=== PATIENT | female | born 1955 | race Caucasian/White ===

== ENCOUNTER 2022-03-31 14:38 | Outpatient (CLI) | payer MEDICARE, BC, SELFPAY ==
--- OUTSIDE RECORDS SUMMARY | 2022-03-31 14:44 | XMS_ITS | Encounter Summary ---
:1955 Author Organization [facility] Address [address] [place] [address] Care Team Providers Name Role Phone Unavailable Primary Care Provider Unavailable Reason for Visit Reason Comments Med Refill Encounter Details Date Type Department Care Team Description 03/18/2022 Refill Department of Radiation Summer Pérez P.A .-C., Med Refill Oncology in [facility] [address] [facility] [address] [place] [address] [place] [address] [phone] Social History Tobacco Use Types Packs/Day Years Used Date Smoking Tobacco: Every Day Cigarettes 0.8 43 S tarted: 08/15/1974; Last attempted to qu it: 03/13/2019 Smokeless Tobacco: Never Alcohol Use Standard Drinks/Week Comments Not Currently 0 (1 standard drink = 0.6 oz pure alcoho l) Alcohol Habits Answer Date Recorded How often do you have a drink containing alcohol? Never 02/21/2019 How many drinks containing alcohol do you have on a typical Not asked day when you are drinking? How often do you have six or more drinks on one occasion? No t asked Comment: Not asked Social Isolation Answer Date Recorded In a typical week, how many times do you More than three josé miguel es a week 02/21/2019 talk on the phone with family, friends, or neighbors? How often do you get together with friends Once a week 02/21/2019 or relatives? How often do you attend orthodoxy or Never 2018 jew services? Do you belong to any clubs or No 02/21/2019 organizations such as orthodoxy groups, unions, fraternal or athletic groups, or school groups? How often do you attend meetings of the Never 02/21/2019 clubs or organizations you belong to? Are you now , , , 02/21/2019 , never or living with a partner? Physical Activity Answer Date Recorded On average, how many days per week do you engage in moderate to 0 days 02/21/2019 strenuous exercise (like walking fast, running, jogging, dancing, swimming, biking, or other activities that cause a light or heavy sweat)? On average, how many minutes do you engage in exercise at th is 0 min 02/21/2019 level? Stress Answer Date Recorded Do you feel stress - tense, restless, nervous, or To some ex tent 02/21/2019 anxious, or unable to sleep at night because your mind is troubled all the time - these days? Financial Resource Strain Answer Date Recorded How hard is it for you to pay for the very basics like Somew hat hard 02/21/2019 food, housing, medical care, and heating? Food Insecurity Answer Date Recorded Within the past 12 months, you worried that your food would Never true 02/21/2019 run out before you got money to buy more. Within the past 12 months, the food you bought just didn't N ever true 02/21/2019 last and you didn't have money to get more. Transportation Needs Answer Date Recorded In the past 12 months, has lack of transportation kept you f rom No 02/21/2019 medical appointments or from getting medications? In the past 12 months, has lack of transportation kept you f rom No 02/21/2019 meetings, work, or getting things needed for daily living? Sex Assigned at Date Recorded Not on file documented as of this encounter Plan of Treatment Upcoming Encounters Date Type Specialty Care Team Description 04/22/2022 Clinical Admitting/Central Communication Scheduling 04/26/2022 Appointment Radiology Mark Eastman M.D., M.S. [address] [place] [phone] 04/26/2022 Office Visit Otorhinolaryngology Roxanne Lanza APRN, C.N.P. [address] [place] [phone] 04/28/2022 Appointment Radiation Oncology Ursula Aguirre M.D. [address] [place] [phone] documented as of this encounter Visit Diagnoses Not on filedocumented in this encounter
--- OUTSIDE RECORDS SUMMARY | 2022-03-31 14:44 | XMS_ITS | Encounter Summary ---
:1955 Author Organization [facility] Address [address] [place] [address] Care Team Providers Name Role Phone Unavailable Primary Care Provider Unavailable Reason for Visit Reason Comments Post-op Outpatient (Routine) - Closed Specialty Diagnoses / Procedures Referred By Contact Refer red To Contact Vascular Surgery Carlotta Beth APRN, [facility] C.N.P., M.S.N. [address] [place] [phone] Referral ID Status Reason Start Date Expiration Date Visits Requ ested Visits Authorized [id number] Closed 11/05/2021 11/05/2022 1 1 Encounter Details Date Type Department Care Team Description 11/13/2021 Office Visit Division of Vascular Remington Beth i, APRN, C.N.P., M.S.N. [address] [place] [phone] Wound Postoperative and Endovascular Ema Lobato APRN, C.N.P., M.S.N. [address] [place] [phone] Exam (Primary Dx) Surgery in [place], [place] [address] [place] [phone] Social History Tobacco Use Types Packs/Day Years [...] or relatives? How often do you attend hinduism or Never 2018 mormonism services? Do you belong to any clubs or No 02/21/2019 organizations such as hinduism groups, unions, fraternal or athletic groups, or [...] on file documented as of this encounter Patient Instructions Patient InstructionsEma Lobato APRN, C.N.P., M.S.N. - 11/13/2021 10:20 AM CDT HYDROFERA DRESSING Remove Hydrofera Blue dressing from the package and apply the dry dressing to the wound. If the wound presents with surrounding erythema (redness) or rolled wound edges, the dressing should be larger than the wound to cover the periwound area. In other wounds, the dressing may be cut to fit the wound bed. Cover with a secondary dressing to prevent displacement and to maintain moisture content. - The first dressing change should occur at 24 hours. Examine the area of the dressing in contact with the wound bed. - If the dressing has retained its blue color where it is in contact with the wound, apply a new dressing and leave in place for up to 72 hours. - If the dressing has turned from blue to white or lightened in color, the dressing should be changed every 24 hours until it retains its blue color. The dressing should be changed if it turns white orupon strikethrough of drainage. - Do not allow the dressing to completely dry out. The dressing should be rehydrated as needed. If the Hydrofera Blue dressing dries out, rehydration with sterile saline or sterile water is recommendedprior to removal. Please send an image of the groin site for our review in approximately 1 week. At that time a memberof the team will reach out to you to discuss further follow-up. Reach out sooner with questions or concerns. A follow-up appointment with your primary care provider (PCP) should be arranged immediately when you return home. This will give you the opportunity to discuss your hospital course and share any important current care needs with your PCP. A copy of the discharge summary has been faxed for their review. Your primary care provider is your long-term healthcare provider, please follow-up with them for any medication refills, home care assistance, or any ongoing chronic medical conditions as needed. At the time of dismissal, pain medication (examples: oxycodone, Dilaudid, Tramadol, [place], etc.) will be prescribed to you if needed. Duration will be determined on a izvr-dj-ypsh basis and will notexceed 2 weeks. Thereafter, you will need to be evaluated by your primary care provider or your surgical team if operative pain persists. Should you need to contact Dr. Eastman or his service in the interim, you may do so through his medical staff services coordinator at during normal business hours of 8 to 5 Tuesday through Tuesday (excluding holidays) or, in an emergency situation, through the [facility] light rail train operator at (Service pager: [phone]). documented in this encounter Progress Notes Ema Lobato APRN, C.Boyd, M.S.N. - 11/13/2021 10:20 AM CDT Obdulia Narayan : 1955 Visit Date: 12/11/21 SUBJECTIVE Obdulia Narayan is a 66 [address] of Dr. Eastman who underwent endovascular abdominal aortic aneurysm repair and left common femoral endarterectomy with bovine pericardial patch angioplasty on 10/22/2021. She was dismissed to home postoperatively. Ms. Narayan returns to the [facility] today for wound assessment. Ms. Narayan has been doing well since her dismissal from the hospital. Left groin incision continuesto be treated with Hydrofera Blue. This has been working well. She denies fever, chills or night sweats. OBJECTIVE VITAL SIGNS There were no vitals filed for this visit. PHYSICAL EXAM Physical Exam Incision: Opening at left groin incision measures 1 cm L x 1 cm W x 0.5 cm D. Wound bed is 100% healthy pink granulation tissue. No tunneling or undermining noted. Small fragment stitch material visible at the 6 o'clock position, not amendable to removal at this time. Nga-wound skin is clean dry and intact. No signs or symptoms concerning for infection. Alert and oriented x3, nontoxic in appearance, resting comfortably. VASCULAR EXAM: Left lower extremity warm and well perfused. Brisk capillary refill. Pulses Exam IMAGING/Diagnostic Studies Pertinent recent imaging and laboratory studies have been reviewed and discussed with the patient. ASSESSMENT / PLAN Ms. Narayan is recovering well postoperatively. Postoperative instructions reviewed. Patient instructed to follow-up with PCP for ongoing medical care and medication adjustments and refills. I have asked her to continue with Hydrofera. She should send us updated images of the groin site in approximately one weeks time. Contact her with ongoing recommendations. Provided with our contact information and she should reach out to us any time with questions or concerns. Ms. Narayan rest understanding, wasin agreement with the plan, and had no further needs at this time. DIAGNOSIS: #1 Wound Postoperative Exam documented in this encounter Plan of Treatment Upcoming Encounters Date Type Specialty Care Team Description 04/22/2022 Clinical Admitting/Central Communication Scheduling 04/26/2022 Appointment Radiology Mark Eastman M.D., M.S. [address] [place] [phone] 04/26/2022 Office Visit Otorhinolaryngology Roxanne Lanza APRN, C.N.P. [address] [place] [phone] 04/28/2022 Appointment Radiation Oncology Ursula Aguirre M.D. [address] [place] [phone] documented as of this encounter Visit Diagnoses Diagnosis Wound Postoperative Exam - Primary documented in this encounter
--- OUTSIDE RECORDS SUMMARY | 2022-03-31 14:44 | XMS_ITS | Encounter Summary ---
:1955 Author Organization [facility] Address [address] [place] [address] Care Team Providers Name Role Phone Unavailable Primary Care Provider Unavailable Encounter Details Date Type Department Care Team Description 11/03/2021 Clinical Communication Division of Vascular and Sanna Newman, Endovascular Surgery in [place], [place] [address] [facility] [address] [place] [phone] Social History Tobacco Use Types Packs/Day Years [...] or relatives? How often do you attend moravian or Never 2018 mormon services? Do you belong to any clubs or No 02/21/2019 organizations such as moravian groups, unions, fraternal or athletic groups, or [...] on file documented as of this encounter Miscellaneous Notes Telephone Encounter - Sanna Newman P.A.-C. - 11/03/2021 1:06 PM CDT Images from the original note were not included. Chief Complaint Telephone call. Patient not seen. History of Present Illness Ms. Narayan is a [address] Eastman who underwent endovascular abdominal aortic aneurysm repair and left common femoral endarterectomy with bovine pericardial patch angioplasty on 10/22/2021. She tolerated the procedure well and was dismissed from the hospital home on 10/24/2021. Ms. Narayan was contacted today in post-hospital follow-up. I spoke with her oqrgaqdn-mc-ycc Darlin over the phone. Ms. Narayan has overall been doing well. She is tolerating a regular diet without nausea or vomiting. She is ambulating without lightheadedness or dizziness. Ms. Narayan forgot to take off the Mepilex border on 10/30/2021. She saw her primary care provider yesterday 11/02/2021, who removed the Mepilex b order. Darlin endorsed that her left incision ???looked gross and wet.?? Her primary care provider did not believe the incision looked infected, however, prescribed antibiotics just in case. Darlin was unable to recall what antibiotic was prescribed. I asked Darlin to send a photo of her left groin incision for review. Ms. Narayan did shower on Tuesday, so it is possible that the Mepilex border got wet on Tuesday causing the dressing and subsequent groin to be very moist/wet. Assessment/Plan Ms. Narayan is doing well postoperatively, however, her left groin incision is not healing well and has opened up in several areas. Recommendations were made to present to the outpatient clinic for further evaluation. Darlin is able to bring her in tomorrow 11/04/2021 for evaluation. Darlin was instructed to place a dry gauze over the incision and change daily or as needed. Darlin expressed understandingand was in agreement with the plan. Sanna Newman PA-C [facility] Department of Vascular and Endovascular Surgery Telephone Encounter - Sanna Newman P.A.-C. - 11/03/2021 1:06 PM CDT ----- Message from Rachel Harper APRN, C.N.P., M.S.N. sent at 10/23/2021 11:57 AM CAREER AND GUIDANCE COUNSELOR ----- Regarding: FU CALL documented in this encounter Plan of Treatment Upcoming Encounters Date Type Specialty Care Team Description 04/22/2022 Clinical Admitting/Central Communication Scheduling 04/26/2022 Appointment Radiology Mark Eastman M.D., M.S. [address] [place] [phone] 04/26/2022 Office Visit Otorhinolaryngology Roxanne Lanza, SHELLFISH MANAGER, C.N.P. [address] [place] [phone] 04/28/2022 Appointment Radiation Oncology Ursula Aguirre M.D. [address] [place] [phone] documented as of this encounter Visit Diagnoses Not on filedocumented in this encounter
--- OUTSIDE RECORDS SUMMARY | 2022-03-31 14:44 | XMS_ITS | Encounter Summary ---
:1955 Author Organization [facility] Address [address] [place] [address] Care Team Providers Name Role Phone Unavailable Primary Care Provider Unavailable Encounter Details Date Type Department Care Team Description 10/29/2021 Hospital Encounter Department of Summer Pérez Hypothy roidism Laboratory Medicine P.Marilou., M.S . Secondary in [place], [address] [place] [address] [facility] [address] [place], [place] [phone] (Work) [phone] Social History Tobacco Use Types Packs/Day Years [...] or relatives? How often do you attend scientology or Never 2018 latter-day services? Do you belong to any clubs or No 02/21/2019 organizations such as scientology groups, unions, fraternal or athletic groups, or [...] on file documented as of this encounter Medications at Time of Discharge Medication Sig Dispensed Refills Start Date End Date acetaminophen (TYLENOL) 500 Take 2 tablets 0 10/13 mg tablet (1,000 mg total) by mouth every 6 (six) hours as needed for pain. albuterol 90 mcg/actuation Inhale 2 puffs 2 0 inhaler (two) times a day. aspirin 81 mg chewable Chew 81 mg every 0 tablet evening. Clare Aspirin atorvastatin (LIPITOR) 20 Take 1 tablet (20 90 tablet 3 11/202110/16/2022 mg tablet mg total) by mouth daily. budesonide-formoteroL Inhale 2 puffs 2 0 (SYMBICORT) 80-4.5 (two) times a day. mcg/actuation inhaler Rinse mouth with water after use to reduce aftertaste and incidence of candidiasis. Do not swallow. cetirizine (ZyrTEC) 10 mg Take 10 mg by 0 tablet mouth every evening. diaper,brief,adult,disposab Bag: (36 each) 36 each 03/16 le (DEPEND UNDERWEAR FOR WOMEN XL) misc famotidine (PEPCID) 20 mg Take 20 mg by 0 tablet mouth at bedtime. fluticasone propionate Administer 1 spray 0 01/13 (FLONASE) 50 mcg/actuation into each nostril nasal spray daily as needed for allergies. hydroCHLOROthiazide Take 25 mg by 11 02/18/2019 (HYDRODIURIL) 25 mg tablet mouth every evening. losartan (COZAAR) 100 mg Take 100 mg by 0 020 tablet mouth every evening. oxyCODONE (ROXICODONE) 5 mg Take 1 tablet (5 8 tablet 0 immediate release mg total) by mouth tabletIndications: Acute every 4 (four) Pain hours as needed for moderate pain or score 4-6 of 10 Indication: Acute Pain. polyethylene glycol Take 1 packet by 0 10/23/2021 (MIRALAX) 17 gram powder mouth daily as packet needed for constipation. Dissolve each 17 g dose in 240 mLs (8 ounces) of beverage. POTASSIUM ORAL Take 99 mg by 0 mouth every evening. sennosides-docusate sodium Take 1 tablet by 0 06/2022 (SENOKOT-S) 8.6-50 mg per mouth at bedtime tablet as needed for constipation. simvastatin (ZOCOR) 20 mg Take 20 mg by 0 tablet mouth at bedtime. levothyroxine (SYNTHROID, Take 1 tablet (50 30 tablet 1 10/202101/14/2022 LEVOTHROID) 50 mcg tablet mcg total) by mouth every morning before breakfast. documented as of this encounter Plan of Treatment Upcoming Encounters Date Type Specialty Care Team Description 04/22/2022 Clinical Admitting/Central Communication Scheduling 04/26/2022 Appointment Radiology Mark Eastman M.D., M.S. [address] [place] [phone] 04/26/2022 Office Visit Otorhinolaryngology Roxanne Lanza APRN, C.NDori [address] [place] [phone] 04/28/2022 Appointment Radiation Oncology Ursula Aguirre M.D. [address] [place] [phone] documented as of this encounter Procedures Procedure Name Priority Date/Time Associated Diagnosis Comme nts ME MICROSOMAL AB Routine 10/30/2021 7:09 PM Resul ts for this EA/TPO CDT procedure are i n the results section. ME T4 FREE Routine 10/29/2021 12:47 Results for this PM CDT procedure are i n the results section. THYROID FUNCTION Routine 10/29/2021 12:47 Hypothyroidism Resul ts for this CASCADE, S PM CDT Secondary procedure are i n the results section. documented in this encounter Results Thyroperoxidase (TPO) Antibodies, Serum (10/30/2021 7:09 PM CDT) Patholo gist Method Time Signature Thyroperoxidase Ab, 1.1 <9.0 11/02/2021 DTL S IU/mL 8:15 AM CDT Specimen Anatomical Collection Method Collection Time Receive d Time (Source) Location / / Volume Laterality Blood 10/30/2021 7:09 PM 2 1:57 CDT PM CDT Summer Pérez P.A.-C., M.S. LAB BLOOD NON ADD-ON Performing Organization Address City/State/ZIP Code Phon e Number [facility] - [address] [place] [address] [phone] [facility] [place] [address] Laboratories-[employer] [facility] 200 [facility] T4 (Thyroxine), Free, Serum (10/29/2021 12:47 PM CDT) P athologist Signature T4 (Thyroxine), 1.1 0.9 - 1.7 10/29/2021 OWAT Free, S ng/dL 5:36 PM CDT Comment: Biotin has been identified by the tanesha laureano as a potential interfering substance. ??Higher concentr ations of biotin may be found in multivitamins, hair/nail supple ments, and workout supplements. ??If the result does not ma tch clinical observations, repeat testing after patient refrains fr om the use of supplements for at least 12 hours. Specimen Anatomical Collection Method Collection Time Receive d Time (Source) Location / / Volume Laterality Blood 10/29/2021 12:47 10/29/2021 3:29 PM CDT PM CDT Summer Pérez P.A.-C., M.S. LAB BLOOD ADD-ON Performing Organization Address City/[facility]/ZIP Code Phon e Number [facility] [address] [place] [address] [place] [address] System in [place] [address] [place] [address] (ABNORMAL) Thyroid Function [place] (10/29/2021 12:47 PM CDT) P athologist Signature TSH, Sensitive 7.0 (H) 0.3 - 4.2 10/29/2021 OW[place] mIU/L 5:10 PM CDT Specimen Anatomical Collection Method Collection Time Receive d Time (Source) Location / / Volume Laterality Blood (Blood, 10/29/2021 12:47 10/29/2021 3:29 Venous) PM CDT PM CDT Summer Pérez P.A.-C., M.S. LAB BLOOD ADD-ON Performing Organization Address City/[facility]/ZIP Code Phon e Number [facility]- [address] [place] [phone] [place] [address] System in [address] documented in this encounter Visit Diagnoses Diagnosis Hypothyroidism Secondary documented in this encounter
--- OUTSIDE RECORDS SUMMARY | 2022-03-31 14:44 | XMS_ITS | Clinical Summary ---
:1955 Author Organization [facility] Address [address] [place] [address] Care Team Providers Name Role Phone Unavailable Primary Care Provider Unavailable Source Comments Patient records contain information from all sites at [facility]. For routine questions regarding patient records, call [phone] during business hours, M-F 8:00 AM - 5:00 PM Central Time. Record requests for emergency care only can be directed to [phone] at any time.[facility] Allergies Active Allergy Reactions Severity Noted Date Comments Penicillins Rash High 02/21/2019 Medications Medication Sig Dispensed Refills Start Date End Date Status hydroCHLOROthiazide Take 25 mg by 11 02/18/2019 Active (HYDRODIURIL) 25 mg mouth every tablet evening. aspirin 81 mg chewable Chew 81 mg every 0 Active tablet evening. Clare Aspirin diaper,brief,adult,dispos Bag: (36 each) 36 each 1 9 Active able (DEPEND UNDERWEAR FOR WOMEN XL) misc losartan (COZAAR) 100 mg Take 100 mg by 0 01/08/2020 Active tablet mouth every evening. cetirizine (ZyrTEC) 10 mg Take 10 mg by 0 Active tablet mouth every evening. POTASSIUM ORAL Take 99 mg by 0 A ctive mouth every evening. albuterol 90 Inhale 2 puffs 2 0 Active mcg/actuation inhaler (two) times a day. budesonide-formoteroL Inhale 2 puffs 2 0 Active (SYMBICORT) 80-4.5 (two) times a mcg/actuation inhaler day. Rinse mouth with water after use to reduce aftertaste and incidence of candidiasis. Do not swallow. famotidine (PEPCID) 20 mg Take 20 mg by 0 Active tablet mouth at bedtime. fluticasone propionate Administer 1 0 01/13/2019 Active (FLONASE) 50 spray into each mcg/actuation nasal spray nostril daily as needed for allergies. atorvastatin (LIPITOR) 20 Take 1 tablet 90 tablet 3 10/16/2021 Active mg tablet (20 mg total) by 3 mouth daily. simvastatin (ZOCOR) 20 mg Take 20 mg by 0 Active tablet mouth at bedtime. oxyCODONE (ROXICODONE) 5 Take 1 tablet (5 8 tablet 0 10/24/19 22 Active mg immediate release mg total) by tabletIndications: Acute mouth every 4 Pain (four) hours as needed for moderate pain or score 4-6 of 10 Indication: Acute Pain. Additional Information Patient not taking. Reported on 11/05/2021 polyethylene glycol (MIRALAX) Take 1 packet by mouth daily as 0 10/23/2021 Active 17 gram powder packet needed for constipation. Dissolve each 17 g dose in 240 mLs (8 ounces) of beverage. Additional Information Patient not taking. Reported on 11/05/2021 sennosides-docusate sodium Take 1 tablet by mouth at 0 10/23/2021 Active (SENOKOT-S) 8.6-50 mg per tablet bedtime as needed for constipation. Additional Information Patient not taking. Reported on 11/05/2021 acetaminophen Take 2 tablets 0 10/23/2021 Active (TYLENOL) 500 mg (1,000 mg total) tablet by mouth every 6 (six) hours as needed for pain. sulfamethoxazole-trime Take 1 tablet by 0 11/02/2021 Active thoprim (BACTRIM DS) mouth 2 (two) 800-160 mg per tablet times a day. 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 10/22 Aneurysm Abdominal Aortic Without Rupture 09/15/2021 Overview: Added automatically from request for sultana low [id number] Dysphonia 06/12/2020 Dysphagia 08/02/2019 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 03/04/2022 Clinical Radiation Oncology Summer Pérez, Communication P.A.-C., M.S. 02/26/2022 Hospital Encounter Laboratory Summer Pérez, Malignan t Neoplasm Of Supraglottic (HCC); Medicine P.A.PatsyC., M.S. 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 01/27/2022 Hospital Encounter Radiation Oncology Timothy, Mal ignant Neoplasm Of Supraglottic (HCC) (Primary Dx); Ursula Bacon, Hypothyroidism Secondary M.D. 01/21/2022 Clinical Radiation Oncology Summer Pérez, Communication P.A.-C., M.S. 01/19/2022 Hospital Encounter Laboratory Summer Pérez, Hypothyr oidism Medicine P.A.-C., M.S. Secondary 01/14/2022 Refill Radiation Oncology Summer Pérez, Med Refi ll P.A.-C., M.S. from Last 3 Months Social History Tobacco Use Types Packs/Day Years [...] or relatives? How often do you attend hoahaoism or Never 2018 lutheran services? Do you belong to any clubs or No 02/21/2019 organizations such as hoahaoism groups, unions, fraternal or athletic groups, or [...] Assigned at Date Recorded Not on file Last Filed Vital Signs Vital Sign Reading Time Taken Comments Blood Pressure 160/71 01/27/2022 10:22 AM CDT Pulse 85 01/27/2022 10:22 AM CDT Temperature 36.4 ??C (97.5 ??F) 01/27/2022 10:22 AM CDT Respiratory Rate 17 10/24/2021 12:05 PM SONAR TECHNICIAN Oxygen Saturation 96% 10/24/2021 12:04 PM SONAR TECHNICIAN Inhaled Oxygen Concentration - - Weight 83.1 kg (183 lb 3.2 oz) 01/27/2022 10:22 AM CDT Height 164 cm (5' 4.57) 10/22/2021 9:46 AM SONAR TECHNICIAN Body Mass Index 30.9 10/22/2021 9:46 AM SONAR TECHNICIAN Plan of Treatment Upcoming Encounters Date Type Specialty Care Team Description 04/22/2022 Clinical Admitting/Central Communication Scheduling 04/26/2022 Appointment Radiology Mark Eastman M.D., M.S. [address] [place] [address] [phone] 04/26/2022 Office Visit Otorhinolaryngology Roxanne Lanza, EXECUTIVE VICE PRESIDENT, C.N.P. [address] [place] [address] [phone] 04/28/2022 Appointment Radiation Oncology Ursula Aguirre M.D. [address] [place] [address] [phone] Health Maintenance Due Date Last Done Comments Bone Density Scan (Osteoporosis 1955 Screen) CT Colonography 1955 Cervical Cancer Screening 1955 Cologuard 1955 Colonoscopy 1955 Colorectal Cancer Screening 1955 Diabetic Office Visit with Foot 1955 Exam Dilated Eye Exam 1955 FIT 1955 Hemoglobin A1C 1955 Hepatitis C Screening 1955 Tobacco Cessation counseling 1955 Urine Microalbumin 1955 Pneumococcal vaccine (65+ years) 1962 (1 - PCV) DTaP,Tdap,and Td Vaccines (1 - 1975 Tdap) Zoster Vaccines (1 of 2) 1975 Mammogram 04/24/2015 04/24/2014, 04/17/2013 Lung Cancer Screening 02/22/2020 02/21/2019 COVID-19 Vaccine (3 - Pfizer risk 02/17/2021 01/20/2021, series) Depression Screening (Annual 08/15/2021 PHQ-2) Office Visit for Blood Pressure 01/16/2022 10/16/2021 Check / Re-check Influenza Vaccine (#1) 2022 06/20/2018, 06/24/2011 Creatinine Level 10/23/2022 10/23/2021, 09/22/2021, 09/15/2021, Additional history exists Potassium Level 10/23/2022 10/23/2021, 09/22/2021, 04/23/2019, Additional history exists Sodium Level 10/23/2022 10/23/2021, 10/22/2021, 09/22/2021, Additional history exists Thyroid Stimulating Hormone (TSH) 02/26/2023 02/26/2022, , test for thyroid function 10/29/2021, Additional history exists Fasting Lipid Panel 09/22/2026 09/22/2021 Fall Risk Screen (Annual) Completed 10/22/2021 Medical Devices Implanted Type Area Computing Consultant Device Identifier Shelf Model / Expiration Serial / Date Lot Breast Other Breast Right: Other Breast Clp Hrzn Ti 6 Clp David - [id number] Hardware ASCENDANT [id number] [id number] 06/21/2026 [id number] / Implanted: Qty: 2 on 10/22/2021 by Mark Bartlett M.D., M.S. at [facility] e.g. / pins/screws [id number] /rods Grft Vsc Bov 0.8x8 - [id number] Mesh or Synovis 04/29/2026 [id number] / Implanted: Qty: 1 on 10/22/2021 by Mark Bartlett M.D., M.S. at [facility] Patch / [id number] Grft Exc Aaa Ext 12x12 - [id number] - [id number] Vascular [place] 01/03/2023 [id number] / Implanted: Qty: 1 on 10/22/2021 by Mark Bartlett M.D., M.S. at [facility] Graft [id number] / Explanted Type Area Computing Consultant Device Shelf Model / Identifier Expiration Date Ser ial / Lot Mesh Or Patch Mesh or Abdomen Patch Procedures Procedure Name Priority Date/Time Associated Diagnosis Comme nts THYROID-STIMULATING Routine 02/26/2022 9:43 AM Malignant Neopl asm Of Results for this HORMONE-SENSITIVE CDT Supraglottic ( HCC) procedure are in (S-TSH) Hypothyroidism the results Secondary section. AL T4 FREE Routine 01/19/2022 9:42 AM Results f or this CDT procedure are i n the results section. AL MICROSOMAL AB Routine 01/19/2022 9:42 AM Resul ts for this EA/TPO CDT procedure are i n the results section. THYROID FUNCTION Routine 01/19/2022 9:42 AM Hypothyroidism Res ults for this CASCADE, S CDT Secondary procedure are i n the results section. from Last 3 Months Results (ABNORMAL) S-TSH (Thyroid-Stimulating Hormone - Sensitive) (02/26/2022 9:43 AM CDT) P athologist Signature TSH, Sensitive 5.7 (H) 0.3 - 4.2 02/26/2022 OWAT mIU/L 11:40 AM CDT Specimen Anatomical Collection Method Collection Time Receive d Time (Source) Location / / Volume Laterality Blood (Blood, 02/26/2022 9:43 AM 02/27/20 Venous) CDT 11:03 AM CDT Summer Pérez P.A.-C., M.S. LAB BLOOD ADD-ON Performing Organization Address City/State/ZIP Code Phon e Number [facility]- [address] [place] [address] [place] [address] System in [place] [address] Thyroperoxidase (TPO) Antibodies, Serum (01/19/2022 9:42 AM CDT) Patholo gist Method Time Signature Thyroperoxidase Ab, 1.3 <9.0 01/20/2022 DTL S IU/mL 9:05 AM CDT Specimen Anatomical Collection Method Collection Time Receive d Time (Source) Location / / Volume Laterality Blood 01/19/2022 9:42 AM 2 6:49 CDT AM CDT Summer Pérez P.A.-C., M.S. LAB BLOOD NON ADD-ON Performing Organization Address City/State/ZIP Code Phon e Number [facility] - [address] [place], [place] [address] [facility] [place] [address] [facility] 200 [facility] T4 (Thyroxine), Free, Serum (01/19/2022 9:42 AM CDT) P athologist Signature T4 (Thyroxine), 1.1 0.9 - 1.7 01/19/2022 OWAT Free, S ng/dL 1:41 PM CDT Comment: Biotin has been identified by the tanesha laureano as a potential interfering substance. Higher concentrations of biotin may be found in multivitamins, carmona ir/nail supplements, and workout supplements. If the result d oes not match clinical observations, repeat testing af ter patient refrains from the use of supplements for at least 12 hours. Specimen Anatomical Collection Method Collection Time Receive d Time (Source) Location / / Volume Laterality Blood 01/19/2022 9:42 AM 2 CDT 11:06 AM CDT Summer Pérez P.A.-C., M.S. LAB BLOOD ADD-ON Performing Organization Address City/State/ZIP Code Phon e Number [facility]- [address] [place] [address] [place] [address] System in [place] [address] (ABNORMAL) Thyroid Function [place] (01/19/2022 9:42 AM CDT) P athologist Signature TSH, Sensitive 19.6 (H) 0.3 - 4.2 01/19/2022 OW[place] mIU/L 12:52 PM CDT Specimen Anatomical Collection Method Collection Time Receive d Time (Source) Location / / Volume Laterality Blood (Blood, 01/19/2022 9:42 AM 01/20/20 22 Venous) CDT 11:06 AM CDT Summer Pérez P.A.-C., M.S. LAB BLOOD ADD-ON Performing Organization Address City/State/ZIP Code Phon e Number [facility]- [address] [place] [address] [place] [address] System in [place] [address] from Last 3 Months Insurance Payer Benefit Plan Subscriber ID Effective Phone Address Typ e / Group Dates MEDICARE MEDICARE A [id number] 2021-Pres [address] [place] [address] BLUE CROSS BCBS BLUE [id number] 2021-Prese ATTN: Andrea molina HMO BLUE SHIELD PLUS HMO nt CONSUMER [facility] [address] [address] [place] [address] Advance Directives For more information, please contact: [phone] Latest Code Status on File Code Status Date Activated Date Inactivated Comments Full Code 10/22/2021 8:25 PM 10/24/2021 3:37 PM Full Code: Discussed Full Code 10/22/2021 10:56 AM 10/22/2021 8:25 PM Full Code: Discussed
--- OUTSIDE RECORDS SUMMARY | 2022-03-31 14:44 | XMS_ITS | Encounter Summary ---
:1955 Author Organization [facility] Address [address] [place] [address] Care Team Providers Name Role Phone Unavailable Primary Care Provider Unavailable Encounter Details Date Type Department Care Team Description 11/05/2021 Ancillary Procedure Department of Vascular Surgery Social History Tobacco Use Types Packs/Day Years [...] or relatives? How often do you attend latter day or Never 2018 amish services? Do you belong to any clubs or No 02/21/2019 organizations such as latter day groups, unions, fraternal or athletic groups, or [...] Appointment Radiology Mark Eastman M.D., M.S. 200 [place] [phone] 04/26/2022 Office Visit Otorhinolaryngology Roxanne Lanza APRN, C.N.P. [address] [place] [address] [phone] 04/28/2022 Appointment Radiation Oncology Ursula Aguirre M.D. 200 [place] [phone] documented as of this encounter Procedures Procedure Name Priority Date/Time Associated Diagnosis Comme nts VASCULAR SURGERY Routine 11/05/2021 3:10 PM Resul ts for this IMAGE EXAM CDT procedure are i n the results section. documented in this encounter Results Groin-Vascular Surgery Image Exam (11/05/2021 3:10 PM CDT) Specimen (Source) Anatomical Collection Method Collection Time Re ceived Time Location / / Volume Laterality 11/05/2021 3:08 PM CDT Narrative [facility] - 11/05/2021 3:10 PM CDT This order has been created and auto-finalized to support the import of images acquired without order. The clini maureen documentation to support these images can be found on the encounter kosta t produced images. Provider Not In System IMG NON RAD IMAGING PROCEDUR ES Performing Organization Address City/State/ZIP Code Phon e Number [facility] NA documented in this encounter Visit Diagnoses Not on filedocumented in this encounter
--- OUTSIDE RECORDS SUMMARY | 2022-03-31 14:44 | XMS_ITS | Encounter Summary ---
:1955 Author Organization [facility] Address [address] [place] [address] Care Team Providers Name Role Phone Unavailable Primary Care Provider Unavailable Reason for Referral Outpatient (Routine) - Closed Specialty Diagnoses / Procedures Referred By Contact Refer red To Contact Vascular Surgery Sanna Newman P.A. -C. [facility] [address] [place] [address] [phone] Referral ID Status Reason Start Date Expiration Date Visits Requ ested Visits Authorized [id number] Closed 11/03/2021 11/03/2022 1 1 Scheduling Instructions 2pm ideally Encounter Details Date Type Department Care Team Description 11/03/2021 Orders Only Division of Vascular and Sanna Newman, Endovascular Surgery in P.Libby-Teresa [place], [place] [address] [place] [address] [address] [place] [phone] (Wo rk) Social History Tobacco Use Types Packs/Day Years [...] or relatives? How often do you attend hindu or Never 2018 orthodox services? Do you belong to any clubs or No 02/21/2019 organizations such as hindu groups, unions, fraVator.TV or athletic groups, or school groups? How [...] Appointment Radiology Mark Eastman M.D., M.S. [address] [place] [phone] 04/26/2022 Office Visit Otorhinolaryngology Roxanne Lanza APRN, C.N.P. [address] [place] [phone] 04/28/2022 Appointment Radiation Oncology Ursula Aguirre M.D. [address] [place] [phone] Scheduled Referrals Name Type Priority Associated Diagnoses Order S chedule Vascular Surgery Outpatient Referral Routine Expe cted: Post Op (clinic) 11/04/2021 (Approximate), Expires: 02/03/2023 documented as of this encounter Visit Diagnoses Not on filedocumented in this encounter
--- OUTSIDE RECORDS SUMMARY | 2022-03-31 14:44 | XMS_ITS | Encounter Summary ---
:1955 Author Organization [facility] Address [address] [place] [address] Care Team Providers Name Role Phone Unavailable Primary Care Provider Unavailable Encounter Details Date Type Department Care Team Description 03/04/2022 Clinical Communication Department of Radiation Kareem Pérez, Oncology in [place], P.A.-Estefanía., .S. [place] [address] [place] [address] [address] [place] [address] [phone] Social History Tobacco Use Types Packs/Day Years [...] or relatives? How often do you attend muslim or Never 2018 sabianism services? Do you belong to any clubs or No 02/21/2019 organizations such as muslim groups, unions, fraternal or athletic groups, or [...] Appointment Radiology Mark Eastman M.D., M.S. [address] [place] [phone] 04/26/2022 Office Visit Otorhinolaryngology Roxanne Lanza, FORKLIFT MATERIAL HANDLER, C.N.P. [address] [place] [address] [phone] 04/28/2022 Appointment Radiation Oncology Ursula Aguirre M.D. 200 [place] [phone] documented as of this encounter Visit Diagnoses Not on filedocumented in this encounter
--- OUTSIDE RECORDS SUMMARY | 2022-03-31 14:44 | XMS_ITS | Encounter Summary ---
:1955 Author Organization [facility] Address [address] [place] [address] Care Team Providers Name Role Phone Unavailable Primary Care Provider Unavailable Encounter Details Date Type Department Care Team Description 01/19/2022 Hospital Encounter Department of Summer Pérez Hypothy roidism Laboratory Medicine P.Marilou., M.S . Secondary in [place], [address] [place] [address] [address] [facility] [phone] [place], [place] [phone] (Work) [phone] Social History Tobacco Use Types Packs/Day Years [...] or relatives? How often do you attend baptist or Never 2018 roman catholic services? Do you belong to any clubs or No 02/21/2019 organizations such as baptist groups, unions, fraternal or athletic groups, or [...] mg by 0 tablet mouth at bedtime. sulfamethoxazole-trimethopr Take 1 tablet by 0 im (BACTRIM DS) 800-160 mg mouth 2 (two) per tablet times a day. Euthyrox 50 mcg tablet TAKE 1 TABLET BY 30 tablet 0 022 02/12/2022 MOUTH ONCE DAILY IN THE MORNING BEFORE BREAKFAST documented as of this encounter Plan of Treatment Upcoming Encounters Date Type Specialty Care Team Description 04/22/2022 Clinical Admitting/Central Communication Scheduling 04/26/2022 Appointment Radiology Mark Eastman M.D., M.S. [address] [place] [phone] 04/26/2022 Office Visit Otorhinolaryngology Roxanne Lanza APRN, C.N.P. [address] [place] [phone] 04/28/2022 Appointment Radiation Oncology Ursula Aguirre M.D. [address] [place] [address] [phone] documented as of this encounter Procedures Procedure Name Priority Date/Time Associated Diagnosis Comme nts [place] MICROSOMAL AB Routine 01/19/2022 9:42 AM Resul ts for this EA/TPO CDT procedure are i n the results section. [place] T4 FREE Routine 01/19/2022 9:42 AM Results f or this CDT procedure are i n the results section. THYROID FUNCTION Routine 01/19/2022 9:42 AM Hypothyroidism Res ults for this CASCADE, S CDT Secondary procedure are i n the results section. documented in this encounter Results T4 (Thyroxine), Free, Serum (01/19/2022 9:42 AM CDT) P athologist Signature T4 (Thyroxine), 1.1 0.9 - 1.7 01/19/2022 OWAT Free, S ng/dL 1:41 PM CDT Comment: Biotin has been identified [facility] as a potential interfering substance. Higher concentrations [...] Organization Address City/State/ZIP Code Phon e Number [facility]- [address] [place] [address] [place] [address] System in [place] [address] Thyroperoxidase (TPO) Antibodies, Serum (01/19/2022 9:42 AM CDT) Patholo gist Method Time Signature Thyroperoxidase Ab, 1.3 <9.0 01/20/2022 DTL S IU/mL 9:05 AM CDT Specimen Anatomical Collection Method Collection Time Receive d Time (Source) Location / / Volume Laterality Blood 01/19/2022 9:42 AM 6:49 CDT AM CDT Summer Pérez P.A.-C., M.S. LAB BLOOD NON ADD-ON Performing Organization Address City/[facility]/ZIP Code Phon e Number [facility] - 200 [place], [place] [address] [facility] [place] [address] Laboratories-[facility] 200 [facility] (ABNORMAL) Thyroid Function [place] (01/19/2022 9:42 AM CDT) P athologist Signature TSH, Sensitive 19.6 (H) 0.3 - 4.2 01/19/2022 OW[place] mIU/L 12:52 PM CDT Specimen Anatomical Collection Method Collection Time Receive d Time (Source) Location / / Volume Laterality Blood (Blood, 01/19/2022 9:42 AM 01/20/20 22 Venous) CDT 11:06 AM CDT Summer Pérez P.A.-C., M.S. LAB BLOOD ADD-ON Performing Organization Address City/State/ZIP Code Phon e Number [facility]- [address] [place] [address] [place] [address] System in [place] [address] documented in this encounter Visit Diagnoses Diagnosis Hypothyroidism Secondary documented in this encounter
--- OUTSIDE RECORDS SUMMARY | 2022-03-31 14:44 | XMS_ITS | Encounter Summary ---
:1955 Author Organization [facility] Address [address] [place] [id number] Care Team Providers Name Role Phone Unavailable Primary Care Provider Unavailable Reason for Referral Outpatient (Routine) - Closed Specialty Diagnoses / Procedures Referred By Contact Refer red To Contact Vascular Surgery Carlotta Beth APRN, [facility], M.S.N. [address] [place] [phone] Referral ID Status Reason Start Date Expiration Date Visits Requ ested Visits Authorized [id number] Closed 11/05/2021 11/05/2022 1 1 Reason for Visit Reason Comments Post-op Outpatient (Routine) - Closed Specialty Diagnoses / Procedures Referred By Contact Tyler agarwal To Contact Vascular Surgery Sanna Newman P.A. -C. [address] [phone] Referral ID Status Reason Start Date Expiration Date Visits Requ ested Visits Authorized [id number] Closed 11/03/2021 11/03/2022 1 1 Encounter Details Date Type Department Care Team Description 11/05/2021 Office Visit Division of Vascular Mary Newman P.A.-C. [address] [place] [phone] Wound Postoperative and Endovascular Carlotta Beth APRN, C.N.P., M.S.N. [address] [place] [phone] Exam (Primary Dx) Surgery in [place], [place] [address] [place] [phone] Social History Tobacco Use Types Packs/Day Years [...] do you attend orthodoxy or Never 2018 catholic services? Do you belong to any [...] as of this encounter Patient Instructions Patient InstructionsCarlotta Beth APRN, C.N.P., M.S.N. - 11/05/2021 2:30 PM CDT HYDROFERA DRESSING Remove Hydrofera Blue dressing from the package and thoroughly moisten it with sterile saline or sterile water. Once thoroughly moistened, squeeze out the excess liquid and apply the dressing to the wound. If the wound presents with surrounding erythema (redness) or rolled wound edges, the dressing should be larger than the wound to cover the periwound area. In other wounds, the dressing may be cut to fit the wound bed. Cover with a secondary dressing to prevent displacement and to maintain moisturecontent. - The first dressing change should occur at 24 hours. Examine the area of the dressing in contact with the wound bed. - If the dressing has retained its blue color where it is in contact with the wound, apply a new dressing and leave in place for up to 48 hours. - If the dressing has turned [...] or sterile water is recommendedprior to removal. Should you need to contact Dr. Eastman or his service, you may do so through his medical secretaryat during normal business hours of 8 to 5 Tuesday through Tuesday (excluding holidays) or, in an emergency situation, through the [facility] laundry operator wash room at (Service pager: [phone]). Watch left groin closely for any signs or symptoms of infection such as increased redness, drainage,or fevers. Complete previous antibiotic course of Bactrim. Return on TuesdayNovember 13 for wound evaluation. documented in this encounter Progress Notes Carlotta Beth APRN, C.N.P., M.S.N. - 11/05/2021 2:30 PM CDT Obdulia Narayan : 1955 Visit Date: 11/05/21 SUBJECTIVE Obdulia Narayan is a 66 y[address] of [address]. Eastman who underwent endovascular abdominal aortic aneurysm repair and left common femoral endarterectomy with bovine pericardial patch angioplasty on 10/22/2021. She was dismissed to home postoperatively. Ms. Narayan returns to the [facility] today for wound assessment. Ms. Parisi's daughter in-law, Darlin contacted our team with concerns of Mr. 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 Left groin was noted to have some drainage and her local provider started her on Bactrim which she started yesterday. Ms. Narayan denies any fevers or chills. She has been keeping the wound dry with a t shiirt tucked in groin. OBJECTIVE VITAL SIGNS There were no vitals filed for this visit. PHYSICAL EXAM Pulmonary Effort: Pulmonary effort is normal. Abdominal Palpations: Abdomen is soft. Skin General: Skin is warm and dry. Capillary Refill: Capillary refill takes less than 2 seconds. Neurological Mental Status: She is alert. Mental status is at baseline. Psychiatric Mood and Affect: Mood normal. Pictures obtained with Ms. Sofia consent. Extremities: No edema to bilateral lower extremities. Incision: Left groin with yellow fibrin to middle of groin. Small erythema surrounding left groin wound which appears to be superficially irritated due to adhesive. No odor or drainage noted. Open areameasures approximately 1 cm D x 1 cm W x .75 Deep. VASCULAR EXAM: Pulses Exam Left DP with signal IMAGING/Diagnostic Studies Pertinent recent imaging and laboratory studies have been reviewed and discussed with the patient. ASSESSMENT / PLAN Ms. Narayan is recovering well postoperatively. Left groin was gently debrided. Fibrin was easily removed. Ms. Narayan and her daughter in law were instructed to apply hydrophera blue. They are to change in 24 hours and then again in 48 if it remains blue. Further instructions were provided on after visit summary. They were advised to monitor the wound closely for any increased signs or symptoms of infection. I advised her to complete the oral antibiotic does her local provider gave her. I reiterated for them tocontact Dr. Eastman's team hould any further questions or concerns arise. She does use the portal and is able to send us pictures if needed. Otherwise she will follow-up with us for re evaluation on 11/13/2021. DIAGNOSIS: documented in this encounter Plan of Treatment Upcoming Encounters Date Type Specialty Care Team Description 04/22/2022 Clinical Admitting/Central Communication Scheduling 04/26/2022 Appointment Radiology Mark Eastman M.D., M.S. [address] [place] [phone] 04/26/2022 Office Visit Otorhinolaryngology Roxanne Lanza APRN, C.N.P. [address] [place] [phone] 04/28/2022 Appointment Radiation Oncology Ursula Aguirre M.D. [address] [place] [phone] Scheduled Referrals Name Type Priority Associated Diagnoses Order S chedule Vascular Surgery Outpatient Referral Routine Expe cted: Post Op (clinic) 11/13/2021, Expires: 02/05/2023 documented as of this encounter Visit Diagnoses Diagnosis Wound Postoperative Exam - Primary documented in this encounter
--- OUTSIDE RECORDS SUMMARY | 2022-03-31 14:44 | XMS_ITS | Encounter Summary ---
:1955 Author Organization [facility] Address [address] [place] [address] Care Team Providers Name Role Phone Unavailable Primary Care Provider Unavailable Reason for Visit Auth/Cert Specialty Diagnoses / Procedures Referred By Contact Refer red To Contact Diagnoses Aneurysm Abdominal Aortic Without Rupture (HCC) Aneurysm Abdominal Aortic Without Rupture (HCC) [I71.4]. Procedures IR ABDOMEN AORTA STENT GRAFT, Proceed as indicated. IR IMAGING. Referral ID Status Reason Start Date Expiration Date Visits Requ ested Visits Authorized [id number] 1 1 Encounter Details Date Type Department Care Team Description 10/22/2021 - Hospital [facility] Tarun, Aneurysm Thorac oabdominal Aortic Without Rupture (HCC) (Primary Dx); 10/24/2021 Encounter Hospital, [facility], Aneurysm Abd ominal Aortic Without Rupture (HCC); [facility], Blossom Chu MShitalS. Aneurysm Abdominal Aortic Without Ruptur e (HCC) [facility], [address] [facility] Eighth [place], [place] [address] [place] [id number] [place], [place] [phone] (Work) [phone] Social History Tobacco Use Types Packs/Day Years [...] or relatives? How often do you attend mosque or Never 2018 jew services? Do you belong to any clubs or No 02/21/2019 organizations such as mosque groups, unions, fraDormir or athletic groups, or school groups? How [...] on file documented as of this encounter Last Filed Vital Signs Vital Sign Reading Time Taken Comments Blood Pressure 144/67 10/24/2021 12:05 PM MONEY MARKET CLERK Pulse 97 10/24/2021 12:04 PM MONEY MARKET CLERK Temperature 37.1 ??C (98.8 ??F) 10/24/2021 12:04 PM MONEY MARKET CLERK Respiratory Rate 17 10/24/2021 12:05 PM MONEY MARKET CLERK Oxygen Saturation 96% 10/24/2021 12:04 PM MONEY MARKET CLERK Inhaled Oxygen Concentration - - Weight 83.6 kg (184 lb 4.9 oz) 10/24/2021 3:30 AM MONEY MARKET CLERK Height 164 cm (5' 4.57) 10/22/2021 9:46 AM MONEY MARKET CLERK Body Mass Index 31.08 10/22/2021 9:46 AM MONEY MARKET CLERK documented in this encounter Discharge Summaries Sanna Newman P.A.-C. - 10/24/2021 11:59 AM CST DISCHARGE SUMMARY BRIEF OVERVIEW Hospital: [facility] Discharge Provider: Mark Mcneil M.D. Primary Team: [facility] Vascular Surgery - [facility] No primary care provider on file. Primary Care Provider Phone Number: None Primary Care Provider Fax Number: None Other Providers: None Admission Date: 10/22/2021 Discharge Date: 10/24/2021 PRINCIPAL DIAGNOSIS Aneurysm Abdominal Aortic Without Rupture (HCC) SECONDARY DIAGNOSES Principal Problem: Aneurysm Abdominal Aortic Without Rupture (HCC) Active Problems: Malignant Neoplasm Of Supraglottic (HCC) Dysphagia Dysphonia Stenosis Carotid Artery Left Nicotine Dependence Cigarettes In Remission Hyperlipidemia Hypertension Essential Primary Anxiety Chronic Obstructive Pulmonary Disease (HCC) Diabetes Mellitus Type 2 (HCC) Obesity Body Mass Index 30-39.9 Adult Gastroesophageal Reflux Disease 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 * Surgery Information This Encounter Past Procedures (10/24/2020 to Today) Date Procedures Providers Location 10/22/2021 Endovascular abdominal aortic aneurysm repair with [place] endoprosthesis. Ultrasound-guided bilateral common femoral artery access., IR IMAGING., Left common femoral endarterectomy with bovine pericardial patch angioplasty Mark Mcneil M.D., M.S.Tai Colunga, M.B.B.S. [facility] ROMB OR DISCHARGE DISPOSITION Home or Self Care [1] ACTIVE ISSUES REQUIRING FOLLOW-UP A follow-up appointment with your primary care [...] dismissal, pain medication (examples: oxycodone, Dilaudid, Tramadol, [place], etc.) will be prescribed to you if needed. Duration will be determined on a zklc-ot-ceth basis and will notexceed 2 weeks. Thereafter, you will need to be evaluated by your primary care provider or your surgical team if operative pain persists. You will return in 3-4 months at which time you will have a CT angiogram per EVAR protocol prior to your appointment with Dr. Mcneil. These appointments will be mailed to your home. Should you not receive them or if you need to reschedule your appointment, please contact the vascular scheduling office by calling [phone]. Should you need to contact Dr. Mcneil or his service in the interim, you may do so through his biomedical analytical scientist at during normal business hours of 8 to 5 Tuesday through Tuesday (excluding holidays) or, in an emergency situation, through the [place] warping mill operator at (Service pager: [phone]). Mepilex Border Post-Op Ag 1. You had a special dressing placed over your left groin incision on 10/23/2021. This is to aid in wound healing and prevent wound breakdown where the skin surface causes friction. 2. You may shower with this dressing in place. 3. The dressing is saturated when the drainage has reached three of the edges. Once the dressing is saturated, it should be removed. If only a small amount of drainage is showing, the dressing can remain in place. 4. This dressing will stay in place for seven days. Remove your dressing on 10/30/2021. 5. Remove the dressing by gently lifting a corner and peeling away from your wound. 6. If you note that there is redness or drainage around the incision, please call Dr. Mcneil's nurse practitioner through the [facility] warping mill operator [phone]. 7. After removing the dressing, keep the groin area clean and dry. None OUTPATIENT FOLLOW UP Scheduled Appointments 10/29/2021 8:30 AM LAB [facility] Laboratory Medicine For appointment details refer to your Patient Appointment Guide. 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 Narayan was admitted to Dr. Mcneil's surgical service following endovascular abdominal aorticaneurysm repair and left common femoral endarterectomy with bovine pericardial patch angioplasty on 10/22/2021. She tolerated the procedure well and was transferred to the vascular progressive care unitpostoperatively. ECG and troponins were negative for myocardial ischemia. Pain was managed with intravenous pain medications, which was later transitioned to oral pain medications with adequate control. Right groin puncture intact without hematoma or drainage. Left groin incision intact without erythema or drainage. Mepilex was placed over left groin incision on 10/23/2021, see Post Discharge section. Bilateral lower extremity distal peripheral vessels with doppler signal present at dorsalis pedis and posterior tibial locations. Neurological exam was intact. At the time of dismissal, she was tolerating a general diet, ambulating independently and urinating without difficulty. Aspirin was continued throughout the perioperative course and should be continued lifelong. # Hyperlipidemia # Hypertension Essential Primary Ms. Narayan was continued on previous statin therapy. Continue to follow-up with primary care for ongoing monitoring. # Chronic Obstructive Pulmonary Disease # Nicotine Dependence Cigarettes In Remission Nicotine cessation highly encouraged for vascular and overall health benefits. Saturating well on room air prior to discharge. Encouraged pulmonary hygiene. # Diabetes Mellitus Type 2 # Obesity Body Mass Index 30-39.9 Adult Carbohydrate restricted diet was observed during hospitalization. Encouraged good blood glucose control at home for vascular health. Can resume home routine at dismissal. # Gastroesophageal Reflux Disease # Dysphagia # Dysphonia # Malignant Neoplasm Of Supraglottic # Anxiety Chronic conditions were monitored while hospitalized and should continue to be monitored primary care provider for ongoing management. CONSULTS ORDERED DURING THIS ADMISSION IP CONSULT TO CARE MANAGEMENT Pertinent Diagnostic Results: No results found. BUN (Blood Urea Nitrogen), S Date Value Ref Range Status 10/23/2021 15 6 - 21 mg/dL Final Creatinine, S Date Value Ref Range Status 10/23/2021 1.08 (H) 0.59 - 1.04 mg/dL Final No results found for this or any previous visit (from the past 24 hour(s)). CONDITION AT DISCHARGE stable Code Status at Discharge: Full Discharge instructions were provided to the patient and caregiver(s). Y MARKET CLERK documented in this encounter Discharge Instructions AttachmentsThe following attachments cannot be sent through Care Everywhere. Acetaminophen (By mouth) (Guinean)Oxycodone, Rapid Release (By mouth) (Guinean) Polyethylene Glycol 3350 (By mouth) (Guinean)Laxative, Stool Softeners (By mouth) (Guinean)documented in this encounter Medications at Time of Discharge [...] mg every 0 tablet evening. Clare Aspirin budesonide-formoteroL Inhale 2 puffs 2 0 (SYMBICORT) 80-4.5 (two) times a day. mcg/actuation inhaler Rinse mouth with water after use to reduce aftertaste and incidence of candidiasis. Do not swallow. cetirizine (ZyrTEC) 10 mg Take 10 mg by 0 tablet mouth every evening. famotidine (PEPCID) 20 mg Take 20 mg by 0 tablet mouth at bedtime. fluticasone propionate Administer 1 spray 0 01/13 (FLONASE) 50 mcg/actuation into each nostril nasal spray daily as needed for allergies. hydroCHLOROthiazide Take 25 mg by 11 02/18/2019 (HYDRODIURIL) 25 mg tablet mouth every evening. losartan (COZAAR) 100 mg Take 100 mg by 0 05/26/2 020 tablet mouth every evening. oxyCODONE (ROXICODONE) [...] mg by 0 tablet mouth at bedtime. atorvastatin (LIPITOR) 20 Take 1 tablet (20 90 tablet 3 11/202110/16/2022 mg tablet mg total) by mouth daily. diaper,brief,adult,disposab Bag: (36 each) 36 each 1 03/16 le (DEPEND UNDERWEAR FOR WOMEN XL) misc levothyroxine (SYNTHROID, Take 1 tablet (50 30 tablet 1 10/202101/14/2022 LEVOTHROID) 50 mcg tablet mcg total) by mouth every morning before breakfast. documented as of this encounter Progress Notes Lotus Simmons Pharm.D., R.Ph. - 10/22/2021 9:55 AM CST Images from the original note were not included. Admission Medication History Note Medication list source: Patient Medication related information: She takes her medications in the evenings. She is taking her albuterol twice daily. Prior to Admission Medications Med List Status: Pharmacy Complete Set By: Lotus Simmons, PharmShitalD., R.Ph. at 10/22/2021 9:55 AM Taking? Last Dose Informant Start Date End Date LT acetaminophen (TYLENOL) 500 mg capsule -- -- Take 500 mg by mouth every 6 (six) hours as needed for pain. albuterol 90 mcg/actuation inhaler -- -- Inhale 2 puffs 2 (two) times a day. aspirin 81 mg chewable tablet 10/21/2021 -- -- Chew 81 mg every evening. Clare Aspirin atorvastatin (LIPITOR) 20 mg tablet 10/16/21 10/16/22 Take 1 tablet (20 mg total) by mouth daily. Notes: Hasn't started yet. She is finishing her prescription for simvastatin 20mg daily and then will switch to atorvastatin. budesonide-formoteroL (SYMBICORT) 80-4.5 mcg/actuation inhaler -- -- Inhale 2 puffs 2 (two) times a day. Rinse mouth with water after use to reduce aftertaste and incidence of candidiasis. Do not swallow. cetirizine (ZyrTEC) 10 mg tablet -- -- Take 10 mg by mouth every evening. diaper,brief,adult,disposable (DEPEND UNDERWEAR FOR WOMEN XL) [facility] 04/09/19 -- Bag: (36 each) famotidine (PEPCID) 20 mg tablet -- -- Take 20 mg by mouth at bedtime. fluticasone propionate (FLONASE) 50 mcg/actuation nasal spray 01/13/19 -- Administer 1 spray into each nostril daily as needed for allergies. hydroCHLOROthiazide (HYDRODIURIL) 25 mg tablet 10/21/2021 Self 02/18/19 -- Take 25 mg by mouth every evening. ibuprofen (ADVIL,MOTRIN) 200 mg tablet Past Month -- -- Take 200 mg by mouth every 6 (six) hours as needed for pain. levothyroxine (SYNTHROID, LEVOTHROID) 50 mcg tablet 10/21/2021 09/17/21 -- Take 1 tablet (50 mcg total) by mouth every morning before breakfast. Patient taking differently: Take 50 mcg by mouth every evening. losartan (COZAAR) 100 mg tablet 10/21/2021 01/08/20 -- Take 100 mg by mouth every evening. POTASSIUM ORAL -- -- Take 99 mg by mouth every evening. simvastatin (ZOCOR) 20 mg tablet -- -- Take 20 mg by mouth at bedtime. Notes: After she runs out of simvastatin, she will switch to atorvastatin. Y MARKET CLERK documented in this encounter Nursing Notes Terrie Wilson R.N. - 10/24/2021 12:40 PM CST Shift Goals: Discharge to home with son and [id number] Identify possible barriers to meeting goals/advancing plan of care: None End of Shift Summary: Vital signs stable. PIVs removed. Pain tolerable. After visit summary gone over with patient and [id number]. All questions answered. Scripts sent to home pharmacy for picker/puller. Patient escorted out by wheelchair and discharged home. documented in this encounter OR Notes Op Note - Mark Mcneil M.D., M.S. - 10/22/2021 1:59 PM CST Date of Surgery: 10/22/2021 Procedure(s): Endovascular abdominal aortic aneurysm repair with [place] endoprosthesis. Ultrasound-guided bilateral common femoral artery access. IR IMAGING. Left common femoral endarterectomy with bovine pericardial patch angioplasty Surgeon(s) and Role: * Mark Mcneil M.D., M.S. - Primary * Tai Colunga M.B.B.S. - Supervisor Insecticide Software Trainer(s): Anesthesia Type: General Pre-Operative Diagnosis: Aneurysm Abdominal Aortic Without Rupture (HCC) [I71.4]. Endovascular AAA Repair Operative Report: V ENDOVASCULAR AAA REPAIR: Post-Op: Post-op diagnosis: Same as pre-op Endovascular AAA Repair Operative Report: Procedure urgency: Elective Patient history: Ms. Narayan is a 66 y.o. female with an known AAA. Given its size she was counseled regarding repair. Anatomy was suitable for an endovascular approach. Risk, benefits, and alternatives were reviewed with the patient who elected to proceed. [place] Aneurysm Data: AAA diameter (mm): 57 Aortic neck length (mm): 20 Aortic neck diameter (mm): 23 Aortic-neck angle: <45?? Neck-AAA angle: <45?? Iliac aneurysm: No [place] Procedural Details: Skin prep: Chlorhexidine + alcohol (chlorprep) [place] Access and Adjunct Details: US guidance: Yes US findings of femoral artery patency: Right and left patent Puncture site pre-closed with Perclose devices: Both Access: Bilateral Right access: Percutaneous femoral Left access: Open femoral, failed percutaneous [place] Device Details: Main device: Bifurcated infra-renal Main device side: Left Proximal aortic extensions: None Endoanchors used: No Most distal endpoint: Common Right iliac device endpoint: Common Number of iliac devices: 1 Planned right iliac devices: Yes Most distal endpoint: Common Number of left iliac devices: 0 Concomitant embolization: None Device comments: Main body [id number] Right limb [id number] Complications: Any complications/Endoleak: Non-endoleak complication and endoleak Endoleak at completion: II - lumbar Iliac/femoral thrombectomy: Left Conversion to open repair: No Comments: 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 Type 1A endoleak treated with additional balloon molding with resolution of the endoleak. Narrative: The patient was properly identified and brought to the operating room and placed supine on the operating table. Both groins were prepped and draped in the usual sterile fashion. Prior to the start of the procedure, the entire operative team took place in a standard time-out which included the patient's name, the procedure, the site, side, and all necessary equipment. After access was established, we upsized to a 5- [place] sheath using a Seldinger technique. Two Perclose devices were then deployed in a preclose technique for later arterial closure. We then upsized to 8-[place] sheaths. A Lunderquist wire was advanced into the thoracic aorta, and a Flush catheter was inserted into the perirenal aorta. The main device was brought up onto the field and was oriented extracorporeally and then advanced without much difficulty into the perirenal aorta. A limited aortogram was performed delineating the renals, and the graft was deployed proximally. The contralateral gate was opened, and the remainder of the graft was deployed. The contralateral gate was then cannulated without difficulty, and a contralateral iliac limb was placed. All the overlap zones were then molded with a Coda balloon. Completion arteriogram was performed. There was a type 1A endoleak which was treated with additional balloon molding. Following this there was no type 1A endoleak upon completion. There was a type 2 endoleak from ilial lumbar vessels. Perclose devices were tightened with good hemostasis. The patient had good right-sided pedal signals but no left-sided pedal signals. Angiography showed flow limiting dissection of the left common femoral artery. Therefore a longitudinal arteriotomy was performed and control the vessel was obtained just under the inguinal ligament. Control was obtained of the distal common femoral artery as well. The vessel was clampedand the wire and sheath removed. The artery was opened and focal plaque was endarterectomized with good endpoints. The distal endpoint was tacked with 5-0 Prolene suture. The bovine pericardial patch was then used for closure with running five 0 Prolene suture. Was appropriately flushed before completion and flow was restored with church of Doppler signal in the foot. Protamine was given. Hemostasis was achieved. The left groin was closed with 3-0 Vicryl suture and a 4-0 Monocryl in a running serrano bcuticular fashion. Dressings were placed. The patient was then taken to the recovery room in stablecondition. At the end of the procedure, all instruments, sponges, and needles were accounted for. Specimens: None Drains: Indwelling Urinary Catheter Non-latex 16 Fr. (Active) 10/22/21 1308 Placed by: Emiliana JO Placed by External Staff?: Hand Hygiene Performed Prior to Insertion: Yes Sterile technique followed?: Yes Catheter Type: Non-latex Tube Size (Fr.): 16 Fr. Catheter Balloon Size: 10 mL Urine Returned: Yes Removal Reason: Collection Container Standard drainage bag 10/22/211924 Securement Method Securing device 10/22/211924 Daily Assessment of Need Perioperative management (<48 hr post-op) 10/22/211924 Output (mL)- Urine 125 mL 10/22/211924 Estimated Blood Loss: 200 mL Implants: Implant Name LRB Site No. Used Senior Technical Analyst Mfr No. Serial No. Status Type GRFT EXC AAA MN BDY [id number] - [id number] - [id number] N/A 1 [place] [id number] Implanted Vascular Graft GRFT EXC AAA EXT 12X12 - [id number] - [id number] N/A 1 [place] [id number] Implanted Vascular Graft CLP HRZN TI 6 CLP MD MADDISON - [id number] N/A 1 [employer] [id number] Implanted Hardware e.g. pins/screws/rods CLP LGC LGT TI SM - [id number] N/A 1 [employer] [id number] Implanted Hardware e.g. pins/screws/rods CLP HRZN TI 6 CLP MD MADDISON - [id number] N/A 2 [employer] [id number] Implanted Hardware e.g. pins/screws/rods GRFT VSC BOV 0.8X8 - [id number] N/A 1 [employer] [id number] Implanted Mesh or Patch Intra-op Medications: Intra-op Medications Date/Time Order Dose Route Action Action by 10/22/2021 1700 heparin 10 Units/mL in NaCl 0.9% 500 mL flush solution 400 mL miscellaneous Given Tarun, R 10/22/2021 1703 iodixanol (VISIPAQUE) 160 mg/mL in NaCl 0.9% injection 133 mL injection Given Dm Colunga 10/22/2021 1711 phenylephrine 80 mcg/mL in NaCl 0.9% 250 mL infusion 0 mcg/kg/min intravenous [facility]pped [facility] 10/22/2021 1625 phenylephrine 80 mcg/mL in NaCl 0.9% 250 mL infusion 0.3 mcg/kg/min intravenous [facility] 10/22/2021 1609 phenylephrine 80 mcg/mL in NaCl 0.9% 250 mL infusion 0 mcg/kg/min intravenous Stopped [facility] 10/22/2021 1530 phenylephrine 80 mcg/mL in NaCl 0.9% 250 mL infusion 0.3 mcg/kg/min intravenous Rate/Dose Change [facility] 10/22/2021 1511 phenylephrine 80 mcg/mL in NaCl 0.9% 250 mL infusion 0.2 mcg/kg/min intravenous Rate/Dose Change [place], S 10/22/2021 1440 phenylephrine 80 mcg/mL in NaCl 0.9% 250 mL infusion 0.4 mcg/kg/min intravenous Rate/Dose Change [place], S 10/22/2021 1432 phenylephrine 80 mcg/mL in NaCl 0.9% 250 mL infusion 0.2 mcg/kg/min intravenous Rate/Dose Change [place], S 10/22/2021 1348 phenylephrine 80 mcg/mL in NaCl 0.9% 250 mL infusion 0.5 mcg/kg/min intravenous Rate/Dose Change [facility] 10/22/2021 1334 phenylephrine 80 mcg/mL in NaCl 0.9% 250 mL infusion 0.3 mcg/kg/min intravenous Rate/Dose Change [place] S 10/22/2021 1326 phenylephrine 80 mcg/mL in NaCl 0.9% 250 mL infusion 0.1 mcg/kg/min intravenous [employer] [place], S 10/22/2021 1654 cellulose, oxidized 1 X 2 pad (SURGICEL) 1 each topical Given Dm Colunga 10/22/2021 1654 thrombin (recombinant) topical solution (RECOTHROM) 5,000 Units topical Given Dm Colunga M.D., M.S. Y MARKET CLERK Brief Op Note - Tai Colunga M.B.B.S. - 10/22/2021 1:59 PM CST Pre-op Diagnosis Aneurysm Abdominal Aortic Without Rupture (HCC) Post-op Diagnosis Aneurysm Abdominal Aortic Without Rupture (HCC) Procedure EVAR for infrarenal AAA Left femoral endarterectomy with patch angioplasty Valdez BlairSShital Y MARKET CLERK documented in this encounter Miscellaneous Notes Hospital Course - Sanna Newman P.A.-C. - 10/22/2021 8:06 AM CST #4 Aneurysm Abdominal Aortic Without Rupture # Stenosis Carotid Artery Left # S/P Endovascular abdominal aortic aneurysm repair, Left common femoral endarterectomy with bovine pericardial patch angioplasty, 10/22/2021 Ms. Narayan was admitted to Dr. Mcneil's surgical service following endovascular abdominal aorticaneurysm repair and left common femoral endarterectomy with bovine pericardial patch angioplasty on 10/22/2021. She tolerated the procedure well and was transferred to the vascular progressive care unitpostoperatively. ECG and troponins were negative for myocardial ischemia. Pain was managed with intravenous pain medications, which was later transitioned to oral pain medications with adequate control. Right groin puncture intact without hematoma or drainage. Left groin incision intact without erythema or drainage. Mepilex was placed over left groin incision on 10/23/2021, see Post Discharge section. Bilateral lower extremity distal peripheral vessels with doppler signal present at dorsalis pedis and posterior tibial locations. Neurological exam was intact. At the time of dismissal, she was tolerating a general diet, ambulating independently and urinating without difficulty. Aspirin was continued throughout the perioperative course and should be continued lifelong. # Hyperlipidemia # Hypertension Essential Primary Ms. Narayan was continued on previous statin therapy. Continue to follow-up with primary care for ongoing monitoring. # Chronic Obstructive Pulmonary Disease # Nicotine Dependence Cigarettes In Remission Nicotine cessation highly encouraged for vascular and overall health benefits. Saturating well on room air prior to discharge. Encouraged pulmonary hygiene. # Diabetes Mellitus Type 2 # Obesity Body Mass Index 30-39.9 Adult Carbohydrate restricted diet was observed during hospitalization. Encouraged good blood glucose control at home for vascular health. Can resume home routine at dismissal. # Gastroesophageal Reflux Disease # Dysphagia # Dysphonia # Malignant Neoplasm Of Supraglottic # Anxiety Chronic conditions were monitored while hospitalized and should continue to be monitored primary care provider for ongoing management. Y MARKET CLERK documented in this encounter Plan of Treatment Upcoming Encounters Date Type Specialty Care Team Description 04/22/2022 Clinical Admitting/Central Communication Scheduling 04/26/2022 Appointment Radiology Mark Mcneil M.D., M.S. [address] [place] [phone] 04/26/2022 Office Visit Otorhinolaryngology Roxanne Lanza APRN, C.N.P. [address] [place] [address] [phone] 04/28/2022 Appointment Radiation Oncology Ursula Aguirre M.D. [address] [place] [phone] documented as of this encounter Procedures Procedure Name Priority Date/Time Associated Comments Diagnosis ECG Routine 10/24/2021 11:08 Results for AM MONEY MARKET CLERK this procedure are in the results section. ADULT OXYGEN THERAPY Routine 10/23/2021 8:01 AM MONEY MARKET CLERK CBC WITHOUT Routine 10/23/2021 4:53 Results for DIFFERENTIAL, B AM MONEY MARKET CLERK this procedu re are in the results section. BASIC METABOLIC Routine 10/23/2021 4:53 Results f or PANEL, S/P AM MONEY MARKET CLERK this procedure are in the results section. TROPONIN T, 2H/6H, Timed 10/22/2021 10:58 Resul ts for 5TH GEN, P PM MONEY MARKET CLERK this procedure are in the results section. TROPONIN T, BASELINE, STAT 10/22/2021 8:51 Res ults for 5TH GEN, P PM MONEY MARKET CLERK this procedure are in the results section. ECG STAT 10/22/2021 8:43 Results for PM MONEY MARKET CLERK this procedure are in the results section. ADULT OXYGEN THERAPY Routine 10/22/2021 8:25 PM MONEY MARKET CLERK ADULT OXYGEN THERAPY Routine 10/22/2021 8:25 PM MONEY MARKET CLERK ADULT OXYGEN THERAPY Routine 10/22/2021 8:25 PM MONEY MARKET CLERK GLUCOSE POCT, B Routine 10/22/2021 6:16 Results f or PM MONEY MARKET CLERK this procedure are in the results section. IR IMAGING RAD - Routine 10/22/2021 5:49 Aneurysm Results for (most inpatients PM MONEY MARKET CLERK Abdominal Aortic this pr ocedure and all Without Rupture are in the outpatients) ([facility]) results section. IR ABDOMEN AORTA RAD - Routine 10/22/2021 5:49 Aneurysm Results for STENT GRAFT (most inpatients PM MONEY MARKET CLERK Abdominal Aortic this pr ocedure and all Without Rupture are in the outpatients) ([facility]) results section. IR FEMORAL ARTERY RAD - Routine 10/22/2021 5:49 Aneurysm Result s for ENDARTERECTOMY (most inpatients PM MONEY MARKET CLERK Abdominal Aortic this procedure and all Without Rupture are in the outpatients) ([facility]) results section. ACT, POCT, B Routine 10/22/2021 3:40 Results for PM MONEY MARKET CLERK this procedure are in the results section. GLUCOSE POCT, B Routine 10/22/2021 3:39 Results f or PM MONEY MARKET CLERK this procedure are in the results section. ACT, POCT, B Routine 10/22/2021 3:13 Results for PM MONEY MARKET CLERK this procedure are in the results section. ACT, POCT, B Routine 10/22/2021 2:47 Results for PM MONEY MARKET CLERK this procedure are in the results section. SODIUM, B STAT 10/22/2021 1:43 Results for PM MONEY MARKET CLERK this procedure are in the results section. ABG W/COOX STAT 10/22/2021 1:43 Results for PM MONEY MARKET CLERK this procedure are in the results section. POTASSIUM, B STAT 10/22/2021 1:43 Results for PM MONEY MARKET CLERK this procedure are in the results section. GLUCOSE, WHOLE BLOOD STAT 10/22/2021 1:43 Resu lts for PM MONEY MARKET CLERK this procedure are in the results section. CALCIUM, IONIZED, S/B STAT 10/22/2021 1:43 Res ults for PM MONEY MARKET CLERK this procedure are in the results section. ACT, POCT, B Routine 10/22/2021 1:41 Results for PM MONEY MARKET CLERK this procedure are in the results section. ADULT OXYGEN THERAPY Routine 10/22/2021 12:12 PM MONEY MARKET CLERK GLUCOSE POCT, B Routine 10/22/2021 11:10 Results for AM MONEY MARKET CLERK this procedure are in the results section. documented in this encounter Results ECG 12 Lead (10/24/2021 11:08 AM MONEY MARKET CLERK) P athologist Signature Ventricular Rate 94 BPM MUSE ECG/Min KS Interval 162 ms MUSE QRSD Interval 78 ms MUSE QT Interval 360 ms MUSE QTC Interval 450 ms MUSE P [place] 15 degrees MUSE R [place] -1 degrees MUSE T Wave [place] 46 degrees MUSE Specimen Anatomical Collection Method Collection Time Receive d Time (Source) Location / / Volume Laterality 10/24/2021 11:08 10/24/2021 AM MONEY MARKET CLERK 11:27 AM MONEY MARKET CLERK Impressions MUSE - 10/24/2021 11:27 AM MONEY MARKET CLERK Normal sinus rhythm Nonspecific ST abnormality When compared with ECG of 22-OCT-2021 20 :43, No significant change was found Reviewed by LEILANI Israel Narrative This result has an attachment that is no t available. Procedure Note Edgar Galeano M.D. - 10/24/2021 IMPRESSION: Normal sinus rhythm Nonspecific ST abnormality When compared with ECG of 22-OCT-2021 20 :43, No significant change was found Reviewed by LEILANI Israel Sanna Newman P.A.-C. ECG ORDERABLES Performing Organization Address City/State/ZIP Code Phon e Number MUSE MUSE NA (ABNORMAL) Basic Metabolic Panel (10/23/2021 4:53 AM MONEY MARKET CLERK) P athologist Signature Potassium, S 4.1 3.6 - 5.2 10/23/2021 DTL mmol/L 6:08 AM MONEY MARKET CLERK Sodium, S 137 135 - 145 10/23/2021 DTL mmol/L 6:08 AM MONEY MARKET CLERK Chloride, S 102 98 - 107 10/23/2021 DTL mmol/L 6:08 AM MONEY MARKET CLERK Bicarbonate, S 24 22 - 29 10/23/2021 DTL mmol/L 6:08 AM MONEY MARKET CLERK Anion Gap 11 7 - 15 10/23/2021 DTL 6:08 AM MONEY MARKET CLERK BUN (Blood 15 6 - 21 10/23/2021 DTL Urea mg/dL 6:08 AM MONEY MARKET CLERK Nitrogen), S Creatinine, S 1.08 (H) 0.59 - 10/23/2021 DTL 1.04 mg/dL 6:08 AM MONEY MARKET CLERK eGFR-Non 54 (L) >=60 10/23/2021 DTL Black/ mL/min/BSA 6:08 AM MONEY MARKET CLERK [place] Comment: ----ADDITIONAL INFORMATION---- Estimated GFR calculated using the 2009 CKD_EPI creatinine equation. eGFR-Black/ 62 >=60 mL/min/BSA 2021 6:08 AM MONEY MARKET CLERK DTL Comment: ----ADDITIONAL INFORMATION---- Estimated GFR calculated using the 2009 CKD_EPI creatinine equation. Calcium, Total, S 8.1 (L) 8.8 - 10.2 mg/dL 10/23/2021 6:08 AM MONEY MARKET CLERK DTL Glucose, S 143 (H) 70 - 140 mg/dL 10/23/2021 6:08 AM MONEY MARKET CLERK D TL Specimen Anatomical Collection Method Collection Time Receive d Time (Source) Location / / Volume Laterality Blood (Blood, 10/23/2021 4:53 AM 10/24/19 5:50 Venous) MONEY MARKET CLERK AM MONEY MARKET CLERK Tai Chiu LAB BLOOD ADD-ON Performing Organization Address City/State/ZIP Code Phon e Number [facility] - [address] [place], [place] [address] [facility] [place] [address] [facility] [facility] [place] [address] (ABNORMAL) CBC without Differential (10/23/2021 4:53 AM MONEY MARKET CLERK) [facility] Method Time Signature Hemoglobin 9.3 (L) 11.6 - 10/23/2021 DTL 15.0 g/dL 5:40 AM MONEY MARKET CLERK Hematocrit 28.5 (L) 35.5 - 10/23/2021 DTL 44.9 % 5:40 AM MONEY MARKET CLERK Erythrocytes 3.26 (L) 3.92 - 10/23/2021 DTL 5.13 5:40 AM MONEY MARKET CLERK x10(12)/L MCV 87.4 78.2 - 10/23/2021 DTL 97.9 fL 5:40 AM MONEY MARKET CLERK RBC Distrib Width 15.0 12.2 - 10/23/2021 DTL 16.1 % 5:40 AM MONEY MARKET CLERK Platelet Count 202 157 - 371 10/23/2021 DTL x10(9)/L 5:40 AM MONEY MARKET CLERK Leukocytes 7.3 3.4 - 9.6 10/23/2021 DTL x10(9)/L 5:40 AM MONEY MARKET CLERK Specimen Anatomical Collection Method Collection Time Receive d Time (Source) Location / / Volume Laterality Blood (Blood, 10/23/2021 4:53 AM 10/24/19 5:33 Venous) MONEY MARKET CLERK AM MONEY MARKET CLERK Tai Chiu LAB BLOOD ADD-ON Performing Organization Address City/State/ZIP Code Phon e Number [facility] - [address] [place] [address] [facility] [place] [address] [address] Troponin T, 2H/6H, 5th Gen (10/22/2021 10:58 PM MONEY MARKET CLERK) [facility] Method Time Signature Troponin T, 2 7 <=10 ng/L 10/22/2021 STMA hr, 5th gen 11:42 PM MONEY MARKET CLERK 2H Delta 0 ng/L 10/22/2021 STMA 11:42 PM MONEY MARKET CLERK 2H Delta Not Changing 10/22/2021 STMA Interp 11:42 PM MONEY MARKET CLERK Troponin T, 6 CANCELED ng/L 10/22/2021 [facility] hr, 5th gen 11:42 PM MONEY MARKET CLERK Comment: Result canceled by the ancnatalia y. Specimen Anatomical Collection Method Collection Time Receive d Time (Source) Location / / Volume Laterality Blood (Blood, 10/22/2021 10:58 10/22/2021 Venous) PM MONEY MARKET CLERK 11:12 PM MONEY MARKET CLERK Narrative [facility] - 10/22/2021 11:42 PM MONEY MARKET CLERK Specimen Information: Specimen ID: [id number] Specimen Type: Blood Specimen Collection Start Date: 10/23/19 10:58 PM Specimen Received Date: 10/22/2021 11:12 PM Specimen ID: [id number] Specimen Type: Blood Specimen Collection Start Date: 10/23/19 11:42 PM Specimen Received Date: 10/22/2021 11:42 PM Tai KelloggSShital LAB BLOOD TROPONIN Performing Organization Address City/[facility] Phon e Number [address] Troponin T, Baseline, 5th gen (10/22/2021 8:51 PM MONEY MARKET CLERK) P athologist Signature Troponin T, 7 <=10 ng/L 10/22/2021 [facility] Baseline, 5th 9:26 PM MONEY MARKET CLERK gen Specimen Anatomical Collection Method Collection Time Receive d Time (Source) Location / / Volume Laterality Blood (Blood, 10/22/2021 8:51 PM 10/23/19 9:05 Venous) MONEY MARKET CLERK PM MONEY MARKET CLERK Tai KelloggS. LAB BLOOD TROPONIN Performing Organization Address City/[facility] Phon e Number [facility] - [address] ECG 12 Lead (10/22/2021 8:43 PM MONEY MARKET CLERK) P athologist Signature Ventricular Rate 66 BPM MUSE ECG/Min KS Interval 186 ms MUSE QRSD Interval 82 ms MUSE QT Interval 452 ms MUSE QTC Interval 473 ms MUSE P [place] 41 degrees MUSE R [place] 8 degrees MUSE T Wave [place] 45 degrees MUSE Specimen Anatomical Collection Method Collection Time Receive d Time (Source) Location / / Volume Laterality 10/22/2021 8:43 PM 03/10/202 2 8:51 MONEY MARKET CLERK PM MONEY MARKET CLERK Impressions MUSE - 10/22/2021 8:51 PM MONEY MARKET CLERK Normal sinus rhythm Normal ECG When compared with ECG of 22-SEP-2021 10 :50, No significant change was found Reviewed by LEILANI Fraga Narrative This result has an attachment that is no t available. Procedure Note Victor Manuel Cummings M.D. - 10/22/2021Forma tting of this note might be different from the original. IMPRESSION: Normal sinus rhythm Normal ECG When compared with ECG of 22-SEP-2021 10 :50, No significant change was found Reviewed by LEILANI Fraga Tai Chiu ECG ORDERABLES Performing Organization Address City/State/ZIP Code Phon e Number MUSE MUSE NA (ABNORMAL) Glucose, POCT (10/22/2021 6:16 PM MONEY MARKET CLERK) Analysis Performed At Patho logist Time Signature Glucose, POCT, 197 (H) 70 - 140 10/22/2021 PCLX B mg/dL 6:23 PM MONEY MARKET CLERK Site Capillary 10/22/2021 PCLX 6:23 PM MONEY MARKET CLERK Specimen Anatomical Collection Method Collection Time Receive d Time (Source) Location / / Volume Laterality Blood 10/22/2021 6:16 PM 6:23 MONEY MARKET CLERK PM MONEY MARKET CLERK Unknown Provider LAB POCT ORDERABLES-MANUAL Performing Organization Address City/State/ZIP Code Phon e Number POC [facility] [address] [place] [address] PCLX [facility] [place] [address] [place] POC 200 [facility] IR FEMORAL ARTERY ENDARTERECTOMY (10/22/2021 5:49 PM MONEY MARKET CLERK) Anatomical Region Laterality Modality Lower Extremity, Vascular Interventional RST LOS N/A Other Specimen (Source) Anatomical Location Collection Method / Collectio n Time Received Time / Laterality Volume Narrative 10/26/2021 11:34 AM CDT Performed by surgeon - see Op Note for leslie marrero. Mark Mcneil M.D., M.S. IMG IR PROCEDURES IR IMAGING (10/22/2021 5:49 PM MONEY MARKET CLERK) Anatomical Region Laterality Modality N/A Other Specimen (Source) Anatomical Location Collection Method / Collectio n Time Received Time / Laterality Volume Narrative 10/26/2021 11:34 AM CDT Performed by surgeon - see Op Note for leslie marrero. Mark Mcneil M.D., M.S. IMG IR PROCEDURES IR ABDOMEN AORTA STENT GRAFT (10/22/2021 5:49 PM MONEY MARKET CLERK) Anatomical Region Laterality Modality Abdomen, Vascular Interventional RST LOS N/A Other Specimen (Source) Anatomical Location Collection Method / Collectio n Time Received Time / Laterality Volume Narrative 10/26/2021 11:34 AM CDT Performed by surgeon - see Op Note for lelsie marrero. Mark Mcneil M.D., M.S. IMG IR PROCEDURES (ABNORMAL) ACT (Activated Clotting Time), POCT (10/22/2021 3:40 PM MONEY MARKET CLERK) athologist Signature Activated 227 (H) 84 - 139 10/22/2021 PCSM Clotting Time, sec 3:45 PM MONEY MARKET CLERK POCT Specimen Anatomical Collection Method Collection Time Receive d Time (Source) Location / / Volume Laterality Blood 10/22/2021 3:40 PM 2 3:45 MONEY MARKET CLERK PM MONEY MARKET CLERK Unknown Provider LAB POCT ORDERABLES - DEVICE Performing Organization Address City/[facility] Phon e Number POC RST [facility] [address] [place], [place] [address] LABS [place] [place], [place] [id number] [place] [address] (ABNORMAL) Glucose, POCT (10/22/2021 3:39 PM MONEY MARKET CLERK) athologist Signature Glucose, POCT, 153 (H) 70 - 140 10/22/2021 PCSM B mg/dL 3:41 PM MONEY MARKET CLERK Site ARTLINE 10/22/2021 PCSM 3:41 PM MONEY MARKET CLERK Specimen Anatomical Collection Method Collection Time Receive d Time (Source) Location / / Volume Laterality Blood 10/22/2021 3:39 PM 2 3:41 MONEY MARKET CLERK PM MONEY MARKET CLERK Unknown Provider LAB POCT ORDERABLES-MANUAL Performing Organization Address City/[facility]/ZIP [facility] Phon e Number POC [facility]ST [facility] [address] [place], [place] [address] [place] [address] [place] POC [address] (ABNORMAL) ACT (Activated Clotting Time), POCT (10/22/2021 3:13 PM MONEY MARKET CLERK) athologist Signature Activated 211 (H) 84 - 139 10/22/2021 PCSM Clotting Time, sec 3:17 PM MONEY MARKET CLERK POCT Specimen Anatomical Collection Method Collection Time Receive d Time (Source) Location / / Volume Laterality Blood 10/22/2021 3:13 PM 2 3:17 MONEY MARKET CLERK PM MONEY MARKET CLERK Unknown Provider LAB POCT ORDERABLES - DEVICE Performing Organization Address City/State/ZIP [facility] Phon e Number POC [facility] [address] [place], [place] [address] [place] [address] [place] POC [address] (ABNORMAL) ACT (Activated Clotting Time), POCT (10/22/2021 2:47 PM MONEY MARKET CLERK) athologist Signature Activated 239 (H) 84 - 139 10/22/2021 PCSM Clotting Time, sec 2:54 PM MONEY MARKET CLERK POCT Specimen Anatomical Collection Method Collection Time Receive d Time (Source) Location / / Volume Laterality Blood 10/22/2021 2:47 PM 2 2:54 MONEY MARKET CLERK PM MONEY MARKET CLERK Unknown Provider LAB POCT ORDERABLES - DEVICE Performing Organization Address City/[facility] Phon e Number POC [facility] [address] [place], [place] [address] [place] [address] [place] POC [address] Glucose, Whole Blood (10/22/2021 1:43 PM MONEY MARKET CLERK) athologist Signature Glucose 125 70 - 140 10/22/2021 1:45 STMA mg/dL PM MONEY MARKET CLERK Specimen Anatomical Collection Method Collection Time Receive d Time (Source) Location / / Volume Laterality Blood (Blood, 10/22/2021 1:43 PM 10/23/19 1:43 Arterial Line) MONEY MARKET CLERK PM MONEY MARKET CLERK Asaf Juarez M.D. LAB BLOOD TROPONIN Performing Organization Address City/[facility]/ZIP [facility] Phon e Number [facility] - [address] [place], [place] [address] [facility] [place] [address] [facility] [place] [address] (ABNORMAL) Potassium, Blood (10/22/2021 1:43 PM MONEY MARKET CLERK) athologist Signature Potassium, B 3.5 (L) 3.6 - 5.2 10/22/2021 STMA mmol/L 1:45 PM MONEY MARKET CLERK Specimen Anatomical Collection Method Collection Time Receive d Time (Source) Location / / Volume Laterality Blood (Blood, 10/22/2021 1:43 PM 10/23/19 1:43 Arterial Line) MONEY MARKET CLERK PM MONEY MARKET CLERK Asaf Juarez M.D. LAB BLOOD NON ADD-ON Performing Organization Address City/State/ZIP Code Phon e Number [facility] - [address] [place] [address] [facility] Sodium, B (10/22/2021 1:43 PM MONEY MARKET CLERK) athologist Signature Sodium, B 139 135 - 145 10/22/2021 1:45 STMA mmol/L PM MONEY MARKET CLERK Specimen Anatomical Collection Method Collection Time Receive d Time (Source) Location / / Volume Laterality Blood (Blood, 10/22/2021 1:43 PM 10/23/19 1:43 Arterial Line) MONEY MARKET CLERK PM MONEY MARKET CLERK Asaf Juarez M.D. LAB BLOOD NON ADD-ON Performing Organization Address City/State/ZIP Code Phon e Number [facility] - [address] [place], [place] [address] [place] [id number] [place] [address] (ABNORMAL) Calcium, Ionized (10/22/2021 1:43 PM MONEY MARKET CLERK) athologist Signature Calcium, 4.52 (L) 4.65 - 10/22/2021 STMA Ionized, B 5.30 mg/dL 1:45 PM MONEY MARKET CLERK Specimen Anatomical Collection Method Collection Time Receive d Time (Source) Location / / Volume Laterality Blood (Blood, 10/22/2021 1:43 PM 10/23/19 1:43 Arterial Line) MONEY MARKET CLERK PM MONEY MARKET CLERK Asaf Juarez M.D. LAB BLOOD NON ADD-ON Performing Organization Address City/State/ZIP Code Phon e Number [facility] - [address] [place], [place] [address] [place] [address] [facility] [address] (ABNORMAL) Blood Gas with Coox, Arterial (10/22/2021 1:43 PM MONEY MARKET CLERK) athologist Signature pO2 227 (H) 83 - 108 10/22/2021 STMA mm Hg 1:45 PM MONEY MARKET CLERK pCO2 43 32 - 45 mm 10/22/2021 STMA Hg 1:45 PM MONEY MARKET CLERK pH 7.38 7.35 - 10/22/2021 STMA 7.45 pH 1:45 PM MONEY MARKET CLERK Base Excess 0 -2 - 3 10/22/2021 STMA mmol/L 1:45 PM MONEY MARKET CLERK HCO3 25 22 - 26 10/22/2021 STMA mmol/L 1:45 PM MONEY MARKET CLERK Hemoglobin, B 10.0 (L) 11.6 - 10/22/2021 STMA 15.0 g/dL 1:45 PM MONEY MARKET CLERK O2Hb 98.4 (H) 94.0 - 10/22/2021 STMA 98.0 % 1:45 PM MONEY MARKET CLERK COHb 1.1 <3.0 % 10/22/2021 STMA 1:45 PM MONEY MARKET CLERK MetHb <1.0 <1.5 % 10/22/2021 STMA 1:45 PM MONEY MARKET CLERK CtO2 14.4 (L) 18.0 - 10/22/2021 STMA 21.0 vol % 1:45 PM MONEY MARKET CLERK Specimen Anatomical Collection Method Collection Time Receive d Time (Source) Location / / Volume Laterality Blood (Blood, 10/22/2021 1:43 PM 10/23/19 22 1:43 Arterial Line) MONEY MARKET CLERK PM MONEY MARKET CLERK Asaf Juarez M.D. LAB BLOOD NON ADD-ON Performing Organization Address City/State/ZIP Code Phon e Number [facility] - [address] [place], [place] [address] [place] [address] [facility] [address] ACT (Activated Clotting Time), POCT (10/22/2021 1:41 PM MONEY MARKET CLERK) athologist Signature Activated 131 84 - 139 10/22/2021 PCSM Clotting Time, sec 1:45 PM MONEY MARKET CLERK POCT Specimen Anatomical Collection Method Collection Time Receive d Time (Source) Location / / Volume Laterality Blood 10/22/2021 1:41 PM 2 1:45 MONEY MARKET CLERK PM MONEY MARKET CLERK Unknown Provider LAB POCT ORDERABLES - DEVICE Performing Organization Address City/State/ZIP Code Phon e Number POC RST [facility] [address] [place], [place] [address] [place] [address] [place] POC [address] [place] [address] Glucose, POCT (10/22/2021 11:10 AM MONEY MARKET CLERK) Analysis Performed At Patho logist Time Signature Glucose, POCT, 131 70 - 140 10/22/2021 PCLX B mg/dL 11:21 AM MONEY MARKET CLERK Site Capillary 10/22/2021 PCLX 11:21 AM MONEY MARKET CLERK Specimen Anatomical Collection Method Collection Time Receive d Time (Source) Location / / Volume Laterality Blood 10/22/2021 11:10 10/22/2021 AM MONEY MARKET CLERK 11:21 AM MONEY MARKET CLERK Unknown Provider LAB POCT ORDERABLES-MANUAL Performing Organization Address City/[facility]/ZIP [facility] Phon e Number POC [facility] [address] [place] [address] [place] [address] [place] POC [address] [facility] documented in this encounter Visit Diagnoses Diagnosis Aneurysm Abdominal Aortic Without Ruptur e (HCC) - Primary Aneurysm 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) Dysphagia Dysphonia Stenosis Carotid Artery Left Hyperlipidemia Hypertension Essential Primary Anxiety Chronic Obstructive Pulmonary Disease (H CC) Diabetes Mellitus Type 2 (HCC) Obesity Body Mass Index 30-39.9 Adult Gastroesophageal Reflux Disease Nicotine Dependence Cigarettes In Remiss ion Aneurysm Abdominal Aortic Without Ruptur e (HCC) documented in this encounter Admitting Diagnoses Diagnosis Aneurysm Abdominal Aortic Without Ruptur e (HCC) Aneurysm 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) documented in this encounter Administered Medications Inactive Administered Medications - up to 3 most recent administrations Medication Order MAR Action Action Date Dose Rate Site acetaminophen tablet 1,000 mg Given 10/24/2021 9:03 AM MONEY MARKET CLERK 1,000 mg (TYLENOL) 1,000 mg, oral, 4 times daily, First dose on Meredith 10/22/21 at 2145 Given 10/23/2021 8:50 PM MONEY MARKET CLERK 1,000 mg Given 10/23/2021 5:27 PM MONEY MARKET CLERK 1,000 mg albuterol nebulizer solution 2.5 mg 2.5 mg, nebulization, Every 6 hours PRN, wheezing, shortness of breath, Starting on Meredith 10/22/21 at 2138 albuterol nebulizer solution 2.5 mg Given 10/24/2021 9:05 AM MONEY MARKET CLERK 2.5 mg 2.5 mg, nebulization, 2 times daily, First dose on Tue10/23/21 at 0900 Given 10/23/2021 9:06 PM MONEY MARKET CLERK 2.5 mg Given 10/23/2021 9:34 AM MONEY MARKET CLERK 2.5 mg aspirin chewable tablet 81 mg Given 10/23/2021 5:28 PM MONEY MARKET CLERK 81 mg 81 mg, oral, Every evening, First dose on Tue10/22/21 at 2130 Given 10/22/2021 10:06 PM MONEY MARKET CLERK 81 mg atorvastatin tablet 20 mg (LIPITOR) Given 10/23/2021 8:51 PM MONEY MARKET CLERK 20 mg 20 mg, oral, Daily at bedtime, First dose on Tue10/22/21 at 2145 Given 10/22/2021 10:06 PM MONEY MARKET CLERK 20 mg bisacodyL suppository 10 mg (DULCOLAX) 10 mg, rectal, Daily PRN, constipation, Starting on Tue10/22/21 at 202, Ordered sequence of administration: polyethylene glycol, then bisacodyl until BM achieved. electrolyte-A solution Continued from OR 10/22/2021 5:55 PM MONEY MARKET CLERK 20 mL/hr 20 mL/hr (PLASMA-LYTE A) 20 mL/hr, intravenous, Continuous, Starting on Meredith 10/22/21 at 1715, PACU & Post-Op electrolyte-A solution Continued from OR 10/22/2021 5:55 PM MONEY MARKET CLERK 20 mL/hr 20 mL/hr (PLASMA-LYTE A) 20 mL/hr, intravenous, Continuous, Starting on Meredith 10/22/21 at 1715, PACU & Post-Op famotidine tablet 20 mg (PEPCID) Given 10/23/2021 8:50 PM MONEY MARKET CLERK 20 mg 20 mg, oral, Daily at bedtime, First dose on Tue10/22/21 at 2145, Drug Monitoring Program: Pharmacist to adjust medication dosing based on indication and drug clearance factors. Given 10/22/2021 10:06 PM MONEY MARKET CLERK 20 mg fentaNYL injection 25 mcg (SUBLIMAZE) Given 10/22/2021 7:18 PM MONEY MARKET CLERK 25 mcg 25 mcg, intravenous, Every 2 min PRN, moderate pain or score 4-6 of 10, severe pain or score 7-10 of 10, Starting on Meredith 10/22/21 at 1210, PACU (only), Up to maximum total dose of 200 mcg Given 10/22/2021 6:14 PM MONEY MARKET CLERK 25 mcg fentaNYL injection 25 mcg (SUBLIMAZE) Given 10/22/2021 9:01 PM MONEY MARKET CLERK 25 mcg 25 mcg, intravenous, Every 1 hour PRN, moderate pain or score 4-6 of 10, severe pain or score 7-10 of 10, if patient is unable to take oral analgesics, Starting on Meredith 10/22/21 at 2024, For 2 doses fluticasone furoate-vilanteroL 100-25 Given 10/24/2021 9:[address] 1 puff mcg/actuation inhaler 1 puff (BREO ELLIPTA DISKUS) 1 puff, inhalation, Daily (RT), First dose on Tue10/23/21 at 0800, fluticasone/vilanterol diskus 100/25 mcg was interchanged for Budesonide/Formoterol Given 10/23/2021 9:48 AM [employer] 1 puff haloperidol lactate injection 1 mg (HALD OL) 1 mg, intravenous, Every 6 hours PRN, na usea, vomiting, Starting on Meredith 10/22/21 at 2024, For 48 hours, Total of 3 doses in 24 hour period. RASS must be -2 or higher to administer. Reassess for nausea or vo miting after at least 10 minutes. If nausea or vomiting persists administer next ordered antiemeti c medications (order for antiemetic medication administration ondansetron then haloperidol then promethazine) heparin (porcine) Given 10/24/2021 5:27 AM [employer] 5,000 Units Left Lower Abdomen injection 5,000 Units 5,000 Units, subcutaneous, Every 8 hours scheduled, First dose on Tue10/23/21 at 0600 Given 10/23/2021 9:20 PM [employer] 5,000 Units Left Lower Abdomen Given 10/23/2021 2:43 PM [employer] 5,000 Units Left Upper Arm hydroCHLOROthiazide tablet 25 mg (HYDROD IURIL) Given 10/23/2021 5:28 PM [employer] 25 mg 25 mg, oral, Every evening, First dose on Tue10/22/21 at 2145 Given 10/22/2021 10:06 PM [employer] 25 mg HYDROmorphone (PF) injection 0.4 mg (DIL AUDID) 0.4 mg, intravenous, Every 1 hour PRN, moderate pain o r score 4-6 of 10, severe pain or score 7-10 of 10, if patient is unable to take oral analgesics, Starting on Tue10/22/21 at 2024, For 1 dose, If pain score remains 4 or greater 1 hour after the second fentaNYL dose then administer HYDROmorphone . If pain remains 4 or greater after HYDROmorphone administration, call provi oriana. insulin aspart U-100 Given 10/22/2021 6:57 PM [employer] 4 Units Left Lower Abdomen injection 0-8 Units (NovoLOG FlexPen) 0-8 Units, subcutaneous, Every 2 hour PRN, high blood sugar, Nurse to determine and administer dose, Starting on Tue10/22/21 at 1210, For 2 doses, PACU (only), First dose at least 2 hours after any previous subcutaneous insulin. For glucose less than or equal to 70 mg/dL - initiate treatment of hypoglycemia. , Insulin Aspart: Correction Scale Insulin (For Diabetes Mellitus diagnosis), 71 - 139: 0 units, 140 - 179: 2 units, 180 - 219: 4 units, 220 - 259: 6 units, 260 - 299: 8 units, Greater than or equal to 300: Call anesthesia ipratropium-albuteroL 0.5-2.5 mg/3 mL Given 10/22/2021 11:04 AM [employer] 3 mL nebulizer solution 3 mL (DUONEB) 3 mL, nebulization, 4 times daily (RT), First dose on Tue10/22/21 at 1500, Pre-Op lactated Ringer's bolus 500 mL New Bag 10/23/2021 5:12 AM [employer] 500 mL 500 mL/hr 500 mL, intravenous, at 500 mL/hr, Administer over 1 Hours, Once, On Tue10/23/21 at 0515, For 1 dose levothyroxine tablet 50 mcg (SYNTHROID, Given 10/23/2021 8:50 PM [employer] 50 mcg LEVOTHROID) 50 mcg, oral, Daily at bedtime, First dose on Tue10/22/21 at 2145 Given 10/22/2021 10:06 PM [employer] 50 mcg losartan tablet 100 mg (COZAAR) Given 10/23/2021 5:28 PM [employer] 100 mg 100 mg, oral, Every evening, First dose on Meredith 10/22/21 at 2145 Given 10/22/2021 10:06 PM [employer] 100 mg naloxone injection 0.2 mg (NARCAN) 0.2 mg, intravenous, As needed, respirat ory depression, Starting on Meredith 10/22/21 at 2024, For respiratory rate less than 8 b reaths per minute or RASS score of -3, -4, -5. Apply oxygen to keep oxygen saturati ons greater than 90% and notify service. ondansetron (PF) injection 4 mg (ZOFRAN) Given 10/22/2021 6:27 PM [employer] 4 mg 4 mg, intravenous, Every 6 hours PRN, nausea, vomiting, (If patient has not received in the previous 6 hours), Starting on Meredith 10/22/21 at 1211, For 48 hours, PACU (only), Administer first. If nausea and vomiting persists, proceed with haloperidol. (order of antiemetic administration - ondansetron then haloperidol then granisetron) ondansetron (PF) injection 4 mg (ZOFRAN) Given 10/23/2021 9:11 AM [employer] 4 mg 4 mg, intravenous, Every 6 hours PRN, nausea, vomiting, Starting on Meredith 10/22/21 at 2024, For 48 hours, Reassess for nausea or vomiting after at least 10 minutes. If nausea or vomiting persists administer next ordered antiemetic medications (order for antiemetic medication administration ondansetron then droperidol then promethazine). Given 10/22/2021 10:27 PM [employer] 4 mg oxyCODONE IR tablet 10 mg (ROXICODONE) 10 mg, oral, Every 4 hours PRN, severe p ain or score 7-10 of 10, Starting on Meredith 10/22/21 at 2024, Administer if pain is unrelieved by a cetaminophen. Do not give more than 10 mg of oxycodone in 4 hours. Begin oral narcotics ONLY when tolerating oral diet. oxyCODONE IR tablet 5 mg (ROXICODONE) Given 10/23/2021 10:40 PM [employer] 5 mg 5 mg, oral, Every 4 hours PRN, moderate pain or score 4-6 of 10, Starting on Meredith 10/22/21 at 2024, Administer if pain is unrelieved by acetaminophen. May repeat dose once after 1 hour for persistent pain not to exceed 10 mg in 4 hours. Begin oral narcotics ONLY when tolerating oral diet. Given 10/23/2021 10:00 AM [employer] 5 mg polyethylene glycol powder packet 1 pack et (MIRALAX) 1 packet, oral, Daily PRN, constipation, Starting on Meredith 10/22/21 at 2024, Ordered sequence of administration: polyethylene glycol, then bisacodyl until BM achieved. Avoid mixing with starch-based thickened liquids. promethazine injection 6.25 mg (PHENERGA N) Given 10/23/2021 9:44 PM [employer] 6.25 mg 6.25 mg, intravenous, Every 6 hours PRN, nausea, vomiting, Starting on Meredith 10/22/21 at 2024, For 48 hours, RASS must be -2 or higher to administer. Reassess for nausea/vomiting after at least 10 minutes. If nausea or vomiting persists administer next ordered antiemetic medications (order for antiemetic medication administration ondansetron then droperidol then promethazine). sennosides-docusate sodium 8.6-50 mg per Given 10/24/2021 9:03 A M [employer] 1 tablet tablet 1 tablet (SENOKOT-S) 1 tablet, oral, 2 times daily, First dose on Tue10/23/21 at 0900, Initiate ONLY when taking oral food and fluids. Do not give if patient has diarrhea or ostomy. Given 10/23/2021 8:50 PM [employer] 1 tablet vancomycin in NaCl 0.9% IVPB New Bag 10/22/2021 11:13 AM [employer] 1,250 mg 167 mL/hr 1,250 mg 1,250 mg (rounded from 1,302 mg = 15 mg/kg ? 86.8 kg), intravenous, at 167 mL/hr, Administer over 90 Minutes, Once, On Meredith 10/22/21 at 1100, For 1 dose, Pre-Op, Administer within 2 hours prior to surgical incision, Drug Monitoring Program: Pharmacist to adjust medication dosing based on indication and drug clearance factors., Indications: Prophylaxis, surgical documented in this encounter Active and Recently Administered Medications Times are shown in [employer]. Scheduled Medication Order 10/22/2021 10/23/2021 10/24/2021 acetaminophen tablet 1,000 mg (TYLENOL) 2206 (Given - Provider: Angie Finley R.N.) 0949 (Given - Provider: Lester Hernandez R.N. - Comment: Per pt request)1218 (Given - Provider: Lester Hernandez R.N.)1727 (Given - Provider: Lester Hernandez R.N.)2049 (Given - Provider: Augustine Corcoran R.N., CCRN) 0903 (Given - Provider: Terrie Wilson R.N.)1244 (Not Given - Provider: Terrie Wilson R.N. - Reason: Other - Comment: Patient discharged) 1,000 mg, oral, 4 times daily, First dose on Meredith 10/22/21 at 2145 albuterol nebulizer solution 2.5 mg(Linked Group 1) 0934 (Given - Provider: Lester Hernandez R.N.)2106 (Given - Provider: Augustine Corcoran R.N., CCRN) 0905 (Given - Provider: Terrie Wilson R.N.) 2.5 mg, nebulization, 2 times daily, First dose on Tue10/23/21 a t 0900 aspirin chewable tablet 81 mg 2206 (Given - Provider: Angie Finley R.N.) 1728 (Given - Provider: Lester Hernandez R.N.) 81 mg, oral, Every evening, First dose on Meredith 10/22/21 at 2130 atorvastatin tablet 20 mg (LIPITOR) 2206 (Given - Prov ider: Angie Finley R.N.) 2050 (Given - Provider: Augustine Corcoran R.N., CCRN) 20 mg, oral, Daily at bedtime, First dose on Meredith 10/22/21 at 2145 famotidine tablet 20 mg (PEPCID) 2206 (Given - Provide r: Angie Finley R.N.) 2049 (Given - Provider: Augustine Corcoran R.N., CCRN) 20 mg, oral, Daily at bedtime, First dos e on Tue10/22/21 at 2145, Drug Monitoring Program: Pharmacist to adjust medication dosing based on indication and drug clearance factors. fluticasone furoate-vilanteroL 100-25 mc g/actuation inhaler 1 puff (BREO ELLIPTA DISKUS) 0948 (Given - Provider: Kristian Hernandez R.N. - Comment: Per pt request) 0904 (Given - Provider: Terrie Wilson RLanny) 1 puff, inhalation, Daily (RT), First do se on Tue10/23/21 at 0800, fluticasone/vilanterol diskus 100/25 mcg was interchanged for Budesonide/Formoterol heparin (porcine) injection 5,000 Units 0502 (Given - Provider: Angie Finley R.N.)1443 (Given - Provider: Lester Hernandez R.N.)2120 (Given - Provider: Augustine Corcoran R.N., CCRN) 0527 (Given - Provider: Anisa Marie R.N.) 5,000 Units, subcutaneous, Every 8 hours scheduled, First dose on Tue10/23/21 at 0600 hydroCHLOROthiazide tablet 25 mg (HYDRODIURIL) 2206 (G iven - Provider: Angie Finley RLanny) 1728 (Given - Provider: Lester Hernandez R.N.) 25 mg, oral, Every evening, First dose on Tue10/22/21 at 2145 ipratropium-albuteroL 0.5-2.5 mg/3 mL ne bulizer solution 3 mL (DUONEB) (CANCELED) 1104 (Given - Provider: Kathie Orellana RShitalNShital) 3 mL, nebulization, 4 times daily (RT), First dose on Tue10/22/21 at 1500, Pre-Op lactated Ringer's bolus 500 mL (COMPLETED) 0512 (New Bag - Provider: Angie Finley R.N.) 500 mL, intravenous, at 500 mL/hr, Admin ister over 1 Hours, Once, On 3/11/22 at 0515, For 1 dose levothyroxine tablet 50 mcg (SYNTHROID, LEVOTHROID) 03 02 (Given - Provider: Angie Finley R.N.) 2049 (Given - Provider: Augustine Corcoran R.N., CCRN) 50 mcg, oral, Daily at bedtime, First dose on Meredith 10/22/21 at 214 5 losartan tablet 100 mg (COZAAR) 2206 (Given - Provider : Angie Finley R.N.) 1728 (Given - Provider: Lester Hernandez R.N.) 100 mg, oral, Every evening, First dose on Meredith 10/22/21 at 2145 sennosides-docusate sodium 8.6-50 mg per tablet 1 tablet (SE NOKOT-S) 0950 (Not Given - Provider: Lester Hernandez R.N. - Reason: Patient/family refused)2049 (Given - Provider: Augustine Corcoran R.N., CCRN) 0903 (Given - Provider: Terrie Wilson R.N.) 1 tablet, oral, 2 times daily, First dos e on Tue10/23/21 at 0900, Initiate ONLY when taking oral food and fluids. Do not give if patient has diarrhea or ostomy. vancomycin in NaCl 0.9% IVPB 1,250 mg (COMPLETED) 1113 (New Bag - Provider: Kathie Orellana R.N.) 1,250 mg (rounded from 1,302 mg = 15 mg/ kg ? 86.8 kg), intravenous, at 167 mL/hr, Administer over 90 Minutes, Once, On Meredith 10/22/21 at 1100, For 1 dose, Pre-Op, Administer within 2 hours prior to surgic al incision, Drug Monitoring Program: [facility] to adjust medication dosing based on indication and drug clearance factors., Indications: Prophylaxis, surgical Continuous Medication Order 10/22/2021 10/23/2021 10/24/2021 electrolyte-A solution (PLASMA-LYTE A) (CANCELED) 1755 (Continued from OR - Provider: Alicia Bland R.N.)1900 (Stopped - Provider: Alicia Bland R.N.) 20 mL/hr, intravenous, Continuous, Start ing on Meredith 10/22/21 at 1715, PACU & Post-Op electrolyte-A solution (PLASMA-LYTE A) (CANCELED) 1755 (Continued from OR - Provider: Alicia Bland RShitalNShital)2024 (Stopped - Provider: Angie Finley R.N.) 20 mL/hr, intravenous, Continuous, Start ing on Meredith 10/22/21 at 1715, PACU & Post-Op phenylephrine 80 mcg/mL in NaCl 0.9% 250 mL infusion ( CANCELED) 1326 (New Bag - Provider: Khurram Brink APRN, MARILU)1334 (Rate/Dose Change - Provider: Khurram Brink APRN, CRNA)1348 (Rate/Dose Change - Provider: Khurram Brink APRN, CRNA) 0-1 mcg/kg/min ? 86.3 kg Dosing weight (0-64.725 mL/hr, rounded to 0-64.73 mL/hr), intravenous, Continuous, Starting on Meredith 10/22/21 at 1315, Intra-Op, 20 mg in 250 mL, Patient Type: Standard, initiate 1432 (Rate/Dose Change - Provider: Sera Brink APRN, CRNA)1440 (Rate/Dose Change - Provider: Khurram Brink APRN, CRNA)1511 (Rate/Dose Change - Provider: Khurram Brink APRN, CRNA) at: Other, Rate: Per Provider, Titrate a t: Other, Titrate: Per Provider, Goal: Other, Goal: Per Provider 1530 (Rate/Dose Change - Provider: Sera Brink APRN, CRNA)1609 (Stopped - Provider: Khurram Brink APRN, CRNA)1625 (Restarted - Provider: Khurram Brink APRN, CRNA)1711 (Stopped - Provider: Khurram Brink APRN, CRNA) PRN Medication Order 10/22/2021 10/23/2021 10/24/2021 albuterol nebulizer solution 2.5 mg(Linked Group 1) 2.5 mg, nebulization, Every 6 hours PRN, wheezing, shortness of breath, Starting on Meredith 3/10/22 at 2137 bisacodyL suppository 10 mg (DULCOLAX) 10 mg, rectal, Daily PRN, constipation, Starting on Meredith 10/22/21 at 2024, Ordered sequence of administration: polyethylene glycol, then bisacodyl until BM achieved. cellulose, oxidized 1 X 2 pad (SURGICEL) (CANCELED) 1653 (Given - Provider: Apple Blair) As needed, Starting on Meredith 10/22/21 at 1653, Intra-Op fentaNYL injection 25 mcg (SUBLIMAZE) (CANCELED) 1813 (Given - Provider: Linda Randhawa RShitalN.)1917 (Given - Provider: Alicia Bland RShitalNShital) 25 mcg, intravenous, Every 2 min PRN, mo derate pain or score 4-6 of 10, severe pain or score 7-10 of 10, Starting on Meredith 10/22/21 at 1210, PACU (only), Up to maximum total dose of 200 mcg fentaNYL injection 25 mcg (SUBLIMAZE) 2100 (Given - Pr ovider: Angie Finley R.NShital) 25 mcg, intravenous, Every 1 hour PRN, m oderate pain or score 4-6 of 10, severe pain or score 7-10 of 10, if patient is unable to take oral analgesics, Starting on Meredith 10/22/21 at 2024, For 2 doses fluticasone propionate 50 mcg/actuation nasal spray 1 spray (GASPER NASE) 1 spray, each nostril, Daily PRN, allergies, Starting on Meredith 10/13 at 1300 haloperidol lactate injection 1 mg (HALDOL) 1 mg, intravenous, Every 6 hours PRN, na usea, vomiting, Starting on Meredith 10/22/21 at 2024, For 48 hours, Total of 3 doses in 24 hour period. RASS must be -2 or higher to administer. Reassess for nausea or vomiting after at least 10 minutes. If nausea or vomiting persists administer next ordered antiemetic medications (order for antiemetic medication administration ondansetron then haloperidol then promethazine) heparin 10 Units/mL in NaCl 0.9% 500 mL flush solution (COMPLETED) 1700 (Given - Provider: Mark Mcneil M.D., M.S.) miscellaneous, Once in surgery, OR use o nly, Starting on Meredith 10/22/21 at 1223, For 1 dose, Intra-Op, *Flush/Irrigation use only* HYDROmorphone (PF) injection 0.4 mg (DILAUDID) 0.4 mg, intravenous, Every 1 hour PRN, m oderate pain or score 4-6 of 10, severe pain or score 7-10 of 10, if patient is unable to take oral analgesics, Starting on Meredith 10/22/21 at 2024, For 1 dose, If pa in score remains 4 or greater 1 hour aft er the second fentaNYL dose then administer HYDROmorphone. If pain remains 4 or greater after HYDROmorphone administration, call provider. insulin aspart U-100 injection 0-8 Units (NovoLOG Flex Pen) (CANCELED) 1856 (Given - Provider: Alicia Bland R.N.) 0-8 Units, subcutaneous, Every 2 hour KS N, high blood sugar, Nurse to determine and administer dose, Starting on Meredith 10/22/21 at 1210, For 2 doses, PACU (only), First dose at least 2 hours after any prev ious subcutaneous insulin. For glucose l ess than or equal to 70 mg/dL - initiate treatment of hypoglycemia. , Insulin Aspart: Correction Scale Insulin (For Diabetes Mellitus diagnosis), 71 - 139: 0 unit s, 140 - 179: 2 units, 180 - 219: 4 unit s, 220 - 259: 6 units, 260 - 299: 8 units, Greater than or equal to 300: Call anesthesia iodixanol (VISIPAQUE) 160 mg/mL in NaCl 0.9% injection (COMPLETED) 1703 (Given - Provider: Zoila BlairB.S.) 300 mL, injection, Once in surgery, OR u se only, Starting on Meredith 10/22/21 at 1223, For 1 dose, Intra-Op naloxone injection 0.2 mg (NARCAN) 0.2 mg, intravenous, As needed, respirat ory depression, Starting on Meredith 10/22/21 at 2024, For respiratory rate less than 8 breaths per minute or RASS score of - 3, -4, -5. Apply oxygen to keep oxygen saturations greater than 90% and notify service. ondansetron (PF) injection 4 mg (ZOFRAN) (CANCELED) 18 27 (Given - Provider: Linda Randhawa R.N.) 4 mg, intravenous, Every 6 hours PRN, na usea, vomiting, (If patient has not received in the previous 6 hours), Starting on Meredith 10/22/21 at 1211, For 48 hours, PACU (only), Administer first. If nausea and vomiting persists, proceed with haloper idol. (order of antiemetic administration - ondansetron then haloperidol then granisetron) ondansetron (PF) injection 4 mg (ZOFRAN) 2227 (Given - Provider: Angie Finley R.N.) 0911 (Given - Provider: Lester Hernandez R.N.) 4 mg, intravenous, Every 6 hours PRN, na usea, vomiting, Starting on Meredith 10/22/21 at 2024, For 48 hours, Reassess for nausea or vomiting after at least 10 minutes. If nausea or vomiting persists administe r next ordered antiemetic medications (o rder for antiemetic medication administration ondansetron then droperidol then promethazine). oxyCODONE IR tablet 10 mg (ROXICODONE)(Linked Group 2) 1000 (See Alternative - Provider: Lester Hernandez R.N.)1746 (See Alternative - Provider: Lester Hernandez R.N.)2240 (See Alternative - Provider: Augustine Corcoran R.N., CCRN) 10 mg, oral, Every 4 hours PRN, severe p ain or score 7-10 of 10, Starting on Meredith 10/22/21 at 2024, Administer if pain is unrelieved by acetaminophen. Do not give more than 10 mg of oxycodone in 4 hours. Begin oral narcotics ONLY when tolerating oral diet. oxyCODONE IR tablet 5 mg (ROXICODONE)(Linked Group 2) 1000 (Given - Provider: Lester Hernandez R.N. - Comment: Pre-med for Pre[employer] application)1746 (Not Given - Provider: Lester Hernandez R.N. - Reason: Patient/family refused)2239 (Given - Provider: Augustine Corcoran R.N., CCRN) 5 mg, oral, Every 4 hours PRN, moderate pain or score 4-6 of 10, Starting on Tue10/22/21 at 2024, Administer if pain is unrelieved by acetaminophen. May repeat dose once after 1 hour for persistent pain not to exceed 10 mg in 4 hours. Begin o ral narcotics ONLY when tolerating oral diet. polyethylene glycol powder packet 1 packet (MIRALAX) 1 packet, oral, Daily PRN, constipation, Starting on Tue10/22/21 at 2024, Ordered sequence of administration: polyethylene glycol, then bisacodyl until BM achieved. Avoid mixing with starch-based thickened liquids. promethazine injection 6.25 mg (PHENERGAN) 2143 (Given - Provider: Augustine Corcoran R.N., CCRN) 6.25 mg, intravenous, Every 6 hours PRN, nausea, vomiting, Starting on Tue10/22/21 at 2024, For 48 hours, RASS must be -2 or higher to administer. Reassess for nausea/vomiting after at least 10 minutes. If nausea or vomiting persists administ er next ordered antiemetic medications (order for antiemetic medication administration ondansetron then droperidol then promethazine). thrombin (recombinant) topical solution (RECOTHROM) (C ANCELED) 1653 (Given - Provider: Apple Blair) As needed, Starting on Tue10/22/21 at 1654, Intra-Op Linked Groups Order Group 1: albuterol nebulizer solution 2.5 mgJump to med 2.5 mg, nebulization, Every 6 hours PRN, wheezing, shortness of breath, Starting on Tue10/22/21 at 2138 And albuterol nebulizer solution 2.5 mgJump to med 2.5 mg, nebulization, 2 times daily, Fir st dose on Tue10/23/21 at 0900 Group 2: oxyCODONE IR tablet 5 mg (ROXICODONE)Jump to med 5 mg, oral, Every 4 hours PRN, moderate pain or score 4-6 of 10, Starting on Tue10/22/21 at 2024
Administer if pain is unrelieved by acetaminophen. May repeat dose once after 1 hour for persist ent pain not to exceed 10 mg in 4 hours. Begin oral narcotics ONLY when tolerating oral diet.
Or oxyCODONE IR tablet 10 mg (ROXICODONE)Jump to med 10 mg, oral, Every 4 hours PRN, severe p ain or score 7-10 of 10, Starting on Meredith 10/22/21 at 2024
Administer if pain is unrelieved by acetaminophen. Do not give more than 10 mg of oxycodone in 4 hours. Begin oral narcotics ONLY when t olerating oral diet.
documented in this encounter
--- OUTSIDE RECORDS SUMMARY | 2022-03-31 14:44 | XMS_ITS | Encounter Summary ---
:1955 Author Organization [facility] Address [address] [place] [id number] Care Team Providers Name Role Phone Unavailable Primary Care Provider Unavailable Encounter Details Date Type Department Care Team Description 11/02/2021 Clinical Communication Department of Radiation Kareem Pérez, Oncology in [place], P.A.-Estefanía., .S. [place] [address] [place] [address] [address] [place] [phone] Social History Tobacco Use Types Packs/Day Years [...] or relatives? How often do you attend u[employer]din or Never 2018 [employer] services? Do you belong to any clubs or No 02/21/2019 organizations such as uatsdin groups, unions, fraternal or athletic groups, or [...] this encounter Miscellaneous Notes Telephone Encounter - Summer Pérez P.A.-C., M.S. - 11/02/2021 4:07 PM CDT We received the patient's recent thyroid lab work. Her TSH has decreased from 17.4 to 7.0 with initiation of levothyroxine 50 mcg daily. I reviewed the result with Dr. Aguirre and if the patient is taking the medication properly, then we will plan to increase levothyroxine to 75 mcg daily. I called the patient's [id number], Darlin, to discuss the result. Darlin's phone number is the only one we have on file and we have authorization to talk to her. I will await a return phone call or try again later. Summer Pérez P.A.-C. documented in this encounter Plan of Treatment Upcoming Encounters Date Type Specialty Care Team Description 04/22/2022 Clinical Admitting/Central Communication Scheduling 04/26/2022 Appointment Radiology Mark Eastman M.D., M.S. [address] [place] [phone] 04/26/2022 Office Visit Otorhinolaryngology Roxanne Lanza, [employer], C.N.P. [address] [place] [phone] 04/28/2022 Appointment Radiation Oncology Ursula Aguirre M.D. [address] [place] [phone] documented as of this encounter Visit Diagnoses Not on filedocumented in this encounter
--- OUTSIDE RECORDS SUMMARY | 2022-03-31 14:44 | XMS_ITS | Encounter Summary ---
:1955 Author Organization [facility] Address [address] [place] [address] Care Team Providers Name Role Phone Unavailable Primary Care Provider Unavailable Reason for Visit Reason Comments Med Refill Encounter Details Date Type Department Care Team Description 01/14/2022 Refill Department of Radiation Summer Pérez P.A .-C., Med Refill Oncology in [facility] [address] [facility] [address] [place] [address] [place] [address] [phone] Social History Tobacco Use Types Packs/Day Years [...] or relatives? How often do you attend zoroastrianism or Never 2018 presybeterian services? Do you belong to any clubs or No 02/21/2019 organizations such as zoroastrianism groups, unions, fraternal or athletic groups, or [...] Appointment Radiology Mark Eastman M.D., M.S. [address] [place] [phone] 04/26/2022 Office Visit Otorhinolaryngology Roxanne Lanza APRN, C.N.P. [address] [place] [phone] 04/28/2022 Appointment Radiation Oncology Ursula Aguirre M.D. [address] [place] [phone] documented as of this encounter Results (ABNORMAL) Thyroid Function [place] (01/19/2022 9:42 AM CDT) athologist Signature TSH, Sensitive 19.6 (H) 0.3 - 4.2 01/19/2022 [place] mIU/L 12:52 PM CDT Specimen Anatomical Collection Method Collection Time Receive d Time (Source) Location / / Volume Laterality Blood (Blood, 01/19/2022 9:42 AM 01/20/20 22 Venous) CDT 11:06 AM CDT Summer Pérez P.A.-C., M.S. LAB BLOOD ADD-ON Performing Organization Address City/State/ZIP Code Phon e Number [facility]- [address] [place] [address] [place] [place] [address] System in [place] [address] [facility] documented in this encounter Visit Diagnoses Diagnosis Hypothyroidism Secondary - Primary documented in this encounter
--- OUTSIDE RECORDS SUMMARY | 2022-03-31 14:44 | XMS_ITS | Encounter Summary ---
:1955 Author Organization [facility] Address [address] [place] [address] Care Team Providers Name Role Phone Unavailable Primary Care Provider Unavailable Encounter Details Date Type Department Care Team Description 11/05/2021 Orders Only Division of Vascular and Carlotta Beth APRN, Endovascular Surgery in C.N.P., M.S.N. [place], [place] [address] [facility] [address] [place] [phone] (Wo rk) Social History Tobacco Use Types [...] or relatives? How often do you attend latter-day or Never 2018 yarsani services? Do you belong to any clubs or No 02/21/2019 organizations such as latter-day groups, unions, fraternal or athletic groups, or [...] Appointment Radiology Mark Eastman M.D., M.S. [address] [place] [phone] 04/26/2022 Office Visit Otorhinolaryngology Roxanne Lanza, RECORD CHANGER, C.N.P. [address] [place] [phone] 04/28/2022 Appointment Radiation Oncology Ursula Aguirre M.D. [address] [place] [address] documented as of this encounter Visit Diagnoses Not on filedocumented in this encounter
--- OUTSIDE RECORDS SUMMARY | 2022-03-31 14:44 | XMS_ITS | Encounter Summary ---
:1955 Author Organization [facility] Address [address] [place] [address] Care Team Providers Name Role Phone Unavailable Primary Care Provider Unavailable Reason for Referral Outpatient (Routine) - Closed Specialty Diagnoses / Procedures Referred By Contact Refer red To Contact Radiation Oncology Summer Pérez P.A.-C., [facility] [address] [place] [phone] Referral ID Status Reason Start Date Expiration Date Visits Requ ested Visits Authorized [id number] Closed 01/21/2022 01/21/2023 1 1 Scheduling Instructions Please schedule visit with Dr. Aguirre in January. Patient is moving in February. Encounter Details Date Type Department Care Team Description 01/21/2022 Clinical Communication Department of Radiation Kareem Pérez, Oncology in [place], Melissa, M.S. [address] [place] [phone] Social History Tobacco Use Types Packs/Day Years [...] or relatives? How often do you attend anabaptism or Never 2018 shinto services? Do you belong to any clubs or No 02/21/2019 organizations such as anabaptism groups, unions, fraternal or athletic groups, or [...] Encounter - Summer Pérez P.A.-C., M.S. - 01/21/2022 11:59 AM CDT Ms. Narayan called the clinic today in response to my portal message to her and I spoke to her directly. We reviewed her TSH result. She reports that she stopped taking levothyroxine for a few months and just re-started it again within the past week. She is now taking the medication as prescribed. Since she just re-started the medication, I explained that I would like her to continue taking levothyroxine 50 mcg daily on an empty stomach at this time. I would then recommend a TSH re-check in 4-6 weeks to see if a dosage adjustment is needed. I explained that the levothyroxine is a medication that she will need to take every day for the rest of her life. She verbally expressed her understanding. The patient also commented that she is moving to [place] next month. Her fdfyelqw-rj-dxe is going to help her set up new medical care in [place]. I offered her a visit here before she moves and she would like to come and see Dr. Aguirre still in January. I will place an order for this and our DOS staff will contact the patient for scheduling. She will contact us back sooner with questions or concerns. She verbally expressed her understanding of the plan. Summer Pérez P.A.-C. documented in this encounter Plan of Treatment Upcoming Encounters Date Type Specialty Care Team Description 04/22/2022 Clinical Admitting/Central Communication Scheduling 04/26/2022 Appointment Radiology Mark Eastman M.D., M.S. [address] [place] [phone] 04/26/2022 Office Visit Otorhinolaryngology Roxanne Lanza, ASSISTANT PROFESSOR OF HISTORY, C.N.P. [address] [place] [phone] 04/28/2022 Appointment Radiation Oncology Ursula Aguirre M.D. [address] [place] [phone] Scheduled Referrals Name Type Priority Associated Diagnoses Order [facility] Radiation Oncology Outpatient Referral Routine Ex pected: office visit 02/01/2022 (clinic) (Approximate), Expires: 01/21/2023 documented as of this encounter Visit Diagnoses Not on filedocumented in this encounter
--- OUTSIDE RECORDS SUMMARY | 2022-03-31 14:44 | XMS_ITS | Encounter Summary ---
:1955 Author Organization [facility] Address [address] [place] [address] Care Team Providers Name Role Phone Unavailable Primary Care Provider Unavailable Encounter Details Date Type Department Care Team Description 02/26/2022 Hospital Encounter Department of Summer Pérez Maligna nt Neoplasm Of Supraglottic (HCC); Laboratory Medicine P.Hortencia, M.S . Hypothyroidism Secondary in [place], [address] [place], [place] [address] [facility] [address] [place], [place] [phone] (Work) [phone] Social History Tobacco Use Types Packs/Day Years [...] or relatives? How often do you attend mormonism or Never 2018 mandaen services? Do you belong to any clubs or No 02/21/2019 organizations such as mormonism groups, unions, fraternal or athletic groups, or [...] to pay for the very basics like [employer] hat hard 02/21/2019 food, housing, medical care, [...] evening. diaper,brief,adult,disposab Bag: (36 each) 36 each 1 [...] 1 TABLET BY 30 tablet 0 022 03/22/2022 MOUTH ONCE DAILY IN THE MORNING BEFORE BREAKFAST documented as of this encounter Plan of Treatment Upcoming Encounters Date Type Specialty Care Team Description 04/22/2022 Clinical Admitting/Central Communication Scheduling 04/26/2022 Appointment Radiology Mark Eastman M.D., M.S. [address] [place] [phone] 04/26/2022 Office Visit Otorhinolaryngology Roxanne Lanza, SPECIAL INVESTIGATION UNIT INVESTIGATOR, C.N.P. [address] [place] [phone] 04/28/2022 Appointment Radiation Oncology Ursula Aguirre M.D. [address] [place] [phone] documented as of this encounter Procedures Procedure Name Priority Date/Time Associated Diagnosis Comme nts THYROID-STIMULATING Routine 02/26/2022 9:43 AM Malignant Neopl asm Of Results for this HORMONE-SENSITIVE CDT Supraglottic ( HCC) procedure are in (S-TSH) Hypothyroidism the results Secondary section. documented in this encounter Results (ABNORMAL) S-TSH (Thyroid-Stimulating Hormone - Sensitive) (02/26/2022 9:43 AM CDT) P athologist Signature TSH, Sensitive 5.7 (H) 0.3 - 4.2 02/26/2022 [place] mIU/L 11:40 AM CDT Specimen Anatomical Collection Method Collection Time Receive d Time (Source) Location / / Volume Laterality Blood (Blood, 02/26/2022 9:43 AM 02/27/20 22 Venous) CDT 11:03 AM CDT Summer Pérez P.A.-C., M.S. LAB BLOOD ADD-ON Performing Organization Address City/State/ZIP Code Phon e Number [facility]- [address] [place] [address] [place] [address] System in [place] [address] documented in this encounter Visit Diagnoses Diagnosis Malignant Neoplasm Of Supraglottic (HCC) Hypothyroidism Secondary documented in this encounter
--- OUTSIDE RECORDS SUMMARY | 2022-03-31 14:44 | XMS_ITS | Encounter Summary ---
:1955 Author Organization [facility] Address [address] [place] [address] Care Team Providers Name Role Phone Unavailable Primary Care Provider Unavailable Reason for Visit Reason Comments Med Refill Encounter Details Date Type Department Care Team Description 02/12/2022 Refill Department of Radiation Summer Pérez P.A .-C., Med Refill Oncology in [facility] [address] [facility] [address] [place] [address] [place] [address] [phone] Social History Tobacco Use Types Packs/Day Years [...] or relatives? How often do you attend taoism or Never 2018 mormonism services? Do you belong to any clubs or No 02/21/2019 organizations such as taoism groups, unions, fraternal or athletic groups, or [...] Appointment Radiology Mark Eastman M.D., M.S. [address] [place] [phone] 04/26/2022 Office Visit Otorhinolaryngology Roxanne Lanza APRN, C.N.P. [address] [place] [phone] 04/28/2022 Appointment Radiation Oncology Ursula Aguirre M.D. [address] [place] [phone] documented as of this encounter Visit Diagnoses Not on filedocumented in this encounter
--- OUTSIDE RECORDS SUMMARY | 2022-03-31 14:44 | XMS_ITS ---
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 Past Plans Flushes/Hydration Plan Name Start Date Discontinue Date Treatment Discontinue Plan Medications Reason Provider VASCULAR ACCESS 04/17/2019 04/19/2019 No medications Therapy - PATENCY - scheduled. Complete PERIPHERAL INTRAVENOUS CATHETER AND RAPID INFUSION CATHETER Infusion Therapy 1 Plan Name Start Date Discontinue Date Treatment Discontinue Plan Medications Reason Provider MEDICATION AT 04/13/2019 04/19/2019 No medications Therapy Complete [facility] [place] scheduled. TRACY Bardales BIBLICAL STUDIES PROFESSOR, C.N.P. Radiation Treatments Plan Last Treated On Days Fractions Prescribed Prescri bed Total Treated Fraction Dose Dose F1 H&N 05/04/2019 39 35 of 35 200 cGy 7,000 cGy Reference Point Last Treated On Elapsed Days Session Dose Total Dos e [id number] 05/04/2019 39 200 cGy 7,000 cGy Lifetime Dose Tracking Chemical Lifetime Dose Automatic Entry Manual Entry Radiation 801.56 mGy 40.56 mGy 761 mGy Fluoro Time 31.3 minutes 5.2 minutes 26.1 minutes DAP (Gy-cm2) 221.25 Gy-cm2 0 Gy-cm2 221.25 Gy-cm2 Resolved Problems Problem Noted Date Resolved Date Tobacco Use 04/22/2011 10/22/2021
--- OUTSIDE RECORDS SUMMARY | 2022-03-31 14:44 | XMS_ITS | Encounter Summary ---
:1955 Author Organization [facility] Address [address] [place] [address] Care Team Providers Name Role Phone Unavailable Primary Care Provider Unavailable Encounter Details Date Type Department Care Team Description 11/13/2021 Ancillary Procedure Department of Vascular Surgery Social [...] or relatives? How often do you attend episcopal or Never 2018 buddhism services? Do you belong to any clubs or No 02/21/2019 organizations such as episcopal groups, unions, fraternal or athletic groups, or [...] Appointment Radiology Mark Eastman M.D., M.S. [address] [place] [phone] 04/26/2022 Office Visit Otorhinolaryngology Roxanne Lanza APRN, C.N.P. [address] [place] [phone] 04/28/2022 Appointment Radiation Oncology Ursula Aguirre M.D. 200 [place] [phone] documented as of this encounter Procedures Procedure Name Priority Date/Time Associated Diagnosis Comme nts VASCULAR SURGERY Routine 11/13/2021 10:30 AM Resu lts for this IMAGE EXAM CDT procedure are i n the results section. documented in this encounter Results Groin-Vascular Surgery Image Exam (11/13/2021 10:30 AM CDT) Specimen (Source) Anatomical Collection Method Collection Time Re ceived Time Location / / Volume Laterality 11/13/2021 10:27 AM CDT Narrative [facility] - 11/13/2021 10:31 AM CDT This order has been created and [...]
--- OUTSIDE RECORDS SUMMARY | 2022-03-31 14:45 | XMS_ITS | Encounter Summary ---
:1955 Author Organization [facility] Address [address] [place] [address] Care Team Providers Name Role Phone Unavailable Primary Care Provider Unavailable Reason for Referral Outpatient (Routine) - Closed Specialty Diagnoses / Procedures Referred By Contact Refer red To Contact Diagnoses Aneurysm Abdominal Aortic Without Rupture (HCC) Mark Eastman [place] Procedures DX Chest AP or PA and Lateral 2 Views M.Chrissy., M.S. 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 [address] [place] [phone] Referral ID Status Reason Start Date Expiration Date Visits Requ ested Visits Authorized [id number] Closed 09/15/2021 09/15/2022 1 1 Encounter Details Date Type Department Care Team Description 09/22/2021 Hospital Encounter Department of J[place], Aneurysm Abdominal Radiology, [place] Mark Frederick M.D., Aortic [facility] in M.S. Rupture (HCC) [place], [address] [place] [address] [facility] [address] [place], [place] [phone] (Work) [phone] Social History Tobacco Use Types Packs/Day Years [...] or relatives? How often do you attend buddhism or Never 2018 gnosticist services? Do you belong to any clubs or No 02/21/2019 organizations such as buddhism groups, unions, fraternal or athletic groups, or [...] mg by 0 tablet mouth at bedtime. acetaminophen (TYLENOL) 500 Take 500 mg by 0 10/23/2021 mg capsule mouth every 6 (six) hours as needed for pain. ibuprofen (ADVIL,MOTRIN) Take 200 mg by 0 10/23/2021 200 mg tablet mouth every 6 (six) hours as needed for pain. ibuprofen (ADVIL,MOTRIN) Three Times A Day 0 06/1510/22/2021 600 mg tablet as needed levoFLOXacin (LEVAQUIN) 500 Take 500 mg by 0 07/1710/16/2021 mg tablet mouth daily. levothyroxine (SYNTHROID, Take 1 tablet (50 30 tablet 1 10/202101/14/2022 LEVOTHROID) 50 mcg tablet mcg total) by mouth every morning before breakfast. metFORMIN (GLUCOPHAGE) 500 Daily 0 8 10/16/2021 mg tablet potassium chloride Daily 0 04/21/20182021 (KLOR-CON M/KDUR) 20 mEq ER tablet simvastatin (ZOCOR) 20 mg Take 20 mg by 0 10/16/2021 tablet mouth at bedtime. documented as of this encounter Plan of Treatment Upcoming Encounters Date Type Specialty Care Team Description 04/22/2022 Clinical Admitting/Central Communication Scheduling 04/26/2022 Appointment Radiology Mark Eastman M.D., M.S. [address] [place] [address] 04/26/2022 Office Visit Otorhinolaryngology Roxanne Lanza APRN, C.N.P. [address] [place] [phone] 04/28/2022 Appointment Radiation Oncology Ursula Aguirre M.D. [address] [place] [phone] documented as of this encounter Procedures Procedure Name Priority Date/Time Associated Comments Diagnosis DX CHEST AP OR PA RAD - Routine 09/22/2021 11:05 Aneurysm Resul ts for this AND LATERAL 2 (most inpatients AM UNDERCUTTER OPERATOR Abdominal Aortic proced ure are in VIEWS and all Without Rupture the results outpatients) (HCC) section. documented in this encounter Results DX Chest AP or PA and Lateral 2 Views (09/22/2021 11:05 AM UNDERCUTTER OPERATOR) Anatomical Region Laterality Modality Chest, Thoracic RST LOS, Thoracic ARZ LOS, Thoracic N/A Digital Radiography FLA LOS Specimen (Source) Anatomical Collection Method Collection Time Re ceived Time Location / / Volume Laterality 09/22/2021 11:14 AM UNDERCUTTER OPERATOR Impressions 09/22/2021 11:36 AM UNDERCUTTER OPERATOR Comparison PET/CT 06/12/2020. Prominent ascending aorta. Calcified tortuous aorta. Coronary calcification. Chest otherwise negative. Narrative 09/22/2021 11:36 AM UNDERCUTTER OPERATOR EXAM: ??DX CHEST AP OR PA AND LATERAL 2 VIEWS Procedure Note Chong Celaya M.D. - 09/22/2021Format ting of this note might be different from the original. EXAM: DX CHEST AP OR PA AND LATERAL 2 EWS IMPRESSION: Comparison PET/CT 06/12/2020. Prominent ascending aorta. Calcified tortuous aorta. Coronary calcification. Chest otherwise negative. Mark Eastman M.D., M.S. IMG DIAGNOSTIC IMAGING PROCEDURES documented in this encounter Visit Diagnoses Diagnosis Aneurysm Abdominal Aortic Without Ruptur e (HCC) documented in this encounter
--- OUTSIDE RECORDS SUMMARY | 2022-03-31 14:45 | XMS_ITS | Encounter Summary ---
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 [address] [place] [address] [phone] Referral ID Status Reason Start Date Expiration Date Visits Requ ested Visits Authorized [id number] Closed 09/15/2021 09/15/2022 1 1 Encounter Details Date Type Department Care Team Description 09/22/2021 Hospital Encounter Department of Ronit Eastman Abdominal Cardiovascular [facility] [place], Kimberley, M.S . Rupture (HCC) [address] [place] [address] [phone] Social History Tobacco Use Types Packs/Day Years [...] do you attend taoism or Never 2018 scientologist services? Do you belong to any clubs [...] Radiology Mark Eastman M.D., M.S. [address] [place] [address] 04/26/2022 Office Visit Otorhinolaryngology Roxanne Lanza, AMAYA, C.N.P. [address] [place] [phone] 04/28/2022 Appointment Radiation Oncology Ursula Aguirre M.D. [address] [place] [phone] documented as of this encounter Procedures Procedure Name Priority Date/Time Associated Diagnosis Comme nts ECHO STRESS 2D WITH Routine 09/22/2021 1:40 PM Aneurysm Abdomi nal Results for this COLOR, LIMITED ANALYTICAL CHEMIST Aortic Without procedure a re in DOPPLER AND Rupture (HCC) the results CONTRAST section. documented in this encounter Results ECHO STRESS 2D WITH COLOR, LIMITED DOPPLER AND CONTRAST (09/22/2021 1:40 PM ANALYTICAL CHEMIST) [facility] Method Time Signature Ejection Fraction 60 MC CV EIMS Mid-Ascending Aorta 32 MC CV EIMS Wall Motion Score 1 MC CV EIMS Index LV Mass Index 89 MC CV EIMS LV End-Diastolic 47 MC CV EIMS Diameter LV End-Systolic 32 MC CV EIMS Diameter MV E Velocity 0.90 MC CV EIMS MV A Velocity 1 MC CV EIMS MV E/A 0.90 MC CV EIMS MV e' Velocity 0.09 MC CV EIMS Medial MV e' Velocity 0.11 MC CV EIMS Lateral MV E/e' Medial 10 MC CV EIMS MV E/e' Lateral 8.20 MC CV EIMS LV Interventricular 12 MC CV EIMS Septal Wall Thickness LV Posterior Wall 9 MC CV EIMS Thickness LV Relative Wall 38 MC CV EIMS Thickness AV mean gradient 4 MC CV EIMS LA Volume Index 21 MC CV EIMS WMSI At Rest 1 MC CV EIMS WMSI At Peak Stress 1 MC CV EIMS Anatomical Region Laterality Modality Echocardiography Specimen (Source) Anatomical Collection Method Collection Time Re ceived Time Location / / Volume Laterality 09/22/2021 12:25 PM ANALYTICAL CHEMIST Impressions 09/22/2021 8:44 PM ANALYTICAL CHEMIST STRESS TEST:Dobutamine was infused from 5 mcg/kg/min to 40 mcg/kg/min. A dose of 0.25 mg of atropine was administered. A peak heart rate of 144 BPM was achieved (93% age-predicted maximal HR). The test was terminated due to target heart rate achievement. The patient developed chest pain. The seline ECG demonstrated sinus rhythm. The baseline ECG demonstrated APC's and VPC's. With stress, there were no S-T changes. VPC's ??present at stress. The stress ECG was negative for ischemia. Please s Nursing Notes for additional information. REST IMAGES: LEFT VENTRICLE:Normal left ventricular c hamber size. Normal left ventricular geometry. Calculated 2-D linear left ventricular ejection fraction 58%. Normal left ventricular diastolic function. RIGHT VENTRICLE:Normal right ventricular chamber size. Normal right ventricular systolic function. Unable to detect peak tricuspid regurgitation velocity for pulmonary artery systolic pressure calculation. ATRIA:Normal left atrial size. Left atri al volume index 21 ml/m2. Strain imaging examination performed to assess left atrial function. Global averaged left atrial longitudinal peak systolic strain is ab normal at 11.5% (normal is greater than 35%). Normal right atrial size. CARDIAC VALVES:Indeterminate number of c usps of the aortic valve. Mildly thickened aortic valve. Aortic valve systolic mean Doppler gradient 4 mmHg. No aortic valve regurgitation. Calcified mitral annul us. Mildly thickened mitral valve. Trivi al mitral valve regurgitation. Pulmonary valve not well visualized. Trivial pulmonary valve regurgitation. Normal tricuspid valve. Trivial tricuspid valve regurgitation. OTHER ECHO FINDINGS:Normal inferior vena cava size with normal inspiratory collapse (>50%). Normal mid ascending aorta diameter (diameter 32 mm at mid level). No intracardiac mass or thrombus identified. No ??pericardial effusion. For the complete report, see the Order[employer] Documents. Narrative 09/22/2021 8:44 PM ANALYTICAL CHEMIST For the complete report, see the Order[employer]Level Documents. Final Impressions 1. Dobutamine stress echocardiogram nega tive for myocardial ischemia. 2. A peak heart rate of 144 BPM was achi eved (93% age-predicted maximal HR). 3. Ejection fraction response from 60% a t rest to 75% at peak stress. 4. Left ventricular end-systolic volume decreased with stress. 5. No regional wall motion abnormalities with stress. 6. The stress ECG was negative for ische irene. Procedure Note Cem Sherwood M.D. - 09/22/2021Form atting of this note might be different from the original. For the complete report, see the [employer] Documents. Final Impressions 1. Dobutamine stress echocardiogram nega tive for myocardial ischemia. 2. A peak heart rate of 144 BPM was achi eved (93% age-predicted maximal HR). 3. Ejection fraction response from 60% a t rest to 75% at peak stress. 4. Left ventricular end-systolic volume decreased with stress. 5. No regional wall motion abnormalities with stress. 6. The stress ECG was negative for ische irene. Findings STRESS TEST:Dobutamine was infused from 5 mcg/kg/min to 40 mcg/kg/min. A dose of 0.25 mg of atropine was administered. A peak heart rate of 144 BPM was achieved (93% age-predicted maximal HR). The test was terminated due to target heart rate achievement. The pa alysha developed chest pain. The baseline ECG demonstrated sinus rhythm. The baseline ECG demonstrated APC's and VPC's. With stress, there were no S-T changes. VPC's present at stress. The stress ECG was negative for ischemia. Please see Nursing Notes for additional information. REST IMAGES: LEFT VENTRICLE:Normal left ventricular c hamber size. Normal left ventricular geometry. Calculated 2-D linear left ventricular ejection fraction 58%. Normal left ventricular diastolic function. RIGHT VENTRICLE:Normal right ventricular chamber size. Normal right ventricular systolic function. Unable to detect peak tricuspid regurgitation velocity for pulmonary artery systolic pressure calculation. ATRIA:Normal left atrial size. Left atri al volume index 21 ml/m2. Strain imaging examination performed to assess left atrial function. Global averaged left atrial longitudinal peak systolic strain is abnormal at 11.5% (normal is greater than 35%). Norm al right atrial size. CARDIAC VALVES:Indeterminate number of c usps of the aortic valve. Mildly thickened aortic valve. Aortic valve systolic mean Doppler gradient 4 mmHg. No aortic valve regurgitation. Calcified mitral annulus. Mildly thickened mitral valve. Trivial mitral v alve regurgitation. Pulmonary valve not well visualized. Trivial pulmonary valve regurgitation. Normal tricuspid valve. Trivial tricuspid valve regurgitation. OTHER ECHO FINDINGS:Normal inferior vena cava size with normal inspiratory collapse (>50%). Normal mid ascending aorta diameter (diameter 32 mm at mid level). No intracardiac mass or thrombus identified. No pericardial effusion. For the complete report, see the Order[employer] Documents. Mark aEstman M.D., M.S. CV ECHO PROCEDURES documented in this encounter Visit Diagnoses Diagnosis Aneurysm Abdominal Aortic Without Ruptur e (HCC) documented in this encounter Administered Medications Inactive Administered Medications - up to 3 most recent administrations Medication Order MAR Action Action Date Dose Rate Site atropine injection 0.25 mg Given 09/22/2021 1:10 PM ANALYTICAL CHEMIST 0.25 mg 0.25 mg, intravenous, Once, On 09/22/21 at 1345, For 1 dose DOBUTamine 1,000 mcg/mL in D5W 250 mL New Bag 09/22/2021 1:[address] 25 mg infusion 25 mg (DOBUTREX) 25 mg, intravenous, Once, On 09/22/21 at 1345, For 1 dose, Infusion rate: 5-40 mcg/kg/min - see protocol. 250 mg in 250 mL perflutren lipid microspheres injection Given 09/22/2021 1:10 PM ANALYTICAL CHEMIST 5 mL (DEFINITY) intravenous, Once in imaging, contrast, Starting on 09/22/21 at 1342, For 1 dose, Standard concentration - perflutren lipid microsphere (DEFINITY) injection: To be administered for inclusion criteria that does not include an indication of myocardial perfusion. 1. Activate perflutren lipid microsphere by shaking the vial for 45 seconds using a Vialmix. 2. Draw up contents of vial into 10 mL syringe with 8.5 mL of 0.9% sodium chloride for a total of 10 mL. 3. Administer 0.5 mL IV push of the diluted solution. 4. Immediately flush with 0.9% sodium chloride over 10 seconds. 5. May repeat steps 3 and 4 until images are optimal or for a total of 10 mL of diluted solution being administered. See protocol. sodium chloride 0.9 % injection 10 mL Given 09/22/2021 12:40 PM ANALYTICAL CHEMIST 10 mL 10 mL, intravenous, Once, On 09/22/21 at 1345, For 1 dose, Prior to and following infusion and between multiple consecutive infusions: sodium chloride 0.9 % injection documented in this encounter
--- OUTSIDE RECORDS SUMMARY | 2022-03-31 14:45 | XMS_ITS | Encounter Summary ---
:[address] [facility] Address [address] [place] [phone] Care Team Providers Name Role Phone Unavailable Primary Care Provider Unavailable Encounter Details Date Type Department Care Team Description 09/17/2021 Clinical Communication Department of Radiation Kareem Pérez, Oncology in [place], P.A.-Estefanía., .S. [place] [address] [place] [address] [address] [place] [phone] Social History Tobacco Use Types Packs/Day Years [...] or relatives? How often do you attend orthodox or Never 2018 amish services? Do you belong to any clubs or No 02/21/2019 organizations such as orthodox groups, unions, fraternal or athletic groups, or [...] Encounter - Summer Pérez P.A.-C., M.S. - 09/17/2021 3:00 PM RESOURCE CONSERVATION SPECIALIST TSH: 17.4 mIU/L I called and spoke to the patient's [id number], Darlin, today as this is the only contact phone number we have for the patient (authorization is on file). I explained the patient's TSH result and what this means. I had previously discussed the result with Dr. Aguirre who agreed with starting the patient on levothyroxine 50 mcg daily. I shared this information with Darlin who will discuss it with the patient. We discussed the dosage and timing of taking the medication. She would like the prescription sent to [facility] in [place]. We also discussed re-checking thyroid lab work in 6 weeks, which I will order to be done again at [facility]. Darlin was in agreement with the plan and her questions were answered. I asked for her or the patient to call us back with any further questions or concerns. She verbally expressed her understanding of the plan. Summer Pérez P.A.-C. URCE CONSERVATION SPECIALIST documented in this encounter Plan of Treatment Upcoming Encounters Date Type Specialty Care Team Description 04/22/2022 Clinical Admitting/Central Communication Scheduling 04/26/2022 Appointment Radiology Mark Eastman M.D., M.S. [address] [place] [phone] 04/26/2022 Office Visit Otorhinolaryngology Roxanne Lanza, OEM SALES MANAGER, C.N.P. [address] [place] [phone] 04/28/2022 Appointment Radiation Oncology Ursula Aguirre M.D. [address] [place] [phone] documented as of this encounter Results (ABNORMAL) Thyroid Function [place] (10/29/2021 12:47 PM CDT) athologist Signature TSH, Sensitive 7.0 (H) 0.3 - 4.2 10/29/2021 [place] mIU/L 5:10 PM CDT Specimen Anatomical Collection Method Collection Time Receive d Time (Source) Location / / Volume Laterality Blood (Blood, 10/29/2021 12:47 10/29/2021 3:29 Venous) PM CDT PM CDT Summer Pérez P.A.-C., M.S. LAB BLOOD ADD-ON Performing Organization Address City/State/ZIP Code Phon e Number [facility] [address] [place] [address] [facility] [address] System in [place] [address] documented in this encounter Visit Diagnoses Diagnosis Hypothyroidism Secondary - Primary documented in this encounter
--- OUTSIDE RECORDS SUMMARY | 2022-03-31 14:45 | XMS_ITS | Encounter Summary ---
:1955 Author Organization [facility] Address [address] [place] [address] Care Team Providers Name Role Phone Unavailable [...] Expiration Date Visits Requ ested Visits Authorized [id number] 1 1 Encounter Details Date Type Department Care Team Description 10/22/2021 Anesthesia Event RST ROMB MAIN OR Aman Rasmussen M.D. [address] [place] [phone] [address] [facility] Khurram Brink, CERTIFIED ATHLETIC TRAINER, [place] [employer] [address] [place] [phone] [place] [phone] Anesthesia Record Procedure Summary Procedure Name Responsible Anesthesia Start Anesthesia Stop Anesthesiologist Time Time Endovascular abdominal Aman Rasmussen M.D. 10/22/21 1246 0 10/22/21 1803 aortic aneurysm repair with [place] endoprosthesis. Ultrasound-guided bilateral common femoral artery access. (Abdomen) Events Date Time Event Comment 10/22/2021 1246 An Start Machine/Equipmen t Checked Infection Precautions Foll owed Procedure/Site Verified NPO Sta tus Verified Supine Standard ASA Mon itors Applied 1254 An Induction 1301 An Intubation 1308 Turnover to Proceduralist 1359 Proc Start 1735 Proc Fin 1746 Turnover to ANE Staff 1746 Airway Removal Criteria Met 1746 Extubation/Airway Removed 1746 an stop data 1803 An End I completed my h andoff to the receiving staff during [facility] we 1. Identified the patient 2. Ident ified the responsible provider 3. Revi ewed the pertinent medical history 4. Discussed the surgical course 5. Review ed intra-op anesthesia management and i ssues during anesthesia 6. Set expectati ons for post-procedure period 7. Allowe d opportunity for questions and ac knowledgement of understanding. Name Total fentanyl injection 50 mcg/mL 150 mcg lidocaine 2% (mg) injection 80 mg propofol 10 mg/mL 150 mg rocuronium 10 mg/mL injection 60 mg phenylephrine 100 mcg/mL injection 500 mcg ondansetron 4 mg/2 mL injection 4 mg dexamethasone 10 mg/mL injection 4 mg phenylephrine 80 mcg/mL in NaCl 0.9% 250 mL infusion 6 .07 mg heparin 1,000 units/mL injection 10,000 Units protamine 10 mg/mL injection 30 mg acetaminophen 1,000 mg/100 mL injection 1,000 mg plasmalyte-A free drip 1,100 mL plasmalyte-A free drip 800 mL Agents No agents on file. Blood No blood administrations on file. Lines, Drains, and Airways Type Details Placement Removal Wound 10/22/21; 1658; N; 10/22/21 1658 by Incision; Groin; Left; damir Beach M.SLanny, R.N. Wound 10/22/21; 1659; N; 10/22/21 1659 by Incision; Groin; Right; damir Beach M.SLanny, R.N. Peripheral IV Placement Date: 10/22/21; 10/22/21 1112 by 10/24 1213 by Placement Time: 1112; Roxanne Irving Katelyn E, Catheter Size: 20 G; R.N. Orientation: Right; Location: Antecubital; Site Prep: Chlorhexidine (Preferred); Technique: Anatomical landmarks (vcb); Inserted by: mmb; Insertion Attempts: 1; Removal Date: 10/24/21; Removal Time: 1213; Removal Reason: Patient discharged ETT Placement Date: 10/22/21; 10/22/21 1301 by 10/22 1746 by Placement Time: 1301 Stephie Ramirez Ringhofer, Stephen (created via procedure CERTIFIED ATHLETIC TRAINER, [place], DNAP N, CERTIFIED ATHLETIC TRAINER, [employer] documentation); Mask Ventilation: Oral/Nasal airway needed (edentulous); Type: Standard ETT; Single Lumen Tube Size: 5.5 mm; Cuffed: Yes; Location: Oral; Grade View: Grade 2B; Insertion Attempts: 1; Placement Verification: Bilateral breath sounds, Fiberoptic visualization, Positive ETCO2, Symmetrical chest wall movement; Airway Comment: Glidescope size 3 blade used with 5.5 ETT loaded on slim fiberoptic scope. Mask induction with sevoflurane. Fiberoptic intubation with Glidescope visualization. Edematous supraglottic airway anatomy similar topre-operative examination by ENT. Easy tracheal intubation with fiberoptic scope, 5.5 ETT advanced easily without resistance. Patient tolerated procedure well with no immediate complications. [facility]. ; Removal Date: 10/22/21; Removal Time: 1746 Arterial Line Placement Date: 10/22/21; 10/22/21 1307 by 10/23 0900 by Placemnt Time: 1307 Stephie Ramirez Domingo, And rea K, (created via procedure CERTIFIED ATHLETIC TRAINER, [place], DNAP R.N. documentation); Size: 20 G; Orientation: Left; Location: Radial; Site Prep: Chlorhexidine (Preferred); Technique: Anatomical landmarks; Insertion Attempts: 1; Securement: Securement dressing, Securement device; Removal Date: 10/23/21; Removal Time: 0900; Removal Reason: Per order Peripheral IV Placement Date: 10/22/21; 10/22/21 1308 by 10/24 1212 by Placement Time: 1308; Stephie Ramirez Reicks, Ka telyn E, Catheter Size: 16 G; CERTIFIED ATHLETIC TRAINER, [place], DNAP R.N. Orientation: Right; Location: Forearm; Removal Date: 10/24/21; Removal Time: 1212; Removal Reason: Patient discharged Indwelling Urinary Placement Date: 10/22/21; 10/22/21 1308 by 1000 by Catheter Placement Time: 1308; Rohan Pickard Domingo, Andrea K, Inserted by: Emiliana JO; MarthaN. R.NShital Type: Non-latex; Size: 16 Fr.; Balloon Size: 10 mL; Urine Returned: Yes; Removal Date: 10/23/21; Removal Time: 1000; Removal Reason: Per order documented in this encounter Social History Tobacco Use Types Packs/Day Years [...] or relatives? How often do you attend quaker or Never 2018 muslim services? Do you belong to any clubs or No 02/21/2019 organizations such as quaker groups, unions, fraternal or athletic groups, or [...] on file documented as of this encounter OR Notes Anesthesia Postprocedure Evaluation - Khurram Brink APRN, CRNA - 10/22/2021 6:03 PM CST Patient: Obdulia Narayan Procedure Summary Date: 10/22/21 Room / Location: [address] 01 [facility] in [place], [place] Anesthesia Start: 1246 Anesthesia Stop: 1803 Procedures: IR ABDOMEN AORTA STENT GRAFT, Proceed as indicated. (N/A Abdomen) IR IMAGING. (N/A Abdomen) Diagnosis: Aneurysm Abdominal Aortic Without Rupture (HCC) (Aneurysm Abdominal Aortic Without Rupture (HCC) [I71.4].) Providers: Mark Eastman M.D., M.S. Responsible Provider: Aman Rasmussen M.D. Anesthesia Type: general ASA Status: 3 Anesthesia Type: general Last vitals Vitals Value Taken Time BP 129/70 10/22/21 1800 Temp Pulse 90 10/22/21 1803 Resp 19 10/22/21 1803 SpO2 92 % 10/22/21 180 Vitals shown include unvalidated device data. Please reference Vitals flowsheet for most recent vital signs. Anesthesia Post Evaluation Patient Disposition: monitored unit, expectation for recovery time deferred to receiving unit Cardiovascular status: hemodynamics (HR & BP) acceptable Respiratory status: patent airway with spontaneous effort Temperature: normothermic Oxygen requirements: nasal cannula Level of consciousness: sedated but awakens easily Pain score: pain adequately controlled and/or at baseline Post Op nausea/vomiting: none Hydration status: euvolemic EACH WORKER Anesthesia Procedure Notes - Stephie Ramirez APRN, CRNA, DNAP - 10/22/2021 1:07 PM CSTAssociated Order(s): Invasive Catheter Invasive Catheter Date/Time: 10/22/2021 1:07 PM Performed by: Stephie Ramirez APRN, CRNA, DNAP Authorized by: Asaf Juarez M.D. Location: OR PROCEDURE DETAILS: Line type: arterial Laterality: left Location: radial Location details: new site Age group: adult Catheter diameter: 20 Ga Technique: palpation Monitored: yes Number of attempts: 1 UNIVERSAL PROTOCOL All relevant documentation and testing were reviewed and available. All required blood products, implants, devices and or special equipment were made available as applicable. Pre-procedure verificationwas conducted and the correct site was marked if required. A fire risk assessment was done as applicable. The procedural time-out was conducted prior to performing the procedure and confirmed in a procedural pause. PRE-PROCEDURE DETAILS: Appropriate hand hygiene, gown, cap, mask, protective eyewear, sterile gloves, skin preparation, sterile drape, and strict aseptic technique were utilized as applicable for the procedure.: yes Skin preparation: chlorhexidine SEDATION / ANESTHESIA Anesthesia method: anesthesia POST-PROCEDURE DETAILS: Procedure completed successfully: yes Line secured: secured with sutureless device Chlorhexidine disc around insertion site and under catheter with slight turn: yes Complications - arterial: none ATTESTATION STATEMENT EACH WORKER Anesthesia Procedure Notes - Asaf Juarez M.D. - 10/22/2021 1:03 PM OUTREACH WORKER Associated Order(s): Airway Airway Date/Time: 10/22/2021 1:01 PM Performed by: Stephie Ramirez APRN, CRNA, DNAP Authorized by: Asaf Juarez M.D. Patient location during procedure: OR / Procedure Area PROCEDURE DETAILS: Mask difficulty assessment: oral/nasal airway needed (edentulous) Final airway type: disposable fiber optic bronchoscope Laryngeal Manipulation: no Final airway difficulty of direct laryngoscopy (DL): 1-some difficulty Final best view of glottic structures - Cormack/Lehane Score: grade 2B ETT location: oral Adult tube size: 5.5 Adult ETT distance at teeth/gum: 19 Oral tube type: standard ETT Cuffed: yes Leak test performed: yes (Documented in Comment) Number of attempt to successful placement: 1 Airway confirmation: bilateral breath sounds, positive ETCO2, bilateral chest rise and fiber optic confirmation of tube placement/position Other previous techniques attempted: none Additional Comments Glidescope size 3 blade used with 5.5 ETT loaded on slim fiberoptic scope. Mask induction with sevoflurane. Fiberoptic intubation with Glidescope visualization. Edematous supraglottic airway anatomy similar topre-operative examination by ENT. Easy tracheal intubation with fiberoptic scope, 5.5 ETT advanced easily without resistance. Patient tolerated procedure well with no immediate complications. [facility]. PRE PROCEDURE DETAILS: Pre evaluation for airway management: procedure Urgency: elective Preop assessment of probable difficulty: anticipated / known difficult airway Preoxygenation: bag valve mask SEDATION / ANESTHESIA Anesthesia method: anesthesia POST PROCEDURE DETAILS: Procedure outcome: successful Airway event: no complications ATTESTATION STATEMENT EACH WORKER Anesthesia Preprocedure Evaluation - Asaf Juarez M.D. - 10/22/2021 12:06 PM CST Preprocedure Anesthesia & H&P Assessment Procedure Summary Date/Time: 10/22/21 1207 Procedures: IR ABDOMEN AORTA STENT GRAFT, Proceed as indicated. (N/A ) IR IMAGING. (N/A ) Diagnosis: Aneurysm Abdominal Aortic Without Rupture (HCC) [I71.4] Pre-op diagnosis: Aneurysm Abdominal Aortic Without Rupture (HCC) [I71.4]. Location: [place] [address] [address] / [facility] in [place], [place] Providers: Mark Eastman M.D., M.S. Pertinent components of the patient's history including current problem list, medical history, surgical history, family history, social history, medications and allergies were reviewed. Present illnessand pre-op diagnosis were confirmed. The planned surgery / procedure was verified with the patient /legal guardian. The patient's general health condition remains unchanged RELEVANT COMORBID CONDITIONS CV (+) Hypertension Essential Primary RESP (+) Chronic Obstructive Pulmonary Disease (HCC) ENDO (+) Diabetes Mellitus Type 2 (HCC) NEURO (+) Stenosis Carotid Artery Left GENETICS (+) Diabetes Mellitus Type 2 (HCC) (+) Hyperlipidemia GI (+) Gastroesophageal Reflux Disease ONC (+) Malignant Neoplasm Of Supraglottic (HCC) Circulatory (+) Aneurysm Abdominal Aortic Without Rupture (HCC) Digestive (+) Dysphagia Other (+) Anxiety (+) Dysphonia (+) Nicotine Dependence Cigarettes In Remission (+) Obesity Body Mass Index 30-39.9 Adult OBJECTIVE PHYSICAL EXAMINATION Airway (HEENT) Mallampati: II TM Distance: >3 FB Neck ROM: Full Mouth Opening: >3 cm Upper Lip Bite Test Class: I Cardiovascular Rhythm: Regular Rate: Normal Cardiovascular Assessment: cardiovascular normal Functional Capacity: >4 METS Pulmonary Pulmonary Assessment: Clear General / Constitutional Constitutional Assessment: Overweight General State of Health:: calm Neurological Neurologic Assessment:??alert and alert and oriented x 3 Dental Dental Assessment: upper dentures and lower dentures ASSESSMENT / PLAN ANESTHESIA PLAN ASA: 3 Anesthesia Plan: general Hx of laryngeal cancer s/p radiation. Recent fiberoptic exam by ENT revealed intact vocal cords, edematous supraglotic anatomy. Discussed GETA vs MAC with surgeon, surgeon request general anesthetic. Plan for 5.5 ETT with fiberoptic placement. Patient seen and allergies reviewed, anesthesia plan and risks discussed directly with patient /legal guardian or through an metal reed tuner. Risks/Benefits/Alternatives of Blood transfusion discussed with patient / legal guardian, including an opportunity to ask questions and/or decline some or all transfusion therapies. The patient / legalguardian consented to the use of all blood products, as deemed medically necessary Approval to Proceed: approved for anesthesia EACH WORKER documented in this encounter Plan of Treatment Upcoming Encounters Date Type Specialty Care Team Description 04/22/2022 Clinical Admitting/Central Communication Scheduling 04/26/2022 Appointment Radiology Mark Eastman M.D., M.S. [address] [place] [phone] 04/26/2022 Office Visit Otorhinolaryngology Roxanne Lanza APRN, C.N.P. [address] [place] [phone] 04/28/2022 Appointment Radiation Oncology Ursula Aguirre M.D. [address] [place] [phone] documented as of this encounter Procedures Procedure Name Priority Date/Time Associated Comments Diagnosis LDA ANE ARTERIAL LINE Routine 10/22/2021 1:07 PM Results for this INSERTION OUTREACH WORKER procedure are i n the results section. HI ARTL CATH/CNULA Routine 10/22/2021 1:07 PM Res ults for this MONITOR PERC OUTREACH WORKER procedure are i n the results section. LDA ANE ENDOTRACHEAL Routine 10/22/2021 1:01 PM R esults for this AIRWAY OUTREACH WORKER procedure are i n the results section. documented in this encounter Results HI ARTL CATH/CNULA MONITOR PERC, LDA ANE ARTERIAL LINE INSERTION (10/22/2021 1:07 PM OUTREACH WORKER) Narrative Stephie Ramirez APRN, CRNA, DNAP - 10/22 1:07 PM OUTREACH WORKER Stephie Ramirez APRN, CRNA, DNAP ? 10/22/2021 ??1:08 PM Invasive Catheter Date/Time: 10/22/2021 1:07 PM Performed by: Stephie Ramirez APRN, CRNA, DNAP Authorized by: Asaf Juarez M.D. Location: OR PROCEDURE DETAILS: Line type: arterial ?? Laterality: left Location: radial Location details: new site ? Age group: adult Catheter diameter: 20 Ga Technique: palpation ?? Monitored: yes ?? Number of attempts: 1 UNIVERSAL PROTOCOL All relevant documentation and testing w ere reviewed and available. All required blood products, implants, devic es and or special equipment were made available as applicable. Pre-proced ure verification was conducted and the correct site was marked if required. A fire risk assessment was done as applicable. The procedural time-out w as conducted prior to performing the procedure and confirmed in a procedu ral pause. PRE-PROCEDURE DETAILS: Appropriate hand hygiene, gown, cap, mas k, protective eyewear, sterile gloves, skin preparation, sterile drape, and strict aseptic technique were utilized as applicable for the procedure .: yes ?? Skin preparation: chlorhexidine ?? SEDATION / ANESTHESIA Anesthesia method: anesthesia POST-PROCEDURE DETAILS: Procedure completed successfully: yes ?? Line secured: secured with sutureless de vice Chlorhexidine disc around insertion site and under catheter with slight turn: yes ?? Complications - arterial: none ATTESTATION STATEMENT Asaf Juarez M.D. PROCEDURE/MINOR SURGICAL ORD ERABLES LDA ANE ENDOTRACHEAL AIRWAY (10/22/2021 1:01 PM OUTREACH WORKER) Narrative Asaf Juarez M.D. - 10/22/2021 1: 01 PM OUTREACH WORKER Asaf Juarez M.D. ? 10/22/2021 ??1:28 PM Airway Date/Time: 10/22/2021 1:01 PM Performed by: Stephie Ramirez APRN, [place] , DNAP Authorized by: Asaf Juarez M.D. Patient location during procedure: OR / Procedure Area PROCEDURE DETAILS: Mask difficulty assessment: oral/nasal a irway needed (edentulous) Final airway type: disposable fiber opti c bronchoscope Laryngeal Manipulation: no ?? Final airway difficulty of direct laryng oscopy (DL): 1-some difficulty Final best view of glottic structures - Cormack/Lehane Score: grade 2B ETT location: oral Adult tube size: 5.5 Adult ETT distance at teeth/gum: 19 Oral tube type: standard ETT Cuffed: yes Leak test performed: yes (Documented in Comment) ?? Number of attempt to successful placemen t: 1 Airway confirmation: bilateral breath so unds, positive ETCO2, bilateral chest rise and fiber optic confirmation of tube placement/position Other previous techniques attempted: non e Additional Comments Glidescope size 3 blade used with 5.5 ET T loaded on slim fiberoptic scope. Mask induction with sevoflurane. Fibero ptic intubation with Glidescope visualization. Edematous supraglottic ai rway anatomy similar topre-operative examination by ENT. Easy tracheal intubation with fiberoptic scope, 5.5 ETT advanced easil y without resistance. Patient tolerated procedure well with no immedia te complications. [facility]. ?? PRE PROCEDURE DETAILS: Pre evaluation for airway management: pr ocedure Urgency: elective Preop assessment of probable difficulty: anticipated / known difficult airway Preoxygenation: bag valve mask SEDATION / ANESTHESIA Anesthesia method: anesthesia POST PROCEDURE DETAILS: ? Procedure outcome: successful ?? Airway event: no complications ATTESTATION STATEMENT Asaf Juarez M.D. ANESTHESIA ORDERABLES documented in this encounter Visit Diagnoses Not on filedocumented in this encounter Administered Medications Inactive Administered Medications - up to 3 most recent administrations Medication Order MAR Action Action Date Dose Rate Site acetaminophen injection Given 10/22/2021 4:59 PM OUTREACH WORKER 1,000 mg intravenous, Administer over 15 Minutes, As needed, Starting on Meredith 10/22/21 at 1659, Anesthesia Intra-op dexAMETHasone injection (DECADRON) Given 10/22/2021 1:19 PM OUTREACH WORKER 4 mg intravenous, As needed, Starting on Meredith 10/22/21 at 1319, Anesthesia Intra-op electrolyte-A solution (PLASMA-LYTE A) New Bag 10/22/2021 4:20 PM OUTREACH WORKER intravenous, Continuous Infusion: Per Instructions PRN, Starting on Meredith 10/22/21 at 1255, Anesthesia Intra-op New Bag 10/22/2021 12:55 PM OUTREACH WORKER electrolyte-A solution (PLASMA-LYTE A) New Bag 10/22/2021 1:08 PM OUTREACH WORKER intravenous, Continuous Infusion: Per Instructions PRN, Starting on Meredith 10/22/21 at 1308, Anesthesia Intra-op fentaNYL injection (SUBLIMAZE) Given 10/22/2021 4:08 PM OUTREACH WORKER 50 mcg intravenous, As needed, Starting on Meredith 10/22/21 at 1255, Anesthesia Intra-op Given 10/22/2021 1:02 PM OUTREACH WORKER 50 mcg Given 10/22/2021 12:55 PM OUTREACH WORKER 50 mcg heparin (porcine) 1,000 unit/mL Given 10/22/2021 3:17 PM OUTREACH WORKER 2,0 00 Units injection intravenous, As needed, Starting on Meredith 10/22/21 at 1437, Anesthesia Intra-op Given 10/22/2021 2:37 PM OUTREACH WORKER 8,000 Units lidocaine (PF) (cardiac) injection Given 10/22/2021 12:56 PM OUTREACH WORKER 80 mg intravenous, As needed, Starting on Meredith 10/22/21 at 1256, Anesthesia Intra-op ondansetron (PF) injection (ZOFRAN) Given 10/22/2021 4:58 PM OUTREACH WORKER 4 mg intravenous, As needed, Starting on Meredith 10/22/21 at 1658, Anesthesia Intra-op phenylephrine 80 mcg/mL Restarted 10/22/2021 4:25 PM 0.3 mcg/kg/ min 19.418 mL/hr in NaCl 0.9% 250 mL OUTREACH WORKER infusion 0-1 mcg/kg/min ? 86.3 kg Dosing weight (0-64.725 mL/hr, rounded to 0-64.73 mL/hr), intravenous, Continuous, Starting on Meredith 10/22/21 at 1315, Intra-Op, 20 mg in 250 mL, Patient Type: Standard, initiate at: Other, Rate: Per Provider, Titrate at: Other, Titrate: Per Provider, Goal: Other, Goal: Per Provider Rate/Dose Change 10/22/2021 3:30 PM OUTREACH WORKER 0.3 mcg/kg/min 19.418 mL/hr Rate/Dose Change 10/22/2021 3:11 PM OUTREACH WORKER 0.2 mcg/kg/min 12.945 mL/hr phenylephrine injection Given 10/22/2021 4:26 PM OUTREACH WORKER 200 mcg intravenous, As needed, Starting on Meredith 10/22/21 at 1310, Anesthesia Intra-op Given 10/22/2021 1:21 PM OUTREACH WORKER 100 mcg Given 10/22/2021 1:17 PM OUTREACH WORKER 100 mcg propofoL injection (DIPRIVAN) Given 10/22/2021 1:02 PM OUTREACH WORKER 70 mg intravenous, As needed, Starting on Meredith 10/22/21 at 1256, Anesthesia Intra-op Given 10/22/2021 12:59 PM OUTREACH WORKER 40 mg Given 10/22/2021 12:56 PM OUTREACH WORKER 40 mg protamine injection Given 10/22/2021 4:46 PM OUTREACH WORKER 30 mg intravenous, As needed, Starting on Meredith 10/22/21 at 1646, Anesthesia Intra-op rocuronium injection (ZEMURON) Given 10/22/2021 3:52 PM OUTREACH WORKER 10 mg intravenous, As needed, Starting on Meredith 10/22/21 at 1259, Anesthesia Intra-op Given 10/22/2021 12:59 PM OUTREACH WORKER 50 mg documented in this encounter
--- OUTSIDE RECORDS SUMMARY | 2022-03-31 14:45 | XMS_ITS | Encounter Summary ---
:1955 Author Organization [facility] Address [address] [place] [address] Care Team Providers Name Role Phone Unavailable Primary Care Provider Unavailable Reason for Referral MRI/CAT/PET Scan (Routine) - Authorized Specialty Diagnoses / Procedures Referred By Contact Refer red To Contact Radiology Diagnoses Malignant Neoplasm Of Supraglottic (HCC) Roxanne Lanza, [facility] Procedures CT Neck Soft Tissue with IV Contrast AUTO ADJUDICATION SPECIALIST, C.N.P. [address] [place] [phone] Referral ID Status Reason Start Date Expiration Date Visits V isits Requested Authorized [id number] Authorized 10/16/2021 10/16/2022 1 1 utpatient (Routine) - Authorized Specialty Diagnoses / Procedures Referred By Contact Refer red To Contact Otorhinolaryngology Roxanne Lanza [place] [facility] Toño CONDE, C.N.P. [address] [place] [phone] Referral ID Status Reason Start Date Expiration Date Visits V isits Requested Authorized [id number] Authorized 10/16/2021 10/16/2022 1 1 EYOR'S ASSISTANT Reason for Visit Outpatient (Routine) - Closed Specialty Diagnoses / Procedures Referred By Contact Refer red To Contact Otorhinolaryngology Roxanne Lanza [place] [facility] [place] AUTO ADJUDICATION SPECIALIST, C.N.P. [address] [place] [phone] Referral ID Status Reason Start Date Expiration Date Visits Requ ested Visits Authorized [id number] Closed 09/16/2021 09/16/2022 1 1 Encounter Details Date Type Department Care Team Description 10/16/2021 Office Visit Department of [place], Malignant Neop lasm Otorhinolaryngology in [facility] [place], [place] AUTO ADJUDICATION SPECIALIST, C.N.P. ([facility]) (Primary Dx) [address] [facility] [address] [place] [phone] [place], [place] [phone] Social History Tobacco Use Types Packs/Day Years [...] on file documented as of this encounter Progress Notes Roxanne Lanza, AMAYA, C.N.P. - 10/16/2021 11:30 AM CST CHIEF COMPLAINT/PURPOSE OF VISIT: 1. 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 Primary radiation to 7000 cGy in 35fractions completed May 04, 2019 2. Surveillance visit, no imaging HISTORY OF PRESENT ILLNESS: Oncology History Malignant Neoplasm Of Supraglottic (HCC) 03/13/2019 Initial Diagnosis Malignant Neoplasm Of Supraglottic (HCC) 03/26/2019 - 05/04/2019 Radiation Therapy Definitive??radiation therapy to the supraglottic tumor??to a dose of 7000??cGy in 35??fractions (once a week she received twice a day treatment) INTERVAL HISTORY: Ms. Narayan is a 66-year-old female who presents to the clinic for follow-up. She was last seen in the ENT department for surveillance May of 2020. She was treated with primary radiation to a supraglottic tumor in 2019. She had a PET scan May, which was 1 year after treatment. She presents today reporting a sore throat after vomiting last night, but prior to that she denies any head and neck symptoms. She tells me she breathes without difficulty, and typically does not have a sore throat, dysphagia, odynophagia, otalgia, palpable neck masses, hemoptysis or hematemesis. She denies otalgia. She is not smoking, or using alcohol. She was recently started on 50 mcg of levothyroxine for an elevated TSH above 17. She presents for routine surveillance CURRENT MEDICATIONS: Reviewed and updated in the EMR. ALLERGIES: Allergies Allergen Reactions ??? Penicillins Rash . PAST MEDICAL HISTORY: Past Medical History: Diagnosis Date ??? Anxiety Generalized Disorder ??? Arthritis ??? Asthma NOS ??? Chronic Obstructive Pulmonary Disease (HCC) ??? Diabetes Mellitus NOS ??? Dysphagia ??? Gastroesophageal Reflux Disease NOS ??? Hyperlipidemia ??? Hypertension NOS ??? Malignant Neoplasm Of Supraglottic (HCC) ??? Malignant Neoplasm Of Supraglottic (HCC) ??? Pneumonia SURGICAL HISTORY: Past Surgical History: Procedure Laterality Date ??? TUBAL LIGATION ??? UMBILICAL HERNIA REPAIR with mesh SOCIAL HISTORY: Social History Socioeconomic History ??? Marital status: Spouse name: Not on file ??? Number of children: Not on file ??? Years of education: Not on file ??? Highest education level: Not on file Occupational History ??? Not on file Tobacco Use ??? Smoking status: Current Every Day Smoker Packs/day: 0.75 Years: 43.00 Pack years: 32.25 Types: Cigarettes Start date: 08/15/1974 Last attempt to quit: 03/13/2019 Years since quittin.5 ??? Smokeless tobacco: Never Used Substance and Sexual Activity ??? Alcohol use: Not Currently Alcohol/week: 0.0 standard drinks ??? Drug use: Not Currently ??? Sexual activity: Not Currently Partners: Male Other Topics Concern ??? Not on file Social History Narrative ??? Not on file Social Determinants of Health Financial Resource Strain: Not on file Food Insecurity: Not on file Transportation Needs: Not on file Physical Activity: Not on file Stress: Not on file Social Connections: Not on file Intimate Partner Violence: Not on file Housing Stability: Not on file PHYSICAL EXAM: General: 66 y.o. year old female, in no acute distress. Skin: No rashes or lesions. Ears: Bilateral canals and TM's normal, scant cerumen bilaterally Nose: [place] and moist Oral Cavity: [place] and moist. Mucous membranes intact. Edentulous. Upper denture removed for exam. Floor of mouth, oral tongue, base of tongue soft to palpation. Neck: No palpable lymphadenopathy. Moderate lymphedema appreciated in the anterior/submental neck. PROCEDURE NOTE Procedure: Flexible laryngoscopy, fiberoptic, diagnostic Details: After topical anesthesia with lidocaine and phenylephrine, the flexible laryngoscope was inserted onthe right side. The nasal cavity, nasopharynx and oropharynx were normal. At the level of the larynx, the epiglottis, false vocal folds, true vocal folds, arytenoids, and pyriform sinuses are without masses or lesions. The true vocal folds move freely bilaterally. There is generalized edema of the larynx related to treatment with radiation. There is no focal lesion/ulcer/concerning finding. The patient tolerated the procedure well. DIAGNOSIS/PLAN: #1 History T2 N0 supraglottic cancer treated with primary radiation to 7000 cGy completed #2 Hypothyroidism, currently on levothyroxine 50 mcg Plan: Ms. Narayan thought any obvious evidence of disease on today's exam. I recommend reassessment in [address] neck imaging. She agrees with this plan. She should return sooner with new symptoms, questions, or concerns. PATIENT EDUCATION Ready to learn, no apparent learning barriers were identified; learning preferences include listening. Explained diagnosis and treatment plan; patient expressed understanding of the content. EYOR'S ASSISTANT documented in this encounter Plan of Treatment Upcoming Encounters Date Type Specialty Care Team Description 04/22/2022 Clinical Admitting/Central Communication Scheduling 04/26/2022 Appointment Radiology Mark Eastman M.D., M.S. [address] [place] [phone] 04/26/2022 Office Visit Otorhinolaryngology Roxanne Lanza APRN, C.N.P. [address] [place] [phone] 04/28/2022 Appointment Radiation Oncology Ursula Aguirre M.D. [address] [place] [phone] Scheduled Orders Name Type Priority Associated Diagnoses Order S chedule CT Neck Soft Imaging RAD - Routine (most Malignant Neoplasm Of Expected: Tissue with IV inpatients and all Supraglottic (HCC) 0 04/18/2022 Contrast outpatients) (Approximate), Expires: 10/16/2022 Scheduled Referrals Name Type Priority Associated Order Schedule Diagnoses Otorhinolaryngology office Outpatient Routine E xpected: visit (clinic) Referral 04/18/2022 (Approximate), Expires: 01/16/2023 documented as of this encounter Visit Diagnoses Diagnosis Malignant Neoplasm Of Supraglottic (HCC) - Primary documented in this encounter
--- OUTSIDE RECORDS SUMMARY | 2022-03-31 14:45 | XMS_ITS | Encounter Summary ---
:1955 Author Organization [facility] Address [address] [place] [address] Care Team Providers Name Role Phone Unavailable Primary Care Provider Unavailable Encounter Details Date Type Department Care Team Description 10/19/2021 Admin Visit Department of Family Medicine, [address] [phone] [facility] [phone] Social History Tobacco Use Types Packs/Day Years [...] or relatives? How often do you attend pentecostalism or Never 2018 zoroastrian services? Do you belong to any clubs or No 02/21/2019 organizations such as pentecostalism groups, unions, fraternal or athletic groups, or [...] Appointment Radiology Mark Eastman M.D., M.S. [address] [place] [phone] 04/26/2022 Office Visit Otorhinolaryngology Roxanne Lanza APRN, C.N.P. [address] [place] [phone] 04/28/2022 Appointment Radiation Oncology Ursula Aguirre M.D. 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
--- OUTSIDE RECORDS SUMMARY | 2022-03-31 14:45 | XMS_ITS | Encounter Summary ---
:1955 Author Organization [facility] Address [address] [place] [address] Care Team Providers Name Role Phone Unavailable Primary Care Provider Unavailable Encounter Details Date Type Department Care Team Description 10/16/2021 Ancillary Procedure Department of Otorhinolaryngology Social History Tobacco Use Types Packs/Day Years [...] or relatives? How often do you attend jainism or Never 2018 methodist services? Do you belong to any clubs or No 02/21/2019 organizations such as jainism groups, unions, fraternal or athletic groups, or [...] Appointment Radiology Mark Eastman M.D., M.S. [address] [place] [phone] 04/26/2022 Office Visit Otorhinolaryngology Roxanne Lanza APRN, C.N.P. [address] [place] [phone] 04/28/2022 Appointment Radiation Oncology Ursula Aguirre M.D. [address] [place] [phone] documented as of this encounter Procedures Procedure Name Priority Date/Time Associated Comments Diagnosis OTORHINOLARYNGOLOGY IMAGE Routine 10/16/2021 11:54 Results for this EXAM AM FLUMER procedure are i n the results section. documented in this encounter Results Direct Laryngoscopy-Otorhinolaryngology Image Exam (10/16/2021 11:54 AM FLUMER) Specimen (Source) Anatomical Collection Method Collection Time Re ceived Time Location / / Volume Laterality 10/16/2021 12:19 PM FLUMER Narrative [facility] - 10/16/2021 11:54 AM FLUMER This order has been created and auto-finalized [...]
--- OUTSIDE RECORDS SUMMARY | 2022-03-31 14:45 | XMS_ITS | Encounter Summary ---
:1955 Author Organization [facility] Address [address] [place] [address] Care Team Providers Name Role Phone Unavailable [...] Expiration Date Visits Requ ested Visits Authorized [id number] 1 1 Encounter Details Date Type Department Care Team Description 10/22/2021 Surgery RST ROMB MAIN OR Mark Mcneil Endovascular abdominal [address] [facility] Kimberley Frederick, M.S. aortic aneurysm repair [place], [place] 200 [facility] with [place] [id number] [place], [place] endoprosthesis. [phone] Ultrasound-guided [phone] (Wo rk) bilateral common femoral artery ac cess. Social History Tobacco Use Types Packs/Day Years [...] or relatives? How often do you attend confucianist or Never 2018 methodist services? Do you belong to any clubs or No 02/21/2019 organizations such as confucianist groups, unions, fraternal or athletic groups, or [...] Sign Reading Time Taken Comments Blood Pressure 163/81 10/22/2021 9:46 AM POWERHOUSE OPERATOR Pulse 89 10/22/2021 9:46 AM POWERHOUSE OPERATOR Temperature 36.8 ??C (98.2 ??F) 10/22/2021 9:46 AM POWERHOUSE OPERATOR Respiratory Rate 24 10/22/2021 9:46 AM POWERHOUSE OPERATOR Oxygen Saturation 100% 10/22/2021 9:46 AM POWERHOUSE OPERATOR Inhaled Oxygen Concentration - - Weight 86.3 kg (190 lb 4.1 oz) 10/22/2021 9:46 AM POWERHOUSE OPERATOR Height 164 cm (5' 4.57) 10/22/2021 9:46 AM POWERHOUSE OPERATOR Body Mass Index 31.08 10/22/2021 9:46 AM POWERHOUSE OPERATOR documented in this encounter Discharge Summaries Sanna Newman P.A.-C. - 10/24/2021 11:59 AM CST DISCHARGE SUMMARY BRIEF OVERVIEW Hospital: [facility] Discharge Provider: Mark Mcneil M.D. Primary Team: [facility] Vascular Surgery - [facility] No primary care provider on file. Primary [...] 10/22/2021 Endovascular abdominal aortic aneurysm repair with [place] endoprosthesis. Ultrasound-guided bilateral common femoral artery access., IR IMAGING., Left common femoral endarterectomy with bovine pericardial patch angioplasty Mark Mcneil M.D., M.S.Tai Colunga M.B.B.S. [facility] ROMB OR DISCHARGE DISPOSITION Home or Self [...] dismissal, pain medication (examples: oxycodone, Dilaudid, Tramadol, [place], etc.) will be prescribed to you if needed. Duration will be determined on a [id number] basis and will notexceed 2 weeks. Thereafter, [...] contact the vascular scheduling office by calling [phone]. Should you need to contact Dr. Mcneil or his service in the interim, you may do so through his medical chemist at during normal business hours of 8 to 5 Tuesday through Tuesday (excluding holidays) or, in an emergency situation, through the [facility] malt house kiln operator at (Service pager: [phone]). Mepilex Border Post-Op Ag 1. You had [...] call Dr. Mcneil's nurse practitioner through the [facility] malt house kiln operator [phone]. 7. After removing the dressing, keep the groin area clean and dry. None OUTPATIENT FOLLOW UP Scheduled Appointments 10/29/2021 8:30 AM LAB 01 [facility] Laboratory Medicine For appointment details refer to [...] were provided to the patient and caregiver(s). RHOUSE OPERATOR documented in this encounter Discharge Instructions AttachmentsThe following attachments cannot be sent through Care Everywhere. Acetaminophen (By mouth) (Solomon Islander)Oxycodone, Rapid Release (By mouth) (Sol[place] Islander) Polyethylene Glycol 3350 (By mouth) (Sol[place] Islander)Laxative, Stool Softeners (By mouth) (Sol[place] Islander)documented in this encounter Medications at Time of [...] daily. diaper,brief,adult,disposab Bag: (36 each) 36 each 03/16 [...] List Status: Pharmacy Complete Set By: Lotus Simmons Pharm.D., R.Ph. at 10/22/2021 9:55 AM Taking? Last [...] evening. diaper,brief,adult,disposable (DEPEND UNDERWEAR FOR WOMEN XL) [facility] [place], [place] 04/09/19 -- Bag: (36 each) famotidine (PEPCID) [...] of simvastatin, she will switch to atorvastatin. RHOUSE OPERATOR documented in this encounter Nursing Notes Terrie Wilson R.N. - 10/24/2021 12:40 PM CST Shift Goals: Discharge to home with son and [id number] Identify possible barriers to meeting goals/advancing plan of care: None End of Shift Summary: Vital signs stable. PIVs removed. Pain tolerable. After visit summary gone over with patient and [id number]. All questions answered. Scripts sent to home pharmacy for picker tender helper. Patient escorted out by wheelchair and discharged home. documented in this encounter OR Notes Op Note - Mark Mcneil M.D., M.S. - 10/22/2021 1:59 PM CST Date of Surgery: 10/22/2021 Procedure(s): Endovascular abdominal aortic aneurysm repair with [place] endoprosthesis. Ultrasound-guided bilateral common femoral artery access. IR IMAGING. Left common femoral endarterectomy with bovine pericardial patch angioplasty Surgeon(s) and Role: * Mark Mcneil M.D., M.S. - Primary * Tai Colunga M.B.B.S. - Back Shoe Worker Green Marketer(s): Anesthesia Type: General Pre-Operative Diagnosis: Aneurysm Abdominal Aortic Without Rupture (HCC) [I71.4]. Endovascular AAA Repair Operative Report: [facility] ENDOVASCULAR AAA REPAIR: Post-Op: Post-op diagnosis: Same [...] Concomitant embolization: None Device comments: Main body [id number] Right limb [id number] Complications: Any complications/Endoleak: Non-endoleak complication and endoleak [...] was established, we upsized to a 5- Kazakh sheath using a Seldinger technique. Two Perclose devices were then deployed in a preclose technique for later arterial closure. We then upsized to 8-Kazakh sheaths. A Lunderquist wire was advanced into [...] before completion and flow was restored with zoroastrianism of Doppler signal in the foot. Protamine [...] Implants: Implant Name LRB Site No. Used Rehab Liaison Mfr No. Serial No. Status Type GRFT EXC AAA [place] BDY [id number] - [id number] - [id number] N/A 1 [place] [id number] Implanted Vascular Graft GRFT EXC AAA EXT 12X12 - [id number] - [id number] N/A 1 [place] [id number] Implanted Vascular Graft CLP HRZN TI 6 CLP MD MADDISON - [id number] N/A 1 [employer] [id number] Implanted Hardware e.g. pins/screws/rods CLP LGC LGT TI SM - [id number] N/A 1 [employer] [id number] Implanted Hardware e.g. pins/screws/rods CLP HRZN TI 6 CLP [place] - [id number] N/A 2 [employer] [id number] Implanted Hardware e.g. pins/screws/rods GRFT VSC BOV 0.8X8 - [id number] N/A 1 [employer] [id number] Implanted Mesh or Patch Intra-op Medications: Intra-op Medications Date/Time Order Dose Route Action Action by 10/22/2021 1700 heparin 10 Units/mL in NaCl 0.9% 500 mL flush solution 400 mL miscellaneous Given Tarun, R 10/22/2021 1703 iodixanol (VISIPAQUE) 160 mg/mL in NaCl 0.9% injection 133 mL injection Given Keanu, A 10/22/2021 1711 phenylephrine 80 mcg/mL in NaCl 0.9% 250 mL infusion 0 mcg/kg/min intravenous [facility]pped [facility] 10/22/2021 1625 phenylephrine 80 mcg/mL in NaCl 0.9% 250 mL infusion 0.3 mcg/kg/min intravenous Restarted [facility] 10/22/2021 1609 phenylephrine 80 mcg/mL in NaCl 0.9% 250 mL infusion 0 mcg/kg/min intravenous Stopped [facility], [facility] 10/22/2021 1530 phenylephrine 80 mcg/mL in NaCl 0.9% 250 mL infusion 0.3 mcg/kg/min intravenous Rate/Dose Change [facility] 10/22/2021 1511 phenylephrine 80 mcg/mL in NaCl 0.9% 250 mL infusion 0.2 mcg/kg/min intravenous Rate[facility]ose [facility] 10/22/2021 1440 phenylephrine 80 mcg/mL in NaCl 0.9% 250 mL infusion 0.4 mcg/kg/min intravenous Rate/Dose Change [facility], [facility] 10/22/2021 1432 phenylephrine 80 mcg/mL in NaCl 0.9% 250 mL infusion 0.2 mcg/kg/min intravenous Rate/Dose Change [facility], [facility] 10/22/2021 1348 phenylephrine 80 mcg/mL in NaCl 0.9% 250 mL infusion 0.5 mcg/kg/min intravenous Rate/Dose Change [facility], [facility] 10/22/2021 1334 phenylephrine 80 mcg/mL in NaCl 0.9% 250 mL infusion 0.3 mcg/kg/min intravenous Rate/Dose Change Amelia Brink 10/22/2021 1326 phenylephrine 80 mcg/mL in NaCl 0.9% 250 mL infusion 0.1 mcg/kg/min intravenous NewBag Amelia Brink 10/22/2021 1654 cellulose, oxidized 1 X 2 pad (SURGICEL) 1 each topical Given Dm Colunga 10/22/2021 1654 thrombin (recombinant) topical solution (RECOTHROM) 5,000 Units topical Given Dm Colunga M.D., M.S. RHOUSE OPERATOR Brief Op Note - Tai Colunga M.B.B.S. - 10/22/2021 1:59 PM CST Pre-op Diagnosis Aneurysm Abdominal Aortic Without Rupture (HCC) Post-op Diagnosis Aneurysm Abdominal Aortic Without Rupture (HCC) Procedure EVAR for infrarenal AAA Left femoral endarterectomy with patch angioplasty Valdez BlairSShital RHOUSE OPERATOR documented in this encounter Miscellaneous Notes Hospital [...] monitored primary care provider for ongoing management. RHOUSE OPERATOR documented in this encounter Plan of Treatment Upcoming Encounters Date Type Specialty Care Team Description 04/22/2022 Clinical Admitting/Central Communication Scheduling 04/26/2022 Appointment Radiology Mark Mcneil M.D., M.S. [address] [place] [phone] 04/26/2022 Office Visit Otorhinolaryngology Roxanne Lanza APRN, C.N.P. [address] [place] [phone] 04/28/2022 Appointment Radiation Oncology Ursula Aguirre M.D. [address] [place] [phone] documented as of this encounter Procedures Procedure Name Priority Date/Time Associated Comments Diagnosis ECG Routine 10/24/2021 11:08 Results for AM POWERHOUSE OPERATOR this procedure are in the results section. ADULT OXYGEN THERAPY Routine 10/23/2021 8:01 AM POWERHOUSE OPERATOR CBC WITHOUT Routine 10/23/2021 4:53 Results for DIFFERENTIAL, B AM POWERHOUSE OPERATOR this procedu re are in the results section. BASIC METABOLIC Routine 10/23/2021 4:53 Results f or PANEL, S/P AM POWERHOUSE OPERATOR this procedure are in the results section. TROPONIN T, 2H/6H, Timed 10/22/2021 10:58 Resul ts for 5TH GEN, P PM POWERHOUSE OPERATOR this procedure are in the results section. TROPONIN T, BASELINE, STAT 10/22/2021 8:51 Res ults for 5TH GEN, P PM POWERHOUSE OPERATOR this procedure are in the results section. ECG STAT 10/22/2021 8:43 Results for PM POWERHOUSE OPERATOR this procedure are in the results section. ADULT OXYGEN THERAPY Routine 10/22/2021 8:25 PM POWERHOUSE OPERATOR ADULT OXYGEN THERAPY Routine 10/22/2021 8:25 PM POWERHOUSE OPERATOR ADULT OXYGEN THERAPY Routine 10/22/2021 8:25 PM POWERHOUSE OPERATOR GLUCOSE POCT, B Routine 10/22/2021 6:16 Results f or PM POWERHOUSE OPERATOR this procedure are in the results section. IR IMAGING RAD - Routine 10/22/2021 5:49 Aneurysm Results for (most inpatients PM POWERHOUSE OPERATOR Abdominal Aortic this pr ocedure and all Without Rupture are in the outpatients) ([facility]) results section. IR ABDOMEN AORTA RAD - Routine 10/22/2021 5:49 Aneurysm Results for STENT GRAFT (most inpatients PM POWERHOUSE OPERATOR Abdominal Aortic this pr ocedure and all Without Rupture are in the outpatients) ([facility]) results section. IR FEMORAL ARTERY RAD - Routine 10/22/2021 5:49 Aneurysm Result s for ENDARTERECTOMY (most inpatients PM POWERHOUSE OPERATOR Abdominal Aortic this procedure and all Without Rupture are in the outpatients) ([facility]) results section. ACT, POCT, B Routine 10/22/2021 3:40 Results for PM POWERHOUSE OPERATOR this procedure are in the results section. GLUCOSE POCT, B Routine 10/22/2021 3:39 Results f or PM POWERHOUSE OPERATOR this procedure are in the results section. ACT, POCT, B Routine 10/22/2021 3:13 Results for PM POWERHOUSE OPERATOR this procedure are in the results section. ACT, POCT, B Routine 10/22/2021 2:47 Results for PM POWERHOUSE OPERATOR this procedure are in the results section. SODIUM, B STAT 10/22/2021 1:43 Results for PM POWERHOUSE OPERATOR this procedure are in the results section. ABG W/COOX STAT 10/22/2021 1:43 Results for PM POWERHOUSE OPERATOR this procedure are in the results section. POTASSIUM, B STAT 10/22/2021 1:43 Results for PM POWERHOUSE OPERATOR this procedure are in the results section. GLUCOSE, WHOLE BLOOD STAT 10/22/2021 1:43 Resu lts for PM POWERHOUSE OPERATOR this procedure are in the results section. CALCIUM, IONIZED, S/B STAT 10/22/2021 1:43 Res ults for PM POWERHOUSE OPERATOR this procedure are in the results section. ACT, POCT, B Routine 10/22/2021 1:41 Results for PM POWERHOUSE OPERATOR this procedure are in the results section. ADULT OXYGEN THERAPY Routine 10/22/2021 12:12 PM POWERHOUSE OPERATOR GLUCOSE POCT, B Routine 10/22/2021 11:10 Results for AM POWERHOUSE OPERATOR this procedure are in the results section. documented in this encounter Results ECG 12 Lead (10/24/2021 11:08 AM POWERHOUSE OPERATOR) P athologist Signature Ventricular Rate 94 BPM MUSE ECG/Min NC Interval 162 ms MUSE QRSD Interval 78 ms MUSE QT Interval 360 ms MUSE QTC Interval 450 ms MUSE P [place] 15 degrees MUSE R [place] -1 degrees MUSE T Wave [place] 46 degrees MUSE Specimen Anatomical Collection Method Collection Time Receive d Time (Source) Location / / Volume Laterality 10/24/2021 11:08 10/24/2021 AM POWERHOUSE OPERATOR 11:27 AM POWERHOUSE OPERATOR Impressions MUSE - 10/24/2021 11:27 AM POWERHOUSE OPERATOR Normal sinus rhythm Nonspecific ST abnormality When [...] (ABNORMAL) Basic Metabolic Panel (10/23/2021 4:53 AM POWERHOUSE OPERATOR) P athologist Signature Potassium, S 4.1 3.6 - 5.2 10/23/2021 DTL mmol/L 6:08 AM POWERHOUSE OPERATOR Sodium, S 137 135 - 145 10/23/2021 DTL mmol/L 6:08 AM POWERHOUSE OPERATOR Chloride, S 102 98 - 107 10/23/2021 DTL mmol/L 6:08 AM POWERHOUSE OPERATOR Bicarbonate, S 24 22 - 29 10/23/2021 DTL mmol/L 6:08 AM POWERHOUSE OPERATOR Anion Gap 11 7 - 15 10/23/2021 DTL 6:08 AM POWERHOUSE OPERATOR BUN (Blood 15 6 - 21 10/23/2021 DTL Urea mg/dL 6:08 AM POWERHOUSE OPERATOR Nitrogen), S Creatinine, S 1.08 (H) 0.59 - 10/23/2021 DTL 1.04 mg/dL 6:08 AM POWERHOUSE OPERATOR eGFR-Non 54 (L) >=60 10/23/2021 DTL Black/ mL/min/BSA 6:08 AM POWERHOUSE OPERATOR Panamanian Comment: ----ADDITIONAL INFORMATION---- Estimated GFR calculated using the 2009 CKD_EPI creatinine equation. eGFR-Black/ 62 >=60 mL/min/BSA 2021 6:08 AM POWERHOUSE OPERATOR DTL Comment: ----ADDITIONAL INFORMATION---- Estimated GFR calculated using the 2009 CKD_EPI creatinine equation. Calcium, Total, S 8.1 (L) 8.8 - 10.2 mg/dL 10/23/2021 6:08 AM POWERHOUSE OPERATOR DTL Glucose, S 143 (H) 70 - 140 mg/dL 10/23/2021 6:08 AM POWERHOUSE OPERATOR D TL Specimen Anatomical Collection Method Collection Time Receive d Time (Source) Location / / Volume Laterality Blood (Blood, 10/23/2021 4:53 AM 10/24/19 5:50 Venous) POWERHOUSE OPERATOR AM POWERHOUSE OPERATOR Tai Chiu LAB BLOOD ADD-ON Performing Organization Address City/State/ZIP Code Phon e Number [facility] ER LABORATORIES - [address] [place], [place] [address] [facility] [address] [facility] [address] (ABNORMAL) CBC without Differential (10/23/2021 4:53 AM POWERHOUSE OPERATOR) Patholo gist Method Time Signature Hemoglobin 9.3 (L) 11.6 - 10/23/2021 DTL 15.0 g/dL 5:40 AM POWERHOUSE OPERATOR Hematocrit 28.5 (L) 35.5 - 10/23/2021 DTL 44.9 % 5:40 AM POWERHOUSE OPERATOR Erythrocytes 3.26 (L) 3.92 - 10/23/2021 DTL 5.13 5:40 AM POWERHOUSE OPERATOR x10(12)/L MCV 87.4 78.2 - 10/23/2021 DTL 97.9 fL 5:40 AM POWERHOUSE OPERATOR RBC Distrib Width 15.0 12.2 - 10/23/2021 DTL 16.1 % 5:40 AM POWERHOUSE OPERATOR Platelet Count 202 157 - 371 10/23/2021 DTL x10(9)/L 5:40 AM POWERHOUSE OPERATOR Leukocytes 7.3 3.4 - 9.6 10/23/2021 DTL x10(9)/L 5:40 AM POWERHOUSE OPERATOR Specimen Anatomical Collection Method Collection Time Receive d Time (Source) Location / / Volume Laterality Blood (Blood, 10/23/2021 4:53 AM 10/24/19 22 5:33 Venous) POWERHOUSE OPERATOR AM POWERHOUSE OPERATOR Tai Chiu LAB BLOOD ADD-ON Performing Organization Address City/State/ZIP Code Phon e Number [facility] ER LAB[facility]ATORIES - [address] [place], [place] [address] [facility] [place] [address] [facility] [address] [facility] Troponin T, 2H/6H, 5th Gen (10/22/2021 10:58 PM POWERHOUSE OPERATOR) [facility] Method Time Signature Troponin T, 2 7 <=10 ng/L 10/22/2021 STMA hr, 5th gen 11:42 PM POWERHOUSE OPERATOR 2H Delta 0 ng/L 10/22/2021 STMA 11:42 PM POWERHOUSE OPERATOR 2H Delta Not Changing 10/22/2021 STMA Interp 11:42 PM POWERHOUSE OPERATOR Troponin T, 6 CANCELED ng/L 10/22/2021 STMA hr, 5th gen 11:42 PM POWERHOUSE OPERATOR Comment: Result canceled by the ancnatalia y. Specimen Anatomical Collection Method Collection Time Receive d Time (Source) Location / / Volume Laterality Blood (Blood, 10/22/2021 10:58 10/22/2021 Venous) PM POWERHOUSE OPERATOR 11:12 PM POWERHOUSE OPERATOR Narrative [facility] - [facility] - 10/22/2021 11:42 PM POWERHOUSE OPERATOR Specimen Information: Specimen ID: [id number] Specimen Type: Blood Specimen Collection Start Date: 10/23/19 10:58 PM Specimen Received Date: 10/22/2021 11:12 PM Specimen ID: [id number] Specimen Type: Blood Specimen Collection Start Date: 10/23/19 11:42 PM Specimen Received Date: 10/22/2021 11:42 PM Tai CummingsB.S. LAB BLOOD TROPONIN Performing Organization Address City/[facility]/ZIP [facility] Phon e Number [facility] - [address] [place] [address] Troponin T, Baseline, 5th gen (10/22/2021 8:51 PM POWERHOUSE OPERATOR) athologist Signature Troponin T, 7 <=10 ng/L 10/22/[address] [facility] [facility] Baseline, 5th 9:26 PM POWERHOUSE OPERATOR gen Specimen Anatomical Collection Method Collection Time Receive d Time (Source) Location / / Volume Laterality Blood (Blood, 10/22/2021 8:51 PM 10/23/19 9:05 Venous) POWERHOUSE OPERATOR PM POWERHOUSE OPERATOR Tia CummingsB.S. LAB BLOOD TROPONIN Performing Organization Address City/[facility]/ZIP [facility] Phon e Number [facility] - [address] ECG 12 Lead (10/22/2021 8:43 PM POWERHOUSE OPERATOR) athologist Signature Ventricular Rate 66 BPM MUSE ECG/Min NC Interval 186 ms MUSE QRSD Interval 82 ms MUSE QT Interval 452 ms MUSE QTC Interval 473 ms MUSE P [place] 41 degrees MUSE R [place] 8 degrees MUSE T Wave [place] 45 degrees MUSE Specimen Anatomical Collection Method Collection Time Receive d Time (Source) Location / / Volume Laterality 10/22/2021 8:43 PM 8:51 POWERHOUSE OPERATOR PM POWERHOUSE OPERATOR Impressions MUSE - 10/22/2021 8:51 PM POWERHOUSE OPERATOR Normal sinus rhythm Normal ECG When compared [...] was found Reviewed by LEILANI Fraga Tai CummingsBShitalSShital ECG ORDERABLES Performing Organization Address City/State/ZIP Code Phon e Number MUSE MUSE NA (ABNORMAL) Glucose, POCT (10/22/2021 6:16 PM POWERHOUSE OPERATOR) [facility] Time Signature Glucose, POCT, 197 (H) 70 - 140 10/22/2021 PCLX B mg/dL 6:23 PM POWERHOUSE OPERATOR Site Capillary 10/22/2021 PCLX 6:23 PM POWERHOUSE OPERATOR Specimen Anatomical Collection Method Collection Time Receive d Time (Source) Location / / Volume Laterality Blood 10/22/2021 6:16 PM 6:23 POWERHOUSE OPERATOR PM POWERHOUSE OPERATOR Unknown Provider LAB POCT ORDERABLES-MANUAL Performing Organization Address City/State/ZIP Code Phon e Number POC [facility] [address] [place] [address] PCLX [facility] [place] [address] Caret POC [address] IR FEMORAL ARTERY ENDARTERECTOMY (10/22/2021 5:49 PM POWERHOUSE OPERATOR) Anatomical Region Laterality Modality Lower Extremity, Vascular Interventional RST LOS N/A Other Specimen (Source) Anatomical Location Collection Method / Collectio n Time Received Time / Laterality Volume Narrative 10/26/2021 11:34 AM CDT Performed by surgeon - see Op Note for r esult. Mark Mcneil M.D., M.S. IMG IR PROCEDURES IR IMAGING (10/22/2021 5:49 PM POWERHOUSE OPERATOR) Anatomical Region Laterality Modality N/A Other Specimen (Source) Anatomical Location Collection Method / Collectio n Time Received Time / Laterality Volume Narrative 10/26/2021 11:34 AM CDT Performed by surgeon - see Op Note for r esult. Mark Mcneil M.D., M.S. IMG IR PROCEDURES IR ABDOMEN AORTA STENT GRAFT (10/22/2021 5:49 PM POWERHOUSE OPERATOR) Anatomical Region Laterality Modality Abdomen, Vascular Interventional RST LOS N/A Other Specimen (Source) Anatomical Location Collection Method / Collectio n Time Received Time / Laterality Volume Narrative 10/26/2021 11:34 AM CDT Performed by surgeon - see Op Note for r esult. Mark Mcneil M.D., M.S. IMG IR PROCEDURES (ABNORMAL) ACT (Activated Clotting Time), POCT (10/22/2021 3:40 PM POWERHOUSE OPERATOR) athologist Signature Activated 227 (H) 84 - 139 10/22/2021 PCSM Clotting Time, sec 3:45 PM POWERHOUSE OPERATOR POCT Specimen Anatomical Collection Method Collection Time Receive d Time (Source) Location / / Volume Laterality Blood 10/22/2021 3:40 PM 2 3:45 POWERHOUSE OPERATOR PM POWERHOUSE OPERATOR Unknown Provider LAB POCT ORDERABLES - DEVICE Performing Organization Address City/State/ZIP [facility] Phon e Number POC RST [facility] INPATIENT [address] [place], [place] [address] LABS [place] [place], [place] [id number] [place] [address] (ABNORMAL) Glucose, POCT (10/22/2021 3:39 PM POWERHOUSE OPERATOR) athologist Signature Glucose, POCT, 153 (H) 70 - 140 10/22/2021 PCSM B mg/dL 3:41 PM POWERHOUSE OPERATOR Site ARTLINE 10/22/2021 PCSM 3:41 PM POWERHOUSE OPERATOR Specimen Anatomical Collection Method Collection Time Receive d Time (Source) Location / / Volume Laterality Blood 10/22/2021 3:39 PM 2 3:41 POWERHOUSE OPERATOR PM POWERHOUSE OPERATOR Unknown Provider LAB POCT ORDERABLES-MANUAL Performing Organization Address City/State/ZIP [facility] Phon e Number POC RST [facility] INPATIENT [address] [place], [place] [address] [place] [address] Caret POC [address] (ABNORMAL) ACT (Activated Clotting Time), POCT (10/22/2021 3:13 PM POWERHOUSE OPERATOR) athologist Signature Activated 211 (H) 84 - 139 10/22/2021 PCSM Clotting Time, sec 3:17 PM POWERHOUSE OPERATOR POCT Specimen Anatomical Collection Method Collection Time Receive d Time (Source) Location / / Volume Laterality Blood 10/22/2021 3:13 PM 2 3:17 POWERHOUSE OPERATOR PM POWERHOUSE OPERATOR Unknown Provider LAB POCT ORDERABLES - DEVICE Performing Organization Address [facility]/ZIP [facility] Phon e Number POC RST [facility] INPATIENT [address] [place], [place] [address] [place] [address] Caret POC [address] (ABNORMAL) ACT (Activated Clotting Time), POCT (10/22/2021 2:47 PM POWERHOUSE OPERATOR) athologist Signature Activated 239 (H) 84 - 139 10/22/2021 PCSM Clotting Time, sec 2:54 PM POWERHOUSE OPERATOR POCT Specimen Anatomical Collection Method Collection Time Receive d Time (Source) Location / / Volume Laterality Blood 10/22/2021 2:47 PM 2 2:54 POWERHOUSE OPERATOR PM POWERHOUSE OPERATOR Unknown Provider LAB POCT ORDERABLES - DEVICE Performing Organization Address [facility] Phon e Number POC RST [facility] INPATIENT [address] [place], [place] [address] [place] [address] Caret POC [address] Glucose, Whole Blood (10/22/2021 1:43 PM POWERHOUSE OPERATOR) athologist Signature Glucose 125 70 - 140 10/22/2021 1:45 STMA mg/dL PM POWERHOUSE OPERATOR Specimen Anatomical Collection Method Collection Time Receive d Time (Source) Location / / Volume Laterality Blood (Blood, 10/22/2021 1:43 PM 10/23/19 22 1:43 Arterial Line) POWERHOUSE OPERATOR PM POWERHOUSE OPERATOR Asaf Juarez M.D. LAB BLOOD TROPONIN Performing Organization Address City/[facility] Phon e Number [facility] - [address] [place], [place] [address] [facility] [place] [address] [facility] Main [place] [address] (ABNORMAL) Potassium, Blood (10/22/2021 1:43 PM POWERHOUSE OPERATOR) athologist Signature Potassium, B 3.5 (L) 3.6 - 5.2 10/22/2021 [facility] mmol/L 1:45 PM POWERHOUSE OPERATOR Specimen Anatomical Collection Method Collection Time Receive d Time (Source) Location / / Volume Laterality Blood (Blood, 10/22/2021 1:43 PM 10/23/19 1:43 Arterial Line) POWERHOUSE OPERATOR PM POWERHOUSE OPERATOR Asaf Juarez M.D. LAB BLOOD NON ADD-ON Performing Organization Address City/State/ZIP Code Phon e Number [facility] - [address] [place], [place] [address] [place] [address] [facility] [address] [facility] Sodium, B (10/22/2021 1:43 PM POWERHOUSE OPERATOR) P athologist Signature Sodium, B 139 135 - 145 10/22/2021 1:45 [facility] mmol/L PM POWERHOUSE OPERATOR Specimen Anatomical Collection Method Collection Time Receive d Time (Source) Location / / Volume Laterality Blood (Blood, 10/22/2021 1:43 PM 10/23/19 1:43 Arterial Line) POWERHOUSE OPERATOR PM POWERHOUSE OPERATOR Asaf Juarez M.D. LAB BLOOD NON ADD-ON Performing Organization Address City/State/ZIP Code Phon e Number [facility] - [address] [place], [place] [address] [place] [address] [facility] [address] (ABNORMAL) Calcium, Ionized (10/22/2021 1:43 PM POWERHOUSE OPERATOR) P athologist Signature Calcium, 4.52 (L) 4.65 - 10/22/2021 [facility] Ionized, B 5.30 mg/dL 1:45 PM POWERHOUSE OPERATOR Specimen Anatomical Collection Method Collection Time Receive d Time (Source) Location / / Volume Laterality Blood (Blood, 10/22/2021 1:43 PM 10/23/19 1:43 Arterial Line) POWERHOUSE OPERATOR PM POWERHOUSE OPERATOR Asaf Juarez M.D. LAB BLOOD NON ADD-ON Performing Organization Address City/State/ZIP Code Phon e Number [facility] - [address] [place], [place] [address] [facility] [place] [address] [facility] [address] (ABNORMAL) Blood Gas with Coox, Arterial (10/22/2021 1:43 PM POWERHOUSE OPERATOR) athologist Signature pO2 227 (H) 83 - 108 10/22/2021 [facility] mm Hg 1:45 PM POWERHOUSE OPERATOR pCO2 43 32 - 45 mm 10/22/2021 [facility] Hg 1:45 PM POWERHOUSE OPERATOR pH 7.38 7.35 - 10/22/2021 [facility] 7.45 pH 1:45 PM POWERHOUSE OPERATOR Base Excess 0 -2 - 3 10/22/2021 [facility] mmol/L 1:45 PM POWERHOUSE OPERATOR HCO3 25 22 - 26 10/22/2021 [facility] mmol/L 1:45 PM POWERHOUSE OPERATOR Hemoglobin, B 10.0 (L) 11.6 - 10/22/2021 [facility] 15.0 g/dL 1:45 PM POWERHOUSE OPERATOR O2Hb 98.4 (H) 94.0 - 10/22/2021 [facility] 98.0 % 1:45 PM POWERHOUSE OPERATOR COHb 1.1 <3.0 % 10/22/2021 [facility] 1:45 PM POWERHOUSE OPERATOR MetHb <1.0 <1.5 % 10/22/2021 [facility] 1:45 PM POWERHOUSE OPERATOR CtO2 14.4 (L) 18.0 - 10/22/2021 [facility] 21.0 vol % 1:45 PM POWERHOUSE OPERATOR Specimen Anatomical Collection Method Collection Time Receive d Time (Source) Location / / Volume Laterality Blood (Blood, 10/22/2021 1:43 PM 10/23/19 1:43 Arterial Line) POWERHOUSE OPERATOR PM POWERHOUSE OPERATOR Asaf Juarez M.D. LAB BLOOD NON ADD-ON Performing Organization Address City/State/ZIP Code Phon e Number [facility] - [address] [place], [place] [address] [facility] [place] [address] [facility] [address] ACT (Activated Clotting Time), POCT (10/22/2021 1:41 PM POWERHOUSE OPERATOR) athologist Signature Activated 131 84 - 139 10/22/2021 [facility] Clotting Time, sec 1:45 PM POWERHOUSE OPERATOR POCT Specimen Anatomical Collection Method Collection Time Receive d Time (Source) Location / / Volume Laterality Blood 10/22/2021 1:41 PM 2 1:45 POWERHOUSE OPERATOR PM POWERHOUSE OPERATOR Unknown Provider LAB POCT ORDERABLES - DEVICE Performing Organization Address City/State/ZIP Code Phon e Number [facility] [address] [place], [place] [address] [place] [address] [facility] [address] [place] [address] Glucose, POCT (10/22/2021 11:10 AM POWERHOUSE OPERATOR) Analysis Performed At Patho logist Time Signature Glucose, POCT, 131 70 - 140 10/22/2021 [facility] B mg/dL 11:21 AM POWERHOUSE OPERATOR Site Capillary 10/22/2021 [facility] 11:21 AM POWERHOUSE OPERATOR Specimen Anatomical Collection Method Collection Time Receive d Time (Source) Location / / Volume Laterality Blood 10/22/2021 11:10 10/22/2021 AM POWERHOUSE OPERATOR 11:21 AM POWERHOUSE OPERATOR Unknown Provider LAB POCT ORDERABLES-MANUAL Performing Organization Address [facility] Phon e Number [facility] [address] [place] [address] [place] [address] [facility] 200 [facility] documented in this encounter Visit Diagnoses Diagnosis [...] tablet 1,000 mg Given 10/24/2021 9:03 AM POWERHOUSE OPERATOR 1,000 mg (TYLENOL) 1,000 mg, oral, 4 times daily, First dose on Meredith 10/22/21 at 2145 Given 10/23/2021 8:50 PM POWERHOUSE OPERATOR 1,000 mg Given 10/23/2021 5:27 PM POWERHOUSE OPERATOR 1,000 mg albuterol nebulizer solution 2.5 mg 2.5 mg, nebulization, Every 6 hours PRN, wheezing, shortness of breath, Starting on Meredith 10/22/21 at 2138 albuterol nebulizer solution 2.5 mg Given 10/24/2021 9:05 AM POWERHOUSE OPERATOR 2.5 mg 2.5 mg, nebulization, 2 times daily, First dose on Tue10/23/21 at 0900 Given 10/23/2021 9:06 PM POWERHOUSE OPERATOR 2.5 mg Given 10/23/2021 9:34 AM POWERHOUSE OPERATOR 2.5 mg aspirin chewable tablet 81 mg Given 10/23/2021 5:28 PM POWERHOUSE OPERATOR 81 mg 81 mg, oral, Every evening, First dose on Tue10/22/21 at 2130 Given 10/22/2021 10:06 PM POWERHOUSE OPERATOR 81 mg atorvastatin tablet 20 mg (LIPITOR) Given 10/23/2021 8:51 PM POWERHOUSE OPERATOR 20 mg 20 mg, oral, Daily at bedtime, First dose on Tue10/22/21 at 2145 Given 10/22/2021 10:06 PM POWERHOUSE OPERATOR 20 mg bisacodyL suppository 10 mg (DULCOLAX) 10 mg, rectal, Daily PRN, constipation, Starting on Tue10/22/21 at 2024, Ordered sequence of administration: polyethylene glycol, then bisacodyl until BM achieved. cellulose, oxidized 1 X 2 pad (SURGICE L) Given 10/22/2021 4:54 PM POWERHOUSE OPERATOR 1 each As needed, Starting on Tue10/22/21 at 1654, Intra-Op famotidine tablet 20 mg (PEPCID) Given 10/23/2021 8:50 PM POWERHOUSE OPERATOR 20 mg 20 mg, oral, Daily at bedtime, First dose on Tue10/22/21 at 2145, Drug Monitoring Program: Pharmacist to adjust medication dosing based on indication and drug clearance factors. Given 10/22/2021 10:06 PM POWERHOUSE OPERATOR 20 mg fentaNYL injection 25 mcg (SUBLIMAZE) Given 10/22/2021 9:01 PM POWERHOUSE OPERATOR 25 mcg 25 mcg, intravenous, Every 1 hour PRN, moderate pain or score 4-6 of 10, severe pain or score 7-10 of 10, if patient is unable to take oral analgesics, Starting on Tue10/22/21 at 2024, For 2 doses fluticasone furoate-vilanteroL 100-25 Given 10/24/2021 9:[address] 1 puff mcg/actuation inhaler 1 puff (BREO ELLIPTA DISKUS) 1 puff, inhalation, Daily (RT), First dose on Tue10/23/21 at 0800, fluticasone/vilanterol diskus 100/25 mcg was interchanged for Budesonide/Formoterol Given 10/23/2021 9:48 AM POWERHOUSE OPERATOR 1 puff haloperidol lactate injection 1 mg (HALD OL) 1 mg, intravenous, Every 6 hours PRN, na usea, vomiting, Starting on Tue10/22/21 at 2024, For 48 hours, Total of 3 doses in 24 hour period. RASS must be -2 or higher to administer. Reassess for nausea or vo miting after at least 10 minutes. If nausea or vomiting persists administer next ordered antiemeti c medications (order for antiemetic medication administration ondansetron then haloperidol then promethazine) heparin (porcine) Given 10/24/2021 5:27 AM POWERHOUSE OPERATOR 5,000 Units Left Lower Abdomen injection 5,000 Units 5,000 Units, subcutaneous, Every 8 hours scheduled, First dose on Tue10/23/21 at 0600 Given 10/23/2021 9:20 PM POWERHOUSE OPERATOR 5,000 Units Left Lower Abdomen Given 10/23/2021 2:43 PM POWERHOUSE OPERATOR 5,000 Units Left Upper Arm heparin 10 Units/mL in NaCl 0.9% 500 mL flush Given 5:00 PM POWERHOUSE OPERATOR 400 mL solution miscellaneous, Once in surgery, OR use only, Starting on Tue10/22/21 at 1223, For 1 dose, Intra-Op, *Flush/Irrigation use only* hydroCHLOROthiazide tablet 25 mg (HYDROD IURIL) Given 10/23/2021 5:28 PM POWERHOUSE OPERATOR 25 mg 25 mg, oral, Every evening, First dose on Tue10/22/21 at 2145 Given 10/22/2021 10:06 PM POWERHOUSE OPERATOR 25 mg HYDROmorphone (PF) injection 0.4 mg [...] greater after HYDROmorphone administration, call provi oriana. iodixanol (VISIPAQUE) 160 mg/mL in NaCl 0.9% Given 05/2022 5:03 PM POWERHOUSE OPERATOR 133 mL injection 300 mL, injection, Once in surgery, OR use only, Starting on Meredith 10/22/21 at 1223, For 1 dose, Intra-Op levothyroxine tablet 50 mcg (SYNTHROID, Given 10/23/2021 8:50 PM POWERHOUSE OPERATOR 50 mcg LEVOTHROID) 50 mcg, oral, Daily at bedtime, First dose on Meredith 10/22/21 at 2145 Given 10/22/2021 10:06 PM POWERHOUSE OPERATOR 50 mcg losartan tablet 100 mg (COZAAR) Given 10/23/2021 5:28 PM POWERHOUSE OPERATOR 100 mg 100 mg, oral, Every evening, First dose on Meredith 10/22/21 at 2145 Given 10/22/2021 10:06 PM POWERHOUSE OPERATOR 100 mg naloxone injection 0.2 mg (NARCAN) 0.2 mg, intravenous, As needed, respirat ory depression, Starting on Meredith 10/22/21 at 2024, For respiratory rate less than 8 b reaths per minute or RASS score of -3, -4, -5. Apply oxygen to keep oxygen saturati ons greater than 90% and notify service. ondansetron (PF) injection 4 mg (ZOFRAN) Given 10/23/2021 9:11 AM POWERHOUSE OPERATOR 4 mg 4 mg, intravenous, Every 6 hours PRN, nausea, vomiting, Starting on Meredith 10/22/21 at 2024, For 48 hours, Reassess for nausea or vomiting after at least 10 minutes. If nausea or vomiting persists administer next ordered antiemetic medications (order for antiemetic medication administration ondansetron then droperidol then promethazine). Given 10/22/2021 10:27 PM POWERHOUSE OPERATOR 4 mg oxyCODONE IR tablet 10 mg [...] 5 mg (ROXICODONE) Given 10/23/2021 10:40 PM POWERHOUSE OPERATOR 5 mg 5 mg, oral, Every 4 hours PRN, moderate pain or score 4-6 of 10, Starting on Meredith 10/22/21 at 2024, Administer if pain is unrelieved by acetaminophen. May repeat dose once after 1 hour for persistent pain not to exceed 10 mg in 4 hours. Begin oral narcotics ONLY when tolerating oral diet. Given 10/23/2021 10:00 AM POWERHOUSE OPERATOR 5 mg polyethylene glycol powder packet 1 pack et (MIRALAX) 1 packet, oral, Daily PRN, constipation, Starting on Meredith 10/22/21 at 2024, Ordered sequence of administration: polyethylene glycol, then bisacodyl until BM achieved. Avoid mixing with starch-based thickened liquids. promethazine injection 6.25 mg (PHENERGA N) Given 10/23/2021 9:44 PM POWERHOUSE OPERATOR 6.25 mg 6.25 mg, intravenous, Every 6 [...] mg per Given 10/24/2021 9:03 A M POWERHOUSE OPERATOR 1 tablet tablet 1 tablet (SENOKOT-S) 1 tablet, oral, 2 times daily, First dose on Tue10/23/21 at 0900, Initiate ONLY when taking oral food and fluids. Do not give if patient has diarrhea or ostomy. Given 10/23/2021 8:50 PM POWERHOUSE OPERATOR 1 tablet thrombin (recombinant) topical solution Given 10/23/19 4:54 PM POWERHOUSE OPERATOR 5,000 Units (RECOTHROM) As needed, Starting on Tue10/22/21 at 1654, Intra-Op documented in this encounter Active and Recently Administered Medications Times are shown in POWERHOUSE OPERATOR. Scheduled Medication Order 10/22/2021 10/23/2021 10/24/2021 acetaminophen tablet 1,000 mg (TYLENOL) 2205 (Given - Provider: Angie Finley R.N.) 0949 [...] 2206 (Given - Provider: Angie Finley R.N.) 172 (Given - Provider: Lester Hernandez R.N.) 81 mg, oral, Every evening, First dose on Meredith 10/22/21 at 2130 atorvastatin tablet 20 mg (LIPITOR) 2206 (Given - Prov ider: Angie Finley R.N.) 2050 (Given - Provider: Augustine Corcoran R.N., CCRN) 20 mg, oral, Daily at bedtime, First dose on Meredith 10/22/21 at 2145 famotidine tablet 20 mg (PEPCID) 2205 (Given - Provide r: Angie Finley R.N.) 2049 (Given - Provider: Augustine Corcoran R.N., CCRN) 20 mg, oral, Daily at bedtime, First dos e on Meredith 10/22/21 at 2145, Drug Monitoring Program: Pharmacist to adjust medication dosing based on indication and drug clearance factors. fluticasone furoate-vilanteroL 100-25 mc g/actuation inhaler 1 puff (BREO ELLIPTA DISKUS) 0948 (Given - Provider: Kristian Hernandez R.N. - Comment: Per pt request) 0904 (Given - Provider: Terrie Wilson R.N.) 1 puff, inhalation, Daily (RT), First do [...] 2206 (G iven - Provider: Angie Finley R.N.) 1728 (Given - Provider: Lester Hernandez R.N.) 25 mg, oral, Every evening, First dose on Tue10/22/21 at 2145 ipratropium-albuteroL 0.5-2.5 mg/3 mL ne bulizer solution 3 mL (DUONEB) (CANCELED) 1104 (Given - Provider: Kathie Orellana R.N.) 3 mL, nebulization, 4 times daily (RT), First dose on Tue10/22/21 at 1500, Pre-Op lactated Ringer's bolus 500 mL (COMPLETED) 0512 (New Bag - Provider: Angie Finley R.N.) 500 mL, intravenous, at 500 mL/hr, Admin ister over 1 Hours, Once, On Tue10/23/21 at 0515, For 1 dose levothyroxine tablet 50 mcg (SYNTHROID, LEVOTHROID) 22 (Given - Provider: Angie Finley R.N.) 2049 (Given - Provider: Augustine Corcoran R.N., CCRN) 50 mcg, oral, Daily at bedtime, First dose on Meredith 10/22/21 at 214 5 losartan tablet 100 mg (COZAAR) 2206 (Given - Provider : Angie Finley RShitalN.) 1728 (Given - Provider: Lester Hernandez R.N.) [...] to surgic al incision, Drug Monitoring Program: armacist to adjust medication dosing based on indication [...] (CANCELED) 1755 (Continued from OR - Provider: Otoniel StarkeyShitalNShital)2024 (Stopped - Provider: Angie Finley R.N.) 20 mL/hr, intravenous, Continuous, Start ing on Meredith 10/22/21 at 1715, PACU & Post-Op phenylephrine 80 mcg/mL in NaCl 0.9% 250 mL infusion ( CANCELED) 1326 (New Bag - Provider: Khurram Brink APRN, MARILU)1334 (Rate/Dose Change - Provider: Khurram Brink APRN, MARILU)1348 (Rate/Dose Change - Provider: Khurram Brink APRN, MARILU) 0-1 mcg/kg/min ? 86.3 kg Dosing weight (0-64.725 mL/hr, rounded to 0-64.73 mL/hr), intravenous, Continuous, Starting on Meredith 10/22/21 at 1315, Intra-Op, 20 mg in 250 mL, Patient Type: Standard, initiate 1432 (Rate/Dose Change - Provider: Sera Brink APRN, CRNA)1440 (Rate/Dose Change - Provider: Khurram Brink APRN, MARILU)1511 (Rate/Dose Change - Provider: Khurram Brink APRN, MARILU) at: Other, Rate: Per Provider, Titrate a t: Other, Titrate: Per Provider, Goal: Other, Goal: Per Provider 1530 (Rate/Dose Change - Provider: Sera Brink APRN, MARILU)1609 (Stopped - Provider: Khruram Brink APRN, CRNA)1625 (Restarted - Provider: Khurram Brink APRN, MARILU)1711 (Stopped - Provider: Khurram Brink APRN, MARILU) PRN Medication Order 10/22/2021 10/23/2021 10/24/2021 albuterol nebulizer solution 2.5 mg(Linked Group 1) 2.5 mg, nebulization, Every 6 hours PRN, wheezing, shortness of breath, Starting on Meredith 10/22/21 at 2138 bisacodyL suppository 10 mg (DULCOLAX) 10 mg, rectal, Daily PRN, constipation, Starting on Tue10/22/21 at 2025, Ordered sequence of administration: polyethylene glycol, then bisacodyl until BM achieved. cellulose, oxidized 1 X 2 pad (SURGICEL) (CANCELED) 1653 (Given - Provider: Zoila BlairB.S.) As needed, Starting on Meredith 10/22/21 at 1654, Intra-Op fentaNYL injection 25 mcg (SUBLIMAZE) (CANCELED) 1813 (Given - Provider: Linda Randhawa R.NShital)1917 (Given - Provider: Alicia Bland RShitalNShital) 25 [...] R.N.) 0-8 Units, subcutaneous, Every 2 hour NC N, high blood sugar, Nurse to determine [...] injection (COMPLETED) 1703 (Given - Provider: Zoila BlairB.SShital) 300 mL, injection, Once in surgery, OR [...] (PF) injection 4 mg (ZOFRAN) (CANCELED) 18 (Given - Provider: Linda Randhawa R.N.) 4 [...] Provider: Lester Hernandez R.N. - Reason: Patient/family refused)2240 (Given - Provider: Augustine Corcoran R.N., CCRN) [...] Blair) As needed, Starting on Tue10/22/21 at 1653, Intra-Op Linked Groups Order Group 1: albuterol [...]
--- OUTSIDE RECORDS SUMMARY | 2022-03-31 14:45 | XMS_ITS | Encounter Summary ---
:1955 Author Organization [facility] Address [address] [place] [address] Care Team Providers Name Role Phone Unavailable Primary Care Provider Unavailable Encounter Details Date Type Department Care Team Description 10/22/2021 Ancillary Procedure Department of Vascular Surgery Social [...] or relatives? How often do you attend jain or Never 2018 adventism services? Do you belong to any clubs or No 02/21/2019 organizations such as jain groups, unions, fraternal or athletic groups, or [...] Appointment Radiology Mark Eastman M.D., M.S. [address] [place] [phone] 04/26/2022 Office Visit Otorhinolaryngology Roxanne Lanza APRN, C.N.P. [address] [place] [address] [phone] 04/28/2022 Appointment Radiation Oncology Ursula Aguirer M.D. [address] [place] [phone] documented as of this encounter Procedures Procedure Name Priority Date/Time Associated Diagnosis Comme nts VASCULAR SURGERY Routine 10/22/2021 1:40 PM Resul ts for this IMAGE EXAM ASTRONOMY TEACHER procedure are i n the results section. documented in this encounter Results VascUltrasound-Vascular Surgery Image Exam (10/22/2021 1:40 PM ASTRONOMY TEACHER) Specimen (Source) Anatomical Location Collection Method / Collectio n Time Received Time / Laterality Volume Narrative IIMS - 10/23/2021 7:21 AM ASTRONOMY TEACHER This order has been created and auto-finalized [...]
--- OUTSIDE RECORDS SUMMARY | 2022-03-31 14:45 | XMS_ITS | Encounter Summary ---
:1955 Author Organization [facility] Address [address] [place] [address] Care Team Providers Name Role Phone Unavailable Primary Care Provider Unavailable Reason for Referral MRI/CAT/PET Scan (Routine) - Authorized Specialty Diagnoses / Procedures Referred By Contact Refer red To Contact Radiology Diagnoses Aneurysm Abdominal Aortic Without Rupture (HCC) Mark Eastman [facility] Procedures CT Abdomen Pelvis Angiogram with IV Contrast Kimberley, M.S. [address] [place] [phone] Referral ID Status Reason Start Date Expiration Date Visits V isits Requested Authorized [id number] Authorized 10/23/2021 10/23/2022 1 1 utpatient (Routine) - Authorized Specialty Diagnoses / Procedures Referred By Contact Refer red To Contact Vascular Surgery Mark Eastman [facility] Allyson., M.S. [address] [place] [phone] Referral ID Status Reason Start Date Expiration Date Visits V isits Requested Authorized [id number] Authorized 10/23/2021 10/23/2022 1 1 FITTINGS MOLDER Encounter Details Date Type Department Care Team Description 10/23/2021 Clinical Communication Division of Vascular Carlin Harper and Endovascular AMAYA Mendez, C.N.P., Surgery in [facility] [address] [facility] [address] [place] [phone] Social History Tobacco Use Types Packs/Day Years [...] or relatives? How often do you attend temple or Never 2018 congregational services? Do you belong to any clubs or No 02/21/2019 organizations such as temple groups, unions, fraternal or athletic groups, or [...] documented as of this encounter Miscellaneous Notes Addendum Note - Shell Page R.N., C.Lashonda.O.C.N. - 10/23/2021 5:08 PM PIPE FITTINGS MOLDER Addended by: SHELL PAGE on: 10/23/2021 05:08 PM Modules accepted: Orders FITTINGS MOLDER documented in this encounter Plan of Treatment Upcoming Encounters Date Type Specialty Care Team Description 04/22/2022 Clinical Admitting/Central Communication Scheduling 04/26/2022 Appointment Radiology Mark Eastman M.D., M.S. [address] [place] [phone] 04/26/2022 Office Visit Otorhinolaryngology Roxanne Lanza APRN, C.N.P. [address] [place] [phone] 04/28/2022 Appointment Radiation Oncology Ursula Aguirre M.D. [address] [place] [address] [phone] Scheduled Orders Name Type Priority Associated Diagnoses Order S chedule CT Abdomen Pelvis Imaging RAD - Routine (most Aneurysm Abdomin al Expected: Angiogram with IV inpatients and all Aortic Without Contrast outpatients) Rupture (HCC) (Approximate), Expires: 10/23/2022 Scheduled Referrals Name Type Priority Associated Diagnoses Order S [facility] Vascular Surgery Outpatient Referral Routine Expe cted: office visit 01/23/2022 (clinic) (Approximate), Expires: 01/23/2023 documented as of this encounter Visit Diagnoses Diagnosis Aneurysm Abdominal Aortic Without Ruptur e (HCC) - Primary documented in this encounter
--- OUTSIDE RECORDS SUMMARY | 2022-03-31 14:45 | XMS_ITS | Encounter Summary ---
:1955 Author Organization [facility] Address [address] [place] [phone] Care Team Providers Name Role Phone Unavailable Primary Care Provider Unavailable Reason for Referral Outpatient (Routine) - Closed Specialty Diagnoses / Procedures Referred By Contact Refer red To Contact Diagnoses Preoperative Examination Cardiovascular Reynaldo Alfaro [place] Maude on Procedures US Carotid Bilateral M.D. [address] [place] [phone] Referral ID Status Reason Start Date Expiration Date Visits Requ ested Visits Authorized [id number] Closed 09/22/2021 09/22/2022 1 1 HBORHOOD PLANNER Reason for Visit Outpatient (Routine) - Closed Specialty Diagnoses / Procedures Referred By Contact Refer red To Contact Diagnoses Preoperative Examination Cardiovascular Reynaldo Alfaro [place] Maude on Procedures US Carotid Bilateral M.D. [address] [place] [phone] Referral ID Status Reason Start Date Expiration Date Visits Requ ested Visits Authorized [id number] Closed 09/22/2021 09/22/2022 1 1 Encounter Details Date Type Department Care Team Description 10/16/2021 Hospital Encounter Department of Magdalena Alfaro Radiology, Brenda Trevizo M.D. Examination Building, in [address] [place] [phone] [place] [address] [place], [place] (Work) [phone] Social History Tobacco Use Types Packs/Day Years [...] or relatives? How often do you attend anabaptist or Never 2018 confucianism services? Do you belong to any clubs or No 02/21/2019 organizations such as anabaptist groups, unions, fraternal or athletic groups, or [...] 0 06/1510/22/2021 600 mg tablet as needed levothyroxine (SYNTHROID, Take 1 tablet (50 30 tablet 1 10/202101/14/2022 LEVOTHROID) 50 mcg tablet mcg total) by mouth every morning before breakfast. documented as of this encounter Plan of Treatment Upcoming Encounters Date Type Specialty Care Team Description 04/22/2022 Clinical Admitting/Central Communication Scheduling 04/26/2022 Appointment Radiology Mark Eastman M.D., M.S. [address] [place] [phone] 04/26/2022 Office Visit Otorhinolaryngology Roxanne Lanza APRN, C.N.P. [address] [place] [phone] 04/28/2022 Appointment Radiation Oncology Ursula Aguirre M.D. [address] [place] [phone] documented as of this encounter Procedures Procedure Name Priority Date/Time Associated Diagnosis Comme nts US CAROTID RAD - Routine 10/16/2021 10:17 Preoperative Results fo r BILATERAL (most inpatients AM NEIGHBORHOOD PLANNER Examination this proced ure and all Cardiovascular are in the outpatients) results section. documented in this encounter Results US Carotid Bilateral (10/16/2021 10:17 AM NEIGHBORHOOD PLANNER) Anatomical Region Laterality Modality Head and Neck, Ultrasound RST LOS, Ultrasound ARZ LOS, Bilat eral Ultrasound Neuroradiology FLA LOS Specimen (Source) Anatomical Collection Method Collection Time Re ceived Time Location / / Volume Laterality 10/16/2021 10:45 AM NEIGHBORHOOD PLANNER Impressions 10/16/2021 10:49 AM NEIGHBORHOOD PLANNER 1. 50-69% diameter stenosis in the proximal left internal carotid artery. 2. No evidence for significant right-daly ed carotid artery stenosis. Narrative 10/16/2021 10:49 AM NEIGHBORHOOD PLANNER EXAM: US CAROTID BILATERAL Exam performed with color and spectral D oppler analysis. COMPARISON: None FINDINGS: RIGHT: Mild calcified atheromatous plaqu e in the carotid bifurcation. Doppler evaluation shows no evidence of significant ICA, ECA, or CCA stenosis. Normal flow direction in the vertebral artery. LEFT: Mild to moderate atheromatous plaq ue in the carotid bifurcation. Doppler evaluation is consistent with stenosis in the 50-69% d iameter range in the proximal ICA. No evidence of significant ECA or CCA stenosis. Normal flow direction in the vertebral artery. VELOCITIES (cm/sec) Right CCA *psv: ??55 cm/s Right ICA psv: 95 cm/s Right ICA edv: 25 cm/s Right ECA psv: 124 cm/s Right ICA/CCA: 1.7 Left CCA *psv: 58 cm/s Left ICA psv: 151 cm/s Left ICA edv: ??30 cm/s Left ECA psv: ??157 cm/s Left ICA/CCA: 2.6 *mid/distal (non-diseased) Measurement of a carotid stenosis, if pr esent, is based on velocity parameters that compare the residual internal carotid luminal diamet er with that of the normal distal ICA in accordance with [place] Symptomatic Carotid Endar terectomy Trial (NASCET). Procedure Note Trevon Christine M.D. - 10/16/2021Format ting of this note might be different from the original. EXAM: US CAROTID BILATERAL Exam performed with color and spectral D oppler analysis. COMPARISON: None FINDINGS: RIGHT: Mild calcified atheromatous plaqu e in the carotid bifurcation. Doppler evaluation shows no evidence of significant ICA, ECA, or CCA stenosis. Normal flow direction in the vertebral artery. LEFT: Mild to moderate atheromatous plaq ue in the carotid bifurcation. Doppler evaluation is consistent with stenosis in the 50-69% d iameter range in the proximal ICA. No evidence of significant ECA or CCA stenosis. Normal flow direction in the vertebral artery. VELOCITIES (cm/sec) Right CCA *psv: 55 cm/s Right ICA psv: 95 cm/s Right ICA edv: 25 cm/s Right ECA psv: 124 cm/s Right ICA/CCA: 1.7 Left CCA *psv: 58 cm/s Left ICA psv: 151 cm/s Left ICA edv: 30 cm/s Left ECA psv: 157 cm/s Left ICA/CCA: 2.6 *mid/distal (non-diseased) Measurement of a carotid stenosis, if pr esent, is based on velocity parameters that compare the residual internal carotid luminal diamet er with that of the normal distal ICA in accordance with [place] Symptomatic Carotid Endar terectomy Trial (NASCET). IMPRESSION: 1. 50-69% diameter stenosis in the proxi mal left internal carotid artery. 2. No evidence for significant right-daly ed carotid artery stenosis. Reynaldo OCAMPO US PROCEDURES documented in this encounter Visit Diagnoses Diagnosis Preoperative Examination Cardiovascular documented in this encounter
--- OUTSIDE RECORDS SUMMARY | 2022-03-31 14:45 | XMS_ITS | Encounter Summary ---
:1955 Author Organization [facility] Address [address] [place] [address] Care Team Providers Name Role Phone Unavailable Primary Care Provider Unavailable Reason for Referral Outpatient (Routine) - Authorized Specialty Diagnoses / Procedures Referred By Contact Refer red To Contact Vascular Medicine [facility] C.N.PShital, M.S. [address] [place] [phone] Referral ID Status Reason Start Date Expiration Date Visits V isits Requested Authorized [id number] Authorized 10/16/2021 10/16/2022 1 1 utpatient (Routine) - Authorized Specialty Diagnoses / Procedures Referred By Contact Refer red To Contact Diagnoses Aneurysm Abdominal Aortic Without Rupture (HCC) Stenosis Carotid Artery Left Radha Lizarraga [facility]NG[facility] Procedures US Carotid Bilateral C.N.P., M.S. 200 [place], [place] [phone] Referral ID Status Reason Start Date Expiration Date Visits V isits Requested Authorized [id number] Authorized 10/16/2021 10/16/2022 1 1 L HANGING SUPERVISOR Reason for Visit Outpatient (Routine) - Closed Specialty Diagnoses / Procedures Referred By Contact Refer red To Contact Vascular Medicine Diagnoses Aneurysm Abdominal Aortic Without Rupture (HCC) Preoperative Examination Cardiovascular Reynaldo Alfaro, [place] Maude on M.D. 200 [place] [phone] Referral ID Status Reason Start Date Expiration Date Visits Requ ested Visits Authorized [id number] Closed 09/22/2021 09/22/2022 1 1 Encounter Details Date Type Department Care Team Description 10/16/2021 Office Visit Department of Vascular Hirao-Try, Aneur ysm Abdominal Aortic Without Rupture (HCC) (Primary Dx); Medicine in [place], Radha, SCRAP CRANE OPERATOR, Preo perative Examination Cardiovascular; [place] C.N.P., M.S. Stenosis Carotid Artery Left; [address] [facility] 200 [facility] [place] [phone] Social History Tobacco Use Types Packs/Day Years [...] do you attend taoism or Never 2018 yazidism services? Do you belong to any clubs [...] Sign Reading Time Taken Comments Blood Pressure 147/77 10/16/2021 1:19 PM METAL HANGING SUPERVISOR Pulse - - Temperature - - Respiratory Rate - - Oxygen Saturation - - Inhaled Oxygen Concentration - - Weight 86.8 kg (191 lb 5.8 oz) 10/16/2021 1:19 PM METAL HANGING SUPERVISOR Height 166.3 cm (5' 5.47) 10/16/2021 1:19 PM METAL HANGING SUPERVISOR Body Mass Index 31.39 10/16/2021 1:19 PM METAL HANGING SUPERVISOR documented in this encounter Progress Notes Radha Lizarraga APRN, C.N.P., M.S. - 10/16/2021 2:00 PM CST REFERRAL SOURCE Reynaldo Alfaro M.D. 200 [place] [phone] SUBJECTIVE CHIEF COMPLAINT / REASON FOR VISIT Review test results HISTORY OF PRESENT ILLNESS Ms. Steiner is a 66 y.o. female from [facility] that I am seeing today to review test results. She is accompanied by her daughter. 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 He completed cancer treatment in 2019 with no evidence of recurrence. CT abdomen pelvis on 09/15/2021 revealed enlarging infrarenal abdominal aortic aneurysm measuring 56 x57 mm (previously 49 x [address] also noted diffuse atherosclerotic disease. She is currently scheduled for abdominal aorta stent graft on 10/22/2021 to be performed by Dr. Eastman. She underwent preoperative evaluation under Dr. Alfaro including DSE, 12 EKG, chest x-ray, and laboratory studies. It was recommended to obtain ultrasound of carotid prior to surgery. DSE was negative stress-induced ischemia. Baseline 12 lead EKG was unremarkable. Lipid panel was abnormal. She has been on simvastatin for many years. She has history of diabetes but is no longer on metformin due to weight loss since cancer treatment. She has COPD on inhalers with history of smoking. She denies prior history of CVA/TIA, history of atrial fibrillation, or history of VTE. The following portions of the patient's history were reviewed and updated as appropriate: allergies,current medications, family history, medical history, social history, surgical history, problem list, labs, diagnostics tests. I reviewed the pertinent clinical notes in the electronic health record. REVIEW OF SYSTEMS 10 systems reviewed. Pertinent positives and pertinent negatives are documented in the history of present illness. OBJECTIVE VITALS Blood Pressure 147/77 (BP Location: Right arm) Height 166.3 cm Weight 86.8 kg Body Mass Index 31.39 kg/m?? Body mass index is 31.39 kg/m??. PHYSICAL EXAMINATION Vitals reviewed. Constitutional Appearance: Normal appearance. HENT Head: Normocephalic. Eyes Conjunctiva/sclera: Conjunctivae normal. Neck Vascular: No carotid bruit. Cardiovascular Rate and Rhythm: Normal rate. Pulses: Normal pulses. Pulmonary Effort: Pulmonary effort is normal. Skin General: Skin is warm. Neurological General: No focal deficit present. Mental Status: She is alert and oriented to person, place, and time. Psychiatric Mood and Affect: Mood normal. DIAGNOSTIC REVIEW Lab Results Component Value Date CHOL 265 (H) 09/22/2021 Lab Results Component Value Date HDL 37 (L) 09/22/2021 Lab Results Component Value Date LDLCALC 150 (H) 09/22/2021 Lab Results Component Value Date TRIG 390 (H) 09/22/2021 Lab Results Component Value Date WBC 5.3 09/22/2021 HGB 11.2 (L) 09/22/2021 HCT 35.2 (L) 09/22/2021 MCV 91.0 09/22/2021 PLT 271 09/22/2021 Lab Results Component Value Date NA 135 09/22/2021 CL 98 09/22/2021 CREATININE 1.11 (H) 09/22/2021 BUN 24 (H) 09/22/2021 ANIONGAP 10 09/22/2021 GLUCOSE 107 09/22/2021 CALCIUM 9.7 09/22/2021 Lab Results Component Value Date INR 1.2 04/17/2019 PT 12.8 (H) 04/17/2019 10/16/2021 EXAM: US CAROTID BILATERAL Exam performed with color and spectral Doppler analysis. ?? COMPARISON: None ?? FINDINGS: RIGHT: Mild calcified atheromatous plaque in the carotid bifurcation. Doppler evaluation shows no evidence of significant ICA, ECA, or CCA stenosis. Normal flow direction in the vertebral artery. ?? LEFT: Mild to moderate atheromatous plaque in the carotid bifurcation. Doppler evaluation is consistent with stenosis in the 50-69% diameter range in the proximal ICA. No evidence of significant ECA orCCA stenosis. Normal flow direction in the vertebral artery. ?? VELOCITIES (cm/sec) Right CCA *psv: 55 cm/s Right ICA psv: 95 cm/s Right ICA edv: 25 cm/s Right ECA psv: 124 cm/s Right ICA/CCA: 1.7 ?? Left CCA *psv: 58 cm/s Left ICA psv: 151 cm/s Left ICA edv: 30 cm/s Left ECA psv: 157 cm/s Left ICA/CCA: 2.6 *mid/distal (non-diseased) ?? Measurement of a carotid stenosis, if present, is based on velocity parameters that compare the residual internal carotid luminal diameter with that of the normal distal ICA in accordance with [place] Symptomatic Carotid Endarterectomy Trial (NASCET). ?? IMPRESSION: 1. 50-69% diameter stenosis in the proximal left internal carotid artery. 2. No evidence for significant right-sided carotid artery stenosis. All pertinent labs and diagnostic studies were reviewed. ASSESSMENT / PLAN #1 Aneurysm Abdominal Aortic Without Rupture (HCC) #2 Preoperative Examination Cardiovascular #3 Stenosis Carotid Artery Left Ms. Steiner is a 66 y.o. female with history of enlarging infrarenal abdominal aneurysm. She is scheduled for abdominal aortic stent graft by Dr. Eastman on 10/22/2021. She recently completed preoperative evaluation as guided by Dr. Alfaro. Please refer to his note on 09/22/2021. She returns to the vascular surveillance clinic today to review pending ultrasound of carotid arteries. The results were consistent with mild to moderate left internal carotid arteries disease with ICAvelocity at 151 cm/s. She has no prior history of CVA/TIA. No further evaluation prior to upcoming serrano rgery is indicated at this time. Recommend to continue aspirin and statin (simvastatin changed to atorvastatin), and to repeat ultrasound of carotid artery in 1 year. I reviewed signs/symptoms of CVA/TIA or amaurosis fugax, importance of blood pressure control and cholesterol management. I met with in the Vascular Surveillance Clinic today, reviewed pertinent outside medical records, and discussed pertinent medical history, ROS, and symptoms as outline above. It was pleasure to meet in the Vascular clinic today. All questions were answered to the best of my knowledge. Radha Lizarraga APRN, C.N.P., M.S. L HANGING SUPERVISOR documented in this encounter Plan of Treatment Upcoming Encounters Date Type Specialty Care Team Description 04/22/2022 Clinical Admitting/Central Communication Scheduling 04/26/2022 Appointment Radiology Mark Eastman M.D., M.S. [address] [place] [phone] 04/26/2022 Office Visit Otorhinolaryngology Roxanne Lanza APRN, C.N.P. [address] [place] [phone] 04/28/2022 Appointment Radiation Oncology Ursula Aguirre M.D. [address] [place] [phone] Scheduled Orders Name Type Priority Associated Diagnoses Order [facility] Lipid Panel Lab Routine Aneurysm Abdominal Expected: Aortic Without 10/16/2022 Rupture (HCC) (Approximate), Stenosis Carotid Expires: Artery Left 10/16/2022 US Carotid Imaging RAD - Routine (most Aneurysm Abdominal Ex pected: Bilateral inpatients and all Aortic Without 023 outpatients) Rupture (HCC) (Approximate), Stenosis Carotid Expires: Artery Left 01/16/2023 Scheduled Referrals Name Type Priority Associated Diagnoses Order [facility] Vascular Medicine Outpatient Referral Routine Exp ected: office visit 10/16/2022 (clinic) Vascular (Approxima te), Surgery Referral Expires: 01/16/2023 documented as of this encounter Visit Diagnoses Diagnosis Aneurysm Abdominal Aortic Without Ruptur e (HCC) - Primary Preoperative Examination Cardiovascular Stenosis Carotid Artery Left Dyslipidemia documented in this encounter
--- OUTSIDE RECORDS SUMMARY | 2022-03-31 14:45 | XMS_ITS | Encounter Summary ---
:1955 Author Organization [facility] Address [address] [place] [address] Care Team Providers Name Role Phone Unavailable Primary Care Provider Unavailable Encounter Details Date Type Department Care Team Description 10/19/2021 Hospital Encounter Department of Jaren, Aneurysm Abdominal Laboratory Medicine Mark Frederick M.D., Aort ic Without in Kenneth Larkni Rupture (HCC) [place] [address] [facility] [address] [place] [phone] Social History Tobacco Use Types Packs/Day Years [...] or relatives? How often do you attend christianity or Never 2018 amish services? Do you belong to any clubs or No 02/21/2019 organizations such as christianity groups, unions, fraternal or athletic groups, or [...] Appointment Radiology Mark Eastman M.D., M.S. [address] [place] [phone] 04/26/2022 Office Visit Otorhinolaryngology Roxanne Lanza, METAL ROOFING MECHANIC, C.N.P. [address] [place] [phone] 04/28/2022 Appointment Radiation Oncology Ursula Aguirre M.D. [address] [place] [phone] documented as of this encounter Procedures Procedure Name Priority Date/Time Associated Diagnosis Comme nts SARS CORONAVIRUS-2 Routine 10/19/2021 12:57 PM Aneurysm Abdomi nal Results for this RNA, V GRAIN ELEVATOR MAN Aortic Without procedure are in Rupture (HCC) the results section. documented in this encounter Results SARS Coronavirus-2 RNA, V Asymptomatic (10/19/2021 12:57 PM GRAIN ELEVATOR MAN) [facility] Method Time Signature SARS-CoV-2 Swab, 10/20/2021 MKTO Specimen Nasopharynx 1:47 AM GRAIN ELEVATOR MAN Source SARS CoV-2 Undetected Undetected 10/20/2021 MKTO RNA, TMA 1:47 AM GRAIN ELEVATOR MAN Comment: SARS-CoV-2 RNA absent. This result does not rule out COVID-19 in the patient, as the sensitivity of the test depends o n the timing of the specimen collection and the quality of the specim en. Result should be correlated with patient's history and clinical presentat ion. ----ADDITIONAL INFORMATION---- This molecular amplification test was pe rformed using the Aptima SARS-CoV-2 assay ([employer] on the [employer] Sys tem under emergency use authorization (EUA) by the U.S. Food and Drug Administ cristian. Fact sheets for this EUA assay can be fo und at the following links: For Healthcare Providers: https://www.fd a.gov/media/274545/download For Patients: https://www.fda.gov/media/ 914548/download Specimen Anatomical Collection Method Collection Time Receive d Time (Source) Location / / Volume Laterality Varies 10/19/2021 12:57 10/19/2021 7:37 (Nasopharynx) PM GRAIN ELEVATOR MAN PM GRAIN ELEVATOR MAN Mark Eastman M.D., M.S. LAB MICROBIOLOGY - [facility] ORDERABLES Performing Organization Address City/State/[facility] Code Phon e Number [facility]- [address] [place] [address] [place] [address] System in [address] documented in this encounter Visit Diagnoses Diagnosis Aneurysm Abdominal Aortic Without Ruptur e (HCC) documented in this encounter Additional Health Concerns Infection Onset Date Last Indicated Resolved Time COVID19 Pending 10/19/2021 10/19/2021 10/20/2021 1:47 AM GRAIN ELEVATOR MAN documented as of this encounter
--- OUTSIDE RECORDS SUMMARY | 2022-03-31 14:45 | XMS_ITS | Encounter Summary ---
:1955 Author Organization [facility] Address [address] [place] [address] Care Team Providers Name Role Phone Unavailable Primary Care Provider Unavailable Reason for Referral Outpatient (Routine) - Closed Specialty Diagnoses / Procedures Referred By Contact Refer red To Contact Vascular Medicine Diagnoses Aneurysm Abdominal Aortic Without Rupture (HCC) Preoperative Examination Cardiovascular Reynaldo Alfaro [place] Regi on M.DShital [address] [place] [phone] Referral ID Status Reason Start Date Expiration Date Visits Requ ested Visits Authorized [id number] Closed 09/22/2021 09/22/2022 1 1 Scheduling Instructions Please schedule for October 16, 2021 after carotid ultrasound. RETE ANALYST Outpatient (Routine) - Closed Specialty Diagnoses / Procedures Referred By Contact Refer red To Contact Diagnoses Preoperative Examination Reynaldo Patel [place] Regi on Procedures US Carotid Bilateral M.D. [address] [place] [phone] Referral ID Status Reason Start Date Expiration Date Visits Requ ested Visits Authorized [id number] Closed 09/22/2021 09/22/2022 1 1 RETE ANALYST Reason for Visit Outpatient (Routine) - Closed Specialty Diagnoses / Procedures Referred By Contact Refer red To Contact Vascular Medicine Diagnoses Aneurysm Abdominal Aortic Without Rupture (HCC) Mark Eastman [facility] [facility] M.D., M.S. [address] [place] [phone] Referral ID Status Reason Start Date Expiration Date Visits Requ ested Visits Authorized [id number] Closed 09/15/2021 09/15/2022 1 1 Encounter Details Date Type Department Care Team Description 09/22/2021 Office Visit Department of Costopoulos, Aneurysm Abdom inal Aortic Without Rupture (HCC) (Primary Dx); Vascular Medicine in [place] Hypertension Essential Primary; [place], [place] 200 [facility] Hyperlipidemia; 200 [place], [place] Smoking Tobacco Use Personal History; [place] [phone] Preoperative Examination Cardiovascular [id number] Social History Tobacco Use Types Packs/Day Years [...] or relatives? How often do you attend jewish or Never 2018 roman catholic services? Do you belong to any clubs or No 02/21/2019 organizations such as jewish groups, unions, fraternal or athletic groups, or [...] Sign Reading Time Taken Comments Blood Pressure 147/83 09/22/2021 3:25 PM CONCRETE ANALYST Pulse 86 09/22/2021 3:25 PM CONCRETE ANALYST Temperature - - Respiratory Rate - - Oxygen Saturation - - Inhaled Oxygen Concentration - - Weight 87.2 kg (192 lb 3.9 oz) 09/22/2021 3:21 PM CONCRETE ANALYST Height 166.3 cm (5' 5.47) 09/22/2021 3:21 PM CONCRETE ANALYST Body Mass Index 31.53 09/22/2021 3:21 PM CONCRETE ANALYST documented in this encounter Consult Notes Reynaldo Alfaro M.D. - 09/22/2021 3:15 PM CST REFERRAL SOURCE Mark Eastman M.D., M.S. [address] [place] [phone] SUBJECTIVE CHIEF COMPLAINT / REASON FOR VISIT HISTORY OF PRESENT ILLNESS Ms. Narayan is a 66 y.o. female that I am seeing today for an opinion and recommendations on an abdominal aortic aneurysm. The patient has been referred by Mark Eastman M.D., M.S. Mrs. Narayanis and is accompanied today by a [id number]. Mrs. Narayan is currently seeing Dr. Eastman in Vascular Surgical consultation for a known abdominal aortic aneurysm. She is now a candidate for repair which she tells me is scheduled for October 22 and she now needs an okay for anesthesia. She is asymptomatic with her abdominal aortic aneurysm. I reviewed Dr. Eastman's note from September 15 of this year and he noted that the patient's abdominal aortic aneurysm has grown in size and now exceeds 5.5 centimeters. The patient is a candidate for a stent graft repair. In my conversation with her, she does not have a history of symptomatic coronary artery disease. Shecannot recall ever having had a carotid ultrasound previously or any screening done of her carotid arteries for stenosis. Past Medical History: Her past medical history includes hypertension, hyperlipidemia, diabetes, and COPD. She notes that she was recently given thyroid hormone replacement therapy, but has not started it yet. 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 Social History: She quit smoking in 2019. She does not currently drink alcohol. Family History: Not obtained. The following portions of the patient's history were reviewed and updated as appropriate: allergies,current medications, family history, medical history, social history, surgical history, psychiatric history, substance abuse history, problem list, labs, diagnostics tests. I reviewed the pertinent clinical notes in the electronic health record. REVIEW OF SYSTEMS A complete review of systems was performed with pertinent information listed in the HPI, all others negative. OBJECTIVE VITALS BP 147/83 (BP Location: Right arm, Patient Position: Sitting) Pulse 86 Ht 166.3 cm Wt 87.2 kg BMI 31.53 kg/m?? PHYSICAL EXAMINATION Body mass index is 31.53 kg/m??. Physical Exam Neurological: Awake, alert, and appropriately conversant. Psychiatry: In no distress and she did not appear to be depressed. Vessels: Radial pulses were 4+ bilaterally, ulnars 0 bilaterally, and carotids 4+ bilaterally. Respiratory: Lungs were clear to auscultation. Cardiovascular: Cardiac exam revealed a regular rate with a normal S1 and S2. Abdomen: Active bowel sounds. No bruits. Obese. : Not obtained. Musculoskeletal: No spinous process tenderness on back examination. DIAGNOSTIC REVIEW All relevant labs and diagnostic studies below were reviewed. Laboratory studies from earlier today included a CBC showing a white blood cell count of 5300 with ahemoglobin of 11.2 and a platelet count of 651336. Her sodium was 135 with a potassium of 4.7, creatinine 1.11, glucose 107, total bilirubin 0.3, ALT 13, AST 15, and alkaline phosphatase 69. An ECG from earlier today showed a normal sinus rhythm, ventricular rate 94, with a nonspecific ST abnormality. A chest x-ray from earlier today showed a prominent ascending aorta, a calcified tortuous aorta, coronary calcification, and the chest was otherwise negative. A dobutamine stress echocardiogram from earlier today was negative for inducible myocardial ischemia. A peak heart rate of 144 beats per minute was achieved. The resting left ventricular ejection fraction was 60 percent and went to 75 percent at peak stress. There were no regional wall motion abnormalities with stress. ASSESSMENT / PLAN ASSESSMENT #1 Aneurysm Abdominal Aortic Without Rupture (HCC) Mrs. Narayan has an abdominal aortic aneurysm and is currently a candidate for repair. Her laboratory studies above are acceptable, but I would want to obtain a screening preoperative carotid arterial ultrasound examination to exclude a significant carotid arterial stenosis on either side before releasing her for general anesthetic Vascular Surgical procedures. This was discussed. She has risk factors for her abdominal aortic aneurysm which include hypertension, hyperlipidemia, diabetes, and her tobacco use history. #2 Hypertension Essential Primary The discussion is as above. #3 Hyperlipidemia The discussion is as above. #4 Smoking Tobacco Use Personal History The discussion is as above. PLAN 1. The patient would like to come back on October 16 for a screening carotid arterial ultrasound exam, but I will not be here on that day, and therefore I will make arrangements to have one of the otherproviders see the patient after the carotid artery ultrasound exam. Pending an acceptable result, the patient would then be okay for anesthesia. Total time spent with patient: 45 minutes. Time spent in counseling and coordination of care: 30 minutes. Reynaldo Alfaro M.D. RETE ANALYST documented in this encounter Plan of Treatment Upcoming Encounters Date Type Specialty Care Team Description 04/22/2022 Clinical Admitting/Central Communication Scheduling 04/26/2022 Appointment Radiology Mark Eastman M.D., M.S. [address] [place] [phone] 04/26/2022 Office Visit Otorhinolaryngology Roxanne Lanza, DRYWALL TAPER HELPER, C.N.P. [address] [place] [phone] 04/28/2022 Appointment Radiation Oncology Ursula Aguirre M.D. [address] [place] [phone] Scheduled Referrals Name Type Priority Associated Diagnoses Order S chedule Vascular Medicine Outpatient Referral Routine Aneurysm Abdomin al Expected: office visit Aortic Without Rupture 09/22 (clinic) General (HCC) (Approximate), Preoperative Expires: Examination 12/20/2022 Cardiovascular documented as of this encounter Results US Carotid Bilateral (10/16/2021 10:17 AM CONCRETE ANALYST) Anatomical Region Laterality Modality Head and Neck, Ultrasound RST LOS, Ultrasound ARZ LOS, Bilat eral Ultrasound Neuroradiology [facility] Specimen (Source) Anatomical Collection Method Collection Time Re ceived Time Location / / Volume Laterality 10/16/2021 10:45 AM CONCRETE ANALYST Impressions 10/16/2021 10:49 AM CONCRETE ANALYST 1. 50-69% diameter stenosis in the proximal left internal carotid artery. 2. No evidence for significant right-daly ed carotid artery stenosis. Narrative 10/16/2021 10:49 AM CONCRETE ANALYST EXAM: US CAROTID BILATERAL Exam performed with [...] normal distal ICA in accordance with [place] Symptomatic Carotid Endar terectomy Trial (NASCET). Procedure [...] normal distal ICA in accordance with [place] Symptomatic Carotid Endar terectomy Trial (NASCET). IMPRESSION: 1. 50-69% diameter stenosis in the proxi mal left internal carotid artery. 2. No evidence for significant right-daly ed carotid artery stenosis. Reynaldo Alfaro M.D. IMJoseline US PROCEDURES documented in this encounter Visit Diagnoses Diagnosis Aneurysm Abdominal Aortic Without Ruptur e (HCC) - Primary Hypertension Essential Primary Hyperlipidemia Smoking Tobacco Use Personal History Preoperative Examination Cardiovascular Preoperative Examination Cardiovascular documented in this encounter
--- OUTSIDE RECORDS SUMMARY | 2022-03-31 14:45 | XMS_ITS | Encounter Summary ---
:1955 Author Organization [facility] Address [address] [place] [address] Care Team Providers Name Role Phone Unavailable Primary Care Provider Unavailable Encounter Details Date Type Department Care Team Description 09/22/2021 Hospital Encounter Department of Jaren, Aneurysm Abdominal Laboratory Medicine Mark Frederick M.D., Aort ic Without and Pathology, M.S. Rupture ([facility]) [place] [address] [place] [phone] [place] [address] [place], [place] (Work) [phone] Social History Tobacco Use Types Packs/Day Years [...] or relatives? How often do you attend jehovah's witness or Never 2018 pentecostal services? Do you belong to any clubs or No 02/21/2019 organizations such as jehovah's witness groups, unions, fraternal or athletic groups, or [...] to pay for the very basics like Cum[employer] hat hard 02/21/2019 food, housing, medical care, [...] Appointment Radiology Mark Eastman M.D., M.S. [address] [place] [phone] 04/26/2022 Office Visit Otorhinolaryngology Roxanne Lanza, HORSE FARM MANAGER, C.N.P. [address] [place] [phone] 04/28/2022 Appointment Radiation Oncology Ursula Aguirre M.D. [address] [place] [phone] documented as of this encounter Procedures Procedure Name Priority Date/Time Associated Diagnosis Comme nts LIPID PANEL, S Routine 09/22/2021 10:21 AM Aneurysm Abdominal Results for this LUMBER ESTIMATOR Aortic Without procedure are in Rupture (HCC) the results section. HEPATIC FUNCTION Routine 09/22/2021 10:21 AM Aneurysm Abdomina l Results for this PANEL, S LUMBER ESTIMATOR Aortic Without procedure are in Rupture (HCC) the results section. CBC WITH Routine 09/22/2021 10:21 AM Aneurysm Abdominal Re sults for this DIFFERENTIAL, B LUMBER ESTIMATOR Aortic Without procedure are in Rupture (HCC) the results section. TYPE AND SCREEN Routine 09/22/2021 10:21 AM Aneurysm Abdominal Results for this LUMBER ESTIMATOR Aortic Without procedure are in Rupture (HCC) the results section. BASIC METABOLIC Routine 09/22/2021 10:21 AM Aneurysm Abdominal Results for this PANEL, S/P LUMBER ESTIMATOR Aortic Without procedure are in Rupture (HCC) the results section. documented in this encounter Results Type and Screen (with reflex Antibody ID) (09/22/2021 10:21 AM LUMBER ESTIMATOR) Patholo gist Method Time Signature ABORh A Pos Not 09/22/2021 ETRM applicable 4:15 PM LUMBER ESTIMATOR Antibody Negative Negative 09/22/2021 ETRM Screen 4:26 PM LUMBER ESTIMATOR Type & Screen 11/20/2021 09/22/2021 ETRM Expiration 23:59 4:15 PM LUMBER ESTIMATOR Testing Elizabeth DEFAULT 09/22/2021 ETRM Location 10:52 AM LUMBER ESTIMATOR Specimen Anatomical Collection Method Collection Time Receive d Time (Source) Location / / Volume Laterality Blood (Blood, 09/22/2021 10:21 09/22/2021 Venous) AM LUMBER ESTIMATOR 10:52 AM LUMBER ESTIMATOR Mark Eastman M.D., M.S. LAB BLOOD BANK TEST ORD ERABLES Performing Organization Address City/State/ZIP Code Phon e Number [facility] - [address] [place], [place] [address] [facility] [place] [place] [address] Laboratories-[facility] [address] (ABNORMAL) Lipid Panel (09/22/2021 10:21 AM LUMBER ESTIMATOR) P athologist Signature Cholesterol, 265 (H) mg/dL 09/22/2021 DTL Total 11:30 AM LUMBER ESTIMATOR Comment: ----REFERENCE VALUE---- Desirable: < 200 Borderline high: 200 - 239 High: > or = 240 Triglycerides 390 (H) mg/dL 09/22/2021 11:30 AM LUMBER ESTIMATOR DT L Comment: ----REFERENCE VALUE---- Normal: <150 Borderline high: 150-199 High: 200-499 Very high: > or =500 Cholesterol, HDL, S 37 (L) >=50 mg/dL 09/22/2021 11:30 AM LUMBER ESTIMATOR DTL Calculated LDL 150 (H) mg/dL 09/22/2021 11:30 AM LUMBER ESTIMATOR D TL Comment: ----REFERENCE VALUE---- Desirable: <100 mg/dL Above Desirable: 100-129 mg/dL Borderline High: 130-159 mg/dL High: 160-189 mg/dL Very High: >=190 mg/dL Cholesterol, Non-HDL, Calculated 228 (H) mg/dL 022 11:30 AM LUMBER ESTIMATOR DTL Comment: ----REFERENCE VALUE---- Desirable: <130 Above Desirable: 130-159 Borderline high: 160-189 High: 190-219 Very high: > or =220 Specimen Anatomical Collection Method Collection Time Receive d Time (Source) Location / / Volume Laterality Blood (Blood, 09/22/2021 10:21 09/22/2021 Venous) AM LUMBER ESTIMATOR 11:11 AM LUMBER ESTIMATOR Mark Eastman M.D., M.S. LAB BLOOD ADD-ON Performing Organization Address City/State/ZIP Code Phon e Number [facility] - [address] [place] [address] [facility] [place] [address] Laboratories-[address] Hepatic Function Panel (09/22/2021 10:21 AM LUMBER ESTIMATOR) [facility] gist Method Time Signature Bilirubin, Total, S 0.3 <=1.2 09/22/2021 DTL mg/dL 11:29 AM LUMBER ESTIMATOR Bilirubin, Direct, S <0.2 0.0 - 0.3 09/22/2021 DTL mg/dL 11:29 AM LUMBER ESTIMATOR Aspartate 15 8 - 43 09/22/2021 DTL Aminotransferase U/L 11:29 AM LUMBER ESTIMATOR (AST), S Alanine 13 7 - 45 09/22/2021 DTL Aminotransferase U/L 11:29 AM LUMBER ESTIMATOR (ALT), S Alkaline 69 35 - 104 09/22/2021 DTL Phosphatase, S U/L 11:29 AM LUMBER ESTIMATOR Albumin, S 4.3 3.5 - 5.0 09/22/2021 DTL g/dL 11:29 AM LUMBER ESTIMATOR Protein, Total, S 7.1 6.3 - 7.9 09/22/2021 DTL g/dL 11:29 AM LUMBER ESTIMATOR Specimen Anatomical Collection Method Collection Time Receive d Time (Source) Location / / Volume Laterality Blood (Blood, 09/22/2021 10:21 09/22/2021 Venous) AM LUMBER ESTIMATOR 11:11 AM LUMBER ESTIMATOR Mark Eastman M.D., M.S. LAB BLOOD ADD-ON Performing Organization Address City/State/ZIP Code Phon e Number [facility] - 200 [place], [place] [address] [facility] [place] [address] Laboratories-[facility] [address] [facility] (ABNORMAL) CBC with Differential, Blood (09/22/2021 10:21 AM LUMBER ESTIMATOR) [facility] Method Time Signature Hemoglobin 11.2 (L) 11.6 - 09/22/2021 DTL 15.0 g/dL 10:59 AM LUMBER ESTIMATOR Hematocrit 35.2 (L) 35.5 - 09/22/2021 DTL 44.9 % 10:59 AM LUMBER ESTIMATOR Erythrocytes 3.87 (L) 3.92 - 09/22/2021 DTL 5.13 10:59 AM LUMBER ESTIMATOR x10(12)/L MCV 91.0 78.2 - 09/22/2021 DTL 97.9 fL 10:59 AM LUMBER ESTIMATOR RBC Distrib Width 15.4 12.2 - 09/22/2021 DTL 16.1 % 10:59 AM LUMBER ESTIMATOR Platelet Count 271 157 - 371 09/22/2021 DTL x10(9)/L 10:59 AM LUMBER ESTIMATOR Leukocytes 5.3 3.4 - 9.6 09/22/2021 DTL x10(9)/L 10:59 AM LUMBER ESTIMATOR Neutrophils 3.56 1.56 - 09/22/2021 DTL 6.45 10:59 AM LUMBER ESTIMATOR x10(9)/L Lymphocytes 0.82 (L) 0.95 - 09/22/2021 DTL 3.07 10:59 AM LUMBER ESTIMATOR x10(9)/L Monocytes 0.48 0.26 - 09/22/2021 DTL 0.81 10:59 AM LUMBER ESTIMATOR x10(9)/L Eosinophils 0.35 0.03 - 09/22/2021 DTL 0.48 10:59 AM LUMBER ESTIMATOR x10(9)/L Basophils 0.04 0.01 - 09/22/2021 DTL 0.08 10:59 AM LUMBER ESTIMATOR x10(9)/L Specimen Anatomical Collection Method Collection Time Receive d Time (Source) Location / / Volume Laterality Blood (Blood, 09/22/2021 10:21 09/22/2021 Venous) AM LUMBER ESTIMATOR 10:49 AM LUMBER ESTIMATOR Mark Eastman M.D., M.S. LAB BLOOD ADD-ON Performing Organization Address City/State/ZIP Code Phon e Number [facility] - 200 [place], [place] [address] [facility] [place] [address] Laboratories-[facility] 200 [facility] (ABNORMAL) Basic Metabolic Panel (09/22/2021 10:21 AM LUMBER ESTIMATOR) P athologist Signature Potassium, S 4.7 3.6 - 5.2 09/22/2021 DTL mmol/L 11:29 AM LUMBER ESTIMATOR Sodium, S 135 135 - 145 09/22/2021 DTL mmol/L 11:29 AM LUMBER ESTIMATOR Chloride, S 98 98 - 107 09/22/2021 DTL mmol/L 11:29 AM LUMBER ESTIMATOR Bicarbonate, S 27 22 - 29 09/22/2021 DTL mmol/L 11:29 AM LUMBER ESTIMATOR Anion Gap 10 7 - 15 09/22/2021 DTL 11:29 AM LUMBER ESTIMATOR BUN (Blood 24 (H) 6 - 21 09/22/2021 DTL Urea mg/dL 11:29 AM LUMBER ESTIMATOR Nitrogen), S Creatinine, S 1.11 (H) 0.59 - 09/22/2021 DTL 1.04 mg/dL 11:29 AM LUMBER ESTIMATOR eGFR-Non 52 (L) >=60 09/22/2021 DTL Black/ mL/min/BSA 11:29 AM LUMBER ESTIMATOR [place] Comment: ----ADDITIONAL INFORMATION---- Estimated GFR calculated using the 2009 CKD_EPI creatinine equation. eGFR-Black/ 60 >=60 mL/min/BSA 2021 11:29 AM LUMBER ESTIMATOR DTL Comment: ----ADDITIONAL INFORMATION---- Estimated GFR calculated using the 2009 CKD_EPI creatinine equation. Calcium, Total, S 9.7 8.8 - 10.2 mg/dL 09/22/2021 11:2 9 AM LUMBER ESTIMATOR DTL Glucose, S 107 70 - 140 mg/dL 09/22/2021 11:29 AM LUMBER ESTIMATOR DTL Specimen Anatomical Collection Method Collection Time Receive d Time (Source) Location / / Volume Laterality Blood (Blood, 09/22/2021 10:21 09/22/2021 Venous) AM LUMBER ESTIMATOR 11:11 AM LUMBER ESTIMATOR Mark Eastman M.D., M.S. LAB BLOOD ADD-ON Performing Organization Address City/State/ZIP Code Phon e Number [facility] - [address] [place], [place] [address] [facility] [place] [address] Laboratories-[facility] [address] documented in this encounter Visit Diagnoses Diagnosis Aneurysm Abdominal Aortic Without Ruptur e (HCC) documented in this encounter
--- OUTSIDE RECORDS SUMMARY | 2022-03-31 14:46 | XMS_ITS | Encounter Summary ---
:1955 Author Organization [facility] Address [address] [place] [address] Care Team Providers Name Role Phone Unavailable Primary Care Provider Unavailable Encounter Details Date Type Department Care Team Description 12/09/2020 Orders Only [facility] PCP [facility] Sa kate Fountain M.D. [address] [place], [place] [phone] (Wo rk) Social History Tobacco Use Types [...] or relatives? How often do you attend restorationism or Never 2018 catholic services? Do you belong to any clubs or No 02/21/2019 organizations such as restorationism groups, unions, fraternal or athletic groups, or [...] Appointment Radiology Mark Eastman M.D., M.S. [address] [place] [phone] 04/26/2022 Office Visit Otorhinolaryngology Roxanne Lanza APRN, C.N.P. [address] [place] [phone] 04/28/2022 Appointment Radiation Oncology Ursula Aguirre M.D. 200 [place] [phone] documented as of this encounter Visit Diagnoses Not on filedocumented in this encounter
--- OUTSIDE RECORDS SUMMARY | 2022-03-31 14:46 | XMS_ITS | Encounter Summary ---
:1955 Author Organization [facility] Address [address] [place] [address] Care Team Providers Name Role Phone Unavailable Primary Care Provider Unavailable Encounter Details Date Type Department Care Team Description 06/10/2020 Hospital Encounter Department of Summer Pérez [place] For Laboratory Medicine PMassiel, M.S . Screening For Other in [address] Viral Diseases [place], [place] (COVID-19) [address] [address] [place], [place] [phone] (Work) [phone] Social History Tobacco Use Types Packs/Day Years [...] do you attend latter-day or Never 2018 adventist services? Do you belong to any clubs [...] to pay for the very basics like Trunk[employer] hat hard 02/21/2019 food, housing, medical care, [...] Sig Dispensed Refills Start Date End Date aspirin 81 mg chewable Chew 81 mg every 0 tablet evening. Clare Aspirin diaper,brief,adult,disposab Bag: (36 each) 36 each 1 2 01/2019 le (DEPEND UNDERWEAR FOR WOMEN XL) misc fluticasone propionate Administer 1 spray 0 01/13 (FLONASE) 50 mcg/actuation into each nostril nasal spray daily as needed for allergies. hydroCHLOROthiazide Take 25 mg by 11 02/18/2019 (HYDRODIURIL) 25 mg tablet mouth every evening. losartan (COZAAR) 100 mg Take 100 mg by 0 020 tablet mouth every evening. acetaminophen (TYLENOL) 500 Take 500 mg by 0 10/23/2021 mg capsule mouth every 6 (six) hours as needed for pain. ibuprofen (ADVIL,MOTRIN) Three Times A Day 0 06/1510/22/2021 600 mg tablet as needed metFORMIN (GLUCOPHAGE) 500 Daily 0 8 10/16/2021 mg tablet potassium chloride Daily 0 04/21/20182021 (KLOR-CON M/KDUR) 20 mEq ER tablet documented as of this encounter Plan of Treatment Upcoming Encounters Date Type Specialty Care Team Description 04/22/2022 Clinical Admitting/Central Communication Scheduling 04/26/2022 Appointment Radiology Mark Eastman M.D., M.S. [address] [place] [address] 04/26/2022 Office Visit Otorhinolaryngology Roxanne Lanza, DESK SERGEANT, C.N.P. [address] [place] [phone] 04/28/2022 Appointment Radiation Oncology Ursula Aguirre M.D. [address] [place] [phone] documented as of this encounter Procedures Procedure Name Priority Date/Time Associated Diagnosis Comme nts SARS CORONAVIRUS-2 Routine 06/10/2020 11:50 AM Encounter For R esults for this RNA, V CDT Screening For Other procedur e are in Viral Diseases the results (COVID-19) section. documented in this encounter Results SARS Coronavirus-2 RNA, V Asymptomatic (06/10/2020 11:50 AM CDT) [place] [facility] Method Time Signature SARS-CoV-2 Swab, 06/10/2020 MKTO Specimen Nasopharynx 8:14 PM CDT Source SARS CoV-2 Undetected Undetected 06/10/2020 MKTO RNA, TMA 8:14 PM CDT Comment: SARS-CoV-2 RNA absent. This result does not rule out COVID-19 in the patient, as the sensitivity of the test depends o n the timing of the specimen collection and the quality of the specim en. Result should be correlated with patient's history and clinical presentat ion. ----ADDITIONAL INFORMATION---- This test is performed using the Aptima SARS-CoV-2 assay ([employer] which has received Emergency Use Authori zation (EUA) by the U.S. Food and Drug Administration. Fact sheets for this Emergency Use Autho rization (EUA) assay can be found at the following links: For Healthcare Providers: https://www.FedCyber a.gov/media/109337/download For Patients: https://www.fda.gov/media/ 667477/download Specimen Anatomical Collection Method Collection Time Receive d Time (Source) Location / / Volume Laterality Varies 06/10/2020 11:50 06/10/2020 2:54 (Nasopharynx) AM CDT PM CDT Summer Pérez P.A.-C., M.S. LAB MICROBIOLOGY - GENERAL O RDERABLES Performing Organization Address City/State/ZIP Code Phon e Number [facility]- [address] [place] [address] [place] [address] System [address] documented in this encounter Visit Diagnoses Diagnosis Encounter For Screening For Other Viral Diseases (COVID-19) documented in this encounter Additional Health Concerns Infection Onset Date Last Indicated Resolved Time COVID19 Pending 06/10/2020 06/10/2020 06/10/2020 8:15 PM CDT documented as of this encounter
--- OUTSIDE RECORDS SUMMARY | 2022-03-31 14:46 | XMS_ITS | Encounter Summary ---
:1955 Author Organization [facility] Address [address] [place] [address] Care Team Providers Name Role Phone Unavailable Primary Care Provider Unavailable Reason for Referral Outpatient (Routine) - Closed Specialty Diagnoses / Procedures Referred By Contact Refer red To Contact Radiation Oncology Ursula Aguirre [facility] M.D. [address] [place] [phone] Referral ID Status Reason Start Date Expiration Date Visits Requ ested Visits Authorized [id number] Closed 09/10/2021 09/10/2022 1 1 ING INSPECTOR Reason for Visit Outpatient (Routine) - Closed Specialty Diagnoses / Procedures Referred By Contact Refer red To Contact Radiation Oncology Ursula Aguirre [facility] M.D. [address] [place] [phone] Referral ID Status Reason Start Date Expiration Date Visits Requ ested Visits Authorized [id number] Closed 09/10/2021 09/10/2022 1 1 Encounter Details Date Type Department Care Team Description 09/17/2021 Hospital Encounter Department of Ursula Aguirre Neoplasm Of Radiation Oncology [facility] Supraglottic (HCC) in [place], [address] [place] [address] (Primary Dx) [place], [place] [address] [facility] [address] [place], [place] [phone] (Work) [phone] Social History Tobacco Use Types Packs/Day Years [...] do you attend jainism or Never 2018 mormonism services? Do you [...] Sign Reading Time Taken Comments Blood Pressure 142/74 09/17/2021 8:57 AM PARKING INSPECTOR Pulse 92 09/17/2021 8:57 AM PARKING INSPECTOR Temperature 36.4 ??C (97.6 ??F) 09/17/2021 8:57 AM PARKING INSPECTOR Respiratory Rate - - Oxygen Saturation - - Inhaled Oxygen Concentration - - Weight 88.3 kg (194 lb 10.7 oz) 09/17/2021 8:57 AM PARKING INSPECTOR Height - - Body Mass Index 32.24 02/26/2020 10:04 AM CDT documented in this encounter Medications at Time of Discharge Medication Sig Dispensed Refills Start Date End Date albuterol 90 mcg/actuation Inhale 2 puffs 2 [...] mouth every evening. acetaminophen (TYLENOL) 500 Take 2 tablets 0 10/13 mg tablet (1,000 mg total) by mouth every 6 (six) hours as needed for pain. diaper,brief,adult,disposab Bag: (36 each) 36 each 1 03/16 le (DEPEND UNDERWEAR FOR WOMEN XL) misc oxyCODONE (ROXICODONE) 5 mg Take 1 tablet [...] by 0 07/1710/16/2021 mg tablet mouth daily. metFORMIN (GLUCOPHAGE) 500 Daily 0 8 10/16/2021 mg tablet potassium chloride Daily 0 04/21/20182021 (KLOR-CON M/KDUR) 20 mEq ER tablet simvastatin (ZOCOR) 20 mg Take 20 mg by 0 10/16/2021 tablet mouth at bedtime. ibuprofen (ADVIL,MOTRIN) Take 200 mg by 0 10/23/2021 200 mg tablet mouth every 6 (six) hours as needed for pain. documented as of this encounter Progress Notes Summer Pérez P.A.-C., M.S. - 09/17/2021 9:00 AM CST SUBJECTIVE DIAGNOSIS 1. Malignant Neoplasm Of Supraglottic (HCC) SUPERVISED BY: Ursula Aguirre M.D. HISTORY OF PRESENT ILLNESS Ms. 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 Her oncologic history is as follows: 1. November 2018: ??The patient noted throat pain with swallowing along with intermittent ear pain,??managed with Tylenol. 2. February 2019: ??The patient experienced progressively worsening throat pain,??odynophagia, 10 pound??unintentional weight loss, hoarseness over the past few weeks,??and difficulty sleeping due to increased secretion. 3. February 08, 2019: ??Appointment with Dr. Darryl Grayson???[facility] at [facility]. ??Physical examination with flexible laryngoscopy revealed a large fungating mass overlying the posterior left arytenoid that appeared fairly extensive, extending over to the right arytenoid into the piriform sinus. ?? Vocal cords move normally. ??Patient did have some shotty adenopathy on the left side. ??Ordered CT scan and then arrange referral to [facility]. 4. February 12, 2019: ??CT scan of the neck with contrast demonstrated at the level of the epiglottis, there was asymmetric soft tissue prominence within the left posterior lateral aspect of the hypopharynxwith effacement of the left piriform sinus. ??The soft tissue prominence extended inferiorly to justabove the arytenoid cartilage. ??There was no evidence of cartilaginous erosive or destructive changes. ??Overall, there was focal narrowing of the airway immediately superior to the level of the cords, measuring approximately 5 mm. ??The vocal cords were otherwise symmetric. ??No adenopathy. ??No prevertebral soft tissue swelling. ?? 5. February 21, 2019: ??ENT consultation with Dr. Hung Mabry and Dr. Frank Arrieta??at [facility]. ??Physical examination revealed an exophytic mass of the left arytenoid which slightly crossed midline. ??It involved the medial aspect of the piriform sinus. ??The vocal cords move symmetrically bilaterally. ??Biopsy of laryngeal mass was performed. ??Pathology demonstrated invasive squamous cell carcinoma, moderately differentiated. 6. February 21, 2019:?CT scan of the chest demonstrated multiple bilateral solid and ground-glass sub6 mm pulmonary nodules. ??This included a 3 mm solid left upper lobe, 4 mm solid nodule in the left lower lobe, 5 mm solid nodule in the right lower lobe superior segment, a 5 mm solid nodule in the lateral right lower lobe, a ground-glass 4 mm nodule in the left lower lobe posterior segment, and an ill-defined ground-glass 5 mm nodule in the right upper lobe apical/posterior segment. ??Penetrating atherosclerotic ulcer along the left lateral wall of the aortic arch measuring 5 mm. ??No mediastinal,hilar, or axial enlarged lymph nodes. ??Multiple bilateral hypoattenuating nodules in the adrenal glands, indeterminate but likely represent adenomas. ??More prominent, slightly nodular parenchyma in the right breast relative to the left. 7. March 13, 2019: ??Radiation oncology consultation with Dr. Francisca Tapia and Dr. Domingo Love. ??Nasopharyngoscopy demonstrated an exophytic lesion along the left posterior aryepiglottic fold with extension to the right posterior area epiglottic fold,??consistent with the biopsy positive squamous cell carcinoma. ??They discussed the clinical staging of cT2 N0 and treatment options of surgical resection versus definitive radiation treatment. ??If the patient decides to have definitive radiation treatment, she will be referred to Radiation Oncology in [place]. 8. March 13, 2019: ??Follow-up appointment with Dr. Arrieta and Dr. Mabry who discussed treatment options including total laryngectomy versus radiation therapy. ??They were not able to offer partial laryngectomy given her lung disease and possible aspiration. ?? 9. March 15, 2019: ??Phone call with Dr. Tapia with the patient's [id number] reported that the patient had decided to undergo radiation treatment in [place]. ??She will have a follow-up abdominal MRI at [facility]. ??The patient will follow-up with her primary care provider regarding the asymmetry in the right breast.? 10. March 26, 2019 through May 04, 2019: ??Definitive radiotherapy to the supraglottic tumor to a dose of 7000 cGy in 35 fractions. 11. August 02, 2019: ??PEG tube exchange. 12. ??August 24, 2019: PET/CT showed no evidence for recurrent or metastatic supraglottic squamous cell Carcinoma. 13. ??September 28, 2019: ??Swallow study performed. ??Continue to use PEG. ??Swallow exercises. ??Suggest repeat VFSS in 4-6 weeks. ?? 14. ??November 02, 2019: ??PEG tube was dislodged, removed and replaced. ??It will be due again in 3 months. 15. ??January 31, 2020: ??Swallow study demonstrated moderate oropharyngeal dysphagia characterized by minimal aspiration. ??The patient was safe to consume soft/moist foods and thin liquids. 16. ??February 26, 2020: ??PEG tube was removed. 17. ??March 03, 2020: ??TSH 7.5 mIU/L 18. June 12, 2020: PET/CT showed no FDG avid head and neck lymphadenopathy. Scattered physiologicmuscular uptake in the neck. No distant metastatic disease. She has a stable 5.3 cm infrarenal aortic aneurysm. Her scope with Ms. Lanza went well. INTERVAL HISTORY The patient was seen and examined today with Dr. Aguirre. The patient reports doing well overall. She did not go to doctor visits last year due to concerns with COVID-19 and she is now re-establishing care. She reports doing well overall. She is planning to proceed with abdominal aortic aneurysm repair in the near future. She reports having increased shortness of breath and cough a couple weeks ago. She tested negative for COVID. She was prescribed antibiotics, but took 1 pill and developed a rash and then discontinued the medication. Her symptoms improved. She now has stable shortness of breath and cough, same as she has had chronically. She denies vision or hearing changes. She reports some pressure of the left ear helix that is stable over the past couple of weeks. She denies range of motion limitations of her jaw or neck. She has some swelling of the left lower neck that she reports has been there for a while and is stable. She denies any pain. Shereports eating regular foods and is taking everything by mouth. She denies pain or difficulty with sw allowing. She does report increased mucus in the morning and the need to clear her throat. She drinks extra water with benefit. She denies smoking. REVIEW OF SYSTEMS Review of systems was negative except as documented above. PATIENT REPORTED SYMPTOM SCREEN FATIGUE (Scale: 0 = no fatigue; 10 = worst fatigue you can imagine): 0 PAIN (Scale: 0 = no pain; 10 = worst pain you can imagine): 0 OVERALL QUALITY OF LIFE (Scale: 0 = as bad as can be; 10 = as good as can be): 8 OBJECTIVE BP 142/74 (BP Location: Left arm, Patient Position: Sitting, Cuff Size: Large) Pulse 92 Temp 36.4 ??C (Temporal) Wt 88.3 kg BMI 32.24 kg/m?? PHYSICAL EXAM General: Patient is alert and oriented in no apparent distress. Heart: Regular rate and rhythm. Lungs: Clear to auscultation bilaterally. ENT: Visible swelling of the left lower neck. Non-tender. No palpable masses. 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 #2?Definitive radiotherapy to the supraglottic tumor initiated on March 26, 2019; completed on??May 04, 2019 The patient returns today to re-establish care. She is doing well overall following definitive radiotherapy completed in April 2019. She has stable chronic respiratory symptoms. She is taking all of her nutrition orally without difficulty. Her weight has increased since we last saw her in 2019. Her last TSH on March 03, 2020 was 7.5 mIU/L. We discussed repeating thyroid lab work at this time, which has been ordered to be completed at [facility]. We will contact her with the result. She is planning to proceed with abdominal aortic aneurysm repair in the near future and has pre-op appointments in [place] on September 22, 2021. She is also scheduled for an ENT appointment in [place] on October 02, 2021 for evaluation prior to intubation. We discussed that she will likely be scoped at that visit. We will schedule a return visit here in 6 months. The patient was asked to contact us soonerwith questions or concerns. She verbally expressed her understanding of the plan. EDUCATION Ready to learn, no apparent learning barriers were identified; learning preferences include listening. Explained diagnosis and treatment plan; patient expressed understanding of the content. I personally spent 25 minutes in care of the patient today. Time includes both non face to face and face to face patient care. Signed by: Summer Pérez P.A.-C., M.S. 09/17/2021 10:49 AM [facility] [address] [place] [address] ING INSPECTOR Associated attestation - Ursula Aguirre M.D. - 09/17/2021 2:51 PM PARKING INSPECTOR I saw and evaluated the patient and participated in the rao portions of the service. I reviewed the documentation of Ms. Summer Pérez PA-C, MS and agree with the findings and plan. On exam she appears well. She has gained weight. Ears-TMs appear normal bilaterally. Oral cavity/oropharynx is normal to inspection. She is edentulous. Neck- she has mild to moderate submental lymphedema, but no masses or adenopathy in either neck. She will be scoped by ENT in the near future. I noted Dr. Eastman's consultation for her aneurysm. [facility] if needed. We will see her back in 6 months. Their questions were answered, and they were comfortable with this plan. Ursula Aguirre M.D., 09/17/2021 documented in this encounter Plan of Treatment Upcoming Encounters Date Type Specialty Care Team Description 04/22/2022 Clinical Admitting/Central Communication Scheduling 04/26/2022 Appointment Radiology Mark Eastman M.D., M.S. [address] [place] [phone] 04/26/2022 Office Visit Otorhinolaryngology Roxanne Lanza APRN, C.N.P. [address] [place] [phone] 04/28/2022 Appointment Radiation Oncology Ursula Aguirre M.D. [address] [place] [phone] Scheduled Referrals Name Type Priority Associated Order Schedule Diagnoses Radiation Oncology Outpatient Referral Routine On ce for 1 office visit Occurrences sta rting (clinic) 09/17/2021 unti l 09/17/2021 documented as of this encounter Results (ABNORMAL) Thyroid Function [place] (09/17/2021 10:38 AM PARKING INSPECTOR) P athologist Signature TSH, Sensitive 17.4 (H) 0.3 - 4.2 09/17/2021 [place] mIU/L 1:30 PM PARKING INSPECTOR Specimen Anatomical Collection Method Collection Time Receive d Time (Source) Location / / Volume Laterality Blood (Blood, 09/17/2021 10:38 09/17/2021 Venous) AM PARKING INSPECTOR 12:44 PM PARKING INSPECTOR Summer Pérez P.A.-C., M.S. LAB BLOOD ADD-ON Performing Organization Address City/State/ZIP Code Phon e Number [facility]- [address] [place] [address] [place] [address] System in [place] [address] documented in this encounter Visit Diagnoses Diagnosis Malignant Neoplasm Of Supraglottic (HCC) - Primary documented in this encounter
--- OUTSIDE RECORDS SUMMARY | 2022-03-31 14:46 | XMS_ITS | Encounter Summary ---
:1955 Author Organization [facility] Address [address] [place] [address] Care Team Providers Name Role Phone Unavailable Primary Care Provider Unavailable Encounter Details Date Type Department Care Team Description 09/17/2021 Hospital Encounter Department of Summer Pérez Maligna nt Neoplasm Of Laboratory Medicine P.Marilou., M.S . Supraglottic (HCC) in [place], [address] [place] [address] [address] [facility] [address] [place], [place] [phone] (Work) [phone] Social History Tobacco Use Types Packs/Day Years [...] or relatives? How often do you attend holiness or Never 2018 nondenominational services? Do you belong to any clubs or No 02/21/2019 organizations such as holiness groups, unions, fraternal or athletic groups, or [...] Appointment Radiology Mark Eastman M.D., M.S. [address] [place] [phone] 04/26/2022 Office Visit Otorhinolaryngology Roxanne Lanza, COPYMAN, C.N.P. [address] [place] [phone] 04/28/2022 Appointment Radiation Oncology Ursula Aguirre M.D. [address] [place] [phone] documented as of this encounter Procedures Procedure Name Priority Date/Time Associated Diagnosis Comme nts IL MICROSOMAL AB Routine 09/17/2021 10:38 Results for this EA/TPO AM DISABILITY INSURANCE CLAIM EXAMINER procedure are i n the results section. IL T4 FREE Routine 09/17/2021 10:38 Results for this AM DISABILITY INSURANCE CLAIM EXAMINER procedure are i n the results section. THYROID FUNCTION Routine 09/17/2021 10:38 Malignant Neoplasm O f Results for this CASCADE, S AM DISABILITY INSURANCE CLAIM EXAMINER Supraglottic (HCC) procedure are in the results section. documented in this encounter Results T4 (Thyroxine), Free, Serum (09/17/2021 10:38 AM DISABILITY INSURANCE CLAIM EXAMINER) P athologist Signature T4 (Thyroxine), 1.0 0.9 - 1.7 09/17/2021 [place] Free, S ng/dL 2:06 PM DISABILITY INSURANCE CLAIM EXAMINER Comment: Biotin has been identified by the [...] (Source) Location / / Volume Laterality Blood 09/17/2021 10:38 09/17/2021 AM DISABILITY INSURANCE CLAIM EXAMINER 12:44 PM DISABILITY INSURANCE CLAIM EXAMINER Summer Pérez P.A.-C., M.S. LAB BLOOD ADD-ON Performing Organization Address City/State/ZIP Code Phon e Number [facility]- [address] [place] [address] [place] [address] System in [place] [address] [place] [address] Thyroperoxidase (TPO) Antibodies, Serum (09/17/2021 10:38 AM DISABILITY INSURANCE CLAIM EXAMINER) Patholo gist Method Time Signature Thyroperoxidase Ab, 1.4 <9.0 09/18/2021 DTL S IU/mL 8:57 AM DISABILITY INSURANCE CLAIM EXAMINER Specimen Anatomical Collection Method Collection Time Receive d Time (Source) Location / / Volume Laterality Blood 09/17/2021 10:38 09/18/2021 8:15 AM DISABILITY INSURANCE CLAIM EXAMINER AM DISABILITY INSURANCE CLAIM EXAMINER Summer Pérez P.A.-C., M.S. LAB BLOOD NON ADD-ON Performing Organization Address City/State/ZIP Code Phon e Number [facility] - [address] [place], [place] [address] [facility] [place] [place] [address] [facility] [address] (ABNORMAL) Thyroid Function [place] (09/17/2021 10:38 AM DISABILITY INSURANCE CLAIM EXAMINER) P athologist Signature TSH, Sensitive 17.4 (H) 0.3 - 4.2 09/17/2021 [place] mIU/L 1:30 PM DISABILITY INSURANCE CLAIM EXAMINER Specimen Anatomical Collection Method Collection Time Receive d Time (Source) Location / / Volume Laterality Blood (Blood, 09/17/2021 10:38 09/17/2021 Venous) AM DISABILITY INSURANCE CLAIM EXAMINER 12:44 PM DISABILITY INSURANCE CLAIM EXAMINER Summer Pérez P.A.-C., M.S. LAB BLOOD ADD-ON Performing Organization Address City/State/ZIP Code Phon e Number [facility]- [address] [place] [address] [place] [address] System in [place] [address] documented in this encounter Visit Diagnoses Diagnosis Malignant Neoplasm Of Supraglottic (HCC) documented in this encounter
--- OUTSIDE RECORDS SUMMARY | 2022-03-31 14:46 | XMS_ITS | Encounter Summary ---
:1955 Author Organization [facility] Address [address] [place] [address] Care Team Providers Name Role Phone Unavailable Primary Care Provider Unavailable Reason for Visit Reason Comments Feeding Tube Encounter Details Date Type Department Care Team Description 02/26/2020 Clinical Support Division of Summer Pérez P .A.-C., M.S. [address] [place] [phone] Gastrostomy Status (HCC) (Primary Dx); Endocrinology in Chio Whitaker, R.N. [address] [place] [address] [phone] Malignant Neoplasm Of Supraglottic (HCC) [place], [place] [address] [place] [phone] Social History Tobacco Use Types Packs/Day Years [...] or relatives? How often do you attend caodaism or Never 2018 adventist services? Do you belong to any clubs or No 02/21/2019 organizations such as caodaism groups, unions, fraternal or athletic groups, or [...] documented as of this encounter Progress Notes Chio Whitaker, RShitalN. - 02/26/2020 11:00 AM CDT SUBJECTIVE REASON FOR VISIT Ms. Narayan was seen in the [facility] clinic today for a tube removal evaluation. OBJECTIVE The indication for tube placement: Cancer: Head and neck: history of supraglottic laryngeal cancer. ASSESSMENT Feeding tube removal requirements are: Tube site is at least 6 weeks old Patient is able to take all food, fluid and medications by mouth Patient has only used the tube for minimal water flushes to keep the tube from clogging for at least 4 weeks. Patient has maintained their weight since stopping the tube feeding. Patient does not have any upcoming procedure, surgeries or treatments in the next six months that may prevent them from getting enough nutrition and fluid by mouth. If patient has a previous swallow evaluation that showed they should not take anything by mouth, a repeat swallow evaluation would need to be done that shows it is now safe. Have the feeding tube requirements been meet? Yes Enter brand of tube: [employer] Enter size of tube: 20 Enter number of mls removed: 3.5 Was there difficulty in deflating the balloon: No Was there difficulty removing the tube: No Site assessment: scant dried mucous drainage, circumferential granulation tissue measuring approximately 6 mm, mild erythema around granulation tissue, treated with two silver nitrate sticks per protocol PLAN Return appointment with [facility] Nurse: As needed *[id number] reviewed and given to patient. *Gauze and tape provided for patient documented in this encounter Plan of Treatment Upcoming Encounters Date Type Specialty Care Team Description 04/22/2022 Clinical Admitting/Central Communication Scheduling 04/26/2022 Appointment Radiology Mark Eastman M.D., M.S. [address] [place] [phone] 04/26/2022 Office Visit Otorhinolaryngology Roxanne Lanza APRN, C.N.P. [address] [place] [phone] 04/28/2022 Appointment Radiation Oncology Ursula Aguirre M.D. [address] [place] [phone] documented as of this encounter Visit Diagnoses Diagnosis Gastrostomy Status (HCC) - Primary Malignant Neoplasm Of Supraglottic (HCC) documented in this encounter Administered Medications Inactive Administered Medications - up to 3 most recent administrations Medication Order MAR Action Action Date Dose Rate Site silver nitrate 75-25 % Given 02/26/2020 10:57 1 application Abdominal Tissue topical stick 1 AM CDT application (ARZOL) 1 application, topical, Once, On Tue02/26/20 at 1100, For 1 dose, PEG/PEJ: Applicators used on moist surface only. Touch and roll applicator over lesion site for 5 seconds, may repeat once immediately if needed to touch all affected areas. Continue treatment twice a week until lesion has resolved. If patient has significant pain during the application, stop the procedure, notify provider. documented in this encounter
--- OUTSIDE RECORDS SUMMARY | 2022-03-31 14:46 | XMS_ITS | Encounter Summary ---
:1955 Author Organization [facility] Address [address] [place] [address] Care Team Providers Name Role Phone Unavailable Primary Care Provider Unavailable Encounter Details Date Type Department Care Team Description 06/12/2020 Ancillary Procedure Department of Otorhinolaryngology Social History [...] or relatives? How often do you attend rastafarian or Never 2018 hoahaoism services? Do you belong to any clubs or No 02/21/2019 organizations such as rastafarian groups, unions, fraternal or athletic groups, or [...] Appointment Radiology Mark Eastman M.D., M.S. 200 [place] [phone] 04/26/2022 Office Visit Otorhinolaryngology Roxanne Lanza APRN, C.N.P. 200 [place] [phone] 04/28/2022 Appointment Radiation Oncology Ursula Aguirre M.D. 200 [place] [phone] documented as of this encounter Procedures Procedure Name Priority Date/Time Associated Comments Diagnosis OTORHINOLARYNGOLOGY IMAGE Routine 06/12/2020 12:16 Results for this EXAM PM CDT procedure are i n the results section. documented in this encounter Results Direct Laryngoscopy-Otorhinolaryngology Image Exam (06/12/2020 12:16 PM CDT) Specimen (Source) Anatomical Collection Method Collection Time Re ceived Time Location / / Volume Laterality 06/12/2020 12:18 PM CDT Narrative [facility]IMS - 06/12/2020 12:16 PM CDT This order has been created [...]
--- OUTSIDE RECORDS SUMMARY | 2022-03-31 14:46 | XMS_ITS | Encounter Summary ---
:1955 Author Organization [facility] Address [address] [place] [address] Care Team Providers Name Role Phone Unavailable Primary Care Provider Unavailable Encounter Details Date Type Department Care Team Description 03/12/2020 Hospital Encounter Department of Summer Pérez [facility] Laboratory Medicine PMassiel, M.S . Screening For Other in [address] Viral Diseases [place], [place] (COVID-19) [address] [phone] [place], [place] [phone] (Work) [phone] Social History Tobacco Use Types Packs/Day Years [...] or relatives? How often do you attend catholic or Never 2018 yarsanism services? Do you belong to any clubs or No 02/21/2019 organizations such as catholic groups, unions, fraternal or athletic groups, or [...] to pay for the very basics like [employer] [facility] hat hard 02/21/2019 food, housing, medical care, [...] Radiology Mark Eastman M.D., M.S. [address] [place] [address] 04/26/2022 Office Visit Otorhinolaryngology Roxanne Lanza, MICROBIOLOGICAL ANALYST, C.N.P. [address] [place] [phone] 04/28/2022 Appointment Radiation Oncology Ursula Aguirre M.D. [address] [place] [phone] documented as of this encounter Procedures Procedure Name Priority Date/Time Associated Diagnosis Comme nts SARS CORONAVIRUS-2 Routine 03/12/2020 12:21 PM Encounter For R esults for this RNA, V CDT Screening For Other procedur e are in Viral Diseases the results (COVID-19) section. SARS-COV-2 TOTAL Routine 03/12/2020 11:40 AM Encounter For Res ults for this ANTIBODY, SERUM CDT Screening For Other proce dure are in Viral Diseases the results (COVID-19) section. documented in this encounter Results SARS Coronavirus-2 RNA, V Asymptomatic (03/12/2020 12:21 PM CDT) [facility] Method Time Signature SARS-CoV-2 Swab, 03/12/2020 MKTO Specimen Nasopharynx 9:30 PM CDT Source SARS CoV-2 Undetected Undetected 03/12/2020 MKTO RNA, TMA 9:30 PM CDT Comment: SARS-CoV-2 RNA absent. This result does not rule out COVID-19 in the patient, as the sensitivity of the test depends o n the timing of the specimen collection and the quality of the specim en. Result should be correlated with patient's history and clinical presentat ion. ----ADDITIONAL INFORMATION---- This test is performed using the Aptima SARS-CoV-2 assay ([employer] which has received Emergency Use Authori zation (EUA) by the U.S. Food and Drug Administration. Fact sheets for this Emergency Use Autho rization (EUA) assay can be found at the following links: For Healthcare Providers: https://www.[employer] a.gov/media/916706/download For Patients: https://www.fda.gov/media/ 219908/download Specimen Anatomical Collection Method Collection Time Receive d Time (Source) Location / / Volume Laterality Varies 03/12/2020 12:21 03/12/2020 3:40 (Nasopharynx) PM CDT PM CDT Summer Pérez P.A.-C., M.S. LAB MICROBIOLOGY - GENERAL O RDERABLES Performing Organization Address City/State/ZIP Code Phon e Number [facility]- [address] [place] [address] [place] [address] SARS-CoV-2 Total Antibody, Serum (03/12/2020 11:40 AM CDT) [facility] Method Time Signature SARS-CoV-2 Negative Negative 03/12/2020 MKTO Nucleocapsid 7:45 PM CDT Total Ab, S Comment: No antibodies to SARS-CoV-2 detected. Ne gative results may occur in serum collected too soon fo llowing infection or in immunosuppressed patients. Follow- up testing with a molecular test is recommended in symptom atic patients. This test should not be used to exclude activ e/recent COVID-19. ----ADDITIONAL INFORMATION---- Testing was performed using the [employer] El [employer]csys Ubza-[id number] Reagent assay from [employer], which has received Emergency Use Authori zation(EUA) by the U.S. Food and Drug Administration . Fact sheets for this Emergency Use Autho rization (EUA) assay can be found at the following link s: For Healthcare Providers: https://www.fda.gov/media/758975/downloa d For Patients: https://www.fda.gov/media/540699/downloa d Specimen Anatomical Collection Method Collection Time Receive d Time (Source) Location / / Volume Laterality Blood (Blood, 03/12/2020 11:40 03/12/2020 7:12 Venous) AM CDT PM CDT Summer Pérez P.A.-C., M.S. LAB MICROBIOLOGY - BLOOD ORD [facility] Organization Address City/State/ZIP Code Phon e Number [facility]- [address] [place] [address] [place] [address] [address] documented in this encounter Visit Diagnoses Diagnosis Encounter For Screening For Other Viral Diseases (COVID-19) documented in this encounter Additional Health Concerns Infection Onset Date Last Indicated Resolved Time COVID19 Pending 03/12/2020 03/12/2020 03/12/2020 9:30 PM CDT documented as of this encounter
--- OUTSIDE RECORDS SUMMARY | 2022-03-31 14:46 | XMS_ITS | Encounter Summary ---
:1955 Author Organization [facility] Address [address] [place] [address] Care Team Providers Name Role Phone Unavailable Primary Care Provider Unavailable Reason for Referral Specialty Diagnoses / Procedures Referred By Contact Refer red To Contact Patience Adame M.D. [facility] [address] [place] [phone] Referral ID Status Reason Start Date Expiration Date Visits Requ ested Visits Authorized Encounter Details Date Type Department Care Team Description 04/24/2021 [facility] Sa kate Adame M.[facility]. [address] [place] [phone] (Wo rk) Social History Tobacco [...] or relatives? How often do you attend yazidi or Never 2018 mandaen services? Do you belong to any clubs or No 02/21/2019 organizations such as yazidi groups, unions, fraternal or athletic groups, or [...] Appointment Radiology Mark Eastman M.D., M.S. [address] [place] [phone] 04/26/2022 Office Visit Otorhinolaryngology Roxanne Lanza APRN, C.N.P. [address] [place] [phone] 04/28/2022 Appointment Radiation Oncology Ursula Aguirre M.D. [address] [place] [phone] Scheduled Referrals Name Type Priority Associated Order Schedule Diagnoses Covid immunization Outpatient Referral Routine Ex pected: office visit Booster 021 (Approximate), Expires: 04/24/2022 documented as of this encounter Visit Diagnoses Not on filedocumented in this encounter
--- OUTSIDE RECORDS SUMMARY | 2022-03-31 14:46 | XMS_ITS | Encounter Summary ---
:[address] [facility] Address [address] [place] [address] Care Team Providers Name Role Phone Unavailable Primary Care Provider Unavailable Reason for Visit Outpatient (Routine) - Closed Specialty Diagnoses / Procedures Referred By Contact Refer red To Contact Otorhinolaryngology Summer Pérez Kasperbauer, Jan L, P.A.-C., M.S. M.DShital [address] [place] [address] 200 [place] [phone] Referral ID Status Reason Start Date Expiration Date Visits Requ ested Visits Authorized [id number] Closed 03/14/2020 03/14/2021 1 1 Encounter Details Date Type Department Care Team Description 06/12/2020 Office Visit Department of Raghavendra, Bettie Neop lasm Of Supraglottic (HCC) (Primary Dx); Otorhinolaryngology in Hung Serna M.D. [address] [phone] Social History Tobacco Use Types Packs/Day Years [...] do you attend anabaptist or Never 2018 temple services? Do you belong to any clubs [...] Progress Notes Roxanne Lanza, AMAYA, C.N.P. - 06/12/2020 4:00 PM CDT Images from the original note were not included. CHIEF COMPLAINT/PURPOSE OF VISIT: 1. 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 ?? 2. Post treatment surveillance visit with PET imaging HISTORY OF PRESENT ILLNESS: Oncology History Malignant Neoplasm Of Supraglottic (HCC) 03/13/2019 Initial Diagnosis Malignant Neoplasm Of Supraglottic (HCC) 03/26/2019 - 05/04/2019 Radiation Therapy Definitive??radiation therapy to the supraglottic tumor??to a dose of 7000??cGy in 35??fractions (once a week she received twice a day treatment) INTERVAL HISTORY: Ms. Narayan is a 65-year-old female who presents to clinic with her jtcbqkis-si-smh for follow-up on the above-stated oncologic history of a supraglottic squamous cell carcinoma treated with definitive radiation. Today, she reports occasional sore throat with talking but otherwise throat pain is significantly improved. She denies otalgia, dysphagia, odynophagia. Her G- tube was removed in February. She does endorse a cough and that she has thick phlegm. She quit smoking when she started radiation. Overall, she reports she is doing well but notes up or voice that seems to come and go. She had PET imaging today CURRENT MEDICATIONS: Reviewed and updated in the EMR. ALLERGIES: Allergies Allergen Reactions ??? Penicillins Rash . PAST MEDICAL HISTORY: Past Medical History: Diagnosis Date ??? Anxiety Generalized Disorder ??? Arthritis ??? Asthma NOS (HCC) ??? Chronic Obstructive Pulmonary Disease (HCC) ??? Diabetes Mellitus NOS (HCC) ??? Dysphagia ??? Gastroesophageal Reflux Disease NOS [...] file Occupational History ??? Not on file Social Needs ??? Financial resource strain: Somewhat hard ??? Food insecurity Worry: Never true Inability: Never true ??? Transportation needs Medical: No Non-medical: No Tobacco Use ??? Smoking status: Current Every Day Smoker Packs/day: 0.75 Years: 43.00 Pack years: 32.25 Types: Cigarettes Start date: 08/15/1974 Last attempt to quit: 03/13/2019 Years since quittin.2 ??? Smokeless tobacco: Never Used Substance and Sexual Activity ??? Alcohol use: Not Currently Alcohol/week: 0.0 standard drinks Frequency: Never ??? Drug use: Not Currently ??? Sexual activity: Not Currently Partners: Male Lifestyle ??? Physical activity Days per week: 0 days Minutes per session: 0 min ??? Stress: To some extent Relationships ??? Social connections Talks on phone: More than three times a week Gets together: Once a week Attends temple service: Never Active member of club or organization: No Attends meetings of clubs or organizations: Never Relationship status: ??? Intimate partner violence Fear of current or ex partner: Not on file Emotionally abused: Not on file Physically abused: Not on file Forced sexual activity: Not on file Other Topics Concern ??? Not on file Social History Narrative ??? Not on file PHYSICAL EXAM: General: 65 y.o. year old female, in no acute distress. Skin: No rashes or lesions. Ears: Bilateral canals and TM's normal, no cerumen or middle ear effusion Nose: [place] and moist Oral Cavity: [place] and dry. Mucous membranes intact. Edentulous. Floor of mouth, oral tongue, base oftongue soft Neck: No palpable lymphadenopathy. Moderate lymphedema in the submental and anterior neck PROCEDURE NOTE Procedure: Flexible laryngoscopy, fiberoptic, diagnostic Details: After topical anesthesia with lidocaine and phenylephrine, the flexible laryngoscope was inserted onthe right side. The nasal cavity, nasopharynx and oropharynx were normal. At the level of the larynx, the epiglottis, false vocal folds, true vocal folds, arytenoids, and pyriform sinuses are without masses or lesions. There is moderate radiation edema noted. The true vocal folds appear to move bilaterally. There is significant dryness around the larynx which I suspect is contributing to her dysphonia. The patient tolerated the procedure well. DIAGNOSTICS: I reviewed the imaging studies and the interpretation as recorded. I reviewed the pertinent laboratory and diagnostic data. I reviewed her PET imaging. 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 ?? #2 Post treatment surveillance visit with PET imaging #3 Dysphonia #4 Intermittent sore throat with talking Plan: Ms. Narayan doing well from a head and neck cancer standpoint. Her pharynx and larynx are significantly dry along with dry mouth. We discussed the importance of adequate water intake, humidification, and consideration of nebulizing saline on a routine basis. I will call the patient and her jzfgdrsp-kx-dhi with results of the PET scan when they are available. They verbalized understanding. They should be seen again in 3-4 months for continued surveillance related to the history of a T2 supraglottic laryngeal squamous cell carcinoma. Addendum: I called the patient's tlmrremc-hw-fcj and explained that the radiologist thought the PET scan was reassuring and there was no obvious evidence of disease. There was physiologic uptake in thelarynx which fits with her physical exam. There is also an infrarenal aortic aneurysm. The daughter is aware of this and states they were waiting to complete her cancer treatment before addressing that. She will contact the provider who has been watching the aneurysm. PATIENT EDUCATION Ready to learn, no apparent learning barriers were identified; learning preferences include listening. Explained diagnosis and treatment plan; patient expressed understanding of the content. documented in this encounter Plan of Treatment Upcoming Encounters Date Type Specialty Care Team Description 04/22/2022 Clinical Admitting/Central Communication Scheduling 04/26/2022 Appointment Radiology Mark Eastman M.D., M.S. [address] [place] [phone] 04/26/2022 Office Visit Otorhinolaryngology Roxanne Lanza APRN, C.N.P. [address] [place] [phone] 04/28/2022 Appointment Radiation Oncology Ursula Aguirre M.D. 200 [place] [phone] documented as of this encounter Visit Diagnoses Diagnosis Malignant Neoplasm Of Supraglottic (HCC) - Primary Dysphonia documented in this encounter
--- OUTSIDE RECORDS SUMMARY | 2022-03-31 14:46 | XMS_ITS | Encounter Summary ---
:1955 Author Organization [facility] Address [address] [place] [address] Care Team Providers Name Role Phone Unavailable Primary Care Provider Unavailable Reason for Referral Outpatient (Routine) - Closed Specialty Diagnoses / Procedures Referred By Contact Refer red To Contact Otorhinolaryngology Roxanne Lanza [facility] AMAYA, C.N.P. 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 [place], [place] [address] [place] [address] 200 [place] [phone] (Wo rk) Social History Tobacco Use Types [...] or relatives? How often do you attend christian or Never 2018 nondenominational services? Do you belong to any clubs or No 02/21/2019 organizations such as christian groups, unions, fraternal or athletic groups, or [...] Radiology Mark Eastman M.D., M.S. [address] [place] [phone] 04/26/2022 Office Visit Otorhinolaryngology Roxanne Lanza, DROP WORKER, C.N.P. [address] [place] [phone] 04/28/2022 Appointment Radiation Oncology Ursula Aguirre M.D. [address] [place] [phone] Scheduled Referrals Name Type Priority Associated Order Schedule Diagnoses Otorhinolaryngology office Outpatient Routine E xpected: visit (clinic) Referral 09/23/2021 (Approximate), Expires: 12/14/2022 documented as of this encounter Visit Diagnoses Not on filedocumented in this encounter
--- OUTSIDE RECORDS SUMMARY | 2022-03-31 14:46 | XMS_ITS | Encounter Summary ---
:1955 Author Organization [facility] Address [address] [place] [address] Care Team Providers Name Role Phone Unavailable Primary Care Provider Unavailable Encounter Details Date Type Department Care Team Description 09/15/2021 Hospital Encounter Department of Ursula Aguirre [facility] Thoracic Laboratory Medicine Kimberley Bacon Aortic Without and Pathology, [address] [place] [address] Rupture (HCC) [facility] in [place] [phone] [place] [phone] [facility] (Work) [place], [place] [phone] (Fax) [phone] Social History Tobacco Use Types Packs/Day Years [...] or relatives? How often do you attend druze or Never 2018 faith services? Do you belong to any clubs or No 02/21/2019 organizations such as druze groups, unions, fraternal or athletic groups, or [...] 6 (six) hours as needed for pain. aspirin 81 mg chewable Chew 81 mg [...] in 240 mLs (8 ounces) of beverage. sennosides-docusate sodium Take 1 tablet by 0 [...] Appointment Radiology Mark Eastman M.D., M.S. [address] [place] [phone] 04/26/2022 Office Visit Otorhinolaryngology Roxanne Lanza APRN, C.N.P. [address] [place] [phone] 04/28/2022 Appointment Radiation Oncology Ursula Aguirre M.D. [address] [place] [phone] documented as of this encounter Procedures Procedure Name Priority Date/Time Associated Comments Diagnosis CREATININE WITH Routine 09/15/2021 9:46 AM Aneurysm Thoracic R esults for this EGFR, S/P CLIENT MANAGER Aortic Without procedure are in Rupture (HCC) the results section. documented in this encounter Results (ABNORMAL) Creatinine with Estimated GFR (09/15/2021 9:46 AM CLIENT MANAGER) P athologist Signature Creatinine, S 1.20 (H) 0.59 - 09/15/2021 DTL 1.04 mg/dL 10:48 AM CLIENT MANAGER eGFR-Non 48 (L) >=60 09/15/2021 DTL Black/ mL/min/BSA 10:48 AM CLIENT MANAGER [place] Comment: ----ADDITIONAL INFORMATION---- Estimated GFR calculated using the 2009 CKD_EPI creatinine equation. eGFR-Black/ 55 (L) >=60 mL/min/BSA 2021 10:48 AM CLIENT MANAGER DTL Comment: ----ADDITIONAL INFORMATION---- Estimated GFR calculated using the 2009 CKD_EPI creatinine equation. Specimen Anatomical Collection Method Collection Time Receive d Time (Source) Location / / Volume Laterality Blood (Blood, 09/15/2021 9:46 AM 09/15/19 22 Venous) CLIENT MANAGER 10:30 AM CLIENT MANAGER Ursula Aguirre M.D. LAB BLOOD ADD-ON Performing Organization Address City/State/ZIP Code Phon e Number [facility] - [address] [place], [place] [address] [facility] [place] [address] [facility] 200 [facility] documented in this encounter Visit Diagnoses Diagnosis Aneurysm Thoracic Aortic Without Rupture (HCC) documented in this encounter
--- OUTSIDE RECORDS SUMMARY | 2022-03-31 14:46 | XMS_ITS | Encounter Summary ---
:1955 Author Organization [facility] Address [address] [place] [address] Care Team Providers Name Role Phone Unavailable Primary Care Provider Unavailable Encounter Details Date Type Department Care Team Description 03/03/2020 Hospital Encounter Department of Summer Pérez Maligna nt Neoplasm Of Laboratory Medicine P.Marilou., M.S . Supraglottic (HCC) in [place], [address] [place] [address] 300 [facility] [address] [place], [place] [phone] (Work) [phone] Social History Tobacco Use Types Packs/Day Years [...] or relatives? How often do you attend faith or Never 2018 anglican services? Do you belong to any clubs or No 02/21/2019 organizations such as faith groups, unions, fraternal or athletic groups, or [...] Appointment Radiology Mark Eastman M.D., M.S. [address] [place] [phone] 04/26/2022 Office Visit Otorhinolaryngology Roxanne Lanza APRN, C.N.P. [address] [place] [phone] 04/28/2022 Appointment Radiation Oncology Ursula Aguirre M.D. [address] [place] [phone] documented as of this encounter Procedures Procedure Name Priority Date/Time Associated Diagnosis Comme nts THYROID-STIMULATING Routine 03/03/2020 10:37 Malignant Neoplas m Of Results for this HORMONE-SENSITIVE AM CDT Supraglottic (HCC) proc edure are in (S-TSH) the results section. documented in this encounter Results (ABNORMAL) S-TSH (Thyroid-Stimulating Hormone - Sensitive) (03/03/2020 10:37 AM CDT) P athologist Signature TSH, Sensitive 7.5 (H) 0.3 - 4.2 03/03/2020 [place] mIU/L 3:09 PM CDT Comment: Biotin has been identified by the tanesha laureano as a potential interfering substance. ??Higher concentr ations of biotin may be found in multivitamins, hair/nail supple ments, and workout supplements. ??If the result does not [facility] clinical observations, repeat testing after patient refrains fr om the use of supplements for at least 12 hours. Specimen Anatomical Collection Method Collection Time Receive d Time (Source) Location / / Volume Laterality Blood (Blood, 03/03/2020 10:37 03/03/2020 1:16 Venous) AM CDT PM CDT Summer Pérez P.A.-C., M.S. LAB BLOOD ADD-ON Performing Organization Address City/State/ZIP Code Phon e Number [facility] [address] [place] [address] [place] [address] System in [place] [address] documented in this encounter Visit Diagnoses Diagnosis Malignant Neoplasm Of Supraglottic (HCC) documented in this encounter
--- OUTSIDE RECORDS SUMMARY | 2022-03-31 14:46 | XMS_ITS | Encounter Summary ---
:1955 Author Organization [facility] Address [address] [place] [address] Care Team Providers Name Role Phone Unavailable Primary Care Provider Unavailable Encounter Details Date Type Department Care Team Description 09/04/2021 Clinical Communication Department of Ursula Aguirre Radiation Oncology Kimberley Kaur [place] [address] [facility] [address] [place] [phone] Social History Tobacco Use Types Packs/Day Years [...] do you attend taoism or Never 2018 mandaeism services? Do you belong to any clubs [...] this encounter Miscellaneous Notes Telephone Encounter - Ayla Orellana - 09/10/2021 9:54 AM CST Vania Craft, So are you checking into Dr. Aguirre' question about who the patient is following with for her head and neck cancer, or do I not need to worry about that and just get these other appointments scheduled? Ayla [facility] Telephone Encounter - Ayla Orellana - 09/04/2021 12:41 PM CST Caller: Darlin Is there a valid authorization to speak with caller? Yes Primary Radiation Oncologist: Dr. Aguirre Reason for call: Darlin calls today regarding her mom's appointments orders (over a year ago) and would like to get them scheduled. There are orders for Vascular Medicine as well as a CT. I told her that I would let the team know of her request, that I would see what you wanted to do, and that we wouldreach out to them with a plan. Phone number: [phone] Is it okay to leave a voicemail on answering machine with test results? No Pharmacy (if medication related): N/A Ayla Orellana [facility] documented in this encounter Plan of Treatment Upcoming Encounters Date Type Specialty Care Team Description 04/22/2022 Clinical Admitting/Central Communication Scheduling 04/26/2022 Appointment Radiology Mark Eastman M.D., M.S. [address] [place] [phone] 04/26/2022 Office Visit Otorhinolaryngology Roxanne Lanza, [employer], C.N.P. [address] [place] [phone] 04/28/2022 Appointment Radiation Oncology Ursula Aguirre M.D. [address] [place] [phone] documented as of this encounter Visit Diagnoses Not on filedocumented in this encounter
--- OUTSIDE RECORDS SUMMARY | 2022-03-31 14:46 | XMS_ITS | Encounter Summary ---
:1955 Author Organization [facility] Address [address] [place] [address] Care Team Providers Name Role Phone Unavailable Primary Care Provider Unavailable Reason for Referral Outpatient (Routine) - Closed Specialty Diagnoses / Procedures Referred By Contact Refer red To Contact Radiation Oncology Ursula Aguirre [facility] M.D. 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 How often do you attend confucianism or Never 2018 episcopalian services? Do you belong to any clubs or No 02/21/2019 organizations such as confucianism groups, unions, [employer] or athletic groups, or school groups? How [...] Appointment Radiology Mark Eastman M.D., M.S. [address] [place] [phone] 04/26/2022 Office Visit Otorhinolaryngology Roxanne Lanza APRN, C.N.P. [address] [place] [phone] 04/28/2022 Appointment Radiation Oncology Ursula Aguirre M.D. [address] [place] [phone] Scheduled Referrals Name Type Priority Associated Diagnoses Order S chedule Radiation Oncology Outpatient Referral Routine Ex pected: office visit 09/10/2021 (clinic) (Approximate), Expires: 12/09/2022 documented as of this encounter Visit Diagnoses Not on filedocumented in this encounter
--- OUTSIDE RECORDS SUMMARY | 2022-03-31 14:46 | XMS_ITS | Encounter Summary ---
:1955 Author Organization [facility] Address [address] [place] [id number] Care Team Providers Name Role Phone Unavailable Primary Care Provider Unavailable Reason for Referral Outpatient (Routine) - Closed Specialty Diagnoses / Procedures Referred By Contact Refer red To Contact Vascular Medicine Diagnoses Aneurysm Abdominal Aortic Without Rupture (HCC) Mark Eastman [place] M.D., M.S. [address] [place] [phone] Referral ID Status Reason Start Date Expiration Date Visits Requ ested Visits Authorized [id number] Closed 09/15/2021 09/15/2022 1 1 utpatient (Routine) - Closed Specialty Diagnoses / Procedures Referred By Contact Refer red To Contact Diagnoses Aneurysm Abdominal Aortic Without Rupture (HCC) Mark Eastman [place] [facility] [place] Procedures Echo Stress MTreasure., M.S. [address] [place] [phone] Referral ID Status Reason Start Date Expiration Date Visits Requ ested Visits Authorized [id number] Closed 09/15/2021 09/15/2022 1 1 utpatient (Routine) - Closed Specialty Diagnoses / Procedures Referred By Contact Refer red To Contact Diagnoses Aneurysm Abdominal Aortic Without Rupture (HCC) Mark Eastman [place] [facility] [place] Procedures ECG 12 Lead M.D., M.S. [place], [place] [phone] Referral ID Status Reason Start Date Expiration Date Visits Requ ested Visits Authorized [id number] Closed 09/15/2021 09/15/2022 1 1 utpatient (Routine) - Closed Specialty Diagnoses / Procedures Referred By Contact Refer red To Contact Diagnoses Aneurysm Abdominal Aortic Without Rupture (HCC) Mark Eastman [facility] To[place] Procedures DX Chest AP or PA and Lateral 2 Views Kimberley, M.S. [place], [place] [phone] Referral ID Status Reason Start Date Expiration Date Visits Requ ested Visits Authorized [id number] Closed 09/15/2021 09/15/2022 1 1 MAKER Reason for Visit Outpatient (Routine) - Closed Specialty Diagnoses / Procedures Referred By Contact Refer red To Contact Vascular Medicine Diagnoses Aneurysm Thoracic Aortic Without Rupture (HCC) Ursula Aguirre [facility] [place] [address] Referral ID Status Reason Start Date Expiration Date Visits Requ ested Visits Authorized [id number] Closed 06/26/2020 06/26/2021 1 1 Encounter Details Date Type Department Care Team Description 09/15/2021 Office Visit Division of Vascular Dina Eastman Abdominal Aortic Without Rupture (HCC) (Primary Dx); and Endovascular Mark Frederick M.D., Dina ham Thoracic Aortic Without Rupture (HCC); Surgery in [facility]. Malignant Neoplasm Of Supraglottic (HCC) [facility] [phone] Social History Tobacco Use Types Packs/Day Years [...] you attend latter day or Never 2018 bahai services? Do you belong to any clubs [...] documented as of this encounter Progress Notes Mark Eastman M.D., M.S. - 09/15/2021 3:00 PM CST Obdulia Narayan : 1955 Visit Date: 09/16/21 SUBJECTIVE CHIEF COMPLAINT/ REASON FOR VISIT: Follow Up known aaa HISTORY OF PRESENT ILLNESS: Obdulia Narayan is a 66 y.o. female who returns for evaluation of known AAA. She was seen in 2019 and presents for follow up. The current medications, allergies, medical, surgical, history sections of the chart have been reviewed and updated as pertinent. Past Medical History: Diagnosis Date ??? Anxiety Generalized Disorder ??? Arthritis ??? Asthma NOS (HCC) ??? Chronic Obstructive Pulmonary Disease (HCC) ??? Diabetes Mellitus NOS (HCC) ??? Dysphagia ??? Gastroesophageal Reflux Disease NOS ??? Hyperlipidemia ??? Hypertension NOS ??? Malignant Neoplasm Of Supraglottic (HCC) ??? Malignant Neoplasm Of Supraglottic (HCC) ??? Pneumonia Past Surgical History: Procedure Laterality Date ??? TUBAL LIGATION ??? UMBILICAL HERNIA REPAIR with mesh OBJECTIVE VITAL SIGNS There were no vitals filed for this visit. PHYSICAL EXAM: General: Alert and oriented, No acute distress. CV: Normal rate and regular rhythm Resp: Respirations are nonlabored Abdomen: Soft, no pulsatile mass appreciated VASCULAR EXAM:: Peripheral Vascular Pulse Exam Left Femoral: 2+ Right Femoral: 2+ DIAGNOSTIC FINDINGS: I have reviewed the patient's current laboratory, imaging, and other diagnosticstudies as pertinent. US: CTA: 5.6 cm infrarenal abdominal aortic aneurysm. Adequate anatomy in access for infrarenal repair. ASSESSMENT / PLAN Ms. Narayan presents for follow-up evaluation of her abdominal aortic aneurysm which has grown in size and exceeds 5.5 cm. We discussed the etiology natural history and treatment options for abdominal aortic aneurysm repair. I do not think that she has a good open surgical candidate but is for endovascular repair. I therefore discussed with her about proceeding with pre anesthesia medical evaluation for planned repair given its current size and rupture risk. I would like her to see ENT to evaluate her larynx to ensure there would not be any issues with intubation. Will also ensure she gets a cardiopulmonary evaluation and plan for surgical date. I discussed the procedure with her including perioperative recovery, complications, and need for long-term surveillance and Re interventions. She was understanding wished to proceed. DIAGNOSIS #1 Aneurysm Thoracic Aortic Without Rupture (HCC) #2 Aneurysm Abdominal Aortic Without Rupture (HCC) #3 Malignant Neoplasm Of Supraglottic (HCC) Mark Eastman M.D., M.S. MAKER documented in this encounter Plan of Treatment Upcoming Encounters Date Type Specialty Care Team Description 04/22/2022 Clinical Admitting/Central Communication Scheduling 04/26/2022 Appointment Radiology Mark Eastman M.D., M.S. [address] [place] [phone] 04/26/2022 Office Visit Otorhinolaryngology Roxanne Lanza, SENIOR TABLEAU DEVELOPER, C.N.P. [address] [place] [phone] 04/28/2022 Appointment Radiation Oncology Ursula Aguirre M.D. [address] [place] [phone] Scheduled Referrals Name Type Priority Associated Order Schedule Diagnoses Vascular Medicine Outpatient Referral Routine Aneurysm Abdomin al 1 Occurrences - KAROL consult Aortic Without starting 08/2021 (clinic) Rupture (HCC) until 12/14/19 23 documented as of this encounter Results SARS Coronavirus-2 RNA, V Asymptomatic (10/19/2021 12:57 PM BELT MAKER) [facility] Method Time Signature SARS-CoV-2 Swab, 10/20/2021 MKTO Specimen Nasopharynx 1:47 AM BELT MAKER Source SARS CoV-2 Undetected Undetected 10/20/2021 MKTO RNA, TMA 1:47 AM BELT MAKER Comment: SARS-CoV-2 RNA absent. This result does not rule out COVID-19 in the patient, as the sensitivity of the test depends o n the timing of the specimen collection and the quality of the specim en. Result should be correlated with patient's history and clinical presentat ion. ----ADDITIONAL INFORMATION---- This molecular amplification test was pe rformed using the Aptima SARS-CoV-2 assay ([employer] on the [employer] tem under emergency use authorization (EUA) by the U.S. Food and Drug Administ ration. Fact sheets for this EUA assay can be fo und at the following links: For Healthcare Providers: https://www.[employer] a.gov/media/455915/download For Patients: https://www.fda.gov/media/ 921998/download Specimen Anatomical Collection Method Collection Time Receive d Time (Source) Location / / Volume Laterality Varies 10/19/2021 12:57 10/19/2021 7:37 (Nasopharynx) PM BELT MAKER PM BELT MAKER Mark Eastman M.D., M.S. LAB MICROBIOLOGY - [facility] ORDERABLES Performing Organization Address City/State/ZIP Code Phon e Number [facility]- [address] [place] [id number] [place] [address] [address] ECHO STRESS 2D WITH COLOR, LIMITED DOPPLER AND CONTRAST (09/22/2021 1:40 PM BELT MAKER) [facility] Method Time Signature Ejection Fraction 60 [...] / / Volume Laterality 09/22/2021 12:25 PM BELT MAKER Impressions 09/22/2021 8:44 PM BELT MAKER STRESS TEST:Dobutamine was infused from 5 mcg/kg/min to 40 mcg/kg/min. A dose of 0.25 mg of atropine was administered. A peak heart rate of 144 BPM was achieved (93% age-predicted maximal HR). The test was terminated due to target heart rate achievement. The patient developed chest pain. The [facility] [place] ECG demonstrated sinus rhythm. The baseline ECG [...] complete report, see the Order-L evel Documents. Narrative 09/22/2021 8:44 PM BELT MAKER For the complete report, see the Order-Level [...] due to target heart rate achievement. The [facility] developed chest pain. The baseline ECG demonstrated [...] report, see the Order-L evel Documents. Mark Eastman M.D., M.S. CV ECHO PROCEDURES DX Chest AP or PA and Lateral 2 Views (09/22/2021 11:05 AM BELT MAKER) Anatomical Region Laterality Modality Chest, Thoracic RST LOS, Thoracic ARZ LOS, Thoracic N/A Digital Radiography FLA LOS Specimen (Source) Anatomical Collection Method Collection Time Re ceived Time Location / / Volume Laterality 09/22/2021 11:14 AM BELT MAKER Impressions 09/22/2021 11:36 AM BELT MAKER Comparison PET/CT 06/12/2020. Prominent ascending aorta. Calcified tortuous aorta. Coronary calcification. Chest otherwise negative. Narrative 09/22/2021 11:36 AM BELT MAKER EXAM: ??DX CHEST AP OR PA AND LATERAL 2 VIEWS Procedure Note Chong Celaya M.D. - 09/22/2021Format ting of this note might be different from the original. EXAM: DX CHEST AP OR PA AND LATERAL 2 EWS IMPRESSION: Comparison PET/CT 06/12/2020. Prominent ascending aorta. Calcified tortuous aorta. Coronary calcification. Chest otherwise negative. Mark Eastman M.D., M.S. IMG DIAGNOSTIC IMAGING PROCEDURES ECG 12 Lead (09/22/2021 10:50 AM BELT MAKER) P athologist Signature Ventricular Rate 94 BPM MUSE ECG/Min ND Interval 188 ms MUSE QRSD Interval 76 ms MUSE QT Interval 360 ms MUSE QTC Interval 450 ms MUSE P [place] 42 degrees MUSE R [place] 43 degrees MUSE T Wave [place] 67 degrees MUSE Specimen Anatomical Collection Method Collection Time Receive d Time (Source) Location / / Volume Laterality 09/22/2021 10:50 09/22/2021 AM BELT MAKER 10:53 AM BELT MAKER Impressions MUSE - 09/22/2021 10:53 AM BELT MAKER Normal sinus rhythm Nonspecific ST abnormality No previous ECGs available Reviewed by LEILANI Israel Narrative This result has an attachment that is no t available. Procedure Note Victor Manuel Cummings M.D. - 09/22/2021Forma tting of this note might be different from the original. IMPRESSION: Normal sinus rhythm Nonspecific ST abnormality No previous ECGs available Reviewed by LEILANI Israel Mark Eastman M.D., M.S. ECG ORDERABLES Performing Organization Address City/State/ZIP Code Phon e Number MUSE MUSE NA Type and Screen (with reflex Antibody ID) (09/22/2021 10:21 AM BELT MAKER) Patholo gist Method Time Signature ABORh A Pos Not 09/22/2021 ETRM applicable 4:15 PM BELT MAKER Antibody Negative Negative 09/22/2021 ETRM Screen 4:26 PM BELT MAKER Type & Screen 11/20/2021 09/22/2021 ETRM Expiration 23:59 4:15 PM BELT MAKER Testing [facility] 09/22/2021 ETRM Location 10:52 AM BELT MAKER Specimen Anatomical Collection Method Collection Time Receive d Time (Source) Location / / Volume Laterality Blood (Blood, 09/22/2021 10:21 09/22/2021 Venous) AM BELT MAKER 10:52 AM BELT MAKER Mark Eastman M.D., M.S. LAB BLOOD BANK TEST ORD ERABLES Performing Organization Address City/State/ZIP Code Phon e Number [facility] - [address] [place], [place] [address] [facility] [place] [address] Laboratories-[facility] [address] (ABNORMAL) Lipid Panel (09/22/2021 10:21 AM BELT MAKER) P athologist Signature Cholesterol, 265 (H) mg/dL 09/22/2021 DTL Total 11:30 AM BELT MAKER Comment: ----REFERENCE VALUE---- Desirable: < 200 Borderline high: 200 - 239 High: > or = 240 Triglycerides 390 (H) mg/dL 09/22/2021 11:30 AM BELT MAKER DT L Comment: ----REFERENCE VALUE---- Normal: <150 Borderline high: 150-199 High: 200-499 Very high: > or =500 Cholesterol, HDL, S 37 (L) >=50 mg/dL 09/22/2021 11:30 AM BELT MAKER DTL Calculated LDL 150 (H) mg/dL 09/22/2021 11:30 AM BELT MAKER D TL Comment: ----REFERENCE VALUE---- Desirable: <100 mg/dL Above Desirable: 100-129 mg/dL Borderline High: 130-159 mg/dL High: 160-189 mg/dL Very High: >=190 mg/dL Cholesterol, Non-HDL, Calculated 228 (H) mg/dL 022 11:30 AM BELT MAKER DTL Comment: ----REFERENCE VALUE---- Desirable: <130 Above Desirable: 130-159 Borderline high: 160-189 High: 190-219 Very high: > or =220 Specimen Anatomical Collection Method Collection Time Receive d Time (Source) Location / / Volume Laterality Blood (Blood, 09/22/2021 10:21 09/22/2021 Venous) AM BELT MAKER 11:11 AM BELT MAKER Mark Eastman M.D., M.S. LAB BLOOD ADD-ON Performing Organization Address City/State/ZIP Code Phon e Number [facility] - [address] [place] [phone] [facility] [place] [address] [facility] 200 [facility] Hepatic Function Panel (09/22/2021 10:21 AM BELT MAKER) Patholo gist Method Time Signature Bilirubin, Total, S 0.3 <=1.2 09/22/2021 DTL mg/dL 11:29 AM BELT MAKER Bilirubin, Direct, S <0.2 0.0 - 0.3 09/22/2021 DTL mg/dL 11:29 AM BELT MAKER Aspartate 15 8 - 43 09/22/2021 DTL Aminotransferase U/L 11:29 AM BELT MAKER (AST), S Alanine 13 7 - 45 09/22/2021 DTL Aminotransferase U/L 11:29 AM BELT MAKER (ALT), S Alkaline 69 35 - 104 09/22/2021 DTL Phosphatase, S U/L 11:29 AM BELT MAKER Albumin, S 4.3 3.5 - 5.0 09/22/2021 DTL g/dL 11:29 AM BELT MAKER Protein, Total, S 7.1 6.3 - 7.9 09/22/2021 DTL g/dL 11:29 AM BELT MAKER Specimen Anatomical Collection Method Collection Time Receive d Time (Source) Location / / Volume Laterality Blood (Blood, 09/22/2021 10:21 09/22/2021 Venous) AM BELT MAKER 11:11 AM BELT MAKER Mark Eastman M.D., M.S. LAB BLOOD ADD-ON Performing Organization Address City/State/ZIP Code Phon e Number [facility] - [address] [place], [place] [address] [facility] [place] [address] [facility] 200 [facility] (ABNORMAL) CBC with Differential, Blood (09/22/2021 10:21 AM BELT MAKER) [facility] Method Time Signature Hemoglobin 11.2 (L) 11.6 - 09/22/2021 DTL 15.0 g/dL 10:59 AM BELT MAKER Hematocrit 35.2 (L) 35.5 - 09/22/2021 DTL 44.9 % 10:59 AM BELT MAKER Erythrocytes 3.87 (L) 3.92 - 09/22/2021 DTL 5.13 10:59 AM BELT MAKER x10(12)/L MCV 91.0 78.2 - 09/22/2021 DTL 97.9 fL 10:59 AM BELT MAKER RBC Distrib Width 15.4 12.2 - 09/22/2021 DTL 16.1 % 10:59 AM BELT MAKER Platelet Count 271 157 - 371 09/22/2021 DTL x10(9)/L 10:59 AM BELT MAKER Leukocytes 5.3 3.4 - 9.6 09/22/2021 DTL x10(9)/L 10:59 AM BELT MAKER Neutrophils 3.56 1.56 - 09/22/2021 DTL 6.45 10:59 AM BELT MAKER x10(9)/L Lymphocytes 0.82 (L) 0.95 - 09/22/2021 DTL 3.07 10:59 AM BELT MAKER x10(9)/L Monocytes 0.48 0.26 - 09/22/2021 DTL 0.81 10:59 AM BELT MAKER x10(9)/L Eosinophils 0.35 0.03 - 09/22/2021 DTL 0.48 10:59 AM BELT MAKER x10(9)/L Basophils 0.04 0.01 - 09/22/2021 DTL 0.08 10:59 AM BELT MAKER x10(9)/L Specimen Anatomical Collection Method Collection Time Receive d Time (Source) Location / / Volume Laterality Blood (Blood, 09/22/2021 10:21 09/22/2021 Venous) AM BELT MAKER 10:49 AM BELT MAKER Mark Eastman M.D., M.S. LAB BLOOD ADD-ON Performing Organization Address City/State/[facility] Code Phon e Number [facility] - [address] [place], [place] [address] [facility] [place] [address] [facility] 200 [facility] (ABNORMAL) Basic Metabolic Panel (09/22/2021 10:21 AM BELT MAKER) P athologist Signature Potassium, S 4.7 3.6 - 5.2 09/22/2021 DTL mmol/L 11:29 AM BELT MAKER Sodium, S 135 135 - 145 09/22/2021 DTL mmol/L 11:29 AM BELT MAKER Chloride, S 98 98 - 107 09/22/2021 DTL mmol/L 11:29 AM BELT MAKER Bicarbonate, S 27 22 - 29 09/22/2021 DTL mmol/L 11:29 AM BELT MAKER Anion Gap 10 7 - 15 09/22/2021 DTL 11:29 AM BELT MAKER BUN (Blood 24 (H) 6 - 21 09/22/2021 DTL Urea mg/dL 11:29 AM BELT MAKER Nitrogen), S Creatinine, S 1.11 (H) 0.59 - 09/22/2021 DTL 1.04 mg/dL 11:29 AM BELT MAKER eGFR-Non 52 (L) >=60 09/22/2021 DTL Black/ mL/min/BSA 11:29 AM BELT MAKER Czech Comment: ----ADDITIONAL INFORMATION---- Estimated GFR calculated using the 2009 CKD_EPI creatinine equation. eGFR-Black/ 60 >=60 mL/min/BSA 2021 11:29 AM BELT MAKER DTL Comment: ----ADDITIONAL INFORMATION---- Estimated GFR calculated using the 2009 CKD_EPI creatinine equation. Calcium, Total, S 9.7 8.8 - 10.2 mg/dL 09/22/2021 11:2 9 AM BELT MAKER DTL Glucose, S 107 70 - 140 mg/dL 09/22/2021 11:29 AM BELT MAKER DTL Specimen Anatomical Collection Method Collection Time Receive d Time (Source) Location / / Volume Laterality Blood (Blood, 09/22/2021 10:21 09/22/2021 Venous) AM BELT MAKER 11:11 AM BELT MAKER Mark Eastman M.D., M.S. LAB BLOOD ADD-ON Performing Organization Address City/State/ZIP Code Phon e Number [facility] - [address] [place], [place] [address] [facility] [place] [address] [facility] [address] documented in this encounter Visit Diagnoses Diagnosis Aneurysm Abdominal Aortic Without Ruptur e (HCC) - Primary Aneurysm Thoracic Aortic Without Rupture (HCC) Malignant Neoplasm Of Supraglottic (HCC) Aneurysm Abdominal Aortic Without Ruptur e (HCC) Aneurysm Abdominal Aortic Without Ruptur e (HCC) documented in this encounter
--- OUTSIDE RECORDS SUMMARY | 2022-03-31 14:46 | XMS_ITS | Encounter Summary ---
:1955 Author Organization [facility] Address [address] [place] [address] Care Team Providers Name Role Phone Unavailable Primary Care Provider Unavailable Reason for Referral Outpatient (Routine) - Closed Specialty Diagnoses / Procedures Referred By Contact Refer red To Contact Radiation Oncology [facility]., [facility] [address] [place] [phone] Referral ID Status Reason Start Date Expiration Date Visits Requ ested Visits Authorized [id number] Closed 03/14/2020 03/14/2021 1 1 Scheduling Instructions PET/CT and appointment with Dr. Aimee gonzalez in [place] Outpatient (Routine) - Closed Specialty Diagnoses / Procedures Referred By Contact Refer red To Contact Otorhinolaryngology Summer Pérez Kasperbauer, Jan L, P.A.-C., M.S. M[facility]DShital [address] [facility] 200 [place] [phone] Referral ID Status Reason Start Date Expiration Date Visits Requ ested Visits Authorized [id number] Closed 03/14/2020 03/14/2021 1 1 Scheduling Instructions Schedule after PET/CT scan. COVID testin g needed if scope exam will be performed. Outpatient (Routine) - Closed Specialty Diagnoses / Procedures Referred By Contact Refer red To Contact Diagnoses Malignant Neoplasm Of Supraglottic (HCC) Summer Pérez P.A.-C., [place] Reg ion Procedures PET CT Skull to Thigh FDG LA PET/CT TRUNK M.S. [address] [place] [phone] Referral ID Status Reason Start Date Expiration Date Visits Requ ested Visits Authorized [id number] Closed 03/14/2020 03/14/2021 1 1 Outpatient (Routine) - Closed Specialty Diagnoses / Procedures Referred By Contact Refer red To Contact Radiation Oncology Ursula Aguirre [facility] Milo Lundberg M.D. [address] [place] [phone] Referral ID Status Reason Start Date Expiration Date Visits Requ ested Visits Authorized [id number] Closed 11/29/2019 11/28/2020 1 1 Reason for Visit Outpatient (Routine) - Closed Specialty Diagnoses / Procedures Referred By Contact Refer red To Contact Radiation Oncology Ursula Aguirre [facility] Milo Lundberg M.D. [address] [place] [phone] Referral ID Status Reason Start Date Expiration Date Visits Requ ested Visits Authorized [id number] Closed 11/29/2019 11/28/2020 1 1 Encounter Details Date Type Department Care Team Description 03/14/2020 Hospital Encounter Department of Ursula Aguirre Neoplasm Of Radiation Oncology Kimberley Bacon Supraglottic (HCC) in [place], [address] [place] [address] (Primary Dx) [place], [place] [address] [facility] [address] [place], [place] [phone] (Work) [phone] Social History Tobacco Use Types Packs/Day Years [...] or relatives? How often do you attend sabianist or Never 2018 hindu services? Do you belong to any clubs or No 02/21/2019 organizations such as sabianist groups, unions, fraternal or athletic groups, or [...] Sign Reading Time Taken Comments Blood Pressure 150/79 03/14/2020 10:38 AM CDT Pulse 86 03/14/2020 10:38 AM CDT Temperature 35.9 ??C (96.7 ??F) 03/14/2020 10:38 AM CDT Respiratory Rate - - Oxygen Saturation - - Inhaled Oxygen Concentration - - Weight 74.8 kg (164 lb 14.5 oz) 03/14/2020 10:38 AM CDT Height - - Body Mass Index 27.31 02/26/2020 10:04 AM CDT documented in this encounter Medications at Time of Discharge Medication Sig Dispensed Refills Start Date End Date aspirin 81 mg chewable Chew 81 mg every 0 tablet evening. [email or web address] Aspirin diaper,brief,adult,disposab Bag: (36 each) 36 each 1 03/16 le (DEPEND UNDERWEAR FOR WOMEN XL) misc hydroCHLOROthiazide Take 25 mg by 11 02/18/2019 (HYDRODIURIL) 25 mg tablet mouth every evening. losartan (COZAAR) 100 mg Take 100 mg by 0 020 tablet mouth every evening. fluticasone propionate Administer 1 spray 0 01/13 (FLONASE) 50 mcg/actuation into each nostril nasal spray daily as needed for allergies. acetaminophen (TYLENOL) 500 Take 500 mg by 0 10/23/2021 mg capsule mouth every 6 (six) hours as needed for pain. ibuprofen (ADVIL,MOTRIN) Three Times A Day 0 06/1510/22/2021 600 mg tablet as needed metFORMIN (GLUCOPHAGE) 500 Daily 0 8 10/16/2021 mg tablet potassium chloride Daily 0 04/21/20182021 (KLOR-CON M/KDUR) 20 mEq ER tablet documented as of this encounter Progress Notes Summer Pérez P.A.-C., M.S. - 03/14/2020 10:30 AM CDT SUBJECTIVE DIAGNOSIS 1. Malignant Neoplasm Of Supraglottic (HCC) SUPERVISED BY: Ursula Aguirre M.D. HISTORY OF PRESENT ILLNESS Ms. 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 Her oncologic history is as follows: 1. November 2018: ??The patient noted throat pain with swallowing along with intermittent ear pain,??managed with Tylenol. 2. February 2019: ??The patient experienced progressively worsening throat pain,??odynophagia, 10 pound??unintentional weight loss, hoarseness over the past few weeks,??and difficulty sleeping due to increased secretion. 3. February 08, 2019: ??Appointment with Dr. Darryl Grayson???[facility] at [facility]. ??Physical examination with flexible laryngoscopy revealed a large fungating mass overlying the posterior left arytenoid that appeared fairly extensive, extending over to the right arytenoid into the piriform sinus. ?? Vocal cords move normally. ??Patient did have some shotty adenopathy on the left side. ??Ordered CT scan and then arrange referral to [facility]. 4. February 12, 2019: ??CT scan of [...] Dr. Hung Mabry and Dr. Frank Arrieta??at [facility]. ??Physical examination revealed an exophytic mass of [...] will be referred to Radiation Oncology in [place]. 8. March 13, 2019: ??Follow-up appointment with Dr. Arrieta and Dr. Mabry who discussed treatment options including total laryngectomy versus radiation therapy. ??They were not able to offer partial laryngectomy given her lung disease and possible aspiration. ?? 9. March 15, 2019: ??Phone call with Dr. Tapia with the patient's [id number] reported that the patient had decided to undergo radiation treatment in [place]. ??She will have a follow-up abdominal MRI at [place]. ??The patient will follow-up with her primary care provider regarding the asymmetry in the right breast.? 10. March 26, 2019 through May 04, 2019: ??Definitive radiotherapy to the supraglottic tumor to a dose of 7000 cGy in 35 fractions. 11. August 02, 2019: ??PEG tube exchange. 12. August 24, 2019: PET/CT showed no evidence for recurrent or metastatic supraglottic squamous cell Carcinoma. 13. September 28, 2019: Swallow study performed. Continue to use PEG. Swallow exercises. Suggest repeat VFSS in 4-6 weeks. 14. November 02, 2019: PEG tube was dislodged, removed and replaced. It will be due again in 3 months. 15. January 31, 2020: Swallow study demonstrated moderate oropharyngeal dysphagia characterized by minimal aspiration. The patient was safe to consume soft/moist foods and thin liquids. 16. February 26, 2020: PEG tube was removed. 17. March 03, 2020: TSH 7.5 mIU/L INTERVAL HISTORY The patient was seen and examined today with Dr. Aguirre. The patient reports doing well overall. She denies fatigue. She reports eating regular foods. She continues to gain weight. She does avoid foods such as crackers and chips due to dryness. She reports that her taste is approximately 75% of baseline. She denies any pain. She denies nausea or vomiting. She denies shortness of breath or cough. She feels that her voice is continuing to get stronger. She denies any new sores, lumps, or lesions. She reports that she is performing her swallow and range of motion exercises. She denies any neck or jaw range of motion limitations. She denies lymphedema. She reports that she needs to get new dentures due to fit. She reports that the previous PEG site is healin g well. She denies dry eyes, dry skin, or constipation. REVIEW OF SYSTEMS Review of systems was negative except as documented above. PATIENT REPORTED SYMPTOM SCREEN FATIGUE (Scale: 0 = no fatigue; 10 = worst fatigue you can imagine): 0 PAIN (Scale: 0 = no pain; 10 = worst pain you can imagine): 0 OVERALL QUALITY OF LIFE (Scale: 0 = as bad as can be; 10 = as good as can be): 10 OBJECTIVE BP 150/79 (BP Location: Right arm, Patient Position: Sitting, Cuff Size: Regular) Pulse 86 Temp (!) 35.9 ??C (Temporal) Wt 74.8 kg BMI 27.31 kg/m?? PHYSICAL EXAM General: Patient is alert and oriented in no apparent distress. 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 #2?Definitive radiotherapy to the supraglottic tumor initiated on March 26, 2019; completed on??May 04, 2019 #3 ??Left facial boil, s/p incision and drainage on March 28, 2019; Bactrim initiated for 5 days onMarch 28, 2019 #4 ??PEG tube placement on April 17, 2019; replacement on August 02, 2019, replacement on 2019; removed on February 26, 2020 The patient is doing well overall following treatment. She has had her PEG tube removed and is eating a regular diet. She has been able to maintain and gain weight. Her voice is getting stronger. She is not having pain or any other new symptoms or concerns. She was encouraged to continue performing her neck and jaw range of motion exercises as well as her swallowing exercises. We reviewed her TSH result of 7.5 mIU/L. She is currently asymptomatic with regards to her thyroid. We will continue to monitor this with the next planned thyroid lab work completed in 6 months. We will order for the patient to have a PET/CT scan, follow-up with ENT, and follow-up with Dr. Aguirre in 3 months. The patient was told to contact us sooner with questions or concerns. She verbally expressed her understanding of the plan. EDUCATION Ready to learn, no apparent learning barriers were identified; learning preferences include listening. Explained diagnosis and treatment plan; patient expressed understanding of the content. I have spent 15 minutes with this patient today, greater than 50% was spent in counseling and coordination of care. Signed by: Summer Pérez P.A.-C., M.S. 03/14/2020 1:49 PM CDT [facility] [address] [place] [address] Associated attestation - Ursula Aguirre M.D. - 03/14/2020 2:28 PM CDT I saw and evaluated the patient and participated in the rao portions of the service. I reviewed the documentation of Ms. Summer Pérez PA-C, MS and agree with the findings and plan. I donned appropriate PPE. Her COVID tests were negative. After topical decongestion and anesthesia with lidocaine and afrin, the flexible laryngoscope was inserted on the right nare. The nasal cavity, nasopharynx, oropharynx, hypopharynx and larynx were normal. However, she did have some mild swelling about the larynx. No obvious mass was present. No neck adenopathy. She does have submental lymphedema. She is doing very well. We will check her sTSH in 6 months. She will due for a PET/CT at the next visit in 3 months. She will do this in [place] and see ENT. I will see her here in [place]. Her questions were answered; she was comfortable with this plan. I have spent 25 minutes with this patient today in which >50% was spent counseling and coordination of care. Ursula Aguirre M.D., 03/14/2020 documented in this encounter Plan of Treatment Upcoming Encounters Date Type Specialty Care Team Description 04/22/2022 Clinical Admitting/Central Communication Scheduling 04/26/2022 Appointment Radiology Mark Eastman M.D., M.S. [address] [place] [phone] 04/26/2022 Office Visit Otorhinolaryngology Roxanne Lanza, PIE FILLER, C.N.P. [address] [place] [phone] 04/28/2022 Appointment Radiation Oncology Ursula Aguirre M.D. [address] [place] [phone] Scheduled Referrals Name Type Priority Associated Order Schedule Diagnoses Radiation Oncology Outpatient Referral Routine On ce for 1 office visit Occurrences sta rting (clinic) 03/14/2020 unti l 03/14/2020 Return to provider Outpatient Referral Routine Ex pected: 06/12/2020 in another (Approximate), specialty Expires: 2022 Radiation Oncology Outpatient Referral Routine Ex pected: 06/16/2020 office visit (Approximate), (clinic) Expires: 2020 documented as of this encounter Results PET CT Skull to Thigh FDG (06/12/2020 11:21 AM CDT) Anatomical Region Laterality Modality Body, Nuclear Medicine PET RST LOS, N/A Posi nasreen Emission Tomography (PET), PET ARZ LOS, Nuclear Medicine PET FLA Po sitron Emission Tomography (PET) LOS, Nuclear Medicine Specimen (Source) Anatomical Collection Method Collection Time Re ceived Time Location / / Volume Laterality 06/12/2020 1:58 PM CDT Impressions 06/12/2020 2:09 PM CDT No definite evidence for recurrent or metastatic supraglottic squamous cell carcinoma. Infrarenal abdo alka aortic aneurysm at 5.3 cm. Narrative 06/12/2020 2:09 PM CDT EXAM: ??PET CT SKULL TO THIGH FDG Serum glucose at time of F-18 FDG inject ion was 110 mg/dL. Patient followed standard dietary/fasting requirements fo r this exam. RADIOPHARMACEUTICAL/MEDS: Route: intravenous fludeoxyglucose F 18 injection CARE HOME (FDG F-18),9.21 millicurie TECHNIQUE: ??F-18 FDG PET/CT scan was pe rformed from the orbits to the proximal thighs including dedicated head and neck views with CT fusion imaging for attenuation correction and anatomic core gistration only, with imaging beginning at approximately 60 minutes after radiot racer injection. ?? COMPARISON: ??Prior PET/CT dated 020. 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 Assess for metastatic di sease. Subsequent treatment strategy. FINDINGS: ??Again there is physiologic l aryngeal uptake. No FDG avid head and neck lymphadenopathy. Scattered physiolo gic muscular uptake in the neck. No distant metastatic disease. Stable small 3-5 mm pulmonary nodules wi thout FDG activity. Reactive uptake about the hips and shoulders. No focal F DG avid bone lesions. No abnormal uptake in the liver. Stable minimally FDG avid bilateral adrenal adenomas. Incidental CT findings: Interval removal of the G-tube. Emphysematous changes in the lungs. Vascular and coronary artery calcifications. Stable 5.3 cm infrarenal abdominal aortic aneurysm. Colonic diver ticula. Right renal cyst. Procedure Note Alan Champagne M.D. - 06/12/2020Format ting of this note might be different from the original. EXAM: PET CT SKULL TO THIGH FDG Serum glucose at time of F-18 FDG inject ion was 110 mg/dL. Patient followed standard dietary/fasting requirements fo r this exam. RADIOPHARMACEUTICAL/MEDS: Route: intravenous fludeoxyglucose F 18 injection CARE HOME (FDG F-18),9.21 millicurie TECHNIQUE: F-18 FDG PET/CT scan was perf ormed from the orbits to the proximal thighs including dedicated head and neck views with CT fusion imaging for attenuation correction and anatomic core gistration only, with imaging beginning at approximately 60 minutes after radiot racer injection. COMPARISON: Prior PET/CT dated 0. INDICATION: Left supraglottic squamous c ell carcinoma of the larynx treated with radiation. Assess for metastatic di sease. Subsequent treatment strategy. FINDINGS: Again there is physiologic lar yngeal uptake. No FDG avid head and neck lymphadenopathy. Scattered physiolo gic muscular uptake in the neck. No distant metastatic disease. Stable small 3-5 mm pulmonary nodules wi thout FDG activity. Reactive uptake about the hips and shoulders. No focal F DG avid bone lesions. No abnormal uptake in the liver. Stable minimally FDG avid bilateral adrenal adenomas. Incidental CT findings: Interval removal of the G-tube. Emphysematous changes in the lungs. Vascular and coronary artery calcifications. Stable 5.3 cm infrarenal abdominal aortic aneurysm. Colonic diver ticula. Right renal cyst. IMPRESSION: No definite evidence for recurrent or me tastatic supraglottic squamous cell carcinoma. Infrarenal abdo alka aortic aneurysm at 5.3 cm. Summer Pérez P.A.-C., M.S. IMG NM PROCEDURES documented in this encounter Visit Diagnoses Diagnosis Malignant Neoplasm Of Supraglottic (HCC) - Primary Malignant Neoplasm Of Supraglottic (HCC) documented in this encounter
--- OUTSIDE RECORDS SUMMARY | 2022-03-31 14:46 | XMS_ITS | Encounter Summary ---
:1955 Author Organization [facility] Address [address] [place] [address] Care Team Providers Name Role Phone Unavailable Primary Care Provider Unavailable Encounter Details Date Type Department Care Team Description 03/14/2020 Ancillary Procedure Department of Oncology Social History Tobacco Use Types Packs/Day Years [...] do you attend christianity or Never 2018 hoahaoism services? Do you [...] minutes do you engage in exercise at is 0 min 02/21/2019 level? Stress Answer [...] Appointment Radiology Mark Eastman M.D., M.S. 200 [place] [phone] 04/26/2022 Office Visit Otorhinolaryngology Roxanne Lanza APRN, C.N.P. [address] [place] [phone] 04/28/2022 Appointment Radiation Oncology Ursula Aguirre M.D. [address] [place] [phone] documented as of this encounter Procedures Procedure Name Priority Date/Time Associated Diagnosis Comme nts ONCOLOGY IMAGE EXAM Routine 03/14/2020 11:30 AM R esults for this CDT procedure are i n the results section. documented in this encounter Results Video-Oral Cavity-Oncology Image Exam (03/14/2020 11:30 AM CDT) Specimen (Source) Anatomical Collection Method Collection Time Re ceived Time Location / / Volume Laterality 03/14/2020 11:30 AM CDT Narrative [facility] - 03/14/2020 12:56 PM CDT This order has been created [...]
--- OUTSIDE RECORDS SUMMARY | 2022-03-31 14:46 | XMS_ITS | Encounter Summary ---
:1955 Author Organization [facility] Address [address] [place] [address] Care Team Providers Name Role Phone Unavailable Primary Care Provider Unavailable Reason for Referral Outpatient (Routine) - Closed Specialty Diagnoses / Procedures Referred By Contact Refer red To Contact Diagnoses Malignant Neoplasm Of Supraglottic (HCC) Summer Pérez P.A.-C.[facility] Reg ion Procedures PET CT Skull to Thigh FDG NV PET/CT TRUNK M.S. 200 [place] [phone] Referral ID Status Reason Start Date Expiration Date Visits Requ ested Visits Authorized [id number] Closed 03/14/2020 03/14/2021 1 1 Reason for Visit Outpatient (Routine) - Closed Specialty Diagnoses / Procedures Referred By Contact Refer red To Contact Diagnoses Malignant Neoplasm Of Supraglottic (HCC) Summer Pérez P.A.-C.[facility] Reg ion Procedures PET CT Skull to Thigh FDG NV PET/CT TRUNK M.S. 200 [place] [phone] Referral ID Status Reason Start Date Expiration Date Visits Requ ested Visits Authorized [id number] Closed 03/14/2020 03/14/2021 1 1 Encounter Details Date Type Department Care Team Description 06/12/2020 Hospital Encounter Department of Summer Pérez Maligna nt Neoplasm Of Radiology, Malcom Torres M.S . Supraglottic (HCC) Building, in [address] [place] [address] [place] [phone] [place], [place] [phone] (Work) [phone] Social History Tobacco Use Types Packs/Day Years [...] do you attend anabaptism or Never 2018 episcopal services? Do you belong to any clubs [...] Aspirin diaper,brief,adult,disposab Bag: (36 each) 36 each 03/16 [...] Radiology Mark Eastman M.D., M.S. [address] [place] [phone] 04/26/2022 Office Visit Otorhinolaryngology Roxanne Lanza APRN, C.N.P. [address] [place] [phone] 04/28/2022 Appointment Radiation Oncology Ursula Aguirre M.D. [address] [place] [phone] documented as of this encounter Procedures Procedure Name Priority Date/Time Associated Comments Diagnosis PET CT SKULL TO RAD - Routine 06/12/2020 11:21 Malignant Neoplasm R esults for this THIGH (most inpatients AM CDT Of Supraglottic procedur e are in and all (HCC) the results outpatients) section. documented in this encounter Results PET CT Skull to [...] RADIOPHARMACEUTICAL/MEDS: Route: intravenous fludeoxyglucose F 18 injection DETENTION (FDG F-18),9.21 millicurie TECHNIQUE: ??F-18 FDG PET/CT [...] RADIOPHARMACEUTICAL/MEDS: Route: intravenous fludeoxyglucose F 18 injection DETENTION (FDG F-18),9.21 millicurie TECHNIQUE: F-18 FDG PET/CT [...] aortic aneurysm at 5.3 cm. Summer Pérez P.A.-C. M.S. IMG NM PROCEDURES documented in this encounter Visit Diagnoses Diagnosis Malignant Neoplasm Of Supraglottic (HCC) documented in this encounter Administered Medications Inactive Administered Medications - up to 3 most recent administrations Medication Order MAR Action Action Date Dose Rate Site fludeoxyglucose F 18 Given 06/12/2020 9:44 AM 9.21 millicuries injection DETENTION (FDG F-18) CDT 9.21 millicurie, intravenous, Once, On Meredith 06/12/20 at 1000, For 1 dose documented in this encounter
--- OUTSIDE RECORDS SUMMARY | 2022-03-31 14:46 | XMS_ITS | Encounter Summary ---
:1955 Author Organization [facility] Address [address] [place] [address] Care Team Providers Name Role Phone Unavailable Primary Care Provider Unavailable Reason for Referral MRI/CAT/PET Scan (Routine) - Closed Specialty Diagnoses / Procedures Referred By Contact Refer red To Contact Radiology Diagnoses Aneurysm Thoracic Aortic Without Rupture (HCC) Ursula Aguirre M.D. [facility] Procedures CT Abdomen Pelvis Angiogram with IV Contrast [address] [place] [address] Referral ID Status Reason Start Date Expiration Date Visits Requ ested Visits Authorized [id number] Closed 06/26/2020 09/15/2021 1 1 PROPELLED HOT MIX ROLLER OPERATOR Outpatient (Routine) - Closed Specialty Diagnoses / Procedures Referred By Contact Refer red To Contact Vascular Medicine Diagnoses Aneurysm Thoracic Aortic Without Rupture (HCC) Ursula Aguirre [facility] [address] [place] [address] Referral ID Status Reason Start Date Expiration Date Visits Requ ested Visits Authorized [id number] Closed 06/26/2020 06/26/2021 1 1 Scheduling Instructions patient previously seen by Kristi 2019 PROPELLED HOT MIX ROLLER OPERATOR Outpatient (Routine) - Closed Specialty Diagnoses / Procedures Referred By Contact Refer red To Contact Radiation Oncology Summer Pérez P.A.-C., [facility] M[facility] [address] [place] [phone] Referral ID Status Reason Start Date Expiration Date Visits Requ ested Visits Authorized [id number] Closed 03/14/2020 03/14/2021 1 1 Scheduling Instructions PET/CT and appointment with Dr. Aimee gonzalez in [place] PROPELLED HOT MIX ROLLER OPERATOR Reason for Visit Outpatient (Routine) - Closed Specialty Diagnoses / Procedures Referred By Contact Refer red To Contact Radiation Oncology Summer Pérez P.A.-C., [facility] M.S. [address] [place] [address] Referral ID Status Reason Start Date Expiration Date Visits Requ ested Visits Authorized [id number] Closed 03/14/2020 03/14/2021 1 1 Encounter Details Date Type Department Care Team Description 06/26/2020 Hospital Encounter Department of Ursula Aguirre [facility] Thoracic Radiation Oncology Kimberley Bacon Aortic Without in [place], [facility] 1st [facility] Rupture (HCC) [place], [place] (Primary Dx) [address] [facility] [address] [place], [place] [phone] [address] (Work) [phone] Social History Tobacco Use Types Packs/Day Years [...] do you attend anabaptism or Never 2018 congregation services? Do you belong to any clubs [...] documented as of this encounter Progress Notes Ursula Aguirre M.D. - 06/26/2020 3:00 PM CST RADIATION ONCOLOGY PHONE FOLLOW-UP NOTE REQUESTING PROVIDER Established patient DIAGNOSIS 1. 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 2.?Definitive radiotherapy to the supraglottic tumor initiated on March 26, 2019; completed on??May 04, 2019 CHIEF COMPLAINT/REASON FOR VISIT Obdulia Narayan??is a??65-year-old??female??with supraglottic squamous cell carcinoma who receiveddefinitive radiation and chemotherapy. She is having a phone follow-up for her 1 year focused follow-up. She was seen and examined in [place] in late May. ?? Her??oncologic history is as follows: 1. November 2018: ??The patient noted throat pain with swallowing along with intermittent ear pain,??managed with Tylenol. 2. February 2019: ??The patient experienced progressively worsening throat pain,??odynophagia, 10 pound??unintentional weight loss, hoarseness over the past few weeks,??and difficulty sleeping due to increased secretion. 3. February 08, 2019: ??Appointment with Dr. Darryl Grayson???[facility]. ??Physical examination with flexible laryngoscopy revealed a large fungating mass overlying the posterior left arytenoid that appeared fairly extensive, extending over to the right arytenoid into the piriform sinus. ?? Vocal cords move normally. ??Patient did have some shotty adenopathy on the left side. ??Ordered CT scan and then arrange referral to [facility]. 4. February 12, 2019: ??CT scan of [...] Dr. Hung Mabry and Dr. Frank Arrieta??at [facility]. ??Physical examination revealed an exophytic mass of [...] will be referred to Radiation Oncology in [place]. 8. March 13, 2019: ??Follow-up appointment with Dr. Arrieta and Dr. Mabry who discussed treatment options including total laryngectomy versus radiation therapy. ??They were not able to offer partial laryngectomy given her lung disease and possible aspiration. ?? 9. March 15, 2019: ??Phone call with Dr. Tapia with the patient's [id number] reported that the patient had decided to undergo radiation treatment in [place]. ??She will have a follow-up abdominal MRI at [place]. ??The patient will follow-up with her primary [...] 17. March 03, 2020: TSH 7.5 mIU/L 18. June 12, 2020: PET/CT showed no FDG avid head and neck lymphadenopathy. Scattered physiologicmuscular uptake in the neck. No distant metastatic disease. She has a stable 5.3cm infrarenal aorticaneurysm. Her scope with Ms. Lanza went well. INTERVAL HISTORY: Since I last saw Obdulia Narayan she reports that she is doing fairly well. She states that she does develop a sore throat if she coughs a lot. She does continue to have a dry mouththat she manages with lots of water and a bed side humidifier. She has notice no new lumps or masses. She has no abdominal pain. The allergies, medications, PMH/PSH, oncologic history, family history, social history, review of systems and vital signs were reviewed and updated as appropriate. OBJECTIVE There were no vitals taken for this visit. General: Obdulia Narayan sounded well on the phone. DIAGNOSTICS: I have reviewed the available imaging, operative and pathology reports as described above and reviewed in the EMR. 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 #2?Definitive radiotherapy to the supraglottic tumor initiated on March 26, 2019; completed on??May 04, 2019 Obdulia Narayan and I visited on the phone. She is doing fairly well with no new complaints or concerns. She had a PET/CT and was examined at the end of the month in May. We will see Obdulia Narayan infollow-up visit in 3 months. Obdulia Narayan knows to contact us at any point should any questions or concerns arise. They asked about getting a follow-up with Dr. Berry to address the infra-renal aneurysm. I will help facilitate a return visit for further evaluation. She is not having symptoms. EDUCATION Ready to learn, no apparent learning barriers were identified; learning preferences include listening. Explained diagnosis and treatment plan; patient expressed understanding of the content. 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 #2?Definitive radiotherapy to the supraglottic tumor initiated on March 26, 2019; completed on??May 04, 2019 I have spent 10 minutes with this patient today in which greater than 50% was spent counseling and coordination of care. Signed by: Ursula Aguirre M.D. 06/26/2020 4:39 PM SELF PROPELLED HOT MIX ROLLER OPERATOR Radiation Oncology [facility] [address] [place] [address] PROPELLED HOT MIX ROLLER OPERATOR documented in this encounter Plan of Treatment Upcoming Encounters Date Type Specialty Care Team Description 04/22/2022 Clinical Admitting/Central Communication Scheduling 04/26/2022 Appointment Radiology Mark Eastman M.D., M.S. [address] [place] [phone] 04/26/2022 Office Visit Otorhinolaryngology Roxanne Lanza APRN, C.N.P. [address] [place] [phone] 04/28/2022 Appointment Radiation Oncology Ursula Aguirre M.D. [address] [place] [phone] Scheduled Referrals Name Type Priority Associated Order Schedule Diagnoses Radiation Oncology Outpatient Referral Routine On ce for 1 office visit Occurrences sta rting (clinic) 06/26/2020 unti l 06/26/2020 Vascular Medicine Outpatient Referral Routine Aneurysm Thoraci c Expected: 06/26/2020 - Aneurysm consult Aortic Without (Approx imate), (clinic) Rupture (HCC) Expires: 06/26 documented as of this encounter Results CT Abdomen Pelvis Angiogram with IV Contrast (09/15/2021 11:44 AM SELF PROPELLED HOT MIX ROLLER OPERATOR) Anatomical Region Laterality Modality Abdomen, Pelvis, Cardiovascular RST N/A Comp uted Tomography, Computed LOS, Abdominal ARZ LOS, Vascular Tomogra phy Interventional ARZ LOS, Abdominal FLA LOS, Vascular Interventional FLA LOS Specimen (Source) Anatomical Collection Method Collection Time Re ceived Time Location / / Volume Laterality 09/15/2021 11:25 AM SELF PROPELLED HOT MIX ROLLER OPERATOR Impressions 09/15/2021 1:06 PM SELF PROPELLED HOT MIX ROLLER OPERATOR Enlarging infrarenal abdominal aortic aneurysm measuring 56 x 57 mm in maximum orthogonal dimension (previou sly 49 x 51 mm in 03/20/2019). Narrative 09/15/2021 1:06 PM SELF PROPELLED HOT MIX ROLLER OPERATOR EXAM: ??CT ABDOMEN PELVIS ANGIOGRAM WITH IV CONTRAST Including 3D image post-processing. COMPARISON: CTA abdomen pelvis dated 01/2019. FINDINGS: VASCULAR FINDINGS: Severe aortobiiliac c alcified and non-calcified atherosclerotic changes. AORTA: Diffuse atherosclerotic disease w ith multifocal ulcerated plaques. Infrarenal abdominal aorta aneurysm parag uring 56 x 57 mm in maximum orthogonal dimension (previously 49 x 51 mm). Incre ased mural thrombus within the aneurysmal segment. VISCERAL ARTERIES: Celiac: Widely patent. SMA: Widely patent. CORBY: Patent with least moderate ostium s tenosis. RENAL ARTERIES: Single bilateral renal a rteries are widely patent. ILIAC ARTERIES: Severe atherosclerotic c hanges. Widely patent right and left common and external iliac arteries. Mode rate stenosis at the origin of the right internal iliac artery. The left internal iliac artery is widely patent. Common femoral artery, proximal superfic ial and profunda femoral artery: Mild stenosis in the right common femoral art mayela and minimal stenosis in the left common femoral artery. ADDITIONAL FINDINGS: Lower chest: Emphysema. Paraseptal bulla in the left lower lobe. Very small hiatal hernia. Abdomen and pelvis: Liver, gallbladder, pancreas and spleen are unremarkable. Stable 3 cm right adrenal gland nodule. 2.8 cm left adrenal nodule, previously 3.4 cm. Exophytic posteroinferior right renal cyst, unchanged (series 5, image 113). Urinary bladder is mildly distende d and normal in appearance. Scattered colonic diverticuli. Normal appendix. No rmal caliber of the small bowel and colon. No abdominopelvic lymphadenopathy or free fluid. ?? Multilevel disc degenerative disease, se atilio at L3-L4. Procedure Note Sky Ahumada M.D. - 09/15/2021 EXAM: CT ABDOMEN PELVIS ANGIOGRAM WITH I V CONTRAST Including 3D image post-processing. COMPARISON: CTA abdomen pelvis dated 01/2019. FINDINGS: VASCULAR FINDINGS: Severe aortobiiliac c alcified and non-calcified atherosclerotic changes. AORTA: Diffuse atherosclerotic disease w ith multifocal ulcerated plaques. Infrarenal abdominal aorta aneurysm parag uring 56 x 57 mm in maximum orthogonal dimension (previously 49 x 51 mm). Incre ased mural thrombus within the aneurysmal segment. VISCERAL ARTERIES: Celiac: Widely patent. SMA: Widely patent. CORBY: Patent with least moderate ostium s tenosis. RENAL ARTERIES: Single bilateral renal a rteries are widely patent. ILIAC ARTERIES: Severe atherosclerotic c hanges. Widely patent right and left common and external iliac arteries. Mode rate stenosis at the origin of the right internal iliac artery. The left internal iliac artery is widely patent. Common femoral artery, proximal superfic ial and profunda femoral artery: Mild stenosis in the right common femoral art mayela and minimal stenosis in the left common femoral artery. ADDITIONAL FINDINGS: Lower chest: Emphysema. Paraseptal bulla in the left lower lobe. Very small hiatal hernia. Abdomen and pelvis: Liver, gallbladder, pancreas and spleen are unremarkable. Stable 3 cm right adrenal gland nodule. 2.8 cm left adrenal nodule, previously 3.4 cm. Exophytic posteroinferior right renal cyst, unchanged (series 5, image 113). Urinary bladder is mildly distende d and normal in appearance. Scattered colonic diverticuli. Normal appendix. No rmal caliber of the small bowel and colon. No abdominopelvic lymphadenopathy or free fluid. Multilevel disc degenerative disease, se atilio at L3-L4. IMPRESSION: Enlarging infrarenal abdominal aortic an eurysm measuring 56 x 57 mm in maximum orthogonal dimension (previou sly 49 x 51 mm in 03/20/2019). Ursula OCAMPO CT PROCEDURES (ABNORMAL) Creatinine with Estimated GFR (09/15/2021 9:46 AM SELF PROPELLED HOT MIX ROLLER OPERATOR) P athologist Signature Creatinine, S 1.20 (H) 0.59 - 09/15/2021 DTL 1.04 mg/dL 10:48 AM SELF PROPELLED HOT MIX ROLLER OPERATOR eGFR-Non 48 (L) >=60 09/15/2021 DTL Black/ mL/min/BSA 10:48 AM SELF PROPELLED HOT MIX ROLLER OPERATOR Z[place]ian Comment: ----ADDITIONAL INFORMATION---- Estimated GFR calculated using the 2009 CKD_EPI creatinine equation. eGFR-Black/ 55 (L) >=60 mL/min/BSA 2021 10:48 AM SELF PROPELLED HOT MIX ROLLER OPERATOR DTL Comment: ----ADDITIONAL INFORMATION---- Estimated GFR calculated using the 2009 CKD_EPI creatinine equation. Specimen Anatomical Collection Method Collection Time Receive d Time (Source) Location / / Volume Laterality Blood (Blood, 09/15/2021 9:46 AM 09/15/19 22 Venous) SELF PROPELLED HOT MIX ROLLER OPERATOR 10:30 AM SELF PROPELLED HOT MIX ROLLER OPERATOR Ursula Aguirre M.D. LAB BLOOD ADD-ON Performing Organization Address City/State/ZIP Code Phon e Number [facility] - [address] [place], [place] [address] [facility] [place] [address] Laboratories-[facility] [address] documented in this encounter Visit Diagnoses Diagnosis Aneurysm Thoracic Aortic Without Rupture (HCC) - Primary Aneurysm Thoracic Aortic Without Rupture (HCC) documented in this encounter
--- OUTSIDE RECORDS SUMMARY | 2022-03-31 14:46 | XMS_ITS | Encounter Summary ---
:1955 Author Organization [facility] Address [address] [place] [address] Care Team Providers Name Role Phone Unavailable Primary Care Provider Unavailable Reason for Referral MRI/CAT/PET Scan (Routine) - Closed Specialty Diagnoses / Procedures Referred By Contact Refer red To Contact Radiology Diagnoses Aneurysm Thoracic Aortic Without Rupture (HCC) Ursula Aguirre M.D. [facility] Procedures CT Abdomen Pelvis Angiogram with IV Contrast [address] [place] [address] Referral ID Status Reason Start Date Expiration Date Visits Requ ested Visits Authorized [id number] Closed 06/26/2020 09/15/2021 1 1 SCIENTIST Reason for Visit MRI/CAT/PET Scan (Routine) - Closed Specialty Diagnoses / Procedures Referred By Contact Refer red To Contact Radiology Diagnoses Aneurysm Thoracic Aortic Without Rupture (HCC) Ursula Aguirre M.D. [facility] Procedures CT Abdomen Pelvis Angiogram with IV Contrast [address] [place], [place] [phone] Referral ID Status Reason Start Date Expiration Date Visits Requ ested Visits Authorized [id number] Closed 06/26/2020 09/15/2021 1 1 Encounter Details Date Type Department Care Team Description 09/15/2021 Hospital Encounter Department of Ursula Aguirre [facility] Thoracic Radiology, Brenda Bacon M.D. Aortic Without Building, in [address] [facility] Rupture (HCC) [facility] [address] [place], [place] (Work) [address] [phone] Social History Tobacco Use Types Packs/Day Years [...] do you attend christianity or Never 2018 oriental orthodox services? Do you belong to any [...] evening. diaper,brief,adult,disposab Bag: (36 each) 36 each 2 01/2019 le ([employer] [...] Radiology Mark Eastman M.D., M.S. [address] [place] [phone] 04/26/2022 Office Visit Otorhinolaryngology Roxanne Lanza, LABOR RELATIONS MANAGER, C.N.P. [address] [place] [phone] 04/28/2022 Appointment Radiation Oncology Ursula Aguirre M.D. [address] [place] [phone] Scheduled Orders Name Type Priority Associated Diagnoses Order S chedule Creatinine, POCT Point of Care Routine Routine la b collection Testing-Docked (next collect ion) for Device 1 Occurrences s tarting 09/15/2021 unti l 09/15/2021 documented as of this encounter Procedures Procedure Name Priority Date/Time Associated Comments Diagnosis CT ABDOMEN PELVIS RAD - Routine 09/15/2021 11:44 Aneurysm Thoracic Results for this ANGIOGRAM WITH IV (most inpatients AM QC SCIENTIST Aortic Without proc edure are in CONTRAST and all Rupture (HCC) the results outpatients) section. CREATININE, POCT, Routine 09/15/2021 10:52 Result s for this B AM QC SCIENTIST procedure are i n the results section. CREATININE, POCT, Routine 09/15/2021 10:52 Result s for this B AM QC SCIENTIST procedure are i n the results section. documented in this encounter Results CT Abdomen Pelvis Angiogram with IV Contrast (09/15/2021 11:44 AM QC SCIENTIST) Anatomical Region Laterality Modality Abdomen, Pelvis, Cardiovascular RST N/A Comp uted Tomography, Computed LOS, Abdominal ARZ LOS, Vascular Tomogra phy Interventional ARZ LOS, Abdominal FLA LOS, Vascular Interventional FLA LOS Specimen (Source) Anatomical Collection Method Collection Time Re ceived Time Location / / Volume Laterality 09/15/2021 11:25 AM QC SCIENTIST Impressions 09/15/2021 1:06 PM QC SCIENTIST Enlarging infrarenal abdominal aortic aneurysm measuring 56 x 57 mm in maximum orthogonal dimension (previou sly 49 x 51 mm in 03/20/2019). Narrative 09/15/2021 1:06 PM QC SCIENTIST EXAM: ??CT ABDOMEN PELVIS ANGIOGRAM WITH IV [...] 49 x 51 mm in 03/20/2019). Ursula Aguirre M.D. IMG CT PROCEDURES (ABNORMAL) Creatinine, POCT (09/15/2021 10:52 AM QC SCIENTIST) athologist Signature Creatinine, 1.1 (H) 0.6 - 1.0 09/15/2021 [facility] PO[facility], B mg/dL 10:56 AM QC SCIENTIST Comment: ----ADDITIONAL INFORMATION---- Performed at the Point of Care Specimen Anatomical Collection Method Collection Time Receive d Time (Source) Location / / Volume Laterality Blood 09/15/2021 10:52 09/15/2021 AM QC SCIENTIST 10:56 AM QC SCIENTIST Unknown Provider LAB POCT ORDERABLES - DEVICE Performing Organization Address City/State/ZIP Code Phon e Number POC RST RESTORATIONIST [address] [place] [address] [facility]PATIENT [facility]S [facility] [place] [address] [facility] [address] (ABNORMAL) Creatinine, POCT (09/15/2021 10:52 AM QC SCIENTIST) athologist Signature eGFR-Black/Afri 61 >=60 09/15/2021 [facility] can Hungarian, mL/min/BSA 10:56 AM QC SCIENTIST POCT Comment: ----ADDITIONAL INFORMATION---- Estimated GFR calculated using the 2009 CKD_EPI creatinine equation. eGFR Non-Black/ 53 (L) >=60 mL/min/BSA 09/15/2021 10:56 AM QC SCIENTIST PCMO Hungarian, POCT Comment: ----ADDITIONAL INFORMATION---- Estimated GFR calculated using the 2009 CKD_EPI creatinine equation. Specimen Anatomical Collection Method Collection Time Receive d Time (Source) Location / / Volume Laterality Blood 09/15/2021 10:52 09/15/2021 AM QC SCIENTIST 10:56 AM QC SCIENTIST Unknown Provider LAB POCT ORDERABLES - DEVICE Performing Organization Address City/State/ZIP Code Phon e Number POC RST RESTORATIONIST [address] [place] [address] OUTPATIENT LABS PC[facility] [place] [id number] [place] [address] documented in this encounter Visit Diagnoses Diagnosis Aneurysm Thoracic Aortic Without Rupture (HCC) documented in this encounter Administered Medications Inactive Administered Medications - up to 3 most recent administrations Medication Order MAR Action Action Date Dose Rate Site iohexoL 350 mg iodine/mL solution Given 09/15/2021 11:14 AM QC SCIENTIST 100 mL 1-200 mL (OMNIPAQUE) 1-200 mL, intravenous, Once in imaging, contrast, Starting on Tue09/15/21 at 1049, For 1 dose, Imaging Protocol Orders, Dose per Radiant Medication Guidelines sodium chloride (PF) 0.9 % injection 1-1 00 mL Given 09/15/2021 11:14 AM QC SCIENTIST 30 mL 1-100 mL, intravenous, Once, On Tue09/15/21 at 1100, For 1 dose, Imaging Protocol Orders documented in this encounter
--- OUTSIDE RECORDS SUMMARY | 2022-03-31 14:47 | XMS_ITS | Encounter Summary ---
:1955 Author Organization [facility] Address [address] [place] [phone] Care Team Providers Name Role Phone Unavailable Primary Care Provider Unavailable Reason for Referral Outpatient (Routine) - Canceled Specialty Diagnoses / Procedures Referred By Contact Refer red To Contact Nutrition Diagnoses Malignant Neoplasm Of Supraglottic (HCC) Ursula Aguirre M.D. [address] [phone] Referral ID Status Reason Start Date Expiration Date Visits V isits Requested Authorized [id number] Canceled 08/30/2019 08/29/2020 1 1 Reason for Visit Outpatient (Routine) - Canceled Specialty Diagnoses / Procedures Referred By Contact Refer red To Contact Nutrition Diagnoses Malignant Neoplasm Of Supraglottic (HCC) Ursula Aguirre M.D. [facility] Region [address] [place] [phone] Referral ID Status Reason Start Date Expiration Date Visits V isits Requested Authorized [id number] Canceled 08/30/2019 08/29/2020 1 1 Encounter Details Date Type Department Care Team Description 10/18/2019 Hospital Encounter Department of Mary Aguirre M.D. [address] [place] [phone] Dysphagia (Primary Dx); Radiation Oncology Natasha Brandon, RDN [address] [place] [phone] Malignant Neoplasm Of Supraglottic (HCC) in [place], [place] [address] [place] [address] Social History Tobacco Use Types Packs/Day Years [...] do you attend episcopal or Never 2018 mormon services? Do you [...] (HYDRODIURIL) 25 mg tablet mouth every evening. acetaminophen (TYLENOL) 500 Take 500 mg by 0 10/23/2021 mg capsule mouth every 6 (six) hours as needed for pain. ibuprofen (ADVIL,MOTRIN) Three Times A Day 0 06/1510/22/2021 600 mg tablet as needed metFORMIN (GLUCOPHAGE) 500 2 (two) times a 11 11/1311/02/2019 mg tablet day. metFORMIN (GLUCOPHAGE) 500 Daily 0 8 10/16/2021 mg tablet potassium chloride Daily 0 04/21/20182021 (KLOR-CON M/KDUR) 20 mEq ER tablet documented as of this encounter Progress Notes Natasha Brandon RDN - 10/18/2019 3:30 PM CST CHIEF COMPLAINT/REASON FOR VISIT Malignant Neoplasm Of Supraglottic (HCC) (C32.1) HISTORY OF PRESENT ILLNESS Mrs. 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 Radiotherapy to the supraglottic tumor initiated on March 26, 2019; completed April,. Met with patient and her [id number]. Patient is hard of hearing and reads lips. For phone contact Merlin (son) states, his Darlin is the one to call, . ASSESSMENT Relevant Social and Family History She lives in [place], [place] with her son Merlin and his Darlin. During the week while undergoing treatment lives in [place] with a different son. She is . She has 4 sons, 10 grand children and 2 great grandchildren. 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 She has a 40 year history of smoking 2.5 to 0.75 packs per day. She has been working to quit smoking. She does not drink alcohol. Medical Tests and Procedures/Biochemical Data Swallow evaluation on 09/28/19 Recommendations 1.??Continue using your PEG tube for your primary source of nutrition, hydration, and medications 2. Continue small amounts of soft solids (chew thoroughly before swallowing) and thin liquids as tolerated. Liquids that are slightly thick (e.g., Ensure, tomato juice, etc.) or commercially thickened may be easier to swallow. If you decide to continue drinking thin liquids, plain water is recommendedover other beverages. 3. Turn your head to the right when swallowing liquids. After swallowing, clear your throat on purpose and immediately re-swallow your saliva. 7. Repeat VFSS approximately 4-6 weeks from 09/28, or sooner should dysphagia symptoms worsen. Nutrition Focused Physical Findings Mouth/throat/esophagus: some throat soreness Nausea/vomiting: denies nausea or vomiting Bowels: Reports one episode of constipation resolved with miralax Tube Information Gastrostomy tube placed by GI 04/17/19 LEONARDO 20 Wallisian balloon gastrostomy, ENFit connector Food/Nutrient Related History She reports that she is eating some solid food such as jello, sandwiches, ramen noodles. She reportseating these foods about every 2-3 days. She is not eating by mouth consistently at this point. Reports taking in all 5 cartons of nutren 1.5 each day. She has been doing this for the last month. She reports that she has one case of formula left. She attempted to order more formula, however, Gary discontinued her current order because she had not placed an order in 3 months. She is drinking water bymouth and doing tube feeding flushes. She is unsure of the amount. She is thickening her liquids to consume by mouth. Weight History Current weight 67 kg - 3.8 kg increase since 09/20/19 Height: 167 cm BMI: 24.0 kg/m2 Usual body weight: 230# (104.5 kg) last year, per patient 03/16/19: 88.5 kg 03/28/19: 87.7 kg 04/04/19: 86.3 kg 04/11/19: 83.5 kg 04/12/19: 82.5 kg--5.8% loss from treatment start weight 04/18/19: 83.6 kg 04/26/19: 82.4 kg 05/03/19: 81.3 kg 05/24/19: 75.0 kg 06/14/19: 73.7 kg 08/03/19: 68.6 kg 08/30/19: 66.8 kg 09/20/19: 63.2 kg Estimation of Nutritional Needs using 82.5 kg (04/12/19) and 167 cm 1800 calories/day (HB basal + 20%) 85 grams protein/day (1 gram/kg) 2100 to 2500 mL fluid/day (25 to 30 mL/kg) Assessment Summary Obdulia Narayan is not able to meet her nutrition or hydration needs orally due to dysphagia/side-effects of treatment. She needs tube feedings to meet her needs for several months until able to gradually resume oral intake. A feeding gastrostomy was placed 04/17/19. Patient had her tube replaced 08/02/19. NUTRITION DIAGNOSIS Inadequate oral intake (NI-2.1) related to side-effects of treatment as evidenced by weight loss anddiet history. Unintentional weight loss related to cancer as evidenced by approximate 16.8 kg weight loss in the last year prior to treatment per patient report and 5.8% weight loss prior to tube feeding placement. Food- and nutrition-related knowledge deficit related to Cancer with radiation therapy as evidenced by need for nutrition education to maintain weight and nutrition status during treatment Nutrition Diagnosis Reassessment: Ongoing Nutrition Prescription/Recommendation Formula Type: Nutren 1.5, 5 containers/day Administration Method: Intermittent gravity/syringe Infusion Schedule: - Water Flushes: 60 mL before and after each feeding, increase if not able to take about 3 cups water orally Additional Multivitamin: not needed, formula provides 100% At goal, this will provide a total of: 1875 calories/day, 85 g protein/day and 1250 mL of fluid/day Water flushes of 60 mL before and after each feeding will provide 360 mL with infusion as above. Goal of at least 1250 mL by flushes or mouth to meet estimated fluid needs. Oral Program: as tolerated INTERVENTION Discussed her current weight gain. Recommend continuing with the 5 cartons of nutren 1.5 each day atthis time. Reviewed guidelines for discontinuing her tube feeding including weight stabilization. She will be seeing her primary doctor next week to address her depression. She has an appointment scheduled for 11/08/19 for another swallow evaluation. Plan to re-order her tube feeding formula through [employer]. Care Coordination Authorization on file to speak with DME/Infusion Company: yes DME/Infusion Company that will provide needed supplies for home: [employer] . They delivered supplies 04/18/19. Indication for Ongoing Enteral Nutrition Home Enteral Nutrition, dysphagia, suqpaglottic squamous cell carcinoma. Anticipated duration of tube feedings is 12 months. This is the sole source of nutrition. MONITORING AND EVALUATION Nutrition parameter to monitor: Weight Desired Outcome: Prevent further weight loss Patient Goal(s): 1. Nutren 1.5, 5 containers a day, schedule of - or as tolerated with 60 ml flush before andafter each feeding. 2. 9 cups total fluid by flush or mouth to meet estimated fluid needs. Follow-up Plan Follow up in 2 weeks. Time spent with patient (minutes):15 documented in this encounter Plan of Treatment Upcoming Encounters Date Type Specialty Care Team Description 04/22/2022 Clinical Admitting/Central Communication Scheduling 04/26/2022 Appointment Radiology Mark Eastman M.D., M.S. [address] [place] [phone] 04/26/2022 Office Visit Otorhinolaryngology Roxanne Lanza APRN, C.N.P. [address] [place] [phone] 04/28/2022 Appointment Radiation Oncology Ursula Aguirre M.D. [address] [place] [phone] Scheduled Referrals Name Type Priority Associated Diagnoses Order S chedule Nutrition - Outpatient Referral Routine Malignant Neoplasm On ce for 1 Medical nutrition Of Supraglottic Occurre nces therapy consult (HCC) starting 12/2019 (clinic) until 0 documented as of this encounter Visit Diagnoses Diagnosis Dysphagia - Primary Malignant Neoplasm Of Supraglottic (HCC) documented in this encounter
--- OUTSIDE RECORDS SUMMARY | 2022-03-31 14:47 | XMS_ITS | Encounter Summary ---
:1955 Author Organization [facility] Address [address] [place] [id number] Care Team Providers Name Role Phone Unavailable Primary Care Provider Unavailable Reason for Visit Speech Pathology (Routine) - Closed Specialty Diagnoses / Procedures Referred By Contact Refer red To Contact Diagnoses Malignant Neoplasm Of Supraglottic (HCC) Summer Pérez P.A.-C., [facility] FASTENER TECHNOLOGIST Dysphagia evaluate and treat M.S. [address] [place] [phone] Referral ID Status Reason Start Date Expiration Date Visits Requ ested Visits Authorized [id number] Closed 10/15/2019 10/14/2020 1 1 Encounter Details Date Type Department Care Team Description 01/31/2020 Comprehensive Visit Department of Summer Pérez P.A.-C., M.S. [address] [place] [phone] Dysphagia Oropharyngeal Phase (Primary D x); Neurology in Parvin Mijares M.S., [facility]-FASTENER TECHNOLOGIST [address] [place] [phone] Malignant Neoplasm Of Supraglottic (HCC) [place], [place] [address] [place] [phone] Social History Tobacco Use Types Packs/Day Years [...] or relatives? How often do you attend yazidism or Never 2018 pentecostalism services? Do you belong to any clubs or No 02/21/2019 organizations such as yazidism groups, unions, fraternal or athletic groups, or [...] on file documented as of this encounter Consult Notes Parvin Mijares M.S., CCC-FASTENER TECHNOLOGIST - 01/31/2020 2:45 PM CDT Speech Pathology Dysphagia Videofluoroscopic Swallow Study (VFSS) Outpatient Session Type: Evaluation Length of session: 90 minutes SUBJECTIVE Referred By: Summer Pérez P.A.-C., M.S. Reason for Consult: Dysphagia History: Ms. Narayan is a 64-year-old female referred by Radiation Oncology for a videofluoroscopic evaluation. She has history significant for, but not limited to, supraglottic laryngeal squamous cell carcinoma status post definitive radiation 03/26/2019 through 05/04/2019. A PEG tube was placed 04/17/2019. Mu ltiple videofluoroscopic evaluations have been completed, most recent 09/28/2019. That evaluation revealed moderate to severe oropharyngeal dysphagia with recommendation to continue utilizing PEG tube for primary nutrition, hydration, and medication but taking consistent oral intake with soft foods and thin liquids. Please see clinical notes for complete history and details. Ms. Narayan attends today's evaluation session with her [id number]. She is very pleased to report that swallowing has been going very well. She has not utilized her PEG tube since January 11. She iseating soft foods, consuming thin liquids, and taking her pills whole with liquid. She reports that her weight is slowly increasing. She does not comment on overt coughing or choking with any food or liquid textures. She continues to complete swallowing exercises daily. She denies any concern of pneumonia or respiratory infection. OBJECTIVE Most Recent Value Description of Procedure Previous MBS/VFSS Yes Planes Tested Lateral, AP Type Assessment MBS IMP Statement of Consent Yes, Discussed goals, risks, alternatives, and the necessity of other members of the procedureal team participating in the procedure with the patient. Thin Lip Closure 0: No labial escape Tongue Control 0: Cohesive bolus between tongue to palatal seal Bolus Transport/Lingual Motion 0: Brisk tongue motion Oral Residue 0: Complete oral clearance Onset of Pharyngeal Swallow 1: Bolus head in valleculae Soft Palate Elevation 0: No bolus between soft palate (SP)/pharyngeal wall (PW) Laryngeal Elevation 1: Partial superior movement of thyroid cartilage/partial approximation of arytenoids to epiglottic petiole Anterior Hyoid Excursion 0: Complete anterior movement Epiglottic Movement 2: No inversion Laryngeal Vestibular Closure 1: Incomplete, narrow column air/contrast in laryngeal vestibule Pharyngeal Stripping Wave 1: Present - diminished Pharyngoesophageal Segment Opening 0: Complete distension and complete duration, no obstruction of flow Tongue Base Retraction 1: Trace column of contrast or air between TB and PW Pharyngeal Residue 1: Trace residue within or on pharyngeal structures Pharyngeal Residue Location Diffuse (>3 areas) Esophageal Clearance 0: Complete clearance, esophageal coating Penetration/Aspiration Scale 6: Material enters the airway, passes below the vocal folds, and is ejected into the larynx or out of the airway. Penetration Yes, during the swallow Aspiration No, Yes, after the swallow Snook Lip Closure 0: No labial escape Tongue Control 0: Cohesive bolus between tongue to palatal seal Bolus Transport/Lingual Motion 0: Brisk tongue motion Oral Residue 0: Complete oral clearance Onset of Pharyngeal Swallow 1: Bolus head in valleculae Soft Palate Elevation 0: No bolus between soft palate (SP)/pharyngeal wall (PW) Laryngeal Elevation 1: Partial superior movement of thyroid cartilage/partial approximation of arytenoids to epiglottic petiole Anterior Hyoid Excursion 0: Complete anterior movement Epiglottic Movement 2: No inversion Laryngeal Vestibular Closure 1: Incomplete, narrow column air/contrast in laryngeal vestibule Pharyngeal Stripping Wave 1: Present - diminished Pharyngoesophageal Segment Opening 0: Complete distension and complete duration, no obstruction of flow Tongue Base Retraction 1: Trace column of contrast or air between TB and PW Pharyngeal Residue 1: Trace residue within or on pharyngeal structures Pharyngeal Residue Location Diffuse (>3 areas) Penetration/Aspiration Scale 3: Material enters the airway, remains above the vocal folds, and is not ejected from the airway. Penetration Yes, during the swallow Aspiration No Puree Tongue Control 0: Cohesive bolus between tongue to palatal seal Bolus Transport/Lingual Motion 0: Brisk tongue motion Oral Residue 0: Complete oral clearance Onset of Pharyngeal Swallow 0: Bolus head at posterior angle of ramus (first hyoid excursion) Soft Palate Elevation 0: No bolus between soft palate (SP)/pharyngeal wall (PW) Laryngeal Elevation 1: Partial superior movement of thyroid cartilage/partial approximation of arytenoids to epiglottic petiole Anterior Hyoid Excursion 0: Complete anterior movement Epiglottic Movement 2: No inversion Laryngeal Vestibular Closure 0: Complete, no air/contrast in laryngeal vestibule Pharyngeal Stripping Wave 1: Present - diminished Pharyngoesophageal Segment Opening 0: Complete distension and complete duration, no obstruction of flow Tongue Base Retraction 1: Trace column of contrast or air between TB and PW Pharyngeal Residue 1: Trace residue within or on pharyngeal structures Pharyngeal Residue Location Diffuse (>3 areas) Esophageal Clearance 0: Complete clearance, esophageal coating Penetration/Aspiration Scale 1: Material does not enter airway Penetration No Aspiration No MBSImP Scores Oral Impairment Score 1 Pharyngeal Impairment Score 5 Esophageal Impairment Score 0 Assessment During the videofluoroscopic swallow study, lateral and AP views were recorded as the patient swallowed thin barium, nectar-thick barium, and applesauce. Solid consistency was deferred due to dry texture. Oral control of all consistencies was good. The pharyngeal swallow response was delayed to the vallecula. Range of tongue base retraction and hyolaryngeal excursion were reduced. There was no epiglottic inversion. There was penetration of thin liquids during the swallow with small amount the contrast dipping below the vocal fold after the swallow. A cued cough was effective in expelling material from the airway, but liquid remained in the laryngeal vestibule. There was penetration above the levelof the vocal folds with nectar thickened. Each bolus resulted in trace pharyngeal retention throughout the pharynx. AP view revealed symmetrical flow through the pharynx. Relaxation through the cricopharyngeal segment was good. Overall, the patient demonstrates moderate oropharyngeal dysphagia characterized by minimal aspiration after the swallow. A cued throat clear is effective in reducing penetrated material. The images oftoday's swallow study were reviewed in detail with the patient and her [id number]. With swallowprecautions, it is anticipated she will resume safe and adequate oral intake at this time. She is recommended to utilize a throat clear and reswallow throughout the meal. Soft/moist foods will be easiest for her to consume. Patient was encouraged to continue swallowing exercises daily as she has been.She is advised to contact primary physician should symptoms of dysphagia worsen. Contact Monitoring: Clinician was wearing the following PPE for the duration of today's session(s): surgical mask and eye protection Functional Oral Intake Scale: Level 5 - Total oral diet with multiple consistencies, but requiring special preparation of consistencies Diagnosis: Moderate oropharyngeal dysphagia following treatment for laryngeal carcinoma Plan Recommendations: 1. Patient is safe to consume soft/moist foods and thin liquids. 2. Patient is recommended to take small sips, small bites, and clear her throat throughout the meal. 3. It is recommended she continue swallowing exercises daily. 4. Follow-up with speech pathology should symptoms of dysphagia change or worsen. documented in this encounter Plan of Treatment Upcoming Encounters Date Type Specialty Care Team Description 04/22/2022 Clinical Admitting/Central Communication Scheduling 04/26/2022 Appointment Radiology Mark Eastman M.D., M.S. [address] [place] [phone] 04/26/2022 Office Visit Otorhinolaryngology Roxanne Lanza APRN, C.N.P. [address] [place] [phone] 04/28/2022 Appointment Radiation Oncology Ursula Aguirre M.D. [address] [place] [phone] documented as of this encounter Visit Diagnoses Diagnosis Dysphagia Oropharyngeal Phase - Primary Malignant Neoplasm Of Supraglottic (HCC) documented in this encounter
--- OUTSIDE RECORDS SUMMARY | 2022-03-31 14:47 | XMS_ITS | Encounter Summary ---
:1955 Author Organization [facility] Address [address] [place] [address] Care Team Providers Name Role Phone Unavailable Primary Care Provider Unavailable Reason for Visit Auth/Cert Specialty Diagnoses / Procedures Referred By Contact Refer red To Contact Diagnoses Home Enteral Nutrition Procedures EGD ? PERCUTANEOUS ENDOSCOPIC GASTROSTOMY/JEJUNOSTOMY Referral ID Status Reason Start Date Expiration Date Visits Requ ested Visits Authorized [id number] 1 1 Encounter Details Date Type Department Care Team Description 11/02/2019 Hospital Encounter Department of Rajiv Adler, Radiology, Ramakrishna Chu [facility], in [address] [place] [phone] [place], [place] [phone] (Wo rk) [phone] Social History Tobacco Use Types Packs/Day Years [...] do you attend hindu or Never 2018 adventist services? Do you belong to any clubs or No 02/21/2019 organizations such as hindu groups, unions, fraternal or athletic groups, or [...] Appointment Radiology Mark Eastman M.D., M.S. [address] [place] [phone] 04/26/2022 Office Visit Otorhinolaryngology Roxanne Lanza, RICE FARMWORKER, C.N.P. [address] [place] [phone] 04/28/2022 Appointment Radiation Oncology Ursula Aguirre M.D. [address] [place] [phone] documented as of this encounter Procedures Procedure Name Priority Date/Time Associated Diagnosis Comme nts FL FLUORO LESS THAN Routine 11/02/2019 1:58 PM Home Enteral Re sults for this 1 HOUR CDT Nutrition procedure are i n the results section. documented in this encounter Results FL Fluoro Less Than 1 Hour (11/02/2019 1:58 PM CDT) Specimen (Source) Anatomical Location Collection Method / Collectio n Time Received Time / Laterality Volume Narrative ERCP LOS RST - 11/02/2019 2:00 PM CDT This exam does not require a radiologist review or interpretation. Please refer to the patient's medical record on this date for clinical details. Rajiv OCAMPO FLUOROSCOPY PROCEDURES Performing Organization Address City/State/ZIP Code Phon e Number ERCP LOS RST documented in this encounter Visit Diagnoses Not on filedocumented in this encounter
--- OUTSIDE RECORDS SUMMARY | 2022-03-31 14:47 | XMS_ITS | Encounter Summary ---
:1955 Author Organization [facility] Address [address] [place] [address] Care Team Providers Name Role Phone Unavailable Primary Care Provider Unavailable Reason for Referral Outpatient (Routine) - Canceled Specialty Diagnoses / Procedures Referred By Contact Refer red To Contact Nutrition Diagnoses Malignant Neoplasm Of Supraglottic (HCC) Ursula Aguirre M.D. [address] [phone] Referral ID Status Reason Start Date Expiration Date Visits V isits Requested Authorized [id number] Canceled 08/30/2019 08/29/2020 1 1 Reason for Visit Outpatient (Routine) - Canceled Specialty Diagnoses / Procedures Referred By Contact Refer red To Contact Nutrition Diagnoses Malignant Neoplasm Of Supraglottic (HCC) Ursula Aguirre M.D. [facility] [address] [place] [phone] Referral ID Status Reason Start Date Expiration Date Visits V isits Requested Authorized [id number] Canceled 08/30/2019 08/29/2020 1 1 Encounter Details Date Type Department Care Team Description 11/29/2019 Hospital Encounter Department of Mary Aguirre M.D. [address] [place] [phone] Malignant Neoplasm Radiation Oncology Natasha Brandon, RDN [address] [place] [phone] Of Supraglottic in [place], ([facility]) [place] [address] [facility] [place] [phone] Social History Tobacco Use Types Packs/Day Years [...] or relatives? How often do you attend lutheran or Never 2018 samaritan services? Do you belong to any clubs or No 02/21/2019 organizations such as lutheran groups, unions, fraternal or athletic groups, or [...] Sign Reading Time Taken Comments Blood Pressure - - Pulse - - Temperature - - Respiratory Rate - - Oxygen Saturation - - Inhaled Oxygen Concentration - - Weight - - Height 167 cm (5' 5.75) 11/29/2019 2:39 PM CDT Body Mass Index - - documented in this encounter Medications at Time [...] as of this encounter Progress Notes Natasha Brandon, RDN - 11/29/2019 1:30 PM CDT CHIEF COMPLAINT/REASON FOR VISIT Malignant Neoplasm Of Supraglottic (HCC) (C32.1) ?? HISTORY OF PRESENT ILLNESS Mrs. 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 Radiotherapy to the supraglottic tumor initiated on March 26, 2019; completed April,. ?? Met with patient and her [id number] via telephone. Patient is hard of hearing and reads lips. For phone contact Merlin (son) states, his Darlin is the one to call, . ?? ASSESSMENT Relevant Social and Family History She lives in [place], [place] with her son Merlin and his Darlin. During the week while undergoing treatment lives in [place] with a different son. She is . She has 4 sons, 10 grand children and 2 great grandchildren. 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 She has a 40 year history of smoking 2.5 to 0.75 packs per day. She has been working to quit smoking. She does not drink alcohol. ?? Medical Tests and Procedures/Biochemical Data PEG replacement on 11/02/19 Swallow evaluation on 09/28/19 Recommendations 1.??Continue??using your PEG tube for your primary source [...] 09/28, or sooner should dysphagia symptoms worsen. ?? Nutrition Focused Physical Findings Mouth/throat/esophagus: no throat pain. Denies difficulty swallowing. Reports she is doing her swallowing exercises. Swallow evaluation in October was cancelled due to covid-19. She reports this may be rescheduled for December. Nausea/vomiting: denies nausea or vomiting Bowels: normal ?? Tube Information Gastrostomy tube initially placed by GI 04/17/19 and replaced 11/02/19 LEONARDO 20 Azeri balloon gastrostomy, ENFit connector ?? Food/Nutrient Related History She reports that she is eating solid food such as jello, sandwiches, ramen noodles, fried chicken, potatoes and gravy, potato salad. She reports eating 2-3 meals per day. She is eating by mouth more consistently now. Reports taking in 2-3 cartons of nutren 1.5 each day. She is drinking 3-4 bottles of water water by mouth and doing tube feeding flushes before and after each feeding. She is also drinking milk by mouth. ?? Weight History Current weight 68.3 kg - 1.3 kg increase since 10/18/19 Height: 167 cm BMI: 24.5 kg/m2 Usual body weight: 230# (104.5 kg) last year, per patient 03/16/19: 88.5 kg 03/28/19: 87.7 kg 04/04/19: 86.3 kg 04/11/19: 83.5 kg 04/12/19: 82.5 kg--5.8% loss from treatment start weight 04/18/19: 83.6 kg 04/26/19: 82.4 kg 05/03/19: 81.3 kg 05/24/19: 75.0 kg 06/14/19: 73.7 kg 08/03/19: 68.6 kg 08/30/19: 66.8 kg 09/20/19: 63.2 kg 10/18/19: 67.0 kg ?? Estimation of Nutritional Needs using 68.3 kg (11/29/19) and 167 cm 1600 calories/day (HB basal + 20%) 70 grams protein/day (1 gram/kg) 1700 to 2050 mL fluid/day (25 to 30 mL/kg) ?? Assessment Summary Obdulia Narayan is not able to meet her nutrition or hydration needs orally due to dysphagia/side-effects of treatment. She needs tube feedings to meet her needs for several months until able to gradually resume oral intake. A feeding gastrostomy was placed 04/17/19. Tube replaced 11/02/19. ? NUTRITION DIAGNOSIS Inadequate oral intake (NI-2.1) related to side-effects of treatment as evidenced by weight loss anddiet history. ?? Unintentional weight loss related to cancer as evidenced by approximate 16.8 kg weight loss in the last year prior to treatment per patient report and 5.8% weight loss prior to tube feeding placement. ?? Food- and nutrition-related knowledge deficit related to Cancer with radiation therapy as evidenced by need for nutrition education to maintain weight and nutrition status post treatment Nutrition Diagnosis Reassessment: Ongoing ?? Nutrition Prescription/Recommendation Formula Type: Nutren 1.5, 2-3 containers/day Administration Method: Intermittent gravity/syringe Infusion Schedule: Water Flushes: 60 mL before and after each feeding, increase if not able to take about 4-5 cups water orally Additional Multivitamin: not needed, formula provides 50-75% in addition to oral intake ?? At goal, this will provide a total of: 750-1125 calories/day, 34-51 g protein/day and 620-930 mL of fluid/day Water flushes of 60 mL before and after each feeding will provide 240-360 mL with infusion as above.Goal of at least 1000 mL by flushes or mouth to meet estimated fluid needs. Oral Program: 2-3 meals per day as tolerated ?? INTERVENTION Discussed her current progress and weight. Recommend continuing with 2-3 cartons of nutren 1.5 each day at this time in addition to oral intake. She will keep track of her weight at home to ensure she isn't losing weight. Discussed continuing to aim for 2-3 meals per day with a protein source. Reviewed guidelines for discontinuing her tube feeding including weight maintenance. ?? Care Coordination Authorization on file to speak with DME/Infusion Company: yes DME/Infusion Company that will provide needed supplies for home: [employer] . They delivered supplies 04/18/19. ?? Indication for Ongoing Enteral Nutrition Home Enteral Nutrition, dysphagia, suqpaglottic squamous cell carcinoma. Anticipated duration of tube feedings is 12 months. This is the sole source of nutrition. ?? MONITORING AND EVALUATION Nutrition parameter to monitor: Weight Desired Outcome: Prevent further weight loss Patient Goal(s): 1. Nutren 1.5, 2-3 containers a day, schedule of or as tolerated with 60 ml flush before and after each feeding. 2. 7-8 cups total fluid by flush or mouth to meet estimated fluid needs. 3. 2-3 meals per day ?? Follow-up Plan Follow up to be determined after her next swallow evaluation. ?? Time spent with patient (minutes):15 ?? documented in this encounter Plan of Treatment Upcoming Encounters Date Type Specialty Care Team Description 04/22/2022 Clinical Admitting/Central Communication Scheduling 04/26/2022 Appointment Radiology Mark Eastman M.D., M.S. [address] [place] [phone] 04/26/2022 Office Visit Otorhinolaryngology Roxanne Lanza, CLASSIFIED ADVERTISING SUPERVISOR, C.N.P. [address] [place] [phone] 04/28/2022 Appointment Radiation Oncology Ursula Aguirre M.D. [address] [place] [phone] Scheduled Referrals Name Type Priority Associated Diagnoses Order S chedule Nutrition - Outpatient Referral Routine Malignant Neoplasm On ce for 1 Medical nutrition Of Supraglottic Occurre nces therapy consult (HCC) starting (clinic) until 0 documented as of this encounter Visit Diagnoses Diagnosis Malignant Neoplasm Of Supraglottic (HCC) documented in this encounter
--- OUTSIDE RECORDS SUMMARY | 2022-03-31 14:47 | XMS_ITS | Encounter Summary ---
:1955 Author Organization [facility] Address [address] [place] [address] Care Team Providers Name Role Phone Unavailable Primary Care Provider Unavailable Reason for Referral Outpatient (Routine) - Closed Specialty Diagnoses / Procedures Referred By Contact Refer red To Contact Diagnoses Home Enteral Nutrition Rajiv Adler M.D. [facility] Procedures GI Check/Exchange/Adjust Percutaneous Endoscopic Gastrostomy (PEG) [address] [place] [phone] Referral ID Status Reason Start Date Expiration Date Visits Requ ested Visits Authorized [id number] Closed 10/31/2019 10/30/2020 1 1 Reason for Visit Auth/Cert Specialty Diagnoses / Procedures Referred By Contact Refer red To Contact Diagnoses Home Enteral Nutrition Procedures EGD ? PERCUTANEOUS ENDOSCOPIC GASTROSTOMY/JEJUNOSTOMY Referral ID Status Reason Start Date Expiration Date Visits Requ ested Visits Authorized [id number] 1 1 Encounter Details Date Type Department Care Team Description 11/02/2019 Hospital Division of Rajiv Adler Home Enteral Encounter Gastroenterology guanakito Cisneros M.D. Nutrition [place], [place] [address] [facility] [address] [place] [phone] Social History Tobacco Use Types Packs/Day Years [...] or relatives? How often do you attend methodist or Never 2018 taoism services? Do you belong to any clubs or No 02/21/2019 organizations such as methodist groups, unions, fraternal or athletic groups, or [...] Sign Reading Time Taken Comments Blood Pressure 152/84 11/02/2019 1:16 PM CDT Pulse 86 11/02/2019 1:17 PM CDT Temperature 36.9 ??C (98.4 ??F) 11/02/2019 1:11 PM CDT Respiratory Rate 15 11/02/2019 1:18 PM CDT Oxygen Saturation 98% 11/02/2019 1:17 PM CDT Inhaled Oxygen Concentration - - Weight - - Height - - Body Mass Index - - documented in [...] ER tablet documented as of this encounter Nursing Notes Chucho Tse, RShitalN. - 11/02/2019 2:04 PM CDT PEG/PEJ Nursing Procedure Note ASSESSMENT / PLAN Patient Name: Obdulia Narayan Tube Replacement Procedure Department : DIVISION OF GASTROENTEROLOGY IN [place], [place] SUBJECTIVE Past Medical History: Diagnosis Date ??? Anxiety [...] LIGATION ??? UMBILICAL HERNIA REPAIR with mesh Social History Socioeconomic History ??? Marital status: Spouse name: None ??? Number of children: None ??? Years of education: None ??? Highest education level: None Occupational History ??? None Social Needs ??? Financial resource strain: Somewhat hard ??? Food insecurity Worry: Never true Inability: Never true ??? Transportation needs Medical: No Non-medical: No Tobacco Use ??? Smoking status: Current Every Day Smoker Packs/day: 0.75 Years: 43.00 Pack years: 32.25 Types: Cigarettes Start date: 08/15/1974 Last attempt to quit: 03/13/2019 Years since quittin.6 ??? Smokeless tobacco: Never Used Substance and [...] week Gets together: Once a week Attends taoism service: Never Active member of club or organization: No Attends meetings of clubs or organizations: Never Relationship status: ??? Intimate partner violence Fear of current or ex partner: None Emotionally abused: None Physically abused: None Forced sexual activity: None Other Topics Concern ??? None Social History Narrative ??? None OBJECTIVE Procedure Patient presents to [facility] Ramakrishna 6 Patient being seen for: PEG Type of procedure: Replacement Location of tube: Stomach Brand of tube: Other (Avanos LEONARDO, Small bore) Reference number: [id number] Size of Tube: 20 Top of skin disc level: 5.5 Internal Retention Device: Balloon Balloon volume in mL: 10 T Fasteners: Not Present Skin integrity of site: Granulation Granulation at site: Yes Granulation treated with: Silver Nitrate (Circumferential, used three sticks for treatment) Dressing: Se pro net Complications: Other (unable to reinsert tube after old tube was removed. See comment below. ) Did tube need to be re-labeled: No Verification of tube done by: Fluoroscopy After Visit Information Recommendations for after procedure: Follow nursing guideline PEG/PEJ Tube Site Care and Tube Replacement, Home Enteral Nutrition Clinic, Follow instructions page 6-12 in PEG/PEJ booklet for post tube placement activity, pain control, site care, Contact number is in wallet card and PEG/PEJ booklet forany questions or concers related to tube and Once dressing is removed secure tube to abdomen with sepro net for Flexi-Trak Return appointment timeframe: 3-5 months Tube is used for: Feeding When may you use tube: May use tube immediately Tube placed to gravity: No Patient Education Learning needs assessment. Who is being assessed: Patient and Family Any barriers to learning: None Learning preference: Doing, Listening, Reading and Seeing Education: PEG/PEJ Wallet Card ([id number]) Supplies sent with patient: None Unable to reinsert tube after old tube was removed in the pre/ post room. The Pt was fully checked in, a wire was passed through the stoma and Flouro x-ray was used to confirm that the wire was in the gastric mucosa. A 20fr PEG tube was passed over the wire and was successfully passed through the stoma and confirmed in correct position with contrast and fluoro x-ray. Per Dr. Gao. documented in this encounter Plan of Treatment Upcoming Encounters Date Type Specialty Care Team Description 04/22/2022 Clinical Admitting/Central Communication Scheduling 04/26/2022 Appointment Radiology Mark Eastman M.D., M.S. [address] [place] [phone] 04/26/2022 Office Visit Otorhinolaryngology Roxanne Lanza, CORPORATE GIVING MANAGER, C.N.P. [address] [place] [phone] 04/28/2022 Appointment Radiation Oncology Ursula Aguirre M.D. [address] [place] [phone] documented as of this encounter Procedures Procedure Name Priority Date/Time Associated Comments Diagnosis FL FLUORO LESS THAN 1 Routine 11/02/2019 1:58 PM Home Enteral Results for this HOUR CDT Nutrition procedure are i n the results section. NON-ENDOSCOPIC TUBE Routine 11/02/2019 12:30 Home Enteral Resu lts for this PROCEDURE PM CDT Nutrition procedure are i n the results section. EGD ? Routine 11/02/2019 12:30 Home Enteral PERCUTANEOUS PM CDT Nutrition ENDOSCOPIC GASTROSTOMY/JEJUNOSTO MY documented in this encounter Results FL Fluoro [...] Code Phon e Number ERCP LOS RST Non-Endoscopic Tube Procedure (11/02/2019 12:30 PM CDT) Specimen (Source) Anatomical Collection Method Collection Time Re ceived Time Location / / Volume Laterality 11/02/2019 12:30 PM CDT Impressions [facility] - 11/07/2019 7:19 AM CDT Post-op Diagnoses: ? - The gastrostomy tube was dislod ged and was removed and replaced with a ? 20 Fr LEONARDO gastrostomy tube. ? - No specimens collected. Narrative [facility] - 11/07/2019 7:19 AM CDT Ramakrishna 6 GI GI Patient Name: Obdulia Narayan Date of : 1955 Age: 64 Gender: Female Procedure Date: 11/02/2019 Procedure: ? Non-endo scopic Tube Procedure Providers: ? Trevon Gao MD, Tono Matute MD ? (Fe llow) Referring Provider: ?Rajiv Adler Pre-op Diagnoses: ?Routine exc hange PEG tube Recommendation: ? - Return to referring physician. Findings: ? The gastrostomy tube was dislodge d and required removal. The existing ? PEG site was cleaned. A guidewire was advanced through the existing ? tube. The existing PEG balloon wa s deflated and by using traction, ? removal was easily accomplished. A 20 Fr LEONARDO gastrostomy tube was ? lubricated and placed into the ex isting gastrostomy port over the ? guidewire. A total of 10 mL salin e was used to distend the balloon that ? was previously tested and the evangelina dewire was removed. When positioned, ? the skin marking was noted to be 5.5 cm at the external bumper. The ? final tension and compression of the abdominal wall by the gastrostomy ? tube and external bumper were aly cked and revealed that the bumper was ? loose and lightly touching the sk in. Placement into the stomach was ? confirmed using fluoroscopy with contrast. The tube was capped, and the ? tube site was cleaned and dressed . Procedural Details: ? The patient was seen, evaluated, history reviewed, airway and heart-lung ? exams were performed by licensed provider and were satisfactory for ? planned level of sedation care. ? The risks, benefits and alternati ves for the procedure and sedation were ? discussed and informed consent wa s obtained. A procedural pause was ? conducted in the presence of assi sting personnel to verify the correct ? patient identity and procedure to be performed. Throughout the ? procedure, the patient's blood pr essure, pulse, and oxygen saturations ? were monitored continuously. The procedure was accomplished without ? difficulty. The patient tolerated the procedure well. Complications: ? No immedia te complications. Sedation: ? No sedation administered. Attending Participation: I was present a nd participated during the entire ? pro cedure, including non-rao portions. Trevon Gao MD 11/02/2019 2:14:06 PM This report has been signed electronical ly. Number of Addenda: 0 Rajiv Adler M.D. GI PROCEDURE ORDERABLES Performing Organization Address City/State/ZIP Code Phon e Number [employer] NA documented in this encounter Visit Diagnoses Diagnosis Home Enteral Nutrition documented in this encounter Administered Medications Inactive Administered Medications - up to 3 most recent administrations Medication Order MAR Action Action Date Dose Rate Site silver nitrate 75-25 Given 11/02/2019 1:48 1 application Abdominal Tissue % topical stick PM CDT (ARZOL) Code/trauma/sedation medication, Starting on Tue11/02/19 at 1348 documented in this encounter Active and Recently Administered Medications Times are shown in CDT. PRN Medication Order 10/31/2019 11/01/2019 11/02/2019 silver nitrate 75-25 % topical stick (ARZOL) (COMPLETED) 1348 (Given - Provider: Trevon Gao M.D. - Comment: granulation tissue around PEG site) Code/trauma/sedation medication, Starting on Tue11/02/19 at 1348 documented in this encounter
--- OUTSIDE RECORDS SUMMARY | 2022-03-31 14:47 | XMS_ITS | Encounter Summary ---
:1955 Author Organization [facility] Address [address] [place] [address] Care Team Providers Name Role Phone Unavailable Primary Care Provider Unavailable Reason for Referral Outpatient (Routine) - Closed Specialty Diagnoses / Procedures Referred By Contact Refer red To Contact Endocrinology Diagnoses Malignant Neoplasm Of Supraglottic (HCC) Summer Pérez P.A.-C.[facility] [address] [place] [phone] Referral ID Status Reason Start Date Expiration Date Visits Requ ested Visits Authorized [id number] Closed 02/11/2020 02/10/2021 1 1 Specialty Diagnoses / Procedures Referred By Contact Refer red To Contact Summer Péerz P.A.-C ., M.S. [facility] [address] [place] [phone] Referral ID Status Reason Start Date Expiration Date Visits Requ ested Visits Authorized Encounter Details Date Type Department Care Team Description 02/11/2020 Orders Only Department of Summer Pérez, Malignant Joao plasm Of Radiation Oncology in [place], M .S. Supraglottic (HCC) [facility] [address] [place] [address] (Primary Dx) [address] [place] [phone] Social History Tobacco Use Types Packs/Day Years [...] do you attend catholic or Never 2018 evangelical services? Do you belong to any clubs [...] Appointment Radiology Mark Eastman M.D., M.S. [address] [place] [phone] 04/26/2022 Office Visit Otorhinolaryngology Roxanne Lanza APRN, C.N.P. [address] [place] [phone] 04/28/2022 Appointment Radiation Oncology Ursula Aguirre M.D. [address] [place] [phone] Scheduled Referrals Name Type Priority Associated Diagnoses Order S chedule Nutrition - Outpatient Routine Malignant Neoplasm Expected: Post-feeding tube Referral Of Supraglottic 020 education visit (HCC) (Approximate ), (clinic) - Nurse Expires: 02/10/2023 Endocrinology - Home Outpatient Routine Malignant Neoplasm E xpected: enteral medical Referral Of Supraglottic 0 nutrition therapy (HCC) (Approxima te), consult (clinic) Expires: 02/10/2023 documented as of this encounter Visit Diagnoses Diagnosis Malignant Neoplasm Of Supraglottic (HCC) - Primary documented in this encounter
--- OUTSIDE RECORDS SUMMARY | 2022-03-31 14:47 | XMS_ITS | Encounter Summary ---
:1955 Author Organization [facility] Address [address] [place] [address] Care Team Providers Name Role Phone Unavailable Primary Care Provider Unavailable Encounter Details Date Type Department Care Team Description 01/30/2020 Clinical Communication Department of Parvin Mijares Neurology guanakito Crabtree M.S., CCC-MEAT SALES AND STORAGE MANAGER [place], [place] [address] [facility] [address] [place] [phone] Social History Tobacco Use Types Packs/Day Years [...] or relatives? How often do you attend mormon or Never 2018 sabianist services? Do you belong to any clubs or No 02/21/2019 organizations such as mormon groups, unions, fraternal or athletic groups, or [...] Appointment Radiology Mark Eastman M.D., M.S. [address] [place] [phone] 04/26/2022 Office Visit Otorhinolaryngology Roxanne Lanza, RADIO REPORTER, C.N.P. [address] [place] [phone] 04/28/2022 Appointment Radiation Oncology Ursula Aguirre M.D. [address] [place] [phone] documented as of this encounter Visit Diagnoses Not on filedocumented in this encounter
--- OUTSIDE RECORDS SUMMARY | 2022-03-31 14:47 | XMS_ITS | Encounter Summary ---
:1955 Author Organization [facility] Address [address] [place] [address] Care Team Providers Name Role Phone Unavailable Primary Care Provider Unavailable Reason for Referral Outpatient (Routine) - Closed Specialty Diagnoses / Procedures Referred By Contact Refer red To Contact Diagnoses Home Enteral Nutrition Rajiv Adler M.D. [facility] Procedures GI Check/Exchange/Adjust Percutaneous Endoscopic Gastrostomy (PEG) [address] [place] [phone] Referral ID Status Reason Start Date Expiration Date Visits Requ ested Visits Authorized [id number] Closed 10/31/2019 10/30/2020 1 1 Encounter Details Date Type Department Care Team Description 10/31/2019 Orders Only Division of Elder, Chio S, Home Enter al Endocrinology in R.N. Nutrition (Primary [place], [place] [address] [facility] D[facility]) [address] [place] [phone] Social History Tobacco Use Types Packs/Day Years [...] do you attend yazidi or Never 2018 amish services? Do you belong to any clubs or No 02/21/2019 organizations such as yazidi groups, unions, fraPeach or athletic groups, or school groups? How [...] Appointment Radiology Mark Eastman M.D., M.S. [address] [place] [phone] 04/26/2022 Office Visit Otorhinolaryngology Roxanne Lanza, AIRWAY TRAFFIC CONTROLLER, C.N.P. [address] [place] [phone] 04/28/2022 Appointment Radiation Oncology Ursula Aguirre M.D. [address] [place] [phone] documented as of this encounter Visit Diagnoses Diagnosis Home Enteral Nutrition - Primary documented in this encounter
--- OUTSIDE RECORDS SUMMARY | 2022-03-31 14:47 | XMS_ITS | Encounter Summary ---
:1955 Author Organization [facility] Address [address] [place] [address] Care Team Providers Name Role Phone Unavailable Primary Care Provider Unavailable Reason for Referral Outpatient (Routine) - Closed Specialty Diagnoses / Procedures Referred By Contact Refer red To Contact Radiation Oncology Ursula Aguirre [facility] [address] [place] [phone] Referral ID Status Reason Start Date Expiration Date Visits Requ ested Visits Authorized [id number] Closed 11/29/2019 11/28/2020 1 1 Outpatient (Routine) - Closed Specialty Diagnoses / Procedures Referred By Contact Refer red To Contact Radiation Oncology Summer Pérez P.A.-C., [facility].S 200 [place] [address] Referral ID Status Reason Start Date Expiration Date Visits Requ ested Visits Authorized [id number] Closed 08/30/2019 08/29/2020 1 1 Scheduling Instructions TSH a few days prior Reason for Visit Outpatient (Routine) - Closed Specialty Diagnoses / Procedures Referred By Contact Refer red To Contact Radiation Oncology Summer Pérez P.A.-C., [facility].S [address] [place] [phone] Referral ID Status Reason Start Date Expiration Date Visits Requ ested Visits Authorized [id number] Closed 08/30/2019 08/29/2020 1 1 Encounter Details Date Type Department Care Team Description 11/29/2019 Hospital Encounter Department Ursula Molina Neoplasm Of Radiation Oncology Kimberley Bacon Supraglottic (HCC) in [address] [place] [phone] [place], [place] [phone] (Work) [phone] Social History Tobacco Use Types Packs/Day Years [...] do you attend rastafarian or Never 2018 voodoo services? Do you belong to any clubs [...] Sign Reading Time Taken Comments Blood Pressure 147/67 11/29/2019 1:00 PM CDT Pulse 84 11/29/2019 1:00 PM CDT Temperature 37.3 ??C (99.1 ??F) 11/29/2019 1:00 PM CDT Respiratory Rate - - Oxygen Saturation - - Inhaled Oxygen Concentration - - Weight 68.3 kg (150 lb 9.2 oz) 11/29/2019 1:00 PM CDT Height - - Body Mass Index 24.55 04/18/2019 8:26 AM CDT documented in this encounter Medications at Time of Discharge Medication Sig Dispensed Refills Start Date End Date aspirin 81 mg chewable Chew 81 mg every 0 tablet evening. Clare Aspirin diaper,brief,adult,disposab Bag: (36 each) 36 each 1 03/16 le (DEPEND UNDERWEAR FOR WOMEN XL) misc hydroCHLOROthiazide Take 25 mg by 11 02/18/2019 (HYDRODIURIL) 25 mg tablet mouth every evening. fluticasone propionate Administer [...] encounter Progress Notes Ursula Aguirre M.D. - 11/29/2019 1:00 PM CDT RADIATION ONCOLOGY FOLLOW-UP NOTE REQUESTING PROVIDER Established patient DIAGNOSIS 1. 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 2.?Definitive radiotherapy to the supraglottic tumor initiated on March 26, 2019; completed on??May 04, 2019 CHIEF COMPLAINT/REASON FOR VISIT Obdulia Narayan is a 64-year-old female with supraglottic squamous cell carcinoma who received definitive radiation and chemotherapy. She returns for her 6 month focused follow-up. ?? Her oncologic history is as follows: 1. November 2018: ??The patient noted throat pain with swallowing along with intermittent ear pain,??managed with Tylenol. 2. February 2019: ??The patient experienced progressively worsening throat pain,??odynophagia, 10 pound??unintentional weight loss, hoarseness over the past few weeks,??and difficulty sleeping due to increased secretion. 3. February 08, 2019: ??Appointment with Dr. Darryl Grayson???[facility]. ??Physical examination with flexible laryngoscopy revealed a large fungating mass overlying the posterior left arytenoid that appeared fairly extensive, extending over to the right arytenoid into the piriform sinus. ?? Vocal cords move normally. ??Patient did have some shotty adenopathy on the left side. ??Ordered CT scan and then arrange referral to [facility]. 4. February 12, 2019: ??CT scan of [...] Hung Mabry and Dr. Frank Arrieta??at [facility]. ??Physical examination revealed an exophytic mass of [...] will be referred to Radiation Oncology in [place]. 8. March 13, 2019: ??Follow-up appointment with Dr. Arrieta and Dr. Mabry who discussed treatment options including total laryngectomy versus radiation therapy. ??They were not able to offer partial laryngectomy given her lung disease and possible aspiration. ?? 9. March 15, 2019: ??Phone call with Dr. Tapia with the patient's [id number] reported that the patient had decided to undergo radiation treatment in [place]. ??She will have a follow-up abdominal MRI at [place]. ??The patient will follow-up with her primary care provider regarding the asymmetry in the right breast.? 10. March 26, 2019 through May 04, 2019: ??Definitive radiotherapy to the supraglottic tumor to a dose of 7000 cGy in 35 fractions. 11. August 02, 2019: PEG tube exchange. 12. August 24, 2019: PET/CT showed no evidence for recurrent or metastatic supraglottic squamous cell Carcinoma. 13. September 28, 2019: Swallow study performed. Continue to use PEG. Swallow exercises. Suggest repeat VFSS in 4-6 weeks. 14. November 02, 2019: PEG tube was dislodged, removed and replaced. It will be due again in 3 months. INTERVAL HISTORY: Since I last saw Obdulia Narayan she reports that she is doing well. Her tube was exchanged. She is eating by mouth now. She mostly eats softer food like ramen noodles, potates and gravy, mac n cheese, rice, and even fried chicken. She is using 2-3 cans per day depending on what she eats. She has some pain on the right neck and both ear occasionaly when she eats. She is gaining weight and very happy. Her voice is improved, but still hoarse. No regular pain. No other lumps or masses. No fevers, chills or new cough. She does cough at night or morning and is still using Mucinex. The allergies, medications, and vital signs were reviewed and updated as appropriate. OBJECTIVE BP 147/67 (BP Location: Right arm, Patient Position: Sitting, Cuff Size: Small) Pulse 84 Temp 37.3 ??C (Temporal) Wt 68.3 kg BMI 24.55 kg/m?? General: Obdulia Narayan is a well-developed, well-nourished woman. she is seated in the examination room in no acute distress. ECO - symptomatic but completely ambulatory. HEENT: Mucous membranes are pink and intact. No oral lesions. Her dentures were removed for exam. Nopalpable masses. Good opening of mouth. Good movement of tongue. After topical decongestion and anesthesia??with lidocaine and afrin, the??flexible??laryngoscope wasinserted??on the right nare. ??The nasal cavity, nasopharynx, oropharynx, hypopharynx and larynx were normal. However, she did have some thick secretions and mild swelling about the larynx. No obvious mass was present. No neck adenopathy. Lymph: There is no cervical or supraclavicular lymphadenopathy. DIAGNOSTICS: I have reviewed the available imaging, [...] replacement on August 02, 2019, replacement on 2019. Obdulia Narayan was seen with alone as I had to scope her with appropriate PPE (N95 mask) and then wait the appropriate time before we could leave the room. I see no clinical evidence of disease. She is doing well recovering. She will transition off the PEG tube as tolerated. She will talk with pierce and shave press operator after our visit. She signed our consent form for video I will put her videoscope exam in [facility]. We will see Obdulia Narayan in follow-up visit in 3-4 months with out imaging. I would suggest another PET/CT at 1 year samuel and will have her see ENT in [place] at that time. Obdulia Narayan knows to contact us at any point should any questions or concerns arise. EDUCATION Ready to learn, no apparent learning [...] replacement on August 02, 2019, replacement on 2019. I have spent 40 minutes with this patient today in which greater than 50% was spent counseling and coordination of care. Signed by: Ursula Aguirre M.D. 11/29/2019 1:40 PM CDT Radiation Oncology [facility] [address] [place] [address] documented in this encounter Miscellaneous Notes Addendum Note - Mehreen Trujillo - 11/29/2019 12:41 PM CDT Encounter addended by: Meheren Trujillo on: 11/29/2019 3:03 PM Actions taken: Letter saved documented in this encounter Plan of Treatment Upcoming Encounters Date Type Specialty Care Team Description 04/22/2022 Clinical Admitting/Central Communication Scheduling 04/26/2022 Appointment Radiology Mark Eastman M.D., M.S. [address] [place] [phone] 04/26/2022 Office Visit Otorhinolaryngology Roxanne Lanza APRN, C.N.P. [address] [place] [phone] 04/28/2022 Appointment Radiation Oncology Ursula Aguirre M.D. [address] [place] [phone] Scheduled Referrals Name Type Priority Associated Order Schedule Diagnoses Radiation Oncology Outpatient Referral Routine On ce for 1 office visit Occurrences sta rting (clinic) 11/29/2019 unti l 11/29/2019 Radiation Oncology Outpatient Referral Routine Ex pected: 02/28/2020 office visit (Approximate), (clinic) Expires: 2020 documented as of this encounter Visit Diagnoses Diagnosis Malignant Neoplasm Of Supraglottic (HCC) documented in this encounter
--- OUTSIDE RECORDS SUMMARY | 2022-03-31 14:47 | XMS_ITS | Encounter Summary ---
:1955 Author Organization [facility] Address [address] [place] [address] Care Team Providers Name Role Phone Unavailable Primary Care Provider Unavailable Reason for Visit Reason Comments Scheduling Encounter Details Date Type Department Care Team Description 10/31/2019 Documentation Division of General Ashley Dc, Scheduling Internal Medicine in [place], [place] [address] [facility] [address] [place] [phone] Social History Tobacco Use Types Packs/Day Years [...] or relatives? How often do you attend mandaeism or Never 2018 restorationism services? Do you belong to any clubs or No 02/21/2019 organizations such as mandaeism groups, unions, fraternal or athletic groups, or [...] documented as of this encounter Progress Notes Ashley Dc, R.N. - 10/31/2019 4:10 PM CDT Orders in for PEG tube replacement in GI. Patient has a history of supraglottic laryngeal cancer. She currently has a 8100-20, last replaced in GI on 08/02/2019. She will need a 30 minute slot, no anesthesia and a complex doctor. No HEN clinic appointments needed at this time. Last saw HEN April 2019. Requesting appointment on Tuesday11/02/2019. documented in this encounter Plan of Treatment Upcoming Encounters Date Type Specialty Care Team Description 04/22/2022 Clinical Admitting/Central Communication Scheduling 04/26/2022 Appointment Radiology Mark Eastman M.D., M.S. [address] [place] [phone] 04/26/2022 Office Visit Otorhinolaryngology Roxanne Lanza, RESTAURANT ASSISTANT MANAGER, C.N.P. [address] [place] [phone] 04/28/2022 Appointment Radiation Oncology Ursula Aguirre M.D. [address] [place] [phone] documented as of this encounter Visit Diagnoses Not on filedocumented in this encounter
--- OUTSIDE RECORDS SUMMARY | 2022-03-31 14:47 | XMS_ITS | Encounter Summary ---
:1955 Author Organization [facility] Address [address] [place] [address] Care Team Providers Name Role Phone Unavailable Primary Care Provider Unavailable Reason for Visit Outpatient (Routine) - Closed Specialty Diagnoses / Procedures Referred By Contact Refer red To Contact Endocrinology Diagnoses Malignant Neoplasm Of Supraglottic (HCC) Summer Pérez P.A.-C., [facility] M.S. [address] [place] [phone] Referral ID Status Reason Start Date Expiration Date Visits Requ ested Visits Authorized [id number] Closed 02/11/2020 02/10/2021 1 1 Encounter Details Date Type Department Care Team Description 02/26/2020 Comprehensive Visit Division of Summer Pérez P.A.-C., M.S. [address] [place] [phone] Gastrostomy Status (HCC) (Primary Dx); Endocrinology in Padma Vieira APRN, C.N.P., M.S. [address] [place] [phone] Malignant Neoplasm Of Supraglottic (HCC) ; [place], [place] Home Enteral Nutrition [address] [place] [phone] Social History Tobacco Use Types Packs/Day Years [...] or relatives? How often do you attend adventist or Never 2018 restoration services? Do you belong to any clubs or No 02/21/2019 organizations such as adventist groups, unions, fraternal or athletic groups, or [...] - Inhaled Oxygen Concentration - - Weight 76.6 kg (168 lb 14 oz) 02/26/2020 10:04 AM CDT Height 165.5 cm (5' 5.16) 02/26/2020 10:04 AM CDT Body Mass Index 27.97 02/26/2020 10:04 AM CDT documented in this encounter Progress Notes Padma Vieira APRN, C.N.P., M.S. - 02/26/2020 10:00 AM CDT SUBJECTIVE REASON FOR VISIT/CHIEF COMPLAINT Evaluation for g-tube removal HISTORY OF PRESENT ILLNESS Ms. Obdulia Narayan is a 64 y.o. female whose medical history is nutritionally significant for supraglottic squamous cell carcinoma, status post radiation therapy with date of completion 05/04/2019, dysphagia, poor oral intake, and weight loss, tobacco smoking history of 2.5 ppd since age 18 (quit end of February 2019), hypertension, COPD, psoriatic arthritis, DM II, 5 cm infrarenal abdominal aortic aneurysm, GERD. Her medical history also includes deafness since age 8, due to rubella. Her surgical history is significant for umbilical hernia repair, with mesh, in 2010, and a tubal ligation. Ms. Obdulia Narayan presents for evaluation for G-tube removal. Ms. Narayan reports no difficulty with oral intake. She is tolerating a variety of foods and textures. She denies any problems with dehydration. She last used her G-tube on 01/12/20. Since then she has flushed it daily with 1 syringe of water for patency. Denies constipation or diarrhea. Is slowing getting back into her usual routine but notes some fatigue still. She is minimally active at home but does live with her 4 grandchildren which keep her busy. Refer to documentation by dietitian and HEN nurse for further detail and specifics regarding currenthydration, nutritional intake, weight trends, and feeding tube. The pertinent tests and imaging were reviewed. OBJECTIVE PHYSICAL EXAM General: In no acute distress. Accompanied by daughter in law. Skin: Warm and dry. ENT: Moist mucous membranes. Mask. Abdomen: Soft, non-distended, and non-tender. Gastrostomy tube site with moderate amount of granulation tissue, moderate amount of mucoid drainage, no infection concern. Central adiposity noted. Extremities: Bilateral lower extremities without edema. Musculoskeletal: Strength 5/5 bilateral upper and lower extremities. No temporal, clavicular, and scapular muscle wasting appreciated. Mental: Alert and oriented. Asks appropriate questions and able to verbalize medical plan. ASSESSMENT / PLAN #1 Malignant Neoplasm Of Supraglottic (HCC) #2 Gastrostomy Status (HCC) #3 Home Enteral Nutrition Nutritionally, Ms. Narayan is doing excellent on oral intake alone. She has stopped using the G-tubefor nutrition 5 weeks ago. Her weight today is 76.6 kg with BMI of 28 which is a 4 kg weight gain since stopping the tube feeds. She is currently meeting tube removal guidelines and we recommend G-tuberemoval. We discussed healthy weight goals given her rapid weight gain over the past several months with BMI now being above normal. We also discussed incorporation of physical activity to promote lean body mass gains. The patient is currently meeting feeding tube removal guidelines including: has not used the tube over the past 4 weeks for nutrition, hydration, or medication administration; feeding tube has been in place for greater than 6 weeks; there are no future planned surgeries or treatments that would interfere with the patient's ability to continue oral means for nutrition; and is currently meeting currentweight goals. Feeding tube removal education was provided by myself and the HEN nurse. Education included cares for feeding tube site after removal, monitoring for signs or symptoms of infection, avoiding carbonatedbeverages during the healing process, and contacting the HEN team if the feeding tube site does not c ompletely heal after 6 to 8 weeks. Patient verbalized understanding and is in agreement with feedingtube removal. RECOMMENDATIONS: 1. Agree with G-tube removal 2. Healthy food choices and weight goals discussed documented in this encounter Plan of Treatment Upcoming Encounters Date Type Specialty Care Team Description 04/22/2022 Clinical Admitting/Central Communication Scheduling 04/26/2022 Appointment Radiology Mark Eastman M.D., M.S. [address] [place] [phone] 04/26/2022 Office Visit Otorhinolaryngology Roxanne Lanza, SHUTTLE REPAIRER, C.N.P. [address] [place] [phone] 04/28/2022 Appointment Radiation Oncology Ursula Aguirre M.D. [address] [place] [phone] documented as of this encounter Visit Diagnoses Diagnosis Gastrostomy Status (HCC) - Primary Malignant Neoplasm Of Supraglottic (HCC) Home Enteral Nutrition documented in this encounter
--- OUTSIDE RECORDS SUMMARY | 2022-03-31 14:47 | XMS_ITS | Encounter Summary ---
:1955 Author Organization [facility] Address [address] [place] [address] Care Team Providers Name Role Phone Unavailable Primary Care Provider Unavailable Reason for Visit Reason Onset Date Comments COVID Inquiry 02/25/2020 Encounter Details Date Type Department Care Team Description 02/25/2020 Clinical Communication Division of Tramaine Deras COVID Inquiry Internal Medicine in A, AMAYA, C.N.P., [facility].S. [address] [place] [address] [address] [place] [phone] Social History Tobacco Use Types Packs/Day Years [...] or relatives? How often do you attend sabianism or Never 2018 mandaeism services? Do you belong to any clubs or No 02/21/2019 organizations such as sabianism groups, unions, fraternal or athletic groups, or [...] to pay for the very basics like [employer] hat hard 02/21/2019 food, housing, medical care, [...] this encounter Miscellaneous Notes Telephone Encounter - Anthony Obdulia Chaidez - 02/25/2020 11:18 AM CDT ([facility] and [facility] locations only: If the patient is not having symptoms and is requesting COVID-19 Nasal Swab testing only, use the process listed in the COVID-19 Patient Requesting COVID PCR Test OTG COVID-19 [place] Patient Requesting COVID PCR Test). 1. Do you have a pending COVID test because you had symptoms or exposure to someone with COVID or you have tested positive for COVID in the last 30 days? no 2. In the past 14 days, do you, anyone in the household, or anyone you have had prolonged exposure have any of the following? a. Fever greater than or equal to 37.8 C (100.0 F)? no b. New symptoms (Specifically: headache, cough, shortness of breath, respiratory distress, sore throat, diarrhea, nausea, vomiting, chills and repeated shaking with chills, myalgia's (muscle aches), loss of smell, or change or loss of taste sensation)? no c. Had close contact with a patient with known or possible COVID-19 in the last 14 days? no documented in this encounter Plan of Treatment Upcoming Encounters Date Type Specialty Care Team Description 04/22/2022 Clinical Admitting/Central Communication Scheduling 04/26/2022 Appointment Radiology Mark Eastman M.D., M.S. [address] [place] [phone] 04/26/2022 Office Visit Otorhinolaryngology Roxanne Lanza, HAND SPRAY OPERATOR, C.N.P. [address] [place] [phone] 04/28/2022 Appointment Radiation Oncology Ursula Aguirre M.D. [address] [place] [phone] documented as of this encounter Visit Diagnoses Not on filedocumented in this encounter
--- OUTSIDE RECORDS SUMMARY | 2022-03-31 14:47 | XMS_ITS | Encounter Summary ---
:1955 Author Organization [facility] Address [address] [place] [address] Care Team Providers Name Role Phone Unavailable Primary Care Provider Unavailable Reason for Visit Reason Comments Feeding Tube Outpatient (Routine) - Closed Specialty Diagnoses / Procedures Referred By Contact Refer red To Contact Endocrinology Padma Vieira APRN, [place] C.N.P., M.S. [address] [place] [address] [phone] Referral ID Status Reason Start Date Expiration Date Visits Requ ested Visits Authorized [id number] Closed 01/30/2020 01/29/2021 1 1 Encounter Details Date Type Department Care Team Description 01/31/2020 Nurse Only Division of Endocrinology in Padma Pinedo APRN, C.N.P., M.S. [address] [place] [address] [phone] Feeding Tube [place], [place] Chio Whitaker S, R.N. [address] [place] [address] [phone] [address] [place] [phone] Social History Tobacco Use Types Packs/Day [...] or relatives? How often do you attend synagogue or Never 2018 episcopal services? Do you belong to any clubs or No 02/21/2019 organizations such as synagogue groups, unions, fraternal or athletic groups, or [...] - Inhaled Oxygen Concentration - - Weight 72.3 kg (159 lb 6.3 oz) 01/31/2020 10:55 AM CDT Height 165.8 cm (5' 5.28) 01/31/2020 10:55 AM CDT Body Mass Index 26.3 01/31/2020 10:55 AM CDT documented in this encounter Progress Notes Chio Whitaker R.N. - 01/31/2020 10:30 AM CDT SUBJECTIVE REASON FOR VISIT Ms. Narayan was seen in the Home Enteral Nutrition clinic today for a HEN RN visit. OBJECTIVE The indication for tube placement was: Cancer: Head and neck: history of supraglottic laryngeal cancer. Tube was placed using: No sedation. Were there complications at time of placement? No. ASSESSMENT Tube type: PEG tube Tube size: 20 Tube brand: MeMeMe Tube reference number: [id number] Connector type: Small Bore (Enfit) Date last replaced: 11/02/19 Skin disk level: 6 moved to 5.5 Internal anchor device: Balloon, removed 3 ml replaced with 8 ml of normal saline Site condition: small amount of mucous drainage mixed with scant blood, circumferential granulation tissue measuring 7-8 mm, very mild erythema around granulation tissue. Granulation tissue treated with 3 silver nitrate sticks per protocol. Patient tolerated well. Dressing status: None Is an infection assessment needed? No Condition of tube: Stained Securement device used: Se pro net Movement of tube: Moves freely T-fasteners present: No The patient's tube preference is: NA Does the patient have a second enteral tube? No Considerations for future visits: Low profile tube: NA Self replacement: NA Special order tube: GI/IR supply chain generalist notified? NA PLAN Were procedural instructions given? No Is there a procedure scheduled? None Is a return visit needed? As needed *Obdulia Narayan reports feeling like her tube is coming out whenever she coughs or sneezes. Shetells me that she holds a pillow over it whenever she coughs as she is afraid it'll come out. After re-inflating the balloon today, she reports that it feels much more secure. *Obdulia Narayan reports that she is no longer using her tube and would like it removed. I reviewed our removal criteria with her today. She tells me that she last used the tube late December, but is unsure of the exact date. She does continue minimal (30 mL) water flushes twice daily to maintain patency. As she sees a dietitian locally, I will first discuss with her local dietitian and provider to review their recommendations. She also has a swallow study scheduled for today. I discussed with her thatthe results of the swallow evaluation will be an important factor in the decisions made regarding the tube. documented in this encounter Plan of Treatment Upcoming Encounters Date Type Specialty Care Team Description 04/22/2022 Clinical Admitting/Central Communication Scheduling 04/26/2022 Appointment Radiology Mark Eastman M.D., M.S. [address] [place] [phone] 04/26/2022 Office Visit Otorhinolaryngology Roxanne Lanza, MINCEMEAT MAKER, C.N.P. [address] [place] [phone] 04/28/2022 Appointment Radiation Oncology Ursula Aguirre M.D. [address] [place] [phone] documented as of this encounter Visit Diagnoses Diagnosis Home Enteral Nutrition - Primary documented in this encounter Administered Medications Inactive Administered Medications - up to 3 most recent administrations Medication Order MAR Action Action Date Dose Rate Site silver nitrate 75-25 % Given 01/31/2020 12:52 1 application Abdominal Tissue topical stick 1 PM CDT application (ARZOL) 1 application, topical, Once, On Meredith 01/31/20 at 1300, For 1 dose, PEG/PEJ: Applicators used on [...]
--- OUTSIDE RECORDS SUMMARY | 2022-03-31 14:47 | XMS_ITS | Encounter Summary ---
:1955 Author Organization [facility] Address [address] [place] [address] Care Team Providers Name Role Phone Unavailable Primary Care Provider Unavailable Reason for Referral Outpatient (Routine) - Closed Specialty Diagnoses / Procedures Referred By Contact Refer red To Contact Diagnoses Malignant Neoplasm Of Supraglottic (HCC) Summer Pérez P.A.-C., [place] Reg ion Procedures FL Swallow Function with Video and Speech or OT M.S. [address] [place] [address] [phone] Referral ID Status Reason Start Date Expiration Date Visits Requ ested Visits Authorized [id number] Closed 10/15/2019 10/14/2020 1 1 Reason for Visit Outpatient (Routine) - Closed Specialty Diagnoses / Procedures Referred By Contact Refer red To Contact Diagnoses Malignant Neoplasm Of Supraglottic (HCC) Summer Pérez P.A.-C. [place] Reg ion Procedures FL Swallow Function with Video and Speech or OT M.S. [address] [place] [address] [phone] Referral ID Status Reason Start Date Expiration Date Visits Requ ested Visits Authorized [id number] Closed 10/15/2019 10/14/2020 1 1 Encounter Details Date Type Department Care Team Description 01/31/2020 Hospital Encounter Department of Summer Pérez P.A.-C., M.S. [address] [place] [phone] Malignant Neoplasm Of Radiology, [place] Parvin Mijares M.S., CCC-SOUBRETTE [address] [place] [phone] Supraglottic (HCC) Building, in [place], [place] [address] [place] [phone] Social History Tobacco Use Types Packs/Day Years [...] or relatives? How often do you attend amish or Never 2018 jainism services? Do you belong to any clubs or No 02/21/2019 organizations such as amish groups, unions, fraternal or athletic groups, or [...] Radiology Mark Eastman M.D., M.S. [address] [place] [phone] 04/26/2022 Office Visit Otorhinolaryngology Roxanne Lanza APRN, C.N.P. [address] [place] [address] [phone] 04/28/2022 Appointment Radiation Oncology Ursula Aguirre M.D. [address] [place] [phone] documented as of this encounter Procedures Procedure Name Priority Date/Time Associated Comments Diagnosis FL SWALLOW RAD - Routine 01/31/2020 2:27 Malignant Neoplasm Resul ts for this FUNCTION WITH (most inpatients PM CDT Of Supraglottic procedu re are in VIDEO AND SPEECH and all (HCC) the results OR OT FOR RST outpatients) section. documented in this encounter Results FL Swallow Function with Video and Speech or OT (01/31/2020 2:27 PM CDT) Anatomical Region Laterality Modality Gastro Intestinal, Abdominal RST LOS, Abdominal ARZ N/A Digital Radiography LOS, Abdominal FLA LOS Specimen (Source) Anatomical Collection Method Collection Time Re ceived Time Location / / Volume Laterality 01/31/2020 2:46 PM CDT Impressions 01/31/2020 2:49 PM CDT A video swallow study was performed in conjunction with speech pathology using thin liquid barium, nect ar-thickened barium, and applesauce consistency. Deep penetration occurred w ith thin liquid barium, with delayed aspiration. Deep penetration was seen wi th nectar-thickened barium. Please see speech pathology report for additional d etails and recommendations. Narrative 01/31/2020 2:49 PM CDT EXAM: ??FL SWALLOW FUNCTION WITH VIDEO AND SPEECH OR OT FOR RST COMPARISON: ??Video swallow study 2019 Procedure Note Chucho Martínez M.D. - 01/31/2020Forma tting of this note might be different from the original. EXAM: FL SWALLOW FUNCTION WITH VIDEO AND SPEECH OR OT FOR RST COMPARISON: Video swallow study 09/28/19 20 IMPRESSION: A video swallow study was performed in c onjunction with speech pathology using thin liquid barium, nect ar-thickened barium, and applesauce consistency. Deep penetration occurred w ith thin liquid barium, with delayed aspiration. Deep penetration was seen wi th nectar-thickened barium. Please see speech pathology report for additional d etails and recommendations. Summer Pérez P.A.-C. M.S. IMG FLUOROSCOPY PROCEDURES documented in this encounter Visit Diagnoses Diagnosis Malignant Neoplasm Of Supraglottic (HCC) documented in this encounter Administered Medications Inactive Administered Medications - up to 3 most recent administrations Medication Order MAR Action Action Date Dose Rate Site barium 40 % (w/v) oral powder for Given 01/31/2020 2:24 PM CDT 5 0 mL suspension (VARIBAR THIN LIQUID) oral, Code/trauma/sedation medication, Starting on Meredith 01/31/20 at 1424 barium 40 % (w/v) suspension Given 01/31/2020 2:24 PM CDT 20 mL Code/trauma/sedation medication, Starting on Meredith 01/31/20 at 1424 documented in this encounter
--- OUTSIDE RECORDS SUMMARY | 2022-03-31 14:47 | XMS_ITS | Encounter Summary ---
:1955 Author Organization [facility] Address [address] [place] [address] Care Team Providers Name Role Phone Unavailable Primary Care Provider Unavailable Encounter Details Date Type Department Care Team Description 11/29/2019 Ancillary Procedure Department of Oncology Social History [...] do you attend anabaptism or Never 2018 pentecostalism services? Do you [...] Appointment Radiology Mark Eastman M.D., M.S. 200 [place] [phone] 04/26/2022 Office Visit Otorhinolaryngology Roxanne Lanza APRN, C.N.P. [address] [place] [address] [phone] 04/28/2022 Appointment Radiation Oncology Ursula Aguirre M.D. [address] [place] [phone] documented as of this encounter Procedures Procedure Name Priority Date/Time Associated Diagnosis Comme nts ONCOLOGY IMAGE EXAM Routine 11/29/2019 1:30 PM Re sults for this CDT procedure are i n the results section. documented in this encounter Results Oral Cavity-Oncology Image Exam (11/29/2019 1:30 PM CDT) Specimen (Source) Anatomical Collection Method Collection Time Re ceived Time Location / / Volume Laterality 11/29/2019 1:30 PM CDT Narrative [facility] - 11/29/2019 2:21 PM CDT This order has been created [...]
--- OUTSIDE RECORDS SUMMARY | 2022-03-31 14:47 | XMS_ITS | Encounter Summary ---
:1955 Author Organization [facility] Address [address] [place] [address] Care Team Providers Name Role Phone Unavailable Primary Care Provider Unavailable Reason for Visit Reason Onset Date Comments formula 10/16/2019 Encounter Details Date Type Department Care Team Description 10/16/2019 Clinical Communication Division of General Elder, Shahid Cisneros, formula Internal Medicine in [place], [place] [address] [facility] [address] [place] [phone] Social History Tobacco Use Types Packs/Day Years [...] or relatives? How often do you attend spiritism or Never 2018 roman catholic services? Do you belong to any clubs or No 02/21/2019 organizations such as spiritism groups, unions, fraternal or athletic groups, or [...] this encounter Miscellaneous Notes Telephone Encounter - Marie Green, AYLEEN, LD - 10/16/2019 4:16 PM REALTY SPECIALIST Reviewed Authorization to Release Information in medical record. Authorization is on file. Problem: Darlin called back (daughter of patient) Advice given: Darlin noted that Obdulia hasn't ordered tube feeding supplies in 3 months so her orderswere discontinued by Gary which is the usual protocol. For us to re-order them we need to see her in our enteral clinic to be sure the same program is appropriate. From reviewing the medical record she has seen Natasha Brandon RDN in [place] and she suggested the enteral feedings be restarted. Sincenilsa was seen in [place] about a month ago Natasha can prepare the orders for a [place] MD to review and sign to renew them for Ira. For us to do that in [place] we need to see Obdulia. Follow-up plan: Darlin verbalized understanding and she will follow up with the [place] team. TY SPECIALIST Telephone Encounter - Marie Green RDN, JUANITO - 10/16/2019 2:44 PM REALTY SPECIALIST Reviewed Authorization to Release Information in medical record. Authorization is on file. Problem: Received a call to change her enteral formula with Gary. Advice given: Left a message for her that per her medical record on 08/02/19 that her nutrition program is follow locally by her primary MD and Natasha Brandon RDN and [facility]. [facility] his not writing her enteral orders. Follow-up plan: If she would like to return to [place] we would be glad to see her and assess a change in enteral formula as needed. TY SPECIALIST Telephone Encounter - Lucila Briceño Oli - 10/16/2019 1:52 PM CST Patient called Reason for Calling:Formula Detailed Message:The patient requests to have a new formula order send to [facility] Best time to be reached:any time Contact patient by Phone number: Thank you, PLEASE REPLY TO THE SECRETARIAL POOL WHEN REPLYING TO THIS MESSAGE--p RST END VIVIANE NICKERSON. Thank you! TY SPECIALIST documented in this encounter Plan of Treatment Upcoming Encounters Date Type Specialty Care Team Description 04/22/2022 Clinical Admitting/Central Communication Scheduling 04/26/2022 Appointment Radiology Mark Eastman M.D., M.S. [address] [place] [phone] 04/26/2022 Office Visit Otorhinolaryngology Roxanne Lanza APRN, C.N.P. [address] [place] [phone] 04/28/2022 Appointment Radiation Oncology Ursula Aguirre M.D. [address] [place] [phone] documented as of this encounter Visit Diagnoses Not on filedocumented in this encounter
--- OUTSIDE RECORDS SUMMARY | 2022-03-31 14:47 | XMS_ITS | Encounter Summary ---
:1955 Author Organization [facility] Address [address] [place] [address] Care Team Providers Name Role Phone Unavailable Primary Care Provider Unavailable Encounter Details Date Type Department Care Team Description 10/17/2019 Clinical Communication Department of Ursula Aguirre Radiation Oncology in [place] Bacon [place], [place] [address] [facility] [address] [place] [phone] Social History Tobacco Use Types Packs/Day Years [...] or relatives? How often do you attend jew or Never 2018 zoroastrianism services? Do you belong to any clubs or No 02/21/2019 organizations such as jew groups, unions, fraternal or athletic groups, or [...] this encounter Miscellaneous Notes Telephone Encounter - Kaitlynn Kamara Jovanna - 10/17/2019 9:30 AM CST Caller: Darlin - Daughter Is there a valid authorization to speak with caller? Yes Primary Radiation Oncologist: Dr. Aguirre Reason for call: Needs a refill for her feeding tube formula. Darlin called [facility] to get refilled, but they said they would have to see Obdulia prior to refilling...They told her since she is being seen here by carter and followed by LILLIE that we could take care of it??? Phone number: mobile Is it okay to leave a voicemail on answering machine with test results? Yes Pharmacy (if medication related): [facility] [address] [place] [address] - [address] [place] [address] [address] [facility] [address] Kaitlynn Kamara UNLOADER documented in this encounter Plan of Treatment Upcoming Encounters Date Type Specialty Care Team Description 04/22/2022 Clinical Admitting/Central Communication Scheduling 04/26/2022 Appointment Radiology Mark Eastman M.D., M.S. [address] [place] [phone] 04/26/2022 Office Visit Otorhinolaryngology Roxanne Lanza, BULK CLERK, C.N.P. [address] [place] [phone] 04/28/2022 Appointment Radiation Oncology Ursula Aguirre M.D. [address] [place] [phone] documented as of this encounter Visit Diagnoses Not on filedocumented in this encounter
--- OUTSIDE RECORDS SUMMARY | 2022-03-31 14:47 | XMS_ITS | Encounter Summary ---
:1955 Author Organization [facility] Address [address] [place] [address] Care Team Providers Name Role Phone Unavailable Primary Care Provider Unavailable Reason for Referral Speech Pathology (Routine) - Closed Specialty Diagnoses / Procedures Referred By Contact Refer red To Contact Diagnoses Malignant Neoplasm Of Supraglottic (HCC) Summer Pérez P.A.-C., [place] Reg ion Procedures DATA PROCESSING SPECIALIST - Ongoing treatment M.S. 200 [place] [phone] Referral ID Status Reason Start Date Expiration Date Visits Requ ested Visits Authorized [id number] Closed 10/15/2019 10/14/2020 1 1 [place] Outpatient (Routine) - Closed Specialty Diagnoses / Procedures Referred By Contact Refer red To Contact Diagnoses Malignant Neoplasm Of Supraglottic (HCC) Summer Pérez P.A.-C. [place] Reg ion Procedures FL Swallow Function with Video and Speech or OT M.S. 200 [place] [phone] Referral ID Status Reason Start Date Expiration Date Visits Requ ested Visits Authorized [id number] Closed 10/15/2019 10/14/2020 1 1 [place] Speech Pathology (Routine) - Closed Specialty Diagnoses / Procedures Referred By Contact Refer red To Contact Diagnoses Malignant Neoplasm Of Supraglottic (HCC) Summer Pérez P.A.-C., [place] Reg ion Procedures DATA PROCESSING SPECIALIST Dysphagia evaluate and treat M.S. [address] [place] [phone] Referral ID Status Reason Start Date Expiration Date Visits Requ ested Visits Authorized [id number] Closed 10/15/2019 10/14/2020 1 1 [place] Encounter Details Date Type Department Care Team Description 10/15/2019 Orders Only Department of Summer Pérez, Malignant Joao plasm Of Radiation Oncology in [place] Torres Supraglottic [facility]HCC) [facility] [address] [facility] (Primary Dx) [address] [place] [phone] Social History Tobacco Use Types Packs/Day Years [...] do you attend anabaptism or Never 2018 jain services? Do you belong to any clubs [...] Appointment Radiology Mark Eastman M.D., M.S. [address] [place] [phone] 04/26/2022 Office Visit Otorhinolaryngology Roxanne Lanza APRN, C.N.P. [address] [place] [phone] 04/28/2022 Appointment Radiation Oncology Ursula Aguirre M.D. [address] [place] [phone] documented as of this encounter Results FL Swallow Function with [...] additional d etails and recommendations. Summer Pérez P.A.-C., M.S. IMG FLUOROSCOPY PROCEDURES documented in this encounter Visit Diagnoses Diagnosis Malignant Neoplasm Of Supraglottic (HCC) - Primary Malignant Neoplasm Of Supraglottic (HCC) documented in this encounter
--- OUTSIDE RECORDS SUMMARY | 2022-03-31 14:47 | XMS_ITS | Encounter Summary ---
:1955 Author Organization [facility] Address [address] [place] [address] Care Team Providers Name Role Phone Unavailable Primary Care Provider Unavailable Encounter Details Date Type Department Care Team Description 11/26/2019 Clinical Communication Department of Ursula Aguirre Radiation Oncology [place] [address] [facility] [address] [place] [address] [phone] Social History Tobacco Use Types Packs/Day Years [...] or relatives? How often do you attend samaritan or Never 2018 rastafari services? Do you belong to any clubs or No 02/21/2019 organizations such as samaritan groups, unions, fraternal or athletic groups, or [...] Appointment Radiology Mark Eastman M.D., M.S. [address] [place] [phone] 04/26/2022 Office Visit Otorhinolaryngology Roxanne Lanza APRN, C.N.P. [address] [place] [address] [phone] 04/28/2022 Appointment Radiation Oncology Ursula Aguirre M.D. [address] [place] [address] [phone] documented as of this encounter Visit Diagnoses Not on filedocumented in this encounter
--- OUTSIDE RECORDS SUMMARY | 2022-03-31 14:47 | XMS_ITS | Encounter Summary ---
:1955 Author Organization [facility] Address [address] [place] [address] Care Team Providers Name Role Phone Unavailable Primary Care Provider Unavailable Encounter Details Date Type Department Care Team Description 01/30/2020 Clinical Communication Department of Ursula Aguirre Radiation Oncology [place] [address] [facility] [address] [place] [address] [phone] Social History Tobacco Use Types Packs/Day Years [...] or relatives? How often do you attend taoist or Never 2018 rastafari services? Do you belong to any clubs or No 02/21/2019 organizations such as taoist groups, unions, fraternal or athletic groups, or [...] this encounter Miscellaneous Notes Telephone Encounter - Jannet Cross R.NShital - 01/30/2020 4:13 PM CDT Information Discussed I attempted to call Darlin back and left voicemail stating my name and that this was in regards to follow up appointment schedule for tomorrow. PLAN Please refer to Ashley Dc RN documentation for further details. Disposition/Recommendation: Voicemail left Information/Education: not applicable Caller agreeable to plan of care: no not applicable The following references were used: nursing clinical judgement Telephone Encounter - Terri Orellanascarlet Chaidez - 01/30/2020 2:50 PM CDT Caller: Darlin Is there a valid authorization to speak with caller? Yes Primary Radiation Oncologist: Dr. Aguirre Reason for call: Ms. Narayan's daughter, Darlin, called regarding Obdulia's feeding tube. She said it keeps falling out. She called GI in [place], and they told her to go to the ED. Darlin really doesn't want to have to take her to the ED and finds that unnecessary. The patient has appointments in [place] tomorrow so she would like help getting the patient set up to see someone in [place] tomorrow. However, Darlin also states that Obdulia wants the feeding tube removed permanently. She would appreciate a call back to discuss all of this. Phone number: [phone] Is it okay to leave a voicemail on answering machine with test results? No Pharmacy (if medication related): N/A Ayla Orellana documented in this encounter Plan of Treatment Upcoming Encounters Date Type Specialty Care Team Description 04/22/2022 Clinical Admitting/Central Communication Scheduling 04/26/2022 Appointment Radiology Mark Eastman M.D., M.S. [address] [place] [phone] 04/26/2022 Office Visit Otorhinolaryngology Roxanne Lanza APRN, C.N.P. [address] [place] [address] [phone] 04/28/2022 Appointment Radiation Oncology Ursula Aguirre M.D. [address] [place] [phone] documented as of this encounter Visit Diagnoses Not on filedocumented in this encounter
--- OUTSIDE RECORDS SUMMARY | 2022-03-31 14:47 | XMS_ITS | Encounter Summary ---
:1955 Author Organization [facility] Address [address] [place] [address] Care Team Providers Name Role Phone Unavailable Primary Care Provider Unavailable Reason for Visit Reason Comments Tube Problem Encounter Details Date Type Department Care Team Description 10/31/2019 Clinical Communication Division of Padma Vieira Problem Endocrinology in A, HUMAN SERVICES SUPERVISOR, C.N.P., [facility].S. [address] [facility] [address] [place] [phone] Social History Tobacco Use Types Packs/Day Years [...] do you attend anabaptism or Never 2018 jainism services? Do you [...] this encounter Miscellaneous Notes Telephone Encounter - Chio Whitaker, RShitalN. - 10/31/2019 1:20 PM CDT SUBJECTIVE CHIEF COMPLAINT / REASON FOR CALL Tube Problem ASSESSMENT I returned Darlin's call regarding Ms. Narayan's tube. She tells me that when they flush water in thetube too fast the tubes pops out. I asked her to describe this and she tells me that it's not secure in the stomach anymore, that bubble isn't there anymore. She also reports increasing leaking. She reports the skin disk is at about 3. At the time of her last appointment at [facility] the skin disk was at a 4. PLAN I discussed with Darlin that the tube is due for replacement and I worry that the balloon is now low and the tube may fall out. I will arrange for a tube replacement this week. Disposition/Recommendation: self-care is appropriate at this time, patient encouraged to call back with questions. Information/Education: patient/caller able to teach back. Caller agreeable to plan of care: yes. The following references were used: nursing clinical judgment. Telephone Encounter - Alethea Fox - 10/31/2019 12:54 PM CDT Name of caller: Darlin Relationship to patient: Daughter in law Authorization on file to talk to caller: yes Reason for Calling: Flushing pushes tube out Detailed Message: Darlin states whenever Obdulia tries to flush her feeding tube, it pushes it out andit appears its about to fall out. Best time to be reached: Any Phone number for caller: [phone] Thank you, Miguel PLEASE REPLY TO THE SECRETARIAL POOL WHEN REPLYING TO THIS MESSAGE--p RST END VIVIANE NICKERSON. Thank you! documented in this encounter Plan of Treatment Upcoming Encounters Date Type Specialty Care Team Description 04/22/2022 Clinical Admitting/Central Communication Scheduling 04/26/2022 Appointment Radiology Mark Eastman M.D., M.S. [address] [place] [phone] 04/26/2022 Office Visit Otorhinolaryngology Roxanne Lanza APRN, C.N.P. [address] [place] [phone] 04/28/2022 Appointment Radiation Oncology Ursula Aguirre M.D. 200 [place] [phone] documented as of this encounter Visit Diagnoses Not on filedocumented in this encounter
--- OUTSIDE RECORDS SUMMARY | 2022-03-31 14:47 | XMS_ITS | Encounter Summary ---
:1955 Author Organization [facility] Address [address] [place] [address] Care Team Providers Name Role Phone Unavailable Primary Care Provider Unavailable Reason for Referral Outpatient (Routine) - Closed Specialty Diagnoses / Procedures Referred By Contact Refer red To Contact Endocrinology Padma Vieira APRN, [facility] C.N.PShital, M.S. [address] [place] [phone] Referral ID Status Reason Start Date Expiration Date Visits Requ ested Visits Authorized [id number] Closed 01/30/2020 01/29/2021 1 1 Encounter Details Date Type Department Care Team Description 01/30/2020 Orders Only Division of Endocrinology in [place], [place] R.N. [address] [place] [address] [place] [phone] [place], [place] [phone] Social History Tobacco Use Types Packs/Day Years [...] or relatives? How often do you attend adventism or Never 2018 alevism services? Do you belong to any clubs or No 02/21/2019 organizations such as adventism groups, unions, fraLOOKSIMA or athletic groups, or school groups? How [...] Appointment Radiology Mark Eastman M.D., M.S. [address] [place] [phone] 04/26/2022 Office Visit Otorhinolaryngology Roxanne Lnaza, NITROGLYCERIN NEUTRALIZER, C.N.P. [address] [place] [phone] 04/28/2022 Appointment Radiation Oncology Ursula Aguirre M.D. [address] [place] [phone] Scheduled Referrals Name Type Priority Associated Order Schedule Diagnoses Endocrinology nurse Outpatient Referral Routine E xpected: visit (clinic) 01/31/2020, Expires: 01/29/2023 documented as of this encounter Visit Diagnoses Not on filedocumented in this encounter
--- OUTSIDE RECORDS SUMMARY | 2022-03-31 14:47 | XMS_ITS | Encounter Summary ---
:1955 Author Organization [facility] Address [address] [place] [address] Care Team Providers Name Role Phone Unavailable Primary Care Provider Unavailable Reason for Visit Reason Comments Appointment Encounter Details Date Type Department Care Team Description 02/12/2020 Documentation [facility] Appointment [place], [place] M.A.N., R.N. [address] [facility] [address] [place] [phone] [place], [place] [phone] Social History Tobacco Use Types Packs/Day Years [...] or relatives? How often do you attend yarsani or Never 2018 hoahaoism services? Do you belong to any clubs or No 02/21/2019 organizations such as yarsani groups, unions, fraternal or athletic groups, or [...] documented as of this encounter Progress Notes Dolores Lucio RShitalN. - 02/12/2020 2:43 PM CDT Orders in for PEG tube removal. Patient currently has a 8100-20, last replaced in GI on 11/02/2019. 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 She is not currently on any anticoagulants. She had a swallow study on 01/30 that stated moderate oropharyngeal dysphagia. She will need to be seen in HEN clinic by RN and provider. No RDN needed, per Marie Green RDN, as she stated patient seen by local RDN and meets criteria for removal. Tube will be removed in HEN clinic, if she meets criteria. Request is for next available. documented in this encounter Plan of Treatment Upcoming Encounters Date Type Specialty Care Team Description 04/22/2022 Clinical Admitting/Central Communication Scheduling 04/26/2022 Appointment Radiology Mark Eastman M.D., M.S. [address] [place] [phone] 04/26/2022 Office Visit Otorhinolaryngology Roxanne Lanza APRN, C.N.P. [address] [place] [phone] 04/28/2022 Appointment Radiation Oncology Ursula Aguirre M.D. [address] [place] [phone] documented as of this encounter Visit Diagnoses Not on filedocumented in this encounter
--- OUTSIDE RECORDS SUMMARY | 2022-03-31 14:47 | XMS_ITS | Encounter Summary ---
:1955 Author Organization [facility] Address [address] [place] [address] Care Team Providers Name Role Phone Unavailable [...] or relatives? How often do you attend sikh or Never 2018 adventism services? Do you belong to any clubs or No 02/21/2019 organizations such as sikh groups, unions, fraternal or athletic groups, or [...] Appointment Radiology Mark Eastman M.D., M.S. 200 [place] [phone] 04/26/2022 Office Visit Otorhinolaryngology Roxanne Lanza APRN, C.N.P. [address] [place] [phone] 04/28/2022 Appointment Radiation Oncology Ursula Aguirre M.D. [address] [place] [phone] documented as of this encounter Procedures Procedure Name Priority Date/Time Associated Diagnosis Comme nts ONCOLOGY IMAGE EXAM Routine 11/29/2019 1:35 PM Re sults for this CDT procedure are i n the results section. documented in this encounter Results Video-Oral Cavity-Oncology Image Exam (11/29/2019 1:35 PM CDT) Specimen (Source) Anatomical Collection Method Collection Time Re ceived Time Location / / Volume Laterality 11/29/2019 1:30 PM CDT Narrative [facility] - 11/29/2019 2:22 PM CDT This order has been created [...]
--- OUTSIDE RECORDS SUMMARY | 2022-03-31 14:47 | XMS_ITS | Encounter Summary ---
:1955 Author Organization [facility] Address [address] [place] [address] Care Team Providers Name Role Phone Unavailable Primary Care Provider Unavailable Reason for Referral Outpatient (Routine) - Canceled Specialty Diagnoses / Procedures Referred By Contact Refer red To Contact Nutrition Diagnoses Malignant Neoplasm Of Supraglottic (HCC) Ursula Aguirre M.D. [address] [phone] Referral ID Status Reason Start Date Expiration Date Visits V isits Requested Authorized [id number] Canceled 08/30/2019 08/29/2020 1 1 Reason for Visit Outpatient (Routine) - Canceled Specialty Diagnoses / Procedures Referred By Contact Refer red To Contact Nutrition Diagnoses Malignant Neoplasm Of Supraglottic (HCC) Ursula Aguirre M.D. [facility] Region [address] [place] [phone] Referral ID Status Reason Start Date Expiration Date Visits V isits Requested Authorized [id number] Canceled 08/30/2019 08/29/2020 1 1 Encounter Details Date Type Department Care Team Description 02/07/2020 Hospital Encounter Department of Mary Aguirre M.D. [address] [place] [phone] Malignant Neoplasm Radiation Oncology Natasha [place], RDN [address] [place] [phone] Of Supraglottic in [place], ([facility]) [place] [address] [facility] [place] [phone] Social History Tobacco Use Types Packs/Day Years [...] or relatives? How often do you attend shinto or Never 2018 amish services? Do you belong to any clubs or No 02/21/2019 organizations such as shinto groups, unions, fraternal or athletic groups, or [...] Pressure - - Pulse - - Temperature 37 ??C (98.6 ??F) 02/07/2020 2:19 PM CDT Respiratory Rate - - Oxygen [...] mg tablet potassium chloride Daily 0 04/21/20182021 (ANISH Mendez/KEMAL) 20 mEq ER tablet documented as of this encounter Progress Notes Natasha [place], AYLEEN - 02/07/2020 2:00 PM CDT CHIEF COMPLAINT/REASON FOR VISIT Malignant Neoplasm Of Supraglottic (HCC) (C32.1) ?? HISTORY OF PRESENT ILLNESS Mrs. 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 Radiotherapy to the supraglottic tumor initiated on March 26, 2019; completed April,. ?? Met with patient. Patient is hard of hearing and reads lips. For phone contact Merlin (son) states, his Darlin is the one to call, . ?? ASSESSMENT Relevant Social and Family History?? She lives in [place], [place] with her son Merlin and his Darlin. During the week while undergoing treatment lives in [place] with a different son. She is . She has 4 sons, 10 grand children and 2 great grandchildren. 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 She has a 40 year history of smoking 2.5 to 0.75 packs per day. She has been working to quit smoking. She does not drink alcohol. ?? Medical Tests and Procedures/Biochemical Data PEG replacement on 11/02/19 ?? Swallow evaluation on??01/31/20 Recommendations: 1. Patient is safe to consume soft/moist foods and thin liquids. 2. Patient is recommended to take small sips, small bites, and clear her throat throughout the meal. 3. It is recommended she continue swallowing exercises daily. 4. Follow-up with speech pathology should symptoms of dysphagia change or worsen. ?? Nutrition Focused Physical Findings Mouth/throat/esophagus: no throat pain. Denies difficulty swallowing. She continues to do her swallowing exercises. Nausea/vomiting: denies nausea or vomiting Bowels:??normal ?? Tube Information Gastrostomy tube initially placed by GI 04/17/19 and replaced 11/02/19 LEONARDO 20 Beninese balloon gastrostomy, ENFit connector ?? Food/Nutrient Related History She reports that she stopped using her feeding tube on January 11 and is taking all food and fluids orally. She continues to do minimal water flushes through her tube (1-2 syringes, 3 times per day). Breakfast is 2 or 3 eggs, 2 or 3 slices of toast, grits, water and coffee, Lunch is a sandwich or soup with chips or Beninese fries and water or tea. Supper is chicken fried steak, fried chicken or pork chops with potatoes, gravy, vegetable and water, tea or chocolate milk. She likes to have cottage cheese and peaches for a snack. ?? Weight History Current weight 74.4??kg - 6.1??kg increase??since 11/29/19 ??Height: 167 cm BMI: 26.7??kg/m2 Usual body weight: 230# (104.5 kg) last year, per patient 03/16/19: 88.5 kg 03/28/19: 87.7 kg 04/04/19: 86.3 kg 04/11/19: 83.5 kg 04/12/19: 82.5 kg--5.8% loss from treatment start weight 04/18/19: 83.6 kg 04/26/19: 82.4 kg 05/03/19: 81.3 kg 05/24/19: 75.0 kg 06/14/19: 73.7 kg 08/03/19: 68.6 kg 08/30/19: 66.8 kg?? 09/20/19: 63.2 kg 10/18/19: 67.0 kg 11/29/19: 68.3 kg ?? Estimation of Nutritional Needs using 74.4 kg (02/07/20) and 167 cm 1650 calories/day (HB basal + 20%) 75 grams protein/day (1 gram/kg) 1860 to 2230 mL fluid/day (25 to 30 mL/kg) ?? Assessment Summary Obdulia Narayan is tolerating oral intake and has been consuming all foods and fluids orally for the last 4 weeks. She is meeting estimated nutrition needs and has been gradually gaining weight since 09/20/19. BMI is slightly above normal at 26.7 kg/m2. She reports feeling good at this weight and would like to maintain her current weight. Recommend feeding tube removal. Discussed with Summer Pérez PA-C, MS. NUTRITION DIAGNOSIS Inadequate oral intake (NI-2.1) related to side-effects of treatment as evidenced by weight loss anddiet history. Resolved. ?? Unintentional weight loss related to cancer as evidenced by approximate 16.8 kg weight loss in the last year prior to treatment per patient report and 5.8% weight loss prior to tube feeding placement. Resolved. ?? Food- and nutrition-related knowledge deficit related to Cancer with radiation therapy as evidenced by need for nutrition education to maintain weight and nutrition status post treatment. Resolved. ?? INTERVENTION Discussed balancing meals using the [employer] My Plate. Also discussed listening to hunger and fullnesscues. Reviewed nutrition needs and fluid goals. ?? Care Coordination Authorization on file to speak with DME/Infusion Company: yes DME/Infusion Company that will provide needed supplies for home: [employer]. Steiner reports she notified Gary to stopping sending tube feeding formula. ? MONITORING AND EVALUATION Nutrition parameter to monitor: Weight Desired Outcome: maintain weight Patient Goal(s): 1. Soft/moist diet with 3 meals per day and snacks as needed. 2. 8-9 cups total fluid by mouth to meet estimated fluid needs. 3. Continue with minimal water flushes through tube until feeding tube is removed. Follow-up Plan Follow up further as needed. ?? Time spent with patient (minutes):15 ? documented in this encounter Plan of Treatment Upcoming Encounters Date Type Specialty Care Team Description 04/22/2022 Clinical Admitting/Central Communication Scheduling 04/26/2022 Appointment Radiology Mark Eastman M.D., M.S. [address] [place] [address] [phone] 04/26/2022 Office Visit Otorhinolaryngology Roxanne Lanza APRN, C.N.P. [address] [place] [address] [phone] 04/28/2022 Appointment Radiation Oncology Ursula Aguirre M.D. [address] [place] [address] [phone] Scheduled Referrals Name Type Priority Associated Diagnoses Order S chedule Nutrition - Outpatient Referral Routine Malignant Neoplasm On ce for 1 Medical nutrition Of Supraglottic Occurre nces therapy consult (HCC) starting (clinic) until 0 documented as of this encounter Visit Diagnoses Diagnosis Malignant Neoplasm Of Supraglottic (HCC) documented in this encounter
--- OUTSIDE RECORDS SUMMARY | 2022-03-31 14:48 | XMS_ITS | Encounter Summary ---
:1955 Author Organization [facility] Address [address] [place] [id number] Care Team Providers Name Role Phone Unavailable Primary Care Provider Unavailable Reason for Visit Speech Pathology (Routine) - Closed Specialty Diagnoses / Procedures Referred By Contact Refer red To Contact Diagnoses Malignant Neoplasm Of Supraglottic (HCC) Summer Pérez P.A.-C., [facility] NUTRITION SPECIALIST Dysphagia evaluate and treat M.S. [address] [place] [phone] Referral ID Status Reason Start Date Expiration Date Visits Requ ested Visits Authorized [id number] Closed 09/11/2019 09/10/2020 1 1 Encounter Details Date Type Department Care Team Description 09/28/2019 Comprehensive Visit Department of Summer Pérez P.A.-C., M.S. [address] [place] [phone] Dysphagia Oropharyngeal Phase (Primary D x); Neurology in Bia Linton M.S., [facility]-NUTRITION SPECIALIST [address] [place] [phone] Malignant Neoplasm Of Supraglottic (HCC) [place], [place] [address] [place] [phone] Social History Tobacco Use Types Packs/Day Years [...] or relatives? How often do you attend zoroastrian or Never 2018 presybeterian services? Do you belong to any clubs or No 02/21/2019 organizations such as zoroastrian groups, unions, fraternal or athletic groups, or [...] documented as of this encounter Consult Notes Bia Linton M.S., CCC-NUTRITION SPECIALIST - 09/28/2019 1:00 PM CST Speech Pathology Dysphagia Videofluoroscopic Swallow Study (VFSS) Outpatient Session Type: Evaluation Length of session: 90 minutes SUBJECTIVE Referred By: Summer Pérez P.A.-C. MShitalSShital Reason for Consult: Dysphagia History: Mrs. Narayan is a very pleasant 64-year-old female who was referred by radiation oncology for a swallowing evaluation following completion of radiation treatment. Her past medical history significant for cT2 N0 M0 supraglottic laryngeal SCC status post definitive radiation treatment from 03/26/2019-. A PEG tube was placed on 04/17/2019. She was originally scheduled for a post-radiation swallow study in July 2019 and then again in August 2019, but is unfortunately unable to keep both of those appointments due to various medical issues. Her initial video fluoroscopic swallow study was completed on 03/28/2019, and was notable for mild pharyngeal dysphagia characterized primarily by mild pharyngeal weakness. There was 1 episode of laryngeal penetration of thin liquids, but no aspiration was observed. Please refer to the EMR for complete medical history and details of prior evaluations. Mrs. Narayan was accompanied by her [id number] to today's appointment. She reports that, in general, swallowing is going quite well. She is able to consume soft solid textures (potatoes, macaroni and cheese, cream of wheat) and thin liquids without significant difficulty. She avoids foods that are more difficult to chew, but this is more so related to dentition rather than dysphagia. She wears upper and lower dentures for eating but notes that is in need of new dentures. She does not feel as though solids or liquids stick in her throat or go down the wrong pipe on a regular basis. She takes her pills with water without difficulty. She continues to use her PEG tube for supplemental nutrition, due to ongoing weight loss. She frequently sips on water throughout the day due to dry mouth. She endorses odynophagia that can reach 4/10 severity, but is improved to 0/10 with ibuprofen. She has not had any recent pneumonias. She has not noticed any symptoms of reflux. She has experienced voice changes since finishing radiation and notes that her voice is more weak and breathy than usual. She vaguely recalls being instructed in swallowing exercises during her initial Speech Pathology visit, but hasnot been completing exercises at home. Referral to Speech Pathology included orders for a clinical swallowing evaluation and videofluoroscopic swallow study, allowing for comprehensive assessment of the oral and pharyngeal stages of the swallow. OBJECTIVE Oral Motor: Dentition: Edentulous Labial ROM: (0) Within Normal Limits (WNL) Labial Retraction Left: (0) Within Normal Limits (WNL) Labial Retraction Right: (0) Within Normal Limits (WNL) Labial Symmetry: (0) Within Normal Limits (WNL) Labial Strength Left: (0) Within Normal Limits (WNL) Labial Strength Right: (0) Within Normal Limits (WNL) Facial Symmetry: (0) Within Normal Limits Lingual ROM: (0) Within Normal Limits (WNL) Lingual Lateralization Left: (0) Within Normal Limits (WNL) Lingual Lateralization Right: (0) Within Normal Limits (WNL) Lateral Lingual Strength Left: (0) Within Normal Limits (WNL) Lateral Lingual Strength Right: (0) Within Normal Limits (WNL) Palatal Symmetry at Rest: Within Normal Limits (WNL) Palatal Symmetry with Phonation: Within Normal Limits (WNL) Mandible Strength: (0) Within Normal Limts Laryngeal Cough: (0) Within Normal Limts Motor Speech: Voice: Impaired Breathiness: (-4) Profound Harsh: (1) Mild Resonance (GRINDER OPERATOR SURFACE TOOL Function)): Within Normal Limits (WNL) Articulation: Impaired Imprecise/Disorted Consonants: (1) Mild(consistent with edentulous state) Rate and Prosody: Within Normal Limits (WNL) Speech AMRs: Within Normal Limits Speech SMRs: Within Normal Limits Intelligibility: Intelligibility reduced Intelligibility Sentence: Mild Intelligibility Connected Speech/Conversation: Mild Vocal Intensity: Mildly decreased Most Recent Value Description of Procedure Previous MBS/VFSS Yes Results and Recommendations Mar 2019 Planes Tested Lateral, AP Radiologist [place] Type Assessment MBS IMP Statement of Consent Yes, Discussed goals, risks, alternatives, and the necessity of other members of the procedureal team participating in the procedure with the patient., The patient understands and wishes to proceed Thin Lip Closure 0: No labial escape [...] Residue Location Diffuse (>3 areas) Penetration/Aspiration Scale 8: Material enters the airway, passes below the vocal folds, and no effort is made to eject Penetration Yes, during the swallow Aspiration Yes, after the swallow Sterrett Presentation Cup, Self Fed Patient Positioning Upright in chair Lip Closure 0: No labial escape Tongue [...] Residue Location Diffuse (>3 areas) Penetration/Aspiration Scale 8: Material enters the airway, passes below the vocal folds, and no effort is made to eject Penetration Yes, during the swallow Aspiration Yes, after the swallow Puree Presentation Self Fed, Spoon Patient Positioning Upright in chair Lip Closure 0: No labial escape Tongue [...] Residue Location Diffuse (>3 areas) Penetration/Aspiration Scale 5: Material enters the airway, contacts the vocal folds, and is not ejected from the airway. Penetration Cough/throat clear ineffective Aspiration No MBSImP Scores Oral Impairment Score 1 Pharyngeal Impairment Score 5 Performance Status Scale for Head and Neck Cancer Patients (PSS-HN): Yes Eating in Public: 25: Eats only at home in presence of selected persons Understandability of Speech: 50: Usually understandable, [id number] contact necessary Normalcy of Diet: 50: Soft, chewable foods, (e.g. macaroni, canned/soft fruits, cooked vegetables, fish, hamburger, small pieces of meat) Assessment Clinical swallowing evaluation and videofluoroscopic swallow study (VFSS) were completed during today's visit. Please refer to Objective section for details of the CSE which was notable for severely breathy vocal quality. During the videofluoroscopic swallow study images were recorded as the patient swallowed thin barium, nectar-thick barium (A-P view only), and applesauce mixed with barium paste. The cookie was deferred as the patient did not have her dentures with her today. Epiglottis and arytenoids appeared somewhat thick/blunted during today's evaluation. Oral stage was unremarkable for the consistencies administered. Occasional trace lingual residue with applesauce and nectar-thick liquid was effectively cleared with a spontaneous second swallow. Pharyngeal stage was characterized by mildly delayed pharyngeal trigger (to the valleculae with liquids), mildly reduced tongue base retraction and pharyngeal stripping wave, incomplete and ineffective epiglottic inversion, reduced laryngeal elevation, and incomplete laryngeal vestibular closure. There was laryngeal penetration during and after the swallow with thin and nectar-thick liquids today. Contrastreached the vocal folds after the swallow and was not expelled despite several cued throat clears and coughs. Eventually, trace contrast did pass below the vocal folds and slowly progressed down the anterior tracheal wall; patient was not sensate to this. There was laryngeal penetration but no observed aspiration with applesauce. Supraglottic swallow maneuver was trialed (Series 2) but was ineffective for improving supraglottic closure during the swallow. Head turn to the R very slightly reduced theamount of laryngeal penetration during the swallow with thin liquid, but did not significantly impact laryngeal penetration after the swallow. Head turn L did not improve airway protection. After each swallow there was diffuse trace residue of all consistencies in the pharynx, that gradually progressed into the laryngeal vestibule. Cued dry swallows were helpful for slightly reducing, but not completely clearing, pharyngeal residue. Summary: Mrs. Narayan presents with moderate-severe pharyngeal dysphagia following radiation treatment for laryngeal carcinoma. Deficits are primarily characterized by mild diffuse pharyngeal weakness, reduced supraglottic closure, and ineffective cough. There was laryngeal penetration with thin liquids, nectar -thick liquids, and applesauce on today's study. There was also trace silent aspiration of thin and nectar-thick liquid residue which was not expelled despite several cued coughs/throat clears. A head turn to the right slightly reduced the amount of penetration with nectar-thick liquids, but did not co mpletely eliminate it. The images of today's swallow study were reviewed in detail with the patient and her [id number], who asked several thoughtful questions which were answered to their satisfaction within the NUTRITION SPECIALIST scope of practice. We discussed that the results of today's evaluation suggest that she will likely be at risk for aspiration with oral intake. However, the fact that she has been eating by mouth since finishing radiation in April and has not had a pneumonia is is encouraging. I recommended that she continue to use her PEG tube for her primary source of nutrition and hydration, while also continuing to have small amounts of food/liquid by mouth with adherence to swallowing strategies. We discussed that these strategies do not completely eliminate her risk for aspiration, but they may reduce that risk. I recommended that she closely monitor for s/s respiratory infections and to notify her doctors if she experiences any of these symptoms, at which time we would likely re-evaluate the below diet recommendations. I provided also education regarding the role of swallowing exercises during and after radiation, andwe discussed the goal of maintaining swallow function for as long as possible with adherence to a consistent exercise program. I provided review and demonstration in exercises today (Olga, effortful swallow, CTAR) and she easily and correctly returned demonstration for each. Exercise instructions and recommended frequency/duration were printed and given to Mrs. Narayan. I also provided her with information and a printed handout regarding the potential benefits of EMST. Finally, we discussed the importance of regular, thorough oral cares. I provided her with my card and encouraged her to contact me with any questions or concerns that may arise after today's visit. Recommendations: 1. Continue using your PEG tube for your primary [...] on purpose and immediately re-swallow your saliva. 4. Frequent oral care to reduce oral bacteria as able 5. Closely monitor for s/s aspiration and s/s of a respiratory infection, and notify your doctor if symptoms are observed 6. Swallow strengthening exercise program - Olga, effortful swallow, CTAR (x15/ea, 3x/day, x4wks).Patient to request follow up therapy appt if she is able to obtain EMST device 7. Repeat VFSS approximately 4-6 weeks from 09/28, or sooner should dysphagia symptoms worsen. VFSS can be scheduled in conjunction with other Rad Onc or ENT appts if this is more convenient. Select images from today's evaluation are available for review on [employer] Diagnosis: Moderate-severe pharyngeal dysphagia following radiation treatment for laryngeal carcinoma Functional Oral Intake Scale: Level 3 - Tube dependent with consistent oral intake of food or liquid Plan Follow-up with Speech Pathology as an outpatient should dysphagia symptoms worsen or as deemed appropriate by the referring physician. 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 [address] [place] [phone] 04/26/2022 Office Visit Otorhinolaryngology Roxanne Lanza APRN, C.N.P. [address] [place] [phone] 04/28/2022 Appointment Radiation Oncology Ursula Aguirre M.D. [address] [place] [address] [phone] documented as of this encounter Visit Diagnoses Diagnosis Dysphagia Oropharyngeal Phase - Primary Malignant Neoplasm Of Supraglottic (HCC) documented in this encounter
--- OUTSIDE RECORDS SUMMARY | 2022-03-31 14:48 | XMS_ITS | Encounter Summary ---
:1955 Author Organization [facility] Address [address] [place] [address] Care Team Providers Name Role Phone Unavailable Primary Care Provider Unavailable Encounter Details Date Type Department Care Team Description 08/02/2019 Ancillary Procedure Department of Otorhinolaryngology Social History Tobacco Use Types Packs/Day Years Used Date Smoking Tobacco: Former Cigarettes Quit : 03/13/2019 Smokeless Tobacco: Never Alcohol Habits Answer Date Recorded How often [...] you attend jehovah's witness or Never 2018 faith services? Do you [...] Radiology Mark Eastman M.D., M.S. [address] [place] [phone] 04/26/2022 Office Visit Otorhinolaryngology Roxanne Lanza APRN, C.N.P. [address] [place] [phone] 04/28/2022 Appointment Radiation Oncology Ursula Aguirre M.D. [address] [place] [address] [phone] documented as of this encounter Procedures Procedure Name Priority Date/Time Associated Comments Diagnosis OTORHINOLARYNGOLOGY IMAGE Routine 08/02/2019 11:30 Results for this EXAM AM [facility] procedure are i n the results section. documented in this encounter Results Direct Laryngoscopy-Otorhinolaryngology Image Exam (08/02/2019 11:30 AM [facility]) Specimen (Source) Anatomical Collection Method Collection Time Re ceived Time Location / / Volume Laterality 08/02/2019 11:30 AM [facility] Narrative IIMS - 08/02/2019 11:38 AM [facility] This order has been created and auto-finalized [...]
--- OUTSIDE RECORDS SUMMARY | 2022-03-31 14:48 | XMS_ITS | Encounter Summary ---
:1955 Author Organization [facility] Address [address] [place] [phone] Care Team Providers Name Role Phone Unavailable Primary Care Provider Unavailable Reason for Visit Outpatient (Routine) - Closed Specialty Diagnoses / Procedures Referred By Contact Refer red To Contact Diagnoses Malignant Neoplasm Of Supraglottic (HCC) Summer Pérez P.A.-C., [place] Reg ion Procedures PET CT Skull to Thigh FDG AK PET/CT TRUNK M.S. [address] [place] [phone] Referral ID Status Reason Start Date Expiration Date Visits Requ ested Visits Authorized [id number] Closed 06/14/2019 06/13/2020 1 1 Encounter Details Date Type Department Care Team Description 07/27/2019 Hospital Encounter Department of Summer Pérez Cancele d (Patient: Radiology, Malcom Torres, M.S . Request) [facility], in [address] [place] [phone] [place], [place] [phone] (Work) [phone] Social History Tobacco Use Types Packs/Day Years [...] do you attend mormonism or Never 2018 hoahaoism services? Do you [...] 6 (six) hours as needed for pain. acetaminophen-codeine Take 1 tablet by 10 tablet 0 04/06/20 19 08/02/2019 (TYLENOL #2) 300-15 mg per mouth every 6 tabletIndications: (six) hours as Prolonged Acute needed for pain Pain/Traumatic Injury Indication: Prolonged Acute Pain/Traumatic Injury. budesonide-formoterol Inhale 2 puffs 2 0 08/02/2019 (SYMBICORT) 160-4.5 (two) times a day. mcg/actuation inhaler Rinse mouth with water after use to reduce aftertaste and incidence of candidiasis. Do not swallow. cetirizine (ZyrTEC) 10 mg Take 10 mg by 3 019 08/02/2019 tablet mouth daily. fluticasone propionate daily. 0 01/13/2019 (FLONASE) 50 mcg/actuation nasal spray guaiFENesin (MUCINEX) 600 Take 1 tablet (600 60 tablet 0 08/02/2019 mg 12 hr tablet mg total) by mouth 2 (two) times a day. guaiFENesin (ROBITUSSIN) Take 10 mL (200 mg 236 mL 1 08/02/2019 100 mg/5 mL liquid total) by mouth every 4 (four) hours. HYDROcodone-acetaminophen Take 5 mL by mouth 240 mL 0 08/02/2019 (HYCET) 7.5-325 mg/15 mL as directed solutionIndications: Indication: Prolonged Acute Prolonged Acute Pain/Traumatic Injury Pain/Traumatic Injury. Every 4-6 hours for pain ibuprofen (ADVIL,MOTRIN) Take 600 mg by 0 08/02/2019 200 mg capsule mouth every 6 (six) hours as needed for pain. ibuprofen (ADVIL,MOTRIN) Three Times A Day 0 06/1510/22/2021 600 mg tablet as needed metFORMIN (GLUCOPHAGE) 500 2 (two) times a 11 11/1311/02/2019 mg tablet day. metFORMIN (GLUCOPHAGE) 500 Daily 0 8 10/16/2021 mg tablet nicotine (NICODERM CQ) 14 Place 1 patch on 1 03/1508/02/2019 mg/24 hr patch the skin. nicotine polacrilex 2 mg. 0 03/27/201908/02 (NICORETTE) 2 mg gum potassium chloride Daily 0 04/21/20182021 (KLOR-CON M/KDUR) 20 mEq ER tablet raNITIdine (ZANTAC) 150 mg Take 150 mg by 11 02/1808/02/2019 tablet mouth 2 (two) times a day. sulfamethoxazole-trimethopr Take 1 tablet by 10 tablet 0 08/02/2019 im (BACTRIM DS) 800-160 mg mouth every 12 per tablet (twelve) hours. documented as of this encounter Plan of Treatment Upcoming Encounters Date Type Specialty Care Team Description 04/22/2022 Clinical Admitting/Central Communication Scheduling 04/26/2022 Appointment Radiology Mark Eastman M.D., M.S. [address] [place] [phone] 04/26/2022 Office Visit Otorhinolaryngology Roxanne Lanza, SUB PLANT MANAGER, C.N.P. [address] [place] [phone] 04/28/2022 Appointment Radiation Oncology Ursula Aguirre M.D. [address] [place] [phone] documented as of this encounter Procedures Procedure Name Priority Date/Time Associated Comments Diagnosis PET CT SKULL TO RAD - Routine 08/24/2019 10:53 Malignant Neoplasm R esults for this THIGH (most inpatients AM POULTRY HUSBANDMAN Of Supraglottic procedur e are in and all (HCC) the results outpatients) section. documented in this encounter Results PET CT Skull to Thigh FDG (08/24/2019 10:53 AM POULTRY HUSBANDMAN) Anatomical Region Laterality Modality Body, Nuclear Medicine PET RST LOS, N/A Posi nasreen Emission Tomography (PET), PET ARZ LOS, Nuclear Medicine PET FLA Po sitron Emission Tomography (PET) LOS, Nuclear Medicine Specimen (Source) Anatomical Collection Method Collection Time Re ceived Time Location / / Volume Laterality 08/24/2019 12:36 PM POULTRY HUSBANDMAN Impressions 08/24/2019 12:59 PM POULTRY HUSBANDMAN No evidence for recurrent or metastatic supraglottic squamous cell carcinoma. Narrative 08/24/2019 12:59 PM POULTRY HUSBANDMAN EXAM: ??PET CT SKULL TO THIGH FDG Finger stick glucose level at the time o f the PET scan injection was 92 mg/dL. Patient followed standard dietary/fastin g requirements for this exam. RADIOPHARMACEUTICAL/MEDS: Route: intravenous fludeoxyglucose F 18 injection CUSTODIAL (FDG F-18),15.01 millicurie TECHNIQUE: ??F-18 FDG PET/CT scan was pe rformed from the orbits to the proximal thighs including dedicated head and neck views with CT fusion imaging for attenuation correction and anatomic core gistration only, with imaging beginning at approximately 60 minutes after radiot racer injection. ?? COMPARISON: ??CT abdomen and pelvis 01/[address] chest 2018. 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 Initial treatment strate gy. FINDINGS: ??Physiologic laryngeal and mu scular uptake in the neck. There are a few small scattered minimally FDG avid l ymph nodes in the neck, best appreciated on the high-resolution head and neck benoit ges which are likely reactive. No locally recurrent or distant metastatic disease. None of the 3-5 mm bilateral pulmonary n odules show any obvious FDG activity, however these are likely too small to ac curately characterize with PET CT. The approximately 3 cm bilateral adrenal nod ules show no significant uptake on the right and minimal activity on the left. These likely represent adenomas. No abnormal uptake in the liver. Low level activity in the bilateral pulmonary hilar areas which are likely reactive. M ild reactive uptake about the hips and shoulders. No focal FDG avid skeletal le sions. Urinary contamination the perineum and undergarments. Incidental CT findings: Prominent emphys ematous changes in the lungs. G-tube. Vascular and coronary artery calcificati ons. 5.3 cm infrarenal abdominal aortic aneurysm. Colonic diverticula. Right yoselin al cyst. Procedure Note Alan Champagne M.D. - 08/24/2019Format ting of this note might be different from the original. EXAM: PET CT SKULL TO THIGH FDG Finger stick glucose level at the time o f the PET scan injection was 92 mg/dL. Patient followed standard dietary/fastin g requirements for this exam. RADIOPHARMACEUTICAL/MEDS: Route: intravenous fludeoxyglucose F 18 injection CUSTODIAL (FDG F-18),15.01 millicurie TECHNIQUE: F-18 FDG PET/CT scan was perf ormed from the orbits to the proximal thighs including dedicated head and neck views with CT fusion imaging for attenuation correction and anatomic core gistration only, with imaging beginning at approximately 60 minutes after radiot racer injection. COMPARISON: CT abdomen and pelvis [address] chest 2018. INDICATION: Left supraglottic squamous c ell carcinoma of the larynx treated with radiation. Initial treatment strate gy. FINDINGS: Physiologic laryngeal and musc ular uptake in the neck. There are a few small scattered minimally FDG avid l ymph nodes in the neck, best appreciated on the high-resolution head and neck benoit ges which are likely reactive. No locally recurrent or distant metastatic disease. None of the 3-5 mm bilateral pulmonary n odules show any obvious FDG activity, however these are likely too small to ac curately characterize with PET CT. The approximately 3 cm bilateral adrenal nod ules show no significant uptake on the right and minimal activity on the left. These likely represent adenomas. No abnormal uptake in the liver. Low level activity in the bilateral pulmonary hilar areas which are likely reactive. M ild reactive uptake about the hips and shoulders. No focal FDG avid skeletal le sions. Urinary contamination the perineum and undergarments. Incidental CT findings: Prominent emphys ematous changes in the lungs. G-tube. Vascular and coronary artery calcificati ons. 5.3 cm infrarenal abdominal aortic aneurysm. Colonic diverticula. Right yoselin al cyst. IMPRESSION: No evidence for recurrent or metastatic supraglottic squamous cell carcinoma. Summer Pérez P.A.-C., M.S. IMG NM PROCEDURES documented in this encounter Visit Diagnoses Not on filedocumented in this encounter
--- OUTSIDE RECORDS SUMMARY | 2022-03-31 14:48 | XMS_ITS | Encounter Summary ---
:1955 Author Organization [facility] Address [address] [place] [address] Care Team Providers Name Role Phone Unavailable Primary Care Provider Unavailable Reason for Referral Outpatient (Routine) - Closed Specialty Diagnoses / Procedures Referred By Contact Refer red To Contact Diagnoses Malignant Neoplasm Of Supraglottic (HCC) Summer Pérez P.A.-C., [place] Reg ion Procedures FL Swallow Function with Video and Speech or OT M.S. [address] [place] [address] [phone] Referral ID Status Reason Start Date Expiration Date Visits Requ ested Visits Authorized [id number] Closed 09/11/2019 09/10/2020 1 1 T SINKER Reason for Visit Outpatient (Routine) - Closed Specialty Diagnoses / Procedures Referred By Contact Refer red To Contact Diagnoses Malignant Neoplasm Of Supraglottic (HCC) Summer Pérez P.A.-C.[facility] Reg ion Procedures FL Swallow Function with Video and Speech or OT M.S. [address] [place] [phone] Referral ID Status Reason Start Date Expiration Date Visits Requ ested Visits Authorized [id number] Closed 09/11/2019 09/10/2020 1 1 Encounter Details Date Type Department Care Team Description 09/28/2019 Hospital Encounter Department of Summer Pérez P.A.-C., M.S. [address] [place] [phone] Malignant Neoplasm Of Radiology, [place] Bia Linton M.S., CCC-HEMATOLOGY NURSE EDUCATOR [address] [place] [phone] Supraglottic (HCC) Building, in [place], [place] [address] [place] [phone] Social History Tobacco Use Types Packs/Day Years [...] do you attend taoism or Never 2018 episcopal services? Do you [...] Radiology Mark Eastman M.D., M.S. [address] [place] [phone] 04/26/2022 Office Visit Otorhinolaryngology Roxanne Lanza APRN, C.N.P. [address] [place] [phone] 04/28/2022 Appointment Radiation Oncology Ursula Aguirre M.D. [address] [place] [phone] documented as of this encounter Procedures Procedure Name Priority Date/Time Associated Comments Diagnosis FL SWALLOW RAD - Routine 09/28/2019 2:15 Malignant Neoplasm Resul ts for this FUNCTION WITH (most inpatients PM SHAFT SINKER Of Supraglottic procedu re are in VIDEO AND SPEECH and all (HCC) the results OR OT FOR RST outpatients) section. documented in this encounter Results FL Swallow Function with Video and Speech or OT (09/28/2019 2:15 PM SHAFT SINKER) Anatomical Region Laterality Modality Gastro Intestinal, Abdominal RST LOS, Abdominal ARZ N/A Digital Radiography LOS, Abdominal FLA LOS Specimen (Source) Anatomical Collection Method Collection Time Re ceived Time Location / / Volume Laterality 09/28/2019 2:31 PM SHAFT SINKER Impressions 09/28/2019 2:33 PM SHAFT SINKER Aspiration of liquid consistencies and deep penetration of applesauce. See speech pathology note fo r details. Narrative 09/28/2019 2:33 PM SHAFT SINKER EXAM: ??FL SWALLOW FUNCTION WITH VIDEO AND SPEECH OR OT FOR RST COMPARISON: ??03/28/2019 FINDINGS: ??Video fluoroscopic swallow s tudy done with speech pathology. Patient was given thin, nectar thick, and apples auce consistency barium. Deep penetration to the cords with swallowing thin and nectar thick consistency, with delayed aspiration of both consistencies . Deep penetration with applesauce as well. Patient's cough was weak and ineff ective in clearing. Procedure Note Brice Choudhury M.D. - 09/28/2019Form atting of this note might be different from the original. EXAM: FL SWALLOW FUNCTION WITH VIDEO AND SPEECH OR OT FOR RST COMPARISON: 03/28/2019 FINDINGS: Video fluoroscopic swallow fareed dy done with speech pathology. Patient was given thin, nectar thick, and apples auce consistency barium. Deep penetration to the cords with swallowing thin and nectar thick consistency, with delayed aspiration of both consistencies . Deep penetration with applesauce as well. Patient's cough was weak and ineff ective in clearing. IMPRESSION: Aspiration of liquid consistencies and d eep penetration of applesauce. See speech pathology note fo r details. Summer Pérez P.A.-C., M.S. IMG FLUOROSCOPY PROCEDURES documented in this encounter Visit Diagnoses Diagnosis Malignant Neoplasm Of Supraglottic (HCC) documented in this encounter Administered Medications Inactive Administered Medications - up to 3 most recent administrations Medication Order MAR Action Action Date Dose Rate Site barium 40 % (w/v) oral powder for Given 09/28/2019 2:15 PM SHAFT SINKER 5 0 mL suspension (VARIBAR THIN LIQUID) oral, Code/trauma/sedation medication, Starting on Tue09/28/19 at 1415 barium 40 % (w/v) suspension Given 09/28/2019 2:15 PM SHAFT SINKER 20 mL Code/trauma/sedation medication, Starting on Tue09/28/19 at 1415 documented in this encounter
--- OUTSIDE RECORDS SUMMARY | 2022-03-31 14:48 | XMS_ITS | Encounter Summary ---
:1955 Author Organization [facility] Address [address] [place] [address] Care Team Providers Name Role Phone Unavailable Primary Care Provider Unavailable Encounter Details Date Type Department Care Team Description 08/02/2019 Documentation Division of Gastroenterology Jordon Tse, in [facility] guillaume Duff [address] [place] [address] [place] [phone] Social History Tobacco Use Types Packs/Day Years [...] or relatives? How often do you attend congregational or Never 2018 hinduism services? Do you belong to any clubs or No 02/21/2019 organizations such as congregational groups, unions, fraternal or athletic groups, or [...] documented as of this encounter Progress Notes Chucho Tse, R.N. - 08/02/2019 2:40 PM CST Note created ER HELPER VINYL COATING documented in this encounter Nursing Notes Chucho Tse, R.N. - 08/02/2019 2:40 PM CST PEG/PEJ Nursing Procedure Note ASSESSMENT / PLAN Patient Name: Obdulia Narayan Department : DIVISION OF GASTROENTEROLOGY IN [place], [place] SUBJECTIVE Past Medical History: Diagnosis Date ??? Arthritis ??? Chronic Obstructive Pulmonary Disease (HCC) ??? Diabetes Mellitus NOS ??? Dysphagia ??? Gastroesophageal Reflux Disease NOS ??? Hyperlipidemia ??? Hypertension NOS ??? Malignant Neoplasm Of Supraglottic (HCC) ??? Malignant Neoplasm Of Supraglottic (HCC) Past Surgical History: Procedure Laterality Date ??? [...] Non-medical: No Tobacco Use ??? Smoking status: Former Smoker Last attempt to quit: 03/13/2019 Years since quittin.3 ??? Smokeless tobacco: Never Used Substance and Sexual Activity ??? Alcohol use: Not on file ??? Drug use: Never ??? Sexual activity: Defer Lifestyle ??? Physical activity Days per week: 0 days Minutes per session: 0 min ??? Stress: To some extent Relationships ??? Social connections Talks on phone: More than three times a week Gets together: Once a week Attends hinduism service: Never Active member of club or organization: No Attends meetings of clubs or organizations: Never Relationship status: ??? Intimate partner violence Fear of current or ex partner: Not on file Emotionally abused: Not on file Physically abused: Not on file Forced sexual activity: Not on file Other Topics Concern ??? Not on file Social History Narrative ??? Not on file OBJECTIVE Procedure Patient [facility] to [facility] Raamkrishna 6 Patient being seen for: PEG Type of procedure: Replacement Location of tube: Stomach : Avanos JORDON small bore. Reference number: [id number] Size of Tube: 20 Top of skin disc level: 4.5 Internal Retention Device: Balloon Balloon volume in mL: 10 T Fasteners: Not Present Skin integrity of site: Granulation and Tender Granulation at site: Yes Granulation treated with: Silver Nitrate (3-9 o'clock) Dressing: Se pro net Complications: None Did tube need to be re-labeled: No Verification of tube done by: Gastic Content Aspiration After Visit Information Recommendations for after procedure: Follow nursing guideline PEG/PEJ Tube Site Care and Tube Replacement Return appointment timeframe: 3-5 months Tube is used for: Venting When may you use tube: May use tube immediately Tube placed to gravity: Yes Patient Education Learning needs assessment. Who is being assessed: Patient Any barriers to learning: None Learning preference: Doing, Listening, Reading and Seeing Education: PEG/PEJ Wallet Card ([id number]) Supplies sent with patient: None Encouraged Pt to applied barrier spray on areas of erythema under skin disk. ER HELPER VINYL COATING documented in this encounter Plan of Treatment Upcoming Encounters Date Type Specialty Care Team Description 04/22/2022 Clinical Admitting/Central Communication Scheduling 04/26/2022 Appointment Radiology Mark Eastman M.D., M.S. [address] [place] [phone] 04/26/2022 Office Visit Otorhinolaryngology Roxanne Lanza, HOT HEAD MACHINE OPERATOR, C.N.P. [address] [place] [phone] 04/28/2022 Appointment Radiation Oncology Ursula Aguirre M.D. [address] [place] [phone] documented as of this encounter Visit Diagnoses Not on filedocumented in this encounter
--- OUTSIDE RECORDS SUMMARY | 2022-03-31 14:48 | XMS_ITS | Encounter Summary ---
:1955 Author Organization [facility] Address [address] [place] [address] Care Team Providers Name Role Phone Unavailable Primary Care Provider Unavailable Reason for Referral Outpatient (Routine) - Canceled Specialty Diagnoses / Procedures Referred By Contact Refer red To Contact Nutrition Diagnoses Malignant Neoplasm Of Supraglottic (HCC) Ursula Aguirre M.D. [address] [phone] Referral ID Status Reason Start Date Expiration Date Visits V isits Requested Authorized [id number] Canceled 08/30/2019 08/29/2020 1 1 HEAD DISTRIBUTION ENGINEER Reason for Visit Outpatient (Routine) - Canceled Specialty Diagnoses / Procedures Referred By Contact Refer red To Contact Nutrition Diagnoses Malignant Neoplasm Of Supraglottic (HCC) Ursula Aguirre M.D. [facility] Region [address] [place] [phone] Referral ID Status Reason Start Date Expiration Date Visits V isits Requested Authorized [id number] Canceled 08/30/2019 08/29/2020 1 1 Encounter Details Date Type Department Care Team Description 09/20/2019 Hospital Encounter Department of Mary Aguirre M.D. [address] [place] [phone] Malignant Neoplasm Radiation Oncology Natasha Brandon, RDN [address] [place] [phone] Of Supraglottic in [place], ([facility]) [place] [address] [facility] [place] [place] [phone] Social History Tobacco Use Types Packs/Day Years [...] do you attend jew or Never 2018 episcopalian services? Do you [...] encounter Progress Notes Natasha Brandon, AYLEEN - 09/20/2019 2:30 PM CST CHIEF COMPLAINT/REASON FOR VISIT ??Malignant Neoplasm Of Supraglottic (HCC) (C32.1)? HISTORY OF PRESENT ILLNESS Mrs. 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 Radiotherapy to the supraglottic tumor initiated on March 26, 2019;??completed April,. ?? Met with patient??and??her [id number]-qdj.?Patient??is hard of hearing and reads lips. For phonecontact Merlin (son)??states, his Darlin is the one to call, . ?? 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 ??She does not drink alcohol. ?? Medical Tests and Procedures/Biochemical Data Swallow evaluation on 03/28/19 showed mild dysphagia.??With side-effects of treatment??increased??difficulty swallowing due to pain and gagging. ?? Swallow evaluation rescheduled for 09/28/19 ?? Nutrition Focused Physical Findings Mouth/throat/esophagus:??some throat soreness Nausea/vomiting:??denies nausea or vomiting Bowels:??no diarrhea or constipation ?? Tube Information Gastrostomy tube??placed by GI 04/17/19 LEONARDO 20 [place]er balloon gastrostomy, ENFit connector ?? Food/Nutrient Related History She??reports that she is eating some solid food such as jello, cookies, pop tarts, chicken, potatoes, however, currently she is not eating anything due to a sore throat. She reports taking in only 2-3 cartons of nutren 1.5 each day. She is drinking water by mouth and doing tube feeding flushes. She isunsure of the amount. ?? Weight History ?Current weight 63.2??kg -??10.5 kg??(14.2%) loss since??06/14/19 Height: 167 cm BMI: 22.6 kg/m2 Usual body weight: 230# (104.5??kg) last year, per patient 03/16/19: 88.5 kg 03/28/19: 87.7 kg 04/04/19: 86.3 kg 04/11/19: 83.5 kg 04/12/19: 82.5 kg--5.8% loss from treatment start weight 04/18/19: 83.6 kg 04/26/19:??82.4 kg 05/03/19:??81.3 kg 05/24/19: 75.0 kg 06/14/19: 73.7 kg 08/03/19: 68.6 kg 08/30/19: 66.8 kg ?Estimation of Nutritional Needs using 82.5 kg (04/12/19) and 167 cm 1800 calories/day (HB basal + 20%) 85 grams protein/day (1 gram/kg) 2100 to??2500 mL fluid/day (25 to??30 mL/kg) ?? Assessment Summary Obdulia Narayan is not able to meet her nutrition or hydration needs orally due to dysphagia/side-effects of treatment. She needs tube feedings to meet her needs for several months until able to gradually resume oral intake. A feeding gastrostomy was placed??04/17/19. ?? Weight is decreased 20.4??kg (44.9??lbs) since tube feeding initiated.?Patient had her tube replaced 08/02/19. ??She missed her Fluoroscopic exam appointment on 08/24/19. Next appointment scheduled for 09/28/19. ?? NUTRITION DIAGNOSIS Inadequate oral intake (NI-2.1)??related to side-effects of treatment??as evidenced by weight loss and diet history. ?? Unintentional weight loss related to cancer as evidenced by??approximate 16.8??kg weight loss in thelast??year??prior to treatment??per patient report??and 5.8% weight loss prior to tube feeding placement. ? Food- and nutrition-related knowledge deficit??related to Cancer with??radiation??therapy??as evidenced by need for nutrition education to maintain weight and nutrition status during treatment Nutrition Diagnosis Reassessment: Ongoing ?? Nutrition Prescription/Recommendation Formula Type: Nutren 1.5, 5 containers/day Administration Method: Intermittent gravity/syringe Infusion Schedule: ??08-15--- Water Flushes: ??60 mL before and after each feeding, increase if not able to take about 3 cups water orally Additional Multivitamin: ??not needed, formula provides 100% ?? At goal, this will provide a total of: 1875??calories/day, 85??g protein/day and 1250??mL of fluid/day Water flushes??of 60 mL before and after each feeding??will provide??360 mL with infusion as above.??Goal of at least 1250 mL by flushes or mouth to meet estimated fluid needs. ?? Oral Program: as tolerated ?? INTERVENTION Discussed her continued weight loss and importance of nutrition for healing and weight maintenance. Reviewed guidelines for discontinuing her tube feeding including weight stabilization. We reviewed her calorie, protein and fluid needs. We discussed how she can be successful in getting all 5 cartons of feeding in each day. Obdulia reports that she worries a lot. Sucltlbn-mr-qnt reports that she thinkSonia is depressed. They are visiting with the social secretary today. Discussed setting a timer for her feedings. Obdulia plans to set a timer on her phone. She will give herself one carton of feeding every 2.5 hours. She was in agreement with this plan. She will also record her feedings in a notebook and bring this with her to our next appointment.?Discussed her hydration. Obdulia reports that she is drinking water by mouth and giving herself flushes. She reports urinating 5-6 times per day. Reviewed her fluid goal. ?? Care Coordination Authorization on file to speak with DME/Infusion Company: yes DME/Infusion Company that will provide needed supplies for home: ??[facility]??. They delivered supplies??04/18/19. ?? Indication for Ongoing Enteral Nutrition ??Home Enteral Nutrition, dysphagia, suqpaglottic squamous cell carcinoma. Anticipated duration of tube feedings is 12 months. This is??the sole source of nutrition. ?? MONITORING AND EVALUATION Nutrition parameter to monitor: ??Weight Desired Outcome: ??Prevent further weight loss Patient Goal(s): 1. ??Nutren 1.5, 5 containers a day, schedule of??1-1-1-1-1??or as tolerated with 60 ml flush beforeand after each feeding. 2. ??9 cups total fluid by flush or mouth to meet estimated fluid needs. ? Follow-up Plan Follow up??in 2 weeks. ?? Time spent with patient (minutes):15 HEAD DISTRIBUTION ENGINEER documented in this encounter Plan of Treatment Upcoming Encounters Date Type Specialty Care Team Description 04/22/2022 Clinical Admitting/Central Communication Scheduling 04/26/2022 Appointment Radiology Mark Eastman M.D., M.S. [address] [place] [phone] 04/26/2022 Office Visit Otorhinolaryngology Roxanne Lanza APRN, C.N.P. [address] [place] [phone] 04/28/2022 Appointment Radiation Oncology Ursula Aguirre M.D. [address] [place] [phone] Scheduled Referrals Name Type Priority Associated Diagnoses Order S chedule Nutrition - Outpatient Referral Routine Malignant Neoplasm On ce for 1 Medical nutrition Of Supraglottic Occurre nces therapy consult (HCC) starting 01/2020 (clinic) until 0 documented as of this encounter Visit Diagnoses Diagnosis Malignant Neoplasm Of Supraglottic (HCC) documented in this encounter
--- OUTSIDE RECORDS SUMMARY | 2022-03-31 14:48 | XMS_ITS | Encounter Summary ---
:1955 Author Organization [facility] Address [address] [place] [address] Care Team Providers Name Role Phone Unavailable Primary Care Provider Unavailable Reason for Referral Outpatient (Routine) - Closed Specialty Diagnoses / Procedures Referred By Contact Refer red To Contact Radiation Oncology Summer Pérez P.A.-C., INDR[facility] [address] [place] [phone] Referral ID Status Reason Start Date Expiration Date Visits Requ ested Visits Authorized [id number] Closed 08/30/2019 08/29/2020 1 1 Scheduling Instructions TSH a few days prior ECTIONAL SUBSTANCE ABUSE COUNSELOR Outpatient (Routine) - Closed Specialty Diagnoses / Procedures Referred By Contact Refer red To Contact Radiation Oncology Summer Pérez P.A.-C., INDRA [facility] [address] [place] [phone] Referral ID Status Reason Start Date Expiration Date Visits Requ ested Visits Authorized [id number] Closed 06/14/2019 06/13/2020 1 1 Scheduling Instructions Schedule after PET, swallow study, and Chrissy Mabry appointment in [place]; coordinate with diet if possible ECTIONAL SUBSTANCE ABUSE COUNSELOR Reason for Visit Outpatient (Routine) - Closed Specialty Diagnoses / Procedures Referred By Contact Refer red To Contact Radiation Oncology Summer Pérez P.A.-C., [facility] [address] [place] [phone] Referral ID Status Reason Start Date Expiration Date Visits Requ ested Visits Authorized [id number] Closed 06/14/2019 06/13/2020 1 1 Encounter Details Date Type Department Care Team Description 08/30/2019 Hospital Encounter Department of Ursula Aguirre Neoplasm Of Radiation Oncology Kimberley Bacon Supraglottic (HCC) in [place], [facility] [address] [facility] (Primary Dx) [place], [place] [address] [facility] [address] [place], [place] [phone] (Work) [phone] Social History Tobacco Use Types Packs/Day Years [...] do you attend hinduism or Never 2018 religion services? Do you belong to any clubs [...] Sign Reading Time Taken Comments Blood Pressure 181/92 08/30/2019 1:26 PM CORRECTIONAL SUBSTANCE ABUSE COUNSELOR Pulse 85 08/30/2019 1:26 PM CORRECTIONAL SUBSTANCE ABUSE COUNSELOR Temperature 36.5 ??C (97.7 ??F) 08/30/2019 1:26 PM CORRECTIONAL SUBSTANCE ABUSE COUNSELOR Respiratory Rate - - Oxygen Saturation - - Inhaled Oxygen Concentration - - Weight 66.8 kg (147 lb 4.3 oz) 08/30/2019 1:26 PM CORRECTIONAL SUBSTANCE ABUSE COUNSELOR Height - - Body Mass Index 24.01 04/18/2019 8:26 AM CDT documented in this [...] 6 (six) hours as needed for pain. metFORMIN (GLUCOPHAGE) 500 2 (two) times a 11 11/1311/02/2019 mg tablet day. ibuprofen (ADVIL,MOTRIN) Three Times A Day 0 06/1510/22/2021 600 mg tablet as needed metFORMIN (GLUCOPHAGE) 500 Daily 0 8 10/16/2021 mg tablet potassium chloride Daily 0 04/21/20182021 (KLOR-CON M/KDUR) 20 mEq ER tablet documented as of this encounter Progress Notes Summer Pérez P.A.-C., M.S. - 08/30/2019 1:30 PM CST SUBJECTIVE DIAGNOSIS 1. Malignant Neoplasm Of Supraglottic (HCC) SUPERVISED BY: Ursula Aguirre M.D. HISTORY OF PRESENT ILLNESS Obdulia Narayan is a 64-year-old female with supraglottic squamous cell carcinoma. Her oncologic history is as follows: 1. November 2018: ??The patient noted throat pain with swallowing along with intermittent ear pain,??managed with Tylenol. 2. February 2019: ??The patient experienced progressively worsening throat pain,??odynophagia, 10 pound??unintentional weight loss, hoarseness over the past few weeks,??and difficulty sleeping due to increased secretion. 3. February 08, 2019: ??Appointment with Dr. Darryl Grayson???[facility] at [facility]. ??Physical examination with flexible laryngoscopy revealed a large fungating mass overlying the posterior left arytenoid that appeared fairly extensive, extending over to the right arytenoid into the piriform sinus. ?? Vocal cords move normally. ??Patient did have some shotty adenopathy on the left side. ??Ordered CT scan and then arrange referral to [facility]. 4. February 12, 2019: ??CT scan of [...] Mabry and Dr. Frank Arrieta??at [facility]. ??Physical examination revealed an exophytic mass of [...] will be referred to Radiation Oncology in [place]. 8. March 13, 2019: ??Follow-up appointment with Dr. Arrieta and Dr. Mabry who discussed treatment options including total laryngectomy versus radiation therapy. ??They were not able to offer partial laryngectomy given her lung disease and possible aspiration. ?? 9. March 15, 2019: ??Phone call with Dr. Tapia with the patient's ypnfqgle-xk-itz reported that the patient had decided to undergo radiation treatment in [place]. ??She will have a follow-up abdominal MRI at [place]. ??The patient will follow-up with her primary care provider regarding the asymmetry in the right breast.? 10. March 26, 2019 through May 04, 2019: ??Definitive radiotherapy to the supraglottic tumor to a dose of 7000 cGy in 35 fractions. 11. August 02, 2019: PEG tube exchange. INTERVAL HISTORY The patient was seen and examined today with Dr. Aguirre. The patient reports doing well overall. She denies fatigue. She reports persistent mouth dryness that is stable. She is eating regular foods and reports that food is not getting stuck and she is experiencing none to minimal pain with swallowing. She states that she is eating two plates of food per day. She also says that she is taking in 4 boxes of formula via the feeding tube per day. She is, however, continuing to lose weight. She reports taking ibuprofen two to four tablets per day which helps with the minimal throat pain. She has a cough productive of clear phlegm. She denies hemoptysis. She takes Mucinex with benefit. She reports shortness of breath only with coughing. She has been experiencing high blood pressure readings recently. She reports having headaches when her blood pressure is high. She also reports feeling dizzy and unstable on her feet. She denies falls. She denies any feeding tube concerns. She denies any other questions or concerns today. She did not have a swallow study performed due to having high blood pressure that day after the PET/CT scan. REVIEW OF SYSTEMS Review of systems was negative except as documented above. PATIENT REPORTED SYMPTOM SCREEN FATIGUE (Scale: 0 = no fatigue; 10 = worst fatigue you can imagine): 0 ?? PAIN (Scale: 0 = no pain; 10 = worst pain you can imagine): 5 ?? OVERALL QUALITY OF LIFE (Scale: 0 = as bad as can be; 10 = as good as can be): N/A OBJECTIVE BP (!) 181/92 (BP Location: Right arm, Patient Position: Sitting, Cuff Size: Small) Pulse 85 Temp 36.5 ??C (Temporal) Wt 66.8 kg BMI 24.01 kg/m? PHYSICAL EXAM General: Patient is alert and oriented in no apparent distress. 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 2.?Definitive radiotherapy to the supraglottic tumor initiated on March 26, 2019; completed on??May 04, 2019 3. ??Left facial boil, s/p incision and drainage on March 28, 2019; Bactrim initiated for 5 days onMarch 28, 2019 4. ??PEG tube placement on April 17, 2019; replacement on August 02, 2019 The patient is recovering well overall following radiation treatment. She reports no to minimal painwith swallowing. She is eating regular foods and continuing with tube feedings. We discussed her nutrition in detail today as she is continuing to lose weight. The importance of increasing her nutritional intake was emphasized today. She also met with our dietitian today who reviewed her recommendations in detail again. She was recommended to re-schedule the swallowing study that she missed. She has had recent high blood pressure readings. She was recommended to schedule an appointment with her primary provider, Dr. De La Fuente, for further evaluation and management of her other medical conditions including elevated blood pressure. We will see Ms. Obdulia Narayan in a follow-up visit in 3 months witha TSH drawn a few days prior. Our dietitian has requested a follow-up visit with the patient in 2 weeks. The patient was told to contact us sooner with questions or concerns. She verbally expressed her understanding of the plan. ?? EDUCATION Ready to learn, no apparent learning barriers were identified; learning preferences include listening. Explained diagnosis and treatment plan; patient expressed understanding of the content. ?? Signed by: Summer Pérez P.A.-C., M.SShital 08/30/2019 2:17 PM CORRECTIONAL SUBSTANCE ABUSE COUNSELOR [facility] [address] [place] [address] ECTIONAL SUBSTANCE ABUSE COUNSELOR Associated attestation - Ursula Aguirre M.D. - 08/30/2019 5:40 PM CORRECTIONAL SUBSTANCE ABUSE COUNSELOR I saw and evaluated the patient and participated in the rao portions of the service. I reviewed the documentation of Ms. Summer Pérez PA-C, MS and agree with the findings and plan. After topical decongestion and anesthesia with lidocaine and afrin, the flexible laryngoscope was inserted on the right nare. The nasal cavity, nasopharynx, oropharynx, hypopharynx and larynx were normal. However, she did have some thick secretions and mild swelling about the larynx. No obvious mass was present. No neck adenopathy. She does have submental lymphedema. We discussed her PET/CT findings which show no FDG avidity. We discussed her nutrition. She will see our mottler operator today. I have spent 25 minutes with this patient today in which >50% was spent counseling and coordination of care. Ursula Aguirre M.D., 08/30/2019 documented in this encounter Plan of Treatment Upcoming Encounters Date Type Specialty Care Team Description 04/22/2022 Clinical Admitting/Central Communication Scheduling 04/26/2022 Appointment Radiology Mark Eastman M.D., M.S. [address] [place] [phone] 04/26/2022 Office Visit Otorhinolaryngology Roxanne Lanza, PRODUCTION LINE SOLDERER, C.N.P. [address] [place] [phone] 04/28/2022 Appointment Radiation Oncology Ursula Aguirre M.D. [address] [place] [phone] Scheduled Referrals Name Type Priority Associated Order Schedule Diagnoses Radiation Oncology Outpatient Referral Routine On ce for 1 office visit Occurrences sta rting (clinic) 08/30/2019 unti l 08/30/2019 Radiation Oncology Outpatient Referral Routine Ex pected: 11/29/2019 office visit (Approximate), (clinic) Expires: 01/16/ 2021 documented as of this encounter Visit Diagnoses Diagnosis Malignant Neoplasm Of Supraglottic (HCC) - Primary documented in this encounter
--- OUTSIDE RECORDS SUMMARY | 2022-03-31 14:48 | XMS_ITS | Encounter Summary ---
:1955 Author Organization [facility] Address [address] [place] [address] Care Team Providers Name Role Phone Unavailable Primary Care Provider Unavailable Reason for Referral Speech Pathology (Routine) - Closed Specialty Diagnoses / Procedures Referred By Contact Refer red To Contact Diagnoses Malignant Neoplasm Of Supraglottic (HCC) Summer Pérez P.A.-C., [place] [facility] Procedures NETTING WEAVER - Ongoing treatment M.S. 200 [place], [place] [phone] Referral ID Status Reason Start Date Expiration Date Visits Requ ested Visits Authorized [id number] Closed 09/11/2019 09/10/2020 1 1 ER CHAIN OFFBEARER Outpatient (Routine) - Closed Specialty Diagnoses / Procedures Referred By Contact Refer red To Contact Diagnoses Malignant Neoplasm Of Supraglottic (HCC) Summer Pérez P.A.-C., [place] [facility] Procedures FL Swallow Function with Video and Speech or OT M.S. 200 [place] [phone] Referral ID Status Reason Start Date Expiration Date Visits Requ ested Visits Authorized [id number] Closed 09/11/2019 09/10/2020 1 1 ER CHAIN OFFBEARER Speech Pathology (Routine) - Closed Specialty Diagnoses / Procedures Referred By Contact Refer red To Contact Diagnoses Malignant Neoplasm Of Supraglottic (HCC) Summer Pérez P.A.-C., [place] [facility] Procedures NETTING WEAVER Dysphagia evaluate and treat M.S. [address] [place] [phone] Referral ID Status Reason Start Date Expiration Date Visits Requ ested Visits Authorized [id number] Closed 09/11/2019 09/10/2020 1 1 ER CHAIN OFFBEARER Encounter Details Date Type Department Care Team Description 09/11/2019 Orders Only Department of Summer Pérez, Malignant Joao plasm Of Radiation Oncology in [place] Supraglottic (HCC) Bronson Huerta a [address] [facility] (Primary Dx) [address] [place] [phone] Social History Tobacco Use Types Packs/Day Years [...] or relatives? How often do you attend bahai or Never 2018 yazdanism services? Do you belong to any clubs or No 02/21/2019 organizations such as bahai groups, unions, fraternal or athletic groups, or [...] Appointment Radiology Mark Eastman M.D., M.S. [address] [place] [phone] 04/26/2022 Office Visit Otorhinolaryngology Roxanne Lanza, TIN FLOPPER, C.N.P. [address] [place] [phone] 04/28/2022 Appointment Radiation Oncology Ursula Aguirre M.D. [address] [place] [phone] documented as of this encounter Results FL Swallow Function with Video and Speech or OT (09/28/2019 2:15 PM LUMBER CHAIN OFFBEARER) Anatomical Region Laterality Modality Gastro Intestinal, Abdominal RST LOS, Abdominal ARZ N/A Digital Radiography LOS, Abdominal FLA LOS Specimen (Source) Anatomical Collection Method Collection Time Re ceived Time Location / / Volume Laterality 09/28/2019 2:31 PM LUMBER CHAIN OFFBEARER Impressions 09/28/2019 2:33 PM LUMBER CHAIN OFFBEARER Aspiration of liquid consistencies and deep penetration of applesauce. See speech pathology note fo r details. Narrative 09/28/2019 2:33 PM LUMBER CHAIN OFFBEARER EXAM: ??FL SWALLOW FUNCTION WITH VIDEO AND [...]
--- OUTSIDE RECORDS SUMMARY | 2022-03-31 14:48 | XMS_ITS | Encounter Summary ---
:1955 Author Organization [facility] Address [address] [place] [address] Care Team Providers Name Role Phone Unavailable Primary Care Provider Unavailable Encounter Details Date Type Department Care Team Description 10/04/2019 Documentation Department of Radiation Chinyere Brandon RDN Oncology in [place], [address] [place], [place] 18[address] [facility] [phone] [place] [address] [phone] Social History Tobacco Use Types Packs/Day Years [...] or relatives? How often do you attend advent or Never 2018 moravian services? Do you belong to any clubs or No 02/21/2019 organizations such as advent groups, unions, fraternal or athletic groups, or [...] Radiology Mark Eastman M.D., M.S. [address] [place] [phone] 04/26/2022 Office Visit Otorhinolaryngology Roxanne Lanza APRN, C.N.P. [address] [place] [phone] 04/28/2022 Appointment Radiation Oncology Ursula Aguirre M.D. [address] [place] [phone] documented as of this encounter Visit Diagnoses Not on filedocumented in this encounter Additional Health Concerns Infection Onset Date Last Indicated Resolved Time COVID19 Pending 03/12/2020 03/12/2020 03/12/2020 9:30 PM CDT COVID19 Pending 06/10/2020 06/10/2020 06/10/2020 8:15 PM CDT COVID19 Pending 10/19/2021 10/19/2021 10/20/2021 1:47 AM COIL WINDER REPAIR documented as of this encounter
--- OUTSIDE RECORDS SUMMARY | 2022-03-31 14:48 | XMS_ITS | Encounter Summary ---
:1955 Author Organization [facility] Address [address] [place] [address] Care Team Providers Name Role Phone Unavailable Primary Care Provider Unavailable Reason for Visit Reason Comments Feeding Tube Outpatient (Routine) - Closed Specialty Diagnoses / Procedures Referred By Contact Refer red To Contact Endocrinology Diagnoses Malignant Neoplasm Of Supraglottic (HCC) Lara Castellanos [facility] AMAYA, C.N.P. [address] [place] [phone] Referral ID Status Reason Start Date Expiration Date Visits Requ ested Visits Authorized [id number] Closed 06/18/2019 06/17/2020 1 1 Encounter Details Date Type Department Care Team Description 08/02/2019 Nurse Only Division of Endocrinology in Lara Grijalva APRN, C.N.P. [address] [place] [phone] Feeding Tube [place], [place] Chio Whitaker, RShitalN. [address] [place] [phone] [address] [place] [phone] Social History Tobacco Use Types Packs/Day [...] do you attend christianity or Never 2018 mandaeism services? Do you [...] - Inhaled Oxygen Concentration - - Weight 70.1 kg (154 lb 8.7 oz) 08/02/2019 9:57 AM DIRECTOR OF VITAL STATISTICS Height - - Body Mass Index 25.2 04/18/2019 8:26 AM CDT documented in this encounter Progress Notes Chio Whitaker R.N. - 08/02/2019 10:00 AM CST SUBJECTIVE REASON FOR VISIT Ms. Narayan was seen in the [facility] clinic today for a tube replacement visit. 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 Tube was placed using: General anesthesia. Were there complications at time of placement? No. ASSESSMENT Tube type: PEG tube Tube size: 20 Tube brand: [employer] Tube reference number: [id number] Connector type: Small Bore (Enfit) Date placed: 04/17/19 Skin disk level: 4 Internal anchor device: Balloon, not checked Site condition: mucous drainage present, granulation tissue about 1-2 mm present from 6-8 o'clock. Erythema under skin disk. Discussed that this can be treated at the time of her PEG replacement procedure today. Dressing status: None under skin disk. Had folded paper towel over top of tube Is an infection assessment needed? No Condition of tube: Stained Securement device used: Se pro net Movement of tube: Moves freely T-fasteners present: No The patient's tube preference is: Balloon tube. Balloon to balloon replacement procedure discussed. The final decision of tube type and anesthesia will be made by the proceduralist and/or anesthesia provider Does the patient have a second enteral tube? No Considerations for future visits: Low profile tube: NA Self replacement: NA Special order tube: GI/IR global supply chain director notified? NA PLAN Were procedural instructions given? Yes. Eating and drinking instructions: Starting 8 hours before your scheduled procedure: Stop eating solid food. Continue drinking liquids. Starting 6 hours before your scheduled procedure: Stop drinking any non-clear liquids (milk, orange juice and tomato juice). You may continue to drink clear liquids such as water, clear fruit juice (apple or white grape), carbonated beverages, clear broth, gelatin, ice pops (no pulp), clear tea or black coffee (no milk or creamer). If you have a feeding tube, stop putting feedings through the tube. You may continue putting water or other clear liquids through the tube. Starting 2 hours before your scheduled procedure: Stop drinking anything. If you have a feeding tube, stop putting water or other clear liquids through the tube. At the end of the discussion the patient verbalized understanding and agreement with the procedural instructions. Is there a procedure scheduled? Date: 08/02/19, Time: 1400 and Location: [facility] GI Is a return visit needed? As needed *Ms. Narayan reports a PEG site infection that her radiation oncology provider in [place] prescribed antibiotics for she believes in May. At this time she reports no problems with the tube. *Ms. Narayan tells me that she hasn't used her PEG tube since 07/11/19. It is unclear whether she isstill occasionally using it for medications. I reviewed that per her records, she has lost weight, about 5 kg, over the last few months. Recommended she contact her local dietitian to discuss her nutrition requirements. She will also discuss with her providers as to how long they anticipate she will need the PEG tube. *Discussed that Ms. Narayan may need to perform site care twice daily (or as needed) as long as she continues to have excess mucous drainage from the granulation tissue. Also discussed that if she notices increasing drainage or granulation tissue growing she can contact our office to schedule an appointment to treat it. CTOR OF VITAL STATISTICS documented in this encounter Plan of Treatment Upcoming Encounters Date Type Specialty Care Team Description 04/22/2022 Clinical Admitting/Central Communication Scheduling 04/26/2022 Appointment Radiology Mark Eastman M.D., M.S. [address] [place] [phone] 04/26/2022 Office Visit Otorhinolaryngology Roxanne Lanza APRN, C.N.P. [address] [place] [phone] 04/28/2022 Appointment Radiation Oncology Ursula Aguirre M.D. [address] [place] [phone] documented as of this encounter Visit Diagnoses Diagnosis Malignant Neoplasm Of Supraglottic (HCC) documented in this encounter
--- OUTSIDE RECORDS SUMMARY | 2022-03-31 14:48 | XMS_ITS | Encounter Summary ---
:1955 Author Organization [facility] Address [address] [place] [address] Care Team Providers Name Role Phone Unavailable Primary Care Provider Unavailable Reason for Referral Outpatient (Routine) - Closed Specialty Diagnoses / Procedures Referred By Contact Refer red To Contact Social Work Summer Pérez P.A.-C ., M.S. [facility] [address] [place] [phone] Referral ID Status Reason Start Date Expiration Date Visits Requ ested Visits Authorized [id number] Closed 09/17/2019 09/16/2020 1 1 CTION MOLDER Encounter Details Date Type Department Care Team Description 09/17/2019 Orders Only Department of Radiation Jannet Cross R.N. Oncology in [place], [address] [place] [address] 1821 [facility] [phone] [place] [address] [phone] Social History Tobacco Use Types Packs/Day Years [...] or relatives? How often do you attend islam or Never 2018 zoroastrianism services? Do you belong to any clubs or No 02/21/2019 organizations such as islam groups, unions, fraternal or athletic groups, or [...] Appointment Radiology Mark Eastman M.D., M.S. [address] [place] [phone] 04/26/2022 Office Visit Otorhinolaryngology Roxanne Lanza APRN, C.N.P. [address] [place] [phone] 04/28/2022 Appointment Radiation Oncology Ursula Aguirre M.D. [address] [place] [phone] Scheduled Referrals Name Type Priority Associated Diagnoses Order [facility] Social Work Outpatient Referral Routine Expected : office visit 09/17/2019 (clinic) (Approximate), Expires: 09/17/2020 documented as of this encounter Visit Diagnoses Not on filedocumented in this encounter
--- OUTSIDE RECORDS SUMMARY | 2022-03-31 14:48 | XMS_ITS | Encounter Summary ---
:1955 Author Organization [facility] Address [address] [place] [address] Care Team Providers Name Role Phone Unavailable Primary Care Provider Unavailable Reason for Referral Outpatient (Routine) - Closed Specialty Diagnoses / Procedures Referred By Contact Refer red To Contact Diagnoses Malignant Neoplasm Of Supraglottic (HCC) Summer Pérez P.A.-C.[facility] Reg ion Procedures PET CT Skull to Thigh FDG [place] PET/CT TRUNK M.S. [address] [place] [address] [phone] Referral ID Status Reason Start Date Expiration Date Visits Requ ested Visits Authorized [id number] Closed 06/14/2019 06/13/2020 1 1 SOMNOGRAPHY TECHNICIAN Reason for Visit Outpatient (Routine) - Closed Specialty Diagnoses / Procedures Referred By Contact Refer red To Contact Diagnoses Malignant Neoplasm Of Supraglottic (HCC) Summer Pérez P.A.-C.[facility] Reg ion Procedures PET CT Skull to Thigh FDG [place] PET/CT TRUNK M.S. [address] [place] [phone] Referral ID Status Reason Start Date Expiration Date Visits Requ ested Visits Authorized [id number] Closed 06/14/2019 06/13/2020 1 1 Encounter Details Date Type Department Care Team Description 08/24/2019 Hospital Encounter Department of Summer Pérez Maligna nt Neoplasm Of Radiology, Malcom Torres MStacy Isaacs Supraglottic (HCC) Building, in [address] [place] [address] [place] [phone] [place], [place] [phone] (Work) [phone] Social History Tobacco Use Types Packs/Day Years [...] or relatives? How often do you attend pentecostal or Never 2018 mu-ism services? Do you belong to any clubs or No 02/21/2019 organizations such as pentecostal groups, unions, fraternal or athletic groups, or [...] Radiology Mark Eastman M.D., M.S. [address] [place] [address] 04/26/2022 Office Visit Otorhinolaryngology ZiebRoxanne muñiz APRN, C.N.PShital [address] [place] [phone] 04/28/2022 Appointment Radiation Oncology Ursula Aguirre M.D. [address] [place] [phone] documented as of this encounter Procedures Procedure Name Priority Date/Time Associated Comments Diagnosis PET CT SKULL TO RAD - Routine 08/24/2019 10:53 Malignant Neoplasm R esults for this THIGH (most inpatients AM POLYSOMNOGRAPHY TECHNICIAN Of Supraglottic procedur e are in and all (HCC) the results outpatients) section. documented in this encounter Results PET CT Skull to Thigh FDG (08/24/2019 10:53 AM POLYSOMNOGRAPHY TECHNICIAN) Anatomical Region Laterality Modality Body, Nuclear Medicine PET RST LOS, N/A Posi nasreen Emission Tomography (PET), PET ARZ LOS, Nuclear Medicine PET FLA Po sitron Emission Tomography (PET) LOS, Nuclear Medicine Specimen (Source) Anatomical Collection Method Collection Time Re ceived Time Location / / Volume Laterality 08/24/2019 12:36 PM POLYSOMNOGRAPHY TECHNICIAN Impressions 08/24/2019 12:59 PM POLYSOMNOGRAPHY TECHNICIAN No evidence for recurrent or metastatic supraglottic squamous cell carcinoma. Narrative 08/24/2019 12:59 PM POLYSOMNOGRAPHY TECHNICIAN EXAM: ??PET CT SKULL TO THIGH FDG [...] or metastatic supraglottic squamous cell carcinoma. Summer Pérze P.A.-C., M.S. [facility] [place] PROCEDURES documented in this encounter Visit Diagnoses Diagnosis Malignant Neoplasm Of Supraglottic (HCC) documented in this encounter Administered Medications Inactive Administered Medications - up to 3 most recent administrations Medication Order MAR Action Action Date Dose Rate Site fludeoxyglucose F 18 Given 08/24/2019 8:58 AM 15.01 millicuries injection CUSTODIAL (FDG F-18) POLYSOMNOGRAPHY TECHNICIAN 15.01 millicurie, intravenous, Once, On Tue08/24/19 at 0915, For 1 dose documented in this encounter
--- OUTSIDE RECORDS SUMMARY | 2022-03-31 14:48 | XMS_ITS | Encounter Summary ---
:1955 Author Organization [facility] Address [address] [place] [address] Care Team Providers Name Role Phone Unavailable Primary Care Provider Unavailable Encounter Details Date Type Department Care Team Description 09/20/2019 Clinical Communication Department of Ursula Aguirre Radiation Oncology in [place], [place] [address] [facility] [address] [place] [phone] Social History Tobacco Use Types Packs/Day Years [...] Appointment Radiology Mark Eastman M.D., M.S. [address] [place] [phone] 04/26/2022 Office Visit Otorhinolaryngology Roxanne Lanza APRN, C.N.P. [address] [place] [phone] 04/28/2022 Appointment Radiation Oncology Ursula Aguirre M.D. [address] [place] [address] [phone] documented as of this encounter Visit Diagnoses Not on filedocumented in this encounter
--- OUTSIDE RECORDS SUMMARY | 2022-03-31 14:48 | XMS_ITS | Encounter Summary ---
:1955 Author Organization [facility] Address [address] [place] [address] Care Team Providers Name Role Phone Unavailable Primary Care Provider Unavailable Reason for Referral Outpatient (Routine) - Closed Specialty Diagnoses / Procedures Referred By Contact Refer red To Contact Diagnoses Malignant Neoplasm Of Supraglottic (HCC) Lara Castellanos, [place] [facility] Procedures Percutaneous Endoscopic Gastrostomy REELING AND TUBING MACHINE OPERATOR, C.N.P. 200 [place] [phone] Referral ID Status Reason Start Date Expiration Date Visits Requ ested Visits Authorized [id number] Closed 06/18/2019 06/17/2020 1 1 RICT RANGER Reason for Visit Auth/Cert Specialty Diagnoses / Procedures Referred By Contact Refer red To Contact Diagnoses Malignant Neoplasm Of Supraglottic (HCC) Procedures EGD ? PERCUTANEOUS ENDOSCOPIC GASTROSTOMY/JEJUNOSTOMY Referral ID Status Reason Start Date Expiration Date Visits Requ ested Visits Authorized [id number] 1 1 Encounter Details Date Type Department Care Team Description 08/02/2019 Hospital Division of Jasmin Malignant Neopl asm Encounter Gastroenterology in [place] José Of Supra glottic [place], [place] AMAYA, C.N.P. (HCC) [address] [facility] [address] [place] [address] [place], [place] [phone] Social History Tobacco Use Types Packs/Day Years [...] do you attend muslim or Never 2018 shinto services? Do you [...] Appointment Radiology Mark Eastman M.D., M.S. [address] [place] [address] [phone] 04/26/2022 Office Visit Otorhinolaryngology Roxanne Lanza APRN, C.N.P. [address] [place] [address] [phone] 04/28/2022 Appointment Radiation Oncology Ursula Aguirre M.D. [address] [place] [phone] documented as of this encounter Procedures Procedure Name Priority Date/Time Associated Diagnosis Comme nts NON-ENDOSCOPIC TUBE Routine 08/02/2019 2:04 PM Malignant Neopl asm Results for this PROCEDURE DISTRICT RANGER Of Supraglottic procedure ar e in (HCC) the results section. EGD ? Routine 08/02/2019 2:04 PM Malignant Neoplasm PERCUTANEOUS DISTRICT RANGER Of Supraglottic ENDOSCOPIC (HCC) GASTROSTOMY/JEJUNOSTO MY documented in this encounter Results Non-Endoscopic Tube Procedure (08/02/2019 2:04 PM DISTRICT RANGER) Specimen (Source) Anatomical Collection Method Collection Time Re ceived Time Location / / Volume Laterality 08/02/2019 2:04 PM DISTRICT RANGER Impressions [facility] - 08/20/2019 2:46 PM DISTRICT RANGER Post-op Diagnoses: ? - The previously removed gastrost poonam tube was replaced with a 20 Fr LEONARDO ? gastrostomy tube. ? - No specimens collected. Narrative [facility] - 08/20/2019 2:46 PM DISTRICT RANGER Ramakrishna 6 GI GI Patient Name: Obdulia Narayan Date of : 1955 Age: 64 Gender: Female Procedure Date: 08/02/2019 Procedure: ? Non-endo scopic Tube Procedure Providers: ? Frankie Pereira MD, EJ Swanson (Fellow) Referring Provider: ?Lara Castellanos Pre-op Diagnoses: ?Routine exc hange PEG tube Recommendation: ? - Please follow the post-PEG alie mmendations including: may use PEG ? today for meds and water. ? - Repeat the tube procedure in 3 months to exchange the enteral tube. Findings: ? Upon external examination, normal -appearing skin was found surrounding ? the stomal opening. The gastrosto my tube was patent. The existing ? gastrostomy site was examined and cleaned. A 20 Fr LEONARDO gastrostomy tube ? was lubricated and placed into th e existing gastrostomy port. A total of ? 10 mL saline was used to distend the balloon that was previously tested. ? When positioned, the skin marking was noted to be 4 cm at the external ? bumper. The final tension and com pression of the abdominal wall by the ? gastrostomy tube and external bum per were checked and revealed that the ? bumper was loose and lightly touc damian the skin. Placement into the ? stomach was confirmed with flushi ng, aspiration and auscultation. The ? tube was capped, and the tube sit e was cleaned and dressed. Procedural Details: ? The patient was seen, [...] pulse, and oxygen saturations ? were monitored continuously.The p rocedure was accomplished without ? difficulty. The patient tolerated the procedure well. Complications: ? No immedia te complications. Sedation: ? No sedation administered. Attending Participation: I was present a nd participated during the entire ? pro cedure, including non-rao portions. Frankie Pereira MD 08/20/2019 2:46:20 PM Number of Addenda: 0 Lara Castellanos APRN, C.N.P. GI PROCEDURE ORDERABL ES Performing Organization Address City/State/ZIP Code Phon e Number [employer] NA documented in this encounter Visit Diagnoses Diagnosis Malignant Neoplasm Of Supraglottic (HCC) documented in this encounter
--- OUTSIDE RECORDS SUMMARY | 2022-03-31 14:48 | XMS_ITS | Encounter Summary ---
:1955 Author Organization [facility] Address [address] [place] [address] Care Team Providers Name Role Phone Unavailable Primary Care Provider Unavailable Reason for Visit Outpatient (Routine) - Canceled Specialty Diagnoses / Procedures Referred By Contact Refer red To Contact Diagnoses Malignant Neoplasm Of Supraglottic (HCC) Summer Pérez P.A.-C., [place] Reg ion Procedures [place] Swallow Function with Video and Speech or OT M.S. [address] [place] [address] [phone] Referral ID Status Reason Start Date Expiration Date Visits V isits Requested Authorized [id number] Canceled 06/14/2019 06/13/2020 1 1 Encounter Details Date Type Department Care Team Description 08/24/2019 Hospital Encounter Department of Radiology, Summer Pérez P.A.-C., M.S. [address] [place] [address] [phone] No Show [place], in Linda Nash M.S., CCC-LAUNDRY PRESS OPERATOR [address] [place] [phone] [place], [place] [address] [place] [address] [phone] Social History Tobacco Use Types Packs/Day [...] or relatives? How often do you attend anglican or Never 2018 pentecostal services? Do you belong to any clubs or No 02/21/2019 organizations such as anglican groups, unions, [employer] or athletic groups, or school groups? How [...] Sign Reading Time Taken Comments Blood Pressure 192/101 08/24/2019 12:51 PM PECAN PICKER Pulse - - Temperature - - Respiratory [...] Radiology Mark Eastman M.D., M.S. [address] [place] [address] [phone] 04/26/2022 Office Visit Otorhinolaryngology Roxanne Lanza APRN, C.N.P. [address] [place] [phone] 04/28/2022 Appointment Radiation Oncology Ursula Aguirre M.D. [address] [place] [phone] documented as of this encounter Visit Diagnoses Not on filedocumented in this encounter
--- OUTSIDE RECORDS SUMMARY | 2022-03-31 14:48 | XMS_ITS | Encounter Summary ---
:1955 Author Organization [facility] Address [address] [place] [address] Care Team Providers Name Role Phone Unavailable Primary Care Provider Unavailable Reason for Visit Outpatient (Routine) - Closed Specialty Diagnoses / Procedures Referred By Contact Refer red To Contact Otorhinolaryngology Diagnoses Malignant Neoplasm Of Supraglottic (HCC) Summer Pérez, Hung Mabry P.A.-C., M.S. M.DShital [address] [place] [address] 200 [place] [phone] Referral ID Status Reason Start Date Expiration Date Visits Requ ested Visits Authorized [id number] Closed 06/14/2019 06/13/2020 1 1 Encounter Details Date Type Department Care Team Description 08/02/2019 Office Visit Department of Bettie Mabryp jun Otorhinolaryngology in Hung Serna M.D. [place], [place] ([facility]) [address] [place] [phone] Social History Tobacco Use Types Packs/Day [...] do you attend confucianist or Never 2018 confucianism services? Do you [...] Progress Notes Roxanne Lanza, AMAYA, C.N.P. - 08/02/2019 11:00 AM CST CHIEF COMPLAINT/PURPOSE OF VISIT: 1. 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 2. Post treatment surveillance visit HISTORY OF PRESENT ILLNESS: Malignant Neoplasm Of Supraglottic (HCC) 03/13/2019 Initial Diagnosis Malignant Neoplasm Of Supraglottic (HCC) 03/26/2019 - 05/04/2019 Radiation Therapy Definitive??radiation therapy to the supraglottic tumor??to a dose of 7000??cGy in 35??fractions (once a week she received twice a day treatment) INTERVAL HISTORY: Ms. Narayan is a pleasant 64-year-old female who presents to clinic with her nrldhlbm-xj-mfo and 2 grandchildren. 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 Once a week she received twicea day treatment. She presents today overall reporting she is doing well. She continues to experience some mild sore throat and left otalgia that she feels has improved since treatment. She is eating and drinking by mouth primarily soups and liquids. She does endorse significant coughing with eating and her family tells me she will not eat in their presence due to the coughing. She and her family deny any pneumonias or lung infections. She denies odynophagia, hemoptysis and hematemesis. Her voice is hoarse but stable. She is scheduled to undergo a PEG tube change later today and visit with the animal rehabilitator an customs entry clerk regarding appropriate formulas to assisting gaining weight. She is scheduled August 09 for PET imaging video swallow CURRENT MEDICATIONS: Reviewed and updated in the EMR. ALLERGIES: Allergies Allergen Reactions ??? Penicillins Rash . PAST MEDICAL HISTORY: Past Medical History: Diagnosis Date ??? Arthritis ??? Chronic Obstructive Pulmonary Disease (HCC) ??? Diabetes Mellitus NOS ??? Dysphagia ??? Gastroesophageal Reflux Disease NOS ??? Hyperlipidemia ??? Hypertension NOS ??? Malignant Neoplasm Of Supraglottic (HCC) ??? Malignant Neoplasm Of Supraglottic (HCC) SURGICAL HISTORY: Past Surgical History: Procedure Laterality [...] week Gets together: Once a week Attends confucianism service: Never Active member of club or [...] ??? Not on file PHYSICAL EXAM: General: 64 y.o. year old female, in no acute distress. Skin: No rashes or lesions. Ears: Bilateral canals and TM's normal Nose: [place] and moist Oral Cavity: [place] and dry. Mucous membranes intact. Full dentures removed for exam. Floor of mouth, oral tongue, base of tongue all soft to palpation. Neck: No palpable lymphadenopathy. Anterior neck/submental lymphedema. PROCEDURE NOTE Procedure: Flexible laryngoscopy, fiberoptic, diagnostic Details: After topical anesthesia with lidocaine and phenylephrine, the flexible laryngoscope was inserted onthe right side. The nasal cavity, nasopharynx and oropharynx were normal. At the level of the larynxthere is post treatment edema and dry mucosa. The epiglottis appears thickened, there is yellow mucus at the left false cord/ventricle. The arytenoids, and pyriform sinuses are without obvious masses or lesions. The true vocal folds move freely bilaterally. The patient tolerated the procedure well. 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 Plan: Ms. Narayan is doing fairly well following treatment for her supraglottic tumor. She was set to have a video swallow and a PET scan August 09. This timing does not work for her family. We arrangedfor these to be moved to August 24, 2019. I will call her with the results when they're available. In the meantime, she will undergo an exchange of her PEG tube today. She will also see endocrinologyand nutrition provider. I am hopeful that these people can help her maintain or increase her weight as she reports she continues to lose weight since completion of radiation. She will require speech pathology following her video swallow to help with exercises and to rehabilitate her swallowing. Both the patient and her daughter in law verbalized understanding. PATIENT EDUCATION Ready to learn, no apparent learning barriers were identified; learning preferences include listening. Explained diagnosis and treatment plan; patient expressed understanding of the content. STRAP CUTTER documented in this encounter Plan of Treatment Upcoming Encounters Date Type Specialty Care Team Description 04/22/2022 Clinical Admitting/Central Communication Scheduling 04/26/2022 Appointment Radiology Mark Eastman M.D., M.S. [address] [place] [phone] 04/26/2022 Office Visit Otorhinolaryngology Roxanne Lanza APRN, C.N.P. [address] [place] [phone] 04/28/2022 Appointment Radiation Oncology Ursula Aguirre M.D. [address] [place] [phone] documented as of this encounter Visit Diagnoses Diagnosis Malignant Neoplasm Of Supraglottic (HCC) documented in this encounter
--- OUTSIDE RECORDS SUMMARY | 2022-03-31 14:48 | XMS_ITS | Encounter Summary ---
:1955 Author Organization [facility] Address [address] [place] [address] Care Team Providers Name Role Phone Unavailable Primary Care Provider Unavailable Encounter Details Date Type Department Care Team Description 07/16/2019 Orders Only Department of Summer Pérez, Malignant Joao plasm Of Radiation Oncology in P.A.-C., M .S. Supraglottic (HCC) [facility] a [address] [facility] (Primary Dx) [address] [place] [phone] Social History Tobacco Use Types Packs/Day Years [...] do you attend orthodox or Never 2018 faith services? Do you [...] Radiology Mark Eastman M.D., M.S. [address] [place] [phone] 04/26/2022 Office Visit Otorhinolaryngology Roxanne Lanza APRN, C.N.P. [address] [place] [phone] 04/28/2022 Appointment Radiation Oncology Ursula Aguirre M.D. 200 [place] [phone] documented as of this encounter Visit Diagnoses Diagnosis Malignant Neoplasm Of Supraglottic (HCC) - Primary documented in this encounter
--- OUTSIDE RECORDS SUMMARY | 2022-03-31 14:48 | XMS_ITS | Encounter Summary ---
:1955 Author Organization [facility] Address [address] [place] [address] Care Team Providers Name Role Phone Unavailable Primary Care Provider Unavailable Encounter Details Date Type Department Care Team Description 08/02/2019 Clinical Communication Department of Nutrition Charlene Jasso sa, in [facility] guillaume RDN, LD [address] [facility] [address] [place] [phone] Social History Tobacco Use Types Packs/Day Years [...] do you attend hinduism or Never 2018 evangelical services? Do you [...] this encounter Miscellaneous Notes Telephone Encounter - Carli Jasso RDN, JUANITO - 08/02/2019 8:26 AM CST Noted patient is scheduled for tube replacement here today but continues to be followed by dietitianlocally and patient states she prefers to continue this. I have let Natasha Brandon RDN and Gary know this plan. We would be happy to see her in the future asneeded but for now her nutrition is followed locally and they will update home tube feeding orders as needed. TH INFORMATION ASSISTANT documented in this encounter Plan of Treatment Upcoming Encounters Date Type Specialty Care Team Description 04/22/2022 Clinical Admitting/Central Communication Scheduling 04/26/2022 Appointment Radiology Mark Eastman M.D., M.S. [address] [place] [phone] 04/26/2022 Office Visit Otorhinolaryngology Roxanne Lanza APRN, C.N.P. [address] [place] [phone] 04/28/2022 Appointment Radiation Oncology Ursula Aguirre M.D. [address] [place] [phone] documented as of this encounter Visit Diagnoses Not on filedocumented in this encounter
--- OUTSIDE RECORDS SUMMARY | 2022-03-31 14:48 | XMS_ITS | Encounter Summary ---
:1955 Author Organization [facility] Address [address] [place] [address] Care Team Providers Name Role Phone Unavailable Primary Care Provider Unavailable Reason for Referral Outpatient (Routine) - Closed Specialty Diagnoses / Procedures Referred By Contact Refer red To Contact Radiation Oncology Summer Pérez P.A.-C., INDRA [facility] [address] [place] [phone] Referral ID Status Reason Start Date Expiration Date Visits Requ ested Visits Authorized [id number] Closed 08/03/2019 08/02/2020 1 1 GER PACKAGING Reason for Visit Outpatient (Routine) - Closed Specialty Diagnoses / Procedures Referred By Contact Refer red To Contact Radiation Oncology Summer Pérez P.A.-C., INDRA [facility] [address] [place] [phone] Referral ID Status Reason Start Date Expiration Date Visits Requ ested Visits Authorized [id number] Closed 08/03/2019 08/02/2020 1 1 Encounter Details Date Type Department Care Team Description 08/03/2019 - Hospital Encounter Department of Summer Pérez P.A.-C., M.S. [address] [place] [phone] Malignant Neoplasm Of 08/06/2019 Radiation Oncology Jannet Cross R.N. [address] [place] [phone] Supraglottic (HCC) in [place], (Primary Dx) [place] [address] [facility] [place] [place] [phone] Social History Tobacco Use Types Packs/Day Years [...] do you attend adventism or Never 2018 cheondoism services? Do you belong to any clubs or No 02/21/2019 organizations such as adventism groups, unions, fraternal or athletic groups, or [...] documented as of this encounter Progress Notes Jannet Cross, MarthaN. - 08/03/2019 3:30 PM CST SUBJECTIVE REASON FOR VISIT Nurse visit to follow up on sore throat SUPERVISED BY: Summer Pérez PA-C HISTORY OF PRESENT ILLNESS Obdulia Narayan is a 64 y.o. female with supraglottic squamous cell carcinoma. She completed radiation therapy on May 04, 2019. She returns to clinic today for schedule Highway Patrol Officer follow up visit. Treatment Course: 1x H&N Plan ID Fractions Dose / Fraction (cGy) Dose Treated (cGy) Dose Planned (cGy) First Treatment Last Treatment Elapsed Days F1 H&N 35 / 35 200 7000 7000 03/26/2019 05/04/2019 39 Course Summary 03/26/2019 05/04/2019 39 Patient requested nurse only visit due to concerns over billing charge as she is past treatment by 90 days. The patient reports that she developed a sore throat 4 days ago. She also noticed a cough developing2.5 weeks ago. She has also been experiencing headaches. She denies fevers but has felt chilled on occasion. She has no other new concerns or symptoms at this time. She reports that she otherwise is doing quite well. PHYSICAL EXAM General: Alert and oriented in no apparent distress and is here today with her son. ASSESSMENT / PLAN I have reviewed patient's symptoms with Summer Pérez PA-C today. Patient can trial Tylenol as needed every 6 hours for sore throat pain. She is not to exceed 4000 mg of Tylenol a day. If symptoms do not improve or if she develops a fever she is to contact her primary care provider for further evaluation. Patient stated a full understanding to plan of care going forward. She will contact us with any questions or concerns. Signed by: Jannet Cross R.N. 08/06/2019 12:32 PM MANAGER PACKAGING GER PACKAGING documented in this encounter Plan of Treatment Upcoming Encounters Date Type Specialty Care Team Description 04/22/2022 Clinical Admitting/Central Communication Scheduling 04/26/2022 Appointment Radiology Mark Eastman M.D., M.S. [address] [place] [phone] 04/26/2022 Office Visit Otorhinolaryngology Roxanne Lanza APRN, C.N.P. [address] [place] [phone] 04/28/2022 Appointment Radiation Oncology Ursula Aguirre M.D. [address] [place] [phone] Scheduled Referrals Name Type Priority Associated Order Schedule Diagnoses Radiation Oncology Outpatient Referral Routine On ce for 1 nurse visit Occurrences sta rting (clinic) 08/03/2019 unti l 08/03/2019 documented as of this encounter Visit Diagnoses Diagnosis Malignant Neoplasm Of Supraglottic (HCC) - Primary documented in this encounter
--- OUTSIDE RECORDS SUMMARY | 2022-03-31 14:48 | XMS_ITS | Encounter Summary ---
:1955 Author Organization [facility] Address [address] [place] [address] Care Team Providers Name Role Phone Unavailable Primary Care Provider Unavailable Reason for Referral Outpatient (Routine) - Closed Specialty Diagnoses / Procedures Referred By Contact Refer red To Contact Social Summer Dickens P.A.-C ., M.S. [address] [phone] Referral ID Status Reason Start Date Expiration Date Visits Requ ested Visits Authorized [id number] Closed 09/17/2019 09/16/2020 1 1 LE HAND Reason for Visit Outpatient (Routine) - Closed Specialty Diagnoses / Procedures Referred By Contact Refer red To Contact Summer Cota P.A.-C ., M.S. [facility] Region [address] [place] [phone] Referral ID Status Reason Start Date Expiration Date Visits Requ ested Visits Authorized [id number] Closed 09/17/2019 09/16/2020 1 1 Encounter Details Date Type Department Care Team Description 09/20/2019 Hospital Encounter Department of Summer Pérez P.A.-C., M.S. [address] [place] [phone] Malignant Neoplasm Of Radiation Oncology Ibeth Vanessa Supraglottic (HCC) in [place], [place] [address] [place] [phone] Social History Tobacco Use Types Packs/Day Years [...] do you attend scientology or Never 2018 rastafarian services? Do you belong to any clubs [...] ER tablet documented as of this encounter H&P Notes Ibeth Vanessa - 09/20/2019 3:00 PM CST SUBJECTIVE CHIEF COMPLAINT / REASON FOR VISIT Ms. Narayan, and her woszvalu-fu-wra Darlin Narayan, met with this social service coordinator to discuss ideas forresources to meet specific needs. HISTORY OF PRESENT ILLNESS For further information on psycho/social issues, please see the consult completed by this social service coordinator on 04/12/19. The patient is a 64 y.o. female from [place], [place] who is being seen in follow-up to radiation therapy for treatment of Patient Active Problem List Diagnosis ??? Malignant Neoplasm Of Supraglottic (HCC) ??? Dysphagia . Social Work is providing ongoing care related to coping, financial concerns, mood, and resources. OBJECTIVE Ms. Obdulia Narayan lives in [place], [place] with her son Merlin and ywapmpyx-ju-glv Darlin, as well as another of her sons, and Merlin and Darlin's 4 children. Today she and her sqrkrxio-yi-uxp were looking for ideas to better support her, as she is not eating well, is losing weight, and does not come out of her room much. She is also looking for transportation resources, not for medical appointments, but toget to various locations in her home town on occasion. ASSESSMENT Ms. Narayan's ability to speak today was reduced to a faint whisper, so it was somewhat challenging to communicate; however, the presence of her tpvwacuy-xt-cdj Darlin helped greatly. Darlin shared that Ms. Narayan has been fairly anxious lately and has stayed in her room more that she used to. We discussed the idea of Ms. Narayan seeing her primary care physician, Dr. De La Fuente, to share her concerns about mood and isolation. This social service coordinator also provided information about [facility], which might be a good way to make sure Ms. Narayan is receiving the care she needs in her home; this could also be explored at an appointment with Dr. De La Fuente. Information about assisted living options in [place] was provided, as that had been requested prior to today's consult. Finally, Ms. Narayan expressed interest in transportation options within [place], which could make it possible for her to get out independently if she feels up to it. INTERVENTIONS PLAN 1. workers compensation claims supervisor provided information on [facility] services, and how to contact. 2. workers compensation claims supervisor provided information on assisted living facilities in [place], [place]. 3. workers compensation claims supervisor explored local transportation options in [place], [place], and mailed information on [facility] to Ms. Narayan's zkhioxhn-cf-tlb. Face to face time (for billing purposes): 20 minutes documented in this encounter Plan of Treatment Upcoming Encounters Date Type Specialty Care Team Description 04/22/2022 Clinical Admitting/Central Communication Scheduling 04/26/2022 Appointment Radiology Mark Eastman M.D., M.S. [address] [place] [phone] 04/26/2022 Office Visit Otorhinolaryngology Roxanne Lanza APRN, C.N.P. [address] [place] [phone] 04/28/2022 Appointment Radiation Oncology Ursula Aguirre M.D. [address] [place] [phone] Scheduled Referrals Name Type Priority Associated Diagnoses Order S [facility] Social Work Outpatient Referral Routine Once for 1 office visit Occurrences sta rting (clinic) 09/20/2019 unti l 09/20/2019 documented as of this encounter Visit Diagnoses Diagnosis Malignant Neoplasm Of Supraglottic (HCC) documented in this encounter
--- OUTSIDE RECORDS SUMMARY | 2022-03-31 14:48 | XMS_ITS | Encounter Summary ---
:1955 Author Organization [facility] Address [address] [place] [address] Care Team Providers Name Role Phone Unavailable Primary Care Provider Unavailable Reason for Referral Outpatient (Routine) - Closed Specialty Diagnoses / Procedures Referred By Contact Refer red To Contact Nutrition Diagnoses Malignant Neoplasm Of Supraglottic (HCC) Summer Pérez P.A.-C., [facility] [address] [place] [address] [phone] Referral ID Status Reason Start Date Expiration Date Visits Requ ested Visits Authorized [id number] Closed 06/14/2019 06/13/2020 1 1 TRAUMA Reason for Visit Outpatient (Routine) - Closed Specialty Diagnoses / Procedures Referred By Contact Refer red To Contact Nutrition Diagnoses Malignant Neoplasm Of Supraglottic (HCC) Summer Pérez P.A.-C., [facility] [address] [place] [phone] Referral ID Status Reason Start Date Expiration Date Visits Requ ested Visits Authorized [id number] Closed 06/14/2019 06/13/2020 1 1 Encounter Details Date Type Department Care Team Description 08/03/2019 Hospital Encounter Department of Summer Pérez P.A.-C., M.S. [address] [place] [phone] Malignant Neoplasm Radiation Oncology Natasha Brandon C, RDN [address] [place] [phone] Of Supraglottic in [place], (HCC) [place] [address] [place] [phone] Social History Tobacco Use Types Packs/Day Years [...] do you attend mandaeism or Never 2018 judaism services? Do you belong to any clubs [...] encounter Progress Notes Natasha Brandon, AYLEEN - 08/03/2019 3:00 PM CST CHIEF COMPLAINT/REASON FOR VISIT ??Malignant Neoplasm Of Supraglottic (HCC) (C32.1)? HISTORY OF PRESENT ILLNESS Mrs. 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 Radiotherapy to the supraglottic tumor initiated on March 26, 2019; completed April,. ?? Met with patient??and??her son.?Patient??is hard of hearing and reads lips. For phone contact Merlin (son)??states, his Darlin is the one to call, . ?? 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 ??She does not drink alcohol. ?? Medical Tests and Procedures/Biochemical Data Swallow evaluation on 03/28/19 showed mild dysphagia.??With side-effects of treatment??increased??difficulty swallowing due to pain and gagging. ?? Nutrition Focused Physical Findings Mouth/throat/esophagus:??some throat soreness and coughing particularly at night Nausea/vomiting:??denies nausea or vomiting Bowels:??no diarrhea or constipation ?? Tube Information Gastrostomy tube??placed by GI 04/17/19 LEONARDO 20 Belgian balloon gastrostomy, ENFit [facility] ?? Food/Nutrient Related History She reports that she started eating solid foods and stopped her tube feeding. She reports that she hasn't used her PEG tube since 07/11. She reports her throat has become more sore since she has started eating. She reports not having anything to eat yesterday evening or this morning. She reports that she plans to start using her tube feeding formula again today when she gets home. ?? Weight History ?Current weight 68.6 kg - 5.1 kg (6.9%) loss since 06/14/19 Usual body weight: 230# (104.5??kg) last year, per patient 03/16/19: 88.5 kg 03/28/19: 87.7 kg 04/04/19: 86.3 kg 04/11/19: 83.5 kg 04/12/19: 82.5 kg--5.8% loss from treatment start weight 04/18/19: 83.6 kg 04/26/19:??82.4 kg 05/03/19:??81.3 kg 05/24/19: 75.0 kg 06/14/19: 73.7 kg ?? Height: 167 cm ?? Estimation of Nutritional Needs using 82.5 kg [...] gastrostomy was placed??04/17/19. ?? Weight is decreased 15??kg (33??lbs) since tube feeding initiated.?Patient had her tube replaced yesterday. She has an appointment for a swallow evaluation in August. ?? NUTRITION DIAGNOSIS Inadequate oral intake (NI-2.1)??related [...] containers/day Administration Method: Intermittent gravity/syringe Infusion Schedule: ??1-1-1-1-1 Water Flushes: ??60 mL before and after [...] ?? Oral Program: as tolerated ?? INTERVENTION Encouraged patient to refrain from eating by mouth until after her swallow evaluation is complete. Discussed her continued weight loss and importance of nutrition for healing and weight maintenance. Discussed continuing with her tube feeding with goal of??5 cartons Nutren 1.5 a day??to meet estimated needs. ??Reviewed taking only one carton at a time. She will take one carton every 2.5 hours. She reports improved tolerance with waiting 2.5 hours between feedings. ??She was agreeable to continuing with her tube feeding. She will aim for 2-3 cups water flushes via feeding tube spread out throughout the day in addition to the 60 ml flushes before and after feedings. ?? Care Coordination Authorization on file to speak with DME/Infusion Company: yes DME/Infusion Company that will provide needed supplies for home: ??[employer]??. They delivered supplies??04/18/19. ?? Indication for Ongoing [...] ml flush beforeand after each feeding. 2. ??Fluid by flush or mouth to meet estimated fluid needs. ??She will provide an additional 240 ml fluid flush 2-3 times throughout the day via tube feeding. ?? Follow-up Plan Follow up??on 08/30/19. ?? Time spent with patient (minutes):15 ?? TRAUMA documented in this encounter Plan of Treatment Upcoming Encounters Date Type Specialty Care Team Description 04/22/2022 Clinical Admitting/Central Communication Scheduling 04/26/2022 Appointment Radiology Mark Eastman M.D., M.S. [address] [place] [phone] 04/26/2022 Office Visit Otorhinolaryngology Roxanne Lanza APRN, C.N.P. [address] [place] [phone] 04/28/2022 Appointment Radiation Oncology Ursula Aguirre M.D. [address] [place] [phone] Scheduled Referrals Name Type Priority Associated Diagnoses Order S chedule Nutrition - Outpatient Referral Routine Malignant Neoplasm On ce for 1 Medical nutrition Of Supraglottic Occurre nces therapy consult (HCC) starting (clinic) until 9 documented as of this encounter Visit Diagnoses Diagnosis Malignant Neoplasm Of Supraglottic (HCC) documented in this encounter
--- OUTSIDE RECORDS SUMMARY | 2022-03-31 14:48 | XMS_ITS | Encounter Summary ---
:1955 Author Organization [facility] Address [address] [place] [address] Care Team Providers Name Role Phone Unavailable Primary Care Provider Unavailable Reason for Referral Outpatient (Routine) - Closed Specialty Diagnoses / Procedures Referred By Contact Refer red To Contact Nutrition Diagnoses Malignant Neoplasm Of Supraglottic (HCC) Summer Pérez P.A.-C., [facility].S. [address] [place] [address] [phone] Referral ID Status Reason Start Date Expiration Date Visits Requ ested Visits Authorized [id number] Closed 08/03/2019 08/02/2020 1 1 CTOR OF FIRST IMPRESSIONS Encounter Details Date Type Department Care Team Description 08/03/2019 Orders Only Department of Summer Pérez Malignant Joao plasm Of Radiation Oncology in [place], M .S. Supraglottic (HCC) [facility] [address] [place] [address] (Primary Dx) [address] [place] [phone] Social History Tobacco Use Types Packs/Day Years [...] or relatives? How often do you attend denominational or Never 2018 episcopalian services? Do you belong to any clubs or No 02/21/2019 organizations such as denominational groups, unions, Michael Bieker or athletic groups, or school groups? How [...] Radiology Mark Eastman M.D., M.S. [address] [place] [phone] 04/26/2022 Office Visit Otorhinolaryngology Roxanne Lanza, AD OPERATIONS COORDINATOR, C.N.P. [address] [place] [phone] 04/28/2022 Appointment Radiation Oncology Ursula Aguirre M.D. [address] [place] [phone] Scheduled Referrals Name Type Priority Associated Diagnoses Order S chedule Nutrition - Medical Outpatient Referral Routine Malignant Neop lasm Of Expected: nutrition therapy Supraglottic (HCC) 08/15 consult (clinic) (Approximat e), Expires: 08/03/2022 documented as of this encounter Visit Diagnoses Diagnosis Malignant Neoplasm Of Supraglottic (HCC) - Primary documented in this encounter
--- OUTSIDE RECORDS SUMMARY | 2022-03-31 14:48 | XMS_ITS | Encounter Summary ---
:1955 Author Organization [facility] Address [address] [place] [address] Care Team Providers Name Role Phone Unavailable Primary Care Provider Unavailable Encounter Details Date Type Department Care Team Description 09/21/2019 Orders Only Department of Summer Pérez, Malignant Joao plasm Of Radiation Oncology in P.A.-C., M .S. Supraglottic (HCC) [facility] a [address] [facility] (Primary Dx) [address] [place] [phone] Social History Tobacco Use Types Packs/Day Years [...] do you attend adventism or Never 2018 tenriism services? Do you belong to any clubs [...] Radiology Mark Eastman M.D., M.S. [address] [place] [phone] 04/26/2022 Office Visit Otorhinolaryngology Roxanne Lanza APRN, C.N.P. [address] [place] [phone] 04/28/2022 Appointment Radiation Oncology Ursula Aguirre M.D. [address] [place] [phone] documented as of this encounter Results (ABNORMAL) S-TSH (Thyroid-Stimulating Hormone - Sensitive) (03/03/2020 10:37 AM CDT) P athologist Signature TSH, Sensitive 7.5 (H) 0.3 - 4.2 03/03/2020 OWAT mIU/L 3:09 PM CDT Comment: Biotin has been identified by the tanesha cturer as a potential interfering substance. ??Higher concentr [...] Organization Address City/State/ZIP Code Phon e Number [facility]- [address] [place] [address] [place] [address] System in [place] 2199 documented in this encounter Visit Diagnoses Diagnosis Malignant Neoplasm Of Supraglottic (HCC) - Primary documented in this encounter
--- OUTSIDE RECORDS SUMMARY | 2022-03-31 14:48 | XMS_ITS | Encounter Summary ---
:1955 Author Organization [facility] Address [address] [place] [address] Care Team Providers Name Role Phone Unavailable Primary Care Provider Unavailable Encounter Details Date Type Department Care Team Description 08/30/2019 Orders Only Department of Summer Pérez, Malignant Joao plasm Of Radiation Oncology in P.A.-C., M .S. Supraglottic (HCC) [facility] a [address] [facility] (Primary Dx) [address] [place] [phone] Social History Tobacco Use Types Packs/Day Years [...] do you attend yazidi or Never 2018 restoration services? Do you [...] Radiology Mark Eastman M.D., M.S. [address] [place] [phone] 04/26/2022 Office Visit Otorhinolaryngology Roxanne Lanza APRN, C.N.P. [address] [place] [phone] 04/28/2022 Appointment Radiation Oncology Ursula Aguirre M.D. [address] [place] [phone] documented as of this encounter Visit Diagnoses Diagnosis Malignant Neoplasm Of Supraglottic (HCC) - Primary documented in this encounter
--- OUTSIDE RECORDS SUMMARY | 2022-03-31 14:48 | XMS_ITS | Encounter Summary ---
:1955 Author Organization [facility] Address [address] [place] [address] Care Team Providers Name Role Phone Unavailable Primary Care Provider Unavailable Reason for Referral Outpatient (Routine) - Closed Specialty Diagnoses / Procedures Referred By Contact Refer red To Contact Radiation Oncology Summer Pérez P.A.-C., [facility] [address] [place] [phone] Referral ID Status Reason Start Date Expiration Date Visits Requ ested Visits Authorized [id number] Closed 08/03/2019 08/02/2020 1 1 ITY ASSURANCE SPECIALIST Encounter Details Date Type Department Care Team Description 08/03/2019 Orders Only Department of Radiation Summer Pérez P.A .-C., Oncology in [place] [address] [place] [phone] (Wo rk) Social History Tobacco Use Types [...] or relatives? How often do you attend episcopalian or Never 2018 denominational services? Do you belong to any clubs or No 02/21/2019 organizations such as episcopalian groups, unions, fraternal or athletic groups, or [...] Radiology Mark Eastman M.D., M.S. [address] [place] [phone] 04/26/2022 Office Visit Otorhinolaryngology Roxanne Lanza APRN, C.N.P. [address] [place] [phone] 04/28/2022 Appointment Radiation Oncology Ursula Aguirre M.D. [address] [place] [phone] Scheduled Referrals Name Type Priority Associated Order Schedule Diagnoses Radiation Oncology Outpatient Referral Routine 1 Occurrences nurse visit starting 2018 (clinic) until 0 documented as of this encounter Visit Diagnoses Not on filedocumented in this encounter
--- OUTSIDE RECORDS SUMMARY | 2022-03-31 14:48 | XMS_ITS | Encounter Summary ---
:1955 Author Organization [facility] Address [address] [place] [address] Care Team Providers Name Role Phone Unavailable Primary Care Provider Unavailable Reason for Referral Outpatient (Routine) - Closed Specialty Diagnoses / Procedures Referred By Contact Refer red To Contact Nutrition Diagnoses Malignant Neoplasm Of Supraglottic (HCC) Summer Pérez P.A.-C., [facility] [address] [place] [address] [phone] Referral ID Status Reason Start Date Expiration Date Visits Requ ested Visits Authorized [id number] Closed 08/03/2019 08/02/2020 1 1 MBLY AND PACKING SUPERVISOR Reason for Visit Outpatient (Routine) - Closed Specialty Diagnoses / Procedures Referred By Contact Refer red To Contact Nutrition Diagnoses Malignant Neoplasm Of Supraglottic (HCC) Summer Pérez P.A.-C., [facility].S [address] [place] [phone] Referral ID Status Reason Start Date Expiration Date Visits Requ ested Visits Authorized [id number] Closed 08/03/2019 08/02/2020 1 1 Encounter Details Date Type Department Care Team Description 08/30/2019 Hospital Encounter Department of Summer Pérez P.A.-C., M.S. [address] [place] [phone] Malignant Neoplasm Radiation Oncology Natasha Brandon C, RDN [address] [place] [phone] Of Supraglottic in [place], (HCC) [place] [address] [place] [phone] Social History Tobacco Use Types Packs/Day Years [...] do you attend holiness or Never 2018 jewish services? Do you belong to any clubs [...] encounter Progress Notes Natasha Brandon, AYLEEN - 08/30/2019 2:00 PM CST CHIEF COMPLAINT/REASON FOR VISIT ??Malignant Neoplasm Of Supraglottic (HCC) (C32.1)? HISTORY OF PRESENT ILLNESS Mrs. 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 Radiotherapy to the supraglottic tumor initiated on March 26, 2019; completed April,. ?? Met with patient??and??her [id number].?Patient??is hard of hearing and reads lips. For phonecontact Merlin (son)??states, his Darlin is the one to call, . ?? 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 ??She does not drink alcohol. ?? Medical Tests and Procedures/Biochemical Data Swallow evaluation on 03/28/19 showed mild dysphagia.??With side-effects of treatment??increased??difficulty swallowing due to pain and gagging. Swallow evaluation scheduled on 08/24/19: No show ?? Nutrition Focused Physical Findings Mouth/throat/esophagus:??some throat soreness - improved Nausea/vomiting:??denies nausea or vomiting Bowels:??no diarrhea or constipation ?? Tube Information Gastrostomy tube??placed by GI 04/17/19 LEONARDO 20 Zimbabwean balloon gastrostomy, ENFit connector ?? Food/Nutrient Related History She reports that she is eating solid food such as fried chicken, bread, pudding, mashed potatoes andgravy, cookies, pasta salad, soup, spaghetti. She is drinking water, coffee and tea. She reports sheavoids juice because this finley her throat. It is unclear how much of the tube feeding formula she is actually taking in. ?? Weight History ?Current weight 66.8??kg - 6.9 kg (9.4%) loss since??06/14/19 Height: 167 cm BMI: 23.9 kg/m2 Usual body weight: 230# (104.5??kg) last year, per patient 03/16/19: 88.5 kg 03/28/19: 87.7 kg 04/04/19: 86.3 kg 04/11/19: 83.5 kg 04/12/19: 82.5 kg--5.8% loss from treatment start weight 04/18/19: 83.6 kg 04/26/19:??82.4 kg 05/03/19:??81.3 kg 05/24/19: 75.0 kg 06/14/19: 73.7 kg 08/03/19: 68.6 kg ?? Estimation of Nutritional Needs using 82.5 [...] feeding gastrostomy was placed??04/17/19. ?? Weight is decreased??16.8??kg (37??lbs) since tube feeding initiated.?Patient had her tube replaced 08/02/19. She missed her Fluoroscopic exam appointment on 08/24/19. ?? NUTRITION DIAGNOSIS Inadequate oral intake (NI-2.1)??related [...] of nutrition for healing and weight maintenance. Also discussed guidelines for discontinuing her tube feeding including weight stabilization. We reviewed her calorie, protein and fluid needs. She was encouraged to continue with her tube feeding and record everything she is taking in through her tube and by mouth. Reviewed taking only one carton of nutren 1.5 at a time. She will take one carton every 2.5 hours. She reports improved tolerance with waiting 2.5 hours between feedings. ??She was agreeable to continuing with her tube feeding. She will aim for 7 cups fluid per day by mouth and tube in addition to the 60 ml flushes before and after feedings.? Care Coordination Authorization on file to speak with DME/Infusion Company: yes DME/Infusion Company that will provide needed supplies for home: ??[employer]??. They delivered supplies??04/18/19. ?? Indication for Ongoing Enteral Nutrition ??Home Enteral Nutrition, dysphagia, suqpaglottic squamous cell carcinoma. Anticipated duration of tube feedings is 12 months. This is??the sole source of nutrition. ?? MONITORING AND EVALUATION Nutrition parameter to monitor: ??Weight Desired Outcome: ??Prevent further weight loss Patient Goal(s): 1. ??Nutren 1.5, 5 containers a day, schedule of?or as tolerated with 60 ml flush beforeand after each feeding. 2. ??9 cups total fluid by flush or mouth to meet estimated fluid needs. ? Follow-up Plan Follow up??in 2 weeks. ?? Time spent with patient (minutes):15 MBLY AND PACKING SUPERVISOR documented in this encounter Plan of Treatment Upcoming Encounters Date Type Specialty Care Team Description 04/22/2022 Clinical Admitting/Central Communication Scheduling 04/26/2022 Appointment Radiology Mark Eastman M.D., M.S. [address] [place] [phone] 04/26/2022 Office Visit Otorhinolaryngology Roxanne Lanza APRN, C.N.P. [address] [place] [phone] 04/28/2022 Appointment Radiation Oncology Ursula Aguirre M.D. [address] [place] [phone] Scheduled Referrals Name Type Priority Associated Diagnoses Order S chedule Nutrition - Outpatient Referral Routine Malignant Neoplasm On ce for 1 Medical nutrition Of Supraglottic Occurre nces therapy consult (HCC) starting (clinic) until 0 documented as of this encounter Visit Diagnoses Diagnosis Malignant Neoplasm Of Supraglottic (HCC) documented in this encounter
--- OUTSIDE RECORDS SUMMARY | 2022-03-31 14:49 | XMS_ITS | Encounter Summary ---
:1955 Author Organization [facility] Address [address] [place] [address] Care Team Providers Name Role Phone Unavailable Primary Care Provider Unavailable Reason for Visit Radiation Therapy (Routine) - Closed Specialty Diagnoses / Procedures Referred By Contact Refer red To Contact Diagnoses Malignant Neoplasm Of Supraglottic (HCC) Ursula Aguirre M.D. [facility] Procedures Prior Auth Rad Tx OR IMRT COMPLEX [address] [place] [phone] Referral ID Status Reason Start Date Expiration Date Visits Requ ested Visits Authorized [id number] Closed 03/15/2019 03/14/2020 35 35 Encounter Details Date Type Department Care Team Description 05/02/2019 Hospital Encounter Department of Radiation Bud Aguirre I., [place] [address] [facility] [address] [place] [phone] Social History Tobacco Use Types Packs/Day Years [...] or relatives? How often do you attend restoration or Never 2018 alevism services? Do you belong to any clubs or No 02/21/2019 organizations such as restoration groups, unions, fraternal or athletic groups, or [...] mouth every 4 (four) hours. HYDROcodone-acetaminophen Take 10 mL by 240 mL 0 019 05/07/2019 (HYCET) 7.5-325 mg/15 mL mouth as directed solutionIndications: Indication: Prolonged Acute Prolonged Acute Pain/Traumatic Injury Pain/Traumatic Injury. Every 4-6 hours for pain ibuprofen (ADVIL,MOTRIN) Take 600 mg by 0 08/02/2019 200 mg capsule mouth every 6 (six) hours as needed for pain. ibuprofen (ADVIL,MOTRIN) Three Times A Day 0 06/1510/22/2021 600 mg tablet as needed losartan (COZAAR) 100 mg Take 100 mg by 0 05/03/2019 tablet mouth daily. Restarted 04/01 after completion of antibiotic therapy. metFORMIN (GLUCOPHAGE) 500 2 (two) times a 11 11/1311/02/2019 mg tablet day. metFORMIN (GLUCOPHAGE) 500 Daily 0 8 10/16/2021 mg tablet nicotine (NICODERM CQ) 14 Place 1 patch on 03/1508/02/2019 mg/24 hr patch the skin. nicotine [...] Appointment Radiology Mark Eastman M.D., M.S. [address] [place] [phone] 04/26/2022 Office Visit Otorhinolaryngology Roxanne Lanza APRN, C.N.P. [address] [place] [address] [phone] 04/28/2022 Appointment Radiation Oncology Ursula Aguirre M.D. [address] [place] [address] [phone] documented as of this encounter Visit Diagnoses Not on filedocumented in this encounter
--- OUTSIDE RECORDS SUMMARY | 2022-03-31 14:49 | XMS_ITS | Encounter Summary ---
:1955 Author Organization [facility] Address [address] [place] [address] Care Team Providers Name Role Phone Unavailable Primary Care Provider Unavailable Reason for Referral Outpatient (Routine) - Closed Specialty Diagnoses / Procedures Referred By Contact Refer red To Contact Radiation Oncology Summer Pérez P.A.-C., INDRA [facility] M.S. [address] [place] [address] Referral ID Status Reason Start Date Expiration Date Visits Requ ested Visits Authorized [id number] Closed 05/03/2019 05/02/2020 1 1 Scheduling Instructions Coordinate with diet appt. Radiation Therapy (Routine) - Canceled Specialty Diagnoses / Procedures Referred By Contact Refer red To Contact Diagnoses Malignant Neoplasm Of Supraglottic (HCC) Ursula Aguirre M.D. [facility] Procedures Management Visit [address] [place] [phone] Referral ID Status Reason Start Date Expiration Date Visits V isits Requested Authorized [id number] Canceled 03/15/2019 03/14/2020 1 1 Reason for Visit Radiation Therapy (Routine) - Canceled Specialty Diagnoses / Procedures Referred By Contact Refer red To Contact Diagnoses Malignant Neoplasm Of Supraglottic (HCC) Ursula Aguirre M.D. [facility] Region Procedures Management Visit [address] [place] [address] Referral ID Status Reason Start Date Expiration Date Visits Rico iqbal Requested Authorized [id number] Canceled 03/15/2019 03/14/2020 1 1 Encounter Details Date Type Department Care Team Description 05/03/2019 Hospital Encounter Department of Ursula Aguirre Neoplasm Of Radiation Oncology Kimberley Bacon Supraglottic (HCC) in [place], [address] [place], [place] [address] [facility] [address] [place], [place] [phone] (Work) [phone] Social History Tobacco Use Types Packs/Day Years [...] or relatives? How often do you attend rastafari or Never 2018 nondenominational services? Do you belong to any clubs or No 02/21/2019 organizations such as rastafari groups, unions, fraternal or athletic groups, or [...] Sign Reading Time Taken Comments Blood Pressure 145/68 05/03/2019 10:17 AM CDT Pulse 85 05/03/2019 10:17 AM CDT Temperature 36 ??C (96.8 ??F) 05/03/2019 10:17 AM CDT Respiratory Rate - - Oxygen Saturation - - Inhaled Oxygen Concentration - - Weight 81.3 kg (179 lb 3.7 oz) 05/03/2019 10:17 AM CDT Height - - Body Mass Index 29.22 04/18/2019 8:26 AM CDT documented in this [...] (HYDRODIURIL) 25 mg tablet mouth every evening. sulfamethoxazole-trimethopr Take 1 tablet by 10 tablet 0 05/08/2019 im (BACTRIM DS) 800-160 mg mouth every 12 per tablet (twelve) hours for 5 days. acetaminophen (TYLENOL) 500 Take 500 mg by [...] (twelve) hours. documented as of this encounter Progress Notes Ursula Aguirre M.D. 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 reports that she feels fair today. She is with her son who is talking for her as that increases her pain. She states that her pain today is a 4 on a 0-10 pain scale. It is worse with speaking or eating. She is taking all of her nutrition by tube. She is taking about 4 cansper day with a goal of 5. She states that 2 cans at a time can make her nauseous. She has been able to do 1 1/2 cans at a time. Yesterday she had 4. She is doing the water flushes. She has had redness and tenderness around the site for the last two days. She has had no fevers or chills. She is allergic to penicillin. OBJECTIVE BP 145/68 (BP Location: Right arm, Patient Position: Sitting, Cuff Size: Regular) Pulse 85 Temp 36 ??C (Temporal) Wt 81.3 kg BMI 29.22 kg/m?? PHYSICAL EXAM General appearance: alert, appears stated age, cooperative and no distress Throat: no mucositis in the posterior oropharynx is noted. No thrush Neck: She has moderate erythema and tanning, but no dry or moist desquamation of the skin Abdomen: She has erythema and tenderness around her PEG tube site. 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 I congratulated her on finishing her treatments tomorrow. She has done very well. We discussed her skin care. She might still develop desquamation. I provided her with a brochure on a moist skin reaction. She will return to see us again for a nurse visit onTuesday and we can reassess and teach her then with Jannet Cross. She has a cellulitis around her PEGtube site. I have provided them with a prescription for Bactrim DS for 5 days as she is allergic to Penicillin. We will continue as planned and she will complete her treatments tomorrow. We will see her back in 4-6 weeks for a follow-up. We will have her see our chemistry technician at the same time. Signed by: Ursula Aguirre M.D. 05/03/2019 1:58 PM documented in this encounter Miscellaneous Notes Addendum Note - Ursula Aguirre M.D. - 05/03/2019 11:30 AM CDT Encounter addended by: Ursula Aguirre M.D. on: 05/03/2019 2:06 PM Actions taken: LOS modified documented in this encounter Plan of Treatment Upcoming Encounters Date Type Specialty Care Team Description 04/22/2022 Clinical Admitting/Central Communication Scheduling 04/26/2022 Appointment Radiology Mark Eastman M.D., M.S. [address] [place] [phone] 04/26/2022 Office Visit Otorhinolaryngology Roxanne Lanza APRN, C.N.P. [address] [place] [phone] 04/28/2022 Appointment Radiation Oncology Ursula Aguirre M.D. [address] [place] [phone] Scheduled Orders Name Type Priority Associated Diagnoses Order S chedule Management Visit Radiation Oncology Routine Malignant Neoplasm Of Once for 1 Supraglottic (HCC) Occurrenc es starting 05/03/2019 unti l 05/03/2019 Scheduled Referrals Name Type Priority Associated Diagnoses Order S chedule Radiation Oncology Outpatient Referral Routine Ex pected: office visit 06/07/2019 (clinic) (Approximate), Expires: 05/03/2020 documented as of this encounter Visit Diagnoses Diagnosis Malignant Neoplasm Of Supraglottic (HCC) documented in this encounter
--- OUTSIDE RECORDS SUMMARY | 2022-03-31 14:49 | XMS_ITS | Encounter Summary ---
:1955 Author Organization [facility] Address [address] [place] [address] Care Team Providers Name Role Phone Unavailable Primary Care Provider Unavailable Encounter Details Date Type Department Care Team Description 06/14/2019 Ancillary Procedure Department of Oncology Social History [...] or relatives? How often do you attend religious or Never 2018 confucianism services? Do you belong to any clubs or No 02/21/2019 organizations such as religious groups, unions, fraternal or athletic groups, or [...] Radiology Mark Eastman M.D., M.S. [address] [place] [phone] 04/26/2022 Office Visit Otorhinolaryngology Roxanne Lanza, FABRIC AND TEXTILE FACTORY WORKER, C.N.P. [address] [place] [phone] 04/28/2022 Appointment Radiation Oncology Ursula Aguirre M.D. [address] [place] [phone] documented as of this encounter Procedures Procedure Name Priority Date/Time Associated Diagnosis Comme nts ONCOLOGY IMAGE EXAM Routine 06/14/2019 3:35 PM Re sults for this CDT procedure are i n the results section. documented in this encounter Results Video-Oral Cavity-Oncology Image Exam (06/14/2019 3:35 PM CDT) Specimen (Source) Anatomical Location Collection Method / Collectio n Time Received Time / Laterality Volume Narrative IIMS - 06/15/2019 10:13 AM CDT This order has been created [...]
--- OUTSIDE RECORDS SUMMARY | 2022-03-31 14:49 | XMS_ITS | Encounter Summary ---
:1955 Author Organization [facility] Address [address] [place] [address] Care Team Providers Name Role Phone Unavailable Primary Care Provider Unavailable Reason for Referral Outpatient (Routine) - Canceled Specialty Diagnoses / Procedures Referred By Contact Refer red To Contact Nutrition Diagnoses Malignant Neoplasm Of Supraglottic (HCC) Summer Pérez P.A.-C., INDRA [facility] [address] [place] [phone] Referral ID Status Reason Start Date Expiration Date Visits V isits Requested Authorized [id number] Canceled 05/03/2019 05/02/2020 1 1 Reason for Visit Outpatient (Routine) - Canceled Specialty Diagnoses / Procedures Referred By Contact Refer red To Contact Nutrition Diagnoses Malignant Neoplasm Of Supraglottic (HCC) Summer Pérez P.A.-C., INDRA [facility] [address] [place] [phone] Referral ID Status Reason Start Date Expiration Date Visits V isits Requested Authorized [id number] Canceled 05/03/2019 05/02/2020 1 1 Encounter Details Date Type Department Care Team Description 06/14/2019 Hospital Encounter Department of Summer Pérez P.A.-C., M.S. [address] [place] [phone] Malignant Neoplasm Radiation Oncology RomaNatasha villarreal, RDN [address] [place] [phone] Of Supraglottic in [place], (HCC) [place] [address] [place] [phone] Social History Tobacco Use Types Packs/Day Years [...] do you attend spiritism or Never 2018 worship services? Do you belong to any clubs [...] Chew 81 mg every 0 tablet evening. CaterCow Aspirin diaper,brief,adult,disposab Bag: (36 each) 36 each 1 2 01/2019 le (DEPEND UNDERWEAR FOR WOMEN XL) misc fluticasone propionate Administer 1 spray 0 01/13 (FLONASE) 50 mcg/actuation into each nostril nasal spray daily as needed for allergies. hydroCHLOROthiazide Take 25 mg by 11 02/18/2019 (HYDRODIURIL) 25 mg tablet mouth every evening. fluconazole (DIFLUCAN) 40 2.5 mL (100 mg 35 mL 0 201806/28/2019 mg/mL suspension total) by gastric tube route daily for 14 days. acetaminophen (TYLENOL) 500 Take 500 mg [...] encounter Progress Notes Natasha Brandon RDN - 06/14/2019 3:30 PM CDT CHIEF COMPLAINT/REASON FOR VISIT ??Malignant Neoplasm Of Supraglottic (HCC) (C32.1)? HISTORY OF PRESENT ILLNESS Mrs. 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 Radiotherapy to the supraglottic tumor initiated on March 26, 2019; anticipated date of completion is May 04, 2019.? Met with patient??and??her son.?Patient??is hard of hearing and reads lips. For phone contact Merlin (son)??states, his Darlin is the one to call, . ?? 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 ??She does not drink alcohol. ?? Medical Tests and Procedures/Biochemical Data Swallow evaluation on 03/28/19 showed mild dysphagia.??With side-effects of treatment??increased??difficulty swallowing due to pain and gagging. ?? Nutrition Focused Physical Findings Mouth/throat/esophagus:??dry??mouth, dry, sore throat, reports some coughing Nausea/vomiting: denies nausea or vomiting Bowels:??no diarrhea or constipation ?? Tube Information Gastrostomy tube??placed by GI 04/17/19 LEONARDO 20 [place] balloon gastrostomy, ENFit connector ?? Food/Nutrient Related History She is not able to take anything by mouth currently related to pain from an infection. ?? Weight History Current weight 73.7 kg - 1.3 kg (1.7%) loss since 05/24/19 Usual body weight: 230# (104.5??kg) last year, per patient 8/02/19: 88.5 kg 03/28/19: 87.7 kg 04/04/19: 86.3 kg 04/11/19: 83.5 kg 04/12/19: 82.5 kg--5.8% loss from treatment start weight 04/18/19: 83.6 kg 04/26/19:??82.4 kg 05/03/19:??81.3 kg 05/24/19: 75.0 kg ?? Height: 167 cm ?? Estimation [...] feeding gastrostomy was placed??04/17/19. ?? Weight is down 1.3??kg (2.9??lbs) from 05/24/19 and down 9.9 kg (21.8 lbs) since tube feeding initiated.?Patient reports taking in 4-5 cartons of feeding per day. She reports that she is not able totake in 2 cartons at one time. ?? She denies nausea and vomiting.?She reports her urine is light in color. ?? NUTRITION DIAGNOSIS Inadequate oral intake (NI-2.1)??related [...] containers/day Administration Method: Intermittent gravity/syringe Infusion Schedule: ?? Water Flushes: ??60 mL before and after [...] Oral Program: as tolerated ?? INTERVENTION Encouraged goal of??5 cartons Nutren 1.5 a day??to meet estimated needs. ??Reviewed taking only one carton at a time. Discussed taking one carton every 2 hours. She plans to write down the time she takes each carton to ensure she is getting in 5 each day. ??Discussed increasing fluid flushes now that she is unable to take anything by mouth. She will aim for 3 cups water flushes via feeding tube spread out throughout the day in addition to the 60 ml flushes before and after feedings. Care Coordination Authorization on file to speak with DME/Infusion Company: yes DME/Infusion Company that will provide needed supplies for home: ??[place]??. They delivered supplies??04/18/19. ?? Indication for Ongoing [...] or mouth to meet estimated fluid needs. She will provide an additional 240 ml fluid flush 3 times throughout the day via tube feeding. ?? Follow-up Plan Follow up??to coincide with MD follow up post-treatment. Follow up in 6 weeks. ?? Time spent with patient (minutes):15 documented in this encounter Plan of Treatment Upcoming Encounters Date Type Specialty Care Team Description 04/22/2022 Clinical Admitting/Central Communication Scheduling 04/26/2022 Appointment Radiology Mark Eastman M.D., M.S. [address] [place] [phone] 04/26/2022 Office Visit Otorhinolaryngology Roxanne Lanza APRN, C.N.P. [address] [place] [phone] 04/28/2022 Appointment Radiation Oncology Ursula Aguirre M.D. [address] [place] [phone] Scheduled Referrals Name Type Priority Associated Diagnoses Order S chedule Nutrition - Outpatient Referral Routine Malignant Neoplasm On ce for 1 Medical nutrition Of Supraglottic Occurre nces therapy consult (HCC) starting (clinic) until 9 documented as of this encounter Visit Diagnoses Diagnosis Malignant Neoplasm Of Supraglottic (HCC) documented in this encounter
--- OUTSIDE RECORDS SUMMARY | 2022-03-31 14:49 | XMS_ITS | Encounter Summary ---
:1955 Author Organization [facility] Address [address] [place] [address] Care Team Providers Name Role Phone Unavailable Primary Care Provider Unavailable Reason for Referral Outpatient (Routine) - Closed Specialty Diagnoses / Procedures Referred By Contact Refer red To Contact Diagnoses Malignant Neoplasm Of Supraglottic (HCC) Lara Castellanos [place] [facility] Procedures Percutaneous Endoscopic Gastrostomy REFRIGERATION TECHNICIAN, C.N.P. [address] [place] [phone] Referral ID Status Reason Start Date Expiration Date Visits Requ ested Visits Authorized [id number] Closed 06/18/2019 06/17/2020 1 1 utpatient (Routine) - Closed Specialty Diagnoses / Procedures Referred By Contact Refer red To Contact Endocrinology Diagnoses Malignant Neoplasm Of Supraglottic (HCC) [facility] REFRIGERATION TECHNICIAN, C.N.P. [address] [place] [phone] Referral ID Status Reason Start Date Expiration Date Visits Requ ested Visits Authorized [id number] Closed 06/18/2019 06/17/2020 1 1 Scheduling Instructions RN30 BAKER Encounter Details Date Type Department Care Team Description 06/18/2019 Orders Only Division of [place], Malignant Neopl asm Of Endocrinology in [place], Supraglo ttic (HCC) [place], [place] Omega (Primary Dx) [address] [place] [address] [place], [place] [phone] Social History Tobacco Use Types Packs/Day Years [...] many times do you More than three josém iguel es a week 02/21/2019 talk on the phone with family, friends, or neighbors? How often do you get together with friends Once a week 02/21/2019 or relatives? How often do you attend mosque or Never 2018 church services? Do you belong to any clubs or No 02/21/2019 organizations such as mosque groups, unions, fraternal or athletic groups, or [...] Appointment Radiology Mark Eastman M.D., M.S. [address] [place] [phone] 04/26/2022 Office Visit Otorhinolaryngology Roxanne Lanza, REFRIGERATION TECHNICIAN, C.N.P. [address] [place] [phone] 04/28/2022 Appointment Radiation Oncology Ursula Aguirre M.D. [address] [place] [phone] Scheduled Referrals Name Type Priority Associated Diagnoses Order [facility] Endocrinology nurse Outpatient Routine Malignant Neoplasm Ex pected: visit (clinic) Referral Of Supraglottic 08/02/2019 (HCC) (Approximate), Expires: 06/18/2022 documented as of this encounter Visit Diagnoses Diagnosis Malignant Neoplasm Of Supraglottic (HCC) - Primary documented in this encounter
--- OUTSIDE RECORDS SUMMARY | 2022-03-31 14:49 | XMS_ITS | Encounter Summary ---
:1955 Author Organization [facility] Address [address] [place] [address] Care Team Providers Name Role Phone Unavailable Primary Care Provider Unavailable Encounter Details Date Type Department Care Team Description 05/02/2019 Clinical Communication Department of Radiation Kareem Pérez, Oncology in [place], PMassiel, M.S. [address] [place] [phone] Social History Tobacco Use Types Packs/Day Years [...] or relatives? How often do you attend protestant or Never 2018 faith services? Do you belong to any clubs or No 02/21/2019 organizations such as protestant groups, unions, fraternal or athletic groups, or [...] Encounter - Summer Pérez P.A.-C., M.S. - 05/02/2019 10:22 AM CDT The patient was here for treatment today and her son reported that she is almost out of hydrocodone-acetaminophen and asked for a refill. The patient has been taking the medication for pain relief as well as for help as a cough suppressant at night. She has had good benefit with taking the medication.She is taking the medication appropriately. She was provided with a printed prescription refill today. She is scheduled for her last management visit tomorrow with Dr. Aguirre and her pain and medications will be reviewed in further detail at that time. Summer Pérez P.A.-C. documented in this encounter Plan of Treatment Upcoming Encounters Date Type Specialty Care Team Description 04/22/2022 Clinical Admitting/Central Communication Scheduling 04/26/2022 Appointment Radiology Mark Eastman M.D., M.S. [address] [place] [phone] 04/26/2022 Office Visit Otorhinolaryngology Roxanne Lanza, HAND ICER, C.N.P. [address] [place] [phone] 04/28/2022 Appointment Radiation Oncology Ursula Aguirre M.D. [address] [place] [phone] documented as of this encounter Visit Diagnoses Not on filedocumented in this encounter
--- OUTSIDE RECORDS SUMMARY | 2022-03-31 14:49 | XMS_ITS | Encounter Summary ---
:1955 Author Organization [facility] Address [address] [place] [address] Care Team Providers Name Role Phone Unavailable Primary Care Provider Unavailable Reason for Referral Outpatient (Routine) - Closed Specialty Diagnoses / Procedures Referred By Contact Refer red To Contact Nutrition Diagnoses Malignant Neoplasm Of Supraglottic (HCC) Summer Pérez P.A.-C., IN[facility].S [address] [place] [address] Referral ID Status Reason Start Date Expiration Date Visits Requ ested Visits Authorized [id number] Closed 05/07/2019 05/06/2020 1 1 Scheduling Instructions LILLIE pt, please schedule for this week an d please call daughter in [place] at [phone] to help schedule as she sunny l be providing transportation to this appt, thanks Reason for Visit Outpatient (Routine) - Closed Specialty Diagnoses / Procedures Referred By Contact Refer red To Contact Nutrition Diagnoses Malignant Neoplasm Of Supraglottic (HCC) Summer Pérez P.A.-C., [facility] [address] [place] [address] Referral ID Status Reason Start Date Expiration Date Visits Requ ested Visits Authorized [id number] Closed 05/07/2019 05/06/2020 1 1 Encounter Details Date Type Department Care Team Description 05/24/2019 Hospital Encounter Department of Summer Pérez P.A.-C., M.S. [address] [place] [address] Malignant Neoplasm Radiation Oncology Natasha Brandon, RDN [address] [place] [address] Of Supraglottic in [place], (HCC) [place] [address] [place] [address] Social History Tobacco Use Types [...] do you attend sabianism or Never 2018 restoration services? Do you [...] total) by mouth every 4 (four) hours. ibuprofen (ADVIL,MOTRIN) Take 600 mg by 0 [...] encounter Progress Notes Natasha Brandon, AYLEEN - 05/24/2019 3:00 PM CDT CHIEF COMPLAINT/REASON FOR VISIT ??Malignant Neoplasm Of Supraglottic (HCC) (C32.1)? HISTORY OF PRESENT ILLNESS Mrs. 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 Radiotherapy to the supraglottic tumor initiated on March 26, 2019; anticipated date of completion is May 04, 2019.? Met with patient??and??her son. ??Patient??is hard of hearing and reads lips. For phone contact Merlin(son)??states, his Darlin is the one to call, . ?? 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 Food/Nutrient Related History Water only by mouth at this time. ??Drinking 1-2, 20 ounce bottles/glasses ?? Weight History Current weight 75.0 kg - 6.3 kg (7.7%) loss since 05/03 Usual body weight: 230# (104.5??kg) last year, per patient 03/16/19: 88.5 kg 03/28/19: 87.7 kg 04/04/19: 86.3 kg 04/11/19: 83.5 kg 04/12/19: 82.5 kg--5.8% loss from treatment start weight 04/18/19: 83.6 kg 04/26/19:??82.4 kg 05/03/19: 81.3 kg ?? Height: 167 cm ?? Estimation [...] gastrostomy was placed??04/17/19. ?? Weight is down 6.3 kg (13.9 lbs) from 05/03 and down 8.6 kg (18.9 lbs) since tube feeding initiated. Patient and son report 3-4 cartons of feeding tolerated most days. She reports that she is not able to take in 2 cartons at one time. She reports taking 5 cartons yesterday. She denies nausea and vomiting. She reports dark colored urine. ?? NUTRITION DIAGNOSIS Inadequate oral intake (NI-2.1)??related [...] containers/day Administration Method: Intermittent gravity/syringe Infusion Schedule: ??---- Water Flushes: ??60 mL before and after [...] in 5 each day. ??Discussed increasing fluid related to decreased po fluid intake and dark color of urine. She will provide herself with an additional 240 ml fluidflushes throughout the day via feeding tube. Also discussed that consistently taking in 5 feedings per day will also increase her fluid intake. ? Care Coordination Authorization on file to speak with DME/Infusion Company: yes DME/Infusion Company that will provide needed supplies for home: ??[place]??. They delivered supplies??04/18/19. ?? Indication for Ongoing Enteral Nutrition ??Home Enteral Nutrition, dysphagia, suqpaglottic squamous cell carcinoma. Anticipated duration of tube feedings is 12 months. This is??the sole source of nutrition. ?? MONITORING AND EVALUATION Nutrition parameter to monitor: ??Weight Desired Outcome: ??Prevent further weight loss Patient Goal(s): 1. ??Nutren 1.5, 5 containers a day, schedule of 1-1-1-1-1 or as tolerated with 60 ml flush before and after each feeding. 2. ??Fluid by flush or mouth to meet estimated fluid needs. She will provide an additional 240 ml fluid through flushes each day. ?? Follow-up Plan Follow up to coincide with MD follow up post-treatment. Follow up in 3 weeks. ?? Time spent with patient (minutes):15 documented in this encounter Plan of Treatment Upcoming Encounters Date Type Specialty Care Team Description 04/22/2022 Clinical Admitting/Central Communication Scheduling 04/26/2022 Appointment Radiology Mark Eastman M.D., M.S. [address] [place] [phone] 04/26/2022 Office Visit Otorhinolaryngology Roxanne Lanza APRN, C.N.P. [address] [place] [address] 04/28/2022 Appointment Radiation Oncology Ursula Aguirre M.D. [address] [place] [address] Scheduled Referrals Name Type Priority Associated Diagnoses Order S chedule Nutrition - Outpatient Referral Routine Malignant Neoplasm On ce for 1 Medical nutrition Of Supraglottic Occurre nces therapy consult (HCC) starting 05/2019 (clinic) until 9 documented as of this encounter Visit Diagnoses Diagnosis Malignant Neoplasm Of Supraglottic (HCC) documented in this encounter
--- OUTSIDE RECORDS SUMMARY | 2022-03-31 14:49 | XMS_ITS | Encounter Summary ---
:1955 Author Organization [facility] Address [address] [place] [id number] Care Team Providers Name Role Phone Unavailable Primary Care Provider Unavailable Reason for Referral Outpatient (Routine) - Closed Specialty Diagnoses / Procedures Referred By Contact Refer red To Contact Nutrition Diagnoses Malignant Neoplasm Of Supraglottic (HCC) Summer Pérez P.A.-C., INDR[facility] [address] [place] [phone] Referral ID Status Reason Start Date Expiration Date Visits Requ ested Visits Authorized [id number] Closed 03/29/2019 03/28/2020 1 1 Reason for Visit Outpatient (Routine) - Closed Specialty Diagnoses / Procedures Referred By Contact Refer red To Contact Nutrition Diagnoses Malignant Neoplasm Of Supraglottic (HCC) Summer Pérez P.A.-C., [facility] [address] [place] [phone] Referral ID Status Reason Start Date Expiration Date Visits Requ ested Visits Authorized [id number] Closed 03/29/2019 03/28/2020 1 1 Encounter Details Date Type Department Care Team Description 05/03/2019 Hospital Encounter Department of Summer Pérez P.A.-C., M.S. [address] [place] [phone] Malignant Neoplasm Of Radiation Oncology Ryanne Mcbride, JUANITO [address] [place] [address] Supraglottic (HCC) in [place], [place] [address] [place] [address] Social History Tobacco Use Types [...] Chew 81 mg every 0 tablet evening. [employer] Aspirin diaper,brief,adult,disposab Bag: (36 each) 36 each [...] documented as of this encounter Progress Notes Ryanne Mcbride LD - 05/03/2019 10:45 AM CDT CHIEF COMPLAINT/REASON FOR VISIT ??Malignant Neoplasm Of Supraglottic (HCC) (C32.1)? HISTORY OF PRESENT ILLNESS Mrs. 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 Radiotherapy to the supraglottic tumor initiated on March 26, 2019; anticipated date of completion is May 04, 2019.? Met with patient and her son. ??Patient??is hard of hearing and reads lips. For phone contact Merlin (son)??states, his Darlin is the one to call, . ?? 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 ??She does not drink alcohol. ?? Medical Tests and Procedures/Biochemical Data Swallow evaluation on 03/28/19 showed mild dysphagia.??With side-effects of treatment??increased??difficulty swallowing due to pain and gagging. ?? Nutrition Focused Physical Findings Mouth/throat/esophagus:??dry mouth, dry, sore throat, coughing improved over past couple of days Nausea/vomiting: no nausea, vomiting the past 2 days Bowels: no diarrhea or constipation ?? Tube Information Gastrostomy tube??placed by GI 04/17/19 LEONARDO 20 [place] balloon gastrostomy, ENFit connector ?? Food/Nutrient Related History Water only by mouth at this time. ??Drinking 2 to 3-24 ounce glasses with ice.? Weight History Usual body weight: 230# (104.5??kg) last year, per patient 03/16/19: 88.5 kg 03/28/19: 87.7 kg 04/04/19: 86.3 kg 04/11/19: 83.5 kg 04/12/19: 82.5 kg--5.8% loss from treatment start weight 04/18/19: 83.6 kg 04/26/19: 82.4 kg 05/03/19: 81.3 kg ?? Height: 167 [...] gastrostomy was placed??04/17/19. ?? Weight is down 1.1 kg (2.4 lbs) from last week and down 2.3 kg (5.1 lbs) since tube feeding initiated. Patient and son report 4 cartons of feeding tolerated most days this week without vomiting. No vomiting the past 2 days. Patient consistently drinking 2 to 3-24 ounce mugs of water with ice a day. Patient reports feeling better overall. More prone to coughing episodes with more than 1 carton of feeding at a time. ?? NUTRITION DIAGNOSIS Inadequate oral intake (NI-2.1)??related [...] containers/day Administration Method: Intermittent gravity/syringe Infusion Schedule: ??2-2-1 Water Flushes: ??60 mL before and after [...] Program: as tolerated ?? INTERVENTION Encouraged goal of 5 cartons Nutren 1.5 a day to meet estimated needs. ??Currently doing 2-1-1. ??Discussed reducing feedings to 1 at a time and slowing the rate related to tolerance with meeting goal of 5 cartons a day. Both patient and son in agreement 1 carton a day 5 times a day is a good option and are optimistic of tolerance with that schedule. ? Care Coordination Authorization on file to speak with DME/Infusion Company: yes DME/Infusion Company that will provide needed supplies for home: ??[place]??. They delivered supplies??04/18/19. ?? Indication for Ongoing Enteral Nutrition ??Home Enteral Nutrition, dysphagia, suqpaglottic squamous cell carcinoma. Anticipated duration of tube feedings is 12 months. This is??the sole source of nutrition. ?? MONITORING AND EVALUATION Nutrition parameter to monitor: ??Weight Desired Outcome: ??Prevent further weight loss Patient Goal(s): 1. Nutren 1.5, 5 containers a day, schedule of 1-1-1-1-1 or as tolerated with 60 ml flush before andafter each feeding. 2. Fluid by flush or mouth to meet estimated fluid needs. ?? Follow-up Plan Follow up to coincide with MD follow up post-treatment. ?? Time spent with patient (minutes):15 documented in this encounter Plan of Treatment Upcoming Encounters Date Type Specialty Care Team Description 04/22/2022 Clinical Admitting/Central Communication Scheduling 04/26/2022 Appointment Radiology Mark Eastman M.D., M.S. [address] [place] [phone] 04/26/2022 Office Visit Otorhinolaryngology Roxanne Lanza APRN, C.N.P. [address] [place] [address] 04/28/2022 Appointment Radiation Oncology Ursula Aguirre M.D. [address] [place] [phone] Scheduled Referrals Name Type Priority Associated Diagnoses Order S chedule Nutrition - Outpatient Referral Routine Malignant Neoplasm On ce for 1 Medical nutrition Of Supraglottic Occurre nces therapy consult (HCC) starting (clinic) until 9 documented as of this encounter Visit Diagnoses Diagnosis Malignant Neoplasm Of Supraglottic (HCC) documented in this encounter
--- OUTSIDE RECORDS SUMMARY | 2022-03-31 14:49 | XMS_ITS | Encounter Summary ---
:1955 Author Organization [facility] Address [address] [place] [address] Care Team Providers Name Role Phone Unavailable Primary Care Provider Unavailable Reason for Visit Radiation Therapy (Routine) - Closed Specialty Diagnoses / Procedures Referred By Contact Refer red To Contact Diagnoses Malignant Neoplasm Of Supraglottic (HCC) Ursula Aguirre M.D. [facility] Procedures Prior Auth Rad Tx [place] IMRT COMPLEX [address] [place] [phone] Referral ID Status Reason Start Date Expiration Date Visits Requ ested Visits Authorized [id number] Closed 03/15/2019 03/14/2020 35 35 Encounter Details Date Type Department Care Team Description 05/04/2019 Hospital Encounter Department of Ursula Aguirre Neoplasm Of Radiation Oncology Kimberley Bacon Supraglottic (HCC) in [address] (Primary Dx) [place], [place] [address] [facility] [address] [place], [place] [phone] (Work) [phone] Social History Tobacco Use Types Packs/Day Years [...] do you attend druze or Never 2018 alevism services? Do you [...] diaper,brief,adult,disposab Bag: (36 each) 36 each 1 08/2 01/2019 le (DEPEND UNDERWEAR FOR WOMEN XL) [...] Progress Notes Summer Pérez P.A.-C., M.S. - 05/04/2019 11:15 AM CDT DIAGNOSIS: 1. Malignant Neoplasm Of Supraglottic (HCC) Attending Physician: Ursula Aguirre M.D. Treatment Intent: Curative Concomitant Therapy: None Treatment Dates: March 26, 2019 - May 04, 2019 Single Plan Course Summary 05/04/2019 Plan ID [id number] H&N First treatment 03/26/2019 11:48 CDT Last treatment 05/04/2019 11:27 CDT Fractions treated to date 35 Planned total fractions 35 Dosage given to date cGy 7000 Planned dose in cGy 7000 CLINICAL SUMMARY Ms. Obdulia Narayan completed radiation treatment as planned with interruptions of one day due to the treatment machine being down. The course of treatment was tolerated well and with anticipated side effects. The patient experienced toxicities of grade 2 radiation dermatitis and grade 1 pain, nausea, cough, and weight loss during radiation treatment. TREATMENT RESPONSE: Response to treatment will be determined by post-treatment imaging and/or physical examination. RECOMMENDED FOLLOW UP: Radiation Oncologist. She is scheduled for a follow-up appointment with Dr. Aguirre on June 14, 2019. Signed by: Summer Pérez P.A.-C., M.S., 05/07/2019 10:51 AM [facility] [address] [place] [address] documented in this encounter Miscellaneous Notes Addendum Note - Laine Gee, RTT - 05/04/2019 11:15 AM CDT Encounter addended by: Laine Gee, RTT on: 11/21/2019 12:35 PM Actions taken: Episode un-resolved, Episode resolved documented in this encounter Plan of Treatment Upcoming Encounters Date Type Specialty Care Team Description 04/22/2022 Clinical Admitting/Central Communication Scheduling 04/26/2022 Appointment Radiology Mark Eastman M.D., M.S. [address] [place] [phone] 04/26/2022 Office Visit Otorhinolaryngology Roxanne Lanza, FIELD SALES ENGINEER, C.N.P. [address] [place] [phone] 04/28/2022 Appointment Radiation Oncology Ursula Aguirre M.D. [address] [place] [phone] documented as of this encounter Visit Diagnoses Diagnosis Malignant Neoplasm Of Supraglottic (HCC) - Primary documented in this encounter
--- OUTSIDE RECORDS SUMMARY | 2022-03-31 14:49 | XMS_ITS | Encounter Summary ---
:1955 Author Organization [facility] Address [address] [place] [address] Care Team Providers Name Role Phone Unavailable Primary Care Provider Unavailable Reason for Visit Radiation Therapy (Routine) - Closed Specialty Diagnoses / Procedures Referred By Contact Refer red To Contact Diagnoses Malignant Neoplasm Of Supraglottic (HCC) Ursula Aguirre M.D. [facility] Procedures Prior Auth Rad Tx [place] IMRT COMPLEX [address] [place] [phone] Referral ID Status Reason Start Date Expiration Date Visits Requ ested Visits Authorized [id number] Closed 03/15/2019 03/14/2020 35 35 Encounter Details Date Type Department Care Team Description 05/03/2019 Hospital Encounter Department of Radiation Bud Aguirre I., [place] [address] [facility] [address] [place] [address] [phone] Social History Tobacco Use Types Packs/Day Years [...] you attend latter day or Never 2018 congregation services? Do you [...] Radiology Mark Eastman M.D., M.S. [address] [place] [phone] 04/26/2022 Office Visit Otorhinolaryngology Roxanne Lanza APRN, C.N.P. [address] [place] [phone] 04/28/2022 Appointment Radiation Oncology Ursula Aguirre M.D. [address] [place] [phone] documented as of this encounter Visit Diagnoses Not on filedocumented in this encounter
--- OUTSIDE RECORDS SUMMARY | 2022-03-31 14:49 | XMS_ITS | Encounter Summary ---
:1955 Author Organization [facility] Address [address] [place] [address] Care Team Providers Name Role Phone Unavailable Primary Care Provider Unavailable Reason for Visit Radiation Therapy (Routine) - Closed Specialty Diagnoses / Procedures Referred By Contact Refer red To Contact Diagnoses Malignant Neoplasm Of Supraglottic (HCC) Ursula Aguirre M.D. [facility] Procedures Prior Auth Rad Tx [place] IMRT COMPLEX [address] [place] [phone] Referral ID Status Reason Start Date Expiration Date Visits Requ ested Visits Authorized [id number] Closed 03/15/2019 03/14/2020 35 35 Encounter Details Date Type Department Care Team Description 05/02/2019 Hospital Encounter Department of Radiation Bud Aguirre I., [place]cology [place] [address] [facility] [address] [place] [address] [phone] Social History Tobacco Use Types Packs/Day Years [...] or relatives? How often do you attend religion or Never 2018 jehovah's witness services? Do you belong to any clubs or No 02/21/2019 organizations such as religion groups, unions, fraternal or athletic groups, or [...] Appointment Radiology Mark Eastman M.D., M.S. [address] [place] [phone] 04/26/2022 Office Visit Otorhinolaryngology Roxanne Lanza APRN, C.N.P. [address] [place] [phone] 04/28/2022 Appointment Radiation Oncology Ursula Aguirre M.D. [address] [place] [phone] documented as of this encounter Visit Diagnoses Not on filedocumented in this encounter
--- OUTSIDE RECORDS SUMMARY | 2022-03-31 14:49 | XMS_ITS | Encounter Summary ---
:1955 Author Organization [facility] Address [address] [place] [id number] Care Team Providers Name Role Phone Unavailable Primary Care Provider Unavailable Reason for Referral Outpatient (Routine) - Closed Specialty Diagnoses / Procedures Referred By Contact Refer red To Contact Radiation Oncology Summer Pérez P.A.-C., INDRA [facility] [address] [place] [phone] Referral ID Status Reason Start Date Expiration Date Visits Requ ested Visits Authorized [id number] Closed 05/22/2019 05/21/2020 1 1 Scheduling Instructions Schedule diet also. Reason for Visit Outpatient (Routine) - Closed Specialty Diagnoses / Procedures Referred By Contact Refer red To Contact Radiation Oncology Summer Pérez P.A.-C., INDRA [facility] [address] [place] [phone] Referral ID Status Reason Start Date Expiration Date Visits Requ ested Visits Authorized [id number] Closed 05/22/2019 05/21/2020 1 1 Encounter Details Date Type Department Care Team Description 05/24/2019 Hospital Encounter Department of Ursula Aguirre Neoplasm Of Radiation Oncology Kimberley Bacon Supraglottic (HCC) in [address] (Primary Dx) [place], [place] [address] [facility] [address] [place], [place] [phone] (Work) [phone] Social History Tobacco Use Types Packs/Day Years [...] do you attend anglican or Never 2018 orthodoxy services? Do you belong to any clubs or No 02/21/2019 organizations such as anglican groups, unions, fraternal or athletic groups, or [...] Pressure - - Pulse - - Temperature 35 ??C (95 ??F) 05/24/2019 3:33 PM CDT Respiratory Rate - - Oxygen Saturation - - Inhaled Oxygen Concentration - - Weight 75 kg (165 lb 5.5 oz) 05/24/2019 3:33 PM CDT Height - - Body Mass Index 26.96 04/18/2019 8:26 AM CDT documented in this [...] hours. HYDROcodone-acetaminophen Take 5 mL by mouth 480 mL 0 06/14/2019 (HYCET) 7.5-325 mg/15 mL as directed solutionIndications: Indication: Prolonged Acute Prolonged Acute Pain/Traumatic Injury Pain/Traumatic Injury. Every 4-6 hours for pain ibuprofen (ADVIL,MOTRIN) Take 600 mg by 0 08/02/2019 200 mg capsule mouth every 6 (six) hours as needed for pain. metFORMIN (GLUCOPHAGE) 500 2 (two) times a 11 11/1311/02/2019 mg tablet day. nicotine (NICODERM CQ) 14 Place 1 patch on 1 03/1508/02/2019 mg/24 hr patch the skin. nicotine polacrilex 2 mg. 0 03/27/201908/02 (NICORETTE) 2 mg gum raNITIdine (ZANTAC) 150 mg Take 150 mg by 11 02/1808/02/2019 tablet mouth 2 (two) times a day. sulfamethoxazole-trimethopr Take 1 tablet by 10 tablet 0 08/02/2019 im (BACTRIM DS) 800-160 mg mouth every 12 per tablet (twelve) hours. ibuprofen (ADVIL,MOTRIN) Three Times A Day 0 06/1510/22/2021 600 mg tablet as needed metFORMIN (GLUCOPHAGE) 500 Daily 0 8 10/16/2021 mg tablet potassium chloride Daily 0 04/21/20182021 (KLOR-CON M/KDUR) 20 mEq ER tablet documented as of this encounter Progress Notes Summer Pérez P.A.-C., M.S. - 05/24/2019 4:00 PM CDT SUBJECTIVE DIAGNOSIS 1. Malignant Neoplasm Of Supraglottic (HCC) SUPERVISED BY: Ursula Aguirre M.D. HISTORY OF PRESENT ILLNESS Mrs. 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 Her oncologic history is as follows: 1. November 2018: ??The patient noted throat pain with swallowing along with intermittent ear pain,??managed with Tylenol. 2. February 2019: ??The patient experienced progressively worsening throat pain,??odynophagia, 10 pound??unintentional weight loss, hoarseness over the past few weeks,??and difficulty sleeping due to increased secretion. 3. February 08, 2019: Appointment with Dr. Darryl Grayson???[facility] at [facility]. Physical examination with flexible laryngoscopy revealed a large fungating mass overlying the posterior left arytenoidthat appeared fairly extensive, extending over to the right arytenoid into the piriform sinus. Vocal cords move normally. Patient did have some shotty adenopathy on the left side. Ordered CT scan and then arrange referral to [facility]. 4. February 12, 2019: ??CT scan of the neck with contrast demonstrated at the level of the epiglottis, there was asymmetric soft tissue prominence within the left posterior lateral aspect of the hypopharynxwith effacement of the left piriform sinus. The soft tissue prominence extended inferiorly to just above the arytenoid cartilage. There was no evidence of cartilaginous erosive or destructive changes. Overall, there was focal narrowing of the airway immediately superior to the level of the cords, measuring approximately 5 mm. The vocal cords were otherwise symmetric. No adenopathy. No prevertebral soft tissue swelling. 5. February 21, 2019: ??ENT consultation with Dr. Hung Mabry and Dr. Frank Arrieta??at [facility]. Physical examination revealed an exophytic mass of the left arytenoid which slightly crossed midline.It involved the medial aspect of the piriform sinus. The vocal cords move symmetrically bilaterally.Biopsy of laryngeal mass was performed. Pathology demonstrated invasive squamous cell carcinoma, moderately differentiated. 6. February 21, 2019:?CT scan of the chest demonstrated multiple bilateral solid and ground-glass sub6 mm pulmonary nodules. This included a 3 mm solid left upper [...] in the right upper lobe apical/posterior segment. Penetrating atherosclerotic ulcer along the left lateral wall of the aortic arch measuring 5 mm. No mediastinal, hilar, or axial enlarged lymph nodes. Multiple bilateral hypoattenuating nodules in the adrenal glands, indeterminate but likely represent adenomas. More prominent, slightly nodular parenchyma in the right breast relative to the left. 7. March 13, 2019: Radiation oncology consultation with Dr. Francisca Tapia and Dr. Domingo Love. Nasopharyngoscopy demonstrated an exophytic lesion along the left posterior aryepiglottic fold with extension to the right posterior area epiglottic fold,??consistent with the biopsy positive squamous cell carcinoma. They discussed the clinical staging of cT2 N0 and treatment options of surgical resection versus definitive radiation treatment. If the patient decides to have definitive radiation treatment, she willbe referred to Radiation Oncology in [place]. 8. March 13, 2019: Follow-up appointment with Dr. Arrieta and Dr. Mabry who discussed treatment options including total laryngectomy versus radiation therapy. They were not able to offer partial laryngectomy given her lung disease and possible aspiration. 9. March 15, 2019: Phone call with Dr. Tapia with the patient's [id number]-eeo reported that the patient had decided to undergo radiation treatment in [place]. She will have a follow-up abdominal MRI at [place]. The patient will follow-up with her primary care provider regarding the asymmetry in the right breast. 10. March 26, 2019 through May 04, 2019: Definitive radiotherapy to the supraglottic tumor toa dose of 7000 cGy in 35 fractions. INTERVAL HISTORY The patient was seen and examined today with Dr. Aguirre. The patient reports doing well overall. She rates her fatigue as 3/10 in severity. She reports persistent pain in her throat, rated 9/10 in severity. She points to a specific spot in her throat that hurts the most. She reports that her throat finley with drinking water. She also reports that her throatburns at night. She does feel that her throat pain is starting to improve overall. She reports that she has been taking hydrocodone-acetaminophen 10 mL 1-2 times per day. She has not been keeping exacttrack of when she takes the pain medication and it sounds like she has taken small amounts throughout the day when she experiences pain. She reports that with taking hydrocodone, her pain is a 0/10. She tried taking Tylenol liquid, but reports that it burned also. She has noticed increased dry mouth and throat. She tried using Biotene, but reports that it burned, so discontinued use. She reports having a cough at night. She tried Robitussin, but it made her mouth more dry. She is not using a humidifier in [place] like she used previously in [place]. She denies fever or chills. She met with ourdietitian today and reports getting in 3-4 cartons of feeding per day. She has continued to lose weight. REVIEW OF SYSTEMS Review of systems was negative except as documented above. PATIENT REPORTED SYMPTOM SCREEN FATIGUE (Scale: 0 = no fatigue; 10 = worst fatigue you can imagine): 3 ?? PAIN (Scale: 0 = no pain; 10 = worst pain you can imagine): 9 ?? OVERALL QUALITY OF LIFE (Scale: 0 = as bad as can be; 10 = as good as can be): 10 OBJECTIVE Temp (!) 35 ??C (Temporal) Wt 75 kg BMI 26.96 kg/m? PHYSICAL EXAM General: Patient is alert and oriented in no apparent distress. 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 2.?Definitive radiotherapy to the supraglottic tumor initiated on March 26, 2019; completed on May 04, 2019 3. ??Left facial boil, s/p incision and drainage on March 28, 2019; Bactrim initiated for 5 days onMarch 28, 2019 4. PEG tube placement on April 17, 2019 The patient is continuing to recover overall following radiation treatment. She has persistent pain and burning of her throat that is starting to improve. Dr. Aguirre refilled the hydrocodone-acetaminophen prescription for her today. The patient was provided with printed pain diary sheets and asked to complete them with her pain level, dosages of pain medication, and tube feedings. She was asked to bring the sheets to her next appointment for our review. The patient was recommended by our dietitian to increase her tube feedings to five cartons per day and we discussed the importance of this as well.She was recommended to use a humidifier to help with the dry mouth and throat, especially at night. The patient is scheduled for a follow-up appointment with Dr. Aguirre and with our dietitian, Natasha, on June 14, 2019. The patient was told to contact us sooner with questions or concerns. She verbally expressed her understanding of the plan. ?? EDUCATION Ready to learn, no apparent learning barriers were identified; learning preferences include listening. Explained diagnosis and treatment plan; patient expressed understanding of the content. ?? Signed by: Summer Pérez P.A.-C., M.S. 05/24/2019 4:35 PM [facility] [address] [place] [address] Associated attestation - Ursula Aguirre M.D. - 05/24/2019 10:14 PM CDT I saw and evaluated the patient and participated in the rao portions of the service. I reviewed the documentation of Ms. Summer Pérez PA-C, and agree with the findings and plan. Her skin has healed nicely, but she still has a hoarse voice. She states that it hurts her quite a bit to swallow, but she can use her PEG tube. She met with our pricing specialist today. She also is complaining of the dry mouth. We discussed moving the humidifier from her son's house to her daughter's home where she is now. She states that no one else is using her hydrocodone. We discussed that she needs to keep track of how many times a day she is taking her pain medications so that we can refill her prescriptions properly. We will see them back again at the end of the month. Their questions were answered, and they were comfortable with this plan. I have spent 15 minutes with this patient today in which >50% was spent counseling and coordination of care. Ursula Aguirre M.D., 05/24/19 documented in this encounter Plan of Treatment Upcoming Encounters Date Type Specialty Care Team Description 04/22/2022 Clinical Admitting/Central Communication Scheduling 04/26/2022 Appointment Radiology Mark Eastman M.D., M.S. [address] [place] [phone] 04/26/2022 Office Visit Otorhinolaryngology Roxanne Lanza, DAIR[employer]ACHINE [employer]PER[employer], C.N.P. [address] [place] [phone] 04/28/2022 Appointment Radiation Oncology Ursula Aguirre M.D. [address] [place] [phone] Scheduled Referrals Name Type Priority Associated Order Schedule Diagnoses Radiation Oncology Outpatient Referral Routine On ce for 1 office visit Occurrences sta rting (clinic) 05/24/2019 unti l 05/24/2019 documented as of this encounter Visit Diagnoses Diagnosis Malignant Neoplasm Of Supraglottic (HCC) - Primary documented in this encounter
--- OUTSIDE RECORDS SUMMARY | 2022-03-31 14:49 | XMS_ITS | Encounter Summary ---
:1955 Author Organization [facility] Address [address] [place] [address] Care Team Providers Name Role Phone Unavailable Primary Care Provider Unavailable Encounter Details Date Type Department Care Team Description 05/15/2019 Clinical Communication Department of Ursula Aguirre Radiation Oncology Kimberley Kaur [place] [address] [facility] [address] [place] [phone] Social History Tobacco Use Types Packs/Day Years [...] do you attend episcopalian or Never 2018 baptism services? Do you belong to any clubs [...] Encounter - Summer Pérez P.A.-C., M.S. - 05/15/2019 1:53 PM CDT DIAGNOSIS 1. Malignant Neoplasm Of Supraglottic (HCC) REASON FOR ENCOUNTER Telephone call. SUPERVISED BY: Ursula Aguirre M.D. INTERVAL HISTORY Obdulia Narayan is a 63-year-old female with supraglottic cancer. The patient's daughter, Darlin, called the clinic and I was able to talk to her directly. She was asking for a refill of liquid hydrocodone for the patient. She reports that the patient is completely out of the medication. The patient is not able to communicate on the telephone, so we communicated through Darlin. The patient rates her pain as 7/10 in severity. She does report that the pain is improving overall. She has been able to decrease her use of pain medication and is now taking hydrocodone 5 mL twice daily. She is not able to say exactly how many days she has been taking this current dose. She feels that her pain is managed overall with this current pain medication regimen. The medication also helps with her cough. ASSESSMENT / PLAN Obdulia Narayan is continuing to recover overall following radiation treatment. She is now 11 daysout from treatment. She was educated that her pain should continue to improve as she gets further out from radiation treatment. A printed prescription refill of hydrocodone was left at our vest front presser today for them to warehouse picker. We discussed for the patient to take 5 mL twice daily at this time. As the patient's pain improves, they were recommended to continue decreasing her use of the pain medication.She is scheduled for a follow-up appointment with Dr. Aguirre on June 14, 2019. The patient's casewas reviewed with both Dr. Schultz and Dr. Aguirre who were in agreement with continuing to refill her pain medication at this time as she is still within the time frame for anticipated side effects following radiation treatment. I also called the patient's son, Rolando, and provided him with an update as he had called in earlier today as well. They were told to contact us again with questions or concerns. Darlin and Rolando verbally expressed their understanding of the plan. EDUCATION Ready to learn, no apparent learning barriers were identified; learning preferences include listening. Explained diagnosis and treatment plan; patient expressed understanding of the content. Signed by: Summer Pérez P.A.-C., M.S. 05/15/2019 1:53 PM ADDENDUM: We received a fax from the pharmacy today saying that they were only able to fill 120 mL of the prescription, out of the 240 mL that was prescribed due to quantity on hand. The remainder of the prescription was voided by the pharmacy. Telephone Encounter - Ayla Orellana C.Ph.T. - 05/15/2019 9:38 AM CDT Caller: Rolando (son) Is there a valid authorization to speak with caller? Yes Primary Radiation Oncologist: Dr. Aguirre Reason for call: Rolando is calling to get more cough syrup for his mom. Please give him a call to let him know if the prescription gets sent to the pharmacy or if he needs to stop in to pick it up. Phone number: [phone] [place] [phone] Is it okay to leave a voicemail on answering machine with test results? Yes Pharmacy (if medication related): [facility] [address] [place] [id number] Ayla Orellana C.Ph.T. documented in this encounter Plan of Treatment Upcoming Encounters Date Type Specialty Care Team Description 04/22/2022 Clinical Admitting/Central Communication Scheduling 04/26/2022 Appointment Radiology Mark Eastman M.D., M.S. [address] [place] [phone] 04/26/2022 Office Visit Otorhinolaryngology Roxanne Lanza, [employer], C.N.P. [address] [place] [phone] 04/28/2022 Appointment Radiation Oncology Ursula Aguirre M.D. [address] [place] [phone] documented as of this encounter Visit Diagnoses Diagnosis Malignant Neoplasm Of Supraglottic (HCC) - Primary documented in this encounter
--- OUTSIDE RECORDS SUMMARY | 2022-03-31 14:49 | XMS_ITS | Encounter Summary ---
:[address] [facility] Address [address] [place] [address] Care Team Providers Name Role Phone Unavailable Primary Care Provider Unavailable Reason for Referral Outpatient (Routine) - Closed Specialty Diagnoses / Procedures Referred By Contact Refer red To Contact Nutrition Diagnoses Malignant Neoplasm Of Supraglottic (HCC) Sumemr Pérez P.A.-C., INDRA [facility] 200 [place] [address] Referral ID Status Reason Start Date Expiration Date Visits Requ ested Visits Authorized [id number] Closed 06/14/2019 06/13/2020 1 1 Outpatient (Routine) - Closed Specialty Diagnoses / Procedures Referred By Contact Refer red To Contact Radiation Oncology Summer Pérez P.A.-C., INDRA [facility] [address] [place] [address] Referral ID Status Reason Start Date Expiration Date Visits Requ ested Visits Authorized [id number] Closed 06/14/2019 06/13/2020 1 1 Scheduling Instructions Schedule after PET, swallow study, and Chrissy Mabry appointment in [place]; coordinate with diet if possible Outpatient (Routine) - Closed Specialty Diagnoses / Procedures Referred By Contact Refer red To Contact Otorhinolaryngology Diagnoses Malignant Neoplasm Of Supraglottic (HCC) Summer Pérez Kasperbauer, Jan L, P.A.-C., MShitalS. MShitalDShital [address] [place] [address] 200 [place] [phone] Referral ID Status Reason Start Date Expiration Date Visits Requ ested Visits Authorized [id number] Closed 06/14/2019 06/13/2020 1 1 Scheduling Instructions Coordinate same day as PET and swallow s zuleyka, patient prefers Tuesday Speech Pathology (Routine) - Closed Specialty Diagnoses / Procedures Referred By Contact Refer red To Contact Diagnoses Malignant Neoplasm Of Supraglottic (HCC) Summer Pérez P.A.-C. [place] [facility] Procedures NEWS PRODUCTION ASSISTANT Dysphagia evaluate and treat M.S. [address] [place] [address] Referral ID Status Reason Start Date Expiration Date Visits Requ ested Visits Authorized [id number] Closed 06/14/2019 06/13/2020 1 1 Outpatient (Routine) - Closed Specialty Diagnoses / Procedures Referred By Contact Refer red To Contact Diagnoses Malignant Neoplasm Of Supraglottic (HCC) Summer Pérez P.A.-C. [place] [facility] Procedures PET CT Skull to Thigh FDG [place] PET/CT TRUNK M.S. [address] [place] [phone] Referral ID Status Reason Start Date Expiration Date Visits Requ ested Visits Authorized [id number] Closed 06/14/2019 06/13/2020 1 1 Outpatient (Routine) - Closed Specialty Diagnoses / Procedures Referred By Contact Refer red To Contact Radiation Oncology Summer Pérez P.A.-C., INDRA [facility] [address] [place] [phone] Referral ID Status Reason Start Date Expiration Date Visits Requ ested Visits Authorized [id number] Closed 05/03/2019 05/02/2020 1 1 Scheduling Instructions Coordinate with diet appt. Reason for Visit Outpatient (Routine) - Closed Specialty Diagnoses / Procedures Referred By Contact Refer red To Contact Radiation Oncology Summer Pérez P.A.-C., INDRA [facility] [address] [place] [phone] Referral ID Status Reason Start Date Expiration Date Visits Requ ested Visits Authorized [id number] Closed 05/03/2019 05/02/2020 1 1 Encounter Details Date Type Department Care Team Description 06/14/2019 Hospital Encounter Department of Ursula Aguirre Neoplasm Of Radiation Oncology Kimberley Bacon Supraglottic (HCC) in [place], [address] [place] [address] (Primary Dx) [place] [address] [place] [phone] [place], [place] [phone] (Work) [phone] Social History Tobacco Use Types Packs/Day Years [...] do you attend taoism or Never 2018 jainism services? Do you [...] to pay for the very basics like [employer] hat hard 02/21/2019 food, housing, medical care, [...] Sign Reading Time Taken Comments Blood Pressure 146/72 06/14/2019 3:13 PM CDT Pulse 82 06/14/2019 3:13 PM CDT Temperature 36.1 ??C (97 ??F) 06/14/2019 3:13 PM CDT Respiratory Rate - - Oxygen Saturation - - Inhaled Oxygen Concentration - - Weight 73.7 kg (162 lb 7.7 oz) 06/14/2019 3:13 PM CDT Height - - Body Mass Index 26.49 04/18/2019 8:26 AM CDT documented in this [...] Progress Notes Summer Pérez P.A.-C., M.S. - 06/14/2019 3:00 PM CDT SUBJECTIVE DIAGNOSIS 1. Malignant Neoplasm Of Supraglottic (HCC) SUPERVISED BY: Ursula Aguirre M.D. HISTORY OF PRESENT ILLNESS Ms. 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 ?? Her oncologic history is as follows: 1. November 2018: ??The patient noted throat pain with swallowing along with intermittent ear pain,??managed with Tylenol. 2. February 2019: ??The patient experienced progressively worsening throat pain,??odynophagia, 10 pound??unintentional weight loss, hoarseness over the past few weeks,??and difficulty sleeping due to increased secretion. 3. February 08, 2019: ??Appointment with Dr. Darryl Grayson???[facility]. ??Physical examination with flexible laryngoscopy revealed a large fungating mass overlying the posterior left arytenoid that appeared fairly extensive, extending over to the right arytenoid into the piriform sinus. ?? Vocal cords move normally. ??Patient did have some shotty adenopathy on the left side. ??Ordered CT scan and then arrange referral to [facility]. 4. February 12, 2019: ??CT scan of [...] Dr. Hung Mabry and Dr. Frank Arrieta??at [facility]. ??Physical examination revealed an exophytic mass of [...] will be referred to Radiation Oncology in [place]. 8. March 13, 2019: ??Follow-up appointment with Dr. Arrieta and Dr. Mabry who discussed treatment options including total laryngectomy versus radiation therapy. ??They were not able to offer partial laryngectomy given her lung disease and possible aspiration. ?? 9. March 15, 2019: ??Phone call with Dr. Tapia with the patient's [id number] reported that the patient had decided to undergo radiation treatment in [place]. ??She will have a follow-up abdominal MRI at [facility]. ??The patient will follow-up with her primary care provider regarding the asymmetry in the right breast. ?? 10. March 26, 2019 through May 04, 2019: Definitive radiotherapy to the supraglottic tumor toa dose of 7000 cGy in 35 fractions. INTERVAL HISTORY The patient was seen and examined today with Dr. Aguirre. The patient reports doing well overall. She denies fatigue. She reports that she has been walking. She reports that she is feeling better overall. She does still have throat pain only when she swallows. She rates her pain as 3/10 overall in severity. She is taking hydrocodone up to 5 mL one to two times daily. She reports that she has had difficulty swallowing, stating that when she tried to drink water it wouldn't go down her throat and instead came out her nose. She has mouth dryness that is improved with swishing and spitting water and using a humidifier. She reports 4-5 boxes of feedings per day plus water via the tube. Her weight is relatively stable. She denies shortness of breath. She reports improvement in her cough, but it does still get worse at night sometimes. She denies fever. She denies any other new symptoms or concerns. REVIEW OF SYSTEMS Review of systems was negative except as documented above. PATIENT REPORTED SYMPTOM SCREEN FATIGUE (Scale: 0 = no fatigue; 10 = worst fatigue you can imagine): 0 ?? PAIN (Scale: 0 = no pain; 10 = worst pain you can imagine): 3 ?? OVERALL QUALITY OF LIFE (Scale: 0 = as bad as can be; 10 = as good as can be): 10 OBJECTIVE BP 146/72 (BP Location: Right arm, Patient Position: Sitting, Cuff Size: Regular) Pulse 82 Temp 36.1 ??C (Temporal) Wt 73.7 kg BMI 26.49 kg/m? PHYSICAL EXAM General: Patient is alert [...] 4. ??PEG tube placement on April 17, 2019 The patient is doing well overall, now 6 weeks out from treatment completion. She has had improvement in her pain and is managing well overall with taking hydrocodone up to 5 mL once or twice daily. Her cough is also improved. She will meet with our dietitian, Natasha, today to further discuss her nutritional intake. Dr. Aguirre performed the physical examination today, please see her attestation fordetails. We will order for the patient to have a PET/CT scan, swallow study, and follow-up appointment with Dr. Mabry in [place] in 6 weeks. We will see the patient in follow-up after these appointments as well. The patient was told to contact us sooner with questions or concerns. She verballyexpressed her understanding of the plan. ?? EDUCATION Ready to learn, no apparent learning barriers were identified; learning preferences include listening. Explained diagnosis and treatment plan; patient expressed understanding of the content. ?? Signed by: Summer Pérez P.A.-C., M.S. 06/14/2019 3:[address] [facility] [address] [place] [address] Associated attestation - Ursula Aguirre M.D. - 06/14/2019 4:36 PM CDT I saw and evaluated the patient and participated in the rao portions of the service. I reviewed the documentation of Ms. Summer Pérez PA-C, MS and agree with the findings and plan. The patient appears well on exam. Her voice quality if much better. Her skin has healed. Her TMs look normal. Oral cavity/oropharynx is normal to inspection. She has no neck adenopathy. After topical decongestion and anesthesia with lidocaine and afrin, the flexible laryngoscope was inserted on the right side. The nasal cavity, nasopharynx, oropharynx, hypopharynx and larynx were normal. The tumor is no longer visible. Shedoes have ridge of white material posteriorly that could be resolving tumor vs marina. She still has mucositis along the larynx (epiglottis/AE folds). She has some foamy secretions as well. The vocal cords looked mobile to me. She signed a consent form for me to video and load this into [employer]. I think she is doing well. She is recovering appropriately. She may have marina, so I have written for Diflucan (14 days). I instructed her on holding the hydrocodone and using tylenol if she gets excessively tired on the Diflucan. I did give her a refill for 240ml on the hydrocodone as her pain is improving and should continue to improve. We discussed re-introducing food when her pain improves. If she is choking or can't swallow her foodshe should wait. She will see our client account representative after our appointment. We will see her back in 6 weeks for return visits with PET/CT, swallow study, ENT follow-up and follow-up with me. They would like to do these on Fridays, if possible. 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 Ursula Aguirre M.D., 06/14/19 documented in this encounter Plan of Treatment Upcoming Encounters Date Type Specialty Care Team Description 04/22/2022 Clinical Admitting/Central Communication Scheduling 04/26/2022 Appointment Radiology Mark Eastman M.D., M.S. [address] [place] [phone] 04/26/2022 Office Visit Otorhinolaryngology Roxanne Lanza APRN, C.N.P. [address] [place] [phone] 04/28/2022 Appointment Radiation Oncology Ursula Aguirre M.D. [address] [place] [address] Scheduled Referrals Name Type Priority Associated Diagnoses Order S chedule Radiation Oncology Outpatient Referral Routine On ce for 1 office visit Occurrences (clinic) starting 2018 until 9 Return to provider Outpatient Referral Routine Malignant Neopl asm Expected: in another Of Supraglottic 06/14/2019 specialty ([facility]) (Approximate), Expires: 2021 Radiation Oncology Outpatient Referral Routine Ex pected: office visit 08/02/2019 (clinic) (Approximate), Expires: 2019 Nutrition - Outpatient Referral Routine Malignant Neoplasm Ex pected: Medical nutrition Of Supraglottic 019 therapy consult ([facility]) (Approximate ), (clinic) Expires: 2021 documented as of this encounter Results PET CT Skull to Thigh FDG (08/24/2019 10:53 AM BACK TUFTER) Anatomical Region Laterality Modality Body, Nuclear Medicine PET RST LOS, N/A Posi nasreen Emission Tomography (PET), PET ARZ LOS, Nuclear Medicine PET FLA Po sitron Emission Tomography (PET) LOS, Nuclear Medicine Specimen (Source) Anatomical Collection Method Collection Time Re ceived Time Location / / Volume Laterality 08/24/2019 12:36 PM BACK TUFTER Impressions 08/24/2019 12:59 PM BACK TUFTER No evidence for recurrent or metastatic supraglottic squamous cell carcinoma. Narrative 08/24/2019 12:59 PM BACK TUFTER EXAM: ??PET CT SKULL TO THIGH FDG Finger stick glucose level at the time o f the PET scan injection was 92 mg/dL. Patient followed standard dietary/fastin g requirements for this exam. RADIOPHARMACEUTICAL/MEDS: Route: intravenous fludeoxyglucose F 18 injection FCI (FDG F-18),15.01 millicurie TECHNIQUE: ??F-18 FDG PET/CT [...] RADIOPHARMACEUTICAL/MEDS: Route: intravenous fludeoxyglucose F 18 injection FCI (FDG F-18),15.01 millicurie TECHNIQUE: F-18 FDG PET/CT [...]
--- OUTSIDE RECORDS SUMMARY | 2022-03-31 14:49 | XMS_ITS | Encounter Summary ---
:1955 Author Organization [facility] Address [address] [place] [address] Care Team Providers Name Role Phone Unavailable Primary Care Provider Unavailable Reason for Referral Outpatient (Routine) - Closed Specialty Diagnoses / Procedures Referred By Contact Refer red To Contact Radiation Oncology Summer Pérez P.A.-C., [facility] [address] [place] [phone] Referral ID Status Reason Start Date Expiration Date Visits Requ ested Visits Authorized [id number] Closed 05/22/2019 05/21/2020 1 1 Scheduling Instructions Schedule diet also. Encounter Details Date Type Department Care Team Description 05/22/2019 Orders Only Department of Radiation Summer Pérez P.A .-C., Oncology in [place] [address] [place] [phone] (Wo rk) Social History Tobacco Use Types [...] do you attend mosque or Never 2018 christianity services? Do you belong to any clubs [...] Radiology Mark Eastman M.D., M.S. [address] [place] [phone] 04/26/2022 Office Visit Otorhinolaryngology Roxanne Lanza APRN, C.N.P. [address] [place] [phone] 04/28/2022 Appointment Radiation Oncology Ursula Aguirre M.D. [address] [place] [phone] Scheduled Referrals Name Type Priority Associated Diagnoses Order S chedule Radiation Oncology Outpatient Referral Routine Ex pected: office visit 05/24/2019 (clinic) (Approximate), Expires: 05/22/2020 documented as of this encounter Visit Diagnoses Not on filedocumented in this encounter
--- OUTSIDE RECORDS SUMMARY | 2022-03-31 14:49 | XMS_ITS | Encounter Summary ---
:1955 Author Organization [facility] Address [address] [place] [address] Care Team Providers Name Role Phone Unavailable [...] do you attend faith or Never 2018 judaism services? Do you [...] Appointment Radiology Mark Eastman M.D., M.S. [address] [place] [phone] 04/26/2022 Office Visit Otorhinolaryngology Roxanne Lanza, CARDIOVASCULAR SPECIALIST, C.N.P. [address] [place] [phone] 04/28/2022 Appointment Radiation Oncology Ursula Aguirre M.D. [address] [place] [phone] documented as of this encounter Procedures Procedure Name Priority Date/Time Associated Diagnosis Comme nts ONCOLOGY IMAGE EXAM Routine 06/14/2019 3:30 PM Re sults for this CDT procedure are i n the results section. documented in this encounter Results Video-Oral Cavity-Oncology Image Exam (06/14/2019 3:30 PM CDT) Specimen (Source) Anatomical Location Collection Method / Collectio n Time Received Time / Laterality Volume Narrative IIMS - 06/15/2019 9:08 AM CDT This order has been created [...]
--- OUTSIDE RECORDS SUMMARY | 2022-03-31 14:49 | XMS_ITS | Encounter Summary ---
:1955 Author Organization [facility] Address [address] [place] [address] Care Team Providers Name Role Phone Unavailable Primary Care Provider Unavailable Encounter Details Date Type Department Care Team Description 05/22/2019 Clinical Communication Department of Radiation Kareem Pérez, Oncology in [place], PMassiel, M.S. [address] [place] [phone] Social History Tobacco Use Types Packs/Day Years [...] do you attend anglican or Never 2018 tenriism services? Do you [...] Encounter - Summer Pérez P.A.-C., M.S. - 05/22/2019 10:29 AM CDT The patient's son, Rolando, came to the clinic today to pickling solution maker a prescription refill of hydrocodone for his mom. He was told that a refill would be ready for her, but we have not had any communication with the patient or other family members recently regarding this request. I talked to Rolando today and explained that we need to see the patient in the clinic before we can provide any further prescription refills. This was written down for him to give to his mom. Appointments were scheduled with our dietitian, Natasha, and with Dr. Aguirre on May. They will contact us sooner with questions or concerns. Rolando verbally expressed his understanding of the plan. Summer Pérez P.A.-C. documented in this encounter Plan of Treatment Upcoming Encounters Date Type Specialty Care Team Description 04/22/2022 Clinical Admitting/Central Communication Scheduling 04/26/2022 Appointment Radiology Mark Eastman M.D., M.S. [address] [place] [phone] 04/26/2022 Office Visit Otorhinolaryngology Roxanne Lanza, SPRAY MAKER, C.N.P. [address] [place] [phone] 04/28/2022 Appointment Radiation Oncology Ursula Aguirre M.D. [address] [place] [phone] documented as of this encounter Visit Diagnoses Not on filedocumented in this encounter
--- OUTSIDE RECORDS SUMMARY | 2022-03-31 14:49 | XMS_ITS | Encounter Summary ---
:1955 Author Organization [facility] Address [address] [place] [address] Care Team Providers Name Role Phone Unavailable Primary Care Provider Unavailable Encounter Details Date Type Department Care Team Description 05/11/2019 Abstract Department of Radiation Jannet Cross R.N. Oncology in [place], [address] [place] [address] [facility] [phone] [place] [address] [phone] Social History Tobacco Use Types Packs/Day Years [...] do you attend yarsani or Never 2018 yazdanism services? Do you [...] Appointment Radiology Mark Eastman M.D., M.S. [address] [place] [phone] 04/26/2022 Office Visit Otorhinolaryngology Roxanne Lanza APRN, C.N.P. [address] [place] [phone] 04/28/2022 Appointment Radiation Oncology Ursula Aguirre M.D. [address] [place] [phone] documented as of this encounter Visit Diagnoses Not on filedocumented in this encounter
--- OUTSIDE RECORDS SUMMARY | 2022-03-31 14:49 | XMS_ITS | Encounter Summary ---
:1955 Author Organization [facility] Address [address] [place] [address] Care Team Providers Name Role Phone Unavailable Primary Care Provider Unavailable Reason for Visit Reason Comments Appointment Encounter Details Date Type Department Care Team Description 06/18/2019 Documentation Division of General Dolores Lucio, Appointment Internal Medicine in M.A.N., R.N . [place], [place] [address] [facility] [address] [place] [phone] Social History Tobacco Use Types Packs/Day Years [...] or relatives? How often do you attend buddhist or Never 2018 yazidi services? Do you belong to any clubs or No 02/21/2019 organizations such as buddhist groups, unions, fraternal or athletic groups, or [...] of this encounter Progress Notes Dolores Lucio R.N. - 06/18/2019 4:20 PM CST Orders in for PEG tube replacement. Patient currently has a 8100-20, placed in GI on 04/17 due to supraglottic laryngeal cancer. She will need a 30 minute slot, no anesthesia and a complex doctor. She will need to be seen in [facility] clinic by HEN RN, for 1st tube replacement. Request to be added with her 08/02 appointment. RVISOR LIQUEFACTION documented in this encounter Plan of Treatment Upcoming Encounters Date Type Specialty Care Team Description 04/22/2022 Clinical Admitting/Central Communication Scheduling 04/26/2022 Appointment Radiology Mark Eastman M.D., M.S. [address] [place] [phone] 04/26/2022 Office Visit Otorhinolaryngology Roxanne Lanza APRN, C.N.P. [address] [place] [phone] 04/28/2022 Appointment Radiation Oncology Ursula Aguirre M.D. [address] [place] [phone] documented as of this encounter Visit Diagnoses Not on filedocumented in this encounter
--- OUTSIDE RECORDS SUMMARY | 2022-03-31 14:49 | XMS_ITS | Encounter Summary ---
:1955 Author Organization [facility] Address [address] [place] [address] Care Team Providers Name Role Phone Unavailable Primary Care Provider Unavailable Encounter Details Date Type Department Care Team Description 06/18/2019 Orders Only Department of Emy Kuhn Malignan t Neoplasm Of Supraglottic (HCC) (Primary Dx); Nutrition in RDN, LD Home Enteral Nutrition; [place], [place] [address] [facility] Gastrostomy Status (HCC) [address] [place] [phone] Social History Tobacco Use Types Packs/Day Years [...] do you attend advent or Never 2018 mosque services? Do you belong to any clubs [...] documented as of this encounter Progress Notes Emy Kuhn RDN, JUANITO - 06/18/2019 2:08 PM CST Home Enteral Nutrition Follow-up per protocol Reviewed EMR. Obdulia Narayan is being followed by dietitians with the team in [place]. I appreciate their recent assessment on 06/14/19. Ms. Narayan's tube will be due for replacement from 07/17/19 to 09/17/2019. I've asked our HEN providerto order HEN replacement appointments noting patient has some appointments in [place] in mid July and follow-up with Dr. Aguirre and AYLEEN in [place] on 08/02/19. FLATBED DRIVER documented in this encounter Plan of Treatment Upcoming Encounters Date Type Specialty Care Team Description 04/22/2022 Clinical Admitting/Central Communication Scheduling 04/26/2022 Appointment Radiology Mark Eastman M.D., M.S. [address] [place] [phone] 04/26/2022 Office Visit Otorhinolaryngology Roxanne Lanza, LABEL PASTER, C.N.P. [address] [place] [phone] 04/28/2022 Appointment Radiation Oncology Ursula Aguirre M.D. [address] [place] [phone] documented as of this encounter Visit Diagnoses Diagnosis Malignant Neoplasm Of Supraglottic (HCC) - Primary Home Enteral Nutrition Gastrostomy Status (HCC) documented in this encounter
--- OUTSIDE RECORDS SUMMARY | 2022-03-31 14:49 | XMS_ITS | Encounter Summary ---
:1955 Author Organization [facility] Address [address] [place] [address] Care Team Providers Name Role Phone Unavailable Primary Care Provider Unavailable Reason for Referral Outpatient (Routine) - Closed Specialty Diagnoses / Procedures Referred By Contact Refer red To Contact Nutrition Diagnoses Malignant Neoplasm Of Supraglottic (HCC) Summer Pérez P.A.-C., [facility] [place] [facility] M.[facility] [address] [place] [address] Referral ID Status Reason Start Date Expiration Date Visits Requ ested Visits Authorized [id number] Closed 05/07/2019 05/06/2020 1 1 Scheduling Instructions LILLIE pt, please schedule for this week an d please call daughter in [place] at [phone] to help schedule as she sunny l be providing transportation to this appt, thanks Outpatient (Routine) - Canceled Specialty Diagnoses / Procedures Referred By Contact Refer red To Contact Radiation Oncology Diagnoses Malignant Neoplasm Of Supraglottic (HCC) Ursula Aguirre [facility] [place] [facility] M.D. [address] [place] [address] Referral ID Status Reason Start Date Expiration Date Visits V isits Requested Authorized [id number] Canceled 03/15/2019 03/14/2020 1 1 Reason for Visit Outpatient (Routine) - Canceled Specialty Diagnoses / Procedures Referred By Contact Refer red To Contact Radiation Oncology Diagnoses Malignant Neoplasm Of Supraglottic (HCC) Ursula Aguirre [facility] [place] [facility] M.D. [address] [place] [phone] Referral ID Status Reason Start Date Expiration Date Visits V isits Requested Authorized [id number] Canceled 03/15/2019 03/14/2020 1 1 Encounter Details Date Type Department Care Team Description 05/07/2019 Hospital Encounter Department of Mary Aguirre M.D. [address] [place] [phone] Malignant Neoplasm Of Radiation Oncology Jannet Cross R.N. [address] [place] [address] [phone] Supraglottic (HCC) in [place], [place] [address] [place] [address] Social History Tobacco Use Types [...] do you attend hoahaoism or Never 2018 religion services? Do you [...] Sign Reading Time Taken Comments Blood Pressure 138/55 05/07/2019 9:30 AM CDT Pulse 84 05/07/2019 9:30 AM CDT Temperature 36.4 ??C (97.5 ??F) 05/07/2019 9:30 AM CDT Respiratory Rate - - Oxygen Saturation - - Inhaled Oxygen Concentration - - Weight 80 kg (176 lb 5.9 oz) 05/07/2019 9:30 AM CDT Height - - Body Mass Index 28.75 04/18/2019 8:26 AM CDT documented in this [...] nasal spray daily as needed for allergies. sulfamethoxazole-trimethopr Take 1 tablet by 10 tablet [...] (four) hours. HYDROcodone-acetaminophen Take 10 mL by 480 mL 0 019 05/15/2019 (HYCET) 7.5-325 mg/15 mL mouth as directed [...] as of this encounter Progress Notes Jannet Cross RNhung. - 05/07/2019 9:30 AM CDT Nurse follow up visit Current Radiotherapy Treatment 05/04/2019 Plan ID [id number] H&N Prescription dose in cGy 7000 Prescribed total fractions for plan 35 Fractions treated to date 35 Dosage given to date 7000 SUBJECTIVE Obdulia Narayan a 63 y.o. reports that she feels well today and that the weekend went well. She did not find benefit with 12 mcg Fentanyl patches therefore she is not using them. She finds sufficient benefit with taking 5-10 ml of liquid Hydrocodone-Tylenol as needed every 4-6 hours in managing hersore throat pain. She rates her pain at a 5 out of 10 today and does not feel the need to make pain medication adjustment at this time. Liquid Ibuprofen has caused stomach upset so she has held off on taking this. She denies fevers, chills, nausea or vomiting. She has been taking in 3 cans of Nutren 1.5 a day. If she tries to take 2 cans at a time she reports that she then vomits. She is taking her prescribed Bactrim DS and her and her family report decreased erythema around PEG site since initiating Bactrim DS. She denies any new concerns or questions today. Patient is requesting refill on her liquid Hydrocodone-Tylenol. OBJECTIVE BP 138/55 (BP Location: Right arm, Patient Position: Sitting, Cuff Size: Small) Pulse 84 Temp 36.4 ??C (Temporal) Wt 80 kg BMI 28.75 kg/m?? PHYSICAL EXAM General appearance: alert, appears stated age, cooperative and no distress Throat: no mucositis in the posterior oropharynx is noted. No signs of thrush noted Neck: She has moderate erythema and tanning of the skin to bilateral neck region down. Small area ofdry desquamation to the mid neck posterior and superior. Abdomen: She has erythema specifically to the left side of the PEG tube site. Small amount of serousdrainage from the posterior aspect of PEG insertion site. Area of erythema marked today. ASSESSMENT / PLAN I am encouraged to hear that patient is doing well overall. Patient's weight continues to decrease and she is not meeting her target goal of 5 cans of Nutren 1.5 a day. I recommended that patient trialtaking 1 can at a time, 5 times a day so that we can reassess how this is tolerated. Patient is willing to meet with our [employer] team this coming and this order has been placed. I have marked area of erythema near PEG site. Patient and family will continue to monitor this daily and notify care team if erythema does not continue to improve. Summer Pérez PA-C was able to refill liquid Hydrocodone-Tylenol prescription today. Pain will start to improve in 2-4 weeks. When pain starts to improve,patient can slowly decrease use of liquid Hydrocodone-Tylenol. I recommended that patient apply Aquaphor to treatment field area 4 times a day. I have reviewed Moist Skin Reaction [id number] with pamphlet today. I have provided patient samples of Pro Net, Xeroform and Telfa. Patient is to start white vi kaelyn soaks if skin starts to blister and open. Plan of care was reviewed with Summer Pérze PA-C today. Dr. Aguirre will see patient in follow up on June 14, 2019 and we will have her see our dieticianapurva at the same time. Radiation Oncology [facility] can be contacted at anytime for any questions,concerns or assistance with symptom management. Signed by: Jannet Cross R.N. 05/07/2019 1:58 PM documented in this encounter Miscellaneous Notes Addendum Note - Jannet Cross R.N. - 05/07/2019 9:30 AM CDT Encounter addended by: Jannet Cross R.N. on: 05/07/2019 11:33 AM Actions taken: Diagnosis association updated, Order list changed, Clinical Note Signed, LOS modified, Medication List reviewed, Problem List reviewed, Allergies reviewed documented in this encounter Plan of Treatment Upcoming Encounters Date Type Specialty Care Team Description 04/22/2022 Clinical Admitting/Central Communication Scheduling 04/26/2022 Appointment Radiology Mark Eastman M.D., M.S. [address] [place] [address] [phone] 04/26/2022 Office Visit Otorhinolaryngology Roxanne Lanza, WEEKEND RECEPTIONIST, C.N.P. [address] [place] [phone] 04/28/2022 Appointment Radiation Oncology Ursula Aguirre M.D. [address] [place] [phone] Scheduled Referrals Name Type Priority Associated Diagnoses Order S chedule Radiation Oncology Outpatient Referral Routine Malignant Neopl asm Once for 1 nurse visit Of Supraglottic Occurrences (clinic) (HCC) starting 2018 until 9 Nutrition - Outpatient Referral Routine Malignant Neoplasm Ex pected: Medical nutrition Of Supraglottic 019 therapy consult (HCC) (Approximate ), (clinic) Expires: 2019 documented as of this encounter Visit Diagnoses Diagnosis Malignant Neoplasm Of Supraglottic (HCC) documented in this encounter
--- OUTSIDE RECORDS SUMMARY | 2022-03-31 14:50 | XMS_ITS | Encounter Summary ---
:1955 Author Organization [facility] Address [address] [place] [address] Care Team Providers Name Role Phone Unavailable Primary Care Provider Unavailable Reason for Visit Radiation Therapy (Routine) - Closed Specialty Diagnoses / Procedures Referred By Contact Refer red To Contact Diagnoses Malignant Neoplasm Of Supraglottic (HCC) Ursula Aguirre M.D. [facility] Procedures Prior Auth Rad Tx [place] IMRT COMPLEX [address] [place] [phone] Referral ID Status Reason Start Date Expiration Date Visits Requ ested Visits Authorized [id number] Closed 03/15/2019 03/14/2020 35 35 Encounter Details Date Type Department Care Team Description 04/25/2019 Hospital Encounter Department of Radiation Bud Aguirre I., [place]cology [place] [address] [facility] [address] [place] [phone] Social History Tobacco Use Types Packs/Day Years [...] do you attend jew or Never 2018 nondenominational services? Do you [...] (HYDRODIURIL) 25 mg tablet mouth every evening. fentaNYL (DURAGESIC) 12 Place 1 patch on 5 patch 0 201804/26/2019 mcg/hr patchIndications: the skin every Prolonged Acute third day for 15 Pain/Traumatic Injury days Indication: Prolonged Acute Pain/Traumatic Injury. acetaminophen (TYLENOL) 500 Take 500 mg by [...] mouth every 4 (four) hours. HYDROcodone-acetaminophen Take 10-15 mL by 240 mL 0 03/1604/26/2019 (HYCET) 7.5-325 mg/15 mL mouth as directed [...] Radiology Mark Eastman M.D., M.S. [address] [place] [phone] 04/26/2022 Office Visit Otorhinolaryngology Roxanne Lanza APRN, C.N.P. [address] [place] [phone] 04/28/2022 Appointment Radiation Oncology Ursula Aguirre M.D. [address] [place] [phone] documented as of this encounter Visit Diagnoses Not on filedocumented in this encounter
--- OUTSIDE RECORDS SUMMARY | 2022-03-31 14:50 | XMS_ITS | Encounter Summary ---
:1955 Author Organization [facility] Address [address] [place] [address] Care Team Providers Name Role Phone Unavailable Primary Care Provider Unavailable Encounter Details Date Type Department Care Team Description 04/26/2019 Orders Only Department of Radiation Summer Pérez P.A .-C., Oncology in [facility] [address] [facility] [address] [place] [phone] (Wo rk) Social History Tobacco Use Types [...] do you attend scientology or Never 2018 lutheran services? Do you [...] Appointment Radiology Mark Eastman M.D., M.S. [address] [place] [phone] 04/26/2022 Office Visit Otorhinolaryngology Roxanne Lanza APRN, C.N.P. [address] [place] [phone] 04/28/2022 Appointment Radiation Oncology Ursula Aguirre M.D. [address] [place] [phone] documented as of this encounter Visit Diagnoses Not on filedocumented in this encounter
--- OUTSIDE RECORDS SUMMARY | 2022-03-31 14:50 | XMS_ITS | Encounter Summary ---
:1955 Author Organization [facility] Address [address] [place] [address] Care Team Providers Name Role Phone Unavailable Primary Care Provider Unavailable Reason for Visit Radiation Therapy (Routine) - Closed Specialty Diagnoses / Procedures Referred By Contact Refer red To Contact Diagnoses Malignant Neoplasm Of Supraglottic (HCC) Ursula Aguirre M.D. [facility] Procedures Prior Auth Rad Tx [place] IMRT COMPLEX [address] [place] [phone] Referral ID Status Reason Start Date Expiration Date Visits Requ ested Visits Authorized [id number] Closed 03/15/2019 03/14/2020 35 35 Encounter Details Date Type Department Care Team Description 04/24/2019 Hospital Encounter Department of Radiation Bud Aguirre I., [place] [address] [facility] [address] [place] [phone] Social History Tobacco Use Types Packs/Day Years [...] do you attend anabaptist or Never 2018 bahai services? Do you [...] Radiology Mark Eastman M.D., M.S. [address] [place] [phone] 04/26/2022 Office Visit Otorhinolaryngology Roxanne Lanza APRN, C.N.P. [address] [place] [phone] 04/28/2022 Appointment Radiation Oncology Ursula Aguirre M.D. [address] [place] [phone] documented as of this encounter Visit Diagnoses Not on filedocumented in this encounter
--- OUTSIDE RECORDS SUMMARY | 2022-03-31 14:50 | XMS_ITS | Encounter Summary ---
:1955 Author Organization [facility] Address [address] [place] [address] Care Team Providers Name Role Phone Unavailable Primary Care Provider Unavailable Reason for Visit Radiation Therapy (Routine) - Closed Specialty Diagnoses / Procedures Referred By Contact Refer red To Contact Diagnoses Malignant Neoplasm Of Supraglottic (HCC) Ursula Aguirre M.D. [facility] Procedures Prior Auth Rad Tx [place] IMRT COMPLEX [address] [place] [phone] Referral ID Status Reason Start Date Expiration Date Visits Requ ested Visits Authorized [id number] Closed 03/15/2019 03/14/2020 35 35 Encounter Details Date Type Department Care Team Description 04/27/2019 Hospital Encounter Department of Radiation Bud Aguirre I., [place]cology [place] [address] [facility] [address] [place] [phone] Social History Tobacco Use Types Packs/Day Years [...] do you attend religion or Never 2018 denominational services? Do you [...] Take 10-15 mL by 240 mL 0 04/1505/02/2019 (HYCET) 7.5-325 mg/15 mL mouth as directed [...] Appointment Radiology Mark Eastman M.D., M.S. [address] [place] [phone] 04/26/2022 Office Visit Otorhinolaryngology Roxanne Lanza APRN, C.N.P. [address] [place] [address] [phone] 04/28/2022 Appointment Radiation Oncology Ursula Aguirre M.D. [address] [place] [address] [phone] documented as of this encounter Visit Diagnoses Not on filedocumented in this encounter
--- OUTSIDE RECORDS SUMMARY | 2022-03-31 14:50 | XMS_ITS | Encounter Summary ---
:1955 Author Organization [facility] Address [address] [place] [address] Care Team Providers Name Role Phone Unavailable Primary Care Provider Unavailable Reason for Referral Outpatient (Routine) - Closed Specialty Diagnoses / Procedures Referred By Contact Refer red To Contact Nutrition Diagnoses Malignant Neoplasm Of Supraglottic (HCC) Summer Pérez P.A.-C., [facility] [address] [place] [phone] Referral ID Status Reason Start Date Expiration Date Visits Requ ested Visits Authorized [id number] Closed 03/29/2019 03/28/2020 1 1 Reason for Visit Outpatient (Routine) - Closed Specialty Diagnoses / Procedures Referred By Contact Refer red To Contact Nutrition Diagnoses Malignant Neoplasm Of Supraglottic (HCC) Summer Pérez P.A.-C., [facility] [address] [place] [phone] Referral ID Status Reason Start Date Expiration Date Visits Requ ested Visits Authorized [id number] Closed 03/29/2019 03/28/2020 1 1 Encounter Details Date Type Department Care Team Description 04/26/2019 Hospital Encounter Department of Summer Pérez P.A.-C., M.S. [address] [place] [phone] Malignant Neoplasm Of Radiation Oncology Ryanne Mcbride, JUANITO [address] [place] [address] Supraglottic (HCC) in [place], [place] [address] [place] [address] Social History Tobacco Use Types [...] or relatives? How often do you attend yazdanism or Never 2018 tenriism services? Do you belong to any clubs or No 02/21/2019 organizations such as yazdanism groups, unions, fraternal or athletic groups, or [...] encounter Progress Notes Ryanne Mcbride LD - 04/26/2019 9:13 AM CDT CHIEF COMPLAINT/REASON FOR VISIT ??Malignant Neoplasm Of Supraglottic (HCC) (C32.1)? HISTORY OF PRESENT ILLNESS Mrs. 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 Radiotherapy to the supraglottic tumor initiated on March 26, 2019; anticipated date of completion is May 04, 2019.? Met with patient and her son Patient??is hard of hearing and reads lips. For phone contact Merlin (son)??states, his Darlin is the one to call, . ?? 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 ??She does not drink alcohol. ?? Medical Tests and Procedures/Biochemical Data Swallow evaluation on 03/28/19 showed mild dysphagia. With side-effects of treatment increased difficulty swallowing due to pain and gagging. ?? Nutrition Focused Physical Findings Mouth/throat/esophagus: dry mouth, dry, sore throat, coughing past couple of days Nausea/vomiting: no nausea, vomiting last night related to excessive coughing Bowels: loose ?? Tube Information Gastrostomy tube??placed by GI 04/17/19 LEONARDO 20 [place] balloon gastrostomy, ENFit connector ?? Food/Nutrient Related History Water only by mouth at this time. Drinking 3-20 ounce glasses with ice.? Weight History Usual body weight: 230# (104.5??kg) last year, per patient 03/16/19: 88.5 kg 03/28/19: 87.7 kg 04/04/19: 86.3 kg 04/11/19: 83.5 kg 04/12/19: 82.5 kg--5.8% loss from treatment start weight 04/18/19: 83.6 kg 04/26/19: 82.4 kg ?? Height: 167 cm ?? Estimation of Nutritional Needs using 82.5 kg (04/12/19) and 167 cm 1800 calories/day (HB basal + 20%) 85 grams protein/day (1 gram/kg) 2100 to 2500 mL fluid/day (25 to 30 mL/kg) ?? Assessment Summary Obdulia Narayan is not able to meet her nutrition or hydration needs orally due to dysphagia/side-effects of treatment. She needs tube feedings to meet her needs for several months until able to gradually resume oral intake. A feeding gastrostomy was placed 04/17/19. ?? Weight is down 1.2 kg (2.6 lbs) from last week. Patient and son report 4 cartons of feeding tolerated yesterday and 5 the previous day. Patient consistently drinking 3 24 ounce mugs of water with ice aday. They also report last night a coughing episode during the night resulted in vomiting. Coughing episodes also result in soreness in her abdomen. Son reports being out of the prescription cough medicine for the past 3 days. PA notified and addressed with patient and son. ?? NUTRITION DIAGNOSIS Inadequate oral intake (NI-2.1)??related to side-effects of treatment??as evidenced by weight loss and diet history. ?? Unintentional weight loss related to cancer as evidenced by??approximate 16.8??kg weight loss in thelast??year??prior to treatment??per patient report and 5.8% weight loss prior [...] 85??g protein/day and 1250??mL of fluid/day Water flushes of 60 mL before and after each feeding will provide 360 mL with infusion as above. Goal of at least 1250 mL by flushes or mouth to meet estimated fluid needs. ?? Oral Program: as tolerated ?? INTERVENTION Encouraged goal of 5 cartons Nutren 1.5 a day to meet estimated needs. Current plan is 2-2-1. Patient and family aware the infusion schedule can be adjusted based on tolerance/preference and have been doing so. Reviewed benefit of fluids by mouth as able and tolerated. ?? Care Coordination Authorization on file to speak with DME/Infusion Company: yes DME/Infusion Company that will provide needed supplies for home: ??[employer]??. They delivered supplies 04/18/19. ?? Indication for Ongoing Enteral Nutrition ??Home Enteral Nutrition, dysphagia, suqpaglottic squamous cell carcinoma. Anticipated duration of tube feedings is 12 months. This is??the sole source of nutrition. ?? MONITORING AND EVALUATION Nutrition parameter to monitor: ??Weight Desired Outcome: ??Prevent further weight loss Patient Goal(s): 1. Nutren 1.5, 5 containers a day, schedule of 2-2-1 or as tolerated with 60 ml flush before and after each feeding. 2. Fluid by flush or mouth to meet estimated fluid needs. ?? Follow-up Plan Follow up visit 1 week. ?? Time spent with patient (minutes):??15 documented in this encounter Plan of Treatment Upcoming Encounters Date Type Specialty Care Team Description 04/22/2022 Clinical Admitting/Central Communication Scheduling 04/26/2022 Appointment Radiology Mark Eastman M.D., M.S. [address] [place] [phone] 04/26/2022 Office Visit Otorhinolaryngology Roxanne Lanza APRN, C.N.P. [address] [place] [phone] 04/28/2022 Appointment Radiation Oncology Ursula Aguirre M.D. [address] [place] [phone] Scheduled Referrals Name Type Priority Associated Diagnoses Order S chedule Nutrition - Outpatient Referral Routine Malignant Neoplasm On ce for 1 Medical nutrition Of Supraglottic Occurre nces therapy consult (HCC) starting 07/2019 (clinic) until 9 documented as of this encounter Visit Diagnoses Diagnosis Malignant Neoplasm Of Supraglottic (HCC) documented in this encounter
--- OUTSIDE RECORDS SUMMARY | 2022-03-31 14:50 | XMS_ITS | Encounter Summary ---
:1955 Author Organization [facility] Address [address] [place] [address] Care Team Providers Name Role Phone Unavailable Primary Care Provider Unavailable Reason for Referral Radiation Therapy (Routine) - Canceled Specialty Diagnoses / Procedures Referred By Contact Refer red To Contact Diagnoses Malignant Neoplasm Of Supraglottic (HCC) Ursula Aguirre M.D. [facility] Procedures Management Visit [address] [place] [phone] Referral ID Status Reason Start Date Expiration Date Visits V isits Requested Authorized [id number] Canceled 03/15/2019 03/14/2020 1 1 Reason for Visit Radiation Therapy (Routine) - Canceled Specialty Diagnoses / Procedures Referred By Contact Refer red To Contact Diagnoses Malignant Neoplasm Of Supraglottic (HCC) Ursula Aguirre M.D. [facility] Procedures Management Visit [address] [place] [phone] Referral ID Status Reason Start Date Expiration Date Visits V isits Requested Authorized [id number] Canceled 03/15/2019 03/14/2020 1 1 Encounter Details Date Type Department Care Team Description 04/24/2019 Hospital Encounter Department of Peter Schultz Neoplasm Of Radiation Oncology Jose Serna M.D. Supraglottic (HCC) in [place], [address] [place], [place] [address] [facility] [address] [place], [place] [phone] (Work) [phone] Social History Tobacco Use Types Packs/Day Years [...] do you attend catholic or Never 2018 mu-ism services? Do you [...] Sign Reading Time Taken Comments Blood Pressure 140/71 04/24/2019 11:42 AM CDT Pulse 101 04/24/2019 11:42 AM CDT Temperature 36.5 ??C (97.7 ??F) 04/24/2019 11:42 AM CDT Respiratory Rate - - Oxygen Saturation - - Inhaled Oxygen Concentration - - Weight 82.6 kg (182 lb 1.6 oz) 04/24/2019 11:42 AM CDT Height - - Body Mass Index 29.69 04/18/2019 8:26 AM CDT documented in this encounter Medications at Time of Discharge Medication Sig Dispensed Refills Start Date End Date aspirin 81 mg chewable Chew 81 mg every 0 tablet evening. [employer]na Aspirin diaper,brief,adult,disposab Bag: (36 each) 36 each 1 03/16 le (DEPEND UNDERWEAR FOR WOMEN XL) misc hydroCHLOROthiazide Take 25 mg by 11 02/18/2019 (HYDRODIURIL) 25 mg tablet mouth every evening. fluticasone propionate Administer 1 spray 0 01/13 (FLONASE) 50 mcg/actuation into each nostril nasal spray daily as needed for allergies. fentaNYL (DURAGESIC) 12 Place 1 patch on [...] 6 (six) hours as needed for pain. losartan (COZAAR) 100 mg Take 100 mg by 0 05/03/2019 tablet mouth daily. Restarted 04/01 after completion of antibiotic therapy. metFORMIN (GLUCOPHAGE) 500 2 (two) times a 11/1311/02/2019 mg tablet day. nicotine (NICODERM CQ) [...] documented as of this encounter Progress Notes Jose Schultz M.D. - 04/24/2019 1:13 PM CDT SUBJECTIVE REASON FOR VISIT Evaluation for side effects while receiving radiation treatment for 1. Malignant Neoplasm Of Supraglottic (HCC) SUPERVISED BY: Dr. 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 ??She??has received 25??of 35??fractions for a dose of??5000??cGy out of a planned total dose of 7000??cGy. ??Her??anticipated date of completion is May 04, 2019. She is receiving altered fractionation treatment with twice a day treatment once weekly. ??She will not be receiving concurrent chemotherapy.?? She had PEG tube placement on April 17, 2019 due to acute weight loss. The patient was seen and examined today with Dr. Schultz. The patient reports doing well overall. Patient denies fevers, chills, shortness of breath or chest pain. Cough is mild in nature related to sore throat. She rates her sore throat pain at a 3 out of 10. She notices mild left ear pain that had improved but now has returned again. Pain is being well managed with liquid Ibuprofen. She did not have 12 mcg Fentanyl patch on yesterday and plans on re applying later today. She is not needing to take liquid Hydrocodone-Tylenol. Secretions have improved overall. She did have 1 episode of diarrhea earlier today that she feels may have been related to upset stomach. She has taken in 2 cans of Nutren 1.5 so far today and plans to take in 3 additional cans yettoday. She is drinking 64-100 oz of water on her own. She denies tightening of the jaw area. [place] butter is being applied to the treatment field area. She denies nausea or vomiting. She reports good energy levels. She denies any other questions or concerns today. PATIENT REPORTED SYMPTOM SCREEN FATIGUE (Scale: 0 = no fatigue; 10 = worst fatigue you can imagine): 5 ?? PAIN (Scale: 0 = no pain; 10 = worst pain you can imagine): 3 ?? OVERALL QUALITY OF LIFE (Scale: 0 = as bad as can be; 10 = as good as can be): OBJECTIVE BP 140/71 (BP Location: Right arm, Patient Position: Sitting, Cuff Size: Small) Pulse 101 Temp 36.5 ??C (Temporal) Wt 82.6 kg BMI 29.69 kg/m? PHYSICAL EXAM General: Alert and oriented in no apparent distress. Skin: Mild erythema to the bilateral neck down. Abdomen: no signs of infection noted around PEG tube insertion site. 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 2.?Definitive radiotherapy to the supraglottic tumor initiated on March 26, 2019; anticipated date of completion is May 04, 2019 3. ??Left facial boil, s/p incision and drainage on March 28, 2019; Bactrim initiated for 5 days onMarch 28, 2019 4. PEG tube placement on April 17, 2019 The patient is tolerating radiation treatment well overall. Weight has decreased overall since starting treatment but she does have PEG tube now in placed and is working towards goal rate of 5 cans a day. Patient is completing site care appropriately to PEG insertion site daily. She will meet with ourdietitian . She will apply fentanyl 12 mcg patch this afternoon and change out every 72 hours. She has hydrocodone-acetaminophen solution available if needed for breakthrough pain. She is to continue with frequent lotion application. She will contact us with any questions or concerns. We will continue with radiation treatment as planned. Signed by: Jannet Cross R.N. 04/24/2019 I saw and evaluated the patient and participated in the rao portions of the service. I reviewed the documentation of Jannet Cross R.N. and agree with the findings and plan. The patient appears well onexam. She is here today with her son, Rolando. She has no signs of mucositis. She does have very mild erythema of her neck with no desquamation. She will continue with treatment as planned. Signed by: Jose Schultz M.D. 04/24/2019 4:46 PM [facility] [address] [place] [address] documented in this encounter Plan of Treatment Upcoming Encounters Date Type Specialty Care Team Description 04/22/2022 Clinical Admitting/Central Communication Scheduling 04/26/2022 Appointment Radiology Mark Eastman M.D., M.S. [address] [place] [phone] 04/26/2022 Office Visit Otorhinolaryngology Roxanne Lanza APRN, C.N.P. [address] [place] [phone] 04/28/2022 Appointment Radiation Oncology Ursula Aguirre M.D. [address] [place] [phone] Scheduled Orders Name Type Priority Associated Diagnoses Order S chedule Management Visit Radiation Oncology Routine Malignant Neoplasm Of Once for 1 Supraglottic (HCC) Occurrenc es starting 04/24/2019 unti l 04/24/2019 documented as of this encounter Visit Diagnoses Diagnosis Malignant Neoplasm Of Supraglottic (HCC) documented in this encounter
--- OUTSIDE RECORDS SUMMARY | 2022-03-31 14:50 | XMS_ITS | Encounter Summary ---
:1955 Author Organization [facility] Address [address] [place] [address] Care Team Providers Name Role Phone Unavailable Primary Care Provider Unavailable Reason for Referral Radiation Therapy (Routine) - Canceled Specialty Diagnoses / Procedures Referred By Contact Refer red To Contact Diagnoses Malignant Neoplasm Of Supraglottic (HCC) Ursula Aguirre M.D. [facility] Procedures Management Visit [address] [place] [address] [phone] Referral ID Status Reason Start Date Expiration Date Visits V isits Requested Authorized [id number] Canceled 04/09/2019 04/08/2020 10 10 Reason for Visit Radiation Therapy (Routine) - Canceled Specialty Diagnoses / Procedures Referred By Contact Refer red To Contact Diagnoses Malignant Neoplasm Of Supraglottic (HCC) Ursula [facility]ir[facility].D. [facility] Procedures Management Visit [address] [place] [address] [phone] Referral ID Status Reason Start Date Expiration Date Visits V isits Requested Authorized [id number] Canceled 04/09/2019 04/08/2020 10 10 Encounter Details Date Type Department Care Team Description 04/23/2019 Hospital Encounter Department of Ursula Aguirre Neoplasm Of Radiation Oncology Kimberley Bacon Supraglottic (HCC) in [place], [address] [place], [place] [address] [facility] [address] [place], [place] [phone] (Work) [phone] Social History Tobacco Use Types Packs/Day Years [...] do you attend spiritism or Never 2018 anabaptist services? Do you belong to any clubs [...] Sign Reading Time Taken Comments Blood Pressure 134/67 04/23/2019 12:07 PM CDT Pulse 78 04/23/2019 12:07 PM CDT Temperature 36.1 ??C (97 ??F) 04/23/2019 12:07 PM CDT Respiratory Rate - - Oxygen Saturation - - Inhaled Oxygen Concentration - - Weight 83.8 kg (184 lb 11.9 oz) 04/23/2019 12:07 PM CDT Height - - Body Mass Index 30.12 04/18/2019 8:26 AM CDT documented in this encounter Medications at Time of Discharge Medication Sig Dispensed Refills Start Date End Date aspirin 81 mg chewable Chew 81 mg every 0 tablet evening. [employer] Aspirin diaper,brief,adult,disposab Bag: (36 each) 36 each [...] Pain/Traumatic Injury Indication: Prolonged Acute Pain/Traumatic Injury. donavononide-formoterol Inhale 2 puffs 2 0 08/02/2019 (SYMBICORT) [...] Radiology Mark Eastman M.D., M.S. [address] [place] [phone] 04/26/2022 Office Visit Otorhinolaryngology Roxanne Lanza, SUPERVISOR SANDBLASTER, C.N.P. [address] [place] [phone] 04/28/2022 Appointment Radiation Oncology Ursula Aguirre M.D. [address] [place] [phone] Scheduled Orders Name Type Priority Associated Diagnoses Order S chedule Management Visit Radiation Oncology Routine Malignant Neoplasm Of Once for 1 Supraglottic (HCC) Occurrenc es starting 04/23/2019 unti l 04/23/2019 documented as of this encounter Visit Diagnoses Diagnosis Malignant Neoplasm Of Supraglottic (HCC) documented in this encounter
--- OUTSIDE RECORDS SUMMARY | 2022-03-31 14:50 | XMS_ITS | Encounter Summary ---
:1955 Author Organization [facility] Address [address] [place] [address] Care Team Providers Name Role Phone Unavailable Primary Care Provider Unavailable Reason for Referral Outpatient (Routine) - Canceled Specialty Diagnoses / Procedures Referred By Contact Refer red To Contact Radiation Oncology Diagnoses Malignant Neoplasm Of Supraglottic (HCC) Ursula Aguirre [facility] [place] [facility] M.D. 200 [place] [address] Referral ID Status Reason Start Date Expiration Date Visits V isits Requested Authorized [id number] Canceled 03/15/2019 03/14/2020 1 1 Reason for Visit Outpatient (Routine) - Canceled Specialty Diagnoses / Procedures Referred By Contact Refer red To Contact Radiation Oncology Diagnoses Malignant Neoplasm Of Supraglottic (HCC) Ursula Aguirre [facility] [place] [facility] M.D. [address] [place] [address] Referral ID Status Reason Start Date Expiration Date Visits V isits Requested Authorized [id number] Canceled 03/15/2019 03/14/2020 1 1 Encounter Details Date Type Department Care Team Description 04/23/2019 Hospital Encounter Department of Mary Aguirre M.D. [address] [place] [phone] Malignant Neoplasm Of Radiation Oncology Jannet Cross R.N. 200 [place] [address] Supraglottic (HCC) in [place], [place] [address] [place] [address] Social History Tobacco Use Types Packs/Day Years [...] do you attend sikh or Never 2018 caodaism services? Do you belong to any clubs [...] of this encounter Progress Notes Jannet Cross R.N. - 04/23/2019 3:49 PM CDT SUBJECTIVE REASON FOR VISIT Evaluation for side effects while receiving radiation treatment for 1. 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 ??She??has received 24??of 35??fractions for a dose of??4800??cGy out of a planned total dose of 7000??cGy. ??Her??anticipated date of completion is May 04, 2019. She is receiving altered fractionation treatment with twice a day treatment once weekly. ??She will not be receiving concurrent chemotherapy.?? Patient reports that she had a good weekend. She has been able to take in 3 cans of Nutren 1.5 dailythrough her PEG tube. She plans to slowly increase to goal of 5 cans per day. She is drinking 64-100oz of water a day. She feels her pain is being well managed with 12 mcg Fentanyl patch and Ibuprofenas needed. Lotion is being applied to the treatment field area. She denies fevers or chills. She pref ers to not be scooped today. PATIENT REPORTED SYMPTOM SCREEN FATIGUE (Scale: 0 = no fatigue; 10 = worst fatigue you can imagine): 2-3 ?? PAIN (Scale: 0 = no pain; 10 = worst pain you can imagine): 4 ?? OVERALL QUALITY OF LIFE (Scale: 0 = as bad as can be; 10 = as good as can be): 10 OBJECTIVE There were no vitals taken for this visit. ?? PHYSICAL EXAM General: Alert and oriented in no apparent distress. ENT: no signs of infection or mucositis with in the oral cavity. Skin: mild erythema to the mid neck region. Abdomen: small amount of faint yellow secretion and slight blood tinged secretion from PEG insertionsite. No warmth, foul odor or other signs of infection noted. ASSESSMENT / PLAN The patient is tolerating radiation treatment well overall. The patient reports being confident in tube feedings. I could not see 12 mcg Fentanyl patch on her today therefore patient will apply a new patch today and change out every 3 days starting with today's application. I recommended that she continue to increase her feeding intake to goal of 5 cans per day. She has hydrocodone-acetaminophen solution available if needed for breakthrough pain. The patient would like to re-schedule having a scope performed. She will contact us with any questions or concerns. We will continue with radiation treatment as planned. Signed by: Jannet Cross R.N. 04/23/2019 2:19 PM documented in this encounter Plan of Treatment Upcoming Encounters Date Type Specialty Care Team Description 04/22/2022 Clinical Admitting/Central Communication Scheduling 04/26/2022 Appointment Radiology Mark Eastman M.D., M.S. [address] [place] [phone] 04/26/2022 Office Visit Otorhinolaryngology Roxanne Lanza, BUSINESS TRANSFORMATION CONSULTANT, C.N.P. [address] [place] [phone] 04/28/2022 Appointment Radiation Oncology Ursula Aguirre M.D. [address] [place] [phone] Scheduled Referrals Name Type Priority Associated Diagnoses Order S chedule Radiation Oncology Outpatient Referral Routine Malignant Neopl asm Once for 1 nurse visit Of Supraglottic Occurrences (clinic) (HCC) starting 2018 until 9 documented as of this encounter Visit Diagnoses Diagnosis Malignant Neoplasm Of Supraglottic (HCC) documented in this encounter
--- OUTSIDE RECORDS SUMMARY | 2022-03-31 14:50 | XMS_ITS | Encounter Summary ---
:1955 Author Organization [facility] Address [address] [place] [address] Care Team Providers Name Role Phone Unavailable Primary Care Provider Unavailable Reason for Referral Radiation Therapy (Routine) - Canceled Specialty Diagnoses / Procedures Referred By Contact Refer red To Contact Diagnoses Malignant Neoplasm Of Supraglottic (HCC) Ursula Aguirre M.D. [facility] Procedures Management Visit [address] [place], [place] [phone] Referral ID Status Reason Start Date Expiration Date Visits V isits Requested Authorized [id number] Canceled 04/09/2019 04/08/2020 10 10 Reason for Visit Radiation Therapy (Routine) - Canceled Specialty Diagnoses / Procedures Referred By Contact Refer red To Contact Diagnoses Malignant Neoplasm Of Supraglottic (HCC) Ursula Aguirre M.D. [facility] Region Procedures Management Visit [address] [place] [phone] Referral ID Status Reason Start Date Expiration Date Visits V isits Requested Authorized [id number] Canceled 04/09/2019 04/08/2020 10 10 Encounter Details Date Type Department Care Team Description 04/27/2019 Hospital Encounter Department of Chucky Menchaca Neoplasm Of Radiation Oncology Kimberley Crabtree Supraglottic (HCC) in [place] [address] [address] [place], [place] [address] [facility] [address] [place], [place] [phone] (Work) [phone] Social History Tobacco Use Types Packs/Day Years [...] do you attend moravian or Never 2018 rastafari services? Do you [...] Sign Reading Time Taken Comments Blood Pressure 126/69 04/27/2019 11:57 AM CDT Pulse 81 04/27/2019 11:57 AM CDT Temperature 35.8 ??C (96.4 ??F) 04/27/2019 11:57 AM CDT Respiratory Rate - - Oxygen Saturation - - Inhaled Oxygen Concentration - - Weight 82.4 kg (181 lb 10.5 oz) 04/27/2019 11:57 AM CDT Height - - Body Mass Index 29.62 04/18/2019 8:26 AM CDT documented in this encounter Medications at Time of Discharge Medication Sig Dispensed Refills Start Date End Date aspirin 81 mg chewable Chew 81 mg every 0 tablet evening. [employer] Aspirin diaper,brief,adult,disposab Bag: (36 each) 36 each [...] documented as of this encounter Progress Notes Chucky Menchaca M.D. - 04/27/2019 1:35 PM CDT SUBJECTIVE REASON FOR VISIT Evaluation for side effects while receiving radiation treatment for 1. Malignant Neoplasm Of Supraglottic (HCC) SUPERVISED BY: Dr. 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 ??She??has received 29??of 35??fractions for a dose of??5800??cGy out of a planned total dose of 7000??cGy. ??Her??anticipated date of completion is May 04, 2019. She is receiving altered fractionation treatment with twice a day treatment once weekly. ??She will not be receiving concurrent chemotherapy.?? She had PEG tube placement on April 17, 2019 due to acute weight loss. The patient was seen and examined today with Dr. Menchaca. The patient reports doing well overall. She rates her sore throat pain at a 3 out of 10. She does not have Fentanyl patch on as she feels her pain is well controlled with minimal use of Hydrocodone-Tylenol as needed. She stopped taking liquid Ibuprofen as she vomited once this week soon after taking this on an empty stomach. She is taking anywhere from 1-5 cans of Nutren 1.5 a day through her PEG tube. She is drinking water by mouth. She denies fevers or chills. [place] butter is being applied to the treatment field area. She denies any other questions or concerns today. PATIENT REPORTED SYMPTOM SCREEN FATIGUE (Scale: 0 = no fatigue; 10 = worst fatigue you can imagine): 7 ?? PAIN (Scale: 0 = no pain; 10 = worst pain you can imagine): 3 ?? OVERALL QUALITY OF LIFE (Scale: 0 = as bad as can be; 10 = as good as can be): OBJECTIVE BP 126/69 (BP Location: Left arm, Patient Position: Sitting, Cuff Size: Regular) Pulse 81 Temp (!) 35.8 ??C (Temporal) Wt 82.4 kg BMI 29.62 kg/m? PHYSICAL EXAM General: Alert and oriented in no apparent distress. Skin: Moderate erythema and dryness to the superior neck down. Abdomen: small area of pink toned skin to the right side of PEG tube insertion site. No warmth, odoror foul discharge noted to this area. ENT: no signs of infection or mucositis noted with in the oral cavity. ASSESSMENT / PLAN 1.?Stage II cT2 N0 [...] goal rate of 5 cans a day. I discussed with patient of working to get in a total of 5 cans of Nutren 1.5 a day to prevent further weight loss. I confirmed with patient that she is completing site care appropriately to PEG insertion site daily. She will meet with our dietitian again next . She has hydrocodone-acetaminophen solution available if needed for breakthrough pain. She is to switch to using Aquaphor 3-4 times a day to the treatment field area due to increase erythema and dryness. She will contact us with any questions or concerns. We will continue with radiation treatment as planned. Signed by: Jannet Cross R.N. 04/27/2019 I personally met with the patient and agree with the evaluation documented by Jannet Cross RN. On examination, the patient appears in no distress. The gastrostomy tube site has mild erythema. No definite cellulitis. Chucky Menchaca MD [facility]iation Therapy [place], [place] documented in this encounter Plan of Treatment Upcoming Encounters Date Type Specialty Care Team Description 04/22/2022 Clinical Admitting/Central Communication Scheduling 04/26/2022 Appointment Radiology Mark Eastman M.D., M.S. [address] [place] [phone] 04/26/2022 Office Visit Otorhinolaryngology Roxanne Lanza APRN, C.N.P. [address] [place] [phone] 04/28/2022 Appointment Radiation Oncology Ursula Aguirre M.D. [address] [place] [phone] Scheduled Orders Name Type Priority Associated Diagnoses Order S chedule Management Visit Radiation Oncology Routine Malignant Neoplasm Of Once for 1 Supraglottic (HCC) Occurrenc es starting 04/27/2019 unti l 04/27/2019 documented as of this encounter Visit Diagnoses Diagnosis Malignant Neoplasm Of Supraglottic (HCC) documented in this encounter
--- OUTSIDE RECORDS SUMMARY | 2022-03-31 14:50 | XMS_ITS | Encounter Summary ---
:1955 Author Organization [facility] Address [address] [place] [address] Care Team Providers Name Role Phone Unavailable Primary Care Provider Unavailable Reason for Visit Radiation Therapy (Routine) - Closed Specialty Diagnoses / Procedures Referred By Contact Refer red To Contact Diagnoses Malignant Neoplasm Of Supraglottic (HCC) Ursula Aguirre M.D. [facility] Procedures Prior Auth Rad Tx [place] [facility] [address] [place] [phone] Referral ID Status Reason Start Date Expiration Date Visits Requ ested Visits Authorized [id number] Closed 03/15/2019 03/14/2020 35 35 Encounter Details Date Type Department Care Team Description 04/25/2019 Hospital Encounter Department of Radiation Bud Aguirre I., [place] [address] [facility] [address] [place] [phone] Social History Tobacco Use Types Packs/Day Years [...] do you attend religion or Never 2018 adventism services? Do you [...] Appointment Radiology Mark Eastman M.D., M.S. [address] [place] [phone] 04/26/2022 Office Visit Otorhinolaryngology Roxanne Lanza APRN, C.N.P. [address] [place] [phone] 04/28/2022 Appointment Radiation Oncology Ursula Aguirre M.D. [address] [place] [phone] documented as of this encounter Visit Diagnoses Not on filedocumented in this encounter
--- OUTSIDE RECORDS SUMMARY | 2022-03-31 14:50 | XMS_ITS | Encounter Summary ---
:1955 Author Organization [facility] Address [address] [place] [address] Care Team Providers Name Role Phone Unavailable Primary Care Provider Unavailable Encounter Details Date Type Department Care Team Description 04/23/2019 Hospital Encounter Department of [facility] Laboratory Medicine Lara José APRN, Nutri tion in [facility] [address] [facility] [address] [place] [address] [phone] Social History Tobacco Use Types Packs/Day Years [...] or relatives? How often do you attend restorationist or Never 2018 hoahaoism services? Do you belong to any clubs or No 02/21/2019 organizations such as restorationist groups, unions, fraternal or athletic groups, or [...] (twelve) hours. documented as of this encounter Miscellaneous Notes Result Encounter Note - Lara Castellanos APRN, C.N.P. - 04/23/2019 10:59 AM CDT Electrolytes stable. We do not need to continue monitoring labs for refeeding. Spoke with Darlin, Mrs. Narayan's daughter in law. Mrs. Narayan has been taking 2 to 3 cans of formula daily. She is tolerating the formula well, but per Darlin, appears to lack motivation to take the time needed for increasing formula (goal is 5 cans daily). We discussed ways to encourage her on the benefits of increased calories. Her weight remains stable. She continues to eat small amounts. I advised Darlin to continue monitoring weights and contact our HEN team for any weight loss, or if any help needed from us. documented in this encounter Plan of Treatment Upcoming Encounters Date Type Specialty Care Team Description 04/22/2022 Clinical Admitting/Central Communication Scheduling 04/26/2022 Appointment Radiology Mark Eastman M.D., M.S. [address] [place] [phone] 04/26/2022 Office Visit Otorhinolaryngology Roxanne Lanza APRN, C.N.P. [address] [place] [phone] 04/28/2022 Appointment Radiation Oncology Ursula Aguirre M.D. [address] [place] [phone] documented as of this encounter Procedures Procedure Name Priority Date/Time Associated Comments Diagnosis POTASSIUM, S/P Routine 04/23/2019 9:42 AM Home Enteral Results for this CDT Nutrition procedure are i n the results section. PHOSPHORUS Routine 04/23/2019 9:42 AM Home Enteral Results f or this (INORGANIC), S CDT Nutrition procedure are in the results section. MAGNESIUM, S Routine 04/23/2019 9:42 AM Home Enteral Results f or this CDT Nutrition procedure are i n the results section. documented in this encounter Results Potassium (04/23/2019 9:42 AM CDT) athologist Signature Potassium, S 4.9 3.6 - 5.2 04/23/2019 mmol/L 1:58 PM CDT Specimen Anatomical Collection Method Collection Time Receive d Time (Source) Location / / Volume Laterality Blood (Blood, 04/23/2019 9:42 AM 04/23/20 19 1:12 Venous) CDT PM CDT Lara Castellanos APRN, C.N.P. LAB BLOOD ADD-ON Performing Organization Address City/State/ZIP Code Phon e Number [facility] [address] [place] [address] LAB Phosphorus Inorganic (04/23/2019 9:42 AM CDT) athologist Signature Phosphorus 3.2 2.5 - 4.5 04/23/2019 (Inorganic), S mg/dL 4:17 PM CDT Specimen Anatomical Collection Method Collection Time Receive d Time (Source) Location / / Volume Laterality Blood (Blood, 04/23/2019 9:42 AM 04/23/20 19 4:04 Venous) CDT PM CDT Lara Castellanos APRN, Estefanía.N.P. LAB BLOOD ADD-ON Performing Organization Address City/State/ZIP Code Phon e Number [facility] [address] [place] [address] [place] [facility] Magnesium (04/23/2019 9:42 AM CDT) athologist Signature Magnesium, S 2.0 1.7 - 2.3 04/23/2019 mg/dL 1:58 PM CDT Specimen Anatomical Collection Method Collection Time Receive d Time (Source) Location / / Volume Laterality Blood (Blood, 04/23/2019 9:42 AM 04/23/20 19 1:12 Venous) CDT PM CDT Estefanía Patel APRN.N.P. LAB BLOOD ADD-ON Performing Organization Address City/State/ZIP Code Phon e Number [facility] [address] [place] [address] LAB documented in this encounter Visit Diagnoses Diagnosis Home Enteral Nutrition documented in this encounter
--- OUTSIDE RECORDS SUMMARY | 2022-03-31 14:50 | XMS_ITS | Encounter Summary ---
:1955 Author Organization [facility] Address [address] [place] [address] Care Team Providers Name Role Phone Unavailable Primary Care Provider Unavailable Reason for Visit Radiation Therapy (Routine) - Closed Specialty Diagnoses / Procedures Referred By Contact Refer red To Contact Diagnoses Malignant Neoplasm Of Supraglottic (HCC) Ursula Aguirre M.D. [facility] Procedures Prior Auth Rad Tx [place] IMRT COMPLEX [address] [place] [phone] Referral ID Status Reason Start Date Expiration Date Visits Requ ested Visits Authorized [id number] Closed 03/15/2019 03/14/2020 35 35 Encounter Details Date Type Department Care Team Description 05/01/2019 Hospital Encounter Department of Radiation Bud Aguirre I., [place]cology [place] [address] [facility] [address] [place] [phone] [phone] Social History Tobacco Use Types Packs/Day Years [...] or relatives? How often do you attend judaism or Never 2018 congregational services? Do you belong to any clubs or No 02/21/2019 organizations such as judaism groups, unions, fraternal or athletic groups, or [...] Radiology Mark Eastman M.D., M.S. [address] [place] [phone] 04/26/2022 Office Visit Otorhinolaryngology Roxanne Lanza APRN, C.N.P. [address] [place] [phone] 04/28/2022 Appointment Radiation Oncology Ursula Aguirre M.D. [address] [place] [phone] documented as of this encounter Visit Diagnoses Not on filedocumented in this encounter
--- OUTSIDE RECORDS SUMMARY | 2022-03-31 14:50 | XMS_ITS | Encounter Summary ---
:1955 Author Organization [facility] Address [address] [place] [address] Care Team Providers Name Role Phone Unavailable Primary Care Provider Unavailable Reason for Visit Radiation Therapy (Routine) - Closed Specialty Diagnoses / Procedures Referred By Contact Refer red To Contact Diagnoses Malignant Neoplasm Of Supraglottic (HCC) Ursula Aguirre M.D. [facility] Procedures Prior Auth Rad Tx [place] IMRT COMPLEX [address] [place] [phone] Referral ID Status Reason Start Date Expiration Date Visits Requ ested Visits Authorized [id number] Closed 03/15/2019 03/14/2020 35 35 Encounter Details Date Type Department Care Team Description 04/26/2019 Hospital Encounter Department of Radiation Bud Aguirre I., Oncology in [place] [address] [facility] [address] [place] [phone] Social History Tobacco Use Types Packs/Day Years [...] do you attend islam or Never 2018 congregation services? Do you [...] Radiology Mark Eastman M.D., M.S. [address] [place] [phone] 04/26/2022 Office Visit Otorhinolaryngology Roxanne Lanza APRN, C.N.P. [address] [place] [phone] 04/28/2022 Appointment Radiation Oncology Ursula Aguirre M.D. [address] [place] [phone] documented as of this encounter Visit Diagnoses Not on filedocumented in this encounter
--- OUTSIDE RECORDS SUMMARY | 2022-03-31 14:50 | XMS_ITS | Encounter Summary ---
:1955 Author Organization [facility] Address [address] [place] [address] Care Team Providers Name Role Phone Unavailable Primary Care Provider Unavailable Reason for Visit Radiation Therapy (Routine) - Closed Specialty Diagnoses / Procedures Referred By Contact Refer red To Contact Diagnoses Malignant Neoplasm Of Supraglottic (HCC) Ursula Aguirre M.D. [facility] Procedures Prior Auth Rad Tx [place] IMRT COMPLEX [address] [place] [phone] Referral ID Status Reason Start Date Expiration Date Visits Requ ested Visits Authorized [id number] Closed 03/15/2019 03/14/2020 35 35 Encounter Details Date Type Department Care Team Description 04/30/2019 Hospital Encounter Department of Radiation Bud Aguirre I., [place]cology in [place] [address] [facility] [address] [place] [phone] Social History Tobacco Use Types Packs/Day Years [...] do you attend spiritism or Never 2018 rastafari services? Do you [...] Radiology Mark Eastman M.D., M.S. [address] [place] [phone] 04/26/2022 Office Visit Otorhinolaryngology Roxanne Lanza APRN, C.N.P. [address] [place] [phone] 04/28/2022 Appointment Radiation Oncology Ursula Aguirre M.D. [address] [place] [phone] documented as of this encounter Visit Diagnoses Not on filedocumented in this encounter
--- OUTSIDE RECORDS SUMMARY | 2022-03-31 14:50 | XMS_ITS | Encounter Summary ---
:1955 Author Organization [facility] Address [address] [place] [address] Care Team Providers Name Role Phone Unavailable Primary Care Provider Unavailable Reason for Referral Outpatient (Routine) - Canceled Specialty Diagnoses / Procedures Referred By Contact Refer red To Contact Radiation Oncology Diagnoses Malignant Neoplasm Of Supraglottic (HCC) Ursula Aguirre [facility] [place] [facility] M.[facility]. 200 [place] [address] Referral ID Status Reason Start Date Expiration Date Visits V isits Requested Authorized [id number] Canceled 03/15/2019 03/14/2020 1 1 Reason for Visit Outpatient (Routine) - Canceled Specialty Diagnoses / Procedures Referred By Contact Refer red To Contact Radiation Oncology Diagnoses Malignant Neoplasm Of Supraglottic (HCC) Ursula Aguirre [facility] [place] [facility] M.D. 200 [place] [address] Referral ID Status Reason Start Date Expiration Date Visits V isits Requested Authorized [id number] Canceled 03/15/2019 03/14/2020 1 1 Encounter Details Date Type Department Care Team Description 04/30/2019 Hospital Encounter Department of Mary Aguirre M.D. [address] [place] [phone] Malignant Neoplasm Of Radiation Oncology Jannet Cross R.N. 200 [place] [phone] Supraglottic (HCC) in [place], [place] [address] [place] [address] Social History Tobacco Use Types Packs/Day Years [...] or relatives? How often do you attend gnosticist or Never 2018 hinduism services? Do you belong to any clubs or No 02/21/2019 organizations such as gnosticist groups, unions, fraternal or athletic groups, or [...] - Inhaled Oxygen Concentration - - Weight 82.5 kg (181 lb 14.1 oz) 04/30/2019 3:25 PM CDT Height - - Body Mass Index 29.65 04/18/2019 8:26 AM CDT documented in this encounter Medications at Time of Discharge Medication Sig Dispensed Refills Start Date End Date aspirin 81 mg chewable Chew 81 mg every 0 tablet evening. NanoPack Aspirin diaper,brief,adult,disposab Bag: (36 each) 36 each [...] encounter Progress Notes Jannet Cross R.N. - 04/30/2019 11:30 AM CDT SUBJECTIVE REASON FOR VISIT Evaluation for side effects while receiving radiation treatment for 1. 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 ??She??has received 30??of 35??fractions for a dose of??6000??cGy out of a planned total dose of 7000??cGy. ??Her??anticipated date of completion is May 04, 2019. She is receiving altered fractionation treatment with twice a day treatment once weekly. ??She will not be receiving concurrent chemotherapy.?? She had PEG tube placement on April 17, 2019 due to acute weight loss. Patient requested nurse visit to reassess PEG tube site for infection. Patient denies fevers or chills or other new concerns. OBJECTIVE There were no vitals taken for this visit. ?? PHYSICAL EXAM General: Alert and oriented in no apparent distress. Abdomen: small area of red toned skin to the right side of PEG tube insertion site. No warmth, odor or foul discharge noted to this area. Small amount of serous drainage noted from tube site. ASSESSMENT / PLAN The patient is tolerating radiation treatment well overall. I reviewed with patient and her son thatthey are to monitor for fevers, chills, foul odor, warmth and or increase in redness as these are all signs of potential infection. I reviewed PEG site cares with patient and son today including washing with mild soap and water daily and pat drying. Patient is to notify me if erythema increases or anyother changes to the PEG site. We will continue to closely monitor. She will contact us with any questions or concerns. We will continue with radiation treatment as planned. Signed by: Jannet Cross R.N. 04/30/2019 documented in this encounter Miscellaneous Notes Addendum Note - Jannet Cross R.N. - 04/30/2019 11:30 AM CDT Encounter addended by: Jannet Cross R.N. on: 04/30/2019 3:25 PM Actions taken: Vitals modified documented in this encounter Plan of Treatment Upcoming Encounters Date Type Specialty Care Team Description 04/22/2022 Clinical Admitting/Central Communication Scheduling 04/26/2022 Appointment Radiology Mark Eastman M.D., M.S. [address] [place] [phone] 04/26/2022 Office Visit Otorhinolaryngology Roxanne Lanza APRN, C.N.P. [address] [place] [phone] 04/28/2022 Appointment Radiation Oncology Ursula Aguirre M.D. [address] [place] [phone] Scheduled Referrals Name Type Priority Associated Diagnoses Order S chedule Radiation Oncology Outpatient Referral Routine Malignant Neopl asm Once for 1 nurse visit Of Supraglottic Occurrences (clinic) (HCC) starting 2018 until 9 documented as of this encounter Visit Diagnoses Diagnosis Malignant Neoplasm Of Supraglottic (HCC) documented in this encounter
--- OUTSIDE RECORDS SUMMARY | 2022-03-31 14:50 | XMS_ITS | Encounter Summary ---
:1955 Author Organization [facility] Address [address] [place] [address] Care Team Providers Name Role Phone Unavailable Primary Care Provider Unavailable Encounter Details Date Type Department Care Team Description 04/26/2019 Clinical Communication Department of Radiation Kareem Pérez, Oncology in [place], PMassiel, M.S. [address] [place] [phone] Social History Tobacco Use Types Packs/Day Years [...] or relatives? How often do you attend roman catholic or Never 2018 restorationist services? Do you belong to any clubs or No 02/21/2019 organizations such as roman catholic groups, unions, fraternal or athletic groups, [...] Encounter - Summer Pérez P.A.-C., M.S. - 04/26/2019 11:03 AM CDT The patient was seen today in the clinic after her nutrition visit. She had increased coughing last night and was not able to get much sleep. The coughing also causes increased irritation in her throat. She is using a fentanyl 12 mcg patch and taking liquid ibuprofen only once per day as it upsets herstomach. She had previously had benefit from taking liquid hydrocodone-acetaminophen for the throat discomfort as well as the cough. She did not have benefit with taking Mucinex. I provided her with a printed prescription refill today to take hydrocodone-acetaminophen 10-15 mL in the evening to help with her cough. Side effects of the medication were discussed. Maximum dosages of ibuprofen and acetaminophen per day were reviewed. This information was all discussed in detail today. Summer Pérez P.A.-C. documented in this encounter Plan of Treatment Upcoming Encounters Date Type Specialty Care Team Description 04/22/2022 Clinical Admitting/Central Communication Scheduling 04/26/2022 Appointment Radiology Mark Eastman M.D., M.S. [address] [place] [phone] 04/26/2022 Office Visit Otorhinolaryngology Roxanne Lanza, RV SERVICER, C.N.P. [address] [place] [phone] 04/28/2022 Appointment Radiation Oncology Ursula Aguirre M.D. [address] [place] [phone] documented as of this encounter Visit Diagnoses Not on filedocumented in this encounter
--- OUTSIDE RECORDS SUMMARY | 2022-03-31 14:51 | XMS_ITS | Encounter Summary ---
:1955 Author Organization [facility] Address [address] [place] [address] Care Team Providers Name Role Phone Unavailable Primary Care Provider Unavailable Reason for Visit Reason Onset Date Comments Feeding Tube 04/20/2019 Encounter Details Date Type Department Care Team Description 04/20/2019 Clinical Communication Division of Padma Vieira Feeding Tube Endocrinology in [place], AMAYA, C.N.P.[facility] [address] [place] [address] [place] [phone] Social History Tobacco Use Types Packs/Day Years [...] do you attend temple or Never 2018 jew services? Do you [...] this encounter Miscellaneous Notes Telephone Encounter - Dolores Lucio R.N. - 04/20/2019 2:32 PM CDT SUBJECTIVE CHIEF COMPLAINT / REASON FOR CALL Feeding Tube Patient is requesting the following information: Darlin called to let me know that the t-fastener at 0900 had fallen off. This is the one that was snug on the abdominal wall. The other two are still in place. Now that t-fastener is gone, she states Obdulia's pain is much better. PLAN The following information was provided: Thanked her for letting us know. As long as the other two are in place, patient is good. Nothing further needed at this time. Education: patient/caller able to teach back The following references were used: nursing clinical judgement Telephone Encounter - Jose L Garg - 04/20/2019 1:13 PM CDT Good afternoon Mrs. Narayan called to let you know that her tube has had one of the fasteners break.She said it was the one that Dolores said looked a little tight. Please let us at the desk know or callthe patent with how you would like to proceeded or If anything needs to be done additionally. Thank you and have a nice afternoon. documented in this encounter Plan of Treatment Upcoming Encounters Date Type Specialty Care Team Description 04/22/2022 Clinical Admitting/Central Communication Scheduling 04/26/2022 Appointment Radiology Mark Eastman M.D., M.S. [address] [place] [phone] 04/26/2022 Office Visit Otorhinolaryngology Roxanne Lanza, MILL WORKER, C.N.P. [address] [place] [phone] 04/28/2022 Appointment Radiation Oncology Ursula Aguirre M.D. [address] [place] [phone] documented as of this encounter Visit Diagnoses Not on filedocumented in this encounter
--- OUTSIDE RECORDS SUMMARY | 2022-03-31 14:51 | XMS_ITS | Encounter Summary ---
:1955 Author Organization [facility] Address [address] [place] [address] Care Team Providers Name Role Phone Unavailable Primary Care Provider Unavailable Reason for Visit Radiation Therapy (Routine) - Closed Specialty Diagnoses / Procedures Referred By Contact Refer red To Contact Diagnoses Malignant Neoplasm Of Supraglottic (HCC) Ursula Aguirre M.D. [facility] Procedures Prior Auth Rad Tx [place] IMRT COMPLEX [address] [place] [phone] Referral ID Status Reason Start Date Expiration Date Visits Requ ested Visits Authorized [id number] Closed 03/15/2019 03/14/2020 35 35 Encounter Details Date Type Department Care Team Description 04/19/2019 Hospital Encounter Department of Radiation Bud Aguirre I., [place]cology in [place] [address] [facility] [address] [place] [phone] Social History Tobacco Use Types Packs/Day Years [...] or relatives? How often do you attend tenriism or Never 2018 yazdanism services? Do you belong to any clubs or No 02/21/2019 organizations such as tenriism groups, unions, fraternal or athletic groups, or [...] Appointment Radiology Mark Eastman M.D., M.S. [address] [place] [phone] 04/26/2022 Office Visit Otorhinolaryngology Roxanne Lanza APRN, C.N.P. [address] [place] [phone] 04/28/2022 Appointment Radiation Oncology Ursula Aguirre M.D. [address] [place] [phone] documented as of this encounter Visit Diagnoses Not on filedocumented in this encounter
--- OUTSIDE RECORDS SUMMARY | 2022-03-31 14:51 | XMS_ITS | Encounter Summary ---
:1955 Author Organization [facility] Address [address] [place] [address] Care Team Providers Name Role Phone Unavailable Primary Care Provider Unavailable Reason for Visit Radiation Therapy (Routine) - Closed Specialty Diagnoses / Procedures Referred By Contact Refer red To Contact Diagnoses Malignant Neoplasm Of Supraglottic (HCC) Ursula Aguirre M.D. [facility] Procedures Prior Auth Rad Tx [place] IMRT COMPLEX [address] [place] [phone] Referral ID Status Reason Start Date Expiration Date Visits Requ ested Visits Authorized [id number] Closed 03/15/2019 03/14/2020 35 35 Encounter Details Date Type Department Care Team Description 04/19/2019 Hospital Encounter Department of Radiation Bud Aguirre I., [place] [address] [facility] [address] [place] [phone] Social History Tobacco Use Types Packs/Day Years [...] do you attend yarsani or Never 2018 methodist services? Do you [...] Appointment Radiology Mark Eastman M.D., M.S. [address] [place] [phone] 04/26/2022 Office Visit Otorhinolaryngology Roxanne Lanza APRN, C.N.P. [address] [place] [phone] 04/28/2022 Appointment Radiation Oncology Ursula Aguirre M.D. [address] [place] [phone] documented as of this encounter Visit Diagnoses Not on filedocumented in this encounter
--- OUTSIDE RECORDS SUMMARY | 2022-03-31 14:51 | XMS_ITS | Encounter Summary ---
:1955 Author Organization [facility] Address [address] [place] [address] Care Team Providers Name Role Phone Unavailable Primary Care Provider Unavailable Encounter Details Date Type Department Care Team Description 04/17/2019 Ancillary Procedure Department of Gastroenterology Social History Tobacco Use Types Packs/Day Years [...] do you attend spiritism or Never 2018 anglican services? Do you [...] minutes do you engage in exercise at [facility] 0 min 02/21/2019 level? Stress Answer Date [...] Appointment Radiology Mark Eastman M.D., M.S. [address] [place] [phone] 04/26/2022 Office Visit Otorhinolaryngology Roxanne Lanza APRN, C.N.P. [address] [place] [phone] 04/28/2022 Appointment Radiation Oncology Ursula Aguirre M.D. [address] [place] [phone] documented as of this encounter Procedures Procedure Name Priority Date/Time Associated Comments Diagnosis GASTROENTEROLOGY IMAGE Routine 04/17/2019 3:35 Re sults for this EXAM PM CDT procedure are i n the results section. documented in this encounter Results Upper GI endoscopy-Gastroenterology Image Exam (04/17/2019 3:35 PM CDT) Specimen (Source) Anatomical Collection Method Collection Time Re ceived Time Location / / Volume Laterality 04/17/2019 3:32 PM CDT Narrative [facility] - 04/17/2019 5:06 PM CDT This order has been created [...]
--- OUTSIDE RECORDS SUMMARY | 2022-03-31 14:51 | XMS_ITS | Encounter Summary ---
:1955 Author Organization [facility] Address [address] [place] [phone] Care Team Providers Name Role Phone Unavailable Primary Care Provider Unavailable Reason for Referral Outpatient (Routine) - Closed Specialty Diagnoses / Procedures Referred By Contact Refer red To Contact Nutrition Diagnoses Malignant Neoplasm Of Supraglottic (HCC) Summer Pérez P.A.-C., [facility] [address] [place] [phone] Referral ID Status Reason Start Date Expiration Date Visits Requ ested Visits Authorized [id number] Closed 03/29/2019 03/28/2020 1 1 Reason for Visit Outpatient (Routine) - Closed Specialty Diagnoses / Procedures Referred By Contact Refer red To Contact Nutrition Diagnoses Malignant Neoplasm Of Supraglottic (HCC) [facility]., [facility] [address] [place] [phone] Referral ID Status Reason Start Date Expiration Date Visits Requ ested Visits Authorized [id number] Closed 03/29/2019 03/28/2020 1 1 Encounter Details Date Type Department Care Team Description 04/19/2019 Hospital Encounter Department of Summer Pérez P.A.-C., M.S. [address] [place] [phone] Malignant Neoplasm Of Radiation Oncology Ryanne Mcbride, JUANITO [address] [place] [address] Supraglottic (HCC) in [place], [place] [address] [place] [address] Social History Tobacco Use Types [...] do you attend druze or Never 2018 [employer] services? Do you [...] as of this encounter Progress Notes Ryanne Mcbride, JUANITO - 04/19/2019 8:39 AM CDT CHIEF COMPLAINT/REASON FOR VISIT Malignant Neoplasm Of Supraglottic (HCC) (C32.1)? HISTORY OF PRESENT ILLNESS Mrs. 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 Radiotherapy to the supraglottic tumor initiated on March 26, 2019; anticipated date of completion is May 04, 2019.? Met with patient, her son and 2 [id number]. Patient is hard of hearing and reads lips. For phone contact Merlin (son) states, his Darlin is the one to call, . ?? 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 ??She does not drink alcohol. ?? Medical Tests and Procedures/Biochemical Data Swallow evaluation on 03/28/19 showed mild dysphagia. With side-effects of treatment increased difficulty swallowing due to pain and gagging. ?? Nutrition Focused Physical Findings Mouth/throat/esophagus: dry Nausea/vomiting: none Bowels: constipated, using miralax ?? Tube Information Gastrostomy tube placed by GI 04/17/19 LEONARDO 20 [place] balloon gastrostomy, ENFit connector ?? Food/Nutrient Related History Water only by mouth at this time. Drinking 3-20 ounce glasses with ice.?? Weight History Usual body weight: 230# (104.5??kg) last year, per patient 03/16/19: 88.5 kg 03/28/19: 87.7 kg 04/04/19: 86.3 kg 04/11/19: 83.5 kg 04/12/19: 82.5 kg--5.8% loss from treatment start weight 04/18/19: 83.6 kg ?? Height: 167 cm ?? Estimation [...] intake. A feeding gastrostomy was placed 04/17/19. She reports having soreness from the procedure and is tired. She Tolerated 125 mL of Nutren 1.5 given over 10 minutes in [place] before discharge, and another 1/2 carton at home. Patient denies nausea or fullness. ?? NUTRITION DIAGNOSIS Inadequate oral intake (NI-2.1) related to side-effects of treatment as evidenced by weight loss anddiet history. Unintentional weight loss related to cancer as evidenced by??approximate 16.8??kg weight loss in thelast??year??prior to treatment??per patient report and 5.8% weight loss prior to tube feeding placement. Food- and nutrition-related knowledge deficit??related to Cancer with??radiation??therapy??as evidenced by need for nutrition education to maintain weight and nutrition status during treatment Nutrition Diagnosis Reassessment: Ongoing ?? Nutrition Prescription/Recommendation Formula Type: Nutren 1.5, 5 containers/day Administration Method: Intermittent gravity/syringe Infusion Schedule: 2-2-1 Water Flushes: 60 mL before and after each feeding, increase if not able to take about 3 cups water orally Additional Multivitamin: not needed, formula provides 100% ?? At goal, this will provide a total of: 1875 calories/day, 85 g protein/day and 1250 mL of fluid/day Water flushes of 60 mL before and after each feeding will provide 360 mL with infusion as above. Goal of at least 1250 mL by flushes or mouth to meet estimated fluid needs. ?? Oral Program: as tolerated ?? INTERVENTION Reviewed progression to 5 cartons Nutren 1.5 a day. Current plan is 2-2-1. Patient and family aware the infusion schedule can be adjusted based on tolerance/preference. Reviewed benefit of fluids by mouth as able and tolerated. ?? Care Coordination Authorization on file to speak with DME/Infusion Company: yes DME/Infusion Company that will provide needed supplies for home: [employer] . They delivered supplies 04/18/19. ?? Indication for Ongoing Enteral Nutrition Home Enteral Nutrition, dysphagia, suqpaglottic squamous cell carcinoma. Anticipated duration of tube feedings is 12 months. This is the sole source of nutrition. ?? MONITORING AND EVALUATION Nutrition parameter to monitor: Weight Desired Outcome: Prevent further weight loss Patient Goal(s): 1. Begin tube feeds at 1/2 carton a feeding advancing with tolerance with goal of 5 containers of Nutren 1.5 a day, continue oral intake as tolerated ?? Follow-up Plan Follow up visit 1 week. ?? Time spent with patient (minutes): 15 documented in this encounter Plan of Treatment Upcoming Encounters Date Type Specialty Care Team Description 04/22/2022 Clinical Admitting/Central Communication Scheduling 04/26/2022 Appointment Radiology Mark Eastman M.D., M.S. [address] [place] [address] 04/26/2022 Office Visit Otorhinolaryngology Roxanne Lanza, TRAVEL OCCUPATIONAL THERAPIST, C.N.P. [address] [place] [phone] 04/28/2022 Appointment Radiation Oncology Ursula Aguirre M.D. [address] [place] [address] Scheduled Referrals Name Type Priority Associated Diagnoses Order S chedule Nutrition - Outpatient Referral Routine Malignant Neoplasm On ce for 1 Medical nutrition Of Supraglottic Occurre nces therapy consult (HCC) starting 12/2018 (clinic) until 9 documented as of this encounter Visit Diagnoses Diagnosis Malignant Neoplasm Of Supraglottic (HCC) documented in this encounter
--- OUTSIDE RECORDS SUMMARY | 2022-03-31 14:51 | XMS_ITS | Encounter Summary ---
:1955 Author Organization [facility] Address [address] [place] [address] Care Team Providers Name Role Phone Unavailable Primary Care Provider Unavailable Encounter Details Date Type Department Care Team Description 04/17/2019 Documentation Division of Gastroenterology Lorenza Henderson, in [facility] guillaume Duff [address] [facility] [phone] [place] [address] (Work) [phone] Social History Tobacco Use Types Packs/Day Years [...] or relatives? How often do you attend voodoo or Never 2018 hindu services? Do you belong to any clubs or No 02/21/2019 organizations such as voodoo groups, unions, fraternal or athletic groups, or [...] documented as of this encounter Progress Notes Nasima Henderson RNhung. - 04/17/2019 5:31 PM CDT Procedure note charted. documented in this encounter Nursing Notes Nasima Henderson R.N. - 04/17/2019 5:31 PM CDT PEG/PEJ Nursing Procedure Note ASSESSMENT / PLAN Patient Name: Obdulia Narayan Department : DIVISION OF GASTROENTEROLOGY IN [place], [place] SUBJECTIVE Past Medical History: Diagnosis Date ??? Arthritis ??? Chronic Obstructive Pulmonary Disease (HCC) ??? Diabetes Mellitus NOS ??? Dysphagia ??? Gastroesophageal Reflux Disease NOS ??? Hyperlipidemia ??? Hypertension NOS ??? Malignant Neoplasm Of Supraglottic (HCC) Past [...] Financial resource strain: Somewhat hard ??? Food insecurity: Worry: Never true Inability: Never true ??? Transportation needs: Medical: No Non-medical: No Tobacco Use ??? Smoking status: Former Smoker Last attempt to quit: 03/13/2019 Years since quittin.0 ??? Smokeless tobacco: Never Used Substance and Sexual Activity ??? Alcohol use: Not on file ??? Drug use: Never ??? Sexual activity: Defer Lifestyle ??? Physical activity: Days per week: 0 days Minutes per session: 0 min ??? Stress: To some extent Relationships ??? Social connections: Talks on phone: More than three times a week Gets together: Once a week Attends hindu service: Never Active member of club or organization: No Attends meetings of clubs or organizations: Never Relationship status: ??? Intimate partner violence: Fear of current or ex partner: Not on file Emotionally abused: Not on file Physically abused: Not on file Forced sexual activity: Not on file Other Topics Concern ??? Not on file Social History Narrative ??? Not on file OBJECTIVE Procedure Patient [facility] to [facility] 6 Patient being seen for: PEG ([employer]ique) Type of procedure: Initial Location of tube: Stomach Brand of tube: Other (Avanos) Reference number: [id number] Size of Tube: 20 Top of skin disc level: 3.5 Internal Retention Device: Balloon Balloon volume in mL: 10 T Fasteners: Present How many T Fasteners: 3 Skin integrity of site: Normal/intact Dressing: Split Gauze 4x4 and Foam tape Complications: None Did tube need to be re-labeled: No Verification of tube done by: Direct Visualization After Visit Information Recommendations for after procedure: Follow nursing guideline PEG/PEJ Tube Site Care and Tube Replacement, Home Enteral Nutrition Clinic, Follow instructions page 6-12 in PEG/PEJ booklet for post tube placement activity, pain control, site care, Contact number is in wallet card and PEG/PEJ booklet forany questions or concers related to tube, Once dressing is removed secure tube to abdomen with se pro net for Flexi-Trak and Check skin disc in first 24 hours after placement Return appointment timeframe: 3-5 months Tube is used for: Feeding When may you use tube: May use tube after [facility] Appt Tube placed to gravity: No Patient Education Learning needs assessment. Who is being assessed: Family Any barriers to learning: None Learning preference: Doing, Listening, Reading and Seeing Education: PEG/PEJ Wallet Card ([id number]) Supplies sent with patient: None T Fasteners located at 0900, 1000, and 1600. Skin disc kept slightly tighter than normal per Dr. Dodd. documented in this encounter Plan of Treatment Upcoming Encounters Date Type Specialty Care Team Description 04/22/2022 Clinical Admitting/Central Communication Scheduling 04/26/2022 Appointment Radiology Mark Eastman M.D., M.S. [address] [place] [phone] 04/26/2022 Office Visit Otorhinolaryngology Roxanne Lanza, REFINERY OPERATOR [employer], C.N.P. [address] [place] [phone] 04/28/2022 Appointment Radiation Oncology Ursula Aguirre M.D. [address] [place] [phone] documented as of this encounter Visit Diagnoses Not on filedocumented in this encounter
--- OUTSIDE RECORDS SUMMARY | 2022-03-31 14:51 | XMS_ITS | Encounter Summary ---
:1955 Author Organization [facility] Address [address] [place] [address] Care Team Providers Name Role Phone Unavailable Primary Care Provider Unavailable Reason for Visit Auth/Cert Specialty Diagnoses / Procedures Referred By Contact Refer red To Contact Diagnoses Malignant Neoplasm Of Supraglottic (HCC) Procedures EGD ? PERCUTANEOUS ENDOSCOPIC GASTROSTOMY/JEJUNOSTOMY Referral ID Status Reason Start Date Expiration Date Visits Requ ested Visits Authorized [id number] 1 1 Encounter Details Date Type Department Care Team Description 04/17/2019 Anesthesia Event Division of Gastroenterology Anisa Woods in [facility] guillaume Serna, ELECTRICAL WORKER, WEB PRESSMAN, [address] [place], [place] [address] [address] [facility] [phone] [place] [phone] Anesthesia Record Procedure Summary Procedure Name Responsible Anesthesia Start Anesthesia Stop Anesthesiologist Time Time EGD ? Anisa Woods APRN, 04/17/19 1558 04/17/19 1742 PERCUTANEOUS WEB PRESSMAN, [facility] ENDOSCOPIC GASTROSTOMY/JEJUNOSTOM Y Events Date Time Event Comment 04/17/2019 1558 In Room 1558 An Start Machine/Equipmen t Checked Infection Precautions Foll owed Procedure/Site Verified NPO Sta tus Verified Supine Standard ASA Mon itors Applied 1607 An Induction 1618 An Intubation 1618 an samuel now 1620 Turnover to Proceduralist 1626 Proc Start 1654 Proc Fin 1655 Turnover to ANE Staff 1716 Airway Removal Criteria Met 1716 Extubation/Airway Removed 1725 an stop data 1725 Out of Room 1742 An End I completed my h andoff to the receiving staff during [employer] we 1. Identified the patient 2. Ident ified the responsible provider 3. Revi ewed the pertinent medical history 4. Discussed the surgical course 5. Review ed intra-op anesthesia management and i ssues during anesthesia 6. Set expectati ons for post-procedure period 7. Allowe d opportunity for questions and ac knowledgement of understanding. Name Total propofol 10 mg/mL 130 mg propofol 10 mg/mL infusion 463.43 mg phenylephrine 100 mcg/mL injection 200 mcg ondansetron 4 mg/2 mL injection 4 mg glycopyrrolate 0.2 mg/mL injection 0.4 mg remifentanil 20 mcg/mL in NaCl 0.9% 100 mL infusion (U LTIVA) 0.45 mg remifentanil 1 mg injection 50 mcg esmolol 10 mg/mL injection 10 mg lidocaine PF 2% injection 17 mL vancomycin 1000 mg in NaCl 0.9% 250 mL (VANCOCIN) IVPB 1,000 mg droperidol 2.5 mg/mL injection 0.625 mg Lactated Ringers Free Drip 700 mL Agents No agents on file. Blood No blood administrations on file. Lines, Drains, and Airways Type Details Placement Removal NG/OG Tube 04/17/19; Gastrostomy 04/17/19 0000 by 08/02/19 1429 by (balloon PEG); 20 Fr; 4 Alisson Abraham I., ToddNChucho Musa, cm; Quadrant (abdomen), R.N. Center, Upper; Small bore (ENFit??); 08/02/19; 1429 Peripheral IV Placement Date: 04/17/19; 04/17/19 1514 by 04/17 182 by Placement Time: 1513; Jaden Kelley, R.N. W Summer valdez, R.N. Catheter Size: 20 G; Orientation: Right; Location: Hand; Site Prep: Alcohol; Technique: Anatomical landmarks; Inserted by: RN; Insertion Attempts: 1; Removal Date: 04/17/19; Removal Time: 1819 ETT Placement Date: 04/17/19; 04/17/19 161 by Ruby nelson 04/17/19 1716 by Placement Time: 8 Kimberley Bruce, Dm Serna, (created via procedure ELECTRICAL WORKERLEON A, MNA documentation); Mask Ventilation: Not attempted; Type: Standard ETT; Cuffed: Yes; Location: Oral; Removal Date: 04/17/19; Removal Time: 1716 documented in this encounter Social History Tobacco [...] or relatives? How often do you attend presybeterian or Never 2018 presybeterian services? 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 Please reference Vitals flowsheet for most recent vital signs. Anesthesia Post Evaluation Patient Disposition: dismissal Cardiovascular status: hemodynamics (HR & BP) acceptable Respiratory status: patent airway with spontaneous effort Temperature: normothermic Oxygen requirements: nasal cannula Level of consciousness: awake Pain score: pain adequately controlled and/or at baseline Post Op nausea/vomiting: none Hydration status: euvolemic Anesthesia Procedure Notes - Anisa Woods APRN, CRNA - 04/17/2019 4:25 PM CDTAssociated Order(s): Airway Airway Date/Time: 04/17/2019 4:18 PM Performed by: Shaila Chen M.D. 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 Worsening dysphonia over past 2 weeks during ongoing radiation treatment. AFOI with 2% lido, angelica. Airway tissue edematous, intermittent obstruction of view of cords, but ultimately able to pass slimfiberoptic and 5.5 ett with single attempt. PROCEDURE DETAILS: Mask difficulty assessment: not attempted Final airway type: disposable fiber optic bronchoscope Laryngeal Manipulation: no Final airway difficulty of direct laryngoscopy (DL): 1-some difficulty Final best view of glottic structures - Cormack/Lehane Score: grade 2A ETT location: oral Adult ETT distance at teeth/gum: 22 Oral tube type: standard ETT Cuffed: yes Leak test performed: yes (Documented in Comment) Number of attempt to successful placement: 1 Airway confirmation: positive ETCO2, bilateral chest rise and fiber optic confirmation of tube placement/position Other previous techniques attempted: none PRE PROCEDURE DETAILS: Pre evaluation for airway management: procedure Urgency: elective Preop assessment of probable difficulty: questionable / suspicious difficult airway Preoxygenation: bag valve mask SEDATION / ANESTHESIA Anesthesia method: topical application Topical application type: lidocaine POST PROCEDURE DETAILS: Procedure outcome: successful Airway event: no complications Anesthesia Preprocedure Evaluation - Anisa Woods APRN, CRNA - 04/17/2019 3:50 PM CDT Preprocedure Anesthesia & H&P Assessment Procedure Summary Anesthesia Start Date/Time: 04/17/19 1558 Scheduled providers: Rachel Rocha APRN, CRNA, ALEXIA Procedure: EGD - PERCUTANEOUS ENDOSCOPIC GASTROSTOMY/JEJUNOSTOMY Diagnosis: Malignant Neoplasm Of Supraglottic (HCC) [C32.1] Malignant Neoplasm Of Supraglottic (HCC) [C32.1] Location: Division of Gastroenterology in [place], [place] Pertinent components of the patient's history including current problem list, medical history, surgical history, family history, social history, medications and allergies were reviewed. Present illnessand pre-op diagnosis were confirmed. The planned surgery / procedure was verified with the patient /legal guardian. The patient's general health condition remains unchanged PROBLEM LIST Relevant Problems ONC (+) Malignant Neoplasm Of Supraglottic (HCC) OBJECTIVE PHYSICAL EXAMINATION Airway (HEENT) Mallampati: III TM Distance: >3 FB Neck ROM: Full Mouth Opening: <3 cm Cardiovascular Rhythm: Regular Rate: Abnormal Cardiovascular Assessment: cardiovascular normal Pulmonary Pulmonary Assessment: Wheezing General / Constitutional General State of Health:: ill appearing Neurological Neurologic Assessment:??alert and alert and oriented x 3 Dental Dental Assessment: lower dentures and upper dentures ASSESSMENT / PLAN ANESTHESIA PLAN ASA: 3 Anesthesia Plan: general Patient seen and allergies reviewed, anesthesia plan and risks discussed directly with patient /legal guardian or through an privacy specialist.. Risks/Benefits/Alternatives of Blood transfusion discussed with patient / legal guardian, including an opportunity to ask questions and/or decline some or all transfusion therapies. The patient / legalguardian consented to the use of all blood products, as deemed medically necessary Approval to Proceed: approved for anesthesia documented in this encounter Plan of Treatment Upcoming Encounters Date Type Specialty Care Team Description 04/22/2022 Clinical Admitting/Central Communication Scheduling 04/26/2022 Appointment Radiology Mark Eastman M.D., M.S. [address] [place] [phone] 04/26/2022 Office Visit Otorhinolaryngology Roxanne Lanza APRN, C.N.P. [address] [place] [phone] 04/28/2022 Appointment Radiation Oncology Ursula Aguirre M.D. [address] [place] [phone] documented as of this encounter Procedures Procedure Name Priority Date/Time Associated Comments Diagnosis LDA ANE ENDOTRACHEAL Routine 04/17/2019 4:25 PM R esults for this AIRWAY CDT procedure are i n the results section. documented in this encounter Results LDA ANE ENDOTRACHEAL AIRWAY (04/17/2019 4:25 PM CDT) Narrative Anisa Woods APRN, CRNA - 019 4:25 PM CDT Anisa Woods APRN, CRNA ? 04/17/2019 ??4:30 PM Airway Date/Time: 04/17/2019 4:18 PM Performed by: Shaila Chen M.D. Authorized by: Anisa Woods APRN, CRNA Patient location during procedure: OR / Procedure Area Additional Comments Known tumor invading L aretynoid and crown buffer ssing midline. Worsening dysphonia over past 2 weeks du ring ongoing radiation treatment. AFOI with 2% lido, angelica. Airway tissue edematous, intermittent ob struction of view of cords, but ultimately able to pass slim fiberoptic and 5.5 ett with single attempt. ?? PROCEDURE DETAILS: Mask difficulty assessment: not attempte d Final airway type: disposable fiber opti c bronchoscope Laryngeal Manipulation: no ?? Final airway difficulty of direct laryng oscopy (DL): 1-some difficulty Final best view of glottic structures - Cormack/Lehane Score: grade 2A ETT location: oral Adult ETT distance at teeth/gum: 22 Oral tube type: standard ETT Cuffed: yes Leak test performed: yes (Documented in Comment) ?? Number of attempt to successful placemen t: 1 Airway confirmation: positive ETCO2, ligia ateral chest rise and fiber optic confirmation of tube placement/position Other previous techniques attempted: non e PRE PROCEDURE DETAILS: Pre evaluation for airway management: pr ocedure Urgency: elective Preop assessment of probable difficulty: questionable / suspicious difficult airway Preoxygenation: bag valve mask SEDATION / ANESTHESIA Anesthesia method: topical application Topical application type: lidocaine POST PROCEDURE DETAILS: ? Procedure outcome: successful ?? Airway event: no complications Anisa Woods APRN, CRNA, WEI ANESTHESIA ORDERABLE S documented in this encounter Visit Diagnoses Not on filedocumented in this encounter Administered Medications Inactive Administered Medications - up to 3 most recent administrations Medication Order MAR Action Action Date Dose Rate Site droperidol injection (INAPSINE) Given 04/17/2019 5:25 PM CDT 0.625 mg intravenous, As needed, Starting on Tue04/17/19 at 1725, Anesthesia Intra-op esmolol injection (BREVIBLOC) Given 04/17/2019 4:08 PM CDT 10 mg As needed, Starting on Tue04/17/19 at 1608, Anesthesia Intra-op glycopyrrolate injection (ROBINUL) Given 04/17/2019 3:27 PM CDT 0.4 mg intravenous, As needed, Starting on Tue04/17/19 at 1527, Anesthesia Intra-op lactated ringers New Bag 04/17/2019 4:24 PM CDT intravenous, Continuous Infusion: Per Instructions PRN, Starting on Tue04/17/19 at 1558, Anesthesia Intra-op New Bag 04/17/2019 3:58 PM CDT lidocaine (PF) 20 mg/mL (2 %) injection Given 04/17/2019 4:12 PM CDT 17 mL (XYLOCAINE) As needed, Starting on Tue04/17/19 at 1612, Anesthesia Intra-op ondansetron (PF) injection (ZOFRAN) Given 04/17/2019 4:25 PM CDT 4 mg intravenous, As needed, Starting on Tue04/17/19 at 1625, Anesthesia Intra-op phenylephrine injection Given 04/17/2019 4:52 PM CDT 100 mcg intravenous, As needed, Starting on Tue04/17/19 at 1641, Anesthesia Intra-op Given 04/17/2019 4:41 PM CDT 100 mcg propofol 10 mg/mL infusion Rate/Dose 04/17/2019 4:41 100 mcg/kg/min 50.1 mL/hr (DIPRIVAN) Change PM CDT intravenous, Continuous Infusion: Per Instructions PRN, Starting on Tue04/17/19 at 1619, Anesthesia Intra-op Rate/Dose Change 04/17/2019 4:38 PM CDT 125 mcg/kg/min 62.6 mL/hr Rate/Dose Change 04/17/2019 4:34 PM CDT 150 mcg/kg/min 75.2 mL/hr propofol injection (DIPRIVAN) Given 04/17/2019 4:29 PM CDT 30 mg intravenous, As needed, Starting on Tue04/17/19 at 1627, Anesthesia Intra-op Given 04/17/2019 4:27 PM CDT 50 mg Given 04/17/2019 4:18 PM CDT 50 mg remifentanil 20 mcg/mL in Rate/Dose 04/17/2019 4:41 0.1 mcg/kg/min 2 5.1 mL/hr NaCl 0.9% 100 mL infusion Change PM CDT (ULTIVA) Continuous Infusion: Per Instructions PRN, Starting on Tue04/17/19 at 1604, Anesthesia Intra-op Rate/Dose Change 04/17/2019 4:34 PM CDT 0.15 mcg/kg/min 37.6 mL/hr Rate/Dose Change 04/17/2019 4:31 PM CDT 0.1 mcg/kg/min 25.1 mL/hr remifentanil injection (ULTIVA) Given 04/17/2019 4:27 PM CDT 10 mcg As needed, Starting on Tue04/17/19 at 1604, Anesthesia Intra-op Given 04/17/2019 4:16 PM CDT 10 mcg Given 04/17/2019 4:14 PM CDT 10 mcg vancomycin 1000 mg in NaCl 0.9% 250 mL Given 04/17/2019 3:10 PM CDT 1,000 mg (VANCOCIN) IVPB 1,000 mg (rounded from 1,029 mg = 15 mg/kg ? 68.6 kg Adjusted weight), intravenous, at 260 mL/hr, Administer over 60 Minutes, Once, On Tue04/17/19 at 1445, For 1 dose, Pre-Op, Administered in the procedural room within 60-120 minutes prior to puncture/incision. Recommended infusion should be at least half infused prior to start of incision. premix bag, Drug Monitoring Program: Pharmacist to adjust medication dosing based on indication and drug clearance factors., Indications: Prophylaxis, surgical documented in this encounter
--- OUTSIDE RECORDS SUMMARY | 2022-03-31 14:51 | XMS_ITS | Encounter Summary ---
:1955 Author Organization [facility] Address [address] [place] [address] Care Team Providers Name Role Phone Unavailable Primary Care Provider Unavailable Encounter Details Date Type Department Care Team Description 04/17/2019 Documentation Division of Sue Jackson, Internal Medicine in Pharm.D., R .Ph. [place], [place] [address] [place] [phone] Social History Tobacco Use Types Packs/Day [...] or relatives? How often do you attend cheondoism or Never 2018 hinduism services? Do you belong to any clubs or No 02/21/2019 organizations such as cheondoism groups, unions, fraternal or athletic groups, or [...] documented as of this encounter Progress Notes Sue Schaefer, Pharm.D., R.Ph. - 04/17/2019 2:16 PM CDT At the request of [facility], I reviewed Ms. Narayan's outpatient medication list for interactions and issues related to administration via PEG. Current Outpatient Medications Medication Sig Recommendation ??? acetaminophen (TYLENOL) 500 mg capsule Take by mouth every 6 (six) hours as needed for pain. Ok to crush. ??? acetaminophen-codeine (TYLENOL #2) 300-15 mg per tablet Take 1 tablet by mouth every 6 (six) hours as needed for pain Indication: Prolonged Acute Pain/Traumatic Injury. Ok to crush. ??? aspirin 81 mg chewable tablet Chew 81 mg daily. Clare Aspirin Ok to crush. ??? budesonide-formoterol (SYMBICORT) 160-4.5 mcg/actuation inhaler Inhale 2 puffs 2 (two) times a day. Rinse mouth with water after use to reduce aftertaste and incidence of candidiasis. Do not swallow. Not applicable. ??? cetirizine (ZyrTEC) 10 mg tablet Take 10 mg by mouth daily. Ok to crush. ??? diaper,brief,adult,disposable (DEPEND UNDERWEAR FOR WOMEN XL) misc Bag: (36 each) Not applicable. ??? fentaNYL (DURAGESIC) 12 mcg/hr patch Place 1 patch on the skin every third day for 15 days Indication: Prolonged Acute Pain/Traumatic Injury. Not applicable. ??? fluticasone propionate (FLONASE) 50 mcg/actuation nasal spray Daily. No applicable. ??? guaiFENesin (MUCINEX) 600 mg 12 hr tablet Take 1 tablet (600 mg total) by mouth 2 (two) times a day. Do not crush due to sustained-release formulation; Consider liquid or immediate release tablet at dose of 200-400 mg every 4 hours. Max dose = 2400 mg/day. ??? guaiFENesin (ROBITUSSIN) 100 mg/5 mL liquid Take 10 mL (200 mg total) by mouth every 4 (four) hours. Liquid formulation ok for tube administration. ??? hydroCHLOROthiazide (HYDRODIURIL) 25 mg tablet Take 25 mg by mouth daily. Ok to crush. ??? HYDROcodone-acetaminophen (HYCET) 7.5-325 mg/15 mL solution Take 10-15 mL by mouth as directed Indication: Prolonged Acute Pain/Traumatic Injury. Every 4-6 hours for pain Ok for tube administration, but may contain sorbitol that may contribute to osmotic diarrhea. Dilute well or give tablet and crush for tube administration. ??? ibuprofen (ADVIL,MOTRIN) 200 mg capsule Take 600 mg by mouth every 6 (six) hours as needed for pain. Ok to crush. ??? metFORMIN (GLUCOPHAGE) 500 mg tablet 2 (two) times a day. Ok to crush. ??? nicotine (NICODERM CQ) 14 mg/[address] 1 patch on the skin. Not applicable. ??? nicotine polacrilex (NICORETTE) 2 mg gum 2 mg. No applicable. ??? raNITIdine (ZANTAC) 150 mg tablet Take 150 mg by mouth 2 (two) times a day. Ok to crush ??? sulfamethoxazole-trimethoprim (BACTRIM DS) 800-160 mg per tablet Take 1 tablet by mouth every 12(twelve) hours. Ok to crush, but may clog tube. Liquid formulation is an option, but it does containsorbitol which can contribute to osmotic diarrhea. In most cases, direct data on medication administration via feeding tubes is not available. Therefore recommendations in many cases, for example ok to crush are provided based on general principles of administering medications via feeding tube. Because bioavailability may vary with oral and feeding tube administration, close monitoring of drug effects and/or levels is necessary with a change in route of administration such as this. documented in this encounter Plan of Treatment Upcoming Encounters Date Type Specialty Care Team Description 04/22/2022 Clinical Admitting/Central Communication Scheduling 04/26/2022 Appointment Radiology Mark Eastman M.D., M.S. [address] [place] [phone] 04/26/2022 Office Visit Otorhinolaryngology Roxanne Lanza, LEHR ATTENDANT, C.N.P. [address] [place] [phone] 04/28/2022 Appointment Radiation Oncology Ursula Aguirre M.D. [address] [place] [phone] documented as of this encounter Visit Diagnoses Not on filedocumented in this encounter
--- OUTSIDE RECORDS SUMMARY | 2022-03-31 14:51 | XMS_ITS | Encounter Summary ---
:1955 Author Organization [facility] Address [address] [place] [address] Care Team Providers Name Role Phone Unavailable Primary Care Provider Unavailable Reason for Visit Reason Comments Outpatient Infusion thiamine Encounter Details Date Type Department Care Team Description 04/18/2019 Infusion Department of Infusion Lara Castellanos Malignant Neoplasm Of Therapy in [facility], CLASSIFICATION OFFICER, C .N.P. Supraglottic (HCC) [address] (Primary Dx) [address] [place] [phone] Social History Tobacco Use Types Packs/Day Years [...] you attend roman catholic or Never 2018 mormonism services? Do you [...] Sign Reading Time Taken Comments Blood Pressure 102/81 04/18/2019 9:46 AM CDT Pulse 93 04/18/2019 9:46 AM CDT Temperature 36.9 ??C (98.4 ??F) 04/18/2019 9:46 AM CDT Respiratory Rate 20 04/18/2019 9:46 AM CDT Oxygen Saturation - - Inhaled Oxygen Concentration - - Weight - - Height - - Body Mass Index - - documented in this encounter Plan of Treatment Upcoming Encounters Date Type Specialty Care Team Description 04/22/2022 Clinical Admitting/Central Communication Scheduling 04/26/2022 Appointment Radiology Mark Eastman M.D., M.S. [address] [place] [address] [place] [phone] 04/26/2022 Office Visit Otorhinolaryngology Roxanne Lanza APRN, C.N.P. [address] [place] [phone] 04/28/2022 Appointment Radiation Oncology Ursula Aguirre M.D. [address] [place] [phone] documented as of this encounter Visit Diagnoses Diagnosis Malignant Neoplasm Of Supraglottic (HCC) - Primary documented in this encounter Administered Medications Inactive Administered Medications - up to 3 most recent administrations Medication Order MAR Action Action Date Dose Rate Site sodium chloride 0.9 % injection 3 Given 04/18/2019 10:14 AM CDT 3 mL mL 3 mL, intra-catheter, As needed, line care, Starting on Tue04/18/19 at 0941, Prior to and following infusion and between multiple consecutive infusions. Given 04/18/2019 9:51 AM CDT 3 mL thiamine injection 100 mg (VITAMIN B1) Given 04/18/2019 10:03 AM CDT 100 mg 100 mg, intravenous, Once, On Tue04/18/19 at 0945, For 1 dose, Thiamine 100 mg IV daily x 3 days, 04/17-04/19. 04/17-04/18 in [facility], 04/19 in [facility]. documented in this encounter
--- OUTSIDE RECORDS SUMMARY | 2022-03-31 14:51 | XMS_ITS | Encounter Summary ---
:1955 Author Organization [facility] Address [address] [place] [address] Care Team Providers Name Role Phone Unavailable Primary Care Provider Unavailable Encounter Details Date Type Department Care Team Description 04/18/2019 Orders Only Department of Emy Kuhn Malignan t Neoplasm Of Supraglottic (HCC) (Primary Dx); Nutrition in RDN, LD Gastrostomy Status (HCC); [place], [place] [address] Dysphagia Oropharyngeal Phase 200 [place] [phone] Social History Tobacco Use Types Packs/Day Years [...] or relatives? How often do you attend baptism or Never 2018 rastafarian services? Do you belong to any clubs or No 02/21/2019 organizations such as baptism groups, unions, fraternal or athletic groups, or [...] Radiology Mark Eastman M.D., M.S. [address] [place] [phone] 04/26/2022 Office Visit Otorhinolaryngology Roxanne Lanza APRN, C.N.P. [address] [place] [phone] 04/28/2022 Appointment Radiation Oncology Ursula Aguirre M.D. [address] [place] [phone] documented as of this encounter Visit Diagnoses Diagnosis Malignant Neoplasm Of Supraglottic (HCC) - Primary Gastrostomy Status (HCC) Dysphagia Oropharyngeal Phase documented in this encounter
--- OUTSIDE RECORDS SUMMARY | 2022-03-31 14:51 | XMS_ITS | Encounter Summary ---
:1955 Author Organization [facility] Address [address] [place] [address] Care Team Providers Name Role Phone Unavailable Primary Care Provider Unavailable Reason for Visit Outpatient (Routine) - Closed Specialty Diagnoses / Procedures Referred By Contact Refer red To Contact Endocrinology Diagnoses Malignant Neoplasm Of Supraglottic (HCC) Lara Castellanos, [facility] AMAYA, C.N.P. [address] [place] [phone] Referral ID Status Reason Start Date Expiration Date Visits Requ ested Visits Authorized [id number] Closed 04/13/2019 04/12/2020 1 1 Encounter Details Date Type Department Care Team Description 04/18/2019 Comprehensive Visit Division of Lara Castellanos APRN, C.N.P. [address] [place] [phone] Dysphagia (Primary Dx); Endocrinology in Padma Vieira APRN, C.N.P., M.S. [address] [place] [phone] Malignant Neoplasm Of Supraglottic (HCC) ; [place], [place] Home Enteral Nutrition [address] [place] [phone] Social History Tobacco Use Types Packs/Day Years [...] do you attend adventism or Never 2018 bahai services? Do you [...] documented as of this encounter Progress Notes Padma Vieira APRN, C.N.P., M.S. - 04/18/2019 10:00 AM CDT ASSESSMENT: Ms. Obdulia Narayan is a 63 y.o. female whose medical history is nutritionally significant for supraglottic squamous cell carcinoma, currently undergoing radiation therapy with anticipated date of completion 05/04/2019, dysphagia, poor oral intake, and weight loss, tobacco smoking history of 2.5 ppdsince age 18 (quit end of February 2019), hypertension, COPD, psoriatic arthritis, DM II, 5 cm infrarenal abdominal aortic aneurysm, GERD. Her medical history also includes deafness since age 8, due to rubella. Her surgical history is significant for umbilical hernia repair, with mesh, in 2010, and a tubal ligation. She is status post PEG tube placement on 04/17/19. I saw Ms. Narayan and her family today to review lab results. All electrolytes are within normal range. No recommendations for electrolyte replacement at this time. She verbalized understanding of enteral feedings. Will initiate tube feeds in slow and methodical manner. Labs to be rechecked 04/19 and 04/20 and my colleague Lara Castellanos CNP will review and provide recommendations. Patient and family verbalized understanding. documented in this encounter Plan of Treatment Upcoming Encounters Date Type Specialty Care Team Description 04/22/2022 Clinical Admitting/Central Communication Scheduling 04/26/2022 Appointment Radiology Mark Eastman M.D., M.S. [address] [place] [phone] 04/26/2022 Office Visit Otorhinolaryngology Roxanne Lanza APRN, C.NShitalPShital [address] [place] [phone] 04/28/2022 Appointment Radiation Oncology Ursula Aguirre M.D. [address] [place] [address] documented as of this encounter Visit Diagnoses Diagnosis Dysphagia - Primary Malignant Neoplasm Of Supraglottic (HCC) Home Enteral Nutrition documented in this encounter
--- OUTSIDE RECORDS SUMMARY | 2022-03-31 14:51 | XMS_ITS | Encounter Summary ---
:1955 Author Organization [facility] Address [address] [place] [address] Care Team Providers Name Role Phone Unavailable Primary Care Provider Unavailable Reason for Referral Radiation Therapy (Routine) - Canceled Specialty Diagnoses / Procedures Referred By Contact Refer red To Contact Diagnoses Malignant Neoplasm Of Supraglottic (HCC) Ursula Aguirre M.D. [facility] Procedures Management Visit [address] [place] [address] [phone] Referral ID Status Reason Start Date Expiration Date Visits V isits Requested Authorized [id number] Canceled 04/09/2019 04/08/2020 10 10 Reason for Visit Radiation Therapy (Routine) - Canceled Specialty Diagnoses / Procedures Referred By Contact Refer red To Contact Diagnoses Malignant Neoplasm Of Supraglottic (HCC) Ursula Aguirre M.D. [facility] Region Procedures Management Visit [address] [place] [address] [phone] Referral ID Status Reason Start Date Expiration Date Visits V isits Requested Authorized [id number] Canceled 04/09/2019 04/08/2020 10 10 Encounter Details Date Type Department Care Team Description 04/18/2019 Hospital Encounter Department of Ursula Aguirre Neoplasm Of Radiation Oncology Kimberley Bacon Supraglottic (HCC) in [place], [address] [place], [place] 1821 [facility] [address] [place], [place] [phone] (Work) [phone] Social History Tobacco Use Types Packs/Day Years [...] do you attend presybeterian or Never 2018 taoism services? Do you [...] Sign Reading Time Taken Comments Blood Pressure 141/68 04/18/2019 2:06 PM CDT Pulse 88 04/18/2019 2:06 PM CDT Temperature 36.7 ??C (98.1 ??F) 04/18/2019 2:06 PM CDT Respiratory Rate - - Oxygen Saturation - - Inhaled Oxygen Concentration - - Weight 84.4 kg (186 lb 1.1 oz) 04/18/2019 2:06 PM CDT Height - - Body Mass Index 30.34 04/18/2019 8:26 AM CDT documented in this [...] Progress Notes Summer Pérez P.A.-C., M.S. - 04/18/2019 2:19 PM CDT SUBJECTIVE REASON FOR VISIT Evaluation for side effects while receiving radiation treatment for 1. Malignant Neoplasm Of Supraglottic (HCC) SUPERVISED BY: Ursula Aguirre M.D. HISTORY OF PRESENT ILLNESS Obdulia Narayan is a 63-year-old??female??with??supraglottic squamous cell carcinoma.?She??is currently receiving definitive??radiation therapy to the supraglottic tumor??to a dose of 7000??cGy in35??fractions. ??She??has received 19??of 35??fractions for a dose of??3800??cGy out of a planned total dose of 7000??cGy. ??Her??anticipated date of completion is May 04, 2019. She is receiving altered fractionation treatment with twice a day treatment once weekly. ??She will not be receiving concurrent chemotherapy.?? The patient was seen and examined today with Dr. Aguirre. The patient reports doing well overall. She had PEG tube placement on April 17, 2019. She reportshaving her first tube feeding this morning and it went well. She was told to have one carton three times daily. She was sent home with two cases of supplements. She is drinking water by mouth. She reports pain at the tube site, rated 6/10 in severity. She placed a fentanyl 12 mcg patch last night. Sheonly took Tylenol for breakthrough pain this morning. She does have hydrocodone-acetaminophen solution available as well. She denies nausea or vomiting. She reports good energy levels. She denies any other questions or concerns today. PATIENT REPORTED SYMPTOM SCREEN FATIGUE (Scale: 0 = no fatigue; 10 = worst fatigue you can imagine): 0 ?? PAIN (Scale: 0 = no pain; 10 = worst pain you can imagine): 6 ?? OVERALL QUALITY OF LIFE (Scale: 0 = as bad as can be; 10 = as good as can be): 10 OBJECTIVE BP 141/68 (BP Location: Left arm, Patient Position: Sitting, Cuff Size: Small) Pulse 88 Temp 36.7 ??C (Temporal) Wt 84.4 kg BMI 30.34 kg/m? PHYSICAL EXAM General: Alert and oriented in no apparent distress. ASSESSMENT [...] patient is tolerating radiation treatment well overall. She had a PEG tube placed yesterday. Thepatient reports being confident in tube feedings. She reports having two cases of supplements. She will meet with our dietitian tomorrow. She applied a fentanyl 12 mcg patch last night. She has hydrocodone- acetaminophen solution available if needed for breakthrough pain. The patient would like to re-schedule having a scope performed until next week. She will contact us with any questions or concerns.We will continue with radiation treatment as planned. Signed by: Summer Pérez P.A.-C., MShitalSShital 04/18/2019 2:19 PM Associated attestation - Ursula Aguirre M.D. - 04/18/2019 3:19 PM CDT I saw and evaluated the patient and participated in the rao portions of the service. I reviewed the documentation of Ms. Summer Pérez PA-C, and agree with the findings and plan. The patient appears well on exam. She has lost her voice and has mild erythema in the treatment field. The PEG tube site looks good, no infection. We will continue with radiation as planned and monitor weekly. Ursula Aguirre M.D., 04/18/19 documented in this encounter Plan of Treatment Upcoming Encounters Date Type Specialty Care Team Description 04/22/2022 Clinical Admitting/Central Communication Scheduling 04/26/2022 Appointment Radiology Mark Eastman M.D., M.S. [address] [place] [phone] 04/26/2022 Office Visit Otorhinolaryngology Roxanne Lanza APRN, C.N.P. [address] [place] [phone] 04/28/2022 Appointment Radiation Oncology Ursula Aguirre M.D. [address] [place] [phone] Scheduled Orders Name Type Priority Associated Diagnoses Order S chedule Management Visit Radiation Oncology Routine Malignant Neoplasm Of Once for 1 Supraglottic (HCC) Occurrenc es starting 04/18/2019 unti l 04/18/2019 documented as of this encounter Visit Diagnoses Diagnosis Malignant Neoplasm Of Supraglottic (HCC) documented in this encounter
--- OUTSIDE RECORDS SUMMARY | 2022-03-31 14:51 | XMS_ITS | Encounter Summary ---
:1955 Author Organization [facility] Address [address] [place] [address] Care Team Providers Name Role Phone Unavailable Primary Care Provider Unavailable Reason for Visit Radiation Therapy (Routine) - Closed Specialty Diagnoses / Procedures Referred By Contact Refer red To Contact Diagnoses Malignant Neoplasm Of Supraglottic (HCC) Ursula Aguirre M.D. [facility] Procedures Prior Auth Rad Tx DC IMRT COMPLEX [address] [place] [phone] Referral ID Status Reason Start Date Expiration Date Visits Requ ested Visits Authorized [id number] Closed 03/15/2019 03/14/2020 35 35 Encounter Details Date Type Department Care Team Description 04/23/2019 Hospital Encounter Department of Radiation Bud Aguirre I., [place] [address] [facility] [address] [place] [phone] Social History Tobacco Use Types Packs/Day Years [...] do you attend islam or Never 2018 moravian services? Do you [...] Appointment Radiology Mark Eastman M.D., M.S. [address] [place] [phone] 04/26/2022 Office Visit Otorhinolaryngology Roxanne Lanza APRN, C.N.P. [address] [place] [phone] 04/28/2022 Appointment Radiation Oncology Ursula Aguirre M.D. [address] [place] [phone] documented as of this encounter Visit Diagnoses Not on filedocumented in this encounter
--- OUTSIDE RECORDS SUMMARY | 2022-03-31 14:51 | XMS_ITS | Encounter Summary ---
:[address] [facility] Address [address] [place] [address] Care Team Providers Name Role Phone Unavailable Primary Care Provider Unavailable Reason for Visit Radiation Therapy (Routine) - Closed Specialty Diagnoses / Procedures Referred By Contact Refer red To Contact Diagnoses Malignant Neoplasm Of Supraglottic (HCC) Ursula Aguirre M.D. [facility] Procedures Prior Auth Rad Tx [place] IMRT COMPLEX [address] [place] [phone] Referral ID Status Reason Start Date Expiration Date Visits Requ ested Visits Authorized [id number] Closed 03/15/2019 03/14/2020 35 35 Encounter Details Date Type Department Care Team Description 04/20/2019 Hospital Encounter Department of Radiation uBd Aguirre I., [place]cology [place] [address] [facility] [address] [place] [phone] Social History Tobacco Use Types Packs/Day Years [...] do you attend buddhism or Never 2018 mandaeism services? Do you [...] Radiology Mark Eastman M.D., M.S. [address] [place] [phone] 04/26/2022 Office Visit Otorhinolaryngology Roxanne Lanza APRN, C.N.P. [address] [place] [phone] 04/28/2022 Appointment Radiation Oncology Ursula Aguirre M.D. [address] [place] [phone] documented as of this encounter Visit Diagnoses Not on filedocumented in this encounter
--- OUTSIDE RECORDS SUMMARY | 2022-03-31 14:51 | XMS_ITS | Encounter Summary ---
:1955 Author Organization [facility] Address [address] [place] [address] Care Team Providers Name Role Phone Unavailable Primary Care Provider Unavailable Reason for Visit Reason Comments Outpatient Infusion Thiamine Encounter Details Date Type Department Care Team Description 04/17/2019 Infusion Department of Infusion Lara Castellanos Malignant Neoplasm Of Therapy in [facility], SENIOR APPLICATIONS ENGINEER, C .N.P. Supraglottic (HCC) [address] (Primary Dx) [address] [place] [phone] Social History Tobacco Use Types Packs/Day Years [...] do you attend mandaeism or Never 2018 religion services? Do you [...] Sign Reading Time Taken Comments Blood Pressure 153/72 04/17/2019 7:10 PM CDT Pulse 101 04/17/2019 7:10 PM CDT Temperature 37.3 ??C (99.1 ??F) 04/17/2019 7:10 PM CDT Respiratory Rate 16 04/17/2019 7:10 PM CDT Oxygen Saturation - - Inhaled Oxygen Concentration - - Weight - - Height - - Body Mass Index - - documented in this encounter Plan of Treatment Upcoming Encounters Date Type Specialty Care Team Description 04/22/2022 Clinical Admitting/Central Communication Scheduling 04/26/2022 Appointment Radiology Mark Eastman M.D., M.S. [address] [place] [address] [place] [phone] 04/26/2022 Office Visit Otorhinolaryngology Roxanne Lanza APRN, C.N.P. [address] [place] [phone] 04/28/2022 Appointment Radiation Oncology Ursula Aguirre M.D. [address] [place] [phone] documented as of this encounter Visit Diagnoses Diagnosis Malignant Neoplasm Of Supraglottic (HCC) - Primary documented in this encounter Administered Medications Inactive Administered Medications - up to 3 most recent administrations Medication Order MAR Action Action Date Dose Rate Site sodium chloride 0.9 % injection 3 mL Given 04/17/2019 7:30 PM CDT 3 mL 3 mL, intra-catheter, As needed, line care, Starting on Tue04/17/19 at 1922, Prior to and following infusion and between multiple consecutive infusions. thiamine injection 100 mg (VITAMIN B1) Given 04/17/2019 7:29 PM CDT 100 mg 100 mg, intravenous, Once, On Tue04/17/19 at 1915, For 1 dose, Thiamine 100 mg IV daily x 3 days, 04/17-04/19. 04/17-04/18 in [facility], 04/19 in [facility]. documented in this encounter
--- OUTSIDE RECORDS SUMMARY | 2022-03-31 14:51 | XMS_ITS | Encounter Summary ---
:1955 Author Organization [facility] Address [address] [place] [address] Care Team Providers Name Role Phone Unavailable Primary Care Provider Unavailable Encounter Details Date Type Department Care Team Description 04/20/2019 Orders Only Division of Estrada Castellanos [facility] Endocrinology in Lara José APRN, Nutritio n (Primary [place], [place] C.N.P. Dx) [address] [facility] [address] [place] [address] [place], [place] [phone] Social History Tobacco Use Types Packs/Day Years [...] do you attend sabianist or Never 2018 hoahaoism services? Do you [...] Appointment Radiology Mark Eastman M.D., M.S. [address] [place] [phone] 04/26/2022 Office Visit Otorhinolaryngology Roxanne Lanza, MASTER TAX ADVISOR, C.N.P. [address] [place] [phone] 04/28/2022 Appointment Radiation Oncology Ursula Aguirre M.D. [address] [place] [address], [place] [phone] documented as of this encounter Results Potassium (04/23/2019 9:42 AM CDT) athologist Signature Potassium, S 4.9 3.6 - 5.2 04/23/2019 mmol/L 1:58 PM CDT Specimen Anatomical Collection Method Collection Time Receive d Time (Source) Location / / Volume Laterality Blood (Blood, 04/23/2019 9:42 AM 04/23/20 19 1:12 Venous) CDT PM CDT Lara Castellanos APRN, Estefanía.N.P. LAB BLOOD ADD-ON Performing Organization Address City/State/ZIP Code Phon e Number [facility] [address] [place] [address] LAB Phosphorus Inorganic (04/23/2019 9:42 AM CDT) athologist Signature Phosphorus 3.2 2.5 - 4.5 04/23/2019 (Inorganic), S mg/dL 4:17 PM CDT Specimen Anatomical Collection Method Collection Time Receive d Time (Source) Location / / Volume Laterality Blood (Blood, 04/23/2019 9:42 AM 04/23/20 19 4:04 Venous) CDT PM CDT Lara Castellanos APRN, C.N.P. LAB BLOOD ADD-ON Performing Organization Address City/State/ZIP Code Phon e Number [facility] [address] [place] [address] [place] LAB Magnesium (04/23/2019 9:42 AM CDT) athologist Signature Magnesium, S 2.0 1.7 - 2.3 04/23/2019 mg/dL 1:58 PM CDT Specimen Anatomical Collection Method Collection Time Receive d Time (Source) Location / / Volume Laterality Blood (Blood, 04/23/2019 9:42 AM 04/23/20 19 1:12 Venous) CDT PM CDT Lara Castellanos APRN, C.N.P. LAB BLOOD ADD-ON Performing Organization Address City/State/ZIP Code Phon e Number [facility] [address] [place] [address] LAB documented in this encounter Visit Diagnoses Diagnosis Home Enteral Nutrition - Primary documented in this encounter
--- OUTSIDE RECORDS SUMMARY | 2022-03-31 14:51 | XMS_ITS | Encounter Summary ---
:1955 Author Organization [facility] Address [address] [place] [address] Care Team Providers Name Role Phone Unavailable Primary Care Provider Unavailable Reason for Visit Auth/Cert Specialty Diagnoses / Procedures Referred By Contact Refer red To Contact Diagnoses Malignant Neoplasm Of Supraglottic (HCC) Procedures EGD ? PERCUTANEOUS ENDOSCOPIC GASTROSTOMY/JEJUNOSTOMY Referral ID Status Reason Start Date Expiration Date Visits Requ ested Visits Authorized [id number] 1 1 Encounter Details Date Type Department Care Team Description 04/17/2019 Hospital Encounter Department of Padma Vieira Enteral Radiology, Brenda Chaidez APRN C.NShitalPShital, Nutriti on [facility] in [facility], [address] [place], [place] [address] [place] [phone] [place], [place] [phone] (Work) [phone] Social History Tobacco Use Types Packs/Day Years [...] do you attend uatsdin or Never 2018 oriental orthodox services? Do [...] to pay for the very basics like [employer] hat hard 02/21/2019 food, housing, medical care, [...] Appointment Radiology Mark Eastman M.D., M.S. [address] [place] [phone] 04/26/2022 Office Visit Otorhinolaryngology Roxanne Lanza, PAYROLL PROFESSIONAL, C.N.P. [address] [place] [phone] 04/28/2022 Appointment Radiation Oncology Ursula Aguirre M.D. [address] [place] [phone] documented as of this encounter Procedures Procedure Name Priority Date/Time Associated Comments Diagnosis US ABDOMEN RAD - Routine 04/17/2019 1:48 Home Enteral Results for this LIMITED (most inpatients PM CDT Nutrition procedure a re in and all the results outpatients) section. documented in this encounter Results US Abdomen Limited (04/17/2019 1:48 PM CDT) Anatomical Region Laterality Modality Abdomen, Ultrasound RST LOS, Ultrasound ARZ LOS, Ultrasound FLA N/A Ultrasound LOS Specimen (Source) Anatomical Collection Method Collection Time Re ceived Time Location / / Volume Laterality 04/17/2019 1:51 PM CDT Impressions 04/17/2019 1:55 PM CDT 1. The margins of the surgical mesh in the anterior abdominal wall in the umbilical region were marked. 2 very small herniation of fat along the superior margin of the mesh Narrative 04/17/2019 1:55 PM CDT EXAMS: US ABDOMEN LIMITED CT COMPARISON: 03/20/2019 Procedure Note Zach William M.D. - 04/17/2019Formatti ng of this note might be different from the original. EXAMS: US ABDOMEN LIMITED CT COMPARISON: 03/20/2019 IMPRESSION: 1. The margins of the surgical mesh in t he anterior abdominal wall in the umbilical region were marked. 2 very small herniation of fat along the superior margin of the mesh Padma Vieira APRN C.N.P., M.S. IMG US PROCEDURE S documented in this encounter Visit Diagnoses Diagnosis Home Enteral Nutrition documented in this encounter
--- OUTSIDE RECORDS SUMMARY | 2022-03-31 14:51 | XMS_ITS | Encounter Summary ---
:1955 Author Organization [facility] Address [address] [place] [address] Care Team Providers Name Role Phone Unavailable Primary Care Provider Unavailable Encounter Details Date Type Department Care Team Description 04/20/2019 Hospital Encounter Department of Peter Castellanos Neoplasm Of Laboratory Medicine Lara José APRN, Supra glottic (HCC) in [facility] [address] [facility] [address] [place] [phone] Social History Tobacco Use Types Packs/Day Years [...] do you attend yazidism or Never 2018 mosque services? Do you [...] 10 mg Take 10 mg by 3 02/18/ 019 08/02/2019 tablet mouth daily. fluticasone propionate [...] Radiology Mark Eastman M.D., M.S. [address] [place] [address] 04/26/2022 Office Visit Otorhinolaryngology Roxanne Lanza, LANDSCAPE HORTICULTURE INSTRUCTOR, C.N.P. [address] [place] [phone] 04/28/2022 Appointment Radiation Oncology Ursula Aguirre M.D. [address] [place] [phone] documented as of this encounter Procedures Procedure Name Priority Date/Time Associated Diagnosis Comme nts POTASSIUM, S/P Routine 04/20/2019 9:03 AM Malignant Neoplasm O f Results for this CDT Supraglottic (HCC) procedure are in the results section. PHOSPHORUS Routine 04/20/2019 9:03 AM Malignant Neoplasm Of Results for this (INORGANIC), S CDT Supraglottic (HCC) procedu re are in the results section. MAGNESIUM, S Routine 04/20/2019 9:03 AM Malignant Neoplasm Of Results for this CDT Supraglottic (HCC) procedure are in the results section. documented in this encounter Results Magnesium (04/20/2019 9:03 AM CDT) athologist Signature Magnesium, S 1.8 1.7 - 2.3 04/20/2019 mg/dL 10:19 AM CDT Specimen Anatomical Collection Method Collection Time Receive d Time (Source) Location / / Volume Laterality Blood (Blood, 04/20/2019 9:03 AM 04/20/20 19 9:11 Venous) CDT AM CDT Lara Castellanos APRN, C.N.P. LAB BLOOD ADD-ON Performing Organization Address City/State/ZIP Code Phon e Number [facility] [address] [place] [address] LAB Phosphorus Inorganic (04/20/2019 9:03 AM CDT) athologist Signature Phosphorus 3.3 2.5 - 4.5 04/20/2019 (Inorganic), S mg/dL 10:12 PM CDT Specimen Anatomical Collection Method Collection Time Receive d Time (Source) Location / / Volume Laterality Blood (Blood, 04/20/2019 9:03 AM 04/20/20 19 9:37 Venous) CDT PM CDT Lara Castellanos APRN, C.N.P. LAB BLOOD ADD-ON Performing Organization Address City/State/ZIP Code Phon e Number [facility] [address] [place] [address] [place] LAB Potassium (04/20/2019 9:03 AM CDT) athologist Signature Potassium, S 4.2 3.6 - 5.2 04/20/2019 mmol/L 10:19 AM CDT Specimen Anatomical Collection Method Collection Time Receive d Time (Source) Location / / Volume Laterality Blood (Blood, 04/20/2019 9:03 AM 04/20/20 19 9:11 Venous) CDT AM CDT Lara Castellanos APRN, C.N.P. LAB BLOOD ADD-ON Performing Organization Address City/State/ZIP Code Phon e Number [facility] [address] [place] [address] LAB documented in this encounter Visit Diagnoses Diagnosis Malignant Neoplasm Of Supraglottic (HCC) documented in this encounter
--- OUTSIDE RECORDS SUMMARY | 2022-03-31 14:51 | XMS_ITS | Encounter Summary ---
:1955 Author Organization [facility] Address [address] [place] [address] Care Team Providers Name Role Phone Unavailable Primary Care Provider Unavailable Reason for Visit Reason Comments Feeding Tube Encounter Details Date Type Department Care Team Description 04/18/2019 Clinical Support Division of Chapin Vieira APRN, C.N.P., M.S. [address] [place] [phone] [facility]. [address] [place] [phone] Nutrition [place], [place] [address] [place] [phone] Social History Tobacco Use Types Packs/Day Years [...] do you attend moravian or Never 2018 jewish services? Do you [...] encounter Progress Notes Dolores Lucio R.N. - 04/18/2019 10:00 AM CDT SUBJECTIVE REASON FOR VISIT Ms. Narayan was seen in the Home Enteral Nutrition clinic today for a post tube placement visit. OBJECTIVE The indication for tube placement was: Cancer: Head and neck: supraglottic laryngeal. Tube was placed using: General anesthesia. Were there complications at time of placement? No. ASSESSMENT Tube type: PEG tube Tube size: 20 Tube brand: [employer] Tube reference number: [id number] Connector type: Small Bore (Enfit) Date placed: 04/17/19 Skin disk level: 3.5 Internal anchor device: balloon Site condition: Normal/Intact and tender; small slit at 0600 Dressing status: Removed Is an infection assessment needed? No Condition of tube: Tube clear/Normal appearance Securement device used: Se pro net Movement of tube: Moves freely T-fasteners present: Yes. Number of T-fasteners present: 3. Describe T-fastener site: 0100 and 0400 resting comfortably on abdominal wall; 0900 slightly snug- patient and daughter in law will keep an eye on it The patient's tube preference is: NA Does the patient have a second enteral tube? No Considerations for future visits: Low profile tube: NA Self replacement: NA Special order tube: GI/IR plant utility person notified? NA PLAN Were procedural instructions given? No Is there a procedure scheduled? None Is a return visit needed? As needed *Patient able to do site care and [id number] Darlin assisted with rotation, as patient had trouble with that part. documented in this encounter Plan of Treatment Upcoming Encounters Date Type Specialty Care Team Description 04/22/2022 Clinical Admitting/Central Communication Scheduling 04/26/2022 Appointment Radiology Mark Eastman M.D., M.S. [address] [place] [phone] 04/26/2022 Office Visit Otorhinolaryngology Roxanne Lanza APRN, C.N.P. [address] [place] [phone] 04/28/2022 Appointment Radiation Oncology Ursula Aguirre M.D. [address] [place] [phone] documented as of this encounter Visit Diagnoses Diagnosis Home Enteral Nutrition documented in this encounter
--- OUTSIDE RECORDS SUMMARY | 2022-03-31 14:51 | XMS_ITS | Encounter Summary ---
:1955 Author Organization [facility] Address [address] [place] [address] Care Team Providers Name Role Phone Unavailable Primary Care Provider Unavailable Reason for Visit Reason Comments Outpatient Infusion Encounter Details Date Type Department Care Team Description 04/19/2019 Infusion Department of Infusion Lara Castellanos Malignant Neoplasm Of Therapy in [place], , BOILER SHOP SUPERVISOR, C .N.P. Supraglottic (HCC) [address] (Primary Dx) [address] [place] [phone] Social History Tobacco Use Types Packs/Day Years [...] do you attend sikh or Never 2018 sabianist services? Do you [...] Radiology Mark Eastman M.D., M.S. [address] [place] [phone] 04/26/2022 Office Visit Otorhinolaryngology Roxanne Lanza APRN, C.N.P. [address] [place] [phone] 04/28/2022 Appointment Radiation Oncology Ursula Aguirre M.D. [address] [place] [phone] documented as of this encounter Procedures Procedure Name Priority Date/Time Associated Diagnosis Comme nts POTASSIUM, S/P Routine 04/19/2019 7:02 PM Malignant Neoplasm O f Results for this CDT Supraglottic (HCC) procedure are in the results section. PHOSPHORUS Routine 04/19/2019 7:02 PM Malignant Neoplasm Of Results for this (INORGANIC), S CDT Supraglottic (HCC) procedu re are in the results section. MAGNESIUM, S Routine 04/19/2019 7:02 PM Malignant Neoplasm Of Results for this CDT Supraglottic (HCC) procedure are in the results section. documented in this encounter Results Magnesium (04/19/2019 7:02 PM CDT) athologist Signature Magnesium, S 1.9 1.7 - 2.3 04/19/2019 mg/dL 8:18 PM CDT Specimen Anatomical Collection Method Collection Time Receive d Time (Source) Location / / Volume Laterality Blood (Blood, 04/19/2019 7:02 PM 04/19/20 19 7:09 Venous) CDT PM CDT Lara Castellanos APRN, C.N.P. LAB BLOOD ADD-ON Performing Organization Address City/[facility] Code Phon e Number [facility] - 200 [place] [phone] [facility] Phosphorus Inorganic (04/19/2019 7:02 PM CDT) athologist Signature Phosphorus 3.5 2.5 - 4.5 04/19/2019 (Inorganic), S mg/dL 8:18 PM CDT Specimen Anatomical Collection Method Collection Time Receive d Time (Source) Location / / Volume Laterality Blood (Blood, 04/19/2019 7:02 PM 04/19/20 19 7:09 Venous) CDT PM CDT Lara Castellanos APRN, C.N.P. LAB BLOOD ADD-ON Performing Organization Address City/[facility] Code Phon e Number [facility] - 200 [place] [phone] [facility] Potassium (04/19/2019 7:02 PM CDT) P athologist Signature Potassium, S 4.8 3.6 - 5.2 04/19/2019 mmol/L 8:18 PM CDT Specimen Anatomical Collection Method Collection Time Receive d Time (Source) Location / / Volume Laterality Blood (Blood, 04/19/2019 7:02 PM 04/19/20 7:09 Venous) CDT PM CDT Teresa Patel APRNNShitalPShital LAB BLOOD ADD-ON Performing Organization Address City/State/ZIP Code Phon e Number [facility] - [address] [place], [place] [address] [facility] documented in this encounter Visit Diagnoses Diagnosis 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 Given 04/19/2019 6:49 PM CDT 3 mL thiamine injection 100 mg (VITAMIN B1) Given 04/19/2019 6:58 PM CDT 100 mg 100 mg, intravenous, Once, On Meredith 04/19/19 at 1830, For 1 dose, Thiamine 100 mg IV daily x 3 days, 04/17-04/19. 04/17-04/18 in [facility], 04/19 in [facility]. documented in this encounter
--- OUTSIDE RECORDS SUMMARY | 2022-03-31 14:51 | XMS_ITS | Encounter Summary ---
:1955 Author Organization [facility] Address [address] [place] [address] Care Team Providers Name Role Phone Unavailable Primary Care Provider Unavailable Reason for Visit Radiation Therapy (Routine) - Closed Specialty Diagnoses / Procedures Referred By Contact Refer red To Contact Diagnoses Malignant Neoplasm Of Supraglottic (HCC) Ursula Aguirre M.D. [facility] Procedures Prior Auth Rad Tx [place] IMRT COMPLEX [address] [place] [phone] Referral ID Status Reason Start Date Expiration Date Visits Requ ested Visits Authorized [id number] Closed 03/15/2019 03/14/2020 35 35 Encounter Details Date Type Department Care Team Description 04/18/2019 Hospital Encounter Department of Radiation Bud Aguirre I., [place] [address] [facility] [address] [place] [phone] Social History Tobacco Use Types Packs/Day Years [...] do you attend denominational or Never 2018 moravian services? Do you belong to any clubs or No 02/21/2019 organizations such as denominational groups, unions, fraternal or athletic groups, or [...] Appointment Radiology Mark Eastman M.D., M.S. [address] [place] [phone] 04/26/2022 Office Visit Otorhinolaryngology Roxanne Lanza APRN, C.N.P. [address] [place] [phone] 04/28/2022 Appointment Radiation Oncology Ursula Aguirre M.D. [address] [place] [phone] documented as of this encounter Visit Diagnoses Not on filedocumented in this encounter
--- OUTSIDE RECORDS SUMMARY | 2022-03-31 14:51 | XMS_ITS | Encounter Summary ---
:1955 Author Organization [facility] Address [address] [place] [address] Care Team Providers Name Role Phone Unavailable Primary Care Provider Unavailable Reason for Visit Outpatient (Routine) - Closed Specialty Diagnoses / Procedures Referred By Contact Refer red To Contact Nutrition Diagnoses Home Enteral Nutrition Padma Vieira APRN, [facility] C.N.P., M.S. [address] [place] [phone] Referral ID Status Reason Start Date Expiration Date Visits Requ ested Visits Authorized [id number] Closed 04/11/2019 04/10/2020 1 1 Encounter Details Date Type Department Care Team Description 04/18/2019 Clinical Support Department of Chapin Vieira APRN, C.N.P., M.S. [address] [place] [phone] Home Enteral Nutrition in Emy Kuhn RDN, LD [address] [place] [phone] Nutrition [place], [place] [address] [place] [phone] Social History Tobacco Use Types Packs/Day Years [...] do you attend confucianist or Never 2018 christian services? Do you belong to any clubs [...] - Inhaled Oxygen Concentration - - Weight 83.6 kg (184 lb 4.9 04/18/2019 8:26 AM with shoe s on oz) CDT Height 166.8 cm (5' 5.67) 04/18/2019 8:26 AM with shoe s on CDT Body Mass Index 30.05 04/18/2019 8:26 AM CDT documented in this encounter Progress Notes Emy Kuhn, AYLEEN, LD - 04/18/2019 8:00 AM CDT CHIEF COMPLAINT/REASON FOR VISIT Home Enteral Nutrition Post-feeding Tube HISTORY OF PRESENT ILLNESS Mrs. 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 Radiotherapy to the supraglottic tumor initiated on March 26, 2019; anticipated date of completion is May 04, 2019.?? Recent hospitalization or ED visit: no The following portions of the patient's history were reviewed and updated as appropriate: allergies,current medications, family history, medical history, social history, surgical history and problem list. Met with patient and her daughter in law Darlin. Patient is hard of hearing and reads lips. For phonecontact Merlin (son) states, his Darlin is the one to call, . 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 ??She does not drink alcohol. Medical Tests and Procedures/Biochemical Data Swallow evaluation on 03/28/19 showed mild dysphagia. Now with side-effects of treatment she is having significant difficulty swallowing due to pain and gagging. Pertinent Labs Reviewed Nutrition Focused Physical Findings Mouth/throat/esophagus: phlegm, coughing, gagging Nausea/vomiting: none Bowels: constipated Hydration: urinating regularly, has been getting IVFs Tube Information Gastrostomy tube placed by GI 04/17/19 LEONARDO 20 Martiniquais balloon gastrostomy, ENFit connector Food/Nutrient Related History Mainly water. Continues to attempt cottage cheese, scrambled eggs, and pudding, but not able to takemuch due to gagging. Weight History Usual body weight: 230# (104.5??kg) last year, per patient 03/16/19: 88.5 kg 03/28/19: 87.7 kg 04/04/19: 86.3 kg 04/11/19: 83.5 kg 04/12/19: 82.5 kg--5.8% loss from treatment start weight ??04/18/19: 83.6 kg Height: 167 cm Estimation of Nutritional Needs using 82.5 kg (04/12/19) and 167 cm 1800 calories/day (HB basal + 20%) 85 grams protein/day (1 gram/kg) 2500 mL fluid/day (30 mL/kg) Assessment Summary Obdulia Narayan is not able to meet her nutrition or hydration needs orally due to dysphagia/side-effects of treatment. She needs tube feedings to meet her needs for several months until able to gradually resume oral intake. A feeding gastrostomy was placed yesterday. She is indicating some soreness from the procedure. She did well with handling her tube, opening it, giving a water flush and connecting the gravity feeding bag and adjusting flow. She Tolerated 125 mL of Nutren 1.5 given over 10 minutes. She denied nausea or fullness. NUTRITION DIAGNOSIS Inadequate oral intake (NI-2.1) related to side-effects of treatment as evidenced by weight loss anddiet history. Nutrition Prescription/Recommendation Formula Type: Nutren 1.5, 5 containers/day Administration Method: Intermittent gravity/syringe Infusion Schedule: 2-2-1 Water Flushes: 60 mL before and after each feeding, increase if not able to take about 3 cups water orally Additional Multivitamin: not needed, formula provides 100% At goal, this will provide a total of: 1875 calories/day, 85 g protein/day and 1250 mL of fluid/day Water flushes will provide extra fluid. Oral Program: as tolerated INTERVENTION Education Post feeding tube education with verbal and demonstration of use of syringe, water flushes, gravity feeding bag. Reviewed plan in Tube Feeding At Home book for gradually increasing to goal of 5 containers Nutren 1.5/day. Reviewed medication administration via feeding tube. Gave her a copy of the pharmacist review of her medications. Care Coordination Authorization on file to speak with DME/Infusion Company: yes DME/Infusion Company that will provide needed supplies for home: [employer] . They delivered supplies today. Indication for Ongoing Enteral Nutrition Home Enteral Nutrition, dysphagia, suqpaglottic squamous cell carcinoma. Anticipated duration of tube feedings is 12 months. This is the sole source of nutrition. MONITORING AND EVALUATION Nutrition parameter to monitor: Weight Desired Outcome: Prevent further weight loss Patient Goal(s): 1. Proceed with tube placement, begin tube feeds, continue oral intake as tolerated Follow-up Plan Patient is followed in [facility]: follow-up plan is contact per protocol. Time spent with patient (minutes): 60 documented in this encounter Plan of Treatment Upcoming Encounters Date Type Specialty Care Team Description 04/22/2022 Clinical Admitting/Central Communication Scheduling 04/26/2022 Appointment Radiology Mark Eastman M.D., M.S. [address] [place] [phone] 04/26/2022 Office Visit Otorhinolaryngology Roxanne Lanza, GENERAL SERVICE TECHNICIAN, C.N.P. [address] [place] [phone] 04/28/2022 Appointment Radiation Oncology Ursula Aguirre M.D. [address] [place] [phone] documented as of this encounter Visit Diagnoses Diagnosis Home Enteral Nutrition documented in this encounter
--- OUTSIDE RECORDS SUMMARY | 2022-03-31 14:52 | XMS_ITS | Encounter Summary ---
:1955 Author Organization [facility] Address [address] [place] [address] Care Team Providers Name Role Phone Unavailable Primary Care Provider Unavailable Reason for Referral Outpatient (Routine) - Closed Specialty Diagnoses / Procedures Referred By Contact Refer red To Contact Nutrition Diagnoses Home Enteral Nutrition Padma Vieira APRN, [facility] C.N.P., M.S. [address] [place] [phone] Referral ID Status Reason Start Date Expiration Date Visits Requ ested Visits Authorized [id number] Closed 04/11/2019 04/10/2020 [address] Pre utpatient (Routine) - Closed Specialty Diagnoses / Procedures Referred By Contact Refer red To Contact Nutrition Diagnoses Home Enteral Nutrition [facility] [address] [place] [phone] Referral ID Status Reason Start Date Expiration Date Visits Requ ested Visits Authorized [id number] Closed 04/11/2019 04/10/2020 [address] Post Specialty Diagnoses / Procedures Referred By Contact Refer red To Contact [facility] [address] [place] [phone] Referral ID Status Reason Start Date Expiration Date Visits Requ ested Visits Authorized Scheduling Instructions SUSIE COBOS Post--30 min Specialty Diagnoses / Procedures Referred By Contact Refer red To Contact [facility] [address] [place] [phone] Referral ID Status Reason Start Date Expiration Date Visits Requ ested Visits Authorized Scheduling Instructions SUSIE COBOS Pre--60 min Encounter Details Date Type Department Care Team Description 04/11/2019 Orders Only Division of Endocrinology Chad Dc Enteral Nutrition in [facility] Ashley Mendez R.N. (Primary Dx) [address] [place] [address] [place] [phone] [place], [place] [phone] Social History Tobacco Use Types Packs/Day Years Used Date Smoking Tobacco: Never Assessed Alcohol Habits Answer Date Recorded How often [...] do you attend scientology or Never 2018 gnosticist services? Do you [...] Appointment Radiology Mark Eastman M.D., M.S. [address] [place] [phone] 04/26/2022 Office Visit Otorhinolaryngology Roxanne Lanza, SUBSTANCE ABUSE PREVENTION COORDINATOR, C.N.P. [address] [place] [phone] 04/28/2022 Appointment Radiation Oncology Ursula Aguirre M.D. [address] [place] [phone] Scheduled Referrals Name Type Priority Associated Diagnoses Order S chedule Nutrition - Outpatient Referral Routine Home Enteral Expected : Pre-feeding tube Nutrition 04/11/2019 education visit (Approximate ), (clinic) Expires: 04/11/2022 Nutrition - Outpatient Referral Routine Home Enteral Expected : Post-feeding tube Nutrition 04/11/2019 education visit (Approximate ), (clinic) Expires: 04/11/2022 Nutrition - Home Outpatient Referral Routine Home Enteral Expe cted: nutrition medical Nutrition 04/11/2019 nutrition therapy (Approxima te), consult (clinic) Expires: 04/11/2022 Nutrition - Home Outpatient Referral Routine Home Enteral Expe cted: nutrition medical Nutrition 04/11/2019 nutrition therapy (Approxima te), consult (clinic) Expires: 04/11/2022 documented as of this encounter Results US Abdomen Limited (04/17/2019 [...] superior margin of the mesh Padma Vieira APRN, C.N.P., M.S. IMG US PROCEDURE S (ABNORMAL) Prothrombin Time (PT/INR) (04/17/2019 12:53 PM CDT) [facility] Method Time Signature Prothrombin 12.8 (H) 9.4 - 12.5 04/17/2019 Time, P sec 1:38 PM CDT INR 1.2 0.9 - 1.1 04/17/2019 1:38 PM CDT Comment: ----ADDITIONAL INFORMATION---- Standard intensity warfarin therapeutic range: 2.0 to 3.0 ?? High intensity warfarin therapeutic rang e: 2.5 to 3.5 Specimen Anatomical Collection Method Collection Time Receive d Time (Source) Location / / Volume Laterality Blood (Blood, 04/17/2019 12:53 04/17/2019 1:07 Venous) PM CDT PM CDT Padma Vieira APRN, C.N.P., M.S. LAB BLOOD ADD-ON Performing Organization Address City/State/ZIP Code Phon e Number [facility] - [address] [place] [phone] [facility] documented in this encounter Visit Diagnoses Diagnosis Home Enteral Nutrition - Primary Home Enteral Nutrition documented in this encounter
--- OUTSIDE RECORDS SUMMARY | 2022-03-31 14:52 | XMS_ITS | Encounter Summary ---
:1955 Author Organization [facility] Address [address] [place] [address] Care Team Providers Name Role Phone Unavailable Primary Care Provider Unavailable Encounter Details Date Type Department Care Team Description 04/13/2019 Orders Only Department of Emy Kuhn Malignan t Neoplasm Of Supraglottic (HCC) (Primary Dx); Nutrition in RDN, LD Gastrostomy Percutaneous Endoscopic Stat us Post (HCC); [place], [place] 200 [facility] Dysphagia Oropharyngeal Phase 200 [place] [phone] Social History Tobacco Use Types Packs/Day Years [...] do you attend confucianism or Never 2018 samaritan services? Do you belong to any clubs or No 02/21/2019 organizations such as confucianism groups, unions, fraternal or athletic groups, or [...] Radiology Mark Eastman M.D., M.S. [address] [place] [phone] 04/26/2022 Office Visit Otorhinolaryngology Roxanne Lanza APRN, C.N.P. [address] [place] [phone] 04/28/2022 Appointment Radiation Oncology Ursula Aguirre M.D. 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
--- OUTSIDE RECORDS SUMMARY | 2022-03-31 14:52 | XMS_ITS | Encounter Summary ---
:1955 Author Organization [facility] Address [address] [place] [address] Care Team Providers Name Role Phone Unavailable Primary Care Provider Unavailable Reason for Visit Reason Comments Scheduling Encounter Details Date Type Department Care Team Description 04/11/2019 Documentation Division of Endocrinology in Ashley Dc [place], [place] M, R.N. [address] [facility] [facility] [address] [place] [phone] [place], [place] [phone] Social History Tobacco Use Types Packs/Day Years [...] do you attend jew or Never 2018 episcopal services? Do you [...] encounter Progress Notes Ashley Dc, R.N. - 04/11/2019 2:22 PM CDT SUBJECTIVE Summer Pérez PA-C consulted the [facility] clinic about the plan of care for Ms. Narayan. The plan of care developed includes the need for a new PEG tube. Are there any comments needed for this appointment? No OBJECTIVE The indication for tube placement is: Cancer: Head and neck: Supraglottic laryngeal squamous cell carcinoma. Has the patient had a previous swallow study? Yes; on 03/28/2019. Findings: Mild oropharyngeal dysphagia. Is the patient currently receiving radiation treatments? Yes ASSESSMENT Is there any cardiovascular history? Hyperlipidemia and Hypertension Is there any GI medical history? GERD Is there any GI surgical history? Umbilical hernia repair 2010--unsure of mesh was used, US abdomen to map and samuel mesh order prior to tube placement Is there any history of abdominal hernia repair with mesh? Yes Is there any mental health history? Anxiety Is there any neuro/musculoskeletal history? Psoriatic arthritis Is there any pulmonary history? COPD Is there any history of head and neck surgery? 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 No Is the patient currently taking pain medication? Yes PLAN This procedure should be scheduled for: GI--[facility] 2 or GI--[facility] Scheduling needs include: Procedure time: Per GI Proceduralist needed: Complex Is fluoroscopy needed? No Is anesthesia needed? Yes Has the HEN Provider pre appointment been scheduled? Not yet scheduled Has the HEN Dietitan pre appointment been scheduled? Not yet scheduled Has the HEN Nurse pre appointment been scheduled? Not yet scheduled Has the HEN Dietitian post appointment been scheduled? Not yet scheduled Has the HEN Nurse post appointment been scheduled? Not yet scheduled Any additional scheduling comments? Abdominal ultrasound to be scheduled just prior to PEG tube placement to map and samuel mesh on abdomen. The patient's requested appointment dates are: First available documented in this encounter Plan of Treatment Upcoming Encounters Date Type Specialty Care Team Description 04/22/2022 Clinical Admitting/Central Communication Scheduling 04/26/2022 Appointment Radiology Mark Eastman M.D., M.S. [address] [place] [address] [phone] 04/26/2022 Office Visit Otorhinolaryngology Roxanne Lanza APRN, C.N.P. [address] [place] [phone] 04/28/2022 Appointment Radiation Oncology Ursula Aguirre M.D. [address] [place] [phone] documented as of this encounter Visit Diagnoses Not on filedocumented in this encounter
--- OUTSIDE RECORDS SUMMARY | 2022-03-31 14:52 | XMS_ITS | Encounter Summary ---
:1955 Author Organization [facility] Address [address] [place] [address] Care Team Providers Name Role Phone Unavailable Primary Care Provider Unavailable Reason for Visit Radiation Therapy (Routine) - Closed Specialty Diagnoses / Procedures Referred By Contact Refer red To Contact Diagnoses Malignant Neoplasm Of Supraglottic (HCC) Ursula Aguirre M.D. [facility] Procedures Prior Auth Rad Tx RI IMRT COMPLEX [address] [place] [address] [phone] Referral ID Status Reason Start Date Expiration Date Visits Requ ested Visits Authorized [id number] Closed 03/15/2019 03/14/2020 35 35 Encounter Details Date Type Department Care Team Description 04/10/2019 Hospital Encounter Department of Radiation Bud Aguirre I., [place] [address] [facility] [address] [place] [phone] Social History Tobacco Use Types Packs/Day Years [...] do you attend tenriism or Never 2018 zoroastrian services? Do you [...] Radiology Mark Eastman M.D., M.S. [address] [place] [phone] 04/26/2022 Office Visit Otorhinolaryngology Roxanne Lanza APRN, C.N.P. [address] [place] [phone] 04/28/2022 Appointment Radiation Oncology Ursula Aguirre M.D. [address] [place] [phone] documented as of this encounter Visit Diagnoses Not on filedocumented in this encounter
--- OUTSIDE RECORDS SUMMARY | 2022-03-31 14:52 | XMS_ITS | Encounter Summary ---
:1955 Author Organization [facility] Address [address] [place] [address] Care Team Providers Name Role Phone Unavailable Primary Care Provider Unavailable Reason for Referral Outpatient (Routine) - Closed Specialty Diagnoses / Procedures Referred By Contact Refer red To Contact Ursula Fletcher M.D. [facility] [address] [place] [phone] Referral ID Status Reason Start Date Expiration Date Visits Requ ested Visits Authorized [id number] Closed 03/15/2019 03/14/2020 1 1 Reason for Visit Outpatient (Routine) - Closed Specialty Diagnoses / Procedures Referred By Contact Refer red To Contact Ursula Fletcher M.D. [address] [phone] Referral ID Status Reason Start Date Expiration Date Visits Requ ested Visits Authorized [id number] Closed 03/15/2019 03/14/2020 1 1 Encounter Details Date Type Department Care Team Description 04/12/2019 Hospital Encounter Department of Mary Aguirre M.D. [address] [place] [phone] Malignant Neoplasm Of Radiation Oncology Ibeth Vanessa Supraglottic (HCC) in [place], [place] [address] [place] [phone] Social History Tobacco Use Types [...] do you attend jain or Never 2018 amish services? Do you [...] (twelve) hours. documented as of this encounter Consult Notes Ibeth Vanessa - 04/12/2019 11:09 AM CDT Psychosocial Assessment SUBJECTIVE DEMOGRAPHIC INFORMATION Referral by: Ursula Aguirre MD Person(s) present during interview: Patient Obdulia Narayan, and her son Rolando Narayan. Primary care clinic and provider: No primary care provider on file. 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 Radiation therapy was initiated on 03/26/19, with an anticipated completion on 04/24/19. No past medical history on file. No past surgical history on file. SOCIAL HISTORY Early growth and development: The patient met social and developmental milestones as expected. Family of Origin: Mrs. Narayan grew [place] and lived there until 1 year ago. Marital Status / Family / Household Status: Household information: Number of persons in household: 3 Relationships of persons in household: Patient, her son and his . Type of housing: Private residence, belonging to her son and [id number]. Support Systems: Family Primary caregiver: Sage Narayan, her son, and Darlin Narayan, her [id number]. We have received permission to contact them. Spirituality / Scientologist / Culture: No anglican on file Employment: Not working - disabled. 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 Abuse, Neglect, Maltreatment, Trauma: Current: None reported. Past: None reported. ENVIRONMENTAL SUPPORTS Current Living Situation: Mrs. Narayan lives with her son and ejzapsel-zj-sgm in their home in [place], [place]. However, during her radiation therapy she is staying in [place] with her son Rolando and his children, ages 9-15. Patient's Home Environment: No safety concerns. Anticipated modifications to the patient's home environment: None FUNCTIONAL STATUS (ADL's and IADL's) Patient is independent in many activities, but depends on her family for transportation, meal preparation, and general assistance. She will have a feeding tube inserted tomorrow, and will have family help in managing it. FINANCES/INSURANCE Primary insurance: [facility] PLUS HMO Secondary insurance: N/A ADVANCE DIRECTIVES Mrs. Narayan does not have a completed health care directive on file with [facility]. This was not discussed today. OBJECTIVE MENTAL HEALTH Mental Health History: Patient reports no mental health history and no current concerns Mental Status Exam: Appearance: Dressed appropriately in street clothing. Well groomed. Good eye contact. Appears statedage. Behavior: Calm and interactive. Cooperation: Cooperative and forthcoming. Appears reliable. Consciousness/Orientation: Alert and oriented to person, place and time. Memory/Attention: Conversationally intact. Fund of knowledge: Consistent with education and experiences as evidenced by vocabulary. Insight: Good. Judgment: Good. Safety: Denies current suicidal or homicidal ideation. No safety concerns. Motivation to pursue treatment: Good. SUBSTANCE USE Tobacco: yes - Patient has a 40-year history of smoking, but has cut back from 2-1/2 packs at the peak of her history to 5 cigarettes a day currently. Current Stressors: Normal stressors associated with cancer diagnosis and treatment, augmented by hearing difficulties. Coping skills/strengths: Family support Discussion: Mrs. Obdulia Narayan, along with her son Sage, met with this social work coordinator today for an initial social work consult and psychosocial assessment. She was generous in sharing her overall life context and current experience with radiation therapy. She lived in [place] until 1 year ago, when she moved to [place] to be closer to her sons. She lives with one son in [place], but during the weeks that she is undergoing radiation therapy, she stays with her son in [place]. She has significant hearing impairment from a childhood illness of Rubella, but is adept at reading lips. Her son helps make sure good communication is happening. Because she has available and attentive family assistance andsupport, she states she is not currently in need of any additional resources or information. She wasreceptive to the packet of information offered and she and her family intend to review the materials. IMPRESSION Mrs. Narayan, with assistance from her attentive family members, understands her diagnosis, prognosis and recommended treatment, and demonstrates motivation to comply with her treatment plan. She has significant hearing impairment, and while she is able to read lips, does depend partically on her family to communicate her wishes, questions, and concerns. Her family members are careful to make sure she understands questions and options, and choose for herself. INTERVENTIONS Introduction to medical social work services, assessment of coping, support, and resources, reflective listening, and supportive counseling were provided. Patient is coping as well as possible with treatment, although with complications, and is very well-supported by family and community resources. At present, she identifies no gaps in resources or need for added services, assistance, or information.She and her family are aware of the availability of social work assistance throughout radiation treatment, and how to request this assistance if any needs or concerns arise. PLAN Written materials regarding medical social work services, online information and support resources, adjustment/coping with treatment, and caregiving were provided. Anticipated barriers: Communication barriers; however, with family support this is minimized. Face to face time (for billing purposes) 20 minutes total time Ibeth Vanessa 04/12/2019 documented in this encounter Plan of Treatment Upcoming Encounters Date Type Specialty Care Team Description 04/22/2022 Clinical Admitting/Central Communication Scheduling 04/26/2022 Appointment Radiology Mark Eastman M.D., M.S. [address] [place] [phone] 04/26/2022 Office Visit Otorhinolaryngology Roxanne Lanza APRN, C.N.P. [address] [place] [address] [phone] 04/28/2022 Appointment Radiation Oncology Ursula Aguirre M.D. [address] [place] [address] [phone] Scheduled Referrals Name Type Priority Associated Diagnoses Order S [facility] Social Work Outpatient Referral Routine Once for 1 office visit Occurrences sta rting (clinic) 04/12/2019 unti l 04/12/2019 documented as of this encounter Visit Diagnoses Diagnosis Malignant Neoplasm Of Supraglottic (HCC) documented in this encounter
--- OUTSIDE RECORDS SUMMARY | 2022-03-31 14:52 | XMS_ITS | Encounter Summary ---
:1955 Author Organization [facility] Address [address] [place] [address] Care Team Providers Name Role Phone Unavailable Primary Care Provider Unavailable Reason for Visit Reason Comments Appointment Encounter Details Date Type Department Care Team Description 04/13/2019 Clinical Support Division of Chapin Vieira APRN, C.N.P., M.S. [address] [place] [address] [phone] [facility]. [address] [place] [address] [phone] Nutrition [place], [place] [address] [place] [address] [phone] Social History Tobacco Use Types Packs/Day Years [...] or relatives? How often do you attend worship or Never 2018 scientology services? Do you belong to any clubs or No 02/21/2019 organizations such as worship groups, unions, fraternal or athletic groups, or [...] encounter Progress Notes Dolores Lucio R.N. - 04/13/2019 1:30 PM CDT SUBJECTIVE REASON FOR VISIT Ms. Narayan was seen in the Home Enteral Nutrition clinic today for a new PEG tube. OBJECTIVE The indication for tube placement is Cancer: Head and neck: supraglottic laryngeal. Has the patient had a previous swallow study? Yes; on 03/28. Findings: mild oropharyngeal dysphagia. ASSESSMENT Select last menstrual cycle: Menopausal Is the patient currently ? No Is the patient currently ? No What is the status of patient's lips? Smooth, pink, moist, intact What is the status of patient's tongue? Smooth, pink, moist, intact What is the status of patient's gingiva/oral mucosa? Smooth, pink, moist, intact What is the status of patient's mouth? Clean, no debris What is the status of patient's teeth? Dentures (upper and lower) What is the status of patient's saliva? Thick and ropy, viscid or mucoid Does the patient have any current GI issues? No current issues Does the patient have any skin issues? scab on right knee Does the patient use an assistive device such as a cane, walker, wheelchair, crutches or braces? Yes Is the patient currently receiving radiation treatments? Is there any history of abdominal surgery? Yes-abdominal hernia Is there any history of abdominal hernia repair with mesh? Yes-2010 Is there any history of head and neck surgery? No What is the patient's relationship status? Who does the patient live with? Family What is the patient's current work status? Retired Does the patient use tobacco? Past-quit 1 month ago Does the patient use alcohol? None Does the patient use recreational substances? No What is the patient's activity level? Wheelchair Is there suspected abuse/neglect? No PLAN Were pre procedural instructions given? Yes. Eating and drinking [...] understanding and agreement with the procedural instructions. Were post procedural instructions given? Yes. Post-procedural instructions including reporting of increased pain, temperature greater than or equal to 100.4 or excessive drainage at site. Patient is not to bathe or shower, change the dressing or begin the tube feedings until instructed by the providerat the post procedure visit. Patient may resume oral intake following the procedure per provider recommendations. Anesthesia considerations are: COPD, Head of neck cancer associated with radiation, Narcotics and Tobacco use (past) Does the patient have positioning consideration? None Is the patient currently taking any anticoagulation medication? No Is the patient currently taking any neoplastic medication? No Is the patient currently taking pain medication? Yes Is the patient diabetic? No Is the patient receiving dialysis? No Select where the procedure is scheduled? Date: 04/17, Time: 1400 and Location: [place] [address]. Tube education provided: GI: Both tube types, bumper and balloon, along with both placement/procedure types, Pull through and Solitario, were demonstrated and discussed with patient. The final decision on tube type and anesthesia will be made by the endoscopist and/or anesthesia provider. Patient is aware of the possibility that placement may be unsuccessful if it cannot be done safely Has INR testing been performed? Scheduled: Date 04/17 at 1240 Has the [facility] Nurse post procedure appointment been scheduled? Yes; Date 04/18 at 0800 Has the [facility] Dietitian post procedure appointment been scheduled? Yes; Date 04/18 at 1000 *Patient has an US ordered for 04/17 at 1300 to map and samuel mesh from her umbilical hernia surgery. *Her son commented on her having an abdominal aneurysm and a ulcer by her heart, I have not seen anydocumentation on either of these. *I discussed both ways a tube can be placed in GI and showed them what both tubes look like. Patientis hard of hearing and so I did not go into all details for both tubes. When I see her for her post on 04/18, I will go into more detail based on what tube she has. documented in this encounter Plan of Treatment Upcoming Encounters Date Type Specialty Care Team Description 04/22/2022 Clinical Admitting/Central Communication Scheduling 04/26/2022 Appointment Radiology Mark Eastman M.D., M.S. [address] [place] [phone] 04/26/2022 Office Visit Otorhinolaryngology Roxanne Lanza APRN, C.N.P. [address] [place] [phone] 04/28/2022 Appointment Radiation Oncology Ursula Aguirre M.D. [address] [place] [phone] documented as of this encounter Visit Diagnoses Diagnosis Home Enteral Nutrition documented in this encounter
--- OUTSIDE RECORDS SUMMARY | 2022-03-31 14:52 | XMS_ITS | Encounter Summary ---
:1955 Author Organization [facility] Address [address] [place] [address] Care Team Providers Name Role Phone Unavailable Primary Care Provider Unavailable Reason for Visit Outpatient (Routine) - Closed Specialty Diagnoses / Procedures Referred By Contact Refer red To Contact Nutrition Diagnoses Home Enteral Nutrition Padma Vieira APRN, [facility] C.N.P., M.S. [address] [place] [address] [phone] Referral ID Status Reason Start Date Expiration Date Visits Requ ested Visits Authorized [id number] Closed 04/11/2019 04/10/2020 1 1 Encounter Details Date Type Department Care Team Description 04/13/2019 Clinical Support Department of Chapin Vieira APRN, C.N.P., M.S. [address] [place] [phone] Home Enteral Nutrition in Emy Kuhn RDN, LD [address] [place] [phone] Nutrition [place], [place] [address] [place] [address] [phone] Social History Tobacco Use Types Packs/Day Years [...] do you attend taoist or Never 2018 restoration services? Do you [...] as of this encounter Progress Notes Emy Kuhn, AYLEEN, LD - 04/13/2019 9:00 AM CDT CHIEF COMPLAINT/REASON FOR VISIT Home Enteral Nutrition Pre-feeding Tube HISTORY OF PRESENT ILLNESS Mrs. Obdulia [...] problem list. Met with patient and her son Merlin. She is hard of hearing and reads lips. For phone contact Merlin states, his Darlin is the one to call, . 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 Continues to attempt cottage cheese, scrambled eggs, and pudding, but not able to takemuch due to gagging. Weight History Usual body weight: 230# (104.5??kg) last year, per patient 03/16/19: 88.5 kg 03/28/19: 87.7 kg 04/04/19: 86.3 kg 04/11/19: 83.5 kg 04/12/19: 82.5 kg--5.8% loss from treatment start weight ?? Height: 167 cm Estimation of Nutritional Needs [...] months until able to gradually resume oral intake NUTRITION DIAGNOSIS Inadequate oral intake (NI-2.1) related [...] fluid. Oral Program: as tolerated INTERVENTION Education Pre-feeding tube education: estimate of coverage for supplies, DME supply company options, overview of tube, syringe flushes, gravity feeding method, calorie and protein needs, fluid needs Care Coordination Authorization on file to speak with DME/Infusion Company: yes DME/Infusion Company that will provide needed supplies for home: [facility] - will send referral today. Indication for Ongoing Enteral Nutrition Home [...] Patient is followed in H[facility] Clinic at [facility]: follow-up plan is to see for post feeding tube placement appointments and monitor and evaluate as needed. Time spent with patient (minutes): 45 documented in this encounter Plan of Treatment Upcoming Encounters Date Type Specialty Care Team Description 04/22/2022 Clinical Admitting/Central Communication Scheduling 04/26/2022 Appointment Radiology Mark Eastman M.D., M.S. [address] [place] [phone] 04/26/2022 Office Visit Otorhinolaryngology Roxanne Lanza APRN, C.N.P. [address] [place] [address] [phone] 04/28/2022 Appointment Radiation Oncology Ursula Aguirre M.D. [address] [place] [address] [phone] documented as of this encounter Visit Diagnoses Diagnosis Home Enteral Nutrition documented in this encounter
--- OUTSIDE RECORDS SUMMARY | 2022-03-31 14:52 | XMS_ITS | Encounter Summary ---
:1955 Author Organization [facility] Address [address] [place] [address] Care Team Providers Name Role Phone Unavailable Primary Care Provider Unavailable Reason for Referral Outpatient (Routine) - Closed Specialty Diagnoses / Procedures Referred By Contact Refer red To Contact Diagnoses Malignant Neoplasm Of Supraglottic (HCC) Summer Pérez P.A.-C., [facility] Procedures Percutaneous Endoscopic Gastrostomy M.S. [address] [place] [address] Referral ID Status Reason Start Date Expiration Date Visits Requ ested Visits Authorized [id number] Closed 04/11/2019 04/10/2020 1 1 Reason for Visit Auth/Cert Specialty Diagnoses / Procedures Referred By Contact Refer red To Contact Diagnoses Malignant Neoplasm Of Supraglottic (HCC) Procedures EGD ? PERCUTANEOUS ENDOSCOPIC GASTROSTOMY/JEJUNOSTOMY Referral ID Status Reason Start Date Expiration Date Visits Requ ested Visits Authorized [id number] 1 1 Encounter Details Date Type Department Care Team Description 04/17/2019 Hospital Encounter Division of Summer Pérez Malignant Neoplasm Gastroenterology in [place], Of Supra glottic [place], [place] M.S. (HCC) [address] [facility] [address] [place] [address] [place] [phone] Social History Tobacco Use Types Packs/Day Years [...] do you attend baptist or Never 2018 rastafarian services? Do you belong to any clubs or No 02/21/2019 organizations such as baptist groups, unions, [id number] or athletic groups, or school groups? How [...] Sign Reading Time Taken Comments Blood Pressure 139/88 04/17/2019 6:30 PM CDT Pulse 108 04/17/2019 6:30 PM CDT Temperature 37 ??C (98.6 ??F) 04/17/2019 6:30 PM CDT Respiratory Rate 14 04/17/2019 6:30 PM CDT Oxygen Saturation 95% 04/17/2019 6:30 PM CDT Inhaled Oxygen Concentration - - Weight 83.5 kg (184 lb 1.4 oz) 04/17/2019 7:16 AM CDT Height - - Body Mass Index 29.94 03/29/2019 3:17 PM CDT documented in this encounter Medications at [...] Radiology Mark Eastman M.D., M.S. [address] [place] [phone] 04/26/2022 Office Visit Otorhinolaryngology Roxanne Lanza, IRONER MACHINE, C.N.P. [address] [place] [phone] 04/28/2022 Appointment Radiation Oncology Ursula Aguirre M.D. [address] [place] [address] documented as of this encounter Procedures Procedure Name Priority Date/Time Associated Diagnosis Comme nts GLUCOSE POCT, B Routine 04/17/2019 5:40 PM Result s for this CDT procedure are i n the results section. ADULT OXYGEN THERAPY Routine 04/17/2019 5:38 PM CDT UPPER GI ENDOSCOPY Routine 04/17/2019 3:32 PM Malignant Neopla sm Results for this CDT Of Supraglottic procedure ar e in (HCC) the results section. EGD ? Routine 04/17/2019 3:32 PM Malignant Neoplasm PERCUTANEOUS CDT Of Supraglottic ENDOSCOPIC (HCC) GASTROSTOMY/JEJUNOSTO MY documented in this encounter Results Glucose, POCT (04/17/2019 5:40 PM CDT) P athologist Signature Glucose, POCT, 85 70 - 140 04/17/2019 B mg/dL 5:59 PM CDT Specimen Anatomical Collection Method Collection Time Receive d Time (Source) Location / / Volume Laterality Blood 04/17/2019 5:40 PM 9 5:59 CDT PM CDT Unknown Provider LAB POCT ORDERABLES-MANUAL Performing Organization Address City/State/ZIP Code Phon e Number POC [facility] [address] [place] [address] Upper GI Endoscopy (04/17/2019 3:32 PM CDT) Specimen (Source) Anatomical Collection Method Collection Time Re ceived Time Location / / Volume Laterality 04/17/2019 3:32 PM CDT Impressions [facility] - 04/17/2019 4:58 PM CDT Post-op Diagnoses: ? - Normal stomach. ? - Normal examined duodenum. ? - No specimens collected. Narrative [facility] - 04/17/2019 4:58 PM CDT [facility] 6 GI GI Patient Name: Obdulia Narayan Date of : 1955 Age: 63 Gender: Female Procedure Date: 04/17/2019 Procedure: ? Upper GI endoscopy Providers: ? Carmen Long MD, EJ Swanson ? (Fe llow) Referring Provider: ?Summer salinas Pre-op Diagnoses: ?Dysphagia, Malnutrition, Weight loss Recommendation: ? - T-fastner and G tube instructio ns ? T-fasteners are used to keep abdominal wall and stomach wall together ? while PEG site heals ? If fasteners are causing discomfort may be removed at 2 weeks. ? T-fasteners are designed to fall off by 6 weeks, if this does not ? happen can be removed at that josé miguel e ? If there is one T-fasteners causing discomfort prior to the 2 week ? please call [phone] for inst ructions ? T-fasteners are removed by cutting suture under the button. ? Inner part of T-fastener should eventually pass in stool ? May use tube in 4 hours ? Tube will need to be replaced in 3 months (sooner if needed) ? If at anytime questions or concer ns related to PEG site, tube or ? T-fasteners or T ? ??fastener site call [phone] Tuesday ? ??Tuesday ? am-4:30 pm or after hours, weeken ds, holidays call [facility] finish rolls operator ? [phone] ask them to page [phone] and wait for MD to answer. May ? need to repeat call if they don? ??t answer they could be busy doing ? procedure ? - T-fastner and G tube instructio ns ? T-fasteners are used to keep abdominal wall and stomach wall together ? while PEG site heals ? If fasteners are causing discomfort may be removed at 2 weeks. ? T-fasteners are designed to fall off by 6 weeks, if this does not ? happen can be removed at that josé miguel e ? If there is one T-fasteners causing discomfort prior to the 2 week ? please call [phone] for inst ructions ? T-fasteners are removed by cutting suture under the button. ? Inner part of T-fastener should eventually pass in stool ? May use tube in 4 hours ? Tube will need to be replaced in 3 months (sooner if needed) ? If at anytime questions or concer ns related to PEG site, tube or ? T-fasteners or T ? ??fastener site call [phone] Tuesday-Tuesday; ? am-4:30 pm or after hours, weeken ds, holidays call [facility] finish rolls operator ? [phone] ask them to page [phone] and wait for MD to answer. May ? need to repeat call if they don't answer they could be busy Findings: ? The entire examined stomach was n ormal. The patient was placed in the ? supine position for PEG placement . The stomach was insufflated to appose ? gastric and abdominal ganies. A si te was located in the body of the ? stomach with excellent transillum ination and manual external pressure ? for placement. The abdominal wall was marked and prepped in a sterile ? manner. Three T-fastners were carmen zaida to keep gastric and abdominal gaines ? apposed. The area was anesthetize d with 1 mL of 1% lidocaine. A skin ? incision was made at the site of needle insertion. The trocar needle was ? introduced through the abdominal wall and into the stomach under direct ? endoscopic view. A snare was intr oduced through the endoscope and opened ? in the gastric lumen. The guide w janey was passed through the trocar and ? into the open snare. The snare wa s closed around the guide wire. Gradual ? dilation of the tract was achieve d using AMT IP kit. The externally ? removable 18 Fr AMT gastrostomy t ube was lubricated. The G-tube was ? passed over the guide wire throug h the sheath, and into the stomach and ? the balloon was instilled with 8c c of normal saline. The wire and the ? peel away sheath were removed. Th e final position of the gastrostomy ? tube was confirmed by relook endo scopy, and skin marking noted to be 3.5 ? cm at the external bumper. The fi nal tension and compression of the ? abdominal wall by the PEG tube an d external bumper were checked and ? revealed that the bumper was loos e and lightly touching the skin. The ? feeding tube was capped, and the tube site was cleaned and dressed. ? The examined duodenum was normal. Procedural Details: ? The patient was seen, [...] oxygen saturations ? were monitored continuously. The Gastroscope was introduced under direct ? vision through the mouth, and adv anced to the second part of duodenum. ? The upper GI endoscopy was accomp lished without difficulty. The patient ? tolerated the procedure well. Complications: ? No immedia te complications. Sedation: ? Anesthesia was administered by an anesthesia professional. The following ? parameters were monitored: oxygen saturation, heart rate, blood ? pressure, respiratory rate, EKG, adequacy of pulmonary ventilation, and ? response to care. Attending Participation: I personally pe rformed the entire procedure. Isauro Long MD 04/17/2019 4:57:56 PM This report has been signed electronical ly. Number of Addenda: 0 Summer Pérez P.A.-C., M.S. GI PROCEDURE ORDERABLES Performing Organization Address City/State/ZIP Code Phon e Number [facility] documented in this encounter Visit Diagnoses Diagnosis Malignant Neoplasm Of Supraglottic (HCC) documented in this encounter Administered Medications Inactive Administered Medications - up to 3 most recent administrations Medication Order MAR Action Action Date Dose Rate Site fentaNYL injection 25 mcg Given 04/17/2019 6:05 PM CDT 25 mcg (SUBLIMAZE) 25 mcg, intravenous, Every 2 min PRN, moderate pain or score 4-6 of 10, severe pain or score 7-10 of 10, Starting on Tue04/17/19 at 1738, PACU (only), Up to maximum total dose of 200 mcg Given 04/17/2019 5:48 PM CDT 25 mcg lactated ringers Continued from OR 04/17/2019 5:50 PM CDT 50 mL/hr 50 mL/hr 50 mL/hr, intravenous, Continuous, Starting on Tue04/17/19 at 1730, PACU & Post-Op documented in this encounter Active and Recently Administered Medications Times are shown in CDT. Scheduled Medication Order 04/15/2019 04/16/2019 04/17/2019 vancomycin 1000 mg in NaCl 0.9% 250 mL (VANCOCIN) IVPB (COMPLETE D) 1510 (Given - Provider: Anisa Woods, IRONER MACHINE, SUPERVISOR [employer]URNITURE ASSEMBLY) 1,000 mg (rounded from 1,029 mg = 15 mg/ kg ? 68.6 kg Adjusted weight), intravenous, at 260 mL/hr, Administer over 60 Minutes, Once, On Tue04/17/19 at 1445, For 1 dose, Pre-Op, Administered in the proced ural room within 60-120 minutes prior to puncture/incision. Recommended infusion should be at least half infused prior to start of incision. premix bag, Drug Monitoring Program: Pharmacist to adjust med ication dosing based on indication and d rug clearance factors., Indications: Prophylaxis, surgical Continuous Medication Order 04/15/2019 04/16/2019 04/17/2019 lactated ringers 1750 (Continued from OR - Provider: Summer Conner RLanny) 50 mL/hr, intravenous, Continuous, Start ing on Tue04/17/19 at 1730, PACU & Post-Op PRN Medication Order 04/15/2019 04/16/2019 04/17/2019 fentaNYL injection 25 mcg (SUBLIMAZE) 1748 (Given - Provider: Summer Conner RLanny)1805 (Given - Provider: Summer Conner R.N.) 25 mcg, intravenous, Every 2 min PRN, mo derate pain or score 4-6 of 10, severe pain or score 7-10 of 10, Starting on Tue04/17/19 at 1738, PACU (only), Up to maximum total dose of 200 mcg granisetron (PF) injection 1 mg (KYTRIL) 1 mg, intravenous, Once as needed, nause a, vomiting, Starting Tue04/17/19 at 1738, For 1 dose, PACU (only), If patient does not respond to ondansetron or droperidol. (order of antiemetic administration - ondansetron then droperidol then granisetron) ondansetron (PF) injection 4 mg (ZOFRAN) 4 mg, intravenous, Every 6 hours PRN, na usea, vomiting, (check to see if given intra-op), Starting Tue04/17/19 at 1738, For 48 hours, PACU (only), Administer first. If nausea and vomiting persists, move to droperidol. (order of antiemetic admi nistration - ondansetron then droperidol then granisetron) documented in this encounter
--- OUTSIDE RECORDS SUMMARY | 2022-03-31 14:52 | XMS_ITS | Encounter Summary ---
:1955 Author Organization [facility] Address [address] [place] [address] Care Team Providers Name Role Phone Unavailable Primary Care Provider Unavailable Reason for Referral Outpatient (Routine) - Closed Specialty Diagnoses / Procedures Referred By Contact Refer red To Contact Diagnoses Malignant Neoplasm Of Supraglottic (HCC) Dehydration Jose Schultz M.D. [facility] [address] [place] [address] [phone] Referral ID Status Reason Start Date Expiration Visits Visits Date Requested Authorized [id number] Closed Patient 04/11/2019 04/10/2020 1 1 Preference Medication Prior Authorization (Routine) - Authorized Specialty Diagnoses / Procedures Referred By Contact Refer red To Contact Jose Schultz M .D. [address] [place] [phone] Referral ID Status Reason Start Date Expiration Date Visits V isits Requested Authorized [id number] Authorized 01/10/2019 04/12/2020 Outpatient (Routine) - Closed Specialty Diagnoses / Procedures Referred By Contact Tyler agarwal To Contact Endocrinology Diagnoses Malignant Neoplasm Of Supraglottic (HCC) Summer Pérez P.A.-C., [facility] [address] [place] [phone] Referral ID Status Reason Start Date Expiration Date Visits Requ ested Visits Authorized [id number] Closed 04/11/2019 04/10/2020 1 1 Outpatient (Routine) - Closed Specialty Diagnoses / Procedures Referred By Contact Refer red To Contact Diagnoses Malignant Neoplasm Of Supraglottic (HCC) Summer Pérez P.A.-C., [facility] ion Procedures Percutaneous Endoscopic Gastrostomy M.S. [address] [place] [address] Referral ID Status Reason Start Date Expiration Date Visits Requ ested Visits Authorized [id number] Closed 04/11/2019 04/10/2020 1 1 Radiation Therapy (Routine) - Canceled Specialty Diagnoses / Procedures Referred By Contact Refer red To Contact Diagnoses Malignant Neoplasm Of Supraglottic (HCC) Ursula Aguirre M.D. [facility] Procedures Management Visit [address] [place] [address] Referral ID Status Reason Start Date Expiration Date Visits V isits Requested Authorized [id number] Canceled 03/15/2019 03/14/2020 1 1 Reason for Visit Radiation Therapy (Routine) - Canceled Specialty Diagnoses / Procedures Referred By Contact Refer red To Contact Diagnoses Malignant Neoplasm Of Supraglottic (HCC) Ursula Aguirre M.D. [facility] Region Procedures Management Visit [address] [place] [address] Referral ID Status Reason Start Date Expiration Date Visits V isits Requested Authorized [id number] Canceled 03/15/2019 03/14/2020 1 1 Encounter Details Date Type Department Care Team Description 04/11/2019 Hospital Encounter Department of Mary Aguirre M.D. [address] [place] [phone] Dehydration (Primary Dx); Radiation Oncology Jose Schultz M.D. [address] [place] [phone] Malignant Neoplasm Of Supraglottic (HCC) in [place], [place] [address] [place] [address] Social History Tobacco Use Types [...] or relatives? How often do you attend gnosticism or Never 2018 latter day services? Do you belong to any clubs or No 02/21/2019 organizations such as gnosticism groups, unions, fraternal or athletic groups, or [...] to pay for the very basics like Leviw hat hard 02/21/2019 food, housing, medical care, [...] Sign Reading Time Taken Comments Blood Pressure 124/64 04/11/2019 10:19 AM CDT Pulse 100 04/11/2019 10:19 AM CDT Temperature 36.1 ??C (97 ??F) 04/11/2019 10:15 AM CDT Respiratory Rate - - Oxygen Saturation - - Inhaled Oxygen Concentration - - Weight 83.5 kg (184 lb 1.4 oz) 04/11/2019 10:15 AM CDT Height - - Body Mass [...] mouth every 12 per tablet (twelve) hours. fentaNYL (DURAGESIC) 12 Place 1 patch on 5 patch 0 201804/26/2019 mcg/hr patchIndications: the skin every Prolonged Acute third day for 15 Pain/Traumatic Injury days Indication: Prolonged Acute Pain/Traumatic Injury. HYDROcodone-acetaminophen Take 10-15 mL by 240 mL 0 03/1604/26/2019 (HYCET) 7.5-325 mg/15 mL mouth as directed solutionIndications: Indication: Prolonged Acute Prolonged Acute Pain/Traumatic Injury Pain/Traumatic Injury. Every 4-6 hours for pain ibuprofen (ADVIL,MOTRIN) Three Times A Day 0 06/1510/22/2021 600 mg tablet as needed metFORMIN (GLUCOPHAGE) 500 Daily 0 8 10/16/2021 mg tablet potassium chloride Daily 0 04/21/20182021 (KLOR-CON M/KDUR) 20 mEq ER tablet documented as of this encounter Progress Notes Jose Schultz M.D. - 04/11/2019 11:01 AM CDT SUBJECTIVE REASON FOR VISIT Evaluation for side effects while receiving radiation treatment for 1. Dehydration 2. Malignant Neoplasm Of Supraglottic (HCC) SUPERVISED BY: Dr. 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 ??She??has received 15??of 35??fractions for a dose of 3000??cGy out of a planned totaldose of 7000??cGy. ??Her??anticipated date of completion is May 04, 2019.?? She is receiving altered fractionation treatment with twice a day treatment once weekly. She is not receiving concurrent chemotherapy.?? The patient was seen and examined today with Dr. Schultz. Patient has not been able to drink anything but water or take in any dietary intake besides jello and banana due to dysphagia. When she attempts to eat she starts to gag. She is rating her sore throat pain at a 3 out of 10. She is unable to swallow Tylenol #2 due to the dysphagia. She is taking liquidIbuprofen and liquid Tylenol. She denies fevers, chills, shortness of breath or chest pain. She doeshave a cough related to thickened secretions. She is taking liquid Mucinex. She reports regular bowel movements. She has not started lotion application to treatment area. Weight History Usual body weight: 230# (104.5??kg) last year, per patient 03/16/19: 88.5 kg 03/28/19: 87.7 kg 04/04/19: 86.3 kg 04/11/19: 83.5 kg (-5 kg, -6%) PATIENT REPORTED SYMPTOM SCREEN FATIGUE (Scale: 0 = no fatigue; 10 = worst fatigue you can imagine): 4 ?? PAIN (Scale: 0 = no pain; 10 = worst pain you can imagine): 3 ?? OVERALL QUALITY OF LIFE (Scale: 0 = as bad as can be; 10 = as good as can be): N/A OBJECTIVE BP 124/64 (BP Location: Right arm, Patient Position: Standing, Cuff Size: Small) Pulse 100 Temp 36.1 ??C (Temporal) Wt 83.5 kg BMI 29.94 kg/m? PHYSICAL EXAM General: Alert and oriented in no apparent distress. ENT: no signs of infection or mucositis with in the oral cavity. Skin: mild erythema to the mid neck area down. 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 2.?Definitive radiotherapy to the supraglottic tumor initiated on March 26, 2019; anticipated date of completion is May 04, 2019 3. ??Left facial boil, s/p incision and drainage on March 28, 2019; Bactrim initiated for 5 days onMarch 28, [address] Dr[address] Aguirre recommended that patient have feeding tube placement in [place] as soon as possible and this has been ordered. Patient is orthostatic and 1 L of 0.9 NS has been ordered byron administered at [facility] today and after 1 L if patient is still orthostatic thenshe will receive a 2nd liter. Our care team has also placed an as needed daily IV fluid order starting tomorrow and going through this coming Tuesday. Over the weekend patient can receive IV fluids as needed at the [facility] and this has been noted in today's order. Dr. Schultz has provided patient with hard copy prescription for 12 mcg Fentanyl patch and discussed with patient and family that this can cause drowsiness and constipation. He has also provided her with a hard copy prescription for liquid Hydrocodone-Tylenol as needed every 4-6 hours for breakthrough pain. Patient is not to drive while taking narcotics. Patient is to wait 30 minutes after taking liquid Hydrocodone-Tylenol before attempting to eat and drink. She has been provided multiple samples of nutritional drinks earlier this week. She is to increase her fluid and dietary intake by taking in a liquid only diet of Boosts, Scandishakes and Ensures. I will schedule management visit for this Tuesday to reassess. Dr. Aguirre will scope patient next week. Patient and her family stated a full understanding to t he plan of care going forward. She will contact us with any questions or concerns. We will continue with radiation treatment as planned. Signed by: Jannet Cross R.N. 04/11/2019 I saw and evaluated the patient and participated in the rao portions of the service. I reviewed the documentation of Jannet Cross R.N. and agree with the findings and plan. The patient appears fatigued. She has mild erythema in her neck at the midline. Oral cavity exam reveals no mucositis. She is here today with her son, Rolando. Unfortunately, the patient is having difficulty with alimentation due toodynophagia. We will start her on a fentanyl patch as well as liquid hydrocodone. She is down approximately 6% from baseline. I discussed her care with Dr. Aguirre. We both agreed that she needs a feeding tube. I discussed this with the patient and her son. They agreed. We will also set her up for daily IV fluids through the holiday weekend. She will continue with treatment as planned. Signed by: Jose Schultz M.D. 04/11/2019 5:13 PM [facility] [address] [place] [address] documented in this encounter Plan of Treatment Upcoming Encounters Date Type Specialty Care Team Description 04/22/2022 Clinical Admitting/Central Communication Scheduling 04/26/2022 Appointment Radiology Mark Eastman M.D., M.S. [address] [place] [address] 04/26/2022 Office Visit Otorhinolaryngology Roxanne Lanza APRN, C.N.P. [address] [place] [phone] 04/28/2022 Appointment Radiation Oncology Ursula Aguirre M.D. [address] [place] [address] Scheduled Orders Name Type Priority Associated Diagnoses Order S chedule Management Visit Radiation Oncology Routine Malignant Neoplasm Of Once for 1 Supraglottic (HCC) Occurrenc es starting 04/11/2019 unti l 04/11/2019 Scheduled Referrals Name Type Priority Associated Diagnoses Order S chedule Endocrinology - Home Outpatient Routine Malignant Neoplasm E xpected: enteral nutrition Referral Of Supraglottic 019 consult (clinic) ([facility]) (Approximat e), Expires: 04/11/2022 External referral Outpatient Routine Malignant Neoplasm Orde red: ancillary (non-[place]) Referral Of Supraglottic 03/16 ([facility]) Dehydration documented as of this encounter Visit Diagnoses Diagnosis Dehydration - Primary Malignant Neoplasm Of Supraglottic (HCC) documented in this encounter
--- OUTSIDE RECORDS SUMMARY | 2022-03-31 14:52 | XMS_ITS | Encounter Summary ---
:1955 Author Organization [facility] Address [address] [place] [address] Care Team Providers Name Role Phone Unavailable Primary Care Provider Unavailable Encounter Details Date Type Department Care Team Description 04/11/2019 Clinical Communication Department of Camille Orellana Radiation Oncology in [address] [place] [address] [place] [phone] Social History Tobacco Use Types Packs/Day [...] do you attend adventism or Never 2018 pentecostal services? Do you [...] Encounter - Summer Pérez P.A.-C., M.S. - 04/11/2019 1:10 PM CDT I talked to the pharmacy. They will be sending a prior authorization to the clinic through Cover My Meds. I asked them to make it an urgent request. I notified our nurse, Jannet, to be expecting this request. Summer Pérez P.A.-C. Telephone Encounter - Ayla Orellana C.Ph.T. - 04/11/2019 1:02 PM CDT Caller: Karmen Is there a valid authorization to speak with caller? No Primary Radiation Oncologist: Dr. Aguirre Reason for call: Fentanyl is not covered by the patient's insurance Phone number: [phone] Is it okay to leave a voicemail on answering machine with test results? No Pharmacy (if medication related): [facility] [id number] 150 [facility] [id number] Ayla Orellana C.Ph.T. documented in this encounter Plan of Treatment Upcoming Encounters Date Type Specialty Care Team Description 04/22/2022 Clinical Admitting/Central Communication Scheduling 04/26/2022 Appointment Radiology Mark Eastman M.D., M.S. [address] [place] [phone] 04/26/2022 Office Visit Otorhinolaryngology Roxanne Lanza, FAMILY SERVICE CASEWORKER, C.N.P. [address] [place] [phone] 04/28/2022 Appointment Radiation Oncology Ursula Aguirre M.D. [address] [place] [phone] documented as of this encounter Visit Diagnoses Not on filedocumented in this encounter
--- OUTSIDE RECORDS SUMMARY | 2022-03-31 14:52 | XMS_ITS | Encounter Summary ---
:1955 Author Organization [facility] Address [address] [place] [address] Care Team Providers Name Role Phone Unavailable Primary Care Provider Unavailable Reason for Visit Radiation Therapy (Routine) - Closed Specialty Diagnoses / Procedures Referred By Contact Refer red To Contact Diagnoses Malignant Neoplasm Of Supraglottic (HCC) Ursula Aguirre M.D. [facility] Procedures Prior Auth Rad Tx [place] IMRT COMPLEX [address] [place] [address] [phone] Referral ID Status Reason Start Date Expiration Date Visits Requ ested Visits Authorized [id number] Closed 03/15/2019 03/14/2020 35 35 Encounter Details Date Type Department Care Team Description 04/11/2019 Hospital Encounter Department of Radiation Bud Aguirre I., [place] [address] [facility] [address] [place] [phone] Social History Tobacco Use Types Packs/Day Years [...] do you attend jain or Never 2018 mosque services? Do you [...] Radiology Mark Eastman M.D., M.S. [address] [place] [address] 04/26/2022 Office Visit Otorhinolaryngology Roxanne Lanza APRN, C.N.P. [address] [place] [phone] 04/28/2022 Appointment Radiation Oncology Ursula Aguirre M.D. [address] [place] [phone] documented as of this encounter Visit Diagnoses Not on filedocumented in this encounter
--- OUTSIDE RECORDS SUMMARY | 2022-03-31 14:52 | XMS_ITS | Encounter Summary ---
:1955 Author Organization [facility] Address [address] [place] [address] Care Team Providers Name Role Phone Unavailable Primary Care Provider Unavailable Reason for Visit Radiation Therapy (Routine) - Closed Specialty Diagnoses / Procedures Referred By Contact Refer red To Contact Diagnoses Malignant Neoplasm Of Supraglottic (HCC) Ursula Aguirre M.D. [facility] Procedures Prior Auth Rad Tx [place] IMRT COMPLEX [address] [place] [phone] Referral ID Status Reason Start Date Expiration Date Visits Requ ested Visits Authorized [id number] Closed 03/15/2019 03/14/2020 35 35 Encounter Details Date Type Department Care Team Description 04/12/2019 Hospital Encounter Department of Radiation Bud Aguirre I., [place]cology [place] [address] [facility] [address] [place] [phone] Social History Tobacco Use Types Packs/Day Years [...] do you attend yazidism or Never 2018 advent services? Do you belong to any clubs [...] Appointment Radiology Mark Eastman M.D., M.S. [address] [place] [phone] 04/26/2022 Office Visit Otorhinolaryngology Roxanne Lanza APRN, C.N.P. [address] [place] [phone] 04/28/2022 Appointment Radiation Oncology Ursula Aguirre M.D. [address] [place] [phone] documented as of this encounter Visit Diagnoses Not on filedocumented in this encounter
--- OUTSIDE RECORDS SUMMARY | 2022-03-31 14:52 | XMS_ITS | Encounter Summary ---
:1955 Author Organization [facility] Address [address] [place] [address] Care Team Providers Name Role Phone Unavailable Primary Care Provider Unavailable Encounter Details Date Type Department Care Team Description 04/13/2019 Orders Only [facility] - Lin Benitez, [address] [facility] 1 A.P.N.P., R.N. [place] [phone] [place] [address] [place] [address] (Wo rk) Social History Tobacco Use Types [...] do you attend presybeterian or Never 2018 hinduism services? Do you [...] Radiology Mark Eastman M.D., M.S. [address] [place] [phone] 04/26/2022 Office Visit Otorhinolaryngology Roxanne Lanza APRN, C.N.P. [address] [place] [phone] 04/28/2022 Appointment Radiation Oncology Ursula Aguirre M.D. [address] [place] [phone] documented as of this encounter Visit Diagnoses Not on filedocumented in this encounter
--- OUTSIDE RECORDS SUMMARY | 2022-03-31 14:52 | XMS_ITS | Encounter Summary ---
:1955 Author Organization [facility] Address [address] [place] [address] Care Team Providers Name Role Phone Unavailable Primary Care Provider Unavailable Reason for Visit Radiation Therapy (Routine) - Closed Specialty Diagnoses / Procedures Referred By Contact Refer red To Contact Diagnoses Malignant Neoplasm Of Supraglottic (HCC) Ursula Aguirre M.D. [facility] Procedures Prior Auth Rad Tx [place] IMRT COMPLEX [address] [place] [phone] Referral ID Status Reason Start Date Expiration Date Visits Requ ested Visits Authorized [id number] Closed 03/15/2019 03/14/2020 35 35 Encounter Details Date Type Department Care Team Description 04/17/2019 Hospital Encounter Department of Radiation Bud Aguirre I., [place] [address] [facility] [address] [place] [phone] Social History Tobacco Use Types Packs/Day Years [...] do you attend pentecostal or Never 2018 yazdanism services? Do you [...] Radiology Mark Eastman M.D., M.S. [address] [place] [phone] 04/26/2022 Office Visit Otorhinolaryngology Roxanne Lanza APRN, C.N.P. [address] [place] [phone] 04/28/2022 Appointment Radiation Oncology Ursula Aguirre M.D. [address] [place] [phone] documented as of this encounter Visit Diagnoses Not on filedocumented in this encounter
--- OUTSIDE RECORDS SUMMARY | 2022-03-31 14:52 | XMS_ITS | Encounter Summary ---
:1955 Author Organization [facility] Address [address] [place] [address] Care Team Providers Name Role Phone Unavailable Primary Care Provider Unavailable Reason for Referral Outpatient (Routine) - Closed Specialty Diagnoses / Procedures Referred By Contact Refer red To Contact Nutrition Diagnoses Malignant Neoplasm Of Supraglottic (HCC) Summer Pérez P.A.-C., [facility] [address] [place] [phone] Referral ID Status Reason Start Date Expiration Date Visits Requ ested Visits Authorized [id number] Closed 03/29/2019 03/28/2020 1 1 Reason for Visit Outpatient (Routine) - Closed Specialty Diagnoses / Procedures Referred By Contact Refer red To Contact Nutrition Diagnoses Malignant Neoplasm Of Supraglottic (HCC) Summer [facility]érez P.A.-C., [facility] [address] [place] [phone] Referral ID Status Reason Start Date Expiration Date Visits Requ ested Visits Authorized [id number] Closed 03/29/2019 03/28/2020 1 1 Encounter Details Date Type Department Care Team Description 04/12/2019 Hospital Encounter Department of Summer Pérez P.A.-C., M.S. [address] [place] [phone] Malignant Neoplasm Of Radiation Oncology Ryanne Mcbride, JUANITO [address] [place] [address] Supraglottic (HCC) in [place], [place] [address] [place] [address] Social History Tobacco Use Types [...] do you attend mormonism or Never 2018 druze services? Do you belong to any clubs [...] (two) times a 11/1311/02/2019 mg tablet day. metFORMIN (GLUCOPHAGE) 500 [...] encounter Progress Notes Ryanne Mcbride LD - 04/12/2019 8:47 AM CDT CHIEF COMPLAINT/REASON FOR VISIT Malignant Neoplasm Of Supraglottic (HCC) (C32.1)? HISTORY OF PRESENT ILLNESS Mrs. 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 ASSESSMENT ?? 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 ??She does not drink alcohol. ? Nutrition Focused Physical Findings Mouth/esophagus/Throat: ??No mouth sores, much phlegm. Taste crappy. Bowels:??Managed with immodium use 2 times over the past week. Nausea/vomiting:??gagging with food and supplement intake attempts ?? Procedures/Labs: Swallow Evaluation 03/28/19: Diagnosis:??Mild oropharyngeal dysphagia ??Recommendations: ??1. Patient is safe to continue a general diet with thin liquids as tolerated. 2. Take small bites/sips one at a time and eat slowly. 3. Alternate solids and liquids frequently during mealtimes. 4. Perform swallow exercises as instructed. 5. Follow-up with Speech Pathology 6-weeks following completion of radiation treatment or sooner as needed. ?? Food/Nutrition Related History?? Water only by mouth at this time. Currently intake attempts of foods she enjoys like cottage cheese,pudding, scrambled eggs result in gagging reflex. The same result with attempt at nutrition supplement intake (ensure enlive, boost, scandi shake, etc). ?? Weight History Date:??03/29/19?Weight:??87.6??kg?Height 167 cm?? Body mass index is??31.4??kg/m??.?? Usual body weight: 230# (104.5??kg) last year, per patient 03/16/19: 88.5 kg 03/28/19: 87.7 kg 04/04/19: 86.3 kg 04/11/19: 83.5 kg 04/12/19: 82.5 kg--5.8% loss from treatment start weight ?? Estimation of Nutritional Needs Weight Used for Equation Calculations:??87.6??kg?Date:??03/29/19 Total Calorie Needs: 5821-4853??(HB basal 1500 basal+ 20% is 1800; adjusted body weight HB basal 1300 +20% is 1560) Estimated Protein Needs:??88??to??105??grams per day (1-1.2 g/kg) Estimated Fluid Needs: 2200??ml per day (25??ml/kg) ?? NUTRITION DIAGNOSIS Unintentional weight loss related to cancer as evidenced by??approximate 16.8??kg weight loss in thelast??year prior to treatment per patient report. ?? Food- and nutrition-related knowledge deficit??related to Cancer with??radiation??therapy??as evidenced by need for nutrition education to maintain weight and nutrition status during treatment Nutrition Diagnosis Reassessment: Ongoing ?? Nutrition Prescription/Recommendation 5633-0494??kcals, 88-105??grams protein, 9+??cups fluid ?? INTERVENTION Patient not tolerating intake besides water. Weight loss of 5.8% since start of treatment. All solids and nutrition supplements result in gagging as well as increasing phlegm. She has not attempted juices due to history of diarrhea with intake. However, she is more prone to constipation at this time. Provided samples of Ensure Clear, benecalorie and beneprotein. Discussed mixing any or all of these items with juice or water. Patient and son have patient's calorie, protein and fluid needs. Patient agreeable to try supplement samples. She will receive IV fluids again today. She has appointments scheduled in [place] tomorrow for tube feeding placement and initiation. ?? Patient's son attended appointment with patient today. ?? MONITORING AND EVALUATION: Nutrition parameter to monitor: ??Weight Desired Outcome: ??Maintain weight??start weight of 87.6 kg within 5 to 10% loss (83.2 kg/183 lbs to78.8 kg/173.4 lbs). Patient Goal(s): 1. Ensure Clear, benecalorie, beneprotein with water or juice to provide calories, protein and fluidas tolerated. 2. IV fluids as ordered 4. Tube feeding initiation in [place]. FOLLOW UP PLAN: She??will follow up next week. RDN's contact information provided and??she??was encouraged to call with questions. ?? Time spent with patient (minutes):15 documented in this encounter Plan of Treatment Upcoming Encounters Date Type Specialty Care Team Description 04/22/2022 Clinical Admitting/Central Communication Scheduling 04/26/2022 Appointment Radiology Mark Eastman M.D., M.S. [address] [place] [phone] 04/26/2022 Office Visit Otorhinolaryngology Roxanne Lazna, B2B ACCOUNT EXECUTIVE, C.N.P. [address] [place] [phone] 04/28/2022 Appointment Radiation Oncology Ursula Aguirre M.D. [address] [place] [phone] Scheduled Referrals Name Type Priority Associated Diagnoses Order S chedule Nutrition - Outpatient Referral Routine Malignant Neoplasm On ce for 1 Medical nutrition Of Supraglottic Occurre nces therapy consult (HCC) starting (clinic) until 9 documented as of this encounter Visit Diagnoses Diagnosis Malignant Neoplasm Of Supraglottic (HCC) documented in this encounter
--- OUTSIDE RECORDS SUMMARY | 2022-03-31 14:52 | XMS_ITS | Encounter Summary ---
:1955 Author Organization [facility] Address [address] [place] [address] Care Team Providers Name Role Phone Unavailable Primary Care Provider Unavailable Reason for Referral Outpatient (Routine) - Closed Specialty Diagnoses / Procedures Referred By Contact Refer red To Contact Endocrinology Diagnoses Malignant Neoplasm Of Supraglottic (HCC) Lara Castellanos [facility] AMAYA, C.N.P. [address] [place] [phone] Referral ID Status Reason Start Date Expiration Date Visits Requ ested Visits Authorized [id number] Closed 04/13/2019 04/12/2020 1 1 Scheduling Instructions With LOADING MACHINE TOOL SETTER on Tuesday Reason for Visit Outpatient (Routine) - Closed Specialty Diagnoses / Procedures Referred By Contact Refer red To Contact Endocrinology Diagnoses Malignant Neoplasm Of Supraglottic (HCC) Summer Pérez P.A.-C., [facility] M.S. 200 [place] [address] Referral ID Status Reason Start Date Expiration Date Visits Requ ested Visits Authorized [id number] Closed 04/11/2019 04/10/2020 1 1 Encounter Details Date Type Department Care Team Description 04/13/2019 Comprehensive Visit Division of Summer Pérez P.A.-C., M.S. [address] [place] [phone] Loss Weight (Primary Dx); Endocrinology in Lara CastellanosSEMAJN, C.N.P. [address] [place] [phone] Malignant Neoplasm Of Supraglottic (HCC) ; [place], [place] Odynophagia [address] [place] [phone] Social History Tobacco Use Types Packs/Day Years [...] do you attend episcopalian or Never 2018 jew services? Do you [...] documented as of this encounter Consult Notes Lara Castellanos APRN, C.N.P. - 04/13/2019 10:00 AM CDT SUBJECTIVE REASON FOR VISIT/CHIEF COMPLAINT Evaluation for new PEG tube HISTORY OF PRESENT ILLNESS Ms. Obdulia Narayan is a 63 y.o. [...] in 2010, and a tubal ligation. Ms. Narayan [facility], accompanied by her son, Merlin. She reads lips. Mrs. Narayan has been having throat pain and painful swallowing. She is also having some trouble swallowing, hard to pass down her throat. She has tried supplements such as Ensure, and even this has been difficult to swallow. She has lost about 10 pounds over the past month. Yesterday, she ate about athick 5 inch piece of watermelon and about half a cup of spaghetti with meat, grape tomatoes, onions, peppers, and tomato sauce. She drank a pack of whey protein with 8 ounces of water, a 6-oz can of V* juice. She drank 3 to 4 16-ounce bottles of water. She also had a Liter of IV fluids yesterday, andalso a Liter this morning. When she coughs, she throws up mucous sometimes. She denies reflux. She does not have nausea after eating, though. She has had some constipation, with a BM every 2 to 3 days.Her son has some Miralax, which he will give her tonight. She is and worked a variety of jobs previously. She has four sons. 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 Refer to documentation by HEN dietitian, Emy Kuhn, for further detail and specifics regarding current hydration, nutritional intake, and weight trends. The following was reviewed: Video Swallow Study 03/28/19 FINDINGS: Video swallow study performed using thin liquid barium, applesauce, and cookie consistencies. No aspiration with any consistency. Laryngeal penetration with thin liquid when clearing cookie consistency. Mild vallecular residue with cookie. Hypopharyngeal mass results in mild anterior compression of the hypopharynx. Mild cricopharyngeus muscle impression which is of doubtful clinical significance. ?? IMPRESSION: 1. No aspiration. 2. Laryngeal penetration with thin liquid when clearing cookie consistency. Speech Pathology Diagnosis: Mild oropharyngeal dysphagia ?? Recommendations: ?? 1. Patient is safe to continue a general diet with thin liquids as tolerated. 2. Take small bites/sips one at a time and eat slowly. 3. Alternate solids and liquids frequently during mealtimes. OBJECTIVE PHYSICAL EXAM General: Alert, soft voice, reads lips, responds appropriately to questions, NAD Mouth: moist mucous membranes Cardiac: S1S2 regular rhythm, no extra sounds Respiratory: Lungs CTA bilaterally Abdomen: soft, NT, significant adiposity, normoactive bowel sounds in 4 quadrants Lower extremities: no edema Musculoskeletal: Well nourished. Strength decreased at 4/5 to bilateral upper and lower extremity gross muscle groups and hand white washer strength ASSESSMENT / PLAN #1 Malignant Neoplasm Of Supraglottic (HCC) #2 Loss Weight #3 Odynophagia Mrs. Narayan is undergoing radiation therapy for a supraglottic carcinoma. Because of radiation sideeffects, she has had difficulty swallowing, with resultant low oral intake and weight loss. She would benefit from nutritional support with a gastrostomy tube, to provide nutrition, hydration, and a means for medication administration if needed. Her radiation oncologist has set up orders that she may receive IV fluids daily, if needed, until Tuesday, when she is scheduled for tube placement. We reviewed potential risks with feeding tube placement, including bleeding, damage to internal organs, infection, and pain. She will have an abdominal ultrasound prior to placement, to evaluate location of mesh used for ventral hernia repair. I anticipate that she will need the feeding tube for at least three months. She wishes to proceed with placement. Because of her cancer diagnosis, weight loss and low oral intake, she is at moderate risk for electrolyte abnormalities, once enteral feeds start. Labs will be obtained next week, prior to tube placement, and on 04/19/ and 04/20. Electrolyte repletion will be arranged accordingly. Will also provide 100 mgIV thiamine daily, for 3 doses prior to tube feed initiation. Pending electrolytes tube feeds, will be initiated slowly and advanced pending lab results and patient tolerance. Patient to monitor for lower extremity and presacral edema, shortness of breath, heart palpitations, chest pain, changes in mental status. RECOMMENDATIONS: 1. Proceed with gastrostomy tube placement Tuesday 04/17. 2. Labs to monitor for refeeding syndrome 04/17, 04/19, and 04/20. Deficiences will be repleted. 3. Thiamine 100 mg IV for 3 days, 04/17-04/19. 4. Plan for Nutren 1.5, 5 containers daily. 5. Return visit with LOADING MACHINE TOOL SETTER 04/18. Total time spent 40 minutes with greater than 50% of that time spend in counseling and care coordination This note was constructed using [employer] Direct speech recognition medical dictation system. All attempts have been made to review for accuracy however, some typographical errors may be present. documented in this encounter Plan of Treatment Upcoming Encounters Date Type Specialty Care Team Description 04/22/2022 Clinical Admitting/Central Communication Scheduling 04/26/2022 Appointment Radiology Mark Eastman M.D., M.S. [address] [place] [phone] 04/26/2022 Office Visit Otorhinolaryngology Roxanne Lanza APRN, C.N.P. [address] [place] [phone] 04/28/2022 Appointment Radiation Oncology Ursula Aguirre M.D. [address] [place] [phone] Scheduled Referrals Name Type Priority Associated Diagnoses Order S chedule Endocrinology - Home Outpatient Routine Malignant Neoplasm E xpected: enteral nutrition Referral Of Supraglottic 019 consult (clinic) ([facility]) (Approximat e), Expires: 04/13/2022 documented as of this encounter Results Magnesium (04/20/2019 9:03 AM [...] Address City/State/ZIP Code Phon e Number [facility] [address] [place] [address] LAB Phosphorus Inorganic (04/20/2019 9:03 AM CDT) athologist Signature Phosphorus 3.3 2.5 - 4.5 04/20/2019 (Inorganic), S mg/dL 10:12 PM CDT Specimen Anatomical Collection Method Collection Time Receive d Time (Source) Location / / Volume Laterality Blood (Blood, 04/20/2019 9:03 AM 04/20/20 19 9:37 Venous) CDT PM CDT Lara Castellanos APRN, C.N.PShital LAB BLOOD ADD-ON Performing Organization Address City/State/ZIP Code Phon e Number [facility] [address] [place] [address] [place] LAB Potassium (04/20/2019 9:03 AM CDT) athologist Signature Potassium, S 4.2 3.6 - 5.2 04/20/2019 mmol/L 10:19 AM CDT Specimen Anatomical Collection Method Collection Time Receive d Time (Source) Location / / Volume Laterality Blood (Blood, 04/20/2019 9:03 AM 04/20/20 19 9:11 Venous) CDT AM CDT Teresa Patel APRNNDori LAB BLOOD ADD-ON Performing Organization Address City/State/ZIP Code Phon e Number [facility] [address] [place] [address] LAB Potassium (04/19/2019 7:02 PM CDT) athologist Signature Potassium, S 4.8 3.6 - 5.2 04/19/2019 mmol/L 8:18 PM CDT Specimen Anatomical Collection Method Collection Time Receive d Time (Source) Location / / Volume Laterality Blood (Blood, 04/19/2019 7:02 PM 04/19/20 19 7:09 Venous) CDT PM CDT Teresa Patel APRNN.P. LAB BLOOD ADD-ON Performing Organization Address City/State/ZIP Code Phon e Number [facility] - [address] [place], [place] [address] [place] Phosphorus Inorganic (04/19/2019 7:02 PM CDT) athologist Signature Phosphorus 3.5 2.5 - 4.5 04/19/2019 (Inorganic), S mg/dL 8:18 PM CDT Specimen Anatomical Collection Method Collection Time Receive d Time (Source) Location / / Volume Laterality Blood (Blood, 04/19/2019 7:02 PM 04/19/20 19 7:09 Venous) CDT PM CDT Teresa Patel APRNN.PShital LAB BLOOD ADD-ON Performing Organization Address City/State/ZIP Code Phon e Number [facility] - [address] [place] [address] [place] Magnesium (04/19/2019 7:02 PM CDT) P athologist Signature Magnesium, S 1.9 1.7 - 2.3 04/19/2019 mg/dL 8:18 PM CDT Specimen Anatomical Collection Method Collection Time Receive d Time (Source) Location / / Volume Laterality Blood (Blood, 04/19/2019 7:02 PM 04/19/20 7:09 Venous) CDT PM CDT Lara Castellanos APRN, C.N.P. LAB BLOOD ADD-ON Performing Organization Address City/[facility]/ZIP Code Phon e Number [facility] - [address] [place] [phone] [place] Phosphorus Inorganic (04/17/2019 12:53 PM CDT) athologist Signature Phosphorus 3.4 2.5 - 4.5 04/17/2019 (Inorganic), S mg/dL 2:55 PM CDT Specimen Anatomical Collection Method Collection Time Receive d Time (Source) Location / / Volume Laterality Blood (Blood, 04/17/2019 12:53 04/17/2019 1:07 Venous) PM CDT PM CDT Lara Castellanos APRN, C.N.P. LAB BLOOD ADD-ON Performing Organization Address City/State/ZIP Code Phon e Number [facility] - [address] [place] [address] [place] Magnesium (04/17/2019 12:53 PM CDT) athologist Signature Magnesium, S 1.9 1.7 - 2.3 04/17/2019 mg/dL 2:55 PM CDT Specimen Anatomical Collection Method Collection Time Receive d Time (Source) Location / / Volume Laterality Blood (Blood, 04/17/2019 12:53 04/17/2019 1:07 Venous) PM CDT PM CDT Lara Castellanos APRN, C.N.P. LAB BLOOD ADD-ON Performing Organization Address City/[facility]/ZIP Code Phon e Number [facility] - [address] [place] [phone] [place] (ABNORMAL) Basic Metabolic Panel (04/17/2019 12:53 PM CDT) P athologist Signature Potassium, S 4.2 3.6 - 5.2 04/17/2019 mmol/L 2:55 PM CDT Sodium, S 135 135 - 145 04/17/2019 mmol/L 2:55 PM CDT Chloride, S 93 (L) 98 - 107 04/17/2019 mmol/L 2:55 PM CDT Bicarbonate, S 24 22 - 29 04/17/2019 mmol/L 2:55 PM CDT Anion Gap 18 (H) 7 - 15 04/17/2019 2:55 PM CDT BUN (Blood Urea 11 6 - 21 04/17/2019 Nitrogen), S mg/dL 2:55 PM CDT Creatinine, S 0.61 0.59 - 04/17/2019 1.04 mg/dL 2:55 PM CDT eGFR-Non >90 >=60 04/17/2019 Black/ mL/min/BSA 2:55 PM CDT [place] Comment: ----ADDITIONAL INFORMATION---- Estimated GFR calculated using the 2009 CKD_EPI creatinine equation. eGFR-Black/ >90 >=60 mL/min/BSA 2018 2:55 PM CDT Comment: ----ADDITIONAL INFORMATION---- Estimated GFR calculated using the 2009 CKD_EPI creatinine equation. Calcium, Total, S 9.6 8.8 - 10.2 mg/dL 04/17/2019 2:55 PM CDT Glucose, S 96 70 - 140 mg/dL 04/17/2019 2:55 PM CDT Specimen Anatomical Collection Method Collection Time Receive d Time (Source) Location / / Volume Laterality Blood (Blood, 04/17/2019 12:53 04/17/2019 1:07 Venous) PM CDT PM CDT Lara Castellanos APRN, C.N.P. LAB BLOOD ADD-ON Performing Organization Address City/State/ZIP Code Phon e Number [facility] - [address] [place], [place] [address] [place] documented in this encounter Visit Diagnoses Diagnosis Loss Weight - Primary Malignant Neoplasm Of Supraglottic (HCC) Odynophagia documented in this encounter
--- OUTSIDE RECORDS SUMMARY | 2022-03-31 14:52 | XMS_ITS | Encounter Summary ---
:1955 Author Organization [facility] Address [address] [place] [address] Care Team Providers Name Role Phone Unavailable Primary Care Provider Unavailable Reason for Referral Radiation Therapy (Routine) - Canceled Specialty Diagnoses / Procedures Referred By Contact Refer red To Contact Diagnoses Malignant Neoplasm Of Supraglottic (HCC) rUsula Aguirre M.D. [facility] Procedures Management Visit [address] [place] [phone] Referral ID Status Reason Start Date Expiration Date Visits V isits Requested Authorized [id number] Canceled 04/09/2019 04/08/2020 10 10 Reason for Visit Radiation Therapy (Routine) - Canceled Specialty Diagnoses / Procedures Referred By Contact Refer red To Contact Diagnoses Malignant Neoplasm Of Supraglottic (HCC) Ursula Aguirre M.D. [facility] Region Procedures Management Visit [address] [place] [phone] Referral ID Status Reason Start Date Expiration Date Visits V isits Requested Authorized [id number] Canceled 04/09/2019 04/08/2020 10 10 Encounter Details Date Type Department Care Team Description 04/09/2019 Hospital Encounter Department of Ursula Aguirre Neoplasm Of Radiation Oncology Kimberley Bacon Supraglottic (HCC) in [place], [address] [place], [place] [address] [facility] [phone] [place], [place] [phone] (Work) [phone] Social History Tobacco Use Types Packs/Day Years [...] do you attend scientology or Never 2018 confucianism services? Do you [...] Sign Reading Time Taken Comments Blood Pressure 126/74 04/09/2019 12:11 PM CDT Pulse 88 04/09/2019 12:11 PM CDT Temperature 36 ??C (96.8 ??F) 04/09/2019 12:11 PM CDT Respiratory Rate - - Oxygen Saturation - - Inhaled Oxygen Concentration - - Weight 84.4 kg (186 lb 1.1 oz) 04/09/2019 12:11 PM CDT Height - - Body Mass Index 30.26 03/29/2019 3:17 PM CDT documented in this encounter Medications at Time of Discharge Medication Sig Dispensed Refills Start Date End Date aspirin 81 mg chewable Chew 81 mg every 0 tablet evening. Clare Aspirin hydroCHLOROthiazide Take 25 mg by 11 02/18/2019 [...] by mouth 2 (two) times a day. ibuprofen (ADVIL,MOTRIN) Take 600 mg by 0 [...] Radiology Mark Eastman M.D., M.S. [address] [place] [phone] 04/26/2022 Office Visit Otorhinolaryngology Roxanne Lanza, BRAIN SURGEON, C.N.P. [address] [place] [phone] 04/28/2022 Appointment Radiation Oncology Ursula Aguirre M.D. [address] [place] [address] Scheduled Orders Name Type Priority Associated Diagnoses Order S chedule Management Visit Radiation Oncology Routine Malignant Neoplasm Of Once for 1 Supraglottic (HCC) Occurrenc es starting 04/09/2019 unti l 04/09/2019 documented as of this encounter Visit Diagnoses Diagnosis Malignant Neoplasm Of Supraglottic (HCC) documented in this encounter
--- OUTSIDE RECORDS SUMMARY | 2022-03-31 14:52 | XMS_ITS | Encounter Summary ---
:1955 Author Organization [facility] Address [address] [place] [address] Care Team Providers Name Role Phone Unavailable Primary Care Provider Unavailable Reason for Referral Outpatient (Routine) - Canceled Specialty Diagnoses / Procedures Referred By Contact Refer red To Contact Radiation Oncology Diagnoses Malignant Neoplasm Of Supraglottic (HCC) Ursula Aguirre [facility] [place] [facility] M.D. 200 [place] [address] Referral ID Status Reason Start Date Expiration Date Visits V isits Requested Authorized [id number] Canceled 03/15/2019 03/14/2020 1 1 Reason for Visit Outpatient (Routine) - Canceled Specialty Diagnoses / Procedures Referred By Contact Refer red To Contact Radiation Oncology Diagnoses Malignant Neoplasm Of Supraglottic (HCC) Ursula Aguirre [facility] [place] [facility] M.D. 200 [place] [address] Referral ID Status Reason Start Date Expiration Date Visits V isits Requested Authorized [id number] Canceled 03/15/2019 03/14/2020 1 1 Encounter Details Date Type Department Care Team Description 04/09/2019 Hospital Encounter Department of Mary Aguirre M.D. [address] [place] [phone] Malignant Neoplasm Of Radiation Oncology Jannet Cross R.N. 200 [place] [address] Supraglottic (HCC) in [place], [place] [address] [place] [phone] Social History Tobacco Use Types Packs/Day Years [...] do you attend taoism or Never 2018 islam services? Do you belong to any clubs [...] Time Taken Comments Blood Pressure 126/74 04/09/2019 12:00 PM CDT Pulse 88 04/09/2019 12:00 PM CDT Temperature 36 ??C (96.8 ??F) 04/09/2019 12:00 PM CDT Respiratory Rate - - Oxygen Saturation - - Inhaled Oxygen Concentration - - Weight 84.4 kg (186 lb 1.1 oz) 04/09/2019 12:00 PM CDT Height - - Body Mass [...] encounter Progress Notes Jannet Cross R.N. - 04/09/2019 3:36 PM CDT SUBJECTIVE REASON FOR VISIT Evaluation for side effects while receiving radiation treatment for 1. 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 ??She??has received 13??of 35??fractions for a dose of 2600??cGy out of a planned totaldose of 7000??cGy. ??Her??anticipated date of completion is May 04, 2019.??She is receiving altered fractionation treatment with twice a day treatment once weekly. She will not be receiving concurrent chemotherapy.?? Patient reports that she had episodes of vomiting this weekend related to her thickened phlegm and frequent coughing. She did not start liquid Mucinex. Therefore she had a poor intake of dietary intakeover the weekend. She is rating her sore throat pain at a 7 out of 10. She has been managing her pain with Tylenol and Ibuprofen and did not start her Tylenol #2 prescription yet. She lost her voice over the weekend. She has had small to larger amounts of hemoptysis. She fell a week ago but did not hit her head or sustain any type of injury. She continues to experience left ear pain. She has not started using a humidifier. Her daughter in law is requesting prescriptions for both adult depends and liquid Mucinex. Patient denies fevers, chills or shortness of breath. OBJECTIVE BP 126/74 Pulse 88 Temp 36 ??C Wt 84.4 kg BMI 30.26 kg/m? PHYSICAL EXAM General: Alert and oriented in no apparent distress. ASSESSMENT / PLAN I reviewed patient's concerns and symptoms with Dr. Aguirre today. Patient is to start Tylenol #2 immediately and then can be alternate with 600 mg of Ibuprofen every 3 hours. Patient is not to exceed 4000 mg of Tylenol a day. She is to wait 30 minutes after taking pain medications prior to eating and drinking. Liquid guaifenesin is to be taken up to every 4 hours as needed for the management of thickened secretions. Humidifier is to be used at her bedside table. I have provided her hard copy prescriptions for both adult depends for chronic urinary stress incontinence and liquid Mucinex today. If patient's symptoms are not improving she is to contact our care team. Additional samples of nutritional drinks were provided to patient today. Patient and her family stated a full understanding to the plan of care going forward. We will reassess this Tuesday in management visit. She will contact us with any questions or concerns. We will continue with radiation treatment as planned. Signed by: Jannet Cross R.N. 04/09/2019 9:57 AM documented in this encounter Plan of Treatment Upcoming Encounters Date Type Specialty Care Team Description 04/22/2022 Clinical Admitting/Central Communication Scheduling 04/26/2022 Appointment Radiology Mark Eastman M.D., M.S. [address] [place] [phone] 04/26/2022 Office Visit Otorhinolaryngology Roxanne Lanza, [employer] SALES BEAUTY ADVISOR, C.N.P. [address] [place] [phone] 04/28/2022 Appointment Radiation Oncology Ursula Aguirre M.D. [address] [place] [phone] Scheduled Referrals Name Type Priority Associated Diagnoses Order S chedule Radiation Oncology Outpatient Referral Routine Malignant Neopl asm Once for 1 nurse visit Of Supraglottic Occurrences (clinic) (HCC) starting 2018 until 9 documented as of this encounter Visit Diagnoses Diagnosis Malignant Neoplasm Of Supraglottic (HCC) documented in this encounter
--- OUTSIDE RECORDS SUMMARY | 2022-03-31 14:52 | XMS_ITS | Encounter Summary ---
:1955 Author Organization [facility] Address [address] [place] [address] Care Team Providers Name Role Phone Unavailable Primary Care Provider Unavailable Reason for Visit Radiation Therapy (Routine) - Closed Specialty Diagnoses / Procedures Referred By Contact Refer red To Contact Diagnoses Malignant Neoplasm Of Supraglottic (HCC) Ursula Aguirre M.D. [facility] Procedures Prior Auth Rad Tx HI IMRT COMPLEX [address] [place] [phone] Referral ID Status Reason Start Date Expiration Date Visits Requ ested Visits Authorized [id number] Closed 03/15/2019 03/14/2020 35 35 Encounter Details Date Type Department Care Team Description 04/13/2019 Hospital Encounter Department of Radiation Bud Aguirre I., [place]cology [place] [address] [facility] [address] [place] [phone] Social History Tobacco Use Types Packs/Day Years [...] do you attend baptist or Never 2018 holiness services? Do you belong to any clubs [...] Radiology Mark Eastman M.D., M.S. [address] [place] [phone] 04/26/2022 Office Visit Otorhinolaryngology Roxanne Lanza APRN, C.N.P. [address] [place] [phone] 04/28/2022 Appointment Radiation Oncology Ursula Aguirre M.D. [address] [place] [phone] documented as of this encounter Visit Diagnoses Not on filedocumented in this encounter
--- OUTSIDE RECORDS SUMMARY | 2022-03-31 14:52 | XMS_ITS | Encounter Summary ---
:1955 Author Organization [facility] Address [address] [place] [address] Care Team Providers Name Role Phone Unavailable Primary Care Provider Unavailable Reason for Visit Radiation Therapy (Routine) - Closed Specialty Diagnoses / Procedures Referred By Contact Refer red To Contact Diagnoses Malignant Neoplasm Of Supraglottic (HCC) Ursula Aguirre M.D. [facility] Procedures Prior Auth Rad Tx [place] IMRT COMPLEX [address] [place] [address] [phone] Referral ID Status Reason Start Date Expiration Date Visits Requ ested Visits Authorized [id number] Closed 03/15/2019 03/14/2020 35 35 Encounter Details Date Type Department Care Team Description 04/11/2019 Hospital Encounter Department of Radiation Bud Aguirre I., Oncology in [place] [place] [address] [facility] [address] [place] [phone] Social History Tobacco Use Types Packs/Day Years [...] do you attend episcopalian or Never 2018 faith services? Do you [...] Radiology Mark Eastman M.D., M.S. [address] [place] [address] [phone] 04/26/2022 Office Visit Otorhinolaryngology Roxanne Lanza APRN, C.N.P. [address] [place] [address] [phone] 04/28/2022 Appointment Radiation Oncology Ursula Aguirre M.D. [address] [place] [address] [phone] documented as of this encounter Visit Diagnoses Not on filedocumented in this encounter
--- OUTSIDE RECORDS SUMMARY | 2022-03-31 14:53 | XMS_ITS | Encounter Summary ---
:1955 Author Organization [facility] Address [address] [place] [address] Care Team Providers Name Role Phone Unavailable Primary Care Provider Unavailable Reason for Referral Radiation Therapy (Routine) - Canceled Specialty Diagnoses / Procedures Referred By Contact Refer red To Contact Diagnoses Malignant Neoplasm Of Supraglottic (HCC) Ursula Aguirre M.D. [facility] Procedures Management Visit [address] [place] [phone] Referral ID Status Reason Start Date Expiration Date Visits V isits Requested Authorized [id number] Canceled 03/15/2019 03/14/2020 1 1 Reason for Visit Radiation Therapy (Routine) - Canceled Specialty Diagnoses / Procedures Referred By Contact Refer red To Contact Diagnoses Malignant Neoplasm Of Supraglottic (HCC) Ursula Aguirre M.D. [facility] Procedures Management Visit [address] [place] [address] [phone] Referral ID Status Reason Start Date Expiration Date Visits V isits Requested Authorized [id number] Canceled 03/15/2019 03/14/2020 1 1 Encounter Details Date Type Department Care Team Description 04/04/2019 Hospital Encounter Department of Ursula Aguirre Neoplasm Of Radiation Oncology [facility] Supraglottic (HCC) in [place], [address] [place], [place] [address] [facility] [address] [place], [place] [phone] (Work) [phone] Social History Tobacco Use Types Packs/Day Years [...] do you attend hoahaoism or Never 2018 methodist services? Do you [...] Sign Reading Time Taken Comments Blood Pressure 130/81 04/04/2019 9:28 AM CDT Pulse 87 04/04/2019 9:22 AM CDT Temperature 36 ??C (96.8 ??F) 04/04/2019 9:22 AM CDT Respiratory Rate - - Oxygen Saturation - - Inhaled Oxygen Concentration - - Weight 86.3 kg (190 lb 4.1 oz) 04/04/2019 9:22 AM CDT Height - - Body Mass Index 30.94 03/29/2019 3:17 PM CDT documented in this [...] 6 (six) hours as needed for pain. budesonide-formoterol Inhale 2 puffs 2 0 08/02/2019 [...] Progress Notes Summer Pérez P.A.-C., M.S. - 04/04/2019 9:57 AM CDT SUBJECTIVE REASON FOR VISIT Evaluation for side effects while receiving radiation treatment for 1. Malignant Neoplasm Of Supraglottic (HCC) SUPERVISED BY: Ursula Aguirre M.D. 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 ??She??has received 8??of 35??fractions for a dose of 1600??cGy out of a planned total dose of 7000??cGy. ??Her??anticipated date of completion is May 04, 2019.??She is receiving altered fractionation treatment with twice a day treatment once weekly. She will not be receiving concurrent chemotherapy.?? The patient was seen and examined today with Dr. Aguirre. The patient reports doing about the same overall. She rates her fatigue as 5/10 in severity. She denies dizziness or lightheadedness, but does feel weak. She is using a cane for ambulation. She reportshemoptysis this morning of a few drops. She is not smoking. She is using Mucinex and guaifenesin with benefit. She does report developing pain of the left throat only with swallowing. This started approximately two days ago. She rates the pain as 5/10 in severity. She has been taking Tylenol three tablets daily with benefit. She is eating and drinking well overall. She has switched to softer foods. She has had good healing of the left cheek boil. She completed the course of Bactrim. She has not yet restarted Cozaar. She denies a history of any heart problems. PATIENT REPORTED SYMPTOM SCREEN FATIGUE (Scale: 0 = no fatigue; 10 = worst fatigue you can imagine): 5 ?? PAIN (Scale: 0 = no pain; 10 = worst pain you can imagine): 5-6 ?? OVERALL QUALITY OF LIFE (Scale: 0 = as bad as can be; 10 = as good as can be): N/A OBJECTIVE BP 130/81 (BP Location: Left arm, Patient Position: Standing, Cuff Size: Small) Pulse 87 Temp 36??C (Temporal) Wt 86.3 kg BMI 30.94 kg/m? PHYSICAL EXAM General: Alert and oriented in no apparent distress. 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 2.?Definitive radiotherapy to the supraglottic tumor initiated on March 26, 2019; anticipated date of completion is May 04, 2019 3. ??Left facial boil, s/p incision and drainage on March 28, 2019; Bactrim initiated for 5 days onMarch 28, 2019 The patient is tolerating radiation treatment well overall. She has completed her course of Bactrim and will re-start Cozaar tomorrow morning. She was congratulated on not smoking. She has developed mild pain with swallowing. She was educated on taking Tylenol two tablets 30 minutes prior to meals. She was educated on the maximum dosage of 4,000 mg per day. She does not have any other pain medicationat home. We will schedule a nurse visit on Tuesday to re-evaluate her side effects before the weekend. She was reminded of the importance of good nutritional and fluid intake. She was provided with supplement samples today. She will meet with our dietitian tomorrow. She will contact us with any question s or concerns. We will continue with radiation treatment as planned. Signed by: Summer Pérez P.A.-C., M.SShital 04/04/2019 9:57 AM Associated attestation - Ursula Aguirre M.D. - 04/04/2019 2:22 PM CDT I saw and evaluated the patient and participated in the rao portions of the service. I reviewed the documentation of Ms. Summer Pérez PA-C, and agree with the findings and plan. The patient appears well on exam. We will continue with radiation as planned and monitor weekly. Ursula Aguirre M.D., 04/04/19 documented in this encounter Plan of Treatment Upcoming Encounters Date Type Specialty Care Team Description 04/22/2022 Clinical Admitting/Central Communication Scheduling 04/26/2022 Appointment Radiology Mark Eastman M.D., M.S. [address] [place] [phone] 04/26/2022 Office Visit Otorhinolaryngology Roxanne Lanza APRN, C.N.P. [address] [place] [phone] 04/28/2022 Appointment Radiation Oncology Ursula Aguirre M.D. [address] [place] [address] [phone] Scheduled Orders Name Type Priority Associated Diagnoses Order S chedule Management Visit Radiation Oncology Routine Malignant Neoplasm Of Once for 1 Supraglottic (HCC) Occurrenc es starting 04/04/2019 unti l 04/04/2019 documented as of this encounter Visit Diagnoses Diagnosis Malignant Neoplasm Of Supraglottic (HCC) documented in this encounter
--- OUTSIDE RECORDS SUMMARY | 2022-03-31 14:53 | XMS_ITS | Encounter Summary ---
:1955 Author Organization [facility] Address [address] [place] [address] Care Team Providers Name Role Phone Unavailable Primary Care Provider Unavailable Reason for Referral Outpatient (Routine) - Canceled Specialty Diagnoses / Procedures Referred By Contact Refer red To Contact Radiation Oncology Diagnoses Malignant Neoplasm Of Supraglottic (HCC) Ursula Aguirre [facility] [place] [facility] M.[facility]. 200 [place] [address] Referral ID Status Reason Start Date Expiration Date Visits V isits Requested Authorized [id number] Canceled 03/15/2019 03/14/2020 1 1 Reason for Visit Outpatient (Routine) - Canceled Specialty Diagnoses / Procedures Referred By Contact Refer red To Contact Radiation Oncology Diagnoses Malignant Neoplasm Of Supraglottic (HCC) Ursula Aguirre [facility] [place] [facility] M.D. 200 [place] [phone] Referral ID Status Reason Start Date Expiration Date Visits V isits Requested Authorized [id number] Canceled 03/15/2019 03/14/2020 1 1 Encounter Details Date Type Department Care Team Description 04/06/2019 Hospital Encounter Department of Mary Aguirre M.D. [address] [place] [phone] Malignant Neoplasm Of Radiation Oncology Jannet Cross R.N. 200 [place] [address] Supraglottic (HCC) in [place], [place] [address] [place] [phone] Social History Tobacco Use Types Packs/Day Years [...] do you attend worship or Never 2018 worship services? Do you [...] Sign Reading Time Taken Comments Blood Pressure 127/63 04/06/2019 3:23 PM CDT Pulse 80 04/06/2019 3:23 PM CDT Temperature 36.4 ??C (97.5 ??F) 04/06/2019 3:23 PM CDT Respiratory Rate - - Oxygen Saturation - - Inhaled Oxygen Concentration - - Weight 87.5 kg (192 lb 14.4 oz) 04/06/2019 3:23 PM CDT Height - - Body Mass Index 31.37 03/29/2019 3:17 PM CDT documented in this encounter Medications at Time of Discharge Medication Sig Dispensed Refills Start Date End Date aspirin 81 mg chewable Chew 81 mg every 0 tablet evening. Clare Aspirin fluticasone propionate Administer 1 spray 0 01/13 [...] encounter Progress Notes Jannet Cross R.N. - 04/06/2019 3:19 PM CDT SUBJECTIVE REASON FOR VISIT Evaluation for side effects while receiving radiation treatment for 1. 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 ??She??has received 11??of 35??fractions for a dose of 2200??cGy out of a planned totaldose of 7000??cGy. ??Her??anticipated date of completion is May 04, 2019.??She is receiving altered fractionation treatment with twice a day treatment once weekly. She will not be receiving concurrent chemotherapy.?? Patient reports that her mild sore throat pain is at a 6 out of 10. She is taking 1-2 Tylenol every 6 hours as needed and feels that this is managing her pain quite well. She does not feel the need to take any more pain medications at this time. Her son, Rolando is concerned if pain worsens over the weekend to have a back up plan. Patient denies fevers, chills, shortness of breath, nausea or vomiting. She does still experience thickened phlegm but has not started Mucinex yet. She was able to re-start her Cozaar yesterday. She has not started to supplement her dietary intake yet with nutritional drinks. OBJECTIVE BP 127/63 Pulse 80 Temp 36.4 ??C Wt 87.5 kg BMI 31.37 kg/m? PHYSICAL EXAM General: Alert and oriented in no apparent distress. Face: left cheek drainage site healing well with no signs of infection or concern noted. ASSESSMENT / PLAN The patient is tolerating radiation treatment well overall. Summer Pérez PA-C signed off on hard copy prescription for Tylenol #2 today. Patient can start this prescription for pain not being well controlled with Tylenol alone. She is not to exceed 4000 mg of Tylenol a day. I reviewed with her that Tylenol #2 may cause drowsiness, fatigue and constipation. She is to start Senna-S if constipation develops. She is to avoid driving while on Tylenol #2. Her weight remains stable since starting treatment. Her blood pressure check today was with in normal limits. She can trial liquid Mucinex to help think out thick secretions. Left cheek lesion has resolved well post drainage. Plan of care reviewed with Summer Pérez PA-C today. Patient and her son stated a full understanding to the plan of care going forward. She will contact us with any questions or concerns. We will continue with radiation treatment as planned. Signed by: Jannet Cross R.N. 04/06/2019 9:57 AM documented in this encounter Plan of Treatment Upcoming Encounters Date Type Specialty Care Team Description 04/22/2022 Clinical Admitting/Central Communication Scheduling 04/26/2022 Appointment Radiology Mark Eastman M.D., M.S. [address] [place] [phone] 04/26/2022 Office Visit Otorhinolaryngology Roxanne Lanza APRN, C.N.P. [address] [place] [phone] 04/28/2022 Appointment Radiation Oncology Ursula Aguirre M.D. [address] [place] [phone] Scheduled Referrals Name Type Priority Associated Diagnoses Order S chedule Radiation Oncology Outpatient Referral Routine Malignant Neopl asm Once for 1 nurse visit Of Supraglottic Occurrences (clinic) (HCC) starting 2018 until 9 documented as of this encounter Visit Diagnoses Diagnosis Malignant Neoplasm Of Supraglottic (HCC) documented in this encounter
--- OUTSIDE RECORDS SUMMARY | 2022-03-31 14:53 | XMS_ITS | Encounter Summary ---
:1955 Author Organization [facility] Address [address] [place] [address] Care Team Providers Name Role Phone Unavailable Primary Care Provider Unavailable Reason for Visit Radiation Therapy (Routine) - Closed Specialty Diagnoses / Procedures Referred By Contact Refer red To Contact Diagnoses Malignant Neoplasm Of Supraglottic (HCC) Ursula Aguirre M.D. [facility] Procedures Prior Auth Rad Tx [place] IMRT COMPLEX [address] [place] [address] [phone] Referral ID Status Reason Start Date Expiration Date Visits Requ ested Visits Authorized [id number] Closed 03/15/2019 03/14/2020 35 35 Encounter Details Date Type Department Care Team Description 04/04/2019 Hospital Encounter Department of Radiation Bud Aguirre I., Oncology in [place] [address] [facility] [address] [place] [phone] Social History Tobacco Use Types Packs/Day Years [...] 02/21/2019 organizations such as episcopal groups, unions, fra5minutes or athletic groups, or school groups? How [...] Radiology Mark Eastman M.D., M.S. [address] [place] [phone] 04/26/2022 Office Visit Otorhinolaryngology Roxanne Lanza APRN, C.N.P. [address] [place] [phone] 04/28/2022 Appointment Radiation Oncology Ursula Aguirre M.D. [address] [place] [phone] documented as of this encounter Visit Diagnoses Not on filedocumented in this encounter
--- OUTSIDE RECORDS SUMMARY | 2022-03-31 14:53 | XMS_ITS | Encounter Summary ---
:1955 Author Organization [facility] Address [address] [place] [address] Care Team Providers Name Role Phone Unavailable Primary Care Provider Unavailable Reason for Visit Radiation Therapy (Routine) - Closed Specialty Diagnoses / Procedures Referred By Contact Refer red To Contact Diagnoses Malignant Neoplasm Of Supraglottic (HCC) Ursula Aguirre M.D. [facility] Procedures Prior Auth Rad Tx [place] IMRT COMPLEX [address] [place] [address] [phone] Referral ID Status Reason Start Date Expiration Date Visits Requ ested Visits Authorized [id number] Closed 03/15/2019 03/14/2020 35 35 Encounter Details Date Type Department Care Team Description 04/05/2019 Hospital Encounter Department of Radiation Bud Aguirre I., Oncology in [place] [address] [facility] [address] [place] [phone] Social History Tobacco Use Types Packs/Day Years [...] 02/21/2019 organizations such as taoism groups, unions, [employer] or athletic groups, or school groups? How [...] Appointment Radiology Mark Eastman M.D., M.S. [address] [place] [phone] 04/26/2022 Office Visit Otorhinolaryngology Roxanne Lanza APRN, C.N.P. [address] [place] [phone] 04/28/2022 Appointment Radiation Oncology Ursula Aguirre M.D. [address] [place] [phone] documented as of this encounter Visit Diagnoses Not on filedocumented in this encounter
--- OUTSIDE RECORDS SUMMARY | 2022-03-31 14:53 | XMS_ITS | Encounter Summary ---
:1955 Author Organization [facility] Address [address] [place] [address] Care Team Providers Name Role Phone Unavailable Primary Care Provider Unavailable Reason for Visit Radiation Therapy (Routine) - Closed Specialty Diagnoses / Procedures Referred By Contact Refer red To Contact Diagnoses Malignant Neoplasm Of Supraglottic (HCC) Ursula Aguirre M.D. [facility] Procedures Prior Auth Rad Tx [place] IMRT COMPLEX [address] [place] [address] [phone] Referral ID Status Reason Start Date Expiration Date Visits Requ ested Visits Authorized [id number] Closed 03/15/2019 03/14/2020 35 35 Encounter Details Date Type Department Care Team Description 03/29/2019 Hospital Encounter Department of Radiation Bud Aguirre I., [place]cology [place] [address] [facility] [address] [place] [phone] Social History Tobacco Use Types Packs/Day Years [...] do you attend mormon or Never 2018 hindu services? Do you belong to any clubs or No 02/21/2019 organizations such as mormon groups, unions, [employer]th[employer] or athletic groups, or school groups? How [...] 0 01/13/2019 (FLONASE) 50 mcg/actuation nasal spray ibuprofen (ADVIL,MOTRIN) Take 600 mg by 0 [...] Appointment Radiology Mark Eastman M.D., M.S. [address] [place] [phone] 04/26/2022 Office Visit Otorhinolaryngology Roxanne Lanza APRN, C.N.P. [address] [place] [phone] 04/28/2022 Appointment Radiation Oncology Ursula Aguirre M.D. [address] [place] [phone] documented as of this encounter Visit Diagnoses Not on filedocumented in this encounter
--- OUTSIDE RECORDS SUMMARY | 2022-03-31 14:53 | XMS_ITS | Encounter Summary ---
:1955 Author Organization [facility] Address [address] [place] [address] Care Team Providers Name Role Phone Unavailable Primary Care Provider Unavailable Reason for Referral Specialty Diagnoses / Procedures Referred By Contact Refer red To Contact Ursula Aguirre M.D. [facility] [address] [place] [phone] Referral ID Status Reason Start Date Expiration Date Visits Requ ested Visits Authorized Encounter Details Date Type Department Care Team Description 03/30/2019 Hospital Encounter Department of Mary Aguirre M.D. [address] [place] [phone] Malignant Neoplasm Of Radiation Oncology Jannet Cross R.N. [address] [place] [phone] Supraglottic (HCC) in [place], [place] [address] [place] [phone] Social History Tobacco Use Types Packs/Day Years [...] do you attend hoahaoism or Never 2018 orthodoxy services? Do you [...] Sign Reading Time Taken Comments Blood Pressure 151/78 03/30/2019 11:00 AM CDT Pulse 89 03/30/2019 11:00 AM CDT Temperature - - Respiratory Rate - - Oxygen Saturation - - Inhaled Oxygen Concentration - - Weight 87 kg (191 lb 12.8 oz) 03/30/2019 11:00 AM CDT Height - - Body Mass Index 31.2 03/29/2019 3:17 PM CDT documented in this [...] (two) times a 11/1311/02/2019 mg tablet day. raNITIdine (ZANTAC) 150 mg Take 150 mg [...] encounter Progress Notes Jannet Cross R.N. - 03/30/2019 12:59 PM CDT SUBJECTIVE REASON FOR VISIT Evaluation for side effects while receiving radiation treatment for 1. Malignant Neoplasm Of Supraglottic (HCC) Nurse follow up visit HISTORY OF PRESENT ILLNESS Ms. 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 She is currently receiving definitive radiation therapy to the supraglottic tumor to a dose of 7000 cGy in 35 fractions. She has received 5 of 35 fractions for a dose of 1000 cGy out of a planned total dose of 7000 cGy. Her anticipated date of completion is May 04, 2019. She is receiving altered fractionation treatment with twice a day treatment once weekly. She will not be receiving concurrent chemotherapy. Patient continues to apply warm compresses to the left cheek. She also continues to take her prescribed Bactrim and hold Cozaar while on Bactrim. She denies any signs of infection and feels that swelling and discomfort in area of left cheek have both decreased. OBJECTIVE BP 151/78 Pulse 89 Wt 87 kg BMI 31.20 kg/m? PHYSICAL EXAM General: Alert and oriented in no apparent distress. Face: Erythematous and edematous lesion on the lateral left cheek improved significantly since Tuesday's examination. No signs of infection or draining fluid noted. ASSESSMENT / PLAN The patient is tolerating radiation treatment well overall. The left cheek lesion looks good today with no signs of infection. They will continue with care of the area as directed by Dr. Leenstra. She will also continue to take Bactrim for the complete five days. They will monitor her blood pressure at home during this time as she was recommended to hold Cozaar. Nurse education visit was also completed today. She will contact us with any questions or concerns. We will continue with radiation treatment as planned. Signed by: Jannet Cross R.N. 03/30/2019 4:33 PM documented in this encounter Plan of Treatment Upcoming Encounters Date Type Specialty Care Team Description 04/22/2022 Clinical Admitting/Central Communication Scheduling 04/26/2022 Appointment Radiology Mark Eastman M.D., M.S. [address] [place] [phone] 04/26/2022 Office Visit Otorhinolaryngology Roxanne Lanza, MANAGER SWITCH, C.N.P. [address] [place] [phone] 04/28/2022 Appointment Radiation Oncology Ursula Agiurre M.D. [address] [place] [phone] Scheduled Referrals Name Type Priority Associated Diagnoses Order S chedule Radiation Oncology Outpatient Referral Routine Malignant Neopl asm Once for 1 - Nurse education Of Supraglottic Occurre nces visit (clinic) (HCC) starting 03/15 until 9 documented as of this encounter Visit Diagnoses Diagnosis Malignant Neoplasm Of Supraglottic (HCC) documented in this encounter
--- OUTSIDE RECORDS SUMMARY | 2022-03-31 14:53 | XMS_ITS | Encounter Summary ---
:[address] [facility] Address [address] [place] [address] [id number] Care Team Providers Name Role Phone Unavailable Primary Care Provider Unavailable Reason for Referral Specialty Diagnoses / Procedures Referred By Contact Refer red To Contact Ursula Aguirre M.D. [facility] [address] [place] [address] [phone] Referral ID Status Reason Start Date Expiration Date Visits Requ ested Visits Authorized Encounter Details Date Type Department Care Team Description 03/30/2019 Hospital Encounter Department of Mary Aguirre M.D. [address] [place] [address] [phone] Malignant Neoplasm Of Radiation Oncology Silke Garcia C.C.RShitalCShital Supraglottic (HCC) in [place], [place] [address] [place] [phone] Social History Tobacco Use Types Packs/Day Years [...] do you attend anabaptist or Never 2018 hindu services? Do you [...] Chew 81 mg every 0 tablet evening. [facility] [employer] Aspirin fluticasone propionate Administer 1 spray 0 [...] Radiology Mark Eastman M.D., M.S. [address] [place] [phone] 04/26/2022 Office Visit Otorhinolaryngology Roxanne Lanza APRN, C.N.P. [address] [place] [phone] 04/28/2022 Appointment Radiation Oncology Ursula Aguirre M.D. [address] [place] [address] [phone] Scheduled Referrals Name Type Priority Associated Diagnoses Order S chedule Radiation Oncology Outpatient Referral Routine Malignant Neopl asm Once for 1 - PRO education Of Supraglottic Occurrenc es visit (HCC) starting 2018 until 9 documented as of this encounter Visit Diagnoses Diagnosis Malignant Neoplasm Of Supraglottic (HCC) documented in this encounter
--- OUTSIDE RECORDS SUMMARY | 2022-03-31 14:53 | XMS_ITS | Encounter Summary ---
:1955 Author Organization [facility] Address [address] [place] [address] Care Team Providers Name Role Phone Unavailable Primary Care Provider Unavailable Reason for Visit Radiation Therapy (Routine) - Closed Specialty Diagnoses / Procedures Referred By Contact Refer red To Contact Diagnoses Malignant Neoplasm Of Supraglottic (HCC) Ursula Aguirre M.D. [facility] Procedures Prior Auth Rad Tx [place] IMRT COMPLEX [address] [place] [address] [phone] Referral ID Status Reason Start Date Expiration Date Visits Requ ested Visits Authorized [id number] Closed 03/15/2019 03/14/2020 35 35 Encounter Details Date Type Department Care Team Description 04/06/2019 Hospital Encounter Department of Radiation Bud Aguirre I., [place]cology [place] [address] [facility] [address] [place] [address] [phone] Social History Tobacco Use Types Packs/Day Years [...] do you attend worship or Never 2018 nondenominational services? Do you belong to any clubs or No 02/21/2019 organizations such as worship groups, unions, fra8hands or athletic groups, or school groups? How [...] Radiology Mark Eastman M.D., M.S. [address] [place] [phone] 04/26/2022 Office Visit Otorhinolaryngology Roxanne Lanza APRN, C.N.P. [address] [place] [phone] 04/28/2022 Appointment Radiation Oncology Ursula Aguirre M.D. [address] [place] [phone] documented as of this encounter Visit Diagnoses Not on filedocumented in this encounter
--- OUTSIDE RECORDS SUMMARY | 2022-03-31 14:53 | XMS_ITS | Encounter Summary ---
:1955 Author Organization [facility] Address [address] [place] [address]030 Care Team Providers Name Role Phone Unavailable Primary Care Provider Unavailable Reason for Referral Outpatient (Routine) - Closed Specialty Diagnoses / Procedures Referred By Contact Refer red To Contact Nutrition Diagnoses Malignant Neoplasm Of Supraglottic (HCC) Summer Pérez P.A.-C., [facility] [address] [place] [phone] Referral ID Status Reason Start Date Expiration Date Visits Requ ested Visits Authorized [id number] Closed 03/29/2019 03/28/2020 1 1 Reason for Visit Outpatient (Routine) - Closed Specialty Diagnoses / Procedures Referred By Contact Refer red To Contact Nutrition Diagnoses Malignant Neoplasm Of Supraglottic (HCC) Summer Pérez P.A.-C., [facility] [address] [place] [phone] Referral ID Status Reason Start Date Expiration Date Visits Requ ested Visits Authorized [id number] Closed 03/29/2019 03/28/2020 1 1 Encounter Details Date Type Department Care Team Description 04/05/2019 Hospital Encounter Department of Summer Pérez P.A.-C., M.S. [address] [place] [phone] Malignant Neoplasm Of Radiation Oncology Ryanne Mcbride, JUANITO [address] [place] [address] Supraglottic (HCC) in [place], [place] [address] [place] [address] Social History Tobacco Use Types [...] do you attend synagogue or Never 2018 muslim services? Do you [...] encounter Progress Notes Ryanne Mcbride LD - 04/05/2019 7:51 AM CDT CHIEF COMPLAINT/REASON FOR VISIT Malignant Neoplasm Of Supraglottic (HCC) (C32.1) ?? HISTORY OF PRESENT ILLNESS Mrs. 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 Definitive radiotherapy to the supraglottic tumor initiated on March 26, 2019; anticipated date of completion is May 04, 2019. ? ASSESSMENT ?? 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 ??She does not drink alcohol. ? Nutrition Focused Physical Findings Mouth/esophagus/Throat: Pain managed with tylenol for swallowing per patient. Edentulous. Is able toeat most foods. No mouth sores or dry mouth. Bowels: Managed with immodium use 2 times over the past week. Nausea/vomiting: none ?? Procedures/Labs: Swallow Evaluation 03/28/19: Diagnosis: Mild oropharyngeal dysphagia ??Recommendations: ??1. Patient is safe to continue a general diet with thin liquids as tolerated. 2. Take small bites/sips one at a time and eat slowly. 3. Alternate solids and liquids frequently during mealtimes. 4. Perform swallow exercises as instructed. 5. Follow-up with Speech Pathology 6-weeks following completion of radiation treatment or sooner as needed. ?? Food/Nutrition Related History Yesterday she had a waffle with butter and syrup for breakfast. Cream of wheat with 1% milk and peaches for lunch. About 3 ounces of pork steak and a small amount of jumbalaya. She also had several oreo cookies and a bowl of honey nut cheerios. She drinks coffee and 7-8 (16 ounce) bottles of water each day. Her sons do the grocery shopping and cooking. ?? Weight History Date: 03/29/19?Weight: 87.6 kg?Height 167 cm Body mass index is 31.4 kg/m??.?? Usual body weight: 230# (104.5 kg) last year, per patient 03/16/19: 88.5 kg 03/28/19: 87.7 kg 04/04/19: 86.3 kg ?? Estimation of Nutritional Needs Weight Used for Equation Calculations: 87.6 kg?Date: 03/29/19 Total Calorie Needs: [id number] (HB basal to HB basal+ 20%) Estimated Protein Needs: 88??to 105 grams per day (1-1.2 g/kg) Estimated Fluid Needs: 2200 ml per day (25 ml/kg) ?? NUTRITION DIAGNOSIS Unintentional weight loss related to cancer as evidenced by approximate 16.8 kg weight loss in the last year prior to treatment per patient report. ?? Food- and nutrition-related knowledge deficit??related to Cancer with radiation??therapy as evidenced by need for nutrition education to maintain weight and nutrition status during treatment Nutrition Diagnosis Reassessment: Ongoing ?? Nutrition Prescription/Recommendation [id number] kcals, 88-105 grams protein, 9+ cups fluid ?? INTERVENTION Reviewed the importance of adequate nutrition and weight maintenance during treatment. Reviewed calorie, protein and fluid needs and provided in writing as son reports having given those to his brotherthat patient stays with on the weekends. Emphasized the importance of protein intake as patient's report of usual intake is limited in this area. Patient encouraged to include some with each intake. She is agreeable and reports liking (peanut butter, cottage cheese, eggs, cheese). Also, discussed the benefit of supplements when appetite decreased. Samples provided. Patient's son and his and daughter attended appointment with patient today. MONITORING AND EVALUATION: Nutrition parameter to monitor: ??Weight Desired Outcome: ??Maintain weight start weight of 87.6 kg within 5 to 10% loss (83.2 kg/183 lbs to 78.8 kg/173.4 lbs). Patient Goal(s): 1. Soft diet with addition of nutrition supplements to meet estimated nutrition needs. 2. Aim for 9+ cups of fluid per day. 3. Include a protein source each time eating. ?? FOLLOW UP PLAN: She will follow up next week. RDN's contact information provided and she was encouraged to call withquestions. ?? Time spent with patient (minutes): 15 documented in this encounter Plan of Treatment Upcoming Encounters Date Type Specialty Care Team Description 04/22/2022 Clinical Admitting/Central Communication Scheduling 04/26/2022 Appointment Radiology Mark Eastman M.D., M.S. [address] [place] [phone] 04/26/2022 Office Visit Otorhinolaryngology Roxanne Lanza APRN, C.N.P. [address] [place] [phone] 04/28/2022 Appointment Radiation Oncology Ursula Aguirre M.D. [address] [place] [phone] Scheduled Referrals Name Type Priority Associated Diagnoses Order S chedule Nutrition - Outpatient Referral Routine Malignant Neoplasm On ce for 1 Medical nutrition Of Supraglottic Occurre nces therapy consult (HCC) starting (clinic) until 9 documented as of this encounter Visit Diagnoses Diagnosis Malignant Neoplasm Of Supraglottic (HCC) documented in this encounter
--- OUTSIDE RECORDS SUMMARY | 2022-03-31 14:53 | XMS_ITS | Encounter Summary ---
:1955 Author Organization [facility] Address [address] [place] [address] 85285 Care Team Providers Name Role Phone Unavailable Primary Care Provider Unavailable Reason for Visit Radiation Therapy (Routine) - Closed Specialty Diagnoses / Procedures Referred By Contact Refer red To Contact Diagnoses Malignant Neoplasm Of Supraglottic (HCC) Ursula Aguirre M.D. [facility] Procedures Prior Auth Rad Tx [place] IMRT COMPLEX [address] [place] [address] [phone] Referral ID Status Reason Start Date Expiration Date Visits Requ ested Visits Authorized [id number] Closed 03/15/2019 03/14/2020 35 35 Encounter Details Date Type Department Care Team Description 04/04/2019 Hospital Encounter Department of Radiation Bud Aguirre I., [place]cology [place] [address] [facility] [address] [place] [address] [phone] Social History Tobacco Use Types Packs/Day Years [...] do you attend anglican or Never 2018 christian services? Do you belong to any clubs or No 02/21/2019 organizations such as anglican groups, unions, fraobiwon or athletic groups, or school groups? How [...] Radiology Mark Eastman M.D., M.S. [address] [place] [phone] 04/26/2022 Office Visit Otorhinolaryngology Roxanne Lanza APRN, C.N.P. [address] [place] [phone] 04/28/2022 Appointment Radiation Oncology Ursula Aguirre M.D. [address] [place] [phone] documented as of this encounter Visit Diagnoses Not on filedocumented in this encounter
--- OUTSIDE RECORDS SUMMARY | 2022-03-31 14:53 | XMS_ITS | Encounter Summary ---
:1955 Author Organization [facility] Address [address] [place] [address] Care Team Providers Name Role Phone Unavailable Primary Care Provider Unavailable Reason for Visit Radiation Therapy (Routine) - Closed Specialty Diagnoses / Procedures Referred By Contact Refer red To Contact Diagnoses Malignant Neoplasm Of Supraglottic (HCC) Ursula Aguirre M.D. [facility] Procedures Prior Auth Rad Tx [place] IMRT COMPLEX [address] [place] [address] [phone] Referral ID Status Reason Start Date Expiration Date Visits Requ ested Visits Authorized [id number] Closed 03/15/2019 03/14/2020 35 35 Encounter Details Date Type Department Care Team Description 04/09/2019 Hospital Encounter Department of Radiation Bud Aguirre I., [place]cology [place] [address] [facility] [address] [place] [address] [phone] Social History Tobacco Use Types Packs/Day Years [...] do you attend christian or Never 2018 protestant services? Do you belong to any clubs or No 02/21/2019 organizations such as christian groups, unions, fraCasey's General Stores or athletic groups, or school groups? How [...] Radiology Mark Eastman M.D., M.S. [address] [place] [phone] 04/26/2022 Office Visit Otorhinolaryngology Roxanne Lanza APRN, C.N.P. [address] [place] [phone] 04/28/2022 Appointment Radiation Oncology Ursula Aguirre M.D. [address] [place] [phone] documented as of this encounter Visit Diagnoses Not on filedocumented in this encounter
--- OUTSIDE RECORDS SUMMARY | 2022-03-31 14:53 | XMS_ITS | Encounter Summary ---
:1955 Author Organization [facility] Address [address] [place] [address] 09456 Care Team Providers Name Role Phone Unavailable Primary Care Provider Unavailable Reason for Visit Radiation Therapy (Routine) - Closed Specialty Diagnoses / Procedures Referred By Contact Refer red To Contact Diagnoses Malignant Neoplasm Of Supraglottic (HCC) Ursula Aguirre M.D. [facility] Procedures Prior Auth Rad Tx [place] IMRT COMPLEX [address] [place] [address] [phone] Referral ID Status Reason Start Date Expiration Date Visits Requ ested Visits Authorized [id number] Closed 03/15/2019 03/14/2020 35 35 Encounter Details Date Type Department Care Team Description 04/02/2019 Hospital Encounter Department of Radiation Bud Aguirre I., Oncology in [place] [address] [facility] [address] [place] [address] [phone] Social History Tobacco Use Types Packs/Day Years [...] do you attend zoroastrianism or Never 2018 mandaen services? Do you belong to any clubs or No 02/21/2019 organizations such as zoroastrianism groups, unions, fraPersonera or athletic groups, or school groups? How [...] Radiology Mark Eastman M.D., M.S. [address] [place] [phone] 04/26/2022 Office Visit Otorhinolaryngology Roxanne Lanza APRN, C.N.P. [address] [place] [phone] 04/28/2022 Appointment Radiation Oncology Ursula Aguirre M.D. [address] [place] [phone] documented as of this encounter Visit Diagnoses Not on filedocumented in this encounter
--- OUTSIDE RECORDS SUMMARY | 2022-03-31 14:53 | XMS_ITS | Encounter Summary ---
:1955 Author Organization [facility] Address [address] [place] [address] Care Team Providers Name Role Phone Unavailable Primary Care Provider Unavailable Reason for Visit Radiation Therapy (Routine) - Closed Specialty Diagnoses / Procedures Referred By Contact Refer red To Contact Diagnoses Malignant Neoplasm Of Supraglottic (HCC) Ursula Aguirre M.D. [facility] Procedures Prior Auth Rad Tx [place] IMRT COMPLEX [address] [place] [address] [phone] Referral ID Status Reason Start Date Expiration Date Visits Requ ested Visits Authorized [id number] Closed 03/15/2019 03/14/2020 35 35 Encounter Details Date Type Department Care Team Description 04/06/2019 Hospital Encounter Department of Radiation Bud Aguirre I., Oncology in [place] [address] [facility] [address] [place] [address] [phone] Social History Tobacco Use Types Packs/Day Years [...] 02/21/2019 organizations such as synagogue groups, unions, fraWealshire of [place] or athletic groups, or school groups? How [...] Radiology Mark Eastman M.D., M.S. [address] [place] [phone] 04/26/2022 Office Visit Otorhinolaryngology Roxanne Lanza APRN, C.N.P. [address] [place] [phone] 04/28/2022 Appointment Radiation Oncology Ursula Aguirre M.D. [address] [place] [phone] documented as of this encounter Visit Diagnoses Not on filedocumented in this encounter
--- OUTSIDE RECORDS SUMMARY | 2022-03-31 14:53 | XMS_ITS | Encounter Summary ---
:1955 Author Organization [facility] Address [address] [place] [address] Care Team Providers Name Role Phone Unavailable Primary Care Provider Unavailable Reason for Visit Radiation Therapy (Routine) - Closed Specialty Diagnoses / Procedures Referred By Contact Refer red To Contact Diagnoses Malignant Neoplasm Of Supraglottic (HCC) Ursula Aguirre M.D. [facility] Procedures Prior Auth Rad Tx [place] IMRT COMPLEX [address] [place] [address] [phone] Referral ID Status Reason Start Date Expiration Date Visits Requ ested Visits Authorized [id number] Closed 03/15/2019 03/14/2020 35 35 Encounter Details Date Type Department Care Team Description 03/29/2019 Hospital Encounter Department of Radiation Bud Aguirre I., [place]cology [place] [address] [facility] [address] [place] [address] [phone] Social History Tobacco Use Types Packs/Day Years [...] or relatives? How often do you attend mandaen or Never 2018 christian services? Do you belong to any clubs or No 02/21/2019 organizations such as mandaen groups, unions, fraRebiotix or athletic groups, or school groups? How [...] Radiology Mark Eastman M.D., M.S. [address] [place] [phone] 04/26/2022 Office Visit Otorhinolaryngology Roxanne Lanza APRN, C.N.P. [address] [place] [phone] 04/28/2022 Appointment Radiation Oncology Ursula Aguirre M.D. [address] [place] [phone] documented as of this encounter Visit Diagnoses Not on filedocumented in this encounter
--- OUTSIDE RECORDS SUMMARY | 2022-03-31 14:53 | XMS_ITS | Encounter Summary ---
:1955 Author Organization [facility] Address [address] [place] [address] Care Team Providers Name Role Phone Unavailable Primary Care Provider Unavailable Reason for Referral Radiation Therapy (Routine) - Canceled Specialty Diagnoses / Procedures Referred By Contact Refer red To Contact Diagnoses Malignant Neoplasm Of Supraglottic (HCC) Ursula Aguirre M.D. [facility] Procedures Management Visit [address] [place] [address] [phone] Referral ID Status Reason Start Date Expiration Date Visits V isits Requested Authorized [id number] Canceled 03/15/2019 03/14/2020 1 1 Reason for Visit Radiation Therapy (Routine) - Canceled Specialty Diagnoses / Procedures Referred By Contact Refer red To Contact Diagnoses Malignant Neoplasm Of Supraglottic (HCC) Ursula Aguirre M.D. [facility] Procedures Management Visit [address] [place] [address] [phone] Referral ID Status Reason Start Date Expiration Date Visits V isits Requested Authorized [id number] Canceled 03/15/2019 03/14/2020 1 1 Encounter Details Date Type Department Care Team Description 03/29/2019 Hospital Encounter Department of Peter Schultz Neoplasm Of Radiation Oncology Jose Serna M.D. Supraglottic (HCC) in [place], [address] [place], [place] [address] [facility] [address] [place], [place] [phone] (Work) [phone] Social History Tobacco Use Types Packs/Day Years [...] do you attend adventism or Never 2018 yarsani services? Do you [...] Sign Reading Time Taken Comments Blood Pressure 156/80 03/29/2019 4:16 PM CDT Pulse 91 03/29/2019 4:16 PM CDT Temperature 35.9 ??C (96.6 ??F) 03/29/2019 4:16 PM CDT Respiratory Rate - - Oxygen Saturation - - Inhaled Oxygen Concentration - - Weight 87.6 kg (193 lb 2 oz) 03/29/2019 4:16 PM CDT Height - - Body Mass Index 31.41 03/29/2019 3:17 PM CDT documented in this [...] Progress Notes Summer Pérez P.A.-C., M.S. - 03/29/2019 4:33 PM CDT SUBJECTIVE REASON FOR VISIT Evaluation for side effects while receiving radiation treatment for 1. Malignant Neoplasm Of Supraglottic (HCC) SUPERVISED BY: Jose Schultz M.D. ([id number]) HISTORY OF PRESENT ILLNESS Ms. 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 She is currently receiving definitive radiation therapy to the supraglottic tumor to a dose of 7000 cGy in 35 fractions. She has received 4 of 35 fractions for a dose of 800 cGy out of a planned total dose of 7000cGy. Her anticipated date of completion is May 04, 2019. She is receiving altered fractionation treatment with twice a day treatment once weekly. She will not be receiving concurrent chemotherapy. The patient's case was discussed today with Dr. Schultz. The patient reports doing well overall. The patient and her son report that the left cheek boil is significantly improved compared to yesterday. Her son has been carefully cleansing the area, applying triple antibiotic ointment, and covering the area with a bandage. She denies fever. She started taking Bactrim today. She did not take Cozaar today due to the interaction with Bactrim. They are able to monitor her blood pressure at home. The patient had been experiencing diarrhea. She took one Imodium today with good benefit. They asked if a prescription for guaifenesin 600 mg could be sent to her pharmacy today as it is expensive. PATIENT REPORTED SYMPTOM SCREEN FATIGUE (Scale: 0 = no fatigue; 10 = worst fatigue you can imagine): 4 ?? PAIN (Scale: 0 = no pain; 10 = worst pain you can imagine): 3 ?? OVERALL QUALITY OF LIFE (Scale: 0 = as bad as can be; 10 = as good as can be): 9 OBJECTIVE BP 156/80 (BP Location: Right arm, Patient Position: Sitting, Cuff Size: Regular) Pulse 91 Temp (!) 35.9 ??C (Temporal) Wt 87.6 kg BMI 31.41 kg/m? PHYSICAL EXAM General: Alert and oriented in no apparent distress. Face: Erythematous lesion on the lateral left cheek. Small amount of clear fluid was on the bandage upon removal. No signs of infection. ASSESSMENT / PLAN 1. 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 2. Definitive radiotherapy to the supraglottic tumor initiated on March 26, 2019; anticipated date of completion is May 04, 2019 3. Left facial boil, s/p incision and drainage on March 28, 2019; Bactrim initiated for 5 days on March 28, 2019 The patient is tolerating radiation treatment well overall. The left cheek lesion looks good today with no signs of infection. They will continue with care of the area as directed by Dr. Schultz. She will also continue to take Bactrim for the complete five days. They will monitor her blood pressure at home during this time as she was recommended to hold Cozaar. They will contact us if they have concerns regarding her blood pressure levels. A prescription for guaifenesin was sent to her preferred pharmacy. We will schedule a nurse visit tomorrow to check on the patient before the weekend, includingchecking her blood pressure again. The plan of care was discussed with Dr. Schultz today who was inagreement. She will contact us with any questions or concerns. We will continue with radiation treatment as planned. Signed by: Summer Pérez P.A.-C., M.S. 03/29/2019 4:33 PM documented in this encounter Plan of Treatment Upcoming Encounters Date Type Specialty Care Team Description 04/22/2022 Clinical Admitting/Central Communication Scheduling 04/26/2022 Appointment Radiology Mark Eastman M.D., M.S. [address] [place] [phone] 04/26/2022 Office Visit Otorhinolaryngology Roxanne Lanza APRN, C.N.P. [address] [place] [phone] 04/28/2022 Appointment Radiation Oncology Ursula Aguirre M.D. [address] [place] [phone] Scheduled Orders Name Type Priority Associated Diagnoses Order S chedule Management Visit Radiation Oncology Routine Malignant Neoplasm Of Once for 1 Supraglottic (HCC) Occurrenc es starting 03/29/2019 unti l 03/29/2019 documented as of this encounter Visit Diagnoses Diagnosis Malignant Neoplasm Of Supraglottic (HCC) documented in this encounter
--- OUTSIDE RECORDS SUMMARY | 2022-03-31 14:53 | XMS_ITS | Encounter Summary ---
:1955 Author Organization [facility] Address [address] [place] [address] Care Team Providers Name Role Phone Unavailable Primary Care Provider Unavailable Reason for Visit Radiation Therapy (Routine) - Closed Specialty Diagnoses / Procedures Referred By Contact Refer red To Contact Diagnoses Malignant Neoplasm Of Supraglottic (HCC) Ursula Aguirre M.D. [facility] Procedures Prior Auth Rad Tx [place] IMRT COMPLEX [address] [place] [address] [phone] Referral ID Status Reason Start Date Expiration Date Visits Requ ested Visits Authorized [id number] Closed 03/15/2019 03/14/2020 35 35 Encounter Details Date Type Department Care Team Description 03/30/2019 Hospital Encounter Department of Radiation Bud Aguirre I., Oncology [place] [address] [facility] [address] [place] [phone] Social History Tobacco Use Types Packs/Day Years [...] do you attend baptist or Never 2018 evangelical services? Do you belong to any clubs or No 02/21/2019 organizations such as baptist groups, unions, fraBlue Egg or athletic groups, or school groups? How [...] Radiology Mark Eastman M.D., M.S. [address] [place] [phone] 04/26/2022 Office Visit Otorhinolaryngology Roxanne Lanza APRN, C.N.P. [address] [place] [phone] 04/28/2022 Appointment Radiation Oncology Ursula Aguirre M.D. [address] [place] [phone] documented as of this encounter Visit Diagnoses Not on filedocumented in this encounter
--- OUTSIDE RECORDS SUMMARY | 2022-03-31 14:53 | XMS_ITS | Encounter Summary ---
:1955 Author Organization [facility] Address [address] [place] [address] Care Team Providers Name Role Phone Unavailable Primary Care Provider Unavailable Encounter Details Date Type Department Care Team Description 04/09/2019 Orders Only Department of Jannet Cross, Malignant Neoplasm Of Radiation Oncology in [place]. Supraglottic (HCC) [facility] [address] [facility] (Primary Dx) [address] [place] [phone] [phone] Social History Tobacco Use Types Packs/Day Years [...] do you attend tenriism or Never 2018 jainism services? Do you [...] Radiology Mark Eastman M.D., M.S. [address] [place] [phone] 04/26/2022 Office Visit Otorhinolaryngology Roxanne Lanza APRN, C.N.P. [address] [place] [phone] 04/28/2022 Appointment Radiation Oncology Ursula Aguirre M.D. [address] [place] [phone] documented as of this encounter Visit Diagnoses Diagnosis Malignant Neoplasm Of Supraglottic (HCC) - Primary documented in this encounter
--- OUTSIDE RECORDS SUMMARY | 2022-03-31 14:53 | XMS_ITS | Encounter Summary ---
:1955 Author Organization [facility] Address [address] [place] [address] Care Team Providers Name Role Phone Unavailable Primary Care Provider Unavailable Reason for Visit Radiation Therapy (Routine) - Closed Specialty Diagnoses / Procedures Referred By Contact Refer red To Contact Diagnoses Malignant Neoplasm Of Supraglottic (HCC) Ursula Aguirre M.D. [facility] Procedures Prior Auth Rad Tx [place] IMRT COMPLEX [address] [place] [address] [phone] Referral ID Status Reason Start Date Expiration Date Visits Requ ested Visits Authorized [id number] Closed 03/15/2019 03/14/2020 35 35 Encounter Details Date Type Department Care Team Description 04/03/2019 Hospital Encounter Department of Radiation Bud Aguirre I., [place]cology [place] [address] [facility] [address] [place] [phone] Social History Tobacco Use Types Packs/Day Years [...] or relatives? How often do you attend sikhism or Never 2018 restorationist services? Do you belong to any clubs or No 02/21/2019 organizations such as sikhism groups, unions, fraChef Dovunque or athletic groups, or school groups? How [...] Eastman M.D., M.S. [address] [place] [phone] 04/26/2022 Office Visit Otorhinolaryngology Roxanne Lanza APRN, C.N.P. [address] [place] [phone] 04/28/2022 Appointment Radiation Oncology Ursula Aguirre M.D. [address] [place] [phone] documented as of this encounter Visit Diagnoses Not on filedocumented in this encounter
--- OUTSIDE RECORDS SUMMARY | 2022-03-31 14:53 | XMS_ITS | Encounter Summary ---
:1955 Author Organization [facility] Address [address] [place] [address] Care Team Providers Name Role Phone Unavailable Primary Care Provider Unavailable Reason for Referral Outpatient (Routine) - Closed Specialty Diagnoses / Procedures Referred By Contact Refer red To Contact Nutrition Diagnoses Malignant Neoplasm Of Supraglottic (HCC) Ursula Aguirre M.D. [address] [phone] Referral ID Status Reason Start Date Expiration Date Visits Requ ested Visits Authorized [id number] Closed 03/15/2019 03/14/2020 1 1 Reason for Visit Outpatient (Routine) - Closed Specialty Diagnoses / Procedures Referred By Contact Refer red To Contact Nutrition Diagnoses Malignant Neoplasm Of Supraglottic (HCC) Ursula Aguirre M.D. [facility] [address] [place] [address] [phone] Referral ID Status Reason Start Date Expiration Date Visits Requ ested Visits Authorized [id number] Closed 03/15/2019 03/14/2020 1 1 Encounter Details Date Type Department Care Team Description 03/29/2019 Hospital Encounter Department of Mary Aguirre M.D. [address] [place] [phone] Malignant Neoplasm Radiation Oncology Natasha Brandon, ALINEN [address] [place] [phone] Of Supraglottic in [place], ([facility] [place] [address] [place] [phone] Social History Tobacco Use Types Packs/Day Years [...] do you attend lutheran or Never 2018 yarsani services? Do you [...] - - Height 167 cm (5' 5.75) 03/29/2019 3:17 PM CDT Body Mass Index - - [...] encounter Progress Notes Natasha Brandon RDN - 03/29/2019 3:43 PM CDT CHIEF COMPLAINT/REASON FOR VISIT Malignant Neoplasm Of Supraglottic (HCC) (C32.1) HISTORY OF PRESENT ILLNESS Mrs. 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 Definitive radiotherapy to the supraglottic tumor initiated on March 26, 2019; anticipated date of completion is May 04, 2019. PAST MEDICAL HISTORY 1. COPD 2. Psoriatic arthritis 3. Diabetes mellitus type 2 4. Hypertension 5. Anxiety 6. 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 Hyperlipidemia 8. Obesity 9. Gastroesophageal reflux disease 10. Rotator cuff syndrome, bilateral 11. Supraglottic squamous cell carcinoma, as per HPI ?? PAST SURGICAL HISTORY 1. Umbilical hernia repair, 2010 2. Right breast biopsy, benign (X2, 2010 and 2018) 3. Tubal ligation, 1984 Met with patient and her son. ASSESSMENT Relevant Social and Family History She lives in [place], [place] with one of her sons and [id number]. She will live in [place] with a different son during the week (Tuesday thru Tuesday). She is . She has 4 sons, 10 grand children and 2 great grandchildren. 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 She is a current every day smoker with a 40 year history of 2.5 to 0.75 packs per day. She is currently down to 5 cigarettes per day. She does not drinkalcohol. ?? Nutrition Focused Physical Findings Mouth/esophagus/Throat: No trouble with pain or swallowing per patient. Edentulous. Is able to eat most foods. Bowels: Was experiencing diarrhea. Relieved with imodium. Nausea/vomiting: none Procedures/Labs: Swallow Evaluation 03/28/19: Diagnosis: Mild oropharyngeal dysphagia ??Recommendations: ??1. Patient is safe to continue a general diet with thin liquids as tolerated. 2. Take small bites/sips one at a time and eat slowly. 3. Alternate solids and liquids frequently during mealtimes. 4. Perform swallow exercises as instructed. 5. Follow-up with Speech Pathology 6-weeks following completion of radiation treatment or sooner as needed. Food/Nutrition Related History Today was 2 BLT sandwiches. She plans to have [employer] for supper. She drinks coffee and 7-8 (16 ounce) bottles of water each day. Her sons do the grocery shopping and cooking. Weight History Date: 03/29/19 Weight: 87.6 kg Height 167 cm Body mass index is 31.4 kg/m??. Usual body weight: 230# (104.5 kg) last year, per patient 03/16/19: 88.5 kg 03/28/19: 87.7 kg Estimation of Nutritional Needs Weight Used for Equation Calculations: 87.6 kg Date: 03/29/19 Total Calorie Needs: 7196-3042 (HB basal + 20%) Estimated Protein Needs: 88 to 105 grams per day (1-1.2 g/kg) Estimated Fluid Needs: 2200 ml per day (25 ml/kg) NUTRITION DIAGNOSIS Unintentional weight loss related to cancer as evidenced by approximate 16.8 kg weight loss in the last year per patient report. Food- and nutrition-related knowledge deficit related to Cancer with radiation therapy as evidenced by need for nutrition education to maintain weight and nutrition status during treatment Nutrition Diagnosis Reassessment: Ongoing Nutrition Prescription/Recommendation 1340-5095 kcals, 88-105 grams protein, 9+ cups fluid INTERVENTION Education: discussed principles of weight maintenance and oral intake recommendations for patients undergoing cancer treatment. Provided patient with calorie, protein and fluid goals. Discussed different options for nutrition supplements and samples were provided. Encouraged patient to keep track of her food and fluid intake. Provided Eating Hints for Cancer booklet and Calorie and Protein Content ofCommon Foods. MONITORING AND EVALUATION: Nutrition parameter to monitor: Weight Desired Outcome: Maintain weight within 5-10% (starting weight 87.6 kg) Patient Goal(s): 1. Soft diet with addition of nutrition supplements to meet estimated nutrition needs. 2. Aim for 9+ cups of fluid per day. 3. Keep track of food and fluid intake. FOLLOW UP PLAN: She will follow up next week. RDN's contact information provided and she was encouraged to call withquestions. Time spent with patient (minutes): 30 documented in this encounter Plan of Treatment Upcoming Encounters Date Type Specialty Care Team Description 04/22/2022 Clinical Admitting/Central Communication Scheduling 04/26/2022 Appointment Radiology Mark Eastman M.D., M.S. [address] [place] [phone] 04/26/2022 Office Visit Otorhinolaryngology Roxanne Lanza, CRM MARKETING EXECUTIVE, C.N.P. [address] [place] [phone] 04/28/2022 Appointment Radiation Oncology Ursula Aguirre M.D. [address] [place] [phone] Scheduled Referrals Name Type Priority Associated Diagnoses Order S chedule Nutrition - Outpatient Referral Routine Malignant Neoplasm On ce for 1 Medical nutrition Of Supraglottic Occurre nces therapy consult (HCC) starting (clinic) until 9 documented as of this encounter Visit Diagnoses Diagnosis Malignant Neoplasm Of Supraglottic (HCC) documented in this encounter
--- OUTSIDE RECORDS SUMMARY | 2022-03-31 14:53 | XMS_ITS | Encounter Summary ---
:1955 Author Organization [facility] Address [address] [place] [address] Care Team Providers Name Role Phone Unavailable Primary Care Provider Unavailable Reason for Referral Outpatient (Routine) - Closed Specialty Diagnoses / Procedures Referred By Contact Refer red To Contact Nutrition Diagnoses Malignant Neoplasm Of Supraglottic (HCC) Summer [facility].A.-C., [facility] [address] [place] [address] [phone] Referral ID Status Reason Start Date Expiration Date Visits Requ ested Visits Authorized [id number] Closed 03/29/2019 03/28/2020 1 1 Encounter Details Date Type Department Care Team Description 03/29/2019 Orders Only Department of Summer Pérez Malignant Joao plasm Of Radiation Oncology in [place], M .S. Supraglottic (HCC) [facility] [address] [place] [address] (Primary Dx) [address] [place] [phone] Social History Tobacco Use Types Packs/Day Years [...] do you attend restorationism or Never 2018 nondenominational services? Do you [...] Radiology Mark Eastman M.D., M.S. [address] [place] [phone] 04/26/2022 Office Visit Otorhinolaryngology Roxanne Lanza APRN, C.N.P. [address] [place] [phone] 04/28/2022 Appointment Radiation Oncology Ursula Aguirre M.D. [address] [place] [address] [phone] Scheduled Referrals Name Type Priority Associated Diagnoses Order S chedule Nutrition - Outpatient Referral Routine Malignant Neoplasm 5 Occurrences Medical nutrition Of Supraglottic startin g 03/29/2019 therapy consult (HCC) until 2019 (clinic) documented as of this encounter Visit Diagnoses Diagnosis Malignant Neoplasm Of Supraglottic (HCC) - Primary documented in this encounter
--- OUTSIDE RECORDS SUMMARY | 2022-03-31 14:54 | XMS_ITS | Encounter Summary ---
:1955 Author Organization [facility] Address [address] [place] [address] Care Team Providers Name Role Phone Unavailable Primary Care Provider Unavailable Reason for Referral Outpatient (Routine) - Closed Specialty Diagnoses / Procedures Referred By Contact Refer any To Contact Otorhinolaryngology Frank Arrieta M.D . 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 [address] [phone] Referral ID Status Reason Start Date Expiration Date Visits Requ ested Visits Authorized [id number] Closed 02/22/2019 02/22/2020 1 1 Encounter Details Date Type Department Care Team Description 02/22/2019 Orders Only Department of Frank Arrieta Malignant Joao plasm Otorhinolaryngology guanakito Shoemaker M.D. Of ad Face And [place], [place] Neck (HCC) (Primary [address] [place] [address]) [place] [phone] Social History Tobacco Use Types Packs/Day [...] do you attend anabaptist or Never 2018 baptism services? Do you belong to any clubs or No 02/21/2019 organizations such as anabaptist groups, unions, fraPruffi or athletic groups, or school groups? How [...] Appointment Radiology Mark Eastman M.D., M.S. [address] [place] [phone] 04/26/2022 Office Visit Otorhinolaryngology Roxanne Lanza APRN, C.N.P. [address] [place] [phone] 04/28/2022 Appointment Radiation Oncology Ursula Aguirre M.D. 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
--- OUTSIDE RECORDS SUMMARY | 2022-03-31 14:54 | XMS_ITS | Encounter Summary ---
:1955 Author Organization [facility] Address [address] [place] [address] Care Team Providers Name Role Phone Unavailable Primary Care Provider Unavailable Encounter Details Date Type Department Care Team Description 03/15/2019 Clinical Communication Department of Radiation Francisca Tapia, Oncology in [place], [place], Ph. D. [place] [address], [address] [facility] [address] [place], [place] [id number] [phone] Social History Tobacco Use Types Packs/Day Years [...] this encounter Miscellaneous Notes Telephone Encounter - Francisca Tapia M.D., Ph.D. - 03/15/2019 1:49 PM CDT I called patient and her [id number] Darlin answered the phone, she is authorized to discuss patient's care. I explained that I am calling to check on patient's decision about treatment. She said she had called our clinic yesterday afternoon to let us know patient has decided to undergo radiation treatment [facility]. I apologized to her that I hadn't been noticed about her phone call. I discussed with her that I will place the referral for patient to be seen in our [place] [facility]. I also discussed with her about the February 21 CT report of suspected bilateral adrenal adenoma with MRI recommended due to the large size, and also there is asymmetry in the right breast with recommendation of mammography. Darlin said that patient did have breast biopsy last year, unaware of whether follow up mammography is recommended this year. I recommended patient see her primary care provider to follow up on these findings, and help coordinate her care for these. Darlin voiced understanding, and will take patient to local provide to sign release of information for them to obtain patient's records from [place] to follow up on these. I told her that our [place] clinic will contact them with appointment schedules. She has no otherquestions. Addendum: Dr. Aguirre will see patient in [place], and recommended MRI and mammography be done in [place] with potential faster turn around of result. I talked with Darlin, she said patient's breastbiopsy was done earlier this year, [facility] from [facility] of [facility]. We will obtain patient's prior mammography for review. We will order the MRI to evaluate the adrenal masses to be done in [place]. Darlin agrees with the plan and expressed appreciation of the coordination of care. documented in this encounter Plan of Treatment Upcoming Encounters Date Type Specialty Care Team Description 04/22/2022 Clinical Admitting/Central Communication Scheduling 04/26/2022 Appointment Radiology Mark Eastman M.D., M.S. [address] [place] [phone] 04/26/2022 Office Visit Otorhinolaryngology Roxanne Lanza APRN, C.N.P. [address] [place] [phone] 04/28/2022 Appointment Radiation Oncology Ursula Aguirre M.D. [address] [place] [phone] documented as of this encounter Visit Diagnoses Not on filedocumented in this encounter
--- OUTSIDE RECORDS SUMMARY | 2022-03-31 14:54 | XMS_ITS | Encounter Summary ---
:1955 Author Organization [facility] Address [address] [place] [address] Care Team Providers Name Role Phone Unavailable Primary Care Provider Unavailable Encounter Details Date Type Department Care Team Description 02/21/2019 Ancillary Procedure Department of Otorhinolaryngology Social History [...] do you attend restoration or Never 2018 church services? Do you [...] Radiology Mark Eastman M.D., M.S. [address] [place] [phone] 04/26/2022 Office Visit Otorhinolaryngology Roxanne Lanza, [employer], C.N.P. [address] [place] [phone] 04/28/2022 Appointment Radiation Oncology Ursula Aguirre M.D. [address] [place] [phone] documented as of this encounter Procedures Procedure Name Priority Date/Time Associated Comments Diagnosis OTORHINOLARYNGOLOGY IMAGE Routine 02/21/2019 10:06 Results for this EXAM AM CDT procedure are i n the results section. documented in this encounter Results Direct Laryngoscopy-Otorhinolaryngology Image Exam (02/21/2019 10:06 AM CDT) Specimen (Source) Anatomical Collection Method Collection Time Re ceived Time Location / / Volume Laterality 02/21/2019 10:10 AM CDT Narrative [facility] - 02/21/2019 10:06 AM CDT This order has been created [...]
--- OUTSIDE RECORDS SUMMARY | 2022-03-31 14:54 | XMS_ITS | Encounter Summary ---
:1955 Author Organization [facility] Address [address] [place] [id number] Care Team Providers Name Role Phone Unavailable Primary Care Provider Unavailable Reason for Visit Speech Pathology (Routine) - Closed Specialty Diagnoses / Procedures Referred By Contact Refer red To Contact Diagnoses Malignant Neoplasm Of Supraglottic (HCC) Ursula Aguirre M.D. [facility] Procedures STEERER Dysphagia evaluate and treat [address] [place] [phone] Referral ID Status Reason Start Date Expiration Date Visits Requ ested Visits Authorized [id number] Closed 03/16/2019 03/15/2020 1 1 Encounter Details Date Type Department Care Team Description 03/28/2019 Comprehensive Visit Department of Ayesha Aguirre M.D. [address] [place] [phone] Dysphagia Oropharyngeal Phase (Primary D x); [facility] CCC-[facility]ERER [address] [place] [phone] Malignant Neoplasm Of Supraglottic (HCC) [place], [place] [address] [place] [phone] Social History Tobacco Use Types Packs/Day Years [...] do you attend tenriism or Never 2018 moravian services? Do you [...] documented as of this encounter Consult Notes Fani Montalvo M.S., [facility] - 03/28/2019 7:45 AM CDT Speech Pathology Dysphagia Videofluoroscopic Swallow Study (VFSS) Outpatient Session Type: Evaluation Length of session: 90 minutes SUBJECTIVE Referred By: Ursula Aguirre M.D. Reason for Consult: Dysphagia History: Ms. Narayan is a 63 year old female referred to speech pathology for dysphagia consultation. 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 She has elected to undergoradiation treatment rather than surgery which would have included a laryngectomy. Radiation treatment was initiated on Tuesday. The patient has undergone 1 treatment. Please see clinical notes for complete history and details. The patient attended today's evaluation session with her daughter. The patient did not wear her hearing aids to today's evaluation so she had a difficult time answering questions. Her daughter answer the majority of the case history. She reportedly coughs on knots in particulate foods. Her daughter questions whether this is secondary to her dentures being ill fitting and old. The patient denies any coughing with thin liquids and does endorse some weight loss but was unable to quantify how much. She denies any pain with swallowing. Referral for speech pathology included a video fluoroscopic swallow evaluation allowing for formal assessment of the oral and pharyngeal stages of the swallowing mechanism. Overall safety and efficiency will be assessed. OBJECTIVE Oral Motor: Dentition: Edentulous Labial ROM: Within Normal Limits (WNL) Labial Symmetry: Within Normal Limits (WNL) Labial Strength: Within Normal Limits (WNL) Lingual ROM: Within Normal Limits (WNL) Velum: (0) Within Normal Limits (WNL) Mandible Strength: (0) Within Normal Limts Cough: (0) Within Normal Limts Motor Speech: Intelligibility: Intelligibility reduced Intelligibility Word: 1%-50% Intelligibility Phrase: 1%-50% Intelligibility Sentence: 1%-50% Intelligibility Connected Speech/Conversation: 1%-50% Breath Support: Adequate for speech Dysarthria: Unable to assess Most Recent Value Description of Procedure Previous MBS/VFSS No Planes Tested Lateral, AP Type Assessment MBS IMP Statement of Consent Yes, Discussed goals, risks, alternatives, and the necessity of other members of the procedureal team participating in the procedure with the patient., The patient understands and wishes to proceed Consistencies Assessed (MBS) Consistencies Assessed Yes Thin Lip Closure 0: No labial escape Tongue Control 0: Cohesive bolus between tongue to palatal seal Bolus Transport/Lingual Motion 0: Brisk tongue motion Oral Residue 0: Complete oral clearance Onset of Pharyngeal Swallow 0: Bolus head at posterior angle of ramus (first hyoid excursion) Soft Palate Elevation 0: No bolus between soft palate (SP)/pharyngeal wall (PW) Laryngeal Elevation 0: Complete superior movement of thyroid cartilage with complete approximation of arytenoids to epiglottic petiole Anterior Hyoid Excursion 0: Complete anterior movement Epiglottic Movement 1: Partial inversion Laryngeal Vestibular Closure 1: Incomplete, narrow column air/contrast in laryngeal vestibule Pharyngeal Stripping Wave 0: Present - complete Pharyngoesophageal Segment Opening 0: Complete distension and complete duration, no obstruction of flow Tongue Base Retraction 1: Trace column of contrast or air between TB and PW Pharyngeal Residue 0: Complete pharyngeal clearance Esophageal Clearance 0: Complete clearance, esophageal coating Penetration/Aspiration Scale 2: Material enters the airway, remains above the vocal folds, and is ejected from the airway. Penetration Yes, during the swallow Aspiration No Puree Lip Closure 0: No labial escape Tongue Control 0: Cohesive bolus between tongue to palatal seal Bolus Transport/Lingual Motion 0: Brisk tongue motion Oral Residue 0: Complete oral clearance Onset of Pharyngeal Swallow 1: Bolus head in valleculae Soft Palate Elevation 0: No bolus between soft palate (SP)/pharyngeal wall (PW) Laryngeal Elevation 0: Complete superior movement of thyroid cartilage with complete approximation of arytenoids to epiglottic petiole Anterior Hyoid Excursion 0: Complete anterior movement Epiglottic Movement 1: Partial inversion Laryngeal Vestibular Closure 0: Complete, no air/contrast in laryngeal vestibule Pharyngeal Stripping Wave 0: Present - complete Pharyngoesophageal Segment Opening 0: Complete distension and complete duration, no obstruction of flow Tongue Base Retraction 1: Trace column of contrast or air between TB and PW Pharyngeal Residue 0: Complete pharyngeal clearance Esophageal Clearance 0: Complete clearance, esophageal coating Penetration/Aspiration Scale 1: Material does not enter airway Penetration No Aspiration No Solid Lip Closure 0: No labial escape Tongue Control 0: Cohesive bolus between tongue to palatal seal Bolus Prep/Mastication 0: Timely and efficient chewing and mashing Bolus Transport/Lingual Motion 0: Brisk tongue motion Oral Residue 0: Complete oral clearance Onset of Pharyngeal Swallow 0: Bolus head at posterior angle of ramus (first hyoid excursion) Soft Palate Elevation 0: No bolus between soft palate (SP)/pharyngeal wall (PW) Laryngeal Elevation 0: Complete superior movement of thyroid cartilage with complete approximation of arytenoids to epiglottic petiole Anterior Hyoid Excursion 0: Complete anterior movement Epiglottic Movement 1: Partial inversion Laryngeal Vestibular Closure 0: Complete, no air/contrast in laryngeal vestibule Pharyngeal Stripping Wave 0: Present - complete Pharyngoesophageal Segment Opening 0: Complete distension and complete duration, no obstruction of flow Tongue Base Retraction 1: Trace column of contrast or air between TB and PW Pharyngeal Residue 2: Collection of residue within or on pharyngeal structures Pharyngeal Residue Location Valleculae Esophageal Clearance 0: Complete clearance, esophageal coating Penetration/Aspiration Scale 1: Material does not enter airway Penetration No Aspiration No MBSImP Scores Oral Impairment Score 1 Pharyngeal Impairment Score 4 Esophageal Impairment Score 0 Assessment During the videofluoroscopic swallow study, lateral and AP views were recorded as the patient swallowed thin barium, nectar-thick barium (AP view only), applesauce, and a cookie. Oral control of all consistencies was good. The pharyngeal swallow response was delayed to the level of the vallecula with a pplesauce. Range of tongue base retraction was mildly reduced but hyolaryngeal excursion was adequate. The epiglottis partially inverted across consistencies resulting in one episode of transient laryngeal penetration of thin liquid when used to clear the cookie consistency. There was no evidence of aspiration with any test consistencies during today's evaluation. The cookie bolus was moderately retained in the vallecula but was cleared with a liquid wash. AP view revealed symmetrical flow through the pharynx. Relaxation through the cricopharyngeal segment was good. Images from today's study are available for review on [employer]. In summary, Ms. Narayan is demonstrating mild oropharyngeal dysphagia characterized by mild pharyngeal weakness resulting in retention of the cookie and one episode of laryngeal penetration of thin liquid when used as a liquid wash. It is recommended the patient continue to consume a general diet withthin liquids as tolerated. Education was provided regarding possible swallow function changes associated with radiation treatment. Pharyngeal swallow exercises (Effortful swallow, pitch exercise, tongue base exercise, Olga Exercise, Mendolsohn Maneuver) were provided and taught. Questions were answered to the best of my ability. Re-evaluation of swallow is recommended 6-weeks following completion of radiation treatment or sooner should dysphagia symptoms worsen. Functional Oral Intake Scale: Level 6 - Total oral diet with multiple consistencies without special preparation, but with specific food limitations Functional Oral Intake Scale: Level 6 - Total oral diet with multiple consistencies without special preparation, but with specific food limitationsImpressions Dysphagia impairment characterized by: Mild pharyngeal stage dysphagia Diagnosis: Mild oropharyngeal dysphagia Plan Recommendations: 1. Patient is safe to continue a general diet with thin liquids as tolerated. 2. Take small bites/sips one at a time and eat slowly. 3. Alternate solids and liquids frequently during mealtimes. 4. Perform swallow exercises as instructed. 5. Follow-up with Speech Pathology 6-weeks following completion of radiation treatment or sooner as needed. documented in this encounter Plan of Treatment Upcoming Encounters Date Type Specialty Care Team Description 04/22/2022 Clinical Admitting/Central Communication Scheduling 04/26/2022 Appointment Radiology Mark Eastman M.D., M.S. [address] [place] [phone] 04/26/2022 Office Visit Otorhinolaryngology Roxanne Lanza APRN, C.N.P. [address] [place] [phone] 04/28/2022 Appointment Radiation Oncology Ursula Aguirre M.D. [address] [place] [phone] documented as of this encounter Visit Diagnoses Diagnosis Dysphagia Oropharyngeal Phase - Primary Malignant Neoplasm Of Supraglottic (HCC) documented in this encounter
--- OUTSIDE RECORDS SUMMARY | 2022-03-31 14:54 | XMS_ITS | Encounter Summary ---
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 How often do you attend yarsanism or Never 2018 uatsdin services? Do you belong to any clubs or No 02/21/2019 organizations such as yarsanism groups, unions, fraternal or athletic groups, or [...] (COZAAR) 100 mg Take 100 mg by 11 019 03/28/2019 tablet mouth daily. metFORMIN (GLUCOPHAGE) 500 2 (two) times a 11/1311/02/2019 mg tablet day. metFORMIN (GLUCOPHAGE) 500 Daily 0 8 10/16/2021 mg tablet potassium chloride Daily 0 04/21/20182021 (KLOR-CON M/KDUR) 20 mEq ER tablet raNITIdine (ZANTAC) 150 mg Take 150 mg by 11 02/1808/02/2019 tablet mouth 2 (two) times a day. documented as of this encounter Consult Notes Francisca Tapia M.D., Ph.D. - 03/13/2019 1:30 PM CDT RADIATION ONCOLOGY CONSULTATION REQUESTING PROVIDER Frank Arrieta M.D. REASON FOR CONSULT The primary encounter diagnosis was Malignant Neoplasm Of Supraglottic (HCC). 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 /No chief complaint on file. Supervised by Dr. Domingo Love. SUBJECTIVE HISTORY OF PRESENT ILLNESS Obdulia Narayan is a 63 y.o. lifelong smoker female with cT2N0 supraglottic squamous cell carcinoma who presents to the Department of Radiation Oncology for discussion of radiotherapy. Oncology history: 1. November 2018: Noted throat pain with swallowing along with intermittent ear pain, managed with Tylenol. 2. February 2019: Throat pain progressively worsened, odynophagia, had 10 lb unintention weight loss, noted hoarseness over the past few weeks, difficulty sleeping due to increased secretion 3. 02/08/2019 Seen by local ENT, exam noted a large fungating mass overlying the posterior left arytenoid, extending over to the right arytenoid and into the piriform sinus, vocal cord move normally, shotty adenopathy on the left side neck. 4. 02/12/2019: Local CT neck with contrast reported asymmetric soft tissue prominence at the level of the epiglottis, within left posterior lateral aspect of the hypopharynx with effacement of the leftpiriform sinus. No evidence of destructive or erosive changes of the surrounding cartilage. Associated narrowing of the airway immediately superior to the level of the cords. No adenopathy. 5. 02/21/2019: Seen by Dr. Mabry and Dr. Arrieta of ENT and [facility], exam reported an exophytic supraglottic lesion involving left aryepiglottic fold that extends down towards the apex of the arytenoid. Vocal cord mobility appears normal. Punch biopsy of the laryngeal mass was positive for invasive squamous cell carcinoma moderately differentiated. The patient was set up to see nicotine dependence clinic for smoking cessation. 6. 02/21/2019: CT chest reported multiple indeterminate bilateral sub 6 mm pulmonary nodules a, someof which appear ground-glass in appearance. Suspected bilateral adrenal adenomas, given size MRI characterization are recommended. Slightly asymmetric nodular parenchyma of right breast compared to left, mammography recommended if not recently performed. Penetrating atherosclerotic ulcer in the aorticarch. Advanced emphysema. Ms. Narayan presented with her son and [id number] to discuss radiotherapy options for the newlydiagnosed supraglottic laryngeal squamous cell carcinoma. She acknowledge of poor lung function and episodes of aspiration when swallowing. She had teeth extraction and wears dentures. She wears hearing aids. REVIEW OF SYSTEMS Review of systems as per HPI. Medications, Allergies, Pertinent Past Medical History, and Past Surgical History were reviewed. OBJECTIVE There were no vitals taken for this visit. PHYSICAL EXAM General: alert and oriented in no acute distress, ECOG 1 Nose: External appearance within normal distribution. Oral Cavity: No trismus, dentures in place. Tongue midline and mobile. Oral and buccal mucosa pink and moist. Examination of the oral cavity shows no gross masses or lesions. Neck: Supple, normal range of motion. Trachea midline. No palpable cervical lymphadenopathy or masses bilaterally. Thyroid and parotid glands without palpable masses. Lungs: no apparent difficulty breathing on room air Nasopharyngoscopy: Nasal cavity was prepared with NeoSynephrine and lidocaine spray. A flexible fiberoptic scope was passed into the right nare. There were no masses, polyps, or lesions in the nasal cavity or nasopharynx. Examination of the vallecula, epiglottis, true vocal cords, false vocal cords, and piriform sinuses does not reveal any masses or lesions. Exophytic lesion along the left posterior aryepiglottic fold with extension to the right posterior area epiglottic fold, consistent with the biopsy positive squamous cell carcinoma. Vocal cord motility was normal. The base of tongue was examined as the scope was withdrawn and did not reveal any lesions. Patient tolerated the procedure well. ASSESSMENT / PLAN 1. Malignant Neoplasm Of Supraglottic (HCC) Obdulia Narayan presented with her son and the [id number] for radiotherapy consultation for the newly diagnosed supraglottic squamous cell carcinoma involving the aryepiglottic folds. He was seen today with Dr. Love, please see his note for further information. We discussed the clinical staging of cT2N0, treatment options of surgical resection versus definitive radiation treatment. Given her performance status and pulmonary emphysema, surgery may be a difficult course for her. We discussed the radiation options of daily radiation treatment versus hyper fractionation of twice daily radiation gertrudis atment, we discussed the simulation process with mask, and potential side effects radiation, including but not limited to, fatigue, radiation dermatitis, mucositis, dysgeusia, odynophagia, lymphedema, soft tissue fibrosis, osteonecrosis, and hearing deterioration. Patient and her family expressed an un derstanding, patient is leaning towards radiation. We also discussed the option of treatment in [place] closer to home and one of her son lives. She is scheduled to see Dr. Mabry of ENT surgical option. Patient was given Dr. Love's card and was encouraged to to let us know her decision about treatment modality. If she decides to have definitive radiation treatment, we will refer her to our colleagues in [facility]. Associated attestation - Domingo Love M.D. - 03/15/2019 8:55 AM CDT We discussed with the patient her treatment options including surgery versus definitive radiation therapy. Given her pulmonary status, she may require a total laryngectomy for airway protection. Given the bulk of the tumor, I believe she would require altered fractionation, either with bid treatment or 6 days / week treatment to adequately control the tumor with definitive radiation. Acute and late effects of RT were outlined at length including logistics of care. She will see ENT later today for further discussion. We offered her the possibility of treatment in [place] if she wishes definitve care and I will get in touch with our colleagues there. Finally, we encouraged her to expeditiously make a decision as her tumor may grow with further delay. All questions were answered. Total time: 60 minutes with >50% in discussion. documented in this encounter Plan of Treatment Upcoming Encounters Date Type Specialty Care Team Description 04/22/2022 Clinical Admitting/Central Communication Scheduling 04/26/2022 Appointment Radiology Mark Eastman M.D., M.S. [address] [place] [phone] 04/26/2022 Office Visit Otorhinolaryngology Roxanne Lanza, ASSISTANT DIRECTOR, C.N.P. [address] [place] [phone] 04/28/2022 Appointment Radiation Oncology Ursula Aguirre M.D. 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
--- OUTSIDE RECORDS SUMMARY | 2022-03-31 14:54 | XMS_ITS | Encounter Summary ---
:1955 Author Organization [facility] Address [address] [place] [id number] Care Team Providers Name Role Phone Unavailable Primary Care Provider Unavailable Reason for Visit Radiation Therapy (Routine) - Closed Specialty Diagnoses / Procedures Referred By Contact Refer red To Contact Diagnoses Malignant Neoplasm Of Supraglottic (HCC) Ursula Aguirre M.D. [facility] Procedures Prior Auth Rad Tx [place] IMRT COMPLEX [address] [place] [phone] Referral ID Status Reason Start Date Expiration Date Visits Requ ested Visits Authorized [id number] Closed 03/15/2019 03/14/2020 35 35 Encounter Details Date Type Department Care Team Description 03/28/2019 Hospital Encounter Department of Radiation Bud Aguirre I., [place]cology [place] [address] [facility] [address] [place] [phone] Social History Tobacco Use Types Packs/Day Years [...] do you attend bahai or Never 2018 spiritism services? Do you belong to any clubs or No 02/21/2019 organizations such as bahai groups, unions, fraAgentPiggy or athletic groups, or school groups? How [...] Radiology Mark Eastman M.D., M.S. [address] [place] [phone] 04/26/2022 Office Visit Otorhinolaryngology Roxanne Lanza APRN, C.N.P. [address] [place] [phone] 04/28/2022 Appointment Radiation Oncology Ursula Aguirre M.D. [address] [place] [phone] documented as of this encounter Visit Diagnoses Not on filedocumented in this encounter
--- OUTSIDE RECORDS SUMMARY | 2022-03-31 14:54 | XMS_ITS | Encounter Summary ---
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 [address] [place] [address], [place] [address] Referral ID Status Reason Start Date Expiration Date Visits Requ ested Visits Authorized [id number] Closed 03/19/2019 03/18/2020 1 1 Encounter Details Date Type Department Care Team Description 03/19/2019 Orders Only Department of Radiation Francisca Tapia, [facility] Abdominal Oncology in [place], Ph. D. Aortic Without Rupture [place] [address] [place] [address], (HCC) (Primary Dx) [address] [place] [phone] Social History Tobacco Use Types Packs/Day Years [...] do you attend druze or Never 2018 mosque services? Do you [...] Radiology Mark Eastman M.D., M.S. [address] [place] [phone] 04/26/2022 Office Visit Otorhinolaryngology Roxanne Lanza APRN, C.N.P. [address] [place] [phone] 04/28/2022 Appointment Radiation Oncology Ursula Aguirre M.D. [address] [place] [phone] Scheduled Referrals Name Type Priority Associated Diagnoses Order S chedule Vascular Surgery - Outpatient Referral Routine Aneurysm Abdomi nal Expected: Aneurysm consult Aortic Without 9 (clinic) Rupture (HCC) (Approximate), Expires: 03/19/2022 documented as of this encounter Visit Diagnoses Diagnosis Aneurysm Abdominal Aortic Without Ruptur e (HCC) - Primary documented in this encounter
--- OUTSIDE RECORDS SUMMARY | 2022-03-31 14:54 | XMS_ITS | Encounter Summary ---
:1955 Author Organization [facility] Address [address] [place] [address] Care Team Providers Name Role Phone Unavailable Primary Care Provider Unavailable Encounter Details Date Type Department Care Team Description 03/13/2019 Ancillary Procedure Department of Otorhinolaryngology Social History [...] do you attend sabianism or Never 2018 rastafarian services? Do you [...] Radiology Mark Eastman M.D., M.S. [address] [place] [phone] 04/26/2022 Office Visit Otorhinolaryngology Roxanne Lanza, CHIEF RADIATION THERAPIST, C.N.P. [address] [place] [phone] 04/28/2022 Appointment Radiation Oncology Ursula Aguirre M.D. [address] [place] [phone] documented as of this encounter Procedures Procedure Name Priority Date/Time Associated Comments Diagnosis OTORHINOLARYNGOLOGY IMAGE Routine 03/13/2019 3:42 Results for this EXAM PM CDT procedure are i n the results section. documented in this encounter Results Direct Laryngoscopy-Otorhinolaryngology Image Exam (03/13/2019 3:42 PM CDT) Specimen (Source) Anatomical Collection Method Collection Time Re ceived Time Location / / Volume Laterality 03/13/2019 3:47 PM CDT Narrative [facility] - 03/13/2019 3:42 PM CDT This order has been created [...]
--- OUTSIDE RECORDS SUMMARY | 2022-03-31 14:54 | XMS_ITS | Encounter Summary ---
:1955 Author Organization [facility] Address [address] [place] [address] Care Team Providers Name Role Phone Unavailable Primary Care Provider Unavailable Reason for Referral Outpatient (Routine) - Closed Specialty Diagnoses / Procedures Referred By Contact Refer red To Contact Radiation Oncology Diagnoses Malignant Neoplasm Of Supraglottic (HCC) Francisca Tapia M.D., INDRA mas Ph.D. [address] [place] [address], [address], [place] [address] Referral ID Status Reason Start Date Expiration Date Visits Requ ested Visits Authorized [id number] Closed 03/15/2019 03/14/2020 1 1 Scheduling Instructions Please schedule with Dr. Aguirre. Reason for Visit Outpatient (Routine) - Closed Specialty Diagnoses / Procedures Referred By Contact Refer red To Contact Radiation Oncology Diagnoses Malignant Neoplasm Of Supraglottic (HCC) Francisca Tapia M.D., INDRA mas Ph.D. [address] , [address] [place], [place] [address] Referral ID Status Reason Start Date Expiration Date Visits Requ ested Visits Authorized [id number] Closed 03/15/2019 03/14/2020 1 1 Encounter Details Date Type Department Care Team Description 03/16/2019 Hospital Encounter Department of Ursula Aguirre Neoplasm Of Radiation Oncology [facility] Supraglottic (HCC) in [place] [address] [place], [place] [address] [facility] [address] [place], [place] [phone] (Work) [phone] Social History Tobacco Use Types Packs/Day Years [...] do you attend cheondoism or Never 2018 baptism services? Do you [...] Sign Reading Time Taken Comments Blood Pressure 141/82 03/16/2019 10:01 AM CDT Pulse 89 03/16/2019 10:01 AM CDT Temperature 36.4 ??C (97.5 ??F) 03/16/2019 10:01 AM CDT Respiratory Rate - - Oxygen Saturation - - Inhaled Oxygen Concentration - - Weight 88.5 kg (195 lb 1.7 oz) 03/16/2019 10:01 AM CDT Height 167 cm (5' 5.75) 03/16/2019 10:01 AM CDT Body Mass Index 31.73 03/16/2019 10:01 AM CDT documented in this encounter Medications [...] (COZAAR) 100 mg Take 100 mg by 019 03/28/2019 tablet mouth daily. metFORMIN (GLUCOPHAGE) 500 2 (two) times a 11 11/1311/02/2019 mg tablet day. raNITIdine (ZANTAC) 150 mg Take 150 mg by 02/1808/02/2019 tablet mouth 2 (two) times a day. ibuprofen (ADVIL,MOTRIN) Three Times A Day 0 06/1510/22/2021 600 mg tablet as needed metFORMIN (GLUCOPHAGE) 500 Daily 0 8 10/16/2021 mg tablet potassium chloride Daily 0 04/21/20182021 (KLOR-CON M/KDUR) 20 mEq ER tablet documented as of this encounter Consult Notes Ursula Aguirre M.D. - 03/16/2019 11:50 AM CDT SUBJECTIVE REQUESTING PROVIDER Francisca Tapia M.D., Ph.D. and Dr. Cecilio Love, Radiation Oncology, [place], [place] PRIMARY PROVIDER Dr. Swapna De La Fuente REASON FOR CONSULT 1. Malignant Neoplasm Of Supraglottic HISTORY OF PRESENT ILLNESS #1 Malignant Neoplasm Of Supraglottic Mrs. 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 Her oncologic history was reviewed with the patient and her family (3 sons, 1 daughter in law and 1 grand daughter) and is as follows: 1. November 2018: The patient noted throat pain with swallowing along with intermittent ear pain, managed with Tylenol. 2. February 2019: The patient experienced progressively worsening throat pain, odynophagia, 10 pound unintentional weight loss, hoarseness over the past few weeks, and difficulty sleeping due to increased secretion. 3. February 08, 2019: Appointment with Dr. Darryl Grayson???Rasta at [facility]. Physical examination with flexible laryngoscopy revealed a large fungating mass overlying the posterior left arytenoidthat appeared fairly extensive, extending over to the right arytenoid into the piriform sinus. Vocal cords move normally. Patient did have some shotty adenopathy on the left side. Ordered CT scan and then arrange referral to [facility]. 4. February 12, 2019: CT scan of the neck with contrast demonstrated at the level of the epiglottis, there was asymmetric soft tissue prominence within the left posterior lateral aspect of the hypopharynx with effacement of the left piriform sinus. The [...] soft tissue swelling. 5. February 21, 2019: ENT consultation with Dr. Hung Mabry and Dr. Frank Arrieta at [facility]. Physical examination revealed an exophytic mass of the left arytenoid which slightly crossed midline. Itinvolved the medial aspect of the piriform sinus. The vocal cords move symmetrically bilaterally. Biopsy of laryngeal mass was performed. Pathology demonstrated invasive squamous cell carcinoma, moderately differentiated. 6. February 21, 2019: CT scan of the chest demonstrated multiple bilateral solid and ground-glass sub 6 mm pulmonary nodules. This included a 3 mm solid left upper lobe, 4 mm solid nodule in the left lowerlobe, 5 mm solid nodule in the right lower lobe superior segment, a 5 mm solid nodule in the lateralright lower lobe, a ground-glass 4 mm nodule in the left lower lobe posterior segment, and an ill-defined ground-glass 5 mm nodule in the right upper lobe apical/posterior segment. Penetrating atherosclerotic ulcer along the left lateral wall of the aortic arch measuring 5 mm. No mediastinal, hilar, or axial enlarged lymph nodes. Multiple bilateral hypoattenuating nodules in the adrenal glands, indete rminate but likely represent adenomas. More prominent, slightly nodular parenchyma in the right breast relative to the left. 7. March 13, 2019: Radiation oncology consultation with Dr. Francisca Tapai and Dr. Domingo Love. Nasopharyngoscopy demonstrated an [...] will be referred to Radiation Oncology in [place]. 8. March 13, 2019: Follow-up appointment with Dr. Arrieta and Dr. Mabry who discussed treatment options including total laryngectomy versus radiation therapy. They were not able to offer partial laryngectomy given her lung disease and possible aspiration. 9. March 15, 2019: Phone call with Dr. Tapia with the patient's [id number] reported that the patient had decided to undergo radiation treatment in [place]. She will have a follow-up abdominal MRI at [facility]. The patient will follow-up with her primary care provider regarding the asymmetry in the right breast. INTERVAL HISTORY The patient reports that she is doing fairly well. She states that she has greatly cut back on her smoking from 2 1/2 packs per day (at her peak) to 5 cigarettes per day now. She is still coughing and states that it is difficult for her to sleep if she is not in a recliner. She still has a sore throatand left sided ear pain. She thinks she is now maintaining her weight, but did lose about 10 lbs. She notes no other lumps or masses. She is edentulous. She is not wearing he hearing aids today, but isdoing okay with me talking loudly. She is accompanied by her very supportive family today. She denies a history of prior radiation therapy. Her ECOG performance status is 1. REVIEW OF SYSTEMS Review of systems was negative except as documented above. PATIENT REPORTED SYMPTOM SCREEN FATIGUE (Scale: 0 = no fatigue; 10 = worst fatigue you can imagine): 2 PAIN (Scale: 0 = no pain; 10 = worst pain you can imagine): 2 OVERALL QUALITY OF LIFE (Scale: 0 = as bad as can be; 10 = as good as can be): 7 PAST MEDICAL HISTORY 1. COPD 2. Psoriatic arthritis 3. Diabetes mellitus type 2 4. Hypertension 5. Anxiety 6. 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 Hyperlipidemia 8. Obesity 9. Gastroesophageal reflux disease 10. Rotator cuff syndrome, bilateral 11. Supraglottic squamous cell carcinoma, as per HPI PAST SURGICAL HISTORY 1. Umbilical hernia repair, 2010 2. Right breast biopsy, benign (X2, 2010 and 2018) 3. Tubal ligation, 1984 SOCIAL HISTORY She lives in [place], [place] with one of her sons and [id number]. She will live in [place] with a different son during the week (Tuesday thru Tuesday). She is . She has 4 sons, 10 grand children and 2 great grandchildren. 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 She is a current every day smoker with a 40 year history of 2.5 to 0.75 packs per day. She is currently down to 5 cigarettes per day. She does not drinkalcohol. FAMILY HISTORY Sister from an unknown type of cancer. Her father had prostate cancer in his 60s. The following portions of the patient's history were reviewed with the patient and/or family and updated as appropriate: allergies, current medications, oncologic history, family history, medical history, social history, surgical history and problem list. OBJECTIVE BP 141/82 (BP Location: Right arm, Patient Position: Sitting, Cuff Size: Small) Pulse 89 Temp 36.4 ??C (Temporal) Ht 167 cm Wt 88.5 kg BMI 31.73 kg/m?? PHYSICAL EXAM General: Well-developed, well-nourished and in no apparent distress. ENT: Ears- TMs appear normal. Oral cavity inspection reveals moist mucous membranes and no visible lesions. She is edentulous. No masses on palpation. She has a strong gag reflex. Neck: Supple. Her daughter had made a video of the scope procedure in Dr. Mabry's office. I reviewed this with the patient and family. There was an obvious exophytic mass on the left arytenoid with mobile vocal cords. Lymph: No palpable cervical, supraclavicular,or infraclavicular adenopathy. DIAGNOSTICS I have reviewed the available imaging, operative and pathology reports as described above. 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 We discussed her treatment alternatives. She already decided that she does not want a total laryngectomy. She had met with Drs. Tapia and Kate who discussed radiation options with them. We discussed both twice daily radiation as well as once daily radiation (with one twice a day treatment per week) as options. We agreed to pursue the latter. We discussed the rationale, risks, side effects and goals of radiation therapy. We discussed the acute as well as shelter risks, including, but not limited to fatigue, skin erythema, skin desquamation, temporary loss of voice, thick saliva, swallowing difficulties and pain as well as the exterminator helper risks for xerostomia, hypothyroidism, osteoradionecrosis or cartilage necrosis. We discussed the small risks for damage to thebrachial plexus. We discussed the possibility of surgical salvage if she isn't controlled with radiation therapy and this would likely entail a total laryngectomy. They understood and their questions were answered. She wished to proceed with treatment. We tentatively plan on delivering 7000 cGy in 35 fractions starting March 26, 2019. We discussed one BID treatment per week,so that this is an accelerated course given that she will not be receiving concurrent chemotherapy. We discussed the challenges if she would be hospitalized during the course of radiation. We discussed watching the lung nodules for now. She had a recent breast biopsy, so I think we can continue to watch the right breast for now. She will be having an MRI in [place] to evaluate the bilateral adrenal enlargement. We discussed obtaining a swallowing study in [place]. We will have her see our asphalt screed operator and social services analyst here in [place]. She is edentulous, so I will not send her to adentist. My thanks to Trina and Kate for the opportunity to participate in this patient's care. EDUCATION Ready to learn, no apparent learning barriers were identified; learning preferences include listening. Explained diagnosis and treatment plan; patient expressed understanding of the content. CONSENT Discussed the risks, benefits, alternatives, and the necessity of other members of the healthcare team participating in the procedure. All questions answered and consent given. I have spent 60 minutes with this patient today with greater than 50% spent in counseling the patient. Signed by: Ursula Aguirre M.D. 03/16/2019 11:50 AM Radiation Oncology [facility] [address] [place], [place] [phone] documented in this encounter Plan of Treatment Upcoming Encounters Date Type Specialty Care Team Description 04/22/2022 Clinical Admitting/Central Communication Scheduling 04/26/2022 Appointment Radiology Mark Eastman M.D., M.S. [address] [place] [phone] 04/26/2022 Office Visit Otorhinolaryngology Roxanne Lanza, CLEANING SPECIALIST, C.N.P. [address] [place] [phone] 04/28/2022 Appointment Radiation Oncology Ursula Aguirre M.D. [address] [place] [phone] Scheduled Referrals Name Type Priority Associated Diagnoses Order S chedule Radiation Oncology Outpatient Referral Routine Malignant Neopl asm Once for 1 - Head / neck Of Supraglottic Occurrences consult (clinic) (HCC) starting until 9 documented as of this encounter Visit Diagnoses Diagnosis Malignant Neoplasm Of Supraglottic (HCC) documented in this encounter
--- OUTSIDE RECORDS SUMMARY | 2022-03-31 14:54 | XMS_ITS | Encounter Summary ---
:1955 Author Organization [facility] Address [address] [place] [address] Care Team Providers Name Role Phone Unavailable Primary Care Provider Unavailable Reason for Referral Speech Pathology (Routine) - Closed Specialty Diagnoses / Procedures Referred By Contact Refer red To Contact Diagnoses Malignant Neoplasm Of Supraglottic (HCC) Ursula Aguirre M.D. [facility] Procedures SADDLE MECHANIC - Ongoing treatment [address] [place] [phone] Referral ID Status Reason Start Date Expiration Date Visits Requ ested Visits Authorized [id number] Closed 03/16/2019 03/15/2020 1 1 Outpatient (Routine) - Closed Specialty Diagnoses / Procedures Referred By Contact Refer red To Contact Diagnoses Malignant Neoplasm Of Supraglottic (HCC) Ursula Aguirre M.D. [facility] Procedures FL Swallow Function with Video and Speech or OT [place] SWALLOWING STUDY W VIDEO [place] SWALLOWING STUDY W VIDEO [place] SWALLOWING STUDY W VIDEO [address] [place] [address] [phone] Referral ID Status Reason Start Date Expiration Date Visits Requ ested Visits Authorized [id number] Closed 03/16/2019 03/15/2020 1 1 peech Pathology (Routine) - Closed Specialty Diagnoses / Procedures Referred By Contact Refer red To Contact Diagnoses Malignant Neoplasm Of Supraglottic (HCC) Ursula Aguirre M.D. [facility] Procedures SADDLE MECHANIC Dysphagia evaluate and treat [address] [place] [phone] Referral ID Status Reason Start Date Expiration Date Visits Requ ested Visits Authorized [id number] Closed 03/16/2019 03/15/2020 1 1 Encounter Details Date Type Department Care Team Description 03/16/2019 Orders Only Department of Ursula Aguirre Malignant N eoplasm Of Radiation Oncology in [facility] Suprag[facility]ottic (HCC) [facility] [address] [facility] (Primary Dx) [address] [place] [phone] Social History Tobacco Use Types Packs/Day Years [...] do you attend islam or Never 2018 sikh services? Do you belong to any clubs [...] Radiology Mark Eastman M.D., M.S. [address] [place] [phone] 04/26/2022 Office Visit Otorhinolaryngology Roxanne Lanza, RAIL PROJECT ENGINEER, C.N.P. [address] [place] [phone] 04/28/2022 Appointment Radiation Oncology Ursula Aguirre M.D. [address] [place] [phone] documented as of this encounter Results FL Swallow Function with Video and Speech or OT (03/28/2019 8:54 AM CDT) Anatomical Region Laterality Modality Gastro Intestinal, Abdominal RST LOS, Abdominal ARZ N/A Digital Radiography LOS, Abdominal FLA LOS Specimen (Source) Anatomical Collection Method Collection Time Re ceived Time Location / / Volume Laterality 03/28/2019 8:56 AM CDT Impressions 03/28/2019 9:26 AM CDT 1. No aspiration. 2. Laryngeal penetration with thin liqui d when clearing cookie consistency. Please see speech pathology report for f urther details. Narrative 03/28/2019 9:26 AM CDT EXAM: ??FL SWALLOW FUNCTION WITH VIDEO AND SPEECH OR OT FOR RST COMPARISON: ??No relevant comparison lotus ilable. FINDINGS: ??Video swallow study performe d using thin liquid barium, applesauce, and cookie consistencies. No aspiration with any consistency. Laryngeal penetration with thin liquid when cleari ng cookie consistency. Mild vallecular residue with cookie. Hypopharyngeal mass results in mild anterior compression of the hypopharynx. Mild cricopharyngeus mu scle impression which is of doubtful clinical significance. Procedure Note Jose Juan Vidal M.D. - 03/28/2019Formatti ng of this note might be different from the original. EXAM: FL SWALLOW FUNCTION WITH VIDEO AND SPEECH OR OT FOR RST COMPARISON: No relevant comparison avail able. FINDINGS: Video swallow study performed using thin liquid barium, applesauce, and cookie consistencies. No aspiration with any consistency. Laryngeal penetration with thin liquid when cleari ng cookie consistency. Mild vallecular residue with cookie. Hypopharyngeal mass results in mild anterior compression of the hypopharynx. Mild cricopharyngeus mu scle impression which is of doubtful clinical significance. IMPRESSION: 1. No aspiration. 2. Laryngeal penetration with thin liqui d when clearing cookie consistency. Please see speech pathology report for f urther details. Ursula OCAMPO FLUOROSCOPY PROCEDURES documented in this encounter Visit Diagnoses Diagnosis Malignant Neoplasm Of Supraglottic (HCC) - Primary Malignant Neoplasm Of Supraglottic (HCC) documented in this encounter
--- OUTSIDE RECORDS SUMMARY | 2022-03-31 14:54 | XMS_ITS | Encounter Summary ---
:1955 Author Organization [facility] Address [address] [place] [address] Care Team Providers Name Role Phone Unavailable Primary Care Provider Unavailable Reason for Referral MRI/CAT/PET Scan (Routine) - Closed Specialty Diagnoses / Procedures Referred By Contact Refer red To Contact Radiology Diagnoses Laryngeal Disorder Hung Mabry M.D. [facility] Procedures CT Chest with IV Contrast NJ CT THORAX W CNTRST HC CT THORAX W CNTRST NJ CT THORAX W CNTRST 200 [place] [address] Referral ID Status Reason Start Date Expiration Date Visits Requ ested Visits Authorized [id number] Closed 02/21/2019 02/21/2020 1 1 Reason for Visit Outpatient (Routine) - Closed Specialty Diagnoses / Procedures Referred By Contact Refer red To Contact Otorhinolaryngology Diagnoses Laryngeal Disorder Darryl Marcos [place] [address] [place] [phone] Referral ID Status Reason Start Date Expiration Date Visits Requ ested Visits Authorized [id number] Closed 02/09/2019 02/09/2020 1 1 Encounter Details Date Type Department Care Team Description 02/21/2019 Comprehensive Visit Department of Raghavendra Dhillon al Otorhinolaryngology in , [place]ablo Pulido [place], [place] Kimberley [address] [place] [phone] Social History Tobacco Use Types Packs/Day [...] do you attend yarsanism or Never 2018 oriental orthodox services? Do [...] on file documented as of this encounter Procedure Notes Frank Arrieta M.D. - 02/21/2019 8:00 AM CDTAssociated Order(s): Lesion Biopsy Post-Procedure Diagnose(s): Laryngeal Disorder Lesion Biopsy Date/Time: 02/21/2019 9:44 AM Performed by: Frank Arrieta M.D. Authorized by: Frank Arrieta M.D. Care team members present 1. Hung Mabry M.D. 2. Frank Arrieta M.D. PROCEDURE DETAILS Number of lesions: 1 Lesion Number 1: punch biopsy Size of lesion - Lesion 1: 1-2cm. Size of punch: 1 mm Number of punches taken from lesion: 3 Specimen sent for pathology: yes CONSENT Consent obtained: written PRE-PROCEDURE DETAILS Procedure purpose: diagnostic SEDATION / ANESTHESIA Anesthesia method: topical application Topical application type: lidocaine POST-PROCEDURE DETAILS Estimated blood loss: minimal Procedure completed successfully: Yes Complications: No apparent complications Tolerance: well tolerated COMMENTS Using flexible scope with working channel, the area of the lesion was locally anesthetized. 4 biopsies were taken using the grasping forceps. The patient did become anxious but O2 sats remained appropriate, BP was in the 160s systolic and she felt better after a few minutes. documented in this encounter Consult Notes Hung Mabry M.D. - 02/21/2019 8:00 AM CDT SUBJECTIVE This is a supervisory note for Frank Arrieta. This is a new case. REFERRAL SOURCE Dr. Darryl Marcos [address] [place] [phone] REASON FOR CONSULT Probable squamous cell carcinoma of the larynx. HISTORY OF PRESENT ILLNESS Mrs. Narayan is a 63-year-old female with some blood in her secretions with odynophagia at least intermittently, which has prompted evaluation with Dr. Marcos's recognition of a supraglottic lesion. A CT scan has been performed, and she presents for further evaluation and is seen with her daughter. Mrs. Narayan has significant hearing loss, possibly sensorineural, and significant tobacco use history and is currently smoking. I have interviewed and examined the patient. I reviewed Dr. Arrieta' evaluation and find it accurate. OBJECTIVE PHYSICAL EXAMINATION General: Mrs. Narayan is alert, in no acute distress. ENT: Inspection of the oral cavity and oropharynx on visual exam did not reveal a mucosal abnormality. She is edentulous. Palpation of the neck did not reveal a palpable mass that I could appreciate, and no thyroid lesions or cervical adenopathy was apparent. Fiberoptic examination completed after thetopical application of lidocaine and Joao-Synephrine was performed by Dr. Arrieta. I reviewed those images which revealed intact nasopharyngeal and oropharyngeal mucosa. In the supraglottic area there isan exophytic lesion involving the left aryepiglottic fold that extends down towards the apex of the arytenoid. Vocal cord mobility appears normal. There is dried thick mucus and some yellowish character to the mucus on the inferior medial portion of the exophytic lesion. DIAGNOSTICS I reviewed the CT scan which would suggest a fairly limited left aryepiglottic fold lesion without obvious abnormality. Lymph nodes visualized on the CT scan. 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 CT scan of the chest. Pending the path report, we will anticipate return discussion of the diagnosis and treatment planning. We will also plan for a consultation at [facility]. Discussed with the patient and daughter likely diagnosis, the need for discontinuation of smoking, and need for further evaluation and treatment planning. CT CT Job ID: [id number]/alice TUNDET Frank Arrieta M.D. - 02/21/2019 8:00 AM CDT REF PROVIDER: Darryl Marcos M.D. [facility] [address] [place] [address] [place] [address] CHIEF COMPLAINT/PUPROSE OF VISIT: Laryngeal Mass HISTORY OF PRESENT ILLNESS: Ms. Narayan is a 63 y.o. year old female who presents for evaluation of a newly diagnosed laryngeal mass. The history is as follows: About three months ago she began to notice some throat pain with swallowing. It has progressively worsened and she has, therefore, been eating a bit less. During this time, she has also started to experience intermittent ear pain that she treats with tylenol. She has had 10 pounds of unintentional weight loss. She has also noticed some hoarseness over the past few weeks which she has not had before. She has had difficulty sleeping due to increased secretions as well. She denies worsening dyspnea. She was seen by a local ENT who identified a mass on nasopharyngoscopy. She subsequently underwent CT scan which identified a laryngeal mass but no adenopathy. She is a 41 yr .75 ppd smoker. She continues to smoke. She does not drink. She has a history of COPD, psoriatic arthritis, DM II, HTN and possible asthma. Family history is vague though she has a sister who from an unknown type of cancer. She has not had surgery to the head/neck. ROS: Constitutional: Positive for fatigue and loss of appetite. Skin: Positive for skin rash. ENT: Positive for persistent hoarse voice and sinus congestion. Respiratory: Positive for coughing up mucus (phlegm), dry cough, dyspnea and sleep disturbances due to breathing. Genitourinary: Positive for incontinence. Hematologic: Positive for bruises or bleeds easily. Musculoskeletal: Positive for arthralgias, back pain, pain or stiffness in the joints and muscle pain/stiffness. Neurological: Positive for light-headedness, excessive daytime sleepiness, loss of balance or tendency to fall easily and weakness in arms or legs. Psychiatric/Behavioral: Positive for excessive daytime sleepiness/tiredness, stop breathing, choking, or gasping while asleep, little interest or pleasure in doing things over past two weeks, not beingable to stop or control worrying over past two weeks and feeling nervous, anxious, or on edge in past two weeks. The following systems were negative: Eyes, CV, GI DIAGNOSTICS REVIEW: CT scan- Laryngeal mass involving the left arytenoid and medial aspect of the pyriform sinus. CURRENT MEDICATIONS: Reviewed and updated in the EMR. ALLERGIES: Allergies Allergen Reactions ??? Penicillins Rash . PAST MEDICAL HISTORY: No past medical history on file. SURGICAL HISTORY: No past surgical history on file. SOCIAL HISTORY: Social History Socioeconomic History ??? [...] Non-medical: No Tobacco Use ??? Smoking status: Not on file Substance and Sexual Activity ??? Alcohol use: Not on file ??? Drug use: Not on file ??? Sexual activity: Not on file Lifestyle ??? Physical activity: Days per week: 0 days Minutes per session: 0 min ??? Stress: To some extent Relationships ??? Social connections: Talks on phone: More than three times a week Gets together: Once a week Attends oriental orthodox service: Never Active member of club or organization: No Attends meetings of clubs or organizations: Never Relationship status: ??? Intimate partner violence: Fear of current or ex partner: Not on file Emotionally abused: Not on file Physically abused: Not on file Forced sexual activity: Not on file Other Topics Concern ??? Not on file Social History Narrative ??? Not on file FAMILY HISTORY: No family history on file. PHYSICAL EXAM: General: 63 y.o. year old female, in no acute distress. Difficulty ambulating due to arthritis Eyes: EOMI. Ears: Pinna normal, canal patent, TM intact and middle ear space well aerated. Neuro: I/ bilaterally, sensation intact to light touch on the bilaterally. Oral Cavity: no masses or ulcers. Dentition is not intact. Tongue protrusion is normal. OP: No masses or ulcers. [place] tonsilsare present and are 1+. Parotid/Neck: No masses appreciated. No palpable lymphadenopathy. Skin: No rashes or lesions. Nose: Patent, mucosa is moist. Severe left sided septal deviation CITRIX LEAD: No masses. Torus tubaris normal. Symmetric fossa of Rosenmuller. PROCEDURE NOTE Procedure: Flexible laryngoscopy, fiberoptic, diagnostic Details: After topical decongestion and anesthesia with lidocaine and afrin, the flexible laryngoscope was inserted on the right side. The nasal cavity, nasopharynx, oropharynx, and hypopharynx were evaluated. She has an exophytic mass of the left arytenoid which slightly crosses midline. It involves the medial aspect of the pyriform sinus. The vocal cords move symmetrically bilaterally.The patient tolerated the procedure well. DIAGNOSIS/PLAN: #1 Laryngeal Disorder #2 Nicotine/smoking dependence Mrs. Narayan is a 63 yo F with an exophytic mass of the left arytenoid. This is concerning for a SCCa, stage T2N0M0. We obtained a biopsy in clinic to confirm the diagnosis. We discussed that she will require a chest CT for staging purposes. We will contact her with the results of the biopsy. If surgery is considered, we would like to further understand her health, particularly COPD and lung function. She is agreeable to the plan and we will reach out to her with results and to discuss further workup. PATIENT EDUCATION Ready to learn, no apparent learning barriers were identified; learning preferences include listening. Explained diagnosis and treatment plan; patient expressed understanding of the content. documented in this encounter Plan of Treatment Upcoming Encounters Date Type Specialty Care Team Description 04/22/2022 Clinical Admitting/Central Communication Scheduling 04/26/2022 Appointment Radiology Mark Eastman M.D., M.S. [address] [place] [phone] 04/26/2022 Office Visit Otorhinolaryngology Roxanne Lanza, BOBBIN FIXER, C.N.P. [address] [place] [phone] 04/28/2022 Appointment Radiation Oncology Ursula Aguirre M.D. [address] [place] [phone] documented as of this encounter Procedures Procedure Name Priority Date/Time Associated Diagnosis Comme nts SURGICAL PATHOLOGY, Routine 02/21/2019 9:19 AM Laryngeal Disor oriana Results for this [facility] CDT procedure are i n the results section. NJ PUNCH BX SKIN Routine 02/21/2019 8:00 AM Laryngeal Disorder Results for this SINGLE LESION CDT procedure are in the results section. documented in this encounter Results CT Chest with IV Contrast (02/21/2019 1:11 PM CDT) Anatomical Region Laterality Modality Chest, Thoracic RST LOS, Thoracic ARZ LOS, Thoracic N/A Computed Tomography ARZ LOS, Thoracic FLA LOS Specimen (Source) Anatomical Collection Method Collection Time Re ceived Time Location / / Volume Laterality 02/21/2019 2:25 PM CDT Impressions 02/21/2019 3:55 PM CDT 1. Multiple indeterminate bilateral sub-6 mm pulmonary nodules, some of which appear groundglass in appearance. Compar deandra with prior outside imaging would be helpful, if available. 2. Suspected bilateral adrenal adenomas, though given the size, further characterization with MRI would be helpf ul. 3. Slightly asymmetric nodular parenchym a of the right breast compared to the left. Recommend mammography if not recen tly performed elsewhere. 4. ??Penetrating atherosclerotic ulcer i n the aortic arch. 5. Advanced emphysema. Narrative 02/21/2019 3:55 PM CDT EXAM: CT CHEST WITH IV CONTRAST No 3D post-processing performed. COMPARISON: None available. FINDINGS: Multiple bilateral solid and groundglass sub-6 mm pulmonary nodules. This includes a 3 mm solid left upper lobe (s eries 3 image 91), a 4 mm solid nodule in the left lower lobe (series 3 image 2 12), a 5 mm solid nodule in the right lower lobe superior segment (series 3 im age 128), a 5 mm solid nodule in the lateral right lower lobe (series 3 image 171), a groundglass 4 mm nodule in the left lower lobe posterior segment (serie s 3 image 171), and an ill-defined groundglass 5 mm nodule in the right upp er lobe apical/posterior segment (series 3 image 95). Extensive centrilobular emp hysema. Mild bronchial wall thickening bilaterally. The airway is patent. No pl eural effusion or pneumothorax. Penetrating atherosclerotic ulcer along the left lateral wall of the aortic arch measuring 5 mm. Calcified and noncalcifi ed atherosclerotic plaque involving the aorta, great vessels and coronary arteri es. No mediastinal, hilar, or axial enlarged lymph nodes by size criteria. Diffuse hepatic steatosis. Multiple bila teral hypoattenuating nodules in the adrenal glands, the largest of which krysta sures 3.2 cm x 2.3 cm on the right and 3.4 cm x 2.4 cm left. These are indeterm inate but likely represent adenomas. Punctate calcification within the right adrenal gland (series 3 image 264). More prominent, slightly nodular parenchyma i n the right breast relative to the left. Mild multilevel degenerative changes of the spine. No suspicious osseous lesion. Procedure Note Jose Gann M.D. - 02/21/2019Formatt ing of this note might be different from the original. EXAM: CT CHEST WITH IV CONTRAST No 3D post-processing performed. COMPARISON: None available. FINDINGS: Multiple bilateral solid and groundglass sub-6 mm pulmonary nodules. This includes a 3 mm solid left upper lobe (s eries 3 image 91), a 4 mm solid nodule in the left lower lobe (series 3 image 2 12), a 5 mm solid nodule in the right lower lobe superior segment (series 3 im age 128), a 5 mm solid nodule in the lateral right lower lobe (series 3 image 171), a groundglass 4 mm nodule in the left lower lobe posterior segment (serie s 3 image 171), and an ill-defined groundglass 5 mm nodule in the right upp er lobe apical/posterior segment (series 3 image 95). Extensive centrilobular emp hysema. Mild bronchial wall thickening bilaterally. The airway is patent. No pl eural effusion or pneumothorax. Penetrating atherosclerotic ulcer along the left lateral wall of the aortic arch measuring 5 mm. Calcified and noncalcifi ed atherosclerotic plaque involving the aorta, great vessels and coronary arteri es. No mediastinal, hilar, or axial enlarged lymph nodes by size criteria. Diffuse hepatic steatosis. Multiple bila teral hypoattenuating nodules in the adrenal glands, the largest of which krysta sures 3.2 cm x 2.3 cm on the right and 3.4 cm x 2.4 cm left. These are indeterm inate but likely represent adenomas. Punctate calcification within the right adrenal gland (series 3 image 264). More prominent, slightly nodular parenchyma i n the right breast relative to the left. Mild multilevel degenerative changes of the spine. No suspicious osseous lesion. IMPRESSION: 1. Multiple indeterminate bilateral sub- 6 mm pulmonary nodules, some of which appear groundglass in appearance. Compar deandra with prior outside imaging would be helpful, if available. 2. Suspected bilateral adrenal adenomas, though given the size, further characterization with MRI would be helpf ul. 3. Slightly asymmetric nodular parenchym a of the right breast compared to the left. Recommend mammography if not recen tly performed elsewhere. 4. Penetrating atherosclerotic ulcer in the aortic arch. 5. Advanced emphysema. Hung Mabry M.D. IMG CT PROCEDURES Surgical Pathology, Frozen (02/21/2019 9:19 AM CDT) Component Value Ref Test Analysis Performed Pathologis t Range Method Time At Signature Gross Description A. ??Received fresh labeled larynx biopsy is a 0.4 x 0.3 x 02/22/2019 0.2 cm aggregate of white-pink unoriented soft tissue. ??All 10:50 AM submitted for frozen and permanent sections. ??Grossed by CDT KMW. Report Nacho Pozo M.D. [phone] electronically I verify that I have examined all relevant slides/ma terials 10:50 AM signed by for the specimen(s) and rendered or confirmed the diagnosis. 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 ??Holdover to evaluate pe rmanent 10:50 AM Report sections. CDT Frozen section histologic interpretation performed by: Nacho Pozo M.D. [id number] Block Summary A Larynx biopsy 02/22/2019 A1 Larynx biopsy 10:50 AM CDT Interpretation FINAL DIAGNOSIS 02/22/2019 A. ??Larynx, biopsy: ??Invasive squamous cell carcinoma, 10:50 AM moderately-differentiated. CDT Specimen Anatomical Collection Method Collection Time Receive d Time (Source) Location / / Volume Laterality Varies 02/21/2019 9:19 AM 9 CDT 10:24 AM CDT Narrative This result has an attachment that is no t available. Hung Mabry M.D. LAB SURG PATH ORDERABLES Performing Organization Address City/State/ZIP Code Phon e Number [facility] - [address] [place], [place] [address] [facility] [place] PUNCH BX SKIN SINGLE LESION (02/21/2019 8:00 AM CDT) Narrative Hung Mabry M.D. - 02/21/2019 8: 00 AM CDT Frank Arrieta M.D. ? 02/21/2019 ??9:48 AM Lesion Biopsy Date/Time: 02/21/2019 9:44 AM Performed by: Frank Arrieta M.D. Authorized by: Frank Arrieta M.D. Care team members present 1. Hung Mabry M.D. 2. Frank Arrieta M.D. PROCEDURE DETAILS ?? Number of lesions: 1 Lesion Number 1: punch biopsy Size of lesion - Lesion 1: 1-2cm. Size of punch: 1 mm Number of punches taken from lesion: 3 Specimen sent for pathology: yes CONSENT Consent obtained: written PRE-PROCEDURE DETAILS ?? Procedure purpose: diagnostic SEDATION / ANESTHESIA Anesthesia method: topical application Topical application type: lidocaine POST-PROCEDURE DETAILS ?? Estimated blood loss: minimal Procedure completed successfully: Yes ?? Complications: No apparent complications ?? Tolerance: well tolerated COMMENTS ?? Using flexible scope with working channe l, the area of the lesion was locally anesthetized. 4 biopsies were ta contreras using the grasping forceps. The patient did become anxious but O2 sa ts remained appropriate, BP was in the 160s systolic and she felt better af ter a few minutes. Frank Arrieta M.D. PROCEDURE/MINOR SURGICAL ORD ERABLES documented in this encounter Visit Diagnoses Diagnosis Laryngeal Disorder Laryngeal Disorder documented in this encounter
--- OUTSIDE RECORDS SUMMARY | 2022-03-31 14:54 | XMS_ITS | Encounter Summary ---
:1955 Author Organization [facility] Address [address] [place] [phone] Care Team Providers Name Role Phone Unavailable Primary Care Provider Unavailable Reason for Referral MRI/CAT/PET Scan (Routine) - Closed Specialty Diagnoses / Procedures Referred By Contact Refer red To Contact Radiology Diagnoses Laryngeal Disorder Hung Mabry M.D. [facility] Procedures CT Chest with IV Contrast DC CT THORAX W CNTRST HC CT THORAX W CNTRST DC CT THORAX W CNTRST 200 [place] [address] Referral ID Status Reason Start Date Expiration Date Visits Requ ested Visits Authorized [id number] Closed 02/21/2019 02/21/2020 1 1 Reason for Visit MRI/CAT/PET Scan (Routine) - Closed Specialty Diagnoses / Procedures Referred By Contact Refer red To Contact Radiology Diagnoses Laryngeal Disorder Hung Mabry M.D. [facility] Procedures CT Chest with IV Contrast DC CT THORAX W CNTRST HC CT THORAX W CNTRST DC CT THORAX W CNTRST 200 [place] [address] Referral ID Status Reason Start Date Expiration Date Visits Requ ested Visits Authorized [id number] Closed 02/21/2019 02/21/2020 1 1 Encounter Details Date Type Department Care Team Description 02/21/2019 Hospital Encounter Department of Miguel A Mabry l Aiden RadiologyMalcom M.D. [facility], in [place], [place] [address] [place] [address] Social History Tobacco Use Types Packs/Day Years [...] do you attend quaker or Never 2018 restorationism services? Do you [...] a day. documented as of this encounter Plan of Treatment Upcoming Encounters Date Type Specialty Care Team Description 04/22/2022 Clinical Admitting/Central Communication Scheduling 04/26/2022 Appointment Radiology Mark Eastman M.D., M.S. [address] [place] [address] 04/26/2022 Office Visit Otorhinolaryngology Roxanne Lanza APRN, C.N.P. [address] [place] [phone] 04/28/2022 Appointment Radiation Oncology Ursula Aguirre M.D. [address] [place] [phone] documented as of this encounter Procedures Procedure Name Priority Date/Time Associated Comments Diagnosis CT CHEST WITH IV RAD - Routine 02/21/2019 1:11 Laryngeal Results for this CONTRAST (most inpatients PM CDT Disorder procedure a re in and all the results outpatients) section. documented in this encounter Results CT [...] emphysema. Hung Mabry M.D. IMG CT PROCEDURES documented in this encounter Visit Diagnoses Diagnosis Laryngeal Disorder documented in this encounter Administered Medications Inactive Administered Medications - up to 3 most recent administrations Medication Order MAR Action Action Date Dose Rate Site iohexol 300 mg iodine/mL solution Given 02/21/2019 1:05 PM CDT 8 0 mL 1-200 mL (OMNIPAQUE) 1-200 mL, intravenous, Once in imaging, contrast, Starting on Tue02/21/19 at 1239, For 1 dose, Imaging Protocol Orders, Dose per Radiant Medication Guidelines documented in this encounter
--- OUTSIDE RECORDS SUMMARY | 2022-03-31 14:54 | XMS_ITS | Encounter Summary ---
:1955 Author Organization [facility] Address [address] [place] [address] Care Team Providers Name Role Phone Unavailable Primary Care Provider Unavailable Reason for Visit Outpatient (Routine) - Closed Specialty Diagnoses / Procedures Referred By Contact Refer red To Contact Otorhinolaryngology Frank Arrieta M.D . [facility] 200 [place] [phone] Referral ID Status Reason Start Date Expiration Date Visits Requ ested Visits Authorized [id number] Closed 02/22/2019 02/22/2020 1 1 Encounter Details Date Type Department Care Team Description 03/13/2019 Office Visit Department of [place], Malignant Neop lasm Otorhinolaryngology in Hung Serna M.D. Of [place], [place] [facility] (Primary Dx) [address] [place] [phone] Social History Tobacco Use Types Packs/Day [...] documented as of this encounter Progress Notes Hung Mabry M.D. - 03/13/2019 2:45 PM CDT SUBJECTIVE This is a supervisory note for Dr. Arrieta. CHIEF COMPLAINT/REASON FOR VISIT Laryngeal carcinoma. HISTORY OF PRESENT ILLNESS Mrs. 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 She has involvement that would suggest extension across to the right apex of the arytenoid, at least the mucosa in that area. I reviewed the images. I reviewed Dr. Arrieta evaluation as well and find it accurate. 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 Alternatively, radiation therapy could be considered. We discussed the concept of a laryngectomy, convalescence, voice rehabilitation, etc. She will try to make a decision this week in order to facilitate treatment. It is my impression she was favoring considering radiation therapy at the end of our discussion. She will need to let us know her final decision. CT CT Job ID: [id number] Frank Arrieta M.D. - 03/13/2019 2:45 PM CDT CHIEF COMPLAINT/PUPROSE OF VISIT: Ms. Narayan is a 63 y.o. year old female who returns for oncologic follow-up. HISTORY OF PRESENT ILLNESS: Ms. Narayan presents again for follow up regarding her recently diagnosed laryngeal SCCa. Recall that it was a newly identified lesion in our clinic on 02/21 and we biopsied it. Since it was positive, she has been seen by our radiation oncology colleagues. She was seen by Dr. Love who offered him radiation therapy as primary therapy. Since we last saw her, her hoarseness has worsened a bit. She has noticed more coughing fits. She continues to struggle with breathing which is primarily result of her pulmonary pathology. PHYSICAL EXAM: General: 63 y.o. year old female, in no acute distress. Ambulates on and off the exam table without mild difficulty. Nose: Patent, mucosa is moist, no masses, lesions or mucopurulence noted. 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 Torus tubaris normal. Symmetric fossa of Rosenmuller. Oral Cavity: no masses or ulcers. OP: No masses or ulcers. Neck: I did not appreciate any cervical lymphadenopathy Neuro: I/ bilaterally, sensation intact to light touch bilaterally. PROCEDURE NOTE Procedure: Flexible laryngoscopy, fiberoptic, diagnostic Details: After topical decongestion and anesthesia with lidocaine and afrin, the flexible laryngoscope was inserted on the right side. The nasal cavity, nasopharynx, oropharynx, and hypopharynx were normal. At the level of the larynx, the previously identified mass remains. It covers the left arytenoid and begins to extend over midline. The vocal cords move freely bilaterally. The patient tolerated the procedure well. DIAGNOSTICS REVIEW: No new imaging to review DIAGNOSIS/PLAN: #1 Laryngeal SCCa It was a pleasure seeing Mrs. Narayan today. Recall she is a 63-year-old female with a recently diagnosed laryngeal squamous cell carcinoma. We discussed options moving forward. Her options include total laryngectomy versus radiation therapy. We cannot offer partial laryngectomy given her lung diseaseand possible aspiration. After discussing these possibilities, she would like to go home and think about it. We encouraged her to make her the decision by the end of the week. We discussed, in brief, the details of total laryngectomy. We talked about the possibility for TEP placement and ongoing cares. She will contact our office with her decision. documented in this encounter Plan of Treatment Upcoming Encounters Date Type Specialty Care Team Description 04/22/2022 Clinical Admitting/Central Communication Scheduling 04/26/2022 Appointment Radiology Mark Eastman M.D., M.S. [address] [place] [phone] 04/26/2022 Office Visit Otorhinolaryngology Roxanne Lanza APRN, C.N.P. [address] [place] [address] [phone] 04/28/2022 Appointment Radiation Oncology Ursula Aguirre M.D. 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
--- OUTSIDE RECORDS SUMMARY | 2022-03-31 14:54 | XMS_ITS | Encounter Summary ---
:1955 Author Organization [facility] Address [address] [place] [address] Care Team Providers Name Role Phone Unavailable Primary Care Provider Unavailable Reason for Referral Radiation Therapy (Routine) - Closed Specialty Diagnoses / Procedures Referred By Contact Refer red To Contact Diagnoses Malignant Neoplasm Of Supraglottic (HCC) Ursula Aguirre M.D. [facility] Region Procedures Initial Rad Onc Treatment Planning CT Simulation [address] [place] [phone] Referral ID Status Reason Start Date Expiration Date Visits Requ ested Visits Authorized [id number] Closed 03/15/2019 03/14/2020 1 1 Specialty Diagnoses / Procedures Referred By Contact Refer red To Contact Ursula Aguirre M.D. [facility] [address] [place] [address] [phone] Referral ID Status Reason Start Date Expiration Date Visits Requ ested Visits Authorized Outpatient (Routine) - Closed Specialty Diagnoses / Procedures Referred By Contact Refer red To Contact Social Work Ursula Aguirre M.D. [facility] Region [address] [place] [address] [phone] Referral ID Status Reason Start Date Expiration Date Visits Requ ested Visits Authorized [id number] Closed 03/15/2019 03/14/2020 1 1 Outpatient (Routine) - Closed Specialty Diagnoses / Procedures Referred By Contact Refer red To Contact Nutrition Diagnoses Malignant Neoplasm Of Supraglottic (HCC) Ursula Aguirre M.D. [facility] Region [address] [place], [place] [phone] Referral ID Status Reason Start Date Expiration Date Visits Requ ested Visits Authorized [id number] Closed 03/15/2019 03/14/2020 1 1 Specialty Diagnoses / Procedures Referred By Contact Refer red To Contact Ursula Aguirre M.D. [facility] [address] [place] [phone] Referral ID Status Reason Start Date Expiration Date Visits Requ ested Visits Authorized Radiation Therapy (Routine) - Closed Specialty Diagnoses / Procedures Referred By Contact Refer red To Contact Diagnoses Malignant Neoplasm Of Supraglottic (HCC) Ursula Aguirre M.D. [facility] Procedures Prior Auth Rad Tx [place] IMRT COMPLEX [address] [place], [place] [phone] Referral ID Status Reason Start Date Expiration Date Visits Requ ested Visits Authorized [id number] Closed 03/15/2019 03/14/2020 35 35 Encounter Details Date Type Department Care Team Description 03/15/2019 Orders Only Department of Ursula Aguirre N eoplasm Of Radiation Oncology in Kimberley Bacon Supraglottic (HCC) [facility] [address] [facility] (Primary Dx) [address] [place] [phone] Social History Tobacco Use Types Packs/Day Years [...] do you attend holiness or Never 2018 catholic services? Do you [...] Appointment Radiology Mark Eastman M.D., M.S. [address] [place] [phone] 04/26/2022 Office Visit Otorhinolaryngology Roxanne Lanza, NETWORK PROGRAMMER, C.N.P. [address] [place] [phone] 04/28/2022 Appointment Radiation Oncology Ursula Aguirre M.D. [address] [place] [phone] Scheduled Orders Name Type Priority Associated Diagnoses Order S chedule Prior Auth Rad Radiation Oncology Routine Malignant Neoplasm O f Ordered: Tx Supraglottic (HCC) 9 Scheduled Referrals Name Type Priority Associated Diagnoses Order S chedule Radiation Oncology Outpatient Referral Routine Malignant Neopl asm Of Expected: - PRO education Supraglottic ([facility]) 2018 visit (Approximate), Expires: 03/15/2022 Nutrition - Medical Outpatient Referral Routine Malignant Neop lasm Of Expected: nutrition therapy Supraglottic ([facility]) 08/2018 consult (clinic) (Approximat e), Expires: 03/15/2020 Social Work office Outpatient Referral Routine Ex pected: visit (clinic) 03/15/2019 (Approximate), Expires: 03/15/2020 Radiation Oncology Outpatient Referral Routine Malignant Neopl asm Of Expected: - Nurse education Supraglottic ([facility]) 08/2018 visit (clinic) (Approximate) , Expires: 03/15/2020 documented as of this encounter Results Initial Rad Onc Treatment Planning CT Simulation (03/16/2019 12:48 PM CDT) Specimen (Source) Anatomical Location Collection Method / Collectio n Time Received Time / Laterality Volume Narrative MAAME MACHADO - 03/16/2019 12:48 PM CDT Ursula Aguirre M.D. ? 03/16/2019 12:49 PM Initial Rad Onc Treatment Planning CT Si mulation Date/Time: 03/16/2019 12:48 PM Performed by: Ursula Aguirre M.D. Authorized by: Ursula Aguirre M.D. PROCEDURE DETAILS ?? Patient position: supine Arm/Hand position: holding Neighborhood Aide Ring ?? Custom immobilization device: 5 point th ermoplastic mesh mask and Klarity mold ?? Legs/Feet position: straight ?? Motion management: none ?? Bolus: ??None Contrast: ??None CONSENT Consent obtained: written PRE-PROCEDURE DETAILS ?? Procedure purpose: ??Therapeutic SEDATION / ANESTHESIA Anesthesia method: none POST-PROCEDURE DETAILS Procedure completed successfully: yes Ursula Aguirre M.D. 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
--- OUTSIDE RECORDS SUMMARY | 2022-03-31 14:54 | XMS_ITS | Encounter Summary ---
:1955 Author Organization [facility] Address [address] [place] [address] Care Team Providers Name Role Phone Unavailable Primary Care Provider Unavailable Reason for Visit MRI/CAT/PET Scan (Routine) - Closed Specialty Diagnoses / Procedures Referred By Contact Refer red To Contact Radiology Diagnoses Aneurysm Abdominal Aortic Without Rupture (HCC) Francisca Tapia M.D., Ph.D. [facility] Procedures CT Abdomen Pelvis Angiogram with IV Contrast CT Abdomen Angiogram with IV Contrast AK CTA ABDOMEN WO/W CNTRST HC CTA ABDOMEN WO/W CNTRST AK CTA ABDOMEN WO/W CNTRST [address], [place] [address] Referral ID Status Reason Start Date Expiration Date Visits Requ ested Visits Authorized [id number] Closed 03/19/2019 03/18/2020 1 1 Encounter Details Date Type Department Care Team Description 03/20/2019 Hospital Encounter Department of Francisca Tapia, Aneurysm Abdominal Radiology, Brenda Chu, Ph.D. Aortic Without Building, in [address] Rupture (HCC) [facility] [address] [place] [phone] Social History Tobacco Use Types Packs/Day Years [...] do you attend scientology or Never 2018 sabianist services? Do you belong to any clubs or No 02/21/2019 organizations such as scientology groups, unions, fraTransferWise or athletic groups, or school groups? How [...] Concentration - - Weight - - Height 167.6 cm (5' 6) 03/20/2019 8:10 AM CDT Body Mass Index - - documented [...] Radiology Mark Eastman M.D., M.S. [address] [place] [phone] 04/26/2022 Office Visit Otorhinolaryngology Roxanne Lanza APRN, C.N.P. [address] [place] [phone] 04/28/2022 Appointment Radiation Oncology Ursula Aguirre M.D. [address] [place] [phone] documented as of this encounter Procedures Procedure Name Priority Date/Time Associated Comments Diagnosis CT ABDOMEN PELVIS RAD - Routine 03/20/2019 8:38 Aneurysm Result s for this ANGIOGRAM WITH IV (most inpatients AM CDT Abdominal Aortic pr ocedure are in CONTRAST and all Without Rupture the results outpatients) (HCC) section. documented in this encounter Results CT Abdomen Pelvis Angiogram with IV Contrast (03/20/2019 8:38 AM CDT) Anatomical Region Laterality Modality Abdomen, Pelvis, Cardiovascular RST LOS, Abdominal ARZ N/A Computed Tomography LOS, Vascular Interventional ARZ LOS, Vascular Interventional FLA LOS, Abdominal FLA LOS Specimen (Source) Anatomical Collection Method Collection Time Re ceived Time Location / / Volume Laterality 03/21/2019 11:35 AM CDT Impressions 03/20/2019 11:10 AM CDT 1. Diffuse aortoiliac atherosclerotic disease with fusiform infrarenal abdominal aortic aneurysm measuring up to 5.0 cm i n diameter. 2. Partially visualized coronary artery calcifications. 3. Bilateral 3.0 cm adrenal nodules with areas of both mild enhancement and low attenuation, likely fat-containing. Thes e are indeterminate but likely represent benign adrenal adenomas or myelolipomas. Multiphase adrenal CT or MRI could be obtained for further characterization. Narrative 03/20/2019 11:10 AM CDT REVISED REPORT: (REVISED REPORT TO CHANGE EXAM DESCRIPTO R) EXAM: ??CT ABDOMEN PELVIS ANGIOGRAM WITH IV CONTRAST COMPARISON: ??MRI abdomen 03/16/2019 ? FINDINGS: ? VASCULAR FINDINGS: Diffuse aortoiliac atherosclerotic disea se including calcified and noncalcified atheromatous plaque with multifocal ulce ration. Fusiform infrarenal abdominal aortic aneurysm measuring 5.0 x 5.0 cm ( double oblique, see screenshot series 1000) extends from the level of the CORBY to the iliac bifurcation. No contour flattening or adjacent fat stranding to suggest impending rupture. The common iliac arteries are normal in caliber. Mo derate partially calcified atheromatous plaque in the bilateral common femoral a rteries with at most mild luminal narrowing. The mesenteric arteries are widely paten t at their origins. Partially calcified atheromatous plaque throughout the mid S MA resulting in at most mild luminal narrowing. Single renal arteries bilater ally, widely patent at their origins, with scattered partially calcified ather omatous plaque. Aortic annular calcification. Calcificat ions of the right coronary artery and left circumflex coronary artery, incompl etely evaluated. ADDITIONAL FINDINGS: Liver, gallbladder and pancreas are unre markable. The spleen measures at the upper limits of normal in size measuring 12.3 cm in craniocaudal dimension. Bilateral adrenal nodules measuring up t o 3.0 cm with scattered low-attenuation and faintly enhancing region. The right adrenal nodule has some associated calcification. Exophytic posteroinferior right renal cyst (series 8, image 304). Urinary bladder is moderately distended and normal in appearance. Scattered colonic diverticuli. Normal appendix. No rmal caliber of the small bowel and colon. No abdominopelvic lymphadenopathy or free fluid. Degenerative changes thoracolumbar spine. Mosaic attenuation of the lower lung parenchyma which is nonspecific but could reflect small airw ays disease. Bibasilar scarring with left basilar subpleural bulla measuring 4.0 cm. Procedure Note Ximena Castro M.D., Ph.D. - 02/2019 REVISED REPORT: (REVISED REPORT TO CHANGE EXAM DESCRIPTO R) EXAM: CT ABDOMEN PELVIS ANGIOGRAM WITH I V CONTRAST COMPARISON: MRI abdomen 03/16/2019 FINDINGS: VASCULAR FINDINGS: Diffuse aortoiliac atherosclerotic disea se including calcified and noncalcified atheromatous plaque with multifocal ulce ration. Fusiform infrarenal abdominal aortic aneurysm measuring 5.0 x 5.0 cm ( double oblique, see screenshot series 1000) extends from the level of the CORBY to the iliac bifurcation. No contour flattening or adjacent fat stranding to suggest impending rupture. The common iliac arteries are normal in caliber. Mo derate partially calcified atheromatous plaque in the bilateral common femoral a rteries with at most mild luminal narrowing. The mesenteric arteries are widely paten t at their origins. Partially calcified atheromatous plaque throughout the mid S MA resulting in at most mild luminal narrowing. Single renal arteries bilater ally, widely patent at their origins, with scattered partially calcified ather omatous plaque. Aortic annular calcification. Calcificat ions of the right coronary artery and left circumflex coronary artery, incompl etely evaluated. ADDITIONAL FINDINGS: Liver, gallbladder and pancreas are unre markable. The spleen measures at the upper limits of normal in size measuring 12.3 cm in craniocaudal dimension. Bilateral adrenal nodules measuring up t o 3.0 cm with scattered low-attenuation and faintly enhancing region. The right adrenal nodule has some associated calcification. Exophytic posteroinferior right renal cyst (series 8, image 304). Urinary bladder is moderately distended and normal in appearance. Scattered colonic diverticuli. Normal appendix. No rmal caliber of the small bowel and colon. No abdominopelvic lymphadenopathy or free fluid. Degenerative changes thoracolumbar spine. Mosaic attenuation of the lower lung parenchyma which is nonspecific but could reflect small airw ays disease. Bibasilar scarring with left basilar subpleural bulla measuring 4.0 cm. IMPRESSION: 1. Diffuse aortoiliac atherosclerotic di sease with fusiform infrarenal abdominal aortic aneurysm measuring up to 5.0 cm i n diameter. 2. Partially visualized coronary artery calcifications. 3. Bilateral 3.0 cm adrenal nodules with areas of both mild enhancement and low attenuation, likely fat-containing. Thes e are indeterminate but likely represent benign adrenal adenomas or myelolipomas. Multiphase adrenal CT or MRI could be obtained for further characterization. Francisca Tapia M.D., Ph.D. IMG CT PROCEDURES documented in this encounter Visit Diagnoses Diagnosis Aneurysm Abdominal Aortic Without Ruptur e (HCC) documented in this encounter Administered Medications Inactive Administered Medications - up to 3 most recent administrations Medication Order MAR Action Action Date Dose Rate Site iohexol 350 mg iodine/mL solution Given 03/20/2019 8:23 AM CDT 1 00 mL 1-200 mL (OMNIPAQUE) 1-200 mL, intravenous, Once in imaging, contrast, Starting on Tue03/20/19 at 0807, For 1 dose, Imaging Protocol Orders, Dose per Radiant Medication Guidelines sodium chloride (PF) 0.9 % injection 1-1 00 mL Given 03/20/2019 8:24 AM CDT 30 mL 1-100 mL, intravenous, Once, On Tue03/20/19 at 0815, For 1 dose, Imaging Protocol Orders documented in this encounter
--- OUTSIDE RECORDS SUMMARY | 2022-03-31 14:54 | XMS_ITS | Encounter Summary ---
:1955 Author Organization [facility] Address [address] [place] [address] Care Team Providers Name Role Phone Unavailable Primary Care Provider Unavailable Reason for Visit MRI/CAT/PET Scan (Routine) - Closed Specialty Diagnoses / Procedures Referred By Contact Refer red To Contact Radiology Diagnoses Mass Adrenal (HCC) Francisca Tapia M.D., Ph.D. [facility] Procedures MR Abdomen without IV Contrast MR Abdomen without and with IV Contrast OR MRI ABDOMEN WO/W CNTRST HC MRI ABDOMEN WO/W CNTRST OR MRI ABDOMEN WO CNTRST HC MRI ABDOMEN WO CNTRST [address] [place] [address]10 4 Referral ID Status Reason Start Date Expiration Date Visits Requ ested Visits Authorized [id number] Closed 03/15/2019 03/14/2020 1 1 Encounter Details Date Type Department Care Team Description 03/16/2019 Hospital Encounter Department of Francisca Tapia, Mass Adr enal (HCC) Radiology, Brenda Chu, Ph.D. [facility], in [address] [place] [address] [place] [phone] Social History Tobacco Use Types Packs/Day Years [...] do you attend confucianism or Never 2018 jain services? Do you [...] Concentration - - Weight 88.5 kg (195 lb) 03/16/2019 2:35 PM CDT Height 167.6 cm (5' 6) 03/16/2019 2:35 PM CDT Body Mass Index 31.47 03/16/2019 2:35 PM CDT documented in this encounter Medications [...] Radiology Mark Eastman M.D., M.S. [address] [place] [phone] 04/26/2022 Office Visit Otorhinolaryngology Roxanne Lanza APRN, C.N.P. [address] [place] [address] [phone] 04/28/2022 Appointment Radiation Oncology Ursula Aguirer M.D. [address] [place] [phone] documented as of this encounter Procedures Procedure Name Priority Date/Time Associated Comments Diagnosis MR ABDOMEN RAD - Routine 03/16/2019 4:10 Mass Adrenal Results for this WITHOUT IV (most inpatients PM CDT (HCC) procedure a re in CONTRAST and all the results outpatients) section. CREATININE, POCT, Routine 03/16/2019 2:47 Results for this B PM CDT procedure are i n the results section. CREATININE, POCT, Routine 03/16/2019 2:47 Results for this B PM CDT procedure are i n the results section. documented in this encounter Results MR Abdomen without IV Contrast (03/16/2019 4:10 PM CDT) Anatomical Region Laterality Modality Abdomen, Abdominal RST LOS, Abdominal ARZ LOS, N/A Magnetic Resonance Abdominal FLA LOS Specimen (Source) Anatomical Collection Method Collection Time Re ceived Time Location / / Volume Laterality 03/19/2019 9:21 AM CDT Impressions 03/19/2019 10:10 AM CDT A limited exam was performed and prematurely terminated due to the patient's claustrophobia. Bilateral adre nal masses are incompletely evaluated. Incidentally noted hepatomegaly. A 5 cm infrarenal abdominal aortic aneurysm is partially visualized. Evaluation of the infrarenal abdominal aorta warrants further evaluation. Patient will not be charged for this study. Findings discussed with Dr. Tapia ([phone]) on 03/19/2019 at 0930 Narrative 03/19/2019 10:10 AM CDT EXAM: ??MR ABDOMEN WITHOUT IV CONTRAST COMPARISON: ??CT of the chest with IV co ntrast from 02/21/2019. Procedure Note Herminio Lyon M.D. - 03/19/2019 EXAM: MR ABDOMEN WITHOUT IV CONTRAST COMPARISON: CT of the chest with IV cont rast from 02/21/2019. IMPRESSION: A limited exam was performed and prematu rely terminated due to the patient's claustrophobia. Bilateral adre nal masses are incompletely evaluated. Incidentally noted hepatomegaly. A 5 cm infrarenal abdominal aortic aneurysm is partially visualized. Evaluation of the infrarenal abdominal aorta warrants further evaluation. Patient will not be charged for this study. Findings discussed with Dr. Tapia ([phone]) on 03/19/2019 at 0930 Francisca Tapia M.D., Ph.D. IMG MRI PROCEDURES Creatinine, POCT (03/16/2019 2:47 PM CDT) athologist Signature Creatinine, 0.6 0.6 - 1.0 03/16/2019 POCT, B mg/dL 2:53 PM CDT Comment: ----ADDITIONAL INFORMATION---- Performed at the Point of Care Specimen Anatomical Collection Method Collection Time Receive d Time (Source) Location / / Volume Laterality Blood 03/16/2019 2:47 PM 9 2:53 CDT PM CDT Unknown Provider LAB POCT ORDERABLES - DEVICE Performing Organization Address City/State/ZIP Code Phon e Number [facility]OC [place] [facility] [address] [place] [address] Creatinine, POCT (03/16/2019 2:47 PM CDT) athologist Signature eGFR-Black/Afri >90 >=60 03/16/2019 can [place], mL/min/BSA 2:53 PM CDT POCT Comment: ----ADDITIONAL INFORMATION---- Estimated GFR calculated using the 2009 CKD_EPI creatinine equation. eGFR Non-Black/, >90 >=60 mL/min/BSA 0 03/16/2019 2:53 PM CDT POCT Comment: ----ADDITIONAL INFORMATION---- Estimated GFR calculated using the 2009 CKD_EPI creatinine equation. Specimen Anatomical Collection Method Collection Time Receive d Time (Source) Location / / Volume Laterality Blood 03/16/2019 2:47 PM 9 2:53 CDT PM CDT Unknown Provider LAB POCT ORDERABLES - DEVICE Performing Organization Address City/State/ZIP Code Phon e Number POC [facility] [address] [place], [place] [phone] LABS documented in this encounter Visit Diagnoses Diagnosis Mass Adrenal (HCC) documented in this encounter
--- OUTSIDE RECORDS SUMMARY | 2022-03-31 14:54 | XMS_ITS | Encounter Summary ---
:1955 Author Organization [facility] Address [address] [place] [address] Care Team Providers Name Role Phone Unavailable Primary Care Provider Unavailable Reason for Referral Outpatient (Routine) - Closed Specialty Diagnoses / Procedures Referred By Contact Refer red To Contact Radiation Oncology Diagnoses Malignant Neoplasm Of Supraglottic (HCC) Francisca Tapia M.D., [facility] TASHA mas Ph.D. [address] , [facility] [address] [place], [place] [address] Referral ID Status Reason Start Date Expiration Date Visits Requ ested Visits Authorized [id number] Closed 03/15/2019 03/14/2020 1 1 Scheduling Instructions Please schedule with Dr. Aguirre. Encounter Details Date Type Department Care Team Description 03/15/2019 Orders Only Department of Francisca Tapia, Malignant Neop las Of Radiation Oncology in [place], Ph.D . Supraglottic (HCC) [place], [place] [address], (Primary Dx) [address] [facility] [address] [place], [place] [address] [phone] Social History Tobacco Use Types Packs/Day Years [...] or relatives? How often do you attend mu-ism or Never 2018 mormonism services? Do you belong to any clubs or No 02/21/2019 organizations such as mu-ism groups, unions, [employer] or athletic groups, or school groups? How [...] Radiology Mark Eastman M.D., M.S. [address] [place] [phone] 04/26/2022 Office Visit Otorhinolaryngology Roxanne Lanza APRN, C.N.P. [address] [place] [phone] 04/28/2022 Appointment Radiation Oncology Ursula Aguirre M.D. [address] [place] [phone] Scheduled Referrals Name Type Priority Associated Diagnoses Order S chedule Radiation Oncology Outpatient Referral Routine Malignant Neopl asm Of Expected: - Head / neck Supraglottic (HCC) 03/15/20 19 consult (clinic) (Approximat e), Expires: 03/15/2022 documented as of this encounter Visit Diagnoses Diagnosis Malignant Neoplasm Of Supraglottic (HCC) - Primary documented in this encounter
--- OUTSIDE RECORDS SUMMARY | 2022-03-31 14:54 | XMS_ITS | Encounter Summary ---
:1955 Author Organization [facility] Address [address] [place] [address] Care Team Providers Name Role Phone Unavailable Primary Care Provider Unavailable Encounter Details Date Type Department Care Team Description 03/16/2019 Clinical Communication Department of Arlette, Radiation Oncology in [facility] [address] [place] [phone] Social History Tobacco Use Types Packs/Day Years [...] do you attend shinto or Never 2018 yazidism services? Do you [...] Miscellaneous Notes Telephone Encounter - Jannet Cross R.N. - 03/27/2019 8:[address] Aguirre and Taylor, I called and spoke with patient's daughter, Darlin to update her on your last note Dr. Aguirre. Jannet Arciniega Telephone Encounter - Ursula Aguirre M.D. - 03/23/2019 12:03 PM CDT I saw her CT result. She will see a vascular surgeon on Tuesday. I'm okay with the intepretation forthe adrenal glands.. So I think we can hold an abdominal MRI for now. Can you let her know or forward to Jannet to let her know? Thanks! edmund Telephone Encounter - Taylor Chong - 03/20/2019 9:37 AM CDT Darlin called, to let us know Obdulia had a CT of the abdomen performed in [place] this morning and asked if she would still need to have the MRI done? She asked if maybe the patient could be sedated or given anything to help with her anxiety, if MRI is still needed Telephone Encounter - Taylor Chong - 03/19/2019 8:07 AM CDT March 28 is the first available they had for the swallow study. Ok to reschedule the MRI until then, or would you like to have that done sooner? Telephone Encounter - Ursula Aguirre M.D. - 03/16/2019 5:13 PM CDT I think they should reschedule to next week (maybe if we could get the swallow study at the same time?) Thanks! Telephone Encounter - Taylor Chong - 03/16/2019 4:14 PM CDT I looked in [employer] and it looks like they were able to get some imaging Telephone Encounter - Taylor Chong - 03/16/2019 3:59 PM CDT Caller: Darlin Is there a valid authorization to speak with caller? Yes Primary Radiation Oncologist: Dr. Aguirre Reason for call: Unable to complete MRI today, due to anxiety and not taking blood pressure medication this morning. They are wondering if they need to reschedule the MRI? Phone number: [phone] Is it okay to leave a voicemail on answering machine with test results? Yes Pharmacy (if medication related): [facility] [address] [place] [address] [facility] [address] Taylor Chong documented in this encounter Plan of Treatment Upcoming Encounters Date Type Specialty Care Team Description 04/22/2022 Clinical Admitting/Central Communication Scheduling 04/26/2022 Appointment Radiology Mark Eastman M.D., M.S. [address] [place] [phone] 04/26/2022 Office Visit Otorhinolaryngology Roxanne Lanza APRN, C.N.P. [address] [place] [phone] 04/28/2022 Appointment Radiation Oncology Ursula Aguirre M.D. [address] [place] [phone] documented as of this encounter Visit Diagnoses Not on filedocumented in this encounter
--- OUTSIDE RECORDS SUMMARY | 2022-03-31 14:54 | XMS_ITS | Encounter Summary ---
:1955 Author Organization [facility] Address [address] [place] [address] Care Team Providers Name Role Phone Unavailable Primary Care Provider Unavailable Reason for Referral Radiation Therapy (Routine) - Canceled Specialty Diagnoses / Procedures Referred By Contact Refer red To Contact Diagnoses Malignant Neoplasm Of Supraglottic (HCC) Ursula Aguirre M.D. [facility] Procedures Management Visit [address] [place] [address] [phone] Referral ID Status Reason Start Date Expiration Date Visits V isits Requested Authorized [id number] Canceled 03/15/2019 03/14/2020 1 1 Reason for Visit Radiation Therapy (Routine) - Canceled Specialty Diagnoses / Procedures Referred By Contact Refer red To Contact Diagnoses Malignant Neoplasm Of Supraglottic (HCC) Ursula Aguirre M.D. [facility] Procedures Management Visit [address] [place] [phone] Referral ID Status Reason Start Date Expiration Date Visits V isits Requested Authorized [id number] Canceled 03/15/2019 03/14/2020 1 1 Encounter Details Date Type Department Care Team Description 03/28/2019 Hospital Encounter Department of Peter Schultz Neoplasm Of Radiation Oncology Jose Serna M.D. Supraglottic (HCC) in [place], [address] [place], [place] [address] [facility] [phone] [place], [place] [phone] (Work) [phone] Social History Tobacco Use Types Packs/Day Years [...] or relatives? How often do you attend alevism or Never 2018 buddhist services? Do you belong to any clubs or No 02/21/2019 organizations such as alevism groups, unions, fraternal or athletic groups, or [...] Sign Reading Time Taken Comments Blood Pressure 151/66 03/28/2019 2:26 PM CDT Pulse 87 03/28/2019 2:26 PM CDT Temperature 36 ??C (96.8 ??F) 03/28/2019 2:26 PM CDT Respiratory Rate - - Oxygen Saturation - - Inhaled Oxygen Concentration - - Weight 87.7 kg (193 lb 5.5 oz) 03/28/2019 2:26 PM CDT Height - - Body Mass Index 31.21 03/20/2019 8:10 AM CDT documented in this encounter Medications [...] 04/21/20182021 (KLOR-CON M/KDUR) 20 mEq ER tablet sulfamethoxazole-trimethopr Take 1 tablet by 10 tablet 0 08/02/2019 im (BACTRIM DS) 800-160 mg mouth every 12 per tablet (twelve) hours. documented as of this encounter Progress Notes Jose Schultz M.D. - 03/28/2019 3:04 PM CDT SUBJECTIVE REASON FOR VISIT Evaluation for side effects while receiving radiation treatment for 1. Malignant Neoplasm Of Supraglottic (HCC) SUPERVISED BY: Jose Schultz M.D. ([id number]) HISTORY OF PRESENT ILLNESS Obdulia Narayan is a 63 y.o. female with supraglottic squamous cell carcinoma. She is currently receiving definitive radiation therapy to the supraglottic tumor to a dose of 7000 cGy in 35 fractions. She has received 2 of 35 fractions for a dose of 400 cGy out of a planned total dose of 7000 cGy. Her anticipated date of completion is May 04, 2019. She is receiving altered fractionation treatment with twice a day treatment once weekly. She will not be receiving concurrent chemotherapy. The patient was seen and examined today with Dr. Schultz. The patient reports that she is no longer experiencing a sore throat or a pain in her left ear. She does rate her right arthritic knee pain at a 3 out of 10. She takes Tylenol as needed. She is experiencing dry mouth and problematic thick secretions. She is able to tolerate a soft diet without difficulty. She had a hard time trying to complete treatment yesterday due to the thick secretions. She alsoreports a boil appearing nodule on her left cheek and inquiring on how best to care for boil. She denies fevers or chills. Patient and her family are also requesting review of her recent CT of the abdomen and pelvis to evaluate adrenal mass. PATIENT REPORTED SYMPTOM SCREEN FATIGUE (Scale: 0 = no fatigue; 10 = worst fatigue you can imagine): 4 PAIN (Scale: 0 = no pain; 10 = worst pain you can imagine): 3 OVERALL QUALITY OF LIFE (Scale: 0 = as bad as can be; 10 = as good as can be): 9 OBJECTIVE BP 151/66 (BP Location: Right arm, Patient Position: Sitting, Cuff Size: Large) Pulse 87 Temp 36??C (Temporal) Wt 87.7 kg BMI 31.21 kg/m?? PHYSICAL EXAM General: Alert and oriented in no apparent distress. Patient is deaf and her family reports that sheis able to read lips but does interpret sign language. Face: boil appearing nodule on the mid left check area with noted erythema. ASSESSMENT / PLAN 1. 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 Definitive radiotherapy to the supraglottic tumor initiated on March 26, 2019; anticipated date of completion is May 04, 2019 3. Left facial boil, s/p incision and drainage on March 28, 2019; Bactrim initiated for 5 days on March 28, 2019 The patient is tolerating radiation treatment well overall. I recommended that she trial over the counter Mucinex on a schedule, frequent baking soda rinses and using a humidifier to help further manage thick secretions. I have also provided her with sample of Biotene mouth spray for dry mouth. Dr. Schultz used sterile needle to drain left cheek boil today. Notable bloody thick exudate was expressedout. Site was then cleaned with alcohol swabs, Neosporin applied and then cover with a bandage. Dr. Schultz has prescribed Bactrim for 5 days. Patient has been instructed to hold Cozaar while taking Bactrim to prevent potential interaction. Patient will be reassessed and blood pressure re checked tomorrow in scheduled management visit. Dr. Schultz and I recommended that she apply warm compresses tosite of boil through out the evening. Dr. Schultz also reviewed recent CT results with patient and her family at this time we will hold off on ordering further specific imaging at this time. Dr. Aguirre will be back in the office next week to discuss further. Twice a day treatment will be completed tomorrow. Patient will be staying with her son, Rolando this week. She will contact us with any questions or concerns. We will continue with radiation treatment as planned. Signed by: Jannet Cross R.N. 03/28/2019 I saw and evaluated the patient and participated in the rao portions of the service. I reviewed the documentation of Jannet Cross R.N. and agree with the findings and plan. The patient appears well onexam. She has a 1 cm raised it erythematous lesion on the lateral aspect of her left cheek. Per her son, he has squeeze this before a spelling some pus a few weeks ago. Over the last 2 days there has been recrudescence that is painful but there is no associated fever or chills. After discussing it with the patient, I recommended that we attempt drainage of what appears to be a boil. She verbally consented to proceed. I anesthetized the area with 2% lidocaine gel and performed a procedural pause to allow for anesthetic effect. I then utilized a needle and lanced the surface. I was then able to express approximately 10 mL of bloody pustular discharge. I purposely did not apply significant pressure so as to avoid dispersing the infected fluid into her surrounding tissues. The area was then cleaned with an alcohol wipe and Neosporin was applied along with a Band-Aid. I prescribed Bactrim 1 double-strength tablet twice daily for 5 days. This interacts with her Cozaar, so she will hold this while sheis taking Bactrim. She has a penicillin allergy, so Bactrim is the next best choice. She and her family were instructed to present to the emergency room if she develops a fever or worsening facial pain. They agreed to do so. I will check on her progress again tomorrow. She will continue with radiationtreatment as planned. Signed by: Jose Schultz M.D. 03/28/2019 5:27 PM [facility] [address] [place] [address] documented in this encounter Plan of Treatment Upcoming Encounters Date Type Specialty Care Team Description 04/22/2022 Clinical Admitting/Central Communication Scheduling 04/26/2022 Appointment Radiology Mark Eastman M.D., M.S. [address] [place] [address] [phone] 04/26/2022 Office Visit Otorhinolaryngology Roxanne Lanza, [employer], C.N.P. [address] [place] [address] [phone] 04/28/2022 Appointment Radiation Oncology Ursula Aguirre M.D. [address] [place] [phone] Scheduled Orders Name Type Priority Associated Diagnoses Order S chedule Management Visit Radiation Oncology Routine Malignant Neoplasm Of Once for 1 Supraglottic (HCC) Occurrenc es starting 03/28/2019 unti l 03/28/2019 documented as of this encounter Visit Diagnoses Diagnosis Malignant Neoplasm Of Supraglottic (HCC) documented in this encounter
--- OUTSIDE RECORDS SUMMARY | 2022-03-31 14:54 | XMS_ITS | Encounter Summary ---
:1955 Author Organization [facility] Address [address] [place] [address] Care Team Providers Name Role Phone Unavailable Primary Care Provider Unavailable Reason for Referral Radiation Therapy (Routine) - Closed Specialty Diagnoses / Procedures Referred By Contact Refer red To Contact Diagnoses Malignant Neoplasm Of Supraglottic (HCC) Ursula Aguirre M.D. [facility] Region Procedures Initial Rad Onc Treatment Planning CT Simulation [address] [place] [phone] Referral ID Status Reason Start Date Expiration Date Visits Requ ested Visits Authorized [id number] Closed 03/15/2019 03/14/2020 1 1 Reason for Visit Radiation Therapy (Routine) - Closed Specialty Diagnoses / Procedures Referred By Contact Refer red To Contact Diagnoses Malignant Neoplasm Of Supraglottic (HCC) Ursula [facility]irre M.D. [facility] Region Procedures Initial Rad Onc Treatment Planning CT Simulation [address] [place] [address] [phone] Referral ID Status Reason Start Date Expiration Date Visits Requ ested Visits Authorized [id number] Closed 03/15/2019 03/14/2020 1 1 Encounter Details Date Type Department Care Team Description 03/16/2019 Hospital Encounter Department of Ursula Aguirre Neoplasm Of Radiation Oncology [place] Supraglottic (HCC) in [place], [address] [place], [place] [address] [facility] [address] [place], [place] [phone] (Work) [phone] Social History Tobacco Use Types Packs/Day Years [...] do you attend mandaeism or Never 2018 sabianism services? Do you [...] a day. documented as of this encounter Procedure Notes Ursula Aguirre M.D. - 03/16/2019 12:48 PM CDTAssociated Order(s): Initial Rad Onc Treatment Planning CT Simulation Pre-Procedure Diagnose(s): Malignant Neoplasm Of Supraglottic (HCC) Post-Procedure Diagnose(s): Malignant Neoplasm Of Supraglottic (HCC) Initial Rad Onc Treatment Planning CT Simulation Date/Time: 03/16/2019 12:48 PM Performed by: Ursula Aguirre M.D. Authorized by: Ursula Aguirre M.D. PROCEDURE DETAILS Patient position: supine Arm/Hand position: holding Rn Cardiology Ring Custom immobilization device: 5 point thermoplastic mesh mask and Klarity mold Legs/Feet position: straight Motion management: none Bolus: None Contrast: None CONSENT Consent obtained: written PRE-PROCEDURE DETAILS Procedure purpose: Therapeutic SEDATION / ANESTHESIA Anesthesia method: none POST-PROCEDURE DETAILS Procedure completed successfully: yes documented in this encounter Plan of Treatment Upcoming Encounters Date Type Specialty Care Team Description 04/22/2022 Clinical Admitting/Central Communication Scheduling 04/26/2022 Appointment Radiology Mark Eastman M.D., M.S. [address] [place] [phone] 04/26/2022 Office Visit Otorhinolaryngology Roxanne Lanza APRN, C.N.P. [address] [place] [address] [phone] 04/28/2022 Appointment Radiation Oncology Ursula Aguirre M.D. [address] [place] [phone] documented as of this encounter Procedures Procedure Name Priority Date/Time Associated Diagnosis Comme nts INITIAL RAD ONC Routine 03/16/2019 12:48 Malignant Neoplasm Of Results for this TREATMENT PLANNING PM CDT Supraglottic (HCC) pro cedure are in CT SIMULATION the results section. documented in this encounter Results Initial Rad Onc Treatment [...] ?? Patient position: supine Arm/Hand position: holding Rn Cardiology Ring ?? Custom immobilization device: 5 point [...]
--- OUTSIDE RECORDS SUMMARY | 2022-03-31 14:54 | XMS_ITS | Encounter Summary ---
:1955 Author Organization [facility] Address [address] [place] [address] Care Team Providers Name Role Phone Unavailable Primary Care Provider Unavailable Reason for Visit Radiation Therapy (Routine) - Closed Specialty Diagnoses / Procedures Referred By Contact Refer red To Contact Diagnoses Malignant Neoplasm Of Supraglottic (HCC) Ursula Aguirre M.D. [facility] Procedures Prior Auth Rad Tx [place] IMRT COMPLEX [address] [place] [address] [phone] Referral ID Status Reason Start Date Expiration Date Visits Requ ested Visits Authorized [id number] Closed 03/15/2019 03/14/2020 35 35 Encounter Details Date Type Department Care Team Description 03/26/2019 Hospital Encounter Department of Radiation Bud Aguirre I., Oncology in [place] [address] [facility] [address] [place] [phone] Social History Tobacco Use Types Packs/Day Years [...] do you attend episcopalian or Never 2018 episcopal services? Do you belong to any clubs or No 02/21/2019 organizations such as episcopalian groups, unions, [employer] or athletic groups, or school groups? How [...] Radiology Mark Eastman M.D., M.S. [address] [place] [address] 04/26/2022 Office Visit Otorhinolaryngology Roxanne Lanza, DIRECTOR APPOINTMENT, C.N.P. [address] [place] [address] 04/28/2022 Appointment Radiation Oncology Ursula Aguirre M.D. [address] [place] [address] documented as of this encounter Visit Diagnoses Not on filedocumented in this encounter
--- OUTSIDE RECORDS SUMMARY | 2022-03-31 14:54 | XMS_ITS | Encounter Summary ---
:1955 Author Organization [facility] Address [address] [place] [address] Care Team Providers Name Role Phone Unavailable Primary Care Provider Unavailable Encounter Details Date Type Department Care Team Description 03/15/2019 Orders Only Department of Radiation Francisca Tapia, Mass Adrenal (HCC) Oncology in [place], [place], Ph. D. (Primary Dx) [place] [address], [address] [facility] [address] [place] [address] [phone] Social History Tobacco Use Types Packs/Day Years [...] do you attend worship or Never 2018 latter day services? Do [...] Radiology Mark Eastman M.D., M.S. [address] [place] [phone] 04/26/2022 Office Visit Otorhinolaryngology Roxanne Lanza APRN, C.N.P. [address] [place] [phone] 04/28/2022 Appointment Radiation Oncology Ursula Aguirre M.D. [address] [place] [phone] documented as of this encounter Visit Diagnoses Diagnosis Mass Adrenal (HCC) - Primary documented in this encounter
--- OUTSIDE RECORDS SUMMARY | 2022-03-31 14:54 | XMS_ITS | Encounter Summary ---
:1955 Author Organization [facility] Address [address] [place] [address] Care Team Providers Name Role Phone Unavailable Primary Care Provider Unavailable Reason for Visit Outpatient (Routine) - Closed Specialty Diagnoses / Procedures Referred By Contact Refer red To Contact Vascular Surgery Diagnoses Aneurysm Abdominal Aortic Without Rupture (HCC) Francisca Tapia M.D., [facility] [facility] Ph.D. [address] [place] [address] [address] [place], [place] [address] Referral ID Status Reason Start Date Expiration Date Visits Requ ested Visits Authorized [id number] Closed 03/19/2019 03/18/2020 1 1 Encounter Details Date Type Department Care Team Description 03/27/2019 Comprehensive Visit Division of Vascular [place], Aneurysm Abdominal and Endovascular Gael Cisneros M.D. Aortic Without Surgery in [address] [facility], Rupture (HCC ) [place], [place] [address] [facility] [place], [place] [address] [phone] Social History Tobacco Use Types Packs/Day Years [...] do you attend islam or Never 2018 faith services? Do you [...] file documented as of this encounter Consult Gael Raza M.D. - 03/27/2019 11:00 AM CDT Obdulia Narayan : 1955 Visit Date: 03/27/19 REFERRING PHYSICIAN: Francisca Tapia M.D., Ph.D. [address] [place] [phone] REASON FOR CONSULT: 5 cm infrarenal abdominal aortic aneurysm SUBJECTIVE CHIEF COMPLAINT/ REASON FOR VISIT: HISTORY OF PRESENT ILLNESS: Ms. Narayan is a 63 y.o. female seen at the kind request of Francisca Tapia M.D., Ph.D. for a 5 cm infrarenal abdominal aortic annual. The most computed tomography angiography demonstrates a 5 cm infrarenal abdominal aortic aneurysm. The patient has been recently diagnosed with laryngeal cancer for which she is undergoing treatment. She is also ongoing smoker.. I have reviewed and updated the medical records for current medications, allergies, medical, surgical, social, and family history as pertinent. The patients cardiovascular risk factors are listed below: Vascular Surgery VQI Screening CVD: None CAD Symptoms: None Prior CHF: None Prior CABG: None Prior PCI: None COPD: On Meds Diabetes: Non-Insulin Meds Renal Function: Stage 1 Dialysis: No Hypertension: Yes (controlled) Living status: Home Ambulatory status: Ambulates self Functional status: Self care REVIEW OF SYSTEMS: Pertinent items are noted in HPI; all other systems were reviewed per Health History. OBJECTIVE VITAL SIGNS There were no vitals filed for this visit. PHYSICAL EXAM: General: Alert and oriented, No acute distress. Neck: Supple, Non-tender. Respiratory: Lungs are clear to auscultation. Respirations are non-labored. Breath sounds are equal. Heart: Regular rate and rhythm, no murmur appreciated. Abdomen: Soft, Non-tender, no masses. Cognition and Speech: Speech clear and coherent. Functional cognition intact. Psychiatric: Cooperative, appropriate mood & affect. Extremities: Warm, well perfused, no edema. VASCULAR EXAM: Peripheral Vascular Pulse Exam Left Femoral: 3+ Right Femoral: 3+ DIAGNOSTIC STUDIES: I have reviewed the patient's current laboratory, imaging, and other diagnostic studies as pertinent. ASSESSMENT / PLAN I have explained the natural history and indications for repair of 5 cm infrarenal aortic aneurysm. The annual risk of rupture is estimated on 5 percent. The anatomy is suitable for possible endovascular repair. However I would recommend with focus on treatment of her laryngeal cancer and repeat the CT in July of 2019. At that point if there is additional enlargement we would proceed with a pre anesthesia medical evaluation. If she is consider feet enough for a general anesthetic then we would recommend endovascular aortic repair PATIENT EDUCATION Ready to learn, no apparent learning barriers were identified; learning preferences include listening. Explained diagnosis and treatment plan; patient expressed understanding of the content. DIAGNOSIS: #1 Aneurysm Abdominal Aortic Without Rupture (HCC) Gael Berry M.D. Answers for HPI/ROS submitted by the patient on 03/27/2019 Fatigue: Yes No eye issues: Yes Persistent hoarse voice: Yes Shortness of breath when lying flat: Yes Shortness of breath: Yes Coughing up mucus (phlegm): Yes Dry cough: Yes Wheezing: Yes No GI issues: Yes Muscle pain/stiffness: Yes Pain or stiffness in the joints: Yes Back pain/stiffness: Yes No skin issues: Yes Headache: Yes Light-headedness: Yes Loss of balance or tendency to fall easily: Yes Excessive daytime sleepiness/tiredness: Yes Stop breathing, choking, or gasping while asleep: Yes No blood/lymph issues: Yes No urinary/reproductive issues: Yes Paty Elkins M.B.BShitalS. - 03/27/2019 11:00 AM CDT Obdulia Narayan : 1955 Visit Date: 03/27/19 Referring provider: Francisca Tapia M.D., Ph.D. SUBJECTIVE CHIEF COMPLAINT/ REASON FOR VISIT: Asymptomatic infrarenal abdominal aortic aneurysm HISTORY OF PRESENT ILLNESS: Obdulia Narayan is a 63 y.o. female that comes to the clinic for evaluation. She was recently diagnosed with laryngeal cancer. During the evaluation she was found to have bilateral adrenal nodules. MRI was pursued it was found that a 5 cm infrarenal aneurysm. Cardiovascular risk factors include smoking, hypertension, diabetes, and COPD. No family history of aneurysmal disease. Vascular Surgery VQI Screening CVD: None CAD Symptoms: None Prior CHF: None Prior CABG: None Prior PCI: None COPD: On Meds Diabetes: Non-Insulin Meds Renal Function: Stage 1 Dialysis: No Hypertension: Yes (controlled) Living status: Home Ambulatory status: Ambulates self Functional status: Self care The current medications, allergies, medical, surgical, social, and family history sections of the chart have been reviewed and updated as pertinent. Current Medications: ??? acetaminophen (TYLENOL) 500 mg capsule, Take by mouth every 6 (six) hours as needed for pain. ??? aspirin 81 mg chewable tablet, Chew 81 mg daily. Clare Aspirin ??? budesonide-formoterol (SYMBICORT) 160-4.5 mcg/actuation inhaler, Inhale 2 puffs 2 (two) times a day. Rinse mouth with water after use to reduce aftertaste and incidence of candidiasis. Do not swallow. ??? cetirizine (ZyrTEC) 10 mg tablet, Take 10 mg by mouth daily. ??? fluticasone propionate (FLONASE) 50 mcg/actuation nasal spray, daily. ??? hydroCHLOROthiazide (HYDRODIURIL) 25 mg tablet, Take 25 mg by mouth daily. ??? ibuprofen (ADVIL,MOTRIN) 200 mg capsule, Take 600 mg by mouth every 6 (six) hours as needed for pain. ??? losartan (COZAAR) 100 mg tablet, Take 100 mg by mouth daily. ??? metFORMIN (GLUCOPHAGE) 500 mg tablet, 2 (two) times a day. ??? raNITIdine (ZANTAC) 150 mg tablet, Take 150 mg by mouth 2 (two) times a day. REVIEW OF SYSTEMS: Pertinent items are noted in HPI; all other systems were reviewed per Health History. OBJECTIVE VITAL SIGNS There were no vitals filed for this visit. PHYSICAL EXAM: General: Alert and oriented, No acute distress. Neck: Supple, Non-tender. Respiratory: Lungs are clear to auscultation. Respirations are non-labored. Breath sounds are equal. Heart: Regular rate and rhythm, no murmur appreciated. Abdomen: Soft, Non-tender, no masses. Cognition and Speech: Speech clear and coherent. Functional cognition intact. Psychiatric: Cooperative, appropriate mood & affect. Extremities: Warm, well perfused, no edema. VASCULAR EXAM: Peripheral Vascular Pulse Exam Left Femoral: 3+ Brachial: 3+ Right Femoral: 3+ Brachial: 3+ DIAGNOSTIC STUDIES: I have reviewed the patient's current laboratory, imaging, and other diagnostic studies as pertinent. ASSESSMENT / PLAN Patient was seen and examined. Her imaging studies laboratory data were reviewed. We discussed the risk of fracture for 5 cm infrarenal aneurysm. At this time we recommend that she completes her treatment for laryngeal cancer and have follow-up scan after that. If there is additional enlargement then the patient will need a pre anesthesia medical evaluation and will discuss endovascular repair. Givenher COPD she will be a very high risk for pulmonary complications for open repair. DIAGNOSIS: #1 Aneurysm Abdominal Aortic Without Rupture (HCC) Valdez NicholsonS. documented in this encounter Plan of Treatment Upcoming Encounters Date Type Specialty Care Team Description 04/22/2022 Clinical Admitting/Central Communication Scheduling 04/26/2022 Appointment Radiology Mark Eastman M.D., M.S. [address] [place] [phone] 04/26/2022 Office Visit Otorhinolaryngology oRxanne Lanza APRN, C.N.P. [address] [place] [phone] 04/28/2022 Appointment Radiation Oncology Ursula Aguirre M.D. [address] [place] [phone] documented as of this encounter Visit Diagnoses Diagnosis Aneurysm Abdominal Aortic Without Ruptur e (HCC) documented in this encounter
--- OUTSIDE RECORDS SUMMARY | 2022-03-31 14:54 | XMS_ITS | Encounter Summary ---
:1955 Author Organization [facility] Address [address] [place] [address] Care Team Providers Name Role Phone Unavailable Primary Care Provider Unavailable Encounter Details Date Type Department Care Team Description 03/19/2019 Clinical Communication Department of Myra Nelson Radiation Oncology in , R.N. [place], [place] [address] [facility] [address] [place] [phone] Social History Tobacco Use Types Packs/Day Years [...] do you attend gnosticism or Never 2018 roman catholic services? Do [...] this encounter Miscellaneous Notes Telephone Encounter - Myra Nelson R.N. - 03/19/2019 5:20 PM CDT Daughter, Darlin calling for her mother, wanting to know if the CT scan tomorrow will include adrenalglands. I could tell Darlin that her mother is having an abdominal CT scan with contrast dye. When they get to that appointment tomorrow, they could further ask questions to the staff that will be doingthe scanning. documented in this encounter Plan of Treatment Upcoming Encounters Date Type Specialty Care Team Description 04/22/2022 Clinical Admitting/Central Communication Scheduling 04/26/2022 Appointment Radiology Mark Eastman M.D., M.S. [address] [place] [phone] 04/26/2022 Office Visit Otorhinolaryngology Roxanne Lanza APRN, C.N.P. [address] [place] [phone] 04/28/2022 Appointment Radiation Oncology Ursula Aguirre M.D. [address] [place] [phone] documented as of this encounter Visit Diagnoses Not on filedocumented in this encounter
--- OUTSIDE RECORDS SUMMARY | 2022-03-31 14:54 | XMS_ITS | Encounter Summary ---
:1955 Author Organization [facility] Address [address] [place] [address] Care Team Providers Name Role Phone Unavailable Primary Care Provider Unavailable Reason for Referral Outpatient (Routine) - Closed Specialty Diagnoses / Procedures Referred By Contact Refer red To Contact Diagnoses Malignant Neoplasm Of Supraglottic (HCC) Ursula Aguirre M.D. [facility] Procedures FL Swallow Function with Video and Speech or OT MS SWALLOWING STUDY W VIDEO HC SWALLOWING STUDY W VIDEO MS SWALLOWING STUDY W VIDEO [address] [place] [phone] Referral ID Status Reason Start Date Expiration Date Visits Requ ested Visits Authorized [id number] Closed 03/16/2019 03/15/2020 1 1 Reason for Visit Outpatient (Routine) - Closed Specialty Diagnoses / Procedures Referred By Contact Refer red To Contact Diagnoses Malignant Neoplasm Of Supraglottic (HCC) Ursula Aguirre M.D. [facility] Procedures FL Swallow Function with Video and Speech or OT MS SWALLOWING STUDY W VIDEO HC SWALLOWING STUDY W VIDEO MS SWALLOWING STUDY W VIDEO [address] [place] [phone] Referral ID Status Reason Start Date Expiration Date Visits Requ ested Visits Authorized [id number] Closed 03/16/2019 03/15/2020 1 1 Encounter Details Date Type Department Care Team Description 03/28/2019 Hospital Encounter Department of Mary Aguirre M.D. [address] [place] [phone] Malignant Neoplasm Of Radiology, [place] Fani Montalvo M.S., [facility] 200 [place] [address] Supraglottic (HCC) Building, in [place], [place] [address] [place] [phone] Social History Tobacco Use Types Packs/Day Years [...] do you attend sabianism or Never 2018 anabaptist services? Do you [...] Radiology Mark Eastman M.D., M.S. [address] [place] [phone] 04/26/2022 Office Visit Otorhinolaryngology Roxanne Lanza, FINANCIAL SOLUTIONS ADVISOR, C.N.P. [address] [place] [phone] 04/28/2022 Appointment Radiation Oncology Ursula Aguirre M.D. [address] [place] [phone] documented as of this encounter Procedures Procedure Name Priority Date/Time Associated Comments Diagnosis FL SWALLOW RAD - Routine 03/28/2019 8:54 Malignant Neoplasm Resul ts for this FUNCTION WITH (most inpatients AM CDT Of Supraglottic procedu re are in [...] pathology report for f urther details. Ursula Aguirre M.D. [facility] FLUOROSCOPY PROCEDURES documented in this encounter Visit Diagnoses Diagnosis Malignant Neoplasm Of Supraglottic (HCC) documented in this encounter Administered Medications Inactive Administered Medications - up to 3 most recent administrations Medication Order MAR Action Action Date Dose Rate Site barium 40 % (w/v) oral powder for Given 03/28/2019 9:01 AM CDT 5 0 mL suspension (VARIBAR THIN LIQUID) Code/trauma/sedation medication, Starting on Tue03/28/19 at 0901 barium 40 % (w/v) suspension (VARIBAR NE CTAR) Given 03/28/2019 9:01 AM CDT 20 mL Code/trauma/sedation medication, Starting on Tue03/28/19 at 0901 documented in this encounter
--- OUTSIDE RECORDS SUMMARY | 2022-03-31 14:55 | XMS_ITS | Encounter Summary ---
:1955 Author Organization [facility] Address [address] [place] [address] Care Team Providers Name Role Phone Unavailable Primary Care Provider Unavailable Reason for Referral Outpatient (Routine) - Closed Specialty Diagnoses / Procedures Referred By Contact Refer red To Contact Otorhinolaryngology Diagnoses Laryngeal Disorder Darryl Marcos [place] M.D. [address] [place] [address] Referral ID Status Reason Start Date Expiration Date Visits Requ ested Visits Authorized [id number] Closed 02/09/2019 02/09/2020 1 1 Encounter Details Date Type Department Care Team Description 02/09/2019 [facility] Irma Marcos Disorder AND CLINICS Darryl Serna M.D. (Primary Dx) [address] [facility] [address] [place] [address] [place], [place] [phone] Social History Tobacco Use Types Packs/Day Years [...] do you attend yarsanism or Never 2018 mormon services? Do you [...] Radiology Mark Eastman M.D., M.S. [address] [place] [phone] 04/26/2022 Office Visit Otorhinolaryngology Roxanne Lanza APRN, C.N.P. [address] [place] [phone] 04/28/2022 Appointment Radiation Oncology Ursula Aguirre M.D. [address] [place] [phone] Scheduled Referrals Name Type Priority Associated Order Schedule Diagnoses Otolaryngology Referral Outpatient Referral Routine Laryngeal Disorder Expected: 02/09/2019 (Approximate), Expires: 02/09/2022 documented as of this encounter Visit Diagnoses Diagnosis Laryngeal Disorder - Primary documented in this encounter Additional Health Concerns Infection Onset Date Last Indicated Resolved Time COVID19 Pending 03/12/2020 03/12/2020 03/12/2020 9:30 PM CDT COVID19 Pending 06/10/2020 06/10/2020 06/10/2020 8:15 PM CDT documented as of this encounter
--- NOTE | 2022-03-31 15:00 | CRLHL7_ITS ---
For Patients: As a result of the Century Cures Act, medical imaging exams and procedure reports are released immediately into your electronic medical record. You may view this report before your referring provider. If you have questions, please contact your health care provider. BILATERAL DIGITAL SCREENING MAMMOGRAM WITH COMPUTER-AIDED DETECTION CLINICAL HISTORY: : Routine screening exam. COMPARISON: 09/15/2018, 09/01/2018, 04/24/2014, 04/17/2013. TECHNIQUE: Digital mammogram in CC and MLO projections including computer-aided detection (CAD). BREAST COMPOSITION: There are areas of scattered fibroglandular density. FINDINGS: RIGHT Breast: No suspicious findings. Post biopsy changes x2. LEFT Breast: Nodular density lower inner quadrant 4 cm from the nipple. Benign appearing calcifications. IMPRESSION: LEFT breast asymmetry/mass. RECOMMENDATIONS: Additional mammographic views of the LEFT breast including 3D CC/3D MLO. LEFT breast ultrasound may also be required. The [facility] will contact the patient for follow-up. BI-RADS Category 0: Incomplete: Need Additional Imaging Evaluation and/or Prior Mammograms for Comparison A lay language report of this examination will be provided to the patient. Dictated by Dorian Lopez MD @ 04/01/2022 8:44:11 AM jj/Dictated by: Dorian Lopez MD @ 04/01/2022 8:44:00 AM (Electronically Signed)
--- NOTE | 2022-03-31 15:30 | CRLHL7_ITS ---
For Patients: As a result of the Century Cures Act, medical imaging exams and procedure reports are released immediately into your electronic medical record. You may view this report before your referring provider. If you have questions, please contact your health care provider. DXA BONE MINERAL DENSITY STUDY Current height (in): 64. Weight (lb): 181. Menopause age: 40. Ethnicity: White. 1. Have you had a previous hip or vertebral fracture? No. 2. Have you had any fractures during your adult life which did not result from significant trauma (e.g., auto accident)? No. 3. Did either of your parents have a hip fracture? No. 4. Do you smoke? No. 5. Have you ever taken Glucocorticoids? No. 6. Do you have rheumatoid arthritis? Yes. 7. Do you have secondary osteoporosis? No. 8. Do you drink 3 or more alcoholic drinks per day? No. 9. Are you being treated for osteoporosis? No. 10. Have you ever taken any of the following medications: Actonel, Evista, Fosamax, Miacalcin, Reclast, Boniva, Forteo, HRT (i.e. estrogen/hormone therapy), Protelos, Prolia, Vitamin D, Calcium, other ??? please specify. ANSWER: No. 11. Do you have any of the following medical conditions: Anorexia or bulimia, asthma or emphysema, end stage renal disease, hyperparathyroidism, any seizure disorders, cancer, inflammatory bowel diseases, hysterectomy, other ??? please specify. ANSWER: No. 12. What was your maximum height (inches)? 66 13. Do you perform weight bearing exercise regularly? No. 14. Do you regularly consume dairy products? Yes. 15. Do you drink caffeinated beverages? Yes. If female: 16. At what age did your period start? 15. 17. Are you premenopausal? No. 18. How many full term pregnancies have you had? 4. 19. Have you ever missed your period for more than 6 months in a row (not including or menopause)? No. TECHNIQUE: Bone mineral density study was performed using the [employer]. FINDINGS: The results of the study expressed as bone mineral density (BMD) are as follows: Lumbar spine L1 to L2: BMD: 1.029 g/cm2. T-score: 0.5. Z-score: 2.2 Neck Left: BMD: 0.682 g/cm2. T-score: -1.5. Z-score: 0.0 Right: BMD: 0.678 g/cm2. T-score: -1.5. Z-score: 0.0 Total Left: BMD: 0.852 g/cm2. T-score: -0.7. Z-score: 0.5 Right: BMD: 0.872 g/cm2. T-score: -0.6. Z-score: 0.7 IMPRESSION: Osteopenia. FRAX 10-year Fracture Risk Major Osteoporotic Fracture: 11% Hip Fracture: 1.3% Reported Risk Factors: [place] () Neck BMD = 0.678, BMI = 31.1, rheumatoid arthritis Dorian Lopez M.D. Diagnostic Radiologist [email or web address]/Dictated by: Dorian Lopez MD @ 04/01/2022 8:45:00 AM (Electronically Signed)
== END 2022-03-31 14:39 | disposition home or self-care (01) ==
PROVIDERS: PCP Internal Medicine; Visit Provider Internal Medicine
DX: Z12.31 Encounter for screening mammogram for malignant neoplasm of breast (principal); N63.20 Unspecified lump in the left breast, unspecified quadrant; Z13.820 Encounter for screening for osteoporosis; M85.89 Other specified disorders of bone density and structure, multiple sites; Z78.0 Asymptomatic menopausal state
CPT/HCPCS: 77067; 77080

== ENCOUNTER 2022-04-05 09:14 | Outpatient (CLI) | payer MEDICARE, BC, SELFPAY ==
--- OUTSIDE RECORDS SUMMARY | 2022-04-05 09:18 | XMS_ITS | Encounter Summary ---
:1955 Author Organization [facility] Address [address] [place] [address] Care Team Providers Name Role Phone Unavailable [...] do you attend cheondoism or Never 2018 yazidi services? Do you [...] Appointment Radiology Mark Eastman M.D., M.S. 200 [place] [phone] 04/26/2022 Office Visit Otorhinolaryngology Roxanne Lanza APRN, C.N.P. [address] [place] [phone] 04/28/2022 Appointment Radiation Oncology Ursula Aguirre M.D. 200 [place] [phone] documented as of this encounter Procedures Procedure [...]
--- OUTSIDE RECORDS SUMMARY | 2022-04-05 09:18 | XMS_ITS | Encounter Summary ---
:1955 Author Organization [facility] Address [address] [place] [address] Care Team Providers Name Role Phone Unavailable Primary Care Provider Unavailable Reason for Referral Outpatient (Routine) - Closed Specialty Diagnoses / Procedures Referred By Contact Refer red To Contact Radiation Oncology Summer Pérez P.A.-C., [facility] [address] [place] [phone] Referral ID Status Reason Start Date Expiration Date Visits Requ ested Visits Authorized [id number] Closed 01/21/2022 01/21/2023 1 1 Scheduling Instructions Please schedule visit with Dr. Aguirre in January. Patient is moving in February. Encounter Details Date Type Department Care Team Description 01/21/2022 Clinical Communication Department of Radiation Kareem Pérez, Oncology in [place], Melissa, M.S. [address] [place] [phone] Social History Tobacco Use Types Packs/Day Years [...] do you attend buddhism or Never 2018 sabianist services? Do you [...] also commented that she is moving to [place] next month. Her fzrrwyjg-ws-bkp is going to help her set up new medical care in [place]. I offered her a visit here before [...] Radiology Mark Eastman M.D., M.S. [address] [place] [phone] 04/26/2022 Office Visit Otorhinolaryngology Roxanne Lanza, RAILROAD MECHANIC, C.N.P. [address] [place] [phone] 04/28/2022 Appointment Radiation Oncology Ursula Aguirre M.D. [address] [place] [phone] Scheduled Referrals Name Type Priority Associated Diagnoses Order S [facility] Radiation Oncology Outpatient Referral Routine Ex pected: office visit 02/01/2022 (clinic) (Approximate), Expires: 01/21/2023 documented as of this encounter Visit Diagnoses Not on filedocumented in this encounter
--- OUTSIDE RECORDS SUMMARY | 2022-04-05 09:18 | XMS_ITS | Encounter Summary ---
:1955 Author Organization [facility] Address [address] [place] [address] Care Team Providers Name Role Phone Unavailable Primary Care Provider Unavailable Reason for Referral Outpatient (Routine) - Authorized Specialty Diagnoses / Procedures Referred By Contact Refer red To Contact Radiation Oncology Summer Pérez P.A.-C., [facility] [address] [place] [phone] Referral ID Status Reason Start Date Expiration Date Visits V isits Requested Authorized [id number] Authorized 01/27/2022 01/27/2023 1 1 Scheduling Instructions Please schedule after ENT appointment an d CT imaging in [place]. Outpatient (Routine) - Closed Specialty Diagnoses / Procedures Referred By Contact Refer red To Contact Radiation Oncology Summer Pérez P.A.-C., [facility] [address] [place] [phone] Referral ID Status Reason Start Date Expiration Date Visits Requ ested Visits Authorized [id number] Closed 01/21/2022 01/21/2023 1 1 Scheduling Instructions Please schedule visit with Dr. Aguirre in January. Patient is moving in February. Reason for Visit Outpatient (Routine) - Closed Specialty Diagnoses / Procedures Referred By Contact Refer red To Contact Radiation Oncology Summer Pérez P.A.-C., [facility] [address] [place] [address] Referral ID Status Reason Start Date Expiration Date Visits Requ ested Visits Authorized [id number] Closed 01/21/2022 01/21/2023 1 1 Encounter Details Date Type Department Care Team Description 01/27/2022 Hospital Encounter Department of Ursula Aguirre Neoplasm Of Supraglottic (HCC) (Primary Dx); Radiation Oncology Kimberley Bacon Hypothyroidism Secondary in [place], [address] [place], [place] [address] [facility] [address] [place], [place] [phone] (Work) [phone] Social History Tobacco Use Types Packs/Day Years [...] do you attend mandaeism or Never 2018 confucianist services? 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 - 01/27/2022 10:30 AM CDT SUBJECTIVE DIAGNOSIS 1. Malignant Neoplasm Of Supraglottic (HCC) 2. Hypothyroidism Secondary SUPERVISED BY: Ursula Aguirre M.D. HISTORY OF PRESENT ILLNESS Ms. Obdulia Narayan is a 66-year-old female with supraglottic squamous cell carcinoma??who received definitive radiation and chemotherapy, completed May 04, 2019. Her oncologic history is as follows: 1. November 2018: ??The patient noted throat pain with swallowing along with intermittent ear pain,??managed with Tylenol. 2. February 2019: ??The patient experienced progressively worsening throat pain,??odynophagia, 10 pound??unintentional weight loss, hoarseness over the past few weeks,??and difficulty sleeping due to increased secretion. 3. February 08, 2019: ??Appointment with Dr. Darryl Grayson???[facility] at [facility]. ??Physical examination with flexible laryngoscopy revealed a large fungating mass overlying the posterior left arytenoid that appeared fairly extensive, extending over to the right arytenoid into the piriform sinus. ?? Vocal cords move normally. ??Patient did have some shotty adenopathy on the left side. ??Ordered CT scan and then arrange referral to [facility]. 4. February 12, 2019: ??CT scan of [...] Hung Mabry and Dr. Frank Arrieta??at [facility]. ??Physical examination revealed an exophytic mass of [...] will be referred to Radiation Oncology in [place]. 8. March 13, 2019: ??Follow-up appointment with Dr. Arrieta and Dr. Mabry who discussed treatment options including total laryngectomy versus radiation therapy. ??They were not able to offer partial laryngectomy given her lung disease and possible aspiration. ?? 9. March 15, 2019: ??Phone call with Dr. Tapia with the patient's rysboezb-py-wty reported that the patient had decided to undergo radiation treatment in [place]. ??She will have a follow-up abdominal MRI at [place]. ??The patient will follow-up with her primary [...] ??PEG tube was dislodged, removed and replaced. 15. ??January 31, 2020: ??Swallow study demonstrated moderate oropharyngeal dysphagia characterized by minimal aspiration. ??The patient was safe to consume soft/moist foods and thin liquids. 16. ??February 26, 2020: ??PEG tube was removed. 17. ??March 03, 2020: ??TSH 7.5 mIU/L 18. ??June 12, 2020: ??PET/CT showed no FDG avid head and neck lymphadenopathy. Scattered physiologic muscular uptake in the neck. No distant metastatic disease.?She has a stable 5.3 cm infrarenal aortic aneurysm.?Her scope with Ms. Lanza went well.? 19. September 17, 2021: TSH 17.4 mIU/L. Patient was prescribed levothyroxine 50 mcg daily. 20. October 29, 2021: TSH 7.0 mIU/L. 21. January 19, 2022: TSH 19.6 mIU/L. Patient had stopped taking levothyroxine on her own. Ujvqxzubthpww63 mcg daily was re-initiated and a TSH re-check was recommended in 4-6 weeks. INTERVAL HISTORY The patient was seen and examined today with Dr. Aguirre. The patient reports doing well overall. She denies fatigue. She reports that she has noticed improved energy levels and she has been able to be more active since re-initiating levothyroxine. Her activity continues to be limited by her arthritis. She reports that her weight is stable. She denies any pain or difficulty with swallowing. She is eating regular foods without issue. She reports good taste. She denies noticing any new mouth lesions or palpable lumps or bumps. She has mild mouth dryness and uses Biotene spray with benefit. She reports good breathing overall. She denies recent fever or chills. She has dentures and reports no related concerns. She reports that her son and qeympsrw-ry-vch aregetting kicked out of their house, where she also lives, and she is requesting a social work visit to discuss resources for low-incoming house assistance. If the patient is not able to find housing in the area, then she will be moving to [place] to live with another child, but her preference is to stay here if possible. REVIEW OF SYSTEMS Review of systems was [...] good as can be): 10 OBJECTIVE BP 160/71 (BP Location: Right arm, Patient Position: Sitting, Cuff Size: Large) Pulse 85 Temp 36.4 ??C (Temporal) Wt 83.1 kg BMI 30.90 kg/m?? PHYSICAL EXAM General: Patient is alert and oriented in no apparent distress. 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 #2?Definitive radiotherapy to the supraglottic tumor initiated on March 26, 2019; completed on??May 04, 2019?? The patient is doing well overall in terms of follow-up for her laryngeal cancer. She is now over 2.5 years from treatment completion. I had discussed her thyroid lab results on the phone with her lastweek, but we reviewed this again today in detail. She had previously discontinued levothyroxine 50 mcg daily, but has now resumed taking this as prescribed. I recommended repeat lab work in 4 weeks andhave ordered for this to be done at [facility]. We will contact her with the result and discuss if any dosage adjustments are needed at that time. The patient has a complicated living situation and is asking to meet with a older adult social work specialist to discuss low-incoming housing assistance. If she is not able to find housing in the area, she reports that she will need to move to [place] to live with one of her children, but she prefers to stay here if possible. I have referred the patient for a social work consult at the [facility] to hopefully be scheduled tomorrow morning when the patient will be there for a lab draw, as ordered by her primary provider. The patient was provided with our business card and will keep us updated on her living situation. If the patient ends up moving to [place], we discussed that she would need to establish with a new primary provider and an ENT provider for her cancer follow-up. It is currently planned for her to have follow-up with ENT in [place] in April [address] scan of the neck at that time. We will also schedule a return visit here following her [place] appointments. The patient was asked to contact us sooner with questions or concerns.She verbally expressed her understanding of the plan. EDUCATION Ready to learn, no apparent learning barriers were identified; learning preferences include listening. Explained diagnosis and treatment plan; patient expressed understanding of the content. I personally spent 35 minutes in care of the patient today. Time includes both non face to face and face to face patient care. Signed by: Summer Pérez P.A.-C., M.S. 01/27/2022 12:07 PM CDT [facility] [address] [place] [address] Associated attestation - Ursula Aguirre M.D. - 01/27/2022 3:14 PM CDT I saw and evaluated the patient and participated in the rao portions of the service. I reviewed the documentation of Ms. Summer Pérez PA-C, and agree with the findings and plan. On exam she appears well. Ears-TMs appear normal bilaterally. Oral cavity/oropharynx is normal to inspection. She is edentulous. Neck- she has mild to moderate submental lymphedema, but no masses or adenopathy in either neck. She is hoping not to move away and would like to be seen by Social Work in [place] to help her find reasonable housing. Ursula Aguirre M.D., 01/27/2022 documented in this encounter Plan of Treatment Upcoming Encounters Date Type Specialty Care Team Description 04/22/2022 Clinical Admitting/Central Communication Scheduling 04/26/2022 Appointment Radiology Mark Eastman M.D., M.S. [address] [place] [phone] 04/26/2022 Office Visit Otorhinolaryngology Roxanne Lanza APRN, C.N.P. [address] [place] [phone] 04/28/2022 Appointment Radiation Oncology Ursula Aguirre M.D. [address] [place] [phone] Scheduled Referrals Name Type Priority Associated Order Schedule Diagnoses Radiation Oncology Outpatient Referral Routine On ce for 1 office visit Occurrences sta rting (clinic) 01/27/2022 unti l 01/27/2022 Radiation Oncology Outpatient Referral Routine Ex pected: 04/29/2022 office visit (Approximate), (clinic) Expires: 2022 documented as of this encounter Results (ABNORMAL) [...] Organization Address City/State/ZIP Code Phon e Number [facility]- [address] [place] [address] [place] [address] System in [place] [address]199 documented in this encounter Visit Diagnoses Diagnosis Malignant Neoplasm Of Supraglottic (HCC) - Primary Hypothyroidism Secondary documented in this encounter
--- OUTSIDE RECORDS SUMMARY | 2022-04-05 09:18 | XMS_ITS | Clinical Summary ---
:1955 Author Organization [facility] Address [address] [place] [address] Care Team Providers Name Role Phone Unavailable Primary Care Provider Unavailable Source Comments Patient records contain information from all sites at [facility]. For routine questions regarding patient records, call [phone] during business hours, M-F 8:00 AM - 5:00 PM Central Time. Record requests for emergency care only can be directed to [phone] at any time.[facility] Allergies Active Allergy Reactions Severity Noted Date [...] Added automatically from request for sultana low [id number] Dysphonia 06/12/2020 Dysphagia 08/02/2019 Malignant Neoplasm Of [...] do you attend methodist or Never 2018 yarsani services? 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 [address] [place] [phone] 04/26/2022 Office Visit Otorhinolaryngology Roxanne Lanza, AN/SQQ 89(V)15 SONAR SYSTEM JOURNEYMAN, C.N.P. [address] [place] [phone] 04/28/2022 Appointment Radiation Oncology Ursula Aguirre M.D. [address] [place] [phone] Health Maintenance Due Date Last Done Comments [...] Completed 10/22/2021 Medical Devices Implanted Type Area Plant Hr Manager Device Identifier Shelf Model / Expiration Serial / Date Lot Breast Other Breast Right: Other Breast Clp Hrzn Ti 6 Clp David - [id number] Hardware [employer] [id number] 06/21/2026 [id number] / Implanted: Qty: 2 on 10/22/2021 by Mark Bartlett M.D., M.S. at [facility] e.g. / pins/screws [id number] /rods Grft Vsc Bov 0.8x8 - [id number] Mesh or [employer] 04/29/2026 [id number] / Implanted: Qty: 1 on 10/22/2021 by Mark Bartlett M.D., M.S. at [facility] Patch / [id number] Grft Exc Aaa Ext 12x12 - [id number] - [id number] Vascular [place] 01/03/2023 [id number] / Implanted: Qty: 1 on 10/22/2021 by Mark Bartlett M.D., M.S. at [facility] Graft [id number] / Explanted Type Area Plant Hr Manager Device Shelf Model / Identifier Expiration Date Ser ial / Lot Mesh Or Patch Mesh or Abdomen Patch Procedures Procedure Name Priority Date/Time Associated Diagnosis Comme nts THYROID-STIMULATING Routine 02/26/2022 9:43 AM Malignant Neopl asm Of Results for this HORMONE-SENSITIVE CDT Supraglottic ( HCC) procedure are in (S-TSH) Hypothyroidism the results Secondary section. WI T4 FREE Routine 01/19/2022 9:42 AM Results f or this CDT procedure are i n the results section. WI MICROSOMAL AB Routine 01/19/2022 9:42 AM Resul [...] Code Phon e Number [facility]- [address] [place] [address] [facility] [place] [address] System in [place] [address] Thyroperoxidase (TPO) Antibodies, Serum (01/19/2022 [...] City/State/ZIP Code Phon e Number [facility] - 200 [place], [place] [address] [facility] [place] [address] [facility] 200 [facility] T4 (Thyroxine), Free, Serum (01/19/2022 9:42 [...] Code Phon e Number [facility]- [address] [place] [address] [facility] [place] [address] System in [place] [address] (ABNORMAL) Thyroid Function [place] (01/19/2022 9:42 AM CDT) P athologist Signature [...] Code Phon e Number [facility]- [address] [place] [address] [facility] [place] [address] System in [place] [address] from Last 3 Months Insurance Payer Benefit Plan Subscriber ID Effective Phone Address Typ e / Group Dates MEDICARE MEDICARE A [id number] 2021-Pres [address] [place] [address] BLUE CROSS BCBS BLUE [id number] 2021-Prese ATTN: Andrea molina HMO BLUE SHIELD PLUS HMO nt CONSUMER [facility] [address] [address] [place] [address] Advance Directives For more information, please contact: [phone] Latest Code Status on File Code Status Date Activated Date Inactivated Comments Full Code 10/22/2021 8:25 PM 10/24/2021 3:37 PM Full Code: Discussed Full Code 10/22/2021 10:56 AM 10/22/2021 8:25 PM Full Code: Discussed
--- OUTSIDE RECORDS SUMMARY | 2022-04-05 09:18 | XMS_ITS | Encounter Summary ---
:1955 Author Organization [facility] Address [address] [place] [address] Care Team Providers Name Role Phone Unavailable Primary Care Provider Unavailable Encounter Details Date Type Department Care Team Description 01/19/2022 Hospital Encounter Department of Summer Pérez Hypothy roidism Laboratory Medicine P.Marilou., M.S . Secondary in [place], [address] [place] [address] [address] [facility] [address] [place], [place] [phone] (Work) [phone] Social History Tobacco Use Types Packs/Day Years [...] you attend latter day or Never 2018 advent services? Do you [...] Radiology Mark Eastman M.D., M.S. [address] [place] [phone] 04/26/2022 Office Visit Otorhinolaryngology Roxanne Lanza APRN, C.N.P. [address] [place] [phone] 04/28/2022 Appointment Radiation Oncology Ursula Aguirre M.D. [address] [place] [phone] documented as of this encounter Procedures Procedure Name Priority Date/Time Associated Diagnosis Comme nts HI MICROSOMAL AB Routine 01/19/2022 9:42 AM Resul ts for this EA/TPO CDT procedure are i n the results section. HI T4 FREE Routine 01/19/2022 9:42 AM Results [...] Comment: Biotin has been [facility] as a potential interfering substance. [...] Organization Address City/State/ZIP Code Phon e Number [facility]- [address] [place] [address] [place] [address] System in [place] [address] Thyroperoxidase (TPO) Antibodies, Serum (01/19/2022 9:42 AM CDT) Patholo gist Method Time Signature Thyroperoxidase Ab, 1.3 <9.0 01/20/2022 DTL S IU/mL 9:05 AM CDT Specimen Anatomical Collection Method Collection Time Receive d Time (Source) Location / / Volume Laterality Blood 01/19/2022 9:42 AM 6:49 CDT AM CDT Summer Pérez P.A.-C., M.S. LAB BLOOD NON ADD-ON Performing Organization Address City/[facility]/ZIP Code Phon e Number [facility] - 200 [place], [place] [address] [facility] [place] [address] [facility] 200 [facility] (ABNORMAL) Thyroid Function [place] (01/19/2022 9:42 AM CDT) P athologist Signature TSH, Sensitive 19.6 (H) 0.3 - 4.2 01/19/2022 [place] mIU/L 12:52 PM CDT Specimen Anatomical Collection Method Collection Time Receive d Time (Source) Location / / Volume Laterality Blood (Blood, 01/19/2022 9:42 AM 01/20/20 22 Venous) CDT 11:06 AM CDT Summer Pérez P.A.-C., M.S. LAB BLOOD ADD-ON Performing Organization Address City/State/ZIP Code Phon e Number [facility]- [address] [place] [address] [place] [address] System in [place] [address] documented in this encounter Visit Diagnoses Diagnosis Hypothyroidism Secondary documented in this encounter
--- OUTSIDE RECORDS SUMMARY | 2022-04-05 09:18 | XMS_ITS | Encounter Summary ---
:1955 Author Organization [facility] Address [address] [place] [address] Care Team Providers Name Role Phone Unavailable Primary Care Provider Unavailable Reason for Referral Outpatient (Routine) - Closed Specialty Diagnoses / Procedures Referred By Contact Refer red To Contact Vascular Surgery Sanna Newman P.A. [facility] [address] [place] [phone] Referral ID Status Reason Start Date Expiration Date Visits Requ ested Visits Authorized [id number] Closed 11/03/2021 11/03/2022 1 1 Scheduling Instructions 2pm ideally Encounter Details Date Type Department Care Team Description 11/03/2021 Orders Only Division of Vascular and Sanna Newman, Endovascular Surgery in [place], [place] [address] [place] [address] [address] [place] [phone] (Wo rk) Social History Tobacco Use Types [...] do you attend confucianism or Never 2018 sikhism services? Do you belong to any clubs or No 02/21/2019 organizations such as confucianism groups, unions, fraBuildingeye or athletic groups, or school groups? How [...] Radiology Mark Eastman M.D., M.S. [address] [place] [phone] 04/26/2022 Office Visit Otorhinolaryngology Roxanne Lanza APRN, C.N.P. [address] [place] [phone] 04/28/2022 Appointment Radiation Oncology Ursula Aguirre M.D. [address] [place] [phone] Scheduled Referrals Name Type Priority Associated Diagnoses Order S chedule Vascular Surgery Outpatient Referral Routine Expe cted: Post Op (clinic) 11/04/2021 (Approximate), Expires: 02/03/2023 documented as of this encounter Visit Diagnoses Not on filedocumented in this encounter
--- OUTSIDE RECORDS SUMMARY | 2022-04-05 09:18 | XMS_ITS | Encounter Summary ---
:1955 Author Organization [facility] Address [address] [place] [address] Care Team Providers Name Role Phone Unavailable Primary Care Provider Unavailable Reason for Visit Reason Comments Med Refill Encounter Details Date Type Department Care Team Description 02/12/2022 Refill Department of Radiation Summer Pérez P.A .-C., Med Refill Oncology in [facility] [address] [facility] [address] [place] [phone] [place] [phone] Social History Tobacco Use Types Packs/Day Years [...] do you attend religious or Never 2018 holiness services? Do you [...] Radiology Mark Eastman M.D., M.S. [address] [place] [phone] 04/26/2022 Office Visit Otorhinolaryngology Roxanne Lanza APRN, C.N.P. [address] [place] [phone] 04/28/2022 Appointment Radiation Oncology Ursula Aguirre M.D. [address] [place] [phone] documented as of this encounter Visit Diagnoses Not on filedocumented in this encounter
--- OUTSIDE RECORDS SUMMARY | 2022-04-05 09:18 | XMS_ITS | Encounter Summary ---
:1955 Author Organization [facility] Address [address] [place] [address] Care Team Providers Name Role Phone Unavailable Primary Care Provider Unavailable Encounter Details Date Type Department Care Team Description 11/02/2021 Clinical Communication Department of Radiation Kareem Pérez, Oncology in [place], P.A.-Estefanía., .S. [place] [address] [place] [address] 1821 [place] [address] [phone] Social History Tobacco Use Types Packs/Day Years [...] do you attend hindu or Never 2018 mormon services? Do you [...] 75 mcg daily. I called the patient's [id number], Darlin, to discuss the result. Darlin's phone [...] Radiology Mark Eastman M.D., M.S. [address] [place] [phone] 04/26/2022 Office Visit Otorhinolaryngology Roxanne Lanza, FIELD RETURN REPAIRER, C.N.P. [address] [place] [phone] 04/28/2022 Appointment Radiation Oncology Ursula Aguirre M.D. [address] [place] [phone] documented as of this encounter Visit Diagnoses Not on filedocumented in this encounter
--- OUTSIDE RECORDS SUMMARY | 2022-04-05 09:18 | XMS_ITS | Encounter Summary ---
:1955 Author Organization [facility] Address [address] [place] [address] Care Team Providers Name Role Phone Unavailable Primary Care Provider Unavailable Encounter Details Date Type Department Care Team Description 10/29/2021 Hospital Encounter Department of Summer Pérez Hypothy roidism Laboratory Medicine P.Marilou., M.S . Secondary in [place], [address] [place] [address] 300 [facility] [phone] [place], [place] [phone] (Work) [phone] Social History Tobacco Use Types Packs/Day Years [...] do you attend sabianism or Never 2018 orthodox services? Do you [...] Radiology Mark Eastman M.D., M.S. [address] [place] [phone] 04/26/2022 Office Visit Otorhinolaryngology Roxanne Lanza APRN, C.NDori [address] [place] [phone] 04/28/2022 Appointment Radiation Oncology Ursula Aguirre M.D. [address] [place] [phone] documented as of this encounter Procedures Procedure Name Priority Date/Time Associated Diagnosis Comme nts KS MICROSOMAL AB Routine 10/30/2021 7:09 PM Resul ts for this EA/TPO CDT procedure are i n the results section. KS T4 FREE Routine 10/29/2021 12:47 Results for [...] Number [facility] - [address] [place] [phone] [facility] [place] [address] Laboratories-[facility] 200 [facility] T4 (Thyroxine), Free, Serum (10/29/2021 12:47 [...] M.S. LAB BLOOD ADD-ON Performing Organization Address City/[facility]/ZIP Code Phon e Number [facility]- [address] [place] [address] [place] [address] System in [place] [address] [place] [address] (ABNORMAL) Thyroid Function [place] (10/29/2021 12:47 PM CDT) P athologist Signature TSH, Sensitive 7.0 (H) 0.3 - 4.2 10/29/2021 [place] mIU/L 5:10 PM CDT Specimen Anatomical Collection Method Collection Time Receive d Time (Source) Location / / Volume Laterality Blood (Blood, 10/29/2021 12:47 10/29/2021 3:29 Venous) PM CDT PM CDT Summer Pérez P.A.-C., M.S. LAB BLOOD ADD-ON Performing Organization Address City/[facility]/ZIP Code Phon e Number [facility]- [address] [place] [address] [place] [address] System [address] documented in this encounter Visit Diagnoses Diagnosis Hypothyroidism Secondary documented in this encounter
--- OUTSIDE RECORDS SUMMARY | 2022-04-05 09:18 | XMS_ITS | Encounter Summary ---
:1955 Author Organization [facility] Address [address] [place] [address] Care Team Providers Name Role Phone Unavailable Primary Care Provider Unavailable Reason for Visit Reason Comments Med Refill Encounter Details Date Type Department Care Team Description 01/14/2022 Refill Department of Radiation Summer Pérez P.A .-C., Med Refill Oncology in [facility] [address] [facility] 1821 [place] [address] [place] [address] [phone] Social History Tobacco Use Types Packs/Day Years [...] do you attend episcopal or Never 2018 sabianism services? Do you [...] Radiology Mark Eastman M.D., M.S. [address] [place] [phone] 04/26/2022 Office Visit Otorhinolaryngology Roxanne Lanza APRN, C.N.P. [address] [place] [phone] 04/28/2022 Appointment Radiation Oncology Ursula Aguirre M.D. [address] [place] [phone] documented as of this encounter Results (ABNORMAL) Thyroid Function [place] (01/19/2022 9:42 AM CDT) athologist Signature TSH, Sensitive 19.6 (H) 0.3 - 4.2 01/19/2022 [place] mIU/L 12:52 PM CDT Specimen Anatomical Collection Method Collection Time Receive d Time (Source) Location / / Volume Laterality Blood (Blood, 01/19/2022 9:42 AM 01/20/20 22 Venous) CDT 11:06 AM CDT Summer Pérez P.A.-C., M.S. LAB BLOOD ADD-ON Performing Organization Address City/State/ZIP Code Phon e Number [facility] 2199 [place] [address] [facility] [place] [address] System in [place] 2199 [facility] documented in this encounter Visit Diagnoses Diagnosis Hypothyroidism Secondary - Primary documented in this encounter
--- OUTSIDE RECORDS SUMMARY | 2022-04-05 09:18 | XMS_ITS | Encounter Summary ---
:1955 Author Organization [facility] Address [address] [place] [address] Care Team Providers Name Role Phone Unavailable Primary Care Provider Unavailable Encounter Details Date Type Department Care Team Description 02/26/2022 Hospital Encounter Department of Summer Pérez Maligna nt Neoplasm Of Supraglottic (HCC); Laboratory Medicine P.Hortencia, M.S . Hypothyroidism Secondary in [place], [address] [place], [place] 300 [facility] [address] [address] [place], [place] [phone] (Work) [phone] Social History Tobacco Use Types Packs/Day Years [...] do you attend yazidism or Never 2018 mormon services? Do you [...] to pay for the very basics like [email or web address] hat hard 02/21/2019 food, housing, medical care, [...] Radiology Mark Eastman M.D., M.S. [address] [place] [phone] 04/26/2022 Office Visit Otorhinolaryngology Roxanne Lanza, PRODUCT MGR, C.N.P. [address] [place] [phone] 04/28/2022 Appointment Radiation Oncology Ursula Aguirre M.D. [address] [place] [phone] documented as of this encounter Procedures Procedure [...] Organization Address City/State/ZIP Code Phon e Number [facility]- 2199 [place] [address] [facility] [place] [address] System in [place] [address] documented in this encounter Visit Diagnoses Diagnosis Malignant Neoplasm Of Supraglottic (HCC) Hypothyroidism Secondary documented in this encounter
--- OUTSIDE RECORDS SUMMARY | 2022-04-05 09:18 | XMS_ITS | Encounter Summary ---
:1955 Author Organization [facility] Address [address] [place] [address] Care Team Providers Name Role Phone Unavailable Primary Care Provider Unavailable Reason for Visit Reason Comments Post-op Outpatient (Routine) - Closed Specialty Diagnoses / Procedures Referred By Contact Refer red To Contact Vascular Surgery Carlotta Beth APRN, [facility] C.N.P., M.S.N. [address] [place] [phone] Referral ID Status Reason Start Date Expiration Date Visits Requ ested Visits Authorized [id number] Closed 11/05/2021 11/05/2022 1 1 Encounter Details Date Type Department Care Team Description 11/13/2021 Office Visit Division of Vascular Remington Beth i, APRN, C.N.P., M.S.N. [address] [place] [phone] Wound Postoperative and Endovascular Ema Lobato APRN, C.N.P., M.S.N. [address] [place] [phone] Exam (Primary Dx) Surgery in [place], [place] [address] [place] [phone] Social History Tobacco Use Types Packs/Day Years [...] do you attend religion or Never 2018 religion services? Do you [...] dismissal, pain medication (examples: oxycodone, Dilaudid, Tramadol, Davis, etc.) will be prescribed to you if needed. Duration will be determined on a czwh-rw-[id number] basis and will notexceed 2 weeks. Thereafter, you will need to be evaluated by your primary care provider or your surgical team if operative pain persists. Should you need to contact Dr. Eastman or his service in the interim, you may do so through his medical assistant at during normal business hours of 8 to 5 Tuesday through Tuesday (excluding holidays) or, in an emergency situation, through the [place] [facility] corn press operator at (Service pager: [phone]). documented in this encounter Progress Notes Ema [...] home postoperatively. Ms. Narayan returns to the [facility] today for wound assessment. Ms. [...] Radiology Mark Eastman M.D., M.S. [address] [place] [phone] 04/26/2022 Office Visit Otorhinolaryngology Roxanne Lanza APRN, C.N.P. [address] [place] [phone] 04/28/2022 Appointment Radiation Oncology Ursula Aguirre M.D. [address] [place] [phone] documented as of this encounter Visit Diagnoses Diagnosis Wound Postoperative Exam - Primary documented in this encounter
--- OUTSIDE RECORDS SUMMARY | 2022-04-05 09:18 | XMS_ITS ---
:1955 Author Organization [facility] Address [address] [place] [address] Care Team Providers Name Role Phone Unavailable [...] Added automatically from request for sultana low [id number] Dysphonia 06/12/2020 Dysphagia 08/02/2019 Malignant Neoplasm Of [...] [facility] [place], [facility] scheduled. TRACY Bard[address], C.N.P. Radiation Treatments Plan Last Treated On Days Fractions Prescribed Prescri bed Total Treated Fraction Dose Dose F1 H&N 05/04/2019 39 35 of 35 200 cGy 7,000 cGy Reference Point Last Treated On Elapsed Days Session Dose Total Dos e [id number] 05/04/2019 39 200 cGy 7,000 cGy Lifetime Dose Tracking Chemical Lifetime Dose Automatic Entry Manual Entry Radiation 801.56 mGy 40.56 mGy 761 mGy Fluoro Time 31.3 minutes 5.2 minutes 26.1 minutes DAP (Gy-cm2) 221.25 Gy-cm2 0 Gy-cm2 221.25 Gy-cm2 Resolved Problems Problem Noted Date Resolved Date Tobacco Use 04/22/2011 10/22/2021
--- OUTSIDE RECORDS SUMMARY | 2022-04-05 09:18 | XMS_ITS | Encounter Summary ---
:1955 Author Organization [facility] Address [address] [place] [address] Care Team Providers Name Role Phone Unavailable [...] do you attend hindu or Never 2018 evangelical services? Do you [...] Appointment Radiology Mark Eastman M.D., M.S. 200 [place] [phone] 04/26/2022 Office Visit Otorhinolaryngology Roxanne Lanza APRN, C.N.P. [address] [place] [phone] 04/28/2022 Appointment Radiation Oncology Ursula Aguirre M.D. 200 [place] [phone] documented as of this encounter Procedures Procedure [...]
--- OUTSIDE RECORDS SUMMARY | 2022-04-05 09:18 | XMS_ITS | Encounter Summary ---
:1955 Author Organization [facility] Address [address] [place] [address] Care Team Providers Name Role Phone Unavailable Primary Care Provider Unavailable Encounter Details Date Type Department Care Team Description 11/03/2021 Clinical Communication Division of Vascular and Sanna Newman, Endovascular Surgery in P.A.-C. [place], [place] [address] [facility] [address] [place] [phone] Social History Tobacco Use Types Packs/Day Years [...] do you attend druze or Never 2018 sikhism services? Do you [...] in post-hospital follow-up. I spoke with her [id number] Darlin over the phone. Ms. Narayan has [...] agreement with the plan. Sanna Newman PA-C [facility] Department of Vascular and Endovascular Surgery Telephone Encounter - Sanna Newman P.A.-C. - 11/03/2021 1:06 PM CDT ----- Message from Rachel Harper APRN, C.N.P., M.S.N. sent at 10/23/2021 11:57 AM EPOXY SPECIALIST ----- Regarding: FU CALL documented in this encounter Plan of Treatment Upcoming Encounters Date Type Specialty Care Team Description 04/22/2022 Clinical Admitting/Central Communication Scheduling 04/26/2022 Appointment Radiology Mark Eastman M.D., M.S. [address] [place] [phone] 04/26/2022 Office Visit Otorhinolaryngology Roxanne Lanza, GENERAL INTERN, C.N.P. [address] [place] [phone] 04/28/2022 Appointment Radiation Oncology Ursula Aguirre M.D. [address] [place] [phone] documented as of this encounter Visit Diagnoses Not on filedocumented in this encounter"
--- OUTSIDE RECORDS SUMMARY | 2022-04-05 09:18 | XMS_ITS | Encounter Summary ---
:1955 Author Organization [facility] Address [address] [place] [address] Care Team Providers Name Role Phone Unavailable Primary Care Provider Unavailable Reason for Visit Reason Comments Med Refill Encounter Details Date Type Department Care Team Description 03/18/2022 Refill Department of Radiation Summer Pérez P.A .-C., Med Refill Oncology in [facility] [address] [facility] 1821 [place] [address] [place] [phone] Social History Tobacco Use Types Packs/Day Years [...] do you attend rastafari or Never 2018 shinto services? Do you [...] Radiology Mark Eastman M.D., M.S. [address] [place] [phone] 04/26/2022 Office Visit Otorhinolaryngology Roxanne Lanza APRN, C.N.P. [address] [place] [phone] 04/28/2022 Appointment Radiation Oncology Ursula Aguirre M.D. [address] [place] [phone] documented as of this encounter Visit Diagnoses Not on filedocumented in this encounter
--- OUTSIDE RECORDS SUMMARY | 2022-04-05 09:18 | XMS_ITS | Encounter Summary ---
:1955 Author Organization [facility] Address [address] [place] [address] Care Team Providers Name Role Phone Unavailable Primary Care Provider Unavailable Reason for Referral Outpatient (Routine) - Closed Specialty Diagnoses / Procedures Referred By Contact Refer red To Contact Vascular Surgery Carlotta Beth APRN, [facility] C.N.PShital, M.S.N. [address] [place] [phone] Referral ID Status Reason Start Date Expiration Date Visits Requ ested Visits Authorized [id number] Closed 11/05/2021 11/05/2022 1 1 Reason for Visit Reason Comments Post-op Outpatient (Routine) - Closed Specialty Diagnoses / Procedures Referred By Contact Tyler agarwal To Contact Vascular Surgery Sanna Newman P.A. -C. [address] [phone] Referral ID Status Reason Start Date Expiration Date Visits Requ ested Visits Authorized [id number] Closed 11/03/2021 11/03/2022 1 1 Encounter Details Date Type Department Care Team Description 11/05/2021 Office Visit Division of Vascular Mary Newman P.A.-C. [address] [place] [phone] Wound Postoperative and Endovascular Carlotta Beth APRN, C.N.P., M.S.N. [address] [place] [phone] Exam (Primary Dx) Surgery in [place], [place] [address] [place] [phone] Social History Tobacco Use Types Packs/Day Years [...] do you attend rastafari or Never 2018 episcopalian services? Do you [...] or, in an emergency situation, through the [facility] emergency communications operator at (Service pager: [phone]). Watch left groin closely for any signs [...] home postoperatively. Ms. Narayan returns to the [facility] today for wound assessment. Ms. [...] Radiology Mark Eastman M.D., M.S. [address] [place] [phone] 04/26/2022 Office Visit Otorhinolaryngology Roxanne Lanza APRN, C.N.P. [address] [place] [phone] 04/28/2022 Appointment Radiation Oncology Ursula Aguirre M.D. [address] [place] [phone] Scheduled Referrals Name Type Priority Associated Diagnoses Order S chedule Vascular Surgery Outpatient Referral Routine Expe cted: Post Op (clinic) 11/13/2021, Expires: 02/05/2023 documented as of this encounter Visit Diagnoses Diagnosis Wound Postoperative Exam - Primary documented in this encounter
--- OUTSIDE RECORDS SUMMARY | 2022-04-05 09:18 | XMS_ITS | Encounter Summary ---
:1955 Author Organization [facility] Address [address] [place] [address] Care Team Providers Name Role Phone Unavailable Primary Care Provider Unavailable Encounter Details Date Type Department Care Team Description 03/04/2022 Clinical Communication Department of Radiation Kareem Pérez, Oncology in [place], P.A.-Estefanía., .S. [place] [address] [place] [address] 1821 [place] [phone] Social History Tobacco Use Types Packs/Day Years [...] do you attend islam or Never 2018 zoroastrian services? Do you [...] Radiology Mark Eastman M.D., M.S. [address] [place] [phone] 04/26/2022 Office Visit Otorhinolaryngology Roxanne Lanza, FIRE EXTINGUISHER MECHANIC, C.N.P. [address] [place] [phone] 04/28/2022 Appointment Radiation Oncology Ursula Aguirre M.D. 200 [place] [phone] documented as of this encounter Visit Diagnoses Not on filedocumented in this encounter
--- OUTSIDE RECORDS SUMMARY | 2022-04-05 09:18 | XMS_ITS | Encounter Summary ---
:1955 Author Organization [facility] Address [address] [place] [address] Care Team Providers Name Role Phone Unavailable Primary Care Provider Unavailable Encounter Details Date Type Department Care Team Description 11/05/2021 Orders Only Division of Vascular and Carlotta Beth APRN, Endovascular Surgery in C.N.P., M.S.N. [place], [place] [address] [facility] [address] [place] [phone] (Wo rk) Social History Tobacco Use Types [...] do you attend jain or Never 2018 hindu services? Do you [...] Radiology Mark Eastman M.D., M.S. [address] [place] [phone] 04/26/2022 Office Visit Otorhinolaryngology Roxanne Lanza, DIRECTOR OF VITAL STATISTICS, C.N.P. [address] [place] [phone] 04/28/2022 Appointment Radiation Oncology Ursula Aguirre M.D. [address] [place] [phone] documented as of this encounter Visit Diagnoses Not on filedocumented in this encounter
--- OUTSIDE RECORDS SUMMARY | 2022-04-05 09:19 | XMS_ITS | Encounter Summary ---
:1955 Author Organization [facility] Address [address] [place] [address] Care Team Providers Name Role Phone Unavailable Primary Care Provider Unavailable Reason for Referral Outpatient (Routine) - Closed Specialty Diagnoses / Procedures Referred By Contact Refer red To Contact Diagnoses Preoperative Examination Cardiovascular Reynaldo Alfaro [place] on Procedures US Carotid Bilateral M.D. [address] [place] [phone] Referral ID Status Reason Start Date Expiration Date Visits Requ ested Visits Authorized [id number] Closed 09/22/2021 09/22/2022 1 1 T OFFICER Reason for Visit Outpatient (Routine) - Closed Specialty Diagnoses / Procedures Referred By Contact Refer red To Contact Diagnoses Preoperative Examination Cardiovascular Reynaldo Alfaro [place] on Procedures US Carotid Bilateral M.D. [address] [place] [phone] Referral ID Status Reason Start Date Expiration Date Visits Requ ested Visits Authorized [id number] Closed 09/22/2021 09/22/2022 1 1 Encounter Details Date Type Department Care Team Description 10/16/2021 Hospital Encounter Department of Magdalena Alfaro Radiology, Brenda Trevizo M.D. Examination Building, in [address] [place] [phone] [place] [address] [place], [place] (Work) [phone] Social History Tobacco Use Types Packs/Day Years [...] do you attend yazidi or Never 2018 tenriism services? Do you [...] Radiology Mark Eastman M.D., M.S. [address] [place] [phone] 04/26/2022 Office Visit Otorhinolaryngology Roxanne Lanza APRN, C.N.P. [address] [place] [phone] 04/28/2022 Appointment Radiation Oncology Ursula Aguirre M.D. [address] [place] [phone] documented as of this encounter Procedures Procedure Name Priority Date/Time Associated Diagnosis Comme nts US CAROTID RAD - Routine 10/16/2021 10:17 Preoperative Results fo r BILATERAL (most inpatients AM FIRST OFFICER Examination this proced ure and all Cardiovascular are in the outpatients) results section. documented in this encounter Results US Carotid Bilateral (10/16/2021 10:17 AM FIRST OFFICER) Anatomical Region Laterality Modality Head and Neck, Ultrasound RST LOS, Ultrasound ARZ LOS, Bilat eral Ultrasound Neuroradiology FLA LOS Specimen (Source) Anatomical Collection Method Collection Time Re ceived Time Location / / Volume Laterality 10/16/2021 10:45 AM FIRST OFFICER Impressions 10/16/2021 10:49 AM FIRST OFFICER 1. 50-69% diameter stenosis in the proximal left internal carotid artery. 2. No evidence for significant right-daly ed carotid artery stenosis. Narrative 10/16/2021 10:49 AM FIRST OFFICER EXAM: US CAROTID BILATERAL Exam performed with [...] normal distal ICA in accordance with [place] Symptomatic Carotid Endar terectomy Trial (NASCET). Procedure [...] normal distal ICA in accordance with [place] Symptomatic Carotid Endar terectomy Trial (NASCET). IMPRESSION: 1. 50-69% diameter stenosis in the proxi mal left internal carotid artery. 2. No evidence for significant right-daly ed carotid artery stenosis. Reynaldo OCAMPO US PROCEDURES documented in this encounter Visit Diagnoses Diagnosis Preoperative Examination Cardiovascular documented in this encounter
--- OUTSIDE RECORDS SUMMARY | 2022-04-05 09:19 | XMS_ITS | Encounter Summary ---
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, Aneurysm Abd ominal Aortic Without Rupture (HCC); [facility], Blossom Chu MShitalS. Aneurysm Abdominal Aortic Without Ruptur e (HCC) [facility], [address] [facility] Eighth Floor [place], [place] [address] [place] [address] [place], [place] [phone] (Work) [phone] Social History Tobacco Use Types Packs/Day Years [...] do you attend yarsanism or Never 2018 congregational services? Do you belong to any clubs or No 02/21/2019 organizations such as yarsanism groups, unions, fraJamn or athletic groups, or school groups? How [...] Comments Blood Pressure 144/67 10/24/2021 12:05 PM FLAT SURFACER Pulse 97 10/24/2021 12:04 PM FLAT SURFACER Temperature 37.1 ??C (98.8 ??F) 10/24/2021 12:04 PM FLAT SURFACER Respiratory Rate 17 10/24/2021 12:05 PM FLAT SURFACER Oxygen Saturation 96% 10/24/2021 12:04 PM FLAT SURFACER Inhaled Oxygen Concentration - - Weight 83.6 kg (184 lb 4.9 oz) 10/24/2021 3:30 AM FLAT SURFACER Height 164 cm (5' 4.57) 10/22/2021 9:46 AM FLAT SURFACER Body Mass Index 31.08 10/22/2021 9:46 AM FLAT SURFACER documented in this encounter Discharge Summaries Sanna Newman P.A.-C. - 10/24/2021 11:59 AM CST DISCHARGE SUMMARY BRIEF OVERVIEW Hospital: [facility] Discharge Provider: Mark Mcneil M.D. Primary Team: [facility] Vascular Surgery - [place] No primary care provider on file. Primary [...] 10/22/2021 Endovascular abdominal aortic aneurysm repair with [place] endoprosthesis. Ultrasound-guided bilateral common femoral artery access., IR IMAGING., Left common femoral endarterectomy with bovine pericardial patch angioplasty Mark Mcneil M.D., M.S.Tai Colunga, M.B.B.S. [facility] ROMB OR DISCHARGE DISPOSITION Home or Self [...] dismissal, pain medication (examples: oxycodone, Dilaudid, Tramadol, [place], etc.) will be prescribed to you if needed. Duration will be determined on a [id number] basis and will notexceed 2 weeks. Thereafter, [...] contact the vascular scheduling office by calling [phone]. Should you need to contact Dr. Mcneil or his service in the interim, you may do so through his medical office scheduler at during normal business hours of 8 to 5 Tuesday through Tuesday (excluding holidays) or, in an emergency situation, through the [facility] drier operator head at (Service pager: [phone]). Mepilex Border Post-Op Ag 1. You had [...] call Dr. Mcneil's nurse practitioner through the [facility] drier operator head [phone]. 7. After removing the dressing, keep the [...] were provided to the patient and caregiver(s). SURFACER documented in this encounter Discharge Instructions AttachmentsThe following attachments cannot be sent through Care Everywhere. Acetaminophen (By mouth) (Citizen [place])Oxycodone, Rapid Release (By mouth) (Citizen [place]) Polyethylene Glycol 3350 (By mouth) (Citizen [place])Laxative, Stool Softeners (By mouth) (Citizen [place])documented in this encounter Medications at Time of [...] evening. diaper,brief,adult,disposable (DEPEND UNDERWEAR FOR WOMEN XL) [facility] 04/09/19 -- Bag: (36 each) famotidine (PEPCID) [...] of simvastatin, she will switch to atorvastatin. SURFACER documented in this encounter Nursing Notes Terrie Wilson R.N. - 10/24/2021 12:40 PM CST Shift Goals: Discharge to home with son and [id number] Identify possible barriers to meeting goals/advancing plan of care: None End of Shift Summary: Vital signs stable. PIVs removed. Pain tolerable. After visit summary gone over with patient and [id number]. All questions answered. 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 Patient escorted out by wheelchair and discharged home. documented in this encounter OR Notes Op Note - Mark Mcneil M.D., M.S. - 10/22/2021 1:59 PM CST Date of Surgery: 10/22/2021 Procedure(s): Endovascular abdominal aortic aneurysm repair with [place] endoprosthesis. Ultrasound-guided bilateral common femoral artery access. IR IMAGING. Left common femoral endarterectomy with bovine pericardial patch angioplasty Surgeon(s) and Role: * Mark Mcneil M.D., M.S. - Primary * Tai Colunga M.B.B.S. - Graduate School Dean Child Welfare Counselor(s): Anesthesia Type: General Pre-Operative Diagnosis: Aneurysm Abdominal [...] Concomitant embolization: None Device comments: Main body [id number] Right limb [id number] Complications: Any complications/Endoleak: Non-endoleak complication and endoleak [...] was established, we upsized to a 5- Vietnamese sheath using a Seldinger technique. Two Perclose devices were then deployed in a preclose technique for later arterial closure. We then upsized to 8-Vietnamese sheaths. A Lunderquist wire was advanced into [...] before completion and flow was restored with mormon of Doppler signal in the foot. Protamine [...] Implants: Implant Name LRB Site No. Used Wrapper Sizer Mfr No. Serial No. Status Type GRFT EXC AAA [place] BDY [id number] - [id number] - [id number] N/A 1 [place] [id number] Implanted Vascular Graft GRFT EXC AAA EXT 12X12 - [id number] - [id number] N/A 1 [place] [id number] Implanted Vascular Graft CLP HRZN TI 6 CLP MD MADDISON - [id number] N/A 1 [employer] [id number] Implanted Hardware e.g. pins/screws/rods CLP LGC LGT TI SM - [id number] N/A 1 [employer] [id number] Implanted Hardware e.g. pins/screws/rods CLP HRZN TI 6 CLP MD MADDISON - [id number] N/A 2 [employer] [id number] Implanted Hardware e.g. pins/screws/rods GRFT VSC BOV 0.8X8 - [id number] N/A 1 [employer] [id number] Implanted Mesh or Patch Intra-op Medications: Intra-op [...] 250 mL infusion 0 mcg/kg/min intravenous [facility] 10/22/2021 1625 phenylephrine 80 mcg/mL in NaCl 0.9% 250 mL infusion 0.3 mcg/kg/min intravenous [facility] 10/22/2021 1609 phenylephrine 80 mcg/mL in NaCl 0.9% 250 mL infusion 0 mcg/kg/min intravenous [facility]pped [facility] 10/22/2021 1530 phenylephrine 80 mcg/mL in NaCl 0.9% 250 mL infusion 0.3 mcg/kg/min intravenous Rate/Dose Change [facility] 10/22/2021 1511 phenylephrine 80 [...] Units topical Given Dm Colunga M.D., M.S. SURFACER Brief Op Note - Tai Colunga M.B.B.S. - 10/22/2021 1:59 PM CST Pre-op Diagnosis Aneurysm Abdominal Aortic Without Rupture (HCC) Post-op Diagnosis Aneurysm Abdominal Aortic Without Rupture (HCC) Procedure EVAR for infrarenal AAA Left femoral endarterectomy with patch angioplasty Valdez BlairSShital SURFACER documented in this encounter Miscellaneous Notes Hospital [...] monitored primary care provider for ongoing management. SURFACER documented in this encounter Plan of Treatment Upcoming Encounters Date Type Specialty Care Team Description 04/22/2022 Clinical Admitting/Central Communication Scheduling 04/26/2022 Appointment Radiology Mark Mcneil M.D., M.S. [address] [place] [phone] 04/26/2022 Office Visit Otorhinolaryngology Roxanne Lanza APRN, C.N.P. [address] [place] [address] [phone] 04/28/2022 Appointment Radiation Oncology Ursula Aguirre M.D. [address] [place] [phone] documented as of this encounter Procedures Procedure Name Priority Date/Time Associated Comments Diagnosis ECG Routine 10/24/2021 11:08 Results for AM FLAT SURFACER this procedure are in the results section. ADULT OXYGEN THERAPY Routine 10/23/2021 8:01 AM FLAT SURFACER CBC WITHOUT Routine 10/23/2021 4:53 Results for DIFFERENTIAL, B AM FLAT SURFACER this procedu re are in the results section. BASIC METABOLIC Routine 10/23/2021 4:53 Results f or PANEL, S/P AM FLAT SURFACER this procedure are in the results section. TROPONIN T, 2H/6H, Timed 10/22/2021 10:58 Resul ts for 5TH GEN, P PM FLAT SURFACER this procedure are in the results section. TROPONIN T, BASELINE, STAT 10/22/2021 8:51 Res ults for 5TH GEN, P PM FLAT SURFACER this procedure are in the results section. ECG STAT 10/22/2021 8:43 Results for PM FLAT SURFACER this procedure are in the results section. ADULT OXYGEN THERAPY Routine 10/22/2021 8:25 PM FLAT SURFACER ADULT OXYGEN THERAPY Routine 10/22/2021 8:25 PM FLAT SURFACER ADULT OXYGEN THERAPY Routine 10/22/2021 8:25 PM FLAT SURFACER GLUCOSE POCT, B Routine 10/22/2021 6:16 Results f or PM FLAT SURFACER this procedure are in the results section. IR IMAGING RAD - Routine 10/22/2021 5:49 Aneurysm Results for (most inpatients PM FLAT SURFACER Abdominal Aortic this pr ocedure and all Without Rupture are in the outpatients) ([facility]) results section. IR ABDOMEN AORTA RAD - Routine 10/22/2021 5:49 Aneurysm Results for STENT GRAFT (most inpatients PM FLAT SURFACER Abdominal Aortic this pr ocedure and all Without Rupture are in the outpatients) ([facility]) results section. IR FEMORAL ARTERY RAD - Routine 10/22/2021 5:49 Aneurysm Result s for ENDARTERECTOMY (most inpatients PM FLAT SURFACER Abdominal Aortic this procedure and all Without Rupture are in the outpatients) ([facility]) results section. ACT, POCT, B Routine 10/22/2021 3:40 Results for PM FLAT SURFACER this procedure are in the results section. GLUCOSE POCT, B Routine 10/22/2021 3:39 Results f or PM FLAT SURFACER this procedure are in the results section. ACT, POCT, B Routine 10/22/2021 3:13 Results for PM FLAT SURFACER this procedure are in the results section. ACT, POCT, B Routine 10/22/2021 2:47 Results for PM FLAT SURFACER this procedure are in the results section. SODIUM, B STAT 10/22/2021 1:43 Results for PM FLAT SURFACER this procedure are in the results section. ABG W/COOX STAT 10/22/2021 1:43 Results for PM FLAT SURFACER this procedure are in the results section. POTASSIUM, B STAT 10/22/2021 1:43 Results for PM FLAT SURFACER this procedure are in the results section. GLUCOSE, WHOLE BLOOD STAT 10/22/2021 1:43 Resu lts for PM FLAT SURFACER this procedure are in the results section. CALCIUM, IONIZED, S/B STAT 10/22/2021 1:43 Res ults for PM FLAT SURFACER this procedure are in the results section. ACT, POCT, B Routine 10/22/2021 1:41 Results for PM FLAT SURFACER this procedure are in the results section. ADULT OXYGEN THERAPY Routine 10/22/2021 12:12 PM FLAT SURFACER GLUCOSE POCT, B Routine 10/22/2021 11:10 Results for AM FLAT SURFACER this procedure are in the results section. documented in this encounter Results ECG 12 Lead (10/24/2021 11:08 AM FLAT SURFACER) P athologist Signature Ventricular Rate 94 BPM MUSE ECG/Min FL Interval 162 ms MUSE QRSD Interval 78 ms MUSE QT Interval 360 ms MUSE QTC Interval 450 ms MUSE P [place] 15 degrees MUSE R [place] -1 degrees MUSE T Wave [place] 46 degrees MUSE Specimen Anatomical Collection Method Collection Time Receive d Time (Source) Location / / Volume Laterality 10/24/2021 11:08 10/24/2021 AM FLAT SURFACER 11:27 AM FLAT SURFACER Impressions MUSE - 10/24/2021 11:27 AM FLAT SURFACER Normal sinus rhythm Nonspecific ST abnormality When [...] (ABNORMAL) Basic Metabolic Panel (10/23/2021 4:53 AM FLAT SURFACER) P athologist Signature Potassium, S 4.1 3.6 - 5.2 10/23/2021 DTL mmol/L 6:08 AM FLAT SURFACER Sodium, S 137 135 - 145 10/23/2021 DTL mmol/L 6:08 AM FLAT SURFACER Chloride, S 102 98 - 107 10/23/2021 DTL mmol/L 6:08 AM FLAT SURFACER Bicarbonate, S 24 22 - 29 10/23/2021 DTL mmol/L 6:08 AM FLAT SURFACER Anion Gap 11 7 - 15 10/23/2021 DTL 6:08 AM FLAT SURFACER BUN (Blood 15 6 - 21 10/23/2021 DTL Urea mg/dL 6:08 AM FLAT SURFACER Nitrogen), S Creatinine, S 1.08 (H) 0.59 - 10/23/2021 DTL 1.04 mg/dL 6:08 AM FLAT SURFACER eGFR-Non 54 (L) >=60 10/23/2021 DTL Black/ mL/min/BSA 6:08 AM FLAT SURFACER [place] Comment: ----ADDITIONAL INFORMATION---- Estimated GFR calculated using the 2009 CKD_EPI creatinine equation. eGFR-Black/ 62 >=60 mL/min/BSA 2021 6:08 AM FLAT SURFACER DTL Comment: ----ADDITIONAL INFORMATION---- Estimated GFR calculated using the 2009 CKD_EPI creatinine equation. Calcium, Total, S 8.1 (L) 8.8 - 10.2 mg/dL 10/23/2021 6:08 AM FLAT SURFACER DTL Glucose, S 143 (H) 70 - 140 mg/dL 10/23/2021 6:08 AM FLAT SURFACER D TL Specimen Anatomical Collection Method Collection Time Receive d Time (Source) Location / / Volume Laterality Blood (Blood, 10/23/2021 4:53 AM 10/24/19 5:50 Venous) FLAT SURFACER AM FLAT SURFACER Tai Chiu LAB BLOOD ADD-ON Performing Organization Address City/State/ZIP Code Phon e Number [facility] - [address] [place], [place] [address] [facility] [place] [address] [facility] [place] [address] (ABNORMAL) CBC without Differential (10/23/2021 4:53 AM FLAT SURFACER) [facility] Method Time Signature Hemoglobin 9.3 (L) 11.6 - 10/23/2021 DTL 15.0 g/dL 5:40 AM FLAT SURFACER Hematocrit 28.5 (L) 35.5 - 10/23/2021 DTL 44.9 % 5:40 AM FLAT SURFACER Erythrocytes 3.26 (L) 3.92 - 10/23/2021 DTL 5.13 5:40 AM FLAT SURFACER x10(12)/L MCV 87.4 78.2 - 10/23/2021 DTL 97.9 fL 5:40 AM FLAT SURFACER RBC Distrib Width 15.0 12.2 - 10/23/2021 DTL 16.1 % 5:40 AM FLAT SURFACER Platelet Count 202 157 - 371 10/23/2021 DTL x10(9)/L 5:40 AM FLAT SURFACER Leukocytes 7.3 3.4 - 9.6 10/23/2021 DTL x10(9)/L 5:40 AM FLAT SURFACER Specimen Anatomical Collection Method Collection Time Receive d Time (Source) Location / / Volume Laterality Blood (Blood, 10/23/2021 4:53 AM 10/24/19 5:33 Venous) FLAT SURFACER AM FLAT SURFACER Tai Chiu LAB BLOOD ADD-ON Performing Organization Address City/State/ZIP Code Phon e Number [facility] - [address] [place] [address] [facility] [place] [address] [address] Troponin T, 2H/6H, 5th Gen (10/22/2021 10:58 PM FLAT SURFACER) [facility] Method Time Signature Troponin T, 2 7 <=10 ng/L 10/22/2021 STMA hr, 5th gen 11:42 PM FLAT SURFACER 2H Delta 0 ng/L 10/22/2021 STMA 11:42 PM FLAT SURFACER 2H Delta Not Changing 10/22/2021 STMA Interp 11:42 PM FLAT SURFACER Troponin T, 6 CANCELED ng/L 10/22/2021 STMA hr, 5th gen 11:42 PM FLAT SURFACER Comment: Result canceled by the ancnatalia y. Specimen Anatomical Collection Method Collection Time Receive d Time (Source) Location / / Volume Laterality Blood (Blood, 10/22/2021 10:58 10/22/2021 Venous) PM FLAT SURFACER 11:12 PM FLAT SURFACER Narrative [facility] - 10/22/2021 11:42 PM FLAT SURFACER Specimen Information: Specimen ID: [id number] Specimen Type: Blood Specimen Collection Start Date: 10/23/19 10:58 PM Specimen Received Date: 10/22/2021 11:12 PM Specimen ID: [id number] Specimen Type: Blood Specimen Collection Start Date: 10/23/19 11:42 PM Specimen Received Date: 10/22/2021 11:42 PM Tai KelloggSShital LAB BLOOD TROPONIN Performing Organization Address City/[facility] Phon e Number [address] Troponin T, Baseline, 5th gen (10/22/2021 8:51 PM FLAT SURFACER) P athologist Signature Troponin T, 7 <=10 ng/L 10/22/2021 [facility] Baseline, 5th 9:26 PM FLAT SURFACER gen Specimen Anatomical Collection Method Collection Time Receive d Time (Source) Location / / Volume Laterality Blood (Blood, 10/22/2021 8:51 PM 10/23/19 9:05 Venous) FLAT SURFACER PM FLAT SURFACER Tai KelloggS. LAB BLOOD TROPONIN Performing Organization Address City/[facility] Phon e Number [facility] - [address] ECG 12 Lead (10/22/2021 8:43 PM FLAT SURFACER) P athologist Signature Ventricular Rate 66 BPM MUSE ECG/Min FL Interval 186 ms MUSE QRSD Interval 82 ms MUSE QT Interval 452 ms MUSE QTC Interval 473 ms MUSE P [place] 41 degrees MUSE R [place] 8 degrees MUSE T Wave [place] 45 degrees MUSE Specimen Anatomical Collection Method Collection Time Receive d Time (Source) Location / / Volume Laterality 10/22/2021 8:43 PM 03/10/202 2 8:51 FLAT SURFACER PM FLAT SURFACER Impressions MUSE - 10/22/2021 8:51 PM FLAT SURFACER Normal sinus rhythm Normal ECG When compared [...] NA (ABNORMAL) Glucose, POCT (10/22/2021 6:16 PM FLAT SURFACER) Analysis Performed At Patho logist Time Signature Glucose, POCT, 197 (H) 70 - 140 10/22/2021 PCLX B mg/dL 6:23 PM FLAT SURFACER Site Capillary 10/22/2021 PCLX 6:23 PM FLAT SURFACER Specimen Anatomical Collection Method Collection Time Receive d Time (Source) Location / / Volume Laterality Blood 10/22/2021 6:16 PM 6:23 FLAT SURFACER PM FLAT SURFACER Unknown Provider LAB POCT ORDERABLES-MANUAL Performing Organization Address City/State/ZIP Code Phon e Number POC [facility] [address] [place] [address] PCLX [facility] [place] [address] [facility] 200 [facility] IR FEMORAL ARTERY ENDARTERECTOMY (10/22/2021 5:49 PM FLAT SURFACER) Anatomical Region Laterality Modality Lower Extremity, Vascular Interventional RST LOS N/A Other Specimen (Source) Anatomical Location Collection Method / Collectio n Time Received Time / Laterality Volume Narrative 10/26/2021 11:34 AM CDT Performed by surgeon - see Op Note for leslie marrero. Mark Mcneil M.D., M.S. IMG IR PROCEDURES IR IMAGING (10/22/2021 5:49 PM FLAT SURFACER) Anatomical Region Laterality Modality N/A Other Specimen (Source) Anatomical Location Collection Method / Collectio n Time Received Time / Laterality Volume Narrative 10/26/2021 11:34 AM CDT Performed by surgeon - see Op Note for leslie marrero. Mark Mcneil M.D., M.S. IMG IR PROCEDURES IR ABDOMEN AORTA STENT GRAFT (10/22/2021 5:49 PM FLAT SURFACER) Anatomical Region Laterality Modality Abdomen, Vascular Interventional RST LOS N/A Other Specimen (Source) Anatomical Location Collection Method / Collectio n Time Received Time / Laterality Volume Narrative 10/26/2021 11:34 AM CDT Performed by surgeon - see Op Note for leslie marrero. Mark Mcneil M.D., M.S. IMG IR PROCEDURES (ABNORMAL) ACT (Activated Clotting Time), POCT (10/22/2021 3:40 PM FLAT SURFACER) athologist Signature Activated 227 (H) 84 - 139 10/22/2021 PCSM Clotting Time, sec 3:45 PM FLAT SURFACER POCT Specimen Anatomical Collection Method Collection Time Receive d Time (Source) Location / / Volume Laterality Blood 10/22/2021 3:40 PM 2 3:45 FLAT SURFACER PM FLAT SURFACER Unknown Provider LAB POCT ORDERABLES - DEVICE Performing Organization Address City/[facility] Phon e Number POC RST [facility] INPATIENT [address] [place], [place] [address] LABS [place]CSM [place], [place] [id number] [place] [address] (ABNORMAL) Glucose, POCT (10/22/2021 3:39 PM FLAT SURFACER) athologist Signature Glucose, POCT, 153 (H) 70 - 140 10/22/2021 PCSM B mg/dL 3:41 PM FLAT SURFACER Site ARTLINE 10/22/2021 PCSM 3:41 PM FLAT SURFACER Specimen Anatomical Collection Method Collection Time Receive d Time (Source) Location / / Volume Laterality Blood 10/22/2021 3:39 PM 2 3:41 FLAT SURFACER PM FLAT SURFACER Unknown Provider LAB POCT ORDERABLES-MANUAL Performing Organization Address City/[facility]/ZIP [facility] Phon e Number POC [facility] INPATIENT [address] [place], [place] [address] [place] [address] [place] [facility] [address] (ABNORMAL) ACT (Activated Clotting Time), POCT (10/22/2021 3:13 PM FLAT SURFACER) athologist Signature Activated 211 (H) 84 - 139 10/22/2021 PCSM Clotting Time, sec 3:17 PM FLAT SURFACER POCT Specimen Anatomical Collection Method Collection Time Receive d Time (Source) Location / / Volume Laterality Blood 10/22/2021 3:13 PM 2 3:17 FLAT SURFACER PM FLAT SURFACER Unknown Provider LAB POCT ORDERABLES - DEVICE Performing Organization Address City/State/ZIP [facility] Phon e Number POC [facility] INPATIENT [address] [place], [place] [address] [place] [address] [place] [facility] [address] (ABNORMAL) ACT (Activated Clotting Time), POCT (10/22/2021 2:47 PM FLAT SURFACER) athologist Signature Activated 239 (H) 84 - 139 10/22/2021 PCSM Clotting Time, sec 2:54 PM FLAT SURFACER POCT Specimen Anatomical Collection Method Collection Time Receive d Time (Source) Location / / Volume Laterality Blood 10/22/2021 2:47 PM 2 2:54 FLAT SURFACER PM FLAT SURFACER Unknown Provider LAB POCT ORDERABLES - DEVICE Performing Organization Address City/[facility] Phon e Number POC [facility] IN[facility]IENT [address] [place], [place] [address] [place] [address] [place] [facility] [address] Glucose, Whole Blood (10/22/2021 1:43 PM FLAT SURFACER) athologist Signature Glucose 125 70 - 140 10/22/2021 1:45 STMA mg/dL PM FLAT SURFACER Specimen Anatomical Collection Method Collection Time Receive d Time (Source) Location / / Volume Laterality Blood (Blood, 10/22/2021 1:43 PM 10/23/19 1:43 Arterial Line) FLAT SURFACER PM FLAT SURFACER Asaf Juarez M.D. LAB BLOOD TROPONIN Performing Organization Address City/[facility]/ZIP [facility] Phon e Number [facility] - [address] [place], [place] [address] [facility] [place] [address] [facility] [place] [address] (ABNORMAL) Potassium, Blood (10/22/2021 1:43 PM FLAT SURFACER) athologist Signature Potassium, B 3.5 (L) 3.6 - 5.2 10/22/2021 STMA mmol/L 1:45 PM FLAT SURFACER Specimen Anatomical Collection Method Collection Time Receive d Time (Source) Location / / Volume Laterality Blood (Blood, 10/22/2021 1:43 PM 10/23/19 1:43 Arterial Line) FLAT SURFACER PM FLAT SURFACER Asaf Juarez M.D. LAB BLOOD NON ADD-ON Performing Organization Address City/State/ZIP Code Phon e Number [facility] - [address] [place] [address] [facility] Sodium, B (10/22/2021 1:43 PM FLAT SURFACER) athologist Signature Sodium, B 139 135 - 145 10/22/2021 1:45 STMA mmol/L PM FLAT SURFACER Specimen Anatomical Collection Method Collection Time Receive d Time (Source) Location / / Volume Laterality Blood (Blood, 10/22/2021 1:43 PM 10/23/19 1:43 Arterial Line) FLAT SURFACER PM FLAT SURFACER Asaf Juarez M.D. LAB BLOOD NON ADD-ON Performing Organization Address City/State/ZIP Code Phon e Number [facility] - [address] [place], [place] [address] [place] [id number] [place] [address] (ABNORMAL) Calcium, Ionized (10/22/2021 1:43 PM FLAT SURFACER) athologist Signature Calcium, 4.52 (L) 4.65 - 10/22/2021 STMA Ionized, B 5.30 mg/dL 1:45 PM FLAT SURFACER Specimen Anatomical Collection Method Collection Time Receive d Time (Source) Location / / Volume Laterality Blood (Blood, 10/22/2021 1:43 PM 10/23/19 1:43 Arterial Line) FLAT SURFACER PM FLAT SURFACER Asaf Juarez M.D. LAB BLOOD NON ADD-ON Performing Organization Address City/State/ZIP Code Phon e Number [facility] - [address] [place], [place] [address] [place] [address] [facility] [address] (ABNORMAL) Blood Gas with Coox, Arterial (10/22/2021 1:43 PM FLAT SURFACER) athologist Signature pO2 227 (H) 83 - 108 10/22/2021 STMA mm Hg 1:45 PM FLAT SURFACER pCO2 43 32 - 45 mm 10/22/2021 STMA Hg 1:45 PM FLAT SURFACER pH 7.38 7.35 - 10/22/2021 STMA 7.45 pH 1:45 PM FLAT SURFACER Base Excess 0 -2 - 3 10/22/2021 STMA mmol/L 1:45 PM FLAT SURFACER HCO3 25 22 - 26 10/22/2021 STMA mmol/L 1:45 PM FLAT SURFACER Hemoglobin, B 10.0 (L) 11.6 - 10/22/2021 STMA 15.0 g/dL 1:45 PM FLAT SURFACER O2Hb 98.4 (H) 94.0 - 10/22/2021 STMA 98.0 % 1:45 PM FLAT SURFACER COHb 1.1 <3.0 % 10/22/2021 STMA 1:45 PM FLAT SURFACER MetHb <1.0 <1.5 % 10/22/2021 STMA 1:45 PM FLAT SURFACER CtO2 14.4 (L) 18.0 - 10/22/2021 STMA 21.0 vol % 1:45 PM FLAT SURFACER Specimen Anatomical Collection Method Collection Time Receive d Time (Source) Location / / Volume Laterality Blood (Blood, 10/22/2021 1:43 PM 10/23/19 22 1:43 Arterial Line) FLAT SURFACER PM FLAT SURFACER Asaf Juarez M.D. LAB BLOOD NON ADD-ON Performing Organization Address City/State/ZIP Code Phon e Number [facility] - [address] [place], [place] [address] [place] [address] [facility] [address] ACT (Activated Clotting Time), POCT (10/22/2021 1:41 PM FLAT SURFACER) athologist Signature Activated 131 84 - 139 10/22/2021 PCSM Clotting Time, sec 1:45 PM FLAT SURFACER POCT Specimen Anatomical Collection Method Collection Time Receive d Time (Source) Location / / Volume Laterality Blood 10/22/2021 1:41 PM 2 1:45 FLAT SURFACER PM FLAT SURFACER Unknown Provider LAB POCT ORDERABLES - DEVICE Performing Organization Address City/State/ZIP Code Phon e Number POC [facility] INPATIENT [address] [place], [place] [address] [place] [address] [facility] [address] [place] [address] Glucose, POCT (10/22/2021 11:10 AM FLAT SURFACER) Analysis Performed At Patho logist Time Signature Glucose, POCT, 131 70 - 140 10/22/2021 PCLX B mg/dL 11:21 AM FLAT SURFACER Site Capillary 10/22/2021 PCLX 11:21 AM FLAT SURFACER Specimen Anatomical Collection Method Collection Time Receive d Time (Source) Location / / Volume Laterality Blood 10/22/2021 11:10 10/22/2021 AM FLAT SURFACER 11:21 AM FLAT SURFACER Unknown Provider LAB POCT ORDERABLES-MANUAL Performing Organization Address City/[facility]/ZIP [facility] Phon e Number POC [facility] [address] [place] [address] [place] [address] [facility] [address] [facility] documented in this encounter Visit Diagnoses [...] tablet 1,000 mg Given 10/24/2021 9:03 AM FLAT SURFACER 1,000 mg (TYLENOL) 1,000 mg, oral, 4 times daily, First dose on Meredith 10/22/21 at 2145 Given 10/23/2021 8:50 PM FLAT SURFACER 1,000 mg Given 10/23/2021 5:27 PM FLAT SURFACER 1,000 mg albuterol nebulizer solution 2.5 mg 2.5 mg, nebulization, Every 6 hours PRN, wheezing, shortness of breath, Starting on Meredith 10/22/21 at 2138 albuterol nebulizer solution 2.5 mg Given 10/24/2021 9:05 AM FLAT SURFACER 2.5 mg 2.5 mg, nebulization, 2 times daily, First dose on Tue10/23/21 at 0900 Given 10/23/2021 9:06 PM FLAT SURFACER 2.5 mg Given 10/23/2021 9:34 AM FLAT SURFACER 2.5 mg aspirin chewable tablet 81 mg Given 10/23/2021 5:28 PM FLAT SURFACER 81 mg 81 mg, oral, Every evening, First dose on Tue10/22/21 at 2130 Given 10/22/2021 10:06 PM FLAT SURFACER 81 mg atorvastatin tablet 20 mg (LIPITOR) Given 10/23/2021 8:51 PM FLAT SURFACER 20 mg 20 mg, oral, Daily at bedtime, First dose on Tue10/22/21 at 2145 Given 10/22/2021 10:06 PM FLAT SURFACER 20 mg bisacodyL suppository 10 mg (DULCOLAX) 10 mg, rectal, Daily PRN, constipation, Starting on Tue10/22/21 at 202, Ordered sequence of administration: polyethylene glycol, then bisacodyl until BM achieved. electrolyte-A solution Continued from OR 10/22/2021 5:55 PM FLAT SURFACER 20 mL/hr 20 mL/hr (PLASMA-LYTE A) 20 mL/hr, intravenous, Continuous, Starting on Meredith 10/22/21 at 1715, PACU & Post-Op electrolyte-A solution Continued from OR 10/22/2021 5:55 PM FLAT SURFACER 20 mL/hr 20 mL/hr (PLASMA-LYTE A) 20 mL/hr, intravenous, Continuous, Starting on Meredith 10/22/21 at 1715, PACU & Post-Op famotidine tablet 20 mg (PEPCID) Given 10/23/2021 8:50 PM FLAT SURFACER 20 mg 20 mg, oral, Daily at bedtime, First dose on Tue10/22/21 at 2145, Drug Monitoring Program: Pharmacist to adjust medication dosing based on indication and drug clearance factors. Given 10/22/2021 10:06 PM FLAT SURFACER 20 mg fentaNYL injection 25 mcg (SUBLIMAZE) Given 10/22/2021 7:18 PM FLAT SURFACER 25 mcg 25 mcg, intravenous, Every 2 min PRN, moderate pain or score 4-6 of 10, severe pain or score 7-10 of 10, Starting on Meredith 10/22/21 at 1210, PACU (only), Up to maximum total dose of 200 mcg Given 10/22/2021 6:14 PM FLAT SURFACER 25 mcg fentaNYL injection 25 mcg (SUBLIMAZE) Given 10/22/2021 9:01 PM FLAT SURFACER 25 mcg 25 mcg, intravenous, Every 1 [...] interchanged for Budesonide/Formoterol Given 10/23/2021 9:48 AM FLAT SURFACER 1 puff haloperidol lactate injection 1 mg [...] promethazine) heparin (porcine) Given 10/24/2021 5:27 AM FLAT SURFACER 5,000 Units Left Lower Abdomen injection 5,000 Units 5,000 Units, subcutaneous, Every 8 hours scheduled, First dose on Tue10/23/21 at 0600 Given 10/23/2021 9:20 PM FLAT SURFACER 5,000 Units Left Lower Abdomen Given 10/23/2021 2:43 PM FLAT SURFACER 5,000 Units Left Upper Arm hydroCHLOROthiazide tablet 25 mg (HYDROD IURIL) Given 10/23/2021 5:28 PM FLAT SURFACER 25 mg 25 mg, oral, Every evening, First dose on Tue10/22/21 at 2145 Given 10/22/2021 10:06 PM FLAT SURFACER 25 mg HYDROmorphone (PF) injection 0.4 mg [...] insulin aspart U-100 Given 10/22/2021 6:57 PM FLAT SURFACER 4 Units Left Lower Abdomen injection 0-8 [...] 0.5-2.5 mg/3 mL Given 10/22/2021 11:04 AM FLAT SURFACER 3 mL nebulizer solution 3 mL (DUONEB) 3 mL, nebulization, 4 times daily (RT), First dose on Tue10/22/21 at 1500, Pre-Op lactated Ringer's bolus 500 mL New Bag 10/23/2021 5:12 AM FLAT SURFACER 500 mL 500 mL/hr 500 mL, intravenous, at 500 mL/hr, Administer over 1 Hours, Once, On Tue10/23/21 at 0515, For 1 dose levothyroxine tablet 50 mcg (SYNTHROID, Given 10/23/2021 8:50 PM FLAT SURFACER 50 mcg LEVOTHROID) 50 mcg, oral, Daily at bedtime, First dose on Tue10/22/21 at 2145 Given 10/22/2021 10:06 PM FLAT SURFACER 50 mcg losartan tablet 100 mg (COZAAR) Given 10/23/2021 5:28 PM FLAT SURFACER 100 mg 100 mg, oral, Every evening, First dose on Meredith 10/22/21 at 2145 Given 10/22/2021 10:06 PM FLAT SURFACER 100 mg naloxone injection 0.2 mg (NARCAN) 0.2 mg, intravenous, As needed, respirat ory depression, Starting on Meredith 10/22/21 at 2024, For respiratory rate less than 8 b reaths per minute or RASS score of -3, -4, -5. Apply oxygen to keep oxygen saturati ons greater than 90% and notify service. ondansetron (PF) injection 4 mg (ZOFRAN) Given 10/22/2021 6:27 PM FLAT SURFACER 4 mg 4 mg, intravenous, Every 6 hours PRN, nausea, vomiting, (If patient has not received in the previous 6 hours), Starting on Meredith 10/22/21 at 1211, For 48 hours, PACU (only), Administer first. If nausea and vomiting persists, proceed with haloperidol. (order of antiemetic administration - ondansetron then haloperidol then granisetron) ondansetron (PF) injection 4 mg (ZOFRAN) Given 10/23/2021 9:11 AM FLAT SURFACER 4 mg 4 mg, intravenous, Every 6 hours PRN, nausea, vomiting, Starting on Meredith 10/22/21 at 2024, For 48 hours, Reassess for nausea or vomiting after at least 10 minutes. If nausea or vomiting persists administer next ordered antiemetic medications (order for antiemetic medication administration ondansetron then droperidol then promethazine). Given 10/22/2021 10:27 PM FLAT SURFACER 4 mg oxyCODONE IR tablet 10 mg [...] 5 mg (ROXICODONE) Given 10/23/2021 10:40 PM FLAT SURFACER 5 mg 5 mg, oral, Every 4 hours PRN, moderate pain or score 4-6 of 10, Starting on Meredith 10/22/21 at 2024, Administer if pain is unrelieved by acetaminophen. May repeat dose once after 1 hour for persistent pain not to exceed 10 mg in 4 hours. Begin oral narcotics ONLY when tolerating oral diet. Given 10/23/2021 10:00 AM FLAT SURFACER 5 mg polyethylene glycol powder packet 1 pack et (MIRALAX) 1 packet, oral, Daily PRN, constipation, Starting on Meredith 10/22/21 at 2024, Ordered sequence of administration: polyethylene glycol, then bisacodyl until BM achieved. Avoid mixing with starch-based thickened liquids. promethazine injection 6.25 mg (PHENERGA N) Given 10/23/2021 9:44 PM FLAT SURFACER 6.25 mg 6.25 mg, intravenous, Every 6 [...] mg per Given 10/24/2021 9:03 A M FLAT SURFACER 1 tablet tablet 1 tablet (SENOKOT-S) 1 tablet, oral, 2 times daily, First dose on Tue10/23/21 at 0900, Initiate ONLY when taking oral food and fluids. Do not give if patient has diarrhea or ostomy. Given 10/23/2021 8:50 PM FLAT SURFACER 1 tablet vancomycin in NaCl 0.9% IVPB New Bag 10/22/2021 11:13 AM FLAT SURFACER 1,250 mg 167 mL/hr 1,250 mg 1,250 [...] Recently Administered Medications Times are shown in FLAT SURFACER. Scheduled Medication Order 10/22/2021 10/23/2021 10/24/2021 acetaminophen tablet 1,000 mg (TYLENOL) 2206 (Given - Provider: Angie Finley R.N.) 0949 (Given - Provider: Lester Hernandez R.N. - Comment: Per pt request)1218 (Given - Provider: Lesetr Hernandez R.N.)1727 (Given - Provider: Lester Hernandez [...] to surgic al incision, [facility] to [facility] medication dosing based on indication [...] 2100 (Given - Pr ovider: Angie Finley R.NhSital) 25 mcg, intravenous, Every 1 hour PRN, [...] R.N.) 0-8 Units, subcutaneous, Every 2 hour FL N, high blood sugar, Nurse to determine and administer dose, Starting on Emredith 10/22/21 at 1210, For 2 doses, PACU [...]
--- OUTSIDE RECORDS SUMMARY | 2022-04-05 09:19 | XMS_ITS | Encounter Summary ---
:1955 Author Organization [facility] Address [address] [place] [address] Care Team Providers Name Role Phone Unavailable [...] Expiration Date Visits Requ ested Visits Authorized [id number] 1 1 Encounter Details Date Type Department Care Team Description 10/22/2021 Anesthesia Event RST ROMB MAIN OR Aman Rasmussen M.D. [address] [place] [phone] [address] [facility] Khurram Brink, HOTEL RESERVATIONIST, METEOROLOGICAL AIDE [address] [place] [phone] [place] [phone] Anesthesia Record Procedure Summary Procedure Name Responsible Anesthesia Start Anesthesia Stop Anesthesiologist Time Time Endovascular abdominal Aman Rasmussen M.D. 10/22/21 1246 0 10/22/21 1803 aortic aneurysm repair with [place] endoprosthesis. Ultrasound-guided bilateral common femoral artery access. [...] h andoff to the receiving staff during [facility] we 1. Identified the patient [...] 10/24 1213 by Placement Time: 1112; Roxanne Irivng Katelyn E, Catheter Size: 20 G; R.N. Orientation: Right; Location: Antecubital; Site Prep: Chlorhexidine (Preferred); Technique: Anatomical landmarks (vcb); Inserted by: mmb; Insertion Attempts: 1; Removal Date: 10/24/21; Removal Time: 1213; Removal Reason: Patient discharged ETT Placement Date: 10/22/21; 10/22/21 1301 by 10/22 1746 by Placement Time: 1301 Stephie Ramirez Ringhofer, Stephen (created via procedure HOTEL RESERVATIONIST, METEOROLOGICAL AIDE, DNAP N, HOTEL RESERVATIONIST, METEOROLOGICAL AIDE documentation); Mask Ventilation: Oral/Nasal airway needed (edentulous); [...] tolerated procedure well with no immediate complications. [facility] ; Removal Date: 10/22/21; Removal Time: 1746 Arterial Line Placement Date: 10/22/21; 10/22/21 1307 by 10/23 0900 by Placemnt Time: 1307 Stephie Ramirez Domingo, And rea K, (created via procedure HOTEL RESERVATIONIST, METEOROLOGICAL AIDE, DNAP R.N. documentation); Size: 20 G; Orientation: Left; Location: Radial; Site Prep: Chlorhexidine (Preferred); Technique: Anatomical landmarks; Insertion Attempts: 1; Securement: Securement dressing, Securement device; Removal Date: 10/23/21; Removal Time: 0900; Removal Reason: Per order Peripheral IV Placement Date: 10/22/21; 10/22/21 1308 by 10/24 1212 by Placement Time: 1308; Stephie Ramirez Reicks, Ka telyn E, Catheter Size: 16 G; HOTEL RESERVATIONIST, METEOROLOGICAL AIDE, DNAP R.N. Orientation: Right; Location: Forearm; Removal [...] do you attend zoroastrianism or Never 2018 sabianism services? Do you [...] Procedure Summary Date: 10/22/21 Room / Location: [address] 01 [facility] in [place], [place] Anesthesia Start: 1246 Anesthesia Stop: 1803 [...] Post Op nausea/vomiting: none Hydration status: euvolemic MIXER Anesthesia Procedure Notes - Stephie Ramirez APRN, [...] yes Complications - arterial: none ATTESTATION STATEMENT MIXER Anesthesia Procedure Notes - Asaf Juarez M.D. - 10/22/2021 1:03 PM CD MIXER Associated Order(s): Airway Airway Date/Time: 10/22/2021 1:01 [...] tolerated procedure well with no immediate complications. [facility] PRE PROCEDURE DETAILS: Pre evaluation for airway management: procedure Urgency: elective Preop assessment of probable difficulty: anticipated / known difficult airway Preoxygenation: bag valve mask SEDATION / ANESTHESIA Anesthesia method: anesthesia POST PROCEDURE DETAILS: Procedure outcome: successful Airway event: no complications ATTESTATION STATEMENT MIXER Anesthesia Preprocedure Evaluation - Asaf Juarez M.D. - 10/22/2021 12:06 PM CST Preprocedure Anesthesia & H&P Assessment Procedure Summary Date/Time: 10/22/21 1207 Procedures: IR ABDOMEN AORTA STENT GRAFT, Proceed as indicated. (N/A ) IR IMAGING. (N/A ) Diagnosis: Aneurysm Abdominal Aortic Without Rupture (HCC) [I71.4] Pre-op diagnosis: Aneurysm Abdominal Aortic Without Rupture (HCC) [I71.4]. Location: [place] [address] [address] / [facility] in [place], [place] Providers: Mark Eastman M.D., M.S. Pertinent [...] with patient /legal guardian or through an cordwainer. Risks/Benefits/Alternatives of Blood transfusion discussed with patient / legal guardian, including an opportunity to ask questions and/or decline some or all transfusion therapies. The patient / legalguardian consented to the use of all blood products, as deemed medically necessary Approval to Proceed: approved for anesthesia MIXER documented in this encounter Plan of Treatment Upcoming Encounters Date Type Specialty Care Team Description 04/22/2022 Clinical Admitting/Central Communication Scheduling 04/26/2022 Appointment Radiology Mark Eastman M.D., M.S. [address] [place] [phone] 04/26/2022 Office Visit Otorhinolaryngology Roxanne Lanza APRN, C.N.P. [address] [place] [phone] 04/28/2022 Appointment Radiation Oncology Ursula Aguirre M.D. [address] [place] [phone] documented as of this encounter Procedures Procedure Name Priority Date/Time Associated Comments Diagnosis LDA ANE ARTERIAL LINE Routine 10/22/2021 1:07 PM Results for this INSERTION CD MIXER procedure are i n the results section. OK ARTL CATH/CNULA Routine 10/22/2021 1:07 PM Res ults for this MONITOR PERC CD MIXER procedure are i n the results section. LDA ANE ENDOTRACHEAL Routine 10/22/2021 1:01 PM R esults for this AIRWAY CD MIXER procedure are i n the results section. documented in this encounter Results OK ARTL CATH/CNULA MONITOR PERC, LDA ANE ARTERIAL LINE INSERTION (10/22/2021 1:07 PM CD MIXER) Narrative Stephie Ramirez APRN, CRNA, DNAP - 10/22 1:07 PM CD MIXER Stephie Ramirez APRN, CRNA, DNAP ? 10/22/2021 [...] LDA ANE ENDOTRACHEAL AIRWAY (10/22/2021 1:01 PM CD MIXER) Narrative Asaf Juarez M.D. - 10/22/2021 1: 01 PM CD MIXER Asaf Juarez M.D. ? 10/22/2021 ??1:28 PM Airway Date/Time: 10/22/2021 1:01 PM Performed by: Stephie Ramirez APRN, METEOROLOGICAL AIDE , DNAP Authorized by: Asaf Juarez M.D. [...] procedure well with no immedia te complications. [facility] ?? PRE PROCEDURE DETAILS: Pre evaluation for [...] Site acetaminophen injection Given 10/22/2021 4:59 PM CD MIXER 1,000 mg intravenous, Administer over 15 Minutes, As needed, Starting on Meredith 10/22/21 at 1659, Anesthesia Intra-op dexAMETHasone injection (DECADRON) Given 10/22/2021 1:19 PM CD MIXER 4 mg intravenous, As needed, Starting on Meredith 10/22/21 at 1319, Anesthesia Intra-op electrolyte-A solution (PLASMA-LYTE A) New Bag 10/22/2021 4:20 PM CD MIXER intravenous, Continuous Infusion: Per Instructions PRN, Starting on Meredith 10/22/21 at 1255, Anesthesia Intra-op New Bag 10/22/2021 12:55 PM CD MIXER electrolyte-A solution (PLASMA-LYTE A) New Bag 10/22/2021 1:08 PM CD MIXER intravenous, Continuous Infusion: Per Instructions PRN, Starting on Meredith 10/22/21 at 1308, Anesthesia Intra-op fentaNYL injection (SUBLIMAZE) Given 10/22/2021 4:08 PM CD MIXER 50 mcg intravenous, As needed, Starting on Meredith 10/22/21 at 1255, Anesthesia Intra-op Given 10/22/2021 1:02 PM CD MIXER 50 mcg Given 10/22/2021 12:55 PM CD MIXER 50 mcg heparin (porcine) 1,000 unit/mL Given 10/22/2021 3:17 PM CD MIXER 2,0 00 Units injection intravenous, As needed, Starting on Meredith 10/22/21 at 1437, Anesthesia Intra-op Given 10/22/2021 2:37 PM CD MIXER 8,000 Units lidocaine (PF) (cardiac) injection Given 10/22/2021 12:56 PM CD MIXER 80 mg intravenous, As needed, Starting on Meredith 10/22/21 at 1256, Anesthesia Intra-op ondansetron (PF) injection (ZOFRAN) Given 10/22/2021 4:58 PM CD MIXER 4 mg intravenous, As needed, Starting on Meredith 10/22/21 at 1658, Anesthesia Intra-op phenylephrine 80 mcg/mL Restarted 10/22/2021 4:25 PM 0.3 mcg/kg/ min 19.418 mL/hr in NaCl 0.9% 250 mL CD MIXER infusion 0-1 mcg/kg/min ? 86.3 kg Dosing weight (0-64.725 mL/hr, rounded to 0-64.73 mL/hr), intravenous, Continuous, Starting on Meredith 10/22/21 at 1315, Intra-Op, 20 mg in 250 mL, Patient Type: Standard, initiate at: Other, Rate: Per Provider, Titrate at: Other, Titrate: Per Provider, Goal: Other, Goal: Per Provider Rate/Dose Change 10/22/2021 3:30 PM CD MIXER 0.3 mcg/kg/min 19.418 mL/hr Rate/Dose Change 10/22/2021 3:11 PM CD MIXER 0.2 mcg/kg/min 12.945 mL/hr phenylephrine injection Given 10/22/2021 4:26 PM CD MIXER 200 mcg intravenous, As needed, Starting on Meredith 10/22/21 at 1310, Anesthesia Intra-op Given 10/22/2021 1:21 PM CD MIXER 100 mcg Given 10/22/2021 1:17 PM CD MIXER 100 mcg propofoL injection (DIPRIVAN) Given 10/22/2021 1:02 PM CD MIXER 70 mg intravenous, As needed, Starting on Meredith 10/22/21 at 1256, Anesthesia Intra-op Given 10/22/2021 12:59 PM CD MIXER 40 mg Given 10/22/2021 12:56 PM CD MIXER 40 mg protamine injection Given 10/22/2021 4:46 PM CD MIXER 30 mg intravenous, As needed, Starting on Meredith 10/22/21 at 1646, Anesthesia Intra-op rocuronium injection (ZEMURON) Given 10/22/2021 3:52 PM CD MIXER 10 mg intravenous, As needed, Starting on Meredith 10/22/21 at 1259, Anesthesia Intra-op Given 10/22/2021 12:59 PM CD MIXER 50 mg documented in this encounter
--- OUTSIDE RECORDS SUMMARY | 2022-04-05 09:19 | XMS_ITS | Encounter Summary ---
:1955 Author Organization [facility] Address [address] [place] [address] Care Team Providers Name Role Phone Unavailable Primary Care Provider Unavailable Reason for Referral MRI/CAT/PET Scan (Routine) - Authorized Specialty Diagnoses / Procedures Referred By Contact Refer red To Contact Radiology Diagnoses Aneurysm Abdominal Aortic Without Rupture (HCC) Mark Eastman [facility] Procedures CT Abdomen Pelvis Angiogram with IV Contrast Kimberley, M.S. [address] [place] [phone] Referral ID Status Reason Start Date Expiration Date Visits V isits Requested Authorized [id number] Authorized 10/23/2021 10/23/2022 1 1 utpatient (Routine) - Authorized Specialty Diagnoses / Procedures Referred By Contact Refer red To Contact Vascular Surgery Mark Eastman [facility] Allyson., M.S. [address] [place] [phone] Referral ID Status Reason Start Date Expiration Date Visits V isits Requested Authorized [id number] Authorized 10/23/2021 10/23/2022 1 1 COOPER Encounter Details Date Type Department Care Team Description 10/23/2021 Clinical Communication Division of Vascular Carlin Harper and Endovascular AMAYA Mendez, C.N.P., Surgery in [facility] [address] [facility] [address] [place] [phone] Social History Tobacco Use Types Packs/Day Years [...] do you attend lutheran or Never 2018 judaism services? Do you [...] Page R.N., C.Lashonda.O.C.N. - 10/23/2021 5:08 PM CAR COOPER Addended by: SHELL PAGE on: 10/23/2021 05:08 PM Modules accepted: Orders COOPER documented in this encounter Plan of Treatment Upcoming Encounters Date Type Specialty Care Team Description 04/22/2022 Clinical Admitting/Central Communication Scheduling 04/26/2022 Appointment Radiology Mark Eastman M.D., M.S. [address] [place] [phone] 04/26/2022 Office Visit Otorhinolaryngology Roxanne Lanza APRN, C.N.P. [address] [place] [phone] 04/28/2022 Appointment Radiation Oncology Ursula Aguirre M.D. [address] [place] [phone] Scheduled Orders Name Type Priority Associated Diagnoses Order S chedule CT Abdomen Pelvis Imaging RAD - Routine (most Aneurysm Abdomin al Expected: Angiogram with IV inpatients and all Aortic Without Contrast outpatients) Rupture (HCC) (Approximate), Expires: 10/23/2022 Scheduled Referrals Name Type Priority Associated Diagnoses Order S [facility] Vascular Surgery Outpatient Referral Routine Expe cted: office visit 01/23/2022 (clinic) (Approximate), Expires: 01/23/2023 documented as of this encounter Visit Diagnoses Diagnosis Aneurysm Abdominal Aortic Without Ruptur e (HCC) - Primary documented in this encounter
--- OUTSIDE RECORDS SUMMARY | 2022-04-05 09:19 | XMS_ITS | Encounter Summary ---
:1955 Author Organization [facility] Address [address] [place] [address] Care Team Providers Name Role Phone Unavailable Primary Care Provider Unavailable Encounter Details Date Type Department Care Team Description 10/19/2021 Admin Visit Department of Family Medicine, [address] [address] [facility] [phone] Social History Tobacco Use Types Packs/Day Years [...] do you attend religious or Never 2018 latter-day services? Do you [...] Radiology Mark Eastman M.D., M.S. [address] [place] [phone] 04/26/2022 Office Visit Otorhinolaryngology Roxanne Lanza APRN, C.N.P. [address] [place] [phone] 04/28/2022 Appointment Radiation Oncology Ursula Aguirre M.D. [address] [place] [phone] documented as of this encounter Visit Diagnoses Not on filedocumented in this encounter Additional Health Concerns Infection Onset Date Last Indicated Resolved Time COVID19 Pending 10/19/2021 10/19/2021 10/20/2021 1:47 AM WARDROBE MANAGER documented as of this encounter
--- OUTSIDE RECORDS SUMMARY | 2022-04-05 09:19 | XMS_ITS | Encounter Summary ---
:1955 Author Organization [facility] Address [address] [place] [address] Care Team Providers Name Role Phone Unavailable Primary Care Provider Unavailable Encounter Details Date Type Department Care Team Description 10/19/2021 Hospital Encounter Department of [facility], Aneurysm Abdominal Laboratory Medicine Mark Frederick M.D., Aort ic Without in [facility] Rupture (HCC) [place] [address] [place] [phone] Social History Tobacco Use Types Packs/Day Years [...] do you attend baptist or Never 2018 jainism services? Do you [...] Appointment Radiology Mark Eastman M.D., M.S. [address] [place] [phone] 04/26/2022 Office Visit Otorhinolaryngology Roxanne Lanza, EMT/DISPATCHER, C.N.P. [address] [place] [phone] 04/28/2022 Appointment Radiation Oncology Ursula Aguirre M.D. [address] [place] [phone] documented as of this encounter Procedures Procedure Name Priority Date/Time Associated Diagnosis Comme nts SARS CORONAVIRUS-2 Routine 10/19/2021 12:57 PM Aneurysm Abdomi nal Results for this RNA, V MANAGER STRATEGIC SOURCING Aortic Without procedure are in Rupture (HCC) the results section. documented in this encounter Results SARS Coronavirus-2 RNA, V Asymptomatic (10/19/2021 12:57 PM MANAGER STRATEGIC SOURCING) [facility] Method Time Signature SARS-CoV-2 Swab, 10/20/2021 MKTO Specimen Nasopharynx 1:47 AM MANAGER STRATEGIC SOURCING Source SARS CoV-2 Undetected Undetected 10/20/2021 MKTO RNA, TMA 1:47 AM MANAGER STRATEGIC SOURCING Comment: SARS-CoV-2 RNA absent. This result does not rule out COVID-19 in the patient, as the sensitivity of the test depends o n the timing of the specimen collection and the quality of the specim en. Result should be correlated with patient's history and clinical presentat ion. ----ADDITIONAL INFORMATION---- This molecular amplification test was pe rformed using the Aptima SARS-CoV-2 assay ([employer] on the [employer] Sys tem under emergency use authorization (EUA) by the U.S. Food and Drug Administ cristian. Fact sheets for this EUA assay can be fo und at the following links: For Healthcare Providers: https://www.fd a.gov/media/949146/download For Patients: https://www.fda.gov/media/ 921013/download Specimen Anatomical Collection Method Collection Time Receive d Time (Source) Location / / Volume Laterality Varies 10/19/2021 12:57 10/19/2021 7:37 (Nasopharynx) PM MANAGER STRATEGIC SOURCING PM MANAGER STRATEGIC SOURCING Mark Eastman M.D., M.S. LAB MICROBIOLOGY - [facility] ORDERABLES Performing Organization Address City/State/[facility] Code Phon e Number [facility]- [address] [place] [address] [place] [address] [address] documented in this encounter Visit Diagnoses Diagnosis Aneurysm Abdominal Aortic Without Ruptur e (HCC) documented in this encounter Additional Health Concerns Infection Onset Date Last Indicated Resolved Time COVID19 Pending 10/19/2021 10/19/2021 10/20/2021 1:47 AM MANAGER STRATEGIC SOURCING documented as of this encounter
--- OUTSIDE RECORDS SUMMARY | 2022-04-05 09:19 | XMS_ITS | Encounter Summary ---
:1955 Author Organization [facility] Address [address] [place] [address] Care Team Providers Name Role Phone Unavailable [...] do you attend yarsani or Never 2018 amish services? Do you [...] Appointment Radiology Mark Eastman M.D., M.S. 200 [place] [phone] 04/26/2022 Office Visit Otorhinolaryngology Roxanne Lanza APRN, C.N.P. 200 [place] [phone] 04/28/2022 Appointment Radiation Oncology Ursula Aguirre M.D. 200 [place] [phone] documented as of this encounter Procedures Procedure Name Priority Date/Time Associated Comments Diagnosis OTORHINOLARYNGOLOGY IMAGE Routine 10/16/2021 11:54 Results for this EXAM AM CIRCUIT RIDER procedure are i n the results section. documented in this encounter Results Direct Laryngoscopy-Otorhinolaryngology Image Exam (10/16/2021 11:54 AM CIRCUIT RIDER) Specimen (Source) Anatomical Collection Method Collection Time Re ceived Time Location / / Volume Laterality 10/16/2021 12:19 PM CIRCUIT RIDER Narrative [facility] - 10/16/2021 11:54 AM CIRCUIT RIDER This order has been created and auto-finalized [...]
--- OUTSIDE RECORDS SUMMARY | 2022-04-05 09:19 | XMS_ITS | Encounter Summary ---
:1955 Author Organization [facility] Address [address] [place] [address] Care Team Providers Name Role Phone Unavailable [...] Expiration Date Visits Requ ested Visits Authorized [id number] 1 1 Encounter Details Date Type Department Care Team Description 10/22/2021 Surgery RST ROMB MAIN OR Mark Mcneil Endovascular abdominal [address] [facility] Kimberley Frederick, M.S. aortic aneurysm repair [place], [place] 200 [facility] with [place] [id number] [place], [place] endoprosthesis. [phone] Ultrasound-guided [phone] (Wo rk) bilateral common femoral artery ac [...] Comments Blood Pressure 163/81 10/22/2021 9:46 AM COUPON COLLECTION CLERK Pulse 89 10/22/2021 9:46 AM COUPON COLLECTION CLERK Temperature 36.8 ??C (98.2 ??F) 10/22/2021 9:46 AM COUPON COLLECTION CLERK Respiratory Rate 24 10/22/2021 9:46 AM COUPON COLLECTION CLERK Oxygen Saturation 100% 10/22/2021 9:46 AM COUPON COLLECTION CLERK Inhaled Oxygen Concentration - - Weight 86.3 kg (190 lb 4.1 oz) 10/22/2021 9:46 AM COUPON COLLECTION CLERK Height 164 cm (5' 4.57) 10/22/2021 9:46 AM COUPON COLLECTION CLERK Body Mass Index 31.08 10/22/2021 9:46 AM COUPON COLLECTION CLERK documented in this encounter Discharge Summaries Sanna Newman P.A.-C. - 10/24/2021 11:59 AM CST DISCHARGE SUMMARY BRIEF OVERVIEW Hospital: [facility] Discharge Provider: Mark Mcneil M.D. Primary Team: [facility] Vascular Surgery - [facility] No primary care provider on file. [...] 10/22/2021 Endovascular abdominal aortic aneurysm repair with [place] endoprosthesis. Ultrasound-guided bilateral common femoral artery access., [...] dismissal, pain medication (examples: oxycodone, Dilaudid, Tramadol, [place], etc.) will be prescribed to you if needed. Duration will be determined on a [id number] basis and will notexceed 2 weeks. Thereafter, [...] contact the vascular scheduling office by calling [phone]. Should you need to contact Dr. Mcneil or his service in the interim, you may do so through his medical receptionist at during normal business hours of 8 to 5 Tuesday through Tuesday (excluding holidays) or, in an emergency situation, through the [facility] track surfacing machine operator at (Service pager: [phone]). Mepilex Border Post-Op Ag 1. You had [...] call Dr. Mcneil's nurse practitioner through the [facility] track surfacing machine operator [phone]. 7. After removing the dressing, keep the groin area clean and dry. None OUTPATIENT FOLLOW UP Scheduled Appointments 10/29/2021 8:30 AM LAB 01 [facility] Laboratory Medicine For appointment details refer [...] were provided to the patient and caregiver(s). ON COLLECTION CLERK documented in this encounter Discharge Instructions AttachmentsThe following attachments cannot be sent through Care Everywhere. Acetaminophen (By mouth) (Angolan)Oxycodone, Rapid Release (By mouth) (Angolan) Polyethylene Glycol 3350 (By mouth) (Angolan)Laxative, Stool Softeners (By mouth) (Angolan)documented in this encounter Medications at Time of [...] evening. diaper,brief,adult,disposable (DEPEND UNDERWEAR FOR WOMEN XL) [facility] 04/09/19 -- Bag: (36 each) famotidine (PEPCID) [...] of simvastatin, she will switch to atorvastatin. ON COLLECTION CLERK documented in this encounter Nursing Notes Terrie Wilson R.N. - 10/24/2021 12:40 PM CST Shift Goals: Discharge to home with son and [id number]-bhi Identify possible barriers to meeting goals/advancing plan of care: None End of Shift Summary: Vital signs stable. PIVs removed. Pain tolerable. After visit summary gone over with patient and [id number]-nnj. All questions answered. Scripts sent to home pharmacy for pickler helper. Patient escorted out by wheelchair and discharged home. documented in this encounter OR Notes Op Note - Mark Mcneil M.D., M.S. - 10/22/2021 1:59 PM CST Date of Surgery: 10/22/2021 Procedure(s): Endovascular abdominal aortic aneurysm repair with [place] endoprosthesis. Ultrasound-guided bilateral common femoral artery access. IR IMAGING. Left common femoral endarterectomy with bovine pericardial patch angioplasty Surgeon(s) and Role: * Mark Mcneil M.D., M.S. - Primary * Tai Colunga M.B.B.S. - Woodwork Teacher Water Project Engineer(s): Anesthesia Type: General Pre-Operative Diagnosis: Aneurysm Abdominal Aortic Without Rupture (HCC) [I71.4]. Endovascular AAA Repair Operative Report: [facility] ENDOVASCULAR AAA REPAIR: Post-Op: Post-op diagnosis: [...] Concomitant embolization: None Device comments: Main body [id number] Right limb [id number] Complications: Any complications/Endoleak: Non-endoleak complication and endoleak [...] was established, we upsized to a 5- Wolof sheath using a Seldinger technique. Two Perclose devices were then deployed in a preclose technique for later arterial closure. We then upsized to 8-Wolof sheaths. A Lunderquist wire was advanced into [...] before completion and flow was restored with anabaptism of Doppler signal in the foot. Protamine [...] Implants: Implant Name LRB Site No. Used Production Consultant Mfr No. Serial No. Status Type GRFT EXC AAA [place] BDY [id number] - [id number] - [id number] N/A 1 [place] [id number] Implanted Vascular Graft GRFT EXC AAA EXT 12X12 - [id number] - [id number] N/A 1 [place] [id number] Implanted Vascular Graft CLP HRZN TI 6 CLP MD MADDIS[place] - [id number] N/A 1 [employer] [id number] Implanted Hardware e.g. pins/screws/rods CLP LGC LGT TI SM - [id number] N/A 1 [employer] [id number] Implanted Hardware e.g. pins/screws/rods CLP HRZN TI 6 CLP [place] - [id number] N/A 2 [employer] [id number] Implanted Hardware e.g. pins/screws/rods GRFT VSC BOV 0.8X8 - [id number] N/A 1 [employer] [id number] Implanted Mesh or Patch Intra-op Medications: Intra-op [...] 250 mL infusion 0 mcg/kg/min intravenous Stopped [facility] 10/22/2021 1625 phenylephrine 80 mcg/mL in NaCl 0.9% 250 mL infusion 0.3 mcg/kg/min intravenous Restarted [facility] 10/22/2021 1609 phenylephrine 80 mcg/mL in NaCl 0.9% 250 mL infusion 0 mcg/kg/min intravenous Stopped [facility], [facility] 10/22/2021 1530 phenylephrine 80 mcg/mL in NaCl 0.9% 250 mL infusion 0.3 mcg/kg/min intravenous Rate/Dose Change [facility], [facility] 10/22/2021 1511 phenylephrine 80 mcg/mL in NaCl 0.9% 250 mL infusion 0.2 mcg/kg/min intravenous Rate[facility] 10/22/2021 1440 phenylephrine 80 mcg/mL in NaCl 0.9% 250 mL infusion 0.4 mcg/kg/min intravenous Rate/Dose Change [facility] 10/22/2021 1432 phenylephrine 80 mcg/mL in NaCl 0.9% 250 mL infusion 0.2 mcg/kg/min intravenous Rate/Dose Change [facility] 10/22/2021 1348 phenylephrine 80 mcg/mL in NaCl 0.9% 250 mL infusion 0.5 mcg/kg/min intravenous Rate/Dose Change [facility] 10/22/2021 1334 phenylephrine 80 mcg/mL [...] Units topical Given Dm Colunga M.D., M.S. ON COLLECTION CLERK Brief Op Note - Tai Colunga M.B.B.S. - 10/22/2021 1:59 PM CST Pre-op Diagnosis Aneurysm Abdominal Aortic Without Rupture (HCC) Post-op Diagnosis Aneurysm Abdominal Aortic Without Rupture (HCC) Procedure EVAR for infrarenal AAA Left femoral endarterectomy with patch angioplasty Vladez BlairSShital ON COLLECTION CLERK documented in this encounter Miscellaneous Notes [...] monitored primary care provider for ongoing management. ON COLLECTION CLERK documented in this encounter Plan of Treatment Upcoming Encounters Date Type Specialty Care Team Description 04/22/2022 Clinical Admitting/Central Communication Scheduling 04/26/2022 Appointment Radiology Mark Mcneil M.D., M.S. [address] [place] [phone] 04/26/2022 Office Visit Otorhinolaryngology Roxanne Lanza APRN, C.N.P. [address] [place] [phone] 04/28/2022 Appointment Radiation Oncology Ursula Aguirre M.D. [address] [place] [phone] documented as of this encounter Procedures Procedure Name Priority Date/Time Associated Comments Diagnosis ECG Routine 10/24/2021 11:08 Results for AM COUPON COLLECTION CLERK this procedure are in the results section. ADULT OXYGEN THERAPY Routine 10/23/2021 8:01 AM COUPON COLLECTION CLERK CBC WITHOUT Routine 10/23/2021 4:53 Results for DIFFERENTIAL, B AM COUPON COLLECTION CLERK this procedu re are in the results section. BASIC METABOLIC Routine 10/23/2021 4:53 Results f or PANEL, S/P AM COUPON COLLECTION CLERK this procedure are in the results section. TROPONIN T, 2H/6H, Timed 10/22/2021 10:58 Resul ts for 5TH GEN, P PM COUPON COLLECTION CLERK this procedure are in the results section. TROPONIN T, BASELINE, STAT 10/22/2021 8:51 Res ults for 5TH GEN, P PM COUPON COLLECTION CLERK this procedure are in the results section. ECG STAT 10/22/2021 8:43 Results for PM COUPON COLLECTION CLERK this procedure are in the results section. ADULT OXYGEN THERAPY Routine 10/22/2021 8:25 PM COUPON COLLECTION CLERK ADULT OXYGEN THERAPY Routine 10/22/2021 8:25 PM COUPON COLLECTION CLERK ADULT OXYGEN THERAPY Routine 10/22/2021 8:25 PM COUPON COLLECTION CLERK GLUCOSE POCT, B Routine 10/22/2021 6:16 Results f or PM COUPON COLLECTION CLERK this procedure are in the results section. IR IMAGING RAD - Routine 10/22/2021 5:49 Aneurysm Results for (most inpatients PM COUPON COLLECTION CLERK Abdominal Aortic this pr ocedure and all Without Rupture are in the outpatients) ([facility]) results section. IR ABDOMEN AORTA RAD - Routine 10/22/2021 5:49 Aneurysm Results for STENT GRAFT (most inpatients PM COUPON COLLECTION CLERK Abdominal Aortic this pr ocedure and all Without Rupture are in the outpatients) ([facility]) results section. IR FEMORAL ARTERY RAD - Routine 10/22/2021 5:49 Aneurysm Result s for ENDARTERECTOMY (most inpatients PM COUPON COLLECTION CLERK Abdominal Aortic this procedure and all Without Rupture are in the outpatients) ([facility]) results section. ACT, POCT, B Routine 10/22/2021 3:40 Results for PM COUPON COLLECTION CLERK this procedure are in the results section. GLUCOSE POCT, B Routine 10/22/2021 3:39 Results f or PM COUPON COLLECTION CLERK this procedure are in the results section. ACT, POCT, B Routine 10/22/2021 3:13 Results for PM COUPON COLLECTION CLERK this procedure are in the results section. ACT, POCT, B Routine 10/22/2021 2:47 Results for PM COUPON COLLECTION CLERK this procedure are in the results section. SODIUM, B STAT 10/22/2021 1:43 Results for PM COUPON COLLECTION CLERK this procedure are in the results section. ABG W/COOX STAT 10/22/2021 1:43 Results for PM COUPON COLLECTION CLERK this procedure are in the results section. POTASSIUM, B STAT 10/22/2021 1:43 Results for PM COUPON COLLECTION CLERK this procedure are in the results section. GLUCOSE, WHOLE BLOOD STAT 10/22/2021 1:43 Resu lts for PM COUPON COLLECTION CLERK this procedure are in the results section. CALCIUM, IONIZED, S/B STAT 10/22/2021 1:43 Res ults for PM COUPON COLLECTION CLERK this procedure are in the results section. ACT, POCT, B Routine 10/22/2021 1:41 Results for PM COUPON COLLECTION CLERK this procedure are in the results section. ADULT OXYGEN THERAPY Routine 10/22/2021 12:12 PM COUPON COLLECTION CLERK GLUCOSE POCT, B Routine 10/22/2021 11:10 Results for AM COUPON COLLECTION CLERK this procedure are in the results section. documented in this encounter Results ECG 12 Lead (10/24/2021 11:08 AM COUPON COLLECTION CLERK) P athologist Signature Ventricular Rate 94 BPM MUSE ECG/Min IN Interval 162 ms MUSE QRSD Interval 78 ms MUSE QT Interval 360 ms MUSE QTC Interval 450 ms MUSE P [place] 15 degrees MUSE R [place] -1 degrees MUSE T Wave [place] 46 degrees MUSE Specimen Anatomical Collection Method Collection Time Receive d Time (Source) Location / / Volume Laterality 10/24/2021 11:08 10/24/2021 AM COUPON COLLECTION CLERK 11:27 AM COUPON COLLECTION CLERK Impressions MUSE - 10/24/2021 11:27 AM COUPON COLLECTION CLERK Normal sinus rhythm Nonspecific ST abnormality [...] (ABNORMAL) Basic Metabolic Panel (10/23/2021 4:53 AM COUPON COLLECTION CLERK) P athologist Signature Potassium, S 4.1 3.6 - 5.2 10/23/2021 DTL mmol/L 6:08 AM COUPON COLLECTION CLERK Sodium, S 137 135 - 145 10/23/2021 DTL mmol/L 6:08 AM COUPON COLLECTION CLERK Chloride, S 102 98 - 107 10/23/2021 DTL mmol/L 6:08 AM COUPON COLLECTION CLERK Bicarbonate, S 24 22 - 29 10/23/2021 DTL mmol/L 6:08 AM COUPON COLLECTION CLERK Anion Gap 11 7 - 15 10/23/2021 DTL 6:08 AM COUPON COLLECTION CLERK BUN (Blood 15 6 - 21 10/23/2021 DTL Urea mg/dL 6:08 AM COUPON COLLECTION CLERK Nitrogen), S Creatinine, S 1.08 (H) 0.59 - 10/23/2021 DTL 1.04 mg/dL 6:08 AM COUPON COLLECTION CLERK eGFR-Non 54 (L) >=60 10/23/2021 DTL Black/ mL/min/BSA 6:08 AM COUPON COLLECTION CLERK [place]alan Comment: ----ADDITIONAL INFORMATION---- Estimated GFR calculated using the 2009 CKD_EPI creatinine equation. eGFR-Black/ 62 >=60 mL/min/BSA 2021 6:08 AM COUPON COLLECTION CLERK DTL Comment: ----ADDITIONAL INFORMATION---- Estimated GFR calculated using the 2009 CKD_EPI creatinine equation. Calcium, Total, S 8.1 (L) 8.8 - 10.2 mg/dL 10/23/2021 6:08 AM COUPON COLLECTION CLERK DTL Glucose, S 143 (H) 70 - 140 mg/dL 10/23/2021 6:08 AM COUPON COLLECTION CLERK D TL Specimen Anatomical Collection Method Collection Time Receive d Time (Source) Location / / Volume Laterality Blood (Blood, 10/23/2021 4:53 AM 10/24/19 5:50 Venous) COUPON COLLECTION CLERK AM COUPON COLLECTION CLERK Tai Chiu LAB BLOOD ADD-ON Performing Organization Address City/State/ZIP Code Phon e Number [facility] - [address] [place], [place] [address] [facility] [place] [address] Laboratories-[facility] [address] (ABNORMAL) CBC without Differential (10/23/2021 4:53 AM COUPON COLLECTION CLERK) Patholo gist Method Time Signature Hemoglobin 9.3 (L) 11.6 - 10/23/2021 DTL 15.0 g/dL 5:40 AM COUPON COLLECTION CLERK Hematocrit 28.5 (L) 35.5 - 10/23/2021 DTL 44.9 % 5:40 AM COUPON COLLECTION CLERK Erythrocytes 3.26 (L) 3.92 - 10/23/2021 DTL 5.13 5:40 AM COUPON COLLECTION CLERK x10(12)/L MCV 87.4 78.2 - 10/23/2021 DTL 97.9 fL 5:40 AM COUPON COLLECTION CLERK RBC Distrib Width 15.0 12.2 - 10/23/2021 DTL 16.1 % 5:40 AM COUPON COLLECTION CLERK Platelet Count 202 157 - 371 10/23/2021 DTL x10(9)/L 5:40 AM COUPON COLLECTION CLERK Leukocytes 7.3 3.4 - 9.6 10/23/2021 DTL x10(9)/L 5:40 AM COUPON COLLECTION CLERK Specimen Anatomical Collection Method Collection Time Receive d Time (Source) Location / / Volume Laterality Blood (Blood, 10/23/2021 4:53 AM 10/24/19 22 5:33 Venous) COUPON COLLECTION CLERK AM COUPON COLLECTION CLERK Tai Chiu LAB BLOOD ADD-ON Performing Organization Address City/State/ZIP Code Phon e Number [facility] - 200 [place], [place] [address] [facility] [place] [address] [facility] [address] [facility] Troponin T, 2H/6H, 5th Gen (10/22/2021 10:58 PM COUPON COLLECTION CLERK) [facility] Method Time Signature Troponin T, 2 7 <=10 ng/L 10/22/2021 [facility] hr, 5th gen 11:42 PM COUPON COLLECTION CLERK 2H Delta 0 ng/L 10/22/2021 [facility] 11:42 PM COUPON COLLECTION CLERK 2H Delta Not Changing 10/22/2021 [facility] Interp 11:42 PM COUPON COLLECTION CLERK Troponin T, 6 CANCELED ng/L 10/22/2021 [facility] hr, 5th gen 11:42 PM COUPON COLLECTION CLERK Comment: Result canceled by the ancnatalia y. Specimen Anatomical Collection Method Collection Time Receive d Time (Source) Location / / Volume Laterality Blood (Blood, 10/22/2021 10:58 10/22/2021 Venous) PM COUPON COLLECTION CLERK 11:12 PM COUPON COLLECTION CLERK Narrative [facility] - [facility] - 10/22/2021 11:42 PM COUPON COLLECTION CLERK Specimen Information: Specimen ID: [id number] Specimen Type: Blood Specimen Collection Start Date: 10/23/19 10:58 PM Specimen Received Date: 10/22/2021 11:12 PM Specimen ID: [id number] Specimen Type: Blood Specimen Collection Start Date: 10/23/19 11:42 PM Specimen Received Date: 10/22/2021 11:42 PM Tai CummingsB.S. LAB BLOOD TROPONIN Performing Organization Address City/[facility]/ZIP [facility] Phon e Number [facility] - [address] [place] [address] Troponin T, Baseline, 5th gen (10/22/2021 8:51 PM COUPON COLLECTION CLERK) athologist Signature Troponin T, 7 <=10 ng/L [facility], 5th 9:26 PM COUPON COLLECTION CLERK gen Specimen Anatomical Collection Method Collection Time Receive d Time (Source) Location / / Volume Laterality Blood (Blood, 10/22/2021 8:51 PM 10/23/19 9:05 Venous) COUPON COLLECTION CLERK PM COUPON COLLECTION CLERK Tai CummingsB.S. LAB BLOOD TROPONIN Performing Organization Address City/[facility]/ZIP [facility] Phon e Number [facility] - [address] ECG 12 Lead (10/22/2021 8:43 PM COUPON COLLECTION CLERK) athologist Signature Ventricular Rate 66 BPM MUSE ECG/Min IN Interval 186 ms MUSE QRSD Interval 82 ms MUSE QT Interval 452 ms MUSE QTC Interval 473 ms MUSE P [place] 41 degrees MUSE R [place] 8 degrees MUSE T Wave [place] 45 degrees MUSE Specimen Anatomical Collection Method Collection Time Receive d Time (Source) Location / / Volume Laterality 10/22/2021 8:43 PM 8:51 COUPON COLLECTION CLERK PM COUPON COLLECTION CLERK Impressions MUSE - 10/22/2021 8:51 PM COUPON COLLECTION CLERK Normal sinus rhythm Normal ECG When [...] NA (ABNORMAL) Glucose, POCT (10/22/2021 6:16 PM COUPON COLLECTION CLERK) [facility] Time Signature Glucose, POCT, 197 (H) 70 - 140 10/22/2021 PCLX B mg/dL 6:23 PM COUPON COLLECTION CLERK Site Capillary 10/22/2021 PCLX 6:23 PM COUPON COLLECTION CLERK Specimen Anatomical Collection Method Collection Time Receive d Time (Source) Location / / Volume Laterality Blood 10/22/2021 6:16 PM 6:23 COUPON COLLECTION CLERK PM COUPON COLLECTION CLERK Unknown Provider LAB POCT ORDERABLES-MANUAL Performing Organization Address City/State/ZIP Code Phon e Number POC [facility] [address] [place] [address] PCLX [facility] [place] [address] [place] [facility] [address] IR FEMORAL ARTERY ENDARTERECTOMY (10/22/2021 5:49 PM COUPON COLLECTION CLERK) Anatomical Region Laterality Modality Lower Extremity, Vascular Interventional RST LOS N/A Other Specimen (Source) Anatomical Location Collection Method / Collectio n Time Received Time / Laterality Volume Narrative 10/26/2021 11:34 AM CDT Performed by surgeon - see Op Note for r esult. Mark Mcneil M.D., M.S. IMG IR PROCEDURES IR IMAGING (10/22/2021 5:49 PM COUPON COLLECTION CLERK) Anatomical Region Laterality Modality N/A Other Specimen (Source) Anatomical Location Collection Method / Collectio n Time Received Time / Laterality Volume Narrative 10/26/2021 11:34 AM CDT Performed by surgeon - see Op Note for r esult. Mark Mcneil M.D., M.S. IMG IR PROCEDURES IR ABDOMEN AORTA STENT GRAFT (10/22/2021 5:49 PM COUPON COLLECTION CLERK) Anatomical Region Laterality Modality Abdomen, Vascular Interventional RST LOS N/A Other Specimen (Source) Anatomical Location Collection Method / Collectio n Time Received Time / Laterality Volume Narrative 10/26/2021 11:34 AM CDT Performed by surgeon - see Op Note for r esult. Mark Mcneil M.D., M.S. IMG IR PROCEDURES (ABNORMAL) ACT (Activated Clotting Time), POCT (10/22/2021 3:40 PM COUPON COLLECTION CLERK) athologist Signature Activated 227 (H) 84 - 139 10/22/2021 PCSM Clotting Time, sec 3:45 PM COUPON COLLECTION CLERK POCT Specimen Anatomical Collection Method Collection Time Receive d Time (Source) Location / / Volume Laterality Blood 10/22/2021 3:40 PM 2 3:45 COUPON COLLECTION CLERK PM COUPON COLLECTION CLERK Unknown Provider LAB POCT ORDERABLES - DEVICE Performing Organization Address City/State/ZIP [facility] Phon e Number POC [facility] IN[facility]IENT [address] [place], [place] [address] LABS [place]CSM [place], [place] [id number] [place] [address] (ABNORMAL) Glucose, POCT (10/22/2021 3:39 PM COUPON COLLECTION CLERK) athologist Signature Glucose, POCT, 153 (H) 70 - 140 10/22/2021 PCSM B mg/dL 3:41 PM COUPON COLLECTION CLERK Site ARTLINE 10/22/2021 PCSM 3:41 PM COUPON COLLECTION CLERK Specimen Anatomical Collection Method Collection Time Receive d Time (Source) Location / / Volume Laterality Blood 10/22/2021 3:39 PM 2 3:41 COUPON COLLECTION CLERK PM COUPON COLLECTION CLERK Unknown Provider LAB POCT ORDERABLES-MANUAL Performing Organization Address City/State/ZIP [facility] Phon e Number POC [facility] IN[facility] [address] [place], [place] [address] [place] [address] [place] [facility] [address] (ABNORMAL) ACT (Activated Clotting Time), POCT (10/22/2021 3:13 PM COUPON COLLECTION CLERK) athologist Signature Activated 211 (H) 84 - 139 10/22/2021 PCSM Clotting Time, sec 3:17 PM COUPON COLLECTION CLERK POCT Specimen Anatomical Collection Method Collection Time Receive d Time (Source) Location / / Volume Laterality Blood 10/22/2021 3:13 PM 2 3:17 COUPON COLLECTION CLERK PM COUPON COLLECTION CLERK Unknown Provider LAB POCT ORDERABLES - DEVICE Performing Organization Address [facility]/ZIP [facility] Phon e Number POC RST [facility] INPATIENT [address] [place], [place] [address] [place] [address] [place] [facility] [address] (ABNORMAL) ACT (Activated Clotting Time), POCT (10/22/2021 2:47 PM COUPON COLLECTION CLERK) athologist Signature Activated 239 (H) 84 - 139 10/22/2021 PCSM Clotting Time, sec 2:54 PM COUPON COLLECTION CLERK POCT Specimen Anatomical Collection Method Collection Time Receive d Time (Source) Location / / Volume Laterality Blood 10/22/2021 2:47 PM 2 2:54 COUPON COLLECTION CLERK PM COUPON COLLECTION CLERK Unknown Provider LAB POCT ORDERABLES - DEVICE Performing Organization Address [facility] Phon e Number POC [facility] IN[facility]IENT [address] [place], [place] [address] [place] [address] [place] [facility] [address] Glucose, Whole Blood (10/22/2021 1:43 PM COUPON COLLECTION CLERK) athologist Signature Glucose 125 70 - 140 10/22/2021 1:45 ST[facility] mg/dL PM COUPON COLLECTION CLERK Specimen Anatomical Collection Method Collection Time Receive d Time (Source) Location / / Volume Laterality Blood (Blood, 10/22/2021 1:43 PM 10/23/19 22 1:43 Arterial Line) COUPON COLLECTION CLERK PM COUPON COLLECTION CLERK Asaf Juarez M.D. LAB BLOOD TROPONIN Performing Organization Address City/[facility] Phon e Number [facility] - [address] [place], [place] [address] [facility] [place] [address] [facility] [place] [address] (ABNORMAL) Potassium, Blood (10/22/2021 1:43 PM COUPON COLLECTION CLERK) athologist Signature Potassium, B 3.5 (L) 3.6 - 5.2 10/22/2021 ST[facility] mmol/L 1:45 PM COUPON COLLECTION CLERK Specimen Anatomical Collection Method Collection Time Receive d Time (Source) Location / / Volume Laterality Blood (Blood, 10/22/2021 1:43 PM 10/23/19 1:43 Arterial Line) COUPON COLLECTION CLERK PM COUPON COLLECTION CLERK Asaf Juarez M.D. LAB BLOOD NON ADD-ON Performing Organization Address City/State/ZIP Code Phon e Number [facility] - [address] [place], [place] [address] [place] [address] [facility] [address] [facility] Sodium, B (10/22/2021 1:43 PM COUPON COLLECTION CLERK) P athologist Signature Sodium, B 139 135 - 145 10/22/2021 1:45 ST[facility] mmol/L PM COUPON COLLECTION CLERK Specimen Anatomical Collection Method Collection Time Receive d Time (Source) Location / / Volume Laterality Blood (Blood, 10/22/2021 1:43 PM 10/23/19 1:43 Arterial Line) COUPON COLLECTION CLERK PM COUPON COLLECTION CLERK Asaf Juarez M.D. LAB BLOOD NON ADD-ON Performing Organization Address City/State/ZIP Code Phon e Number [facility] - [address] [place], [place] [address] [place] [address] [facility] [address] (ABNORMAL) Calcium, Ionized (10/22/2021 1:43 PM COUPON COLLECTION CLERK) P athologist Signature Calcium, 4.52 (L) 4.65 - 10/22/2021 ST[facility] Ionized, B 5.30 mg/dL 1:45 PM COUPON COLLECTION CLERK Specimen Anatomical Collection Method Collection Time Receive d Time (Source) Location / / Volume Laterality Blood (Blood, 10/22/2021 1:43 PM 10/23/19 1:43 Arterial Line) COUPON COLLECTION CLERK PM COUPON COLLECTION CLERK Asaf Juarez M.D. LAB BLOOD NON ADD-ON Performing Organization Address City/State/ZIP Code Phon e Number [facility] - [address] [place], [place] [address] [facility] [place] [address] [facility] [address] (ABNORMAL) Blood Gas with Coox, Arterial (10/22/2021 1:43 PM COUPON COLLECTION CLERK) athologist Signature pO2 227 (H) 83 - 108 10/22/2021 STMA mm Hg 1:45 PM COUPON COLLECTION CLERK pCO2 43 32 - 45 mm 10/22/2021 [facility] Hg 1:45 PM COUPON COLLECTION CLERK pH 7.38 7.35 - 10/22/2021 ST[facility] 7.45 pH 1:45 PM COUPON COLLECTION CLERK Base Excess 0 -2 - 3 10/22/2021 [facility] mmol/L 1:45 PM COUPON COLLECTION CLERK HCO3 25 22 - 26 10/22/2021 [facility] mmol/L 1:45 PM COUPON COLLECTION CLERK Hemoglobin, B 10.0 (L) 11.6 - 10/22/2021 [facility]MA 15.0 g/dL 1:45 PM COUPON COLLECTION CLERK O2Hb 98.4 (H) 94.0 - 10/22/2021 [facility] 98.0 % 1:45 PM COUPON COLLECTION CLERK COHb 1.1 <3.0 % 10/22/2021 [facility] 1:45 PM COUPON COLLECTION CLERK MetHb <1.0 <1.5 % 10/22/2021 ST[facility] 1:45 PM COUPON COLLECTION CLERK CtO2 14.4 (L) 18.0 - 10/22/2021 STMA 21.0 vol % 1:45 PM COUPON COLLECTION CLERK Specimen Anatomical Collection Method Collection Time Receive d Time (Source) Location / / Volume Laterality Blood (Blood, 10/22/2021 1:43 PM 10/23/19 1:43 Arterial Line) COUPON COLLECTION CLERK PM COUPON COLLECTION CLERK Asaf Juarez M.D. LAB BLOOD NON ADD-ON Performing Organization Address City/State/ZIP Code Phon e Number [facility] - [address] [place], [place] [address] [facility] [place] [address] Laboratories-[facility] [address] ACT (Activated Clotting Time), POCT (10/22/2021 1:41 PM COUPON COLLECTION CLERK) athologist Signature Activated 131 84 - 139 10/22/2021 PCSM Clotting Time, sec 1:45 PM COUPON COLLECTION CLERK POCT Specimen Anatomical Collection Method Collection Time Receive d Time (Source) Location / / Volume Laterality Blood 10/22/2021 1:41 PM 2 1:45 COUPON COLLECTION CLERK PM COUPON COLLECTION CLERK Unknown Provider LAB POCT ORDERABLES - DEVICE Performing Organization Address City/State/ZIP Code Phon e Number POC [facility] [address] [place], [place] [address] [place] [address] [facility] [address] [place] [address] Glucose, POCT (10/22/2021 11:10 AM COUPON COLLECTION CLERK) Analysis Performed At Patho logist Time Signature Glucose, POCT, 131 70 - 140 10/22/2021 PCLX B mg/dL 11:21 AM COUPON COLLECTION CLERK Site Capillary 10/22/2021 PCLX 11:21 AM COUPON COLLECTION CLERK Specimen Anatomical Collection Method Collection Time Receive d Time (Source) Location / / Volume Laterality Blood 10/22/2021 11:10 10/22/2021 AM COUPON COLLECTION CLERK 11:21 AM COUPON COLLECTION CLERK Unknown Provider LAB POCT ORDERABLES-MANUAL Performing Organization Address [facility] Phon e Number POC [facility] [address] [place] [address] [place] [address] [facility] [address] [facility] documented in this encounter Visit Diagnoses [...] tablet 1,000 mg Given 10/24/2021 9:03 AM COUPON COLLECTION CLERK 1,000 mg (TYLENOL) 1,000 mg, oral, 4 times daily, First dose on Meredith 10/22/21 at 2145 Given 10/23/2021 8:50 PM COUPON COLLECTION CLERK 1,000 mg Given 10/23/2021 5:27 PM COUPON COLLECTION CLERK 1,000 mg albuterol nebulizer solution 2.5 mg 2.5 mg, nebulization, Every 6 hours PRN, wheezing, shortness of breath, Starting on Meredith 10/22/21 at 2138 albuterol nebulizer solution 2.5 mg Given 10/24/2021 9:05 AM COUPON COLLECTION CLERK 2.5 mg 2.5 mg, nebulization, 2 times daily, First dose on Tue10/23/21 at 0900 Given 10/23/2021 9:06 PM COUPON COLLECTION CLERK 2.5 mg Given 10/23/2021 9:34 AM COUPON COLLECTION CLERK 2.5 mg aspirin chewable tablet 81 mg Given 10/23/2021 5:28 PM COUPON COLLECTION CLERK 81 mg 81 mg, oral, Every evening, First dose on Tue10/22/21 at 2130 Given 10/22/2021 10:06 PM COUPON COLLECTION CLERK 81 mg atorvastatin tablet 20 mg (LIPITOR) Given 10/23/2021 8:51 PM COUPON COLLECTION CLERK 20 mg 20 mg, oral, Daily at bedtime, First dose on Tue10/22/21 at 2145 Given 10/22/2021 10:06 PM COUPON COLLECTION CLERK 20 mg bisacodyL suppository 10 mg (DULCOLAX) 10 mg, rectal, Daily PRN, constipation, Starting on Tue10/22/21 at 2024, Ordered sequence of administration: polyethylene glycol, then bisacodyl until BM achieved. cellulose, oxidized 1 X 2 pad (SURGICE L) Given 10/22/2021 4:54 PM COUPON COLLECTION CLERK 1 each As needed, Starting on Tue10/22/21 at 1654, Intra-Op famotidine tablet 20 mg (PEPCID) Given 10/23/2021 8:50 PM COUPON COLLECTION CLERK 20 mg 20 mg, oral, Daily at bedtime, First dose on Tue10/22/21 at 2145, Drug Monitoring Program: Pharmacist to adjust medication dosing based on indication and drug clearance factors. Given 10/22/2021 10:06 PM COUPON COLLECTION CLERK 20 mg fentaNYL injection 25 mcg (SUBLIMAZE) Given 10/22/2021 9:01 PM COUPON COLLECTION CLERK 25 mcg 25 mcg, intravenous, Every [...] interchanged for Budesonide/Formoterol Given 10/23/2021 9:48 AM COUPON COLLECTION CLERK 1 puff haloperidol lactate injection 1 [...] promethazine) heparin (porcine) Given 10/24/2021 5:27 AM COUPON COLLECTION CLERK 5,000 Units Left Lower Abdomen injection 5,000 Units 5,000 Units, subcutaneous, Every 8 hours scheduled, First dose on Tue10/23/21 at 0600 Given 10/23/2021 9:20 PM COUPON COLLECTION CLERK 5,000 Units Left Lower Abdomen Given 10/23/2021 2:43 PM COUPON COLLECTION CLERK 5,000 Units Left Upper Arm heparin 10 Units/mL in NaCl 0.9% 500 mL flush Given 5:00 PM COUPON COLLECTION CLERK 400 mL solution miscellaneous, Once in surgery, OR use only, Starting on Tue10/22/21 at 1223, For 1 dose, Intra-Op, *Flush/Irrigation use only* hydroCHLOROthiazide tablet 25 mg (HYDROD IURIL) Given 10/23/2021 5:28 PM COUPON COLLECTION CLERK 25 mg 25 mg, oral, Every evening, First dose on Tue10/22/21 at 2145 Given 10/22/2021 10:06 PM COUPON COLLECTION CLERK 25 mg HYDROmorphone (PF) injection 0.4 [...] in NaCl 0.9% Given 05/2022 5:03 PM COUPON COLLECTION CLERK 133 mL injection 300 mL, injection, Once in surgery, OR use only, Starting on Meredith 10/22/21 at 1223, For 1 dose, Intra-Op levothyroxine tablet 50 mcg (SYNTHROID, Given 10/23/2021 8:50 PM COUPON COLLECTION CLERK 50 mcg LEVOTHROID) 50 mcg, oral, Daily at bedtime, First dose on Meredith 10/22/21 at 2145 Given 10/22/2021 10:06 PM COUPON COLLECTION CLERK 50 mcg losartan tablet 100 mg (COZAAR) Given 10/23/2021 5:28 PM COUPON COLLECTION CLERK 100 mg 100 mg, oral, Every evening, First dose on Meredith 10/22/21 at 2145 Given 10/22/2021 10:06 PM COUPON COLLECTION CLERK 100 mg naloxone injection 0.2 mg (NARCAN) 0.2 mg, intravenous, As needed, respirat ory depression, Starting on Meredith 10/22/21 at 2024, For respiratory rate less than 8 b reaths per minute or RASS score of -3, -4, -5. Apply oxygen to keep oxygen saturati ons greater than 90% and notify service. ondansetron (PF) injection 4 mg (ZOFRAN) Given 10/23/2021 9:11 AM COUPON COLLECTION CLERK 4 mg 4 mg, intravenous, Every 6 hours PRN, nausea, vomiting, Starting on Meredith 10/22/21 at 2024, For 48 hours, Reassess for nausea or vomiting after at least 10 minutes. If nausea or vomiting persists administer next ordered antiemetic medications (order for antiemetic medication administration ondansetron then droperidol then promethazine). Given 10/22/2021 10:27 PM COUPON COLLECTION CLERK 4 mg oxyCODONE IR tablet 10 [...] 5 mg (ROXICODONE) Given 10/23/2021 10:40 PM COUPON COLLECTION CLERK 5 mg 5 mg, oral, Every 4 hours PRN, moderate pain or score 4-6 of 10, Starting on Meredith 10/22/21 at 2024, Administer if pain is unrelieved by acetaminophen. May repeat dose once after 1 hour for persistent pain not to exceed 10 mg in 4 hours. Begin oral narcotics ONLY when tolerating oral diet. Given 10/23/2021 10:00 AM COUPON COLLECTION CLERK 5 mg polyethylene glycol powder packet 1 pack et (MIRALAX) 1 packet, oral, Daily PRN, constipation, Starting on Meredith 10/22/21 at 2024, Ordered sequence of administration: polyethylene glycol, then bisacodyl until BM achieved. Avoid mixing with starch-based thickened liquids. promethazine injection 6.25 mg (PHENERGA N) Given 10/23/2021 9:44 PM COUPON COLLECTION CLERK 6.25 mg 6.25 mg, intravenous, Every [...] mg per Given 10/24/2021 9:03 A M COUPON COLLECTION CLERK 1 tablet tablet 1 tablet (SENOKOT-S) 1 tablet, oral, 2 times daily, First dose on Tue10/23/21 at 0900, Initiate ONLY when taking oral food and fluids. Do not give if patient has diarrhea or ostomy. Given 10/23/2021 8:50 PM COUPON COLLECTION CLERK 1 tablet thrombin (recombinant) topical solution Given 10/23/19 4:54 PM COUPON COLLECTION CLERK 5,000 Units (RECOTHROM) As needed, Starting on Tue10/22/21 at 1654, Intra-Op documented in this encounter Active and Recently Administered Medications Times are shown in COUPON COLLECTION CLERK. Scheduled Medication Order 10/22/2021 10/23/2021 10/24/2021 [...] Lester Hernandez R.N.)2120 (Given - Provider: Augustine Crocoran R.N., CCRN) 0527 (Given - Provider: Anisa [...] Sera Brink APRN, MARILU)1609 (Stopped - Provider: Khurram Brink APRN, CRNA)1625 [...] R.N.) 0-8 Units, subcutaneous, Every 2 hour IN N, high blood sugar, Nurse to determine [...]
--- OUTSIDE RECORDS SUMMARY | 2022-04-05 09:19 | XMS_ITS | Encounter Summary ---
:1955 Author Organization [facility] Address [address] [place] [address] Care Team Providers Name Role Phone Unavailable [...] do you attend restorationism or Never 2018 anglican services? Do you [...] Appointment Radiology Mark Eastman M.D., M.S. 200 [place] [phone] 04/26/2022 Office Visit Otorhinolaryngology Roxanne Lanza APRN, C.N.P. [address] [place] [phone] 04/28/2022 Appointment Radiation Oncology Ursula Aguirre M.D. 200 [place] [phone] documented as of this encounter Procedures Procedure Name Priority Date/Time Associated Diagnosis Comme nts VASCULAR SURGERY Routine 10/22/2021 1:40 PM Resul ts for this IMAGE EXAM MONUMENT STONECUTTER procedure are i n the results section. documented in this encounter Results VascUltrasound-Vascular Surgery Image Exam (10/22/2021 1:40 PM MONUMENT STONECUTTER) Specimen (Source) Anatomical Location Collection Method / Collectio n Time Received Time / Laterality Volume Narrative IIMS - 10/23/2021 7:21 AM MONUMENT STONECUTTER This order has been created and auto-finalized [...]
--- OUTSIDE RECORDS SUMMARY | 2022-04-05 09:19 | XMS_ITS | Encounter Summary ---
:1955 Author Organization [facility] Address [address] [place] [address] Care Team Providers Name Role Phone Unavailable Primary Care Provider Unavailable Reason for Referral Outpatient (Routine) - Authorized Specialty Diagnoses / Procedures Referred By Contact Refer red To Contact Vascular Medicine Radha Lizarraga [facility] C.N.PShital, M.S. 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 200 [place] [address] Referral ID Status Reason Start Date Expiration Date Visits Requ ested Visits Authorized [id number] Closed 09/22/2021 09/22/2022 1 1 Encounter Details Date Type Department Care Team Description 10/16/2021 Office Visit Department of Vascular Hirao-Try, Aneur ysm Abdominal Aortic Without Rupture (HCC) (Primary Dx); Medicine in [place], Radha, STRATEGIC ACCOUNT MANAGER, Preo perative Examination Cardiovascular; [place] C.N.P., M.S. Stenosis Carotid Artery Left; 200 [facility] 200 [facility] [place] [phone] Social History Tobacco Use Types Packs/Day Years [...] do you attend jewish or Never 2018 episcopal services? Do you [...] Comments Blood Pressure 147/77 10/16/2021 1:19 PM BINDER TECHNICIAN Pulse - - Temperature - - Respiratory Rate - - Oxygen Saturation - - Inhaled Oxygen Concentration - - Weight 86.8 kg (191 lb 5.8 oz) 10/16/2021 1:19 PM BINDER TECHNICIAN Height 166.3 cm (5' 5.47) 10/16/2021 1:19 PM BINDER TECHNICIAN Body Mass Index 31.39 10/16/2021 1:19 PM BINDER TECHNICIAN documented in this encounter Progress Notes Radha Lizarraga APRN, C.N.P., M.S. - 10/16/2021 2:00 PM CST REFERRAL SOURCE Reynaldo Alfaro M.D. 200 [place] [phone] SUBJECTIVE CHIEF COMPLAINT / REASON FOR VISIT Review test results HISTORY OF PRESENT ILLNESS Ms. Steiner is a 66 y.o. female from [facility] that I am seeing today to [...] normal distal ICA in accordance with [place] Symptomatic Carotid Endarterectomy Trial (NASCET). ?? IMPRESSION: [...] my knowledge. Radha Lizarraga APRN, C.N.P., M.S. ER TECHNICIAN documented in this encounter Plan of Treatment Upcoming Encounters Date Type Specialty Care Team Description 04/22/2022 Clinical Admitting/Central Communication Scheduling 04/26/2022 Appointment Radiology Mark Eastman M.D., M.S. [address] [place] [phone] 04/26/2022 Office Visit Otorhinolaryngology Roxanne Lanza APRN, C.N.P. [address] [place] [phone] 04/28/2022 Appointment Radiation Oncology Ursula Aguirre M.D. [address] [place] [address] Scheduled Orders Name Type Priority Associated Diagnoses Order S [facility] Lipid Panel Lab Routine Aneurysm Abdominal Expected: Aortic Without 10/16/2022 Rupture (HCC) (Approximate), Stenosis Carotid Expires: Artery Left 10/16/2022 US Carotid Imaging RAD - Routine (most Aneurysm Abdominal Ex pected: Bilateral inpatients and all Aortic Without 023 outpatients) Rupture (HCC) (Approximate), Stenosis Carotid Expires: Artery Left 01/16/2023 Scheduled Referrals Name Type Priority Associated Diagnoses Order S [facility] Vascular Medicine Outpatient Referral Routine Exp ected: office visit 10/16/2022 (clinic) Vascular (Approxima te), Surgery Referral Expires: 01/16/2023 documented as of this encounter Visit Diagnoses Diagnosis Aneurysm Abdominal Aortic Without Ruptur e (HCC) - Primary Preoperative Examination Cardiovascular Stenosis Carotid Artery Left Dyslipidemia documented in this encounter
--- OUTSIDE RECORDS SUMMARY | 2022-04-05 09:20 | XMS_ITS | Encounter Summary ---
:1955 Author Organization [facility] Address [address] [place] [address] Care Team Providers Name Role Phone Unavailable Primary Care Provider Unavailable Encounter Details Date Type Department Care Team Description 09/15/2021 Hospital Encounter Department of Ursula Aguirre Aneur [facility] Thoracic Laboratory Medicine Kimberley Bacon Aortic Without and Pathology, [address] [place] [address] Rupture (HCC) [facility] in [place] [phone] [place] [phone] 200 [facility] (Work) [place], [place] [phone] (Fax) [phone] Social History Tobacco Use Types Packs/Day Years [...] do you attend episcopalian or Never 2018 zoroastrianism services? Do you [...] Radiology Mark Eastman M.D., M.S. [address] [place] [phone] 04/26/2022 Office Visit Otorhinolaryngology Roxanne Lanza APRN, C.N.P. [address] [place] [phone] 04/28/2022 Appointment Radiation Oncology Ursula Aguirre M.D. [address] [place] [phone] documented as of this encounter Procedures Procedure Name Priority Date/Time Associated Comments Diagnosis CREATININE WITH Routine 09/15/2021 9:46 AM Aneurysm Thoracic R esults for this EGFR, S/P DAIRY CATTLE FARM MANAGER Aortic Without procedure are in Rupture (HCC) the results section. documented in this encounter Results (ABNORMAL) Creatinine with Estimated GFR (09/15/2021 9:46 AM DAIRY CATTLE FARM MANAGER) P athologist Signature Creatinine, S 1.20 (H) 0.59 - 09/15/2021 DTL 1.04 mg/dL 10:48 AM DAIRY CATTLE FARM MANAGER eGFR-Non 48 (L) >=60 09/15/2021 DTL Black/ mL/min/BSA 10:48 AM DAIRY CATTLE FARM MANAGER English Comment: ----ADDITIONAL INFORMATION---- Estimated GFR calculated using the 2009 CKD_EPI creatinine equation. eGFR-Black/ 55 (L) >=60 mL/min/BSA 2021 10:48 AM DAIRY CATTLE FARM MANAGER DTL Comment: ----ADDITIONAL INFORMATION---- Estimated GFR calculated using the 2009 CKD_EPI creatinine equation. Specimen Anatomical Collection Method Collection Time Receive d Time (Source) Location / / Volume Laterality Blood (Blood, 09/15/2021 9:46 AM 09/15/19 22 Venous) DAIRY CATTLE FARM MANAGER 10:30 AM DAIRY CATTLE FARM MANAGER Ursula Aguirre M.D. 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
--- OUTSIDE RECORDS SUMMARY | 2022-04-05 09:20 | XMS_ITS | Encounter Summary ---
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 [address] [place] [address] [phone] Referral ID Status Reason Start Date Expiration Date Visits Requ ested Visits Authorized [id number] Closed 09/15/2021 09/15/2022 1 1 Encounter Details Date Type Department Care Team Description 09/22/2021 Hospital Encounter Department of Ronit Eastman Abdominal Cardiovascular Rahul Ge Withou t Diseases in [place], Kimberley, M.S . Rupture (HCC) [address] [place] [address] [phone] Social History Tobacco Use Types Packs/Day Years [...] do you attend restorationism or Never 2018 temple services? Do you [...] Radiology Mark Eastman M.D., M.S. [address] [place] [phone] 04/26/2022 Office Visit Otorhinolaryngology Roxanne Lanza, AMAYA, C.N.P. [address] [place] [phone] 04/28/2022 Appointment Radiation Oncology Ursula Aguirre M.D. [address] [place] [phone] documented as of this encounter Procedures Procedure Name Priority Date/Time Associated Diagnosis Comme nts ECHO STRESS 2D WITH Routine 09/22/2021 1:40 PM Aneurysm Abdomi nal Results for this COLOR, LIMITED FOLDER TIER Aortic Without procedure a re in DOPPLER AND Rupture (HCC) the results CONTRAST section. documented in this encounter Results ECHO STRESS 2D WITH COLOR, LIMITED DOPPLER AND CONTRAST (09/22/2021 1:40 PM FOLDER TIER) [facility] Method Time Signature Ejection Fraction 60 MC [...] / / Volume Laterality 09/22/2021 12:25 PM FOLDER TIER Impressions 09/22/2021 8:44 PM FOLDER TIER STRESS TEST:Dobutamine was infused from 5 mcg/kg/min [...] For the complete report, see the Order-L [employer] Documents. Narrative 09/22/2021 8:44 PM FOLDER TIER For the complete report, see the Order-Level [...] Mark Eastman M.D., M.S. CV ECHO PROCEDURES documented in this encounter Visit Diagnoses Diagnosis Aneurysm Abdominal Aortic Without Ruptur e (HCC) documented in this encounter Administered Medications Inactive Administered Medications - up to 3 most recent administrations Medication Order MAR Action Action Date Dose Rate Site atropine injection 0.25 mg Given 09/22/2021 1:10 PM FOLDER TIER 0.25 mg 0.25 mg, intravenous, Once, On [...] lipid microspheres injection Given 09/22/2021 1:10 PM FOLDER TIER 5 mL (DEFINITY) intravenous, Once in imaging, [...] injection 10 mL Given 09/22/2021 12:40 PM FOLDER TIER 10 mL 10 mL, intravenous, Once, On 09/22/21 at 1345, For 1 dose, Prior to and following infusion and between multiple consecutive infusions: sodium chloride 0.9 % injection documented in this encounter
--- OUTSIDE RECORDS SUMMARY | 2022-04-05 09:20 | XMS_ITS | Encounter Summary ---
:1955 Author Organization [facility] Address [address] [place] [address] Care Team Providers Name Role Phone Unavailable Primary Care Provider Unavailable Reason for Referral Outpatient (Routine) - Closed Specialty Diagnoses / Procedures Referred By Contact Refer red To Contact Vascular Medicine Diagnoses Aneurysm Abdominal Aortic Without Rupture (HCC) Mark Eastman [place] [facility] [place] M.D., M.S. [address] [place] [phone] Referral ID Status Reason Start Date Expiration Date Visits Requ ested Visits Authorized [id number] Closed 09/15/2021 09/15/2022 1 1 utpatient (Routine) - Closed Specialty Diagnoses / Procedures Referred By Contact Refer red To Contact Diagnoses Aneurysm Abdominal Aortic Without Rupture (HCC) Mark Eastman [place] [facility] [place] Procedures Echo Stress MTreasure., M.S. [address] [place] [phone] Referral ID Status Reason Start Date Expiration Date Visits Requ ested Visits Authorized [id number] Closed 09/15/2021 09/15/2022 1 1 utpatient (Routine) - Closed Specialty Diagnoses / Procedures Referred By Contact Refer red To Contact Diagnoses Aneurysm Abdominal Aortic Without Rupture (HCC) Mark Eastman [place] [facility] [place] Procedures ECG 12 Lead M.D., M.S. [place], [place] [phone] Referral ID Status Reason Start Date Expiration Date Visits Requ ested Visits Authorized [id number] Closed 09/15/2021 09/15/2022 1 1 utpatient (Routine) - Closed Specialty Diagnoses / Procedures Referred By Contact Refer red To Contact Diagnoses Aneurysm Abdominal Aortic Without Rupture (HCC) Mark Eastman [facility] To[place] Procedures DX Chest AP or PA and Lateral 2 Views Kimberley, M.S. 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 Malignant Neoplasm Of Supraglottic (HCC) [facility] [place] [phone] Social History Tobacco Use Types Packs/Day Years [...] do you attend mormon or Never 2018 restoration services? Do you [...] Of Supraglottic (HCC) Mark Eastman M.D., M.S. ARY INFORMATION TECHNICIAN documented in this encounter Plan of Treatment Upcoming Encounters Date Type Specialty Care Team Description 04/22/2022 Clinical Admitting/Central Communication Scheduling 04/26/2022 Appointment Radiology Mark Eastman M.D., M.S. [address] [place] [phone] 04/26/2022 Office Visit Otorhinolaryngology Roxanne Lanza, SKATESMAN, C.N.P. [address] [place] [phone] 04/28/2022 Appointment Radiation Oncology Ursula Aguirre M.D. [address] [place] [phone] Scheduled Referrals Name Type Priority Associated Order Schedule Diagnoses Vascular Medicine Outpatient Referral Routine Aneurysm Abdomin al 1 Occurrences - KAROL consult Aortic Without starting 08/2021 (clinic) Rupture (HCC) until 12/14/19 23 documented as of this encounter Results SARS Coronavirus-2 RNA, V Asymptomatic (10/19/2021 12:57 PM LIBRARY INFORMATION TECHNICIAN) [facility] Method Time Signature SARS-CoV-2 Swab, 10/20/2021 MKTO Specimen Nasopharynx 1:47 AM LIBRARY INFORMATION TECHNICIAN Source SARS CoV-2 Undetected Undetected 10/20/2021 MKTO RNA, TMA 1:47 AM LIBRARY INFORMATION TECHNICIAN Comment: SARS-CoV-2 RNA absent. This result does not rule out COVID-19 in the patient, as the sensitivity of the test depends o n the timing of the specimen collection and the quality of the specim en. Result should be correlated with patient's history and clinical presentat ion. ----ADDITIONAL INFORMATION---- This molecular amplification test was pe rformed using the Aptima SARS-CoV-2 assay ([employer] on the NanoDynamicss tem under emergency use authorization (EUA) by the U.S. Food and Drug Administ ration. Fact sheets for this EUA assay can be fo und at the following links: For Healthcare Providers: https://www.[employer] a.gov/media/953252/download For Patients: https://www.fda.gov/media/ 414917/download Specimen Anatomical Collection Method Collection Time Receive d Time (Source) Location / / Volume Laterality Varies 10/19/2021 12:57 10/19/2021 7:37 (Nasopharynx) PM LIBRARY INFORMATION TECHNICIAN PM LIBRARY INFORMATION TECHNICIAN Mark Eastman M.D., M.S. LAB MICROBIOLOGY - GENE [facility] ORDERABLES Performing Organization Address City/State/ZIP Code Phon e Number [facility]- [address] [place] [phone] [place] [address] [address] ECHO STRESS 2D WITH COLOR, LIMITED DOPPLER AND CONTRAST (09/22/2021 1:40 PM LIBRARY INFORMATION TECHNICIAN) [facility] Method Time Signature Ejection Fraction [...] / / Volume Laterality 09/22/2021 12:25 PM LIBRARY INFORMATION TECHNICIAN Impressions 09/22/2021 8:44 PM LIBRARY INFORMATION TECHNICIAN STRESS TEST:Dobutamine was infused from 5 mcg/kg/min to 40 mcg/kg/min. A dose of 0.25 mg of atropine was administered. A peak heart rate of 144 BPM was achieved (93% age-predicted maximal HR). The test was terminated due to target heart rate achievement. The patient developed chest pain. The [facility] ECG demonstrated sinus rhythm. The baseline ECG [...] Order-L evel Documents. Narrative 09/22/2021 8:44 PM LIBRARY INFORMATION TECHNICIAN For the complete report, see the Order-Level [...] and Lateral 2 Views (09/22/2021 11:05 AM LIBRARY INFORMATION TECHNICIAN) Anatomical Region Laterality Modality Chest, Thoracic RST LOS, Thoracic ARZ LOS, Thoracic N/A Digital Radiography FLA LOS Specimen (Source) Anatomical Collection Method Collection Time Re ceived Time Location / / Volume Laterality 09/22/2021 11:14 AM LIBRARY INFORMATION TECHNICIAN Impressions 09/22/2021 11:36 AM LIBRARY INFORMATION TECHNICIAN Comparison PET/CT 06/12/2020. Prominent ascending aorta. Calcified tortuous aorta. Coronary calcification. Chest otherwise negative. Narrative 09/22/2021 11:36 AM LIBRARY INFORMATION TECHNICIAN EXAM: ??DX CHEST AP OR PA AND [...] PROCEDURES ECG 12 Lead (09/22/2021 10:50 AM LIBRARY INFORMATION TECHNICIAN) P athologist Signature Ventricular Rate 94 BPM MUSE ECG/Min MI Interval 188 ms MUSE QRSD Interval 76 ms MUSE QT Interval 360 ms MUSE QTC Interval 450 ms MUSE P [place] 42 degrees MUSE R [place] 43 degrees MUSE T Wave [place] 67 degrees MUSE Specimen Anatomical Collection Method Collection Time Receive d Time (Source) Location / / Volume Laterality 09/22/2021 10:50 09/22/2021 AM LIBRARY INFORMATION TECHNICIAN 10:53 AM LIBRARY INFORMATION TECHNICIAN Impressions MUSE - 09/22/2021 10:53 AM LIBRARY INFORMATION TECHNICIAN Normal sinus rhythm Nonspecific ST abnormality No [...] (with reflex Antibody ID) (09/22/2021 10:21 AM LIBRARY INFORMATION TECHNICIAN) Patholo gist Method Time Signature ABORh A Pos Not 09/22/2021 ETRM applicable 4:15 PM LIBRARY INFORMATION TECHNICIAN Antibody Negative Negative 09/22/2021 ETRM Screen 4:26 PM LIBRARY INFORMATION TECHNICIAN Type & Screen 11/20/2021 09/22/2021 ETRM Expiration 23:59 4:15 PM LIBRARY INFORMATION TECHNICIAN Testing [place] [facility] 09/22/2021 ETRM Location 10:52 AM LIBRARY INFORMATION TECHNICIAN Specimen Anatomical Collection Method Collection Time Receive d Time (Source) Location / / Volume Laterality Blood (Blood, 09/22/2021 10:21 09/22/2021 Venous) AM LIBRARY INFORMATION TECHNICIAN 10:52 AM LIBRARY INFORMATION TECHNICIAN Mark Eastman M.D., M.S. LAB BLOOD BANK TEST ORD ERABLES Performing Organization Address City/State/ZIP Code Phon e Number [facility] - [address] [place], [place] [address] [facility] [address] [facility] [address] (ABNORMAL) Lipid Panel (09/22/2021 10:21 AM LIBRARY INFORMATION TECHNICIAN) P athologist Signature Cholesterol, 265 (H) mg/dL 09/22/2021 DTL Total 11:30 AM LIBRARY INFORMATION TECHNICIAN Comment: ----REFERENCE VALUE---- Desirable: < 200 Borderline high: 200 - 239 High: > or = 240 Triglycerides 390 (H) mg/dL 09/22/2021 11:30 AM LIBRARY INFORMATION TECHNICIAN DT L Comment: ----REFERENCE VALUE---- Normal: <150 Borderline high: 150-199 High: 200-499 Very high: > or =500 Cholesterol, HDL, S 37 (L) >=50 mg/dL 09/22/2021 11:30 AM LIBRARY INFORMATION TECHNICIAN DTL Calculated LDL 150 (H) mg/dL 09/22/2021 11:30 AM LIBRARY INFORMATION TECHNICIAN D TL Comment: ----REFERENCE VALUE---- Desirable: <100 mg/dL Above Desirable: 100-129 mg/dL Borderline High: 130-159 mg/dL High: 160-189 mg/dL Very High: >=190 mg/dL Cholesterol, Non-HDL, Calculated 228 (H) mg/dL 022 11:30 AM LIBRARY INFORMATION TECHNICIAN DTL Comment: ----REFERENCE VALUE---- Desirable: <130 Above Desirable: 130-159 Borderline high: 160-189 High: 190-219 Very high: > or =220 Specimen Anatomical Collection Method Collection Time Receive d Time (Source) Location / / Volume Laterality Blood (Blood, 09/22/2021 10:21 09/22/2021 Venous) AM LIBRARY INFORMATION TECHNICIAN 11:11 AM LIBRARY INFORMATION TECHNICIAN Mark Eastman M.D., M.S. LAB BLOOD ADD-ON Performing Organization Address City/State/ZIP Code Phon e Number [facility] - [address] [place] [address] [facility] [place] [address] [facility] 200 [facility] Hepatic Function Panel (09/22/2021 10:21 AM LIBRARY INFORMATION TECHNICIAN) Patholo gist Method Time Signature Bilirubin, Total, S 0.3 <=1.2 09/22/2021 DTL mg/dL 11:29 AM LIBRARY INFORMATION TECHNICIAN Bilirubin, Direct, S <0.2 0.0 - 0.3 09/22/2021 DTL mg/dL 11:29 AM LIBRARY INFORMATION TECHNICIAN Aspartate 15 8 - 43 09/22/2021 DTL Aminotransferase U/L 11:29 AM LIBRARY INFORMATION TECHNICIAN (AST), S Alanine 13 7 - 45 09/22/2021 DTL Aminotransferase U/L 11:29 AM LIBRARY INFORMATION TECHNICIAN (ALT), S Alkaline 69 35 - 104 09/22/2021 DTL Phosphatase, S U/L 11:29 AM LIBRARY INFORMATION TECHNICIAN Albumin, S 4.3 3.5 - 5.0 09/22/2021 DTL g/dL 11:29 AM LIBRARY INFORMATION TECHNICIAN Protein, Total, S 7.1 6.3 - 7.9 09/22/2021 DTL g/dL 11:29 AM LIBRARY INFORMATION TECHNICIAN Specimen Anatomical Collection Method Collection Time Receive d Time (Source) Location / / Volume Laterality Blood (Blood, 09/22/2021 10:21 09/22/2021 Venous) AM LIBRARY INFORMATION TECHNICIAN 11:11 AM LIBRARY INFORMATION TECHNICIAN Mark Eastman M.D., M.S. LAB BLOOD ADD-ON Performing Organization Address City/State/ZIP Code Phon e Number [facility] - 200 [place], [place] [address] [facility] [address] [facility] 200 [facility] (ABNORMAL) CBC with Differential, Blood (09/22/2021 10:21 AM LIBRARY INFORMATION TECHNICIAN) [facility] Method Time Signature Hemoglobin 11.2 (L) 11.6 - 09/22/2021 DTL 15.0 g/dL 10:59 AM LIBRARY INFORMATION TECHNICIAN Hematocrit 35.2 (L) 35.5 - 09/22/2021 DTL 44.9 % 10:59 AM LIBRARY INFORMATION TECHNICIAN Erythrocytes 3.87 (L) 3.92 - 09/22/2021 DTL 5.13 10:59 AM LIBRARY INFORMATION TECHNICIAN x10(12)/L MCV 91.0 78.2 - 09/22/2021 DTL 97.9 fL 10:59 AM LIBRARY INFORMATION TECHNICIAN RBC Distrib Width 15.4 12.2 - 09/22/2021 DTL 16.1 % 10:59 AM LIBRARY INFORMATION TECHNICIAN Platelet Count 271 157 - 371 09/22/2021 DTL x10(9)/L 10:59 AM LIBRARY INFORMATION TECHNICIAN Leukocytes 5.3 3.4 - 9.6 09/22/2021 DTL x10(9)/L 10:59 AM LIBRARY INFORMATION TECHNICIAN Neutrophils 3.56 1.56 - 09/22/2021 DTL 6.45 10:59 AM LIBRARY INFORMATION TECHNICIAN x10(9)/L Lymphocytes 0.82 (L) 0.95 - 09/22/2021 DTL 3.07 10:59 AM LIBRARY INFORMATION TECHNICIAN x10(9)/L Monocytes 0.48 0.26 - 09/22/2021 DTL 0.81 10:59 AM LIBRARY INFORMATION TECHNICIAN x10(9)/L Eosinophils 0.35 0.03 - 09/22/2021 DTL 0.48 10:59 AM LIBRARY INFORMATION TECHNICIAN x10(9)/L Basophils 0.04 0.01 - 09/22/2021 DTL 0.08 10:59 AM LIBRARY INFORMATION TECHNICIAN x10(9)/L Specimen Anatomical Collection Method Collection Time Receive d Time (Source) Location / / Volume Laterality Blood (Blood, 09/22/2021 10:21 09/22/2021 Venous) AM LIBRARY INFORMATION TECHNICIAN 10:49 AM LIBRARY INFORMATION TECHNICIAN Mark Eastman M.D., M.S. LAB BLOOD ADD-ON Performing Organization Address City/State/[facility] Code Phon e Number [facility] - 200 [place], [place] [address] [facility] [address] [facility] 200 [facility] (ABNORMAL) Basic Metabolic Panel (09/22/2021 10:21 AM LIBRARY INFORMATION TECHNICIAN) P athologist Signature Potassium, S 4.7 3.6 - 5.2 09/22/2021 DTL mmol/L 11:29 AM LIBRARY INFORMATION TECHNICIAN Sodium, S 135 135 - 145 09/22/2021 DTL mmol/L 11:29 AM LIBRARY INFORMATION TECHNICIAN Chloride, S 98 98 - 107 09/22/2021 DTL mmol/L 11:29 AM LIBRARY INFORMATION TECHNICIAN Bicarbonate, S 27 22 - 29 09/22/2021 DTL mmol/L 11:29 AM LIBRARY INFORMATION TECHNICIAN Anion Gap 10 7 - 15 09/22/2021 DTL 11:29 AM LIBRARY INFORMATION TECHNICIAN BUN (Blood 24 (H) 6 - 21 09/22/2021 DTL Urea mg/dL 11:29 AM LIBRARY INFORMATION TECHNICIAN Nitrogen), S Creatinine, S 1.11 (H) 0.59 - 09/22/2021 DTL 1.04 mg/dL 11:29 AM LIBRARY INFORMATION TECHNICIAN eGFR-Non 52 (L) >=60 09/22/2021 DTL Black/ mL/min/BSA 11:29 AM LIBRARY INFORMATION TECHNICIAN [place] Comment: ----ADDITIONAL INFORMATION---- Estimated GFR calculated using the 2009 CKD_EPI creatinine equation. eGFR-Black/ 60 >=60 mL/min/BSA 2021 11:29 AM LIBRARY INFORMATION TECHNICIAN DTL Comment: ----ADDITIONAL INFORMATION---- Estimated GFR calculated using the 2009 CKD_EPI creatinine equation. Calcium, Total, S 9.7 8.8 - 10.2 mg/dL 09/22/2021 11:2 9 AM LIBRARY INFORMATION TECHNICIAN DTL Glucose, S 107 70 - 140 mg/dL 09/22/2021 11:29 AM LIBRARY INFORMATION TECHNICIAN DTL Specimen Anatomical Collection Method Collection Time Receive d Time (Source) Location / / Volume Laterality Blood (Blood, 09/22/2021 10:21 09/22/2021 Venous) AM LIBRARY INFORMATION TECHNICIAN 11:11 AM LIBRARY INFORMATION TECHNICIAN Mark Eastman M.D., M.S. 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
--- OUTSIDE RECORDS SUMMARY | 2022-04-05 09:20 | XMS_ITS | Encounter Summary ---
:1955 Author Organization [facility] Address [address] [place] [address] Care Team Providers Name Role Phone Unavailable Primary Care Provider Unavailable Encounter Details Date Type Department Care Team Description 09/04/2021 Clinical Communication Department of Ursula Aguirre Radiation Oncology Kimberley Kaur [place] [address] [facility] [address] [place] [phone] Social History Tobacco Use Types Packs/Day Years [...] do you attend baptism or Never 2018 church services? Do you [...] just get these other appointments scheduled? Ayla PIPELINE DISPATCHER Telephone Encounter - Ayla Orellana - 09/04/2021 [...] to them with a plan. Phone number: [phone] Is it okay to leave a voicemail on answering machine with test results? No Pharmacy (if medication related): N/A Ayla Orellana PIPELINE DISPATCHER documented in this encounter Plan of Treatment Upcoming Encounters Date Type Specialty Care Team Description 04/22/2022 Clinical Admitting/Central Communication Scheduling 04/26/2022 Appointment Radiology Mark Eastman M.D., M.S. [address] [place] [phone] 04/26/2022 Office Visit Otorhinolaryngology Roxanne Lanza, VINEGAR MAKER, C.N.P. [address] [place] [phone] 04/28/2022 Appointment Radiation Oncology Ursula Aguirre M.D. [address] [place] [phone] documented as of this encounter Visit Diagnoses Not on filedocumented in this encounter
--- OUTSIDE RECORDS SUMMARY | 2022-04-05 09:20 | XMS_ITS | Encounter Summary ---
:1955 Author Organization [facility] Address [address] [place] [address] Care Team Providers Name Role Phone Unavailable Primary Care Provider Unavailable Reason for Referral Specialty Diagnoses / Procedures Referred By Contact Refer red To Contact Patience Adame M.D. [facility] [address] [place] [phone] Referral ID Status Reason Start Date Expiration Date Visits Requ ested Visits Authorized Encounter Details Date Type Department Care Team Description 04/24/2021 Orders Only [facility] Sa kate Adame M[facility] [address] [place] [phone] (Wo rk) Social History Tobacco [...] do you attend orthodoxy or Never 2018 tenriism services? Do you [...] Appointment Radiology Mark Eastman M.D., M.S. [address] [place] [phone] 04/26/2022 Office Visit Otorhinolaryngology Roxanne Lanza APRN, C.N.P. [address] [place] [phone] 04/28/2022 Appointment Radiation Oncology Ursula Aguirre M.D. [address] [place] [phone] Scheduled Referrals Name Type Priority Associated Order Schedule Diagnoses Covid immunization Outpatient Referral Routine Ex pected: office visit Booster 021 (Approximate), Expires: 04/24/2022 documented as of this encounter Visit Diagnoses Not on filedocumented in this encounter
--- OUTSIDE RECORDS SUMMARY | 2022-04-05 09:20 | XMS_ITS | Encounter Summary ---
:1955 Author Organization [facility] Address [address] [place] [address] Care Team Providers Name Role Phone Unavailable Primary Care Provider Unavailable Reason for Referral MRI/CAT/PET Scan (Routine) - Closed Specialty Diagnoses / Procedures Referred By Contact Refer red To Contact Radiology Diagnoses Aneurysm Thoracic Aortic Without Rupture (HCC) Ursula Aguirre M.D. 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 [facility] Procedures CT Abdomen Pelvis Angiogram with IV Contrast 200 [place], [place] [phone] Referral ID Status Reason Start Date Expiration Date Visits Requ ested Visits Authorized [id number] Closed 06/26/2020 09/15/2021 1 1 Encounter Details Date Type Department Care Team Description 09/15/2021 Hospital Encounter Department of [facility] Thoracic Radiology, Brenda Bacon M.D. Aortic Without Building, in [address] [facility] Rupture (HCC) [facility] [address] [place], [place] (Work) [address] [phone] Social History Tobacco Use Types Packs/Day Years [...] do you attend caodaism or Never 2018 bahai services? Do you [...] Radiology Mark Eastman M.D., M.S. [address] [place] [phone] 04/26/2022 Office Visit Otorhinolaryngology Roxanne Lanza, DIRECTIONAL BORE OPERATOR, C.N.P. [address] [place] [phone] 04/28/2022 Appointment Radiation Oncology Ursula Aguirre M.D. [address] [place] [phone] Scheduled Orders Name Type Priority Associated Diagnoses [...] this ANGIOGRAM WITH IV (most inpatients AM CONDENSER TESTER Aortic Without proc edure are in CONTRAST and all Rupture (HCC) the results outpatients) section. CREATININE, POCT, Routine 09/15/2021 10:52 Result s for this B AM CONDENSER TESTER procedure are i n the results section. CREATININE, POCT, Routine 09/15/2021 10:52 Result s for this B AM CONDENSER TESTER procedure are i n the results section. documented in this encounter Results CT Abdomen Pelvis Angiogram with IV Contrast (09/15/2021 11:44 AM CONDENSER TESTER) Anatomical Region Laterality Modality Abdomen, Pelvis, Cardiovascular RST N/A Comp uted Tomography, Computed LOS, Abdominal ARZ LOS, Vascular Tomogra phy Interventional ARZ LOS, Abdominal FLA LOS, Vascular Interventional FLA LOS Specimen (Source) Anatomical Collection Method Collection Time Re ceived Time Location / / Volume Laterality 09/15/2021 11:25 AM CONDENSER TESTER Impressions 09/15/2021 1:06 PM CONDENSER TESTER Enlarging infrarenal abdominal aortic aneurysm measuring 56 x 57 mm in maximum orthogonal dimension (previou sly 49 x 51 mm in 03/20/2019). Narrative 09/15/2021 1:06 PM CONDENSER TESTER EXAM: ??CT ABDOMEN PELVIS ANGIOGRAM WITH IV [...] PROCEDURES (ABNORMAL) Creatinine, POCT (09/15/2021 10:52 AM CONDENSER TESTER) athologist Signature Creatinine, 1.1 (H) 0.6 - 1.0 09[facility] PO[facility], B mg/dL 10:56 AM CONDENSER TESTER Comment: ----ADDITIONAL INFORMATION---- Performed at the Point of Care Specimen Anatomical Collection Method Collection Time Receive d Time (Source) Location / / Volume Laterality Blood 09/15/2021 10:52 09/15/2021 AM CONDENSER TESTER 10:56 AM CONDENSER TESTER Unknown Provider LAB POCT ORDERABLES - DEVICE Performing Organization Address City/State/ZIP Code Phon e Number [facility] [address] [place] [address] OUTPATIENT LABS [facility] [place] [address] [facility] [address] (ABNORMAL) Creatinine, POCT (09/15/2021 10:52 AM CONDENSER TESTER) athologist Signature eGFR-Black/Afri 61 >=60 09/15/2021 [facility] can South African, mL/min/BSA 10:56 AM CONDENSER TESTER POCT Comment: ----ADDITIONAL INFORMATION---- Estimated GFR calculated using the 2009 CKD_EPI creatinine equation. eGFR Non-Black/ 53 (L) >=60 mL/min/BSA 09/15/2021 10:56 AM CONDENSER TESTER [facility] South African, POCT Comment: ----ADDITIONAL INFORMATION---- Estimated GFR calculated using the 2009 CKD_EPI creatinine equation. Specimen Anatomical Collection Method Collection Time Receive d Time (Source) Location / / Volume Laterality Blood 09/15/2021 10:52 09/15/2021 AM CONDENSER TESTER 10:56 AM CONDENSER TESTER Unknown Provider LAB POCT ORDERABLES - DEVICE Performing Organization Address City/State/ZIP Code Phon e Number [facility] [address] [place] [address] OUTPATIENT LABS [facility] [place] [id number] [place] [address] documented in this encounter Visit Diagnoses Diagnosis Aneurysm Thoracic Aortic Without Rupture (HCC) documented in this encounter Administered Medications Inactive Administered Medications - up to 3 most recent administrations Medication Order MAR Action Action Date Dose Rate Site iohexoL 350 mg iodine/mL solution Given 09/15/2021 11:14 AM CONDENSER TESTER 100 mL 1-200 mL (OMNIPAQUE) 1-200 mL, intravenous, Once in imaging, contrast, Starting on Tue09/15/21 at 1049, For 1 dose, Imaging Protocol Orders, Dose per Radiant Medication Guidelines sodium chloride (PF) 0.9 % injection 1-1 00 mL Given 09/15/2021 11:14 AM CONDENSER TESTER 30 mL 1-100 mL, intravenous, Once, On Tue09/15/21 at 1100, For 1 dose, Imaging Protocol Orders documented in this encounter
--- OUTSIDE RECORDS SUMMARY | 2022-04-05 09:20 | XMS_ITS | Encounter Summary ---
:1955 Author Organization [facility] Address [address] [place] [address] Care Team Providers Name Role Phone Unavailable Primary Care Provider Unavailable Reason for Referral Outpatient (Routine) - Closed Specialty Diagnoses / Procedures Referred By Contact Refer red To Contact Otorhinolaryngology Roxanne Lanza [facility] AMAYA, C.N.P. [address] [place] [phone] Referral ID Status Reason Start Date Expiration Date Visits Requ ested Visits Authorized [id number] Closed 09/16/2021 09/16/2022 1 1 Scheduling Instructions Laryngeal cancer follow up L PROJECT MANAGER Encounter Details Date Type Department Care Team Description 09/16/2021 Orders Only Department of Roxanne Lanza Otorhinolaryngology in AMAYA Gillis, C.N.P. [place], [place] [address] [place] [address] 200 [place] [phone] (Wo rk) Social History Tobacco Use Types [...] do you attend rastafarian or Never 2018 protestant services? Do you [...] Radiology Mark Eastman M.D., M.S. [address] [place] [phone] 04/26/2022 Office Visit Otorhinolaryngology Roxanne Lanza, TAX LAWYER, C.N.P. [address] [place] [phone] 04/28/2022 Appointment Radiation Oncology Ursula Aguirre M.D. [address] [place] [phone] Scheduled Referrals Name Type Priority Associated Order Schedule Diagnoses Otorhinolaryngology office Outpatient Routine E xpected: visit (clinic) Referral 09/23/2021 (Approximate), Expires: 12/14/2022 documented as of this encounter Visit Diagnoses Not on filedocumented in this encounter
--- OUTSIDE RECORDS SUMMARY | 2022-04-05 09:20 | XMS_ITS | Encounter Summary ---
:1955 Author Organization [facility] Address [address] [place] [address] Care Team Providers Name Role Phone Unavailable Primary Care Provider Unavailable Reason for Referral Outpatient (Routine) - Closed Specialty Diagnoses / Procedures Referred By Contact Refer red To Contact Radiation Oncology Ursula [facility]irre [facility] M.D. [address] [place] [phone] Referral ID Status Reason Start Date Expiration Date Visits Requ ested Visits Authorized [id number] Closed 09/10/2021 09/10/2022 1 1 OM LEATHER PRODUCTS MAKER Reason for Visit Outpatient (Routine) - Closed Specialty Diagnoses / Procedures Referred By Contact Refer red To Contact Radiation Oncology Ursula Aguirre [facility] M.D. [address] [place] [phone] Referral ID Status Reason Start Date Expiration Date Visits Requ ested Visits Authorized [id number] Closed 09/10/2021 09/10/2022 1 1 Encounter Details Date Type Department Care Team Description 09/17/2021 Hospital Encounter Department of Ursula Aguirre Neoplasm Of Radiation Oncology Kimberley Bacon Supraglottic (HCC) in [place], [address] [place] [address] (Primary Dx) [place], [place] [address] [facility] [address] [place], [place] [phone] (Work) [phone] Social History Tobacco Use Types Packs/Day Years [...] do you attend rastafari or Never 2018 baptist services? Do you belong to any clubs [...] Comments Blood Pressure 142/74 09/17/2021 8:57 AM CUSTOM LEATHER PRODUCTS MAKER Pulse 92 09/17/2021 8:57 AM CUSTOM LEATHER PRODUCTS MAKER Temperature 36.4 ??C (97.6 ??F) 09/17/2021 8:57 AM CUSTOM LEATHER PRODUCTS MAKER Respiratory Rate - - Oxygen Saturation - - Inhaled Oxygen Concentration - - Weight 88.3 kg (194 lb 10.7 oz) 09/17/2021 8:57 AM CUSTOM LEATHER PRODUCTS MAKER Height - - Body Mass Index 32.24 [...] 2019: ??Appointment with Dr. Darryl Grayson???[facility]. ??Physical examination with flexible laryngoscopy revealed a large fungating mass overlying the posterior left arytenoid that appeared fairly extensive, extending over to the right arytenoid into the piriform sinus. ?? Vocal cords move normally. ??Patient did have some shotty adenopathy on the left side. ??Ordered CT scan and then arrange referral to [facility]. 4. February 12, 2019: ??CT scan of [...] Hung Mabry and Dr. Frank Arrieta??at [facility]. ??Physical examination revealed an exophytic mass of [...] will be referred to Radiation Oncology in [place]. 8. March 13, 2019: ??Follow-up appointment with Dr. Arrieta and Dr. Mabry who discussed treatment options including total laryngectomy versus radiation therapy. ??They were not able to offer partial laryngectomy given her lung disease and possible aspiration. ?? 9. March 15, 2019: ??Phone call with Dr. Tapia with the patient's [id number] reported that the patient had decided to undergo radiation treatment in [place]. ??She will have a follow-up abdominal MRI at [facility]. ??The patient will follow-up with her primary [...] has been ordered to be completed at [facility]. We will contact her with the result. She is planning to proceed with abdominal aortic aneurysm repair in the near future and has pre-op appointments in [place] on September 22, 2021. She is also scheduled for an ENT appointment in [place] on October 02, 2021 for evaluation prior [...] Summer Pérez P.A.-C., M.S. 09/17/2021 10:49 AM [facility] [address] [place] [address] OM LEATHER PRODUCTS MAKER Associated attestation - Usrula Aguirre M.D. - 09/17/2021 2:51 PM CUSTOM LEATHER PRODUCTS MAKER I saw and evaluated the patient and [...] for her aneurysm. [facility]. We will see her back in 6 months. Their questions were answered, and they were comfortable with this plan. Usrula Aguirre M.D., 09/17/2021 documented in this encounter Plan of Treatment Upcoming Encounters Date Type Specialty Care Team Description 04/22/2022 Clinical Admitting/Central Communication Scheduling 04/26/2022 Appointment Radiology Mark Eastman M.D., M.S. [address] [place] [phone] 04/26/2022 Office Visit Otorhinolaryngology Roxanne Lanza APRN, C.N.P. [address] [place] [phone] 04/28/2022 Appointment Radiation Oncology Ursula Aguirre M.D. [address] [place] [phone] Scheduled Referrals Name Type Priority Associated Order Schedule Diagnoses Radiation Oncology Outpatient Referral Routine On ce for 1 office visit Occurrences sta rting (clinic) 09/17/2021 unti l 09/17/2021 documented as of this encounter Results (ABNORMAL) Thyroid Function [place] (09/17/2021 10:38 AM CUSTOM LEATHER PRODUCTS MAKER) P athologist Signature TSH, Sensitive 17.4 (H) 0.3 - 4.2 09/17/2021 [facility] mIU/L 1:30 PM CUSTOM LEATHER PRODUCTS MAKER Specimen Anatomical Collection Method Collection Time Receive d Time (Source) Location / / Volume Laterality Blood (Blood, 09/17/2021 10:38 09/17/2021 Venous) AM CUSTOM LEATHER PRODUCTS MAKER 12:44 PM CUSTOM LEATHER PRODUCTS MAKER Summer Pérez P.A.-C., M.S. 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
--- OUTSIDE RECORDS SUMMARY | 2022-04-05 09:20 | XMS_ITS | Encounter Summary ---
:1955 Author Organization [facility] Address [address] [place] [address] Care Team Providers Name Role Phone Unavailable Primary Care Provider Unavailable Reason for Referral MRI/CAT/PET Scan (Routine) - Authorized Specialty Diagnoses / Procedures Referred By Contact Refer red To Contact Radiology Diagnoses Malignant Neoplasm Of Supraglottic (HCC) Roxanne Lanza, [facility] Procedures CT Neck Soft Tissue with IV Contrast WELLNESS PROGRAM COORDINATOR, C.N.P. [address] [place] [phone] Referral ID Status Reason Start Date Expiration Date Visits V isits Requested Authorized [id number] Authorized 10/16/2021 10/16/2022 1 1 utpatient (Routine) - Authorized Specialty Diagnoses / Procedures Referred By Contact Refer red To Contact Otorhinolaryngology Roxanne Lanza Roches [facility] Toño CONDE, C.N.P. [address] [place] [phone] Referral ID Status Reason Start Date Expiration Date Visits V isits Requested Authorized [id number] Authorized 10/16/2021 10/16/2022 1 1 ON FEEDER Reason for Visit Outpatient (Routine) - Closed Specialty Diagnoses / Procedures Referred By Contact Refer red To Contact Otorhinolaryngology Roxanne Lanza [facility] WELLNESS PROGRAM COORDINATOR, C.N.P. [address] [place] [address] Referral ID Status Reason Start Date Expiration Date Visits Requ ested Visits Authorized [id number] Closed 09/16/2021 09/16/2022 1 1 Encounter Details Date Type Department Care Team Description 10/16/2021 Office Visit Department of [place], Malignant Neop lasm Otorhinol[place]ology in [facility] [place] WELLNESS PROGRAM COORDINATOR, C.N.P. ([facility]) (Primary Dx) [address] [facility] [address] [place] [address] [place], [place] [phone] Social History Tobacco Use Types Packs/Day Years [...] do you attend mormonism or Never 2018 tenriism services? Do you [...] and TM's normal, scant cerumen bilaterally Nose: [place] and moist Oral Cavity: [place] and moist. Mucous membranes intact. Edentulous. Upper [...] plan; patient expressed understanding of the content. ON FEEDER documented in this encounter Plan of Treatment Upcoming Encounters Date Type Specialty Care Team Description 04/22/2022 Clinical Admitting/Central Communication Scheduling 04/26/2022 Appointment Radiology Mark Eastman M.D., M.S. [address] [place] [phone] 04/26/2022 Office Visit Otorhinolaryngology Roxanne Lanza APRN, C.N.P. [address] [place] [phone] 04/28/2022 Appointment Radiation Oncology Ursula Aguirre M.D. [address] [place] [phone] Scheduled Orders Name Type Priority Associated Diagnoses [...]
--- OUTSIDE RECORDS SUMMARY | 2022-04-05 09:20 | XMS_ITS | Encounter Summary ---
:1955 Author Organization [facility] Address [address] [place] [address] Care Team Providers Name Role Phone Unavailable Primary Care Provider Unavailable Reason for Referral Outpatient (Routine) - Closed Specialty Diagnoses / Procedures Referred By Contact Refer red To Contact Radiation Oncology Ursula Aguirre [facility] M.D. [address] [place] [address] Referral ID Status Reason Start Date Expiration Date Visits Requ ested Visits Authorized [id number] Closed 09/10/2021 09/10/2022 1 1 ED PRODUCTS INSPECTOR TRIMMER Encounter Details Date Type Department Care Team Description 09/10/2021 Orders Only Department of Radiation Viry Carter RLanny Oncology in [place], [address] [place] [address] [facility] [phone] [place] [address] [phone] Social History Tobacco Use Types Packs/Day Years [...] do you attend shinto or Never 2018 rastafari services? Do you belong to any clubs or No 02/21/2019 organizations such as shinto groups, unions, [employer] or athletic groups, or school groups? How [...] Radiology Mark Eastman M.D., M.S. [address] [place] [phone] 04/26/2022 Office Visit Otorhinolaryngology Roxanne Lanza APRN, C.N.P. [address] [place] [phone] 04/28/2022 Appointment Radiation Oncology Ursula Aguirre M.D. [address] [place] [phone] Scheduled Referrals Name Type Priority Associated Diagnoses Order S chedule Radiation Oncology Outpatient Referral Routine Ex pected: office visit 09/10/2021 (clinic) (Approximate), Expires: 12/09/2022 documented as of this encounter Visit Diagnoses Not on filedocumented in this encounter
--- OUTSIDE RECORDS SUMMARY | 2022-04-05 09:20 | XMS_ITS | Encounter Summary ---
:1955 Author Organization [facility] Address [address] [place] [address] Care Team Providers Name Role Phone Unavailable Primary Care Provider Unavailable Encounter Details Date Type Department Care Team Description 09/17/2021 Clinical Communication Department of Radiation Kareem Pérez, Oncology in [place], P.A.-Estefanía., .S. [place] [address] [place] [address] [place] [phone] Social History Tobacco Use Types Packs/Day Years [...] do you attend orthodox or Never 2018 rastafarian services? Do you [...] Pérez P.A.-C., M.S. - 09/17/2021 3:00 PM BULL WHEEL WORKER TSH: 17.4 mIU/L I called and spoke to the patient's [id number], Darlin, today as this is the only [...] like the prescription sent to [facility] in [place]. We also discussed re-checking thyroid lab work in 6 weeks, which I will order to be done again at [facility]. Darlin was in agreement with the plan and her questions were answered. I asked for her or the patient to call us back with any further questions or concerns. She verbally expressed her understanding of the plan. Summer Pérez P.A.-C. WHEEL WORKER documented in this encounter Plan of Treatment Upcoming Encounters Date Type Specialty Care Team Description 04/22/2022 Clinical Admitting/Central Communication Scheduling 04/26/2022 Appointment Radiology Mark Eastman M.D., M.S. [address] [place] [phone] 04/26/2022 Office Visit Otorhinolaryngology Roxanne Lanza, COORDINATE MEASURING MACHINE TECHNICIAN, C.N.P. [address] [place] [phone] 04/28/2022 Appointment Radiation Oncology Ursula Aguirre M.D. [address] [place] [phone] documented as of this encounter Results (ABNORMAL) Thyroid Function [place] (10/29/2021 12:47 PM CDT) athologist Signature TSH, Sensitive 7.0 (H) 0.3 - 4.2 10/29/2021 [place] mIU/L 5:10 PM CDT Specimen Anatomical Collection Method Collection Time Receive d Time (Source) Location / / Volume Laterality Blood (Blood, 10/29/2021 12:47 10/29/2021 3:29 Venous) PM CDT PM CDT Summer Pérez P.A.-C., M.S. LAB BLOOD ADD-ON Performing Organization Address City/State/ZIP Code Phon e Number [facility]- [address] [place] [address] [facility] [place] [address] System in [place] [address] documented in this encounter Visit Diagnoses Diagnosis Hypothyroidism Secondary - Primary documented in this encounter
--- OUTSIDE RECORDS SUMMARY | 2022-04-05 09:20 | XMS_ITS | Encounter Summary ---
:1955 Author Organization [facility] Address [address] [place] [address] Care Team Providers Name Role Phone Unavailable Primary Care Provider Unavailable Encounter Details Date Type Department Care Team Description 09/22/2021 Hospital Encounter Department of Jaren, Aneurysm Abdominal Laboratory Medicine Mark Frederick M.D., Aort ic Without and Pathology, M.S. Rupture ([facility]) [place], [place] [address] [place] [phone] [place] [address] [place], [place] (Work) [phone] Social History Tobacco Use Types Packs/Day Years [...] do you attend adventism or Never 2018 yazdanism services? Do you [...] to pay for the very basics like Fracturew hat hard 02/21/2019 food, housing, medical care, [...] Radiology Mark Eastman M.D., M.S. [address] [place] [phone] 04/26/2022 Office Visit Otorhinolaryngology Roxanne Lanza, SAP ABAP DEVELOPER, C.N.P. [address] [place] [phone] 04/28/2022 Appointment Radiation Oncology Ursula Aguirre M.D. [address] [place] [phone] documented as of this encounter Procedures Procedure Name Priority Date/Time Associated Diagnosis Comme nts LIPID PANEL, S Routine 09/22/2021 10:21 AM Aneurysm Abdominal Results for this CIGAR PACKER AND SORTER Aortic Without procedure are in Rupture (HCC) the results section. HEPATIC FUNCTION Routine 09/22/2021 10:21 AM Aneurysm Abdomina l Results for this PANEL, S CIG[employer] PACKER [employer] SORTER Aortic Without procedure are in Rupture (HCC) the results section. CBC WITH Routine 09/22/2021 10:21 AM Aneurysm Abdominal Re sults for this DIFFERENTIAL, B CIG[employer] P[employer]ER [employer] SORTER Aortic Without procedure are in Rupture (HCC) the results section. TYPE AND SCREEN Routine 09/22/2021 10:21 AM Aneurysm Abdominal Results for this CIG[employer] PACKER [employer] SORTER Aortic Without procedure are in Rupture (HCC) the results section. BASIC METABOLIC Routine 09/22/2021 10:21 AM Aneurysm Abdominal Results for this PANEL, S/P CIGAR PACKER AND SORTER Aortic Without procedure are in Rupture (HCC) the results section. documented in this encounter Results Type and Screen (with reflex Antibody ID) (09/22/2021 10:21 AM CIGAR PACKER AND SORTER) Patholo gist Method Time Signature ABORh A Pos Not 09/22/2021 ETRM applicable 4:15 PM CIGAR PACKER AND SORTER Antibody Negative Negative 09/22/2021 ETRM Screen 4:26 PM CIGAR PACKER AND SORTER Type & Screen 11/20/2021 09/22/2021 ETRM Expiration 23:59 4:15 PM CIGAR PACKER AND SORTER Testing Elizabeth DEFAULT 09/22/2021 ETRM Location 10:52 AM CIGAR PACKER AND SORTER Specimen Anatomical Collection Method Collection Time Receive d Time (Source) Location / / Volume Laterality Blood (Blood, 09/22/2021 10:21 09/22/2021 Venous) AM CIGAR PACKER AND SORTER 10:52 AM CIGAR PACKER AND SORTER Mark Eastman M.D., M.S. LAB BLOOD BANK TEST ORD ERABLES Performing Organization Address City/State/ZIP Code Phon e Number [facility] - [address] [place], [place] [address] [facility] [place] [place] [address] Laboratories-[facility] [place] [address] (ABNORMAL) Lipid Panel (09/22/2021 10:21 AM CIGAR PACKER AND SORTER) P athologist Signature Cholesterol, 265 (H) mg/dL 09/22/2021 DTL Total 11:30 AM CIGAR PACKER AND SORTER Comment: ----REFERENCE VALUE---- Desirable: < 200 Borderline high: 200 - 239 High: > or = 240 Triglycerides 390 (H) mg/dL 09/22/2021 11:30 AM CIGAR PACKER AND SORTER DT L Comment: ----REFERENCE VALUE---- Normal: <150 Borderline high: 150-199 High: 200-499 Very high: > or =500 Cholesterol, HDL, S 37 (L) >=50 mg/dL 09/22/2021 11:30 AM CIGAR PACKER AND SORTER DTL Calculated LDL 150 (H) mg/dL 09/22/2021 11:30 AM CIGAR PACKER AND SORTER D TL Comment: ----REFERENCE VALUE---- Desirable: <100 mg/dL Above Desirable: 100-129 mg/dL Borderline High: 130-159 mg/dL High: 160-189 mg/dL Very High: >=190 mg/dL Cholesterol, Non-HDL, Calculated 228 (H) mg/dL 022 11:30 AM CIGAR PACKER AND SORTER DTL Comment: ----REFERENCE VALUE---- Desirable: <130 Above Desirable: 130-159 Borderline high: 160-189 High: 190-219 Very high: > or =220 Specimen Anatomical Collection Method Collection Time Receive d Time (Source) Location / / Volume Laterality Blood (Blood, 09/22/2021 10:21 09/22/2021 Venous) AM CIGAR PACKER AND SORTER 11:11 AM CIGAR PACKER AND SORTER Mark Eastman M.D., M.S. LAB BLOOD ADD-ON Performing Organization Address City/State/ZIP Code Phon e Number [facility] - [address] [place] [address] [facility] [place] [address] Laboratories-[address] Hepatic Function Panel (09/22/2021 10:21 AM CIGAR PACKER AND SORTER) [facility] gist Method Time Signature Bilirubin, Total, S 0.3 <=1.2 09/22/2021 DTL mg/dL 11:29 AM CIGAR PACKER AND SORTER Bilirubin, Direct, S <0.2 0.0 - 0.3 09/22/2021 DTL mg/dL 11:29 AM CIGAR PACKER AND SORTER Aspartate 15 8 - 43 09/22/2021 DTL Aminotransferase U/L 11:29 AM CIGAR PACKER [employer] SORTER (AST), S Alanine 13 7 - 45 09/22/2021 DTL Aminotransferase U/L 11:29 AM CIGAR PACKER [employer] SORTER (ALT), S Alkaline 69 35 - 104 09/22/2021 DTL Phosphatase, S U/L 11:29 AM CIG[employer] P[employer]ER [employer] SORTER Albumin, S 4.3 3.5 - 5.0 09/22/2021 DTL g/dL 11:29 AM CIGAR PACKER [employer] SORTER Protein, Total, S 7.1 6.3 - 7.9 09/22/2021 DTL g/dL 11:29 AM CIGAR PACKER AND SORTER Specimen Anatomical Collection Method Collection Time Receive d Time (Source) Location / / Volume Laterality Blood (Blood, 09/22/2021 10:21 09/22/2021 Venous) AM CIGAR P[employer]ER AND SORTER 11:11 AM CIGAR PACKER AND SORTER Mark Eastman M.D., M.S. LAB BLOOD ADD-ON Performing Organization Address City/State/ZIP Code Phon e Number [facility] - 200 [place], [place] [address] [facility] [place] [address] Laboratories-[facility] [address] [facility] (ABNORMAL) CBC with Differential, Blood (09/22/2021 10:21 AM CIGAR PACKER AND SORTER) [facility] Method Time Signature Hemoglobin 11.2 (L) 11.6 - 09/22/2021 DTL 15.0 g/dL 10:59 AM CIGAR PACKER AND SORTER Hematocrit 35.2 (L) 35.5 - 09/22/2021 DTL 44.9 % 10:59 AM CIGAR P[employer]ER AND SORTER Erythrocytes 3.87 (L) 3.92 - 09/22/2021 DTL 5.13 10:59 AM CIGAR PACKER AND SORTER x10(12)/L MCV 91.0 78.2 - 09/22/2021 DTL 97.9 fL 10:59 AM CIGAR PACKER AND SORTER RBC Distrib Width 15.4 12.2 - 09/22/2021 DTL 16.1 % 10:59 AM CIGAR PACKER AND SORTER Platelet Count 271 157 - 371 09/22/2021 DTL x10(9)/L 10:59 AM CIG[employer] P[employer]ER [employer] SORTER Leukocytes 5.3 3.4 - 9.6 09/22/2021 DTL x10(9)/L 10:59 AM CIGAR P[employer]ER [employer] SORTER Neutrophils 3.56 1.56 - 09/22/2021 DTL 6.45 10:59 AM CIGAR PACKER [employer] SORTER x10(9)/L Lymphocytes 0.82 (L) 0.95 - 09/22/2021 DTL 3.07 10:59 AM CIGAR PACKER AND SORTER x10(9)/L Monocytes 0.48 0.26 - 09/22/2021 DTL 0.81 10:59 AM CIGAR PACKER AND SORTER x10(9)/L Eosinophils 0.35 0.03 - 09/22/2021 DTL 0.48 10:59 AM CIG[employer] PACKER AND SORTER x10(9)/L Basophils 0.04 0.01 - 09/22/2021 DTL 0.08 10:59 AM CIGAR PACKER AND SORTER x10(9)/L Specimen Anatomical Collection Method Collection Time Receive d Time (Source) Location / / Volume Laterality Blood (Blood, 09/22/2021 10:21 09/22/2021 Venous) AM CIG[employer] P[employer]ER AND SORTER 10:49 AM CIGAR PACKER AND SORTER Mark Eastman M.D., M.S. LAB BLOOD ADD-ON Performing Organization Address City/State/ZIP Code Phon e Number [facility] - 200 [place], [place] [address] [facility] [place] [address] Laboratories-[facility] 200 [facility] (ABNORMAL) Basic Metabolic Panel (09/22/2021 10:21 AM CIGAR PACKER AND SORTER) P athologist Signature Potassium, S 4.7 3.6 - 5.2 09/22/2021 DTL mmol/L 11:29 AM CIGAR PACKER AND SORTER Sodium, S 135 135 - 145 09/22/2021 DTL mmol/L 11:29 AM CIGAR P[employer]ER AND SORTER Chloride, S 98 98 - 107 09/22/2021 DTL mmol/L 11:29 AM CIG[employer]ER AND SORTER Bicarbonate, S 27 22 - 29 09/22/2021 DTL mmol/L 11:29 AM CIG[employer]ER AND SORTER Anion Gap 10 7 - 15 09/22/2021 DTL 11:29 AM CIGAR P[employer]ER AND SORTER BUN (Blood 24 (H) 6 - 21 09/22/2021 DTL Urea mg/dL 11:29 AM CIG[employer] P[employer]ER AND SORTER Nitrogen), S Creatinine, S 1.11 (H) 0.59 - 09/22/2021 DTL 1.04 mg/dL 11:29 AM [employer]IG[employer]ER [employer] SORTER eGFR-Non 52 (L) >=60 09/22/2021 DTL Black/ mL/min/BSA 11:29 AM CIGAR PACKER AND SORTER Bahraini Comment: ----ADDITIONAL INFORMATION---- Estimated GFR calculated using the 2009 CKD_EPI creatinine equation. eGFR-Black/ 60 >=60 mL/min/BSA 2021 11:29 AM CIGAR PACKER AND SORTER DTL Comment: ----ADDITIONAL INFORMATION---- Estimated GFR calculated using the 2009 CKD_EPI creatinine equation. Calcium, Total, S 9.7 8.8 - 10.2 mg/dL 09/22/2021 11:2 9 AM CIGAR PACKER AND SORTER DTL Glucose, S 107 70 - 140 mg/dL 09/22/2021 11:29 AM CIGAR PACKER AND SORTER DTL Specimen Anatomical Collection Method Collection Time Receive d Time (Source) Location / / Volume Laterality Blood (Blood, 09/22/2021 10:21 09/22/2021 Venous) AM CIG[employer]ER [employer] SORTER 11:11 AM CIGAR PACKER AND SORTER Mark Eastman M.D., M.S. LAB BLOOD ADD-ON Performing Organization Address City/State/ZIP Code Phon e Number [facility] - [address] [place], [place] [address] [facility] [place] [address] [facility] [address] documented in this encounter Visit Diagnoses Diagnosis Aneurysm Abdominal Aortic Without Ruptur e (HCC) documented in this encounter
--- OUTSIDE RECORDS SUMMARY | 2022-04-05 09:20 | XMS_ITS | Encounter Summary ---
:1955 Author Organization [facility] Address [address] [place] [address] Care Team Providers Name Role Phone Unavailable Primary Care Provider Unavailable Encounter Details Date Type Department Care Team Description 09/17/2021 Hospital Encounter Department of Summer Pérez Maligna nt Neoplasm Of Laboratory Medicine P.Marilou., M.S . Supraglottic (HCC) in [place], [address] [place] [address] [address] [facility] [address] [place], [place] [phone] (Work) [phone] Social History Tobacco Use Types Packs/Day Years [...] do you attend uatsdin or Never 2018 synagogue services? Do you belong to any clubs [...] Appointment Radiology Mark Eastman M.D., M.S. [address] [place] [phone] 04/26/2022 Office Visit Otorhinolaryngology Roxanne Lanza, CHRISTMAS TREE FARMER, C.N.P. [address] [place] [phone] 04/28/2022 Appointment Radiation Oncology Ursula Aguirre M.D. [address] [place] [phone] documented as of this encounter Procedures Procedure Name Priority Date/Time Associated Diagnosis Comme nts MI MICROSOMAL AB Routine 09/17/2021 10:38 Results for this EA/TPO AM LEAD TRAINER procedure are i n the results section. MI T4 FREE Routine 09/17/2021 10:38 Results for this AM LEAD TRAINER procedure are i n the results section. THYROID FUNCTION Routine 09/17/2021 10:38 Malignant Neoplasm O f Results for this CASCADE, S AM LEAD TRAINER Supraglottic (HCC) procedure are in the results section. documented in this encounter Results T4 (Thyroxine), Free, Serum (09/17/2021 10:38 AM LEAD TRAINER) P athologist Signature T4 (Thyroxine), 1.0 0.9 - 1.7 09/17/2021 [place] Free, S ng/dL 2:06 PM LEAD TRAINER Comment: Biotin has been identified by the [...] Volume Laterality Blood 09/17/2021 10:38 09/17/2021 AM LEAD TRAINER 12:44 PM LEAD TRAINER Summer Pérez P.A.-C., M.S. LAB BLOOD ADD-ON Performing Organization Address City/State/ZIP Code Phon e Number [facility]- [address] [place] [address] [facility] [address] System in [place] [address] [place] [address] Thyroperoxidase (TPO) Antibodies, Serum (09/17/2021 10:38 AM LEAD TRAINER) Patholo gist Method Time Signature Thyroperoxidase Ab, 1.4 <9.0 09/18/2021 DTL S IU/mL 8:57 AM LEAD TRAINER Specimen Anatomical Collection Method Collection Time Receive d Time (Source) Location / / Volume Laterality Blood 09/17/2021 10:38 09/18/2021 8:15 AM LEAD TRAINER AM LEAD TRAINER Summer Pérez P.A.-C., M.S. LAB BLOOD NON ADD-ON Performing Organization Address City/State/ZIP Code Phon e Number [facility] - [address] [place], [place] [address] [facility] [place] [address] Laboratories-[facility] [address] (ABNORMAL) Thyroid Function [place] (09/17/2021 10:38 AM LEAD TRAINER) P athologist Signature TSH, Sensitive 17.4 (H) 0.3 - 4.2 09/17/2021 [place] mIU/L 1:30 PM LEAD TRAINER Specimen Anatomical Collection Method Collection Time Receive d Time (Source) Location / / Volume Laterality Blood (Blood, 09/17/2021 10:38 09/17/2021 Venous) AM LEAD TRAINER 12:44 PM LEAD TRAINER Summer Pérez P.A.-C., M.S. LAB BLOOD ADD-ON Performing Organization Address City/State/ZIP Code Phon e Number [facility]- [address] [place] [address] [place] [address] System in [place] [address] documented in this encounter Visit Diagnoses Diagnosis Malignant Neoplasm Of Supraglottic (HCC) documented in this encounter
--- OUTSIDE RECORDS SUMMARY | 2022-04-05 09:20 | XMS_ITS | Encounter Summary ---
:1955 Author Organization [facility] Address [address] [place] [address] Care Team Providers Name Role Phone Unavailable Primary Care Provider Unavailable Reason for Referral Outpatient (Routine) - Closed Specialty Diagnoses / Procedures Referred By Contact Refer red To Contact Vascular Medicine Diagnoses Aneurysm Abdominal Aortic Without Rupture (HCC) Preoperative Examination Cardiovascular Reynaldo Alfaro [place] Regi on M.DShital [address] [place] [phone] Referral ID Status Reason Start Date Expiration Date Visits Requ ested Visits Authorized [id number] Closed 09/22/2021 09/22/2022 1 1 Scheduling Instructions Please schedule for October 16, 2021 after carotid ultrasound. ING TORCH OPERATOR Outpatient (Routine) - Closed Specialty Diagnoses / Procedures Referred By Contact Refer red To Contact Diagnoses Preoperative Examination Reynaldo Patel [place] Regi on Procedures US Carotid Bilateral M.D. [address] [place] [phone] Referral ID Status Reason Start Date Expiration Date Visits Requ ested Visits Authorized [id number] Closed 09/22/2021 09/22/2022 1 1 ING TORCH OPERATOR Reason for Visit Outpatient (Routine) - Closed Specialty Diagnoses / Procedures Referred By Contact Refer red To Contact Vascular Medicine Diagnoses Aneurysm Abdominal Aortic Without Rupture (HCC) Mark Eastman [place] M.D., M.S. [address] [place] [phone] Referral ID Status Reason Start Date Expiration Date Visits Requ ested Visits Authorized [id number] Closed 09/15/2021 09/15/2022 1 1 Encounter Details Date Type Department Care Team Description 09/22/2021 Office Visit Department of Costopoulos, Aneurysm Abdom inal Aortic Without Rupture (HCC) (Primary Dx); Vascular Medicine in [place] Yao Hypertension Essential Primary; [place], [place] 200 [facility] Hyperlipidemia; 200 [place], [place] Smoking Tobacco Use Personal History; [place] [address] Preoperative Examination Cardiovascular [id number] Social History Tobacco Use Types Packs/Day Years [...] do you attend bahai or Never 2018 jewish services? Do you [...] Comments Blood Pressure 147/83 09/22/2021 3:25 PM CUTTING TORCH OPERATOR Pulse 86 09/22/2021 3:25 PM CUTTING TORCH OPERATOR Temperature - - Respiratory Rate - - Oxygen Saturation - - Inhaled Oxygen Concentration - - Weight 87.2 kg (192 lb 3.9 oz) 09/22/2021 3:21 PM CUTTING TORCH OPERATOR Height 166.3 cm (5' 5.47) 09/22/2021 3:21 PM CUTTING TORCH OPERATOR Body Mass Index 31.53 09/22/2021 3:21 PM CUTTING TORCH OPERATOR documented in this encounter Consult Notes Reynaldo Alfaro M.D. - 09/22/2021 3:15 PM CST REFERRAL SOURCE Mark Eastman M.D., M.S. [address] [place] [phone] SUBJECTIVE CHIEF COMPLAINT / REASON FOR VISIT HISTORY OF PRESENT ILLNESS Ms. Narayan is a 66 y.o. female that I am seeing today for an opinion and recommendations on an abdominal aortic aneurysm. The patient has been referred by Mark Eastman M.D., M.S. Mrs. Narayanis and is accompanied today by a [id number]. Mrs. Narayan is currently seeing Dr. Eastman [...] of 11.2 and a platelet count of [id number]. Her sodium was 135 with a potassium [...] of care: 30 minutes. Reynaldo Alfaro M.D. ING TORCH OPERATOR documented in this encounter Plan of Treatment Upcoming Encounters Date Type Specialty Care Team Description 04/22/2022 Clinical Admitting/Central Communication Scheduling 04/26/2022 Appointment Radiology Mark Eastman M.D., M.S. [address] [place] [phone] 04/26/2022 Office Visit Otorhinolaryngology Roxanne Lanza, BARREL TESTER, C.N.P. [address] [place] [phone] 04/28/2022 Appointment Radiation Oncology Ursula Aguirre M.D. [address] [place] [phone] Scheduled Referrals Name Type Priority Associated Diagnoses Order S chedule Vascular Medicine Outpatient Referral Routine Aneurysm Abdomin al Expected: office visit Aortic Without Rupture 09/22 (clinic) General (HCC) (Approximate), Preoperative Expires: Examination 12/20/2022 Cardiovascular documented as of this encounter Results US Carotid Bilateral (10/16/2021 10:17 AM CUTTING TORCH OPERATOR) Anatomical Region Laterality Modality Head and Neck, Ultrasound RST LOS, Ultrasound ARZ LOS, Bilat eral Ultrasound Neuroradiology FLA [facility] Specimen (Source) Anatomical Collection Method Collection Time Re ceived Time Location / / Volume Laterality 10/16/2021 10:45 AM CUTTING TORCH OPERATOR Impressions 10/16/2021 10:49 AM CUTTING TORCH OPERATOR 1. 50-69% diameter stenosis in the proximal left internal carotid artery. 2. No evidence for significant right-daly ed carotid artery stenosis. Narrative 10/16/2021 10:49 AM CUTTING TORCH OPERATOR EXAM: US CAROTID BILATERAL Exam performed with [...] normal distal ICA in accordance with [place] Symptomatic Carotid Endar terectomy Trial (NASCET). Procedure [...] normal distal ICA in accordance with [place] Symptomatic Carotid Endar terectomy Trial (NASCET). IMPRESSION: [...]
--- OUTSIDE RECORDS SUMMARY | 2022-04-05 09:20 | XMS_ITS | Encounter Summary ---
:1955 Author Organization [facility] Address [address] [place] [address] Care Team Providers Name Role Phone Unavailable Primary Care Provider Unavailable Reason for Referral Outpatient (Routine) - Closed Specialty Diagnoses / Procedures Referred By Contact Refer red To Contact Diagnoses Aneurysm Abdominal Aortic Without Rupture (HCC) Mark Eastman [place] Procedures DX Chest AP or PA and Lateral 2 Views M.Chrissy., M.S. [address] [place] [phone] Referral ID Status Reason Start Date Expiration Date Visits Requ ested Visits Authorized [id number] Closed 09/15/2021 09/15/2022 1 1 IC HEALTH MICROBIOLOGIST Reason for Visit Outpatient (Routine) - Closed Specialty Diagnoses / Procedures Referred By Contact Refer red To Contact Diagnoses Aneurysm Abdominal Aortic Without Rupture (HCC) Mark Eastman [place] Procedures DX Chest AP or PA and Lateral 2 Views M.Chrissy., M.S. [address] [place] [phone] Referral ID Status Reason Start Date Expiration Date Visits Requ ested Visits Authorized [id number] Closed 09/15/2021 09/15/2022 1 1 Encounter Details Date Type Department Care Team Description 09/22/2021 Hospital Encounter Department of Jaren, Aneurysm Abdominal Radiology, [place] Mark Frederick M.D., Aortic W [facility], in M.S. Rupture (HCC) [place], [address] [place] [address] 200 [facility] [phone] [place], [place] [phone] (Work) [phone] Social History Tobacco Use Types Packs/Day Years [...] do you attend muslim or Never 2018 mosque services? Do you [...] Radiology Mark Eastman M.D., M.S. [address] [place] [address] 04/26/2022 Office Visit Otorhinolaryngology Roxanne Lanza APRN, C.N.P. [address] [place] [phone] 04/28/2022 Appointment Radiation Oncology Ursula Aguirre M.D. [address] [place] [phone] documented as of this encounter Procedures Procedure Name Priority Date/Time Associated Comments Diagnosis DX CHEST AP OR PA RAD - Routine 09/22/2021 11:05 Aneurysm Resul ts for this AND LATERAL 2 (most inpatients AM PUBLIC HEALTH MICROBIOLOGIST Abdominal Aortic proced ure are in VIEWS and all Without Rupture the results outpatients) (HCC) section. documented in this encounter Results DX Chest AP or PA and Lateral 2 Views (09/22/2021 11:05 AM PUBLIC HEALTH MICROBIOLOGIST) Anatomical Region Laterality Modality Chest, Thoracic RST LOS, Thoracic ARZ LOS, Thoracic N/A Digital Radiography FLA LOS Specimen (Source) Anatomical Collection Method Collection Time Re ceived Time Location / / Volume Laterality 09/22/2021 11:14 AM PUBLIC HEALTH MICROBIOLOGIST Impressions 09/22/2021 11:36 AM PUBLIC HEALTH MICROBIOLOGIST Comparison PET/CT 06/12/2020. Prominent ascending aorta. Calcified tortuous aorta. Coronary calcification. Chest otherwise negative. Narrative 09/22/2021 11:36 AM PUBLIC HEALTH MICROBIOLOGIST EXAM: ??DX CHEST AP OR PA AND [...]
--- OUTSIDE RECORDS SUMMARY | 2022-04-05 09:21 | XMS_ITS | Encounter Summary ---
:1955 Author Organization [facility] Address [address] [place] [address] Care Team Providers Name Role Phone Unavailable Primary Care Provider Unavailable Reason for Visit Speech Pathology (Routine) - Closed Specialty Diagnoses / Procedures Referred By Contact Refer red To Contact Diagnoses Malignant Neoplasm Of Supraglottic (HCC) Summer Pérez P.A.-C., [facility] INTEGRATION TECHNICIAN Dysphagia evaluate and treat M.S. [address] [place] [phone] Referral ID Status Reason Start Date Expiration Date Visits Requ ested Visits Authorized [id number] Closed 10/15/2019 10/14/2020 1 1 Encounter Details Date Type Department Care Team Description 01/31/2020 Comprehensive Visit Department of Summer Pérez P.A.-C., M.S. [address] [place] [phone] Dysphagia Oropharyngeal Phase (Primary D x); Neurology in Parvin Mijares M.S., [facility]-INTEGRATION TECHNICIAN [address] [place] [phone] Malignant Neoplasm Of Supraglottic (HCC) [place], [place] [address] [place] [phone] Social History Tobacco Use Types Packs/Day [...] do you attend yarsanism or Never 2018 rastafarian services? Do you [...] this encounter Consult Notes Parvin Mijares M.S., CCC-INTEGRATION TECHNICIAN - 01/31/2020 2:45 PM CDT Speech Pathology [...] Narayan attends today's evaluation session with her [id number]. She is very pleased to report that [...] swallow Aspiration No, Yes, after the swallow [place] Lip Closure 0: No labial escape Tongue [...] in detail with the patient and her [id number]. With swallowprecautions, it is anticipated she will [...] Radiology Mark Eastman M.D., M.S. [address] [place] [phone] 04/26/2022 Office Visit Otorhinolaryngology Roxanne Lanza APRN, C.N.P. [address] [place] [phone] 04/28/2022 Appointment Radiation Oncology Ursula Aguirre M.D. [address] [place] [phone] documented as of this encounter Visit Diagnoses Diagnosis Dysphagia Oropharyngeal Phase - Primary Malignant Neoplasm Of Supraglottic (HCC) documented in this encounter
--- OUTSIDE RECORDS SUMMARY | 2022-04-05 09:21 | XMS_ITS | Encounter Summary ---
:1955 Author Organization [facility] Address [address] [place] [address] Care Team Providers Name Role Phone Unavailable Primary Care Provider Unavailable Encounter Details Date Type Department Care Team Description 01/30/2020 Clinical Communication Department of Parvin Mijares Neurology guanakito Crabtree M.S., CCC-CROWN PRESSER [place], [place] [address] [facility] [address] [place] [address] [phone] Social History Tobacco Use Types Packs/Day Years [...] do you attend rastafari or Never 2018 zoroastrianism services? Do you [...] Radiology Mark Eastman M.D., M.S. [address] [place] [phone] 04/26/2022 Office Visit Otorhinolaryngology Roxanne Lanza, FLEXO OPERATOR, C.N.P. [address] [place] [phone] 04/28/2022 Appointment Radiation Oncology Ursula Aguirre M.D. [address] [place] [phone] documented as of this encounter Visit Diagnoses Not on filedocumented in this encounter
--- OUTSIDE RECORDS SUMMARY | 2022-04-05 09:21 | XMS_ITS | Encounter Summary ---
:1955 Author Organization [facility] Address [address] [place] [address] Care Team Providers Name Role Phone Unavailable Primary Care Provider Unavailable Reason for Visit Reason Comments Feeding Tube Outpatient (Routine) - Closed Specialty Diagnoses / Procedures Referred By Contact Refer red To Contact Endocrinology Padma Vieira APRN, [place] [facility] C.N.P., M.S. [address] [place] [address] [phone] Referral ID Status Reason Start Date Expiration Date Visits Requ ested Visits Authorized [id number] Closed 01/30/2020 01/29/2021 1 1 Encounter Details Date Type Department Care Team Description 01/31/2020 Nurse Only Division of Endocrinology in Padma Pinedo APRN, C.N.P., M.S. [address] [place] [address] [phone] Feeding Tube [place], [place] Chio Whitaker S, R.N. [address] [place] [phone] [address] [place] [phone] Social History Tobacco Use Types Packs/Day [...] or relatives? How often do you attend evangelical or Never 2018 rastafarian services? Do you belong to any clubs or No 02/21/2019 organizations such as evangelical groups, unions, fraternal or athletic groups, or [...] PEG tube Tube size: 20 Tube brand: Vizibility Tube reference number: [id number] Connector type: Small [...] NA Special order tube: GI/IR supply chain director notified? NA PLAN Were [...] Radiology Mark Eastman M.D., M.S. [address] [place] [phone] 04/26/2022 Office Visit Otorhinolaryngology Roxanne Lanza, [employer]GER AUTOMATIC, C.N.P. [address] [place] [phone] 04/28/2022 Appointment Radiation Oncology Ursula Aguirre M.D. [address] [place] [phone] documented as of this encounter Visit Diagnoses [...]
--- OUTSIDE RECORDS SUMMARY | 2022-04-05 09:21 | XMS_ITS | Encounter Summary ---
:1955 Author Organization [facility] Address [address] [place] [address] Care Team Providers Name Role Phone Unavailable Primary Care Provider Unavailable Reason for Referral Outpatient (Routine) - Closed Specialty Diagnoses / Procedures Referred By Contact Refer red To Contact Radiation Oncology Summer [facility].-C., [facility] [address] [place] [phone] Referral ID Status Reason Start Date Expiration Date Visits Requ ested Visits Authorized [id number] Closed 03/14/2020 03/14/2021 1 1 Scheduling Instructions PET/CT and appointment with Dr. Aimee gonzalez in [place] Outpatient (Routine) - Closed Specialty Diagnoses / Procedures Referred By Contact Refer red To Contact Otorhinolaryngology Summer Pérez Kasperbauer, Jan L, P.A.-C., M.S. M.DShital [address] [facility] 200 [place] [phone] Referral ID Status Reason Start Date Expiration Date Visits Requ ested Visits Authorized [id number] Closed 03/14/2020 03/14/2021 1 1 Scheduling Instructions Schedule after PET/CT scan. COVID testin g needed if scope exam will be performed. Outpatient (Routine) - Closed Specialty Diagnoses / Procedures Referred By Contact Refer red To Contact Diagnoses Malignant Neoplasm Of Supraglottic (HCC) Summer Pérez P.A.-C., [place] Reg ion Procedures PET CT Skull to Thigh FDG [place] PET/CT TRUNK M.S. [address] [place] [phone] Referral ID Status Reason Start Date Expiration Date Visits Requ ested Visits Authorized [id number] Closed 03/14/2020 03/14/2021 1 1 Outpatient (Routine) - Closed Specialty Diagnoses / Procedures Referred By Contact Refer red To Contact Radiation Oncology Ursula Aguirre [facility] Milo Lundberg M.D. [address] [place] [phone] Referral ID Status Reason Start Date Expiration Date Visits Requ ested Visits Authorized [id number] Closed 11/29/2019 11/28/2020 1 1 Reason for Visit Outpatient (Routine) - Closed Specialty Diagnoses / Procedures Referred By Contact Refer red To Contact Radiation Oncology Ursula Aguirre [facility] Milo Lundberg M.D. [address] [place] [phone] Referral ID Status Reason Start Date Expiration Date Visits Requ ested Visits Authorized [id number] Closed 11/29/2019 11/28/2020 1 1 Encounter Details Date Type Department Care Team Description 03/14/2020 Hospital Encounter Department of Ursula Aguirre Neoplasm Of Radiation Oncology Kimberley Bacon Supraglottic (HCC) in [place], [address] [place] [address] (Primary Dx) [place], [place] 1821 [facility] [phone] [place], [place] [phone] (Work) [phone] Social History Tobacco Use Types Packs/Day Years [...] do you attend mandaeism or Never 2018 yarsanism services? Do you [...] 2019: ??Appointment with Dr. Darryl Grayson???[facility] at [facility]. ??Physical examination with flexible laryngoscopy revealed a large fungating mass overlying the posterior left arytenoid that appeared fairly extensive, extending over to the right arytenoid into the piriform sinus. ?? Vocal cords move normally. ??Patient did have some shotty adenopathy on the left side. ??Ordered CT scan and then arrange referral to [facility]. 4. February 12, 2019: ??CT scan of [...] Dr. Hung Mabry and Dr. Frank Arrieta??at [facility]. ??Physical examination revealed an exophytic mass of [...] will be referred to Radiation Oncology in [place]. 8. March 13, 2019: ??Follow-up appointment with Dr. Arrieta and Dr. Mabry who discussed treatment options including total laryngectomy versus radiation therapy. ??They were not able to offer partial laryngectomy given her lung disease and possible aspiration. ?? 9. March 15, 2019: ??Phone call with Dr. Tapia with the patient's rctsffti-wb-qbf reported that the patient had decided to undergo radiation treatment in [place]. ??She will have a follow-up abdominal MRI at [place]. ??The patient will follow-up with her primary [...] Pérez P.A.-C., M.S. 03/14/2020 1:49 PM CDT [facility] [address] [place] [address] Associated attestation - Ursula Aguirre M.D. - [...] 3 months. She will do this in [place] and see ENT. I will see her here in [place]. Her questions were answered; she was comfortable with this plan. I have spent 25 minutes with this patient today in which >50% was spent counseling and coordination of care. Ursula Aguirre M.D., 03/14/2020 documented in this encounter Plan of Treatment Upcoming Encounters Date Type Specialty Care Team Description 04/22/2022 Clinical Admitting/Central Communication Scheduling 04/26/2022 Appointment Radiology Mark Eastman M.D., M.S. [address] [place] [address] [phone] 04/26/2022 Office Visit Otorhinolaryngology Roxanne Lanza, FUEL YARD OPERATOR, C.N.P. [address] [place] [address] [phone] 04/28/2022 Appointment Radiation Oncology Ursula Aguirre M.D. [address] [place] [phone] Scheduled Referrals Name Type Priority Associated Order [...] RADIOPHARMACEUTICAL/MEDS: Route: intravenous fludeoxyglucose F 18 injection FDC (FDG F-18),9.21 millicurie TECHNIQUE: ??F-18 FDG PET/CT [...] RADIOPHARMACEUTICAL/MEDS: Route: intravenous fludeoxyglucose F 18 injection FDC (FDG F-18),9.21 millicurie TECHNIQUE: F-18 FDG PET/CT [...]
--- OUTSIDE RECORDS SUMMARY | 2022-04-05 09:21 | XMS_ITS | Encounter Summary ---
:1955 Author Organization [facility] Address [address] [place] [address] Care Team Providers Name Role Phone Unavailable Primary Care Provider Unavailable Encounter Details Date Type Department Care Team Description 03/12/2020 Hospital Encounter Department of Summer Pérez Encount For Laboratory Medicine PMassiel, M.S . Screening For Other in [address] Viral Diseases [place], [place] (COVID-19) [address] [address] [place], [place] [phone] (Work) [phone] Social History Tobacco Use Types Packs/Day Years [...] do you attend yazidism or Never 2018 muslim services? Do you [...] to pay for the very basics like [employer] hat hard 02/21/2019 food, housing, medical care, [...] Radiology Mark Eastman M.D., M.S. [address] [place] [address] 04/26/2022 Office Visit Otorhinolaryngology Roxanne Lanza, ALGORITHM DESIGN ENGINEER, C.N.P. [address] [place] [address] [phone] 04/28/2022 Appointment Radiation Oncology Ursula Aguirre M.D. [address] [place] [address] documented as of this encounter Procedures Procedure [...] RNA, V Asymptomatic (03/12/2020 12:21 PM CDT) [facility] [employer] Method Time Signature SARS-CoV-2 Swab, 03/12/2020 MKTO [...] is performed using the Aptima SARS-CoV-2 assay ([employer] which has received Emergency Use Authori zation (EUA) by the U.S. Food and Drug Administration. Fact sheets for this Emergency Use Autho rization (EUA) assay can be found at the following links: For Healthcare Providers: https://www.Mobile On Services a.gov/media/256980/download For Patients: https://www.fda.gov/media/ 033442/download Specimen Anatomical Collection Method Collection Time Receive d Time (Source) Location / / Volume Laterality Varies 03/12/2020 12:21 03/12/2020 3:40 (Nasopharynx) PM CDT PM CDT Summer Pérez P.A.-C., M.S. LAB MICROBIOLOGY - GENERAL O RDERABLES Performing Organization Address City/State/ZIP Code Phon e Number [facility]- [address] [place] [address] [place] [address] [address] SARS-CoV-2 Total Antibody, Serum (03/12/2020 11:40 AM CDT) [facility] Method Time Signature SARS-CoV-2 Negative Negative 03/12/2020 [...] was performed using the [employer] El [employer]ys [id number]-2 Reagent assay from [employer], which has received Emergency Use Authori zation(EUA) by the U.S. Food and Drug Administration . Fact sheets for this Emergency Use Autho rization (EUA) assay can be found at the following link s: For Healthcare Providers: https://www.fda.gov/media/019959/downloa d For Patients: https://www.fda.gov/media/009979/downloa d Specimen Anatomical Collection Method Collection Time Receive d Time (Source) Location / / Volume Laterality Blood (Blood, 03/12/2020 11:40 03/12/2020 7:12 Venous) AM CDT PM CDT Summer Pérez P.A.-C., M.S. LAB MICROBIOLOGY - BLOOD ORD [facility] Organization Address City/State/ZIP Code Phon e Number [facility]- [address] [place] [address] [place] [address] [address] documented in this encounter Visit Diagnoses Diagnosis Encounter For Screening For Other Viral Diseases (COVID-19) documented in this encounter Additional Health Concerns Infection Onset Date Last Indicated Resolved Time COVID19 Pending 03/12/2020 03/12/2020 03/12/2020 9:30 PM CDT documented as of this encounter
--- OUTSIDE RECORDS SUMMARY | 2022-04-05 09:21 | XMS_ITS | Encounter Summary ---
:1955 Author Organization [facility] Address [address] [place] [address] Care Team Providers Name Role Phone Unavailable Primary Care Provider Unavailable Reason for Visit Outpatient (Routine) - Closed Specialty Diagnoses / Procedures Referred By Contact Refer red To Contact Otorhinolaryngology Summer Pérez Kasperbauer, Jan L, P.A.-C., M.S. M.DShital [address] [place] [address] 200 [place] [phone] Referral ID Status Reason Start Date Expiration Date Visits Requ ested Visits Authorized [id number] Closed 03/14/2020 03/14/2021 1 1 Encounter Details Date Type Department Care Team Description 06/12/2020 Office Visit Department of Raghavendra, Bettie Neop lasm Of Supraglottic (HCC) (Primary Dx); Otorhinolaryngology in Hung Serna M.D. [address] [phone] Social History Tobacco Use Types Packs/Day [...] do you attend pentecostal or Never 2018 anabaptism services? Do you belong to any clubs [...] female who presents to clinic with her qnqskywm-nt-yxl for follow-up on the above-stated oncologic history [...] week Gets together: Once a week Attends anabaptism service: Never Active member of club or [...] no cerumen or middle ear effusion Nose: [place] and moist Oral Cavity: [place] and dry. Mucous membranes intact. Edentulous. Floor [...] I will call the patient and her fzeiohux-tr-kmx with results of the PET scan when they are available. They verbalized understanding. They should be seen again in 3-4 months for continued surveillance related to the history of a T2 supraglottic laryngeal squamous cell carcinoma. Addendum: I called the patient's amatyluh-gt-vtk and explained that the radiologist thought the [...] Radiology Mark Eastman M.D., M.S. [address] [place] [phone] 04/26/2022 Office Visit Otorhinolaryngology Roxanne Lanza APRN, C.N.P. [address] [place] [address] [phone] 04/28/2022 Appointment Radiation Oncology Ursula Aguirre M.D. 200 [place] [phone] documented as of this encounter Visit Diagnoses Diagnosis Malignant Neoplasm Of Supraglottic (HCC) - Primary Dysphonia documented in this encounter
--- OUTSIDE RECORDS SUMMARY | 2022-04-05 09:21 | XMS_ITS | Encounter Summary ---
:1955 Author Organization [facility] Address [address] [place] [address] Care Team Providers Name Role Phone Unavailable Primary Care Provider Unavailable Reason for Referral Outpatient (Routine) - Closed Specialty Diagnoses / Procedures Referred By Contact Refer red To Contact Diagnoses Malignant Neoplasm Of Supraglottic (HCC) Summer Pérez P.A.-C.[facility] Reg ion Procedures PET CT Skull to Thigh FDG [place] PET/CT TRUNK M.S. 200 [place] [phone] Referral ID Status Reason Start Date Expiration Date Visits Requ ested Visits Authorized [id number] Closed 03/14/2020 03/14/2021 1 1 Reason for Visit Outpatient (Routine) - Closed Specialty Diagnoses / Procedures Referred By Contact Refer red To Contact Diagnoses Malignant Neoplasm Of Supraglottic (HCC) Summer Pérez P.A.-C.[facility] Reg ion Procedures PET CT Skull to Thigh FDG [place] PET/CT TRUNK M.S. 200 [place] [phone] Referral ID Status Reason Start Date Expiration Date Visits Requ ested Visits Authorized [id number] Closed 03/14/2020 03/14/2021 1 1 Encounter Details Date Type Department Care Team Description 06/12/2020 Hospital Encounter Department of Summer Pérez Maligna nt Neoplasm Of Radiology, Malcom Torres M.S . Supraglottic (HCC) Building, in [address] [place] [address] [place] [phone] [place], [place] [phone] (Work) [phone] Social History Tobacco Use Types Packs/Day Years [...] or relatives? How often do you attend congregation or Never 2018 baptism services? Do you belong to any clubs or No 02/21/2019 organizations such as congregation groups, unions, fraternal or athletic groups, or [...] Radiology Mark Eastman M.D., M.S. [address] [place] [phone] 04/26/2022 Office Visit Otorhinolaryngology Roxanne Lanza APRN, C.N.P. [address] [place] [phone] 04/28/2022 Appointment Radiation Oncology Ursula Aguirre M.D. [address] [place] [phone] documented as of this encounter Procedures Procedure [...] RADIOPHARMACEUTICAL/MEDS: Route: intravenous fludeoxyglucose F 18 injection INTERMEDIATE (FDG F-18),9.21 millicurie TECHNIQUE: ??F-18 FDG PET/CT [...] RADIOPHARMACEUTICAL/MEDS: Route: intravenous fludeoxyglucose F 18 injection INTERMEDIATE (FDG F-18),9.21 millicurie TECHNIQUE: F-18 FDG PET/CT [...] Given 06/12/2020 9:44 AM 9.21 millicuries injection INTERMEDIATE (FDG F-18) CDT 9.21 millicurie, intravenous, Once, On Meredith 06/12/20 at 1000, For 1 dose documented in this encounter
--- OUTSIDE RECORDS SUMMARY | 2022-04-05 09:21 | XMS_ITS | Encounter Summary ---
:1955 Author Organization [facility] Address [address] [place] [address] Care Team Providers Name Role Phone Unavailable Primary Care Provider Unavailable Encounter Details Date Type Department Care Team Description 06/10/2020 Hospital Encounter Department of Summer Pérez Encount For Laboratory Medicine PMassiel, M.S . Screening For Other in [address] Viral Diseases [place], [place] (COVID-19) [address] [address] [place], [place] [phone] (Work) [phone] Social History Tobacco Use Types Packs/Day Years [...] do you attend scientology or Never 2018 restoration services? Do you [...] to pay for the very basics like [place] hat hard 02/21/2019 food, housing, medical care, [...] Radiology Mark Eastman M.D., M.S. [address] [place] [phone] 04/26/2022 Office Visit Otorhinolaryngology Roxanne Lanza, FRIT MIXER, C.N.P. [address] [place] [phone] 04/28/2022 Appointment Radiation Oncology Ursula Aguirre M.D. [address] [place] [phone] documented as of this encounter Procedures Procedure Name Priority Date/Time Associated Diagnosis Comme nts SARS CORONAVIRUS-2 Routine 06/10/2020 11:50 AM Encounter For R esults for this RNA, V CDT Screening For Other procedur e are in Viral Diseases the results (COVID-19) section. documented in this encounter Results SARS Coronavirus-2 RNA, V Asymptomatic (06/10/2020 11:50 AM CDT) [facility] Method Time Signature SARS-CoV-2 Swab, 06/10/2020 MKTO [...] is performed using the Aptima SARS-CoV-2 assay ([employer] which has received Emergency Use Authori zation (EUA) by the U.S. Food and Drug Administration. Fact sheets for this Emergency Use Autho rization (EUA) assay can be found at the following links: For Healthcare Providers: https://www.[employer] a.gov/media/558980/download For Patients: https://www.fda.gov/media/ 945098/download Specimen Anatomical Collection Method Collection Time Receive d Time (Source) Location / / Volume Laterality Varies 06/10/2020 11:50 06/10/2020 2:54 (Nasopharynx) AM CDT PM CDT Summer Pérez P.A.-C., M.S. LAB MICROBIOLOGY - GENERAL O RDERABLES Performing Organization Address City/State/ZIP Code Phon e Number [facility]- [address] [place] [address] [place] [address] System [address] documented in this encounter Visit Diagnoses Diagnosis Encounter For Screening For Other Viral Diseases (COVID-19) documented in this encounter Additional Health Concerns Infection Onset Date Last Indicated Resolved Time COVID19 Pending 06/10/2020 06/10/2020 06/10/2020 8:15 PM CDT documented as of this encounter
--- OUTSIDE RECORDS SUMMARY | 2022-04-05 09:21 | XMS_ITS | Encounter Summary ---
:1955 Author Organization [facility] Address [address] [place] [address] Care Team Providers Name Role Phone Unavailable Primary Care Provider Unavailable Reason for Visit Outpatient (Routine) - Closed Specialty Diagnoses / Procedures Referred By Contact Refer red To Contact Endocrinology Diagnoses Malignant Neoplasm Of Supraglottic (HCC) Summer Pérez P.A.-C., [facility] M.S. [address] [place] [phone] Referral ID Status Reason Start Date Expiration Date Visits Requ ested Visits Authorized [id number] Closed 02/11/2020 02/10/2021 1 1 Encounter Details Date Type Department Care Team Description 02/26/2020 Comprehensive Visit Division of Summer Pérez P.A.-C., M.S. [address] [place] [phone] Gastrostomy Status (HCC) (Primary Dx); Endocrinology in Padma Vieira APRN, C.N.P., M.S. [address] [place] [phone] Malignant Neoplasm Of Supraglottic (HCC) ; [place], [place] Home [facility] [address] [place] [phone] Social History Tobacco Use Types Packs/Day Years [...] do you attend cheondoism or Never 2018 spiritism services? Do you [...] Radiology Mark Eastman M.D., M.S. [address] [place] [phone] 04/26/2022 Office Visit Otorhinolaryngology Roxanne Lanza, PIT CLERK, C.N.P. [address] [place] [phone] 04/28/2022 Appointment Radiation Oncology Ursula Aguirre M.D. [address] [place] [phone] documented as of this encounter Visit Diagnoses Diagnosis Gastrostomy Status (HCC) - Primary Malignant Neoplasm Of Supraglottic (HCC) Home Enteral Nutrition documented in this encounter
--- OUTSIDE RECORDS SUMMARY | 2022-04-05 09:21 | XMS_ITS | Encounter Summary ---
:1955 Author Organization [facility] Address [address] [place] [address] Care Team Providers Name Role Phone Unavailable Primary Care Provider Unavailable Reason for Visit Reason Comments Feeding Tube Encounter Details Date Type Department Care Team Description 02/26/2020 Clinical Support Division of Summer Pérez P .A.-C., M.S. [address] [place] [phone] Gastrostomy Status (HCC) (Primary Dx); Endocrinology in Chio Whitaker, R.N. [address] [place] [phone] Malignant Neoplasm Of Supraglottic (HCC) [place], [place] [address] [place] [phone] Social History Tobacco Use Types Packs/Day Years [...] do you attend anglican or Never 2018 scientologist services? Do you [...] been meet? Yes Enter brand of tube: [employer] Enter size of tube: 20 Enter number of mls removed: 3.5 Was there difficulty in deflating the balloon: No Was there difficulty removing the tube: No Site assessment: scant dried mucous drainage, circumferential granulation tissue measuring approximately 6 mm, mild erythema around granulation tissue, treated with two silver nitrate sticks per protocol PLAN Return appointment with [facility] Nurse: As needed *[id number] reviewed and given to patient. *Gauze and tape provided for patient documented in this encounter Plan of Treatment Upcoming Encounters Date Type Specialty Care Team Description 04/22/2022 Clinical Admitting/Central Communication Scheduling 04/26/2022 Appointment Radiology Mark Eastman M.D., M.S. [address] [place] [phone] 04/26/2022 Office Visit Otorhinolaryngology Roxanne Lanza APRN, C.N.P. [address] [place] [phone] 04/28/2022 Appointment Radiation Oncology Ursula Aguirre M.D. [address] [place] [phone] documented as of this encounter Visit Diagnoses [...]
--- OUTSIDE RECORDS SUMMARY | 2022-04-05 09:21 | XMS_ITS | Encounter Summary ---
:1955 Author Organization [facility] Address [address] [place] [address] Care Team Providers Name Role Phone Unavailable [...] do you attend orthodox or Never 2018 jew services? Do you [...] Appointment Radiology Mark Eastman M.D., M.S. 200 [place] [phone] 04/26/2022 Office Visit Otorhinolaryngology Roxanne Lanza APRN, C.N.P. [address] [place] [address] [phone] 04/28/2022 Appointment Radiation Oncology Ursula Aguirre M.D. [address] [place] [phone] documented as of this encounter Procedures Procedure [...]
--- OUTSIDE RECORDS SUMMARY | 2022-04-05 09:21 | XMS_ITS | Encounter Summary ---
:1955 Author Organization [facility] Address [address] [place] [address] Care Team Providers Name Role Phone Unavailable Primary Care Provider Unavailable Reason for Referral Outpatient (Routine) - Canceled Specialty Diagnoses / Procedures Referred By Contact Refer red To Contact Nutrition Diagnoses Malignant Neoplasm Of Supraglottic (HCC) Ursula Aguirre M.D. [address] [phone] Referral ID Status Reason Start Date Expiration Date Visits V isits Requested Authorized [id number] Canceled 08/30/2019 08/29/2020 1 1 Reason for Visit Outpatient (Routine) - Canceled Specialty Diagnoses / Procedures Referred By Contact Refer red To Contact Nutrition Diagnoses Malignant Neoplasm Of Supraglottic (HCC) Ursula Aguirre M.D. [facility] Region [address] [place] [phone] Referral ID Status Reason Start Date Expiration Date Visits V isits Requested Authorized [id number] Canceled 08/30/2019 08/29/2020 1 1 Encounter Details Date Type Department Care Team Description 11/29/2019 Hospital Encounter Department of Mary Aguirre M.D. [address] [place] [phone] Malignant Neoplasm Radiation Oncology Natasha Brandon, RDN [address] [place] [phone] Of Supraglottic in [place], ([facility]) [place] [address] [facility] [place] [phone] Social History Tobacco Use Types Packs/Day Years [...] do you attend buddhism or Never 2018 yarsanism services? Do you [...] April,. ?? Met with patient and her [id number] via telephone. Patient is hard of hearing and reads lips. For phone contact Merlin (son) states, his Darlin is the one to call, . ?? ASSESSMENT Relevant Social and Family History She lives in [place], [place] with her son Merlin and his Darlin. During the week while undergoing treatment lives in [place] with a different son. She is . She has 4 sons, 10 grand children and 2 great grandchildren. 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 She has a 40 [...] GI 04/17/19 and replaced 11/02/19 LEONARDO 20 Korean balloon gastrostomy, ENFit connector ?? Food/Nutrient Related [...] Radiology Mark Eastman M.D., M.S. [address] [place] [phone] 04/26/2022 Office Visit Otorhinolaryngology Roxanne Lanza, ELECTRONIC TYPESETTING MACHINE OPERATOR, C.N.P. [address] [place] [phone] 04/28/2022 Appointment Radiation Oncology Ursula Aguirre M.D. [address] [place] [phone] Scheduled Referrals Name Type Priority Associated Diagnoses Order S chedule Nutrition - Outpatient Referral Routine Malignant Neoplasm On ce for 1 Medical nutrition Of Supraglottic Occurre nces therapy consult (HCC) starting (clinic) until 0 documented as of this encounter Visit Diagnoses Diagnosis Malignant Neoplasm Of Supraglottic (HCC) documented in this encounter
--- OUTSIDE RECORDS SUMMARY | 2022-04-05 09:21 | XMS_ITS | Encounter Summary ---
:1955 Author Organization [facility] Address [address] [place] [address] Care Team Providers Name Role Phone Unavailable Primary Care Provider Unavailable Reason for Visit Reason Comments Appointment Encounter Details Date Type Department Care Team Description 02/12/2020 Documentation [facility] [place], [place] M.A.N., R.N. [address] [facility] [address] [place] [phone] [place], [place] [phone] Social History Tobacco Use Types Packs/Day Years [...] do you attend quaker or Never 2018 pentecostalism services? Do you [...] Radiology Mark Eastman M.D., M.S. [address] [place] [phone] 04/26/2022 Office Visit Otorhinolaryngology Roxanne Lanza APRN, C.N.P. [address] [place] [phone] 04/28/2022 Appointment Radiation Oncology Ursula Aguirre M.D. [address] [place] [phone] documented as of this encounter Visit Diagnoses Not on filedocumented in this encounter
--- OUTSIDE RECORDS SUMMARY | 2022-04-05 09:21 | XMS_ITS | Encounter Summary ---
:1955 Author Organization [facility] Address [address] [place] [address] Care Team Providers Name Role Phone Unavailable Primary Care Provider Unavailable Encounter Details Date Type Department Care Team Description 12/09/2020 Orders Only [facility] Sa kate Fountain M.D. [address] [place], [place] [phone] (Wo rk) Social History [...] do you attend restorationist or Never 2018 episcopalian services? Do you [...] Radiology Mark Eastman M.D., M.S. [address] [place] [phone] 04/26/2022 Office Visit Otorhinolaryngology Roxanne Lanza APRN, C.N.P. [address] [place] [phone] 04/28/2022 Appointment Radiation Oncology Ursula Aguirre M.D. 200 [place] [phone] documented as of this encounter Visit Diagnoses Not on filedocumented in this encounter
--- OUTSIDE RECORDS SUMMARY | 2022-04-05 09:21 | XMS_ITS | Encounter Summary ---
:1955 Author Organization [facility] Address [address] [place] [address] Care Team Providers Name Role Phone Unavailable [...] do you attend religious or Never 2018 christian services? Do you [...] Appointment Radiology Mark Eastman M.D., M.S. 200 [place] [phone] 04/26/2022 Office Visit Otorhinolaryngology Roxanne Lanza APRN, C.N.P. [address] [place] [address] [phone] 04/28/2022 Appointment Radiation Oncology Ursula Aguirre M.D. [address] [place] [phone] documented as of this encounter Procedures Procedure [...]
--- OUTSIDE RECORDS SUMMARY | 2022-04-05 09:21 | XMS_ITS | Encounter Summary ---
:1955 Author Organization [facility] Address [address] [place] [address] Care Team Providers Name Role Phone Unavailable Primary Care Provider Unavailable Encounter Details Date Type Department Care Team Description 03/03/2020 Hospital Encounter Department of Summer Pérez Maligna nt Neoplasm Of Laboratory Medicine P.Marilou., M.S . Supraglottic (HCC) in [place], [address] [place] [address] [address] [facility] [phone] [place], [place] [phone] (Work) [phone] Social History Tobacco Use Types Packs/Day Years [...] Radiology Mark Eastman M.D., M.S. [address] [place] [phone] 04/26/2022 Office Visit Otorhinolaryngology Roxanne Lanza APRN, C.N.P. [address] [place] [phone] 04/28/2022 Appointment Radiation Oncology Ursula Aguirre M.D. [address] [place] [phone] documented as of this encounter Procedures Procedure [...] supplements. ??If the result does not [facility] clinical observations, repeat testing after patient refrains fr om the use of supplements for at least 12 hours. Specimen Anatomical Collection Method Collection Time Receive d Time (Source) Location / / Volume Laterality Blood (Blood, 03/03/2020 10:37 03/03/2020 1:16 Venous) AM CDT PM CDT Summer Pérez P.A.-C., M.S. LAB BLOOD ADD-ON Performing Organization Address City/State/ZIP Code Phon e Number [facility]- [address] [place] [address] [place] [address] System in [place] [address] documented in this encounter Visit Diagnoses Diagnosis Malignant Neoplasm Of Supraglottic (HCC) documented in this encounter
--- OUTSIDE RECORDS SUMMARY | 2022-04-05 09:21 | XMS_ITS | Encounter Summary ---
:1955 Author Organization [facility] Address [address] [place] [address] Care Team Providers Name Role Phone Unavailable Primary Care Provider Unavailable Reason for Referral Outpatient (Routine) - Canceled Specialty Diagnoses / Procedures Referred By Contact Refer red To Contact Nutrition Diagnoses Malignant Neoplasm Of Supraglottic (HCC) Ursula Aguirre M.D. [address] [phone] Referral ID Status Reason Start Date Expiration Date Visits V isits Requested Authorized [id number] Canceled 08/30/2019 08/29/2020 1 1 Reason for Visit Outpatient (Routine) - Canceled Specialty Diagnoses / Procedures Referred By Contact Refer red To Contact Nutrition Diagnoses Malignant Neoplasm Of Supraglottic (HCC) Ursula Aguirre M.D. [facility] Region [address] [place] [phone] Referral ID Status Reason Start Date Expiration Date Visits V isits Requested Authorized [id number] Canceled 08/30/2019 08/29/2020 1 1 Encounter Details Date Type Department Care Team Description 02/07/2020 Hospital Encounter Department of Mary Aguirre M.D. [address] [place] [phone] Malignant Neoplasm Radiation Oncology Natasha Brandon, RDN 18[address] [place] [phone] Of Supraglottic in [place], ([facility]) [place] [address] [facility] [place] [phone] Social History Tobacco Use Types Packs/Day Years [...] do you attend mormonism or Never 2018 nondenominational services? Do you [...] Social and Family History?? She lives in [place], [place] with her son Merlin and his Darlin. During the week while undergoing treatment lives in [place] with a different son. She is . She has 4 sons, 10 grand children and 2 great grandchildren. 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 She has a 40 year [...] GI 04/17/19 and replaced 11/02/19 LEONARDO 20 Anguillan balloon gastrostomy, ENFit connector ?? Food/Nutrient Related [...] a sandwich or soup with chips or Anguillan fries and water or tea. Supper is [...] (25 to 30 mL/kg) ?? Assessment Summary Obdulai Narayan is tolerating oral intake and has [...] ?? INTERVENTION Discussed balancing meals using the [employer] My Plate. Also discussed listening to hunger [...] Radiology Mark Eastman M.D., M.S. [address] [place] [address] [phone] 04/26/2022 Office Visit Otorhinolaryngology Roxanne Lanza APRN, C.N.P. [address] [place] [address] [phone] 04/28/2022 Appointment Radiation Oncology Ursula Aguirre M.D. [address] [place] [address] [phone] Scheduled Referrals Name Type Priority Associated Diagnoses Order S chedule Nutrition - Outpatient Referral Routine Malignant Neoplasm On ce for 1 Medical nutrition Of Supraglottic Occurre nces therapy consult (HCC) starting (clinic) until 0 documented as of this encounter Visit Diagnoses Diagnosis Malignant Neoplasm Of Supraglottic (HCC) documented in this encounter
--- OUTSIDE RECORDS SUMMARY | 2022-04-05 09:21 | XMS_ITS | Encounter Summary ---
:1955 Author Organization [facility] Address [address] [place] [address] Care Team Providers Name Role Phone Unavailable Primary Care Provider Unavailable Reason for Referral Outpatient (Routine) - Closed Specialty Diagnoses / Procedures Referred By Contact Refer red To Contact Endocrinology Padma Vieira APRN, [facility] C.N.PShital, M.S. [address] [place] [phone] Referral ID Status Reason Start Date Expiration Date Visits Requ ested Visits Authorized [id number] Closed 01/30/2020 01/29/2021 1 1 Encounter Details Date Type Department Care Team Description 01/30/2020 Orders Only Division of Endocrinology in [place], [place] R.N. [address] [place] [address] [place] [phone] [place], [place] [phone] Social History Tobacco Use Types Packs/Day Years [...] do you attend protestant or Never 2018 voodoo services? Do you belong to any clubs or No 02/21/2019 organizations such as protestant groups, unions, fraSTRATUSCORE or athletic groups, or school groups? How [...] Radiology Mark Eastman M.D., M.S. [address] [place] [phone] 04/26/2022 Office Visit Otorhinolaryngology Roxanne Lanza, WORKERS' COMPENSATION COMMISSIONER, C.N.P. [address] [place] [phone] 04/28/2022 Appointment Radiation Oncology Ursula Aguirre M.D. [address] [place] [phone] Scheduled Referrals Name Type Priority Associated Order Schedule Diagnoses Endocrinology nurse Outpatient Referral Routine E xpected: visit (clinic) 01/31/2020, Expires: 01/29/2023 documented as of this encounter Visit Diagnoses Not on filedocumented in this encounter
--- OUTSIDE RECORDS SUMMARY | 2022-04-05 09:21 | XMS_ITS | Encounter Summary ---
:1955 Author Organization [facility] Address [address] [place] [address] Care Team Providers Name Role Phone Unavailable [...] do you attend judaism or Never 2018 church services? Do you [...] Clinical Admitting/Central Communication Scheduling 04/26/2022 Appointment Radiology aMrk Eastman M.D., M.S. 200 [place] [phone] 04/26/2022 Office Visit Otorhinolaryngology Roxanne Lanza APRN, C.N.P. [address] [place] [address] [phone] 04/28/2022 Appointment Radiation Oncology Ursula Aguirre M.D. [address] [place] [phone] documented as of this encounter Procedures Procedure [...]
--- OUTSIDE RECORDS SUMMARY | 2022-04-05 09:21 | XMS_ITS | Encounter Summary ---
:1955 Author Organization [facility] Address [address] [place] [address] Care Team Providers Name Role Phone Unavailable Primary Care Provider Unavailable Reason for Referral Outpatient (Routine) - Closed Specialty Diagnoses / Procedures Referred By Contact Refer red To Contact Endocrinology Diagnoses Malignant Neoplasm Of Supraglottic (HCC) Summer Pérez P.A.-C.[facility] [address] [place] [phone] Referral ID Status Reason Start Date Expiration Date Visits Requ ested Visits Authorized [id number] Closed 02/11/2020 02/10/2021 1 1 Specialty Diagnoses / Procedures Referred By Contact Refer red To Contact Summer Pérez P.A.-C ., M.S. [facility] [address] [place] [phone] Referral ID Status Reason Start Date Expiration Date Visits Requ ested Visits Authorized Encounter Details Date Type Department Care Team Description 02/11/2020 Orders Only Department of Summer Pérez, Malignant Joao plasm Of Radiation Oncology in [place], M .S. Supraglottic (HCC) [facility] [place] [address] [place] [address] (Primary Dx) [address] [place] [phone] Social History Tobacco Use Types Packs/Day Years [...] do you attend sikh or Never 2018 rastafarian services? Do you [...] Radiology Mark Eastman M.D., M.S. [address] [place] [phone] 04/26/2022 Office Visit Otorhinolaryngology Roxanne Lanza APRN, C.N.P. [address] [place] [phone] 04/28/2022 Appointment Radiation Oncology Ursula Aguirre M.D. [address] [place] [phone] Scheduled Referrals Name Type Priority Associated Diagnoses [...]
--- OUTSIDE RECORDS SUMMARY | 2022-04-05 09:21 | XMS_ITS | Encounter Summary ---
:[address] [facility] Address [address] [place] [address] Care Team Providers Name Role Phone Unavailable Primary Care Provider Unavailable Reason for Visit Reason Onset Date Comments COVID Inquiry 02/25/2020 Encounter Details Date Type Department Care Team Description 02/25/2020 Clinical Communication Division of Tramaine Deras COVID Inquiry Internal Medicine in A, AMAYA, C.N.P., [facility].S. [address] [place] [address] [address] [place] [phone] Social History Tobacco Use Types Packs/Day Years [...] do you attend faith or Never 2018 faith services? Do you [...] to pay for the very basics like Spark[employer] hat hard 02/21/2019 food, housing, medical care, [...] - 02/25/2020 11:18 AM CDT ([facility] locations only: If the patient is not having symptoms and is requesting COVID-19 Nasal Swab testing only, use the process listed in the COVID-19 Patient Requesting COVID PCR Test OTG COVID-19 [place] Patient Requesting COVID PCR Test). 1. Do [...] Radiology Mark Eastman M.D., M.S. [address] [place] [phone] 04/26/2022 Office Visit Otorhinolaryngology Roxanne Lanza, COMMERCIAL DRIVER, C.N.P. [address] [place] [phone] 04/28/2022 Appointment Radiation Oncology Ursula Aguirre M.D. [address] [place] [phone] documented as of this encounter Visit Diagnoses Not on filedocumented in this encounter
--- OUTSIDE RECORDS SUMMARY | 2022-04-05 09:21 | XMS_ITS | Encounter Summary ---
:1955 Author Organization [facility] Address [address] [place] [address] Care Team Providers Name Role Phone Unavailable Primary Care Provider Unavailable Encounter Details Date Type Department Care Team Description 01/30/2020 Clinical Communication Department of Ursula Aguirre Radiation Oncology Kimberley Kaur [place] [address] [facility] [address]21 [place] [phone] Social History Tobacco Use Types Packs/Day Years [...] do you attend latter-day or Never 2018 caodaism services? Do you [...] keeps falling out. She called GI in [place], and they told her to go to the ED. Darlin really doesn't want to have to take her to the ED and finds that unnecessary. The patient has appointments in [place] tomorrow so she would like help getting the patient set up to see someone in [place] tomorrow. However, Darlin also states that Obdulia wants the feeding tube removed permanently. She would appreciate a call back to discuss all of this. Phone number: [phone] Is it okay to leave a voicemail on answering machine with test results? No Pharmacy (if medication related): N/A Ayla Orellana documented in this encounter Plan of Treatment Upcoming Encounters Date Type Specialty Care Team Description 04/22/2022 Clinical Admitting/Central Communication Scheduling 04/26/2022 Appointment Radiology Mark Eastman M.D., M.S. [address] [place] [phone] 04/26/2022 Office Visit Otorhinolaryngology Roxanne Lanza APRN, C.N.P. [address] [place] [address] [phone] 04/28/2022 Appointment Radiation Oncology Ursula Aguirre M.D. [address] [place] [phone] documented as of this encounter Visit Diagnoses Not on filedocumented in this encounter
--- OUTSIDE RECORDS SUMMARY | 2022-04-05 09:21 | XMS_ITS | Encounter Summary ---
:1955 Author Organization [facility] Address [address] [place] [address] Care Team Providers Name Role Phone Unavailable Primary Care Provider Unavailable Reason for Referral Outpatient (Routine) - Closed Specialty Diagnoses / Procedures Referred By Contact Refer red To Contact Diagnoses Malignant Neoplasm Of Supraglottic (HCC) Summer Pérez P.A.-C., [place] [facility] Procedures [place] Swallow Function with Video and Speech or OT M.S. [address] [place] [phone] Referral ID Status Reason Start Date Expiration Date Visits Requ ested Visits Authorized [id number] Closed 10/15/2019 10/14/2020 1 1 Reason for Visit Outpatient (Routine) - Closed Specialty Diagnoses / Procedures Referred By Contact Refer red To Contact Diagnoses Malignant Neoplasm Of Supraglottic (HCC) Summer Pérez P.A.-C. [facility] Procedures [place] Swallow Function with Video and Speech or OT M.S. [address] [place] [phone] Referral ID Status Reason Start Date Expiration Date Visits Requ ested Visits Authorized [id number] Closed 10/15/2019 10/14/2020 1 1 Encounter Details Date Type Department Care Team Description 01/31/2020 Hospital Encounter Department of Summer Pérez P.A.-C., M.S. [address] [place] [phone] Malignant Neoplasm Of Radiology, [place] Parvin Mijares M.S., CCC-MAINFRAME SOFTWARE DEVELOPER [address] [place] [phone] Supraglottic (HCC) Building, in [place], [place] [address] [place] [phone] Social History Tobacco Use Types Packs/Day Years [...] do you attend faith or Never 2018 church services? Do you [...] Radiology Mark Eastman M.D., M.S. [address] [place] [phone] 04/26/2022 Office Visit Otorhinolaryngology Roxanne Lanza APRN, C.N.P. [address] [place] [address] [phone] 04/28/2022 Appointment Radiation Oncology Ursula Aguirre M.D. [address] [place] [phone] documented as of this encounter Procedures Procedure [...]
--- OUTSIDE RECORDS SUMMARY | 2022-04-05 09:21 | XMS_ITS | Encounter Summary ---
:1955 Author Organization [facility] Address [address] [place] [address] Care Team Providers Name Role Phone Unavailable Primary Care Provider Unavailable Reason for Referral Outpatient (Routine) - Closed Specialty Diagnoses / Procedures Referred By Contact Refer red To Contact Radiation Oncology Ursula Aguirre [facility] [address] [place] [phone] Referral ID Status Reason Start Date Expiration Date Visits Requ ested Visits Authorized [id number] Closed 11/29/2019 11/28/2020 1 1 Outpatient (Routine) - Closed Specialty Diagnoses / Procedures Referred By Contact Refer red To Contact Radiation Oncology Summer Pérez P.A.-C., [facility] 200 [place] [phone] Referral ID Status Reason Start Date Expiration Date Visits Requ ested Visits Authorized [id number] Closed 08/30/2019 08/29/2020 1 1 Scheduling Instructions TSH a few days prior Reason for Visit Outpatient (Routine) - Closed Specialty Diagnoses / Procedures Referred By Contact Refer red To Contact Radiation Oncology Summer Pérez P.A.-C., [facility] [address] [place] [phone] Referral ID Status Reason Start Date Expiration Date Visits Requ ested Visits Authorized [id number] Closed 08/30/2019 08/29/2020 1 1 Encounter Details Date Type Department Care Team Description 11/29/2019 Hospital Encounter Department Ursula Molina Neoplasm Of Radiation Oncology Kimberley Bacon Supraglottic (HCC) in [address] [place] [phone] [place], [place] [phone] (Work) [phone] Social History Tobacco Use Types Packs/Day Years [...] do you attend cheondoism or Never 2018 methodist services? Do you [...] 2019: ??Appointment with Dr. Darryl Grayson???Rasta at [facility]. ??Physical examination with flexible laryngoscopy revealed a large fungating mass overlying the posterior left arytenoid that appeared fairly extensive, extending over to the right arytenoid into the piriform sinus. ?? Vocal cords move normally. ??Patient did have some shotty adenopathy on the left side. ??Ordered CT scan and then arrange referral to [facility]. 4. February 12, 2019: ??CT scan of [...] Dr. Hung Mabry and Dr. Frank Arrieta??at [facility]. ??Physical examination revealed an exophytic mass of [...] will be referred to Radiation Oncology in [place]. 8. March 13, 2019: ??Follow-up appointment with Dr. Arrieta and Dr. Mabry who discussed treatment options including total laryngectomy versus radiation therapy. ??They were not able to offer partial laryngectomy given her lung disease and possible aspiration. ?? 9. March 15, 2019: ??Phone call with Dr. Tapia with the patient's dtxhetzp-kv-tem reported that the patient had decided to undergo radiation treatment in [place]. ??She will have a follow-up abdominal MRI at [place]. ??The patient will follow-up with her primary [...] tube as tolerated. She will talk with vascular ultrasound technologist after our visit. She signed our consent form for video I will put her videoscope exam in S[employer]CatheaNu-Pulse. We will see Obdulia Narayan in follow-up visit in 3-4 months with out imaging. I would suggest another PET/CT at 1 year samuel and will have her see ENT in [place] at that time. Obdulia Narayan knows to [...] M.D. 11/29/2019 1:40 PM CDT Radiation Oncology [facility] [address] [place] [address] documented in this encounter Miscellaneous Notes Addendum Note - Mehreen Trujillo - 11/29/2019 12:41 PM CDT Encounter addended by: Mehreen Trujillo on: 11/29/2019 3:03 PM Actions taken: Letter saved documented in this encounter Plan of Treatment Upcoming Encounters Date Type Specialty Care Team Description 04/22/2022 Clinical Admitting/Central Communication Scheduling 04/26/2022 Appointment Radiology Mark Eastman M.D., M.S. [address] [place] [phone] 04/26/2022 Office Visit Otorhinolaryngology Roxanne Lanza APRN, C.N.P. [address] [place] [phone] 04/28/2022 Appointment Radiation Oncology Ursula Aguirre M.D. [address] [place] [phone] Scheduled Referrals Name Type Priority Associated Order [...]
--- OUTSIDE RECORDS SUMMARY | 2022-04-05 09:21 | XMS_ITS | Encounter Summary ---
:1955 Author Organization [facility] Address [address] [place] [address] Care Team Providers Name Role Phone Unavailable Primary Care Provider Unavailable Reason for Referral MRI/CAT/PET Scan (Routine) - Closed Specialty Diagnoses / Procedures Referred By Contact Refer red To Contact Radiology Diagnoses Aneurysm Thoracic Aortic Without Rupture (HCC) Ursula Aguirre M.D. [facility] Procedures CT Abdomen Pelvis Angiogram with IV Contrast 200 [place] [address] Referral ID Status Reason Start Date Expiration Date Visits Requ ested Visits Authorized [id number] Closed 06/26/2020 09/15/2021 1 1 ANALYST Outpatient (Routine) - Closed Specialty Diagnoses / Procedures Referred By Contact Refer red To Contact Vascular Medicine Diagnoses Aneurysm Thoracic Aortic Without Rupture (HCC) [facility] 200 [place] [address] Referral ID Status Reason Start Date Expiration Date Visits Requ ested Visits Authorized [id number] Closed 06/26/2020 06/26/2021 1 1 Scheduling Instructions patient previously seen by Kristi 2019 ANALYST Outpatient (Routine) - Closed Specialty Diagnoses / Procedures Referred By Contact Refer red To Contact Radiation Oncology Summer Pérez P.A.-C., [facility] M.S. [address] [place] [phone] Referral ID Status Reason Start Date Expiration Date Visits Requ ested Visits Authorized [id number] Closed 03/14/2020 03/14/2021 1 1 Scheduling Instructions PET/CT and appointment with Dr. Aimee gonzalez in [place] ANALYST Reason for Visit Outpatient (Routine) - Closed Specialty Diagnoses / Procedures Referred By Contact Refer red To Contact Radiation Oncology Summer Pérez P.A.-C., [facility] M.S. 200 [place] [address] Referral ID Status Reason Start Date Expiration Date Visits Requ ested Visits Authorized [id number] Closed 03/14/2020 03/14/2021 1 1 Encounter Details Date Type Department Care Team Description 06/26/2020 Hospital Encounter Department of Ursula Aguirre [facility] Thoracic Radiation Oncology Kimberley aBcon Aortic Without in [place], [facility] 1st [facility] Rupture (HCC) [place], [place] (Primary Dx) [address] [facility] [address] [place], [place] [phone] (Work) [phone] Social History Tobacco Use Types Packs/Day Years [...] do you attend moravian or Never 2018 spiritism services? Do you [...] follow-up. She was seen and examined in [place] in late May. ?? Her??oncologic history is as follows: 1. November 2018: ??The patient noted throat pain with swallowing along with intermittent ear pain,??managed with Tylenol. 2. February 2019: ??The patient experienced progressively worsening throat pain,??odynophagia, 10 pound??unintentional weight loss, hoarseness over the past few weeks,??and difficulty sleeping due to increased secretion. 3. February 08, 2019: ??Appointment with Dr. Darryl Grayson???Rasta at [facility]. ??Physical examination with flexible laryngoscopy revealed a large fungating mass overlying the posterior left arytenoid that appeared fairly extensive, extending over to the right arytenoid into the piriform sinus. ?? Vocal cords move normally. ??Patient did have some shotty adenopathy on the left side. ??Ordered CT scan and then arrange referral to [facility]. 4. February 12, 2019: ??CT scan of [...] Hung Mabry and Dr. Frank Arrieta??at [facility]. ??Physical examination revealed an exophytic mass of [...] will be referred to Radiation Oncology in [place]. 8. March 13, 2019: ??Follow-up appointment with Dr. Arrieta and Dr. Mabry who discussed treatment options including total laryngectomy versus radiation therapy. ??They were not able to offer partial laryngectomy given her lung disease and possible aspiration. ?? 9. March 15, 2019: ??Phone call with Dr. Tapia with the patient's demzikmj-oh-bvn reported that the patient had decided to undergo radiation treatment in [place]. ??She will have a follow-up abdominal MRI at [place]. ??The patient will follow-up with her primary [...] by: Ursula Aguirre M.D. 06/26/2020 4:39 PM INFO ANALYST Radiation Oncology [facility] [address] [place] [address] ANALYST documented in this encounter Plan of Treatment Upcoming Encounters Date Type Specialty Care Team Description 04/22/2022 Clinical Admitting/Central Communication Scheduling 04/26/2022 Appointment Radiology Mark Eastman M.D., M.S. [address] [place] [phone] 04/26/2022 Office Visit Otorhinolaryngology Roxanne Lanza APRN, C.N.P. [address] [place] [phone] 04/28/2022 Appointment Radiation Oncology Ursula Aguirre M.D. [address] [place] [phone] Scheduled Referrals Name Type Priority Associated Order [...] Angiogram with IV Contrast (09/15/2021 11:44 AM INFO ANALYST) Anatomical Region Laterality Modality Abdomen, Pelvis, Cardiovascular RST N/A Comp uted Tomography, Computed LOS, Abdominal ARZ LOS, Vascular Tomogra phy Interventional ARZ LOS, Abdominal FLA LOS, Vascular Interventional FLA LOS Specimen (Source) Anatomical Collection Method Collection Time Re ceived Time Location / / Volume Laterality 09/15/2021 11:25 AM INFO ANALYST Impressions 09/15/2021 1:06 PM INFO ANALYST Enlarging infrarenal abdominal aortic aneurysm measuring 56 x 57 mm in maximum orthogonal dimension (previou sly 49 x 51 mm in 03/20/2019). Narrative 09/15/2021 1:06 PM INFO ANALYST EXAM: ??CT ABDOMEN PELVIS ANGIOGRAM WITH IV [...] Creatinine with Estimated GFR (09/15/2021 9:46 AM INFO ANALYST) P athologist Signature Creatinine, S 1.20 (H) 0.59 - 09/15/2021 DTL 1.04 mg/dL 10:48 AM INFO ANALYST eGFR-Non 48 (L) >=60 09/15/2021 DTL Black/ mL/min/BSA 10:48 AM INFO ANALYST Iranian Comment: ----ADDITIONAL INFORMATION---- Estimated GFR calculated using the 2009 CKD_EPI creatinine equation. eGFR-Black/ 55 (L) >=60 mL/min/BSA 2021 10:48 AM INFO ANALYST DTL Comment: ----ADDITIONAL INFORMATION---- Estimated GFR calculated using the 2009 CKD_EPI creatinine equation. Specimen Anatomical Collection Method Collection Time Receive d Time (Source) Location / / Volume Laterality Blood (Blood, 09/15/2021 9:46 AM 09/15/19 22 Venous) INFO ANALYST 10:30 AM INFO ANALYST Ursula Aguirre M.D. 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
--- OUTSIDE RECORDS SUMMARY | 2022-04-05 09:21 | XMS_ITS | Encounter Summary ---
:1955 Author Organization [facility] Address [address] [place] [address] Care Team Providers Name Role Phone Unavailable [...] do you attend yazdanism or Never 2018 adventist services? Do you [...] Appointment Radiology Mark Eastman M.D., M.S. 200 [place] [phone] 04/26/2022 Office Visit Otorhinolaryngology Roxanne Lanza APRN, C.N.P. 200 [place] [phone] 04/28/2022 Appointment Radiation Oncology Ursula Aguirre M.D. 200 [place] [phone] documented as of this encounter Procedures Procedure [...]
--- OUTSIDE RECORDS SUMMARY | 2022-04-05 09:22 | XMS_ITS | Encounter Summary ---
:[address] [facility] Address [address] [place] [address] Care Team Providers Name Role Phone Unavailable Primary Care Provider Unavailable Reason for Referral Outpatient (Routine) - Canceled Specialty Diagnoses / Procedures Referred By Contact Refer red To Contact Nutrition Diagnoses Malignant Neoplasm Of Supraglottic (HCC) Ursula Aguirre M.D. [address] [phone] Referral ID Status Reason Start Date Expiration Date Visits V isits Requested Authorized [id number] Canceled 08/30/2019 08/29/2020 1 1 RAM PARAPROFESSIONAL Reason for Visit Outpatient (Routine) - Canceled Specialty Diagnoses / Procedures Referred By Contact Refer red To Contact Nutrition Diagnoses Malignant Neoplasm Of Supraglottic (HCC) Ursula Aguirre M.D. [facility] Region [address] [place] [phone] Referral ID Status Reason Start Date Expiration Date Visits V isits Requested Authorized [id number] Canceled 08/30/2019 08/29/2020 1 1 Encounter Details Date Type Department Care Team Description 10/18/2019 Hospital Encounter Department of Mary Aguirre M.D. [address] [place] [phone] Dysphagia (Primary Dx); Radiation Oncology Natasha Brandon, RDN [address] [place] [phone] Malignant Neoplasm Of Supraglottic (HCC) in [place], [place] [address] [place] [phone] Social History Tobacco Use Types Packs/Day Years [...] do you attend amish or Never 2018 christianity services? Do you [...] completed April,. Met with patient and her oubemhvn-bd-swy. Patient is hard of hearing and reads lips. For phone contact Merlin (son) states, his Darlin is the one to call, . ASSESSMENT Relevant Social and Family History She lives in [place], [place] with her son Merlin and his Darlin. During the week while undergoing treatment lives in [place] with a different son. She is . She has 4 sons, 10 grand children and 2 great grandchildren. 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 She has a 40 year [...] tube placed by GI 04/17/19 LEONARDO 20 Irish balloon gastrostomy, ENFit connector Food/Nutrient Related History [...] to re-order her tube feeding formula through [facility]. Care Coordination Authorization on file to speak with DME/Infusion Company: yes DME/Infusion Company that will provide needed supplies for home: [facility] . They delivered supplies 04/18/19. Indication for [...] 2 weeks. Time spent with patient (minutes):15 RAM PARAPROFESSIONAL documented in this encounter Plan of Treatment Upcoming Encounters Date Type Specialty Care Team Description 04/22/2022 Clinical Admitting/Central Communication Scheduling 04/26/2022 Appointment Radiology Mark Eastman M.D., M.S. [address] [place] [phone] 04/26/2022 Office Visit Otorhinolaryngology Roxanne Lanza APRN, C.N.P. [address] [place] [phone] 04/28/2022 Appointment Radiation Oncology Ursula Aguirre M.D. [address] [place] [phone] Scheduled Referrals Name Type Priority Associated Diagnoses Order S chedule Nutrition - Outpatient Referral Routine Malignant Neoplasm On ce for 1 Medical nutrition Of Supraglottic Occurre nces therapy consult (HCC) starting 12/2019 (clinic) until 0 documented as of this encounter Visit Diagnoses Diagnosis Dysphagia - Primary Malignant Neoplasm Of Supraglottic (HCC) documented in this encounter
--- OUTSIDE RECORDS SUMMARY | 2022-04-05 09:22 | XMS_ITS | Encounter Summary ---
:1955 Author Organization [facility] Address [address] [place] [address] Care Team Providers Name Role Phone Unavailable Primary Care Provider Unavailable Reason for Referral Outpatient (Routine) - Closed Specialty Diagnoses / Procedures Referred By Contact Refer red To Contact Nutrition Diagnoses Malignant Neoplasm Of Supraglottic (HCC) Summer Pérez P.A.-C., [facility] [address] [place] [phone] Referral ID Status Reason Start Date Expiration Date Visits Requ ested Visits Authorized [id number] Closed 08/03/2019 08/02/2020 1 1 MENT MANAGER Reason for Visit Outpatient (Routine) - Closed Specialty Diagnoses / Procedures Referred By Contact Refer red To Contact Nutrition Diagnoses Malignant Neoplasm Of Supraglottic (HCC) Summer Pérez P.A.-C., [facility].S [address] [place] [phone] Referral ID Status Reason Start Date Expiration Date Visits Requ ested Visits Authorized [id number] Closed 08/03/2019 08/02/2020 1 1 Encounter Details Date Type Department Care Team Description 08/30/2019 Hospital Encounter Department of Summer Pérez P.A.-C., M.S. [address] [place] [phone] Malignant Neoplasm Radiation Oncology Natasha Brandon C, RDN [address] [place] [phone] Of Supraglottic in [place], (HCC) [place] [address] [place] [phone] Social History Tobacco Use Types Packs/Day Years [...] do you attend lutheran or Never 2018 mu-ism services? Do you [...] 2019; completed April,. ?? Met with patient??and??her fcbemahb-hu-srj.?Patient??is hard of hearing and reads lips. For phonecontact Merlin (son)??states, his Darlin is the one to call, . ?? 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 Food/Nutrient Related [...] that will provide needed supplies for home: ??[facility]??. They delivered supplies??04/18/19. ?? Indication for Ongoing [...] weeks. ?? Time spent with patient (minutes):15 MENT MANAGER documented in this encounter Plan of Treatment Upcoming Encounters Date Type Specialty Care Team Description 04/22/2022 Clinical Admitting/Central Communication Scheduling 04/26/2022 Appointment Radiology Mark Eastman M.D., M.S. [address] [place] [phone] 04/26/2022 Office Visit Otorhinolaryngology Roxanne Lanza APRN, C.N.P. [address] [place] [phone] 04/28/2022 Appointment Radiation Oncology Ursula Aguirre M.D. [address] [place] [phone] Scheduled Referrals Name Type Priority Associated Diagnoses Order S chedule Nutrition - Outpatient Referral Routine Malignant Neoplasm On ce for 1 Medical nutrition Of Supraglottic Occurre nces therapy consult (HCC) starting (clinic) until 0 documented as of this encounter Visit Diagnoses Diagnosis Malignant Neoplasm Of Supraglottic (HCC) documented in this encounter
--- OUTSIDE RECORDS SUMMARY | 2022-04-05 09:22 | XMS_ITS | Encounter Summary ---
:1955 Author Organization [facility] Address [address] [place] [address] Care Team Providers Name Role Phone Unavailable Primary Care Provider Unavailable Reason for Referral Outpatient (Routine) - Closed Specialty Diagnoses / Procedures Referred By Contact Refer red To Contact Diagnoses Malignant Neoplasm Of Supraglottic (HCC) Summer Pérez P.A.-C.[facility] ion Procedures PET CT Skull to Thigh FDG [facility] PET/CT TRUNK M.S. [address] [place] [phone] Referral ID Status Reason Start Date Expiration Date Visits Requ ested Visits Authorized [id number] Closed 06/14/2019 06/13/2020 1 1 F TECHNOLOGIST Reason for Visit Outpatient (Routine) - Closed Specialty Diagnoses / Procedures Referred By Contact Refer red To Contact Diagnoses Malignant Neoplasm Of Supraglottic (HCC) Summer Pérez P.A.-C.[facility] ion Procedures PET CT Skull to Thigh FDG VA PET/CT TRUNK M.S. [address] [place] [phone] Referral ID Status Reason Start Date Expiration Date Visits Requ ested Visits Authorized [id number] Closed 06/14/2019 06/13/2020 1 1 Encounter Details Date Type Department Care Team Description 08/24/2019 Hospital Encounter Department of Summer Pérez Maligna nt Neoplasm Of Radiology, Malcom Torres MStacy Isaacs Supraglottic (HCC) Building, in [address] [place] [address] [place] [phone] [place], [place] [phone] (Work) [phone] Social History Tobacco Use Types Packs/Day Years [...] do you attend zoroastrianism or Never 2018 orthodoxy services? Do you [...] Radiology Mark Eastman M.D., M.S. [address] [place] [phone] 04/26/2022 Office Visit Otorhinolaryngology ZiebRoxanne muñiz APRN, C.N.PShital [address] [place] [phone] 04/28/2022 Appointment Radiation Oncology Ursula Aguirre M.D. [address] [place] [phone] documented as of this encounter Procedures Procedure Name Priority Date/Time Associated Comments Diagnosis PET CT SKULL TO RAD - Routine 08/24/2019 10:53 Malignant Neoplasm R esults for this THIGH (most inpatients AM STAFF TECHNOLOGIST Of Supraglottic procedur e are in and all (HCC) the results outpatients) section. documented in this encounter Results PET CT Skull to Thigh FDG (08/24/2019 10:53 AM STAFF TECHNOLOGIST) Anatomical Region Laterality Modality Body, Nuclear Medicine PET RST LOS, N/A Posi nasreen Emission Tomography (PET), PET ARZ LOS, Nuclear Medicine PET FLA Po sitron Emission Tomography (PET) LOS, Nuclear Medicine Specimen (Source) Anatomical Collection Method Collection Time Re ceived Time Location / / Volume Laterality 08/24/2019 12:36 PM STAFF TECHNOLOGIST Impressions 08/24/2019 12:59 PM STAFF TECHNOLOGIST No evidence for recurrent or metastatic supraglottic squamous cell carcinoma. Narrative 08/24/2019 12:59 PM STAFF TECHNOLOGIST EXAM: ??PET CT SKULL TO THIGH FDG Finger stick glucose level at the time o f the PET scan injection was 92 mg/dL. Patient followed standard dietary/fastin g requirements for this exam. RADIOPHARMACEUTICAL/MEDS: Route: intravenous fludeoxyglucose F 18 injection SKILLED NURSING (FDG F-18),15.01 millicurie TECHNIQUE: ??F-18 FDG PET/CT [...] RADIOPHARMACEUTICAL/MEDS: Route: intravenous fludeoxyglucose F 18 injection SKILLED NURSING (FDG F-18),15.01 millicurie TECHNIQUE: F-18 FDG PET/CT [...] cell carcinoma. Summer Pérez P.A.-C., M.S. IMG ND PROCEDURES documented in this encounter Visit Diagnoses Diagnosis Malignant Neoplasm Of Supraglottic (HCC) documented in this encounter Administered Medications Inactive Administered Medications - up to 3 most recent administrations Medication Order MAR Action Action Date Dose Rate Site fludeoxyglucose F 18 Given 08/24/2019 8:58 AM 15.01 millicuries injection SKILLED NURSING (FDG F-18) STAFF TECHNOLOGIST 15.01 millicurie, intravenous, Once, On Tue08/24/19 at 0915, For 1 dose documented in this encounter
--- OUTSIDE RECORDS SUMMARY | 2022-04-05 09:22 | XMS_ITS | Encounter Summary ---
:1955 Author Organization [facility] Address [address] [place] [address] Care Team Providers Name Role Phone Unavailable Primary Care Provider Unavailable Reason for Visit Reason Onset Date Comments formula 10/16/2019 Encounter Details Date Type Department Care Team Description 10/16/2019 Clinical Communication Division of General Elder, Shahid Cisneros, formula Internal Medicine in [place], [place] [address] [facility] [address] [place] [phone] Social History Tobacco Use Types Packs/Day Years [...] do you attend zoroastrianism or Never 2018 nondenominational services? Do you [...] Green, AYLEEN, LD - 10/16/2019 4:16 PM SUPERVISOR CARDING Reviewed Authorization to Release Information in medical [...] she has seen Natasha Brandon RDN in [place] and she suggested the enteral feedings be restarted. Sincenilsa was seen in [place] about a month ago Natasha can prepare the orders for a [place] MD to review and sign to renew them for Ira. For us to do that in [place] we need to see Obdulia. Follow-up plan: Darlin verbalized understanding and she will follow up with the [place] team. RVISOR CARDING Telephone Encounter - Marie Green RDN, JUANITO - 10/16/2019 2:44 PM SUPERVISOR CARDING Reviewed Authorization to Release Information in medical record. Authorization is on file. Problem: Received a call to change her enteral formula with Gary. Advice given: Left a message for her that per her medical record on 08/02/19 that her nutrition program is follow locally by her primary MD and Natasha Brandon RDN and [place]. [place] his not writing her enteral orders. Follow-up plan: If she would like to return to [place] we would be glad to see her and assess a change in enteral formula as needed. RVISOR CARDING Telephone Encounter - Lucila Briceño Oli - 10/16/2019 1:52 PM CST Patient called Reason for Calling:Formula Detailed Message:The patient requests to have a new formula order send to [place] Best time to be reached:any time Contact patient by Phone number: Thank you, PLEASE REPLY TO THE SECRETARIAL POOL WHEN REPLYING TO THIS MESSAGE--p RST END VIVIANE NICKERSON. Thank you! RVISOR CARDING documented in this encounter Plan of Treatment Upcoming Encounters Date Type Specialty Care Team Description 04/22/2022 Clinical Admitting/Central Communication Scheduling 04/26/2022 Appointment Radiology Mark Eastman M.D., M.S. [address] [place] [phone] 04/26/2022 Office Visit Otorhinolaryngology Roxanne Lanza APRN, C.N.P. [address] [place] [address] 04/28/2022 Appointment Radiation Oncology Ursula Aguirre M.D. [address] [place] [phone] documented as of this encounter Visit Diagnoses Not on filedocumented in this encounter
--- OUTSIDE RECORDS SUMMARY | 2022-04-05 09:22 | XMS_ITS | Encounter Summary ---
:1955 Author Organization [facility] Address [address] [place] [address] Care Team Providers Name Role Phone Unavailable Primary Care Provider Unavailable Reason for Referral Outpatient (Routine) - Closed Specialty Diagnoses / Procedures Referred By Contact Refer red To Contact Diagnoses Home Enteral Nutrition Rajiv Adler M.D. [facility] Procedures GI Check/Exchange/Adjust Percutaneous Endoscopic Gastrostomy (PEG) [address] [place] [address] Referral ID Status Reason Start Date Expiration Date Visits Requ ested Visits Authorized [id number] Closed 10/31/2019 10/30/2020 1 1 Encounter Details Date Type Department Care Team Description 10/31/2019 Orders Only Division of Elder, Chio S, Home Enter al Endocrinology in R.N. Nutrition (Primary [place], [place] [address] [facility] D[facility]) [address] [place] [phone] [phone] Social History Tobacco Use Types Packs/Day Years [...] do you attend catholic or Never 2018 church services? Do you belong to any clubs or No 02/21/2019 organizations such as catholic groups, unions, [employer] or athletic groups, or school groups? How [...] Radiology Mark Eastman M.D., M.S. [address] [place] [phone] 04/26/2022 Office Visit Otorhinolaryngology Roxanne Lanza, PAPER BAG MAKER, C.N.P. [address] [place] [phone] 04/28/2022 Appointment Radiation Oncology Ursula [place]re M.D. [address] [place] [phone] documented as of this encounter Visit Diagnoses Diagnosis Home Enteral Nutrition - Primary documented in this encounter
--- OUTSIDE RECORDS SUMMARY | 2022-04-05 09:22 | XMS_ITS | Encounter Summary ---
:1955 Author Organization [facility] Address [address] [place] [address] Care Team Providers Name Role Phone Unavailable Primary Care Provider Unavailable Encounter Details Date Type Department Care Team Description 09/21/2019 Orders Only Department of Summer Pérez, Malignant Joao plasm Of Radiation Oncology in P.A.-C., M .S. Supraglottic (HCC) [facility] a [address] [facility] (Primary Dx) [address] [place] [address] [phone] Social History Tobacco Use Types Packs/Day Years [...] do you attend temple or Never 2018 oriental orthodox services? Do [...] Radiology Mark Eastman M.D., M.S. [address] [place] [phone] 04/26/2022 Office Visit Otorhinolaryngology Roxanne Lanza APRN, C.N.P. [address] [place] [phone] 04/28/2022 Appointment Radiation Oncology Ursula [place] M.D. [address] [place] [phone] documented as of this encounter Results (ABNORMAL) [...] Organization Address City/State/ZIP Code Phon e Number [facility]- [address] [place] [address] [place] [address] System in [place] 2199 documented in this encounter Visit Diagnoses Diagnosis Malignant Neoplasm Of Supraglottic (HCC) - Primary documented in this encounter
--- OUTSIDE RECORDS SUMMARY | 2022-04-05 09:22 | XMS_ITS | Encounter Summary ---
:1955 Author Organization [facility] Address [address] [place] [address] Care Team Providers Name Role Phone Unavailable Primary Care Provider Unavailable Encounter Details Date Type Department Care Team Description 10/17/2019 Clinical Communication Department of Ursula Aguirre Radiation Oncology in [place], [place] [address] [facility] [address] [place] [phone] Social History Tobacco Use Types Packs/Day Years [...] do you attend methodist or Never 2018 congregation services? Do you [...] for her feeding tube formula. Darlin called [place] to get refilled, but they said they would have to see Obdulia prior to refilling...They told her since she is being seen here by carter and followed by LILLIE that we could take care of it??? Phone number: mobile Is it okay to leave a voicemail on answering machine with test results? Yes Pharmacy (if medication related): [facility] [address] [place] [address] - [address] [place] [address] 150 [facility] [address] Kaitlynn Kamara ITY PROJECT MANAGER documented in this encounter Plan of Treatment Upcoming Encounters Date Type Specialty Care Team Description 04/22/2022 Clinical Admitting/Central Communication Scheduling 04/26/2022 Appointment Radiology Mark Eastman M.D., M.S. [address] [place] [phone] 04/26/2022 Office Visit Otorhinolaryngology Roxanne Lanza, AS400 ADMINISTRATOR, C.N.P. [address] [place] [phone] 04/28/2022 Appointment Radiation Oncology Ursula [place]re M.D. [address] [place] [phone] documented as of this encounter Visit Diagnoses Not on filedocumented in this encounter
--- OUTSIDE RECORDS SUMMARY | 2022-04-05 09:22 | XMS_ITS | Encounter Summary ---
:1955 Author Organization [facility] Address [address] [place] [address] Care Team Providers Name Role Phone Unavailable Primary Care Provider Unavailable Encounter Details Date Type Department Care Team Description 10/04/2019 Documentation Department of Radiation Chinyere Brandon RDN Oncology in [place], [address] [place], [place] 1821 [facility] [address] [place] [address] [phone] Social History Tobacco Use Types Packs/Day Years [...] do you attend lutheran or Never 2018 tenriism services? Do you [...] Radiology Mark Eastman M.D., M.S. [address] [place] [phone] 04/26/2022 Office Visit Otorhinolaryngology Roxanne Lanza APRN, C.N.P. [address] [place] [phone] 04/28/2022 Appointment Radiation Oncology Ursula [place]re M.D. [address] [place] [address] documented as of this encounter Visit Diagnoses Not on filedocumented in this encounter Additional Health Concerns Infection Onset Date Last Indicated Resolved Time COVID19 Pending 03/12/2020 03/12/2020 03/12/2020 9:30 PM CDT COVID19 Pending 06/10/2020 06/10/2020 06/10/2020 8:15 PM CDT COVID19 Pending 10/19/2021 10/19/2021 10/20/2021 1:47 AM SALES VICE PRESIDENT documented as of this encounter
--- OUTSIDE RECORDS SUMMARY | 2022-04-05 09:22 | XMS_ITS | Encounter Summary ---
:1955 Author Organization [facility] Address [address] [place] [address] Care Team Providers Name Role Phone Unavailable Primary Care Provider Unavailable Reason for Visit Reason Comments Tube Problem Encounter Details Date Type Department Care Team Description 10/31/2019 Clinical Communication Division of Padma Vieira Problem Endocrinology in A, NITRIC ACID CONCENTRATOR OPERATOR, C.N.P., [facility].S. [address] [facility] [address] [place] [phone] [phone] Social History Tobacco Use Types Packs/Day Years [...] do you attend religious or Never 2018 restorationism services? Do you [...] the time of her last appointment at [facility] the skin disk was at a 4. PLAN I discussed with Darlni that the tube is due for replacement [...] be reached: Any Phone number for caller: [phone] Thank you, Miguel PLEASE REPLY TO THE SECRETARIAL POOL WHEN REPLYING TO THIS MESSAGE--p RST END VIVIANE NICKERSON. Thank you! documented in this encounter Plan of Treatment Upcoming Encounters Date Type Specialty Care Team Description 04/22/2022 Clinical Admitting/Central Communication Scheduling 04/26/2022 Appointment Radiology Mark Eastman M.D., M.S. [address] [place] [phone] 04/26/2022 Office Visit Otorhinolaryngology Roxanne Lanza APRN, C.N.P. [address] [place] [phone] 04/28/2022 Appointment Radiation Oncology Ursula Aguirre M.D. 200 [place] [address] documented as of this encounter Visit Diagnoses Not on filedocumented in this encounter
--- OUTSIDE RECORDS SUMMARY | 2022-04-05 09:22 | XMS_ITS | Encounter Summary ---
:1955 Author Organization [facility] Address [address] [place] [address] Care Team Providers Name Role Phone Unavailable Primary Care Provider Unavailable Reason for Referral Speech Pathology (Routine) - Closed Specialty Diagnoses / Procedures Referred By Contact Refer red To Contact Diagnoses Malignant Neoplasm Of Supraglottic (HCC) Summer Pérez P.A.-C., [place] [facility] Procedures MAGNETIC PROSPECTING SUPERVISOR - Ongoing treatment M.S. 200 [place], [place] [address] Referral ID Status Reason Start Date Expiration Date Visits Requ ested Visits Authorized [id number] Closed 09/11/2019 09/10/2020 1 1 WALL FINISHER Outpatient (Routine) - Closed Specialty Diagnoses / Procedures Referred By Contact Refer red To Contact Diagnoses Malignant Neoplasm Of Supraglottic (HCC) Summer Pérez P.A.-C., [place] [facility] Procedures FL Swallow Function with Video and Speech or OT M.S. 200 [place] [address] Referral ID Status Reason Start Date Expiration Date Visits Requ ested Visits Authorized [id number] Closed 09/11/2019 09/10/2020 1 1 WALL FINISHER Speech Pathology (Routine) - Closed Specialty Diagnoses / Procedures Referred By Contact Refer red To Contact Diagnoses Malignant Neoplasm Of Supraglottic (HCC) Summer Pérez P.A.-C., [place] [facility] Procedures MAGNETIC PROSPECTING SUPERVISOR Dysphagia evaluate and treat M.S. [address] [place] [address] Referral ID Status Reason Start Date Expiration Date Visits Requ ested Visits Authorized [id number] Closed 09/11/2019 09/10/2020 1 1 WALL FINISHER Encounter Details Date Type Department Care Team Description 09/11/2019 Orders Only Department of Summer Pérez, Malignant Joao plasm Of Radiation Oncology in [place] Torres Supraglottic (HCC) [facility] a [address] [facility] (Primary Dx) [address] [place] [phone] [phone] Social History Tobacco Use Types Packs/Day Years [...] or relatives? How often do you attend nondenominational or Never 2018 anabaptism services? Do you belong to any clubs or No 02/21/2019 organizations such as nondenominational groups, unions, fraternal or athletic groups, or [...] Radiology Mark Eastman M.D., M.S. [address] [place] [phone] 04/26/2022 Office Visit Otorhinolaryngology Roxanne Lanza, STEWARD/STEWARDESS CHIEF CARGO VESSEL, C.N.P. [address] [place] [phone] 04/28/2022 Appointment Radiation Oncology Ursula Aguirre M.D. [address] [place] [phone] documented as of this encounter Results FL Swallow Function with Video and Speech or OT (09/28/2019 2:15 PM DRY WALL FINISHER) Anatomical Region Laterality Modality Gastro Intestinal, Abdominal RST LOS, Abdominal ARZ N/A Digital Radiography LOS, Abdominal FLA LOS Specimen (Source) Anatomical Collection Method Collection Time Re ceived Time Location / / Volume Laterality 09/28/2019 2:31 PM DRY WALL FINISHER Impressions 09/28/2019 2:33 PM DRY WALL FINISHER Aspiration of liquid consistencies and deep penetration of applesauce. See speech pathology note fo r details. Narrative 09/28/2019 2:33 PM DRY WALL FINISHER EXAM: ??FL SWALLOW FUNCTION WITH VIDEO AND [...]
--- OUTSIDE RECORDS SUMMARY | 2022-04-05 09:22 | XMS_ITS | Encounter Summary ---
:1955 Author Organization [facility] Address [address] [place] [address] Care Team Providers Name Role Phone Unavailable Primary Care Provider Unavailable Reason for Referral Outpatient (Routine) - Closed Specialty Diagnoses / Procedures Referred By Contact Refer red To Contact Radiation Oncology Summer Pérez P.A.-C., IN[facility] [address] [place] [phone] Referral ID Status Reason Start Date Expiration Date Visits Requ ested Visits Authorized [id number] Closed 08/03/2019 08/02/2020 1 1 RVISOR FERTILIZER Reason for Visit Outpatient (Routine) - Closed Specialty Diagnoses / Procedures Referred By Contact Refer red To Contact Radiation Oncology Summer Pérez P.A.-C., IN[facility] [address] [place] [phone] Referral ID Status Reason Start Date Expiration Date Visits Requ ested Visits Authorized [id number] Closed 08/03/2019 08/02/2020 1 1 Encounter Details Date Type Department Care Team Description 08/03/2019 - Hospital Encounter Department of Summer Pérez P.A.-C., M.S. [address] [place] [phone] Malignant Neoplasm Of 08/06/2019 Radiation Oncology Jannet Cross R.N. [address] [place] [address] Supraglottic (HCC) in [place], (Primary Dx) [place] [address] [facility] [place] [address] Social History Tobacco Use Types Packs/Day Years [...] do you attend adventist or Never 2018 episcopalian services? Do you [...] She returns to clinic today for schedule Billing And Quality Technician follow up visit. Treatment Course: 1x H&N [...] by: Jannet Cross R.N. 08/06/2019 12:32 PM SUPERVISOR FERTILIZER RVISOR FERTILIZER documented in this encounter Plan of Treatment Upcoming Encounters Date Type Specialty Care Team Description 04/22/2022 Clinical Admitting/Central Communication Scheduling 04/26/2022 Appointment Radiology Mark Eastman M.D., M.S. [address] [place] [phone] 04/26/2022 Office Visit Otorhinolaryngology Roxanne Lanza APRN, C.N.P. [address] [place] [phone] 04/28/2022 Appointment Radiation Oncology Ursula Aguirre M.D. 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
--- OUTSIDE RECORDS SUMMARY | 2022-04-05 09:22 | XMS_ITS | Encounter Summary ---
:1955 Author Organization [facility] Address [address] [place] [address] Care Team Providers Name Role Phone Unavailable Primary Care Provider Unavailable Reason for Referral Outpatient (Routine) - Closed Specialty Diagnoses / Procedures Referred By Contact Refer red To Contact Radiation Oncology Summer Pérez P.A.-C., [facility] [address] [place] [phone] Referral ID Status Reason Start Date Expiration Date Visits Requ ested Visits Authorized [id number] Closed 08/03/2019 08/02/2020 1 1 VERY UNIT OPERATOR Encounter Details Date Type Department Care Team Description 08/03/2019 Orders Only Department of Radiation Summer Pérez P.A .-C., Oncology in [place] [address] [place] [phone] (Wo rk) Social History Tobacco Use Types [...] do you attend advent or Never 2018 methodist services? Do you [...] Radiology Mark Eastman M.D., M.S. [address] [place] [phone] 04/26/2022 Office Visit Otorhinolaryngology Roxanne Lanza APRN, C.N.P. [address] [place] [phone] 04/28/2022 Appointment Radiation Oncology Ursula Aguirre M.D. [address] [place] [phone] Scheduled Referrals Name Type Priority Associated Order Schedule Diagnoses Radiation Oncology Outpatient Referral Routine 1 Occurrences nurse visit starting 2018 (clinic) until 0 documented as of this encounter Visit Diagnoses Not on filedocumented in this encounter
--- OUTSIDE RECORDS SUMMARY | 2022-04-05 09:22 | XMS_ITS | Encounter Summary ---
:1955 Author Organization [facility] Address [address] [place] [address] Care Team Providers Name Role Phone Unavailable Primary Care Provider Unavailable Reason for Referral Outpatient (Routine) - Closed Specialty Diagnoses / Procedures Referred By Contact Refer red To Contact Social Summer Dickens P.A.-C ., M.S. [address] [phone] Referral ID Status Reason Start Date Expiration Date Visits Requ ested Visits Authorized [id number] Closed 09/17/2019 09/16/2020 1 1 LBENZENE CRACKING SUPERVISOR Reason for Visit Outpatient (Routine) - Closed Specialty Diagnoses / Procedures Referred By Contact Refer red To Contact Summer Cota P.A.-C ., M.S. [facility] [address] [place] [phone] Referral ID Status Reason Start Date Expiration Date Visits Requ ested Visits Authorized [id number] Closed 09/17/2019 09/16/2020 1 1 Encounter Details Date Type Department Care Team Description 09/20/2019 Hospital Encounter Department of Summer Pérez P.A.-C., M.S. [address] [place] [phone] Malignant Neoplasm Of Radiation Oncology Ibeth Vanessa Supraglottic (HCC) in [place], [place] [address] [place] [phone] Social History Tobacco Use Types Packs/Day Years [...] do you attend zoroastrian or Never 2018 congregation services? Do you [...] REASON FOR VISIT Ms. Narayan, and her [id number] Darlin Narayan, met with this case management social worker to discuss ideas forresources to meet specific needs. HISTORY OF PRESENT ILLNESS For further information on psycho/social issues, please see the consult completed by this case management social worker on 04/12/19. The patient is a 64 y.o. female from [place], [place] who is being seen in follow-up to radiation therapy for treatment of Patient Active Problem List Diagnosis ??? Malignant Neoplasm Of Supraglottic (HCC) ??? Dysphagia . Social Work is providing ongoing care related to coping, financial concerns, mood, and resources. OBJECTIVE Ms. Obdulia Narayan lives in [place], [place] with her son Merlin and [id number]-ivw Darlin, as well as another of her sons, and Merlin and Darlin's 4 children. Today she and her tjnwhsad-xf-jun were looking for ideas to better support [...] to communicate; however, the presence of her tkgikfdq-gx-cvv Darlin helped greatly. Darlin shared that Ms. Narayan has been fairly anxious lately and has stayed in her room more that she used to. We discussed the idea of Ms. Narayan seeing her primary care physician, Dr. De La Fuente, to share her concerns about mood and isolation. This case management social worker also provided information about [facility], which might be a good way to make sure Ms. Narayan is receiving the care she needs in her home; this could also be explored at an appointment with Dr. De La Fuente. Information about assisted living options in [place] was provided, as that had been requested prior to today's consult. Finally, Ms. Narayan expressed interest in transportation options within [place], which could make it possible for her to get out independently if she feels up to it. INTERVENTIONS PLAN 1. dye house vat worker provided information on [facility] services, and how to contact. 2. dye house vat worker provided information on assisted living facilities in [place], [place]. 3. dye house vat worker explored local transportation options in [place], [place], and mailed information on [facility] to Ms. Narayan's fdulgiks-pn-ymj. Face to face time (for billing purposes): 20 minutes documented in this encounter Plan of Treatment Upcoming Encounters Date Type Specialty Care Team Description 04/22/2022 Clinical Admitting/Central Communication Scheduling 04/26/2022 Appointment Radiology Mark Eastman M.D., M.S. [address] [place] [phone] 04/26/2022 Office Visit Otorhinolaryngology Roxanne Lanza APRN, C.N.P. [address] [place] [phone] 04/28/2022 Appointment Radiation Oncology Ursula Aguirre M.D. [address] [place] [phone] Scheduled Referrals Name Type Priority Associated Diagnoses Order S [facility] Social Work Outpatient Referral Routine Once for 1 office visit Occurrences sta rting (clinic) 09/20/2019 unti l 09/20/2019 documented as of this encounter Visit Diagnoses Diagnosis Malignant Neoplasm Of Supraglottic (HCC) documented in this encounter
--- OUTSIDE RECORDS SUMMARY | 2022-04-05 09:22 | XMS_ITS | Encounter Summary ---
:1955 Author Organization [facility] Address [address] [place] [address] Care Team Providers Name Role Phone Unavailable Primary Care Provider Unavailable Reason for Visit Reason Comments Scheduling Encounter Details Date Type Department Care Team Description 10/31/2019 Documentation Division of General Ashley Dc, Scheduling Internal Medicine in [place], [place] [address] [facility] [address] [place] [phone] Social History Tobacco Use Types Packs/Day Years [...] do you attend jew or Never 2018 hoahaoism services? Do you [...] Radiology Mark Eastman M.D., M.S. [address] [place] [phone] 04/26/2022 Office Visit Otorhinolaryngology Roxanne Lanza, SAFETY AND SECURITY OFFICER, C.N.P. [address] [place] [phone] 04/28/2022 Appointment Radiation Oncology Ursula Aguirre M.D. [address] [place] [phone] documented as of this encounter Visit Diagnoses Not on filedocumented in this encounter
--- OUTSIDE RECORDS SUMMARY | 2022-04-05 09:22 | XMS_ITS | Encounter Summary ---
:1955 Author Organization [facility] Address [address] [place] [address] Care Team Providers Name Role Phone Unavailable Primary Care Provider Unavailable Reason for Visit Outpatient (Routine) - Canceled Specialty Diagnoses / Procedures Referred By Contact Refer red To Contact Diagnoses Malignant Neoplasm Of Supraglottic (HCC) Summer Pérez P.A.-C., [place] Reg ion Procedures FL Swallow Function with Video and Speech or OT M.S. [address] [place] [address] [phone] Referral ID Status Reason Start Date Expiration Date Visits V isits Requested Authorized [id number] Canceled 06/14/2019 06/13/2020 1 1 Encounter Details Date Type Department Care Team Description 08/24/2019 Hospital Encounter Department of Radiology, Summer Pérez P.A.-C., M.S. [address] [place] [address] [phone] No Show [place], in Linda Nash M.S., CCC-PUMP SERVICER [address] [place] [phone] [place], [place] [address] [place] [address] [phone] Social History Tobacco Use Types Packs/Day [...] do you attend nondenominational or Never 2018 mandaeism services? Do you belong to any clubs or No 02/21/2019 organizations such as nondenominational groups, unions, [employer] or athletic groups, or school groups? How [...] Comments Blood Pressure 192/101 08/24/2019 12:51 PM TRIMMING DEPARTMENT BLOCKER Pulse - - Temperature - - Respiratory [...] Radiology Mark Eastman M.D., M.S. [address] [place] [address] [phone] 04/26/2022 Office Visit Otorhinolaryngology Roxanne Lanza APRN, C.N.P. [address] [place] [phone] 04/28/2022 Appointment Radiation Oncology Ursula Aguirre M.D. [address] [place] [phone] documented as of this encounter Visit Diagnoses Not on filedocumented in this encounter
--- OUTSIDE RECORDS SUMMARY | 2022-04-05 09:22 | XMS_ITS | Encounter Summary ---
:1955 Author Organization [facility] Address [address] [place] [address] Care Team Providers Name Role Phone Unavailable Primary Care Provider Unavailable Encounter Details Date Type Department Care Team Description 09/20/2019 Clinical Communication Department of Ursula Aguirre Radiation Oncology in Kimberley Bacon [place], [place] [address] [facility] [address] [place] [phone] Social History Tobacco Use Types Packs/Day Years [...] you attend jehovah's witness or Never 2018 quaker services? Do you belong to any clubs [...] Radiology Mark Eastman M.D., M.S. [address] [place] [address] [phone] 04/26/2022 Office Visit Otorhinolaryngology Roxanne Lanza APRN, C.N.P. [address] [place] [phone] 04/28/2022 Appointment Radiation Oncology Ursula Aguirre M.D. [address] [place] [address] [phone] documented as of this encounter Visit Diagnoses Not on filedocumented in this encounter
--- OUTSIDE RECORDS SUMMARY | 2022-04-05 09:22 | XMS_ITS | Encounter Summary ---
:1955 Author Organization [facility] Address [address] [place] [address] Care Team Providers Name Role Phone Unavailable Primary Care Provider Unavailable Reason for Referral Outpatient (Routine) - Closed Specialty Diagnoses / Procedures Referred By Contact Refer red To Contact Social Work Summer Pérez P.A.-C ., M.S. [facility] Region [address] [place] [phone] Referral ID Status Reason Start Date Expiration Date Visits Requ ested Visits Authorized [id number] Closed 09/17/2019 09/16/2020 1 1 CTOR OF MATERIALS Encounter Details Date Type Department Care Team Description 09/17/2019 Orders Only Department of Radiation Jannet Cross R.N. Oncology in [place], [address] [place] [address] 1821 [facility] [phone] [place] [address]397 [phone] Social History Tobacco Use Types Packs/Day Years [...] do you attend druze or Never 2018 catholic services? Do you [...] Radiology Mark Eastman M.D., M.S. [address] [place] [phone] 04/26/2022 Office Visit Otorhinolaryngology Roxanne Lanza APRN, C.N.P. [address] [place] [phone] 04/28/2022 Appointment Radiation Oncology Ursula Aguirre M.D. [address] [place] [phone] Scheduled Referrals Name Type Priority Associated Diagnoses Order S [facility] Social Work Outpatient Referral Routine Expected : office visit 09/17/2019 (clinic) (Approximate), Expires: 09/17/2020 documented as of this encounter Visit Diagnoses Not on filedocumented in this encounter
--- OUTSIDE RECORDS SUMMARY | 2022-04-05 09:22 | XMS_ITS | Encounter Summary ---
:1955 Author Organization [facility] Address [address] [place] [address] Care Team Providers Name Role Phone Unavailable Primary Care Provider Unavailable Encounter Details Date Type Department Care Team Description 08/30/2019 Orders Only Department of Summer Pérez, Malignant Joao plasm Of Radiation Oncology in P.A.-C., M .S. Supraglottic (HCC) [facility] a [address] [facility] (Primary Dx) [address] [place] [phone] [phone] Social History Tobacco Use Types Packs/Day Years [...] do you attend buddhism or Never 2018 yazidism services? Do you [...] Radiology Mark Eastman M.D., M.S. [address] [place] [phone] 04/26/2022 Office Visit Otorhinolaryngology Roxanne Lanza APRN, C.N.P. [address] [place] [phone] 04/28/2022 Appointment Radiation Oncology Ursula Aguirre M.D. 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
--- OUTSIDE RECORDS SUMMARY | 2022-04-05 09:22 | XMS_ITS | Encounter Summary ---
:1955 Author Organization [facility] Address [address] [place] [address] Care Team Providers Name Role Phone Unavailable Primary Care Provider Unavailable Reason for Referral Outpatient (Routine) - Closed Specialty Diagnoses / Procedures Referred By Contact Refer red To Contact Diagnoses Home Enteral Nutrition Rajiv Adler M.D. [facility] Procedures GI Check/Exchange/Adjust Percutaneous Endoscopic Gastrostomy (PEG) [address] [place] [phone] Referral ID Status Reason Start Date Expiration Date Visits Requ ested Visits Authorized [id number] Closed 10/31/2019 10/30/2020 1 1 Reason for Visit Auth/Cert Specialty Diagnoses / Procedures Referred By Contact Refer red To Contact Diagnoses Home Enteral Nutrition Procedures EGD ? PERCUTANEOUS ENDOSCOPIC GASTROSTOMY/JEJUNOSTOMY Referral ID Status Reason Start Date Expiration Date Visits Requ ested Visits Authorized [id number] 1 1 Encounter Details Date Type Department Care Team Description 11/02/2019 Hospital Division of Rajiv Adler Home Enteral Encounter Gastroenterology guanakito Cisneros M.D. Nutrition [place], [place] [address] [facility] [address] [place] [address] [phone] Social History Tobacco Use Types Packs/Day Years [...] do you attend mandaeism or Never 2018 hinduism services? Do you [...] Procedure Department : DIVISION OF GASTROENTEROLOGY IN [place], [place] SUBJECTIVE Past Medical History: Diagnosis Date [...] ??? None OBJECTIVE Procedure Patient presents to [facility] Ramakrishna 6 Patient being seen for: PEG [...] Reading and Seeing Education: PEG/PEJ Wallet Card ([id number]) Supplies sent with patient: None Unable to [...] Radiology Mark Eastman M.D., M.S. [address] [place] [phone] 04/26/2022 Office Visit Otorhinolaryngology Roxanne Lanza, CORE WINDER, C.N.P. [address] [place] [phone] 04/28/2022 Appointment Radiation Oncology Ursula Aguirre M.D. [address] [place] [phone] documented as of this encounter Procedures Procedure [...]
--- OUTSIDE RECORDS SUMMARY | 2022-04-05 09:22 | XMS_ITS | Encounter Summary ---
:1955 Author Organization [facility] Address [address] [place] [address] Care Team Providers Name Role Phone Unavailable Primary Care Provider Unavailable Encounter Details Date Type Department Care Team Description 11/26/2019 Clinical Communication Department of Ursula Aguirre Radiation Oncology [place] [address] [facility] [address] [place] [address] [phone] Social History Tobacco Use Types Packs/Day Years [...] do you attend evangelical or Never 2018 anabaptism services? Do you [...] Radiology Mark Eastman M.D., M.S. [address] [place] [address] [phone] 04/26/2022 Office Visit Otorhinolaryngology Roxanne Lanza APRN, C.N.P. [address] [place] [address] [phone] 04/28/2022 Appointment Radiation Oncology Ursula Aguirre M.D. [address] [place] [address] [phone] documented as of this encounter Visit Diagnoses Not on filedocumented in this encounter
--- OUTSIDE RECORDS SUMMARY | 2022-04-05 09:22 | XMS_ITS | Encounter Summary ---
:1955 Author Organization [facility] Address [address] [place] [address] Care Team Providers Name Role Phone Unavailable Primary Care Provider Unavailable Reason for Referral Speech Pathology (Routine) - Closed Specialty Diagnoses / Procedures Referred By Contact Refer red To Contact Diagnoses Malignant Neoplasm Of Supraglottic (HCC) Summer Pérez P.A.-C., [place] Reg ion Procedures CREOSOTING ENGINEER - Ongoing treatment M.S. 200 [place] [phone] Referral ID Status Reason Start Date Expiration Date Visits Requ ested Visits Authorized [id number] Closed 10/15/2019 10/14/2020 1 1 AGE AND MAIL AGENT Outpatient (Routine) - Closed Specialty Diagnoses / Procedures Referred By Contact Refer red To Contact Diagnoses Malignant Neoplasm Of Supraglottic (HCC) Summer Pérez P.A.-C. [place] Reg ion Procedures FL Swallow Function with Video and Speech or OT M.S. 200 [place] [address] Referral ID Status Reason Start Date Expiration Date Visits Requ ested Visits Authorized [id number] Closed 10/15/2019 10/14/2020 1 1 AGE AND MAIL AGENT Speech Pathology (Routine) - Closed Specialty Diagnoses / Procedures Referred By Contact Refer red To Contact Diagnoses Malignant Neoplasm Of Supraglottic (HCC) Summer Pérez P.A.-C., [place] Reg ion Procedures CREOSOTING ENGINEER Dysphagia evaluate and treat M.S. [address] [place] [address] Referral ID Status Reason Start Date Expiration Date Visits Requ ested Visits Authorized [id number] Closed 10/15/2019 10/14/2020 1 1 AGE AND MAIL AGENT Encounter Details Date Type Department Care Team Description 10/15/2019 Orders Only Department of Summer Pérez, Malignant Joao plasm Of Radiation Oncology in Andrea Torres Sup[facility]lottic [facility]HCC[facility] [address] [facility] (Primary Dx) [address] [place] [phone] [phone] Social History Tobacco Use Types Packs/Day Years [...] do you attend pentecostalism or Never 2018 latter-day services? Do you [...] Radiology Mark Eastman M.D., M.S. [address] [place] [phone] 04/26/2022 Office Visit Otorhinolaryngology Roxanne Lanza APRN, C.N.P. [address] [place] [phone] 04/28/2022 Appointment Radiation Oncology Ursula Aguirre M.D. [address] [place] [phone] documented as of this encounter Results FL [...]
--- OUTSIDE RECORDS SUMMARY | 2022-04-05 09:22 | XMS_ITS | Encounter Summary ---
:1955 Author Organization [facility] Address [address] [place] [address] Care Team Providers Name Role Phone Unavailable Primary Care Provider Unavailable Reason for Visit Auth/Cert Specialty Diagnoses / Procedures Referred By Contact Refer red To Contact Diagnoses Home Enteral Nutrition Procedures EGD ? PERCUTANEOUS ENDOSCOPIC GASTROSTOMY/JEJUNOSTOMY Referral ID Status Reason Start Date Expiration Date Visits Requ ested Visits Authorized [id number] 1 1 Encounter Details Date Type Department Care Team Description 11/02/2019 Hospital Encounter Department of Rajiv Adler, Radiology, Ramakrishna Chu [facility], in [address] [place] [place] [phone] [place], [place] [phone] (Wo rk) [phone] Social History Tobacco Use Types Packs/Day Years [...] do you attend yazidism or Never 2018 druze services? Do you [...] Radiology Mark Eastman M.D., M.S. [address] [place] [phone] 04/26/2022 Office Visit Otorhinolaryngology Roxanne Lanza, CREDIT OPERATIONS PROCESSOR, C.N.P. [address] [place] [address] [phone] 04/28/2022 Appointment Radiation Oncology Ursula Aguirre M.D. [address] [place] [phone] documented as of this encounter Procedures Procedure [...]
--- OUTSIDE RECORDS SUMMARY | 2022-04-05 09:22 | XMS_ITS | Encounter Summary ---
:1955 Author Organization [facility] Address [address] [place] [address] Care Team Providers Name Role Phone Unavailable Primary Care Provider Unavailable Reason for Visit Speech Pathology (Routine) - Closed Specialty Diagnoses / Procedures Referred By Contact Refer red To Contact Diagnoses Malignant Neoplasm Of Supraglottic (HCC) Summer Pérez P.A.-C., [facility] AUTO BODY ESTIMATOR Dysphagia evaluate and treat M.S. [address] [place] [phone] Referral ID Status Reason Start Date Expiration Date Visits Requ ested Visits Authorized [id number] Closed 09/11/2019 09/10/2020 1 1 Encounter Details Date Type Department Care Team Description 09/28/2019 Comprehensive Visit Department of Summer Pérez P.A.-C., M.S. [address] [place] [phone] Dysphagia Oropharyngeal Phase (Primary D x); Neurology in Bia Linton M.S., [facility]-AUTO BODY ESTIMATOR [address] [place] [phone] Malignant Neoplasm Of Supraglottic (HCC) [place], [place] [address] [place] [address] [phone] Social History Tobacco Use Types Packs/Day Years [...] do you attend mandaeism or Never 2018 baptist services? Do you [...] this encounter Consult Notes Bia Linton M.S., CCC-AUTO BODY ESTIMATOR - 09/28/2019 1:00 PM CST Speech Pathology [...] evaluations. Mrs. Narayan was accompanied by her airhhxmc-pf-ogx to today's appointment. She reports that, in [...] Breathiness: (-4) Profound Harsh: (1) Mild Resonance ([facility] Function)): Within Normal Limits (WNL) Articulation: Impaired [...] the swallow Aspiration Yes, after the swallow [place] Presentation Cup, Self Fed Patient Positioning Upright [...] persons Understandability of Speech: 50: Usually understandable, zfke-ar-yvkr contact necessary Normalcy of Diet: 50: Soft, [...] in detail with the patient and her ptnokdfs-yd-efm, who asked several thoughtful questions which were answered to their satisfaction within the AUTO BODY ESTIMATOR scope of practice. We discussed that the [...] today's evaluation are available for review on PumantEADS Diagnosis: Moderate-severe pharyngeal dysphagia following radiation treatment for laryngeal carcinoma Functional Oral Intake Scale: Level 3 - Tube dependent with consistent oral intake of food or liquid Plan Follow-up with Speech Pathology as an outpatient should dysphagia symptoms worsen or as deemed appropriate by the referring physician. OLOGY FACULTY MEMBER documented in this encounter Plan of Treatment Upcoming Encounters Date Type Specialty Care Team Description 04/22/2022 Clinical Admitting/Central Communication Scheduling 04/26/2022 Appointment Radiology Mark Eastman M.D., M.S. [address] [place] [phone] 04/26/2022 Office Visit Otorhinolaryngology Roxanne Lanza APRN, C.N.P. [address] [place] [phone] 04/28/2022 Appointment Radiation Oncology Ursula Aguirre M.D. [address] [place] [address] [phone] documented as of this encounter Visit Diagnoses Diagnosis Dysphagia Oropharyngeal Phase - Primary Malignant Neoplasm Of Supraglottic (HCC) documented in this encounter
--- OUTSIDE RECORDS SUMMARY | 2022-04-05 09:22 | XMS_ITS | Encounter Summary ---
:1955 Author Organization [facility] Address [address] [place] [address]167 Care Team Providers Name Role Phone Unavailable Primary Care Provider Unavailable Reason for Referral Outpatient (Routine) - Canceled Specialty Diagnoses / Procedures Referred By Contact Refer red To Contact Nutrition Diagnoses Malignant Neoplasm Of Supraglottic (HCC) Ursula Aguirre M.D. [address] [phone] Referral ID Status Reason Start Date Expiration Date Visits V isits Requested Authorized [id number] Canceled 08/30/2019 08/29/2020 1 1 IN FIXER Reason for Visit Outpatient (Routine) - Canceled Specialty Diagnoses / Procedures Referred By Contact Refer red To Contact Nutrition Diagnoses Malignant Neoplasm Of Supraglottic (HCC) Ursula Aguirre M.D. [facility] Region [address] [place] [phone] Referral ID Status Reason Start Date Expiration Date Visits V isits Requested Authorized [id number] Canceled 08/30/2019 08/29/2020 1 1 Encounter Details Date Type Department Care Team Description 09/20/2019 Hospital Encounter Department of Mary Aguirre M.D. [address] [place] [phone] Malignant Neoplasm Radiation Oncology Natasha Brandon, RDN [address] [place] [phone] Of Supraglottic in [place], ([facility]) [place] [address] [facility] [place] [phone] Social History Tobacco Use Types Packs/Day Years [...] do you attend sikh or Never 2018 yazdanism services? Do you [...] 26, 2019;??completed April,. ?? Met with patient??and??her qnrynbji-gc-znx.?Patient??is hard of hearing and reads lips. For phonecontact Merlin (son)??states, his Darlin is the one to call, . ?? 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 Food/Nutrient Related [...] Obdulia reports that she worries a lot. Rxeeebcz-ih-kto reports that she thinkSonia is depressed. They are visiting with the administrator social welfare today. Discussed setting a timer for her [...] that will provide needed supplies for home: ??[place]??. They delivered supplies??04/18/19. ?? Indication for Ongoing [...] weeks. ?? Time spent with patient (minutes):15 IN FIXER documented in this encounter Plan of Treatment Upcoming Encounters Date Type Specialty Care Team Description 04/22/2022 Clinical Admitting/Central Communication Scheduling 04/26/2022 Appointment Radiology Mark Eastman M.D., M.S. [address] [place] [address] [phone] 04/26/2022 Office Visit Otorhinolaryngology Roxanne Lanza APRN, C.N.P. [address] [place] [address] [phone] 04/28/2022 Appointment Radiation Oncology Ursula Aguirre M.D. [address] [place] [address] [phone] Scheduled Referrals Name Type Priority Associated Diagnoses Order S chedule Nutrition - Outpatient Referral Routine Malignant Neoplasm On ce for 1 Medical nutrition Of Supraglottic Occurre nces therapy consult (HCC) starting 01/2020 (clinic) until 0 documented as of this encounter Visit Diagnoses Diagnosis Malignant Neoplasm Of Supraglottic (HCC) documented in this encounter
--- OUTSIDE RECORDS SUMMARY | 2022-04-05 09:22 | XMS_ITS | Encounter Summary ---
:1955 Author Organization [facility] Address [address] [place] [address] Care Team Providers Name Role Phone Unavailable Primary Care Provider Unavailable Reason for Referral Outpatient (Routine) - Closed Specialty Diagnoses / Procedures Referred By Contact Refer red To Contact Diagnoses Malignant Neoplasm Of Supraglottic (HCC) Summer Pérez P.A.-C., [place] Reg ion Procedures FL Swallow Function with Video and Speech or OT M.S. [address] [place] [address] [phone] Referral ID Status Reason Start Date Expiration Date Visits Requ ested Visits Authorized [id number] Closed 09/11/2019 09/10/2020 1 1 CLE CONTROLS ENGINEER Reason for Visit Outpatient (Routine) - Closed Specialty Diagnoses / Procedures Referred By Contact Refer red To Contact Diagnoses Malignant Neoplasm Of Supraglottic (HCC) Summer Pérez P.A.-C.[facility] Reg ion Procedures FL Swallow Function with Video and Speech or OT M.S. [address] [place] [address] [phone] Referral ID Status Reason Start Date Expiration Date Visits Requ ested Visits Authorized [id number] Closed 09/11/2019 09/10/2020 1 1 Encounter Details Date Type Department Care Team Description 09/28/2019 Hospital Encounter Department of Summer Pérez P.A.-C., M.S. [address] [place] [phone] Malignant Neoplasm Of Radiology, Conifer Bia Linton M.S., CCC-AUTOMOTIVE SERVICE MANAGEMENT TEACHER [address] [place] [phone] Supraglottic (HCC) Building, in [place], [place] [address] [place] [phone] Social History Tobacco Use Types Packs/Day Years [...] do you attend confucianist or Never 2018 yazidi services? Do you [...] Radiology Mark Eastman M.D., M.S. [address] [place] [phone] 04/26/2022 Office Visit Otorhinolaryngology Roxanne Lanza APRN, C.N.P. [address] [place] [phone] 04/28/2022 Appointment Radiation Oncology Ursula Aguirre M.D. [address] [place] [phone] documented as of this encounter Procedures Procedure Name Priority Date/Time Associated Comments Diagnosis FL SWALLOW RAD - Routine 09/28/2019 2:15 Malignant Neoplasm Resul ts for this FUNCTION WITH (most inpatients PM VEHICLE CONTROLS ENGINEER Of Supraglottic procedu re are in VIDEO AND SPEECH and all (HCC) the results OR OT FOR RST outpatients) section. documented in this encounter Results FL Swallow Function with Video and Speech or OT (09/28/2019 2:15 PM VEHICLE CONTROLS ENGINEER) Anatomical Region Laterality Modality Gastro Intestinal, Abdominal RST LOS, Abdominal ARZ N/A Digital Radiography LOS, Abdominal FLA LOS Specimen (Source) Anatomical Collection Method Collection Time Re ceived Time Location / / Volume Laterality 09/28/2019 2:31 PM VEHICLE CONTROLS ENGINEER Impressions 09/28/2019 2:33 PM VEHICLE CONTROLS ENGINEER Aspiration of liquid consistencies and deep penetration of applesauce. See speech pathology note fo r details. Narrative 09/28/2019 2:33 PM VEHICLE CONTROLS ENGINEER EXAM: ??FL SWALLOW FUNCTION WITH VIDEO AND [...] oral powder for Given 09/28/2019 2:15 PM VEHICLE CONTROLS ENGINEER 5 0 mL suspension (VARIBAR THIN LIQUID) oral, Code/trauma/sedation medication, Starting on Tue09/28/19 at 1415 barium 40 % (w/v) suspension Given 09/28/2019 2:15 PM VEHICLE CONTROLS ENGINEER 20 mL Code/trauma/sedation medication, Starting on Tue09/28/19 at 1415 documented in this encounter
--- OUTSIDE RECORDS SUMMARY | 2022-04-05 09:22 | XMS_ITS | Encounter Summary ---
:1955 Author Organization [facility] Address [address] [place] [address] Care Team Providers Name Role Phone Unavailable Primary Care Provider Unavailable Reason for Referral Outpatient (Routine) - Closed Specialty Diagnoses / Procedures Referred By Contact Refer red To Contact Radiation Oncology Summer Pérez P.A.-C., INDRA [facility] [address] [place] [phone] Referral ID Status Reason Start Date Expiration Date Visits Requ ested Visits Authorized [id number] Closed 08/30/2019 08/29/2020 1 1 Scheduling Instructions TSH a few days prior E FARM AGENT TEAM MEMBER Outpatient (Routine) - Closed Specialty Diagnoses / Procedures Referred By Contact Refer red To Contact Radiation Oncology Summer Pérez P.A.-C., INDRA [facility] [address] [place] [phone] Referral ID Status Reason Start Date Expiration Date Visits Requ ested Visits Authorized [id number] Closed 06/14/2019 06/13/2020 1 1 Scheduling Instructions Schedule after PET, swallow study, and Chrissy Mabry appointment in [place]; coordinate with diet if possible E FARM AGENT TEAM MEMBER Reason for Visit Outpatient (Routine) - Closed Specialty Diagnoses / Procedures Referred By Contact Refer red To Contact Radiation Oncology Summer Pérez P.A.-C., [facility] [address] [place] [phone] Referral ID Status Reason Start Date Expiration Date Visits Requ ested Visits Authorized [id number] Closed 06/14/2019 06/13/2020 1 1 Encounter Details Date Type Department Care Team Description 08/30/2019 Hospital Encounter Department of Ursula Aguirre Neoplasm Of Radiation Oncology Kimberley Bacon Supraglottic (HCC) in [place], [facility] 1st [facility] (Primary Dx) [place], [place] [address] [facility] [address] [place], [place] [phone] (Work) [phone] Social History Tobacco Use Types Packs/Day Years [...] do you attend caodaism or Never 2018 mormon services? Do you [...] Comments Blood Pressure 181/92 08/30/2019 1:26 PM STATE FARM AGENT TEAM MEMBER Pulse 85 08/30/2019 1:26 PM STATE FARM AGENT TEAM MEMBER Temperature 36.5 ??C (97.7 ??F) 08/30/2019 1:26 PM STATE FARM AGENT TEAM MEMBER Respiratory Rate - - Oxygen Saturation - - Inhaled Oxygen Concentration - - Weight 66.8 kg (147 lb 4.3 oz) 08/30/2019 1:26 PM STATE FARM AGENT TEAM MEMBER Height - - Body Mass Index 24.01 [...] 2019: ??Appointment with Dr. Darryl Grayson???[facility]. ??Physical examination with flexible laryngoscopy revealed a large fungating mass overlying the posterior left arytenoid that appeared fairly extensive, extending over to the right arytenoid into the piriform sinus. ?? Vocal cords move normally. ??Patient did have some shotty adenopathy on the left side. ??Ordered CT scan and then arrange referral to [facility]. 4. February 12, 2019: ??CT [...] Dr. Hung Mabry and Dr. Frank Arrieta??at [facility]. ??Physical examination revealed an exophytic mass of [...] will be referred to Radiation Oncology in [place]. 8. March 13, 2019: ??Follow-up appointment with Dr. Arrieta and Dr. Mabry who discussed treatment options including total laryngectomy versus radiation therapy. ??They were not able to offer partial laryngectomy given her lung disease and possible aspiration. ?? 9. March 15, 2019: ??Phone call with Dr. Tapia with the patient's [id number] reported that the patient had decided to undergo radiation treatment in [place]. ??She will have a follow-up abdominal MRI at [place]. ??The patient will follow-up with her primary [...] Summer Pérez P.A.-C., M.SShital 08/30/2019 2:17 PM STATE FARM AGENT TEAM MEMBER [facility] Rad[facility] [address] [place] [address] E FARM AGENT TEAM MEMBER Associated attestation - Ursula Aguirre M.D. - 08/30/2019 5:40 PM STATE FARM AGENT TEAM MEMBER I saw and evaluated the patient and [...] discussed her nutrition. She will see our silk screen painter today. I have spent 25 minutes with this patient today in which >50% was spent counseling and coordination of care. Ursula Aguirre M.D., 08/30/2019 documented in this encounter Plan of Treatment Upcoming Encounters Date Type Specialty Care Team Description 04/22/2022 Clinical Admitting/Central Communication Scheduling 04/26/2022 Appointment Radiology Mark Eastman M.D., M.S. [address] [place] [phone] 04/26/2022 Office Visit Otorhinolaryngology Roxanne Lanza, APPLIED ANTHROPOLOGIST, C.N.P. [address] [place] [phone] 04/28/2022 Appointment Radiation Oncology Ursula Aguirre M.D. [address] [place] [phone] Scheduled Referrals Name Type Priority Associated Order [...]
--- OUTSIDE RECORDS SUMMARY | 2022-04-05 09:22 | XMS_ITS | Encounter Summary ---
:1955 Author Organization [facility] Address [address] [place] [address] Care Team Providers Name Role Phone Unavailable Primary Care Provider Unavailable Reason for Referral Outpatient (Routine) - Closed Specialty Diagnoses / Procedures Referred By Contact Refer red To Contact Nutrition Diagnoses Malignant Neoplasm Of Supraglottic (HCC) Summer Pérez P.A.-C., [facility] [address] [place] [address] [phone] Referral ID Status Reason Start Date Expiration Date Visits Requ ested Visits Authorized [id number] Closed 08/03/2019 08/02/2020 1 1 TICS SPECIALIST Encounter Details Date Type Department Care Team Description 08/03/2019 Orders Only Department of Summer Pérez Malignant Joao plasm Of Radiation Oncology in [place], M .S. Supraglottic (HCC) [facility] [address] [place] [address] (Primary Dx) [address] [place] [phone] Social History Tobacco Use Types Packs/Day Years [...] do you attend shinto or Never 2018 gnosticist services? Do you belong to any clubs or No 02/21/2019 organizations such as shinto groups, unions, [employer] or athletic groups, or school groups? How [...] Radiology Mark Eastman M.D., M.S. [address] [place] [phone] 04/26/2022 Office Visit Otorhinolaryngology Roxanne Lanza, FACILITIES PROJECT MANAGER, C.N.P. [address] [place] [phone] 04/28/2022 Appointment Radiation Oncology Ursula Aguirre M.D. [address] [place] [phone] Scheduled Referrals Name Type Priority Associated Diagnoses Order S chedule Nutrition - Medical Outpatient Referral Routine Malignant Neop lasm Of Expected: nutrition therapy Supraglottic (HCC) 08/15 consult (clinic) (Approximat e), Expires: 08/03/2022 documented as of this encounter Visit Diagnoses Diagnosis Malignant Neoplasm Of Supraglottic (HCC) - Primary documented in this encounter
--- OUTSIDE RECORDS SUMMARY | 2022-04-05 09:23 | XMS_ITS | Encounter Summary ---
:1955 Author Organization [facility] Address [address] [place] [address] Care Team Providers Name Role Phone Unavailable [...] do you attend pentecostalism or Never 2018 restorationism services? Do you [...] Radiology Mark Eastman M.D., M.S. [address] [place] [phone] 04/26/2022 Office Visit Otorhinolaryngology Roxanne Lanza, PRICE CLERK, C.N.P. [address] [place] [phone] 04/28/2022 Appointment Radiation Oncology Ursula Aguirre M.D. [address] [place] [phone] documented as of this encounter Procedures Procedure [...]
--- OUTSIDE RECORDS SUMMARY | 2022-04-05 09:23 | XMS_ITS | Encounter Summary ---
:1955 Author Organization [facility] Address [address] [place] [address] Care Team Providers Name Role Phone Unavailable Primary Care Provider Unavailable Reason for Referral Outpatient (Routine) - Canceled Specialty Diagnoses / Procedures Referred By Contact Refer red To Contact Nutrition Diagnoses Malignant Neoplasm Of Supraglottic (HCC) Summer Pérez P.A.-C., INDRA [facility] [address] [place] [phone] Referral ID Status Reason Start Date Expiration Date Visits V isits Requested Authorized [id number] Canceled 05/03/2019 05/02/2020 1 1 Reason for Visit Outpatient (Routine) - Canceled Specialty Diagnoses / Procedures Referred By Contact Refer red To Contact Nutrition Diagnoses Malignant Neoplasm Of Supraglottic (HCC) Summer Pérez P.A.-C., INDRA [facility] [address] [place] [phone] Referral ID Status Reason Start Date Expiration Date Visits V isits Requested Authorized [id number] Canceled 05/03/2019 05/02/2020 1 1 Encounter Details Date Type Department Care Team Description 06/14/2019 Hospital Encounter Department of Summer Pérez P.A.-C., M.S. [address] [place] [phone] Malignant Neoplasm Radiation Oncology RomaNatasha villarreal, RDN [address] [place] [phone] Of Supraglottic in [place], (HCC) [place] [address] [place] [phone] Social History Tobacco Use Types [...] do you attend zoroastrian or Never 2018 hoahaoism services? Do you [...] Chew 81 mg every 0 tablet evening. 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 They delivered supplies??04/18/19. ?? Indication for Ongoing [...] Appointment Radiology Mark Eastman M.D., M.S. [address] [place] [phone] 04/26/2022 Office Visit Otorhinolaryngology Roxanne Lanza APRN, C.N.P. [address] [place] [address] [phone] 04/28/2022 Appointment Radiation Oncology Ursula Aguirre M.D. [address] [place] [phone] Scheduled Referrals Name Type Priority Associated Diagnoses Order S chedule Nutrition - Outpatient Referral Routine Malignant Neoplasm On ce for 1 Medical nutrition Of Supraglottic Occurre nces therapy consult (HCC) starting (clinic) until 9 documented as of this encounter Visit Diagnoses Diagnosis Malignant Neoplasm Of Supraglottic (HCC) documented in this encounter
--- OUTSIDE RECORDS SUMMARY | 2022-04-05 09:23 | XMS_ITS | Encounter Summary ---
:1955 Author Organization [facility] Address [address] [place] [address] Care Team Providers Name Role Phone Unavailable Primary Care Provider Unavailable Encounter Details Date Type Department Care Team Description 08/02/2019 Documentation Division of Gastroenterology Jordon Tse, in [facility] guillaume Duff [address] [place] [address] [place] [phone] Social History Tobacco Use [...] do you attend anabaptism or Never 2018 worship services? Do you [...] - 08/02/2019 2:40 PM CST Note created HANDLER documented in this encounter Nursing Notes Chucho Tse, R.N. - 08/02/2019 2:40 PM CST PEG/PEJ Nursing Procedure Note ASSESSMENT / PLAN Patient Name: Obdulia Narayan Department : DIVISION OF GASTROENTEROLOGY IN [place], [place] SUBJECTIVE Past Medical History: Diagnosis Date [...] week Gets together: Once a week Attends worship service: Never Active member of club or [...] on file OBJECTIVE Procedure Patient presents to [facility] Ramakrishna 6 Patient being seen for: [...] Reading and Seeing Education: PEG/PEJ Wallet Card ([id number]) Supplies sent with patient: None Encouraged Pt to applied barrier spray on areas of erythema under skin disk. HANDLER documented in this encounter Plan of Treatment Upcoming Encounters Date Type Specialty Care Team Description 04/22/2022 Clinical Admitting/Central Communication Scheduling 04/26/2022 Appointment Radiology Mark Eastman M.D., M.S. [address] [place] [phone] 04/26/2022 Office Visit Otorhinolaryngology Roxanne Lanza, BACTERIOLOGIST PHARMACEUTICAL, C.N.P. [address] [place] [phone] 04/28/2022 Appointment Radiation Oncology Ursula Aguirre M.D. [address] [place] [phone] documented as of this encounter Visit Diagnoses Not on filedocumented in this encounter
--- OUTSIDE RECORDS SUMMARY | 2022-04-05 09:23 | XMS_ITS | Encounter Summary ---
:1955 Author Organization [facility] Address [address] [place] [address] Care Team Providers Name Role Phone Unavailable Primary Care Provider Unavailable Reason for Referral Outpatient (Routine) - Closed Specialty Diagnoses / Procedures Referred By Contact Refer red To Contact Nutrition Diagnoses Malignant Neoplasm Of Supraglottic (HCC) Summer Pérez P.A.-C., INDRA [facility] [address] [place] [address] [phone] Referral ID Status Reason Start Date Expiration Date Visits Requ ested Visits Authorized [id number] Closed 06/14/2019 06/13/2020 1 1 SPREADER Reason for Visit Outpatient (Routine) - Closed Specialty Diagnoses / Procedures Referred By Contact Refer red To Contact Nutrition Diagnoses Malignant Neoplasm Of Supraglottic (HCC) Summer Pérez P.A.-C., [facility] [address] [place] [phone] Referral ID Status Reason Start Date Expiration Date Visits Requ ested Visits Authorized [id number] Closed 06/14/2019 06/13/2020 1 1 Encounter Details Date Type Department Care Team Description 08/03/2019 Hospital Encounter Department of Summer Pérez P.A.-C., M.S. [address] [place] [phone] Malignant Neoplasm Radiation Oncology Natasha Brandon C, RDN [address] [place] [phone] Of Supraglottic in [place], (HCC) [place] [address] [place] [phone] Social History Tobacco Use Types Packs/Day Years [...] do you attend baptist or Never 2018 nondenominational services? 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 Food/Nutrient Related History She reports [...] that will provide needed supplies for home: ??[place]??. They delivered supplies??04/18/19. ?? Indication for Ongoing [...] ?? Time spent with patient (minutes):15 ?? SPREADER documented in this encounter Plan of Treatment Upcoming Encounters Date Type Specialty Care Team Description 04/22/2022 Clinical Admitting/Central Communication Scheduling 04/26/2022 Appointment Radiology Mark Eastman M.D., M.S. [address] [place] [phone] 04/26/2022 Office Visit Otorhinolaryngology Roxanne Lanza APRN, C.N.P. [address] [place] [phone] 04/28/2022 Appointment Radiation Oncology Ursula Aguirre M.D. [address] [place] [phone] Scheduled Referrals Name Type Priority Associated Diagnoses Order S chedule Nutrition - Outpatient Referral Routine Malignant Neoplasm On ce for 1 Medical nutrition Of Supraglottic Occurre nces therapy consult (HCC) starting (clinic) until 9 documented as of this encounter Visit Diagnoses Diagnosis Malignant Neoplasm Of Supraglottic (HCC) documented in this encounter
--- OUTSIDE RECORDS SUMMARY | 2022-04-05 09:23 | XMS_ITS | Encounter Summary ---
:1955 Author Organization [facility] Address [address] [place] [address] Care Team Providers Name Role Phone Unavailable Primary Care Provider Unavailable Reason for Referral Outpatient (Routine) - Closed Specialty Diagnoses / Procedures Referred By Contact Refer red To Contact Diagnoses Malignant Neoplasm Of Supraglottic (HCC) Lara Castellanos, [place] [facility] Procedures Percutaneous Endoscopic Gastrostomy SALVAGE REPAIRER, C.N.P. 200 [place] [phone] Referral ID Status Reason Start Date Expiration Date Visits Requ ested Visits Authorized [id number] Closed 06/18/2019 06/17/2020 1 1 OR C WEB DEVELOPER Reason for Visit Auth/Cert Specialty Diagnoses / Procedures Referred By Contact Refer red To Contact Diagnoses Malignant Neoplasm Of Supraglottic (HCC) Procedures EGD ? PERCUTANEOUS ENDOSCOPIC GASTROSTOMY/JEJUNOSTOMY Referral ID Status Reason Start Date Expiration Date Visits Requ ested Visits Authorized [id number] 1 1 Encounter Details Date Type Department Care Team Description 08/02/2019 Hospital Division of Jasmin Malignant Neopl asm Encounter Gastroenterology in [place] José Of Supra glottic [place], [place] AMAYA, C.N.P. (HCC) [address] [facility] [address] [place] [address] [place], [place] [phone] Social History Tobacco Use Types Packs/Day Years [...] do you attend jewish or Never 2018 jainism services? Do you [...] Radiology Mark Eastman M.D., M.S. [address] [place] [address] [phone] 04/26/2022 Office Visit Otorhinolaryngology Roxanne Lanza APRN, C.N.P. [address] [place] [address] [phone] 04/28/2022 Appointment Radiation Oncology Ursula Aguirre M.D. [address] [place] [phone] documented as of this encounter Procedures Procedure Name Priority Date/Time Associated Diagnosis Comme nts NON-ENDOSCOPIC TUBE Routine 08/02/2019 2:04 PM Malignant Neopl asm Results for this PROCEDURE SENIOR C WEB DEVELOPER Of Supraglottic procedure ar e in (HCC) the results section. EGD ? Routine 08/02/2019 2:04 PM Malignant Neoplasm PERCUTANEOUS SENIOR C WEB DEVELOPER Of Supraglottic ENDOSCOPIC (HCC) GASTROSTOMY/JEJUNOSTO MY documented in this encounter Results Non-Endoscopic Tube Procedure (08/02/2019 2:04 PM SENIOR C WEB DEVELOPER) Specimen (Source) Anatomical Collection Method Collection Time Re ceived Time Location / / Volume Laterality 08/02/2019 2:04 PM SENIOR C WEB DEVELOPER Impressions [facility] - 08/20/2019 2:46 PM SENIOR C WEB DEVELOPER Post-op Diagnoses: ? - The previously removed gastrost poonam tube was replaced with a 20 Fr LEONARDO ? gastrostomy tube. ? - No specimens collected. Narrative [facility] - 08/20/2019 2:46 PM SENIOR C WEB DEVELOPER Ramakrishna 6 GI GI Patient Name: Obdulia [...]
--- OUTSIDE RECORDS SUMMARY | 2022-04-05 09:23 | XMS_ITS | Encounter Summary ---
:1955 Author Organization [facility] Address [address] [place] [address] Care Team Providers Name Role Phone Unavailable Primary Care Provider Unavailable Reason for Visit Radiation Therapy (Routine) - Closed Specialty Diagnoses / Procedures Referred By Contact Refer red To Contact Diagnoses Malignant Neoplasm Of Supraglottic (HCC) Ursula Aguirre M.D. [facility] Procedures Prior Auth Rad Tx [facility] [address] [place] [address] [phone] Referral ID Status Reason Start Date Expiration Date Visits Requ ested Visits Authorized [id number] Closed 03/15/2019 03/14/2020 35 35 Encounter Details Date Type Department Care Team Description 05/04/2019 Hospital Encounter Department of Ursula Aguirre Neoplasm Of Radiation Oncology Kimberley Bacon Supraglottic (HCC) in [address] (Primary Dx) [place], [place] 1821 [facility] [address] [place], [place] [phone] (Work) [phone] Social History Tobacco Use Types Packs/Day Years [...] do you attend zoroastrianism or Never 2018 mandaeism services? Do you [...] Summer Pérez P.A.-C., M.S., 05/07/2019 10:51 AM [facility] [place] [facility] [address] [place] [address] documented in this encounter Miscellaneous Notes Addendum Note - Laine Gee, RTT - 05/04/2019 11:15 AM CDT Encounter addended by: Laine Gee, RTT on: 11/21/2019 12:35 PM Actions taken: Episode un-resolved, Episode resolved documented in this encounter Plan of Treatment Upcoming Encounters Date Type Specialty Care Team Description 04/22/2022 Clinical Admitting/Central Communication Scheduling 04/26/2022 Appointment Radiology Mark Eastman M.D., M.S. [address] [place] [phone] 04/26/2022 Office Visit Otorhinolaryngology Roxanne Lanza, TAKER OUT, C.N.P. [address] [place] [phone] 04/28/2022 Appointment Radiation Oncology Ursula Aguirre M.D. [address] [place] [phone] documented as of this encounter Visit Diagnoses Diagnosis Malignant Neoplasm Of Supraglottic (HCC) - Primary documented in this encounter
--- OUTSIDE RECORDS SUMMARY | 2022-04-05 09:23 | XMS_ITS | Encounter Summary ---
:1955 Author Organization [facility] Address [address] [place] [address] Care Team Providers Name Role Phone Unavailable Primary Care Provider Unavailable Encounter Details Date Type Department Care Team Description 08/02/2019 Clinical Communication Department of Nutrition Charlene Jasso sa, in [facility] guillaume RDN, LD [address] [email or web address] [address] [place] [phone] Social History Tobacco Use Types Packs/Day Years [...] do you attend hoahaoism or Never 2018 caodaism services? Do you [...] update home tube feeding orders as needed. 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 [address] [place] [phone] 04/26/2022 Office Visit Otorhinolaryngology Roxanne Lanza APRN, C.N.P. [address] [place] [phone] 04/28/2022 Appointment Radiation Oncology Ursula Aguirre M.D. [address] [place] [phone] documented as of this encounter Visit Diagnoses Not on filedocumented in this encounter
--- OUTSIDE RECORDS SUMMARY | 2022-04-05 09:23 | XMS_ITS | Encounter Summary ---
:1955 Author Organization [facility] Address [address] [place] [address] Care Team Providers Name Role Phone Unavailable Primary Care Provider Unavailable Encounter Details Date Type Department Care Team Description 05/15/2019 Clinical Communication Department of Ursula Aguirre Radiation Oncology Kimberley Kaur [place] [address] [facility] [address] [place] [address] [phone] Social History Tobacco Use Types Packs/Day Years [...] refill of hydrocodone was left at our credit front office developer today for them to pick up truck driver. We discussed for the patient to take [...] in to pick it up. Phone number: [phone] OR [phone] Is it okay to leave a voicemail on answering machine with test results? Yes Pharmacy (if medication related): [facility] [address] [place] [id number] Ayla Orellana C.Ph.T. documented in this encounter Plan of Treatment Upcoming Encounters Date Type Specialty Care Team Description 04/22/2022 Clinical Admitting/Central Communication Scheduling 04/26/2022 Appointment Radiology Mark Eastman M.D., M.S. [address] [place] [phone] 04/26/2022 Office Visit Otorhinolaryngology Roxanne Lanza, DIGITAL CONTROLS TECHNICAL OFFICER, C.N.P. [address] [place] [phone] 04/28/2022 Appointment Radiation Oncology Ursula Aguirre M.D. [address] [place] [phone] documented as of this encounter Visit Diagnoses Diagnosis Malignant Neoplasm Of Supraglottic (HCC) - Primary documented in this encounter
--- OUTSIDE RECORDS SUMMARY | 2022-04-05 09:23 | XMS_ITS | Encounter Summary ---
:[address] [facility] Address [address] [place] [address] Care Team Providers Name Role Phone Unavailable Primary Care Provider Unavailable Encounter Details Date Type Department Care Team Description 07/16/2019 Orders Only Department of Summer Pérez, Malignant Joao plasm Of Radiation Oncology in P.A.-C., M .S. Supraglottic (HCC) [facility] [place] [facility] a [address] [facility] (Primary Dx) [address] [place] [phone] Social History Tobacco Use Types Packs/Day Years [...] do you attend samaritan or Never 2018 catholic services? Do you [...] Radiology Mark Eastman M.D., M.S. [address] [place] [phone] 04/26/2022 Office Visit Otorhinolaryngology Roxanne Lanza APRN, C.N.P. [address] [place] [phone] 04/28/2022 Appointment Radiation Oncology Ursula Aguirre M.D. 200 [place] [phone] documented as of this encounter Visit Diagnoses Diagnosis Malignant Neoplasm Of Supraglottic (HCC) - Primary documented in this encounter
--- OUTSIDE RECORDS SUMMARY | 2022-04-05 09:23 | XMS_ITS | Encounter Summary ---
:1955 Author Organization [facility] Address [address] [place] [address] Care Team Providers Name Role Phone Unavailable Primary Care Provider Unavailable Reason for Visit Outpatient (Routine) - Closed Specialty Diagnoses / Procedures Referred By Contact Refer red To Contact Diagnoses Malignant Neoplasm Of Supraglottic (HCC) Summer Pérez P.A.-C., [facility] Reg ion Procedures PET CT Skull to Thigh FDG AL PET/CT TRUNK M.S. [address] [place] [phone] Referral ID Status Reason Start Date Expiration Date Visits Requ ested Visits Authorized [id number] Closed 06/14/2019 06/13/2020 1 1 Encounter Details Date Type Department Care Team Description 07/27/2019 Hospital Encounter Department of Summer Pérez Cancele d (Patient: Radiology, Malcom Torres, M.S . Request) [facility], in [address] [place] [phone] [place], [place] [phone] (Work) [phone] Social History Tobacco Use Types Packs/Day Years [...] do you attend methodist or Never 2018 mosque services? Do you [...] Radiology Mark Eastman M.D., M.S. [address] [place] [phone] 04/26/2022 Office Visit Otorhinolaryngology Roxanne Lanza, DRILLER BRAKE LINING, C.N.P. [address] [place] [address] [phone] 04/28/2022 Appointment Radiation Oncology Ursula Aguirre M.D. [address] [place] [phone] documented as of this encounter Procedures Procedure Name Priority Date/Time Associated Comments Diagnosis PET CT SKULL TO RAD - Routine 08/24/2019 10:53 Malignant Neoplasm R esults for this THIGH (most inpatients AM QUALITY NURSE Of Supraglottic procedur e are in and all (HCC) the results outpatients) section. documented in this encounter Results PET CT Skull to Thigh FDG (08/24/2019 10:53 AM QUALITY NURSE) Anatomical Region Laterality Modality Body, Nuclear Medicine PET RST LOS, N/A Posi nasreen Emission Tomography (PET), PET ARZ LOS, Nuclear Medicine PET FLA Po sitron Emission Tomography (PET) LOS, Nuclear Medicine Specimen (Source) Anatomical Collection Method Collection Time Re ceived Time Location / / Volume Laterality 08/24/2019 12:36 PM QUALITY NURSE Impressions 08/24/2019 12:59 PM QUALITY NURSE No evidence for recurrent or metastatic supraglottic squamous cell carcinoma. Narrative 08/24/2019 12:59 PM QUALITY NURSE EXAM: ??PET CT SKULL TO THIGH FDG Finger stick glucose level at the time o f the PET scan injection was 92 mg/dL. Patient followed standard dietary/fastin g requirements for this exam. RADIOPHARMACEUTICAL/MEDS: Route: intravenous fludeoxyglucose F 18 injection PRISON (FDG F-18),15.01 millicurie TECHNIQUE: ??F-18 FDG PET/CT [...] RADIOPHARMACEUTICAL/MEDS: Route: intravenous fludeoxyglucose F 18 injection PRISON (FDG F-18),15.01 millicurie TECHNIQUE: F-18 FDG PET/CT [...]
--- OUTSIDE RECORDS SUMMARY | 2022-04-05 09:23 | XMS_ITS | Encounter Summary ---
:1955 Author Organization [facility] Address [address] [place] [address] Care Team Providers Name Role Phone Unavailable Primary Care Provider Unavailable Reason for Referral Outpatient (Routine) - Closed Specialty Diagnoses / Procedures Referred By Contact Refer red To Contact Radiation Oncology Summer Pérez P.A.-C., INDRA [facility] [address] [place] [phone] Referral ID Status Reason Start Date Expiration Date Visits Requ ested Visits Authorized [id number] Closed 05/22/2019 05/21/2020 1 1 Scheduling Instructions Schedule diet also. Reason for Visit Outpatient (Routine) - Closed Specialty Diagnoses / Procedures Referred By Contact Refer red To Contact Radiation Oncology Summer Pérez P.A.-C., INDRA [facility] [address] [place] [phone] Referral ID Status Reason Start Date Expiration Date Visits Requ ested Visits Authorized [id number] Closed 05/22/2019 05/21/2020 1 1 Encounter Details Date Type Department Care Team Description 05/24/2019 Hospital Encounter Department of Ursula Aguirre Neoplasm Of Radiation Oncology Kimberley Bacon Supraglottic (HCC) in [address] (Primary Dx) [place], [place] [address] [facility] [address] [place], [place] [phone] (Work) [phone] Social History Tobacco Use Types Packs/Day Years [...] do you attend taoism or Never 2018 jew services? Do you [...] 2019: Appointment with Dr. Darryl Grayson???Rasta at [facility] [place] [facility]. Physical examination with flexible laryngoscopy revealed a large fungating mass overlying the posterior left arytenoidthat appeared fairly extensive, extending over to the right arytenoid into the piriform sinus. Vocal cords move normally. Patient did have some shotty adenopathy on the left side. Ordered CT scan and then arrange referral to [facility]. 4. February 12, 2019: ??CT scan of [...] Hung Mabry and Dr. Frank Arrieta??at [facility]. Physical examination revealed an exophytic mass of [...] she willbe referred to Radiation Oncology in [place]. 8. March 13, 2019: Follow-up appointment with Dr. Arrieta and Dr. Mabry who discussed treatment options including total laryngectomy versus radiation therapy. They were not able to offer partial laryngectomy given her lung disease and possible aspiration. 9. March 15, 2019: Phone call with Dr. Tapia with the patient's [id number] reported that the patient had decided to undergo radiation treatment in [place]. She will have a follow-up abdominal MRI at [place]. The patient will follow-up with her primary [...] She is not using a humidifier in [place] like she used previously in [place]. She denies fever or chills. She met [...] Summer Pérez P.A.-C., M.S. 05/24/2019 4:35 PM [facility] [address] [place] [address] Associated attestation - Ursula Aguirre M.D. - [...] her PEG tube. She met with our soldering machine operator automatic today. She also is complaining of the [...] Appointment Radiology Mark Eastman M.D., M.S. [address] [place] [phone] 04/26/2022 Office Visit Otorhinolaryngology Roxanne Lanza, SECURITY GUARDS DISPATCHER, C.N.P. [address] [place] [phone] 04/28/2022 Appointment Radiation Oncology Ursula Aguirre M.D. [address] [place] [phone] Scheduled Referrals Name Type Priority Associated Order Schedule Diagnoses Radiation Oncology Outpatient Referral Routine On ce for 1 office visit Occurrences sta rting (clinic) 05/24/2019 unti l 05/24/2019 documented as of this encounter Visit Diagnoses Diagnosis Malignant Neoplasm Of Supraglottic (HCC) - Primary documented in this encounter
--- OUTSIDE RECORDS SUMMARY | 2022-04-05 09:23 | XMS_ITS | Encounter Summary ---
:1955 Author Organization [facility] Address [address] [place] [address] Care Team Providers Name Role Phone Unavailable [...] do you attend presybeterian or Never 2018 gnosticism services? Do you belong to any clubs [...] Radiology Mark Eastman M.D., M.S. [address] [place] [phone] 04/26/2022 Office Visit Otorhinolaryngology Roxanne Lanza APRN, C.N.P. [address] [place] [phone] 04/28/2022 Appointment Radiation Oncology Ursula Aguirre M.D. [address] [place] [phone] documented as of this encounter Procedures Procedure Name Priority Date/Time Associated Comments Diagnosis OTORHINOLARYNGOLOGY IMAGE Routine 08/02/2019 11:30 Results for this EXAM AM MALTSTER procedure are i n the results section. documented in this encounter Results Direct Laryngoscopy-Otorhinolaryngology Image Exam (08/02/2019 11:30 AM MALTSTER) Specimen (Source) Anatomical Collection Method Collection Time Re ceived Time Location / / Volume Laterality 08/02/2019 11:30 AM MALTSTER Narrative [facility] - 08/02/2019 11:38 AM MALTSTER This order has been created and auto-finalized [...]
--- OUTSIDE RECORDS SUMMARY | 2022-04-05 09:23 | XMS_ITS | Encounter Summary ---
:1955 Author Organization [facility] Address [address] [place] [address] Care Team Providers Name Role Phone Unavailable Primary Care Provider Unavailable Encounter Details Date Type Department Care Team Description 05/22/2019 Clinical Communication Department of Radiation Kareem Pérez, Oncology in [place], PMassiel, M.S. [address] [place] [address] [phone] Social History Tobacco Use Types Packs/Day Years [...] or relatives? How often do you attend scientologist or Never 2018 mormonism services? Do you belong to any clubs or No 02/21/2019 organizations such as scientologist groups, unions, fraternal or athletic groups, or [...] Rolando, came to the clinic today to slate picker a prescription refill of hydrocodone for his [...] Radiology Mark Eastman M.D., M.S. [address] [place] [phone] 04/26/2022 Office Visit Otorhinolaryngology Roxanne Lanza, PROCESS DEVELOPMENT ENGINEER, C.N.P. [address] [place] [phone] 04/28/2022 Appointment Radiation Oncology Ursula Aguirre M.D. [address] [place] [phone] documented as of this encounter Visit Diagnoses Not on filedocumented in this encounter
--- OUTSIDE RECORDS SUMMARY | 2022-04-05 09:23 | XMS_ITS | Encounter Summary ---
:1955 Author Organization [facility] Address [address] [place] [address] Care Team Providers Name Role Phone Unavailable Primary Care Provider Unavailable Reason for Referral Outpatient (Routine) - Closed Specialty Diagnoses / Procedures Referred By Contact Refer red To Contact Nutrition Diagnoses Malignant Neoplasm Of Supraglottic (HCC) Summer Pérez P.A.-C., INDRA [facility].S 200 [place] [phone] Referral ID Status Reason Start Date Expiration Date Visits Requ ested Visits Authorized [id number] Closed 05/07/2019 05/06/2020 1 1 Scheduling Instructions LILLIE pt, please schedule for this week an d please call daughter in [place] at [phone] to help schedule as she sunny l be providing transportation to this appt, thanks Reason for Visit Outpatient (Routine) - Closed Specialty Diagnoses / Procedures Referred By Contact Refer red To Contact Nutrition Diagnoses Malignant Neoplasm Of Supraglottic (HCC) Summer Pérez P.A.-C., [facility] 200 [place] [address] Referral ID Status Reason Start Date Expiration Date Visits Requ ested Visits Authorized [id number] Closed 05/07/2019 05/06/2020 1 1 Encounter Details Date Type Department Care Team Description 05/24/2019 Hospital Encounter Department of Summer Pérez P.A.-C., M.S. [address] [place] [address] Malignant Neoplasm Radiation Oncology Natasha Brandon, RDN [address] [place] [phone] Of Supraglottic in [place], (HCC) [place] [address] [place] [address] Social History Tobacco Use Types [...] do you attend hindu or Never 2018 restoration services? 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 Food/Nutrient Related [...] that will provide needed supplies for home: ??[employer]??. They delivered supplies??04/18/19. ?? Indication for Ongoing [...] Appointment Radiology Mark Eastman M.D., M.S. [address] [place] [phone] 04/26/2022 Office Visit Otorhinolaryngology Roxanne Lanza APRN, C.N.P. [address] [place] [phone] 04/28/2022 Appointment Radiation Oncology Ursula Aguirre M.D. [address] [place] [phone] Scheduled Referrals Name Type Priority Associated Diagnoses Order S chedule Nutrition - Outpatient Referral Routine Malignant Neoplasm On ce for 1 Medical nutrition Of Supraglottic Occurre nces therapy consult (HCC) starting 05/2019 (clinic) until 9 documented as of this encounter Visit Diagnoses Diagnosis Malignant Neoplasm Of Supraglottic (HCC) documented in this encounter
--- OUTSIDE RECORDS SUMMARY | 2022-04-05 09:23 | XMS_ITS | Encounter Summary ---
:1955 Author Organization [facility] Address [address] [place] [address] Care Team Providers Name Role Phone Unavailable Primary Care Provider Unavailable Reason for Visit Reason Comments Appointment Encounter Details Date Type Department Care Team Description 06/18/2019 Documentation Division of General Dolores Lucio, Appointment Internal Medicine in M.A.N., R.N . [place], [place] [address] [facility] [address] [place] [phone] Social History Tobacco Use Types Packs/Day Years [...] do you attend restoration or Never 2018 restoration services? Do you [...] to be added with her 08/02 appointment. 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 [address] [place] [phone] 04/26/2022 Office Visit Otorhinolaryngology Roxanne Lanza APRN, C.N.P. [address] [place] [address] [phone] 04/28/2022 Appointment Radiation Oncology Ursula Aguirre M.D. [address] [place] [address] [phone] documented as of this encounter Visit Diagnoses Not on filedocumented in this encounter
--- OUTSIDE RECORDS SUMMARY | 2022-04-05 09:23 | XMS_ITS | Encounter Summary ---
:1955 Author Organization [facility] Address [address] [place] [address] Care Team Providers Name Role Phone Unavailable [...] do you attend yazdanism or Never 2018 holiness services? Do you [...] Radiology Mark Eastman M.D., M.S. [address] [place] [phone] 04/26/2022 Office Visit Otorhinolaryngology Roxanne Lanza, PNEUMATIC JACKETER, C.N.P. [address] [place] [phone] 04/28/2022 Appointment Radiation Oncology Ursula Aguirre M.D. [address] [place] [phone] documented as of this encounter Procedures Procedure [...]
--- OUTSIDE RECORDS SUMMARY | 2022-04-05 09:23 | XMS_ITS | Encounter Summary ---
:1955 Author Organization [facility] Address [address] [place] [address] Care Team Providers Name Role Phone Unavailable Primary Care Provider Unavailable Reason for Referral Outpatient (Routine) - Closed Specialty Diagnoses / Procedures Referred By Contact Refer red To Contact Nutrition Diagnoses Malignant Neoplasm Of Supraglottic (HCC) Summer Pérez P.A.-C., [facility] [place] [facility] M.S. [address] [place] [address] Referral ID Status Reason Start Date Expiration Date Visits Requ ested Visits Authorized [id number] Closed 05/07/2019 05/06/2020 1 1 Scheduling Instructions LILLIE pt, please schedule for this week an d please call daughter in [place] at [phone] to help schedule as she sunny l be providing transportation to this appt, thanks Outpatient (Routine) - Canceled Specialty Diagnoses / Procedures Referred By Contact Refer red To Contact Radiation Oncology Diagnoses Malignant Neoplasm Of Supraglottic (HCC) Ursula Aguirre [facility] [place] [facility] M.[facility]. [address] [place] [address] Referral ID Status Reason Start Date Expiration Date Visits V isits Requested Authorized [id number] Canceled 03/15/2019 03/14/2020 1 1 Reason for Visit Outpatient (Routine) - Canceled Specialty Diagnoses / Procedures Referred By Contact Refer red To Contact Radiation Oncology Diagnoses Malignant Neoplasm Of Supraglottic (HCC) Ursula Aguirre [facility] [place] [facility] M.D. [address] [place] [phone] Referral ID Status Reason Start Date Expiration Date Visits V isits Requested Authorized [id number] Canceled 03/15/2019 03/14/2020 1 1 Encounter Details Date Type Department Care Team Description 05/07/2019 Hospital Encounter Department of Mary Aguirre M.D. [address] [place] [address] [phone] Malignant Neoplasm Of Radiation Oncology Jannet Cross R.N. [address] [place] [address] [phone] Supraglottic (HCC) in [place], [place] [address] [place] [address] Social History Tobacco Use Types [...] or relatives? How often do you attend oriental orthodox or Never 2018 amish services? Do you belong to any clubs or No 02/21/2019 organizations such as oriental orthodox groups, unions, fraternal or athletic groups, [...] encounter Progress Notes Jannet Cross R.N. - 05/07/2019 9:30 AM CDT Nurse follow [...] Patient is willing to meet with our Blood Bank Calendar Control Clerk team this coming and this order has [...] day. I have reviewed Moist Skin Reaction [id number] with pamphlet today. I have provided patient samples of Pro Net, Xeroform and Telfa. Patient is to start white vi kaelyn soaks if skin starts to blister and open. Plan of care was reviewed with Summer Pérez PA-C today. Dr. Aguirre will see patient in follow up on June 14, 2019 and we will have her see our dieticianapurva at the same time. Radiation Oncology [place] can be contacted at anytime for any [...] Radiology Mark Eastman M.D., M.S. [address] [place] [address] [phone] 04/26/2022 Office Visit Otorhinolaryngology Roxanne Lanza, MEASUREMENT PSYCHOLOGIST, C.N.P. [address] [place] [address] [phone] 04/28/2022 Appointment Radiation Oncology Ursula Aguirre M.D. [address] [place] [address] [phone] Scheduled Referrals Name Type Priority Associated Diagnoses [...]
--- OUTSIDE RECORDS SUMMARY | 2022-04-05 09:23 | XMS_ITS | Encounter Summary ---
:1955 Author Organization [facility] Address [address] [place] [address] Care Team Providers Name Role Phone Unavailable Primary Care Provider Unavailable Encounter Details Date Type Department Care Team Description 06/18/2019 Orders Only Department of Emy Kuhn Malignan t Neoplasm Of Supraglottic (HCC) (Primary Dx); Nutrition in RDN, LD Home Enteral Nutrition; [place], [place] [address] [facility] Gastrostomy Status (HCC) [address] [place] [phone] Social History Tobacco Use Types Packs/Day Years [...] do you attend hinduism or Never 2018 tenriism services? Do you [...] as of this encounter Progress Notes Emy Khun RDN, JUANITO - 06/18/2019 2:08 PM CST Home Enteral Nutrition Follow-up per protocol Reviewed EMR. Obdulia Narayan is being followed by dietitians with the team in [place]. I appreciate their recent assessment on 06/14/19. Ms. Narayan's tube will be due for replacement from 07/17/19 to 09/17/2019. I've asked our HEN providerto order HEN replacement appointments noting patient has some appointments in [place] in mid July and follow-up with Dr. Aguirre and AYLEEN in [place] on 08/02/19. ATIONAL TECHNICIAN documented in this encounter Plan of Treatment Upcoming Encounters Date Type Specialty Care Team Description 04/22/2022 Clinical Admitting/Central Communication Scheduling 04/26/2022 Appointment Radiology Mark Eastman M.D., M.S. [address] [place] [phone] 04/26/2022 Office Visit Otorhinolaryngology Roxanne Lanza, BARREL WASHER MACHINE, C.N.P. [address] [place] [phone] 04/28/2022 Appointment Radiation Oncology Ursula Aguirre M.D. [address] [place] [phone] documented as of this encounter Visit Diagnoses Diagnosis Malignant Neoplasm Of Supraglottic (HCC) - Primary Home Enteral Nutrition Gastrostomy Status (HCC) documented in this encounter
--- OUTSIDE RECORDS SUMMARY | 2022-04-05 09:23 | XMS_ITS | Encounter Summary ---
:1955 Author Organization [facility] Address [address] [place] [address] Care Team Providers Name Role Phone Unavailable Primary Care Provider Unavailable Reason for Visit Outpatient (Routine) - Closed Specialty Diagnoses / Procedures Referred By Contact Refer red To Contact Otorhinolaryngology Diagnoses Malignant Neoplasm Of Supraglottic (HCC) Summer Pérez, Hung Mabry P.A.-C., M.S. M.DShital [address] [place] [address] 200 [place] [phone] Referral ID Status Reason Start Date Expiration Date Visits Requ ested Visits Authorized [id number] Closed 06/14/2019 06/13/2020 1 1 Encounter Details Date Type Department Care Team Description 08/02/2019 Office Visit Department of Bettie Mabryp jun Otorhinolaryngology in [place] Serna M.D. [place], [place] ([facility]) [address] [place] [phone] Social History Tobacco Use Types Packs/Day [...] do you attend tenriism or Never 2018 religion services? Do you [...] female who presents to clinic with her [id number] and 2 grandchildren. She was diagnosed with [...] change later today and visit with the survey analyst an associate professor computer science regarding appropriate formulas to assisting gaining weight. [...] week Gets together: Once a week Attends religion service: Never Active member of club or [...] Ears: Bilateral canals and TM's normal Nose: Limon and moist Oral Cavity: Limon and dry. Mucous membranes intact. Full dentures [...] squamous cell carcinoma treated with primary radiation [id number] cGy in 35 fractions completed May 04, [...] plan; patient expressed understanding of the content. SWORKER documented in this encounter Plan of Treatment Upcoming Encounters Date Type Specialty Care Team Description 04/22/2022 Clinical Admitting/Central Communication Scheduling 04/26/2022 Appointment Radiology Mark Eastman M.D., M.S. [address] [place] [phone] 04/26/2022 Office Visit Otorhinolaryngology Roxanne Lanza APRN, C.N.P. [address] [place] [phone] 04/28/2022 Appointment Radiation Oncology Ursula Aguirre M.D. [address] [place] [phone] documented as of this encounter Visit Diagnoses Diagnosis Malignant Neoplasm Of Supraglottic (HCC) documented in this encounter
--- OUTSIDE RECORDS SUMMARY | 2022-04-05 09:23 | XMS_ITS | Encounter Summary ---
:1955 Author Organization [facility] Address [address] [place] [address] Care Team Providers Name Role Phone Unavailable Primary Care Provider Unavailable Reason for Referral Outpatient (Routine) - Closed Specialty Diagnoses / Procedures Referred By Contact Refer red To Contact Nutrition Diagnoses Malignant Neoplasm Of Supraglottic (HCC) Summer Pérez P.A.-C., INDRA [facility] 200 [place] [address] Referral ID Status Reason Start Date Expiration Date Visits Requ ested Visits Authorized [id number] Closed 06/14/2019 06/13/2020 1 1 Outpatient (Routine) - Closed Specialty Diagnoses / Procedures Referred By Contact Refer red To Contact Radiation Oncology Summer Pérez P.A.-C., INDRA [facility] 200 [place] [address] Referral ID Status Reason Start Date Expiration Date Visits Requ ested Visits Authorized [id number] Closed 06/14/2019 06/13/2020 1 1 Scheduling Instructions Schedule after PET, swallow study, and Chrissy Mabry appointment in [place]; coordinate with diet if possible Outpatient (Routine) - Closed Specialty Diagnoses / Procedures Referred By Contact Refer red To Contact Otorhinolaryngology Diagnoses Malignant Neoplasm Of Supraglottic (HCC) Summer Pérez Kasperbauer, Jan L, P.A.-C., MShitalS. MShitalDShital [address] [place] [address] 200 [place] [phone] Referral ID Status Reason Start Date Expiration Date Visits Requ ested Visits Authorized [id number] Closed 06/14/2019 06/13/2020 1 1 Scheduling Instructions Coordinate same day as PET and swallow s zuleyka, patient prefers Tuesday Speech Pathology (Routine) - Closed Specialty Diagnoses / Procedures Referred By Contact Refer red To Contact Diagnoses Malignant Neoplasm Of Supraglottic (HCC) Summer Pérez P.A.-C. [place] Reg ion Procedures MUSEUM PREPARATOR Dysphagia evaluate and treat M.S. [address] [place] [phone] Referral ID Status Reason Start Date Expiration Date Visits Requ ested Visits Authorized [id number] Closed 06/14/2019 06/13/2020 1 1 Outpatient (Routine) - Closed Specialty Diagnoses / Procedures Referred By Contact Refer red To Contact Diagnoses Malignant Neoplasm Of Supraglottic (HCC) Summer Pérez P.A.-C. [place] Reg ion Procedures PET CT Skull to Thigh FDG AL PET/CT TRUNK M.S. [address] [place] [phone] Referral ID Status Reason Start Date Expiration Date Visits Requ ested Visits Authorized [id number] Closed 06/14/2019 06/13/2020 1 1 Outpatient (Routine) - Closed Specialty Diagnoses / Procedures Referred By Contact Refer red To Contact Radiation Oncology Summer Pérez P.A.-C., INDRA [facility] [address] [place] [phone] Referral ID Status Reason Start Date Expiration Date Visits Requ ested Visits Authorized [id number] Closed 05/03/2019 05/02/2020 1 1 Scheduling Instructions Coordinate with diet appt. Reason for Visit Outpatient (Routine) - Closed Specialty Diagnoses / Procedures Referred By Contact Refer red To Contact Radiation Oncology Summer Pérez P.A.-C., INDRA [facility] [address] [place] [phone] Referral ID Status Reason Start Date Expiration Date Visits Requ ested Visits Authorized [id number] Closed 05/03/2019 05/02/2020 1 1 Encounter Details Date Type Department Care Team Description 06/14/2019 Hospital Encounter Department of Ursula Aguirre Neoplasm Of Radiation Oncology Kimberley Bacon Supraglottic (HCC) in [place], [address] [place] [address] (Primary Dx) [place] [address] [place] [phone] [place], [place] [phone] (Work) [phone] Social History Tobacco Use Types Packs/Day Years [...] do you attend gnosticism or Never 2018 mormonism services? Do you [...] to pay for the very basics like [employer] hat hard 02/21/2019 food, housing, medical care, [...] 2019: ??Appointment with Dr. Darryl Grayson???[facility] at [facility]. ??Physical examination with flexible laryngoscopy revealed a large fungating mass overlying the posterior left arytenoid that appeared fairly extensive, extending over to the right arytenoid into the piriform sinus. ?? Vocal cords move normally. ??Patient did have some shotty adenopathy on the left side. ??Ordered CT scan and then arrange referral to [facility]. 4. February 12, 2019: ??CT scan [...] Dr. Hung Mabry and Dr. Frank Arrieta??at [facility]. ??Physical examination revealed an exophytic mass [...] will be referred to Radiation Oncology in [place]. 8. March 13, 2019: ??Follow-up appointment with Dr. Arrieta and Dr. Mabry who discussed treatment options including total laryngectomy versus radiation therapy. ??They were not able to offer partial laryngectomy given her lung disease and possible aspiration. ?? 9. March 15, 2019: ??Phone call with Dr. Tapia with the patient's [id number]-kam reported that the patient had decided to undergo radiation treatment in [place]. ??She will have a follow-up abdominal MRI at [facility]. ??The patient will follow-up with her primary [...] and follow-up appointment with Dr. Mabry in [place] in 6 weeks. We will see the [...] Summer Pérez P.A.-C., M.S. 06/14/2019 3:30 PM [facility] [address] [place] [address] Associated attestation - Ursula Aguirre M.D. - [...] me to video and load this into surespot. I think she is doing well. She [...] foodshe should wait. She will see our traffic supervisor after our appointment. We will see her [...] Radiology Mark Eastman M.D., M.S. [address] [place] [address] 04/26/2022 Office Visit Otorhinolaryngology Roxanne Lanza APRN, C.N.P. [address] [place] [phone] 04/28/2022 Appointment Radiation Oncology Ursula Aguirre M.D. [address] [place] [address] Scheduled Referrals Name Type Priority Associated Diagnoses Order S chedule Radiation Oncology Outpatient Referral Routine On ce for 1 office visit Occurrences (clinic) starting 2018 until 9 Return to provider Outpatient Referral Routine Malignant Neopl asm Expected: in another Of Supraglottic 06/14/2019 specialty ([facility]) (Approximate), Expires: 2021 Radiation Oncology Outpatient Referral Routine Ex pected: office visit 08/02/2019 (clinic) (Approximate), Expires: 2019 Nutrition - Outpatient Referral Routine Malignant Neoplasm Ex pected: Medical nutrition Of Supraglottic 019 therapy consult ([facility]) (Approximate ), (clinic) Expires: 2021 documented as of this encounter Results PET CT Skull to Thigh FDG (08/24/2019 10:53 AM LEAD PRESS OPERATOR) Anatomical Region Laterality Modality Body, Nuclear Medicine PET RST LOS, N/A Posi nasreen Emission Tomography (PET), PET ARZ LOS, Nuclear Medicine PET FLA Po sitron Emission Tomography (PET) LOS, Nuclear Medicine Specimen (Source) Anatomical Collection Method Collection Time Re ceived Time Location / / Volume Laterality 08/24/2019 12:36 PM LEAD PRESS OPERATOR Impressions 08/24/2019 12:59 PM LEAD PRESS OPERATOR No evidence for recurrent or metastatic supraglottic squamous cell carcinoma. Narrative 08/24/2019 12:59 PM LEAD PRESS OPERATOR EXAM: ??PET CT SKULL TO THIGH FDG Finger stick glucose level at the time o f the PET scan injection was 92 mg/dL. Patient followed standard dietary/fastin g requirements for this exam. RADIOPHARMACEUTICAL/MEDS: Route: intravenous fludeoxyglucose F 18 injection LONG TERM (FDG F-18),15.01 millicurie TECHNIQUE: ??F-18 FDG PET/CT [...] RADIOPHARMACEUTICAL/MEDS: Route: intravenous fludeoxyglucose F 18 injection LONG TERM (FDG F-18),15.01 millicurie TECHNIQUE: F-18 FDG PET/CT [...]
--- OUTSIDE RECORDS SUMMARY | 2022-04-05 09:23 | XMS_ITS | Encounter Summary ---
:1955 Author Organization [facility] Address [address] [place] [address] Care Team Providers Name Role Phone Unavailable Primary Care Provider Unavailable Reason for Visit Reason Comments Feeding Tube Outpatient (Routine) - Closed Specialty Diagnoses / Procedures Referred By Contact Refer red To Contact Endocrinology Diagnoses Malignant Neoplasm Of Supraglottic (HCC) Lara Castellanos [facility] AMAYA, C.N.P. [address] [place] [phone] Referral ID Status Reason Start Date Expiration Date Visits Requ ested Visits Authorized [id number] Closed 06/18/2019 06/17/2020 1 1 Encounter Details Date Type Department Care Team Description 08/02/2019 Nurse Only Division of Endocrinology in Lara Grijalva APRN, C.N.P. [address] [place] [phone] Feeding Tube [place], [place] Chio Whitaker, RShitalN. [address] [place] [address] [phone] [address] [place] [phone] Social History Tobacco Use Types Packs/Day [...] do you attend mormonism or Never 2018 mosque services? Do you [...] (154 lb 8.7 oz) 08/02/2019 9:57 AM HOME RESTORATION SERVICE SUPERVISOR Height - - Body Mass Index 25.2 [...] PEG tube Tube size: 20 Tube brand: [employer] Tube reference number: [id number] Connector type: Small [...] replacement: NA Special order tube: GI/IR supply aide notified? NA PLAN Were procedural instructions given? [...] scheduled? Date: 08/02/19, Time: 1400 and Location: [facility] Is a return visit needed? 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 RESTORATION SERVICE SUPERVISOR documented in this encounter Plan of Treatment Upcoming Encounters Date Type Specialty Care Team Description 04/22/2022 Clinical Admitting/Central Communication Scheduling 04/26/2022 Appointment Radiology Mark Eastman M.D., M.S. [address] [place] [phone] 04/26/2022 Office Visit Otorhinolaryngology Roxanne Lanza APRN, C.N.P. [address] [place] [phone] 04/28/2022 Appointment Radiation Oncology Ursula Aguirre M.D. [address] [place] [phone] documented as of this encounter Visit Diagnoses Diagnosis Malignant Neoplasm Of Supraglottic (HCC) documented in this encounter
--- OUTSIDE RECORDS SUMMARY | 2022-04-05 09:23 | XMS_ITS | Encounter Summary ---
:1955 Author Organization [facility] Address [address] [place] [address] Care Team Providers Name Role Phone Unavailable Primary Care Provider Unavailable Reason for Referral Outpatient (Routine) - Closed Specialty Diagnoses / Procedures Referred By Contact Refer red To Contact Radiation Oncology Summer Pérez P.A.-C., [facility] [address] [place] [phone] Referral ID Status Reason Start Date Expiration Date Visits Requ ested Visits Authorized [id number] Closed 05/22/2019 05/21/2020 1 1 Scheduling Instructions Schedule diet also. Encounter Details Date Type Department Care Team Description 05/22/2019 Orders Only Department of Radiation Summer Pérez P.A .-C., Oncology in [place] [address] [place] [phone] (Wo rk) Social History Tobacco Use Types [...] do you attend alevism or Never 2018 jainism services? Do you [...] Radiology Mark Eastman M.D., M.S. [address] [place] [phone] 04/26/2022 Office Visit Otorhinolaryngology Roxanne Lanza APRN, C.N.P. [address] [place] [phone] 04/28/2022 Appointment Radiation Oncology Ursula Aguirre M.D. [address] [place] [address] [phone] Scheduled Referrals Name Type Priority Associated Diagnoses Order S chedule Radiation Oncology Outpatient Referral Routine Ex pected: office visit 05/24/2019 (clinic) (Approximate), Expires: 05/22/2020 documented as of this encounter Visit Diagnoses Not on filedocumented in this encounter
--- OUTSIDE RECORDS SUMMARY | 2022-04-05 09:23 | XMS_ITS | Encounter Summary ---
:1955 Author Organization [facility] [place] [facility] Address [address] [place] [address] Care Team Providers Name Role Phone Unavailable Primary Care Provider Unavailable Encounter Details Date Type Department Care Team Description 05/11/2019 Abstract Department of Radiation Jannet Cross R.N. Oncology in [place], [address] [place] [address] [facility] [address] [place] [address] [phone] Social History Tobacco Use Types Packs/Day Years [...] do you attend worship or Never 2018 religion services? Do you [...] Radiology Mark Eastman M.D., M.S. [address] [place] [phone] 04/26/2022 Office Visit Otorhinolaryngology Roxanne Lanza APRN, C.N.P. [address] [place] [phone] 04/28/2022 Appointment Radiation Oncology Ursula Aguirre M.D. [address] [place] [phone] documented as of this encounter Visit Diagnoses Not on filedocumented in this encounter
--- OUTSIDE RECORDS SUMMARY | 2022-04-05 09:23 | XMS_ITS | Encounter Summary ---
:1955 Author Organization [facility] Address [address] [place] [address] Care Team Providers Name Role Phone Unavailable Primary Care Provider Unavailable Reason for Referral Outpatient (Routine) - Closed Specialty Diagnoses / Procedures Referred By Contact Refer red To Contact Diagnoses Malignant Neoplasm Of Supraglottic (HCC) Lara Castellanos [place] [facility] ion Procedures Percutaneous Endoscopic Gastrostomy EXPEDITION SUPERVISOR, C.N.P. [address] [place] [phone] Referral ID Status Reason Start Date Expiration Date Visits Requ ested Visits Authorized [id number] Closed 06/18/2019 06/17/2020 1 1 utpatient (Routine) - Closed Specialty Diagnoses / Procedures Referred By Contact Refer red To Contact Endocrinology Diagnoses Malignant Neoplasm Of Supraglottic ([facility]) [facility] EXPEDITION SUPERVISOR, C.N.P. [address] [place] [phone] Referral ID Status Reason Start Date Expiration Date Visits Requ ested Visits Authorized [id number] Closed 06/18/2019 06/17/2020 1 1 Scheduling Instructions RN30 ESSOR OF OCEANOGRAPHY Encounter Details Date Type Department Care Team Description 06/18/2019 Orders Only Division of [place], Malignant Neopl asm Of Endocrinology in [place] Joyce, Supraglo ttic (HCC) [place], [place] [facility] (Primary Dx) [address] [place] [address] [place], [place] [phone] Social History Tobacco Use Types Packs/Day Years [...] do you attend confucianist or Never 2018 restorationist services? Do you [...] Radiology Mark Eastman M.D., M.S. [address] [place] [phone] 04/26/2022 Office Visit Otorhinolaryngology Roxanne Lanza, EXPEDITION SUPERVISOR, C.N.P. [address] [place] [phone] 04/28/2022 Appointment Radiation Oncology Ursula Aguirre M.D. [address] [place] [phone] Scheduled Referrals Name Type Priority Associated Diagnoses Order S [facility] Endocrinology nurse Outpatient Routine Malignant Neoplasm Ex pected: visit (clinic) Referral Of Supraglottic 08/02/2019 (HCC) (Approximate), Expires: 06/18/2022 documented as of this encounter Visit Diagnoses Diagnosis Malignant Neoplasm Of Supraglottic (HCC) - Primary documented in this encounter
--- OUTSIDE RECORDS SUMMARY | 2022-04-05 09:24 | XMS_ITS | Encounter Summary ---
:1955 Author Organization [facility] Address [address] [place] [address] Care Team Providers Name Role Phone Unavailable Primary Care Provider Unavailable Reason for Visit Radiation Therapy (Routine) - Closed Specialty Diagnoses / Procedures Referred By Contact Refer red To Contact Diagnoses Malignant Neoplasm Of Supraglottic (HCC) Ursula Aguirre M.D. [facility] Procedures Prior Auth Rad Tx ME IMRT COMPLEX [address] [place] [phone] Referral ID Status Reason Start Date Expiration Date Visits Requ ested Visits Authorized [id number] Closed 03/15/2019 03/14/2020 35 35 Encounter Details Date Type Department Care Team Description 04/30/2019 Hospital Encounter Department of Radiation Bud Aguirre I., Oncology in [place] [address] [facility] [[email or web address] [address] [place] [phone] Social History Tobacco Use Types Packs/Day Years [...] do you attend yazidism or Never 2018 mu-ism services? Do you [...] Radiology Mark Eastman M.D., M.S. [address] [place] [phone] 04/26/2022 Office Visit Otorhinolaryngology Roxanne Lanza APRN, C.N.P. [address] [place] [phone] 04/28/2022 Appointment Radiation Oncology Ursula Aguirre M.D. [address] [place] [phone] documented as of this encounter Visit Diagnoses Not on filedocumented in this encounter
--- OUTSIDE RECORDS SUMMARY | 2022-04-05 09:24 | XMS_ITS | Encounter Summary ---
:1955 Author Organization [facility] Address [address] [place] [address] Care Team Providers Name Role Phone Unavailable Primary Care Provider Unavailable Reason for Referral Outpatient (Routine) - Closed Specialty Diagnoses / Procedures Referred By Contact Refer red To Contact Nutrition Diagnoses Malignant Neoplasm Of Supraglottic (HCC) Summer Pérez P.A.-C., INDRA [facility] [address] [place] [phone] Referral ID Status Reason Start Date Expiration Date Visits Requ ested Visits Authorized [id number] Closed 03/29/2019 03/28/2020 1 1 Reason for Visit Outpatient (Routine) - Closed Specialty Diagnoses / Procedures Referred By Contact Refer red To Contact Nutrition Diagnoses Malignant Neoplasm Of Supraglottic (HCC) Summer Pérez P.A.-C., [facility] [address] [place] [phone] Referral ID Status Reason Start Date Expiration Date Visits Requ ested Visits Authorized [id number] Closed 03/29/2019 03/28/2020 1 1 Encounter Details Date Type Department Care Team Description 05/03/2019 Hospital Encounter Department of Summer Pérez P.A.-C., M.S. [address] [place] [phone] Malignant Neoplasm Of Radiation Oncology Ryanne Mcbride, JUANITO [address] [place] [address] Supraglottic (HCC) in [place], [place] [address] [place] [address] Social History Tobacco Use Types [...] you attend roman catholic or Never 2018 yarsani services? Do you [...] Chew 81 mg every 0 tablet evening. 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 Food/Nutrient Related [...] that will provide needed supplies for home: ??[employer]??. They delivered supplies??04/18/19. ?? Indication for Ongoing [...] 04/26/2022 Appointment Radiology Mark Eastman M.D., M.S. [address] [place] [phone] 04/26/2022 Office Visit Otorhinolaryngology Roxanne Lanza APRN, C.N.P. [address] [place] [phone] 04/28/2022 Appointment Radiation Oncology Ursula Aguirre M.D. [address] [place] [phone] Scheduled Referrals Name Type Priority Associated Diagnoses Order S chedule Nutrition - Outpatient Referral Routine Malignant Neoplasm On ce for 1 Medical nutrition Of Supraglottic Occurre nces therapy consult (HCC) starting (clinic) until 9 documented as of this encounter Visit Diagnoses Diagnosis Malignant Neoplasm Of Supraglottic (HCC) documented in this encounter
--- OUTSIDE RECORDS SUMMARY | 2022-04-05 09:24 | XMS_ITS | Encounter Summary ---
:1955 Author [facility] Address [address] [place] [address] Care Team Providers Name Role Phone Unavailable Primary Care Provider Unavailable Reason for Referral Radiation Therapy (Routine) - Canceled Specialty Diagnoses / Procedures Referred By Contact Refer red To Contact Diagnoses Malignant Neoplasm Of Supraglottic (HCC) Ursula Aguirre M.D. [facility] Procedures Management Visit [address] [place] [address] [phone] Referral ID Status Reason Start Date Expiration Date Visits V isits Requested Authorized [id number] Canceled 03/15/2019 03/14/2020 1 1 Reason for Visit Radiation Therapy (Routine) - Canceled Specialty Diagnoses / Procedures Referred By Contact Refer red To Contact Diagnoses Malignant Neoplasm Of Supraglottic (HCC) Ursula Aguirre M.D. [facility] Procedures Management Visit [address] [place] [phone] Referral ID Status Reason Start Date Expiration Date Visits V isits Requested Authorized [id number] Canceled 03/15/2019 03/14/2020 1 1 Encounter Details Date Type Department Care Team Description 04/24/2019 Hospital Encounter Department of Peter Schultz Neoplasm Of Radiation Oncology Jose Serna M.D. Supraglottic (HCC) in [place], [address] [place], [place] 1821 [facility] [address] [place], [place] [phone] [address] (Work) [phone] Social History Tobacco Use Types Packs/Day Years [...] do you attend judaism or Never 2018 orthodox services? Do you [...] Chew 81 mg every 0 tablet evening. Kongregate Aspirin diaper,brief,adult,disposab Bag: (36 each) 36 each [...] She denies tightening of the jaw area. [place] butter is being applied to the treatment [...] by: Jose Schultz M.D. 04/24/2019 4:46 PM [facility] [address] [place] [address] documented in this encounter Plan of Treatment Upcoming Encounters Date Type Specialty Care Team Description 04/22/2022 Clinical Admitting/Central Communication Scheduling 04/26/2022 Appointment Radiology Mark Eastman M.D., M.S. [address] [place] [address] 04/26/2022 Office Visit Otorhinolaryngology Roxanne Lanza APRN, C.N.P. [address] [place] [phone] 04/28/2022 Appointment Radiation Oncology Ursula Aguirre M.D. [address] [place] [phone] Scheduled Orders Name Type Priority Associated Diagnoses Order S chedule Management Visit Radiation Oncology Routine Malignant Neoplasm Of Once for 1 Supraglottic (HCC) Occurrenc es starting 04/24/2019 unti l 04/24/2019 documented as of this encounter Visit Diagnoses Diagnosis Malignant Neoplasm Of Supraglottic (HCC) documented in this encounter
--- OUTSIDE RECORDS SUMMARY | 2022-04-05 09:24 | XMS_ITS | Encounter Summary ---
:1955 Author Organization [facility] Address [address] [place] [address] Care Team Providers Name Role Phone Unavailable Primary Care Provider Unavailable Reason for Visit Radiation Therapy (Routine) - Closed Specialty Diagnoses / Procedures Referred By Contact Refer red To Contact Diagnoses Malignant Neoplasm Of Supraglottic (HCC) Ursula Aguirre M.D. [facility] Procedures Prior Auth Rad Tx [place] IMRT COMPLEX [address] [place] [phone] Referral ID Status Reason Start Date Expiration Date Visits Requ ested Visits Authorized [id number] Closed 03/15/2019 03/14/2020 35 35 Encounter Details Date Type Department Care Team Description 05/03/2019 Hospital Encounter Department of Radiation Bud Aguirre I., Oncology in [place] [address] [facility] 1821 [place] [address] [phone] Social History Tobacco Use Types Packs/Day Years [...] do you attend quaker or Never 2018 denominational services? Do you [...] Radiology Mark Eastman M.D., M.S. [address] [place] [phone] 04/26/2022 Office Visit Otorhinolaryngology Roxanne Lanza APRN, C.N.P. [address] [place] [phone] 04/28/2022 Appointment Radiation Oncology Ursula Aguirre M.D. [address] [place] [phone] documented as of this encounter Visit Diagnoses Not on filedocumented in this encounter
--- OUTSIDE RECORDS SUMMARY | 2022-04-05 09:24 | XMS_ITS | Encounter Summary ---
:1955 Author Organization [facility] Address [address] [place] [address] Care Team Providers Name Role Phone Unavailable Primary Care Provider Unavailable Reason for Visit Radiation Therapy (Routine) - Closed Specialty Diagnoses / Procedures Referred By Contact Refer red To Contact Diagnoses Malignant Neoplasm Of Supraglottic (HCC) Ursula Aguirre M.D. [facility] Procedures Prior Auth Rad Tx [place] IMRT COMPLEX [address] [place] [phone] Referral ID Status Reason Start Date Expiration Date Visits Requ ested Visits Authorized [id number] Closed 03/15/2019 03/14/2020 35 35 Encounter Details Date Type Department Care Team Description 04/25/2019 Hospital Encounter Department of Radiation Bud Aguirre I., Oncology in [place] [address] [place] [address] [place] [address] [phone] Social History Tobacco Use Types Packs/Day Years [...] do you attend pentecostalism or Never 2018 anabaptism services? Do you [...] Radiology Mark Eastman M.D., M.S. [address] [place] [phone] 04/26/2022 Office Visit Otorhinolaryngology Roxanne Lanza APRN, C.N.P. [address] [place] [phone] 04/28/2022 Appointment Radiation Oncology Ursula Aguirre M.D. [address] [place] [phone] documented as of this encounter Visit Diagnoses Not on filedocumented in this encounter
--- OUTSIDE RECORDS SUMMARY | 2022-04-05 09:24 | XMS_ITS | Encounter Summary ---
:1955 Author Organization [facility] Address [address] [place] [address] Care Team Providers Name Role Phone Unavailable Primary Care Provider Unavailable Reason for Visit Radiation Therapy (Routine) - Closed Specialty Diagnoses / Procedures Referred By Contact Refer red To Contact Diagnoses Malignant Neoplasm Of Supraglottic (HCC) Ursula Aguirre M.D. [facility] Procedures Prior Auth Rad Tx [place] IMRT COMPLEX [address] [place] [phone] Referral ID Status Reason Start Date Expiration Date Visits Requ ested Visits Authorized [id number] Closed 03/15/2019 03/14/2020 35 35 Encounter Details Date Type Department Care Team Description 05/02/2019 Hospital Encounter Department of Radiation Bud Aguirre I., [place]cology in [place] [address] [facility] 1821 [place] [address] [phone] Social History Tobacco Use Types Packs/Day Years [...] do you attend protestant or Never 2018 orthodoxy services? Do you [...] Radiology Mark Eastman M.D., M.S. [address] [place] [phone] 04/26/2022 Office Visit Otorhinolaryngology Roxanne Lanza APRN, C.N.P. [address] [place] [phone] 04/28/2022 Appointment Radiation Oncology Ursula Aguirre M.D. [address] [place] [phone] documented as of this encounter Visit Diagnoses Not on filedocumented in this encounter
--- OUTSIDE RECORDS SUMMARY | 2022-04-05 09:24 | XMS_ITS | Encounter Summary ---
:[address] [facility] Address [address] [place] [address] Care Team Providers Name Role Phone Unavailable Primary Care Provider Unavailable Reason for Visit Radiation Therapy (Routine) - Closed Specialty Diagnoses / Procedures Referred By Contact Refer red To Contact Diagnoses Malignant Neoplasm Of Supraglottic (HCC) Ursula Aguirre M.D. [facility] Procedures Prior Auth Rad Tx [place] IMRT COMPLEX [address] [place] [phone] Referral ID Status Reason Start Date Expiration Date Visits Requ ested Visits Authorized [id number] Closed 03/15/2019 03/14/2020 35 35 Encounter Details Date Type Department Care Team Description 04/24/2019 Hospital Encounter Department of Radiation Bud Aguirre I., Oncology in [place] [address] [facility] 1821 [place] [address] [phone] Social History Tobacco Use Types Packs/Day Years [...] Radiology Mark Eastman M.D., M.S. [address] [place] [phone] 04/26/2022 Office Visit Otorhinolaryngology Roxanne Lanza APRN, C.N.P. [address] [place] [phone] 04/28/2022 Appointment Radiation Oncology Ursula Aguirre M.D. [address] [place] [phone] documented as of this encounter Visit Diagnoses Not on filedocumented in this encounter
--- OUTSIDE RECORDS SUMMARY | 2022-04-05 09:24 | XMS_ITS | Encounter Summary ---
:[address] [facility] Address [address] [place] [address] Care Team Providers Name Role Phone Unavailable Primary Care Provider Unavailable Reason for Visit Radiation Therapy (Routine) - Closed Specialty Diagnoses / Procedures Referred By Contact Refer red To Contact Diagnoses Malignant Neoplasm Of Supraglottic (HCC) Ursula Aguirre M.D. [facility] Procedures Prior Auth Rad Tx [place] IMRT COMPLEX [address] [place] [phone] Referral ID Status Reason Start Date Expiration Date Visits Requ ested Visits Authorized [id number] Closed 03/15/2019 03/14/2020 35 35 Encounter Details Date Type Department Care Team Description 05/02/2019 Hospital Encounter Department of Radiation Bud Aguirre I., Oncology in [place] [address] [facility] 1821 [place] [address] [phone] Social History Tobacco Use Types Packs/Day Years [...] do you attend advent or Never 2018 mu-ism services? Do you [...] Appointment Radiology Mark Eastman M.D., M.S. [address] [place] [phone] 04/26/2022 Office Visit Otorhinolaryngology Roxanne Lanza APRN, C.N.P. [address] [place] [address] [phone] 04/28/2022 Appointment Radiation Oncology Ursula Aguirre M.D. [address] [place] [address] [phone] documented as of this encounter Visit Diagnoses Not on filedocumented in this encounter
--- OUTSIDE RECORDS SUMMARY | 2022-04-05 09:24 | XMS_ITS | Encounter Summary ---
:1955 Author Organization [facility] Address [address] [place] [address] Care Team Providers Name Role Phone Unavailable Primary Care Provider Unavailable Reason for Visit Radiation Therapy (Routine) - Closed Specialty Diagnoses / Procedures Referred By Contact Refer red To Contact Diagnoses Malignant Neoplasm Of Supraglottic (HCC) Ursula Aguirre M.D. [facility] Procedures Prior Auth Rad Tx [place] IMRT COMPLEX [address] [place] [phone] Referral ID Status Reason Start Date Expiration Date Visits Requ ested Visits Authorized [id number] Closed 03/15/2019 03/14/2020 35 35 Encounter Details Date Type Department Care Team Description 05/01/2019 Hospital Encounter Department of Radiation Bud Aguirre I., Oncology in [place] [address] [facility] 1821 [place] [address] [phone] Social History Tobacco Use Types Packs/Day Years [...] do you attend evangelical or Never 2018 taoism services? Do you [...] Appointment Radiology Mark Eastman M.D., M.S. [address] [place] [phone] 04/26/2022 Office Visit Otorhinolaryngology Roxanne Lanza APRN, C.N.P. [address] [place] [phone] 04/28/2022 Appointment Radiation Oncology Ursula Aguirre M.D. [address] [place] [address] [phone] documented as of this encounter Visit Diagnoses Not on filedocumented in this encounter
--- OUTSIDE RECORDS SUMMARY | 2022-04-05 09:24 | XMS_ITS | Encounter Summary ---
:1955 Author Organization [facility] Address [address] [place] [address] Care Team Providers Name Role Phone Unavailable Primary Care Provider Unavailable Encounter Details Date Type Department Care Team Description 04/26/2019 Clinical Communication Department of Radiation Kareem Pérez, Oncology in [place], PMassiel, M.S. [address] 1821 [place] [address] [phone] Social History Tobacco Use Types Packs/Day Years [...] do you attend yazidi or Never 2018 nondenominational services? Do you [...] Radiology Mark Eastman M.D., M.S. [address] [place] [phone] 04/26/2022 Office Visit Otorhinolaryngology Roxanne Lanza, FREIGHT SALES BROKER, C.N.P. [address] [place] [phone] 04/28/2022 Appointment Radiation Oncology Ursula Aguirre M.D. [address] [place] [phone] documented as of this encounter Visit Diagnoses Not on filedocumented in this encounter
--- OUTSIDE RECORDS SUMMARY | 2022-04-05 09:24 | XMS_ITS | Encounter Summary ---
:1955 Author Organization [facility] Address [address] [place] [address] Care Team Providers Name Role Phone Unavailable Primary Care Provider Unavailable Reason for Referral Outpatient (Routine) - Closed Specialty Diagnoses / Procedures Referred By Contact Refer red To Contact Nutrition Diagnoses Malignant Neoplasm Of Supraglottic (HCC) Summer Péerz P.A.-C., [facility] [address] [place] [phone] Referral ID Status Reason Start Date Expiration Date Visits Requ ested Visits Authorized [id number] Closed 03/29/2019 03/28/2020 1 1 Reason for Visit Outpatient (Routine) - Closed Specialty Diagnoses / Procedures Referred By Contact Refer red To Contact Nutrition Diagnoses Malignant Neoplasm Of Supraglottic (HCC) Summer Pérez P.A.-C., [facility] [address] [place] [phone] Referral ID Status Reason Start Date Expiration Date Visits Requ ested Visits Authorized [id number] Closed 03/29/2019 03/28/2020 1 1 Encounter Details Date Type Department Care Team Description 04/26/2019 Hospital Encounter Department of Summer Pérez P.A.-C., M.S. [address] [place] [phone] Malignant Neoplasm Of Radiation Oncology Ryanne Mcbride, JUANITO [address] [place] [address] Supraglottic (HCC) in [place], [place] [address] [place] [address] Social History Tobacco Use Types [...] do you attend congregational or Never 2018 zoroastrian services? 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 Food/Nutrient Related [...] that will provide needed supplies for home: ??[place]??. They delivered supplies 04/18/19. ?? Indication for [...] Eastman M.D., M.S. [address] [place] [phone] 04/26/2022 Office Visit Otorhinolaryngology Roxanne Lanza APRN, C.N.P. [address] [place] [phone] 04/28/2022 Appointment Radiation Oncology Ursula Aguirre M.D. 200 [place] [address] Scheduled Referrals Name Type Priority Associated Diagnoses Order S chedule Nutrition - Outpatient Referral Routine Malignant Neoplasm On ce for 1 Medical nutrition Of Supraglottic Occurre nces therapy consult (HCC) starting 07/2019 (clinic) until 9 documented as of this encounter Visit Diagnoses Diagnosis Malignant Neoplasm Of Supraglottic (HCC) documented in this encounter
--- OUTSIDE RECORDS SUMMARY | 2022-04-05 09:24 | XMS_ITS | Encounter Summary ---
:1955 Author Organization [facility] Address [address] [place] [address] Care Team Providers Name Role Phone Unavailable Primary Care Provider Unavailable Reason for Referral Outpatient (Routine) - Closed Specialty Diagnoses / Procedures Referred By Contact Refer red To Contact Radiation Oncology Summer Pérez P.A.-C., [facility] M.S. [address] [place] [address] Referral ID Status Reason Start Date Expiration Date Visits Requ ested Visits Authorized [id number] Closed 05/03/2019 05/02/2020 1 1 Scheduling Instructions Coordinate with diet appt. Radiation Therapy (Routine) - Canceled Specialty Diagnoses / Procedures Referred By Contact Refer red To Contact Diagnoses Malignant Neoplasm Of Supraglottic (HCC) Ursula Aguirre M.D. [facility] Procedures Management Visit [address] [place] [phone] Referral ID Status Reason Start Date Expiration Date Visits V isits Requested Authorized [id number] Canceled 03/15/2019 03/14/2020 1 1 Reason for Visit Radiation Therapy (Routine) - Canceled Specialty Diagnoses / Procedures Referred By Contact Refer red To Contact Diagnoses Malignant Neoplasm Of Supraglottic (HCC) Ursula Aguirre M.D. [facility] Region Procedures Management Visit [address] [place] [address] Referral ID Status Reason Start Date Expiration Date Visits Rico iqbal Requested Authorized [id number] Canceled 03/15/2019 03/14/2020 1 1 Encounter Details Date Type Department Care Team Description 05/03/2019 Hospital Encounter Department of Ursula Aguirre Neoplasm Of Radiation Oncology Kimberley Bacon Supraglottic (HCC) in [place], [address] [place], [place] 1821 [facility] [address] [place], [place] [phone] (Work) [phone] Social History Tobacco Use Types Packs/Day Years [...] do you attend sabianism or Never 2018 rastafari services? Do you [...] follow-up. We will have her see our verification specialist at the same time. Signed by: Ursula [...] 04/26/2022 Appointment Radiology Mark Eastman M.D., M.S. [address] [place] [phone] 04/26/2022 Office Visit Otorhinolaryngology Roxanne Lanza APRN, C.N.P. [address] [place] [phone] 04/28/2022 Appointment Radiation Oncology Ursula Aguirre M.D. [address] [place] [address] Scheduled Orders Name Type Priority Associated Diagnoses [...]
--- OUTSIDE RECORDS SUMMARY | 2022-04-05 09:24 | XMS_ITS | Encounter Summary ---
:1955 Author Organization [facility] Address [address] [place] [address] Care Team Providers Name Role Phone Unavailable Primary Care Provider Unavailable Encounter Details Date Type Department Care Team Description 05/02/2019 Clinical Communication Department of Radiation Kareem Pérez, Oncology in [place], PMassiel, M.S. [address] [place] [phone] Social History Tobacco Use Types Packs/Day Years [...] do you attend religious or Never 2018 adventist services? Do you [...] Appointment Radiology Mark Eastman M.D., M.S. [address] [place] [phone] 04/26/2022 Office Visit Otorhinolaryngology Roxanne Lanza, SENIOR ENGINEERING TECH, C.N.P. [address] [place] [phone] 04/28/2022 Appointment Radiation Oncology Ursula Aguirre M.D. [address] [place] [address] [phone] documented as of this encounter Visit Diagnoses Not on filedocumented in this encounter
--- OUTSIDE RECORDS SUMMARY | 2022-04-05 09:24 | XMS_ITS | Encounter Summary ---
:1955 Author Organization [facility] Address [address] [place] [address] Care Team Providers Name Role Phone Unavailable Primary Care Provider Unavailable Reason for Visit Radiation Therapy (Routine) - Closed Specialty Diagnoses / Procedures Referred By Contact Refer red To Contact Diagnoses Malignant Neoplasm Of Supraglottic (HCC) Ursula Aguirre M.D. [facility] Procedures Prior Auth Rad Tx [place] IMRT COMPLEX [address] [place] [phone] Referral ID Status Reason Start Date Expiration Date Visits Requ ested Visits Authorized [id number] Closed 03/15/2019 03/14/2020 35 35 Encounter Details Date Type Department Care Team Description 04/25/2019 Hospital Encounter Department of Radiation Bud Aguirre I., [place] [address] [facility] [address] [place] [phone] Social History Tobacco Use Types Packs/Day Years [...] do you attend tenriism or Never 2018 buddhist services? Do you [...] Radiology Mark Eastman M.D., M.S. [address] [place] [phone] 04/26/2022 Office Visit Otorhinolaryngology Roxanne Lanza APRN, C.N.P. [address] [place] [phone] 04/28/2022 Appointment Radiation Oncology Ursula Aguirre M.D. [address] [place] [phone] documented as of this encounter Visit Diagnoses Not on filedocumented in this encounter"
--- OUTSIDE RECORDS SUMMARY | 2022-04-05 09:24 | XMS_ITS | Encounter Summary ---
:1955 Author Organization [facility] Address [address] [place] [address] Care Team Providers Name Role Phone Unavailable Primary Care Provider Unavailable Reason for Referral Radiation Therapy (Routine) - Canceled Specialty Diagnoses / Procedures Referred By Contact Refer red To Contact Diagnoses Malignant Neoplasm Of Supraglottic (HCC) Ursula Aguirre M.D. [facility] Procedures Management Visit [address] [place], [place] [address] Referral ID Status Reason Start Date Expiration Date Visits V isits Requested Authorized [id number] Canceled 04/09/2019 04/08/2020 10 10 Reason for Visit Radiation Therapy (Routine) - Canceled Specialty Diagnoses / Procedures Referred By Contact Refer red To Contact Diagnoses Malignant Neoplasm Of Supraglottic (HCC) Ursula Aguirre M.D. [facility] Region Procedures Management Visit [address] [place] [address] Referral ID Status Reason Start Date Expiration Date Visits V isits Requested Authorized [id number] Canceled 04/09/2019 04/08/2020 10 10 Encounter Details Date Type Department Care Team Description 04/27/2019 Hospital Encounter Department of Chucky Menchaca Neoplasm Of Radiation Oncology Kimberley Crabtree Supraglottic (HCC) in [place] [address] [address] [place], [place] 1821 [facility] [address] [place], [place] [phone] (Work) [phone] Social History Tobacco Use Types Packs/Day Years [...] do you attend baptism or Never 2018 samaritan services? Do you [...] Chew 81 mg every 0 tablet evening. [employer] Aspirin diaper,brief,adult,disposab Bag: (36 each) 36 each [...] by mouth. She denies fevers or chills. [place] butter is being applied to the treatment [...] No definite cellulitis. Chucky Menchaca MD [facility] Radiation Therapy [place], [place] documented in this encounter Plan of Treatment Upcoming Encounters Date Type Specialty Care Team Description 04/22/2022 Clinical Admitting/Central Communication Scheduling 04/26/2022 Appointment Radiology Mark Eastman M.D., M.S. [address] [place] [phone] 04/26/2022 Office Visit Otorhinolaryngology Roxanne Lanza APRN, C.N.P. [address] [place] [phone] 04/28/2022 Appointment Radiation Oncology Ursula Aguirre M.D. [address] [place] [phone] Scheduled Orders Name Type Priority Associated Diagnoses Order S chedule Management Visit Radiation Oncology Routine Malignant Neoplasm Of Once for 1 Supraglottic (HCC) Occurrenc es starting 04/27/2019 unti l 04/27/2019 documented as of this encounter Visit Diagnoses Diagnosis Malignant Neoplasm Of Supraglottic (HCC) documented in this encounter
--- OUTSIDE RECORDS SUMMARY | 2022-04-05 09:24 | XMS_ITS | Encounter Summary ---
:1955 Author Organization [facility] Address [address] [place] [address] Care Team Providers Name Role Phone Unavailable Primary Care Provider Unavailable Reason for Visit Radiation Therapy (Routine) - Closed Specialty Diagnoses / Procedures Referred By Contact Refer red To Contact Diagnoses Malignant Neoplasm Of Supraglottic (HCC) Ursula Aguirre M.D. [facility] Procedures Prior Auth Rad Tx [place] IMRT COMPLEX [address] [place] [phone] Referral ID Status Reason Start Date Expiration Date Visits Requ ested Visits Authorized [id number] Closed 03/15/2019 03/14/2020 35 35 Encounter Details Date Type Department Care Team Description 04/26/2019 Hospital Encounter Department of Radiation Bud Aguirre I., [place] [address] [facility] [address] [place] [address] [phone] Social History Tobacco Use Types Packs/Day Years [...] do you attend temple or Never 2018 mosque services? Do you [...] Radiology Mark Eastman M.D., M.S. [address] [place] [phone] 04/26/2022 Office Visit Otorhinolaryngology Roxanne Lanza APRN, C.N.P. [address] [place] [phone] 04/28/2022 Appointment Radiation Oncology Ursula Aguirre M.D. [address] [place] [phone] documented as of this encounter Visit Diagnoses Not on filedocumented in this encounter
--- OUTSIDE RECORDS SUMMARY | 2022-04-05 09:24 | XMS_ITS | Encounter Summary ---
:1955 Author Organization [facility] Address [address] [place] [address] Care Team Providers Name Role Phone Unavailable Primary Care Provider Unavailable Reason for Visit Radiation Therapy (Routine) - Closed Specialty Diagnoses / Procedures Referred By Contact Refer red To Contact Diagnoses Malignant Neoplasm Of Supraglottic (HCC) Ursula Aguirre M.D. [facility] Procedures Prior Auth Rad Tx [place] IMRT COMPLEX [address] [place] [phone] Referral ID Status Reason Start Date Expiration Date Visits Requ ested Visits Authorized [id number] Closed 03/15/2019 03/14/2020 35 35 Encounter Details Date Type Department Care Team Description 04/27/2019 Hospital Encounter Department of Radiation Bud Aguirre I., Oncology in [place] 200 [address] [facility] 18[address] [place] [address] [phone] Social History Tobacco Use Types Packs/Day Years [...] do you attend presybeterian or Never 2018 alevism services? Do you [...] Radiology Mark Eastman M.D., M.S. [address] [place] [phone] 04/26/2022 Office Visit Otorhinolaryngology Roxanne Lanza APRN, C.N.P. [address] [place] [address] [phone] 04/28/2022 Appointment Radiation Oncology Ursula Aguirre M.D. [address] [place] [address] [phone] documented as of this encounter Visit Diagnoses Not on filedocumented in this encounter
--- OUTSIDE RECORDS SUMMARY | 2022-04-05 09:24 | XMS_ITS | Encounter Summary ---
:1955 Author Organization [facility] Address [address] [place] [address] Care Team Providers Name Role Phone Unavailable Primary Care Provider Unavailable Encounter Details Date Type Department Care Team Description 04/26/2019 Orders Only Department of Radiation Summer Pérez P.A .-C., Oncology in [facility] [address] [facility] 1821 [place] [phone] (Wo rk) Social History Tobacco Use Types [...] do you attend islam or Never 2018 rastafari services? Do you [...] Radiology Mark Eastman M.D., M.S. [address] [place] [phone] 04/26/2022 Office Visit Otorhinolaryngology Roxanne Lanza APRN, C.N.P. [address] [place] [phone] 04/28/2022 Appointment Radiation Oncology Ursula Aguirre M.D. [address] [place] [phone] documented as of this encounter Visit Diagnoses Not on filedocumented in this encounter
--- OUTSIDE RECORDS SUMMARY | 2022-04-05 09:24 | XMS_ITS | Encounter Summary ---
:1955 Author Organization [facility] Address [address] [place] [address] Care Team Providers Name Role Phone Unavailable Primary Care Provider Unavailable Reason for Referral Outpatient (Routine) - Canceled Specialty Diagnoses / Procedures Referred By Contact Refer red To Contact Radiation Oncology Diagnoses Malignant Neoplasm Of Supraglottic (HCC) Ursula Aguirre [facility] [place] [facility] M.[facility]. 200 [place] [address] Referral ID Status Reason Start Date Expiration Date Visits V isits Requested Authorized [id number] Canceled 03/15/2019 03/14/2020 1 1 Reason for Visit Outpatient (Routine) - Canceled Specialty Diagnoses / Procedures Referred By Contact Refer red To Contact Radiation Oncology Diagnoses Malignant Neoplasm Of Supraglottic (HCC) Ursula Aguirre [facility] [place] [facility] M.D. 200 [place] [address] Referral ID Status Reason Start Date Expiration Date Visits V isits Requested Authorized [id number] Canceled 03/15/2019 03/14/2020 1 1 Encounter Details Date Type Department Care Team Description 04/30/2019 Hospital Encounter Department of Mary Aguirre M.D. [address] [place] [phone] Malignant Neoplasm Of Radiation Oncology Jannet Cross R.N. 200 [place] [address] Supraglottic (HCC) in [place], [place] [address] [place] [address] Social History Tobacco Use Types Packs/Day Years [...] do you attend mormonism or Never 2018 mu-ism services? Do you [...] Chew 81 mg every 0 tablet evening. Externautics Aspirin diaper,brief,adult,disposab Bag: (36 each) 36 each [...] Radiology Mark Eastman M.D., M.S. [address] [place] [phone] 04/26/2022 Office Visit Otorhinolaryngology Roxanne Lanza APRN, C.N.P. [address] [place] [phone] 04/28/2022 Appointment Radiation Oncology Ursula Aguirre M.D. [address] [place] [phone] Scheduled Referrals Name Type Priority Associated Diagnoses Order S chedule Radiation Oncology Outpatient Referral Routine Malignant Neopl asm Once for 1 nurse visit Of Supraglottic Occurrences (clinic) (HCC) starting 2018 until 9 documented as of this encounter Visit Diagnoses Diagnosis Malignant Neoplasm Of Supraglottic (HCC) documented in this encounter
--- OUTSIDE RECORDS SUMMARY | 2022-04-05 09:25 | XMS_ITS | Encounter Summary ---
:[address] [facility] Address [address] [place] [address] Care Team Providers Name Role Phone Unavailable Primary Care Provider Unavailable Reason for Visit Radiation Therapy (Routine) - Closed Specialty Diagnoses / Procedures Referred By Contact Refer red To Contact Diagnoses Malignant Neoplasm Of Supraglottic (HCC) Ursula Aguirre M.D. [facility] Procedures Prior Auth Rad Tx [place] IMRT COMPLEX [address] [place] [phone] Referral ID Status Reason Start Date Expiration Date Visits Requ ested Visits Authorized [id number] Closed 03/15/2019 03/14/2020 35 35 Encounter Details Date Type Department Care Team Description 04/23/2019 Hospital Encounter Department of Radiation Bud Aguirre I., [place]cology [place] 200 [address] [facility] 1821 [place] [phone] Social History Tobacco Use Types Packs/Day Years [...] do you attend quaker or Never 2018 sikhism services? Do you [...] Radiology Mark Eastman M.D., M.S. [address] [place] [phone] 04/26/2022 Office Visit Otorhinolaryngology Roxanne Lanza APRN, C.N.P. [address] [place] [phone] 04/28/2022 Appointment Radiation Oncology Ursula Aguirre M.D. [address] [place] [phone] documented as of this encounter Visit Diagnoses Not on filedocumented in this encounter
--- OUTSIDE RECORDS SUMMARY | 2022-04-05 09:25 | XMS_ITS | Encounter Summary ---
:1955 Author Organization [facility] Address [address] [place] [address] Care Team Providers Name Role Phone Unavailable Primary Care Provider Unavailable Reason for Visit Outpatient (Routine) - Closed Specialty Diagnoses / Procedures Referred By Contact Refer red To Contact Endocrinology Diagnoses Malignant Neoplasm Of Supraglottic (HCC) Lara Castellanos, [facility] AMAYA, C.N.P. [address] [place] [phone] Referral ID Status Reason Start Date Expiration Date Visits Requ ested Visits Authorized [id number] Closed 04/13/2019 04/12/2020 1 1 Encounter Details Date Type Department Care Team Description 04/18/2019 Comprehensive Visit Division of Lara Castellanos APRN, C.N.P. [address] [place] [phone] Dysphagia (Primary Dx); Endocrinology in Padma Vieira APRN, C.N.P., M.S. [address] [place] [phone] Malignant Neoplasm Of Supraglottic (HCC) ; [place], [place] Home Enteral Nutrition [address] [place] [phone] Social History Tobacco Use Types Packs/Day Years [...] do you attend worship or Never 2018 bahai services? Do you [...] Radiology Mark Eastman M.D., M.S. [address] [place] [phone] 04/26/2022 Office Visit Otorhinolaryngology Roxanne Lanza APRN, C.NShitalPShital [address] [place] [phone] 04/28/2022 Appointment Radiation Oncology Ursula Aguirre M.D. [address] [place] [phone] documented as of this encounter Visit Diagnoses Diagnosis Dysphagia - Primary Malignant Neoplasm Of Supraglottic (HCC) Home Enteral Nutrition documented in this encounter
--- OUTSIDE RECORDS SUMMARY | 2022-04-05 09:25 | XMS_ITS | Encounter Summary ---
:1955 Author Organization [facility] Address [address] [place] [address] Care Team Providers Name Role Phone Unavailable Primary Care Provider Unavailable Reason for Visit Radiation Therapy (Routine) - Closed Specialty Diagnoses / Procedures Referred By Contact Refer red To Contact Diagnoses Malignant Neoplasm Of Supraglottic (HCC) Ursula Aguirre M.D. [facility] Procedures Prior Auth Rad Tx [place] IMRT COMPLEX [address] [place] [phone] Referral ID Status Reason Start Date Expiration Date Visits Requ ested Visits Authorized [id number] Closed 03/15/2019 03/14/2020 35 35 Encounter Details Date Type Department Care Team Description 04/20/2019 Hospital Encounter Department of Radiation Bud Aguirre I., [place]cology [place] 200 [address] [facility] 1821 [place] [phone] Social History Tobacco Use Types Packs/Day Years [...] do you attend jain or Never 2018 yazidism services? Do you [...] Radiology Mark Eastman M.D., M.S. [address] [place] [phone] 04/26/2022 Office Visit Otorhinolaryngology Roxanne Lanza APRN, C.N.P. [address] [place] [phone] 04/28/2022 Appointment Radiation Oncology rUsula Aguirre M.D. [address] [place] [phone] documented as of this encounter Visit Diagnoses Not on filedocumented in this encounter
--- OUTSIDE RECORDS SUMMARY | 2022-04-05 09:25 | XMS_ITS | Encounter Summary ---
:1955 Author Organization [facility] Address [address] [place] [address] Care Team Providers Name Role Phone Unavailable Primary Care Provider Unavailable Reason for Referral Outpatient (Routine) - Closed Specialty Diagnoses / Procedures Referred By Contact Refer red To Contact Nutrition Diagnoses Malignant Neoplasm Of Supraglottic (HCC) Summer Pérez P.A.-C., [facility] [address] [place] [phone] Referral ID Status Reason Start Date Expiration Date Visits Requ ested Visits Authorized [id number] Closed 03/29/2019 03/28/2020 1 1 Reason for Visit Outpatient (Routine) - Closed Specialty Diagnoses / Procedures Referred By Contact Refer red To Contact Nutrition Diagnoses Malignant Neoplasm Of Supraglottic (HCC) Summer Pérez P.A.-C., [facility] [address] [place] [phone] Referral ID Status Reason Start Date Expiration Date Visits Requ ested Visits Authorized [id number] Closed 03/29/2019 03/28/2020 1 1 Encounter Details Date Type Department Care Team Description 04/19/2019 Hospital Encounter Department of Summer Pérez P.A.-C., M.S. [address] [place] [phone] Malignant Neoplasm Of Radiation Oncology Ryanne Mcbride, JUANITO [address] [place] [address] Supraglottic (HCC) in [place], [place] [address] [place] [address] Social History Tobacco Use Types [...] do you attend hinduism or Never 2018 yazidism services? Do you [...] Met with patient, her son and 2 [id number]. Patient is hard of hearing and reads lips. For phone contact Merlin (son) states, his Darlin is the one to call, . ?? ASSESSMENT Relevant Social and Family History She lives in [place], [place]??with her son Merlin and his Darlin.?During the week while undergoing treatment lives in [place] with a different son.??She is .?She has [...] tube placed by GI 04/17/19 LEONARDO 20 Burmese balloon gastrostomy, ENFit connector ?? Food/Nutrient Related [...] Nutren 1.5 given over 10 minutes in [place] before discharge, and another 1/2 carton at [...] that will provide needed supplies for home: [employer] . They delivered supplies 04/18/19. ?? Indication [...] Radiology Mark Eastman M.D., M.S. [address] [place] [address] 04/26/2022 Office Visit Otorhinolaryngology Roxanne Lanza, CHIEF OPERATING OFFICER, C.N.P. [address] [place] [phone] 04/28/2022 Appointment Radiation Oncology Ursula Aguirre M.D. [address] [place] [address] Scheduled Referrals Name Type Priority Associated Diagnoses Order S chedule Nutrition - Outpatient Referral Routine Malignant Neoplasm On ce for 1 Medical nutrition Of Supraglottic Occurre nces therapy consult (HCC) starting 12/2018 (clinic) until 9 documented as of this encounter Visit Diagnoses Diagnosis Malignant Neoplasm Of Supraglottic (HCC) documented in this encounter
--- OUTSIDE RECORDS SUMMARY | 2022-04-05 09:25 | XMS_ITS | Encounter Summary ---
:1955 Author Organization [facility] Address [address] [place] [address] Care Team Providers Name Role Phone Unavailable Primary Care Provider Unavailable Reason for Visit Radiation Therapy (Routine) - Closed Specialty Diagnoses / Procedures Referred By Contact Refer red To Contact Diagnoses Malignant Neoplasm Of Supraglottic (HCC) Ursula Aguirre M.D. [facility] Procedures Prior Auth Rad Tx [place] IMRT COMPLEX [address] [place] [phone] Referral ID Status Reason Start Date Expiration Date Visits Requ ested Visits Authorized [id number] Closed 03/15/2019 03/14/2020 35 35 Encounter Details Date Type Department Care Team Description 04/19/2019 Hospital Encounter Department of Radiation Bud Aguirre I., [place] 200 [address] [facility] [address] [place] [phone] Social History Tobacco Use Types Packs/Day Years [...] do you attend moravian or Never 2018 jainism services? Do you [...] Appointment Radiology Mark Eastman M.D., M.S. [address] [place] [phone] 04/26/2022 Office Visit Otorhinolaryngology Roxanne Lanza APRN, C.N.P. [address] [place] [phone] 04/28/2022 Appointment Radiation Oncology Ursula Aguirre M.D. [address] [place] [phone] documented as of this encounter Visit Diagnoses Not on filedocumented in this encounter
--- OUTSIDE RECORDS SUMMARY | 2022-04-05 09:25 | XMS_ITS | Encounter Summary ---
:1955 Author Organization [facility] Address [address] [place] [address] Care Team Providers Name Role Phone Unavailable Primary Care Provider Unavailable Reason for Visit Outpatient (Routine) - Closed Specialty Diagnoses / Procedures Referred By Contact Refer red To Contact Nutrition Diagnoses Home Enteral Nutrition Padma Vieira APRN, [facility] C.N.P., M.S. [address] [place] [phone] Referral ID Status Reason Start Date Expiration Date Visits Requ ested Visits Authorized [id number] Closed 04/11/2019 04/10/2020 1 1 Encounter Details Date Type Department Care Team Description 04/18/2019 Clinical Support Department of Chapin Vieira APRN, C.N.P., M.S. [address] [place] [phone] Home Enteral Nutrition in Emy Kuhn RDN, LD [address] [place] [phone] Nutrition [place], [place] [address] [place] [phone] Social History Tobacco Use Types Packs/Day Years [...] do you attend temple or Never 2018 latter-day services? 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 They delivered supplies today. Indication for [...] Patient is followed in [facility]: follow-up plan is contact per protocol. Time spent with patient (minutes): 60 documented in this encounter Plan of Treatment Upcoming Encounters Date Type Specialty Care Team Description 04/22/2022 Clinical Admitting/Central Communication Scheduling 04/26/2022 Appointment Radiology Mark Eastman M.D., M.S. [address] [place] [phone] 04/26/2022 Office Visit Otorhinolaryngology Roxanne Lanza, POWER DISTRIBUTOR, C.N.P. [address] [place] [phone] 04/28/2022 Appointment Radiation Oncology Ursula Aguirre M.D. [address] [place] [phone] documented as of this encounter Visit Diagnoses Diagnosis Home Enteral Nutrition documented in this encounter
--- OUTSIDE RECORDS SUMMARY | 2022-04-05 09:25 | XMS_ITS | Encounter Summary ---
:1955 Author Organization [facility] Address [address] [place] [address] Care Team Providers Name Role Phone Unavailable Primary Care Provider Unavailable Encounter Details Date Type Department Care Team Description 04/17/2019 Documentation Division of Gastroenterology Lorenza Henderson, in [facility] guillaume Duff [address] [facility] [phone] [place] [address] (Work) [phone] Social History Tobacco Use Types Packs/Day Years [...] do you attend holiness or Never 2018 yarsani services? Do you [...] Narayan Department : DIVISION OF GASTROENTEROLOGY IN [place], [place] SUBJECTIVE Past Medical History: Diagnosis Date [...] week Gets together: Once a week Attends yarsani service: Never Active member of club or [...] on file OBJECTIVE Procedure Patient presents to [facility] Patient being seen for: PEG (Solitario [...] Reading and Seeing Education: PEG/PEJ Wallet Card ([id number]) Supplies sent with patient: None T Fasteners located at 0900, 1000, and 1600. Skin disc kept slightly tighter than normal per Dr. Dodd. documented in this encounter Plan of Treatment Upcoming Encounters Date Type Specialty Care Team Description 04/22/2022 Clinical Admitting/Central Communication Scheduling 04/26/2022 Appointment Radiology Mark Eastman M.D., M.S. [address] [place] [phone] 04/26/2022 Office Visit Otorhinolaryngology Roxanne Lanza, SAND PLANT ATTENDANT, C.N.P. [address] [place] [phone] 04/28/2022 Appointment Radiation Oncology Ursula Aguirre M.D. [address] [place] [phone] documented as of this encounter Visit Diagnoses Not on filedocumented in this encounter
--- OUTSIDE RECORDS SUMMARY | 2022-04-05 09:25 | XMS_ITS | Encounter Summary ---
:1955 Author Organization [facility] Address [address] [place] [address] Care Team Providers Name Role Phone Unavailable Primary Care Provider Unavailable Reason for Referral Outpatient (Routine) - Canceled Specialty Diagnoses / Procedures Referred By Contact Refer red To Contact Radiation Oncology Diagnoses Malignant Neoplasm Of Supraglottic (HCC) Ursula Aguirre [facility] [place] [facility] M.D. 200 [place] [address] Referral ID Status Reason Start Date Expiration Date Visits V isits Requested Authorized [id number] Canceled 03/15/2019 03/14/2020 1 1 Reason for Visit Outpatient (Routine) - Canceled Specialty Diagnoses / Procedures Referred By Contact Refer red To Contact Radiation Oncology Diagnoses Malignant Neoplasm Of Supraglottic (HCC) Ursula Aguirre [facility] [place] [facility] M.D. 200 [place] [address] Referral ID Status Reason Start Date Expiration Date Visits V isits Requested Authorized [id number] Canceled 03/15/2019 03/14/2020 1 1 Encounter Details Date Type Department Care Team Description 04/23/2019 Hospital Encounter Department of Mary Aguirre M.D. [address] [place] [phone] Malignant Neoplasm Of Radiation Oncology Jannet Cross R.N. 200 [place] [address] Supraglottic (HCC) in [place], [place] [address] [place] [address] Social History Tobacco Use Types Packs/Day Years [...] do you attend congregation or Never 2018 shinto services? Do you [...] Radiology Mark Eastman M.D., M.S. [address] [place] [phone] 04/26/2022 Office Visit Otorhinolaryngology Roxanne Lanaz, SPLITTER OPERATOR, C.N.P. [address] [place] [phone] 04/28/2022 Appointment Radiation Oncology Ursula Aguirre M.D. [address] [place] [phone] Scheduled Referrals Name Type Priority Associated Diagnoses Order S chedule Radiation Oncology Outpatient Referral Routine Malignant Neopl asm Once for 1 nurse visit Of Supraglottic Occurrences (clinic) (HCC) starting 2018 until 9 documented as of this encounter Visit Diagnoses Diagnosis Malignant Neoplasm Of Supraglottic (HCC) documented in this encounter
--- OUTSIDE RECORDS SUMMARY | 2022-04-05 09:25 | XMS_ITS | Encounter Summary ---
:1955 Author Organization [facility] Address [address] [place] [address] Care Team Providers Name Role Phone Unavailable Primary Care Provider Unavailable Reason for Visit Auth/Cert Specialty Diagnoses / Procedures Referred By Contact Refer red To Contact Diagnoses Malignant Neoplasm Of Supraglottic (HCC) Procedures EGD ? PERCUTANEOUS ENDOSCOPIC GASTROSTOMY/JEJUNOSTOMY Referral ID Status Reason Start Date Expiration Date Visits Requ ested Visits Authorized [id number] 1 1 Encounter Details Date Type Department Care Team Description 04/17/2019 Anesthesia Event Division of Gastroenterology Anisa Woods in [facility] guillaume Serna, APPLICATION SECURITY CONSULTANT, GUIDE EXCURSION, [address] [place], [place] [phone] [address] [facility] [phone] [place] [phone] Anesthesia Record Procedure Summary Procedure Name Responsible Anesthesia Start Anesthesia Stop Anesthesiologist Time Time EGD ? Anisa Woods APRN, 04/17/19 1558 04/17/19 1742 PERCUTANEOUS GUIDE EXCURSION, [facility] ENDOSCOPIC GASTROSTOMY/JEJUNOSTOM Y Events Date Time [...] h andoff to the receiving staff during [facility] ch we 1. Identified the patient 2. [...] Kimberley Bruce, Dm Serna, (created via procedure APPLICATION SECURITY CONSULTANTLEON A, MNA documentation); Mask Ventilation: Not attempted; [...] you attend jehovah's witness or Never 2018 latter-day services? 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 Risks/Benefits/Alternatives of Blood transfusion discussed with patient [...] Radiology Mark Eastman M.D., M.S. [address] [place] [phone] 04/26/2022 Office Visit Otorhinolaryngology Roxanne Lanza APRN, C.N.P. [address] [place] [phone] 04/28/2022 Appointment Radiation Oncology Ursula Aguirre M.D. 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 Worsening dysphonia over past 2 [...]
--- OUTSIDE RECORDS SUMMARY | 2022-04-05 09:25 | XMS_ITS | Encounter Summary ---
:1955 Author Organization [facility] Address [address] [place] [address] Care Team Providers Name Role Phone Unavailable Primary Care Provider Unavailable Reason for Visit Radiation Therapy (Routine) - Closed Specialty Diagnoses / Procedures Referred By Contact Refer red To Contact Diagnoses Malignant Neoplasm Of Supraglottic (HCC) Ursula Aguirre M.D. [facility] Procedures Prior Auth Rad Tx [place] IMRT COMPLEX [address] [place] [phone] Referral ID Status Reason Start Date Expiration Date Visits Requ ested Visits Authorized [id number] Closed 03/15/2019 03/14/2020 35 35 Encounter Details Date Type Department Care Team Description 04/19/2019 Hospital Encounter Department of Radiation Bud Aguirre I., [place] [address] [facility] [address] [place] [phone] Social History Tobacco Use Types Packs/Day Years [...] do you attend confucianist or Never 2018 hoahaoism services? Do you [...] Radiology Mark Eastman M.D., M.S. [address] [place] [phone] 04/26/2022 Office Visit Otorhinolaryngology Roxanne Lanza APRN, C.N.P. [address] [place] [phone] 04/28/2022 Appointment Radiation Oncology Ursula Aguirre M.D. [address] [place] [phone] documented as of this encounter Visit Diagnoses Not on filedocumented in this encounter
--- OUTSIDE RECORDS SUMMARY | 2022-04-05 09:25 | XMS_ITS | Encounter Summary ---
:1955 Author Organization [facility] Address [address] [place] [address] Care Team Providers Name Role Phone Unavailable Primary Care Provider Unavailable Encounter Details Date Type Department Care Team Description 04/20/2019 Orders Only Division of Estrada Castellanos [facility] Endocrinology in Lara José APRN, Nutritio n (Primary [place], [place] C.N.P. Dx) [address] [facility] [address] [place] [address] [place], [place] [phone] Social History Tobacco Use Types Packs/Day Years [...] do you attend anabaptism or Never 2018 baptism services? Do you [...] Radiology Mark Eastman M.D., M.S. [address] [place] [phone] 04/26/2022 Office Visit Otorhinolaryngology Roxanne Lanza, NAVAL AIRCREWMAN TACTICAL HELICOPTER, C.N.P. [address] [place] [phone] 04/28/2022 Appointment Radiation Oncology Ursula Aguirre M.D. [address] [place] [address], [place] [phone] documented as of this encounter Results Potassium [...] Organization Address City/State/ZIP Code Phon e Number [facility] [address] [place] [address] LAB Phosphorus Inorganic (04/23/2019 9:42 AM CDT) athologist Signature Phosphorus 3.2 2.5 - 4.5 04/23/2019 (Inorganic), S mg/dL 4:17 PM CDT Specimen Anatomical Collection Method Collection Time Receive d Time (Source) Location / / Volume Laterality Blood (Blood, 04/23/2019 9:42 AM 04/23/20 19 4:04 Venous) CDT PM CDT Lara Castellanos APRN, C.N.P. LAB BLOOD ADD-ON Performing Organization Address City/State/ZIP Code Phon e Number [facility] [address] [place] [address] [place] LAB Magnesium (04/23/2019 9:42 AM CDT) athologist Signature Magnesium, S 2.0 1.7 - 2.3 04/23/2019 mg/dL 1:58 PM CDT Specimen Anatomical Collection Method Collection Time Receive d Time (Source) Location / / Volume Laterality Blood (Blood, 04/23/2019 9:42 AM 04/23/20 19 1:12 Venous) CDT PM CDT Lara Castellanos APRN, C.N.P. LAB BLOOD ADD-ON Performing Organization Address City/State/ZIP Code Phon e Number [facility] [address] [place] [address] LAB documented in this encounter Visit Diagnoses Diagnosis Home Enteral Nutrition - Primary documented in this encounter
--- OUTSIDE RECORDS SUMMARY | 2022-04-05 09:25 | XMS_ITS | Encounter Summary ---
:1955 Author Organization [facility] Address [address] [place] [address] Care Team Providers Name Role Phone Unavailable [...] do you attend jew or Never 2018 advent services? Do you [...] minutes do you engage in exercise at [facility] 0 min 02/21/2019 level? Stress Answer Date [...] Radiology Mark Eastman M.D., M.S. [address] [place] [phone] 04/26/2022 Office Visit Otorhinolaryngology Roxanne Lanza APRN, C.N.P. [address] [place] [phone] 04/28/2022 Appointment Radiation Oncology Ursula Aguirre M.D. [address] [place] [phone] documented as of this encounter Procedures Procedure [...]
--- OUTSIDE RECORDS SUMMARY | 2022-04-05 09:25 | XMS_ITS | Encounter Summary ---
:1955 Author Organization [facility] Address [address] [place] [address] Care Team Providers Name Role Phone Unavailable Primary Care Provider Unavailable Reason for Referral Radiation Therapy (Routine) - Canceled Specialty Diagnoses / Procedures Referred By Contact Refer red To Contact Diagnoses Malignant Neoplasm Of Supraglottic (HCC) Ursula Aguirre M.D. [facility] Procedures Management Visit [address] [place] [phone] Referral ID Status Reason Start Date Expiration Date Visits V isits Requested Authorized [id number] Canceled 04/09/2019 04/08/2020 10 10 Reason for Visit Radiation Therapy (Routine) - Canceled Specialty Diagnoses / Procedures Referred By Contact Refer red To Contact Diagnoses Malignant Neoplasm Of Supraglottic (HCC) Ursula Aguirre M.D. [facility] Region Procedures Management Visit [address] [place] [phone] Referral ID Status Reason Start Date Expiration Date Visits V isits Requested Authorized [id number] Canceled 04/09/2019 04/08/2020 10 10 Encounter Details Date Type Department Care Team Description 04/18/2019 Hospital Encounter Department of Ursula Aguirre Neoplasm Of Radiation Oncology Kimberley Bacon Supraglottic (HCC) in [place], [address] [place], [place] [address] [facility] [address] [place], [place] [phone] (Work) [phone] Social History Tobacco Use Types Packs/Day Years [...] do you attend holiness or Never 2018 alevism services? Do you [...] Radiology Mark Eastman M.D., M.S. [address] [place] [phone] 04/26/2022 Office Visit Otorhinolaryngology Roxanne Lanza APRN, C.N.P. [address] [place] [phone] 04/28/2022 Appointment Radiation Oncology Ursula Aguirre M.D. [address] [place] [phone] Scheduled Orders Name Type Priority Associated Diagnoses Order S chedule Management Visit Radiation Oncology Routine Malignant Neoplasm Of Once for 1 Supraglottic (HCC) Occurrenc es starting 04/18/2019 unti l 04/18/2019 documented as of this encounter Visit Diagnoses Diagnosis Malignant Neoplasm Of Supraglottic (HCC) documented in this encounter
--- OUTSIDE RECORDS SUMMARY | 2022-04-05 09:25 | XMS_ITS | Encounter Summary ---
:1955 Author Organization [facility] Address [address] [place] [address] Care Team Providers Name Role Phone Unavailable Primary Care Provider Unavailable Reason for Visit Reason Comments Outpatient Infusion Encounter Details Date Type Department Care Team Description 04/19/2019 Infusion Department of Infusion Lara Castellanos Malignant Neoplasm Of Therapy in [place], , DIE TROUBLE SHOOTER, C .N.P. Supraglottic (HCC) [address] (Primary Dx) [address] [place] [phone] [phone] Social History Tobacco Use Types Packs/Day Years [...] do you attend sabianist or Never 2018 orthodox services? Do you [...] Radiology Mark Eastman M.D., M.S. [address] [place] [phone] 04/26/2022 Office Visit Otorhinolaryngology Roxanne Lanza APRN, C.N.P. [address] [place] [phone] 04/28/2022 Appointment Radiation Oncology Ursula Aguirre M.D. [address] [place] [phone] documented as of this encounter Procedures Procedure [...] C.N.P. LAB BLOOD ADD-ON Performing Organization Address City/[facility]/RUST Code Phon e Number [facility] - [address] [place] [address] [facility] Phosphorus Inorganic (04/19/2019 7:02 PM CDT) athologist Signature Phosphorus 3.5 2.5 - 4.5 04/19/2019 (Inorganic), S mg/dL 8:18 PM CDT Specimen Anatomical Collection Method Collection Time Receive d Time (Source) Location / / Volume Laterality Blood (Blood, 04/19/2019 7:02 PM 04/19/20 19 7:09 Venous) CDT PM CDT Lara Castellanos APRN, C.N.P. LAB BLOOD ADD-ON Performing Organization Address City/[facility]UST Code Phon e Number [facility] - [address] [place] [address] [facility] Potassium (04/19/2019 7:02 PM CDT) P athologist Signature Potassium, S 4.8 3.6 - 5.2 04/19/2019 mmol/L 8:18 PM CDT Specimen Anatomical Collection Method Collection Time Receive d Time (Source) Location / / Volume Laterality Blood (Blood, 04/19/2019 7:02 PM 04/19/20 7:09 Venous) CDT PM CDT Teresa Patel APRNNShitalPShital LAB BLOOD ADD-ON Performing Organization Address City/State/ZIP Code Phon e Number [facility] - [address] [place], [place] [address] [facility] documented in this encounter Visit Diagnoses [...] daily x 3 days, 04/17-04/19. 04/17-04/18 in [facility], 04/19 in [facility]. documented in this encounter
--- OUTSIDE RECORDS SUMMARY | 2022-04-05 09:25 | XMS_ITS | Encounter Summary ---
:[address] [facility] Address [address] [place] [address] Care Team Providers Name Role Phone Unavailable Primary Care Provider Unavailable Reason for Visit Reason Comments Feeding Tube Encounter Details Date Type Department Care Team Description 04/18/2019 Clinical Support Division of Chapin Vieira APRN, C.N.P., M.S. [address] [place] [phone] [facility]N. [address] [place] [phone] Nutrition [place], [place] [address] [place] [phone] Social History Tobacco Use Types Packs/Day Years [...] do you attend worship or Never 2018 anabaptist services? Do you [...] PEG tube Tube size: 20 Tube brand: [employer] Tube reference number: [id number] Connector type: Small [...] replacement: NA Special order tube: GI/IR supply assistant notified? NA PLAN Were procedural instructions given? No Is there a procedure scheduled? None Is a return visit needed? As needed *Patient able to do site care and [id number] Darlin assisted with rotation, as patient had trouble with that part. documented in this encounter Plan of Treatment Upcoming Encounters Date Type Specialty Care Team Description 04/22/2022 Clinical Admitting/Central Communication Scheduling 04/26/2022 Appointment Radiology Mark Eastman M.D., M.S. [address] [place] [phone] 04/26/2022 Office Visit Otorhinolaryngology Roxanne Lanza APRN, C.N.P. [address] [place] [phone] 04/28/2022 Appointment Radiation Oncology Ursula Aguirre M.D. [address] [place] [phone] documented as of this encounter Visit Diagnoses Diagnosis Home Enteral Nutrition documented in this encounter"
--- OUTSIDE RECORDS SUMMARY | 2022-04-05 09:25 | XMS_ITS | Encounter Summary ---
:1955 Author Organization [facility] Address [address] [place] [address] Care Team Providers Name Role Phone Unavailable Primary Care Provider Unavailable Encounter Details Date Type Department Care Team Description 04/18/2019 Orders Only Department of Emy Kuhn Malignan t Neoplasm Of Supraglottic (HCC) (Primary Dx); Nutrition in RDN, LD Gastrostomy Status (HCC); [place], [place] 200 [facility] Dysphagia Oropharyngeal Phase 200 [place] [phone] Social History Tobacco Use Types Packs/Day Years [...] do you attend baptist or Never 2018 rastafari services? Do you [...] Radiology Mark Eastman M.D., M.S. [address] [place] [phone] 04/26/2022 Office Visit Otorhinolaryngology Roxanne Lanza APRN, C.N.P. [address] [place] [phone] 04/28/2022 Appointment Radiation Oncology Ursula Aguirre M.D. [address] [place] [phone] documented as of this encounter Visit Diagnoses Diagnosis Malignant Neoplasm Of Supraglottic (HCC) - Primary Gastrostomy Status (HCC) Dysphagia Oropharyngeal Phase documented in this encounter
--- OUTSIDE RECORDS SUMMARY | 2022-04-05 09:25 | XMS_ITS | Encounter Summary ---
:1955 Author Organization [facility] Address [address] [place] [address] Care Team Providers Name Role Phone Unavailable Primary Care Provider Unavailable Encounter Details Date Type Department Care Team Description 04/23/2019 Hospital Encounter Department of [facility] Laboratory Medicine Lara José APRN, Nutri tion in [facility] [address] [facility] [address] [place] [phone] Social History Tobacco Use Types Packs/Day Years [...] times do you More than three josé migule es a week 02/21/2019 talk on the phone with family, friends, or neighbors? How often do you get together with friends Once a week 02/21/2019 or relatives? How often do you attend mandaen or Never 2018 confucianist services? Do you belong to any clubs or No 02/21/2019 organizations such as mandaen groups, unions, fraternal or athletic groups, or [...] Radiology Mark Eastman M.D., M.S. [address] [place] [phone] 04/26/2022 Office Visit Otorhinolaryngology Roxanne Lanza APRN, C.N.P. [address] [place] [phone] 04/28/2022 Appointment Radiation Oncology Ursula Aguirre M.D. [address] [place] [phone] documented as of this encounter Procedures Procedure [...] Organization Address City/State/ZIP Code Phon e Number [facility] [address] [place] [address] LAB Phosphorus Inorganic (04/23/2019 9:42 AM CDT) athologist Signature Phosphorus 3.2 2.5 - 4.5 04/23/2019 (Inorganic), S mg/dL 4:17 PM CDT Specimen Anatomical Collection Method Collection Time Receive d Time (Source) Location / / Volume Laterality Blood (Blood, 04/23/2019 9:42 AM 04/23/20 19 4:04 Venous) CDT PM CDT Lara Castellanos APRN, Estefanía.N.P. LAB BLOOD ADD-ON Performing Organization Address City/State/ZIP Code Phon e Number [facility]- [address] [place] [address] [place] LAB Magnesium (04/23/2019 9:42 AM CDT) athologist Signature Magnesium, S 2.0 1.7 - 2.3 04/23/2019 mg/dL 1:58 PM CDT Specimen Anatomical Collection Method Collection Time Receive d Time (Source) Location / / Volume Laterality Blood (Blood, 04/23/2019 9:42 AM 04/23/20 19 1:12 Venous) CDT PM CDT Estefanía Patel APRN.N.P. LAB BLOOD ADD-ON Performing Organization Address City/State/ZIP Code Phon e Number [facility] [address] [place] [address] LAB documented in this encounter Visit Diagnoses Diagnosis Home Enteral Nutrition documented in this encounter
--- OUTSIDE RECORDS SUMMARY | 2022-04-05 09:25 | XMS_ITS | Encounter Summary ---
:1955 Author Organization [facility] Address [address] [place] [address] Care Team Providers Name Role Phone Unavailable Primary Care Provider Unavailable Encounter Details Date Type Department Care Team Description 04/20/2019 Hospital Encounter Department of Peter Castellanos Neoplasm Of Laboratory Medicine Lara José APRN, Supra glottic (HCC) in [facility] [address] [facility] [address] [place] [phone] Social History Tobacco Use Types Packs/Day Years [...] do you attend yazidism or Never 2018 mandaeism services? Do you [...] Radiology Mark Eastman M.D., M.S. [address] [place] [phone] 04/26/2022 Office Visit Otorhinolaryngology Roxanne Lanza, COMMUNITY RELATIONS MANAGER, C.N.P. [address] [place] [phone] 04/28/2022 Appointment Radiation Oncology Ursula Aguirre M.D. [address] [place] [phone] documented as of this encounter Procedures Procedure [...] Address City/State/ZIP Code Phon e Number [facility] [address] [place] [address] LAB Phosphorus Inorganic (04/20/2019 9:03 AM CDT) athologist Signature Phosphorus 3.3 2.5 - 4.5 04/20/2019 (Inorganic), S mg/dL 10:12 PM CDT Specimen Anatomical Collection Method Collection Time Receive d Time (Source) Location / / Volume Laterality Blood (Blood, 04/20/2019 9:03 AM 04/20/20 19 9:37 Venous) CDT PM CDT Lara Castellanos APRN, C.N.P. LAB BLOOD ADD-ON Performing Organization Address City/State/ZIP Code Phon e Number [facility]- [address] [place] [address] [place] LAB Potassium (04/20/2019 9:03 AM CDT) athologist Signature Potassium, S 4.2 3.6 - 5.2 04/20/2019 mmol/L 10:19 AM CDT Specimen Anatomical Collection Method Collection Time Receive d Time (Source) Location / / Volume Laterality Blood (Blood, 04/20/2019 9:03 AM 04/20/20 19 9:11 Venous) CDT AM CDT Lara Castellanos APRN, C.N.P. LAB BLOOD ADD-ON Performing Organization Address City/State/ZIP Code Phon e Number [facility] [address] [place] [address] LAB documented in this encounter Visit Diagnoses Diagnosis Malignant Neoplasm Of Supraglottic (HCC) documented in this encounter
--- OUTSIDE RECORDS SUMMARY | 2022-04-05 09:25 | XMS_ITS | Encounter Summary ---
:[address] [facility] Address [address] [place] [address] Care Team Providers Name Role Phone Unavailable Primary Care Provider Unavailable Reason for Visit Reason Onset Date Comments Feeding Tube 04/20/2019 Encounter Details Date Type Department Care Team Description 04/20/2019 Clinical Communication Division of Padma Vieira Feeding Tube Endocrinology in [place], AMAYA, C.N.P.[facility] [address] [place] [address] [place] [phone] Social History Tobacco Use Types Packs/Day Years [...] do you attend tenriism or Never 2018 confucianism services? Do you [...] Radiology Mark Eastman M.D., M.S. [address] [place] [phone] 04/26/2022 Office Visit Otorhinolaryngology Roxanne Lanza, CELL PHONE REPAIR TECHNICIAN, C.N.P. [address] [place] [phone] 04/28/2022 Appointment Radiation Oncology Ursula Aguirre M.D. [address] [place] [phone] documented as of this encounter Visit Diagnoses Not on filedocumented in this encounter
--- OUTSIDE RECORDS SUMMARY | 2022-04-05 09:25 | XMS_ITS | Encounter Summary ---
:[address] [facility] Address [address] [place] [address] Care Team Providers Name Role Phone Unavailable Primary Care Provider Unavailable Reason for Referral Radiation Therapy (Routine) - Canceled Specialty Diagnoses / Procedures Referred By Contact Refer red To Contact Diagnoses Malignant Neoplasm Of Supraglottic (HCC) Ursula Aguirre M.D. [facility] Procedures Management Visit [address] [place] [phone] Referral ID Status Reason Start Date Expiration Date Visits V isits Requested Authorized [id number] Canceled 04/09/2019 04/08/2020 10 10 Reason for Visit Radiation Therapy (Routine) - Canceled Specialty Diagnoses / Procedures Referred By Contact Refer red To Contact Diagnoses Malignant Neoplasm Of Supraglottic (HCC) Ursula Aguirre M.D. [facility] Region Procedures Management Visit [address] [place] [phone] Referral ID Status Reason Start Date Expiration Date Visits V isits Requested Authorized [id number] Canceled 04/09/2019 04/08/2020 10 10 Encounter Details Date Type Department Care Team Description 04/23/2019 Hospital Encounter Department of Ursula Aguirre Neoplasm Of Radiation Oncology Kimberley Bacon Supraglottic (HCC) in [place], [address] [place], [place] [address] [facility] [address] [place], [place] [phone] (Work) [phone] Social History Tobacco Use Types Packs/Day Years [...] do you attend baptism or Never 2018 mandaeism services? Do you [...] gum potassium chloride Daily 0 04/21/20182021 (KLOR-CON M/KDLACEY) 20 mEq ER tablet raNITIdine (ZANTAC) 150 [...] Radiology Mark Eastman M.D., M.S. [address] [place] [phone] 04/26/2022 Office Visit Otorhinolaryngology Roxanne Lanza, MILITARY NURSE, C.N.P. [address] [place] [phone] 04/28/2022 Appointment Radiation Oncology Ursula Aguirre M.D. [address] [place] [phone] Scheduled Orders Name Type Priority Associated Diagnoses Order S chedule Management Visit Radiation Oncology Routine Malignant Neoplasm Of Once for 1 Supraglottic (HCC) Occurrenc es starting 04/23/2019 unti l 04/23/2019 documented as of this encounter Visit Diagnoses Diagnosis Malignant Neoplasm Of Supraglottic (HCC) documented in this encounter
--- OUTSIDE RECORDS SUMMARY | 2022-04-05 09:25 | XMS_ITS | Encounter Summary ---
:1955 Author Organization [facility] Address [address] [place] [address] Care Team Providers Name Role Phone Unavailable Primary Care Provider Unavailable Reason for Visit Radiation Therapy (Routine) - Closed Specialty Diagnoses / Procedures Referred By Contact Refer red To Contact Diagnoses Malignant Neoplasm Of Supraglottic (HCC) Ursula Aguirre M.D. [facility] Procedures Prior Auth Rad Tx [place] IMRT COMPLEX [address] [place] [phone] Referral ID Status Reason Start Date Expiration Date Visits Requ ested Visits Authorized [id number] Closed 03/15/2019 03/14/2020 35 35 Encounter Details Date Type Department Care Team Description 04/18/2019 Hospital Encounter Department of Radiation Bud Aguirre I., [place] [address] [facility] [address] [place] [phone] Social History Tobacco Use Types Packs/Day Years [...] do you attend tenriism or Never 2018 jain services? Do you [...] Radiology Mark Eastman M.D., M.S. [address] [place] [phone] 04/26/2022 Office Visit Otorhinolaryngology Roxanne Lanza APRN, C.N.P. [address] [place] [phone] 04/28/2022 Appointment Radiation Oncology Ursula Aguirre M.D. [address] [place] [phone] documented as of this encounter Visit Diagnoses Not on filedocumented in this encounter
--- OUTSIDE RECORDS SUMMARY | 2022-04-05 09:25 | XMS_ITS | Encounter Summary ---
:1955 Author Organization [facility] Address [address] [place] [address] Care Team Providers Name Role Phone Unavailable Primary Care Provider Unavailable Reason for Visit Reason Comments Outpatient Infusion thiamine Encounter Details Date Type Department Care Team Description 04/18/2019 Infusion Department of Infusion Lara Castellanos Malignant Neoplasm Of Therapy in [facility], ASSOCIATE PRODUCT MANAGER, C .N.P. Supraglottic (HCC) [address] (Primary Dx) [address] [place] [phone] Social History Tobacco Use Types Packs/Day Years [...] you attend jehovah's witness or Never 2018 lutheran services? Do you [...] Radiology Mark Eastman M.D., M.S. [address] [place] [address] [place] [phone] 04/26/2022 Office Visit Otorhinolaryngology Roxanne Lanza APRN, C.N.P. [address] [place] [phone] 04/28/2022 Appointment Radiation Oncology Ursula Aguirre M.D. [address] [place] [phone] documented as of this encounter Visit Diagnoses [...] daily x 3 days, 04/17-04/19. 04/17-04/18 in [facility], 04/19 in [facility]. documented in this encounter
--- OUTSIDE RECORDS SUMMARY | 2022-04-05 09:26 | XMS_ITS | Encounter Summary ---
:1955 Author Organization [facility] Address [address] [place] [address] Care Team Providers Name Role Phone Unavailable Primary Care Provider Unavailable Reason for Visit Radiation Therapy (Routine) - Closed Specialty Diagnoses / Procedures Referred By Contact Refer red To Contact Diagnoses Malignant Neoplasm Of Supraglottic (HCC) Ursula Aguirre M.D. [facility] Procedures Prior Auth Rad Tx [place] IMRT COMPLEX [address] [place] [phone] Referral ID Status Reason Start Date Expiration Date Visits Requ ested Visits Authorized [id number] Closed 03/15/2019 03/14/2020 35 35 Encounter Details Date Type Department Care Team Description 04/13/2019 Hospital Encounter Department of Radiation Bud Aguirre I., [place] [address] [facility] 1821 [place] [phone] Social History Tobacco Use Types Packs/Day Years [...] you attend oriental orthodox or Never 2018 latter-day services? Do you [...] Radiology Mark Eastman M.D., M.S. [address] [place] [phone] 04/26/2022 Office Visit Otorhinolaryngology Roxanne Lanza APRN, C.N.P. [address] [place] [phone] 04/28/2022 Appointment Radiation Oncology Ursula Aguirre M.D. [address] [place] [phone] documented as of this encounter Visit Diagnoses Not on filedocumented in this encounter
--- OUTSIDE RECORDS SUMMARY | 2022-04-05 09:26 | XMS_ITS | Encounter Summary ---
:1955 Author Organization [facility] Address [address] [place] [address] Care Team Providers Name Role Phone Unavailable Primary Care Provider Unavailable Reason for Referral Outpatient (Routine) - Closed Specialty Diagnoses / Procedures Referred By Contact Refer red To Contact Diagnoses Malignant Neoplasm Of Supraglottic (HCC) Dehydration Jose Schultz M.D. [facility] [address] [place] [address] [phone] Referral ID Status Reason Start Date Expiration Visits Visits Date Requested Authorized [id number] Closed Patient 04/11/2019 04/10/2020 1 1 Preference Medication Prior Authorization (Routine) - Authorized Specialty Diagnoses / Procedures Referred By Contact Refer red To Contact Jose Schultz M .D. [address] [place] [phone] Referral ID Status Reason Start Date Expiration Date Visits V isits Requested Authorized [id number] Authorized 01/10/2019 04/12/2020 Outpatient (Routine) - Closed Specialty Diagnoses / Procedures Referred By Contact Tyler agarwal To Contact Endocrinology Diagnoses Malignant Neoplasm Of Supraglottic (HCC) Summer Pérez P.A.-C., [facility] [address] [place] [phone] Referral ID Status Reason Start Date Expiration Date Visits Requ ested Visits Authorized [id number] Closed 04/11/2019 04/10/2020 1 1 Outpatient (Routine) - Closed Specialty Diagnoses / Procedures Referred By Contact Refer red To Contact Diagnoses Malignant Neoplasm Of Supraglottic (HCC) Summer Pérez P.A.-C., [facility] ion Procedures Percutaneous Endoscopic Gastrostomy M.S. [address] [place] [phone] Referral ID Status Reason Start Date Expiration Date Visits Requ ested Visits Authorized [id number] Closed 04/11/2019 04/10/2020 1 1 Radiation Therapy (Routine) - Canceled Specialty Diagnoses / Procedures Referred By Contact Refer red To Contact Diagnoses Malignant Neoplasm Of Supraglottic (HCC) Ursula Aguirre M.D. [facility] Procedures Management Visit [address] [place] [address] Referral ID Status Reason Start Date Expiration Date Visits V isits Requested Authorized [id number] Canceled 03/15/2019 03/14/2020 1 1 Reason for Visit Radiation Therapy (Routine) - Canceled Specialty Diagnoses / Procedures Referred By Contact Refer red To Contact Diagnoses Malignant Neoplasm Of Supraglottic (HCC) Ursula Aguirre M.D. [facility] Region Procedures Management Visit [address] [place] [phone] Referral ID Status Reason Start Date Expiration Date Visits V isits Requested Authorized [id number] Canceled 03/15/2019 03/14/2020 1 1 Encounter Details Date Type Department Care Team Description 04/11/2019 Hospital Encounter Department of Mary Aguirre M.D. 200 [place] [phone] Dehydration (Primary Dx); Radiation Oncology Jose Schultz M.D. 200 [place] [phone] Malignant Neoplasm Of Supraglottic (HCC) in [place], [place] [address] [place] [address] Social History Tobacco Use Types [...] do you attend taoism or Never 2018 pentecostalism services? Do you [...] that patient have feeding tube placement in [place] as soon as possible and this has been ordered. Patient is orthostatic and 1 L of 0.9 NS has been ordered byron administered at [facility] today and after 1 L if patient is still orthostatic thenshe will receive a 2nd liter. Our care team has also placed an as needed daily IV fluid order starting tomorrow and going through this coming Tuesday. Over the weekend patient can receive IV fluids as needed at the [facility] Emergency Room and this has been [...] by: Jose Schultz M.D. 04/11/2019 5:13 PM [facility] [address] [place] [address] documented in this encounter Plan of Treatment Upcoming Encounters Date Type Specialty Care Team Description 04/22/2022 Clinical Admitting/Central Communication Scheduling 04/26/2022 Appointment Radiology Mark Eastman M.D., M.S. [address] [place] [address] 04/26/2022 Office Visit Otorhinolaryngology Roxanne Lanza APRN, C.N.P. [address] [place] [phone] 04/28/2022 Appointment Radiation Oncology Ursula Aguirre M.D. [address] [place] [phone] Scheduled Orders Name Type Priority Associated Diagnoses Order S chedule Management Visit Radiation Oncology Routine Malignant Neoplasm Of Once for 1 Supraglottic (HCC) Occurrenc es starting 04/11/2019 unti l 04/11/2019 Scheduled Referrals Name Type Priority Associated Diagnoses Order S chedule Endocrinology - Home Outpatient Routine Malignant Neoplasm E xpected: enteral nutrition Referral Of Supraglottic 019 consult (clinic) ([facility]) (Approximat e), Expires: 04/11/2022 External referral Outpatient Routine Malignant Neoplasm Orde red: ancillary (non-[place]) Referral Of Supraglottic 03/16 ([facility]) Dehydration documented as of this encounter Visit Diagnoses Diagnosis Dehydration - Primary Malignant Neoplasm Of Supraglottic (HCC) documented in this encounter
--- OUTSIDE RECORDS SUMMARY | 2022-04-05 09:26 | XMS_ITS | Encounter Summary ---
:1955 Author Organization [facility] Address [address] [place] [address] Care Team Providers Name Role Phone Unavailable Primary Care Provider Unavailable Reason for Visit Reason Comments Outpatient Infusion Thiamine Encounter Details Date Type Department Care Team Description 04/17/2019 Infusion Department of Infusion Lara Castellanos Malignant Neoplasm Of Therapy in [facility], FUNERAL ARRANGER, C .N.P. Supraglottic (HCC) [address] (Primary Dx) [address] [place] [phone] Social History Tobacco Use Types Packs/Day Years [...] do you attend mandaeism or Never 2018 pentecostal services? Do you [...] Radiology Mark Eastman M.D., M.S. [address] [place] [address] [place] [phone] 04/26/2022 Office Visit Otorhinolaryngology Roxanne Lanza APRN, C.N.P. [address] [place] [phone] 04/28/2022 Appointment Radiation Oncology Ursula Aguirre M.D. [address] [place] [phone] documented as of this encounter Visit Diagnoses [...] daily x 3 days, 04/17-04/19. 04/17-04/18 in [facility], 04/19 in [facility]. documented in this encounter
--- OUTSIDE RECORDS SUMMARY | 2022-04-05 09:26 | XMS_ITS | Encounter Summary ---
:1955 Author Organization [facility] Address [address] [place] [address] Care Team Providers Name Role Phone Unavailable Primary Care Provider Unavailable Reason for Visit Outpatient (Routine) - Closed Specialty Diagnoses / Procedures Referred By Contact Refer red To Contact Nutrition Diagnoses Home Enteral Nutrition Padma Vieira APRN, [facility] C.N.P., M.S. [address] [place] [address] [phone] Referral ID Status Reason Start Date Expiration Date Visits Requ ested Visits Authorized [id number] Closed 04/11/2019 04/10/2020 1 1 Encounter Details Date Type Department Care Team Description 04/13/2019 Clinical Support Department of Chapin Vieira APRN, C.N.P., M.S. [address] [place] [phone] Home Enteral Nutrition in Emy Kuhn RDN, LD [address] [place] [phone] Nutrition [place], [place] [address] [place] [phone] Social History Tobacco Use Types Packs/Day Years [...] do you attend hinduism or Never 2018 quaker services? 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 Indication for [...] Patient is followed in [facility]: follow-up plan is to see for post feeding tube placement appointments and monitor and evaluate as needed. Time spent with patient (minutes): 45 documented in this encounter Plan of Treatment Upcoming Encounters Date Type Specialty Care Team Description 04/22/2022 Clinical Admitting/Central Communication Scheduling 04/26/2022 Appointment Radiology Mark Eastman M.D., M.S. [address] [place] [phone] 04/26/2022 Office Visit Otorhinolaryngology Roxanne Lanza APRN, C.N.P. [address] [place] [phone] 04/28/2022 Appointment Radiation Oncology Ursula Aguirre M.D. [address] [place] [phone] documented as of this encounter Visit Diagnoses Diagnosis Home Enteral Nutrition documented in this encounter
--- OUTSIDE RECORDS SUMMARY | 2022-04-05 09:26 | XMS_ITS | Encounter Summary ---
:1955 Author Organization [facility] Address [address] [place] [address] Care Team Providers Name Role Phone Unavailable Primary Care Provider Unavailable Reason for Visit Radiation Therapy (Routine) - Closed Specialty Diagnoses / Procedures Referred By Contact Refer red To Contact Diagnoses Malignant Neoplasm Of Supraglottic (HCC) Ursula Aguirre M.D. [facility] Procedures Prior Auth Rad Tx [place] IMRT COMPLEX [address] [place] [phone] Referral ID Status Reason Start Date Expiration Date Visits Requ ested Visits Authorized [id number] Closed 03/15/2019 03/14/2020 35 35 Encounter Details Date Type Department Care Team Description 04/17/2019 Hospital Encounter Department of Radiation Bud Aguirre I., [place] [address] [facility] 1821 [place] [phone] Social History Tobacco Use Types Packs/Day Years [...] do you attend islam or Never 2018 spiritism services? Do you [...] Appointment Radiology Mark Eastman M.D., M.S. [address] [place] [phone] 04/26/2022 Office Visit Otorhinolaryngology Roxanne Lanza APRN, C.N.P. [address] [place] [phone] 04/28/2022 Appointment Radiation Oncology Ursula Aguirre M.D. [address] [place] [phone] documented as of this encounter Visit Diagnoses Not on filedocumented in this encounter
--- OUTSIDE RECORDS SUMMARY | 2022-04-05 09:26 | XMS_ITS | Encounter Summary ---
:1955 Author Organization [facility] Address [address] [place] [address] Care Team Providers Name Role Phone Unavailable Primary Care Provider Unavailable Encounter Details Date Type Department Care Team Description 04/13/2019 Orders Only Department of Emy Kuhn Malignan t Neoplasm Of Supraglottic (HCC) (Primary Dx); Nutrition in RDN, LD Gastrostomy Percutaneous Endoscopic Stat us Post (HCC); [place], [place] 200 [facility] Dysphagia Oropharyngeal Phase 200 [place] [phone] Social History Tobacco Use Types Packs/Day Years [...] do you attend congregational or Never 2018 orthodox services? Do you [...] Radiology Mark Eastman M.D., M.S. [address] [place] [phone] 04/26/2022 Office Visit Otorhinolaryngology Roxanne Lanza APRN, C.N.P. [address] [place] [phone] 04/28/2022 Appointment Radiation Oncology Ursula Aguirre M.D. [address] [place] [phone] documented as of this encounter Visit Diagnoses Diagnosis Malignant Neoplasm Of Supraglottic (HCC) - Primary Gastrostomy Percutaneous Endoscopic Stat us Post (HCC) Dysphagia Oropharyngeal Phase documented in this encounter
--- OUTSIDE RECORDS SUMMARY | 2022-04-05 09:26 | XMS_ITS | Encounter Summary ---
:1955 Author Organization [facility] Address [address] [place] [address] Care Team Providers Name Role Phone Unavailable Primary Care Provider Unavailable Encounter Details Date Type Department Care Team Description 04/11/2019 Clinical Communication Department of Camille Orellana Radiation Oncology in [address] [place] [address] [place] [phone] Social History Tobacco Use Types [...] do you attend holiness or Never 2018 shinto services? Do you [...] covered by the patient's insurance Phone number: [phone] Is it okay to leave a voicemail on answering machine with test results? No Pharmacy (if medication related): [facility] [address] 150 [facility] [address] Ayla Orellana C.Ph.T. documented in this encounter Plan of Treatment Upcoming Encounters Date Type Specialty Care Team Description 04/22/2022 Clinical Admitting/Central Communication Scheduling 04/26/2022 Appointment Radiology Mark Eastman M.D., M.S. [address] [place] [phone] 04/26/2022 Office Visit Otorhinolaryngology Roxanne Lanza, MUNICIPAL ENGINEER, C.N.P. [address] [place] [phone] 04/28/2022 Appointment Radiation Oncology Ursula Aguirre M.D. [address] [place] [phone] documented as of this encounter Visit Diagnoses Not on filedocumented in this encounter
--- OUTSIDE RECORDS SUMMARY | 2022-04-05 09:26 | XMS_ITS | Encounter Summary ---
:1955 Author Organization [facility] Address [address] [place] [address] Care Team Providers Name Role Phone Unavailable Primary Care Provider Unavailable Encounter Details Date Type Department Care Team Description 04/13/2019 Orders Only [facility] - Lin Benitez, [address] [facility] 1 A.P.N.P., [place] [address] [place] [address] [place] [address] (Wo rk) Social History Tobacco [...] do you attend mosque or Never 2018 moravian services? Do you [...] Radiology Mark Eastman M.D., M.S. [address] [place] [phone] 04/26/2022 Office Visit Otorhinolaryngology Roxanne Lanza APRN, C.N.P. [address] [place] [phone] 04/28/2022 Appointment Radiation Oncology Ursula Aguirre M.D. [address] [place] [phone] documented as of this encounter Visit Diagnoses Not on filedocumented in this encounter
--- OUTSIDE RECORDS SUMMARY | 2022-04-05 09:26 | XMS_ITS | Encounter Summary ---
:1955 Author Organization [facility] Address [address] [place] [address] Care Team Providers Name Role Phone Unavailable Primary Care Provider Unavailable Reason for Referral Outpatient (Routine) - Closed Specialty Diagnoses / Procedures Referred By Contact Refer red To Contact Endocrinology Diagnoses Malignant Neoplasm Of Supraglottic (HCC) Lara Castellanos [facility] AMAYA, C.N.P. [address] [place] [phone] Referral ID Status Reason Start Date Expiration Date Visits Requ ested Visits Authorized [id number] Closed 04/13/2019 04/12/2020 1 1 Scheduling Instructions With LOGISTICS PROJECT MANAGER on Tuesday Reason for Visit Outpatient (Routine) - Closed Specialty Diagnoses / Procedures Referred By Contact Refer red To Contact Endocrinology Diagnoses Malignant Neoplasm Of Supraglottic (HCC) Summer Pérez P.A.-C., [facility] M.S. [address] [place] [address] Referral ID Status Reason Start Date Expiration Date Visits Requ ested Visits Authorized [id number] Closed 04/11/2019 04/10/2020 1 1 Encounter Details Date Type Department Care Team Description 04/13/2019 Comprehensive Visit Division of Summer Pérez P.A.-C., M.S. [address] [place] [phone] Loss Weight (Primary Dx); Endocrinology in Lara CastellanosSEMAJN, C.N.P. [address] [place] [phone] Malignant Neoplasm Of Supraglottic (HCC) ; [place], [place] Odynophagia [address] [place] [phone] Social History Tobacco Use Types Packs/Day Years [...] do you attend restorationism or Never 2018 oriental orthodox services? Do [...] sons. 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 5. Return visit with LOGISTICS PROJECT MANAGER 04/18. Total time spent 40 minutes with greater than 50% of that time spend in counseling and care coordination This note was constructed using [employer] Direct speech recognition medical dictation system. All attempts have been made to review for accuracy however, some typographical errors may be present. documented in this encounter Plan of Treatment Upcoming Encounters Date Type Specialty Care Team Description 04/22/2022 Clinical Admitting/Central Communication Scheduling 04/26/2022 Appointment Radiology Mark Eastman M.D., M.S. [address] [place] [address] 04/26/2022 Office Visit Otorhinolaryngology Roxanne Lanza APRN, C.N.P. [address] [place] [address] 04/28/2022 Appointment Radiation Oncology Ursula Aguirre M.D. [address] [place] [address] Scheduled Referrals Name Type Priority Associated Diagnoses Order S chedule Endocrinology - Home Outpatient Routine Malignant Neoplasm E xpected: enteral nutrition Referral Of Supraglottic 019 consult (clinic) ([facility]) (Approximat e), Expires: 04/13/2022 documented as [...] Organization Address City/State/ZIP Code Phon e Number [facility] [address] [place] [address] LAB Phosphorus Inorganic (04/20/2019 9:03 AM CDT) athologist Signature Phosphorus 3.3 2.5 - 4.5 04/20/2019 (Inorganic), S mg/dL 10:12 PM CDT Specimen Anatomical Collection Method Collection Time Receive d Time (Source) Location / / Volume Laterality Blood (Blood, 04/20/2019 9:03 AM 04/20/20 19 9:37 Venous) CDT PM CDT Lara Castellanos APRN, C.N.PShital LAB BLOOD ADD-ON Performing Organization Address City/State/ZIP Code Phon e Number [facility]- [address] [place] [address] [place] LAB Potassium (04/20/2019 9:03 AM CDT) athologist Signature Potassium, S 4.2 3.6 - 5.2 04/20/2019 mmol/L 10:19 AM CDT Specimen Anatomical Collection Method Collection Time Receive d Time (Source) Location / / Volume Laterality Blood (Blood, 04/20/2019 9:03 AM 04/20/20 19 9:11 Venous) CDT AM CDT Teresa Patel APRNNDori LAB BLOOD ADD-ON Performing Organization Address City/State/ZIP Code Phon e Number [facility] [address] [place] [address] LAB Potassium (04/19/2019 7:02 PM CDT) athologist Signature Potassium, S 4.8 3.6 - 5.2 04/19/2019 mmol/L 8:18 PM CDT Specimen Anatomical Collection Method Collection Time Receive d Time (Source) Location / / Volume Laterality Blood (Blood, 04/19/2019 7:02 PM 04/19/20 19 7:09 Venous) CDT PM CDT Teresa Patel APRNN.P. LAB BLOOD ADD-ON Performing Organization Address City/State/ZIP Code Phon e Number [facility] - [address] [place], [place] [address] [facility] Phosphorus Inorganic (04/19/2019 7:02 PM CDT) athologist Signature Phosphorus 3.5 2.5 - 4.5 04/19/2019 (Inorganic), S mg/dL 8:18 PM CDT Specimen Anatomical Collection Method Collection Time Receive d Time (Source) Location / / Volume Laterality Blood (Blood, 04/19/2019 7:02 PM 04/19/20 19 7:09 Venous) CDT PM CDT Teresa Patel APRNN.PShital LAB BLOOD ADD-ON Performing Organization Address City/State/ZIP Code Phon e Number [facility] - [address] [place] [address] [facility] Magnesium (04/19/2019 7:02 PM CDT) P athologist Signature Magnesium, S 1.9 1.7 - 2.3 04/19/2019 mg/dL 8:18 PM CDT Specimen Anatomical Collection Method Collection Time Receive d Time (Source) Location / / Volume Laterality Blood (Blood, 04/19/2019 7:02 PM 04/19/20 7:09 Venous) CDT PM CDT Lara Castellanos APRN, C.N.P. LAB BLOOD ADD-ON Performing Organization Address City/[facility]/ZIP Code Phon e Number [facility] - [address] [place] [address] [facility] Phosphorus Inorganic (04/17/2019 12:53 PM CDT) athologist Signature Phosphorus 3.4 2.5 - 4.5 04/17/2019 (Inorganic), S mg/dL 2:55 PM CDT Specimen Anatomical Collection Method Collection Time Receive d Time (Source) Location / / Volume Laterality Blood (Blood, 04/17/2019 12:53 04/17/2019 1:07 Venous) PM CDT PM CDT Lara Castellanos APRN, C.N.P. LAB BLOOD ADD-ON Performing Organization Address City/State/ZIP Code Phon e Number [facility] - [address] [place] [address] [facility] Magnesium (04/17/2019 12:53 PM CDT) athologist Signature Magnesium, S 1.9 1.7 - 2.3 04/17/2019 mg/dL 2:55 PM CDT Specimen Anatomical Collection Method Collection Time Receive d Time (Source) Location / / Volume Laterality Blood (Blood, 04/17/2019 12:53 04/17/2019 1:07 Venous) PM CDT PM CDT Lara Castellanos APRN, C.N.P. LAB BLOOD ADD-ON Performing Organization Address City/[facility]/ZIP Code Phon e Number [facility] - [address] [place] [address] [facility] (ABNORMAL) Basic Metabolic Panel (04/17/2019 12:53 PM [...] >=60 04/17/2019 Black/ mL/min/BSA 2:55 PM CDT Bulgarian Comment: ----ADDITIONAL INFORMATION---- Estimated GFR calculated using [...] Organization Address City/State/ZIP Code Phon e Number [facility] - [address] [place], [place] [address] [facility] documented in this encounter Visit Diagnoses Diagnosis Loss Weight - Primary Malignant Neoplasm Of Supraglottic (HCC) Odynophagia documented in this encounter
--- OUTSIDE RECORDS SUMMARY | 2022-04-05 09:26 | XMS_ITS | Encounter Summary ---
:1955 Author Organization [facility] Address [address] [place] [address] Care Team Providers Name Role Phone Unavailable Primary Care Provider Unavailable Reason for Referral Outpatient (Routine) - Closed Specialty Diagnoses / Procedures Referred By Contact Refer red To Contact Nutrition Diagnoses Home Enteral Nutrition Padma Vieira APRN, [facility] C.N.P., M.S. [address] [place] [phone] Referral ID Status Reason Start Date Expiration Date Visits Requ ested Visits Authorized [id number] Closed 04/11/2019 04/10/2020 [address] Pre utpatient (Routine) - Closed Specialty Diagnoses / Procedures Referred By Contact Refer red To Contact Nutrition Diagnoses Home Enteral Nutrition [facility] C.[facility] M.S. [address] [place] [phone] Referral ID Status Reason Start Date Expiration Date Visits Requ ested Visits Authorized [id number] Closed 04/11/2019 04/10/2020 [address] Post Specialty Diagnoses / Procedures Referred By Contact Refer red To Contact [facility] [address] [place] [phone] Referral ID Status Reason Start Date Expiration Date Visits Requ ested Visits Authorized Scheduling Instructions SUSIE COBOS Post--30 min Specialty Diagnoses / Procedures Referred By Contact Refer red To Contact [facility] [address] [place] [phone] Referral ID Status Reason Start Date Expiration Date Visits Requ ested Visits Authorized Scheduling Instructions SUSIE COBOS Pre--60 min Encounter Details Date Type Department Care Team Description 04/11/2019 Orders Only Division of Endocrinology Chad Dc Enteral Nutrition in [facility] Ashley Mendez R.N. (Primary Dx) [address] [place] [address] [place] [phone] [place], [place] [phone] Social History Tobacco Use Types Packs/Day Years [...] do you attend sikhism or Never 2018 mormon services? Do you belong to any clubs or No 02/21/2019 organizations such as sikhism groups, unions, fraternal or athletic groups, or [...] Radiology Mark Eastman M.D., M.S. [address] [place] [phone] 04/26/2022 Office Visit Otorhinolaryngology Roxanne Lanza, [facility], C.N.P. [address] [place] [phone] 04/28/2022 Appointment Radiation Oncology Ursula Aguirre M.D. [address] [place] [phone] Scheduled Referrals Name Type Priority Associated Diagnoses [...] Prothrombin Time (PT/INR) (04/17/2019 12:53 PM CDT) [facility] Method Time Signature Prothrombin 12.8 (H) 9.4 [...] Organization Address City/State/ZIP Code Phon e Number [facility] - [address] [place] [address] [facility] documented in this encounter Visit Diagnoses Diagnosis Home Enteral Nutrition - Primary Home Enteral Nutrition documented in this encounter
--- OUTSIDE RECORDS SUMMARY | 2022-04-05 09:26 | XMS_ITS | Encounter Summary ---
:1955 Author Organization [facility] [place] [facility] Address [address] [place] [address] Care Team Providers Name Role Phone Unavailable Primary Care Provider Unavailable Reason for Visit Radiation Therapy (Routine) - Closed Specialty Diagnoses / Procedures Referred By Contact Refer red To Contact Diagnoses Malignant Neoplasm Of Supraglottic (HCC) Ursula Aguirre M.D. [facility] Procedures Prior Auth Rad Tx DC IMRT COMPLEX [address] [place] [phone] Referral ID Status Reason Start Date Expiration Date Visits Requ ested Visits Authorized [id number] Closed 03/15/2019 03/14/2020 35 35 Encounter Details Date Type Department Care Team Description 04/12/2019 Hospital Encounter Department of Radiation Bud Aguirre I., [place] [address] [facility] [address] [place] [phone] Social History Tobacco Use Types Packs/Day Years [...] do you attend moravian or Never 2018 pentecostal services? Do you [...] Radiology Mark Eastman M.D., M.S. [address] [place] [phone] 04/26/2022 Office Visit Otorhinolaryngology Roxanne Lanza APRN, C.N.P. [address] [place] [phone] 04/28/2022 Appointment Radiation Oncology Ursula Aguirre M.D. [address] [place] [phone] documented as of this encounter Visit Diagnoses Not on filedocumented in this encounter
--- OUTSIDE RECORDS SUMMARY | 2022-04-05 09:26 | XMS_ITS | Encounter Summary ---
:1955 Author Organization [facility] Address [address] [place] [address] Care Team Providers Name Role Phone Unavailable Primary Care Provider Unavailable Reason for Referral Outpatient (Routine) - Closed Specialty Diagnoses / Procedures Referred By Contact Refer red To Contact Diagnoses Malignant Neoplasm Of Supraglottic (HCC) Summer Pérez P.A.-C., [facility] Procedures Percutaneous Endoscopic Gastrostomy M.S. [address] [place] [phone] Referral ID Status Reason Start Date Expiration Date Visits Requ ested Visits Authorized [id number] Closed 04/11/2019 04/10/2020 1 1 Reason for Visit Auth/Cert Specialty Diagnoses / Procedures Referred By Contact Refer red To Contact Diagnoses Malignant Neoplasm Of Supraglottic (HCC) Procedures EGD ? PERCUTANEOUS ENDOSCOPIC GASTROSTOMY/JEJUNOSTOMY Referral ID Status Reason Start Date Expiration Date Visits Requ ested Visits Authorized [id number] 1 1 Encounter Details Date Type Department Care Team Description 04/17/2019 Hospital Encounter Division of Summer Pérez Malignant Neoplasm Gastroenterology in Melissa Frederick, Of Supra glottic [place], [place] M.S. (HCC) [address] [facility] [address] [place] [address] [place] [phone] Social History Tobacco Use Types Packs/Day Years [...] do you attend mandaeism or Never 2018 uatsdin services? Do you belong to any clubs or No 02/21/2019 organizations such as mandaeism groups, unions, [employer] or athletic groups, or school groups? How [...] Radiology Mark Eastman M.D., M.S. [address] [place] [phone] 04/26/2022 Office Visit Otorhinolaryngology Roxanne Lanza, CASSANDRA CONSULTANT, C.N.P. [address] [place] [phone] 04/28/2022 Appointment Radiation Oncology Ursula Aguirre M.D. [address] [place] [phone] documented as of this encounter [...] Address City/State/ZIP Code Phon e Number [facility] [address] [place] [address] Upper GI Endoscopy (04/17/2019 3:32 PM CDT) Specimen (Source) Anatomical Collection Method Collection Time Re ceived Time Location / / Volume Laterality 04/17/2019 3:32 PM CDT Impressions [facility] - 04/17/2019 4:58 PM CDT Post-op Diagnoses: [...] to the 2 week ? please call [phone] for inst ructions ? T-fasteners are removed [...] T-fasteners or T ? ??fastener site call [phone] Tuesday ? ??Tuesday ? am-4:30 pm or after hours, weeken ds, holidays call [facility] rewinder operator helper ? [phone] ask them to page [phone] and wait for MD to answer. May [...] to the 2 week ? please call [phone] for inst ructions ? T-fasteners are removed [...] T-fasteners or T ? ??fastener site call [phone] Tuesday-Tuesday; ? am-4:30 pm or after hours, weeken ds, holidays call [facility] rewinder operator helper ? [phone] ask them to page [phone] and wait for MD to answer. May ? need to repeat call if they don't answer they could be busy Findings: ? The entire examined stomach was n ormal. The patient was placed in the ? supine position for PEG placement . The stomach was insufflated to appose ? gastric and abdominal gaines. A si te was located in the [...] Organization Address City/State/ZIP Code Phon e Number [facility] documented in this encounter Visit Diagnoses [...] D) 1510 (Given - Provider: Anisa Woods, CASSANDRA CONSULTANT, CONTINUOUS MINING MACHINE OPERATOR) 1,000 mg (rounded from 1,029 mg = [...]
--- OUTSIDE RECORDS SUMMARY | 2022-04-05 09:26 | XMS_ITS | Encounter Summary ---
:[address] [facility] Address [address] [place] [address] Care Team Providers Name Role Phone Unavailable Primary Care Provider Unavailable Reason for Visit Reason Comments Scheduling Encounter Details Date Type Department Care Team Description 04/11/2019 Documentation Division of Endocrinology in Ashley Dc Veteran, [place] M, R.N. [address] [facility] [address] [place] [phone] [place], [place] [phone] Social History Tobacco Use Types Packs/Day Years [...] do you attend confucianism or Never 2018 quaker services? Do you [...] CDT SUBJECTIVE Summer Pérez PA-C [facility] about the plan of care for [...] PLAN This procedure should be scheduled for: GI--[facility] 2 or GI--[facility] Scheduling needs include: Procedure time: Per GI [...] Radiology Mark Eastman M.D., M.S. [address] [place] [phone] 04/26/2022 Office Visit Otorhinolaryngology Roxanne Lanza APRN, C.N.P. [address] [place] [phone] 04/28/2022 Appointment Radiation Oncology Ursula Aguirre M.D. [address] [place] [phone] documented as of this encounter Visit Diagnoses Not on filedocumented in this encounter
--- OUTSIDE RECORDS SUMMARY | 2022-04-05 09:26 | XMS_ITS | Encounter Summary ---
:1955 Author Organization [facility] Address [address] [place] [address] Care Team Providers Name Role Phone Unavailable Primary Care Provider Unavailable Reason for Visit Auth/Cert Specialty Diagnoses / Procedures Referred By Contact Refer red To Contact Diagnoses Malignant Neoplasm Of Supraglottic (HCC) Procedures EGD ? PERCUTANEOUS ENDOSCOPIC GASTROSTOMY/JEJUNOSTOMY Referral ID Status Reason Start Date Expiration Date Visits Requ ested Visits Authorized [id number] 1 1 Encounter Details Date Type Department Care Team Description 04/17/2019 Hospital Encounter Department of Padma Vieira Enteral Radiology, Brenda Chaidez APRN C.NShitalPShital, Nutriti on [facility] in [facility], [address] [place], [place] [address] [place] [phone] [place], [place] [phone] (Work) [phone] Social History Tobacco Use Types Packs/Day Years [...] do you attend scientology or Never 2018 sikh services? Do you [...] to pay for the very basics like [employer] hat hard 02/21/2019 food, housing, medical care, [...] Radiology Mark Eastman M.D., M.S. [address] [place] [phone] 04/26/2022 Office Visit Otorhinolaryngology Roxanne Lanza, ABSORPTION AND ADSORPTION ENGINEER, C.N.P. [address] [place] [phone] 04/28/2022 Appointment Radiation Oncology Ursula Aguirre M.D. [address] [place] [phone] documented as of this encounter Procedures Procedure [...]
--- OUTSIDE RECORDS SUMMARY | 2022-04-05 09:26 | XMS_ITS | Encounter Summary ---
:1955 Author Organization [facility] Address [address] [place] [address] Care Team Providers Name Role Phone Unavailable Primary Care Provider Unavailable Reason for Visit Radiation Therapy (Routine) - Closed Specialty Diagnoses / Procedures Referred By Contact Refer red To Contact Diagnoses Malignant Neoplasm Of Supraglottic (HCC) Ursula Aguirre M.D. [facility] Procedures Prior Auth Rad Tx [place] IMRT COMPLEX [address] [place] [phone] Referral ID Status Reason Start Date Expiration Date Visits Requ ested Visits Authorized [id number] Closed 03/15/2019 03/14/2020 35 35 Encounter Details Date Type Department Care Team Description 04/11/2019 Hospital Encounter Department of Radiation Bud Aguirre I., [place] [address] [facility] [address] [place] [phone] Social History Tobacco Use Types Packs/Day Years [...] do you attend confucianist or Never 2018 congregational services? Do you [...] Eastman M.D., M.S. [address] [place] [address] 04/26/2022 Office Visit Otorhinolaryngology Roxanne Lanza APRN, C.N.P. [address] [place] [phone] 04/28/2022 Appointment Radiation Oncology Ursula Aguirre M.D. [address] [place] [phone] documented as of this encounter Visit Diagnoses Not on filedocumented in this encounter
--- OUTSIDE RECORDS SUMMARY | 2022-04-05 09:26 | XMS_ITS | Encounter Summary ---
:1955 Author Organization [facility] Address [address] [place] [address] 7[address] Care Team Providers Name Role Phone Unavailable Primary Care Provider Unavailable Reason for Referral Outpatient (Routine) - Closed Specialty Diagnoses / Procedures Referred By Contact Refer red To Contact Ursula Fletcher [facility].D. [facility] [address] [place] [address] [phone] Referral ID Status Reason Start Date Expiration Date Visits Requ ested Visits Authorized [id number] Closed 03/15/2019 03/14/2020 1 1 Reason for Visit Outpatient (Routine) - Closed Specialty Diagnoses / Procedures Referred By Contact Refer red To Contact Ursula Fletcher M.D. [address] [phone] Referral ID Status Reason Start Date Expiration Date Visits Requ ested Visits Authorized [id number] Closed 03/15/2019 03/14/2020 1 1 Encounter Details Date Type Department Care Team Description 04/12/2019 Hospital Encounter Department of Mary Aguirre M.D. [address] [place] [phone] Malignant Neoplasm Of Radiation Oncology Ibeth Vanessa Supraglottic (HCC) in [place], [place] [address] [place] [address] Social History Tobacco Use Types [...] do you attend jewish or Never 2018 church services? Do you [...] primary care provider on file. Primary Language: Romansh REASON FOR CONSULT Initial social work consult [...] Origin: Mrs. Narayan grew up in the [facility] [place] and lived there until 1 year ago. Marital Status / Family / Household Status: Household information: Number of persons in household: 3 Relationships of persons in household: Patient, her son and his . Type of housing: Private residence, belonging to her son and [id number]-fez. Support Systems: Family Primary caregiver: Sage Narayan, her son, and Darlin Narayan, her [id number]-lsb. We have received permission to contact them. Spirituality / Pentecostal / Culture: No hoahaoism on file Employment: Not working - disabled. 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 Abuse, Neglect, Maltreatment, Trauma: Current: None reported. Past: None reported. ENVIRONMENTAL SUPPORTS Current Living Situation: Mrs. Narayan lives with her son and ddiyrzno-vf-msh in their home in [place], [place]. However, during her radiation therapy she is staying in [place] with her son Rolando and his children, [...] help in managing it. FINANCES/INSURANCE Primary insurance: [employer] H[employer] Secondary insurance: N/A ADVANCE DIRECTIVES Mrs. Narayan does not have a completed health care directive on file with [facility]. This was not discussed today. OBJECTIVE MENTAL [...] with her son Sage, met with this delinquency prevention social worker today for an initial social work consult and psychosocial assessment. She was generous in sharing her overall life context and current experience with radiation therapy. She lived in [place] until 1 year ago, when she moved to [place] to be closer to her sons. She lives with one son in [place], but during the weeks that she is undergoing radiation therapy, she stays with her son in [place]. She has significant hearing impairment from a [...] Radiology Mark Eastman M.D., M.S. [address] [place] [phone] 04/26/2022 Office Visit Otorhinolaryngology Roxanne Lanza APRN, C.N.P. [address] [place] [address] [phone] 04/28/2022 Appointment Radiation Oncology Ursula Aguirre M.D. [address] [place] [address] [phone] Scheduled Referrals Name Type Priority Associated Diagnoses Order [place] Social Work Outpatient Referral Routine Once for 1 office visit Occurrences sta rting (clinic) 04/12/2019 unti l 04/12/2019 documented as of this encounter Visit Diagnoses Diagnosis Malignant Neoplasm Of Supraglottic (HCC) documented in this encounter
--- OUTSIDE RECORDS SUMMARY | 2022-04-05 09:26 | XMS_ITS | Encounter Summary ---
:1955 Author Organization [facility] Address [address] [place] [address] Care Team Providers Name Role Phone Unavailable Primary Care Provider Unavailable Reason for Referral Outpatient (Routine) - Closed Specialty Diagnoses / Procedures Referred By Contact Refer red To Contact Nutrition Diagnoses Malignant Neoplasm Of Supraglottic (HCC) Summer Pérez P.A.-C., [facility] [address] [place] [phone] Referral ID Status Reason Start Date Expiration Date Visits Requ ested Visits Authorized [id number] Closed 03/29/2019 03/28/2020 1 1 Reason for Visit Outpatient (Routine) - Closed Specialty Diagnoses / Procedures Referred By Contact Refer red To Contact Nutrition Diagnoses Malignant Neoplasm Of Supraglottic (HCC) Summer Pérez P.A.-C., [facility] [address] [place] [phone] Referral ID Status Reason Start Date Expiration Date Visits Requ ested Visits Authorized [id number] Closed 03/29/2019 03/28/2020 1 1 Encounter Details Date Type Department Care Team Description 04/12/2019 Hospital Encounter Department of Summer Pérez P.A.-C., M.S. [address] [place] [phone] Malignant Neoplasm Of Radiation Oncology Ryanne Mcbride, JUANITO [address] [place] [address] Supraglottic (HCC) in [place], [place] [address] [place] [address] Social History Tobacco Use Types [...] do you attend yazidi or Never 2018 worship services? 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 Nutrition Prescription/Recommendation 5808-2540??kcals, 88-105??grams protein, 9+??cups fluid ?? INTERVENTION Patient [...] again today. She has appointments scheduled in [place] tomorrow for tube feeding placement and initiation. [...] as ordered 4. Tube feeding initiation in [place]. FOLLOW UP PLAN: She??will follow up next week. RDN's contact information provided and??she??was encouraged to call with questions. ?? Time spent with patient (minutes):15 documented in this encounter Plan of Treatment Upcoming Encounters Date Type Specialty Care Team Description 04/22/2022 Clinical Admitting/Central Communication Scheduling 04/26/2022 Appointment Radiology Mark Eastman M.D., M.S. [address] [place] [phone] 04/26/2022 Office Visit Otorhinolaryngology Roxanne Lanza, RIG SUPERVISOR, C.N.P. [address] [place] [phone] 04/28/2022 Appointment Radiation Oncology Ursula Aguirre M.D. [address] [place] [phone] Scheduled Referrals Name Type Priority Associated Diagnoses Order S chedule Nutrition - Outpatient Referral Routine Malignant Neoplasm On ce for 1 Medical nutrition Of Supraglottic Occurre nces therapy consult (HCC) starting (clinic) until 9 documented as of this encounter Visit Diagnoses Diagnosis Malignant Neoplasm Of Supraglottic (HCC) documented in this encounter
--- OUTSIDE RECORDS SUMMARY | 2022-04-05 09:26 | XMS_ITS | Encounter Summary ---
:1955 Author Organization [facility] Address [address] [place] [address] Care Team Providers Name Role Phone Unavailable Primary Care Provider Unavailable Encounter Details Date Type Department Care Team Description 04/17/2019 Documentation Division of Sue Jackson, Internal Medicine in Pharm.D., R .Ph. [place], [place] [address] [place] [phone] Social History Tobacco Use Types Packs/Day [...] do you attend yarsani or Never 2018 muslim services? Do you [...] Radiology Mark Eastman M.D., M.S. [address] [place] [phone] 04/26/2022 Office Visit Otorhinolaryngology Roxanne Lanza, 8TH GRADE TEACHER, C.N.P. [address] [place] [phone] 04/28/2022 Appointment Radiation Oncology Ursula Aguirre M.D. [address] [place] [phone] documented as of this encounter Visit Diagnoses Not on filedocumented in this encounter
--- OUTSIDE RECORDS SUMMARY | 2022-04-05 09:26 | XMS_ITS | Encounter Summary ---
:1955 Author Organization [facility] Address [address] [place] [address] Care Team Providers Name Role Phone Unavailable Primary Care Provider Unavailable Reason for Visit Reason Comments Appointment Encounter Details Date Type Department Care Team Description 04/13/2019 Clinical Support Division of Chapin Vieira APRN, C.N.P., M.S. [address] [place] [phone] [facility]. [address] [place] [address] [phone] Nutrition [place], [place] [address] [place] [address] [phone] Social History Tobacco Use Types Packs/Day Years [...] do you attend yarsanism or Never 2018 confucianist services? Do you [...] scheduled? Date: 04/17, Time: 1400 and Location: [place] [address]. Tube education provided: GI: Both tube types, [...] Scheduled: Date 04/17 at 1240 Has the [facility] Nurse post procedure appointment been scheduled? Yes; Date 04/18 at 0800 Has the [facility] Dietitian post procedure appointment been scheduled? [...] Appointment Radiology Mark Eastman M.D., M.S. [address] [place] [phone] 04/26/2022 Office Visit Otorhinolaryngology Roxanne Lanza APRN, C.N.P. [address] [place] [phone] 04/28/2022 Appointment Radiation Oncology Ursula Aguirre M.D. [address] [place] [phone] documented as of this encounter Visit Diagnoses Diagnosis Home Enteral Nutrition documented in this encounter
--- OUTSIDE RECORDS SUMMARY | 2022-04-05 09:27 | XMS_ITS | Encounter Summary ---
:1955 Author Organization [facility] Address [address] [place] [address] Care Team Providers Name Role Phone Unavailable Primary Care Provider Unavailable Reason for Referral Outpatient (Routine) - Canceled Specialty Diagnoses / Procedures Referred By Contact Refer red To Contact Radiation Oncology Diagnoses Malignant Neoplasm Of Supraglottic (HCC) Ursula Aguirre [facility] [place] [facility] M.D. 200 [place] [address] Referral ID Status Reason Start Date Expiration Date Visits V isits Requested Authorized [id number] Canceled 03/15/2019 03/14/2020 1 1 Reason for Visit Outpatient (Routine) - Canceled Specialty Diagnoses / Procedures Referred By Contact Refer red To Contact Radiation Oncology Diagnoses Malignant Neoplasm Of Supraglottic (HCC) Ursula Aguirre [facility] [place] [facility] M.D. 200 [place] [address] Referral ID Status Reason Start Date Expiration Date Visits V isits Requested Authorized [id number] Canceled 03/15/2019 03/14/2020 1 1 Encounter Details Date Type Department Care Team Description 04/09/2019 Hospital Encounter Department of Mary Aguirre M.D. [address] [place] [phone] Malignant Neoplasm Of Radiation Oncology Jannet Cross R.N. 200 [place] [address] Supraglottic (HCC) in [place], [place] [address] [place] [phone] Social History Tobacco Use Types Packs/Day Years [...] Radiology Mark Eastman M.D., M.S. [address] [place] [phone] 04/26/2022 Office Visit Otorhinolaryngology Roxanne Lanza, PROGRAMMER NUMERICAL CONTROL, C.N.P. [address] [place] [phone] 04/28/2022 Appointment Radiation Oncology Ursula Aguirre M.D. [address] [place] [phone] Scheduled Referrals Name Type Priority Associated Diagnoses Order S chedule Radiation Oncology Outpatient Referral Routine Malignant Neopl asm Once for 1 nurse visit Of Supraglottic Occurrences (clinic) (HCC) starting 2018 until 9 documented as of this encounter Visit Diagnoses Diagnosis Malignant Neoplasm Of Supraglottic (HCC) documented in this encounter
--- OUTSIDE RECORDS SUMMARY | 2022-04-05 09:27 | XMS_ITS | Encounter Summary ---
:1955 Author Organization [facility] Address [address] [place] [address]150 Care Team Providers Name Role Phone Unavailable Primary Care Provider Unavailable Reason for Visit Radiation Therapy (Routine) - Closed Specialty Diagnoses / Procedures Referred By Contact Refer red To Contact Diagnoses Malignant Neoplasm Of Supraglottic (HCC) Ursula Aguirre M.D. [facility] Procedures Prior Auth Rad Tx [place] IMRT COMPLEX [address] [place] [address] [phone] Referral ID Status Reason Start Date Expiration Date Visits Requ ested Visits Authorized [id number] Closed 03/15/2019 03/14/2020 35 35 Encounter Details Date Type Department Care Team Description 04/04/2019 Hospital Encounter Department of Radiation Bud Aguirre I., Oncology in [place] [address] [facility] [address] [place] [phone] Social History Tobacco Use Types Packs/Day Years [...] do you attend voodoo or Never 2018 samaritan services? Do you belong to any clubs or No 02/21/2019 organizations such as voodoo groups, unions, fraWadeCo Specialties or athletic groups, or school groups? How [...] Radiology Mark Eastman M.D., M.S. [address] [place] [phone] 04/26/2022 Office Visit Otorhinolaryngology Roxanne Lanza APRN, C.N.P. [address] [place] [phone] 04/28/2022 Appointment Radiation Oncology Ursula Aguirre M.D. [address] [place] [phone] documented as of this encounter Visit Diagnoses Not on filedocumented in this encounter
--- OUTSIDE RECORDS SUMMARY | 2022-04-05 09:27 | XMS_ITS | Encounter Summary ---
:1955 Author Organization [facility] Address [address] [place] [address] Care Team Providers Name Role Phone Unavailable Primary Care Provider Unavailable Reason for Visit Radiation Therapy (Routine) - Closed Specialty Diagnoses / Procedures Referred By Contact Refer red To Contact Diagnoses Malignant Neoplasm Of Supraglottic (HCC) Ursula Aguirre M.D. [facility] Procedures Prior Auth Rad Tx [place] IMRT COMPLEX [address] [place] [address] [phone] Referral ID Status Reason Start Date Expiration Date Visits Requ ested Visits Authorized [id number] Closed 03/15/2019 03/14/2020 35 35 Encounter Details Date Type Department Care Team Description 04/02/2019 Hospital Encounter Department of Radiation Bud Aguirre I., Oncology in [place] [address] [facility] [address] [place] [address] [phone] Social History Tobacco Use Types Packs/Day Years [...] do you attend adventism or Never 2018 rastafarian services? Do you belong to any clubs or No 02/21/2019 organizations such as adventism groups, unions, fraOpenBook or athletic groups, or school groups? How [...] Radiology Mark Eastman M.D., M.S. [address] [place] [phone] 04/26/2022 Office Visit Otorhinolaryngology Roxanne Lanza APRN, C.N.P. [address] [place] [phone] 04/28/2022 Appointment Radiation Oncology Ursula Aguirre M.D. [address] [place] [phone] documented as of this encounter Visit Diagnoses Not on filedocumented in this encounter
--- OUTSIDE RECORDS SUMMARY | 2022-04-05 09:27 | XMS_ITS | Encounter Summary ---
:1955 Author Organization [facility] Address [address] [place] [address] Care Team Providers Name Role Phone Unavailable Primary Care Provider Unavailable Reason for Referral Radiation Therapy (Routine) - Canceled Specialty Diagnoses / Procedures Referred By Contact Refer red To Contact Diagnoses Malignant Neoplasm Of Supraglottic (HCC) Ursula Aguirre M.D. [facility] Procedures Management Visit [address] [place] [phone] Referral ID Status Reason Start Date Expiration Date Visits V isits Requested Authorized [id number] Canceled 03/15/2019 03/14/2020 1 1 Reason for Visit Radiation Therapy (Routine) - Canceled Specialty Diagnoses / Procedures Referred By Contact Refer red To Contact Diagnoses Malignant Neoplasm Of Supraglottic (HCC) Ursula Aguirre M.D. [facility] Procedures Management Visit [address] [place] [address] [phone] Referral ID Status Reason Start Date Expiration Date Visits V isits Requested Authorized [id number] Canceled 03/15/2019 03/14/2020 1 1 Encounter Details Date Type Department Care Team Description 04/04/2019 Hospital Encounter Department of Ursula Aguirre Neoplasm Of Radiation Oncology Kimberley Bacon Supraglottic (HCC) in [place], [address] [place], [place] [address] [facility] [phone] [place], [place] [phone] (Work) [phone] Social History Tobacco Use Types Packs/Day Years [...] do you attend gnosticist or Never 2018 uatsdin services? Do you [...] Radiology Mark Eastman M.D., M.S. [address] [place] [phone] 04/26/2022 Office Visit Otorhinolaryngology Roxanne Lanza APRN, C.N.P. [address] [place] [phone] 04/28/2022 Appointment Radiation Oncology Ursula Aguirre M.D. [address] [place] [address] [phone] Scheduled Orders Name Type Priority Associated Diagnoses Order S chedule Management Visit Radiation Oncology Routine Malignant Neoplasm Of Once for 1 Supraglottic (HCC) Occurrenc es starting 04/04/2019 unti l 04/04/2019 documented as of this encounter Visit Diagnoses Diagnosis Malignant Neoplasm Of Supraglottic (HCC) documented in this encounter
--- OUTSIDE RECORDS SUMMARY | 2022-04-05 09:27 | XMS_ITS | Encounter Summary ---
:1955 Author Organization [facility] Address [address] [place] [address] Care Team Providers Name Role Phone Unavailable Primary Care Provider Unavailable Reason for Visit Radiation Therapy (Routine) - Closed Specialty Diagnoses / Procedures Referred By Contact Refer red To Contact Diagnoses Malignant Neoplasm Of Supraglottic (HCC) Ursula Aguirre M.D. [facility] Procedures Prior Auth Rad Tx [place] IMRT COMPLEX [address] [place] [address] [phone] Referral ID Status Reason Start Date Expiration Date Visits Requ ested Visits Authorized [id number] Closed 03/15/2019 03/14/2020 35 35 Encounter Details Date Type Department Care Team Description 04/11/2019 Hospital Encounter Department of Radiation Bud Aguirre I., Oncology in [place] [address] [facility] [address] [place] [phone] Social History Tobacco Use Types Packs/Day Years [...] do you attend hinduism or Never 2018 confucianist services? Do you [...] Radiology Mark Eastman M.D., M.S. [address] [place] [address] [phone] 04/26/2022 Office Visit Otorhinolaryngology Roxanne Lanza APRN, C.N.P. [address] [place] [address] [phone] 04/28/2022 Appointment Radiation Oncology Ursula Aguirre M.D. [address] [place] [address] [phone] documented as of this encounter Visit Diagnoses Not on filedocumented in this encounter
--- OUTSIDE RECORDS SUMMARY | 2022-04-05 09:27 | XMS_ITS | Encounter Summary ---
:1955 Author Organization [facility] Address [address] [place] [address] Care Team Providers Name Role Phone Unavailable Primary Care Provider Unavailable Reason for Referral Specialty Diagnoses / Procedures Referred By Contact Refer red To Contact Ursula Aguirre M.D. [facility] [address] [place] [phone] Referral ID Status Reason Start Date Expiration Date Visits Requ ested Visits Authorized Encounter Details Date Type Department Care Team Description 03/30/2019 Hospital Encounter Department of Mary Aguirre M.D. [address] [place] [phone] Malignant Neoplasm Of Radiation Oncology Jannet Cross R.N. [address] [place] [phone] Supraglottic (HCC) in [place], [place] [address] [place] [phone] Social History Tobacco Use Types Packs/Day Years [...] do you attend mandaen or Never 2018 temple services? Do you [...] Radiology Mark Eastman M.D., M.S. [address] [place] [phone] 04/26/2022 Office Visit Otorhinolaryngology Roxanne Lanza, DIVISION HEAD, C.N.P. [address] [place] [phone] 04/28/2022 Appointment Radiation Oncology Ursula Aguirre M.D. [address] [place] [phone] Scheduled Referrals Name Type Priority Associated Diagnoses Order S chedule Radiation Oncology Outpatient Referral Routine Malignant Neopl asm Once for 1 - Nurse education Of Supraglottic Occurre nces visit (clinic) (HCC) starting 03/15 until 9 documented as of this encounter Visit Diagnoses Diagnosis Malignant Neoplasm Of Supraglottic (HCC) documented in this encounter
--- OUTSIDE RECORDS SUMMARY | 2022-04-05 09:27 | XMS_ITS | Encounter Summary ---
:1955 Author Organization [facility] Address [address] [place] [address] Care Team Providers Name Role Phone Unavailable Primary Care Provider Unavailable Reason for Visit Radiation Therapy (Routine) - Closed Specialty Diagnoses / Procedures Referred By Contact Refer red To Contact Diagnoses Malignant Neoplasm Of Supraglottic (HCC) Ursula Aguirre M.D. [facility] Procedures Prior Auth Rad Tx [place] IMRT COMPLEX [address] [place] [address] [phone] Referral ID Status Reason Start Date Expiration Date Visits Requ ested Visits Authorized [id number] Closed 03/15/2019 03/14/2020 35 35 Encounter Details Date Type Department Care Team Description 04/10/2019 Hospital Encounter Department of Radiation Bud Aguirre I., Oncology in [place] [address] [facility] [address] [place] [phone] Social History Tobacco Use Types Packs/Day Years [...] you attend oriental orthodox or Never 2018 taoism services? Do you [...] Radiology Mark Eastman M.D., M.S. [address] [place] [phone] 04/26/2022 Office Visit Otorhinolaryngology Roxanne Lanza APRN, C.N.P. [address] [place] [address] [phone] 04/28/2022 Appointment Radiation Oncology Ursula Aguirre M.D. [address] [place] [phone] documented as of this encounter Visit Diagnoses Not on filedocumented in this encounter
--- OUTSIDE RECORDS SUMMARY | 2022-04-05 09:27 | XMS_ITS | Encounter Summary ---
:1955 Author Organization [facility] Address [address] [place] [address] 08347 Care Team Providers Name Role Phone Unavailable Primary Care Provider Unavailable Reason for Visit Radiation Therapy (Routine) - Closed Specialty Diagnoses / Procedures Referred By Contact Refer red To Contact Diagnoses Malignant Neoplasm Of Supraglottic (HCC) Ursula Aguirre M.D. [facility] Procedures Prior Auth Rad Tx [place] IMRT COMPLEX [address] [place] [address] [phone] Referral ID Status Reason Start Date Expiration Date Visits Requ ested Visits Authorized [id number] Closed 03/15/2019 03/14/2020 35 35 Encounter Details Date Type Department Care Team Description 04/06/2019 Hospital Encounter Department of Radiation Bud Aguirre I., [place]cology [place] 200 [address] [facility] [address] [place] [address] [phone] Social History Tobacco Use Types Packs/Day Years [...] do you attend buddhist or Never 2018 samaritan services? Do you belong to any clubs or No 02/21/2019 organizations such as buddhist groups, unions, fraEasy Ice or athletic groups, or school groups? How [...] Radiology Mark Eastman M.D., M.S. [address] [place] [phone] 04/26/2022 Office Visit Otorhinolaryngology Roxanne Lanza APRN, C.N.P. [address] [place] [phone] 04/28/2022 Appointment Radiation Oncology Ursula Aguirre M.D. [address] [place] [phone] documented as of this encounter Visit Diagnoses Not on filedocumented in this encounter
--- OUTSIDE RECORDS SUMMARY | 2022-04-05 09:27 | XMS_ITS | Encounter Summary ---
:1955 Author Organization [facility] Address [address] [place] [address] Care Team Providers Name Role Phone Unavailable Primary Care Provider Unavailable Reason for Referral Specialty Diagnoses / Procedures Referred By Contact Refer red To Contact Ursula Aguirre M.D. [facility] [address] [place] [address] [phone] Referral ID Status Reason Start Date Expiration Date Visits Requ ested Visits Authorized Encounter Details Date Type Department Care Team Description 03/30/2019 Hospital Encounter Department of Mary Aguirre M.D. [address] [place] [phone] Malignant Neoplasm Of Radiation Oncology Silke Garcia C.C.RShitalCShital Supraglottic (HCC) in [place], [place] [address] [place] [phone] Social History Tobacco Use Types Packs/Day Years [...] do you attend hinduism or Never 2018 christianity services? Do you [...] Chew 81 mg every 0 tablet evening. Smarp. Aspirin fluticasone propionate Administer 1 spray 0 [...] Radiology Mark Eastman M.D., M.S. [address] [place] [phone] 04/26/2022 Office Visit Otorhinolaryngology Roxanne Lanza APRN, C.N.P. [address] [place] [phone] 04/28/2022 Appointment Radiation Oncology Ursula Aguirre M.D. [address] [place] [phone] Scheduled Referrals Name Type Priority Associated Diagnoses Order S chedule Radiation Oncology Outpatient Referral Routine Malignant Neopl asm Once for 1 - PRO education Of Supraglottic Occurrenc es visit (HCC) starting 2018 until 9 documented as of this encounter Visit Diagnoses Diagnosis Malignant Neoplasm Of Supraglottic (HCC) documented in this encounter
--- OUTSIDE RECORDS SUMMARY | 2022-04-05 09:27 | XMS_ITS | Encounter Summary ---
:1955 Author Organization [facility] Address [address] [place] [address] 8[address] Care Team Providers Name Role Phone Unavailable Primary Care Provider Unavailable Reason for Visit Radiation Therapy (Routine) - Closed Specialty Diagnoses / Procedures Referred By Contact Refer red To Contact Diagnoses Malignant Neoplasm Of Supraglottic (HCC) Ursula Aguirre M.D. [facility] Procedures Prior Auth Rad Tx [place] IMRT COMPLEX [address] [place] [address] [phone] Referral ID Status Reason Start Date Expiration Date Visits Requ ested Visits Authorized [id number] Closed 03/15/2019 03/14/2020 35 35 Encounter Details Date Type Department Care Team Description 04/03/2019 Hospital Encounter Department of Radiation Bud Aguirre I., [place]cology [place] 200 [address] [email or web address] [address] [place] [address] [phone] Social History Tobacco Use Types Packs/Day Years [...] do you attend rastafarian or Never 2018 faith services? Do you belong to any clubs or No 02/21/2019 organizations such as rastafarian groups, unions, fraStonestreet One or athletic groups, or school groups? How [...] Radiology Mark Eastman M.D., M.S. [address] [place] [phone] 04/26/2022 Office Visit Otorhinolaryngology Roxanne Lanza APRN, C.N.P. [address] [place] [phone] 04/28/2022 Appointment Radiation Oncology Ursula Aguirre M.D. [address] [place] [phone] documented as of this encounter Visit Diagnoses Not on filedocumented in this encounter
--- OUTSIDE RECORDS SUMMARY | 2022-04-05 09:27 | XMS_ITS | Encounter Summary ---
:1955 Author Organization [facility] Address [address] [place] [address] Care Team Providers Name Role Phone Unavailable Primary Care Provider Unavailable Reason for Visit Radiation Therapy (Routine) - Closed Specialty Diagnoses / Procedures Referred By Contact Refer red To Contact Diagnoses Malignant Neoplasm Of Supraglottic (HCC) Ursula Aguirre M.D. [facility] Procedures Prior Auth Rad Tx [place] IMRT COMPLEX [address] [place] [address] [phone] Referral ID Status Reason Start Date Expiration Date Visits Requ ested Visits Authorized [id number] Closed 03/15/2019 03/14/2020 35 35 Encounter Details Date Type Department Care Team Description 04/05/2019 Hospital Encounter Department of Radiation Bud Aguirre I., [place]cology [place] [address] [facility] [address] [place] [phone] Social History Tobacco Use Types Packs/Day Years [...] do you attend mormon or Never 2018 voodoo services? Do you belong to any clubs or No 02/21/2019 organizations such as mormon groups, unions, fraPraekelt Foundation or athletic groups, or school groups? How [...] Radiology Mark Eastman M.D., M.S. [address] [place] [phone] 04/26/2022 Office Visit Otorhinolaryngology Roxanne Lanza APRN, C.N.P. [address] [place] [phone] 04/28/2022 Appointment Radiation Oncology Ursula Aguirre M.D. [address] [place] [phone] documented as of this encounter Visit Diagnoses Not on filedocumented in this encounter
--- OUTSIDE RECORDS SUMMARY | 2022-04-05 09:27 | XMS_ITS | Encounter Summary ---
:1955 Author Organization [facility] Address [address] [place] [address] Care Team Providers Name Role Phone Unavailable Primary Care Provider Unavailable Reason for Visit Radiation Therapy (Routine) - Closed Specialty Diagnoses / Procedures Referred By Contact Refer red To Contact Diagnoses Malignant Neoplasm Of Supraglottic (HCC) Ursula Aguirre M.D. [facility] Procedures Prior Auth Rad Tx [place] IMRT COMPLEX [address] [place] [address] [phone] Referral ID Status Reason Start Date Expiration Date Visits Requ ested Visits Authorized [id number] Closed 03/15/2019 03/14/2020 35 35 Encounter Details Date Type Department Care Team Description 04/06/2019 Hospital Encounter Department of Radiation Bud Aguirre I., [place]cology [place] 200 [address] [facility] [address] [place] [phone] [phone] Social History Tobacco Use Types Packs/Day Years [...] do you attend scientologist or Never 2018 denominational services? Do you belong to any clubs or No 02/21/2019 organizations such as scientologist groups, unions, fraFilterEasy or athletic groups, or school groups? How [...] Radiology Mark Eastman M.D., M.S. [address] [place] [phone] 04/26/2022 Office Visit Otorhinolaryngology Roxanne Lanza APRN, C.N.P. [address] [place] [phone] 04/28/2022 Appointment Radiation Oncology Ursula Aguirre M.D. [address] [place] [phone] documented as of this encounter Visit Diagnoses Not on filedocumented in this encounter
--- OUTSIDE RECORDS SUMMARY | 2022-04-05 09:27 | XMS_ITS | Encounter Summary ---
:1955 Author Organization [facility] Address [address] [place] [address] 15880 Care Team Providers Name Role Phone Unavailable Primary Care Provider Unavailable Reason for Visit Radiation Therapy (Routine) - Closed Specialty Diagnoses / Procedures Referred By Contact Refer red To Contact Diagnoses Malignant Neoplasm Of Supraglottic (HCC) Ursula Aguirre M.D. [facility] Procedures Prior Auth Rad Tx [place] IMRT COMPLEX [address] [place] [address] [phone] Referral ID Status Reason Start Date Expiration Date Visits Requ ested Visits Authorized [id number] Closed 03/15/2019 03/14/2020 35 35 Encounter Details Date Type Department Care Team Description 04/09/2019 Hospital Encounter Department of Radiation Bud Aguirre I., [place]cology [place] 200 [address] [facility] [address] [place] [phone] Social History Tobacco Use Types Packs/Day Years [...] do you attend anabaptism or Never 2018 yarsani services? Do you belong to any clubs or No 02/21/2019 organizations such as anabaptism groups, unions, fraUnderground Solutions or athletic groups, or school groups? How [...] Radiology Mark Eastman M.D., M.S. [address] [place] [phone] 04/26/2022 Office Visit Otorhinolaryngology Roxanne Lanza APRN, C.N.P. [address] [place] [phone] 04/28/2022 Appointment Radiation Oncology Ursula Aguirre M.D. [address] [place] [phone] documented as of this encounter Visit Diagnoses Not on filedocumented in this encounter
--- OUTSIDE RECORDS SUMMARY | 2022-04-05 09:27 | XMS_ITS | Encounter Summary ---
:1955 Author Organization [facility] Address [address] [place] [address] Care Team Providers Name Role Phone Unavailable Primary Care Provider Unavailable Encounter Details Date Type Department Care Team Description 04/09/2019 Orders Only Department of Jannet Cross, Malignant Neoplasm Of Radiation Oncology in [place] Supraglottic (HCC) [facility] 200 [address] [facility] (Primary Dx) [address] [place] [phone] Social History Tobacco Use Types Packs/Day Years [...] do you attend hinduism or Never 2018 congregational services? Do you [...] Radiology Mark Eastman M.D., M.S. [address] [place] [phone] 04/26/2022 Office Visit Otorhinolaryngology Roxanne Lanza APRN, C.N.P. [address] [place] [phone] 04/28/2022 Appointment Radiation Oncology Ursula Aguirre M.D. [address] [place] [phone] documented as of this encounter Visit Diagnoses Diagnosis Malignant Neoplasm Of Supraglottic (HCC) - Primary documented in this encounter
--- OUTSIDE RECORDS SUMMARY | 2022-04-05 09:27 | XMS_ITS | Encounter Summary ---
:1955 Author Organization [facility] Address [address] [place] [address] Care Team Providers Name Role Phone Unavailable Primary Care Provider Unavailable Reason for Referral Radiation Therapy (Routine) - Canceled Specialty Diagnoses / Procedures Referred By Contact Refer red To Contact Diagnoses Malignant Neoplasm Of Supraglottic (HCC) Ursula Aguirre M.D. [facility] Procedures Management Visit [address] [place] [address] [phone] Referral ID Status Reason Start Date Expiration Date Visits V isits Requested Authorized [id number] Canceled 04/09/2019 04/08/2020 10 10 Reason for Visit Radiation Therapy (Routine) - Canceled Specialty Diagnoses / Procedures Referred By Contact Refer red To Contact Diagnoses Malignant Neoplasm Of Supraglottic (HCC) Ursula Aguirre M.D. [facility] Procedures Management Visit [address] [place] [address] [phone] Referral ID Status Reason Start Date Expiration Date Visits V isits Requested Authorized [id number] Canceled 04/09/2019 04/08/2020 10 10 Encounter Details Date Type Department Care Team Description 04/09/2019 Hospital Encounter Department of Ursula Aguirre Neoplasm Of Radiation Oncology Kimberley Bacon Supraglottic (HCC) in [place], [address] [place], [place] 18[address] [facility] [address] [place], [place] [phone] (Work) [phone] Social History Tobacco Use Types Packs/Day Years [...] do you attend orthodoxy or Never 2018 scientologist services? Do you [...] Radiology Mark Eastman M.D., M.S. [address] [place] [phone] 04/26/2022 Office Visit Otorhinolaryngology Roxanne Lanza, RADIAL DRILL PRESS SET UP OPERATOR, C.N.P. [address] [place] [phone] 04/28/2022 Appointment Radiation Oncology Ursula Aguirre M.D. [address] [place] [phone] Scheduled Orders Name Type Priority Associated Diagnoses Order S chedule Management Visit Radiation Oncology Routine Malignant Neoplasm Of Once for 1 Supraglottic (HCC) Occurrenc es starting 04/09/2019 unti l 04/09/2019 documented as of this encounter Visit Diagnoses Diagnosis Malignant Neoplasm Of Supraglottic (HCC) documented in this encounter
--- OUTSIDE RECORDS SUMMARY | 2022-04-05 09:27 | XMS_ITS | Encounter Summary ---
:1955 Author Organization [facility] Address [address] [place] [address] 48983 Care Team Providers Name Role Phone Unavailable Primary Care Provider Unavailable Reason for Referral Outpatient (Routine) - Closed Specialty Diagnoses / Procedures Referred By Contact Refer red To Contact Nutrition Diagnoses Malignant Neoplasm Of Supraglottic (HCC) Summer Pérez P.A.-C., [facility] [address] [place] [phone] Referral ID Status Reason Start Date Expiration Date Visits Requ ested Visits Authorized [id number] Closed 03/29/2019 03/28/2020 1 1 Reason for Visit Outpatient (Routine) - Closed Specialty Diagnoses / Procedures Referred By Contact Refer red To Contact Nutrition Diagnoses Malignant Neoplasm Of Supraglottic (HCC) Summer Pérez P.A.-C., [facility] [address] [place] [phone] Referral ID Status Reason Start Date Expiration Date Visits Requ ested Visits Authorized [id number] Closed 03/29/2019 03/28/2020 1 1 Encounter Details Date Type Department Care Team Description 04/05/2019 Hospital Encounter Department of Summer Pérez P.A.-C., M.S. [address] [place] [phone] Malignant Neoplasm Of Radiation Oncology Ryanne Mcbride, JUANITO [address] [place] [address] Supraglottic (HCC) in [place], [place] [address] [place] [address] Social History Tobacco Use Types [...] do you attend mu-ism or Never 2018 druze services? 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 Nutrition Prescription/Recommendation 6385-1741 kcals, 88-105 grams protein, 9+ cups fluid [...] Radiology Mark Eastman M.D., M.S. [address] [place] [phone] 04/26/2022 Office Visit Otorhinolaryngology Roxanne Lanza APRN, C.N.P. [address] [place] [phone] 04/28/2022 Appointment Radiation Oncology Ursula Aguirre M.D. [address] [place] [phone] Scheduled Referrals Name Type Priority Associated Diagnoses Order S chedule Nutrition - Outpatient Referral Routine Malignant Neoplasm On ce for 1 Medical nutrition Of Supraglottic Occurre nces therapy consult (HCC) starting (clinic) until 9 documented as of this encounter Visit Diagnoses Diagnosis Malignant Neoplasm Of Supraglottic (HCC) documented in this encounter
--- OUTSIDE RECORDS SUMMARY | 2022-04-05 09:27 | XMS_ITS | Encounter Summary ---
:1955 Author Organization [facility] Address [address] [place] [address] Care Team Providers Name Role Phone Unavailable Primary Care Provider Unavailable Reason for Visit Radiation Therapy (Routine) - Closed Specialty Diagnoses / Procedures Referred By Contact Refer red To Contact Diagnoses Malignant Neoplasm Of Supraglottic (HCC) Ursula Aguirre M.D. [facility] Procedures Prior Auth Rad Tx [place] IMRT COMPLEX [address] [place] [address] [phone] Referral ID Status Reason Start Date Expiration Date Visits Requ ested Visits Authorized [id number] Closed 03/15/2019 03/14/2020 35 35 Encounter Details Date Type Department Care Team Description 04/04/2019 Hospital Encounter Department of Radiation Bud Aguirre I., [place]cology [place] 200 [address] [facility] [address] [place] [address] [phone] Social History Tobacco Use Types Packs/Day Years [...] do you attend alevism or Never 2018 adventism services? Do you belong to any clubs or No 02/21/2019 organizations such as alevism groups, unions, fraMetric Medical Devices or athletic groups, or school groups? How [...] Radiology Mark Eastman M.D., M.S. [address] [place] [phone] 04/26/2022 Office Visit Otorhinolaryngology Roxanne Lanza APRN, C.N.P. [address] [place] [phone] 04/28/2022 Appointment Radiation Oncology Ursula Aguirre M.D. [address] [place] [phone] documented as of this encounter Visit Diagnoses Not on filedocumented in this encounter
--- OUTSIDE RECORDS SUMMARY | 2022-04-05 09:27 | XMS_ITS | Encounter Summary ---
:1955 Author Organization [facility] Address [address] [place] [address] Care Team Providers Name Role Phone Unavailable Primary Care Provider Unavailable Reason for Referral Outpatient (Routine) - Canceled Specialty Diagnoses / Procedures Referred By Contact Refer red To Contact Radiation Oncology Diagnoses Malignant Neoplasm Of Supraglottic (HCC) Ursula Aguirre [facility] [place] [facility] M.D. 200 [place] [address] Referral ID Status Reason Start Date Expiration Date Visits V isits Requested Authorized [id number] Canceled 03/15/2019 03/14/2020 1 1 Reason for Visit Outpatient (Routine) - Canceled Specialty Diagnoses / Procedures Referred By Contact Refer red To Contact Radiation Oncology Diagnoses Malignant Neoplasm Of Supraglottic (HCC) Ursula Aguirre [facility] [place] [facility] M.D. 200 [place] [address] Referral ID Status Reason Start Date Expiration Date Visits V isits Requested Authorized [id number] Canceled 03/15/2019 03/14/2020 1 1 Encounter Details Date Type Department Care Team Description 04/06/2019 Hospital Encounter Department of Mary Aguirre M.D. [address] [place] [phone] Malignant Neoplasm Of Radiation Oncology Jannet Cross R.N. 200 [place] [address] Supraglottic (HCC) in [place], [place] [address] [place] [phone] Social History Tobacco Use Types Packs/Day Years [...] do you attend alevism or Never 2018 scientologist services? Do you [...] Radiology Mark Eastman M.D., M.S. [address] [place] [phone] 04/26/2022 Office Visit Otorhinolaryngology Roxanne Lanza APRN, C.N.P. [address] [place] [phone] 04/28/2022 Appointment Radiation Oncology Urusla Aguirre M.D. [address] [place] [phone] Scheduled Referrals Name Type Priority Associated Diagnoses Order S chedule Radiation Oncology Outpatient Referral Routine Malignant Neopl asm Once for 1 nurse visit Of Supraglottic Occurrences (clinic) (HCC) starting 2018 until 9 documented as of this encounter Visit Diagnoses Diagnosis Malignant Neoplasm Of Supraglottic (HCC) documented in this encounter
--- OUTSIDE RECORDS SUMMARY | 2022-04-05 09:28 | XMS_ITS | Encounter Summary ---
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 [facility] Procedures CT Abdomen Pelvis Angiogram with IV Contrast CT Abdomen Angiogram with IV Contrast MT CTA ABDOMEN WO/W CNTRST HC CTA ABDOMEN WO/W CNTRST MT CTA ABDOMEN WO/W CNTRST [address] [place] [address], [place] [address] Referral ID Status Reason Start Date Expiration Date Visits Requ ested Visits Authorized [id number] Closed 03/19/2019 03/18/2020 1 1 Encounter Details Date Type Department Care Team Description 03/20/2019 Hospital Encounter Department of Francisca Tapia, Aneurysm Abdominal Radiology, Brenda Chu, Ph.D. Aortic Without Building, in [address] Rupture (HCC) [facility] [address] [place] [phone] Social History Tobacco Use Types Packs/Day Years [...] do you attend holiness or Never 2018 lutheran services? Do you belong to any clubs or No 02/21/2019 organizations such as holiness groups, unions, fraeSeekers or athletic groups, or school groups? How [...] Radiology Mark Eastman M.D., M.S. [address] [place] [phone] 04/26/2022 Office Visit Otorhinolaryngology Roxanne Lanza APRN, C.N.P. [address] [place] [phone] 04/28/2022 Appointment Radiation Oncology Ursula Aguirre M.D. [address] [place] [phone] documented as of this encounter Procedures Procedure [...]
--- OUTSIDE RECORDS SUMMARY | 2022-04-05 09:28 | XMS_ITS | Encounter Summary ---
:1955 Author Organization [facility] Address [address] [place] [address]155 Care Team Providers Name Role Phone Unavailable Primary Care Provider Unavailable Reason for Referral Radiation Therapy (Routine) - Canceled Specialty Diagnoses / Procedures Referred By Contact Refer red To Contact Diagnoses Malignant Neoplasm Of Supraglottic (HCC) Ursula Aguirre M.D. [facility] Procedures Management Visit [address] [place] [address] [phone] Referral ID Status Reason Start Date Expiration Date Visits V isits Requested Authorized [id number] Canceled 03/15/2019 03/14/2020 1 1 Reason for Visit Radiation Therapy (Routine) - Canceled Specialty Diagnoses / Procedures Referred By Contact Refer red To Contact Diagnoses Malignant Neoplasm Of Supraglottic (HCC) Ursula Aguirre M.D. [facility] Procedures Management Visit [address] [place] [address] [phone] Referral ID Status Reason Start Date Expiration Date Visits V isits Requested Authorized [id number] Canceled 03/15/2019 03/14/2020 1 1 Encounter Details Date Type Department Care Team Description 03/28/2019 Hospital Encounter Department of Peter Schultz Neoplasm Of Radiation Oncology Jose Serna M.D. Supraglottic (HCC) in [place], [address] [place], [place] 1821 [facility] [address] [place], [place] [phone] (Work) [phone] Social History Tobacco Use Types Packs/Day Years [...] do you attend uatsdin or Never 2018 druze services? Do you [...] Supraglottic (HCC) SUPERVISED BY: Jose Schultz M.D. ([id number]) HISTORY OF PRESENT ILLNESS Obdulia Narayan is [...] by: Jose Schultz M.D. 03/28/2019 5:27 PM [facility] [address] [place] [address] documented in this encounter Plan of Treatment Upcoming Encounters Date Type Specialty Care Team Description 04/22/2022 Clinical Admitting/Central Communication Scheduling 04/26/2022 Appointment Radiology Mark Eastman M.D., M.S. [address] [place] [address] [phone] 04/26/2022 Office Visit Otorhinolaryngology Roxanne Lanza, TRICK RODEO RIDER, C.N.P. [address] [place] [address] [phone] 04/28/2022 Appointment Radiation Oncology Ursula Aguirre M.D. [address] [place] [phone] Scheduled Orders Name Type Priority Associated Diagnoses Order S chedule Management Visit Radiation Oncology Routine Malignant Neoplasm Of Once for 1 Supraglottic (HCC) Occurrenc es starting 03/28/2019 unti l 03/28/2019 documented as of this encounter Visit Diagnoses Diagnosis Malignant Neoplasm Of Supraglottic (HCC) documented in this encounter
--- OUTSIDE RECORDS SUMMARY | 2022-04-05 09:28 | XMS_ITS | Encounter Summary ---
:1955 Author Organization [facility] Address [address] [place] [address] 35254 Care Team Providers Name Role Phone Unavailable Primary Care Provider Unavailable Reason for Referral Radiation Therapy (Routine) - Closed Specialty Diagnoses / Procedures Referred By Contact Refer red To Contact Diagnoses Malignant Neoplasm Of Supraglottic (HCC) Ursula Aguirre M.D. [facility] Procedures Initial Rad Onc Treatment Planning CT Simulation [address] [place] [phone] Referral ID Status Reason Start Date Expiration Date Visits Requ ested Visits Authorized [id number] Closed 03/15/2019 03/14/2020 1 1 Reason for Visit Radiation Therapy (Routine) - Closed Specialty Diagnoses / Procedures Referred By Contact Refer red To Contact Diagnoses Malignant Neoplasm Of Supraglottic (HCC) [facility].D. [facility] Procedures Initial Rad Onc Treatment Planning CT Simulation [address] [place] [address] [phone] Referral ID Status Reason Start Date Expiration Date Visits Requ ested Visits Authorized [id number] Closed 03/15/2019 03/14/2020 1 1 Encounter Details Date Type Department Care Team Description 03/16/2019 Hospital Encounter Department of Ursula Aguirre Neoplasm Of Radiation Oncology Kimberley Bacon Supraglottic (HCC) in [place], [address] [place], [place] 1821 [facility] [address] [place], [place] [phone] (Work) [phone] Social History Tobacco Use Types Packs/Day Years [...] do you attend buddhist or Never 2018 catholic services? Do you [...] DETAILS Patient position: supine Arm/Hand position: holding Locomotive Engineer Diesel Ring Custom immobilization device: 5 point thermoplastic [...] Radiology Mark Eastman M.D., M.S. [address] [place] [phone] 04/26/2022 Office Visit Otorhinolaryngology Roxanne Lanza APRN, C.N.P. [address] [place] [phone] 04/28/2022 Appointment Radiation Oncology Ursula Aguirre M.D. [address] [place] [phone] documented as of this encounter Procedures Procedure [...] ?? Patient position: supine Arm/Hand position: holding Locomotive Engineer Diesel Ring ?? Custom immobilization device: 5 point [...]
--- OUTSIDE RECORDS SUMMARY | 2022-04-05 09:28 | XMS_ITS | Encounter Summary ---
:1955 Author Organization [facility] Address [address] [place] [address]647 Care Team Providers Name Role Phone Unavailable Primary Care Provider Unavailable Reason for Visit Radiation Therapy (Routine) - Closed Specialty Diagnoses / Procedures Referred By Contact Refer red To Contact Diagnoses Malignant Neoplasm Of Supraglottic (HCC) Ursula Aguirre M.D. [facility] Procedures Prior Auth Rad Tx [place] IMRT COMPLEX [address] [place] [address] [phone] Referral ID Status Reason Start Date Expiration Date Visits Requ ested Visits Authorized [id number] Closed 03/15/2019 03/14/2020 35 35 Encounter Details Date Type Department Care Team Description 03/30/2019 Hospital Encounter Department of Radiation Bud Aguirre I., [place]cology [place] [address] [facility] 1821 [place] [phone] Social History Tobacco Use Types Packs/Day Years [...] do you attend congregational or Never 2018 caodaism services? Do you belong to any clubs or No 02/21/2019 organizations such as congregational groups, unions, fraChiasma or athletic groups, or school groups? How [...] Radiology Mark Eastman M.D., M.S. [address] [place] [phone] 04/26/2022 Office Visit Otorhinolaryngology Roxanne Lanza APRN, C.N.P. [address] [place] [phone] 04/28/2022 Appointment Radiation Oncology Ursula Aguirre M.D. [address] [place] [phone] documented as of this encounter Visit Diagnoses Not on filedocumented in this encounter
--- OUTSIDE RECORDS SUMMARY | 2022-04-05 09:28 | XMS_ITS | Encounter Summary ---
:1955 Author Organization [facility] Address [address] [place] [address] 85953 Care Team Providers Name Role Phone Unavailable Primary Care Provider Unavailable Encounter Details Date Type Department Care Team Description 03/16/2019 Clinical Communication Department of Arlette, Radiation Oncology in [facility] 1821 [place] [phone] Social History Tobacco Use Types Packs/Day Years [...] do you attend yazidism or Never 2018 gnosticism services? Do you [...] a CT of the abdomen performed in [place] this morning and asked if she would [...] need to reschedule the MRI? Phone number: [phone] Is it okay to leave a voicemail on answering machine with test results? Yes Pharmacy (if medication related): [facility] [address] [place] [address] 150 [facility] [address] Taylor Chong documented in this encounter Plan of Treatment Upcoming Encounters Date Type Specialty Care Team Description 04/22/2022 Clinical Admitting/Central Communication Scheduling 04/26/2022 Appointment Radiology Mark Eastman M.D., M.S. [address] [place] [phone] 04/26/2022 Office Visit Otorhinolaryngology Roxanne Lanza APRN, C.N.P. [address] [place] [address] [phone] 04/28/2022 Appointment Radiation Oncology Ursula Aguirre M.D. [address] [place] [address] [phone] documented as of this encounter Visit Diagnoses Not on filedocumented in this encounter
--- OUTSIDE RECORDS SUMMARY | 2022-04-05 09:28 | XMS_ITS | Encounter Summary ---
:1955 Author Organization [facility] Address [address] [place] [address] Care Team Providers Name Role Phone Unavailable Primary Care Provider Unavailable Reason for Referral Outpatient (Routine) - Closed Specialty Diagnoses / Procedures Referred By Contact Refer red To Contact Radiation Oncology Diagnoses Malignant Neoplasm Of Supraglottic (HCC) Francisca Tapia M.D., INDRA mas Ph.D. [address] [place] [address], [address], [place] [address] Referral ID Status Reason Start Date Expiration Date Visits Requ ested Visits Authorized [id number] Closed 03/15/2019 03/14/2020 1 1 Scheduling Instructions Please schedule with Dr. Aguirre. Reason for Visit Outpatient (Routine) - Closed Specialty Diagnoses / Procedures Referred By Contact Refer red To Contact Radiation Oncology Diagnoses Malignant Neoplasm Of Supraglottic (HCC) Francisca Tapia M.D., INDRA mas Ph.D. [address] , [address] [place], [place] [address] Referral ID Status Reason Start Date Expiration Date Visits Requ ested Visits Authorized [id number] Closed 03/15/2019 03/14/2020 1 1 Encounter Details Date Type Department Care Team Description 03/16/2019 Hospital Encounter Department of Ursula Aguirre Neoplasm Of Radiation Oncology Kimberley Bacon Supraglottic (HCC) in [place] [address] [address] [place], [place] 1821 [facility] [address] [place], [place] [phone] (Work) [phone] Social History Tobacco Use Types Packs/Day Years [...] you attend latter day or Never 2018 spiritism services? Do you [...] Ph.D. and Dr. Cecilio Love, Radiation Oncology, [place], [place] PRIMARY PROVIDER Dr. Swapna De La Fuente REASON FOR CONSULT 1. Malignant Neoplasm Of Supraglottic HISTORY OF PRESENT ILLNESS #1 Malignant Neoplasm Of Supraglottic Mrs. 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 Her oncologic history was [...] 2019: Appointment with Dr. Darryl Grayson???Rasta at [facility]. Physical examination with flexible laryngoscopy revealed a large fungating mass overlying the posterior left arytenoidthat appeared fairly extensive, extending over to the right arytenoid into the piriform sinus. Vocal cords move normally. Patient did have some shotty adenopathy on the left side. Ordered CT scan and then arrange referral to [facility]. 4. February 12, 2019: CT scan of [...] Hung Mabry and Dr. Frank Arrieta at [facility]. Physical examination revealed an [...] will be referred to Radiation Oncology in [place]. 8. March 13, 2019: Follow-up appointment with Dr. Arrieta and Dr. Mabry who discussed treatment options including total laryngectomy versus radiation therapy. They were not able to offer partial laryngectomy given her lung disease and possible aspiration. 9. March 15, 2019: Phone call with Dr. Tapia with the patient's [id number] reported that the patient had decided to undergo radiation treatment in [place]. She will have a follow-up abdominal MRI at [place]. The patient will follow-up with her primary [...] ligation, 1984 SOCIAL HISTORY She lives in [place], [place] with one of her sons and [id number]. She will live in [place] with a different son during the week (Tuesday thru Tuesday). She is . She has 4 sons, 10 grand children and 2 great grandchildren. 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 She is a current [...] patient and her family (3 sons, 1 [id number] and one grand daughter). We discussed her [...] We discussed the acute as well as long-term risks, including, but not limited to fatigue, skin erythema, skin desquamation, temporary loss of voice, thick saliva, swallowing difficulties and pain as well as the marine oil terminal superintendent risks for xerostomia, hypothyroidism, osteoradionecrosis or cartilage [...] She will be having an MRI in [place] to evaluate the bilateral adrenal enlargement. We discussed obtaining a swallowing study in [place]. We will have her see our research test engine operator and social work supervisor here in [place]. She is edentulous, so I will not [...] Aguirre M.D. 03/16/2019 11:50 AM Radiation Oncology [facility] [address] [place], [place] [phone] documented in this encounter Plan of Treatment Upcoming Encounters Date Type Specialty Care Team Description 04/22/2022 Clinical Admitting/Central Communication Scheduling 04/26/2022 Appointment Radiology Mark Eastman M.D., M.S. [address] [place] [phone] 04/26/2022 Office Visit Otorhinolaryngology Roxanne Lanza, PRODUCT SUPPORT CONSULTANT, C.N.P. [address] [place] [phone] 04/28/2022 Appointment Radiation Oncology Ursula Aguirre M.D. [address] [place] [address] [phone] Scheduled Referrals Name Type Priority Associated Diagnoses Order S chedule Radiation Oncology Outpatient Referral Routine Malignant Neopl asm Once for 1 - Head / neck Of Supraglottic Occurrences consult (clinic) (HCC) starting until 9 documented as of this encounter Visit Diagnoses Diagnosis Malignant Neoplasm Of Supraglottic (HCC) documented in this encounter
--- OUTSIDE RECORDS SUMMARY | 2022-04-05 09:28 | XMS_ITS | Encounter Summary ---
:1955 Author Organization [facility] Address [address] [place] [address] 6[address] Care Team Providers Name Role Phone Unavailable Primary Care Provider Unavailable Reason for Visit Radiation Therapy (Routine) - Closed Specialty Diagnoses / Procedures Referred By Contact Refer red To Contact Diagnoses Malignant Neoplasm Of Supraglottic (HCC) Ursula Aguirre M.D. [facility] Procedures Prior Auth Rad Tx [place] IMRT COMPLEX [address] [place] [address] [phone] Referral ID Status Reason Start Date Expiration Date Visits Requ ested Visits Authorized [id number] Closed 03/15/2019 03/14/2020 35 35 Encounter Details Date Type Department Care Team Description 03/29/2019 Hospital Encounter Department of Radiation Bud Aguirre I., [place] [address] [facility] 1821 [place] [phone] Social History Tobacco Use Types Packs/Day Years [...] do you attend voodoo or Never 2018 restoration services? Do you belong to any clubs or No 02/21/2019 organizations such as voodoo groups, unions, fraApplied NanoWorks or athletic groups, or school groups? How [...] Radiology Mark Eastman M.D., M.S. [address] [place] [phone] 04/26/2022 Office Visit Otorhinolaryngology Roxanne Lanza APRN, C.N.P. [address] [place] [phone] 04/28/2022 Appointment Radiation Oncology Ursula Aguirre M.D. [address] [place] [phone] documented as of this encounter Visit Diagnoses Not on filedocumented in this encounter
--- OUTSIDE RECORDS SUMMARY | 2022-04-05 09:28 | XMS_ITS | Encounter Summary ---
:1955 Author Organization [facility] Address [address] [place] [address]81 Care Team Providers Name Role Phone Unavailable Primary Care Provider Unavailable Reason for Referral Radiation Therapy (Routine) - Canceled Specialty Diagnoses / Procedures Referred By Contact Refer red To Contact Diagnoses Malignant Neoplasm Of Supraglottic (HCC) Ursula Aguirre M.D. [facility] Procedures Management Visit [address] [place] [address] [phone] Referral ID Status Reason Start Date Expiration Date Visits V isits Requested Authorized [id number] Canceled 03/15/2019 03/14/2020 1 1 Reason for Visit Radiation Therapy (Routine) - Canceled Specialty Diagnoses / Procedures Referred By Contact Refer red To Contact Diagnoses Malignant Neoplasm Of Supraglottic (HCC) Ursula Aguirre M.D. [facility] Procedures Management Visit [address] [place] [address] [phone] Referral ID Status Reason Start Date Expiration Date Visits V isits Requested Authorized [id number] Canceled 03/15/2019 03/14/2020 1 1 Encounter Details Date Type Department Care Team Description 03/29/2019 Hospital Encounter Department of Peter Schultz Neoplasm Of Radiation Oncology Jose Serna M.D. Supraglottic (HCC) in [place], [address] [place], [place] 1821 [facility] [address] [place], [place] [phone] (Work) [phone] Social History Tobacco Use Types Packs/Day Years [...] Supraglottic (HCC) SUPERVISED BY: Jose Schultz M.D. ([id number]) HISTORY OF PRESENT ILLNESS Ms. Obdulia Narayan [...] Radiology Mark Eastman M.D., M.S. [address] [place] [phone] 04/26/2022 Office Visit Otorhinolaryngology Roxanne Lanza APRN, C.N.P. [address] [place] [phone] 04/28/2022 Appointment Radiation Oncology Ursula Aguirre M.D. [address] [place] [phone] Scheduled Orders Name Type Priority Associated Diagnoses Order S chedule Management Visit Radiation Oncology Routine Malignant Neoplasm Of Once for 1 Supraglottic (HCC) Occurrenc es starting 03/29/2019 unti l 03/29/2019 documented as of this encounter Visit Diagnoses Diagnosis Malignant Neoplasm Of Supraglottic (HCC) documented in this encounter
--- OUTSIDE RECORDS SUMMARY | 2022-04-05 09:28 | XMS_ITS | Encounter Summary ---
:1955 Author Organization [facility] Address [address] [place] [address] Care Team Providers Name Role Phone Unavailable Primary Care Provider Unavailable Reason for Visit Outpatient (Routine) - Closed Specialty Diagnoses / Procedures Referred By Contact Refer red To Contact Vascular Surgery Diagnoses Aneurysm Abdominal Aortic Without Rupture (HCC) Francisca Tapia M.D., [facility] Ph.D. [address] [place] [address] 101 [place], [place] [address] Referral ID Status Reason Start Date Expiration Date Visits Requ ested Visits Authorized [id number] Closed 03/19/2019 03/18/2020 1 1 Encounter Details Date Type Department Care Team Description 03/27/2019 Comprehensive Visit Division of Vascular [place], Aneurysm Abdominal and Endovascular Gael Cisneros M.D. Aortic Without Surgery in [address] [facility], Rupture (HCC ) [place], [place] [address] [facility], [place] [address] [phone] Social History Tobacco Use Types Packs/Day Years [...] you attend latter day or Never 2018 orthodoxy services? Do you [...] REFERRING PHYSICIAN: Francisca Tapia M.D., Ph.D. [address] [place] [phone] REASON FOR CONSULT: 5 cm infrarenal abdominal [...] Radiology Mark Eastman M.D., M.S. [address] [place] [phone] 04/26/2022 Office Visit Otorhinolaryngology Roxanne Lanza APRN, C.N.P. [address] [place] [phone] 04/28/2022 Appointment Radiation Oncology Ursula Aguirre M.D. [address] [place] [phone] documented as of this encounter Visit Diagnoses Diagnosis Aneurysm Abdominal Aortic Without Ruptur e (HCC) documented in this encounter
--- OUTSIDE RECORDS SUMMARY | 2022-04-05 09:28 | XMS_ITS | Encounter Summary ---
:1955 Author Organization [facility] Address [address] [place] [address] Care Team Providers Name Role Phone Unavailable Primary Care Provider Unavailable Reason for Referral Radiation Therapy (Routine) - Closed Specialty Diagnoses / Procedures Referred By Contact Refer red To Contact Diagnoses Malignant Neoplasm Of Supraglottic (HCC) Ursula Aguirre M.D. [facility] Region Procedures Initial Rad Onc Treatment Planning CT Simulation [address] [place] [phone] Referral ID Status Reason Start Date Expiration Date Visits Requ ested Visits Authorized [id number] Closed 03/15/2019 03/14/2020 1 1 Specialty Diagnoses / Procedures Referred By Contact Refer red To Contact Ursula Aguirre M.D. [facility] [address] [place] [address] [phone] Referral ID Status Reason Start Date Expiration Date Visits Requ ested Visits Authorized Outpatient (Routine) - Closed Specialty Diagnoses / Procedures Referred By Contact Refer red To Contact Social Work Ursula Aguirre M.D. [facility] [address] [place] [address] [phone] Referral ID Status Reason Start Date Expiration Date Visits Requ ested Visits Authorized [id number] Closed 03/15/2019 03/14/2020 1 1 Outpatient (Routine) - Closed Specialty Diagnoses / Procedures Referred By Contact Refer red To Contact Nutrition Diagnoses Malignant Neoplasm Of Supraglottic (HCC) Ursula Aguirre M.D. [facility] [address] [place], [place] 384290[address] Referral ID Status Reason Start Date Expiration Date Visits Requ ested Visits Authorized [id number] Closed 03/15/2019 03/14/2020 1 1 Specialty Diagnoses / Procedures Referred By Contact Refer red To Contact Ursula Aguirre M.D. [facility] [address] [place], [place] [phone] Referral ID Status Reason Start Date Expiration Date Visits Requ ested Visits Authorized Radiation Therapy (Routine) - Closed Specialty Diagnoses / Procedures Referred By Contact Refer red To Contact Diagnoses Malignant Neoplasm Of Supraglottic (HCC) Ursula Aguirre M.D. [facility] Procedures Prior Auth Rad Tx [place] IMRT COMPLEX [address] [place], [place] [phone] Referral ID Status Reason Start Date Expiration Date Visits Requ ested Visits Authorized [id number] Closed 03/15/2019 03/14/2020 35 35 Encounter Details Date Type Department Care Team Description 03/15/2019 Orders Only Department of Ursula Aguirre N eoplasm Of Radiation Oncology in [place] Supraglottic (HCC) [facility] [address] [facility] (Primary Dx) [address] [place] [address] [phone] Social History Tobacco Use Types Packs/Day Years [...] do you attend mandaen or Never 2018 gnosticism services? Do you [...] Radiology Mark Eastman M.D., M.S. [address] [place] [phone] 04/26/2022 Office Visit Otorhinolaryngology Roxanne Lanza, TRIPPER, C.N.P. [address] [place] [phone] 04/28/2022 Appointment Radiation Oncology Ursula Aguirre M.D. [address] [place] [phone] Scheduled Orders Name Type Priority Associated Diagnoses Order S chedule Prior Auth Rad Radiation Oncology Routine Malignant Neoplasm O f Ordered: Tx Supraglottic (HCC) 9 Scheduled Referrals Name Type Priority Associated Diagnoses Order S chedule Radiation Oncology Outpatient Referral Routine Malignant Neopl asm Of Expected: - PRO education Supraglottic ([facility]) 2018 visit (Approximate), Expires: 03/15/2022 Nutrition - Medical Outpatient Referral Routine Malignant Neop lasm Of Expected: nutrition therapy Supraglottic ([facility]) 08/2018 consult (clinic) (Approximat e), Expires: 03/15/2020 Social Work office Outpatient Referral Routine Ex pected: visit (clinic) 03/15/2019 (Approximate), Expires: 03/15/2020 Radiation Oncology Outpatient Referral Routine Malignant Neopl asm Of Expected: - Nurse education Supraglottic ([facility]) 08/2018 visit (clinic) (Approximate) , Expires: 03/15/2020 [...] ?? Patient position: supine Arm/Hand position: holding Fish Technologist Ring ?? Custom immobilization device: 5 point [...]
--- OUTSIDE RECORDS SUMMARY | 2022-04-05 09:28 | XMS_ITS | Encounter Summary ---
:1955 Author Organization [facility] Address [address] [place] [address] Care Team Providers Name Role Phone Unavailable Primary Care Provider Unavailable Reason for Referral Outpatient (Routine) - Closed Specialty Diagnoses / Procedures Referred By Contact Refer red To Contact Vascular Surgery Diagnoses Aneurysm Abdominal Aortic Without Rupture (HCC) Francisca Tapia M.D., [facility] Ph.D. [address] [place] [address], [place] 57[address] 4 Referral ID Status Reason Start Date Expiration Date Visits Requ ested Visits Authorized [id number] Closed 03/19/2019 03/18/2020 1 1 Encounter Details Date Type Department Care Team Description 03/19/2019 Orders Only Department of Radiation Francisca Tapia, Aneu [facility] Abdominal Oncology in [place], Ph. D. Aortic Without Rupture [place] [address] [place] [address], (HCC) (Primary Dx) [address] [place] [address] Social History Tobacco Use Types Packs/Day Years [...] do you attend mu-ism or Never 2018 anabaptist services? Do you [...] Radiology Mark Eastman M.D., M.S. [address] [place] [phone] 04/26/2022 Office Visit Otorhinolaryngology Roxanne Lanza APRN, C.N.P. [address] [place] [address] [phone] 04/28/2022 Appointment Radiation Oncology Ursula Aguirre M.D. [address] [place] [address] [phone] Scheduled Referrals Name Type Priority Associated Diagnoses Order S chedule Vascular Surgery - Outpatient Referral Routine Aneurysm Abdomi nal Expected: Aneurysm consult Aortic Without 9 (clinic) Rupture (HCC) (Approximate), Expires: 03/19/2022 documented as of this encounter Visit Diagnoses Diagnosis Aneurysm Abdominal Aortic Without Ruptur e (HCC) - Primary documented in this encounter
--- OUTSIDE RECORDS SUMMARY | 2022-04-05 09:28 | XMS_ITS | Encounter Summary ---
:1955 Author Organization [facility] Address [address] [place] [address] Care Team Providers Name Role Phone Unavailable Primary Care Provider Unavailable Reason for Referral Outpatient (Routine) - Closed Specialty Diagnoses / Procedures Referred By Contact Refer red To Contact Nutrition Diagnoses Malignant Neoplasm Of Supraglottic (HCC) Ursula Aguirre M.D. [address] [phone] Referral ID Status Reason Start Date Expiration Date Visits Requ ested Visits Authorized [id number] Closed 03/15/2019 03/14/2020 1 1 Reason for Visit Outpatient (Routine) - Closed Specialty Diagnoses / Procedures Referred By Contact Refer red To Contact Nutrition Diagnoses Malignant Neoplasm Of Supraglottic (HCC) Ursula Aguirre M.D. [facility] [address] [place] [address] [phone] Referral ID Status Reason Start Date Expiration Date Visits Requ ested Visits Authorized [id number] Closed 03/15/2019 03/14/2020 1 1 Encounter Details Date Type Department Care Team Description 03/29/2019 Hospital Encounter Department of Mary Aguirre M.D. [address] [place] [phone] Malignant Neoplasm Radiation Oncology Natasha Brandon, ALINEN [address] [place] [phone] Of Supraglottic in [place], ([facility]) [place] [address] [place] [phone] Social History Tobacco Use Types Packs/Day Years [...] do you attend voodoo or Never 2018 buddhist services? Do you [...] Social and Family History She lives in [place], [place] with one of her sons and [id number]. She will live in [place] with a different son during the week (Tuesday thru Tuesday). She is . She has 4 sons, 10 grand children and 2 great grandchildren. 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 She is a current [...] 2 BLT sandwiches. She plans to have [employer] for supper. She drinks coffee and 7-8 [...] 87.6 kg Date: 03/29/19 Total Calorie Needs: 1203-2114 (HB basal + 20%) Estimated Protein Needs: [...] treatment Nutrition Diagnosis Reassessment: Ongoing Nutrition Prescription/Recommendation 8990-4692 kcals, 88-105 grams protein, 9+ cups fluid [...] Radiology Mark Eastman M.D., M.S. [address] [place] [address] 04/26/2022 Office Visit Otorhinolaryngology Roxanne Lanza, SYSTEMS SOFTWARE DESIGNER, C.N.P. [address] [place] [phone] 04/28/2022 Appointment Radiation Oncology Ursula Aguirre M.D. [address] [place] [address] Scheduled Referrals Name Type Priority Associated Diagnoses Order S chedule Nutrition - Outpatient Referral Routine Malignant Neoplasm On ce for 1 Medical nutrition Of Supraglottic Occurre nces therapy consult (HCC) starting (clinic) until 9 documented as of this encounter Visit Diagnoses Diagnosis Malignant Neoplasm Of Supraglottic (HCC) documented in this encounter
--- OUTSIDE RECORDS SUMMARY | 2022-04-05 09:28 | XMS_ITS | Encounter Summary ---
:1955 Author Organization [facility] Address [address] [place] [address] Care Team Providers Name Role Phone Unavailable Primary Care Provider Unavailable Reason for Visit Radiation Therapy (Routine) - Closed Specialty Diagnoses / Procedures Referred By Contact Refer red To Contact Diagnoses Malignant Neoplasm Of Supraglottic (HCC) Ursula Aguirre M.D. [facility] Procedures Prior Auth Rad Tx [place] IMRT COMPLEX [address] [place] [address] [phone] Referral ID Status Reason Start Date Expiration Date Visits Requ ested Visits Authorized [id number] Closed 03/15/2019 03/14/2020 35 35 Encounter Details Date Type Department Care Team Description 03/26/2019 Hospital Encounter Department of Radiation Bud Aguirre I., [place]cology [place] [address] [facility] [address] [place] [address] [phone] Social History Tobacco Use Types Packs/Day Years [...] do you attend judaism or Never 2018 bahai services? Do you belong to any clubs or No 02/21/2019 organizations such as judaism groups, unions, fraPodotree or athletic groups, or school groups? How [...] Radiology Mark Eastman M.D., M.S. [address] [place] [address] 04/26/2022 Office Visit Otorhinolaryngology Roxanne Lanza, NETTING WEAVER, C.N.P. [address] [place] [address] 04/28/2022 Appointment Radiation Oncology Ursula Aguirre M.D. [address] [place] [address] documented as of this encounter Visit Diagnoses Not on filedocumented in this encounter
--- OUTSIDE RECORDS SUMMARY | 2022-04-05 09:28 | XMS_ITS | Encounter Summary ---
:1955 Author Organization [facility] Address [address] [place] [address] Care Team Providers Name Role Phone Unavailable Primary Care Provider Unavailable Reason for Referral Speech Pathology (Routine) - Closed Specialty Diagnoses / Procedures Referred By Contact Refer red To Contact Diagnoses Malignant Neoplasm Of Supraglottic (HCC) Ursula Aguirre M.D. [facility] Procedures AIRCRAFT ORDNANCE TECHNICIAN - Ongoing treatment [address] [place] [address] [phone] Referral ID Status Reason Start Date Expiration Date Visits Requ ested Visits Authorized [id number] Closed 03/16/2019 03/15/2020 1 1 Outpatient (Routine) - Closed Specialty Diagnoses / Procedures Referred By Contact Refer red To Contact Diagnoses Malignant Neoplasm Of Supraglottic (HCC) Ursula Aguirre M.D. [facility] Procedures FL Swallow Function with Video and Speech or OT AK SWALLOWING STUDY W VIDEO HC SWALLOWING STUDY W VIDEO AK SWALLOWING STUDY W VIDEO [address] [place] [address] [phone] Referral ID Status Reason Start Date Expiration Date Visits Requ ested Visits Authorized [id number] Closed 03/16/2019 03/15/2020 1 1 peech Pathology (Routine) - Closed Specialty Diagnoses / Procedures Referred By Contact Refer red To Contact Diagnoses Malignant Neoplasm Of Supraglottic (HCC) Ursula Aguirre M.D. [facility] Procedures AIRCRAFT ORDNANCE TECHNICIAN Dysphagia evaluate and treat [address] [place] [address] Referral ID Status Reason Start Date Expiration Date Visits Requ ested Visits Authorized [id number] Closed 03/16/2019 03/15/2020 1 1 Encounter Details Date Type Department Care Team Description 03/16/2019 Orders Only Department of Ursula Aguirre Malignant N eoplasm Of Radiation Oncology in [place] Supraglottic [facility]HCC) [facility] [address] [facility] (Primary Dx) [address] [place] [phone] [phone] Social History Tobacco Use Types Packs/Day Years [...] do you attend adventist or Never 2018 zoroastrian services? Do you [...] Radiology Mark Eastman M.D., M.S. [address] [place] [phone] 04/26/2022 Office Visit Otorhinolaryngology Roxanne Lanza, BIOINFORMATICIST, C.N.P. [address] [place] [phone] 04/28/2022 Appointment Radiation Oncology Ursula Aguirre M.D. [address] [place] [address] [phone] documented as of this encounter Results FL [...]
--- OUTSIDE RECORDS SUMMARY | 2022-04-05 09:28 | XMS_ITS | Encounter Summary ---
:1955 Author Organization [facility] Address [address] [place] [address] Care Team Providers Name Role Phone Unavailable Primary Care Provider Unavailable Reason for Visit Speech Pathology (Routine) - Closed Specialty Diagnoses / Procedures Referred By Contact Refer red To Contact Diagnoses Malignant Neoplasm Of Supraglottic (HCC) Ursula Aguirre M.D. [facility] Procedures FURNACE OPERATOR Dysphagia evaluate and treat [address] [place] [phone] Referral ID Status Reason Start Date Expiration Date Visits Requ ested Visits Authorized [id number] Closed 03/16/2019 03/15/2020 1 1 Encounter Details Date Type Department Care Team Description 03/28/2019 Comprehensive Visit Department of Ayesha Aguirre M.D. [address] [place] [phone] Dysphagia Oropharyngeal Phase (Primary D x); [facility] CCC-FURNACE OPERATOR [address] [place] [phone] Malignant Neoplasm Of Supraglottic (HCC) [place], [place] [address] [place] [phone] Social History Tobacco Use Types Packs/Day Years [...] do you attend yarsani or Never 2018 jew services? Do you [...] this encounter Consult Notes Fani Montalvo M.S., [facility]-FURNACE OPERATOR - 03/28/2019 7:45 AM CDT Speech Pathology [...] Radiology Mark Eastman M.D., M.S. [address] [place] [phone] 04/26/2022 Office Visit Otorhinolaryngology Roxanne Lanza APRN, C.N.P. [address] [place] [phone] 04/28/2022 Appointment Radiation Oncology Ursula Aguirre M.D. [address] [place] [phone] documented as of this encounter Visit Diagnoses Diagnosis Dysphagia Oropharyngeal Phase - Primary Malignant Neoplasm Of Supraglottic (HCC) documented in this encounter
--- OUTSIDE RECORDS SUMMARY | 2022-04-05 09:28 | XMS_ITS | Encounter Summary ---
:1955 Author Organization [facility] Address [address] [place] [address] Care Team Providers Name Role Phone Unavailable Primary Care Provider Unavailable Reason for Referral Outpatient (Routine) - Closed Specialty Diagnoses / Procedures Referred By Contact Refer red To Contact Nutrition Diagnoses Malignant Neoplasm Of Supraglottic (HCC) Summer Pérez P.A.-C., [facility] [address] [place] [address] [phone] Referral ID Status Reason Start Date Expiration Date Visits Requ ested Visits Authorized [id number] Closed 03/29/2019 03/28/2020 1 1 Encounter Details Date Type Department Care Team Description 03/29/2019 Orders Only Department of Summer Pérez Malignant Joao plasm Of Radiation Oncology in [place], M .S. Supraglottic (HCC) [facility] [address] [place] [address] (Primary Dx) [address] [place] [phone] Social History Tobacco Use Types Packs/Day Years [...] do you attend mosque or Never 2018 sikh services? Do you [...] Radiology Mark Eastman M.D., M.S. [address] [place] [address] [phone] 04/26/2022 Office Visit Otorhinolaryngology Roxanne Lanza APRN, C.N.P. [address] [place] [address] [phone] 04/28/2022 Appointment Radiation Oncology Ursula Aguirre M.D. [address] [place] [address] [phone] Scheduled Referrals Name Type Priority Associated Diagnoses Order S chedule Nutrition - Outpatient Referral Routine Malignant Neoplasm 5 Occurrences Medical nutrition Of Supraglottic startin g 03/29/2019 therapy consult (HCC) until 2019 (clinic) documented as of this encounter Visit Diagnoses Diagnosis Malignant Neoplasm Of Supraglottic (HCC) - Primary documented in this encounter
--- OUTSIDE RECORDS SUMMARY | 2022-04-05 09:28 | XMS_ITS | Encounter Summary ---
:1955 Author Organization [facility] Address [address] [place] [address] Care Team Providers Name Role Phone Unavailable Primary Care Provider Unavailable Reason for Referral Outpatient (Routine) - Closed Specialty Diagnoses / Procedures Referred By Contact Refer red To Contact Diagnoses Malignant Neoplasm Of Supraglottic (HCC) Ursula Aguirre M.D. [facility] Procedures FL Swallow Function with Video and Speech or OT MS SWALLOWING STUDY W VIDEO HC SWALLOWING STUDY W VIDEO MS SWALLOWING STUDY W VIDEO [address] [place] [phone] Referral ID Status Reason Start Date Expiration Date Visits Requ ested Visits Authorized [id number] Closed 03/16/2019 03/15/2020 1 1 Reason for Visit Outpatient (Routine) - Closed Specialty Diagnoses / Procedures Referred By Contact Refer red To Contact Diagnoses Malignant Neoplasm Of Supraglottic (HCC) Ursula Aguirre M.D. [facility] Procedures FL Swallow Function with Video and Speech or OT MS SWALLOWING STUDY W VIDEO HC SWALLOWING STUDY W VIDEO MS SWALLOWING STUDY W VIDEO [address] [place] [address] [phone] Referral ID Status Reason Start Date Expiration Date Visits Requ ested Visits Authorized [id number] Closed 03/16/2019 03/15/2020 1 1 Encounter Details Date Type Department Care Team Description 03/28/2019 Hospital Encounter Department of Mary Aguirre M.D. [address] [place] [phone] Malignant Neoplasm Of Radiology, Alverda Fani Montalvo M.S., [facility]-SUPERVISOR OF RESEARCH 200 [place] [address] Supraglottic (HCC) Building, in [place], [place] [address] [place] [phone] Social History Tobacco Use Types Packs/Day Years [...] do you attend holiness or Never 2018 temple services? Do you [...] Radiology Mark Eastman M.D., M.S. [address] [place] [phone] 04/26/2022 Office Visit Otorhinolaryngology Roxanne Lanza, PATIENT SERVICES MANAGER, C.N.P. [address] [place] [phone] 04/28/2022 Appointment Radiation Oncology Ursula Aguirre M.D. [address] [place] [phone] documented as of this encounter Procedures Procedure [...]
--- OUTSIDE RECORDS SUMMARY | 2022-04-05 09:28 | XMS_ITS | Encounter Summary ---
:1955 Author Organization [facility] Address [address] [place] [address] Care Team Providers Name Role Phone Unavailable Primary Care Provider Unavailable Reason for Visit Radiation Therapy (Routine) - Closed Specialty Diagnoses / Procedures Referred By Contact Refer red To Contact Diagnoses Malignant Neoplasm Of Supraglottic (HCC) Ursula Aguirre M.D. [facility] Procedures Prior Auth Rad Tx [place] IMRT COMPLEX [address] [place] [address] [phone] Referral ID Status Reason Start Date Expiration Date Visits Requ ested Visits Authorized [id number] Closed 03/15/2019 03/14/2020 35 35 Encounter Details Date Type Department Care Team Description 03/28/2019 Hospital Encounter Department of Radiation Bud Aguirre I., [place]cology in [place] [address] [facility] [address] [place] [phone] Social History Tobacco Use Types Packs/Day Years [...] do you attend episcopal or Never 2018 roman catholic services? Do you belong to any clubs or No 02/21/2019 organizations such as episcopal groups, unions, fraUnigene Laboratories or athletic groups, or school groups? How [...] Radiology Mark Eastman M.D., M.S. [address] [place] [phone] 04/26/2022 Office Visit Otorhinolaryngology Roxanne Lanza APRN, C.N.P. [address] [place] [phone] 04/28/2022 Appointment Radiation Oncology Ursula Aguirre M.D. [address] [place] [phone] documented as of this encounter Visit Diagnoses Not on filedocumented in this encounter
--- OUTSIDE RECORDS SUMMARY | 2022-04-05 09:28 | XMS_ITS | Encounter Summary ---
:1955 Author Organization [facility] Address [address] [place] [address] Care Team Providers Name Role Phone Unavailable Primary Care Provider Unavailable Reason for Visit MRI/CAT/PET Scan (Routine) - Closed Specialty Diagnoses / Procedures Referred By Contact Refer red To Contact Radiology Diagnoses Mass Adrenal (HCC) Francisca Tapia M.D., Ph.D. [facility] Procedures MR Abdomen without IV Contrast MR Abdomen without and with IV Contrast NC MRI ABDOMEN WO/W CNTRST HC MRI ABDOMEN WO/W CNTRST NC MRI ABDOMEN WO CNTRST HC MRI ABDOMEN WO CNTRST [address] [place] [address] 4 Referral ID Status Reason Start Date Expiration Date Visits Requ ested Visits Authorized [id number] Closed 03/15/2019 03/14/2020 1 1 Encounter Details Date Type Department Care Team Description 03/16/2019 Hospital Encounter Department of Francisca Tapia, Mass Adr enal (HCC) Radiology, Brenda Chu, Ph.D. [facility], in [address] [place] [address] [place] [phone] Social History Tobacco Use Types Packs/Day Years [...] do you attend nondenominational or Never 2018 scientologist services? Do you [...] Radiology Mark Eastman M.D., M.S. [address] [place] [phone] 04/26/2022 Office Visit Otorhinolaryngology Roxanne Lanza APRN, C.N.P. [address] [place] [address] [phone] 04/28/2022 Appointment Radiation Oncology Ursula Aguirre M.D. [address] [place] [phone] documented as of this encounter Procedures Procedure [...] Address City/State/ZIP Code Phon e Number POC [facility] [address] [place] [address] Creatinine, POCT (03/16/2019 2:47 PM CDT) athologist Signature eGFR-Black/Afri >90 >=60 03/16/2019 can Vietnamese, mL/min/BSA 2:53 PM CDT POCT Comment: ----ADDITIONAL [...] City/State/ZIP Code Phon e Number POC [facility] 200 [place], [place] [address] LABS documented in this encounter Visit Diagnoses Diagnosis Mass Adrenal (HCC) documented in this encounter
--- OUTSIDE RECORDS SUMMARY | 2022-04-05 09:28 | XMS_ITS | Encounter Summary ---
:1955 Author Organization [facility] Address [address] [place] [address] Care Team Providers Name Role Phone Unavailable Primary Care Provider Unavailable Encounter Details Date Type Department Care Team Description 03/19/2019 Clinical Communication Department of Myra Nelson Radiation Oncology in , R.N. [place], [place] [address] [facility] [address] [place] [phone] Social History Tobacco Use Types Packs/Day Years [...] do you attend mormon or Never 2018 pentecostal services? Do you [...] Radiology Mark Eastman M.D., M.S. [address] [place] [phone] 04/26/2022 Office Visit Otorhinolaryngology Roxanne Lanza APRN, C.N.P. [address] [place] [phone] 04/28/2022 Appointment Radiation Oncology Ursula Aguirre M.D. [address] [place] [phone] documented as of this encounter Visit Diagnoses Not on filedocumented in this encounter
--- OUTSIDE RECORDS SUMMARY | 2022-04-05 09:28 | XMS_ITS | Encounter Summary ---
:1955 Author Organization [facility] Address [address] [place] [address] Care Team Providers Name Role Phone Unavailable Primary Care Provider Unavailable Reason for Visit Radiation Therapy (Routine) - Closed Specialty Diagnoses / Procedures Referred By Contact Refer red To Contact Diagnoses Malignant Neoplasm Of Supraglottic (HCC) Ursula Aguirre M.D. [facility] Procedures Prior Auth Rad Tx [place] IMRT COMPLEX [address] [place] [address] [phone] Referral ID Status Reason Start Date Expiration Date Visits Requ ested Visits Authorized [id number] Closed 03/15/2019 03/14/2020 35 35 Encounter Details Date Type Department Care Team Description 03/29/2019 Hospital Encounter Department of Radiation Bud Aguirre I., [place]cology [place] [address] [facility] [address] [place] [phone] Social History Tobacco Use Types Packs/Day Years [...] do you attend muslim or Never 2018 faith services? Do you belong to any clubs or No 02/21/2019 organizations such as muslim groups, unions, fra[employer]ar Semiconductor or athletic groups, or school groups? How [...] Radiology Mark Eastman M.D., M.S. [address] [place] [phone] 04/26/2022 Office Visit Otorhinolaryngology Roxanne Lanza APRN, C.N.P. [address] [place] [phone] 04/28/2022 Appointment Radiation Oncology Ursula Aguirre M.D. [address] [place] [phone] documented as of this encounter Visit Diagnoses Not on filedocumented in this encounter
--- OUTSIDE RECORDS SUMMARY | 2022-04-05 09:29 | XMS_ITS | Encounter Summary ---
:1955 Author Organization [facility] Address [address] [place] [address] Care Team Providers Name Role Phone Unavailable Primary Care Provider Unavailable Reason for Referral MRI/CAT/PET Scan (Routine) - Closed Specialty Diagnoses / Procedures Referred By Contact Refer red To Contact Radiology Diagnoses Laryngeal Disorder Hung Mabry M.D. [facility] Procedures CT Chest with IV Contrast [place] CT THORAX W CNTRST HC CT THORAX W CNTRST [place] CT THORAX W CNTRST 200 [place] [address] Referral ID Status Reason Start Date Expiration Date Visits Requ ested Visits Authorized [id number] Closed 02/21/2019 02/21/2020 1 1 Reason for Visit Outpatient (Routine) - Closed Specialty Diagnoses / Procedures Referred By Contact Refer red To Contact Otorhinolaryngology Diagnoses Laryngeal Disorder Darryl Marcos [place] Toño Chu [address] [place] [phone] Referral ID Status Reason Start Date Expiration Date Visits Requ ested Visits Authorized [id number] Closed 02/09/2019 02/09/2020 1 1 Encounter Details Date Type Department Care Team Description 02/21/2019 Comprehensive Visit Department of Raghavendra Dhillon al Otorhinolaryngology in , Juanpablo Pulido [place], [place] [address] [place] [phone] Social History Tobacco Use Types Packs/Day [...] do you attend mu-ism or Never 2018 christianity services? Do you [...] new case. REFERRAL SOURCE Dr. Darryl Marcos [address] [place] [phone] REASON FOR CONSULT Probable squamous cell carcinoma [...] will also plan for a consultation at [facility]. Discussed with the patient and daughter likely diagnosis, the need for discontinuation of smoking, and need for further evaluation and treatment planning. CT CT Job ID: [id number] TUNDET Frank Arrieta M.D. - 02/21/2019 8:00 AM CDT REF PROVIDER: Darryl Marcos M.D. [facility] [address] [place] [address] [place] [address] CHIEF COMPLAINT/PUPROSE OF VISIT: Laryngeal Mass HISTORY [...] week Gets together: Once a week Attends christianity service: Never Active member of club or [...] is normal. OP: No masses or ulcers. [place] tonsilsare present and are 1+. Parotid/Neck: No masses appreciated. No palpable lymphadenopathy. Skin: No rashes or lesions. Nose: Patent, mucosa is moist. 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 Torus tubaris normal. Symmetric fossa [...] Radiology Mark Eastman M.D., M.S. [address] [place] [phone] 04/26/2022 Office Visit Otorhinolaryngology Roxanne Lanza, MANAGER NEW PRODUCT, C.N.P. [address] [place] [phone] 04/28/2022 Appointment Radiation Oncology Ursula Aguirre M.D. [address] [place] [phone] documented as of this encounter Procedures Procedure Name Priority Date/Time Associated Diagnosis Comme nts SURGICAL PATHOLOGY, Routine 02/21/2019 9:19 AM Laryngeal Disor oriana Results for this [facility] CDT procedure are i n the results section. [place] PUNCH BX SKIN Routine 02/21/2019 8:00 AM [...] by CDT KMW. Report Nacho Pozo M.D. [id number] electronically I verify that I have examined all relevant slides/ma terials 10:50 AM signed by for the specimen(s) and rendered or confirmed the diagnosis. 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 ??Holdover to evaluate pe rmanent 10:50 AM Report sections. CDT Frozen section histologic interpretation performed by: Nacho Pozo M.D. [id number] Block Summary A Larynx biopsy 02/22/2019 A1 [...] Organization Address City/State/ZIP Code Phon e Number [facility] - [address] [place], [place] [address] [facility] [place] PUNCH BX SKIN SINGLE LESION (02/21/2019 8:00 [...]
--- OUTSIDE RECORDS SUMMARY | 2022-04-05 09:29 | XMS_ITS | Encounter Summary ---
:1955 Author Organization [facility] Address [address] [place] [address] Care Team Providers Name Role Phone Unavailable Primary Care Provider Unavailable Encounter Details Date Type Department Care Team Description 03/15/2019 Orders Only Department of Radiation Francisca Tapia, Mass Adrenal (HCC) Oncology in [place], [place], Ph. D. (Primary Dx) [place] [address], [address] [facility] [address] [place] [address] [phone] Social History Tobacco Use Types Packs/Day Years [...] do you attend gnosticism or Never 2018 islam services? Do you [...] Radiology Mark Eastman M.D., M.S. [address] [place] [phone] 04/26/2022 Office Visit Otorhinolaryngology Roxanne Lanza APRN, C.N.P. [address] [place] [phone] 04/28/2022 Appointment Radiation Oncology Ursula Aguirre M.D. [address] [place] [phone] documented as of this encounter Visit Diagnoses Diagnosis Mass Adrenal (HCC) - Primary documented in this encounter
--- OUTSIDE RECORDS SUMMARY | 2022-04-05 09:29 | XMS_ITS | Encounter Summary ---
:1955 Author Organization [facility] Address [address] [place] [address] Care Team Providers Name Role Phone Unavailable [...] do you attend sabianist or Never 2018 yarsanism services? Do you [...] Radiology Mark Eastman M.D., M.S. [address] [place] [phone] 04/26/2022 Office Visit Otorhinolaryngology Roxanne Lanza, DIRECTOR OF ACADEMIC SUPPORT, C.N.P. [address] [place] [phone] 04/28/2022 Appointment Radiation Oncology Ursula Aguirre M.D. [address] [place] [phone] documented as of this encounter Procedures Procedure [...]
--- OUTSIDE RECORDS SUMMARY | 2022-04-05 09:29 | XMS_ITS | Encounter Summary ---
:[address] [facility] Address [address] [place] [address] Care Team Providers Name Role Phone Unavailable Primary Care Provider Unavailable Reason for Referral Outpatient (Routine) - Closed Specialty Diagnoses / Procedures Referred By Contact Refer red To Contact Otorhinolaryngology Diagnoses Laryngeal Disorder Darryl Marcos [place] M.D. [address] [place] [address] Referral ID Status Reason Start Date Expiration Date Visits Requ ested Visits Authorized [id number] Closed 02/09/2019 02/09/2020 1 1 Encounter Details Date Type Department Care Team Description 02/09/2019 [facility] Irma Marcos Disorder AND CLINICS Darryl Serna M.D. (Primary Dx) 1999 [facility] [address] [place] [address] [place], [place] [phone] Social History Tobacco Use Types Packs/Day Years [...] Radiology Mark Eastman M.D., M.S. [address] [place] [phone] 04/26/2022 Office Visit Otorhinolaryngology Roxanne Lanza APRN, C.N.P. [address] [place] [phone] 04/28/2022 Appointment Radiation Oncology Ursula Aguirre M.D. [address] [place] [address] Scheduled Referrals Name Type Priority Associated Order [...]
--- OUTSIDE RECORDS SUMMARY | 2022-04-05 09:29 | XMS_ITS | Encounter Summary ---
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 Do you [...] Mabry and Dr. Arrieta of ENT and [facility], exam reported an exophytic supraglottic lesion involving [...] Ms. Narayan presented with her son and [id number] to discuss radiotherapy options for the newlydiagnosed [...] Narayan presented with her son and the [id number] for radiotherapy consultation for the newly diagnosed [...] also discussed the option of treatment in [place] closer to home and one of her son lives. She is scheduled to see Dr. Mabry of ENT surgical option. Patient was given Dr. Love's card and was encouraged to to let us know her decision about treatment modality. If she decides to have definitive radiation treatment, we will refer her to our colleagues in [facility]. Associated attestation - Domingo Love M.D. - [...] offered her the possibility of treatment in [place] if she wishes definitve care and I [...] Radiology Mark Eastman M.D., M.S. [address] [place] [phone] 04/26/2022 Office Visit Otorhinolaryngology Roxanne Lanza, VEHICLE PAINTER, C.N.P. [address] [place] [phone] 04/28/2022 Appointment Radiation Oncology Ursula Aguirre M.D. [address] [place] [phone] Scheduled Referrals Name Type Priority Associated Order [...]
--- OUTSIDE RECORDS SUMMARY | 2022-04-05 09:29 | XMS_ITS | Encounter Summary ---
:1955 Author Organization [facility] Address [address] [place] [address] Care Team Providers Name Role Phone Unavailable Primary Care Provider Unavailable Reason for Referral MRI/CAT/PET Scan (Routine) - Closed Specialty Diagnoses / Procedures Referred By Contact Refer red To Contact Radiology Diagnoses Laryngeal Disorder Hung Mabry M.D. [facility] Procedures CT Chest with IV Contrast MD CT THORAX W CNTRST HC CT THORAX W CNTRST MD CT THORAX W CNTRST 200 [place] [address] Referral ID Status Reason Start Date Expiration Date Visits Requ ested Visits Authorized [id number] Closed 02/21/2019 02/21/2020 1 1 Reason for Visit MRI/CAT/PET Scan (Routine) - Closed Specialty Diagnoses / Procedures Referred By Contact Refer red To Contact Radiology Diagnoses Laryngeal Disorder Hung Mabry M.D. [facility] Procedures CT Chest with IV Contrast MD CT THORAX W CNTRST HC CT THORAX W CNTRST MD CT THORAX W CNTRST 200 [place] [address] Referral ID Status Reason Start Date Expiration Date Visits Requ ested Visits Authorized [id number] Closed 02/21/2019 02/21/2020 1 1 Encounter Details Date Type Department Care Team Description 02/21/2019 Hospital Encounter Department of Miguel A Mabry l Aiden RadiologyMalcom M.D. [facility], in [place], [place] [address] [place] [address] Social History Tobacco Use Types Packs/Day Years [...] do you attend religion or Never 2018 scientologist services? Do you [...] Radiology Mark Eastman M.D., M.S. [address] [place] [address] 04/26/2022 Office Visit Otorhinolaryngology Roxanne Lanza APRN, C.N.P. [address] [place] [phone] 04/28/2022 Appointment Radiation Oncology Ursula Aguirre M.D. [address] [place] [phone] documented as of this encounter Procedures Procedure [...]
--- OUTSIDE RECORDS SUMMARY | 2022-04-05 09:29 | XMS_ITS | Encounter Summary ---
:1955 Author Organization [facility] Address [address] [place] [address] Care Team Providers Name Role Phone Unavailable Primary Care Provider Unavailable Encounter Details Date Type Department Care Team Description 03/15/2019 Clinical Communication Department of Radiation Francisca Tapia, Oncology in [place], [place], Ph. D. [place] [address], [address] [facility] [address] [place], [place] [address] [phone] Social History Tobacco Use Types Packs/Day Years [...] do you attend synagogue or Never 2018 latter day services? Do [...] PM CDT I called patient and her [id number] Darlin answered the phone, she is authorized to discuss patient's care. I explained that I am calling to check on patient's decision about treatment. She said she had called our clinic yesterday afternoon to let us know patient has decided to undergo radiation treatment [facility]. I apologized to her that I hadn't been noticed about her phone call. I discussed with her that I will place the referral for patient to be seen in our [place] clinic. I also discussed with her about [...] for them to obtain patient's records from [place] to follow up on these. I told her that our [place] clinic will contact them with appointment schedules. She has no otherquestions. Addendum: Dr. Aguirre will see patient in [place], and recommended MRI and mammography be done in [place] with potential faster turn around of result. I talked with Darlin, she said patient's breastbiopsy was done earlier this year, [facility]. We will obtain patient's prior mammography for review. We will order the MRI to evaluate the adrenal masses to be done in [place]. Darlin agrees with the plan and expressed appreciation of the coordination of care. documented in this encounter Plan of Treatment Upcoming Encounters Date Type Specialty Care Team Description 04/22/2022 Clinical Admitting/Central Communication Scheduling 04/26/2022 Appointment Radiology Mark Eastman M.D., M.S. [address] [place] [phone] 04/26/2022 Office Visit Otorhinolaryngology Roxanne Lanza APRN, C.N.P. [address] [place] [phone] 04/28/2022 Appointment Radiation Oncology Ursula Aguirre M.D. [address] [place] [phone] documented as of this encounter Visit Diagnoses Not on filedocumented in this encounter
--- OUTSIDE RECORDS SUMMARY | 2022-04-05 09:29 | XMS_ITS | Encounter Summary ---
:[address] [facility] Address [address] [place] [address] Care Team Providers Name Role Phone Unavailable Primary Care Provider Unavailable Reason for Visit Outpatient (Routine) - Closed Specialty Diagnoses / Procedures Referred By Contact Refer red To Contact Otorhinolaryngology Frank Arrieta M.D . [facility] 200 [place] [address] Referral ID Status Reason Start Date Expiration Date Visits Requ ested Visits Authorized [id number] Closed 02/22/2019 02/22/2020 1 1 Encounter Details Date Type Department Care Team Description 03/13/2019 Office Visit Department of [place]auer, Malignant Neop lasm Otorhinolaryngology in Hung Serna M.D. Of [place], [place] ([facility]) (Primary Dx) [address] [place] [phone] Social History Tobacco Use Types Packs/Day [...] do you attend scientology or Never 2018 buddhist services? Do you [...] her final decision. CT CT Job ID: [id number] Frank Arrieta M.D. - 03/13/2019 2:45 PM [...] moist, no masses, lesions or mucopurulence noted. MACHINE CAGE MAKER: No masses. Torus tubaris normal. Symmetric fossa [...] Radiology Mark Eastman M.D., M.S. [address] [place] [phone] 04/26/2022 Office Visit Otorhinolaryngology Roxanne Lanza APRN, C.N.P. [address] [place] [address] [phone] 04/28/2022 Appointment Radiation Oncology Ursula Aguirre M.D. 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
--- OUTSIDE RECORDS SUMMARY | 2022-04-05 09:29 | XMS_ITS | Encounter Summary ---
:1955 Author Organization [facility] Address [address] [place] [address] Care Team Providers Name Role Phone Unavailable Primary Care Provider Unavailable Reason for Referral Outpatient (Routine) - Closed Specialty Diagnoses / Procedures Referred By Contact Refer red To Contact Radiation Oncology Diagnoses Malignant Neoplasm Of Supraglottic (HCC) Francisca Tapia M.D., [facility] TASHA mas Ph.D. [address] , [facility] 101 [place], [place] [address] Referral ID Status Reason Start Date Expiration Date Visits Requ ested Visits Authorized [id number] Closed 03/15/2019 03/14/2020 1 1 Scheduling Instructions Please schedule with Dr. Aguirre. Encounter Details Date Type Department Care Team Description 03/15/2019 Orders Only Department of Francisca Tapia, Malignant Neop las Of Radiation Oncology in [place], Ph.D . Supraglottic (HCC) [place], [place] [address], (Primary Dx) [address] [facility] [address] [place], [place] [address] [phone] Social History Tobacco Use Types Packs/Day Years [...] do you attend orthodox or Never 2018 tenriism services? Do you belong to any clubs or No 02/21/2019 organizations such as orthodox groups, unions, [employer] or athletic groups, or school groups? How [...] Radiology Mark Eastman M.D., M.S. [address] [place] [phone] 04/26/2022 Office Visit Otorhinolaryngology Roxanne Lanza APRN, C.N.P. [address] [place] [phone] 04/28/2022 Appointment Radiation Oncology Ursula Aguirre M.D. 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
--- OUTSIDE RECORDS SUMMARY | 2022-04-05 09:29 | XMS_ITS | Encounter Summary ---
:1955 Author Organization [facility] Address [address] [place] [address] Care Team Providers Name Role Phone Unavailable Primary Care Provider Unavailable Reason for Referral Outpatient (Routine) - Closed Specialty Diagnoses / Procedures Referred By Contact Refer any To Contact Otorhinolaryngology Frank Arrieta M.D . 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 [address] [phone] Referral ID Status Reason Start Date Expiration Date Visits Requ ested Visits Authorized [id number] Closed 02/22/2019 02/22/2020 1 1 Encounter Details Date Type Department Care Team Description 02/22/2019 Orders Only Department of Frank Arrieta Malignant Joao plasm Otorhinolaryngology guanakito Shoemaker M.D. Of ad Face [place], [place] Neck (HCC) (Primary [address] [place] [address]) [place] [phone] Social History Tobacco Use Types Packs/Day [...] do you attend religious or Never 2018 baptist services? Do you belong to any clubs or No 02/21/2019 organizations such as religious groups, unions, [employer] or athletic groups, or school groups? How [...] Radiology Mark Eastman M.D., M.S. [address] [place] [phone] 04/26/2022 Office Visit Otorhinolaryngology Roxanne Lanza APRN, C.N.P. [address] [place] [phone] 04/28/2022 Appointment Radiation Oncology Ursula Aguirre M.D. [address] [place] [phone] Scheduled Referrals Name Type Priority Associated Order [...]
--- OUTSIDE RECORDS SUMMARY | 2022-04-05 09:29 | XMS_ITS | Encounter Summary ---
:1955 Author Organization [facility] Address [address] [place] [address] Care Team Providers Name Role Phone Unavailable [...] do you attend islam or Never 2018 taoist services? Do you belong to any clubs [...] Radiology Mark Eastman M.D., M.S. [address] [place] [phone] 04/26/2022 Office Visit Otorhinolaryngology Roxanne Lanza, COUNSELOR MARRIAGE AND FAMILY, C.N.P. [address] [place] [phone] 04/28/2022 Appointment Radiation Oncology Ursula Aguirre M.D. [address] [place] [address] [phone] documented as of this encounter Procedures Procedure [...]
--- NOTE | 2022-04-05 09:45 | CRLHL7_ITS ---
For Patients: As a result of the Cures Act, medical imaging exams and procedure reports are released immediately into your electronic medical record. You may view this report before your referring provider. If you have questions, please contact your health care provider. DIGITAL DIAGNOSTIC LEFT MAMMOGRAM USING TOMOSYNTHESIS AND COMPUTER-AIDED DETECTION LEFT BREAST ULTRASOUND CLINICAL HISTORY: LEFT breast mass/asymmetry. COMPARISON: 03/31/2022 TECHNIQUE: Digital LEFT mammogram in two projections. Tomosynthesis and CAD were utilized. Real-time ultrasound imaging of LEFT breast with imaging documentation. BREAST COMPOSITION: There are areas of scattered fibroglandular density. FINDINGS: 3D CC/MLO mammograms LEFT breast submitted. Persistent nodular density lower inner quadrant LEFT breast. No architectural distortion. Benign calcifications. No adenopathy. Targeted LEFT breast ultrasound performed 7 o`clock 3 cm from the nipple performed. There is a taller than wide hypoechoic solid nodule measuring 4 x 4 x 3 millimeters at mid depth. IMPRESSION: Indeterminate 4 x 4 x 3 millimeter lesion LEFT breast 7 o`clock 3 cm from the nipple. RECOMMENDATIONS: Ultrasound-guided core needle biopsy. BI-RADS Category 4: Suspicious Results and recommendations were discussed with the patient. A lay language report of this examination will be provided to the patient. Dictated by Dorian Lopez MD @ 04/05/2022 1:31:42 PM /Dictated by: Dorian Lopez MD @ 04/05/2022 1:31:00 PM (Electronically Signed)
--- NOTE | 2022-04-05 10:15 | CRLHL7_ITS ---
For Patients: As a result of the Century Cures Act, medical imaging exams and procedure reports are released immediately into your electronic medical record. You may view this report before your referring provider. If you have questions, please contact your health care provider. PLEASE SEE DIGITAL DIAGNOSTIC LEFT MAMMOGRAM PERFORMED TODAY CRL:jose luis amaya/Dictated by: Dorian Lopez MD @ 04/05/2022 1:31:00 PM (Electronically Signed)
== END 2022-04-05 09:15 | disposition home or self-care (01) ==
PROVIDERS: PCP Internal Medicine; Visit Provider Internal Medicine
DX: N63.20 Unspecified lump in the left breast, unspecified quadrant (principal); R92.8 Other abnormal and inconclusive findings on diagnostic imaging of breast
CPT/HCPCS: 76642; 77065; G0279

== ENCOUNTER 2022-04-07 09:32 | Outpatient (CLI) | payer MEDICARE, BC, SELFPAY ==
--- OUTSIDE RECORDS SUMMARY | 2022-04-07 09:34 | XMS_ITS ---
:1955 Author Organization [facility] Address [address] [place] [address] Care Team Providers Name Role Phone Unavailable [...] Added automatically from request for sultana low [id number] Dysphonia 06/12/2020 Dysphagia 08/02/2019 Malignant Neoplasm Of [...] [place], [facility] scheduled. TRACY Bardales CHIEF RISK OFFICER, C.N.P. Radiation Treatments Plan Last Treated On Days Fractions Prescribed Prescri bed Total Treated Fraction Dose Dose F1 H&N 05/04/2019 39 35 of 35 200 cGy 7,000 cGy Reference Point Last Treated On Elapsed Days Session Dose Total Dos e [id number] 05/04/2019 39 200 cGy 7,000 cGy Lifetime Dose Tracking Chemical Lifetime Dose Automatic Entry Manual Entry Radiation 801.56 mGy 40.56 mGy 761 mGy Fluoro Time 31.3 minutes 5.2 minutes 26.1 minutes DAP (Gy-cm2) 221.25 Gy-cm2 0 Gy-cm2 221.25 Gy-cm2 Resolved Problems Problem Noted Date Resolved Date Tobacco Use 04/22/2011 10/22/2021
--- OUTSIDE RECORDS SUMMARY | 2022-04-07 09:34 | XMS_ITS | Encounter Summary ---
:1955 Author Organization [facility] Address [address] [place] [address] Care Team Providers Name Role Phone Unavailable Primary Care Provider Unavailable Reason for Visit Reason Comments Med Refill Encounter Details Date Type Department Care Team Description 03/18/2022 Refill Department of Radiation Summer Pérez P.A .-C., Med Refill Oncology in [facility] [address] [facility] [address] [place] [address] [place] [address] [phone] Social History Tobacco Use Types Packs/Day Years [...] do you attend rastafari or Never 2018 congregation services? Do you [...] Radiology Mark Eastman M.D., M.S. [address] [place] [phone] 04/26/2022 Office Visit Otorhinolaryngology Roxanne Lanza APRN, C.N.P. [address] [place] [phone] 04/28/2022 Appointment Radiation Oncology Ursula Aguirre M.D. [address] [place] [phone] documented as of this encounter Visit Diagnoses Not on filedocumented in this encounter
--- OUTSIDE RECORDS SUMMARY | 2022-04-07 09:34 | XMS_ITS | Clinical Summary ---
:1955 Author Organization [facility] Address [address] [place] [address] Care Team Providers Name Role Phone Unavailable Primary Care Provider Unavailable Source Comments Patient records contain information from all sites at [facility]. For routine questions regarding patient records, call [phone] during business hours, M-F 8:00 AM - 5:00 PM Central Time. Record requests for emergency care only can be directed to [phone] at any time.[facility] Allergies Active Allergy Reactions Severity Noted Date [...] Added automatically from request for sultana low [id number] Dysphonia 06/12/2020 Dysphagia 08/02/2019 Malignant Neoplasm Of [...] do you attend amish or Never 2018 hoahaoism services? Do you [...] CDT Respiratory Rate 17 10/24/2021 12:05 PM CREATIVE ENGAGEMENT DIRECTOR Oxygen Saturation 96% 10/24/2021 12:04 PM CREATIVE ENGAGEMENT DIRECTOR Inhaled Oxygen Concentration - - Weight 83.1 kg (183 lb 3.2 oz) 01/27/2022 10:22 AM CDT Height 164 cm (5' 4.57) 10/22/2021 9:46 AM CREATIVE ENGAGEMENT DIRECTOR Body Mass Index 30.9 10/22/2021 9:46 AM CREATIVE ENGAGEMENT DIRECTOR Plan of Treatment Upcoming Encounters Date Type Specialty Care Team Description 04/22/2022 Clinical Admitting/Central Communication Scheduling 04/26/2022 Appointment Radiology Mark Eastman M.D., M.S. [address] [place] [phone] 04/26/2022 Office Visit Otorhinolaryngology Roxanne Lanza, SEWER BRICKLAYER, C.N.P. [address] [place] [phone] 04/28/2022 Appointment Radiation Oncology Ursula Aguirre M.D. [address] [place] [phone] Health Maintenance Due Date Last Done Comments [...] Completed 10/22/2021 Medical Devices Implanted Type Area Dragline Engineer Device Identifier Shelf Model / Expiration Serial / Date Lot Breast Other Breast Right: Other Breast Clp Hrzn Ti 6 Clp David - [id number] Hardware Ap[employer]ot Trees [id number] 06/21/2026 [id number] / Implanted: Qty: 2 on 10/22/2021 by Mark Bartlett M.D., M.S. at [facility] e.g. / pins/screws [id number] /rods Grft Vsc Bov 0.8x8 - [id number] Mesh or Synovis 04/29/2026 [id number] / Implanted: Qty: 1 on 10/22/2021 by Mark Bartlett M.D., M.S. at [facility] Patch / [id number] Grft Exc Aaa Ext 12x12 - [id number] - [id number] Vascular Bend 01/03/2023 [id number] / Implanted: Qty: 1 on 10/22/2021 by Mark Bartlett M.D., M.S. at [facility] Graft [id number] / Explanted Type Area Dragline Engineer Device Shelf Model / Identifier Expiration Date Ser ial / Lot Mesh Or Patch Mesh or Abdomen Patch Procedures Procedure Name Priority Date/Time Associated Diagnosis Comme nts THYROID-STIMULATING Routine 02/26/2022 9:43 AM Malignant Neopl asm Of Results for this HORMONE-SENSITIVE CDT Supraglottic ( HCC) procedure are in (S-TSH) Hypothyroidism the results Secondary section. UT T4 FREE Routine 01/19/2022 9:42 AM Results f or this CDT procedure are i n the results section. UT MICROSOMAL AB Routine 01/19/2022 9:42 AM Resul [...] Organization Address City/State/ZIP Code Phon e Number [facility]- [address] [place] [address] [place] [address] System in [place] [address] Thyroperoxidase (TPO) Antibodies, Serum (01/19/2022 [...] Code Phon e Number [facility] - [address] [place], [place] [address] [facility] [place] [address] [facility] 200 [facility] T4 (Thyroxine), Free, Serum (01/19/2022 9:42 AM [...] Organization Address City/State/ZIP Code Phon e Number [facility]- [address] [place] [facility] [place] [address] [place] [address] System in [place] [address] (ABNORMAL) Thyroid Function [place] (01/19/2022 9:42 AM CDT) P athologist Signature TSH, Sensitive 19.6 (H) 0.3 - 4.2 01/19/2022 [place] mIU/L 12:52 PM CDT Specimen Anatomical Collection Method Collection Time Receive d Time (Source) Location / / Volume Laterality Blood (Blood, 01/19/2022 9:42 AM 01/20/20 22 Venous) CDT 11:06 AM CDT Summer Pérez P.A.-C., M.S. LAB BLOOD ADD-ON Performing Organization Address City/State/ZIP Code Phon e Number [facility]- [address] [place] [address] [place] [address] System in [place] [address] from Last 3 Months Insurance Payer Benefit Plan Subscriber ID Effective Phone Address Typ e / Group Dates MEDICARE MEDICARE A [id number] 2021-Pres [address] [place] [address] BLUE CROSS BCBS BLUE [id number] 2021-Prese ATTN: Andrea molina HMO BLUE SHIELD PLUS HMO nt CONSUMER [facility] [address] [address] [place] [address] Advance Directives For more information, please contact: [phone] Latest Code Status on File Code Status Date Activated Date Inactivated Comments Full Code 10/22/2021 8:25 PM 10/24/2021 3:37 PM Full Code: Discussed Full Code 10/22/2021 10:56 AM 10/22/2021 8:25 PM Full Code: Discussed
--- OUTSIDE RECORDS SUMMARY | 2022-04-07 09:34 | XMS_ITS | Encounter Summary ---
:1955 Author Organization [facility] Address [address] [place] [address] Care Team Providers Name Role Phone Unavailable Primary Care Provider Unavailable Encounter Details Date Type Department Care Team Description 02/26/2022 Hospital Encounter Department of Summer Pérez Maligna nt Neoplasm Of Supraglottic (HCC); Laboratory Medicine P.Hortencia, M.S . Hypothyroidism Secondary in [place], [address] [place], [place] [address] [facility] [address] [place], [place] [phone] (Work) [phone] Social History Tobacco Use Types Packs/Day Years [...] do you attend scientologist or Never 2018 buddhist services? Do you [...] to pay for the very basics like [employer] hat hard 02/21/2019 food, housing, medical care, [...] Radiology Mark Eastman M.D., M.S. [address] [place] [phone] 04/26/2022 Office Visit Otorhinolaryngology Roxanne Lanza, BLOOD BANK SUPERVISOR, C.N.P. [address] [place] [phone] 04/28/2022 Appointment Radiation Oncology Ursula Aguirre M.D. [address] [place] [phone] documented as of this encounter Procedures Procedure [...] Code Phon e Number [facility]- [address] [place] [address] [place] [address] System in [place] [address] documented in this encounter Visit Diagnoses Diagnosis Malignant Neoplasm Of Supraglottic (HCC) Hypothyroidism Secondary documented in this encounter
--- OUTSIDE RECORDS SUMMARY | 2022-04-07 09:34 | XMS_ITS | Encounter Summary ---
:1955 Author Organization [facility] Address [address] [place] [address] Care Team Providers Name Role Phone Unavailable Primary Care Provider Unavailable Reason for Visit Reason Comments Med Refill Encounter Details Date Type Department Care Team Description 02/12/2022 Refill Department of Radiation Summer Pérez P.A .-C., Med Refill Oncology in [facility] [address] [facility] [address] [place] [address] [place] [address] [phone] Social History Tobacco Use Types Packs/Day Years [...] do you attend mandaeism or Never 2018 caodaism services? Do you [...] Radiology Mark Eastman M.D., M.S. [address] [place] [phone] 04/26/2022 Office Visit Otorhinolaryngology Roxanne Lanza APRN, C.N.P. [address] [place] [phone] 04/28/2022 Appointment Radiation Oncology Ursula Aguirre M.D. [address] [place] [phone] documented as of this encounter Visit Diagnoses Not on filedocumented in this encounter
--- OUTSIDE RECORDS SUMMARY | 2022-04-07 09:34 | XMS_ITS | Encounter Summary ---
:1955 Author Organization [facility] Address [address] [place] [address] Care Team Providers Name Role Phone Unavailable Primary Care Provider Unavailable Encounter Details Date Type Department Care Team Description 03/04/2022 Clinical Communication Department of Radiation Kareem Pérez, Oncology in [place], P.A.-Estefanía., .S. [place] [address] [place] [address] [address] [place] [phone] Social History Tobacco Use Types Packs/Day Years [...] Radiology Mark Eastman M.D., M.S. [address] [place] [phone] 04/26/2022 Office Visit Otorhinolaryngology Roxanne Lanza, VACUUM DRUM DRIER OPERATOR, C.N.P. [address] [place] [phone] 04/28/2022 Appointment Radiation Oncology Ursula Aguirre M.D. 200 [place] [phone] documented as of this encounter Visit Diagnoses Not on filedocumented in this encounter
--- OUTSIDE RECORDS SUMMARY | 2022-04-07 09:34 | XMS_ITS | Encounter Summary ---
:1955 Author Organization [facility] Address [address] [place] [address] Care Team Providers Name Role Phone Unavailable Primary Care Provider Unavailable Reason for Referral Outpatient (Routine) - Closed Specialty Diagnoses / Procedures Referred By Contact Refer red To Contact Radiation Oncology Summer Pérez P.A.-C., [facility] [address] [place] [phone] Referral ID Status Reason Start Date Expiration Date Visits Requ ested Visits Authorized [id number] Closed 01/21/2022 01/21/2023 1 1 Scheduling Instructions Please schedule visit with Dr. Aguirre in January. Patient is moving in February. Encounter Details Date Type Department Care Team Description 01/21/2022 Clinical Communication Department of Radiation Kareem Pérez, Oncology in [place], Melissa, M.S. [address] [place] [phone] Social History Tobacco Use Types Packs/Day Years [...] do you attend jew or Never 2018 oriental orthodox services? Do [...] also commented that she is moving to [place] next month. Her ccathyaa-if-eqi is going to help her set up new medical care in [place]. I offered her a visit here before [...] Radiology Mark Eastman M.D., M.S. [address] [place] [phone] 04/26/2022 Office Visit Otorhinolaryngology Roxanne Lanza, DETAIL DRAFTER, C.N.P. [address] [place] [phone] 04/28/2022 Appointment Radiation Oncology Ursula Aguirre M.D. [address] [place] [phone] Scheduled Referrals Name Type Priority Associated Diagnoses Order S [facility] Radiation Oncology Outpatient Referral Routine Ex pected: office visit 02/01/2022 (clinic) (Approximate), Expires: 01/21/2023 documented as of this encounter Visit Diagnoses Not on filedocumented in this encounter
--- OUTSIDE RECORDS SUMMARY | 2022-04-07 09:34 | XMS_ITS | Encounter Summary ---
:1955 Author Organization [facility] Address [address] [place] [address] Care Team Providers Name Role Phone Unavailable Primary Care Provider Unavailable Reason for Referral Outpatient (Routine) - Authorized Specialty Diagnoses / Procedures Referred By Contact Refer red To Contact Radiation Oncology Summer Pérez P.A.-C., [facility] [address] [place] [phone] Referral ID Status Reason Start Date Expiration Date Visits V isits Requested Authorized [id number] Authorized 01/27/2022 01/27/2023 1 1 Scheduling Instructions Please schedule after ENT appointment an d CT imaging in [place]. Outpatient (Routine) - Closed Specialty Diagnoses / Procedures Referred By Contact Refer red To Contact Radiation Oncology Summer Pérez P.A.-C., INDRA [facility] [address] [place] [phone] Referral ID Status Reason Start Date Expiration Date Visits Requ ested Visits Authorized [id number] Closed 01/21/2022 01/21/2023 1 1 Scheduling Instructions Please schedule visit with Dr. Aguirre in January. Patient is moving in February. Reason for Visit Outpatient (Routine) - Closed Specialty Diagnoses / Procedures Referred By Contact Refer red To Contact Radiation Oncology Summer Pérez P.A.-C., [facility] [address] [place] [address] Referral ID Status Reason Start Date Expiration Date Visits Requ ested Visits Authorized [id number] Closed 01/21/2022 01/21/2023 1 1 Encounter Details Date Type Department Care Team Description 01/27/2022 Hospital Encounter Department of Ursula Aguirre Neoplasm Of Supraglottic (HCC) (Primary Dx); Radiation Oncology Kimberley Bacon Hypothyroidism Secondary in [place], [address] [place], [place] [address] [facility] [address] [place], [place] [phone] (Work) [phone] Social History Tobacco Use Types Packs/Day Years [...] do you attend sikh or Never 2018 hindu services? Do you [...] Body Mass Index 30.9 10/22/2021 9:46 AM SUPERVISOR ACCOUNTS RECEIVABLE documented in this encounter Medications at Time [...] 2019: ??Appointment with Dr. Darryl Grayson???[facility] at [facility]. ??Physical examination with flexible laryngoscopy revealed a large fungating mass overlying the posterior left arytenoid that appeared fairly extensive, extending over to the right arytenoid into the piriform sinus. ?? Vocal cords move normally. ??Patient did have some shotty adenopathy on the left side. ??Ordered CT scan and then arrange referral to [facility]. 4. February 12, 2019: ??CT [...] Dr. Hung Mabry and Dr. Frank Arrieta??at [facility]. ??Physical examination revealed an exophytic [...] will be referred to Radiation Oncology in [place]. 8. March 13, 2019: ??Follow-up appointment with Dr. Arrieta and Dr. Mabry who discussed treatment options including total laryngectomy versus radiation therapy. ??They were not able to offer partial laryngectomy given her lung disease and possible aspiration. ?? 9. March 15, 2019: ??Phone call with Dr. Tapia with the patient's [id number]-phe reported that the patient had decided to undergo radiation treatment in [place]. ??She will have a follow-up abdominal MRI at [place]. ??The patient will follow-up with her primary [...] had stopped taking levothyroxine on her own. [id number] mcg daily was re-initiated and a TSH [...] concerns. She reports that her son and uwmxzplr-[id number] aregetting kicked out of their house, where she also lives, and she is requesting a social work visit to discuss resources for low-incoming house assistance. If the patient is not able to find housing in the area, then she will be moving to [place] to live with another child, but her [...] be done at [facility]. We will contact her with the result and discuss if any dosage adjustments are needed at that time. The patient has a complicated living situation and is asking to meet with a social media editor to discuss low-incoming housing assistance. If she is not able to find housing in the area, she reports that she will need to move to [place] to live with one of her children, but she prefers to stay here if possible. I have referred the patient for a social work consult at the [facility] to hopefully be scheduled tomorrow morning when the patient will be there for a lab draw, as ordered by her primary provider. The patient was provided with our business card and will keep us updated on her living situation. If the patient ends up moving to [place], we discussed that she would need to establish with a new primary provider and an ENT provider for her cancer follow-up. It is currently planned for her to have follow-up with ENT in [place] in April [address] scan of the neck at that time. We will also schedule a return visit here following her [place] appointments. The patient was asked to contact [...] Pérez P.A.-C., M.S. 01/27/2022 12:07 PM CDT [facility] [address] [place] [address] Associated attestation - Ursula Aguirre M.D. - [...] to be seen by Social Work in [place] to help her find reasonable housing. Ursula Aguirre M.D., 01/27/2022 documented in this encounter Plan of Treatment Upcoming Encounters Date Type Specialty Care Team Description 04/22/2022 Clinical Admitting/Central Communication Scheduling 04/26/2022 Appointment Radiology Mark Eastman M.D., M.S. [address] [place] [phone] 04/26/2022 Office Visit Otorhinolaryngology Roxanne Lanza APRN, C.N.P. [address] [place] [phone] 04/28/2022 Appointment Radiation Oncology Ursula Aguirre M.D. [address] [place] [phone] Scheduled Referrals Name Type Priority Associated [...] City/State/ZIP Code Phon e Number 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
--- OUTSIDE RECORDS SUMMARY | 2022-04-07 09:35 | XMS_ITS | Encounter Summary ---
:1955 Author Organization [facility] Address [address] [place] [address] Care Team Providers Name Role Phone Unavailable [...] Expiration Date Visits Requ ested Visits Authorized [id number] 1 1 Encounter Details Date Type Department Care Team Description 10/22/2021 - Hospital [facility] [place], Aneurysm Thorac oabdominal Aortic Without Rupture (HCC) (Primary Dx); 10/24/2021 Encounter Hospital, [facility], Aneurysm Abd ominal Aortic Without Rupture (HCC); [facility], Blossom Chu MShitalS. Aneurysm Abdominal Aortic Without Ruptur e (HCC) [facility], [address] [facility] [[email or web address] Eighth Floor [place], [place] [address] [place] [address] [place], [place] [phone] (Work) [phone] Social History Tobacco Use Types Packs/Day Years [...] do you attend adventist or Never 2018 [employer] services? Do you belong to any clubs or No 02/21/2019 organizations such as adventist groups, unions, fraKongregate or athletic groups, or school groups? How [...] Comments Blood Pressure 144/67 10/24/2021 12:05 PM INSPECTOR GENERAL Pulse 97 10/24/2021 12:04 PM INSPECTOR GENERAL Temperature 37.1 ??C (98.8 ??F) 10/24/2021 12:04 PM INSPECTOR GENERAL Respiratory Rate 17 10/24/2021 12:05 PM INSPECTOR GENERAL Oxygen Saturation 96% 10/24/2021 12:04 PM INSPECTOR GENERAL Inhaled Oxygen Concentration - - Weight 83.6 kg (184 lb 4.9 oz) 10/24/2021 3:30 AM INSPECTOR GENERAL Height 164 cm (5' 4.57) 10/22/2021 9:46 AM INSPECTOR GENERAL Body Mass Index 31.08 10/22/2021 9:46 AM INSPECTOR GENERAL documented in this encounter Discharge Summaries Sanna Newman P.A.-C. - 10/24/2021 11:59 AM CST DISCHARGE SUMMARY BRIEF OVERVIEW Hospital: [facility] Discharge Provider: Mark Mcneil M.D. Primary Team: [facility] No primary care provider on file. [...] Endovascular abdominal aortic aneurysm repair with [place] endoprosthesis. Ultrasound-guided bilateral common femoral artery access., IR IMAGING., Left common femoral endarterectomy with bovine pericardial patch angioplasty Mark Mcneil M.D., M.S.Tai Colunga, M.B.B.S. [facility] ROMB OR DISCHARGE DISPOSITION Home or Self [...] dismissal, pain medication (examples: oxycodone, Dilaudid, Tramadol, [place], etc.) will be prescribed to you if needed. Duration will be determined on a ihfa-og-kjat basis and will notexceed 2 weeks. Thereafter, [...] contact the vascular scheduling office by calling [phone]. Should you need to contact Dr. Mcneil or his service in the interim, you may do so through his rn medical surgical at during normal business hours of 8 to 5 Tuesday through Tuesday (excluding holidays) or, in an emergency situation, through the [facility] cafeteria operator at (Service pager: [phone]). Mepilex Border Post-Op Ag 1. You had [...] call Dr. Mcneil's nurse practitioner through the [facility] cafeteria operator [phone]. 7. After removing the dressing, keep the [...] were provided to the patient and caregiver(s). ECTOR GENERAL documented in this encounter Discharge Instructions AttachmentsThe following attachments cannot be sent through Care Everywhere. Acetaminophen (By mouth) (Panamanian)Oxycodone, Rapid Release (By mouth) (Panamanian) Polyethylene Glycol 3350 (By mouth) (Panamanian)Laxative, Stool Softeners (By mouth) (Panamanian)documented in this encounter Medications at Time of Discharge Medication Sig Dispensed Refills Start Date End Date acetaminophen (TYLENOL) 500 Take 2 tablets 0 10/13 mg tablet (1,000 mg total) by mouth every 6 (six) hours as needed for pain. albuterol 90 mcg/actuation Inhale 2 puffs 2 0 inhaler (two) times a day. aspirin 81 mg chewable Chew 81 mg every 0 tablet evening. Claer Aspirin budesonide-formoteroL Inhale 2 puffs 2 0 [...] evening. diaper,brief,adult,disposable (DEPEND UNDERWEAR FOR WOMEN XL) [facility] 04/09/19 -- Bag: (36 each) famotidine (PEPCID) [...] of simvastatin, she will switch to atorvastatin. ECTOR GENERAL documented in this encounter Nursing Notes Terrie Wilson R.N. - 10/24/2021 12:40 PM CST Shift Goals: Discharge to home with son and [id number]-wks Identify possible barriers to meeting goals/advancing plan of care: None End of Shift Summary: Vital signs stable. PIVs removed. Pain tolerable. After visit summary gone over with patient and avetkpin-lp-hiv. All questions answered. 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 Patient escorted out by wheelchair and discharged home. documented in this encounter OR Notes Op Note - Mark Mcneil M.D., M.S. - 10/22/2021 1:59 PM CST Date of Surgery: 10/22/2021 Procedure(s): Endovascular abdominal aortic aneurysm repair with [place] endoprosthesis. Ultrasound-guided bilateral common femoral artery access. IR IMAGING. Left common femoral endarterectomy with bovine pericardial patch angioplasty Surgeon(s) and Role: * Mark Mcneil M.D., M.S. - Primary * Tai Colunga M.B.B.S. - Delivery Technician Metal Buggy Operator(s): Anesthesia Type: General Pre-Operative Diagnosis: Aneurysm Abdominal [...] Concomitant embolization: None Device comments: Main body [id number] Right limb [id number] Complications: Any complications/Endoleak: Non-endoleak complication and endoleak [...] was established, we upsized to a 5- [place] sheath using a Seldinger technique. Two Perclose devices were then deployed in a preclose technique for later arterial closure. We then upsized to 8-[place] sheaths. A Lunderquist wire was advanced into [...] before completion and flow was restored with buddhism of Doppler signal in the foot. Protamine [...] Implants: Implant Name LRB Site No. Used Corporate Accounting Manager Mfr No. Serial No. Status Type GRFT EXC AAA [place] BDY [id number] - [id number] - [id number] N/A 1 [place] [id number] Implanted Vascular Graft GRFT EXC AAA EXT 12X12 - [id number] - [id number] N/A 1 [place] [id number] Implanted Vascular Graft CLP HRZN TI 6 CLP MD MADDISON - [id number] N/A 1 [employer] [id number] Implanted Hardware e.g. pins/screws/rods CLP LGC LGT TI SM - [id number] N/A 1 [employer] [id number] Implanted Hardware e.g. pins/screws/rods CLP HRZN TI 6 CLP MD MADDISON - [id number] N/A 2 [employer] [id number] Implanted Hardware e.g. pins/screws/rods GRFT VSC BOV 0.8X8 - [id number] N/A 1 [employer] [id number] Implanted Mesh or Patch Intra-op Medications: Intra-op [...] 250 mL infusion 0 mcg/kg/min intravenous [facility]pped [facility] 10/22/2021 1625 phenylephrine 80 mcg/mL in NaCl 0.9% 250 mL infusion 0.3 mcg/kg/min intravenous [facility] 10/22/2021 1609 phenylephrine 80 mcg/mL in NaCl 0.9% 250 mL infusion 0 mcg/kg/min intravenous Stopped [facility] 10/22/2021 1530 phenylephrine 80 mcg/mL in NaCl 0.9% 250 mL infusion 0.3 mcg/kg/min intravenous Rate/Dose Change [facility] 10/22/2021 1511 phenylephrine 80 mcg/mL in [...] Units topical Given Dm Colunga M.D., M.S. ECTOR GENERAL Brief Op Note - Tai Colunga M.B.B.S. - 10/22/2021 1:59 PM CST Pre-op Diagnosis Aneurysm Abdominal Aortic Without Rupture (HCC) Post-op Diagnosis Aneurysm Abdominal Aortic Without Rupture (HCC) Procedure EVAR for infrarenal AAA Left femoral endarterectomy with patch angioplasty Valdez BlairSShital ECTOR GENERAL documented in this encounter Miscellaneous Notes Hospital [...] monitored primary care provider for ongoing management. ECTOR GENERAL documented in this encounter Plan of Treatment Upcoming Encounters Date Type Specialty Care Team Description 04/22/2022 Clinical Admitting/Central Communication Scheduling 04/26/2022 Appointment Radiology Mark Mcneil M.D., M.S. [address] [place] [phone] 04/26/2022 Office Visit Otorhinolaryngology Roxanne Lanza APRN, C.N.P. [address] [place] [address] [phone] 04/28/2022 Appointment Radiation Oncology Ursula Aguirre M.D. [address] [place] [phone] documented as of this encounter Procedures Procedure Name Priority Date/Time Associated Comments Diagnosis ECG Routine 10/24/2021 11:08 Results for AM INSPECTOR GENERAL this procedure are in the results section. ADULT OXYGEN THERAPY Routine 10/23/2021 8:01 AM INSPECTOR GENERAL CBC WITHOUT Routine 10/23/2021 4:53 Results for DIFFERENTIAL, B AM INSPECTOR GENERAL this procedu re are in the results section. BASIC METABOLIC Routine 10/23/2021 4:53 Results f or PANEL, S/P AM INSPECTOR GENERAL this procedure are in the results section. TROPONIN T, 2H/6H, Timed 10/22/2021 10:58 Resul ts for 5TH GEN, P PM INSPECTOR GENERAL this procedure are in the results section. TROPONIN T, BASELINE, STAT 10/22/2021 8:51 Res ults for 5TH GEN, P PM INSPECTOR GENERAL this procedure are in the results section. ECG STAT 10/22/2021 8:43 Results for PM INSPECTOR GENERAL this procedure are in the results section. ADULT OXYGEN THERAPY Routine 10/22/2021 8:25 PM INSPECTOR GENERAL ADULT OXYGEN THERAPY Routine 10/22/2021 8:25 PM INSPECTOR GENERAL ADULT OXYGEN THERAPY Routine 10/22/2021 8:25 PM INSPECTOR GENERAL GLUCOSE POCT, B Routine 10/22/2021 6:16 Results f or PM INSPECTOR GENERAL this procedure are in the results section. IR IMAGING RAD - Routine 10/22/2021 5:49 Aneurysm Results for (most inpatients PM INSPECTOR GENERAL Abdominal Aortic this pr ocedure and all Without Rupture are in the outpatients) ([facility]) results section. IR ABDOMEN AORTA RAD - Routine 10/22/2021 5:49 Aneurysm Results for STENT GRAFT (most inpatients PM INSPECTOR GENERAL Abdominal Aortic this pr ocedure and all Without Rupture are in the outpatients) ([facility]) results section. IR FEMORAL ARTERY RAD - Routine 10/22/2021 5:49 Aneurysm Result s for ENDARTERECTOMY (most inpatients PM INSPECTOR GENERAL Abdominal Aortic this procedure and all Without Rupture are in the outpatients) ([facility]) results section. ACT, POCT, B Routine 10/22/2021 3:40 Results for PM INSPECTOR GENERAL this procedure are in the results section. GLUCOSE POCT, B Routine 10/22/2021 3:39 Results f or PM INSPECTOR GENERAL this procedure are in the results section. ACT, POCT, B Routine 10/22/2021 3:13 Results for PM INSPECTOR GENERAL this procedure are in the results section. ACT, POCT, B Routine 10/22/2021 2:47 Results for PM INSPECTOR GENERAL this procedure are in the results section. SODIUM, B STAT 10/22/2021 1:43 Results for PM INSPECTOR GENERAL this procedure are in the results section. ABG W/COOX STAT 10/22/2021 1:43 Results for PM INSPECTOR GENERAL this procedure are in the results section. POTASSIUM, B STAT 10/22/2021 1:43 Results for PM INSPECTOR GENERAL this procedure are in the results section. GLUCOSE, WHOLE BLOOD STAT 10/22/2021 1:43 Resu lts for PM INSPECTOR GENERAL this procedure are in the results section. CALCIUM, IONIZED, S/B STAT 10/22/2021 1:43 Res ults for PM INSPECTOR GENERAL this procedure are in the results section. ACT, POCT, B Routine 10/22/2021 1:41 Results for PM INSPECTOR GENERAL this procedure are in the results section. ADULT OXYGEN THERAPY Routine 10/22/2021 12:12 PM INSPECTOR GENERAL GLUCOSE POCT, B Routine 10/22/2021 11:10 Results for AM INSPECTOR GENERAL this procedure are in the results section. documented in this encounter Results ECG 12 Lead (10/24/2021 11:08 AM INSPECTOR GENERAL) P athologist Signature Ventricular Rate 94 BPM MUSE ECG/Min [place] Interval 162 ms MUSE QRSD Interval 78 ms MUSE QT Interval 360 ms MUSE QTC Interval 450 ms MUSE P Shelley 15 degrees MUSE R Shelley -1 degrees MUSE T Wave Shelley 46 degrees MUSE Specimen Anatomical Collection Method Collection Time Receive d Time (Source) Location / / Volume Laterality 10/24/2021 11:08 10/24/2021 AM INSPECTOR GENERAL 11:27 AM INSPECTOR GENERAL Impressions MUSE - 10/24/2021 11:27 AM INSPECTOR GENERAL Normal sinus rhythm Nonspecific ST abnormality When [...] (ABNORMAL) Basic Metabolic Panel (10/23/2021 4:53 AM INSPECTOR GENERAL) Analysis Performed At Patho logist Time Signature Potassium, S 4.1 3.6 - 5.2 10/23/2021 DTL mmol/L 6:08 AM INSPECTOR GENERAL Sodium, S 137 135 - 145 10/23/2021 DTL mmol/L 6:08 AM INSPECTOR GENERAL Chloride, S 102 98 - 107 10/23/2021 DTL mmol/L 6:08 AM INSPECTOR GENERAL Bicarbonate, S 24 22 - 29 10/23/2021 DTL mmol/L 6:08 AM INSPECTOR GENERAL Anion Gap 11 7 - 15 10/23/2021 DTL 6:08 AM INSPECTOR GENERAL BUN (Blood Urea 15 6 - 21 10/23/2021 DTL Nitrogen), S mg/dL 6:08 AM INSPECTOR GENERAL Creatinine 1.08 (H) 0.59 - 10/23/2021 DTL 1.04 mg/dL 6:08 AM INSPECTOR GENERAL eGFR-Non 54 (L) >=60 10/23/2021 DTL Black/ mL/min/BSA 6:08 AM INSPECTOR GENERAL Lebanese Comment: ----ADDITIONAL INFORMATION---- Estimated GFR calculated using the 2009 CKD_EPI creatinine equation. eGFR-Black/ 62 >=60 mL/min/BSA 2021 6:08 AM INSPECTOR GENERAL DTL Comment: ----ADDITIONAL INFORMATION---- Estimated GFR calculated using the 2009 CKD_EPI creatinine equation. Calcium, Total, S 8.1 (L) 8.8 - 10.2 mg/dL 10/23/2021 6:08 AM INSPECTOR GENERAL DTL Glucose, S 143 (H) 70 - 140 mg/dL 10/23/2021 6:08 AM INSPECTOR GENERAL D TL Specimen Anatomical Collection Method Collection Time Receive d Time (Source) Location / / Volume Laterality Blood (Blood, 10/23/2021 4:53 AM 10/24/19 5:50 Venous) INSPECTOR GENERAL AM INSPECTOR GENERAL Tai Chiu LAB BLOOD ADD-ON Performing Organization Address City/State/ZIP Code Phon e Number [facility] - [address] [place], [place] [address] [facility] [address] Laboratories-[facility] [address] (ABNORMAL) CBC without Differential (10/23/2021 4:53 AM INSPECTOR GENERAL) [facility] Method Time Signature Hemoglobin 9.3 (L) 11.6 - 10/23/2021 DTL 15.0 g/dL 5:40 AM INSPECTOR GENERAL Hematocrit 28.5 (L) 35.5 - 10/23/2021 DTL 44.9 % 5:40 AM INSPECTOR GENERAL Erythrocytes 3.26 (L) 3.92 - 10/23/2021 DTL 5.13 5:40 AM INSPECTOR GENERAL x10(12)/L MCV 87.4 78.2 - 10/23/2021 DTL 97.9 fL 5:40 AM INSPECTOR GENERAL RBC Distrib Width 15.0 12.2 - 10/23/2021 DTL 16.1 % 5:40 AM INSPECTOR GENERAL Platelet Count 202 157 - 371 10/23/2021 DTL x10(9)/L 5:40 AM INSPECTOR GENERAL Leukocytes 7.3 3.4 - 9.6 10/23/2021 DTL x10(9)/L 5:40 AM INSPECTOR GENERAL Specimen Anatomical Collection Method Collection Time Receive d Time (Source) Location / / Volume Laterality Blood (Blood, 10/23/2021 4:53 AM 10/24/19 5:33 Venous) INSPECTOR GENERAL AM INSPECTOR GENERAL Tai Chiu LAB BLOOD ADD-ON Performing Organization Address City/State/ZIP Code Phon e Number [facility] - [address] [place] [phone] [facility] [place] [address] Laboratories-[address] Troponin T, 2H/6H, 5th Gen (10/22/2021 10:58 PM INSPECTOR GENERAL) [facility] Method Time Signature Troponin T, 2 7 <=10 ng/L 10/22/2021 STMA hr, 5th gen 11:42 PM INSPECTOR GENERAL 2H Delta 0 ng/L 10/22/2021 STMA 11:42 PM INSPECTOR GENERAL 2H Delta Not Changing 10/22/2021 STMA Interp 11:42 PM INSPECTOR GENERAL Troponin T, 6 CANCELED ng/L 10/22/2021 STMA hr, 5th gen 11:42 PM INSPECTOR GENERAL Comment: Result canceled by the ancnatalia y. Specimen Anatomical Collection Method Collection Time Receive d Time (Source) Location / / Volume Laterality Blood (Blood, 10/22/2021 10:58 10/22/2021 Venous) PM INSPECTOR GENERAL 11:12 PM INSPECTOR GENERAL [address] [facility] - 10/22/2021 11:42 PM INSPECTOR GENERAL Specimen Information: Specimen ID: [id number] Specimen Type: Blood Specimen Collection Start Date: 10/23/19 10:58 PM Specimen Received Date: 10/22/2021 11:12 PM Specimen ID: [id number] Specimen Type: Blood Specimen Collection Start Date: 10/23/19 11:42 PM Specimen Received Date: 10/22/2021 11:42 PM Tai KelloggSShital LAB BLOOD TROPONIN Performing Organization Address City/[facility] Phon e Number [address] Troponin T, Baseline, 5th gen (10/22/2021 8:51 PM INSPECTOR GENERAL) P athologist Signature Troponin T, 7 <=10 ng/L 10/22/2021 [facility] Baseline, 5th 9:26 PM INSPECTOR GENERAL gen Specimen Anatomical Collection Method Collection Time Receive d Time (Source) Location / / Volume Laterality Blood (Blood, 10/22/2021 8:51 PM 10/23/19 9:05 Venous) INSPECTOR GENERAL PM INSPECTOR GENERAL Tai CummingsBShitalS. LAB BLOOD TROPONIN Performing Organization Address City/[facility] Phon e Number [facility] - [address] ECG 12 Lead (10/22/2021 8:43 PM INSPECTOR GENERAL) P athologist Signature Ventricular Rate 66 BPM MUSE ECG/Min [place] Interval 186 ms MUSE QRSD Interval 82 ms MUSE QT Interval 452 ms MUSE QTC Interval 473 ms MUSE P Shelley 41 degrees MUSE R Shelley 8 degrees MUSE T Wave Shelley 45 degrees MUSE Specimen Anatomical Collection Method Collection Time Receive d Time (Source) Location / / Volume Laterality 10/22/2021 8:43 PM 03/10/202 2 8:51 INSPECTOR GENERAL PM INSPECTOR GENERAL Impressions MUSE - 10/22/2021 8:51 PM INSPECTOR GENERAL Normal sinus rhythm Normal ECG When compared with ECG of 22-SEP-2021 10 :50, No significant change was found Reviewed by LEILANI Fraga Narrative This result has an attachment that is no t available. Procedure Note Victor Manuel Cumminsg M.D. - 10/22/2021Forma tting of this note might be different from the original. IMPRESSION: Normal sinus rhythm Normal ECG When compared with ECG of 22-SEP-2021 10 :50, No significant change was found Reviewed by LEILANI Fraga Tai CummingsBBisi ECG ORDERABLES Performing Organization Address City/State/ZIP Code Phon e Number MUSE MUSE NA (ABNORMAL) Glucose, POCT (10/22/2021 6:16 PM INSPECTOR GENERAL) Analysis Performed At Patho logist Time Signature Glucose, POCT, 197 (H) 70 - 140 10/22/2021 PCLX B mg/dL 6:23 PM INSPECTOR GENERAL Site Capillary 10/22/2021 PCLX 6:23 PM INSPECTOR GENERAL Specimen Anatomical Collection Method Collection Time Receive d Time (Source) Location / / Volume Laterality Blood 10/22/2021 6:16 PM 6:23 INSPECTOR GENERAL PM INSPECTOR GENERAL Unknown Provider LAB POCT ORDERABLES-MANUAL Performing Organization Address City/State/ZIP Code Phon e Number POC [facility] [address] [place] [address] PCLX [facility] [place] [address] [place] POC 200 [facility] IR FEMORAL ARTERY ENDARTERECTOMY (10/22/2021 5:49 PM INSPECTOR GENERAL) Anatomical Region Laterality Modality Lower Extremity, Vascular Interventional RST LOS N/A Other Specimen (Source) Anatomical Location Collection Method / Collectio n Time Received Time / Laterality Volume Narrative 10/26/2021 11:34 AM CDT Performed by surgeon - see Op Note for leslie marrero. Mark Mcneil M.D., M.S. IMG IR PROCEDURES IR IMAGING (10/22/2021 5:49 PM INSPECTOR GENERAL) Anatomical Region Laterality Modality N/A Other Specimen (Source) Anatomical Location Collection Method / Collectio n Time Received Time / Laterality Volume Narrative 10/26/2021 11:34 AM CDT Performed by surgeon - see Op Note for leslie marrero. Mark Mcneil M.D., M.S. IMG IR PROCEDURES IR ABDOMEN AORTA STENT GRAFT (10/22/2021 5:49 PM INSPECTOR GENERAL) Anatomical Region Laterality Modality Abdomen, Vascular Interventional RST LOS N/A Other Specimen (Source) Anatomical Location Collection Method / Collectio n Time Received Time / Laterality Volume Narrative 10/26/2021 11:34 AM CDT Performed by surgeon - see Op Note for leslie marrero. Mark Mcneil M.D., M.S. IMG IR PROCEDURES (ABNORMAL) ACT (Activated Clotting Time), POCT (10/22/2021 3:40 PM INSPECTOR GENERAL) athologist Signature Activated 227 (H) 84 - 139 10/22/2021 PCSM Clotting Time, sec 3:45 PM INSPECTOR GENERAL POCT Specimen Anatomical Collection Method Collection Time Receive d Time (Source) Location / / Volume Laterality Blood 10/22/2021 3:40 PM 2 3:45 INSPECTOR GENERAL PM INSPECTOR GENERAL Unknown Provider LAB POCT ORDERABLES - DEVICE Performing Organization Address City/[facility] Phon e Number POC RST [facility] IN[facility] [address] [place], [place] [address] LABS [place], [place] [phone] [place] [address] (ABNORMAL) Glucose, POCT (10/22/2021 3:39 PM INSPECTOR GENERAL) athologist Signature Glucose, POCT, 153 (H) 70 - 140 10/22/2021 PCSM B mg/dL 3:41 PM INSPECTOR GENERAL Site ARTLINE 10/22/2021 PCSM 3:41 PM INSPECTOR GENERAL Specimen Anatomical Collection Method Collection Time Receive d Time (Source) Location / / Volume Laterality Blood 10/22/2021 3:39 PM 2 3:41 INSPECTOR GENERAL PM INSPECTOR GENERAL Unknown Provider LAB POCT ORDERABLES-MANUAL Performing Organization Address City/State/ZIP [facility] Phon e Number POC [facility] [address] [place], [place] [address] [place] [address] [place] POC [address] (ABNORMAL) ACT (Activated Clotting Time), POCT (10/22/2021 3:13 PM INSPECTOR GENERAL) athologist Signature Activated 211 (H) 84 - 139 10/22/2021 PCSM Clotting Time, sec 3:17 PM INSPECTOR GENERAL POCT Specimen Anatomical Collection Method Collection Time Receive d Time (Source) Location / / Volume Laterality Blood 10/22/2021 3:13 PM 2 3:17 INSPECTOR GENERAL PM INSPECTOR GENERAL Unknown Provider LAB POCT ORDERABLES - DEVICE Performing Organization Address City/State/ZIP [facility] Phon e Number [facility]OC [facility] [address] [place], [place] [address] [place] [address] [place] POC [address] (ABNORMAL) ACT (Activated Clotting Time), POCT (10/22/2021 2:47 PM INSPECTOR GENERAL) athologist Signature Activated 239 (H) 84 - 139 10/22/2021 PCSM Clotting Time, sec 2:54 PM INSPECTOR GENERAL POCT Specimen Anatomical Collection Method Collection Time Receive d Time (Source) Location / / Volume Laterality Blood 10/22/2021 2:47 PM 2 2:54 INSPECTOR GENERAL PM INSPECTOR GENERAL Unknown Provider LAB POCT ORDERABLES - DEVICE Performing Organization Address City/[facility] Phon e Number POC [facility] [address] [place], [place] [address] [place] [address] [place] POC [address] Glucose, Whole Blood (10/22/2021 1:43 PM INSPECTOR GENERAL) athologist Signature Glucose 125 70 - 140 10/22/2021 1:45 STMA mg/dL PM INSPECTOR GENERAL Specimen Anatomical Collection Method Collection Time Receive d Time (Source) Location / / Volume Laterality Blood (Blood, 10/22/2021 1:43 PM 10/23/19 1:43 Arterial Line) INSPECTOR GENERAL PM INSPECTOR GENERAL Asaf Juarez M.D. LAB BLOOD TROPONIN Performing Organization Address City/[facility]/ZIP [facility] Phon e Number [facility] - [address] [place], [place] [address] [facility] [address] [facility] Main [place] [address] (ABNORMAL) Potassium, Blood (10/22/2021 1:43 PM INSPECTOR GENERAL) athologist Signature Potassium, B 3.5 (L) 3.6 - 5.2 10/22/2021 STMA mmol/L 1:45 PM INSPECTOR GENERAL Specimen Anatomical Collection Method Collection Time Receive d Time (Source) Location / / Volume Laterality Blood (Blood, 10/22/2021 1:43 PM 10/23/19 1:43 Arterial Line) INSPECTOR GENERAL PM INSPECTOR GENERAL Asaf Juarez M.D. LAB BLOOD NON ADD-ON Performing Organization Address City/State/ZIP Code Phon e Number [facility] - [address] [place], [place] [address] [place] [address] First [facility] Sodium, B (10/22/2021 1:43 PM INSPECTOR GENERAL) athologist Signature Sodium, B 139 135 - 145 10/22/2021 1:45 STMA mmol/L PM INSPECTOR GENERAL Specimen Anatomical Collection Method Collection Time Receive d Time (Source) Location / / Volume Laterality Blood (Blood, 10/22/2021 1:43 PM 10/23/19 1:43 Arterial Line) INSPECTOR GENERAL PM INSPECTOR GENERAL Asaf Juarez M.D. LAB BLOOD NON ADD-ON Performing Organization Address City/State/ZIP Code Phon e Number [facility] - [address] [place], [place] [address] [place] [id number] [place] [address] (ABNORMAL) Calcium, Ionized (10/22/2021 1:43 PM INSPECTOR GENERAL) athologist Signature Calcium, 4.52 (L) 4.65 - 10/22/2021 STMA Ionized, B 5.30 mg/dL 1:45 PM INSPECTOR GENERAL Specimen Anatomical Collection Method Collection Time Receive d Time (Source) Location / / Volume Laterality Blood (Blood, 10/22/2021 1:43 PM 10/23/19 1:43 Arterial Line) INSPECTOR GENERAL PM INSPECTOR GENERAL Asaf Juarez M.D. LAB BLOOD NON ADD-ON Performing Organization Address City/State/ZIP Code Phon e Number [facility] - [address] [place], [place] [address] [place] [address] [facility] [address] (ABNORMAL) Blood Gas with Coox, Arterial (10/22/2021 1:43 PM INSPECTOR GENERAL) athologist Signature pO2 227 (H) 83 - 108 10/22/2021 STMA mm Hg 1:45 PM INSPECTOR GENERAL pCO2 43 32 - 45 mm 10/22/2021 STMA Hg 1:45 PM INSPECTOR GENERAL pH 7.38 7.35 - 10/22/2021 STMA 7.45 pH 1:45 PM INSPECTOR GENERAL Base Excess 0 -2 - 3 10/22/2021 STMA mmol/L 1:45 PM INSPECTOR GENERAL HCO3 25 22 - 26 10/22/2021 STMA mmol/L 1:45 PM INSPECTOR GENERAL Hemoglobin, B 10.0 (L) 11.6 - 10/22/2021 STMA 15.0 g/dL 1:45 PM INSPECTOR GENERAL O2Hb 98.4 (H) 94.0 - 10/22/2021 STMA 98.0 % 1:45 PM INSPECTOR GENERAL COHb 1.1 <3.0 % 10/22/2021 STMA 1:45 PM INSPECTOR GENERAL MetHb <1.0 <1.5 % 10/22/2021 STMA 1:45 PM INSPECTOR GENERAL CtO2 14.4 (L) 18.0 - 10/22/2021 STMA 21.0 vol % 1:45 PM INSPECTOR GENERAL Specimen Anatomical Collection Method Collection Time Receive d Time (Source) Location / / Volume Laterality Blood (Blood, 10/22/2021 1:43 PM 10/23/19 22 1:43 Arterial Line) INSPECTOR GENERAL PM INSPECTOR GENERAL Asaf Juarez M.D. LAB BLOOD NON ADD-ON Performing Organization Address City/State/ZIP Code Phon e Number [facility] - [address] [place], [place] [address] [place] [address] [facility] [address] ACT (Activated Clotting Time), POCT (10/22/2021 1:41 PM INSPECTOR GENERAL) athologist Signature Activated 131 84 - 139 10/22/2021 PCSM Clotting Time, sec 1:45 PM INSPECTOR GENERAL POCT Specimen Anatomical Collection Method Collection Time Receive d Time (Source) Location / / Volume Laterality Blood 10/22/2021 1:41 PM 2 1:45 INSPECTOR GENERAL PM INSPECTOR GENERAL Unknown Provider LAB POCT ORDERABLES - DEVICE Performing Organization Address City/State/ZIP Code Phon e Number POC [facility] [address] [place], [place] [address] [place] [address] [facility] [address] [place] [address] Glucose, POCT (10/22/2021 11:10 AM INSPECTOR GENERAL) Analysis Performed At Patho logist Time Signature Glucose, POCT, 131 70 - 140 10/22/2021 PCLX B mg/dL 11:21 AM INSPECTOR GENERAL Site Capillary 10/22/2021 PCLX 11:21 AM INSPECTOR GENERAL Specimen Anatomical Collection Method Collection Time Receive d Time (Source) Location / / Volume Laterality Blood 10/22/2021 11:10 10/22/2021 AM INSPECTOR GENERAL 11:21 AM INSPECTOR GENERAL Unknown Provider LAB POCT ORDERABLES-MANUAL Performing Organization Address City/[facility]/ZIP [facility] Phon e Number POC [facility] [address] [place] [address] [place] [address] [facility] [address] [facility] documented in this encounter Visit Diagnoses [...] tablet 1,000 mg Given 10/24/2021 9:03 AM INSPECTOR GENERAL 1,000 mg (TYLENOL) 1,000 mg, oral, 4 times daily, First dose on Meredith 10/22/21 at 2145 Given 10/23/2021 8:50 PM INSPECTOR GENERAL 1,000 mg Given 10/23/2021 5:27 PM INSPECTOR GENERAL 1,000 mg albuterol nebulizer solution 2.5 mg 2.5 mg, nebulization, Every 6 hours PRN, wheezing, shortness of breath, Starting on Meredith 10/22/21 at 2138 albuterol nebulizer solution 2.5 mg Given 10/24/2021 9:05 AM INSPECTOR GENERAL 2.5 mg 2.5 mg, nebulization, 2 times daily, First dose on Tue10/23/21 at 0900 Given 10/23/2021 9:06 PM INSPECTOR GENERAL 2.5 mg Given 10/23/2021 9:34 AM INSPECTOR GENERAL 2.5 mg aspirin chewable tablet 81 mg Given 10/23/2021 5:28 PM INSPECTOR GENERAL 81 mg 81 mg, oral, Every evening, First dose on Tue10/22/21 at 2130 Given 10/22/2021 10:06 PM INSPECTOR GENERAL 81 mg atorvastatin tablet 20 mg (LIPITOR) Given 10/23/2021 8:51 PM INSPECTOR GENERAL 20 mg 20 mg, oral, Daily at bedtime, First dose on Tue10/22/21 at 2145 Given 10/22/2021 10:06 PM INSPECTOR GENERAL 20 mg bisacodyL suppository 10 mg (DULCOLAX) 10 mg, rectal, Daily PRN, constipation, Starting on Tue10/22/21 at 202, Ordered sequence of administration: polyethylene glycol, then bisacodyl until BM achieved. electrolyte-A solution Continued from OR 10/22/2021 5:55 PM INSPECTOR GENERAL 20 mL/hr 20 mL/hr (PLASMA-LYTE A) 20 mL/hr, intravenous, Continuous, Starting on Meredith 10/22/21 at 1715, PACU & Post-Op electrolyte-A solution Continued from OR 10/22/2021 5:55 PM INSPECTOR GENERAL 20 mL/hr 20 mL/hr (PLASMA-LYTE A) 20 mL/hr, intravenous, Continuous, Starting on Meredith 10/22/21 at 1715, PACU & Post-Op famotidine tablet 20 mg (PEPCID) Given 10/23/2021 8:50 PM INSPECTOR GENERAL 20 mg 20 mg, oral, Daily at bedtime, First dose on Tue10/22/21 at 2145, Drug Monitoring Program: Pharmacist to adjust medication dosing based on indication and drug clearance factors. Given 10/22/2021 10:06 PM INSPECTOR GENERAL 20 mg fentaNYL injection 25 mcg (SUBLIMAZE) Given 10/22/2021 7:18 PM INSPECTOR GENERAL 25 mcg 25 mcg, intravenous, Every 2 min PRN, moderate pain or score 4-6 of 10, severe pain or score 7-10 of 10, Starting on Merdeith 10/22/21 at 1210, PACU (only), Up to maximum total dose of 200 mcg Given 10/22/2021 6:14 PM INSPECTOR GENERAL 25 mcg fentaNYL injection 25 mcg (SUBLIMAZE) Given 10/22/2021 9:01 PM INSPECTOR GENERAL 25 mcg 25 mcg, intravenous, Every 1 [...] interchanged for Budesonide/Formoterol Given 10/23/2021 9:48 AM INSPECTOR GENERAL 1 puff haloperidol lactate injection 1 mg [...] promethazine) heparin (porcine) Given 10/24/2021 5:27 AM INSPECTOR GENERAL 5,000 Units Left Lower Abdomen injection 5,000 Units 5,000 Units, subcutaneous, Every 8 hours scheduled, First dose on Tue10/23/21 at 0600 Given 10/23/2021 9:20 PM INSPECTOR GENERAL 5,000 Units Left Lower Abdomen Given 10/23/2021 2:43 PM INSPECTOR GENERAL 5,000 Units Left Upper Arm hydroCHLOROthiazide tablet 25 mg (HYDROD IURIL) Given 10/23/2021 5:28 PM INSPECTOR GENERAL 25 mg 25 mg, oral, Every evening, First dose on Tue10/22/21 at 2145 Given 10/22/2021 10:06 PM INSPECTOR GENERAL 25 mg HYDROmorphone (PF) injection 0.4 mg (DIL AUDID) 0.4 mg, intravenous, Every 1 hour PRN, moderate pain o r score 4-6 of 10, severe pain or score 7-10 of 10, if patient is unable to take oral analgesics, Starting on Tue10/22/21 at 5, For 1 dose, If pain score remains 4 or greater 1 hour after the second fentaNYL dose then administer HYDROmorphone . If pain remains 4 or greater after HYDROmorphone administration, call provi oriana. insulin aspart U-100 Given 10/22/2021 6:57 PM INSPECTOR GENERAL 4 Units Left Lower Abdomen injection 0-8 [...] 0.5-2.5 mg/3 mL Given 10/22/2021 11:04 AM INSPECTOR GENERAL 3 mL nebulizer solution 3 mL (DUONEB) 3 mL, nebulization, 4 times daily (RT), First dose on Tue10/22/21 at 1500, Pre-Op lactated Ringer's bolus 500 mL New Bag 10/23/2021 5:12 AM INSPECTOR GENERAL 500 mL 500 mL/hr 500 mL, intravenous, at 500 mL/hr, Administer over 1 Hours, Once, On Tue10/23/21 at 0515, For 1 dose levothyroxine tablet 50 mcg (SYNTHROID, Given 10/23/2021 8:50 PM INSPECTOR GENERAL 50 mcg LEVOTHROID) 50 mcg, oral, Daily at bedtime, First dose on Tue10/22/21 at 2145 Given 10/22/2021 10:06 PM INSPECTOR GENERAL 50 mcg losartan tablet 100 mg (COZAAR) Given 10/23/2021 5:28 PM INSPECTOR GENERAL 100 mg 100 mg, oral, Every evening, First dose on Meredith 10/22/21 at 2145 Given 10/22/2021 10:06 PM INSPECTOR GENERAL 100 mg naloxone injection 0.2 mg (NARCAN) 0.2 mg, intravenous, As needed, respirat ory depression, Starting on Meredith 10/22/21 at 2024, For respiratory rate less than 8 b reaths per minute or RASS score of -3, -4, -5. Apply oxygen to keep oxygen saturati ons greater than 90% and notify service. ondansetron (PF) injection 4 mg (ZOFRAN) Given 10/22/2021 6:27 PM INSPECTOR GENERAL 4 mg 4 mg, intravenous, Every 6 hours PRN, nausea, vomiting, (If patient has not received in the previous 6 hours), Starting on Meredith 10/22/21 at 1211, For 48 hours, PACU (only), Administer first. If nausea and vomiting persists, proceed with haloperidol. (order of antiemetic administration - ondansetron then haloperidol then granisetron) ondansetron (PF) injection 4 mg (ZOFRAN) Given 10/23/2021 9:11 AM INSPECTOR GENERAL 4 mg 4 mg, intravenous, Every 6 hours PRN, nausea, vomiting, Starting on Meredith 10/22/21 at 2024, For 48 hours, Reassess for nausea or vomiting after at least 10 minutes. If nausea or vomiting persists administer next ordered antiemetic medications (order for antiemetic medication administration ondansetron then droperidol then promethazine). Given 10/22/2021 10:27 PM INSPECTOR GENERAL 4 mg oxyCODONE IR tablet 10 mg [...] 5 mg (ROXICODONE) Given 10/23/2021 10:40 PM INSPECTOR GENERAL 5 mg 5 mg, oral, Every 4 hours PRN, moderate pain or score 4-6 of 10, Starting on Meredith 10/22/21 at 2024, Administer if pain is unrelieved by acetaminophen. May repeat dose once after 1 hour for persistent pain not to exceed 10 mg in 4 hours. Begin oral narcotics ONLY when tolerating oral diet. Given 10/23/2021 10:00 AM INSPECTOR GENERAL 5 mg polyethylene glycol powder packet 1 pack et (MIRALAX) 1 packet, oral, Daily PRN, constipation, Starting on Meredith 10/22/21 at 2024, Ordered sequence of administration: polyethylene glycol, then bisacodyl until BM achieved. Avoid mixing with starch-based thickened liquids. promethazine injection 6.25 mg (PHENERGA N) Given 10/23/2021 9:44 PM INSPECTOR GENERAL 6.25 mg 6.25 mg, intravenous, Every 6 [...] mg per Given 10/24/2021 9:03 A M INSPECTOR GENERAL 1 tablet tablet 1 tablet (SENOKOT-S) 1 tablet, oral, 2 times daily, First dose on Tue10/23/21 at 0900, Initiate ONLY when taking oral food and fluids. Do not give if patient has diarrhea or ostomy. Given 10/23/2021 8:50 PM INSPECTOR GENERAL 1 tablet vancomycin in NaCl 0.9% IVPB New Bag 10/22/2021 11:13 AM INSPECTOR GENERAL 1,250 mg 167 mL/hr 1,250 mg 1,250 [...] Recently Administered Medications Times are shown in INSPECTOR GENERAL. Scheduled Medication Order 10/22/2021 10/23/2021 10/24/2021 acetaminophen [...] request) 0904 (Given - Provider: Terrie Wilson RShitalNShital) 1 puff, inhalation, Daily (RT), First do [...] 2206 (G iven - Provider: Angie Finley RShitalNShital) 1728 (Given - Provider: Lester Hernandez R.N.) 25 mg, oral, Every evening, First dose on Tue10/22/21 at 2145 ipratropium-albuteroL 0.5-2.5 mg/3 mL ne bulizer solution 3 mL (DUONEB) (CANCELED) 1104 (Given - Provider: Kathie Orellana RShitalNShital) 3 mL, nebulization, 4 times daily (RT), First dose on Tue10/22/21 at 1500, Pre-Op lactated Ringer's bolus 500 mL (COMPLETED) 0512 (New Bag - Provider: Angie Finley RLanny) 500 mL, intravenous, at 500 mL/hr, Admin ister over 1 Hours, Once, On Tue10/23/21 at 0515, For 1 dose levothyroxine tablet 50 mcg (SYNTHROID, LEVOTHROID) 03 02 (Given - Provider: Angie Finley R.N.) 2049 (Given - Provider: Augustine Corcoran R.N., CCRN) 50 mcg, oral, Daily at bedtime, First dose on Tue10/22/21 at 214 5 losartan tablet 100 mg [...] mL/hr, Administer over 90 Minutes, Once, On Tue10/22/21 at 1100, For 1 dose, Pre-Op, Administer within 2 hours prior to surgic al incision, [facility] medication dosing based on indication and drug clearance factors., Indications: Prophylaxis, surgical Continuous Medication Order 10/22/2021 10/23/2021 10/24/2021 electrolyte-A solution (PLASMA-LYTE A) (CANCELED) 1752 (Continued from OR - Provider: Alicia Bland [...] (New Bag - Provider: Khurram Brink APRN, CRNA)1334 (Rate/Dose Change - Provider: Khurram Brink APRN, [...] of breath, Starting on Meredith 10/22/21 at 2137 bisacodyL suppository 10 mg (DULCOLAX) 10 mg, rectal, Daily PRN, constipation, Starting on Meredith 10/22/21 at 2024, Ordered sequence of administration: polyethylene glycol, then bisacodyl until BM achieved. cellulose, oxidized 1 X 2 pad (SURGICEL) (CANCELED) 1653 (Given - Provider: Valdez BlairSShital) As needed, Starting on Meredith 10/22/21 at 1653, Intra-Op fentaNYL injection 25 mcg (SUBLIMAZE) (CANCELED) 1813 (Given - Provider: Linda Randhawa R.N.)1917 (Given - Provider: Alicia Bland RShitalNShital) 25 [...] R.N.) 0-8 Units, subcutaneous, Every 2 hour [place] N, high blood sugar, Nurse to determine [...] As needed, respirat ory depression, Starting on Merdeith 10/22/21 at 2024, For respiratory rate less [...] (ZOFRAN) 2227 (Given - Provider: Angie Finley RLanny) 0911 (Given - Provider: Lester Hernandez R.N.) [...] 4-6 of 10, Starting on Tue10/22/21 at 2025
Administer if pain is unrelieved by acetaminophen. May repeat dose once after 1 hour for persist ent pain not to exceed 10 mg in 4 hours. Begin oral narcotics ONLY when tolerating oral diet.
Or oxyCODONE IR tablet 10 mg (ROXICODONE)Jump to med 10 mg, oral, Every 4 hours PRN, severe p ain or score 7-10 of 10, Starting on [facility] 10/22/21 at 2024
Administer if pain is unrelieved by acetaminophen. Do not give more than 10 mg of oxycodone in 4 hours. Begin oral narcotics ONLY when t olerating oral diet.
documented in this encounter
--- OUTSIDE RECORDS SUMMARY | 2022-04-07 09:35 | XMS_ITS | Encounter Summary ---
:1955 Author Organization [facility] Address [address] [place] [address] Care Team Providers Name Role Phone Unavailable Primary Care Provider Unavailable Encounter Details Date Type Department Care Team Description 11/02/2021 Clinical Communication Department of Radiation Kareem Pérez, Oncology in [place], P.A.-Estefanía., .S. [place] [address] [place] [address] [address] [place] [phone] Social History Tobacco Use Types Packs/Day Years [...] do you attend rastafarian or Never 2018 quaker services? Do you [...] 75 mcg daily. I called the patient's [id number], Darlin, to discuss the result. Darlin's phone [...] Radiology Mark Eastman M.D., M.S. [address] [place] [phone] 04/26/2022 Office Visit Otorhinolaryngology Roxanne Lanza, HYDRAULIC PUNCH PRESS OPERATOR, C.N.P. [address] [place] [phone] 04/28/2022 Appointment Radiation Oncology Ursula Aguirre M.D. [address] [place] [phone] documented as of this encounter Visit Diagnoses Not on filedocumented in this encounter
--- OUTSIDE RECORDS SUMMARY | 2022-04-07 09:35 | XMS_ITS | Encounter Summary ---
:[address] [facility] Address [address] [place] [address] Care Team Providers Name Role Phone Unavailable Primary Care Provider Unavailable Encounter Details Date Type Department Care Team Description 11/03/2021 Clinical Communication Division of Vascular and Sanna Newman, Endovascular Surgery in P.A.-C. [place], [place] [address] [facility] [address] [place] [phone] Social History Tobacco Use Types Packs/Day Years [...] do you attend restoration or Never 2018 orthodoxy services? Do you [...] in post-hospital follow-up. I spoke with her [id number] Darlin over the phone. Ms. Narayan has [...] agreement with the plan. Sanna Newman PA-C [facility] Department of Vascular and Endovascular Surgery Telephone Encounter - Sanna Newman P.A.-C. - 11/03/2021 1:06 PM CDT ----- Message from Rachel Harper APRN, C.N.P., M.S.N. sent at 10/23/2021 11:57 AM COMMODITY INDUSTRY ANALYST ----- Regarding: FU CALL documented in this encounter Plan of Treatment Upcoming Encounters Date Type Specialty Care Team Description 04/22/2022 Clinical Admitting/Central Communication Scheduling 04/26/2022 Appointment Radiology Mark Eastman M.D., M.S. [address] [place] [phone] 04/26/2022 Office Visit Otorhinolaryngology Roxanne Lanza, LACQUER SIZER, C.N.P. [address] [place] [phone] 04/28/2022 Appointment Radiation Oncology Ursula Aguirre M.D. [address] [place] [phone] documented as of this encounter Visit Diagnoses Not on filedocumented in this encounter
--- OUTSIDE RECORDS SUMMARY | 2022-04-07 09:35 | XMS_ITS | Encounter Summary ---
:[address] [facility] Address [address] [place] [address] Care Team Providers Name Role Phone Unavailable Primary Care Provider Unavailable Reason for Referral Outpatient (Routine) - Closed Specialty Diagnoses / Procedures Referred By Contact Refer red To Contact Vascular Surgery Carlotta Beth APRN, [facility] C.N.PShital, M.S.N. [address] [place] [phone] Referral ID Status Reason Start Date Expiration Date Visits Requ ested Visits Authorized [id number] Closed 11/05/2021 11/05/2022 1 1 Reason for Visit Reason Comments Post-op Outpatient (Routine) - Closed Specialty Diagnoses / Procedures Referred By Contact Tyler agarwal To Contact Vascular Surgery Sanna Newman P.A. -C. [address] [phone] Referral ID Status Reason Start Date Expiration Date Visits Requ ested Visits Authorized [id number] Closed 11/03/2021 11/03/2022 1 1 Encounter Details Date Type Department Care Team Description 11/05/2021 Office Visit Division of Vascular Mary Newman P.A.-C. [address] [place] [phone] Wound Postoperative and Endovascular Carlotta Beth APRN, C.N.P., M.S.N. [address] [place] [phone] Exam (Primary Dx) Surgery in [place], [place] [address] [place] [phone] Social History Tobacco Use Types Packs/Day Years [...] do you attend protestant or Never 2018 restorationism services? Do you [...] or, in an emergency situation, through the [facility] freezer operator at (Service pager: [phone]). Watch left groin closely for any signs [...] home postoperatively. Ms. Narayan returns to the [facility] today for wound assessment. Ms. [...] Appointment Radiology Mark Eastman M.D., M.S. [address] [place] [phone] 04/26/2022 Office Visit Otorhinolaryngology Roxanne Lanza APRN, C.N.P. [address] [place] [phone] 04/28/2022 Appointment Radiation Oncology Ursula Aguirre M.D. [address] [place] [phone] Scheduled Referrals Name Type Priority Associated Diagnoses Order S chedule Vascular Surgery Outpatient Referral Routine Expe cted: Post Op (clinic) 11/13/2021, Expires: 02/05/2023 documented as of this encounter Visit Diagnoses Diagnosis Wound Postoperative Exam - Primary documented in this encounter
--- OUTSIDE RECORDS SUMMARY | 2022-04-07 09:35 | XMS_ITS | Encounter Summary ---
:1955 Author Organization [facility] Address [address] [place] [address] Care Team Providers Name Role Phone Unavailable Primary Care Provider Unavailable Encounter Details Date Type Department Care Team Description 10/29/2021 Hospital Encounter Department of Summer Pérez Hypothy roidism Laboratory Medicine P.Marilou., M.S . Secondary in [place], [address] [place] [address] 300 [facility] [phone] [place], [place] [phone] (Work) [phone] Social History Tobacco Use Types Packs/Day Years [...] do you attend pentecostalism or Never 2018 religion services? Do you [...] Radiology Mark Eastman M.D., M.S. [address] [place] [phone] 04/26/2022 Office Visit Otorhinolaryngology Roxanne Lanza APRN, C.NDori [address] [place] [phone] 04/28/2022 Appointment Radiation Oncology Ursula Aguirre M.D. [address] [place] [phone] documented as of this encounter Procedures Procedure Name Priority Date/Time Associated Diagnosis Comme nts AL MICROSOMAL AB Routine 10/30/2021 7:09 PM Resul ts for this EA/TPO CDT procedure are i n the results section. AL T4 FREE Routine 10/29/2021 12:47 Results for [...] City/State/ZIP Code Phon e Number [facility] - [address] [place] [address] [address] [facility] [place] [address] Laboratories-[facility] 200 [facility] T4 (Thyroxine), Free, Serum (10/29/2021 12:47 [...] M.S. LAB BLOOD ADD-ON Performing Organization Address City/[facility]/ZIP Code Phon e Number [facility]- [address] [place] [address] [place] [address] System in [place] [address] [place] [address] (ABNORMAL) Thyroid Function [place] (10/29/2021 12:47 PM CDT) P athologist Signature TSH, Sensitive 7.0 (H) 0.3 - 4.2 10/29/2021 OWAT mIU/L 5:10 PM CDT Specimen Anatomical Collection Method Collection Time Receive d Time (Source) Location / / Volume Laterality Blood (Blood, 10/29/2021 12:47 10/29/2021 3:29 Venous) PM CDT PM CDT Summer Pérez P.A.-C., M.S. LAB BLOOD ADD-ON Performing Organization Address City/[facility]/ZIP Code Phon e Number [facility]- [address] [place] [id number] [place] [address] documented in this encounter Visit Diagnoses Diagnosis Hypothyroidism Secondary documented in this encounter
--- OUTSIDE RECORDS SUMMARY | 2022-04-07 09:35 | XMS_ITS | Encounter Summary ---
:1955 Author Organization [facility] Address [address] [place] [address] Care Team Providers Name Role Phone Unavailable [...] Expiration Date Visits Requ ested Visits Authorized [id number] 1 1 Encounter Details Date Type Department Care Team Description 10/22/2021 Anesthesia Event RST ROMB MAIN OR Aman Rasmussen M.D. [address] [place] [phone] [address] [facility] Khurram Brink, ELECTRICAL CHECKOUT MECHANIC, SAND SIFTER [address] [place] [phone] [place] [phone] Anesthesia Record Procedure Summary Procedure Name Responsible Anesthesia Start Anesthesia Stop Anesthesiologist Time Time Endovascular abdominal Aman Rasmussen M.D. 10/22/21 1246 0 10/22/21 1803 aortic aneurysm repair with Tad endoprosthesis. Ultrasound-guided bilateral common femoral artery access. [...] h andoff to the receiving staff during [facility] we 1. Identified the patient 2. Ident [...] Stephie Ramirez Ringhofer, Stephen (created via procedure ELECTRICAL CHECKOUT MECHANIC, SAND SIFTER, DNAP N, ELECTRICAL CHECKOUT MECHANIC, SAND SIFTER documentation); Mask Ventilation: Oral/Nasal airway needed (edentulous); [...] tolerated procedure well with no immediate complications. [facility]. ; Removal Date: 10/22/21; Removal Time: 1746 Arterial Line Placement Date: 10/22/21; 10/22/21 1307 by 10/23 0900 by Placemnt Time: 1307 Stephie Ramirez Domingo, And rea K, (created via procedure ELECTRICAL CHECKOUT MECHANIC, SAND SIFTER, DNAP R.N. documentation); Size: 20 G; Orientation: Left; Location: Radial; Site Prep: Chlorhexidine (Preferred); Technique: Anatomical landmarks; Insertion Attempts: 1; Securement: Securement dressing, Securement device; Removal Date: 10/23/21; Removal Time: 0900; Removal Reason: Per order Peripheral IV Placement Date: 10/22/21; 10/22/21 1308 by 10/24 1212 by Placement Time: 1308; Stephie Ramirez Reicks, Ka telyn E, Catheter Size: 16 G; ELECTRICAL CHECKOUT MECHANIC, SAND SIFTER, DNAP R.N. Orientation: Right; Location: Forearm; Removal [...] do you attend episcopal or Never 2018 alevism services? Do you [...] Procedure Summary Date: 10/22/21 Room / Location: [address] 01 [facility] / [facility] in [place], [place] Anesthesia Start: 1246 Anesthesia Stop: 1803 [...] Post Op nausea/vomiting: none Hydration status: euvolemic NSION SUPERVISOR Anesthesia Procedure Notes - Stephie Ramirez APRN, [...] yes Complications - arterial: none ATTESTATION STATEMENT NSION SUPERVISOR Anesthesia Procedure Notes - Asaf Juarez M.D. - 10/22/2021 1:03 PM EXTENSION SUPERVISOR Associated Order(s): Airway Airway Date/Time: 10/22/2021 1:01 [...] tolerated procedure well with no immediate complications. [facility]. PRE PROCEDURE DETAILS: Pre evaluation for airway management: procedure Urgency: elective Preop assessment of probable difficulty: anticipated / known difficult airway Preoxygenation: bag valve mask SEDATION / ANESTHESIA Anesthesia method: anesthesia POST PROCEDURE DETAILS: Procedure outcome: successful Airway event: no complications ATTESTATION STATEMENT NSION SUPERVISOR Anesthesia Preprocedure Evaluation - Asaf Juarez M.D. - 10/22/2021 12:06 PM CST Preprocedure Anesthesia & H&P Assessment Procedure Summary Date/Time: 10/22/21 1207 Procedures: IR ABDOMEN AORTA STENT GRAFT, Proceed as indicated. (N/A ) IR IMAGING. (N/A ) Diagnosis: Aneurysm Abdominal Aortic Without Rupture (HCC) [I71.4] Pre-op diagnosis: Aneurysm Abdominal Aortic Without Rupture (HCC) [I71.4]. Location: [place] [address] [address] / [facility] in [place], [place] Providers: Mark Eastman M.D., M.S. Pertinent [...] with patient /legal guardian or through an translator/interpreter. Risks/Benefits/Alternatives of Blood transfusion discussed with patient / legal guardian, including an opportunity to ask questions and/or decline some or all transfusion therapies. The patient / legalguardian consented to the use of all blood products, as deemed medically necessary Approval to Proceed: approved for anesthesia NSION SUPERVISOR documented in this encounter Plan of Treatment Upcoming Encounters Date Type Specialty Care Team Description 04/22/2022 Clinical Admitting/Central Communication Scheduling 04/26/2022 Appointment Radiology Mark Eastman M.D., M.S. [address] [place] [phone] 04/26/2022 Office Visit Otorhinolaryngology Roxanne Lanza APRN, C.N.P. [address] [place] [phone] 04/28/2022 Appointment Radiation Oncology Ursula Aguirre M.D. [address] [place] [phone] documented as of this encounter Procedures Procedure Name Priority Date/Time Associated Comments Diagnosis LDA ANE ARTERIAL LINE Routine 10/22/2021 1:07 PM Results for this INSERTION EXTENSION SUPERVISOR procedure are i n the results section. [place] ARTL CATH/CNULA Routine 10/22/2021 1:07 PM Res ults for this MONITOR PERC EXTENSION SUPERVISOR procedure are i n the results section. LDA ANE ENDOTRACHEAL Routine 10/22/2021 1:01 PM R esults for this AIRWAY EXTENSION SUPERVISOR procedure are i n the results section. documented in this encounter Results [place] ARTL CATH/CNULA MONITOR PERC, LDA ANE ARTERIAL LINE INSERTION (10/22/2021 1:07 PM EXTENSION SUPERVISOR) Narrative Stephie Ramirez APRN, CRNA, DNAP - 10/22 1:07 PM EXTENSION SUPERVISOR Stephie Ramirez APRN, CRNA, DNAP ? 10/22/2021 [...] LDA ANE ENDOTRACHEAL AIRWAY (10/22/2021 1:01 PM EXTENSION SUPERVISOR) Narrative Asaf Juarez M.D. - 10/22/2021 1: 01 PM EXTENSION SUPERVISOR Asaf Juarez M.D. ? 10/22/2021 ??1:28 PM Airway Date/Time: 10/22/2021 1:01 PM Performed by: Stephie Ramirez APRN, SAND SIFTER , DNAP Authorized by: Asaf Juarez M.D. [...] procedure well with no immedia te complications. [facility]. ?? PRE PROCEDURE DETAILS: Pre evaluation for [...] Site acetaminophen injection Given 10/22/2021 4:59 PM EXTENSION SUPERVISOR 1,000 mg intravenous, Administer over 15 Minutes, As needed, Starting on Meredith 10/22/21 at 1659, Anesthesia Intra-op dexAMETHasone injection (DECADRON) Given 10/22/2021 1:19 PM EXTENSION SUPERVISOR 4 mg intravenous, As needed, Starting on Meredith 10/22/21 at 1319, Anesthesia Intra-op electrolyte-A solution (PLASMA-LYTE A) New Bag 10/22/2021 4:20 PM EXTENSION SUPERVISOR intravenous, Continuous Infusion: Per Instructions PRN, Starting on Meredith 10/22/21 at 1255, Anesthesia Intra-op New Bag 10/22/2021 12:55 PM EXTENSION SUPERVISOR electrolyte-A solution (PLASMA-LYTE A) New Bag 10/22/2021 1:08 PM EXTENSION SUPERVISOR intravenous, Continuous Infusion: Per Instructions PRN, Starting on Meredith 10/22/21 at 1308, Anesthesia Intra-op fentaNYL injection (SUBLIMAZE) Given 10/22/2021 4:08 PM EXTENSION SUPERVISOR 50 mcg intravenous, As needed, Starting on Meredith 10/22/21 at 1255, Anesthesia Intra-op Given 10/22/2021 1:02 PM EXTENSION SUPERVISOR 50 mcg Given 10/22/2021 12:55 PM EXTENSION SUPERVISOR 50 mcg heparin (porcine) 1,000 unit/mL Given 10/22/2021 3:17 PM EXTENSION SUPERVISOR 2,0 00 Units injection intravenous, As needed, Starting on Meredith 10/22/21 at 1437, Anesthesia Intra-op Given 10/22/2021 2:37 PM EXTENSION SUPERVISOR 8,000 Units lidocaine (PF) (cardiac) injection Given 10/22/2021 12:56 PM EXTENSION SUPERVISOR 80 mg intravenous, As needed, Starting on Meredith 10/22/21 at 1256, Anesthesia Intra-op ondansetron (PF) injection (ZOFRAN) Given 10/22/2021 4:58 PM EXTENSION SUPERVISOR 4 mg intravenous, As needed, Starting on Meredith 10/22/21 at 1658, Anesthesia Intra-op phenylephrine 80 mcg/mL Restarted 10/22/2021 4:25 PM 0.3 mcg/kg/ min 19.418 mL/hr in NaCl 0.9% 250 mL EXTENSION SUPERVISOR infusion 0-1 mcg/kg/min ? 86.3 kg Dosing weight (0-64.725 mL/hr, rounded to 0-64.73 mL/hr), intravenous, Continuous, Starting on Meredith 10/22/21 at 1315, Intra-Op, 20 mg in 250 mL, Patient Type: Standard, initiate at: Other, Rate: Per Provider, Titrate at: Other, Titrate: Per Provider, Goal: Other, Goal: Per Provider Rate/Dose Change 10/22/2021 3:30 PM EXTENSION SUPERVISOR 0.3 mcg/kg/min 19.418 mL/hr Rate/Dose Change 10/22/2021 3:11 PM EXTENSION SUPERVISOR 0.2 mcg/kg/min 12.945 mL/hr phenylephrine injection Given 10/22/2021 4:26 PM EXTENSION SUPERVISOR 200 mcg intravenous, As needed, Starting on Meredith 10/22/21 at 1310, Anesthesia Intra-op Given 10/22/2021 1:21 PM EXTENSION SUPERVISOR 100 mcg Given 10/22/2021 1:17 PM EXTENSION SUPERVISOR 100 mcg propofoL injection (DIPRIVAN) Given 10/22/2021 1:02 PM EXTENSION SUPERVISOR 70 mg intravenous, As needed, Starting on Meredith 10/22/21 at 1256, Anesthesia Intra-op Given 10/22/2021 12:59 PM EXTENSION SUPERVISOR 40 mg Given 10/22/2021 12:56 PM EXTENSION SUPERVISOR 40 mg protamine injection Given 10/22/2021 4:46 PM EXTENSION SUPERVISOR 30 mg intravenous, As needed, Starting on Meredith 10/22/21 at 1646, Anesthesia Intra-op rocuronium injection (ZEMURON) Given 10/22/2021 3:52 PM EXTENSION SUPERVISOR 10 mg intravenous, As needed, Starting on Meredith 10/22/21 at 1259, Anesthesia Intra-op Given 10/22/2021 12:59 PM EXTENSION SUPERVISOR 50 mg documented in this encounter
--- OUTSIDE RECORDS SUMMARY | 2022-04-07 09:35 | XMS_ITS | Encounter Summary ---
:1955 Author Organization [facility] Address [address] [place] [address] Care Team Providers Name Role Phone Unavailable Primary Care Provider Unavailable Encounter Details Date Type Department Care Team Description 10/19/2021 Admin Visit Department of Family Medicine, [address] [phone] [facility] [phone] Social History Tobacco Use Types Packs/Day Years [...] do you attend advent or Never 2018 zoroastrian services? Do you [...] Radiology Mark Eastman M.D., M.S. [address] [place] [phone] 04/26/2022 Office Visit Otorhinolaryngology Roxanne Lanza APRN, C.N.P. [address] [place] [phone] 04/28/2022 Appointment Radiation Oncology Ursula Aguirre M.D. [address] [place] [phone] documented as of this encounter Visit Diagnoses Not on filedocumented in this encounter Additional Health Concerns Infection Onset Date Last Indicated Resolved Time COVID19 Pending 10/19/2021 10/19/2021 10/20/2021 1:47 AM BREAK OFF WORKER documented as of this encounter
--- OUTSIDE RECORDS SUMMARY | 2022-04-07 09:35 | XMS_ITS | Encounter Summary ---
:1955 Author Organization [facility] Address [address] [place] [phone] Care Team Providers Name Role Phone Unavailable Primary Care Provider Unavailable Reason for Referral MRI/CAT/PET Scan (Routine) - Authorized Specialty Diagnoses / Procedures Referred By Contact Refer red To Contact Radiology Diagnoses Aneurysm Abdominal Aortic Without Rupture (HCC) Mark Eastman [facility] Procedures CT Abdomen Pelvis Angiogram with IV Contrast Kimberley, M.S. [address] [place] [address] [phone] Referral ID Status Reason Start Date Expiration Date Visits V isits Requested Authorized [id number] Authorized 10/23/2021 10/23/2022 1 1 utpatient (Routine) - Authorized Specialty Diagnoses / Procedures Referred By Contact Refer red To Contact Vascular Surgery Mark Eastman [facility] Allyson., M.S. [address] [place] [phone] Referral ID Status Reason Start Date Expiration Date Visits V isits Requested Authorized [id number] Authorized 10/23/2021 10/23/2022 1 1 STRIAL ENGINEERING MANAGER Encounter Details Date Type Department Care Team Description 10/23/2021 Clinical Communication Division of Vascular Carlin Harper and Endovascular AMAYA Mendez, C.N.P., Surgery in [facility] [address] [facility] [address] [place] [phone] Social History Tobacco Use Types Packs/Day Years [...] do you attend rastafarian or Never 2018 advent services? Do you [...] Page R.N., C.Lashonda.O.C.N. - 10/23/2021 5:08 PM INDUSTRIAL ENGINEERING MANAGER Addended by: SHELL PAGE on: 10/23/2021 05:08 PM Modules accepted: Orders STRIAL ENGINEERING MANAGER documented in this encounter Plan of Treatment Upcoming Encounters Date Type Specialty Care Team Description 04/22/2022 Clinical Admitting/Central Communication Scheduling 04/26/2022 Appointment Radiology Mark Eastman M.D., M.S. [address] [place] [phone] 04/26/2022 Office Visit Otorhinolaryngology Roxanne Lanza APRN, C.N.P. [address] [place] [phone] 04/28/2022 Appointment Radiation Oncology Ursula Aguirre M.D. [address] [place] [phone] Scheduled Orders Name Type Priority Associated Diagnoses Order S chedule CT Abdomen Pelvis Imaging RAD - Routine (most Aneurysm Abdomin al Expected: Angiogram with IV inpatients and all Aortic Without Contrast outpatients) Rupture (HCC) (Approximate), Expires: 10/23/2022 Scheduled Referrals Name Type Priority Associated Diagnoses Order S [facility] Vascular Surgery Outpatient Referral Routine Expe cted: office visit 01/23/2022 (clinic) (Approximate), Expires: 01/23/2023 documented as of this encounter Visit Diagnoses Diagnosis Aneurysm Abdominal Aortic Without Ruptur e (HCC) - Primary documented in this encounter
--- OUTSIDE RECORDS SUMMARY | 2022-04-07 09:35 | XMS_ITS | Encounter Summary ---
:1955 Author Organization [facility] Address [address] [place] [address] Care Team Providers Name Role Phone Unavailable [...] Expiration Date Visits Requ ested Visits Authorized [id number] 1 1 Encounter Details Date Type Department Care Team Description 10/22/2021 Surgery RST ROMB MAIN OR Mark Mcneil Endovascular abdominal [address] [facility] Kimberley Frederick, M.S. aortic aneurysm repair [place] [address] [facility] with [place] [id number] [place], [place] endoprosthesis. [phone] Ultrasound-guided [phone] (Wo rk) bilateral common femoral artery ac [...] do you attend jainism or Never 2018 yarsani services? Do you [...] Comments Blood Pressure 163/81 10/22/2021 9:46 AM CHEMISTRY LECTURER Pulse 89 10/22/2021 9:46 AM CHEMISTRY LECTURER Temperature 36.8 ??C (98.2 ??F) 10/22/2021 9:46 AM CHEMISTRY LECTURER Respiratory Rate 24 10/22/2021 9:46 AM CHEMISTRY LECTURER Oxygen Saturation 100% 10/22/2021 9:46 AM CHEMISTRY LECTURER Inhaled Oxygen Concentration - - Weight 86.3 kg (190 lb 4.1 oz) 10/22/2021 9:46 AM CHEMISTRY LECTURER Height 164 cm (5' 4.57) 10/22/2021 9:46 AM CHEMISTRY LECTURER Body Mass Index 31.08 10/22/2021 9:46 AM CHEMISTRY LECTURER documented in this encounter Discharge Summaries Sanna Newman P.A.-C. - 10/24/2021 11:59 AM CST DISCHARGE SUMMARY BRIEF OVERVIEW Hospital: [facility] Discharge Provider: Mark Mcneil M.D. Primary Team: [facility] Vascular Surgery - [facility] No primary care provider on file. Primary [...] 10/22/2021 Endovascular abdominal aortic aneurysm repair with [place] endoprosthesis. Ultrasound-guided bilateral common femoral artery access., IR IMAGING., Left common femoral endarterectomy with bovine pericardial patch angioplasty Mark Mcneil M.D., M.S.Tai Colunga M.B.B.S. [facility] ROMB OR DISCHARGE DISPOSITION Home [...] dismissal, pain medication (examples: oxycodone, Dilaudid, Tramadol, [place], etc.) will be prescribed to you if needed. Duration will be determined on a mmvr-db-aodh basis and will notexceed 2 weeks. Thereafter, [...] contact the vascular scheduling office by calling [phone]. Should you need to contact Dr. Mcneil or his service in the interim, you may do so through his biomedical equipment support specialist at during normal business hours of 8 to 5 Tuesday through Tuesday (excluding holidays) or, in an emergency situation, through the [facility] hydrator operator at (Service pager: [phone]). Mepilex Border Post-Op Ag 1. You had [...] call Dr. Mcneil's nurse practitioner through the [facility] hydrator operator [phone]. 7. After removing the dressing, keep the groin area clean and dry. None OUTPATIENT FOLLOW UP Scheduled Appointments 10/29/2021 8:30 AM LAB 01 [facility] Laboratory Medicine For appointment details refer to [...] were provided to the patient and caregiver(s). ISTRY LECTURER documented in this encounter Discharge Instructions AttachmentsThe following attachments cannot be sent through Care Everywhere. Acetaminophen (By mouth) (South African)Oxycodone, Rapid Release (By mouth) (South African) Polyethylene Glycol 3350 (By mouth) (South African)Laxative, Stool Softeners (By mouth) (South African)documented in this encounter Medications at Time of [...] evening. diaper,brief,adult,disposable (DEPEND UNDERWEAR FOR WOMEN XL) [facility] [place] -- Bag: (36 each) famotidine (PEPCID) [...] of simvastatin, she will switch to atorvastatin. ISTRY LECTURER documented in this encounter Nursing Notes Terrie Wilson R.N. - 10/24/2021 12:40 PM CST Shift Goals: Discharge to home with son and [id number] Identify possible barriers to meeting goals/advancing plan of care: None End of Shift Summary: Vital signs stable. PIVs removed. Pain tolerable. After visit summary gone over with patient and [id number]. All questions answered. 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 Patient escorted out by wheelchair and discharged home. documented in this encounter OR Notes Op Note - Mark Mcneil M.D., M.S. - 10/22/2021 1:59 PM CST Date of Surgery: 10/22/2021 Procedure(s): Endovascular abdominal aortic aneurysm repair with [place] endoprosthesis. Ultrasound-guided bilateral common femoral artery access. IR IMAGING. Left common femoral endarterectomy with bovine pericardial patch angioplasty Surgeon(s) and Role: * Mark Mcneil M.D., M.S. - Primary * Tai Colunga M.B.B.S. - Boot And Saddle Repair Person Passenger Car Conductor(s): Anesthesia Type: General Pre-Operative Diagnosis: Aneurysm Abdominal Aortic Without Rupture (HCC) [I71.4]. Endovascular AAA Repair Operative Report: [facility] ENDOVASCULAR AAA REPAIR: Post-Op: Post-op diagnosis: [...] Concomitant embolization: None Device comments: Main body [id number] Right limb [id number] Complications: Any complications/Endoleak: Non-endoleak complication and endoleak [...] was established, we upsized to a 5- Bengali sheath using a Seldinger technique. Two Perclose devices were then deployed in a preclose technique for later arterial closure. We then upsized to 8-Bengali sheaths. A Lunderquist wire was advanced into [...] Implants: Implant Name LRB Site No. Used Quality Intern Mfr No. Serial No. Status Type GRFT EXC AAA [place] BDY [id number] - [id number] - [id number] N/A 1 [place] [id number] Implanted Vascular Graft GRFT EXC AAA EXT 12X12 - [id number] - [id number] N/A 1 [place] [id number] Implanted Vascular Graft CLP HRZN TI 6 CLP MD M[place] - [id number] N/A 1 [employer] [id number] Implanted Hardware e.g. pins/screws/rods CLP LGC LGT TI SM - [id number] N/A 1 [employer] [id number] Implanted Hardware e.g. pins/screws/rods CLP HRZN TI 6 CLP [place] - [id number] N/A 2 [employer] [id number] Implanted Hardware e.g. pins/screws/rods GRFT VSC BOV 0.8X8 - [id number] N/A 1 [employer] [id number] Implanted Mesh or Patch Intra-op Medications: Intra-op [...] 250 mL infusion 0 mcg/kg/min intravenous Stopped [facility], S 10/22/2021 1625 phenylephrine 80 mcg/mL in NaCl 0.9% 250 mL infusion 0.3 mcg/kg/min intravenous Restarted [facility], S 10/22/2021 1609 phenylephrine 80 mcg/mL in NaCl 0.9% 250 mL infusion 0 mcg/kg/min intravenous Stopped [facility], S 10/22/2021 1530 phenylephrine 80 mcg/mL in NaCl 0.9% 250 mL infusion 0.3 mcg/kg/min intravenous Rate/Dose Change [facility], S 10/22/2021 1511 phenylephrine 80 mcg/mL in NaCl 0.9% 250 mL infusion 0.2 mcg/kg/min intravenous Rate/Dose [facility] 10/22/2021 1440 phenylephrine 80 mcg/mL in NaCl 0.9% 250 mL infusion 0.4 mcg/kg/min intravenous Rate/Dose Change [facility], [facility] 10/22/2021 1432 phenylephrine 80 mcg/mL in NaCl 0.9% 250 mL infusion 0.2 mcg/kg/min intravenous Rate/Dose Change [facility], S 10/22/2021 1348 phenylephrine 80 mcg/mL in NaCl 0.9% 250 mL infusion 0.5 mcg/kg/min intravenous Rate/Dose Change [facility], [facility] 10/22/2021 1334 phenylephrine 80 mcg/mL in [...] Units topical Given Dm Colunga M.D., M.S. ISTRY LECTURER Brief Op Note - Tai Colunga M.B.B.S. - 10/22/2021 1:59 PM CST Pre-op Diagnosis Aneurysm Abdominal Aortic Without Rupture (HCC) Post-op Diagnosis Aneurysm Abdominal Aortic Without Rupture (HCC) Procedure EVAR for infrarenal AAA Left femoral endarterectomy with patch angioplasty [place] BlairSShital ISTRY LECTURER documented in this encounter Miscellaneous Notes Hospital [...] monitored primary care provider for ongoing management. ISTRY LECTURER documented in this encounter Plan of Treatment Upcoming Encounters Date Type Specialty Care Team Description 04/22/2022 Clinical Admitting/Central Communication Scheduling 04/26/2022 Appointment Radiology Mark Mcneil M.D., M.S. [address] [place] [phone] 04/26/2022 Office Visit Otorhinolaryngology Roxanne Lanza APRN, C.N.P. [address] [place] [phone] 04/28/2022 Appointment Radiation Oncology Ursula Aguirre M.D. [address] [place] [phone] documented as of this encounter Procedures Procedure Name Priority Date/Time Associated Comments Diagnosis ECG Routine 10/24/2021 11:08 Results for AM CHEMISTRY LECTURER this procedure are in the results section. ADULT OXYGEN THERAPY Routine 10/23/2021 8:01 AM CHEMISTRY LECTURER CBC WITHOUT Routine 10/23/2021 4:53 Results for DIFFERENTIAL, B AM CHEMISTRY LECTURER this procedu re are in the results section. BASIC METABOLIC Routine 10/23/2021 4:53 Results f or PANEL, S/P AM CHEMISTRY LECTURER this procedure are in the results section. TROPONIN T, 2H/6H, Timed 10/22/2021 10:58 Resul ts for 5TH GEN, P PM CHEMISTRY LECTURER this procedure are in the results section. TROPONIN T, BASELINE, STAT 10/22/2021 8:51 Res ults for 5TH GEN, P PM CHEMISTRY LECTURER this procedure are in the results section. ECG STAT 10/22/2021 8:43 Results for PM CHEMISTRY LECTURER this procedure are in the results section. ADULT OXYGEN THERAPY Routine 10/22/2021 8:25 PM CHEMISTRY LECTURER ADULT OXYGEN THERAPY Routine 10/22/2021 8:25 PM CHEMISTRY LECTURER ADULT OXYGEN THERAPY Routine 10/22/2021 8:25 PM CHEMISTRY LECTURER GLUCOSE POCT, B Routine 10/22/2021 6:16 Results f or PM CHEMISTRY LECTURER this procedure are in the results section. IR IMAGING RAD - Routine 10/22/2021 5:49 Aneurysm Results for (most inpatients PM CHEMISTRY LECTURER Abdominal Aortic this pr ocedure and all Without Rupture are in the outpatients) ([facility]) results section. IR ABDOMEN AORTA RAD - Routine 10/22/2021 5:49 Aneurysm Results for STENT GRAFT (most inpatients PM CHEMISTRY LECTURER Abdominal Aortic this pr ocedure and all Without Rupture are in the outpatients) ([facility]) results section. IR FEMORAL ARTERY RAD - Routine 10/22/2021 5:49 Aneurysm Result s for ENDARTERECTOMY (most inpatients PM CHEMISTRY LECTURER Abdominal Aortic this procedure and all Without Rupture are in the outpatients) ([facility]) results section. ACT, POCT, B Routine 10/22/2021 3:40 Results for PM CHEMISTRY LECTURER this procedure are in the results section. GLUCOSE POCT, B Routine 10/22/2021 3:39 Results f or PM CHEMISTRY LECTURER this procedure are in the results section. ACT, POCT, B Routine 10/22/2021 3:13 Results for PM CHEMISTRY LECTURER this procedure are in the results section. ACT, POCT, B Routine 10/22/2021 2:47 Results for PM CHEMISTRY LECTURER this procedure are in the results section. SODIUM, B STAT 10/22/2021 1:43 Results for PM CHEMISTRY LECTURER this procedure are in the results section. ABG W/COOX STAT 10/22/2021 1:43 Results for PM CHEMISTRY LECTURER this procedure are in the results section. POTASSIUM, B STAT 10/22/2021 1:43 Results for PM CHEMISTRY LECTURER this procedure are in the results section. GLUCOSE, WHOLE BLOOD STAT 10/22/2021 1:43 Resu lts for PM CHEMISTRY LECTURER this procedure are in the results section. CALCIUM, IONIZED, S/B STAT 10/22/2021 1:43 Res ults for PM CHEMISTRY LECTURER this procedure are in the results section. ACT, POCT, B Routine 10/22/2021 1:41 Results for PM CHEMISTRY LECTURER this procedure are in the results section. ADULT OXYGEN THERAPY Routine 10/22/2021 12:12 PM CHEMISTRY LECTURER GLUCOSE POCT, B Routine 10/22/2021 11:10 Results for AM CHEMISTRY LECTURER this procedure are in the results section. documented in this encounter Results ECG 12 Lead (10/24/2021 11:08 AM CHEMISTRY LECTURER) P athologist Signature Ventricular Rate 94 BPM MUSE ECG/Min [place] Interval 162 ms MUSE QRSD Interval 78 ms MUSE QT Interval 360 ms MUSE QTC Interval 450 ms MUSE P [place] 15 degrees MUSE R [place] -1 degrees MUSE T Wave [place] 46 degrees MUSE Specimen Anatomical Collection Method Collection Time Receive d Time (Source) Location / / Volume Laterality 10/24/2021 11:08 10/24/2021 AM CHEMISTRY LECTURER 11:27 AM CHEMISTRY LECTURER Impressions MUSE - 10/24/2021 11:27 AM CHEMISTRY LECTURER Normal sinus rhythm Nonspecific ST abnormality When [...] (ABNORMAL) Basic Metabolic Panel (10/23/2021 4:53 AM CHEMISTRY LECTURER) Analysis Performed At [facility] logist Time Signature Potassium, S 4.1 3.6 - 5.2 10/23/2021 DTL mmol/L 6:08 AM CHEMISTRY LECTURER Sodium, S 137 135 - 145 10/23/2021 DTL mmol/L 6:08 AM CHEMISTRY LECTURER Chloride, S 102 98 - 107 10/23/2021 DTL mmol/L 6:08 AM CHEMISTRY LECTURER Bicarbonate, S 24 22 - 29 10/23/2021 DTL mmol/L 6:08 AM CHEMISTRY LECTURER Anion Gap 11 7 - 15 10/23/2021 DTL 6:08 AM CHEMISTRY LECTURER BUN (Blood Urea 15 6 - 21 10/23/2021 DTL Nitrogen), S mg/dL 6:08 AM CHEMISTRY LECTURER Creatinine 1.08 (H) 0.59 - 10/23/2021 DTL 1.04 mg/dL 6:08 AM CHEMISTRY LECTURER eGFR-Non 54 (L) >=60 10/23/2021 DTL Black/ mL/min/BSA 6:08 AM CHEMISTRY LECTURER Prydeinig Comment: ----ADDITIONAL INFORMATION---- Estimated GFR calculated using the 2009 CKD_EPI creatinine equation. eGFR-Black/ 62 >=60 mL/min/BSA 2021 6:08 AM CHEMISTRY LECTURER DTL Comment: ----ADDITIONAL INFORMATION---- Estimated GFR calculated using the 2009 CKD_EPI creatinine equation. Calcium, Total, S 8.1 (L) 8.8 - 10.2 mg/dL 10/23/2021 6:08 AM CHEMISTRY LECTURER DTL Glucose, S 143 (H) 70 - 140 mg/dL 10/23/2021 6:08 AM CHEMISTRY LECTURER D TL Specimen Anatomical Collection Method Collection Time Receive d Time (Source) Location / / Volume Laterality Blood (Blood, 10/23/2021 4:53 AM 10/24/19 5:50 Venous) CHEMISTRY LECTURER AM CHEMISTRY LECTURER Tai Chiu LAB BLOOD ADD-ON Performing Organization Address City/State/ZIP Code Phon e Number [facility] - [address] [place], [place] [address] [facility] [place] [address] Laboratories-[facility] [address] (ABNORMAL) CBC without Differential (10/23/2021 4:53 AM CHEMISTRY LECTURER) Patholo gist Method Time Signature Hemoglobin 9.3 (L) 11.6 - 10/23/2021 DTL 15.0 g/dL 5:40 AM CHEMISTRY LECTURER Hematocrit 28.5 (L) 35.5 - 10/23/2021 DTL 44.9 % 5:40 AM CHEMISTRY LECTURER Erythrocytes 3.26 (L) 3.92 - 10/23/2021 DTL 5.13 5:40 AM CHEMISTRY LECTURER x10(12)/L MCV 87.4 78.2 - 10/23/2021 DTL 97.9 fL 5:40 AM CHEMISTRY LECTURER RBC Distrib Width 15.0 12.2 - 10/23/2021 DTL 16.1 % 5:40 AM CHEMISTRY LECTURER Platelet Count 202 157 - 371 10/23/2021 DTL x10(9)/L 5:40 AM CHEMISTRY LECTURER Leukocytes 7.3 3.4 - 9.6 10/23/2021 DTL x10(9)/L 5:40 AM CHEMISTRY LECTURER Specimen Anatomical Collection Method Collection Time Receive d Time (Source) Location / / Volume Laterality Blood (Blood, 10/23/2021 4:53 AM 10/24/19 22 5:33 Venous) CHEMISTRY LECTURER AM CHEMISTRY LECTURER Tai Chiu LAB BLOOD ADD-ON Performing Organization Address City/State/ZIP Code Phon e Number [facility] - [address] [place], [place] [address] [facility] [place] [address] Laboratories-[facility] [address] Troponin T, 2H/6H, 5th Gen (10/22/2021 10:58 PM CHEMISTRY LECTURER) [facility] Method Time Signature Troponin T, 2 7 <=10 ng/L 10/22/2021 STMA hr, 5th gen 11:42 PM CHEMISTRY LECTURER 2H Delta 0 ng/L 10/22/2021 STMA 11:42 PM CHEMISTRY LECTURER 2H Delta Not Changing 10/22/2021 STMA Interp 11:42 PM CHEMISTRY LECTURER Troponin T, 6 CANCELED ng/L 10/22/2021 STMA hr, 5th gen 11:42 PM CHEMISTRY LECTURER Comment: Result canceled by the ancnatalia y. Specimen Anatomical Collection Method Collection Time Receive d Time (Source) Location / / Volume Laterality Blood (Blood, 10/22/2021 10:58 10/22/2021 Venous) PM CHEMISTRY LECTURER 11:12 PM CHEMISTRY LECTURER Narrative [facility] - [facility] - 10/22/2021 11:42 PM CHEMISTRY LECTURER Specimen Information: Specimen ID: [id number] Specimen Type: Blood Specimen Collection Start Date: 10/23/19 10:58 PM Specimen Received Date: 10/22/2021 11:12 PM Specimen ID: [id number] Specimen Type: Blood Specimen Collection Start Date: 10/23/19 11:42 PM Specimen Received Date: 10/22/2021 11:42 PM Tai CummingsB.S. LAB BLOOD TROPONIN Performing Organization Address City/[facility]/ZIP [facility] Ph[place] e Number [facility] - [address] [place] [address] Troponin T, Baseline, 5th gen (10/22/2021 8:51 PM CHEMISTRY LECTURER) athologist Signature Troponin T, 7 <=10 ng/L 10/22/2021 [facility], 5th 9:26 PM CHEMISTRY LECTURER gen Specimen Anatomical Collection Method Collection Time Receive d Time (Source) Location / / Volume Laterality Blood (Blood, 10/22/2021 8:51 PM 10/23/19 9:05 Venous) CHEMISTRY LECTURER PM CHEMISTRY LECTURER Tai CummingsB.S. LAB BLOOD TROPONIN Performing Organization Address City/[facility] Phon e Number [facility] - [address] ECG 12 Lead (10/22/2021 8:43 PM CHEMISTRY LECTURER) athologist Signature Ventricular Rate 66 BPM MUSE ECG/Min [place] Interval 186 ms MUSE QRSD Interval 82 ms MUSE QT Interval 452 ms MUSE QTC Interval 473 ms MUSE P [place] 41 degrees MUSE R [place] 8 degrees MUSE T Wave [place] 45 degrees MUSE Specimen Anatomical Collection Method Collection Time Receive d Time (Source) Location / / Volume Laterality 10/22/2021 8:43 PM 8:51 CHEMISTRY LECTURER PM CHEMISTRY LECTURER Impressions MUSE - 10/22/2021 8:51 PM CHEMISTRY LECTURER Normal sinus rhythm Normal ECG When compared [...] NA (ABNORMAL) Glucose, POCT (10/22/2021 6:16 PM CHEMISTRY LECTURER) [facility] Time Signature Glucose, POCT, 197 (H) 70 - 140 10/22/2021 PCLX B mg/dL 6:23 PM CHEMISTRY LECTURER Site Capillary 10/22/2021 PCLX 6:23 PM CHEMISTRY LECTURER Specimen Anatomical Collection Method Collection Time Receive d Time (Source) Location / / Volume Laterality Blood 10/22/2021 6:16 PM 6:23 CHEMISTRY LECTURER PM CHEMISTRY LECTURER Unknown Provider LAB POCT ORDERABLES-MANUAL Performing Organization Address City/State/ZIP Code Phon e Number POC [facility] [address] [place] [address] [place] [address] Leon POC [address] [facility] IR FEMORAL ARTERY ENDARTERECTOMY (10/22/2021 5:49 PM CHEMISTRY LECTURER) Anatomical Region Laterality Modality Lower Extremity, Vascular Interventional RST LOS N/A Other Specimen (Source) Anatomical Location Collection Method / Collectio n Time Received Time / Laterality Volume Narrative 10/26/2021 11:34 AM CDT Performed by surgeon - see Op Note for r esult. Mark Mcneil M.D., M.S. IMG IR PROCEDURES IR IMAGING (10/22/2021 5:49 PM CHEMISTRY LECTURER) Anatomical Region Laterality Modality N/A Other Specimen (Source) Anatomical Location Collection Method / Collectio n Time Received Time / Laterality Volume Narrative 10/26/2021 11:34 AM CDT Performed by surgeon - see Op Note for r esult. Mark Mcneil M.D., M.S. IMG IR PROCEDURES IR ABDOMEN AORTA STENT GRAFT (10/22/2021 5:49 PM CHEMISTRY LECTURER) Anatomical Region Laterality Modality Abdomen, Vascular Interventional RST LOS N/A Other Specimen (Source) Anatomical Location Collection Method / Collectio n Time Received Time / Laterality Volume Narrative 10/26/2021 11:34 AM CDT Performed by surgeon - see Op Note for r esult. Mark Mcneil M.D., M.S. IMG IR PROCEDURES (ABNORMAL) ACT (Activated Clotting Time), POCT (10/22/2021 3:40 PM CHEMISTRY LECTURER) athologist Signature Activated 227 (H) 84 - 139 10/22/2021 PCSM Clotting Time, sec 3:45 PM CHEMISTRY LECTURER POCT Specimen Anatomical Collection Method Collection Time Receive d Time (Source) Location / / Volume Laterality Blood 10/22/2021 3:40 PM 2 3:45 CHEMISTRY LECTURER PM CHEMISTRY LECTURER Unknown Provider LAB POCT ORDERABLES - DEVICE Performing Organization Address City/State/ZIP [facility] [place] Number POC RST [facility] INPATIENT [address] [place], [place] [address] LABS [place], [place] [id number] [place] [address] [address] (ABNORMAL) Glucose, POCT (10/22/2021 3:39 PM CHEMISTRY LECTURER) athologist Signature Glucose, POCT, 153 (H) 70 - 140 10/22/2021 PCSM B mg/dL 3:41 PM CHEMISTRY LECTURER Site ARTLINE 10/22/2021 PCSM 3:41 PM CHEMISTRY LECTURER Specimen Anatomical Collection Method Collection Time Receive d Time (Source) Location / / Volume Laterality Blood 10/22/2021 3:39 PM 2 3:41 CHEMISTRY LECTURER PM CHEMISTRY LECTURER Unknown Provider LAB POCT ORDERABLES-MANUAL Performing Organization Address City/State/ZIP [facility] [place] Number POC RST [facility] INPATIENT [address] [place], [place] [address] [place] [address] [place] POC [address] (ABNORMAL) ACT (Activated Clotting Time), POCT (10/22/2021 3:13 PM CHEMISTRY LECTURER) athologist Signature Activated 211 (H) 84 - 139 10/22/2021 PCSM Clotting Time, sec 3:17 PM CHEMISTRY LECTURER POCT Specimen Anatomical Collection Method Collection Time Receive d Time (Source) Location / / Volume Laterality Blood 10/22/2021 3:13 PM 2 3:17 CHEMISTRY LECTURER PM CHEMISTRY LECTURER Unknown Provider LAB POCT ORDERABLES - DEVICE Performing Organization Address City/[facility]/ZIP [facility] [place] Number POC RST [facility] INPATIENT [address] [place], [place] [address] [place] [address] [place] POC [address] (ABNORMAL) ACT (Activated Clotting Time), POCT (10/22/2021 2:47 PM CHEMISTRY LECTURER) athologist Signature Activated 239 (H) 84 - 139 10/22/2021 PCSM Clotting Time, sec 2:54 PM CHEMISTRY LECTURER POCT Specimen Anatomical Collection Method Collection Time Receive d Time (Source) Location / / Volume Laterality Blood 10/22/2021 2:47 PM 2 2:54 CHEMISTRY LECTURER PM CHEMISTRY LECTURER Unknown Provider LAB POCT ORDERABLES - DEVICE Performing Organization Address [facility] Phon e Number POC RST [facility] INPATIENT [address] [place], [place] [address] [place] [address] [place] POC [address] Glucose, Whole Blood (10/22/2021 1:43 PM CHEMISTRY LECTURER) athologist Signature Glucose 125 70 - 140 10/22/2021 1:45 STMA mg/dL PM CHEMISTRY LECTURER Specimen Anatomical Collection Method Collection Time Receive d Time (Source) Location / / Volume Laterality Blood (Blood, 10/22/2021 1:43 PM 10/23/19 22 1:43 Arterial Line) CHEMISTRY LECTURER PM CHEMISTRY LECTURER Asaf Juarez M.D. LAB BLOOD TROPONIN Performing Organization Address City/[facility] Phon e Number [facility] - [address] [place], [place] [address] [facility] [place] [address] [facility] [place] [address] (ABNORMAL) Potassium, Blood (10/22/2021 1:43 PM CHEMISTRY LECTURER) athologist Signature Potassium, B 3.5 (L) 3.6 - 5.2 10/22/2021 STMA mmol/L 1:45 PM CHEMISTRY LECTURER Specimen Anatomical Collection Method Collection Time Receive d Time (Source) Location / / Volume Laterality Blood (Blood, 10/22/2021 1:43 PM 10/23/19 1:43 Arterial Line) CHEMISTRY LECTURER PM CHEMISTRY LECTURER Asaf Juarez M.D. LAB BLOOD NON ADD-ON Performing Organization Address City/State/ZIP Code Phon e Number [facility] - [address] [place], [place] [address] [place] [address] [facility] [address] [facility] Sodium, B (10/22/2021 1:43 PM CHEMISTRY LECTURER) P athologist Signature Sodium, B 139 135 - 145 10/22/2021 1:45 STMA mmol/L PM CHEMISTRY LECTURER Specimen Anatomical Collection Method Collection Time Receive d Time (Source) Location / / Volume Laterality Blood (Blood, 10/22/2021 1:43 PM 10/23/19 1:43 Arterial Line) CHEMISTRY LECTURER PM CHEMISTRY LECTURER Asaf Juarez M.D. LAB BLOOD NON ADD-ON Performing Organization Address City/State/ZIP Code Phon e Number [facility] - [address] [place], [place] [address] [place] [address] [facility] [address] (ABNORMAL) Calcium, Ionized (10/22/2021 1:43 PM CHEMISTRY LECTURER) P athologist Signature Calcium, 4.52 (L) 4.65 - 10/22/2021 [facility] Ionized, B 5.30 mg/dL 1:45 PM CHEMISTRY LECTURER Specimen Anatomical Collection Method Collection Time Receive d Time (Source) Location / / Volume Laterality Blood (Blood, 10/22/2021 1:43 PM 10/23/19 1:43 Arterial Line) CHEMISTRY LECTURER PM CHEMISTRY LECTURER Asaf Juarez M.D. LAB BLOOD NON ADD-ON Performing Organization Address City/State/ZIP Code Phon e Number [facility] - [address] [place], [place] [address] [place] [address] [facility] [address] (ABNORMAL) Blood Gas with Coox, Arterial (10/22/2021 1:43 PM CHEMISTRY LECTURER) athologist Signature pO2 227 (H) 83 - 108 10/22/2021 [facility] mm Hg 1:45 PM CHEMISTRY LECTURER pCO2 43 32 - 45 mm 10/22/2021 [facility] Hg 1:45 PM CHEMISTRY LECTURER pH 7.38 7.35 - 10/22/2021 [facility] 7.45 pH 1:45 PM CHEMISTRY LECTURER Base Excess 0 -2 - 3 10/22/2021 [facility] mmol/L 1:45 PM CHEMISTRY LECTURER HCO3 25 22 - 26 10/22/2021 [facility] mmol/L 1:45 PM CHEMISTRY LECTURER Hemoglobin, B 10.0 (L) 11.6 - 10/22/2021 [facility] 15.0 g/dL 1:45 PM CHEMISTRY LECTURER O2Hb 98.4 (H) 94.0 - 10/22/2021 [facility] 98.0 % 1:45 PM CHEMISTRY LECTURER COHb 1.1 <3.0 % 10/22/2021 [facility] 1:45 PM CHEMISTRY LECTURER MetHb <1.0 <1.5 % 10/22/2021 [facility] 1:45 PM CHEMISTRY LECTURER CtO2 14.4 (L) 18.0 - 10/22/2021 [facility] 21.0 vol % 1:45 PM CHEMISTRY LECTURER Specimen Anatomical Collection Method Collection Time Receive d Time (Source) Location / / Volume Laterality Blood (Blood, 10/22/2021 1:43 PM 10/23/19 1:43 Arterial Line) CHEMISTRY LECTURER PM CHEMISTRY LECTURER Asaf Juarez M.D. LAB BLOOD NON ADD-ON Performing Organization Address City/State/ZIP Code Phon e Number [facility] - [address] [place], [place] [address] [facility] [place] [address] [facility] [address] ACT (Activated Clotting Time), POCT (10/22/2021 1:41 PM CHEMISTRY LECTURER) athologist Signature Activated 131 84 - 139 10/22/2021 [facility] Clotting Time, sec 1:45 PM CHEMISTRY LECTURER POCT Specimen Anatomical Collection Method Collection Time Receive d Time (Source) Location / / Volume Laterality Blood 10/22/2021 1:41 PM 1:45 CHEMISTRY LECTURER PM CHEMISTRY LECTURER Unknown Provider LAB POCT ORDERABLES - DEVICE Performing Organization Address City/State/ZIP Code Phon e Number POC [facility] [address] [place], [place] [address] [place] [address] [facility] [address] [place] [address] Glucose, POCT (10/22/2021 11:10 AM CHEMISTRY LECTURER) Analysis Performed At Patho logist Time Signature Glucose, POCT, 131 70 - 140 10/22/2021 PCLX B mg/dL 11:21 AM CHEMISTRY LECTURER Site Capillary 10/22/2021 PCLX 11:21 AM CHEMISTRY LECTURER Specimen Anatomical Collection Method Collection Time Receive d Time (Source) Location / / Volume Laterality Blood 10/22/2021 11:10 10/22/2021 AM CHEMISTRY LECTURER 11:21 AM CHEMISTRY LECTURER Unknown Provider LAB POCT ORDERABLES-MANUAL Performing Organization Address [facility] Phon e Number POC [facility] [address] [place] [address] [place] [address] [facility] 200 [facility] documented in this encounter Visit [...] tablet 1,000 mg Given 10/24/2021 9:03 AM CHEMISTRY LECTURER 1,000 mg (TYLENOL) 1,000 mg, oral, 4 times daily, First dose on Meredith 10/22/21 at 2145 Given 10/23/2021 8:50 PM CHEMISTRY LECTURER 1,000 mg Given 10/23/2021 5:27 PM CHEMISTRY LECTURER 1,000 mg albuterol nebulizer solution 2.5 mg 2.5 mg, nebulization, Every 6 hours PRN, wheezing, shortness of breath, Starting on Meredith 10/22/21 at 2138 albuterol nebulizer solution 2.5 mg Given 10/24/2021 9:05 AM CHEMISTRY LECTURER 2.5 mg 2.5 mg, nebulization, 2 times daily, First dose on Tue10/23/21 at 0900 Given 10/23/2021 9:06 PM CHEMISTRY LECTURER 2.5 mg Given 10/23/2021 9:34 AM CHEMISTRY LECTURER 2.5 mg aspirin chewable tablet 81 mg Given 10/23/2021 5:28 PM CHEMISTRY LECTURER 81 mg 81 mg, oral, Every evening, First dose on Tue10/22/21 at 2130 Given 10/22/2021 10:06 PM CHEMISTRY LECTURER 81 mg atorvastatin tablet 20 mg (LIPITOR) Given 10/23/2021 8:51 PM CHEMISTRY LECTURER 20 mg 20 mg, oral, Daily at bedtime, First dose on Tue10/22/21 at 2145 Given 10/22/2021 10:06 PM CHEMISTRY LECTURER 20 mg bisacodyL suppository 10 mg (DULCOLAX) 10 mg, rectal, Daily PRN, constipation, Starting on Tue10/22/21 at 2024, Ordered sequence of administration: polyethylene glycol, then bisacodyl until BM achieved. cellulose, oxidized 1 X 2 pad (SURGICE L) Given 10/22/2021 4:54 PM CHEMISTRY LECTURER 1 each As needed, Starting on Tue10/22/21 at 1654, Intra-Op famotidine tablet 20 mg (PEPCID) Given 10/23/2021 8:50 PM CHEMISTRY LECTURER 20 mg 20 mg, oral, Daily at bedtime, First dose on Tue10/22/21 at 2145, Drug Monitoring Program: Pharmacist to adjust medication dosing based on indication and drug clearance factors. Given 10/22/2021 10:06 PM CHEMISTRY LECTURER 20 mg fentaNYL injection 25 mcg (SUBLIMAZE) Given 10/22/2021 9:01 PM CHEMISTRY LECTURER 25 mcg 25 mcg, intravenous, Every 1 [...] interchanged for Budesonide/Formoterol Given 10/23/2021 9:48 AM CHEMISTRY LECTURER 1 puff haloperidol lactate injection 1 mg [...] promethazine) heparin (porcine) Given 10/24/2021 5:27 AM CHEMISTRY LECTURER 5,000 Units Left Lower Abdomen injection 5,000 Units 5,000 Units, subcutaneous, Every 8 hours scheduled, First dose on Tue10/23/21 at 0600 Given 10/23/2021 9:20 PM CHEMISTRY LECTURER 5,000 Units Left Lower Abdomen Given 10/23/2021 2:43 PM CHEMISTRY LECTURER 5,000 Units Left Upper Arm heparin 10 Units/mL in NaCl 0.9% 500 mL flush Given 5:00 PM CHEMISTRY LECTURER 400 mL solution miscellaneous, Once in surgery, OR use only, Starting on Tue10/22/21 at 1223, For 1 dose, Intra-Op, *Flush/Irrigation use only* hydroCHLOROthiazide tablet 25 mg (HYDROD IURIL) Given 10/23/2021 5:28 PM CHEMISTRY LECTURER 25 mg 25 mg, oral, Every evening, First dose on Tue10/22/21 at 2145 Given 10/22/2021 10:06 PM CHEMISTRY LECTURER 25 mg HYDROmorphone (PF) injection 0.4 mg [...] in NaCl 0.9% Given 05/2022 5:03 PM CHEMISTRY LECTURER 133 mL injection 300 mL, injection, Once in surgery, OR use only, Starting on Meredith 10/22/21 at 1223, For 1 dose, Intra-Op levothyroxine tablet 50 mcg (SYNTHROID, Given 10/23/2021 8:50 PM CHEMISTRY LECTURER 50 mcg LEVOTHROID) 50 mcg, oral, Daily at bedtime, First dose on Meredith 10/22/21 at 2145 Given 10/22/2021 10:06 PM CHEMISTRY LECTURER 50 mcg losartan tablet 100 mg (COZAAR) Given 10/23/2021 5:28 PM CHEMISTRY LECTURER 100 mg 100 mg, oral, Every evening, First dose on Meredith 10/22/21 at 2145 Given 10/22/2021 10:06 PM CHEMISTRY LECTURER 100 mg naloxone injection 0.2 mg (NARCAN) 0.2 mg, intravenous, As needed, respirat ory depression, Starting on Meredith 10/22/21 at 2024, For respiratory rate less than 8 b reaths per minute or RASS score of -3, -4, -5. Apply oxygen to keep oxygen saturati ons greater than 90% and notify service. ondansetron (PF) injection 4 mg (ZOFRAN) Given 10/23/2021 9:11 AM CHEMISTRY LECTURER 4 mg 4 mg, intravenous, Every 6 hours PRN, nausea, vomiting, Starting on Meredith 10/22/21 at 2024, For 48 hours, Reassess for nausea or vomiting after at least 10 minutes. If nausea or vomiting persists administer next ordered antiemetic medications (order for antiemetic medication administration ondansetron then droperidol then promethazine). Given 10/22/2021 10:27 PM CHEMISTRY LECTURER 4 mg oxyCODONE IR tablet 10 mg [...] 5 mg (ROXICODONE) Given 10/23/2021 10:40 PM CHEMISTRY LECTURER 5 mg 5 mg, oral, Every 4 hours PRN, moderate pain or score 4-6 of 10, Starting on Meredith 10/22/21 at 2024, Administer if pain is unrelieved by acetaminophen. May repeat dose once after 1 hour for persistent pain not to exceed 10 mg in 4 hours. Begin oral narcotics ONLY when tolerating oral diet. Given 10/23/2021 10:00 AM CHEMISTRY LECTURER 5 mg polyethylene glycol powder packet 1 pack et (MIRALAX) 1 packet, oral, Daily PRN, constipation, Starting on Meredith 10/22/21 at 2024, Ordered sequence of administration: polyethylene glycol, then bisacodyl until BM achieved. Avoid mixing with starch-based thickened liquids. promethazine injection 6.25 mg (PHENERGA N) Given 10/23/2021 9:44 PM CHEMISTRY LECTURER 6.25 mg 6.25 mg, intravenous, Every 6 [...] mg per Given 10/24/2021 9:03 A M CHEMISTRY LECTURER 1 tablet tablet 1 tablet (SENOKOT-S) 1 tablet, oral, 2 times daily, First dose on Tue10/23/21 at 0900, Initiate ONLY when taking oral food and fluids. Do not give if patient has diarrhea or ostomy. Given 10/23/2021 8:50 PM CHEMISTRY LECTURER 1 tablet thrombin (recombinant) topical solution Given 10/23/19 4:54 PM CHEMISTRY LECTURER 5,000 Units (RECOTHROM) As needed, Starting on Tue10/22/21 at 1654, Intra-Op documented in this encounter Active and Recently Administered Medications Times are shown in CHEMISTRY LECTURER. Scheduled Medication Order 10/22/2021 10/23/2021 10/24/2021 acetaminophen [...] mL (DUONEB) (CANCELED) 1104 (Given - Provider: Martha StoneNShital) 3 mL, nebulization, 4 times daily (RT), [...] (CANCELED) 1755 (Continued from OR - Provider: Martha StarkeyNShital)2024 (Stopped - Provider: Angie Finley R.N.) 20 [...] Randhawa R.NShital)1917 (Given - Provider: Alicia Bland R.NShital) 25 mcg, intravenous, Every 2 min PRN, [...] injection (COMPLETED) 1703 (Given - Provider: Zoila BlairBShitalSShital) 300 mL, injection, Once in surgery, OR [...] score 4-6 of 10, Starting on Meredith 3/10/22 at 2024, Administer if pain is unrelieved [...] Starting on Meredith 10/22/21 at 1653, Intra-Op Linked Groups Order Group 1: albuterol nebulizer solution 2.5 mgJump to med 2.5 mg, nebulization, Every 6 hours PRN, wheezing, shortness of breath, Starting on Meredith 10/22/21 at 2138 And albuterol nebulizer solution 2.5 [...]
--- OUTSIDE RECORDS SUMMARY | 2022-04-07 09:35 | XMS_ITS | Encounter Summary ---
:1955 Author Organization [facility] Address [address] [place] [address] Care Team Providers Name Role Phone Unavailable [...] do you attend religion or Never 2018 christianity services? Do you [...] Appointment Radiology Mark Eastman M.D., M.S. 200 [place] [phone] 04/26/2022 Office Visit Otorhinolaryngology Roxanne Lanza APRN, C.N.P. [address] [place] [phone] 04/28/2022 Appointment Radiation Oncology Ursula Aguirre M.D. 200 [place] [phone] documented as of this encounter Procedures Procedure Name Priority Date/Time Associated Diagnosis Comme nts VASCULAR SURGERY Routine 10/22/2021 1:40 PM Resul ts for this IMAGE EXAM CHEESE SPECIALIST procedure are i n the results section. documented in this encounter Results VascUltrasound-Vascular Surgery Image Exam (10/22/2021 1:40 PM CHEESE SPECIALIST) Specimen (Source) Anatomical Location Collection Method / Collectio n Time Received Time / Laterality Volume Narrative IIMS - 10/23/2021 7:21 AM CHEESE SPECIALIST This order has been created and auto-finalized [...]
--- OUTSIDE RECORDS SUMMARY | 2022-04-07 09:35 | XMS_ITS | Encounter Summary ---
:1955 Author Organization [facility] Address [address] [place] [address] Care Team Providers Name Role Phone Unavailable Primary Care Provider Unavailable Encounter Details Date Type Department Care Team Description 11/05/2021 Orders Only Division of Vascular and Carlotta Beth APRN, Endovascular Surgery in C.N.P., M.S.N. [place], [place] [address] [facility] [address] [place] [phone] (Wo rk) Social History Tobacco Use Types [...] do you attend episcopalian or Never 2018 sabianist services? Do you [...] Radiology Mark Eastman M.D., M.S. [address] [place] [phone] 04/26/2022 Office Visit Otorhinolaryngology Roxanne Lanza, COMMERCIAL LOAN COLLECTION OFFICER, C.N.P. [address] [place] [phone] 04/28/2022 Appointment Radiation Oncology Ursula Aguirre M.D. [address] [place] [phone] documented as of this encounter Visit Diagnoses Not on filedocumented in this encounter
--- OUTSIDE RECORDS SUMMARY | 2022-04-07 09:35 | XMS_ITS | Encounter Summary ---
:1955 Author Organization [facility] Address [address] [place] [address] Care Team Providers Name Role Phone Unavailable [...] Appointment Radiology Mark Eastman M.D., M.S. 200 [place] [phone] 04/26/2022 Office Visit Otorhinolaryngology Roxanne Lanza APRN, C.N.P. [address] [place] [phone] 04/28/2022 Appointment Radiation Oncology Ursula Aguirre M.D. 200 [place] [phone] documented as of this encounter Procedures Procedure [...]
--- OUTSIDE RECORDS SUMMARY | 2022-04-07 09:35 | XMS_ITS | Encounter Summary ---
:1955 Author Organization [facility] Address [address] [place] [address] Care Team Providers Name Role Phone Unavailable Primary Care Provider Unavailable Reason for Visit Reason Comments Post-op Outpatient (Routine) - Closed Specialty Diagnoses / Procedures Referred By Contact Refer red To Contact Vascular Surgery Carlotta Beth APRN, [facility] C.N.P., M.S.N. [address] [place] [phone] Referral ID Status Reason Start Date Expiration Date Visits Requ ested Visits Authorized [id number] Closed 11/05/2021 11/05/2022 1 1 Encounter Details Date Type Department Care Team Description 11/13/2021 Office Visit Division of Vascular Remington Beht i, APRN, C.N.P., M.S.N. [address] [place] [phone] Wound Postoperative and Endovascular Ema Lobato APRN, C.N.P., M.S.N. [address] [place] [phone] Exam (Primary Dx) Surgery in [place], [place] [address] [place] [phone] Social History Tobacco Use Types Packs/Day Years [...] do you attend pentecostalism or Never 2018 taoist services? Do you [...] dismissal, pain medication (examples: oxycodone, Dilaudid, Tramadol, Gerald, etc.) will be prescribed to you if needed. Duration will be determined on a [id number] basis and will notexceed 2 weeks. Thereafter, you will need to be evaluated by your primary care provider or your surgical team if operative pain persists. Should you need to contact Dr. Eastman or his service in the interim, you may do so through his biomedical engineering internship at during normal business hours of 8 to 5 Tuesday through Tuesday (excluding holidays) or, in an emergency situation, through the [facility] milk bottling machine operator at (Service pager: [phone]). documented in this encounter Progress Notes Ema [...] home postoperatively. Ms. Narayan returns to the [facility] today for wound assessment. Ms. [...] Radiology Mark Eastman M.D., M.S. [address] [place] [phone] 04/26/2022 Office Visit Otorhinolaryngology Roxanne Lanza APRN, C.N.P. [address] [place] [phone] 04/28/2022 Appointment Radiation Oncology Ursula Aguirre M.D. [address] [place] [phone] documented as of this encounter Visit Diagnoses Diagnosis Wound Postoperative Exam - Primary documented in this encounter
--- OUTSIDE RECORDS SUMMARY | 2022-04-07 09:35 | XMS_ITS | Encounter Summary ---
:1955 Author Organization [facility] Address [address] [place] [address] Care Team Providers Name Role Phone Unavailable Primary Care Provider Unavailable Reason for Referral Outpatient (Routine) - Closed Specialty Diagnoses / Procedures Referred By Contact Refer red To Contact Vascular Surgery Sanna Newman P.A. [facility] [address] [place] [phone] Referral ID Status Reason Start Date Expiration Date Visits Requ ested Visits Authorized [id number] Closed 11/03/2021 11/03/2022 1 1 Scheduling Instructions 2pm ideally Encounter Details Date Type Department Care Team Description 11/03/2021 Orders Only Division of Vascular and Sanna Newman, Endovascular Surgery in P.Libby-Teresa [place], [place] [address] [place] [address] [address] [place] [phone] (Wo rk) Social History Tobacco Use Types [...] do you attend adventist or Never 2018 religion services? Do you belong to any clubs or No 02/21/2019 organizations such as adventist groups, unions, fraWinning Pitch or athletic groups, or school groups? How [...] Radiology Mark Eastman M.D., M.S. [address] [place] [phone] 04/26/2022 Office Visit Otorhinolaryngology Roxanne Lanza APRN, C.N.P. [address] [place] [phone] 04/28/2022 Appointment Radiation Oncology Ursula Aguirre M.D. [address] [place] [phone] Scheduled Referrals Name Type Priority Associated Diagnoses Order S chedule Vascular Surgery Outpatient Referral Routine Expe cted: Post Op (clinic) 11/04/2021 (Approximate), Expires: 02/03/2023 documented as of this encounter Visit Diagnoses Not on filedocumented in this encounter
--- OUTSIDE RECORDS SUMMARY | 2022-04-07 09:35 | XMS_ITS | Encounter Summary ---
:1955 Author Organization [facility] Address [address] [place] [address] Care Team Providers Name Role Phone Unavailable [...] do you attend advent or Never 2018 buddhism services? Do you [...] Appointment Radiology Mark Eastman M.D., M.S. 200 [place] [phone] 04/26/2022 Office Visit Otorhinolaryngology Roxanne Lanza APRN, C.N.P. [address] [place] [phone] 04/28/2022 Appointment Radiation Oncology Ursula Aguirre M.D. 200 [place] [phone] documented as of this encounter Procedures Procedure [...]
--- OUTSIDE RECORDS SUMMARY | 2022-04-07 09:35 | XMS_ITS | Encounter Summary ---
:1955 Author Organization [facility] Address [address] [place] [address] Care Team Providers Name Role Phone Unavailable Primary Care Provider Unavailable Reason for Visit Reason Comments Med Refill Encounter Details Date Type Department Care Team Description 01/14/2022 Refill Department of Radiation Summer Pérez P.A .-C., Med Refill Oncology in [facility] [address] [facility] [address] [place] [address] [place] [address] [phone] Social History Tobacco Use Types Packs/Day Years [...] do you attend protestant or Never 2018 moravian services? Do you [...] Radiology Mark Eastman M.D., M.S. [address] [place] [phone] 04/26/2022 Office Visit Otorhinolaryngology Roxanne Lanza APRN, C.N.P. [address] [place] [phone] 04/28/2022 Appointment Radiation Oncology Ursula Aguirre M.D. [address] [place] [phone] documented as of this encounter Results (ABNORMAL) Thyroid Function [place] (01/19/2022 9:42 AM CDT) athologist Signature TSH, [...] [facility]- [address] [place] [address] [facility] [place] [address] System in [place] [address] [facility] documented in this encounter Visit Diagnoses Diagnosis Hypothyroidism Secondary - Primary documented in this encounter
--- OUTSIDE RECORDS SUMMARY | 2022-04-07 09:35 | XMS_ITS | Encounter Summary ---
:1955 Author Organization [facility] Address [address] [place] [address] Care Team Providers Name Role Phone Unavailable Primary Care Provider Unavailable Encounter Details Date Type Department Care Team Description 01/19/2022 Hospital Encounter Department of Summer Pérez Hypothy roidism Laboratory Medicine P.Marilou., M.S . Secondary in [place], [address] [place] [address] 300 [facility] [address] [place], [place] [phone] (Work) [phone] Social History Tobacco Use Types Packs/Day Years [...] do you attend jain or Never 2018 jain services? Do you [...] Radiology Mark Eastman M.D., M.S. [address] [place] [phone] 04/26/2022 Office Visit Otorhinolaryngology Roxanne Lanza APRN, C.N.P. [address] [place] [phone] 04/28/2022 Appointment Radiation Oncology Ursula Aguirre M.D. [address] [place] [phone] documented as of this encounter Procedures Procedure Name Priority Date/Time Associated Diagnosis Comme nts WI MICROSOMAL AB Routine 01/19/2022 9:42 AM Resul ts for this EA/TPO CDT procedure are i n the results section. WI T4 FREE Routine 01/19/2022 9:42 [...] Comment: Biotin [facility] as a potential interfering substance. [...] [facility]- [address] [place] [address] [place] [address] System in [place] [address] Thyroperoxidase (TPO) Antibodies, Serum (01/19/2022 9:42 AM CDT) Patholo gist Method Time Signature Thyroperoxidase Ab, 1.3 <9.0 01/20/2022 DTL S IU/mL 9:05 AM CDT Specimen Anatomical Collection Method Collection Time Receive d Time (Source) Location / / Volume Laterality Blood 01/19/2022 9:42 AM 6:49 CDT AM CDT Summer Pérez P.A.-C., M.S. LAB BLOOD NON ADD-ON Performing Organization Address City/[facility]/ZIP Code Phon e Number [facility] - 200 [place], [place] [address] [facility] [place] [address] Laboratories-[facility] 200 [facility] (ABNORMAL) Thyroid Function [place] (01/19/2022 9:42 AM CDT) P athologist Signature [...] [facility]- [address] [place] [address] [place] [address] System in [place] [address] documented in this encounter Visit Diagnoses Diagnosis Hypothyroidism Secondary documented in this encounter
--- OUTSIDE RECORDS SUMMARY | 2022-04-07 09:36 | XMS_ITS | Encounter Summary ---
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 [address] [place] [address] [phone] Referral ID Status Reason Start Date Expiration Date Visits Requ ested Visits Authorized [id number] Closed 09/15/2021 09/15/2022 1 1 Encounter Details Date Type Department Care Team Description 09/22/2021 Hospital Encounter Department of Ronit Eastman Abdominal Cardiovascular Rahul Ge Withou t Diseases in [place], Kimberley, M.S . Rupture (HCC) [address] [place] [phone] Social History Tobacco Use Types Packs/Day Years [...] do you attend mosque or Never 2018 scientologist services? Do you [...] Radiology Mark Eastman M.D., M.S. [address] [place] [phone] 04/26/2022 Office Visit Otorhinolaryngology Roxanne Lanza, AMAYA, C.N.P. [address] [place] [phone] 04/28/2022 Appointment Radiation Oncology Ursula Aguirre M.D. [address] [place] [phone] documented as of this encounter Procedures Procedure Name Priority Date/Time Associated Diagnosis Comme nts ECHO STRESS 2D WITH Routine 09/22/2021 1:40 PM Aneurysm Abdomi nal Results for this COLOR, LIMITED ENT PHYSICIAN Aortic Without procedure a re in DOPPLER AND Rupture (HCC) the results CONTRAST section. documented in this encounter Results ECHO STRESS 2D WITH COLOR, LIMITED DOPPLER AND CONTRAST (09/22/2021 1:40 PM ENT PHYSICIAN) [facility] Method Time Signature Ejection Fraction [...] / / Volume Laterality 09/22/2021 12:25 PM ENT PHYSICIAN Impressions 09/22/2021 8:44 PM ENT PHYSICIAN STRESS TEST:Dobutamine was infused from 5 mcg/kg/min [...] For the complete report, see the Order-L tenfarms Documents. Narrative 09/22/2021 8:44 PM ENT PHYSICIAN For the complete report, see the Order-Level [...] injection 0.25 mg Given 09/22/2021 1:10 PM ENT PHYSICIAN 0.25 mg 0.25 mg, intravenous, Once, On [...] lipid microspheres injection Given 09/22/2021 1:10 PM ENT PHYSICIAN 5 mL (DEFINITY) intravenous, Once in imaging, [...] injection 10 mL Given 09/22/2021 12:40 PM ENT PHYSICIAN 10 mL 10 mL, intravenous, Once, On 09/22/21 at 1345, For 1 dose, Prior to and following infusion and between multiple consecutive infusions: sodium chloride 0.9 % injection documented in this encounter
--- OUTSIDE RECORDS SUMMARY | 2022-04-07 09:36 | XMS_ITS | Encounter Summary ---
:1955 Author Organization [facility] Address [address] [place] [address] Care Team Providers Name Role Phone Unavailable Primary Care Provider Unavailable Reason for Referral Outpatient (Routine) - Closed Specialty Diagnoses / Procedures Referred By Contact Refer red To Contact Radiation Oncology Ursula Aguirre [facility] M.D. [address] [place] [address] Referral ID Status Reason Start Date Expiration Date Visits Requ ested Visits Authorized [id number] Closed 09/10/2021 09/10/2022 1 1 NSIVE DRIVING INSTRUCTOR Encounter Details Date Type Department Care Team Description 09/10/2021 Orders Only Department of Radiation Viry Carter RLanny Oncology in [place], [address] [place] [address]21 [facility] [address] [place] [address] [phone] Social History Tobacco Use Types Packs/Day Years [...] do you attend bahai or Never 2018 baptism services? Do you belong to any clubs or No 02/21/2019 organizations such as bahai groups, unions, [employer] or athletic groups, or school groups? How [...] Radiology Mark Eastman M.D., M.S. [address] [place] [phone] 04/26/2022 Office Visit Otorhinolaryngology Roxanne Lanza APRN, C.N.P. [address] [place] [phone] 04/28/2022 Appointment Radiation Oncology Ursula Aguirre M.D. [address] [place] [phone] Scheduled Referrals Name Type Priority Associated Diagnoses Order S chedule Radiation Oncology Outpatient Referral Routine Ex pected: office visit 09/10/2021 (clinic) (Approximate), Expires: 12/09/2022 documented as of this encounter Visit Diagnoses Not on filedocumented in this encounter
--- OUTSIDE RECORDS SUMMARY | 2022-04-07 09:36 | XMS_ITS | Encounter Summary ---
:1955 Author Organization [facility] Address [address] [place] [address] Care Team Providers Name Role Phone Unavailable [...] do you attend catholic or Never 2018 alevism services? Do you [...] Appointment Radiology Mark Eastman M.D., M.S. 200 [place] [phone] 04/26/2022 Office Visit Otorhinolaryngology Roxanne Lanza APRN, C.N.P. 200 [place] [phone] 04/28/2022 Appointment Radiation Oncology Ursula Aguirre M.D. 200 [place] [phone] documented as of this encounter Procedures Procedure Name Priority Date/Time Associated Comments Diagnosis OTORHINOLARYNGOLOGY IMAGE Routine 10/16/2021 11:54 Results for this EXAM AM SOCIALLY RESPONSIBLE INVESTMENT ADVISER procedure are i n the results section. documented in this encounter Results Direct Laryngoscopy-Otorhinolaryngology Image Exam (10/16/2021 11:54 AM SOCIALLY RESPONSIBLE INVESTMENT ADVISER) Specimen (Source) Anatomical Collection Method Collection Time Re ceived Time Location / / Volume Laterality 10/16/2021 12:19 PM SOCIALLY RESPONSIBLE INVESTMENT ADVISER Narrative IIMS - 10/16/2021 11:54 AM SOCIALLY RESPONSIBLE INVESTMENT ADVISER This order has been created and auto-finalized [...]
--- OUTSIDE RECORDS SUMMARY | 2022-04-07 09:36 | XMS_ITS | Encounter Summary ---
:1955 Author Organization [facility] Address [address] [place] [address] Care Team Providers Name Role Phone Unavailable Primary Care Provider Unavailable Reason for Referral Outpatient (Routine) - Authorized Specialty Diagnoses / Procedures Referred By Contact Refer red To Contact Vascular Medicine aRdha Lizarraga [facility] C.N.PShital, M.S. [address] [place] [phone] Referral ID Status Reason Start Date Expiration Date Visits V isits Requested Authorized [id number] Authorized 10/16/2021 10/16/2022 1 1 utpatient (Routine) - Authorized Specialty Diagnoses / Procedures Referred By Contact Refer red To Contact Diagnoses Aneurysm Abdominal Aortic Without Rupture (HCC) Stenosis Carotid Artery Left [facility] Procedures US Carotid Bilateral C.N.P., M.S. 200 [place], [place] [phone] Referral ID Status Reason Start Date Expiration Date Visits V isits Requested Authorized [id number] Authorized 10/16/2021 10/16/2022 1 1 SITE MANAGER Reason for Visit Outpatient (Routine) - Closed Specialty Diagnoses / Procedures Referred By Contact Refer red To Contact Vascular Medicine Diagnoses Aneurysm Abdominal Aortic Without Rupture (HCC) Preoperative Examination Cardiovascular Reynaldo Alfaro, [place] Maude on M.D. 200 [place] [address] Referral ID Status Reason Start Date Expiration Date Visits Requ ested Visits Authorized [id number] Closed 09/22/2021 09/22/2022 1 1 Encounter Details Date Type Department Care Team Description 10/16/2021 Office Visit Department of Vascular Hirao-Try, Aneur ysm Abdominal Aortic Without Rupture (HCC) (Primary Dx); Medicine in [place], Radha, ROAD CUTTER, Preo perative Examination Cardiovascular; [place] C.N.P., M.S. Stenosis Carotid Artery Left; 200 [facility] 200 [facility] [place] [phone] Social History Tobacco Use Types Packs/Day Years [...] do you attend catholic or Never 2018 spiritism services? Do you [...] Comments Blood Pressure 147/77 10/16/2021 1:19 PM WEB SITE MANAGER Pulse - - Temperature - - Respiratory Rate - - Oxygen Saturation - - Inhaled Oxygen Concentration - - Weight 86.8 kg (191 lb 5.8 oz) 10/16/2021 1:19 PM WEB SITE MANAGER Height 166.3 cm (5' 5.47) 10/16/2021 1:19 PM WEB SITE MANAGER Body Mass Index 31.39 10/16/2021 1:19 PM WEB SITE MANAGER documented in this encounter Progress Notes Radha Lizarraga APRN, C.N.P., M.S. - 10/16/2021 2:00 PM CST REFERRAL SOURCE Reynaldo Alfaro M.D. 200 [place] [address] SUBJECTIVE CHIEF COMPLAINT / REASON FOR VISIT Review test results HISTORY OF PRESENT ILLNESS Ms. Steiner is a 66 y.o. female from [facility] that I am seeing today to review [...] normal distal ICA in accordance with [place] Symptomatic Carotid Endarterectomy Trial (NASCET). ?? IMPRESSION: [...] my knowledge. Radha Lizarraga APRN, C.N.P., M.S. SITE MANAGER documented in this encounter Plan of Treatment Upcoming Encounters Date Type Specialty Care Team Description 04/22/2022 Clinical Admitting/Central Communication Scheduling 04/26/2022 Appointment Radiology Mark Eastman M.D., M.S. [address] [place] [phone] 04/26/2022 Office Visit Otorhinolaryngology Roxanne Lanza APRN, C.N.P. [address] [place] [phone] 04/28/2022 Appointment Radiation Oncology Ursula Aguirre M.D. [address] [place] [address] Scheduled Orders Name Type Priority Associated Diagnoses Order S [facility] Lipid Panel Lab Routine Aneurysm Abdominal Expected: Aortic Without 10/16/2022 Rupture (HCC) (Approximate), Stenosis Carotid Expires: Artery Left 10/16/2022 US Carotid Imaging RAD - Routine (most Aneurysm Abdominal Ex pected: Bilateral inpatients and all Aortic Without 023 outpatients) Rupture (HCC) (Approximate), Stenosis Carotid Expires: Artery Left 01/16/2023 Scheduled Referrals Name Type Priority Associated Diagnoses Order S [facility] Vascular Medicine Outpatient Referral Routine Exp ected: office visit 10/16/2022 (clinic) Vascular (Approxima te), Surgery Referral Expires: 01/16/2023 documented as of this encounter Visit Diagnoses Diagnosis Aneurysm Abdominal Aortic Without Ruptur e (HCC) - Primary Preoperative Examination Cardiovascular Stenosis Carotid Artery Left Dyslipidemia documented in this encounter
--- OUTSIDE RECORDS SUMMARY | 2022-04-07 09:36 | XMS_ITS | Encounter Summary ---
:[address] [facility] Address [address] [place] [address] Care Team Providers Name Role Phone Unavailable Primary Care Provider Unavailable Reason for Referral Outpatient (Routine) - Closed Specialty Diagnoses / Procedures Referred By Contact Refer red To Contact Otorhinolaryngology Roxanne Lanza [facility] AMAYA, C.N.P. [address] [place] [phone] Referral ID Status Reason Start Date Expiration Date Visits Requ ested Visits Authorized [id number] Closed 09/16/2021 09/16/2022 1 1 Scheduling Instructions Laryngeal cancer follow up N SERVICE AGENT Encounter Details Date Type Department Care Team Description 09/16/2021 Orders Only Department of Roxanne Lanza Otorhinolaryngology in AMAYA Gillis, C.N.P. [place], [place] [address] [place] [address] 200 [place] [phone] (Wo rk) Social History Tobacco Use Types [...] do you attend synagogue or Never 2018 cheondoism services? Do you [...] Radiology Mark Eastman M.D., M.S. [address] [place] [phone] 04/26/2022 Office Visit Otorhinolaryngology Roxanne Lanza, PRODUCTION SERVICE MANAGER, C.N.P. [address] [place] [phone] 04/28/2022 Appointment Radiation Oncology Ursula Aguirre M.D. [address] [place] [phone] Scheduled Referrals Name Type Priority Associated Order Schedule Diagnoses Otorhinolaryngology office Outpatient Routine E xpected: visit (clinic) Referral 09/23/2021 (Approximate), Expires: 12/14/2022 documented as of this encounter Visit Diagnoses Not on filedocumented in this encounter
--- OUTSIDE RECORDS SUMMARY | 2022-04-07 09:36 | XMS_ITS | Encounter Summary ---
:1955 Author Organization [facility] Address [address] [place] [address] Care Team Providers Name Role Phone Unavailable Primary Care Provider Unavailable Reason for Referral Outpatient (Routine) - Closed Specialty Diagnoses / Procedures Referred By Contact Refer red To Contact Radiation Oncology Ursula Aguirre [facility] M.D. [address] [place] [phone] Referral ID Status Reason Start Date Expiration Date Visits Requ ested Visits Authorized [id number] Closed 09/10/2021 09/10/2022 1 1 TRIC CONTAINER TESTER Reason for Visit Outpatient (Routine) - Closed Specialty Diagnoses / Procedures Referred By Contact Refer red To Contact Radiation Oncology Ursula Aguirre [facility] M.D. [address] [place] [phone] Referral ID Status Reason Start Date Expiration Date Visits Requ ested Visits Authorized [id number] Closed 09/10/2021 09/10/2022 1 1 Encounter Details Date Type Department Care Team Description 09/17/2021 Hospital Encounter Department of Ursula Aguirre Neoplasm Of Radiation Oncology Kimberley Bacon Supraglottic (HCC) in [place], [address] [place] [address] (Primary Dx) [place], [place] 1821 [facility] [address] [place], [place] [phone] (Work) [phone] Social History Tobacco Use Types Packs/Day Years [...] do you attend restorationism or Never 2018 advent services? Do you [...] Comments Blood Pressure 142/74 09/17/2021 8:57 AM ELECTRIC CONTAINER TESTER Pulse 92 09/17/2021 8:57 AM ELECTRIC CONTAINER TESTER Temperature 36.4 ??C (97.6 ??F) 09/17/2021 8:57 AM ELECTRIC CONTAINER TESTER Respiratory Rate - - Oxygen Saturation - - Inhaled Oxygen Concentration - - Weight 88.3 kg (194 lb 10.7 oz) 09/17/2021 8:57 AM ELECTRIC CONTAINER TESTER Height - - Body Mass Index 32.24 [...] February 08, 2019: ??Appointment with Dr. Darryl Grayson???[facility] at [facility]. ??Physical examination with flexible laryngoscopy revealed a large fungating mass overlying the posterior left arytenoid that appeared fairly extensive, extending over to the right arytenoid into the piriform sinus. ?? Vocal cords move normally. ??Patient did have some shotty adenopathy on the left side. ??Ordered CT scan and then arrange referral to [facility]. 4. February 12, 2019: ??CT scan [...] Hung Mabry and Dr. Frank Arrieta??at [facility]. ??Physical examination revealed an exophytic mass [...] will be referred to Radiation Oncology in [place]. 8. March 13, 2019: ??Follow-up appointment with Dr. Arrieta and Dr. Mabry who discussed treatment options including total laryngectomy versus radiation therapy. ??They were not able to offer partial laryngectomy given her lung disease and possible aspiration. ?? 9. March 15, 2019: ??Phone call with Dr. Tapia with the patient's nakvepdi-[id number]-bta reported that the patient had decided to undergo radiation treatment in [place]. ??She will have a follow-up abdominal MRI at [place]. ??The patient will follow-up with her primary [...] has been ordered to be completed at [facility]. We will contact her with the result. She is planning to proceed with abdominal aortic aneurysm repair in the near future and has pre-op appointments in [place] on September 22, 2021. She is also scheduled for an ENT appointment in [place] on October 02, 2021 for evaluation prior [...] Summer Pérez P.A.-C., M.S. 09/17/2021 10:49 AM [facility] [address] [place] [address] TRIC CONTAINER TESTER Associated attestation - Ursula Aguirre M.D. - 09/17/2021 2:51 PM ELECTRIC CONTAINER TESTER I saw and evaluated the patient and [...] for her aneurysm. [facility] needed. We will see her back in 6 months. Their questions were answered, and they were comfortable with this plan. Ursula Aguirre M.D., 09/17/2021 documented in this encounter Plan of Treatment Upcoming Encounters Date Type Specialty Care Team Description 04/22/2022 Clinical Admitting/Central Communication Scheduling 04/26/2022 Appointment Radiology Mark Eastman M.D., M.S. [address] [place] [phone] 04/26/2022 Office Visit Otorhinolaryngology Roxanne Lanza APRN, C.N.P. [address] [place] [phone] 04/28/2022 Appointment Radiation Oncology Ursula Aguirre M.D. [address] [place] [phone] Scheduled Referrals Name Type Priority Associated Order Schedule Diagnoses Radiation Oncology Outpatient Referral Routine On ce for 1 office visit Occurrences sta rting (clinic) 09/17/2021 unti l 09/17/2021 documented as of this encounter Results (ABNORMAL) Thyroid Function [place] (09/17/2021 10:38 AM ELECTRIC CONTAINER TESTER) P athologist Signature TSH, Sensitive 17.4 (H) 0.3 - 4.2 09/17/2021 OWAT mIU/L 1:30 PM ELECTRIC CONTAINER TESTER Specimen Anatomical Collection Method Collection Time Receive d Time (Source) Location / / Volume Laterality Blood (Blood, 09/17/2021 10:38 09/17/2021 Venous) AM ELECTRIC CONTAINER TESTER 12:44 PM ELECTRIC CONTAINER TESTER Summer Pérez P.A.-C., M.S. 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
--- OUTSIDE RECORDS SUMMARY | 2022-04-07 09:36 | XMS_ITS | Encounter Summary ---
:1955 Author Organization [facility] Address [address] [place] [address] Care Team Providers Name Role Phone Unavailable Primary Care Provider Unavailable Encounter Details Date Type Department Care Team Description 09/04/2021 Clinical Communication Department of Ursula Aguirre Radiation Oncology Kimberley Kaur [place] [address] [facility] [address] [place] [phone] Social History Tobacco Use Types Packs/Day Years [...] do you attend confucianism or Never 2018 buddhist services? Do you [...] just get these other appointments scheduled? Ayla AST MACHINE OPERATOR Telephone Encounter - Ayla Orellana - 09/04/2021 [...] to them with a plan. Phone number: [phone] Is it okay to leave a voicemail on answering machine with test results? No Pharmacy (if medication related): N/A Ayla Orellana AST MACHINE OPERATOR documented in this encounter Plan of Treatment Upcoming Encounters Date Type Specialty Care Team Description 04/22/2022 Clinical Admitting/Central Communication Scheduling 04/26/2022 Appointment Radiology Mark Eastman M.D., M.S. [address] [place] [phone] 04/26/2022 Office Visit Otorhinolaryngology Roxanne Lanza, RECEPTION, C.N.P. [address] [place] [phone] 04/28/2022 Appointment Radiation Oncology Ursula Aguirre M.D. [address] [place] [phone] documented as of this encounter Visit Diagnoses Not on filedocumented in this encounter
--- OUTSIDE RECORDS SUMMARY | 2022-04-07 09:36 | XMS_ITS | Encounter Summary ---
:1955 Author Organization [facility] Address [address] [place] [address] Care Team Providers Name Role Phone Unavailable Primary Care Provider Unavailable Reason for Referral Outpatient (Routine) - Closed Specialty Diagnoses / Procedures Referred By Contact Refer red To Contact Diagnoses Preoperative Examination Cardiovascular Reynaldo Alfaro Jemison Maude on Procedures US Carotid Bilateral M.D. [address] [place] [phone] Referral ID Status Reason Start Date Expiration Date Visits Requ ested Visits Authorized [id number] Closed 09/22/2021 09/22/2022 1 1 MECHANIC APPRENTICE Reason for Visit Outpatient (Routine) - Closed Specialty Diagnoses / Procedures Referred By Contact Refer red To Contact Diagnoses Preoperative Examination Cardiovascular Reynaldo Alfaro Jemison Maude on Procedures US Carotid Bilateral M.D. [address] [place] [phone] Referral ID Status Reason Start Date Expiration Date Visits Requ ested Visits Authorized [id number] Closed 09/22/2021 09/22/2022 1 1 Encounter Details Date Type Department Care Team Description 10/16/2021 Hospital Encounter Department of Magdalena Alfaro Radiology, Brenda Trevizo M.D. Examination Building, in [address] [place] [phone] [place] [address] [place], [place] (Work) [phone] Social History Tobacco Use Types Packs/Day Years [...] times do you More than three josé migeul es a week 02/21/2019 talk on the phone with family, friends, or neighbors? How often do you get together with friends Once a week 02/21/2019 or relatives? How often do you attend jain or Never 2018 mandaen services? Do you [...] Radiology Mark Eastman M.D., M.S. [address] [place] [phone] 04/26/2022 Office Visit Otorhinolaryngology Roxanne Lanza APRN, C.N.P. [address] [place] [phone] 04/28/2022 Appointment Radiation Oncology Ursula Aguirre M.D. [address] [place] [phone] documented as of this encounter Procedures Procedure Name Priority Date/Time Associated Diagnosis Comme nts US CAROTID RAD - Routine 10/16/2021 10:17 Preoperative Results fo r BILATERAL (most inpatients AM AUTO MECHANIC APPRENTICE Examination this proced ure and all Cardiovascular are in the outpatients) results section. documented in this encounter Results US Carotid Bilateral (10/16/2021 10:17 AM AUTO MECHANIC APPRENTICE) Anatomical Region Laterality Modality Head and Neck, Ultrasound RST LOS, Ultrasound ARZ LOS, Bilat eral Ultrasound Neuroradiology FLA LOS Specimen (Source) Anatomical Collection Method Collection Time Re ceived Time Location / / Volume Laterality 10/16/2021 10:45 AM AUTO MECHANIC APPRENTICE Impressions 10/16/2021 10:49 AM AUTO MECHANIC APPRENTICE 1. 50-69% diameter stenosis in the proximal left internal carotid artery. 2. No evidence for significant right-daly ed carotid artery stenosis. Narrative 10/16/2021 10:49 AM AUTO MECHANIC APPRENTICE EXAM: US CAROTID BILATERAL Exam performed with [...] normal distal ICA in accordance with [place] Symptomatic Carotid Endar terectomy Trial (NASCET). Procedure [...] normal distal ICA in accordance with [place] Symptomatic Carotid Endar terectomy Trial (NASCET). IMPRESSION: 1. 50-69% diameter stenosis in the proxi mal left internal carotid artery. 2. No evidence for significant right-daly ed carotid artery stenosis. Reynaldo OCAMPO US PROCEDURES documented in this encounter Visit Diagnoses Diagnosis Preoperative Examination Cardiovascular documented in this encounter
--- OUTSIDE RECORDS SUMMARY | 2022-04-07 09:36 | XMS_ITS | Encounter Summary ---
:1955 Author Organization [facility] Address [address] [place] [address] Care Team Providers Name Role Phone Unavailable Primary Care Provider Unavailable Reason for Referral MRI/CAT/PET Scan (Routine) - Closed Specialty Diagnoses / Procedures Referred By Contact Refer red To Contact Radiology Diagnoses Aneurysm Thoracic Aortic Without Rupture (HCC) Ursula Aguirre M.D. [place] [facility] Procedures CT Abdomen Pelvis Angiogram with IV Contrast 200 [place] [address] Referral ID Status Reason Start Date Expiration Date Visits Requ ested Visits Authorized [id number] Closed 06/26/2020 09/15/2021 1 1 ATTENDANT Reason for Visit MRI/CAT/PET Scan (Routine) - Closed Specialty Diagnoses / Procedures Referred By Contact Refer red To Contact Radiology Diagnoses Aneurysm Thoracic Aortic Without Rupture (HCC) Ursula Aguirre M.D. [place] [facility] Procedures CT Abdomen Pelvis Angiogram with IV Contrast 200 [place], [place] [phone] Referral ID Status Reason Start Date Expiration Date Visits Requ ested Visits Authorized [id number] Closed 06/26/2020 09/15/2021 1 1 Encounter Details Date Type Department Care Team Description 09/15/2021 Hospital Encounter Department of Ursula Aguirre [facility] Thoracic Radiology, Brenda Bacon M.D. Aortic Without Building, in [address] [facility] Rupture (HCC) [facility] [address] [place], [place] (Work) [address] [phone] Social History Tobacco Use Types Packs/Day Years [...] do you attend presybeterian or Never 2018 sikh services? Do you [...] Radiology Mark Eastman M.D., M.S. [address] [place] [phone] 04/26/2022 Office Visit Otorhinolaryngology Roxanne Lanza, BASS GUITAR TEACHER, C.N.P. [address] [place] [phone] 04/28/2022 Appointment Radiation Oncology Ursula Aguirre M.D. [address] [place] [phone] Scheduled Orders Name Type Priority Associated Diagnoses [...] this ANGIOGRAM WITH IV (most inpatients AM BABY ATTENDANT Aortic Without proc edure are in CONTRAST and all Rupture (HCC) the results outpatients) section. CREATININE, POCT, Routine 09/15/2021 10:52 Result s for this B AM BABY ATTENDANT procedure are i n the results section. CREATININE, POCT, Routine 09/15/2021 10:52 Result s for this B AM BABY ATTENDANT procedure are i n the results section. documented in this encounter Results CT Abdomen Pelvis Angiogram with IV Contrast (09/15/2021 11:44 AM BABY ATTENDANT) Anatomical Region Laterality Modality Abdomen, Pelvis, Cardiovascular RST N/A Comp uted Tomography, Computed LOS, Abdominal ARZ LOS, Vascular Tomogra phy Interventional ARZ LOS, Abdominal FLA LOS, Vascular Interventional FLA LOS Specimen (Source) Anatomical Collection Method Collection Time Re ceived Time Location / / Volume Laterality 09/15/2021 11:25 AM BABY ATTENDANT Impressions 09/15/2021 1:06 PM BABY ATTENDANT Enlarging infrarenal abdominal aortic aneurysm measuring 56 x 57 mm in maximum orthogonal dimension (previou sly 49 x 51 mm in 03/20/2019). Narrative 09/15/2021 1:06 PM BABY ATTENDANT EXAM: ??CT ABDOMEN PELVIS ANGIOGRAM WITH IV [...] PROCEDURES (ABNORMAL) Creatinine, POCT (09/15/2021 10:52 AM BABY ATTENDANT) athologist Signature Creatinine, 1.1 (H) 0.6 - 1.0 09/15/2021 [facility] PO[facility], B mg/dL 10:56 AM BABY ATTENDANT Comment: ----ADDITIONAL INFORMATION---- Performed at the Point of Care Specimen Anatomical Collection Method Collection Time Receive d Time (Source) Location / / Volume Laterality Blood 09/15/2021 10:52 09/15/2021 AM BABY ATTENDANT 10:56 AM BABY ATTENDANT Unknown Provider LAB POCT ORDERABLES - DEVICE Performing Organization Address City/State/ZIP Code Phon e Number POC [facility] [address] [place] [address] OUTPATIENT LABS [facility] [place] [address] [facility] [address] (ABNORMAL) Creatinine, POCT (09/15/2021 10:52 AM BABY ATTENDANT) athologist Signature eGFR-Black/Afri 61 >=60 09/15/2021 [facility] can [place], mL/min/BSA 10:56 AM BABY ATTENDANT POCT Comment: ----ADDITIONAL INFORMATION---- Estimated GFR calculated using the 2009 CKD_EPI creatinine equation. eGFR Non-Black/ 53 (L) >=60 mL/min/BSA 09/15/2021 10:56 AM BABY ATTENDANT [facility] [place], POCT Comment: ----ADDITIONAL INFORMATION---- Estimated GFR calculated using the 2009 CKD_EPI creatinine equation. Specimen Anatomical Collection Method Collection Time Receive d Time (Source) Location / / Volume Laterality Blood 09/15/2021 10:52 09/15/2021 AM BABY ATTENDANT 10:56 AM BABY ATTENDANT Unknown Provider LAB POCT ORDERABLES - DEVICE Performing Organization Address City/State/ZIP Code Phon e Number [facility]OC [facility] [address] [place] [address] OUTPATIENT LABS [facility] [place] [phone] [place] [address] documented in this encounter Visit Diagnoses Diagnosis Aneurysm Thoracic Aortic Without Rupture (HCC) documented in this encounter Administered Medications Inactive Administered Medications - up to 3 most recent administrations Medication Order MAR Action Action Date Dose Rate Site iohexoL 350 mg iodine/mL solution Given 09/15/2021 11:14 AM BABY ATTENDANT 100 mL 1-200 mL (OMNIPAQUE) 1-200 mL, intravenous, Once in imaging, contrast, Starting on Tue09/15/21 at 1049, For 1 dose, Imaging Protocol Orders, Dose per Radiant Medication Guidelines sodium chloride (PF) 0.9 % injection 1-1 00 mL Given 09/15/2021 11:14 AM BABY ATTENDANT 30 mL 1-100 mL, intravenous, Once, On Tue09/15/21 at 1100, For 1 dose, Imaging Protocol Orders documented in this encounter
--- OUTSIDE RECORDS SUMMARY | 2022-04-07 09:36 | XMS_ITS | Encounter Summary ---
:1955 Author Organization [facility] Address [address] [place] [address] Care Team Providers Name Role Phone Unavailable Primary Care Provider Unavailable Encounter Details Date Type Department Care Team Description 09/17/2021 Clinical Communication Department of Radiation Kareem Pérez, Oncology in [place], P.A.-Estefanía., .S. [place] [address] [place] [address] [address] [place] [phone] Social History Tobacco Use Types Packs/Day Years [...] do you attend protestant or Never 2018 christian services? Do you [...] Pérez P.A.-C., M.S. - 09/17/2021 3:00 PM PERSONNEL OFFICER TSH: 17.4 mIU/L I called and spoke to the patient's [id number], Darlin, today as this is the only [...] like the prescription sent to [facility] in [place]. We also discussed re-checking thyroid lab work in 6 weeks, which I will order to be done again at [facility]. Darlin was in agreement with the plan and her questions were answered. I asked for her or the patient to call us back with any further questions or concerns. She verbally expressed her understanding of the plan. Summer Pérez P.A.-C. ONNEL OFFICER documented in this encounter Plan of Treatment Upcoming Encounters Date Type Specialty Care Team Description 04/22/2022 Clinical Admitting/Central Communication Scheduling 04/26/2022 Appointment Radiology Mark Eastman M.D., M.S. [address] [place] [phone] 04/26/2022 Office Visit Otorhinolaryngology Roxanne Lanza, ZINC PLATE CUTTER, C.N.P. [address] [place] [phone] 04/28/2022 Appointment Radiation Oncology Ursula Aguirre M.D. [address] [place] [phone] documented as of this encounter Results (ABNORMAL) Thyroid Function [place] (10/29/2021 12:47 PM CDT) athologist Signature TSH, Sensitive 7.0 (H) 0.3 - 4.2 10/29/2021 [place] mIU/L 5:10 PM CDT Specimen Anatomical Collection Method Collection Time Receive d Time (Source) Location / / Volume Laterality Blood (Blood, 10/29/2021 12:47 10/29/2021 3:29 Venous) PM CDT PM CDT Summer Pérez P.A.-C., M.S. LAB BLOOD ADD-ON Performing Organization Address City/State/ZIP Code Phon e Number [facility]- [address] [place] [address] [place] [address] System in [place] [address] documented in this encounter Visit Diagnoses Diagnosis Hypothyroidism Secondary - Primary documented in this encounter
--- OUTSIDE RECORDS SUMMARY | 2022-04-07 09:36 | XMS_ITS | Encounter Summary ---
:[address] [facility] Address [address] [place] [address] Care Team Providers Name Role Phone Unavailable Primary Care Provider Unavailable Reason for Referral Outpatient (Routine) - Closed Specialty Diagnoses / Procedures Referred By Contact Refer red To Contact Vascular Medicine Diagnoses Aneurysm Abdominal Aortic Without Rupture (HCC) Preoperative Examination Cardiovascular Reynaldo Alfaro [place] [facility] M.DShital [address] [place] [phone] Referral ID Status Reason Start Date Expiration Date Visits Requ ested Visits Authorized [id number] Closed 09/22/2021 09/22/2022 1 1 Scheduling Instructions Please schedule for October 16, 2021 after carotid ultrasound. ANALYST Outpatient (Routine) - Closed Specialty Diagnoses / Procedures Referred By Contact Refer red To Contact Diagnoses Preoperative Examination Reynaldo Patel [place] [facility] Procedures US Carotid Bilateral M.D. [address] [place] [phone] Referral ID Status Reason Start Date Expiration Date Visits Requ ested Visits Authorized [id number] Closed 09/22/2021 09/22/2022 1 1 ANALYST Reason for Visit Outpatient (Routine) - Closed Specialty Diagnoses / Procedures Referred By Contact Refer red To Contact Vascular Medicine Diagnoses Aneurysm Abdominal Aortic Without Rupture (HCC) Mark Eastman [facility] [facility] M.D., M.S. [address] [place] [phone] Referral ID Status Reason Start Date Expiration Date Visits Requ ested Visits Authorized [id number] Closed 09/15/2021 09/15/2022 1 1 Encounter Details Date Type Department Care Team Description 09/22/2021 Office Visit Department of [place], Aneurysm Abdom inal Aortic Without Rupture (HCC) (Primary Dx); Vascular Medicine in [place] Yao Hypertension Essential Primary; [place], [place] 200 [facility] Hyperlipidemia; 200 [place], [place] Smoking Tobacco Use Personal History; [place] [address] Preoperative Examination Cardiovascular [phone] Social History Tobacco Use Types Packs/Day Years [...] do you attend jew or Never 2018 catholic services? Do you [...] Comments Blood Pressure 147/83 09/22/2021 3:25 PM DATA ANALYST Pulse 86 09/22/2021 3:25 PM DATA ANALYST Temperature - - Respiratory Rate - - Oxygen Saturation - - Inhaled Oxygen Concentration - - Weight 87.2 kg (192 lb 3.9 oz) 09/22/2021 3:21 PM DATA ANALYST Height 166.3 cm (5' 5.47) 09/22/2021 3:21 PM DATA ANALYST Body Mass Index 31.53 09/22/2021 3:21 PM DATA ANALYST documented in this encounter Consult Notes Reynaldo Alfaro M.D. - 09/22/2021 3:15 PM CST REFERRAL SOURCE Mark Eastman M.D., M.S. [address] [place] [phone] SUBJECTIVE CHIEF COMPLAINT / REASON FOR VISIT HISTORY OF PRESENT ILLNESS Ms. Narayan is a 66 y.o. female that I am seeing today for an opinion and recommendations on an abdominal aortic aneurysm. The patient has been referred by Mark Eastman M.D., M.S. Mrs. Narayanis and is accompanied today by a [id number]. Mrs. Narayan is currently seeing Dr. Eastman [...] of 11.2 and a platelet count of [id number]. Her sodium was 135 with a potassium [...] of care: 30 minutes. Reynaldo Alfaro M.D. ANALYST documented in this encounter Plan of Treatment Upcoming Encounters Date Type Specialty Care Team Description 04/22/2022 Clinical Admitting/Central Communication Scheduling 04/26/2022 Appointment Radiology Mark Eastman M.D., M.S. [address] [place] [phone] 04/26/2022 Office Visit Otorhinolaryngology Roxanne Lanza, GENERAL SUPERVISOR, C.N.P. [address] [place] [phone] 04/28/2022 Appointment Radiation Oncology Ursula Aguirre M.D. [address] [place] [phone] Scheduled Referrals Name Type Priority Associated Diagnoses Order S chedule Vascular Medicine Outpatient Referral Routine Aneurysm Abdomin al Expected: office visit Aortic Without Rupture 09/22 (clinic) General (HCC) (Approximate), Preoperative Expires: Examination 12/20/2022 Cardiovascular documented as of this encounter Results US Carotid Bilateral (10/16/2021 10:17 AM DATA ANALYST) Anatomical Region Laterality Modality Head and Neck, Ultrasound RST LOS, Ultrasound ARZ LOS, Bilat eral Ultrasound Neuroradiology FLA [facility] Specimen (Source) Anatomical Collection Method Collection Time Re ceived Time Location / / Volume Laterality 10/16/2021 10:45 AM DATA ANALYST Impressions 10/16/2021 10:49 AM DATA ANALYST 1. 50-69% diameter stenosis in the proximal left internal carotid artery. 2. No evidence for significant right-daly ed carotid artery stenosis. Narrative 10/16/2021 10:49 AM DATA ANALYST EXAM: US CAROTID BILATERAL Exam performed [...] normal distal ICA in accordance with [place] Symptomatic Carotid Endar terectomy Trial (NASCET). Procedure [...] normal distal ICA in accordance with [place] Symptomatic Carotid Endar terectomy Trial (NASCET). IMPRESSION: [...]
--- OUTSIDE RECORDS SUMMARY | 2022-04-07 09:36 | XMS_ITS | Encounter Summary ---
:1955 Author Organization [facility] Address [address] [place] [address] Care Team Providers Name Role Phone Unavailable Primary Care Provider Unavailable Encounter Details Date Type Department Care Team Description 09/17/2021 Hospital Encounter Department of Summer Pérez Maligna nt Neoplasm Of Laboratory Medicine P.Marilou., M.S . Supraglottic (HCC) in [place], [address] [place] [address] [address] [facility] [phone] [place], [place] [phone] (Work) [phone] Social History Tobacco Use Types Packs/Day Years [...] do you attend congregation or Never 2018 jew services? Do you [...] Radiology Mark Eastman M.D., M.S. [address] [place] [phone] 04/26/2022 Office Visit Otorhinolaryngology Roxanne Lanza, PARAFFIN PLANT OPERATOR, C.N.P. [address] [place] [phone] 04/28/2022 Appointment Radiation Oncology Ursula Aguirre M.D. [address] [place] [phone] documented as of this encounter Procedures Procedure Name Priority Date/Time Associated Diagnosis Comme nts [place] MICROSOMAL AB Routine 09/17/2021 10:38 Results for this EA/TPO AM PCU RN procedure are i n the results section. [place] T4 FREE Routine 09/17/2021 10:38 Results for this AM PCU RN procedure are i n the results section. THYROID FUNCTION Routine 09/17/2021 10:38 Malignant Neoplasm O f Results for this CASCADE, S AM PCU RN Supraglottic (HCC) procedure are in the results section. documented in this encounter Results T4 (Thyroxine), Free, Serum (09/17/2021 10:38 AM PCU RN) P athologist Signature T4 (Thyroxine), 1.0 0.9 - 1.7 09/17/2021 [place] Free, S ng/dL 2:06 PM PCU RN Comment: Biotin has been identified by the [...] Volume Laterality Blood 09/17/2021 10:38 09/17/2021 AM PCU RN 12:44 PM PCU RN Summer Pérez P.A.-C., M.S. LAB BLOOD ADD-ON Performing Organization Address City/State/ZIP Code Phon e Number [facility]- [address] [place] [address] [place] [address] System in [place] [address] [place] [address] Thyroperoxidase (TPO) Antibodies, Serum (09/17/2021 10:38 AM PCU RN) Patholo gist Method Time Signature Thyroperoxidase Ab, 1.4 <9.0 09/18/2021 [place] S IU/mL 8:57 AM PCU RN Specimen Anatomical Collection Method Collection Time Receive d Time (Source) Location / / Volume Laterality Blood 09/17/2021 10:38 09/18/2021 8:15 AM PCU RN AM PCU RN Summer Pérez P.A.-C., M.S. LAB BLOOD NON ADD-ON Performing Organization Address City/State/ZIP Code Phon e Number [facility] - [address] [place], [place] [address] [facility] [place] [address] Laboratories-[facility] [address] (ABNORMAL) Thyroid Function [place] (09/17/2021 10:38 AM PCU RN) P athologist Signature TSH, Sensitive 17.4 (H) 0.3 - 4.2 09/17/2021 [place] mIU/L 1:30 PM PCU RN Specimen Anatomical Collection Method Collection Time Receive d Time (Source) Location / / Volume Laterality Blood (Blood, 09/17/2021 10:38 09/17/2021 Venous) AM PCU RN 12:44 PM PCU RN Summer Pérez P.A.-C., M.S. 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
--- OUTSIDE RECORDS SUMMARY | 2022-04-07 09:36 | XMS_ITS | Encounter Summary ---
:1955 Author Organization [facility] Address [address] [place] [address] Care Team Providers Name Role Phone Unavailable Primary Care Provider Unavailable Encounter Details Date Type Department Care Team Description 09/22/2021 Hospital Encounter Department of [place]aren, Aneurysm Abdominal Laboratory Medicine Mark Frederick M.D., Aort ic Without and Pathology, M.S. Rupture ([facility]) [place] [address] [place] [phone] [place] [address] [place], [place] (Work) [phone] Social History Tobacco Use Types Packs/Day Years [...] do you attend cheondoism or Never 2018 sikh services? Do you [...] to pay for the very basics like [employer] hat hard 02/21/2019 food, housing, medical care, [...] Radiology Mark Eastman M.D., M.S. [address] [place] [phone] 04/26/2022 Office Visit Otorhinolaryngology Roxanne Lanza, [employer] OFFBEARER, C.N.P. [address] [place] [phone] 04/28/2022 Appointment Radiation Oncology Ursula Aguirre M.D. [address] [place] [phone] documented as of this encounter Procedures Procedure Name Priority Date/Time Associated Diagnosis Comme nts LIPID PANEL, S Routine 09/22/2021 10:21 AM Aneurysm Abdominal Results for this SALES TEAM [employer]BER Aortic Without procedure are in Rupture (HCC) the results section. HEPATIC FUNCTION Routine 09/22/2021 10:21 AM Aneurysm Abdomina l Results for this PANEL, S SAL[employer]BER Aortic Without procedure are in Rupture (HCC) the results section. CBC WITH Routine 09/22/2021 10:21 AM Aneurysm Abdominal Re sults for this DIFFERENTIAL, B SAL[employer] TE[employer]BER Aortic Without procedure are in Rupture (HCC) the results section. TYPE AND SCREEN Routine 09/22/2021 10:21 AM Aneurysm Abdominal Results for this SALES TEAM MEMBER Aortic Without procedure are in Rupture (HCC) the results section. BASIC METABOLIC Routine 09/22/2021 10:21 AM Aneurysm Abdominal Results for this PANEL, S/P SALES [employer] MEMBER Aortic Without procedure are in Rupture (HCC) the results section. documented in this encounter Results Type and Screen (with reflex Antibody ID) (09/22/2021 10:21 AM SALES TEAM MEMBER) Patholo gist Method Time Signature ABORh A Pos Not 09/22/2021 ETRM applicable 4:15 PM SALES TEAM [employer]BER Antibody Negative Negative 09/22/2021 ETRM Screen 4:26 PM SALES TEAM MEMBER Type & Screen 11/20/2021 09/22/2021 ETRM Expiration 23:59 4:15 PM SALES TEAM MEMBER Testing Elizabeth DEFAULT 09/22/2021 ETRM Location 10:52 AM SALES TEAM MEMBER Specimen Anatomical Collection Method Collection Time Receive d Time (Source) Location / / Volume Laterality Blood (Blood, 09/22/2021 10:21 09/22/2021 Venous) AM SALES TE[employer] MEMBER 10:52 AM SALES TEAM MEMBER Mark Eastman M.D., M.S. LAB BLOOD BANK TEST ORD ERABLES Performing Organization Address City/State/ZIP Code Phon e Number [facility] - [address] [place], [place] [address] [facility] [address] Laboratories-[facility] [address] (ABNORMAL) Lipid Panel (09/22/2021 10:21 AM SALES TEAM MEMBER) P athologist Signature Cholesterol, 265 (H) mg/dL 09/22/2021 DTL Total 11:30 AM SALES TEAM MEMBER Comment: ----REFERENCE VALUE---- Desirable: < 200 Borderline high: 200 - 239 High: > or = 240 Triglycerides 390 (H) mg/dL 09/22/2021 11:30 AM SALES TEAM MEMBER DT L Comment: ----REFERENCE VALUE---- Normal: <150 Borderline high: 150-199 High: 200-499 Very high: > or =500 Cholesterol, HDL, S 37 (L) >=50 mg/dL 09/22/2021 11:30 AM SALES TEAM MEMBER DTL Calculated LDL 150 (H) mg/dL 09/22/2021 11:30 AM SALES TEAM MEMBER D TL Comment: ----REFERENCE VALUE---- Desirable: <100 mg/dL Above Desirable: 100-129 mg/dL Borderline High: 130-159 mg/dL High: 160-189 mg/dL Very High: >=190 mg/dL Cholesterol, Non-HDL, Calculated 228 (H) mg/dL 022 11:30 AM SALES TEAM MEMBER DTL Comment: ----REFERENCE VALUE---- Desirable: <130 Above Desirable: 130-159 Borderline high: 160-189 High: 190-219 Very high: > or =220 Specimen Anatomical Collection Method Collection Time Receive d Time (Source) Location / / Volume Laterality Blood (Blood, 09/22/2021 10:21 09/22/2021 Venous) AM SALES TEAM MEMBER 11:11 AM SALES TEAM MEMBER Mark Eastman M.D., M.S. LAB BLOOD ADD-ON Performing Organization Address City/State/ZIP Code Phon e Number [facility] - [address] [place] [address] [phone] [facility] [place] [address] Laboratories[address] Hepatic Function Panel (09/22/2021 10:21 AM SALES TEAM MEMBER) [facility] gist Method Time Signature Bilirubin, Total, S 0.3 <=1.2 09/22/2021 DTL mg/dL 11:29 AM SALES TEAM MEMBER Bilirubin, Direct, S <0.2 0.0 - 0.3 09/22/2021 DTL mg/dL 11:29 AM SALES TE[employer] MEMBER Aspartate 15 8 - 43 09/22/2021 DTL Aminotransferase U/L 11:29 AM SALES TEAM MEMBER (AST), S Alanine 13 7 - 45 09/22/2021 DTL Aminotransferase U/L 11:29 AM SALES TEAM MEMBER (ALT), S Alkaline 69 35 - 104 09/22/2021 DTL Phosphatase, S U/L 11:29 AM SALES TE[employer] MEMBER Albumin, S 4.3 3.5 - 5.0 09/22/2021 DTL g/dL 11:29 AM SALES TE[employer] MEMBER Protein, Total, S 7.1 6.3 - 7.9 09/22/2021 DTL g/dL 11:29 AM SALES TEAM MEMBER Specimen Anatomical Collection Method Collection Time Receive d Time (Source) Location / / Volume Laterality Blood (Blood, 09/22/2021 10:21 09/22/2021 Venous) AM SALES TEAM MEMBER 11:11 AM SALES TEAM MEMBER Mark Eastman M.D., M.S. LAB BLOOD ADD-ON Performing Organization Address City/State/ZIP Code Phon e Number [facility] - 200 [place], [place] [address] [facility] [place] [address] [facility] [address] [facility] (ABNORMAL) CBC with Differential, Blood (09/22/2021 10:21 AM SALES TEAM MEMBER) [facility] Method Time Signature Hemoglobin 11.2 (L) 11.6 - 09/22/2021 DTL 15.0 g/dL 10:59 AM SALES TEAM MEMBER Hematocrit 35.2 (L) 35.5 - 09/22/2021 DTL 44.9 % 10:59 AM SALES TEAM MEMBER Erythrocytes 3.87 (L) 3.92 - 09/22/2021 DTL 5.13 10:59 AM SALES TEAM MEMBER x10(12)/L MCV 91.0 78.2 - 09/22/2021 DTL 97.9 fL 10:59 AM SALES TEAM MEMBER RBC Distrib Width 15.4 12.2 - 09/22/2021 DTL 16.1 % 10:59 AM SALES TEAM MEMBER Platelet Count 271 157 - 371 09/22/2021 DTL x10(9)/L 10:59 AM SALES TEAM MEMBER Leukocytes 5.3 3.4 - 9.6 09/22/2021 DTL x10(9)/L 10:59 AM SALES TEAM MEMBER Neutrophils 3.56 1.56 - 09/22/2021 DTL 6.45 10:59 AM SALES TEAM MEMBER x10(9)/L Lymphocytes 0.82 (L) 0.95 - 09/22/2021 DTL 3.07 10:59 AM SALES TEAM MEMBER x10(9)/L Monocytes 0.48 0.26 - 09/22/2021 DTL 0.81 10:59 AM SALES TEAM MEMBER x10(9)/L Eosinophils 0.35 0.03 - 09/22/2021 DTL 0.48 10:59 AM SALES TEAM MEMBER x10(9)/L Basophils 0.04 0.01 - 09/22/2021 DTL 0.08 10:59 AM SALES TEAM MEMBER x10(9)/L Specimen Anatomical Collection Method Collection Time Receive d Time (Source) Location / / Volume Laterality Blood (Blood, 09/22/2021 10:21 09/22/2021 Venous) AM SALES TE[employer] MEMBER 10:49 AM SALES TEAM MEMBER Mark Eastman M.D., M.S. LAB BLOOD ADD-ON Performing Organization Address City/State/ZIP Code Phon e Number [facility] - 200 [place], [place] [address] [facility] [place] [address] [facility] 200 [facility] (ABNORMAL) Basic Metabolic Panel (09/22/2021 10:21 AM SALES TEAM MEMBER) Analysis Performed At Patho logist Time Signature Potassium, S 4.7 3.6 - 5.2 09/22/2021 DTL mmol/L 11:29 AM SALES TEAM MEMBER Sodium, S 135 135 - 145 09/22/2021 DTL mmol/L 11:29 AM SALES TEAM MEMBER Chloride, S 98 98 - 107 09/22/2021 DTL mmol/L 11:29 AM SALES TEAM MEMBER Bicarbonate, S 27 22 - 29 09/22/2021 DTL mmol/L 11:29 AM SALES TEAM MEMBER Anion Gap 10 7 - 15 09/22/2021 DTL 11:29 AM SALES TEAM MEMBER BUN (Blood Urea 24 (H) 6 - 21 09/22/2021 DTL Nitrogen), S mg/dL 11:29 AM SALES TEAM MEMBER Creatinine 1.11 (H) 0.59 - 09/22/2021 DTL 1.04 mg/dL 11:29 AM SALES TEAM MEMBER eGFR-Non 52 (L) >=60 09/22/2021 DTL Black/ mL/min/BSA 11:29 AM SALES TEAM MEMBER [place] Comment: ----ADDITIONAL INFORMATION---- Estimated GFR calculated using the 2009 CKD_EPI creatinine equation. eGFR-Black/ 60 >=60 mL/min/BSA 2021 11:29 AM SALES TEAM MEMBER DTL Comment: ----ADDITIONAL INFORMATION---- Estimated GFR calculated using the 2009 CKD_EPI creatinine equation. Calcium, Total, S 9.7 8.8 - 10.2 mg/dL 09/22/2021 11:2 9 AM SALES TEAM MEMBER DTL Glucose, S 107 70 - 140 mg/dL 09/22/2021 11:29 AM SALES TEAM MEMBER DTL Specimen Anatomical Collection Method Collection Time Receive d Time (Source) Location / / Volume Laterality Blood (Blood, 09/22/2021 10:21 09/22/2021 Venous) AM SALES TEAM MEMBER 11:11 AM SALES TEAM MEMBER Mark Eastman M.D., M.S. LAB BLOOD ADD-ON Performing Organization Address City/State/ZIP Code Phon e Number [facility] - [address] [place], [place] [address] [facility] [place] [address] [facility] [address] documented in this encounter Visit Diagnoses Diagnosis Aneurysm Abdominal Aortic Without Ruptur e (HCC) documented in this encounter
--- OUTSIDE RECORDS SUMMARY | 2022-04-07 09:36 | XMS_ITS | Encounter Summary ---
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 Toño Procedures DX Chest AP or PA and Lateral 2 Views Kimberley, [place].S. 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 Malignant Neoplasm Of Supraglottic (HCC) [place] [facility] [place] [phone] Social History Tobacco Use Types Packs/Day Years [...] do you attend sikhism or Never 2018 spiritism services? Do you [...] Of Supraglottic (HCC) Mark Eastman M.D., M.S. E MACHINE OFFBEARER documented in this encounter Plan of Treatment Upcoming Encounters Date Type Specialty Care Team Description 04/22/2022 Clinical Admitting/Central Communication Scheduling 04/26/2022 Appointment Radiology Mark Eastman M.D., M.S. [address] [place] [phone] 04/26/2022 Office Visit Otorhinolaryngology Roxanne Lanza, TIE CARRIER, C.N.P. [address] [place] [phone] 04/28/2022 Appointment Radiation Oncology Ursula Aguirre M.D. [address] [place] [phone] Scheduled Referrals Name Type Priority Associated Order Schedule Diagnoses Vascular Medicine Outpatient Referral Routine Aneurysm Abdomin al 1 Occurrences - KAROL consult Aortic Without starting 08/2021 (clinic) Rupture (HCC) until 12/14/19 23 documented as of this encounter Results SARS Coronavirus-2 RNA, V Asymptomatic (10/19/2021 12:57 PM WASTE MACHINE OFFBEARER) [facility] Method Time Signature SARS-CoV-2 Swab, 10/20/2021 MKTO Specimen Nasopharynx 1:47 AM WASTE MACHINE OFFBEARER Source SARS CoV-2 Undetected Undetected 10/20/2021 MKTO RNA, TMA 1:47 AM WASTE MACHINE OFFBEARER Comment: SARS-CoV-2 RNA absent. This result does not rule out COVID-19 in the patient, as the sensitivity of the test depends o n the timing of the specimen collection and the quality of the specim en. Result should be correlated with patient's history and clinical presentat ion. ----ADDITIONAL INFORMATION---- This molecular amplification test was pe rformed using the Aptima SARS-CoV-2 assay ([employer] on the [employer]kicks tem under emergency use authorization (EUA) by the U.S. Food and Drug Administ ration. Fact sheets for this EUA assay can be fo und at the following links: For Healthcare Providers: https://www.Isonas a.gov/media/811315/download For Patients: https://www.fda.gov/media/ 102230/download Specimen Anatomical Collection Method Collection Time Receive d Time (Source) Location / / Volume Laterality Varies 10/19/2021 12:57 10/19/2021 7:37 (Nasopharynx) PM WASTE MACHINE OFFBEARER PM WASTE MACHINE OFFBEARER Mark Eastman M.D., M.S. LAB MICROBIOLOGY - [facility] ORDERABLES Performing Organization Address City/State/ZIP Code Phon e Number [facility]- [address] [place] [address] [place] [address] ECHO STRESS 2D WITH COLOR, LIMITED DOPPLER AND CONTRAST (09/22/2021 1:40 PM WASTE MACHINE OFFBEARER) [facility] Method Time Signature Ejection Fraction 60 [...] / / Volume Laterality 09/22/2021 12:25 PM WASTE MACHINE OFFBEARER Impressions 09/22/2021 8:44 PM WASTE MACHINE OFFBEARER STRESS TEST:Dobutamine was infused from 5 mcg/kg/min to 40 mcg/kg/min. A dose of 0.25 mg of atropine was administered. A peak heart rate of 144 BPM was achieved (93% age-predicted maximal HR). The test was terminated due to target heart rate achievement. The patient developed chest pain. The [facility] ECG demonstrated sinus rhythm. The [...] Order-L evel Documents. Narrative 09/22/2021 8:44 PM WASTE MACHINE OFFBEARER For the complete report, see the Order-Level [...] and Lateral 2 Views (09/22/2021 11:05 AM WASTE MACHINE OFFBEARER) Anatomical Region Laterality Modality Chest, Thoracic RST LOS, Thoracic ARZ LOS, Thoracic N/A Digital Radiography FLA LOS Specimen (Source) Anatomical Collection Method Collection Time Re ceived Time Location / / Volume Laterality 09/22/2021 11:14 AM WASTE MACHINE OFFBEARER Impressions 09/22/2021 11:36 AM WASTE MACHINE OFFBEARER Comparison PET/CT 06/12/2020. Prominent ascending aorta. Calcified tortuous aorta. Coronary calcification. Chest otherwise negative. Narrative 09/22/2021 11:36 AM WASTE MACHINE OFFBEARER EXAM: ??DX CHEST AP OR PA AND [...] PROCEDURES ECG 12 Lead (09/22/2021 10:50 AM WASTE MACHINE OFFBEARER) P athologist Signature Ventricular Rate 94 BPM MUSE ECG/Min NV Interval 188 ms MUSE QRSD Interval 76 ms MUSE QT Interval 360 ms MUSE QTC Interval 450 ms MUSE P Flushing 42 degrees MUSE R Flushing 43 degrees MUSE T Wave Flushing 67 degrees MUSE Specimen Anatomical Collection Method Collection Time Receive d Time (Source) Location / / Volume Laterality 09/22/2021 10:50 09/22/2021 AM WASTE MACHINE OFFBEARER 10:53 AM WASTE MACHINE OFFBEARER Impressions MUSE - 09/22/2021 10:53 AM WASTE MACHINE OFFBEARER Normal sinus rhythm Nonspecific ST abnormality No [...] (with reflex Antibody ID) (09/22/2021 10:21 AM WASTE MACHINE OFFBEARER) Patholo gist Method Time Signature ABORh A Pos Not 09/22/2021 ETRM applicable 4:15 PM WASTE MACHINE OFFBEARER Antibody Negative Negative 09/22/2021 ETRM Screen 4:26 PM WASTE MACHINE OFFBEARER Type & Screen 11/20/2021 09/22/2021 ETRM Expiration 23:59 4:15 PM WASTE MACHINE OFFBEARER Testing [place] [facility] 09/22/2021 ETRM Location 10:52 AM WASTE MACHINE OFFBEARER Specimen Anatomical Collection Method Collection Time Receive d Time (Source) Location / / Volume Laterality Blood (Blood, 09/22/2021 10:21 09/22/2021 Venous) AM WASTE MACHINE OFFBEARER 10:52 AM WASTE MACHINE OFFBEARER Mark Eastman M.D., M.S. LAB BLOOD BANK TEST ORD ERABLES Performing Organization Address City/State/ZIP Code Phon e Number [facility] - [address] [place], [place] [address] [facility] [address] Laboratories-[facility] [address] (ABNORMAL) Lipid Panel (09/22/2021 10:21 AM WASTE MACHINE OFFBEARER) P athologist Signature Cholesterol, 265 (H) mg/dL 09/22/2021 DTL Total 11:30 AM WASTE MACHINE OFFBEARER Comment: ----REFERENCE VALUE---- Desirable: < 200 Borderline high: 200 - 239 High: > or = 240 Triglycerides 390 (H) mg/dL 09/22/2021 11:30 AM WASTE MACHINE OFFBEARER DT L Comment: ----REFERENCE VALUE---- Normal: <150 Borderline high: 150-199 High: 200-499 Very high: > or =500 Cholesterol, HDL, S 37 (L) >=50 mg/dL 09/22/2021 11:30 AM WASTE MACHINE OFFBEARER DTL Calculated LDL 150 (H) mg/dL 09/22/2021 11:30 AM WASTE MACHINE OFFBEARER D TL Comment: ----REFERENCE VALUE---- Desirable: <100 mg/dL Above Desirable: 100-129 mg/dL Borderline High: 130-159 mg/dL High: 160-189 mg/dL Very High: >=190 mg/dL Cholesterol, Non-HDL, Calculated 228 (H) mg/dL 022 11:30 AM WASTE MACHINE OFFBEARER DTL Comment: ----REFERENCE VALUE---- Desirable: <130 Above Desirable: 130-159 Borderline high: 160-189 High: 190-219 Very high: > or =220 Specimen Anatomical Collection Method Collection Time Receive d Time (Source) Location / / Volume Laterality Blood (Blood, 09/22/2021 10:21 09/22/2021 Venous) AM WASTE MACHINE OFFBEARER 11:11 AM WASTE MACHINE OFFBEARER Mark Eastman M.D., M.S. LAB BLOOD ADD-ON Performing Organization Address City/State/ZIP Code Phon e Number [facility] - [address] [place] [address] [facility] [place] [address] [facility] 200 [facility] Hepatic Function Panel (09/22/2021 10:21 AM WASTE MACHINE OFFBEARER) Patholo gist Method Time Signature Bilirubin, Total, S 0.3 <=1.2 09/22/2021 DTL mg/dL 11:29 AM WASTE MACHINE OFFBEARER Bilirubin, Direct, S <0.2 0.0 - 0.3 09/22/2021 DTL mg/dL 11:29 AM WASTE MACHINE OFFBEARER Aspartate 15 8 - 43 09/22/2021 DTL Aminotransferase U/L 11:29 AM WASTE MACHINE OFFBEARER (AST), S Alanine 13 7 - 45 09/22/2021 DTL Aminotransferase U/L 11:29 AM WASTE MACHINE OFFBEARER (ALT), S Alkaline 69 35 - 104 09/22/2021 DTL Phosphatase, S U/L 11:29 AM WASTE MACHINE OFFBEARER Albumin, S 4.3 3.5 - 5.0 09/22/2021 DTL g/dL 11:29 AM WASTE MACHINE OFFBEARER Protein, Total, S 7.1 6.3 - 7.9 09/22/2021 DTL g/dL 11:29 AM WASTE MACHINE OFFBEARER Specimen Anatomical Collection Method Collection Time Receive d Time (Source) Location / / Volume Laterality Blood (Blood, 09/22/2021 10:21 09/22/2021 Venous) AM WASTE MACHINE OFFBEARER 11:11 AM WASTE MACHINE OFFBEARER Mark Eastman M.D., M.S. LAB BLOOD ADD-ON Performing Organization Address City/State/ZIP Code Phon e Number [facility] - 200 [place], [place] [address] [facility] [place] [address] [facility] 200 [facility] (ABNORMAL) CBC with Differential, Blood (09/22/2021 10:21 AM WASTE MACHINE OFFBEARER) [facility] Method Time Signature Hemoglobin 11.2 (L) 11.6 - 09/22/2021 DTL 15.0 g/dL 10:59 AM WASTE MACHINE OFFBEARER Hematocrit 35.2 (L) 35.5 - 09/22/2021 DTL 44.9 % 10:59 AM WASTE MACHINE OFFBEARER Erythrocytes 3.87 (L) 3.92 - 09/22/2021 DTL 5.13 10:59 AM WASTE MACHINE OFFBEARER x10(12)/L MCV 91.0 78.2 - 09/22/2021 DTL 97.9 fL 10:59 AM WASTE MACHINE OFFBEARER RBC Distrib Width 15.4 12.2 - 09/22/2021 DTL 16.1 % 10:59 AM WASTE MACHINE OFFBEARER Platelet Count 271 157 - 371 09/22/2021 DTL x10(9)/L 10:59 AM WASTE MACHINE OFFBEARER Leukocytes 5.3 3.4 - 9.6 09/22/2021 DTL x10(9)/L 10:59 AM WASTE MACHINE OFFBEARER Neutrophils 3.56 1.56 - 09/22/2021 DTL 6.45 10:59 AM WASTE MACHINE OFFBEARER x10(9)/L Lymphocytes 0.82 (L) 0.95 - 09/22/2021 DTL 3.07 10:59 AM WASTE MACHINE OFFBEARER x10(9)/L Monocytes 0.48 0.26 - 09/22/2021 DTL 0.81 10:59 AM WASTE MACHINE OFFBEARER x10(9)/L Eosinophils 0.35 0.03 - 09/22/2021 DTL 0.48 10:59 AM WASTE MACHINE OFFBEARER x10(9)/L Basophils 0.04 0.01 - 09/22/2021 DTL 0.08 10:59 AM WASTE MACHINE OFFBEARER x10(9)/L Specimen Anatomical Collection Method Collection Time Receive d Time (Source) Location / / Volume Laterality Blood (Blood, 09/22/2021 10:21 09/22/2021 Venous) AM WASTE MACHINE OFFBEARER 10:49 AM WASTE MACHINE OFFBEARER Mark Eastman M.D., M.S. LAB BLOOD ADD-ON Performing Organization Address City/State/[facility] Code Phon e Number [facility] - 200 [place], [place] [address] [facility] [place] [address] [facility] 200 [facility] (ABNORMAL) Basic Metabolic Panel (09/22/2021 10:21 AM WASTE MACHINE OFFBEARER) Analysis Performed At Patho logist Time Signature Potassium, S 4.7 3.6 - 5.2 09/22/2021 DTL mmol/L 11:29 AM WASTE MACHINE OFFBEARER Sodium, S 135 135 - 145 09/22/2021 DTL mmol/L 11:29 AM WASTE MACHINE OFFBEARER Chloride, S 98 98 - 107 09/22/2021 DTL mmol/L 11:29 AM WASTE MACHINE OFFBEARER Bicarbonate, S 27 22 - 29 09/22/2021 DTL mmol/L 11:29 AM WASTE MACHINE OFFBEARER Anion Gap 10 7 - 15 09/22/2021 DTL 11:29 AM WASTE MACHINE OFFBEARER BUN (Blood Urea 24 (H) 6 - 21 09/22/2021 DTL Nitrogen), S mg/dL 11:29 AM WASTE MACHINE OFFBEARER Creatinine 1.11 (H) 0.59 - 09/22/2021 DTL 1.04 mg/dL 11:29 AM WASTE MACHINE OFFBEARER eGFR-Non 52 (L) >=60 09/22/2021 DTL Black/ mL/min/BSA 11:29 AM WASTE MACHINE OFFBEARER [place] Comment: ----ADDITIONAL INFORMATION---- Estimated GFR calculated using the 2009 CKD_EPI creatinine equation. eGFR-Black/ 60 >=60 mL/min/BSA 2021 11:29 AM WASTE MACHINE OFFBEARER DTL Comment: ----ADDITIONAL INFORMATION---- Estimated GFR calculated using the 2009 CKD_EPI creatinine equation. Calcium, Total, S 9.7 8.8 - 10.2 mg/dL 09/22/2021 11:2 9 AM WASTE MACHINE OFFBEARER DTL Glucose, S 107 70 - 140 mg/dL 09/22/2021 11:29 AM WASTE MACHINE OFFBEARER DTL Specimen Anatomical Collection Method Collection Time Receive d Time (Source) Location / / Volume Laterality Blood (Blood, 09/22/2021 10:21 09/22/2021 Venous) AM WASTE MACHINE OFFBEARER 11:11 AM WASTE MACHINE OFFBEARER Mark Eastman M.D., M.S. 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
--- OUTSIDE RECORDS SUMMARY | 2022-04-07 09:36 | XMS_ITS | Encounter Summary ---
:1955 Author Organization [facility] Address [address] [place] [address] Care Team Providers Name Role Phone Unavailable Primary Care Provider Unavailable Encounter Details Date Type Department Care Team Description 10/19/2021 Hospital Encounter Department of Jaren, Aneurysm Abdominal Laboratory Medicine Mark Frederick M.D., Aort ic Without in Kenneth Larkin Rupture (HCC) [place] [address] [facility] [address] [place] [phone] Social History Tobacco Use Types Packs/Day Years [...] do you attend gnosticist or Never 2018 synagogue services? Do you [...] Radiology Mark Eastman M.D., M.S. [address] [place] [phone] 04/26/2022 Office Visit Otorhinolaryngology Roxanne Lanza, CIGARETTE PAPER TESTER, C.N.P. [address] [place] [phone] 04/28/2022 Appointment Radiation Oncology Ursula Aguirre M.D. [address] [place] [phone] documented as of this encounter Procedures Procedure Name Priority Date/Time Associated Diagnosis Comme nts SARS CORONAVIRUS-2 Routine 10/19/2021 12:57 PM Aneurysm Abdomi nal Results for this RNA, V ABORIGINAL COMMUN[employer] COUNCIL MEMBER Aortic Without procedure are in Rupture (HCC) the results section. documented in this encounter Results SARS Coronavirus-2 RNA, V Asymptomatic (10/19/2021 12:57 PM ABORIGINAL COMMUNITY COUNCIL MEMBER) [facility] Method Time Signature SARS-CoV-2 Swab, 10/20/2021 MKTO Specimen Nasopharynx 1:47 AM ABORIGINAL COMMUNITY COUNCIL MEMBER Source SARS CoV-2 Undetected Undetected 10/20/2021 MKTO RNA, TMA 1:47 AM ABORIGINAL COMMUNITY COUNCIL MEMBER Comment: SARS-CoV-2 RNA absent. This result does not rule out COVID-19 in the patient, as the sensitivity of the test depends o n the timing of the specimen collection and the quality of the specim en. Result should be correlated with patient's history and clinical presentat ion. ----ADDITIONAL INFORMATION---- This molecular amplification test was pe rformed using the Aptima SARS-CoV-2 assay ([employer] on the [place] Sys tem under emergency use authorization (EUA) by the U.S. Food and Drug Administ cristian. Fact sheets for this EUA assay can be fo und at the following links: For Healthcare Providers: https://www.fd a.gov/media/610012/download For Patients: https://www.fda.gov/media/ 667205/download Specimen Anatomical Collection Method Collection Time Receive d Time (Source) Location / / Volume Laterality Varies 10/19/2021 12:57 10/19/2021 7:37 (Nasopharynx) PM AB[employer]AL COMM[employer] MEMBER PM ABOR[employer]AL COMM[employer] COUNC[employer] MEMBER Mark Eastman M.D., M.S. LAB MICROBIOLOGY - [facility] ORDERABLES Performing Organization Address City/State/[facility] Code Phon e Number [facility]- [address] [place] [address] [place] [address] [address] documented in this encounter Visit Diagnoses Diagnosis Aneurysm Abdominal Aortic Without Ruptur e (HCC) documented in this encounter Additional Health Concerns Infection Onset Date Last Indicated Resolved Time COVID19 Pending 10/19/2021 10/19/2021 10/20/2021 1:47 AM AB[employer]IG[employer]AL COMM[employer] COUNCIL MEMBER documented as of this encounter
--- OUTSIDE RECORDS SUMMARY | 2022-04-07 09:36 | XMS_ITS | Encounter Summary ---
:[address] 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 [address] [place] [phone] Referral ID Status Reason Start Date Expiration Date Visits Requ ested Visits Authorized [id number] Closed 09/15/2021 09/15/2022 1 1 Encounter Details Date Type Department Care Team Description 09/22/2021 Hospital Encounter Department of Jaren, Aneurysm Abdominal Radiology, [place] Mark Frederick M.D., Aortic [facility], in M.[place]. Rupture (HCC) [place], [address] [place] [address] 200 [facility] [phone] [place], [place] [phone] (Work) [phone] Social History Tobacco Use Types Packs/Day Years [...] do you attend taoist or Never 2018 pentecostal services? Do you [...] Radiology Mark Eastman M.D., M.S. [address] [place] [address] 04/26/2022 Office Visit Otorhinolaryngology Roxanne Lanza APRN, C.N.P. [address] [place] [phone] 04/28/2022 Appointment Radiation Oncology Ursula Aguirre M.D. [address] [place] [phone] documented as of this encounter Procedures Procedure Name Priority Date/Time Associated Comments Diagnosis DX CHEST AP OR PA RAD - Routine 09/22/2021 11:05 Aneurysm Resul ts for this AND LATERAL 2 (most inpatients AM ADVERTISING DISPATCH CLERKS SUPERVISOR Abdominal Aortic proced ure are in VIEWS and all Without Rupture the results outpatients) (HCC) section. documented in this encounter Results DX Chest AP or PA and Lateral 2 Views (09/22/2021 11:05 AM ADVERTISING DISPATCH CLERKS SUPERVISOR) Anatomical Region Laterality Modality Chest, Thoracic RST LOS, Thoracic ARZ LOS, Thoracic N/A Digital Radiography FLA LOS Specimen (Source) Anatomical Collection Method Collection Time Re ceived Time Location / / Volume Laterality 09/22/2021 11:14 AM ADVERTISING DISPATCH CLERKS SUPERVISOR Impressions 09/22/2021 11:36 AM ADVERTISING DISPATCH CLERKS SUPERVISOR Comparison PET/CT 06/12/2020. Prominent ascending aorta. Calcified tortuous aorta. Coronary calcification. Chest otherwise negative. Narrative 09/22/2021 11:36 AM ADVERTISING DISPATCH CLERKS SUPERVISOR EXAM: ??DX CHEST AP OR PA AND [...]
--- OUTSIDE RECORDS SUMMARY | 2022-04-07 09:36 | XMS_ITS | Encounter Summary ---
:1955 Author Organization [facility] Address [address] [place] [address] Care Team Providers Name Role Phone Unavailable Primary Care Provider Unavailable Encounter Details Date Type Department Care Team Description 09/15/2021 Hospital Encounter Department of Ursula Aguirre [facility]neur [facility] Thoracic Laboratory Medicine Kimberley Bacon Aortic Without and Pathology, [address] [place] [address] Rupture (HCC) [facility] in [place] [phone] [place] [phone] 200 [facility] (Work) [place], [place] [phone] (Fax) [phone] Social History Tobacco Use Types Packs/Day Years [...] do you attend episcopal or Never 2018 mandaen services? Do you [...] Radiology Mark Eastman M.D., M.S. [address] [place] [phone] 04/26/2022 Office Visit Otorhinolaryngology Roxanne Lanza APRN, C.N.P. [address] [place] [phone] 04/28/2022 Appointment Radiation Oncology Ursula Aguirre M.D. [address] [place] [phone] documented as of this encounter Procedures Procedure Name Priority Date/Time Associated Comments Diagnosis CREATININE WITH Routine 09/15/2021 9:46 AM Aneurysm Thoracic R esults for this EGFR, S/P SINGER BACK TENDER Aortic Without procedure are in Rupture (HCC) the results section. documented in this encounter Results (ABNORMAL) Creatinine with Estimated GFR (09/15/2021 9:46 AM SINGER BACK TENDER) [facility] Time Signature Creatinine 1.20 (H) 0.59 - 09/15/2021 DTL 1.04 mg/dL 10:48 AM SINGER BACK TENDER eGFR-Non 48 (L) >=60 09/15/2021 DTL Black/ mL/min/BSA 10:48 AM SINGER BACK TENDER [place] Comment: ----ADDITIONAL INFORMATION---- Estimated GFR calculated using the 2009 CKD_EPI creatinine equation. eGFR-Black/ 55 (L) >=60 mL/min/BSA 2021 10:48 AM SINGER BACK TENDER DTL Comment: ----ADDITIONAL INFORMATION---- Estimated GFR calculated using the 2009 CKD_EPI creatinine equation. Specimen Anatomical Collection Method Collection Time Receive d Time (Source) Location / / Volume Laterality Blood (Blood, 09/15/2021 9:46 AM 09/15/19 22 Venous) SINGER BACK TENDER 10:30 AM SINGER BACK TENDER Ursula Aguirre M.D. LAB BLOOD ADD-ON Performing Organization Address City/State/ZIP Code Phon e Number [facility] - 200 [place], [place] [address] [facility] [place] [address] [facility] 200 [facility] documented in this encounter Visit Diagnoses Diagnosis Aneurysm Thoracic Aortic Without Rupture (HCC) documented in this encounter
--- OUTSIDE RECORDS SUMMARY | 2022-04-07 09:36 | XMS_ITS | Encounter Summary ---
:1955 Author Organization [facility] Address [address] [place] [address] Care Team Providers Name Role Phone Unavailable Primary Care Provider Unavailable Reason for Referral MRI/CAT/PET Scan (Routine) - Authorized Specialty Diagnoses / Procedures Referred By Contact Refer red To Contact Radiology Diagnoses Malignant Neoplasm Of Supraglottic (HCC) Roxanne Lanza, [facility] Procedures CT Neck Soft Tissue with IV Contrast RISK MANAGEMENT SPECIALIST, C.N.P. [address] [place] [phone] Referral ID Status Reason Start Date Expiration Date Visits V isits Requested Authorized [id number] Authorized 10/16/2021 10/16/2022 1 1 utpatient (Routine) - Authorized Specialty Diagnoses / Procedures Referred By Contact Refer red To Contact Otorhinolaryngology Roxanne Lanza [facility] Toño CONDE, C.N.P. [address] [place] [phone] Referral ID Status Reason Start Date Expiration Date Visits V isits Requested Authorized [id number] Authorized 10/16/2021 10/16/2022 1 1 Y TECHNOLOGIST Reason for Visit Outpatient (Routine) - Closed Specialty Diagnoses / Procedures Referred By Contact Refer red To Contact Otorhinolaryngology Roxanne Lanza [facility] RISK MANAGEMENT SPECIALIST, C.N.P. [address] [place] [phone] Referral ID Status Reason Start Date Expiration Date Visits Requ ested Visits Authorized [id number] Closed 09/16/2021 09/16/2022 1 1 Encounter Details Date Type Department Care Team Description 10/16/2021 Office Visit Department of Ziebarth, Malignant Neop lasm O[place]hinolaryngology in [facility] [place] RISK MANAGEMENT SPECIALIST, C.N.P. ([facility]) (Primary Dx) [address] [facility] [address] [place] [address] [place], [place] [phone] Social History Tobacco Use Types Packs/Day Years [...] do you attend mormon or Never 2018 yarsani services? Do you [...] and TM's normal, scant cerumen bilaterally Nose: [place] and moist Oral Cavity: [place] and moist. Mucous membranes intact. Edentulous. Upper [...] plan; patient expressed understanding of the content. Y TECHNOLOGIST documented in this encounter Plan of Treatment Upcoming Encounters Date Type Specialty Care Team Description 04/22/2022 Clinical Admitting/Central Communication Scheduling 04/26/2022 Appointment Radiology Mark Eastman M.D., M.S. [address] [place] [phone] 04/26/2022 Office Visit Otorhinolaryngology Roxanne Lanza APRN, C.N.P. [address] [place] [phone] 04/28/2022 Appointment Radiation Oncology Ursula Aguirre M.D. [address] [place] [phone] Scheduled Orders Name Type Priority Associated Diagnoses [...]
--- OUTSIDE RECORDS SUMMARY | 2022-04-07 09:37 | XMS_ITS | Encounter Summary ---
:1955 Author Organization [facility] Address [address] [place] [address] Care Team Providers Name Role Phone Unavailable Primary Care Provider Unavailable Encounter Details Date Type Department Care Team Description 03/03/2020 Hospital Encounter Department of Summer Pérez Maligna nt Neoplasm Of Laboratory Medicine P.Marilou., M.S . Supraglottic (HCC) in [place], [address] [place] [address] 300 [facility] [phone] [place], [place] [phone] (Work) [phone] Social History Tobacco Use Types Packs/Day Years [...] do you attend yazidi or Never 2018 anabaptist services? Do you [...] Radiology Mark Eastman M.D., M.S. [address] [place] [phone] 04/26/2022 Office Visit Otorhinolaryngology Roxanne Lanza APRN, C.N.P. [address] [place] [phone] 04/28/2022 Appointment Radiation Oncology Ursula Aguirre M.D. [address] [place] [phone] documented as of this encounter Procedures Procedure [...] supplements. ??If the result does not [facility] clinical observations, repeat testing after patient refrains fr om the use of supplements for at least 12 hours. Specimen Anatomical Collection Method Collection Time Receive d Time (Source) Location / / Volume Laterality Blood (Blood, 03/03/2020 10:37 03/03/2020 1:16 Venous) AM CDT PM CDT Summer Pérez P.A.-C., M.S. LAB BLOOD ADD-ON Performing Organization Address City/State/ZIP Code Phon e Number [facility]- [address] [place] [address] [facility] [address] System in [place] [address] documented in this encounter Visit Diagnoses Diagnosis Malignant Neoplasm Of Supraglottic (HCC) documented in this encounter
--- OUTSIDE RECORDS SUMMARY | 2022-04-07 09:37 | XMS_ITS | Encounter Summary ---
:1955 Author Organization [facility] Address [address] [place] [address] Care Team Providers Name Role Phone Unavailable Primary Care Provider Unavailable Reason for Referral Outpatient (Routine) - Closed Specialty Diagnoses / Procedures Referred By Contact Refer red To Contact Diagnoses Malignant Neoplasm Of Supraglottic (HCC) Summer Pérez P.A.-C., [place] [facility] Procedures [place] Swallow Function with Video and Speech or OT M.S. [address] [place] [address] [phone] Referral ID Status Reason Start Date Expiration Date Visits Requ ested Visits Authorized [id number] Closed 10/15/2019 10/14/2020 1 1 Reason for Visit Outpatient (Routine) - Closed Specialty Diagnoses / Procedures Referred By Contact Refer red To Contact Diagnoses Malignant Neoplasm Of Supraglottic (HCC) Summer Pérez P.A.-C. [place] [facility] Procedures [place] Swallow Function with Video and Speech or OT M.S. [address] [place] [phone] Referral ID Status Reason Start Date Expiration Date Visits Requ ested Visits Authorized [id number] Closed 10/15/2019 10/14/2020 1 1 Encounter Details Date Type Department Care Team Description 01/31/2020 Hospital Encounter Department of Summer Pérez P.A.-C., M.S. [address] [place] [phone] Malignant Neoplasm Of Radiology, Jefferson Parvin Mijares M.S., CCC-DIGITAL CONTENT MARKETING MANAGER [address] [place] [phone] Supraglottic (HCC) Building, in [place], [place] [address] [place] [phone] Social History Tobacco Use Types Packs/Day Years [...] do you attend taoism or Never 2018 congregational services? Do you [...] M.D., M.S. [address] [place] [phone] 04/26/2022 Office Visit Otorhinolaryngology Roxanne Lanza APRN, C.N.P. [address] [place] [phone] 04/28/2022 Appointment Radiation Oncology Ursula Aguirre M.D. [address] [place] [phone] documented as of this encounter Procedures Procedure [...]
--- OUTSIDE RECORDS SUMMARY | 2022-04-07 09:37 | XMS_ITS | Encounter Summary ---
:1955 Author Organization [facility] Address [address] [place] [address] Care Team Providers Name Role Phone Unavailable Primary Care Provider Unavailable Reason for Referral MRI/CAT/PET Scan (Routine) - Closed Specialty Diagnoses / Procedures Referred By Contact Refer red To Contact Radiology Diagnoses Aneurysm Thoracic Aortic Without Rupture (HCC) Ursula Aguirre M.D. [facility] Procedures CT Abdomen Pelvis Angiogram with IV Contrast 200 [place] [phone] Referral ID Status Reason Start Date Expiration Date Visits Requ ested Visits Authorized [id number] Closed 06/26/2020 09/15/2021 1 1 HOL AND DRUG COUNSELOR Outpatient (Routine) - Closed Specialty Diagnoses / Procedures Referred By Contact Refer red To Contact Vascular Medicine Diagnoses Aneurysm Thoracic Aortic Without Rupture (HCC) Ursula [facility] Toño Chu 200 [place] [address] Referral ID Status Reason Start Date Expiration Date Visits Requ ested Visits Authorized [id number] Closed 06/26/2020 06/26/2021 1 1 Scheduling Instructions patient previously seen by Kristi 2019 HOL AND DRUG COUNSELOR Outpatient (Routine) - Closed Specialty Diagnoses / Procedures Referred By Contact Refer red To Contact Radiation Oncology Summer Pérez P.A.-C., [facility] M.S. [address] [place] [phone] Referral ID Status Reason Start Date Expiration Date Visits Requ ested Visits Authorized [id number] Closed 03/14/2020 03/14/2021 1 1 Scheduling Instructions PET/CT and appointment with Dr. Aimee gonzalez in [place] HOL AND DRUG COUNSELOR Reason for Visit Outpatient (Routine) - Closed Specialty Diagnoses / Procedures Referred By Contact Refer red To Contact Radiation Oncology Summer Pérez P.A.-C., [facility] M.S. 200 [place] [phone] Referral ID Status Reason Start Date Expiration Date Visits Requ ested Visits Authorized [id number] Closed 03/14/2020 03/14/2021 1 1 Encounter Details Date Type Department Care Team Description 06/26/2020 Hospital Encounter Department of Ursula Aguirre Aneur [facility] Thoracic Radiation Oncology Kimberley Bacon Aortic Without in [place], [facility] [address] [facility] Rupture (HCC) [place], [place] (Primary Dx) [address] [facility] [address] [place], [place] [phone] (Work) [phone] Social History Tobacco Use Types Packs/Day Years [...] do you attend quaker or Never 2018 druze services? Do you [...] follow-up. She was seen and examined in [place] in late May. ?? Her??oncologic history is as follows: 1. November 2018: ??The patient noted throat pain with swallowing along with intermittent ear pain,??managed with Tylenol. 2. February 2019: ??The patient experienced progressively worsening throat pain,??odynophagia, 10 pound??unintentional weight loss, hoarseness over the past few weeks,??and difficulty sleeping due to increased secretion. 3. February 08, 2019: ??Appointment with Dr. Darryl Grayson???[facility] at [facility]. ??Physical examination with flexible laryngoscopy [...] will be referred to Radiation Oncology in [place]. 8. March 13, 2019: ??Follow-up appointment with Dr. Arrieta and Dr. Mabry who discussed treatment options including total laryngectomy versus radiation therapy. ??They were not able to offer partial laryngectomy given her lung disease and possible aspiration. ?? 9. March 15, 2019: ??Phone call with Dr. aTpia with the patient's rzemenam-bb-ovx reported that the patient had decided to undergo radiation treatment in [place]. ??She will have a follow-up abdominal MRI at [place]. ??The patient will follow-up with her primary [...] by: Ursula Aguirre M.D. 06/26/2020 4:39 PM ALCOHOL AND DRUG COUNSELOR Radiation Oncology [facility] [address] [place] [address] HOL AND DRUG COUNSELOR documented in this encounter Plan of Treatment Upcoming Encounters Date Type Specialty Care Team Description 04/22/2022 Clinical Admitting/Central Communication Scheduling 04/26/2022 Appointment Radiology Mark Eastman M.D., M.S. [address] [place] [phone] 04/26/2022 Office Visit Otorhinolaryngology Roxanne Lanza APRN, C.N.P. [address] [place] [phone] 04/28/2022 Appointment Radiation Oncology Ursula Aguirre M.D. [address] [place] [phone] Scheduled Referrals Name Type Priority Associated Order [...] Angiogram with IV Contrast (09/15/2021 11:44 AM ALCOHOL AND DRUG COUNSELOR) Anatomical Region Laterality Modality Abdomen, Pelvis, Cardiovascular RST N/A Comp uted Tomography, Computed LOS, Abdominal ARZ LOS, Vascular Tomogra phy Interventional ARZ LOS, Abdominal FLA LOS, Vascular Interventional FLA LOS Specimen (Source) Anatomical Collection Method Collection Time Re ceived Time Location / / Volume Laterality 09/15/2021 11:25 AM ALCOHOL AND DRUG COUNSELOR Impressions 09/15/2021 1:06 PM ALCOHOL AND DRUG COUNSELOR Enlarging infrarenal abdominal aortic aneurysm measuring 56 x 57 mm in maximum orthogonal dimension (previou sly 49 x 51 mm in 03/20/2019). Narrative 09/15/2021 1:06 PM ALCOHOL AND DRUG COUNSELOR EXAM: ??CT ABDOMEN PELVIS ANGIOGRAM WITH IV [...] Creatinine with Estimated GFR (09/15/2021 9:46 AM ALCOHOL AND DRUG COUNSELOR) Analysis Performed At [facility] Time Signature Creatinine 1.20 (H) 0.59 - 09/15/2021 DTL 1.04 mg/dL 10:48 AM ALCOHOL AND DRUG COUNSELOR eGFR-Non 48 (L) >=60 09/15/2021 DTL Black/ mL/min/BSA 10:48 AM ALCOHOL AND DRUG COUNSELOR [place]an Comment: ----ADDITIONAL INFORMATION---- Estimated GFR calculated using the 2009 CKD_EPI creatinine equation. eGFR-Black/ 55 (L) >=60 mL/min/BSA 2021 10:48 AM ALCOHOL AND DRUG COUNSELOR DTL Comment: ----ADDITIONAL INFORMATION---- Estimated GFR calculated using the 2009 CKD_EPI creatinine equation. Specimen Anatomical Collection Method Collection Time Receive d Time (Source) Location / / Volume Laterality Blood (Blood, 09/15/2021 9:46 AM 09/15/19 22 Venous) ALCOHOL AND DRUG COUNSELOR 10:30 AM ALCOHOL AND DRUG COUNSELOR Ursula Aguirre M.D. LAB BLOOD ADD-ON Performing Organization Address City/State/ZIP Code Phon e Number [facility] - [address] [place], [place] [address] [facility] [place] [address] [facility] [address] documented in this encounter Visit Diagnoses Diagnosis Aneurysm Thoracic Aortic Without Rupture (HCC) - Primary Aneurysm Thoracic Aortic Without Rupture (HCC) documented in this encounter
--- OUTSIDE RECORDS SUMMARY | 2022-04-07 09:37 | XMS_ITS | Encounter Summary ---
:1955 Author Organization [facility] Address [address] [place] [address] Care Team Providers Name Role Phone Unavailable Primary Care Provider Unavailable Reason for Referral Outpatient (Routine) - Canceled Specialty Diagnoses / Procedures Referred By Contact Refer red To Contact Nutrition Diagnoses Malignant Neoplasm Of Supraglottic (HCC) Ursula Aguirre M.D. [address] [phone] Referral ID Status Reason Start Date Expiration Date Visits V isits Requested Authorized [id number] Canceled 08/30/2019 08/29/2020 1 1 Reason for Visit Outpatient (Routine) - Canceled Specialty Diagnoses / Procedures Referred By Contact Refer red To Contact Nutrition Diagnoses Malignant Neoplasm Of Supraglottic (HCC) Ursula Aguirre M.D. [facility] Region [address] [place] [phone] Referral ID Status Reason Start Date Expiration Date Visits V isits Requested Authorized [id number] Canceled 08/30/2019 08/29/2020 1 1 Encounter Details Date Type Department Care Team Description 11/29/2019 Hospital Encounter Department of Mary Aguirre M.D. [address] [place] [phone] Malignant Neoplasm Radiation Oncology Natasha Brandon, RDN [address] [place] [phone] Of Supraglottic in [place], ([facility]) [place] [address] [facility] [place] [phone] Social History Tobacco Use Types Packs/Day Years [...] do you attend adventist or Never 2018 orthodox services? Do you [...] April,. ?? Met with patient and her mlcynlsy-il-xmn via telephone. Patient is hard of hearing and reads lips. For phone contact Merlin (son) states, his Darlin is the one to call, . ?? ASSESSMENT Relevant Social and Family History She lives in [place], [place] with her son Merlin and his Darlin. During the week while undergoing treatment lives in [place] with a different son. She is . She has 4 sons, 10 grand children and 2 great grandchildren. 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 She has a 41 [...] GI 04/17/19 and replaced 11/02/19 LEONARDO 20 Luxembourgish balloon gastrostomy, ENFit connector ?? Food/Nutrient Related [...] Radiology Mark Eastman M.D., M.S. [address] [place] [phone] 04/26/2022 Office Visit Otorhinolaryngology Roxanne Lanza, WORKPLACE RELATIONS ADVISER, C.N.P. [address] [place] [phone] 04/28/2022 Appointment Radiation Oncology Ursula Aguirre M.D. [address] [place] [phone] Scheduled Referrals Name Type Priority Associated Diagnoses Order S chedule Nutrition - Outpatient Referral Routine Malignant Neoplasm On ce for 1 Medical nutrition Of Supraglottic Occurre nces therapy consult (HCC) starting (clinic) until 0 documented as of this encounter Visit Diagnoses Diagnosis Malignant Neoplasm Of Supraglottic (HCC) documented in this encounter
--- OUTSIDE RECORDS SUMMARY | 2022-04-07 09:37 | XMS_ITS | Encounter Summary ---
:1955 Author Organization [facility] Address [address] [place] [address] Care Team Providers Name Role Phone Unavailable Primary Care Provider Unavailable Encounter Details Date Type Department Care Team Description 12/09/2020 Orders Only [facility] Sa kate Fountain M.D. [address] [place], [place] [phone] (Wo rk) Social History [...] do you attend mosque or Never 2018 tenriism services? Do you [...] Radiology Mark Eastman M.D., M.S. [address] [place] [phone] 04/26/2022 Office Visit Otorhinolaryngology Roxanne Lanza APRN, C.N.P. [address] [place] [phone] 04/28/2022 Appointment Radiation Oncology Ursula Aguirre M.D. 200 [place] [phone] documented as of this encounter Visit Diagnoses Not on filedocumented in this encounter
--- OUTSIDE RECORDS SUMMARY | 2022-04-07 09:37 | XMS_ITS | Encounter Summary ---
:1955 Author Organization [facility] Address [address] [place] [address] Care Team Providers Name Role Phone Unavailable [...] do you attend muslim or Never 2018 zoroastrianism services? Do you [...] Appointment Radiology Mark Eastman M.D., M.S. 200 [place] [phone] 04/26/2022 Office Visit Otorhinolaryngology Roxanne Lanza APRN, C.N.P. [address] [place] [phone] 04/28/2022 Appointment Radiation Oncology Ursula Aguirre M.D. [address] [place] [phone] documented as of this encounter Procedures Procedure [...]
--- OUTSIDE RECORDS SUMMARY | 2022-04-07 09:37 | XMS_ITS | Encounter Summary ---
:1955 Author Organization [facility] Address [address] [place] [address] Care Team Providers Name Role Phone Unavailable Primary Care Provider Unavailable Encounter Details Date Type Department Care Team Description 06/10/2020 Hospital Encounter Department of Summer Pérez [place] For Laboratory Medicine PMassiel, M.S . Screening For Other in [address] Viral Diseases [place], [place] (COVID-19) [address] [address] [place], [place] [phone] (Work) [phone] Social History Tobacco Use Types Packs/Day Years [...] do you attend pentecostalism or Never 2018 buddhist services? Do you [...] to pay for the very basics like [facility] hat hard 02/21/2019 food, housing, medical care, [...] Radiology Mark Eastman M.D., M.S. [address] [place] [phone] 04/26/2022 Office Visit Otorhinolaryngology Roxanne Lanza, OSCILLOGRAPH TECHNICIAN, C.N.P. [address] [place] [phone] 04/28/2022 Appointment Radiation Oncology Ursula Aguirre M.D. [address] [place] [phone] documented as of this encounter Procedures Procedure Name Priority Date/Time Associated Diagnosis Comme nts SARS CORONAVIRUS-2 Routine 06/10/2020 11:50 AM Encounter For R esults for this RNA, V CDT Screening For Other procedur e are in Viral Diseases the results (COVID-19) section. documented in this encounter Results SARS Coronavirus-2 RNA, V Asymptomatic (06/10/2020 11:50 AM CDT) [facility] Method Time Signature SARS-CoV-2 Swab, [...] is performed using the Aptima SARS-CoV-2 assay ([employer] which has received Emergency Use Authori zation (EUA) by the U.S. Food and Drug Administration. Fact sheets for this Emergency Use Autho rization (EUA) assay can be found at the following links: For Healthcare Providers: https://www.Appsperse a.gov/media/253913/download For Patients: https://www.fda.gov/media/ 054322/download Specimen Anatomical Collection Method Collection Time Receive d Time (Source) Location / / Volume Laterality Varies 06/10/2020 11:50 06/10/2020 2:54 (Nasopharynx) AM CDT PM CDT Summer Pérez P.A.-C., M.S. LAB MICROBIOLOGY - GENERAL O RDERABLES Performing Organization Address City/State/ZIP Code Phon e Number [facility]- [address] [place] [address] [place] [address] System in [address] documented in this encounter Visit Diagnoses Diagnosis Encounter For Screening For Other Viral Diseases (COVID-19) documented in this encounter Additional Health Concerns Infection Onset Date Last Indicated Resolved Time COVID19 Pending 06/10/2020 06/10/2020 06/10/2020 8:15 PM CDT documented as of this encounter
--- OUTSIDE RECORDS SUMMARY | 2022-04-07 09:37 | XMS_ITS | Encounter Summary ---
:1955 Author Organization [facility] Address [address] [place] [address] Care Team Providers Name Role Phone Unavailable Primary Care Provider Unavailable Reason for Visit Reason Comments Feeding Tube Encounter Details Date Type Department Care Team Description 02/26/2020 Clinical Support Division of Summer Pérez P .A.-C., M.S. [address] [place] [address] [phone] Gastrostomy Status (HCC) (Primary Dx); Endocrinology in Chio Whitaker, R.N. [address] [place] [address] [phone] Malignant Neoplasm Of Supraglottic (HCC) [employer] [place], [place] [address] [place] [phone] Social History Tobacco Use Types Packs/Day Years [...] do you attend shinto or Never 2018 zoroastrianism services? Do you [...] been meet? Yes Enter brand of tube: PiniOn Enter size of tube: 20 Enter number of mls removed: 3.5 Was there difficulty in deflating the balloon: No Was there difficulty removing the tube: No Site assessment: scant dried mucous drainage, circumferential granulation tissue measuring approximately 6 mm, mild erythema around granulation tissue, treated with two silver nitrate sticks per protocol PLAN Return appointment with [facility] Nurse: As needed *[id number] reviewed and given to patient. *Gauze and tape provided for patient documented in this encounter Plan of Treatment Upcoming Encounters Date Type Specialty Care Team Description 04/22/2022 Clinical Admitting/Central Communication Scheduling 04/26/2022 Appointment Radiology Mark Eastman M.D., M.S. [address] [place] [phone] 04/26/2022 Office Visit Otorhinolaryngology Roxanne Lanza APRN, C.N.P. [address] [place] [phone] 04/28/2022 Appointment Radiation Oncology Ursula Aguirre M.D. [address] [place] [phone] documented as of this encounter Visit Diagnoses [...]
--- OUTSIDE RECORDS SUMMARY | 2022-04-07 09:37 | XMS_ITS | Encounter Summary ---
:1955 Author Organization [facility] Address [address] [place] [address] Care Team Providers Name Role Phone Unavailable Primary Care Provider Unavailable Reason for Visit Outpatient (Routine) - Closed Specialty Diagnoses / Procedures Referred By Contact Refer red To Contact Otorhinolaryngology Summer Pérez Kasperbauer, Jan L, P.A.-C., M.S. M.DShital [address] [place] [address] 200 [place] [phone] Referral ID Status Reason Start Date Expiration Date Visits Requ ested Visits Authorized [id number] Closed 03/14/2020 03/14/2021 1 1 Encounter Details Date Type Department Care Team Description 06/12/2020 Office Visit Department of Raghavendra, Bettie Neop lasm Of Supraglottic (HCC) (Primary Dx); Otorhinolaryngology in Hung Serna M.D. [address] [phone] Social History Tobacco Use Types Packs/Day [...] do you attend holiness or Never 2018 episcopal services? Do you [...] female who presents to clinic with her xdqxsaxl-ks-xea for follow-up on the above-stated oncologic history [...] week Gets together: Once a week Attends episcopal service: Never Active member of club or [...] no cerumen or middle ear effusion Nose: [place] and moist Oral Cavity: [place] and dry. Mucous membranes intact. Edentulous. Floor [...] I will call the patient and her mmfqjxyy-ng-wni with results of the PET scan when they are available. They verbalized understanding. They should be seen again in 3-4 months for continued surveillance related to the history of a T2 supraglottic laryngeal squamous cell carcinoma. Addendum: I called the patient's zgeqikvn-if-hic and explained that the radiologist thought the [...] Radiology Mark Eastman M.D., M.S. [address] [place] [phone] 04/26/2022 Office Visit Otorhinolaryngology Roxanne Lanza APRN, C.N.P. [address] [place] [address] [phone] 04/28/2022 Appointment Radiation Oncology Ursula Aguirre M.D. 200 [place] [phone] documented as of this encounter Visit Diagnoses Diagnosis Malignant Neoplasm Of Supraglottic (HCC) - Primary Dysphonia documented in this encounter
--- OUTSIDE RECORDS SUMMARY | 2022-04-07 09:37 | XMS_ITS | Encounter Summary ---
:1955 Author Organization [facility] Address [address] [place] [address] Care Team Providers Name Role Phone Unavailable Primary Care Provider Unavailable Reason for Referral Outpatient (Routine) - Canceled Specialty Diagnoses / Procedures Referred By Contact Refer red To Contact Nutrition Diagnoses Malignant Neoplasm Of Supraglottic (HCC) Ursula Aguirre M.D. [address] [phone] Referral ID Status Reason Start Date Expiration Date Visits V isits Requested Authorized [id number] Canceled 08/30/2019 08/29/2020 1 1 Reason for Visit Outpatient (Routine) - Canceled Specialty Diagnoses / Procedures Referred By Contact Refer red To Contact Nutrition Diagnoses Malignant Neoplasm Of Supraglottic (HCC) Ursula Aguirre M.D. [facility] [address] [place] [phone] Referral ID Status Reason Start Date Expiration Date Visits V isits Requested Authorized [id number] Canceled 08/30/2019 08/29/2020 1 1 Encounter Details Date Type Department Care Team Description 02/07/2020 Hospital Encounter Department of Mary Aguirre M.D. [address] [place] [phone] Malignant Neoplasm Radiation Oncology Natasha Brandon, RDN 1821 [facility] [place] [phone] Of Supraglottic in [place], ([facility]) [place] 1821 [facility] [place] [phone] Social History Tobacco Use Types Packs/Day Years [...] do you attend uatsdin or Never 2018 advent services? Do you [...] mg tablet potassium chloride Daily 0 04/21/20182021 (ANSIH Mendez/KEMAL) 20 mEq ER tablet documented as [...] Social and Family History?? She lives in [place], [place] with her son Merlin and his Darlin. During the week while undergoing treatment lives in [place] with a different son. She is . She has 4 sons, 10 grand children and 2 great grandchildren. 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 She has a 40 [...] GI 04/17/19 and replaced 11/02/19 LEONARDO 20 Bahamian balloon gastrostomy, ENFit connector ?? Food/Nutrient Related [...] a sandwich or soup with chips or Bahamian fries and water or tea. Supper is [...] ?? INTERVENTION Discussed balancing meals using the [employer] My Plate. Also discussed listening to hunger [...] Radiology Mark Eastman M.D., M.S. [address] [place] [address] [phone] 04/26/2022 Office Visit Otorhinolaryngology Roxanne Lanza APRN, C.N.P. [address] [place] [address] [phone] 04/28/2022 Appointment Radiation Oncology Ursula Aguirre M.D. [address] [place] [address] [phone] Scheduled Referrals Name Type Priority Associated Diagnoses Order S chedule Nutrition - Outpatient Referral Routine Malignant Neoplasm On ce for 1 Medical nutrition Of Supraglottic Occurre nces therapy consult (HCC) starting (clinic) until 0 documented as of this encounter Visit Diagnoses Diagnosis Malignant Neoplasm Of Supraglottic (HCC) documented in this encounter
--- OUTSIDE RECORDS SUMMARY | 2022-04-07 09:37 | XMS_ITS | Encounter Summary ---
:1955 Author Organization [facility] Address [address] [place] [address] Care Team Providers Name Role Phone Unavailable Primary Care Provider Unavailable Reason for Referral Outpatient (Routine) - Closed Specialty Diagnoses / Procedures Referred By Contact Refer red To Contact Endocrinology Diagnoses Malignant Neoplasm Of Supraglottic (HCC) Summer [facility].-[facility] [address] [place] [phone] Referral ID Status Reason Start Date Expiration Date Visits Requ ested Visits Authorized [id number] Closed 02/11/2020 02/10/2021 1 1 Specialty Diagnoses / Procedures Referred By Contact Refer red To Contact Summer Pérez P.A.-C ., M.S. [facility] [address] [place] [phone] Referral ID Status Reason Start Date Expiration Date Visits Requ ested Visits Authorized Encounter Details Date Type Department Care Team Description 02/11/2020 Orders Only Department of Summer Pérez, Malignant Joao plasm Of Radiation Oncology in PMassiel, M .S. Supraglottic (HCC) [facility] [address] [place] [address] (Primary Dx) 1821 [place] [phone] Social History Tobacco Use Types Packs/Day Years [...] Radiology Mark Eastman M.D., M.S. [address] [place] [phone] 04/26/2022 Office Visit Otorhinolaryngology Roxanne Lanza APRN, C.N.P. [address] [place] [phone] 04/28/2022 Appointment Radiation Oncology Ursula Aguirre M.D. [address] [place] [phone] Scheduled Referrals Name Type Priority Associated Diagnoses [...]
--- OUTSIDE RECORDS SUMMARY | 2022-04-07 09:37 | XMS_ITS | Encounter Summary ---
:1955 Author Organization [facility] Address [address] [place] [address] Care Team Providers Name Role Phone Unavailable [...] do you attend anglican or Never 2018 adventism services? Do you [...] Appointment Radiology Mark Eastman M.D., M.S. 200 [place] [phone] 04/26/2022 Office Visit Otorhinolaryngology Roxanne Lanza APRN, C.N.P. [address] [place] [address] [phone] 04/28/2022 Appointment Radiation Oncology Ursula Aguirre M.D. [address] [place] [phone] documented as of this encounter Procedures Procedure [...]
--- OUTSIDE RECORDS SUMMARY | 2022-04-07 09:37 | XMS_ITS | Encounter Summary ---
:1955 Author Organization [facility] Address [address] [place] [address] Care Team Providers Name Role Phone Unavailable Primary Care Provider Unavailable Reason for Visit Reason Onset Date Comments COVID Inquiry 02/25/2020 Encounter Details Date Type Department Care Team Description 02/25/2020 Clinical Communication Division of Tramaine Deras COVID Inquiry Internal Medicine in A, AMAYA, C.N.P., [facility]. [address] [place] [address] [address] [place] [phone] Social History Tobacco Use Types Packs/Day Years [...] you attend oriental orthodox or Never 2018 baptist services? Do you [...] to pay for the very basics like [employer] hat hard 02/21/2019 food, housing, medical care, [...] - 02/25/2020 11:18 AM CDT ([facility] and [facility] locations only: If the patient is not having symptoms and is requesting COVID-19 Nasal Swab testing only, use the process listed in the COVID-19 Patient Requesting COVID PCR Test OTG COVID-19 [place] Patient Requesting COVID PCR Test). 1. Do [...] Radiology Mark Eastman M.D., M.S. [address] [place] [phone] 04/26/2022 Office Visit Otorhinolaryngology Roxanne Lanza, EXPORT CLERK, C.N.P. [address] [place] [phone] 04/28/2022 Appointment Radiation Oncology Ursula Aguirre M.D. [address] [place] [phone] documented as of this encounter Visit Diagnoses Not on filedocumented in this encounter
--- OUTSIDE RECORDS SUMMARY | 2022-04-07 09:37 | XMS_ITS | Encounter Summary ---
:1955 Author Organization [facility] Address [address] [place] [address] Care Team Providers Name Role Phone Unavailable Primary Care Provider Unavailable Reason for Visit Reason Comments Appointment Encounter Details Date Type Department Care Team Description 02/12/2020 Documentation Division of Endocrinology in [place], Appointment [place], [place] M.A.N., R.N. [address] [facility] [address] [place] [phone] [place], [place] [phone] Social History Tobacco Use Types Packs/Day Years [...] do you attend adventist or Never 2018 christian services? Do you [...] Radiology Mark Eastman M.D., M.S. [address] [place] [phone] 04/26/2022 Office Visit Otorhinolaryngology Roxanne Lanza APRN, C.N.P. [address] [place] [phone] 04/28/2022 Appointment Radiation Oncology Ursula Aguirre M.D. [address] [place] [phone] documented as of this encounter Visit Diagnoses Not on filedocumented in this encounter
--- OUTSIDE RECORDS SUMMARY | 2022-04-07 09:37 | XMS_ITS | Encounter Summary ---
:1955 Author Organization [facility] Address [address] [place] [address] Care Team Providers Name Role Phone Unavailable Primary Care Provider Unavailable Encounter Details Date Type Department Care Team Description 01/30/2020 Clinical Communication Department of Ursula Aguirre Radiation Oncology Kimberley Kaur [place] [address] [facility] 1821 [place] [address] [phone] Social History Tobacco Use Types Packs/Day Years [...] do you attend confucianist or Never 2018 anabaptist services? Do you [...] keeps falling out. She called GI in [place], and they told her to go to the ED. Darlin really doesn't want to have to take her to the ED and finds that unnecessary. The patient has appointments in [place] tomorrow so she would like help getting the patient set up to see someone in [place] tomorrow. However, Darlin also states that Obdulia wants the feeding tube removed permanently. She would appreciate a call back to discuss all of this. Phone number: [phone] Is it okay to leave a voicemail on answering machine with test results? No Pharmacy (if medication related): N/A Ayla Orellana documented in this encounter Plan of Treatment Upcoming Encounters Date Type Specialty Care Team Description 04/22/2022 Clinical Admitting/Central Communication Scheduling 04/26/2022 Appointment Radiology Mark Eastman M.D., M.S. [address] [place] [phone] 04/26/2022 Office Visit Otorhinolaryngology Roxanne Lanza APRN, C.N.P. [address] [place] [address] [phone] 04/28/2022 Appointment Radiation Oncology Ursula Aguirre M.D. [address] [place] [phone] documented as of this encounter Visit Diagnoses Not on filedocumented in this encounter
--- OUTSIDE RECORDS SUMMARY | 2022-04-07 09:37 | XMS_ITS | Encounter Summary ---
:1955 Author Organization [facility] Address [address] [place] [address] Care Team Providers Name Role Phone Unavailable Primary Care Provider Unavailable Encounter Details Date Type Department Care Team Description 01/30/2020 Clinical Communication Department of Parvin Mijares Neurology guanakito Crabtree M.S., CCC-POLYSOMNOGRAPHER [place], [place] [address] [facility] [address] [place] [address] [phone] Social History Tobacco Use Types Packs/Day Years [...] do you attend denominational or Never 2018 restorationist services? Do you [...] Radiology Mark Eastman M.D., M.S. [address] [place] [phone] 04/26/2022 Office Visit Otorhinolaryngology Roxanne Lanza, IRON LAUNDER OPERATOR, C.N.P. [address] [place] [phone] 04/28/2022 Appointment Radiation Oncology Ursula Aguirre M.D. [address] [place] [phone] documented as of this encounter Visit Diagnoses Not on filedocumented in this encounter
--- OUTSIDE RECORDS SUMMARY | 2022-04-07 09:37 | XMS_ITS | Encounter Summary ---
:1955 Author Organization [facility] Address [address] [place] [address] Care Team Providers Name Role Phone Unavailable Primary Care Provider Unavailable Reason for Referral Outpatient (Routine) - Closed Specialty Diagnoses / Procedures Referred By Contact Refer red To Contact Endocrinology Padma Vieira APRN, [place] [facility] C.N.PShital, M.S. [address] [place] [phone] Referral ID Status Reason Start Date Expiration Date Visits Requ ested Visits Authorized [id number] Closed 01/30/2020 01/29/2021 1 1 Encounter Details Date Type Department Care Team Description 01/30/2020 Orders Only Division of Endocrinology in [place], [place] R.N. [address] [place] [address] [place] [phone] [place], [place] [phone] Social History Tobacco Use Types Packs/Day Years [...] do you attend baptist or Never 2018 mosque services? Do you belong to any clubs or No 02/21/2019 organizations such as baptist groups, unions, [employer] or athletic groups, or school groups? How [...] Radiology Mark Eastman M.D., M.S. [address] [place] [phone] 04/26/2022 Office Visit Otorhinolaryngology Roxanne Lanza, INFRASTRUCTURE ENGINEER, C.N.P. [address] [place] [phone] 04/28/2022 Appointment Radiation Oncology Ursula Aguirre M.D. [address] [place] [phone] Scheduled Referrals Name Type Priority Associated Order Schedule Diagnoses Endocrinology nurse Outpatient Referral Routine E xpected: visit (clinic) 01/31/2020, Expires: 01/29/2023 documented as of this encounter Visit Diagnoses Not on filedocumented in this encounter
--- OUTSIDE RECORDS SUMMARY | 2022-04-07 09:37 | XMS_ITS | Encounter Summary ---
:[address] [facility] Address [address] [place] [address] Care Team Providers Name Role Phone Unavailable Primary Care Provider Unavailable Reason for Referral Specialty Diagnoses / Procedures Referred By Contact Refer red To Contact Patience Adame M.D. [facility] Region [address] [place] [phone] Referral ID Status Reason Start Date Expiration Date Visits Requ ested Visits Authorized Encounter Details Date Type Department Care Team Description 04/24/2021 Orders Only [facility] Sa kate Adame M.D. [address] [place] [phone] (Wo rk) Social History Tobacco [...] do you attend alevism or Never 2018 evangelical services? Do you [...] Radiology Mark Eastman M.D., M.S. [address] [place] [phone] 04/26/2022 Office Visit Otorhinolaryngology Roxanne Lanza APRN, C.N.P. [address] [place] [phone] 04/28/2022 Appointment Radiation Oncology Ursula Aguirre M.D. [address] [place] [phone] Scheduled Referrals Name Type Priority Associated Order Schedule Diagnoses Covid immunization Outpatient Referral Routine Ex pected: office visit Booster 021 (Approximate), Expires: 04/24/2022 documented as of this encounter Visit Diagnoses Not on filedocumented in this encounter
--- OUTSIDE RECORDS SUMMARY | 2022-04-07 09:37 | XMS_ITS | Encounter Summary ---
:1955 Author Organization [facility] Address [address] [place] [address] Care Team Providers Name Role Phone Unavailable Primary Care Provider Unavailable Encounter Details Date Type Department Care Team Description 03/12/2020 Hospital Encounter Department of Summer Pérez [place] For Laboratory Medicine PMassiel, M.S . Screening For Other in [address] Viral Diseases [place], [place] (COVID-19) [address] [address] [place], [place] [phone] (Work) [phone] Social History Tobacco Use Types Packs/Day Years [...] do you attend bahai or Never 2018 taoist services? Do you [...] to pay for the very basics like [employer] hat hard 02/21/2019 food, housing, medical care, [...] Radiology Mark Eastman M.D., M.S. [address] [place] [phone] 04/26/2022 Office Visit Otorhinolaryngology Roxanne Lanza, ASSISTANT LABORATORY DIRECTOR, C.N.P. [address] [place] [address] [phone] 04/28/2022 Appointment Radiation Oncology Ursula Aguirre M.D. [address] [place] [phone] documented as of this encounter Procedures Procedure [...] RNA, V Asymptomatic (03/12/2020 12:21 PM CDT) [facility] [employer] Method Time Signature SARS-CoV-2 Swab, 03/12/2020 MKTO [...] is performed using the Aptima SARS-CoV-2 assay ([employer] which has received Emergency Use Authori zation (EUA) by the U.S. Food and Drug Administration. Fact sheets for this Emergency Use Autho rization (EUA) assay can be found at the following links: For Healthcare Providers: https://www.CHARGED.fm a.gov/media/090959/download For Patients: https://www.fda.gov/media/ 393618/download Specimen Anatomical Collection Method Collection Time Receive d Time (Source) Location / / Volume Laterality Varies 03/12/2020 12:21 03/12/2020 3:40 (Nasopharynx) PM CDT PM CDT Summer Pérez P.A.-C., M.S. LAB MICROBIOLOGY - GENERAL O RDERABLES Performing Organization Address City/State/ZIP Code Phon e Number [facility]- [address] [place] [address] [place] [address] SARS-CoV-2 Total Antibody, Serum (03/12/2020 11:40 AM CDT) [facility] Method Time Signature SARS-CoV-2 Negative Negative [...] was performed using the [employer] El [employer]ys Carv-TBBV-AvO-2 Reagent assay from [employer], which has received Emergency Use Authori zation(EUA) by the U.S. Food and Drug Administration . Fact sheets for this Emergency Use Autho rization (EUA) assay can be found at the following link s: For Healthcare Providers: https://www.fda.gov/media/727793/downloa d For Patients: https://www.fda.gov/media/490592/downloa d Specimen Anatomical Collection Method Collection Time Receive d Time (Source) Location / / Volume Laterality Blood (Blood, 03/12/2020 11:40 03/12/2020 7:12 Venous) AM CDT PM CDT Summer Pérez P.A.-C., M.S. LAB MICROBIOLOGY - BLOOD ORD [facility] Organization Address City/State/ZIP Code Phon e Number [facility]- [address] [place] [address] [place] [address] [address] documented in this encounter Visit Diagnoses Diagnosis Encounter For Screening For Other Viral Diseases (COVID-19) documented in this encounter Additional Health Concerns Infection Onset Date Last Indicated Resolved Time COVID19 Pending 03/12/2020 03/12/2020 03/12/2020 9:30 PM CDT documented as of this encounter
--- OUTSIDE RECORDS SUMMARY | 2022-04-07 09:37 | XMS_ITS | Encounter Summary ---
:1955 Author Organization [facility] Address [address] [place] [address] Care Team Providers Name Role Phone Unavailable Primary Care Provider Unavailable Reason for Visit Outpatient (Routine) - Closed Specialty Diagnoses / Procedures Referred By Contact Refer red To Contact Endocrinology Diagnoses Malignant Neoplasm Of Supraglottic (HCC) Summer Pérez P.A.-C., [facility] M.S. [address] [place] [phone] Referral ID Status Reason Start Date Expiration Date Visits Requ ested Visits Authorized [id number] Closed 02/11/2020 02/10/2021 1 1 Encounter Details Date Type Department Care Team Description 02/26/2020 Comprehensive Visit Division of Summer Pérez P.A.-C., M.S. [address] [place] [phone] Gastrostomy Status (HCC) (Primary Dx); Endocrinology in Padma Vieira APRN, C.N.P., M.S. [address] [place] [phone] Malignant Neoplasm Of Supraglottic (HCC) ; [place], [place] Home Enteral Nutrition [address] [place] [phone] Social History Tobacco Use Types Packs/Day Years [...] do you attend baptism or Never 2018 buddhism services? Do you [...] Radiology Mark Eastman M.D., M.S. [address] [place] [phone] 04/26/2022 Office Visit Otorhinolaryngology Roxanne Lanza, PRODUCTION SUPPORT SPECIALIST, C.N.P. [address] [place] [phone] 04/28/2022 Appointment Radiation Oncology Ursula Aguirre M.D. [address] [place] [phone] documented as of this encounter Visit Diagnoses Diagnosis Gastrostomy Status (HCC) - Primary Malignant Neoplasm Of Supraglottic (HCC) Home [facility] documented in this encounter
--- OUTSIDE RECORDS SUMMARY | 2022-04-07 09:37 | XMS_ITS | Encounter Summary ---
:1955 Author Organization [facility] Address [address] [place] [address] Care Team Providers Name Role Phone Unavailable Primary Care Provider Unavailable Reason for Visit Speech Pathology (Routine) - Closed Specialty Diagnoses / Procedures Referred By Contact Refer red To Contact Diagnoses Malignant Neoplasm Of Supraglottic (HCC) Summer Pérez P.A.-C., [facility] [employer] Dysphagia evaluate and treat M.S. [address] [place] [phone] Referral ID Status Reason Start Date Expiration Date Visits Requ ested Visits Authorized [id number] Closed 10/15/2019 10/14/2020 1 1 Encounter Details Date Type Department Care Team Description 01/31/2020 Comprehensive Visit Department of Summer Pérez P.A.-C., M.S. [address] [place] [phone] Dysphagia Oropharyngeal Phase (Primary D x); Neurology in Parvin Mijares M.S., [facility]-[employer] [address] [place] [address] [phone] Malignant Neoplasm Of Supraglottic (HCC) [place], [place] [address] [place] [phone] Social History Tobacco Use Types Packs/Day [...] many times do you More than three jos émiguel es a week 02/21/2019 talk on the phone with family, friends, or neighbors? How often do you get together with friends Once a week 02/21/2019 or relatives? How often do you attend voodoo or Never 2018 sabianism services? Do you [...] this encounter Consult Notes Parvin Mijares M.S., [employer] - 01/31/2020 2:45 PM CDT Speech Pathology [...] Narayan attends today's evaluation session with her mvhkfmog-eh-ckl. She is very pleased to report that [...] swallow Aspiration No, Yes, after the swallow Vanderwagen Lip Closure 0: No labial escape Tongue [...] in detail with the patient and her hdjnkjig-bw-mqf. With swallowprecautions, it is anticipated she will [...] Radiology Mark Eastman M.D., M.S. [address] [place] [phone] 04/26/2022 Office Visit Otorhinolaryngology Roxanne Lanza APRN, C.N.P. [address] [place] [phone] 04/28/2022 Appointment Radiation Oncology Ursula Aguirre M.D. [address] [place] [phone] documented as of this encounter Visit Diagnoses Diagnosis Dysphagia Oropharyngeal Phase - Primary Malignant Neoplasm Of Supraglottic (HCC) documented in this encounter
--- OUTSIDE RECORDS SUMMARY | 2022-04-07 09:37 | XMS_ITS | Encounter Summary ---
:1955 Author Organization [facility] Address [address] [place] [address] Care Team Providers Name Role Phone Unavailable Primary Care Provider Unavailable Reason for Referral Outpatient (Routine) - Closed Specialty Diagnoses / Procedures Referred By Contact Refer red To Contact Radiation Oncology [facility] [address] [place] [phone] Referral ID Status Reason Start Date Expiration Date Visits Requ ested Visits Authorized [id number] Closed 03/14/2020 03/14/2021 1 1 Scheduling Instructions PET/CT and appointment with Dr. Aimee gonzalez in [place] Outpatient (Routine) - Closed Specialty Diagnoses / Procedures Referred By Contact Refer red To Contact Otorhinolaryngology Summer Pérez Kasperbauer, Jan L, P.A.-C., M.S. M.DShital [address] [facility] 200 [place] [phone] Referral ID Status Reason Start Date Expiration Date Visits Requ ested Visits Authorized [id number] Closed 03/14/2020 03/14/2021 1 1 Scheduling Instructions Schedule after PET/CT scan. COVID testin g needed if scope exam will be performed. Outpatient (Routine) - Closed Specialty Diagnoses / Procedures Referred By Contact Refer red To Contact Diagnoses Malignant Neoplasm Of Supraglottic (HCC) Summer Pérez P.A.-C., [place] Reg ion Procedures PET CT Skull to Thigh FDG [place] PET/CT TRUNK M.S. [address] [place] [phone] Referral ID Status Reason Start Date Expiration Date Visits Requ ested Visits Authorized [id number] Closed 03/14/2020 03/14/2021 1 1 Outpatient (Routine) - Closed Specialty Diagnoses / Procedures Referred By Contact Refer red To Contact Radiation Oncology Ursula Aguirre [facility] Milo Lundberg M.D. [address] [place] [phone] Referral ID Status Reason Start Date Expiration Date Visits Requ ested Visits Authorized [id number] Closed 11/29/2019 11/28/2020 1 1 Reason for Visit Outpatient (Routine) - Closed Specialty Diagnoses / Procedures Referred By Contact Refer red To Contact Radiation Oncology Ursula Aguirre [facility] Milo Lundberg M.D. [address] [place] [phone] Referral ID Status Reason Start Date Expiration Date Visits Requ ested Visits Authorized [id number] Closed 11/29/2019 11/28/2020 1 1 Encounter Details Date Type Department Care Team Description 03/14/2020 Hospital Encounter Department of Ursula Aguirre Neoplasm Of Radiation Oncology Kimberley Bacon Supraglottic (HCC) in [place], [address] [place] [address] (Primary Dx) [place], [place] 1821 [facility] [phone] [place], [place] [phone] (Work) [phone] Social History Tobacco Use Types Packs/Day Years [...] do you attend shinto or Never 2018 judaism services? Do you [...] Chew 81 mg every 0 tablet evening. Narrable Aspirin diaper,brief,adult,disposab Bag: (36 each) 36 each [...] 2019: ??Appointment with Dr. Darryl Grayson???Rasta at [facility]. ??Physical examination with flexible laryngoscopy revealed a large fungating mass overlying the posterior left arytenoid that appeared fairly extensive, extending over to the right arytenoid into the piriform sinus. ?? Vocal cords move normally. ??Patient did have some shotty adenopathy on the left side. ??Ordered CT scan and then arrange referral to [facility]. 4. February 12, 2019: ??CT scan [...] Dr. Hung Mabry and Dr. Frank Arrieta??at [facility]. ??Physical examination revealed an exophytic mass [...] will be referred to Radiation Oncology in [place]. 8. March 13, 2019: ??Follow-up appointment with Dr. Arrieta and Dr. Mabry who discussed treatment options including total laryngectomy versus radiation therapy. ??They were not able to offer partial laryngectomy given her lung disease and possible aspiration. ?? 9. March 15, 2019: ??Phone call with Dr. Tapia with the patient's mojsjfpm-vn-oyw reported that the patient had decided to undergo radiation treatment in [place]. ??She will have a follow-up abdominal MRI at [place]. ??The patient will follow-up with her primary [...] Pérez P.A.-C., M.S. 03/14/2020 1:49 PM CDT [facility] [address] [place] [address] Associated attestation - Ursula Aguirre M.D. - [...] 3 months. She will do this in [place] and see ENT. I will see her here in [place]. Her questions were answered; she was comfortable with this plan. I have spent 25 minutes with this patient today in which >50% was spent counseling and coordination of care. Ursula Aguirre M.D., 03/14/2020 documented in this encounter Plan of Treatment Upcoming Encounters Date Type Specialty Care Team Description 04/22/2022 Clinical Admitting/Central Communication Scheduling 04/26/2022 Appointment Radiology Mark Eastman M.D., M.S. [address] [place] [phone] 04/26/2022 Office Visit Otorhinolaryngology Roxanne Lanza, ENVIRONMENTAL SERVICES TECH, C.N.P. [address] [place] [phone] 04/28/2022 Appointment Radiation Oncology Ursula Aguirre M.D. [address] [place] [phone] Scheduled Referrals Name Type Priority Associated Order [...]
--- OUTSIDE RECORDS SUMMARY | 2022-04-07 09:37 | XMS_ITS | Encounter Summary ---
:1955 Author Organization [facility] Address [address] [place] [address] Care Team Providers Name Role Phone Unavailable [...] do you attend alevism or Never 2018 protestant services? Do you [...] Appointment Radiology Mark Eastman M.D., M.S. 200 [place] [phone] 04/26/2022 Office Visit Otorhinolaryngology Roxanne Lanza APRN, C.N.P. 200 [place] [phone] 04/28/2022 Appointment Radiation Oncology Ursula Aguirre M.D. 200 [place] [phone] documented as of this encounter Procedures Procedure [...]
--- OUTSIDE RECORDS SUMMARY | 2022-04-07 09:37 | XMS_ITS | Encounter Summary ---
:1955 Author Organization [facility] Address [address] [place] [address] Care Team Providers Name Role Phone Unavailable [...] do you attend gnosticism or Never 2018 congregational services? Do you [...] Appointment Radiology Mark Eastman M.D., M.S. 200 [place] [phone] 04/26/2022 Office Visit Otorhinolaryngology Roxanne Lanza APRN, C.N.P. [address] [place] [phone] 04/28/2022 Appointment Radiation Oncology Ursula Aguirre M.D. [address] [place] [phone] documented as of this encounter Procedures Procedure [...]
--- OUTSIDE RECORDS SUMMARY | 2022-04-07 09:37 | XMS_ITS | Encounter Summary ---
:1955 Author Organization [facility] Address [address] [place] [address] Care Team Providers Name Role Phone Unavailable Primary Care Provider Unavailable Reason for Visit Reason Comments Feeding Tube Outpatient (Routine) - Closed Specialty Diagnoses / Procedures Referred By Contact Refer red To Contact Endocrinology Padma Vieira APRN, [facility] C.N.P., M.S. [address] [place] [phone] Referral ID Status Reason Start Date Expiration Date Visits Requ ested Visits Authorized [id number] Closed 01/30/2020 01/29/2021 1 1 Encounter Details Date Type Department Care Team Description 01/31/2020 Nurse Only Division of Endocrinology in Padma Pinedo APRN, C.N.P., M.S. [address] [place] [address] [phone] Feeding Tube [place], [place] Chio Whitaker S, R.N. [address] [place] [phone] [address] [place] [phone] Social History Tobacco Use Types Packs/Day [...] do you attend restorationist or Never 2018 islam services? Do you [...] PEG tube Tube size: 20 Tube brand: Vyteris Tube reference number: [id number] Connector type: Small [...] Self replacement: NA Special order tube: GI/IR household personal assistant notified? NA PLAN Were procedural instructions [...] Radiology Mark Eastman M.D., M.S. [address] [place] [phone] 04/26/2022 Office Visit Otorhinolaryngology Roxanne Lanza, CIS COORDINATOR, C.N.P. [address] [place] [phone] 04/28/2022 Appointment Radiation Oncology Ursula Aguirre M.D. [address] [place] [phone] documented as of this encounter Visit Diagnoses [...]
--- OUTSIDE RECORDS SUMMARY | 2022-04-07 09:37 | XMS_ITS | Encounter Summary ---
:1955 Author Organization [facility] Address [address] [place] [address] Care Team Providers Name Role Phone Unavailable Primary Care Provider Unavailable Reason for Referral Outpatient (Routine) - Closed Specialty Diagnoses / Procedures Referred By Contact Refer red To Contact Diagnoses Malignant Neoplasm Of Supraglottic (HCC) Summer Pérez P.A.-C.[facility] Reg ion Procedures PET CT Skull to Thigh FDG IN PET/CT TRUNK M.S. 200 [place] [phone] Referral ID Status Reason Start Date Expiration Date Visits Requ ested Visits Authorized [id number] Closed 03/14/2020 03/14/2021 1 1 Reason for Visit Outpatient (Routine) - Closed Specialty Diagnoses / Procedures Referred By Contact Refer red To Contact Diagnoses Malignant Neoplasm Of Supraglottic (HCC) Summer Pérez P.A.-C.[facility] Reg ion Procedures PET CT Skull to Thigh FDG IN PET/CT TRUNK M.S. 200 [place] [phone] Referral ID Status Reason Start Date Expiration Date Visits Requ ested Visits Authorized [id number] Closed 03/14/2020 03/14/2021 1 1 Encounter Details Date Type Department Care Team Description 06/12/2020 Hospital Encounter Department of Summer Pérez Maligna nt Neoplasm Of Radiology, Malcom Torres M.S . Supraglottic (HCC) Building, in [address] [place] [address] [place] [phone] [place], [place] [phone] (Work) [phone] Social History Tobacco Use Types Packs/Day Years [...] do you attend restorationism or Never 2018 sikh services? Do you [...] Radiology Mark Eastman M.D., M.S. [address] [place] [phone] 04/26/2022 Office Visit Otorhinolaryngology Roxanne Lanza APRN, C.N.P. [address] [place] [phone] 04/28/2022 Appointment Radiation Oncology Ursula Aguirre M.D. [address] [place] [phone] documented as of this encounter Procedures Procedure [...] RADIOPHARMACEUTICAL/MEDS: Route: intravenous fludeoxyglucose F 18 injection RETIREMENT (FDG F-18),9.21 millicurie TECHNIQUE: ??F-18 FDG PET/CT [...] RADIOPHARMACEUTICAL/MEDS: Route: intravenous fludeoxyglucose F 18 injection RETIREMENT (FDG F-18),9.21 millicurie TECHNIQUE: F-18 FDG PET/CT [...] Given 06/12/2020 9:44 AM 9.21 millicuries injection RETIREMENT (FDG F-18) CDT 9.21 millicurie, intravenous, Once, On Meredith 06/12/20 at 1000, For 1 dose documented in this encounter
--- OUTSIDE RECORDS SUMMARY | 2022-04-07 09:38 | XMS_ITS | Encounter Summary ---
:1955 Author Organization [facility] Address [address] [place] [address] Care Team Providers Name Role Phone Unavailable Primary Care Provider Unavailable Encounter Details Date Type Department Care Team Description 09/21/2019 Orders Only Department of Summer Pérez, Malignant Joao plasm Of Radiation Oncology in P.A.-C., M .S. Supraglottic (HCC) [facility] [place] a [address] [facility] (Primary Dx) [address] [place] [phone] Social History Tobacco Use Types Packs/Day Years [...] do you attend mosque or Never 2018 restoration services? Do you [...] Radiology Mark Eastman M.D., M.S. [address] [place] [phone] 04/26/2022 Office Visit Otorhinolaryngology Roxanne Lanza APRN, C.N.P. [address] [place] [phone] 04/28/2022 Appointment Radiation Oncology Ursula Aguirre M.D. [address] [place] [phone] documented as of this encounter Results (ABNORMAL) [...] Organization Address City/State/ZIP Code Phon e Number [facility]- [address] [place] [address] [place] [address] System in [place] 2199 documented in this encounter Visit Diagnoses Diagnosis Malignant Neoplasm Of Supraglottic (HCC) - Primary documented in this encounter
--- OUTSIDE RECORDS SUMMARY | 2022-04-07 09:38 | XMS_ITS | Encounter Summary ---
:1955 Author Organization [facility] Address [address] [place] [address] Care Team Providers Name Role Phone Unavailable Primary Care Provider Unavailable Reason for Referral Outpatient (Routine) - Closed Specialty Diagnoses / Procedures Referred By Contact Refer red To Contact Radiation Oncology Ursula Aguirre [facility] [address] [place] [phone] Referral ID Status Reason Start Date Expiration Date Visits Requ ested Visits Authorized [id number] Closed 11/29/2019 11/28/2020 1 1 Outpatient (Routine) - Closed Specialty Diagnoses / Procedures Referred By Contact Refer red To Contact Radiation Oncology Summer Pérez P.A.-C., [facility].S 200 [place] [address] Referral ID Status Reason Start Date Expiration Date Visits Requ ested Visits Authorized [id number] Closed 08/30/2019 08/29/2020 1 1 Scheduling Instructions TSH a few days prior Reason for Visit Outpatient (Routine) - Closed Specialty Diagnoses / Procedures Referred By Contact Refer red To Contact Radiation Oncology Summer Pérez P.A.-C., [facility].S [address] [place] [phone] Referral ID Status Reason Start Date Expiration Date Visits Requ ested Visits Authorized [id number] Closed 08/30/2019 08/29/2020 1 1 Encounter Details Date Type Department Care Team Description 11/29/2019 Hospital Encounter Department Ursula Molina Neoplasm Of Radiation Oncology Kimberley Bacon Supraglottic (HCC) in [address] [place] [phone] [place], [place] [phone] (Work) [phone] Social History Tobacco Use Types Packs/Day Years [...] do you attend zoroastrianism or Never 2018 muslim services? Do you [...] 2019: ??Appointment with Dr. Darryl Grayson???Rasta at [facility]. ??Physical examination with flexible laryngoscopy revealed a large fungating mass overlying the posterior left arytenoid that appeared fairly extensive, extending over to the right arytenoid into the piriform sinus. ?? Vocal cords move normally. ??Patient did have some shotty adenopathy on the left side. ??Ordered CT scan and then arrange referral to [facility]. 4. February 12, 2019: ??CT scan [...] Dr. Hung Mabry and Dr. Frank Arrieta??at [facility]. ??Physical examination revealed an exophytic mass [...] will be referred to Radiation Oncology in [place]. 8. March 13, 2019: ??Follow-up appointment with Dr. Arrieta and Dr. Mabry who discussed treatment options including total laryngectomy versus radiation therapy. ??They were not able to offer partial laryngectomy given her lung disease and possible aspiration. ?? 9. March 15, 2019: ??Phone call with Dr. Tapia with the patient's qxrqkugj-jq-qwt reported that the patient had decided to undergo radiation treatment in [place]. ??She will have a follow-up abdominal MRI at [place]. ??The patient will follow-up with her primary [...] tube as tolerated. She will talk with managed care provider after our visit. She signed our consent form for video I will put her videoscope exam in [facility]. We will see Obdulia Narayan in follow-up visit in 3-4 months with out imaging. I would suggest another PET/CT at 1 year samuel and will have her see ENT in [place] at that time. Obdulia Narayan knows to [...] M.D. 11/29/2019 1:40 PM CDT Radiation Oncology [facility] [address] [place] [address] documented in this encounter Miscellaneous Notes Addendum Note - Mehreen Trujillo - 11/29/2019 12:41 PM CDT Encounter addended by: Mehreen Trujillo on: 11/29/2019 3:03 PM Actions taken: Letter saved documented in this encounter Plan of Treatment Upcoming Encounters Date Type Specialty Care Team Description 04/22/2022 Clinical Admitting/Central Communication Scheduling 04/26/2022 Appointment Radiology Mark Eastman M.D., M.S. [address] [place] [phone] 04/26/2022 Office Visit Otorhinolaryngology Roxanne Lanza APRN, C.N.P. [address] [place] [phone] 04/28/2022 Appointment Radiation Oncology Ursula Aguirre M.D. [address] [place] [phone] Scheduled Referrals Name Type Priority Associated Order [...]
--- OUTSIDE RECORDS SUMMARY | 2022-04-07 09:38 | XMS_ITS | Encounter Summary ---
:1955 Author Organization [facility] Address [address] [place] [address] Care Team Providers Name Role Phone Unavailable Primary Care Provider Unavailable Reason for Referral Outpatient (Routine) - Closed Specialty Diagnoses / Procedures Referred By Contact Refer red To Contact Social Work Summer Pérez P.A.-C ., M.S. [facility] Region [address] [place] [phone] Referral ID Status Reason Start Date Expiration Date Visits Requ ested Visits Authorized [id number] Closed 09/17/2019 09/16/2020 1 1 SHER OPERATOR Encounter Details Date Type Department Care Team Description 09/17/2019 Orders Only Department of Radiation Jannet Cross R.N. Oncology in [place], [address] [place] [address] 1821 [facility] [phone] [place] [address] [phone] Social History Tobacco Use Types Packs/Day Years [...] do you attend confucianism or Never 2018 rastafarian services? Do you [...] Radiology Mark Eastman M.D., M.S. [address] [place] [phone] 04/26/2022 Office Visit Otorhinolaryngology Roxanne Lanza APRN, C.N.P. [address] [place] [phone] 04/28/2022 Appointment Radiation Oncology Ursula Aguirre M.D. [address] [place] [phone] Scheduled Referrals Name Type Priority Associated Diagnoses Order S [facility] Social Work Outpatient Referral Routine Expected : office visit 09/17/2019 (clinic) (Approximate), Expires: 09/17/2020 documented as of this encounter Visit Diagnoses Not on filedocumented in this encounter
--- OUTSIDE RECORDS SUMMARY | 2022-04-07 09:38 | XMS_ITS | Encounter Summary ---
:1955 Author Organization [facility] Address [address] [place] [address] Care Team Providers Name Role Phone Unavailable Primary Care Provider Unavailable Reason for Referral Outpatient (Routine) - Closed Specialty Diagnoses / Procedures Referred By Contact Refer red To Contact Nutrition Diagnoses Malignant Neoplasm Of Supraglottic (HCC) Summer Pérez P.A.-C., [facility] [address] [place] [address] [phone] Referral ID Status Reason Start Date Expiration Date Visits Requ ested Visits Authorized [id number] Closed 08/03/2019 08/02/2020 1 1 TRONIC ENGINEERING DRAFTSPERSON Encounter Details Date Type Department Care Team Description 08/03/2019 Orders Only Department of Summer Pérez Malignant Joao plasm Of Radiation Oncology in [place], M .S. Supraglottic (HCC) [facility] [address] [place] [address] (Primary Dx) [address] [place] [phone] Social History Tobacco Use Types Packs/Day Years [...] do you attend taoism or Never 2018 restorationist services? Do you belong to any clubs or No 02/21/2019 organizations such as taoism groups, unions, My[employer]us or athletic groups, or school groups? How [...] Radiology Mark Eastman M.D., M.S. [address] [place] [phone] 04/26/2022 Office Visit Otorhinolaryngology Roxanne Lanza, CHIP TESTER, C.N.P. [address] [place] [address] [phone] 04/28/2022 Appointment Radiation Oncology Ursula Aguirre M.D. [address] [place] [address] [phone] Scheduled Referrals Name Type Priority Associated Diagnoses Order S chedule Nutrition - Medical Outpatient Referral Routine Malignant Neop lasm Of Expected: nutrition therapy Supraglottic (HCC) 08/15 consult (clinic) (Approximat e), Expires: 08/03/2022 documented as of this encounter Visit Diagnoses Diagnosis Malignant Neoplasm Of Supraglottic (HCC) - Primary documented in this encounter
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
--- OUTSIDE RECORDS SUMMARY | 2022-04-07 09:38 | XMS_ITS | Encounter Summary ---
:1955 Author Organization [facility] Address [address] [place] [address] Care Team Providers Name Role Phone Unavailable Primary Care Provider Unavailable Reason for Visit Speech Pathology (Routine) - Closed Specialty Diagnoses / Procedures Referred By Contact Refer red To Contact Diagnoses Malignant Neoplasm Of Supraglottic (HCC) Summer Pérez P.A.-C., [facility] FINAL TESTER Dysphagia evaluate and treat M.S. [address] [place] [phone] Referral ID Status Reason Start Date Expiration Date Visits Requ ested Visits Authorized [id number] Closed 09/11/2019 09/10/2020 1 1 Encounter Details Date Type Department Care Team Description 09/28/2019 Comprehensive Visit Department of Summer Pérez P.A.-C., M.S. [address] [place] [phone] Dysphagia Oropharyngeal Phase (Primary D x); Neurology in Bia Linton M.S., [facility]-FINAL TESTER [address] [place] [phone] Malignant Neoplasm Of Supraglottic (HCC) [place], [place] [address] [place] [phone] Social History Tobacco Use Types Packs/Day Years [...] do you attend orthodox or Never 2018 christian services? Do you [...] this encounter Consult Notes Bia Linton M.S., CCC-FINAL TESTER - 09/28/2019 1:00 PM CST Speech Pathology [...] evaluations. Mrs. Narayan was accompanied by her kvxjqarm-lz-vvo to today's appointment. She reports that, in [...] Breathiness: (-4) Profound Harsh: (1) Mild Resonance (MATERIAL SCHEDULER Function)): Within Normal Limits (WNL) Articulation: Impaired [...] the swallow Aspiration Yes, after the swallow [place] Presentation Cup, Self Fed Patient Positioning Upright [...] persons Understandability of Speech: 50: Usually understandable, bvnx-sg-nhmo contact necessary Normalcy of Diet: 50: Soft, [...] in detail with the patient and her ywvxrayk-xa-mgm, who asked several thoughtful questions which were answered to their satisfaction within the FINAL TESTER scope of practice. We discussed that the [...] today's evaluation are available for review on [place] [facility] Diagnosis: Moderate-severe pharyngeal dysphagia following radiation treatment for laryngeal carcinoma Functional Oral Intake Scale: Level 3 - Tube dependent with consistent oral intake of food or liquid Plan Follow-up with Speech Pathology as an outpatient should dysphagia symptoms worsen or as deemed appropriate by the referring physician. COMPANY MANAGER documented in this encounter Plan of Treatment Upcoming Encounters Date Type Specialty Care Team Description 04/22/2022 Clinical Admitting/Central Communication Scheduling 04/26/2022 Appointment Radiology Mark Eastman M.D., M.S. [address] [place] [phone] 04/26/2022 Office Visit Otorhinolaryngology Roxanne Lanza APRN, C.N.P. [address] [place] [phone] 04/28/2022 Appointment Radiation Oncology Ursula Aguirre M.D. [address] [place] [phone] documented as of this encounter Visit Diagnoses Diagnosis Dysphagia Oropharyngeal Phase - Primary Malignant Neoplasm Of Supraglottic (HCC) documented in this encounter
--- OUTSIDE RECORDS SUMMARY | 2022-04-07 09:38 | XMS_ITS | Encounter Summary ---
:1955 Author Organization [facility] Address [address] [place] [address] Care Team Providers Name Role Phone Unavailable Primary Care Provider Unavailable Reason for Visit Reason Onset Date Comments formula 10/16/2019 Encounter Details Date Type Department Care Team Description 10/16/2019 Clinical Communication Division of General Elder, Shahid Cisneros, formula Internal Medicine in [place], [place] [address] [facility] [address] [place] [phone] Social History Tobacco Use Types Packs/Day Years [...] do you attend congregational or Never 2018 confucianist services? Do you [...] Green, AYLEEN, LD - 10/16/2019 4:16 PM ED MANAGER Reviewed Authorization to Release Information in medical [...] she has seen Natasha Brandon RDN in [place] and she suggested the enteral feedings be restarted. Sincenilsa was seen in [place] about a month ago Natasha can prepare the orders for a [place] MD to review and sign to renew them for Ira. For us to do that in [place] we need to see Obdulia. Follow-up plan: Darlin verbalized understanding and she will follow up with the [place] team. MANAGER Telephone Encounter - Marie Green RDN, JUANITO - 10/16/2019 2:44 PM ED MANAGER Reviewed Authorization to Release Information in medical record. Authorization is on file. Problem: Received a call to change her enteral formula with [facility]. Advice given: Left a message for her that per her medical record on 08/02/19 that her nutrition program is follow locally by her primary MD and Natasha Brandon RDN and [place]. [facility] his not writing her enteral orders. Follow-up plan: If she would like to return to [place] we would be glad to see her and assess a change in enteral formula as needed. MANAGER Telephone Encounter - Lucila Briceño Oli - 10/16/2019 1:52 PM CST Patient called Reason for Calling:Formula Detailed Message:The patient requests to have a new formula order send to [facility] Best time to be reached:any time Contact patient by Phone number: Thank you, PLEASE REPLY TO THE SECRETARIAL POOL WHEN REPLYING TO THIS MESSAGE--p RST END VIVIANE NICKERSON. Thank you! MANAGER documented in this encounter Plan of Treatment Upcoming Encounters Date Type Specialty Care Team Description 04/22/2022 Clinical Admitting/Central Communication Scheduling 04/26/2022 Appointment Radiology Mark Eastman M.D., M.S. [address] [place] [phone] 04/26/2022 Office Visit Otorhinolaryngology Roxanne Lanza APRN, C.N.P. [address] [place] [phone] 04/28/2022 Appointment Radiation Oncology Ursula Aguirre M.D. [address] [place] [phone] documented as of this encounter Visit Diagnoses Not on filedocumented in this encounter
--- OUTSIDE RECORDS SUMMARY | 2022-04-07 09:38 | XMS_ITS | Encounter Summary ---
:1955 Author Organization [facility] Address [address] [place] [address] Care Team Providers Name Role Phone Unavailable Primary Care Provider Unavailable Encounter Details Date Type Department Care Team Description 11/26/2019 Clinical Communication Department of Ursula Aguirre Radiation Oncology Kimberley [place] [address] [facility] [address] [place] [address] [phone] Social History Tobacco Use Types Packs/Day Years [...] do you attend islam or Never 2018 adventist services? Do you [...] Radiology Mark Eastman M.D., M.S. [address] [place] [phone] 04/26/2022 Office Visit Otorhinolaryngology Roxanne Lanza APRN, C.N.P. [address] [place] [address] [phone] 04/28/2022 Appointment Radiation Oncology Ursula Aguirre M.D. [address] [place] [address] [phone] documented as of this encounter Visit Diagnoses Not on filedocumented in this encounter
--- OUTSIDE RECORDS SUMMARY | 2022-04-07 09:38 | XMS_ITS | Encounter Summary ---
:1955 Author Organization [facility] Address [address] [place] [address] Care Team Providers Name Role Phone Unavailable Primary Care Provider Unavailable Reason for Visit Reason Comments Scheduling Encounter Details Date Type Department Care Team Description 10/31/2019 Documentation Division of General Ashley Dc, Scheduling Internal Medicine in [place], [place] [address] [facility] [address] [place] [phone] Social History Tobacco Use Types Packs/Day Years [...] Radiology Mark Eastman M.D., M.S. [address] [place] [phone] 04/26/2022 Office Visit Otorhinolaryngology Roxanne Lanza, HEALTH OCCUPATIONS TEACHER, C.N.P. [address] [place] [phone] 04/28/2022 Appointment Radiation Oncology Ursula Aguirre M.D. [address] [place] [phone] documented as of this encounter Visit Diagnoses Not on filedocumented in this encounter
--- OUTSIDE RECORDS SUMMARY | 2022-04-07 09:38 | XMS_ITS | Encounter Summary ---
:1955 Author Organization [facility] Address [address] [place] [address] Care Team Providers Name Role Phone Unavailable Primary Care Provider Unavailable Encounter Details Date Type Department Care Team Description 09/20/2019 Clinical Communication Department of Ursula Aguirre Radiation Oncology in Kimberley Bacon [place], [place] [address] [facility] [address] [place] [phone] Social History Tobacco Use Types Packs/Day Years [...] do you attend orthodoxy or Never 2018 buddhist services? Do you [...] Radiology Mark Eastman M.D., M.S. [address] [place] [phone] 04/26/2022 Office Visit Otorhinolaryngology Roxanne Lanza APRN, C.N.P. [address] [place] [phone] 04/28/2022 Appointment Radiation Oncology Ursula Aguirre M.D. [address] [place] [address] [phone] documented as of this encounter Visit Diagnoses Not on filedocumented in this encounter
--- OUTSIDE RECORDS SUMMARY | 2022-04-07 09:38 | XMS_ITS | Encounter Summary ---
:1955 Author Organization [facility] Address [address] [place] [address] Care Team Providers Name Role Phone Unavailable Primary Care Provider Unavailable Encounter Details Date Type Department Care Team Description 08/30/2019 Orders Only Department of Summer Pérez, Malignant Joao plasm Of Radiation Oncology in P.A.-C., M .S. Supraglottic (HCC) [facility] [address] [facility] (Primary Dx) [address] [place] [phone] Social History Tobacco Use Types Packs/Day Years [...] do you attend samaritan or Never 2018 tenriism services? Do you [...] Radiology Mark Eastman M.D., M.S. [address] [place] [phone] 04/26/2022 Office Visit Otorhinolaryngology Roxanne Lanza APRN, C.N.P. [address] [place] [phone] 04/28/2022 Appointment Radiation Oncology Ursula Aguirre M.D. 200 [place] [address] documented as of this encounter Visit Diagnoses Diagnosis Malignant Neoplasm Of Supraglottic (HCC) - Primary documented in this encounter
--- OUTSIDE RECORDS SUMMARY | 2022-04-07 09:38 | XMS_ITS | Encounter Summary ---
:1955 Author Organization [facility] Address [address] [place] [address] Care Team Providers Name Role Phone Unavailable Primary Care Provider Unavailable Reason for Referral Outpatient (Routine) - Closed Specialty Diagnoses / Procedures Referred By Contact Refer red To Contact Radiation Oncology Summer Pérez P.A.-C., [facility] [address] [place] [phone] Referral ID Status Reason Start Date Expiration Date Visits Requ ested Visits Authorized [id number] Closed 08/03/2019 08/02/2020 1 1 COMMUNICATIONS CABLE JOINTER Reason for Visit Outpatient (Routine) - Closed Specialty Diagnoses / Procedures Referred By Contact Refer red To Contact Radiation Oncology Summer Pérez P.A.-C., [facility] [address] [place] [phone] Referral ID Status Reason Start Date Expiration Date Visits Requ ested Visits Authorized [id number] Closed 08/03/2019 08/02/2020 1 1 Encounter Details Date Type Department Care Team Description 08/03/2019 - Hospital Encounter Department of Summer Pérez P.A.-C., M.S. [address] [place] [phone] Malignant Neoplasm Of 08/06/2019 Radiation Oncology Jannet Cross R.N. [address] [place] [address] Supraglottic (HCC) in [place], (Primary Dx) [place] [address] [facility] [place] [address] Social History Tobacco Use Types Packs/Day Years [...] do you attend caodaism or Never 2018 latter day services? 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 Treatment Course: 1x H&N [...] by: Jannet Cross R.N. 08/06/2019 12:32 PM TELECOMMUNICATIONS CABLE JOINTER COMMUNICATIONS CABLE JOINTER documented in this encounter Plan of Treatment Upcoming Encounters Date Type Specialty Care Team Description 04/22/2022 Clinical Admitting/Central Communication Scheduling 04/26/2022 Appointment Radiology Mark Eastman M.D., M.S. [address] [place] [phone] 04/26/2022 Office Visit Otorhinolaryngology Roxanne Lanza APRN, C.N.P. [address] [place] [phone] 04/28/2022 Appointment Radiation Oncology Ursula Aguirre M.D. [address] [place] [address] Scheduled Referrals Name Type Priority Associated Order Schedule Diagnoses Radiation Oncology Outpatient Referral Routine On ce for 1 nurse visit Occurrences sta rting (clinic) 08/03/2019 unti l 08/03/2019 documented as of this encounter Visit Diagnoses Diagnosis Malignant Neoplasm Of Supraglottic (HCC) - Primary documented in this encounter
--- OUTSIDE RECORDS SUMMARY | 2022-04-07 09:38 | XMS_ITS | Encounter Summary ---
:1955 Author Organization [facility] Address [address] [place] [address] Care Team Providers Name Role Phone Unavailable Primary Care Provider Unavailable Reason for Referral Speech Pathology (Routine) - Closed Specialty Diagnoses / Procedures Referred By Contact Refer red To Contact Diagnoses Malignant Neoplasm Of Supraglottic (HCC) Summer Pérez P.A.-C., Stamps Reg ion Procedures [place]ACHUTE CROWN SEWER - Ongoing treatment M.S. 200 [place] [address] Referral ID Status Reason Start Date Expiration Date Visits Requ ested Visits Authorized [id number] Closed 10/15/2019 10/14/2020 1 1 GER MEDICARE MARKETING Outpatient (Routine) - Closed Specialty Diagnoses / Procedures Referred By Contact Refer red To Contact Diagnoses Malignant Neoplasm Of Supraglottic (HCC) Summer Pérez P.A.-C. Stamps Reg ion Procedures [place] Swallow Function with Video and Speech or OT M.S. 200 [place] [phone] Referral ID Status Reason Start Date Expiration Date Visits Requ ested Visits Authorized [id number] Closed 10/15/2019 10/14/2020 1 1 GER MEDICARE MARKETING Speech Pathology (Routine) - Closed Specialty Diagnoses / Procedures Referred By Contact Refer red To Contact Diagnoses Malignant Neoplasm Of Supraglottic (HCC) Summer Pérez P.A.-C., [place] Reg ion Procedures PARACHUTE CROWN SEWER Dysphagia evaluate and treat M.S. [address] [place] [address] Referral ID Status Reason Start Date Expiration Date Visits Requ ested Visits Authorized [id number] Closed 10/15/2019 10/14/2020 1 1 GER MEDICARE MARKETING Encounter Details Date Type Department Care Team Description 10/15/2019 Orders Only Department of Summer Pérez, Malignant Joao plasm Of Radiation Oncology in [place] Torres Sup[facility]lottic [facility]HCC[facility] [address] [facility] (Primary Dx) [address] [place] [phone] Social History Tobacco Use Types Packs/Day Years [...] do you attend orthodox or Never 2018 buddhist services? Do you [...] Radiology Mark Eastman M.D., M.S. [address] [place] [phone] 04/26/2022 Office Visit Otorhinolaryngology Roxanne Lanza APRN, C.N.P. [address] [place] [phone] 04/28/2022 Appointment Radiation Oncology Ursula Aguirre M.D. [address] [place] [address] documented as of this encounter Results [place] [...]
--- OUTSIDE RECORDS SUMMARY | 2022-04-07 09:38 | XMS_ITS | Encounter Summary ---
:1955 Author Organization [facility] Address [address] [place] [address] Care Team Providers Name Role Phone Unavailable Primary Care Provider Unavailable Reason for Referral Outpatient (Routine) - Canceled Specialty Diagnoses / Procedures Referred By Contact Refer red To Contact Nutrition Diagnoses Malignant Neoplasm Of Supraglottic (HCC) Ursula Aguirre M.D. [address] [phone] Referral ID Status Reason Start Date Expiration Date Visits V isits Requested Authorized [id number] Canceled 08/30/2019 08/29/2020 1 1 R TRAINER Reason for Visit Outpatient (Routine) - Canceled Specialty Diagnoses / Procedures Referred By Contact Refer red To Contact Nutrition Diagnoses Malignant Neoplasm Of Supraglottic (HCC) Ursula Aguirre M.D. [facility] Region [address] [place] [phone] Referral ID Status Reason Start Date Expiration Date Visits V isits Requested Authorized [id number] Canceled 08/30/2019 08/29/2020 1 1 Encounter Details Date Type Department Care Team Description 10/18/2019 Hospital Encounter Department of Mary Aguirre M.D. [address] [place] [phone] Dysphagia (Primary Dx); Radiation Oncology Natasha Brandon, RDN [address] [place] [address] Malignant Neoplasm Of Supraglottic (HCC) in [place], [place] [address] [place] [address] Social History Tobacco Use Types Packs/Day Years [...] do you attend nondenominational or Never 2018 buddhist services? Do you [...] completed April,. Met with patient and her cjvnzrji-qx-xux. Patient is hard of hearing and reads lips. For phone contact Merlin (son) states, his Darlin is the one to call, . ASSESSMENT Relevant Social and Family History She lives in [place], [place] with her son Merlin and his Darlin. During the week while undergoing treatment lives in [place] with a different son. She is . She has 4 sons, 10 grand children and 2 great grandchildren. 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 She has a 40 [...] tube placed by GI 04/17/19 LEONARDO 20 Albanian balloon gastrostomy, ENFit connector Food/Nutrient Related History [...] to re-order her tube feeding formula through [facility]. Care Coordination Authorization on file to speak with DME/Infusion Company: yes DME/Infusion Company that will provide needed supplies for home: [employer] . They delivered supplies 04/18/19. Indication for [...] 2 weeks. Time spent with patient (minutes):15 R TRAINER documented in this encounter Plan of Treatment Upcoming Encounters Date Type Specialty Care Team Description 04/22/2022 Clinical Admitting/Central Communication Scheduling 04/26/2022 Appointment Radiology Mark Eastman M.D., M.S. [address] [place] [phone] 04/26/2022 Office Visit Otorhinolaryngology Roxanne Lanza APRN, C.N.P. [address] [place] [address] 04/28/2022 Appointment Radiation Oncology Ursula Aguirre M.D. [address] [place] [phone] Scheduled Referrals Name Type Priority Associated Diagnoses Order S chedule Nutrition - Outpatient Referral Routine Malignant Neoplasm On ce for 1 Medical nutrition Of Supraglottic Occurre nces therapy consult (HCC) starting 12/2019 (clinic) until 0 documented as of this encounter Visit Diagnoses Diagnosis Dysphagia - Primary Malignant Neoplasm Of Supraglottic (HCC) documented in this encounter
--- OUTSIDE RECORDS SUMMARY | 2022-04-07 09:38 | XMS_ITS | Encounter Summary ---
:1955 Author Organization [facility] Address [address] [place] [address] Care Team Providers Name Role Phone Unavailable Primary Care Provider Unavailable Reason for Referral Outpatient (Routine) - Closed Specialty Diagnoses / Procedures Referred By Contact Refer red To Contact Radiation Oncology Summer Pérez P.A.-C., [facility] [address] [place] [phone] Referral ID Status Reason Start Date Expiration Date Visits Requ ested Visits Authorized [id number] Closed 08/03/2019 08/02/2020 1 1 L ADMINISTRATIVE ASSISTANT Encounter Details Date Type Department Care Team Description 08/03/2019 Orders Only Department of Radiation Summer Pérez P.A .-C., Oncology in [place] [address] [place] [phone] (Wo rk) Social History Tobacco Use Types [...] do you attend buddhism or Never 2018 evangelical services? Do you [...] Radiology Mark Eastman M.D., M.S. [address] [place] [phone] 04/26/2022 Office Visit Otorhinolaryngology Roxanne Lanza APRN, C.N.P. [address] [place] [phone] 04/28/2022 Appointment Radiation Oncology Ursula Aguirre M.D. [address] [place] [phone] Scheduled Referrals Name Type Priority Associated Order Schedule Diagnoses Radiation Oncology Outpatient Referral Routine 1 Occurrences nurse visit starting 2018 (clinic) until 0 documented as of this encounter Visit Diagnoses Not on filedocumented in this encounter
--- OUTSIDE RECORDS SUMMARY | 2022-04-07 09:38 | XMS_ITS | Encounter Summary ---
:1955 Author Organization [facility] Address [address] [place] [address] Care Team Providers Name Role Phone Unavailable Primary Care Provider Unavailable Reason for Referral Outpatient (Routine) - Closed Specialty Diagnoses / Procedures Referred By Contact Refer red To Contact Nutrition Diagnoses Malignant Neoplasm Of Supraglottic (HCC) Summer [facility]rez P.A.-C., [facility] [address] [place] [address] [phone] Referral ID Status Reason Start Date Expiration Date Visits Requ ested Visits Authorized [id number] Closed 08/03/2019 08/02/2020 1 1 BLOWER Reason for Visit Outpatient (Routine) - Closed Specialty Diagnoses / Procedures Referred By Contact Refer red To Contact Nutrition Diagnoses Malignant Neoplasm Of Supraglottic (HCC) Summer Pérez P.A.-C., [facility] [address] [place] [phone] Referral ID Status Reason Start Date Expiration Date Visits Requ ested Visits Authorized [id number] Closed 08/03/2019 08/02/2020 1 1 Encounter Details Date Type Department Care Team Description 08/30/2019 Hospital Encounter Department of Summer Pérez P.A.-C., M.S. [address] [place] [phone] Malignant Neoplasm Radiation Oncology Natasha Brandon C, RDN [address] [place] [phone] Of Supraglottic in [place], (HCC) [place] [address] [place] [phone] Social History Tobacco Use Types Packs/Day Years [...] do you attend mosque or Never 2018 judaism services? Do you [...] 2019; completed April,. ?? Met with patient??and??her jxdjdttz-tv-bzn.?Patient??is hard of hearing and reads lips. For phonecontact Merlin (son)??states, his Darlin is the one to call, . ?? 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 Food/Nutrient Related [...] that will provide needed supplies for home: ??[employer]??. They delivered supplies??04/18/19. ?? Indication for Ongoing [...] weeks. ?? Time spent with patient (minutes):15 BLOWER documented in this encounter Plan of Treatment Upcoming Encounters Date Type Specialty Care Team Description 04/22/2022 Clinical Admitting/Central Communication Scheduling 04/26/2022 Appointment Radiology Mark Eastman M.D., M.S. [address] [place] [phone] 04/26/2022 Office Visit Otorhinolaryngology Roxanne Lanza APRN, C.N.P. [address] [place] [phone] 04/28/2022 Appointment Radiation Oncology Ursula Aguirre M.D. [address] [place] [phone] Scheduled Referrals Name Type Priority Associated Diagnoses Order S chedule Nutrition - Outpatient Referral Routine Malignant Neoplasm On ce for 1 Medical nutrition Of Supraglottic Occurre nces therapy consult (HCC) starting (clinic) until 0 documented as of this encounter Visit Diagnoses Diagnosis Malignant Neoplasm Of Supraglottic (HCC) documented in this encounter
--- OUTSIDE RECORDS SUMMARY | 2022-04-07 09:38 | XMS_ITS | Encounter Summary ---
:1955 Author Organization [facility] Address [address] [place] [address] Care Team Providers Name Role Phone Unavailable Primary Care Provider Unavailable Reason for Referral Outpatient (Routine) - Closed Specialty Diagnoses / Procedures Referred By Contact Refer red To Contact Diagnoses Malignant Neoplasm Of Supraglottic (HCC) Summer Pérez P.A.-C.[facility] Reg ion Procedures PET CT Skull to Thigh FDG [place] PET/CT TRUNK M.S. [address] [place] [address] [phone] Referral ID Status Reason Start Date Expiration Date Visits Requ ested Visits Authorized [id number] Closed 06/14/2019 06/13/2020 1 1 RRAGE WORKER Reason for Visit Outpatient (Routine) - Closed Specialty Diagnoses / Procedures Referred By Contact Refer red To Contact Diagnoses Malignant Neoplasm Of Supraglottic (HCC) Summer Pérez P.A.-C.[facility] Reg ion Procedures PET CT Skull to Thigh FDG [place] PET/CT TRUNK M.S. [address] [place] [address] [phone] Referral ID Status Reason Start Date Expiration Date Visits Requ ested Visits Authorized [id number] Closed 06/14/2019 06/13/2020 1 1 Encounter Details Date Type Department Care Team Description 08/24/2019 Hospital Encounter Department of Summer Pérez Maligna nt Neoplasm Of Radiology, Malcom Torres MStacy Isaacs Supraglottic (HCC) Building, in [address] [place] [address] [place] [phone] [place], [place] [phone] (Work) [phone] Social History Tobacco Use Types Packs/Day Years [...] do you attend mandaen or Never 2018 church services? Do you [...] Radiology Mark Eastman M.D., M.S. [address] [place] [address] 04/26/2022 Office Visit Otorhinolaryngology ZiebRoxanne muñiz APRN, C.N.PShital [address] [place] [phone] 04/28/2022 Appointment Radiation Oncology Ursula Aguirre M.D. [address] [place] [phone] documented as of this encounter Procedures Procedure Name Priority Date/Time Associated Comments Diagnosis PET CT SKULL TO RAD - Routine 08/24/2019 10:53 Malignant Neoplasm R esults for this THIGH (most inpatients AM DEMURRAGE WORKER Of Supraglottic procedur e are in and all (HCC) the results outpatients) section. documented in this encounter Results PET CT Skull to Thigh FDG (08/24/2019 10:53 AM DEMURRAGE WORKER) Anatomical Region Laterality Modality Body, Nuclear Medicine PET RST LOS, N/A Posi nasreen Emission Tomography (PET), PET ARZ LOS, Nuclear Medicine PET FLA Po sitron Emission Tomography (PET) LOS, Nuclear Medicine Specimen (Source) Anatomical Collection Method Collection Time Re ceived Time Location / / Volume Laterality 08/24/2019 12:36 PM DEMURRAGE WORKER Impressions 08/24/2019 12:59 PM DEMURRAGE WORKER No evidence for recurrent or metastatic supraglottic squamous cell carcinoma. Narrative 08/24/2019 12:59 PM DEMURRAGE WORKER EXAM: ??PET CT SKULL TO THIGH FDG Finger stick glucose level at the time o f the PET scan injection was 92 mg/dL. Patient followed standard dietary/fastin g requirements for this exam. RADIOPHARMACEUTICAL/MEDS: Route: intravenous fludeoxyglucose F 18 injection LONG-TERM (FDG F-18),15.01 millicurie TECHNIQUE: ??F-18 FDG PET/CT [...] RADIOPHARMACEUTICAL/MEDS: Route: intravenous fludeoxyglucose F 18 injection LONG-TERM (FDG F-18),15.01 millicurie TECHNIQUE: F-18 FDG PET/CT [...] cell carcinoma. Summer Pérez P.A.-C., M.S. IMG [place] PROCEDURES documented in this encounter Visit Diagnoses Diagnosis Malignant Neoplasm Of Supraglottic (HCC) documented in this encounter Administered Medications Inactive Administered Medications - up to 3 most recent administrations Medication Order MAR Action Action Date Dose Rate Site fludeoxyglucose F 18 Given 08/24/2019 8:58 AM 15.01 millicuries injection LONG-TERM (FDG F-18) DEMURRAGE WORKER 15.01 millicurie, intravenous, Once, On Tue08/24/19 at 0915, For 1 dose documented in this encounter
--- OUTSIDE RECORDS SUMMARY | 2022-04-07 09:38 | XMS_ITS | Encounter Summary ---
:1955 Author Organization [facility] Address [address] [place] [address] Care Team Providers Name Role Phone Unavailable Primary Care Provider Unavailable Reason for Referral Outpatient (Routine) - Closed Specialty Diagnoses / Procedures Referred By Contact Refer red To Contact Diagnoses Malignant Neoplasm Of Supraglottic (HCC) Summer Pérez P.A.-C., [place] Reg ion Procedures FL Swallow Function with Video and Speech or OT M.S. [address] [place] [address] [phone] Referral ID Status Reason Start Date Expiration Date Visits Requ ested Visits Authorized [id number] Closed 09/11/2019 09/10/2020 1 1 RIDGE BELT PUNCHER Reason for Visit Outpatient (Routine) - Closed Specialty Diagnoses / Procedures Referred By Contact Refer red To Contact Diagnoses Malignant Neoplasm Of Supraglottic (HCC) Summer Pérez P.A.-C.[facility] Reg ion Procedures FL Swallow Function with Video and Speech or OT M.S. [address] [place] [address] [phone] Referral ID Status Reason Start Date Expiration Date Visits Requ ested Visits Authorized [id number] Closed 09/11/2019 09/10/2020 1 1 Encounter Details Date Type Department Care Team Description 09/28/2019 Hospital Encounter Department of Summer Pérez P.A.-C., M.S. [address] [place] [phone] Malignant Neoplasm Of Radiology, [place] Bia Linton M.S., CCC-JAVA FRONT END WEB DEVELOPER [address] [place] [phone] Supraglottic (HCC) Building, in [place], [place] [address] [place] [phone] Social History Tobacco Use Types Packs/Day Years [...] do you attend buddhism or Never 2018 amish services? Do you [...] Radiology Mark Eastman M.D., M.S. [address] [place] [phone] 04/26/2022 Office Visit Otorhinolaryngology Roxanne Lanza APRN, C.N.P. [address] [place] [phone] 04/28/2022 Appointment Radiation Oncology Ursula Aguirre M.D. [address] [place] [phone] documented as of this encounter Procedures Procedure Name Priority Date/Time Associated Comments Diagnosis FL SWALLOW RAD - Routine 09/28/2019 2:15 Malignant Neoplasm Resul ts for this FUNCTION WITH (most inpatients PM CARTRIDGE BELT PUNCHER Of Supraglottic procedu re are in VIDEO AND SPEECH and all (HCC) the results OR OT FOR RST outpatients) section. documented in this encounter Results FL Swallow Function with Video and Speech or OT (09/28/2019 2:15 PM CARTRIDGE BELT PUNCHER) Anatomical Region Laterality Modality Gastro Intestinal, Abdominal RST LOS, Abdominal ARZ N/A Digital Radiography LOS, Abdominal FLA LOS Specimen (Source) Anatomical Collection Method Collection Time Re ceived Time Location / / Volume Laterality 09/28/2019 2:31 PM CARTRIDGE BELT PUNCHER Impressions 09/28/2019 2:33 PM CARTRIDGE BELT PUNCHER Aspiration of liquid consistencies and deep penetration of applesauce. See speech pathology note fo r details. Narrative 09/28/2019 2:33 PM CARTRIDGE BELT PUNCHER EXAM: ??FL SWALLOW FUNCTION WITH VIDEO AND [...] oral powder for Given 09/28/2019 2:15 PM CARTRIDGE BELT PUNCHER 5 0 mL suspension (VARIBAR THIN LIQUID) oral, Code/trauma/sedation medication, Starting on Tue09/28/19 at 1415 barium 40 % (w/v) suspension Given 09/28/2019 2:15 PM CARTRIDGE BELT PUNCHER 20 mL Code/trauma/sedation medication, Starting on Tue09/28/19 at 1415 documented in this encounter
--- OUTSIDE RECORDS SUMMARY | 2022-04-07 09:38 | XMS_ITS | Encounter Summary ---
:1955 Author Organization [facility] Address [address] [place] [address] Care Team Providers Name Role Phone Unavailable Primary Care Provider Unavailable Reason for Referral Outpatient (Routine) - Canceled Specialty Diagnoses / Procedures Referred By Contact Refer red To Contact Nutrition Diagnoses Malignant Neoplasm Of Supraglottic (HCC) Ursula Aguirre M.D. [address] [phone] Referral ID Status Reason Start Date Expiration Date Visits V isits Requested Authorized [id number] Canceled 08/30/2019 08/29/2020 1 1 K MAKER Reason for Visit Outpatient (Routine) - Canceled Specialty Diagnoses / Procedures Referred By Contact Refer red To Contact Nutrition Diagnoses Malignant Neoplasm Of Supraglottic (HCC) Ursula Aguirre M.D. [facility] Region [address] [place] [phone] Referral ID Status Reason Start Date Expiration Date Visits V isits Requested Authorized [id number] Canceled 08/30/2019 08/29/2020 1 1 Encounter Details Date Type Department Care Team Description 09/20/2019 Hospital Encounter Department of Mary Aguirre M.D. [address] [place] [phone] Malignant Neoplasm Radiation Oncology Natasha Brandon, RDN [address] [place] [phone] Of Supraglottic in [place], ([facility]) [place] [address] [facility] [place] [phone] Social History Tobacco Use Types Packs/Day Years [...] do you attend quaker or Never 2018 roman catholic services? Do [...] 26, 2019;??completed April,. ?? Met with patient??and??her puwcvawz-ya-daw.?Patient??is hard of hearing and reads lips. For phonecontact Merlin (son)??states, his Darlin is the one to call, . ?? 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 Food/Nutrient Related [...] Obdulia reports that she worries a lot. Xcuyrxjb-ii-lds reports that she thinkSonia is depressed. They are visiting with the social services aide today. Discussed setting a timer for her [...] that will provide needed supplies for home: ??[place]??. They delivered supplies??04/18/19. ?? Indication for Ongoing [...] weeks. ?? Time spent with patient (minutes):15 K MAKER documented in this encounter Plan of Treatment Upcoming Encounters Date Type Specialty Care Team Description 04/22/2022 Clinical Admitting/Central Communication Scheduling 04/26/2022 Appointment Radiology Mark Eastman M.D., M.S. [address] [place] [address] [phone] 04/26/2022 Office Visit Otorhinolaryngology Roxanne Lanza APRN, C.N.P. [address] [place] [address] [phone] 04/28/2022 Appointment Radiation Oncology Ursula Aguirre M.D. [address] [place] [address] [phone] Scheduled Referrals Name Type Priority Associated Diagnoses Order S chedule Nutrition - Outpatient Referral Routine Malignant Neoplasm On ce for 1 Medical nutrition Of Supraglottic Occurre nces therapy consult (HCC) starting 01/2020 (clinic) until 0 documented as of this encounter Visit Diagnoses Diagnosis Malignant Neoplasm Of Supraglottic (HCC) documented in this encounter
--- OUTSIDE RECORDS SUMMARY | 2022-04-07 09:38 | XMS_ITS | Encounter Summary ---
:1955 Author Organization [facility] Address [address] [place] [address] Care Team Providers Name Role Phone Unavailable Primary Care Provider Unavailable Reason for Referral Outpatient (Routine) - Closed Specialty Diagnoses / Procedures Referred By Contact Refer red To Contact Diagnoses Home Enteral Nutrition Rajiv Adler M.D. [facility] Procedures GI Check/Exchange/Adjust Percutaneous Endoscopic Gastrostomy (PEG) [address] [place] [phone] Referral ID Status Reason Start Date Expiration Date Visits Requ ested Visits Authorized [id number] Closed 10/31/2019 10/30/2020 1 1 Encounter Details Date Type Department Care Team Description 10/31/2019 Orders Only Division of Elder, Ch[place] S, Home Enter al Endocrinology in [place].N. Nutrition (Primary [place], [place] [address] [facility]) [address] [place] [phone] Social History Tobacco Use Types Packs/Day Years [...] do you attend lutheran or Never 2018 jain services? Do you belong to any clubs or No 02/21/2019 organizations such as lutheran groups, unions, fraOSIX or athletic groups, or school groups? How [...] Radiology Mark Eastman M.D., M.S. [address] [place] [phone] 04/26/2022 Office Visit Otorhinolaryngology Roxanne Lanza, SOFTWARE QUALITY TEST ENGINEER, C.N.P. [address] [place] [phone] 04/28/2022 Appointment Radiation Oncology Ursula Aguirre M.D. [address] [place] [phone] documented as of this encounter Visit Diagnoses Diagnosis Home Enteral Nutrition - Primary documented in this encounter
--- OUTSIDE RECORDS SUMMARY | 2022-04-07 09:38 | XMS_ITS | Encounter Summary ---
:1955 Author Organization [facility] Address [address] [place] [address] Care Team Providers Name Role Phone Unavailable Primary Care Provider Unavailable Encounter Details Date Type Department Care Team Description 10/17/2019 Clinical Communication Department of Ursula Aguirre Radiation Oncology in [place], [place] [address] [facility] [address] [place] [phone] Social History Tobacco Use Types Packs/Day Years [...] do you attend temple or Never 2018 episcopalian services? Do you [...] for her feeding tube formula. Darlin called [place] to get refilled, but they said they would have to see Obdulia prior to refilling...They told her since she is being seen here by carter and followed by LILLIE that we could take care of it??? Phone number: mobile Is it okay to leave a voicemail on answering machine with test results? Yes Pharmacy (if medication related): [facility] [address] [place] [address] - [address] [place] [address] [facility] [address] Kaitlynn Kamara ING MACHINE OPERATOR documented in this encounter Plan of Treatment Upcoming Encounters Date Type Specialty Care Team Description 04/22/2022 Clinical Admitting/Central Communication Scheduling 04/26/2022 Appointment Radiology Mark Eastman M.D., M.S. [address] [place] [phone] 04/26/2022 Office Visit Otorhinolaryngology Roxanne Lanza, SOURCING ENGINEER, C.N.P. [address] [place] [phone] 04/28/2022 Appointment Radiation Oncology Ursula Aguirre M.D. [address] [place] [phone] documented as of this encounter Visit Diagnoses Not on filedocumented in this encounter
--- OUTSIDE RECORDS SUMMARY | 2022-04-07 09:38 | XMS_ITS | Encounter Summary ---
:1955 Author Organization [facility] Address [address] [place] [address] Care Team Providers Name Role Phone Unavailable Primary Care Provider Unavailable Reason for Referral Outpatient (Routine) - Closed Specialty Diagnoses / Procedures Referred By Contact Refer red To Contact Social Summer Dickens P.A.-C ., M.S. [address] [phone] Referral ID Status Reason Start Date Expiration Date Visits Requ ested Visits Authorized [id number] Closed 09/17/2019 09/16/2020 1 1 ATRICIAN Reason for Visit Outpatient (Routine) - Closed Specialty Diagnoses / Procedures Referred By Contact Refer red To Contact Summer Cota P.A.-C ., M.S. [facility] Region [address] [place] [address] [phone] Referral ID Status Reason Start Date Expiration Date Visits Requ ested Visits Authorized [id number] Closed 09/17/2019 09/16/2020 1 1 Encounter Details Date Type Department Care Team Description 09/20/2019 Hospital Encounter Department of Summer Pérez P.A.-C., M.S. [address] [place] [phone] Malignant Neoplasm Of Radiation Oncology Ibeth Vanessa Supraglottic (HCC) in [place], [place] [address] [place] [phone] Social History Tobacco Use Types Packs/Day Years [...] do you attend judaism or Never 2018 pentecostalism services? Do you [...] REASON FOR VISIT Ms. Narayan, and her vvgtasdn-ax-mvw Darlin Narayan, met with this drug abuse social worker to discuss ideas forresources to meet specific needs. HISTORY OF PRESENT ILLNESS For further information on psycho/social issues, please see the consult completed by this drug abuse social worker on 04/12/19. The patient is a 64 y.o. female from [place], [place] who is being seen in follow-up to radiation therapy for treatment of Patient Active Problem List Diagnosis ??? Malignant Neoplasm Of Supraglottic (HCC) ??? Dysphagia . Social Work is providing ongoing care related to coping, financial concerns, mood, and resources. OBJECTIVE Ms. Obdulia Narayan lives in [place], [place] with her son Merlin and inugnoqn-lg-zed Darlin, as well as another of her sons, and Merlin and Darlin's 4 children. Today she and her qtlmkktk-hz-yjl were looking for ideas to better support [...] to communicate; however, the presence of her zlnuqcvo-fw-yby Darlin helped greatly. Darlin shared that Ms. Narayan has been fairly anxious lately and has stayed in her room more that she used to. We discussed the idea of Ms. Narayan seeing her primary care physician, Dr. De La Fuente, to share her concerns about mood and isolation. This drug abuse social worker also provided information about [facility], which might be a good way to make sure Ms. Narayan is receiving the care she needs in her home; this could also be explored at an appointment with Dr. De La Fuente. Information about assisted living options in [place] was provided, as that had been requested prior to today's consult. Finally, Ms. Narayan expressed interest in transportation options within [place], which could make it possible for her to get out independently if she feels up to it. INTERVENTIONS PLAN 1. sand control worker provided information on [facility] services, and how to contact. 2. sand control worker provided information on assisted living facilities in [place], [place]. 3. sand control worker explored local transportation options in [place], [place], and mailed information on [facility] to Ms. Narayan's wgwrsngh-cx-zch. Face to face time (for billing purposes): 20 minutes documented in this encounter Plan of Treatment Upcoming Encounters Date Type Specialty Care Team Description 04/22/2022 Clinical Admitting/Central Communication Scheduling 04/26/2022 Appointment Radiology Mark Eastman M.D., M.S. [address] [place] [phone] 04/26/2022 Office Visit Otorhinolaryngology Roxanne Lanza APRN, C.N.P. [address] [place] [address] [phone] 04/28/2022 Appointment Radiation Oncology Ursula Aguirre M.D. [address] [place] [phone] Scheduled Referrals Name Type Priority Associated Diagnoses Order S [facility] Social Work Outpatient Referral Routine Once for 1 office visit Occurrences sta rting (clinic) 09/20/2019 unti l 09/20/2019 documented as of this encounter Visit Diagnoses Diagnosis Malignant Neoplasm Of Supraglottic (HCC) documented in this encounter
--- OUTSIDE RECORDS SUMMARY | 2022-04-07 09:38 | XMS_ITS | Encounter Summary ---
:1955 Author Organization [facility] Address [address] [place] [address] Care Team Providers Name Role Phone Unavailable Primary Care Provider Unavailable Reason for Visit Auth/Cert Specialty Diagnoses / Procedures Referred By Contact Refer red To Contact Diagnoses Home Enteral Nutrition Procedures EGD ? PERCUTANEOUS ENDOSCOPIC GASTROSTOMY/JEJUNOSTOMY Referral ID Status Reason Start Date Expiration Date Visits Requ ested Visits Authorized [id number] 1 1 Encounter Details Date Type Department Care Team Description 11/02/2019 Hospital Encounter Department of Rajiv Adler, Radiology, Ramakrishna Chu [facility], in [address] [place] [phone] [place], [place] [phone] (Wo rk) [phone] Social History Tobacco Use Types Packs/Day Years [...] do you attend islam or Never 2018 anabaptism services? Do you [...] Radiology Mark Eastman M.D., M.S. [address] [place] [phone] 04/26/2022 Office Visit Otorhinolaryngology Roxanne Lanza, DISASTER RECOVERY SPECIALIST, C.N.P. [address] [place] [phone] 04/28/2022 Appointment Radiation Oncology Ursula Aguirre M.D. [address] [place] [phone] documented as of this encounter Procedures Procedure [...]
--- OUTSIDE RECORDS SUMMARY | 2022-04-07 09:38 | XMS_ITS | Encounter Summary ---
:1955 Author Organization [facility] Address [address] [place] [address] Care Team Providers Name Role Phone Unavailable Primary Care Provider Unavailable Reason for Referral Speech Pathology (Routine) - Closed Specialty Diagnoses / Procedures Referred By Contact Refer red To Contact Diagnoses Malignant Neoplasm Of Supraglottic (HCC) Summer Pérez P.A.-C., [employer] Reg ion Procedures LAMINATE FLOOR INSTALLER - Ongoing treatment M.S. 200 [place], [place] [phone] Referral ID Status Reason Start Date Expiration Date Visits Requ ested Visits Authorized [id number] Closed 09/11/2019 09/10/2020 1 1 S REPRESENTATIVE MARINE SUPPLIES Outpatient (Routine) - Closed Specialty Diagnoses / Procedures Referred By Contact Refer red To Contact Diagnoses Malignant Neoplasm Of Supraglottic (HCC) Summer Pérez P.A.-C., [employer] Reg ion Procedures FL Swallow Function with Video and Speech or OT M.S. 200 [place] [phone] Referral ID Status Reason Start Date Expiration Date Visits Requ ested Visits Authorized [id number] Closed 09/11/2019 09/10/2020 1 1 S REPRESENTATIVE MARINE SUPPLIES Speech Pathology (Routine) - Closed Specialty Diagnoses / Procedures Referred By Contact Refer red To Contact Diagnoses Malignant Neoplasm Of Supraglottic (HCC) Summer Pérez P.A.-C., [employer] Reg ion Procedures LAMINATE FLOOR INSTALLER Dysphagia evaluate and treat M.S. [address] [place] [phone] Referral ID Status Reason Start Date Expiration Date Visits Requ ested Visits Authorized [id number] Closed 09/11/2019 09/10/2020 1 1 S REPRESENTATIVE MARINE SUPPLIES Encounter Details Date Type Department Care Team Description 09/11/2019 Orders Only Department of Summer Pérez, Malignant Joao plasm Of Radiation Oncology in Andrea Torres Supraglottic (HCC) Bronson Huerta a [address] [facility] (Primary Dx) [address] [place] [phone] Social History Tobacco Use Types Packs/Day Years [...] do you attend jainism or Never 2018 zoroastrian services? Do you [...] Appointment Radiology Mark Eastman M.D., M.S. [address] [place] [phone] 04/26/2022 Office Visit Otorhinolaryngology Roxanne Lanza, TECHNICAL WRITING LEAD/MGR, C.N.P. [address] [place] [phone] 04/28/2022 Appointment Radiation Oncology Ursula Aguirre M.D. [address] [place] [phone] documented as of this encounter Results FL Swallow Function with Video and Speech or OT (09/28/2019 2:15 PM SALES REPRESENTATIVE MARINE SUPPLIES) Anatomical Region Laterality Modality Gastro Intestinal, Abdominal RST LOS, Abdominal ARZ N/A Digital Radiography LOS, Abdominal FLA LOS Specimen (Source) Anatomical Collection Method Collection Time Re ceived Time Location / / Volume Laterality 09/28/2019 2:31 PM SALES REPRESENTATIVE MARINE SUPPLIES Impressions 09/28/2019 2:33 PM SALES REPRESENTATIVE MARINE SUPPLIES Aspiration of liquid consistencies and deep penetration of applesauce. See speech pathology note fo r details. Narrative 09/28/2019 2:33 PM SALES REPRESENTATIVE MARINE SUPPLIES EXAM: ??FL SWALLOW FUNCTION WITH VIDEO AND [...]
--- OUTSIDE RECORDS SUMMARY | 2022-04-07 09:38 | XMS_ITS | Encounter Summary ---
:1955 Author Organization [facility] Address [address] [place] [address] Care Team Providers Name Role Phone Unavailable Primary Care Provider Unavailable Reason for Visit Outpatient (Routine) - Canceled Specialty Diagnoses / Procedures Referred By Contact Refer red To Contact Diagnoses Malignant Neoplasm Of Supraglottic (HCC) Summer Pérez P.A.-C., [place] Reg ion Procedures FL Swallow Function with Video and Speech or OT M.S. [address] [place] [address] [phone] Referral ID Status Reason Start Date Expiration Date Visits V isits Requested Authorized [id number] Canceled 06/14/2019 06/13/2020 1 1 Encounter Details Date Type Department Care Team Description 08/24/2019 Hospital Encounter Department of Radiology, Summer Pérez P.A.-C., M.S. [address] [place] [address] [phone] No Show [place], in Linda Nash M.S., CCC-COMPUTER PUBLISHER [address] [place] [phone] [place], [place] [address] [place] [address] [phone] Social History Tobacco Use Types Packs/Day [...] do you attend holiness or Never 2018 adventism services? Do you belong to any clubs or No 02/21/2019 organizations such as holiness groups, unions, Mobile Card or athletic groups, or school groups? How [...] Comments Blood Pressure 192/101 08/24/2019 12:51 PM CHIEF MERCHANDISING OFFICER Pulse - - Temperature - - Respiratory [...] Appointment Radiology Mark Eastman M.D., M.S. [address] [place] [address] [phone] 04/26/2022 Office Visit Otorhinolaryngology Roxanne Lanza APRN, C.N.P. [address] [place] [phone] 04/28/2022 Appointment Radiation Oncology Ursula Aguirre M.D. [address] [place] [phone] documented as of this encounter Visit Diagnoses Not on filedocumented in this encounter
--- OUTSIDE RECORDS SUMMARY | 2022-04-07 09:38 | XMS_ITS | Encounter Summary ---
:1955 Author Organization [facility] Address [address] [place] [address] Care Team Providers Name Role Phone Unavailable Primary Care Provider Unavailable Reason for Referral Outpatient (Routine) - Closed Specialty Diagnoses / Procedures Referred By Contact Refer red To Contact Radiation Oncology Summer Pérez P.A.-C., INDRA [facility] [address] [place] [phone] Referral ID Status Reason Start Date Expiration Date Visits Requ ested Visits Authorized [id number] Closed 08/30/2019 08/29/2020 1 1 Scheduling Instructions TSH a few days prior ER COAT PAINTER Outpatient (Routine) - Closed Specialty Diagnoses / Procedures Referred By Contact Refer red To Contact Radiation Oncology Summer Pérez P.A.-C., INDRA [facility] [address] [place] [phone] Referral ID Status Reason Start Date Expiration Date Visits Requ ested Visits Authorized [id number] Closed 06/14/2019 06/13/2020 1 1 Scheduling Instructions Schedule after PET, swallow study, and Chrissy Mabry appointment in [place]; coordinate with diet if possible ER COAT PAINTER Reason for Visit Outpatient (Routine) - Closed Specialty Diagnoses / Procedures Referred By Contact Refer red To Contact Radiation Oncology Summer Pérez P.A.-C., [facility] [address] [place] [phone] Referral ID Status Reason Start Date Expiration Date Visits Requ ested Visits Authorized [id number] Closed 06/14/2019 06/13/2020 1 1 Encounter Details Date Type Department Care Team Description 08/30/2019 Hospital Encounter Department of Ursula Aguirre Neoplasm Of Radiation Oncology Kimberley Bacon Supraglottic (HCC) in [place], [facility] [facility] (Primary Dx) [place], [place] [address] [facility] [address] [place], [place] [phone] (Work) [phone] Social History Tobacco Use Types Packs/Day Years [...] Comments Blood Pressure 181/92 08/30/2019 1:26 PM POWDER COAT PAINTER Pulse 85 08/30/2019 1:26 PM POWDER COAT PAINTER Temperature 36.5 ??C (97.7 ??F) 08/30/2019 1:26 PM POWDER COAT PAINTER Respiratory Rate - - Oxygen Saturation - - Inhaled Oxygen Concentration - - Weight 66.8 kg (147 lb 4.3 oz) 08/30/2019 1:26 PM POWDER COAT PAINTER Height - - Body Mass Index 24.01 [...] 2019: ??Appointment with Dr. Darryl Grayson???[facility]. ??Physical examination with flexible laryngoscopy revealed a large fungating mass overlying the posterior left arytenoid that appeared fairly extensive, extending over to the right arytenoid into the piriform sinus. ?? Vocal cords move normally. ??Patient did have some shotty adenopathy on the left side. ??Ordered CT scan and then arrange referral to [facility]. 4. February 12, 2019: ??CT scan of [...] Dr. Hung Mabry and Dr. Frank Arrieta??at [facility]. ??Physical examination revealed an exophytic mass of [...] will be referred to Radiation Oncology in [place]. 8. March 13, 2019: ??Follow-up appointment with Dr. Arrieta and Dr. Mabry who discussed treatment options including total laryngectomy versus radiation therapy. ??They were not able to offer partial laryngectomy given her lung disease and possible aspiration. ?? 9. March 15, 2019: ??Phone call with Dr. Tapia with the patient's dndpucey-hz-vuq reported that the patient had decided to undergo radiation treatment in [place]. ??She will have a follow-up abdominal MRI at [place]. ??The patient will follow-up with her primary [...] Summer Pérez P.A.-C., M.SShital 08/30/2019 2:17 PM POWDER COAT PAINTER [facility] [address] [place] [address] ER COAT PAINTER Associated attestation - Ursula Aguirre M.D. - 08/30/2019 5:40 PM POWDER COAT PAINTER I saw and evaluated the patient and [...] discussed her nutrition. She will see our stock worker and deliverer today. I have spent 25 minutes with this patient today in which >50% was spent counseling and coordination of care. Ursula Aguirre M.D., 08/30/2019 documented in this encounter Plan of Treatment Upcoming Encounters Date Type Specialty Care Team Description 04/22/2022 Clinical Admitting/Central Communication Scheduling 04/26/2022 Appointment Radiology Mark Eastman M.D., M.S. [address] [place] [phone] 04/26/2022 Office Visit Otorhinolaryngology Roxanne Lanza, CUSTOMS BROKERAGE AGENT, C.N.P. [address] [place] [phone] 04/28/2022 Appointment Radiation Oncology Ursula Aguirre M.D. [address] [place] [phone] Scheduled Referrals Name Type Priority Associated Order [...]
--- OUTSIDE RECORDS SUMMARY | 2022-04-07 09:38 | XMS_ITS | Encounter Summary ---
:1955 Author Organization [facility] Address [address] [place] [address] Care Team Providers Name Role Phone Unavailable Primary Care Provider Unavailable Reason for Visit Reason Comments Tube Problem Encounter Details Date Type Department Care Team Description 10/31/2019 Clinical Communication Division of Padma Vieira Problem Endocrinology in [place], SEEDLING PULLER, C.N.P., [facility] [address] [facility] [address] [place] [phone] Social History Tobacco Use Types Packs/Day Years [...] do you attend moravian or Never 2018 roman catholic services? Do [...] the time of her last appointment at [facility] the skin disk was at a 4. [...] be reached: Any Phone number for caller: [phone] Thank you, Miguel PLEASE REPLY TO THE SECRETARIAL POOL WHEN REPLYING TO THIS MESSAGE--p RST END VIVIANE NICKERSON. Thank you! documented in this encounter Plan of Treatment Upcoming Encounters Date Type Specialty Care Team Description 04/22/2022 Clinical Admitting/Central Communication Scheduling 04/26/2022 Appointment Radiology Mark Eastman M.D., M.S. [address] [place] [phone] 04/26/2022 Office Visit Otorhinolaryngology Roxanne Lanza APRN, C.N.P. [address] [place] [phone] 04/28/2022 Appointment Radiation Oncology Ursula Aguirre M.D. 200 [place] [phone] documented as of this encounter Visit Diagnoses Not on filedocumented in this encounter
--- OUTSIDE RECORDS SUMMARY | 2022-04-07 09:39 | XMS_ITS | Encounter Summary ---
:1955 Author Organization [facility] Address [address] [place] [address] Care Team Providers Name Role Phone Unavailable Primary Care Provider Unavailable Encounter Details Date Type Department Care Team Description 05/22/2019 Clinical Communication Department of Radiation Kareem Pérez, Oncology in [place], PMassiel, M.S. [address] [place] [phone] Social History Tobacco Use Types Packs/Day Years [...] do you attend presybeterian or Never 2018 samaritan services? Do you [...] Rolando, came to the clinic today to grape picker a prescription refill of hydrocodone for [...] Radiology Mark Eastman M.D., M.S. [address] [place] [phone] 04/26/2022 Office Visit Otorhinolaryngology Roxanne Lanza, OPTICAL DISPENSER, C.N.P. [address] [place] [phone] 04/28/2022 Appointment Radiation Oncology Ursula Aguirre M.D. [address] [place] [phone] documented as of this encounter Visit Diagnoses Not on filedocumented in this encounter
--- OUTSIDE RECORDS SUMMARY | 2022-04-07 09:39 | XMS_ITS | Encounter Summary ---
:1955 Author Organization [facility] Address [address] [place] [address] Care Team Providers Name Role Phone Unavailable Primary Care Provider Unavailable Reason for Referral Outpatient (Routine) - Canceled Specialty Diagnoses / Procedures Referred By Contact Refer red To Contact Nutrition Diagnoses Malignant Neoplasm Of Supraglottic (HCC) Summer Pérez P.A.-C., INDRA [facility] [address] [place] [address] [phone] Referral ID Status Reason Start Date Expiration Date Visits V isits Requested Authorized [id number] Canceled 05/03/2019 05/02/2020 1 1 Reason for Visit Outpatient (Routine) - Canceled Specialty Diagnoses / Procedures Referred By Contact Refer red To Contact Nutrition Diagnoses Malignant Neoplasm Of Supraglottic (HCC) Summer Pérez P.A.-C., INDRA [facility] [address] [place] [phone] Referral ID Status Reason Start Date Expiration Date Visits V isits Requested Authorized [id number] Canceled 05/03/2019 05/02/2020 1 1 Encounter Details Date Type Department Care Team Description 06/14/2019 Hospital Encounter Department of Summer Pérez P.A.-C., M.S. [address] [place] [phone] Malignant Neoplasm Radiation Oncology RomaNatasha villarreal, RDN [address] [place] [phone] Of Supraglottic in [place], (HCC) [place] [address] [place] [address] Social History Tobacco Use Types [...] do you attend catholic or Never 2018 catholic services? Do you [...] Chew 81 mg every 0 tablet evening. 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 Food/Nutrient Related [...] that will provide needed supplies for home: ??[employer]??. They delivered supplies??04/18/19. ?? Indication for Ongoing [...] Radiology Mark Eastman M.D., M.S. [address] [place] [phone] 04/26/2022 Office Visit Otorhinolaryngology Roxanne Lanza APRN, C.N.P. [address] [place] [address] [phone] 04/28/2022 Appointment Radiation Oncology Ursula Aguirre M.D. [address] [place] [address] [phone] Scheduled Referrals Name Type Priority Associated Diagnoses Order S chedule Nutrition - Outpatient Referral Routine Malignant Neoplasm On ce for 1 Medical nutrition Of Supraglottic Occurre nces therapy consult (HCC) starting (clinic) until 9 documented as of this encounter Visit Diagnoses Diagnosis Malignant Neoplasm Of Supraglottic (HCC) documented in this encounter
--- OUTSIDE RECORDS SUMMARY | 2022-04-07 09:39 | XMS_ITS | Encounter Summary ---
:1955 Author Organization [facility] Address [address] [place] [address] Care Team Providers Name Role Phone Unavailable Primary Care Provider Unavailable Encounter Details Date Type Department Care Team Description 06/18/2019 Orders Only Department of Emy Kuhn Malignan t Neoplasm Of Supraglottic (HCC) (Primary Dx); Nutrition in RDN, LD Home Enteral Nutrition; [place], [place] [address] [facility] Gastrostomy Status (HCC) [address] [place] [phone] Social History Tobacco Use Types Packs/Day Years [...] do you attend christian or Never 2018 yazidism services? Do you [...] followed by dietitians with the team in [place]. I appreciate their recent assessment on 06/14/19. Ms. Narayan's tube will be due for replacement from 07/17/19 to 09/17/2019. I've asked our HEN providerto order HEN replacement appointments noting patient has some appointments in [place] in mid July and follow-up with Dr. Aguirre and AYLEEN in [place] on 08/02/19. SION TOLL WIRE CHIEF documented in this encounter Plan of Treatment Upcoming Encounters Date Type Specialty Care Team Description 04/22/2022 Clinical Admitting/Central Communication Scheduling 04/26/2022 Appointment Radiology Mark Eastman M.D., M.S. [address] [place] [phone] 04/26/2022 Office Visit Otorhinolaryngology Roxanne Lanza, MARINE FIRE FIGHTER, C.N.P. [address] [place] [phone] 04/28/2022 Appointment Radiation Oncology Ursula Aguirre M.D. [address] [place] [phone] documented as of this encounter Visit Diagnoses Diagnosis Malignant Neoplasm Of Supraglottic (HCC) - Primary Home Enteral Nutrition Gastrostomy Status (HCC) documented in this encounter
--- OUTSIDE RECORDS SUMMARY | 2022-04-07 09:39 | XMS_ITS | Encounter Summary ---
:1955 Author Organization [facility] Address [address] [place] [address] Care Team Providers Name Role Phone Unavailable Primary Care Provider Unavailable Encounter Details Date Type Department Care Team Description 08/02/2019 Clinical Communication Department of Nutrition Charlene Jasso sa, in [facility] guillaume RDN, LD [address] [facility] [address] [place] [phone] Social History Tobacco Use Types Packs/Day Years [...] do you attend voodoo or Never 2018 hoahaoism services? Do you [...] update home tube feeding orders as needed. H ROOM TECHNICIAN documented in this encounter Plan of Treatment Upcoming Encounters Date Type Specialty Care Team Description 04/22/2022 Clinical Admitting/Central Communication Scheduling 04/26/2022 Appointment Radiology Mark Eastman M.D., M.S. [address] [place] [phone] 04/26/2022 Office Visit Otorhinolaryngology Roxanne Lanza APRN, C.N.P. [address] [place] [phone] 04/28/2022 Appointment Radiation Oncology Ursula Aguirre M.D. [address] [place] [phone] documented as of this encounter Visit Diagnoses Not on filedocumented in this encounter
--- OUTSIDE RECORDS SUMMARY | 2022-04-07 09:39 | XMS_ITS | Encounter Summary ---
:1955 Author Organization [facility] Address [address] [place] [address] Care Team Providers Name Role Phone Unavailable Primary Care Provider Unavailable Reason for Referral Outpatient (Routine) - Closed Specialty Diagnoses / Procedures Referred By Contact Refer red To Contact Nutrition Diagnoses Malignant Neoplasm Of Supraglottic (HCC) Summer Pérez P.A.-C., INDRA [facility] [address] [place] [phone] Referral ID Status Reason Start Date Expiration Date Visits Requ ested Visits Authorized [id number] Closed 06/14/2019 06/13/2020 1 1 GER OF INTERNAL AUDIT Reason for Visit Outpatient (Routine) - Closed Specialty Diagnoses / Procedures Referred By Contact Refer red To Contact Nutrition Diagnoses Malignant Neoplasm Of Supraglottic (HCC) Summer Pérez P.A.-C., [facility] [address] [place] [phone] Referral ID Status Reason Start Date Expiration Date Visits Requ ested Visits Authorized [id number] Closed 06/14/2019 06/13/2020 1 1 Encounter Details Date Type Department Care Team Description 08/03/2019 Hospital Encounter Department of Summer Pérez P.A.-C., M.S. [address] [place] [phone] Malignant Neoplasm Radiation Oncology Natasha Brandon C, RDN [address] [place] [phone] Of Supraglottic in [place], (HCC) [place] [address] [place] [phone] Social History Tobacco Use Types Packs/Day Years [...] do you attend nondenominational or Never 2018 jewish services? 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 Food/Nutrient Related History She reports [...] that will provide needed supplies for home: ??[place]??. They delivered supplies??04/18/19. ?? Indication for Ongoing [...] ?? Time spent with patient (minutes):15 ?? GER OF INTERNAL AUDIT documented in this encounter Plan of Treatment Upcoming Encounters Date Type Specialty Care Team Description 04/22/2022 Clinical Admitting/Central Communication Scheduling 04/26/2022 Appointment Radiology Mark Eastman M.D., M.S. [address] [place] [phone] 04/26/2022 Office Visit Otorhinolaryngology Roxanne Lanza APRN, C.N.P. [address] [place] [phone] 04/28/2022 Appointment Radiation Oncology Ursula Aguirre M.D. [address] [place] [phone] Scheduled Referrals Name Type Priority Associated Diagnoses Order S chedule Nutrition - Outpatient Referral Routine Malignant Neoplasm On ce for 1 Medical nutrition Of Supraglottic Occurre nces therapy consult (HCC) starting (clinic) until 9 documented as of this encounter Visit Diagnoses Diagnosis Malignant Neoplasm Of Supraglottic (HCC) documented in this encounter
--- OUTSIDE RECORDS SUMMARY | 2022-04-07 09:39 | XMS_ITS | Encounter Summary ---
:1955 Author Organization [facility] Address [address] [place] [address] Care Team Providers Name Role Phone Unavailable Primary Care Provider Unavailable Reason for Referral Outpatient (Routine) - Closed Specialty Diagnoses / Procedures Referred By Contact Refer red To Contact Nutrition Diagnoses Malignant Neoplasm Of Supraglottic (HCC) Summer Pérez P.A.-C., INDRA [facility] 200 [place] [phone] Referral ID Status Reason Start Date Expiration Date Visits Requ ested Visits Authorized [id number] Closed 06/14/2019 06/13/2020 1 1 Outpatient (Routine) - Closed Specialty Diagnoses / Procedures Referred By Contact Refer red To Contact Radiation Oncology Summer Pérez P.A.-C., INDRA [facility] 200 [place] [phone] Referral ID Status Reason Start Date Expiration Date Visits Requ ested Visits Authorized [id number] Closed 06/14/2019 06/13/2020 1 1 Scheduling Instructions Schedule after PET, swallow study, and Chrissy Mabry appointment in [place]; coordinate with diet if possible Outpatient (Routine) - Closed Specialty Diagnoses / Procedures Referred By Contact Refer red To Contact Otorhinolaryngology Diagnoses Malignant Neoplasm Of Supraglottic (HCC) Summer Pérez Kasperbauer, Jan L, P.A.-C., MShitalS. MShitalDShital [address] [place] [address] 200 [place] [phone] Referral ID Status Reason Start Date Expiration Date Visits Requ ested Visits Authorized [id number] Closed 06/14/2019 06/13/2020 1 1 Scheduling Instructions Coordinate same day as PET and swallow s zuleyka, patient prefers Tuesday Speech Pathology (Routine) - Closed Specialty Diagnoses / Procedures Referred By Contact Refer red To Contact Diagnoses Malignant Neoplasm Of Supraglottic (HCC) Summer Pérez P.A.-C. [place] [facility] ion Procedures GEEK SQUAD AGENT Dysphagia evaluate and treat M.S. [address] [place] [address] Referral ID Status Reason Start Date Expiration Date Visits Requ ested Visits Authorized [id number] Closed 06/14/2019 06/13/2020 1 1 Outpatient (Routine) - Closed Specialty Diagnoses / Procedures Referred By Contact Refer red To Contact Diagnoses Malignant Neoplasm Of Supraglottic (HCC) Summer Pérez P.A.-C. [place] [facility] ion Procedures PET CT Skull to Thigh FDG [place] PET/CT TRUNK M.S. [address] [place] [phone] Referral ID Status Reason Start Date Expiration Date Visits Requ ested Visits Authorized [id number] Closed 06/14/2019 06/13/2020 1 1 Outpatient (Routine) - Closed Specialty Diagnoses / Procedures Referred By Contact Refer red To Contact Radiation Oncology Summer Pérez P.A.-C., INDRA [facility] [address] [place] [phone] Referral ID Status Reason Start Date Expiration Date Visits Requ ested Visits Authorized [id number] Closed 05/03/2019 05/02/2020 1 1 Scheduling Instructions Coordinate with diet appt. Reason for Visit Outpatient (Routine) - Closed Specialty Diagnoses / Procedures Referred By Contact Refer red To Contact Radiation Oncology Summer Pérez P.A.-C., INDRA [facility] [address] [place] [phone] Referral ID Status Reason Start Date Expiration Date Visits Requ ested Visits Authorized [id number] Closed 05/03/2019 05/02/2020 1 1 Encounter Details Date Type Department Care Team Description 06/14/2019 Hospital Encounter Department of Ursula Aguirre Neoplasm Of Radiation Oncology Kimberley Bacon Supraglottic (HCC) in [place], [address] [place] [address] (Primary Dx) [place] [address] [place] [phone] [place], [place] [phone] (Work) [phone] Social History Tobacco Use Types Packs/Day Years [...] do you attend adventist or Never 2018 mandaeism services? Do you [...] to pay for the very basics like [employer] hat hard 02/21/2019 food, housing, medical care, [...] then arrange referral to [facility]. 4. February 12, 2019: ??CT scan [...] and Dr. Frank Arrieta??at [facility]. ??Physical examination revealed an exophytic mass [...] will be referred to Radiation Oncology in [place]. 8. March 13, 2019: ??Follow-up appointment with Dr. Arrieta and Dr. Mabry who discussed treatment options including total laryngectomy versus radiation therapy. ??They were not able to offer partial laryngectomy given her lung disease and possible aspiration. ?? 9. March 15, 2019: ??Phone call with Dr. Tapia with the patient's qrojeavj-ke-izq reported that the patient had decided to undergo radiation treatment in [place]. ??She will have a follow-up abdominal MRI at [place]. ??The patient will follow-up with her primary [...] and follow-up appointment with Dr. Mabry in [place] in 6 weeks. We will see the [...] Summer Pérez P.A.-C., M.S. 06/14/2019 3:30 PM [facility] [address] [place] [address] Associated attestation - Ursula Aguirre M.D. - [...] me to video and load this into [employer]. I think she is doing well. She [...] foodshe should wait. She will see our human resources operations manager after our appointment. We will see her [...] Clinical Admitting/Central Communication Scheduling 04/26/2022 Appointment Radiology Mrak Eastman M.D., M.S. [address] [place] [phone] 04/26/2022 Office Visit Otorhinolaryngology Roxanne Lanza APRN, C.N.P. [address] [place] [phone] 04/28/2022 Appointment Radiation Oncology Ursula Aguirre M.D. [address] [place] [phone] Scheduled Referrals Name Type Priority Associated Diagnoses Order S chedule Radiation Oncology Outpatient Referral Routine On ce for 1 office visit Occurrences (clinic) starting 2018 until 9 Return to provider Outpatient Referral Routine Malignant Neopl asm Expected: in another Of Supraglottic 06/14/2019 specialty ([facility]) (Approximate), Expires: 2021 Radiation Oncology Outpatient Referral Routine Ex pected: office visit 08/02/2019 (clinic) (Approximate), Expires: 2019 Nutrition - Outpatient Referral Routine Malignant Neoplasm Ex pected: Medical nutrition Of Supraglottic 019 therapy consult ([facility]) (Approximate ), (clinic) Expires: 2021 documented as of this encounter Results PET CT Skull to Thigh FDG (08/24/2019 10:53 AM [facility]) Anatomical Region Laterality Modality Body, Nuclear Medicine PET RST LOS, N/A Posi nasreen Emission Tomography (PET), PET ARZ LOS, Nuclear Medicine PET FLA Po sitron Emission Tomography (PET) LOS, Nuclear Medicine Specimen (Source) Anatomical Collection Method Collection Time Re ceived Time Location / / Volume Laterality 08/24/2019 12:36 PM [facility] Impressions 08/24/2019 12:59 PM [facility] No evidence for recurrent or metastatic supraglottic squamous cell carcinoma. Narrative 08/24/2019 12:59 PM [facility] EXAM: ??PET CT SKULL TO THIGH FDG Finger stick glucose level at the time o f the PET scan injection was 92 mg/dL. Patient followed standard dietary/fastin g requirements for this exam. RADIOPHARMACEUTICAL/MEDS: Route: intravenous fludeoxyglucose F 18 injection DETENTION (FDG F-18),15.01 millicurie TECHNIQUE: ??F-18 FDG PET/CT [...] intravenous fludeoxyglucose F 18 injection DETENTION (FDG F-18),15.01 millicurie TECHNIQUE: F-18 FDG PET/CT [...]
--- OUTSIDE RECORDS SUMMARY | 2022-04-07 09:39 | XMS_ITS | Encounter Summary ---
:1955 Author Organization [facility] Address [address] [place] [address] Care Team Providers Name Role Phone Unavailable Primary Care Provider Unavailable Reason for Visit Outpatient (Routine) - Closed Specialty Diagnoses / Procedures Referred By Contact Refer red To Contact Otorhinolaryngology Diagnoses Malignant Neoplasm Of Supraglottic (HCC) Summer Pérez, Hung Mabry P.A.-C., M.S. M.DShital [address] [place] [address] 200 [place] [phone] Referral ID Status Reason Start Date Expiration Date Visits Requ ested Visits Authorized [id number] Closed 06/14/2019 06/13/2020 1 1 Encounter Details Date Type Department Care Team Description 08/02/2019 Office Visit Department of Bettie Mabryp jun Otorhinolaryngology in Hung Serna M.D. [place], [place] ([facility]) [address] [place] [phone] Social History Tobacco Use Types Packs/Day [...] do you attend evangelical or Never 2018 episcopal services? Do you [...] female who presents to clinic with her [id number] and 2 grandchildren. She was diagnosed with [...] change later today and visit with the education site manager an clinical services assistant regarding appropriate formulas to assisting gaining weight. [...] Ears: Bilateral canals and TM's normal Nose: Arp and moist Oral Cavity: Arp and dry. Mucous membranes intact. Full dentures [...] squamous cell carcinoma treated with primary radiation [id number] cGy in 35 fractions completed May 04, [...] plan; patient expressed understanding of the content. 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 [address] [place] [phone] 04/26/2022 Office Visit Otorhinolaryngology Roxanne Lanza APRN, C.N.P. [address] [place] [phone] 04/28/2022 Appointment Radiation Oncology Ursula Aguirre M.D. [address] [place] [phone] documented as of this encounter Visit Diagnoses Diagnosis Malignant Neoplasm Of Supraglottic (HCC) documented in this encounter
--- OUTSIDE RECORDS SUMMARY | 2022-04-07 09:39 | XMS_ITS | Encounter Summary ---
:1955 Author Organization [facility] Address [address] [place] [address] Care Team Providers Name Role Phone Unavailable Primary Care Provider Unavailable Encounter Details Date Type Department Care Team Description 05/15/2019 Clinical Communication Department of Ursula Aguirre Radiation Oncology Kimberley Kaur [place] [address] [facility] [address] [place] [phone] Social History Tobacco Use Types Packs/Day Years [...] do you attend taoist or Never 2018 confucianist services? Do you [...] refill of hydrocodone was left at our front man today for them to olive picker. We discussed for the patient to [...] in to pick it up. Phone number: [phone] OR [phone] Is it okay to leave a voicemail on answering machine with test results? Yes Pharmacy (if medication related): [facility] [address] [place] [address] Ayla Orellana C.Ph.T. documented in this encounter Plan of Treatment Upcoming Encounters Date Type Specialty Care Team Description 04/22/2022 Clinical Admitting/Central Communication Scheduling 04/26/2022 Appointment Radiology Mark Eastman M.D., M.S. [address] [place] [phone] 04/26/2022 Office Visit Otorhinolaryngology Roxanne Lanza, ANALOG CIRCUIT DESIGNER, C.N.P. [address] [place] [phone] 04/28/2022 Appointment Radiation Oncology Ursula Aguirre M.D. [address] [place] [phone] documented as of this encounter Visit Diagnoses Diagnosis Malignant Neoplasm Of Supraglottic (HCC) - Primary documented in this encounter
--- OUTSIDE RECORDS SUMMARY | 2022-04-07 09:39 | XMS_ITS | Encounter Summary ---
:1955 Author Organization [facility] Address [address] [place] [address] Care Team Providers Name Role Phone Unavailable Primary Care Provider Unavailable Reason for Visit Reason Comments Appointment Encounter Details Date Type Department Care Team Description 06/18/2019 Documentation Division of General Dolores Lucio, Appointment Internal Medicine in M.A.N., R.N . [place], [place] [address] [facility] [address] [place] [phone] Social History Tobacco Use Types Packs/Day Years [...] do you attend druze or Never 2018 mu-ism services? Do you [...] to be added with her 08/02 appointment. WASHER documented in this encounter Plan of Treatment Upcoming Encounters Date Type Specialty Care Team Description 04/22/2022 Clinical Admitting/Central Communication Scheduling 04/26/2022 Appointment Radiology Mark Eastman M.D., M.S. [address] [place] [address] [phone] 04/26/2022 Office Visit Otorhinolaryngology Roxanne Lanza APRN, C.N.P. [address] [place] [phone] 04/28/2022 Appointment Radiation Oncology Ursula Aguirre M.D. [address] [place] [address] [phone] documented as of this encounter Visit Diagnoses Not on filedocumented in this encounter
--- OUTSIDE RECORDS SUMMARY | 2022-04-07 09:39 | XMS_ITS | Encounter Summary ---
:1955 Author Organization [facility] Address [address] [place] [address] Care Team Providers Name Role Phone Unavailable [...] do you attend scientology or Never 2018 mormon services? Do you [...] Radiology Mark Eastman M.D., M.S. [address] [place] [phone] 04/26/2022 Office Visit Otorhinolaryngology Roxanne Lanza APRN, C.N.P. [address] [place] [phone] 04/28/2022 Appointment Radiation Oncology Ursula Aguirre M.D. [address] [place] [phone] documented as of this encounter Procedures Procedure Name Priority Date/Time Associated Comments Diagnosis OTORHINOLARYNGOLOGY IMAGE Routine 08/02/2019 11:30 Results for this EXAM AM DECORATIVE ENGRAVER APPRENTICE procedure are i n the results section. documented in this encounter Results Direct Laryngoscopy-Otorhinolaryngology Image Exam (08/02/2019 11:30 AM DECORATIVE ENGRAVER APPRENTICE) Specimen (Source) Anatomical Collection Method Collection Time Re ceived Time Location / / Volume Laterality 08/02/2019 11:30 AM DECORATIVE ENGRAVER APPRENTICE Narrative IIMS - 08/02/2019 11:38 AM DECORATIVE ENGRAVER APPRENTICE This order has been created and auto-finalized [...]
--- OUTSIDE RECORDS SUMMARY | 2022-04-07 09:39 | XMS_ITS | Encounter Summary ---
:1955 Author Organization [facility] Address [address] [place] [address] Care Team Providers Name Role Phone Unavailable Primary Care Provider Unavailable Reason for Referral Outpatient (Routine) - Closed Specialty Diagnoses / Procedures Referred By Contact Refer red To Contact Radiation Oncology Summer Pérez P.A.-C., [facility] [address] [place] [phone] Referral ID Status Reason Start Date Expiration Date Visits Requ ested Visits Authorized [id number] Closed 05/22/2019 05/21/2020 1 1 Scheduling Instructions Schedule diet also. Encounter Details Date Type Department Care Team Description 05/22/2019 Orders Only Department of Radiation Summer Pérez P.A .-C., Oncology in [place] [address] [place] [phone] (Wo rk) Social History Tobacco Use Types [...] do you attend rastafari or Never 2018 baptism services? Do you [...] Radiology Mark Eastman M.D., M.S. [address] [place] [phone] 04/26/2022 Office Visit Otorhinolaryngology Roxanne Lanza APRN, C.N.P. [address] [place] [address] [phone] 04/28/2022 Appointment Radiation Oncology Ursula Aguirre M.D. [address] [place] [address] [phone] Scheduled Referrals Name Type Priority Associated Diagnoses Order S chedule Radiation Oncology Outpatient Referral Routine Ex pected: office visit 05/24/2019 (clinic) (Approximate), Expires: 05/22/2020 documented as of this encounter Visit Diagnoses Not on filedocumented in this encounter
--- OUTSIDE RECORDS SUMMARY | 2022-04-07 09:39 | XMS_ITS | Encounter Summary ---
:1955 Author Organization [facility] Address [address] [place] [address] Care Team Providers Name Role Phone Unavailable [...] do you attend adventist or Never 2018 rastafari services? Do you [...] Radiology Mark Eastman M.D., M.S. [address] [place] [phone] 04/26/2022 Office Visit Otorhinolaryngology Roxanne Lanza, SITE MANAGER, C.N.P. [address] [place] [phone] 04/28/2022 Appointment Radiation Oncology Ursula Aguirre M.D. [address] [place] [phone] documented as of this encounter Procedures Procedure [...]
--- OUTSIDE RECORDS SUMMARY | 2022-04-07 09:39 | XMS_ITS | Encounter Summary ---
:1955 Author Organization [facility] Address [address] [place] [address] Care Team Providers Name Role Phone Unavailable Primary Care Provider Unavailable Encounter Details Date Type Department Care Team Description 07/16/2019 Orders Only Department of Summer Pérez, Malignant Joao plasm Of Radiation Oncology in P.A.-C., M .S. Supraglottic (HCC) [facility] [address] [facility] (Primary Dx) [address] [place] [phone] Social History Tobacco Use Types Packs/Day Years [...] do you attend amish or Never 2018 confucianism services? Do you [...] Radiology Mark Eastman M.D., M.S. [address] [place] [phone] 04/26/2022 Office Visit Otorhinolaryngology Roxanne Lanza APRN, C.N.P. [address] [place] [phone] 04/28/2022 Appointment Radiation Oncology Ursula Aguirre M.D. 200 [place] [phone] documented as of this encounter Visit Diagnoses Diagnosis Malignant Neoplasm Of Supraglottic (HCC) - Primary documented in this encounter
--- OUTSIDE RECORDS SUMMARY | 2022-04-07 09:39 | XMS_ITS | Encounter Summary ---
:1955 Author Organization [facility] Address [address] [place] [address] Care Team Providers Name Role Phone Unavailable [...] do you attend sabianist or Never 2018 buddhism services? Do you [...] Radiology Mark Eastman M.D., M.S. [address] [place] [phone] 04/26/2022 Office Visit Otorhinolaryngology Roxanne Lanza, VP [employer], C.N.P. [address] [place] [phone] 04/28/2022 Appointment Radiation Oncology Ursula Aguirre M.D. [address] [place] [address] [phone] documented as of this encounter Procedures Procedure [...]
--- OUTSIDE RECORDS SUMMARY | 2022-04-07 09:39 | XMS_ITS | Encounter Summary ---
:1955 Author Organization [facility] Address [address] [place] [address] Care Team Providers Name Role Phone Unavailable Primary Care Provider Unavailable Reason for Referral Outpatient (Routine) - Closed Specialty Diagnoses / Procedures Referred By Contact Refer red To Contact Diagnoses Malignant Neoplasm Of Supraglottic (HCC) Lara Castellanos [place] [facility] Procedures Percutaneous Endoscopic Gastrostomy TRACE CLERK, C.N.P. [address] [place] [phone] Referral ID Status Reason Start Date Expiration Date Visits Requ ested Visits Authorized [id number] Closed 06/18/2019 06/17/2020 1 1 utpatient (Routine) - Closed Specialty Diagnoses / Procedures Referred By Contact Refer red To Contact Endocrinology Diagnoses Malignant Neoplasm [facility]lottic ([facility]) [facility] TR[facility] CL[facility], C.N.P. [address] [place] [phone] Referral ID Status Reason Start Date Expiration Date Visits Requ ested Visits Authorized [id number] Closed 06/18/2019 06/17/2020 1 1 Scheduling Instructions RN30 KE CLINICIAN Encounter Details Date Type Department Care Team Description 06/18/2019 Orders Only Division of [place], Malignant Neopl asm Of Endocrinology in Jerica Joyce, Supraglo ttic (HCC) [place], [place] Omega (Primary Dx) [address] [place] [address] [place], [place] [phone] Social History Tobacco Use Types Packs/Day Years [...] do you attend bahai or Never 2018 amish services? Do you [...] Radiology Mark Eastman M.D., M.S. [address] [place] [phone] 04/26/2022 Office Visit Otorhinolaryngology Roxanne Lanza, TRACE CLERK, C.N.P. [address] [place] [phone] 04/28/2022 Appointment Radiation Oncology Ursula Aguirre M.D. [address] [place] [phone] Scheduled Referrals Name Type Priority Associated Diagnoses Order [facility] Endocrinology nurse Outpatient Routine Malignant Neoplasm Ex pected: visit (clinic) Referral Of Supraglottic 08/02/2019 (HCC) (Approximate), Expires: 06/18/2022 documented as of this encounter Visit Diagnoses Diagnosis Malignant Neoplasm Of Supraglottic (HCC) - Primary documented in this encounter
--- OUTSIDE RECORDS SUMMARY | 2022-04-07 09:39 | XMS_ITS | Encounter Summary ---
:1955 Author Organization [facility] Address [address] [place] [address] Care Team Providers Name Role Phone Unavailable Primary Care Provider Unavailable Reason for Referral Outpatient (Routine) - Closed Specialty Diagnoses / Procedures Referred By Contact Refer red To Contact Nutrition Diagnoses Malignant Neoplasm Of Supraglottic (HCC) Summer Pérez P.A.-C., INDRA [facility].S [address] [place] [address] Referral ID Status Reason Start Date Expiration Date Visits Requ ested Visits Authorized [id number] Closed 05/07/2019 05/06/2020 1 1 Scheduling Instructions LILLIE pt, please schedule for this week an d please call daughter in [place] at [phone] to help schedule as she sunny l be providing transportation to this appt, thanks Reason for Visit Outpatient (Routine) - Closed Specialty Diagnoses / Procedures Referred By Contact Refer red To Contact Nutrition Diagnoses Malignant Neoplasm Of Supraglottic (HCC) Summer Pérez P.A.-C., [facility] M[facility] 200 [place] [address] Referral ID Status Reason Start Date Expiration Date Visits Requ ested Visits Authorized [id number] Closed 05/07/2019 05/06/2020 1 1 Encounter Details Date Type Department Care Team Description 05/24/2019 Hospital Encounter Department of Summer Pérez P.A.-C., M.S. [address] [place] [phone] Malignant Neoplasm Radiation Oncology Natasha Brandon, RDN [address] [place] [address] Of Supraglottic in [place], (HCC) [place] [address] [place] [address] Social History Tobacco Use Types [...] do you attend scientologist or Never 2018 hinduism services? Do you [...] (C32.1)? HISTORY OF PRESENT ILLNESS Mrs. 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 Radiotherapy to the supraglottic tumor initiated on March 26, 2019; anticipated date of completion is May 04, 2019.? Met with patient??and??her son. ??Patient??is hard of hearing and reads lips. For phone contact Merlin(son)??states, his Darlin is the one to call, . ?? 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 Food/Nutrient Related [...] that will provide needed supplies for home: ??[place]??. They delivered supplies??04/18/19. ?? Indication for Ongoing [...] 04/26/2022 Appointment Radiology Mark Eastman M.D., M.S. [address] [place] [phone] 04/26/2022 Office Visit Otorhinolaryngology Roxanne Lanza APRN, C.N.P. [address] [place] [address] 04/28/2022 Appointment Radiation Oncology Ursula Aguirre M.D. [address] [place] [address] Scheduled Referrals Name Type Priority Associated Diagnoses Order S chedule Nutrition - Outpatient Referral Routine Malignant Neoplasm On ce for 1 Medical nutrition Of Supraglottic Occurre nces therapy consult (HCC) starting 05/2019 (clinic) until 9 documented as of this encounter Visit Diagnoses Diagnosis Malignant Neoplasm Of Supraglottic (HCC) documented in this encounter
--- OUTSIDE RECORDS SUMMARY | 2022-04-07 09:39 | XMS_ITS | Encounter Summary ---
:1955 Author Organization [facility] Address [address] [place] [address] Care Team Providers Name Role Phone Unavailable Primary Care Provider Unavailable Reason for Referral Outpatient (Routine) - Closed Specialty Diagnoses / Procedures Referred By Contact Refer red To Contact Diagnoses Malignant Neoplasm Of Supraglottic (HCC) Lara Castellanos, [place] [facility] Procedures Percutaneous Endoscopic Gastrostomy CHAINSAW MECHANIC, C.N.P. 200 [place] [address] Referral ID Status Reason Start Date Expiration Date Visits Requ ested Visits Authorized [id number] Closed 06/18/2019 06/17/2020 1 1 ETITIVE ATHLETE Reason for Visit Auth/Cert Specialty Diagnoses / Procedures Referred By Contact Refer red To Contact Diagnoses Malignant Neoplasm Of Supraglottic (HCC) Procedures EGD ? PERCUTANEOUS ENDOSCOPIC GASTROSTOMY/JEJUNOSTOMY Referral ID Status Reason Start Date Expiration Date Visits Requ ested Visits Authorized [id number] 1 1 Encounter Details Date Type Department Care Team Description 08/02/2019 Hospital Division of Jasmin Malignant Neopl asm Encounter Gastroenterology in Lara José Of Supra glottic [place], [place] AMAYA, C.N.P. (HCC) [address] [facility] [address] [place] [address] [place], [place] [phone] Social History Tobacco Use Types Packs/Day Years [...] do you attend lutheran or Never 2018 hoahaoism services? Do you [...] Radiology Mark Eastman M.D., M.S. [address] [place] [phone] 04/26/2022 Office Visit Otorhinolaryngology Roxanne Lanza APRN, C.N.P. [address] [place] [phone] 04/28/2022 Appointment Radiation Oncology Ursula Aguirre M.D. [address] [place] [phone] documented as of this encounter Procedures Procedure Name Priority Date/Time Associated Diagnosis Comme nts NON-ENDOSCOPIC TUBE Routine 08/02/2019 2:04 PM Malignant Neopl asm Results for this PROCEDURE COMPETITIVE ATHLETE Of Supraglottic procedure ar e in (HCC) the results section. EGD ? Routine 08/02/2019 2:04 PM Malignant Neoplasm PERCUTANEOUS COMPETITIVE ATHLETE Of Supraglottic ENDOSCOPIC (HCC) GASTROSTOMY/JEJUNOSTO MY documented in this encounter Results Non-Endoscopic Tube Procedure (08/02/2019 2:04 PM COMPETITIVE ATHLETE) Specimen (Source) Anatomical Collection Method Collection Time Re ceived Time Location / / Volume Laterality 08/02/2019 2:04 PM COMPETITIVE ATHLETE Impressions [facility] - 08/20/2019 2:46 PM COMPETITIVE ATHLETE Post-op Diagnoses: ? - The previously removed gastrost poonam tube was replaced with a 20 Fr LEONARDO ? gastrostomy tube. ? - No specimens collected. Narrative [facility] - 08/20/2019 2:46 PM COMPETITIVE ATHLETE Ramakrishna 6 GI GI Patient Name: Obdulia [...]
--- OUTSIDE RECORDS SUMMARY | 2022-04-07 09:39 | XMS_ITS | Encounter Summary ---
:1955 Author Organization [facility] Address [address] [place] [address] Care Team Providers Name Role Phone Unavailable Primary Care Provider Unavailable Reason for Visit Outpatient (Routine) - Closed Specialty Diagnoses / Procedures Referred By Contact Refer red To Contact Diagnoses Malignant Neoplasm Of Supraglottic (HCC) Summer Pérez P.A.-C., [place] [facility] ion Procedures PET CT Skull to Thigh FDG CO PET/CT TRUNK M.S. [address] [place] [phone] Referral ID Status Reason Start Date Expiration Date Visits Requ ested Visits Authorized [id number] Closed 06/14/2019 06/13/2020 1 1 Encounter Details Date Type Department Care Team Description 07/27/2019 Hospital Encounter Department of Summer Pérez Cancele d (Patient: Radiology, Malcom Torres, M.S . Request) [facility], in [address] [place] [phone] [place], [place] [phone] (Work) [phone] Social History Tobacco Use Types Packs/Day Years [...] do you attend sikhism or Never 2018 muslim services? Do you [...] Radiology Mark Eastman M.D., M.S. [address] [place] [phone] 04/26/2022 Office Visit Otorhinolaryngology Roxanne Lanza, ELECTRICAL CAD TECHNICIAN, C.N.P. [address] [place] [phone] 04/28/2022 Appointment Radiation Oncology Ursula Aguirre M.D. [address] [place] [phone] documented as of this encounter Procedures Procedure Name Priority Date/Time Associated Comments Diagnosis PET CT SKULL TO RAD - Routine 08/24/2019 10:53 Malignant Neoplasm R esults for this THIGH (most inpatients AM MICROBIOLOGY SOIL SCIENTIST Of Supraglottic procedur e are in and all (HCC) the results outpatients) section. documented in this encounter Results PET CT Skull to Thigh FDG (08/24/2019 10:53 AM MICROBIOLOGY SOIL SCIENTIST) Anatomical Region Laterality Modality Body, Nuclear Medicine PET RST LOS, N/A Posi nasreen Emission Tomography (PET), PET ARZ LOS, Nuclear Medicine PET FLA Po sitron Emission Tomography (PET) LOS, Nuclear Medicine Specimen (Source) Anatomical Collection Method Collection Time Re ceived Time Location / / Volume Laterality 08/24/2019 12:36 PM MICROBIOLOGY SOIL SCIENTIST Impressions 08/24/2019 12:59 PM MICROBIOLOGY SOIL SCIENTIST No evidence for recurrent or metastatic supraglottic squamous cell carcinoma. Narrative 08/24/2019 12:59 PM MICROBIOLOGY SOIL SCIENTIST EXAM: ??PET CT SKULL TO THIGH FDG Finger stick glucose level at the time o f the PET scan injection was 92 mg/dL. Patient followed standard dietary/fastin g requirements for this exam. RADIOPHARMACEUTICAL/MEDS: Route: intravenous fludeoxyglucose F 18 injection MCFP (FDG F-18),15.01 millicurie TECHNIQUE: ??F-18 FDG PET/CT [...] RADIOPHARMACEUTICAL/MEDS: Route: intravenous fludeoxyglucose F 18 injection MCFP (FDG F-18),15.01 millicurie TECHNIQUE: F-18 FDG PET/CT [...]
--- OUTSIDE RECORDS SUMMARY | 2022-04-07 09:39 | XMS_ITS | Encounter Summary ---
:1955 Author Organization [facility] Address [address] [place] [address] Care Team Providers Name Role Phone Unavailable Primary Care Provider Unavailable Reason for Referral Outpatient (Routine) - Closed Specialty Diagnoses / Procedures Referred By Contact Refer red To Contact Nutrition Diagnoses Malignant Neoplasm Of Supraglottic (HCC) Summer Pérez P.A.-C., [facility] [place] [facility] M.S. 200 [place] [address] Referral ID Status Reason Start Date Expiration Date Visits Requ ested Visits Authorized [id number] Closed 05/07/2019 05/06/2020 1 1 Scheduling Instructions LILLIE pt, please schedule for this week an d please call daughter in [place] at [phone] to help schedule as she sunny l be providing transportation to this appt, thanks Outpatient (Routine) - Canceled Specialty Diagnoses / Procedures Referred By Contact Refer red To Contact Radiation Oncology Diagnoses Malignant Neoplasm Of Supraglottic (HCC) Ursula Aguirre [facility] [place] [facility] M.D. [address] [place] [address] Referral ID Status Reason Start Date Expiration Date Visits V isits Requested Authorized [id number] Canceled 03/15/2019 03/14/2020 1 1 Reason for Visit Outpatient (Routine) - Canceled Specialty Diagnoses / Procedures Referred By Contact Refer red To Contact Radiation Oncology Diagnoses Malignant Neoplasm Of Supraglottic (HCC) Ursula Aguirre [facility] [place] [facility] M.D. [address] [place] [phone] Referral ID Status Reason Start Date Expiration Date Visits V isits Requested Authorized [id number] Canceled 03/15/2019 03/14/2020 1 1 Encounter Details Date Type Department Care Team Description 05/07/2019 Hospital Encounter Department of Mary Aguirre M.D. [address] [place] [phone] Malignant Neoplasm Of Radiation Oncology Jannet Cross R.N. [address] [place] [phone] Supraglottic (HCC) in [place], [place] [address] [place] [address] Social History Tobacco Use Types [...] do you attend sabianist or Never 2018 zoroastrianism services? Do you [...] Patient is willing to meet with our Watch Engineer team this coming and this order has [...] day. I have reviewed Moist Skin Reaction [id number] with pamphlet today. I have provided patient [...] dieticianapurva at the same time. Radiation Oncology [place] can be contacted at anytime for any [...] Radiology Mark Eastman M.D., M.S. [address] [place] [phone] 04/26/2022 Office Visit Otorhinolaryngology Roxanne Lanza, BARBER TOOL SHARPENER, C.N.P. [address] [place] [phone] 04/28/2022 Appointment Radiation Oncology Ursula Aguirre M.D. [address] [place] [phone] Scheduled Referrals Name Type Priority Associated Diagnoses [...]
--- OUTSIDE RECORDS SUMMARY | 2022-04-07 09:39 | XMS_ITS | Encounter Summary ---
:1955 Author Organization [facility] Address [address] [place] [address] Care Team Providers Name Role Phone Unavailable Primary Care Provider Unavailable Reason for Visit Radiation Therapy (Routine) - Closed Specialty Diagnoses / Procedures Referred By Contact Refer red To Contact Diagnoses Malignant Neoplasm Of Supraglottic (HCC) Ursula Aguirre M.D. [facility] Procedures Prior Auth Rad Tx [place] IMRT COMPLEX [address] [place] [phone] Referral ID Status Reason Start Date Expiration Date Visits Requ ested Visits Authorized [id number] Closed 03/15/2019 03/14/2020 35 35 Encounter Details Date Type Department Care Team Description 05/04/2019 Hospital Encounter Department of Ursula Aguirre Neoplasm Of Radiation Oncology Kimberley Bacon Supraglottic (HCC) in [address] (Primary Dx) [place], [place] [address]21 [facility] [address] [place], [place] [phone] (Work) [phone] Social History Tobacco Use Types Packs/Day Years [...] do you attend congregation or Never 2018 faith services? Do you [...] Summer Pérez P.A.-C., M.S., 05/07/2019 10:51 AM [facility] [address] [place] [address] documented in this encounter Miscellaneous Notes Addendum Note - Laine Gee, RTT - 05/04/2019 11:15 AM CDT Encounter addended by: Laine Gee, RTT on: 11/21/2019 12:35 PM Actions taken: Episode un-resolved, Episode resolved documented in this encounter Plan of Treatment Upcoming Encounters Date Type Specialty Care Team Description 04/22/2022 Clinical Admitting/Central Communication Scheduling 04/26/2022 Appointment Radiology Mark Eastman M.D., M.S. [address] [place] [phone] 04/26/2022 Office Visit Otorhinolaryngology Roxanne Lanza, PRODUCTION MECHANIC TIN CANS, C.N.P. [address] [place] [phone] 04/28/2022 Appointment Radiation Oncology Ursula Aguirre M.D. [address] [place] [phone] documented as of this encounter Visit Diagnoses Diagnosis Malignant Neoplasm Of Supraglottic (HCC) - Primary documented in this encounter
--- OUTSIDE RECORDS SUMMARY | 2022-04-07 09:39 | XMS_ITS | Encounter Summary ---
:1955 Author Organization [facility] Address [address] [place] [address] Care Team Providers Name Role Phone Unavailable Primary Care Provider Unavailable Reason for Referral Outpatient (Routine) - Closed Specialty Diagnoses / Procedures Referred By Contact Refer red To Contact Radiation Oncology Summer Pérez P.A.-C., INDRA [facility] [address] [place] [phone] Referral ID Status Reason Start Date Expiration Date Visits Requ ested Visits Authorized [id number] Closed 05/22/2019 05/21/2020 1 1 Scheduling Instructions Schedule diet also. Reason for Visit Outpatient (Routine) - Closed Specialty Diagnoses / Procedures Referred By Contact Refer red To Contact Radiation Oncology Summer Pérez P.A.-C., INDRA [facility] [address] [place] [phone] Referral ID Status Reason Start Date Expiration Date Visits Requ ested Visits Authorized [id number] Closed 05/22/2019 05/21/2020 1 1 Encounter Details Date Type Department Care Team Description 05/24/2019 Hospital Encounter Department of Ursula Aguirre Neoplasm Of Radiation Oncology Kimberley Bacon Supraglottic (HCC) in [address] (Primary Dx) [place], [place] [address] [facility] [address] [place], [place] [phone] (Work) [phone] Social History Tobacco Use Types Packs/Day Years [...] times do you More than three josé imguel es a week 02/21/2019 talk on the phone with family, friends, or neighbors? How often do you get together with friends Once a week 02/21/2019 or relatives? How often do you attend yazidism or Never 2018 latter day services? Do [...] 2019: Appointment with Dr. Darryl Grayson???[facility] at [facility]. Physical examination with flexible laryngoscopy revealed a large fungating mass overlying the posterior left arytenoidthat appeared fairly extensive, extending over to the right arytenoid into the piriform sinus. Vocal cords move normally. Patient did have some shotty adenopathy on the left side. Ordered CT scan and then arrange referral to [facility]. 4. February 12, 2019: ??CT scan [...] Hung Mabry and Dr. Frank Arrieta??at [facility]. Physical examination revealed an exophytic mass of [...] she willbe referred to Radiation Oncology in [place]. 8. March 13, 2019: Follow-up appointment with Dr. Arrieta and Dr. Mabry who discussed treatment options including total laryngectomy versus radiation therapy. They were not able to offer partial laryngectomy given her lung disease and possible aspiration. 9. March 15, 2019: Phone call with Dr. Tapia with the patient's [id number] reported that the patient had decided to undergo radiation treatment in [place]. She will have a follow-up abdominal MRI at [place]. The patient will follow-up with her primary [...] She is not using a humidifier in [place] like she used previously in [place]. She denies fever or chills. She met [...] Pérez P.A.-C., M.S. 05/24/2019 4:35 PM [facility] [address] [place] [address] Associated attestation - Ursula Aguirre M.D. - [...] her PEG tube. She met with our insurance policy issue clerk today. She also is complaining of the [...] Radiology Mark Eastman M.D., M.S. [address] [place] [phone] 04/26/2022 Office Visit Otorhinolaryngology Roxanne Lanza, GUEST EXPERIENCE CAPTAIN, C.N.P. [address] [place] [phone] 04/28/2022 Appointment Radiation Oncology Ursula Aguirre M.D. [address] [place] [phone] Scheduled Referrals Name Type Priority Associated Order Schedule Diagnoses Radiation Oncology Outpatient Referral Routine On ce for 1 office visit Occurrences sta rting (clinic) 05/24/2019 unti l 05/24/2019 documented as of this encounter Visit Diagnoses Diagnosis Malignant Neoplasm Of Supraglottic (HCC) - Primary documented in this encounter
--- OUTSIDE RECORDS SUMMARY | 2022-04-07 09:39 | XMS_ITS | Encounter Summary ---
:1955 Author Organization [facility] Address [address] [place] [address] Care Team Providers Name Role Phone Unavailable Primary Care Provider Unavailable Encounter Details Date Type Department Care Team Description 08/02/2019 Documentation Division of Gastroenterology Jordon Tse, in [facility] guillaume Duff [address] [place] [address] [place] [phone] Social History Tobacco Use [...] do you attend rastafari or Never 2018 orthodoxy services? Do you [...] - 08/02/2019 2:40 PM CST Note created ME TAX PREPARER documented in this encounter Nursing Notes Chucho Tse, R.N. - 08/02/2019 2:40 PM CST PEG/PEJ Nursing Procedure Note ASSESSMENT / PLAN Patient Name: Obdulia Narayan Department : DIVISION OF GASTROENTEROLOGY IN [place], [place] SUBJECTIVE Past Medical History: Diagnosis Date [...] on file OBJECTIVE Procedure Patient presents to [facility] Ramakrishna 6 Patient being seen for: PEG [...] Reading and Seeing Education: PEG/PEJ Wallet Card ([id number]) Supplies sent with patient: None Encouraged Pt to applied barrier spray on areas of erythema under skin disk. ME TAX PREPARER documented in this encounter Plan of Treatment Upcoming Encounters Date Type Specialty Care Team Description 04/22/2022 Clinical Admitting/Central Communication Scheduling 04/26/2022 Appointment Radiology Mark Eastman M.D., M.S. [address] [place] [phone] 04/26/2022 Office Visit Otorhinolaryngology Roxanne Lanza, SALES NEGOTIATOR, C.N.P. [address] [place] [phone] 04/28/2022 Appointment Radiation Oncology Ursula Aguirre M.D. [address] [place] [phone] documented as of this encounter Visit Diagnoses Not on filedocumented in this encounter
--- OUTSIDE RECORDS SUMMARY | 2022-04-07 09:39 | XMS_ITS | Encounter Summary ---
:1955 Author Organization [facility] Address [address] [place] [address]71 Care Team Providers Name Role Phone Unavailable Primary Care Provider Unavailable Reason for Visit Reason Comments Feeding Tube Outpatient (Routine) - Closed Specialty Diagnoses / Procedures Referred By Contact Refer red To Contact Endocrinology Diagnoses Malignant Neoplasm Of Supraglottic (HCC) Lara Castellanos [facility] AMAYA, C.N.P. [address] [place] [phone] Referral ID Status Reason Start Date Expiration Date Visits Requ ested Visits Authorized [id number] Closed 06/18/2019 06/17/2020 1 1 Encounter Details Date Type Department Care Team Description 08/02/2019 Nurse Only Division of Endocrinology in Lara Grijalva APRN, C.N.P. [address] [place] [address] [phone] Feeding Tube [place], [place] Chio Whitaker, RShitalN. [address] [place] [address] [phone] [address] [place] [phone] Social History Tobacco Use Types Packs/Day [...] do you attend nondenominational or Never 2018 restoration services? Do you [...] (154 lb 8.7 oz) 08/02/2019 9:57 AM INSPECTOR MOTOR VEHICLES Height - - Body Mass Index 25.2 [...] PEG tube Tube size: 20 Tube brand: [employer] Tube reference number: [id number] Connector type: Small [...] Self replacement: NA Special order tube: GI/IR electric motors salesperson notified? NA PLAN Were procedural instructions given? [...] infection that her radiation oncology provider in [place] prescribed antibiotics for she believes in May. [...] to schedule an appointment to treat it. ECTOR [employer] documented in this encounter Plan of Treatment Upcoming Encounters Date Type Specialty Care Team Description 04/22/2022 Clinical Admitting/Central Communication Scheduling 04/26/2022 Appointment Radiology Mark Eastman M.D., M.S. [address] [place] [address] [phone] 04/26/2022 Office Visit Otorhinolaryngology Roxanne Lanza APRN, C.N.P. [address] [place] [phone] 04/28/2022 Appointment Radiation Oncology Ursula Aguirre M.D. [address] [place] [phone] documented as of this encounter Visit Diagnoses Diagnosis Malignant Neoplasm Of Supraglottic (HCC) documented in this encounter
--- OUTSIDE RECORDS SUMMARY | 2022-04-07 09:39 | XMS_ITS | Encounter Summary ---
:1955 Author Organization [facility] Address [address] [place] [address] Care Team Providers Name Role Phone Unavailable Primary Care Provider Unavailable Encounter Details Date Type Department Care Team Description 05/11/2019 Abstract Department of Radiation Jannet Cross R.N. Oncology in [place], [address] [place] [address] 1821 [facility] [address] [place] [address] [phone] Social History Tobacco Use Types Packs/Day Years [...] do you attend jain or Never 2018 holiness services? Do you [...] Radiology Mark Eastman M.D., M.S. [address] [place] [phone] 04/26/2022 Office Visit Otorhinolaryngology Roxanne Lanza APRN, C.N.P. [address] [place] [phone] 04/28/2022 Appointment Radiation Oncology Ursula Aguirre M.D. [address] [place] [phone] documented as of this encounter Visit Diagnoses Not on filedocumented in this encounter
--- OUTSIDE RECORDS SUMMARY | 2022-04-07 09:40 | XMS_ITS | Encounter Summary ---
:1955 Author Organization [facility] Address [address] [place] [address]308 Care Team Providers Name Role Phone Unavailable Primary Care Provider Unavailable Reason for Visit Radiation Therapy (Routine) - Closed Specialty Diagnoses / Procedures Referred By Contact Refer red To Contact Diagnoses Malignant Neoplasm Of Supraglottic (HCC) Ursula Aguirre M.D. [facility] Procedures Prior Auth Rad Tx [place] IMRT COMPLEX [address] [place] [phone] Referral ID Status Reason Start Date Expiration Date Visits Requ ested Visits Authorized [id number] Closed 03/15/2019 03/14/2020 35 35 Encounter Details Date Type Department Care Team Description 04/30/2019 Hospital Encounter Department of Radiation Bud Aguirre I., [place]cology [place] [address] [facility] 1821 [place] [address] [phone] Social History Tobacco Use Types Packs/Day Years [...] Radiology Mark Eastman M.D., M.S. [address] [place] [phone] 04/26/2022 Office Visit Otorhinolaryngology Roxanne Lanza APRN, C.N.P. [address] [place] [address] [phone] 04/28/2022 Appointment Radiation Oncology Ursula Aguirre M.D. [address] [place] [address] [phone] documented as of this encounter Visit Diagnoses Not on filedocumented in this encounter
--- OUTSIDE RECORDS SUMMARY | 2022-04-07 09:40 | XMS_ITS | Encounter Summary ---
:1955 Author Organization [facility] Address [address] [place] [address] Care Team Providers Name Role Phone Unavailable Primary Care Provider Unavailable Reason for Visit Radiation Therapy (Routine) - Closed Specialty Diagnoses / Procedures Referred By Contact Refer red To Contact Diagnoses Malignant Neoplasm Of Supraglottic (HCC) Ursula Aguirre M.D. [facility] Procedures Prior Auth Rad Tx [place] IMRT COMPLEX [address] [place] [phone] Referral ID Status Reason Start Date Expiration Date Visits Requ ested Visits Authorized [id number] Closed 03/15/2019 03/14/2020 35 35 Encounter Details Date Type Department Care Team Description 05/03/2019 Hospital Encounter Department of Radiation Bud Aguirre I., [place]cology [place] [address] [facility] 1821 [place] [address] [phone] Social History Tobacco Use Types Packs/Day Years [...] Radiology Mark Eastman M.D., M.S. [address] [place] [phone] 04/26/2022 Office Visit Otorhinolaryngology Roxanne Lanza APRN, C.N.P. [address] [place] [phone] 04/28/2022 Appointment Radiation Oncology Ursula Aguirre M.D. [address] [place] [phone] documented as of this encounter Visit Diagnoses Not on filedocumented in this encounter
--- OUTSIDE RECORDS SUMMARY | 2022-04-07 09:40 | XMS_ITS | Encounter Summary ---
:1955 Author Organization [facility] Address [address] [place] [address]67 Care Team Providers Name Role Phone Unavailable Primary Care Provider Unavailable Encounter Details Date Type Department Care Team Description 04/26/2019 Clinical Communication Department of Radiation Kareem Pérez, Oncology in [place], PMassiel, M.S. [address] 1821 [place] [address] [phone] Social History Tobacco Use Types Packs/Day Years [...] do you attend restorationist or Never 2018 yazdanism services? Do you [...] Eastman M.D., M.S. [address] [place] [phone] 04/26/2022 Office Visit Otorhinolaryngology Roxanne Lanza, RADIATION ONCOLOGIST, C.N.P. [address] [place] [address] [phone] 04/28/2022 Appointment Radiation Oncology Ursula Aguirre M.D. [address] [place] [phone] documented as of this encounter Visit Diagnoses Not on filedocumented in this encounter
--- OUTSIDE RECORDS SUMMARY | 2022-04-07 09:40 | XMS_ITS | Encounter Summary ---
:1955 Author Organization [facility] Address [address] [place] [address] Care Team Providers Name Role Phone Unavailable Primary Care Provider Unavailable Reason for Visit Radiation Therapy (Routine) - Closed Specialty Diagnoses / Procedures Referred By Contact Refer red To Contact Diagnoses Malignant Neoplasm Of Supraglottic (HCC) Ursula Aguirre M.D. [facility] Procedures Prior Auth Rad Tx [place] IMRT COMPLEX [address] [place] [phone] Referral ID Status Reason Start Date Expiration Date Visits Requ ested Visits Authorized [id number] Closed 03/15/2019 03/14/2020 35 35 Encounter Details Date Type Department Care Team Description 04/24/2019 Hospital Encounter Department of Radiation Bud Aguirre I., [place]cology [place] [address] [facility] 1821 [place] [phone] Social History Tobacco Use Types Packs/Day Years [...] do you attend quaker or Never 2018 temple services? Do you [...] Radiology Mark Eastman M.D., M.S. [address] [place] [phone] 04/26/2022 Office Visit Otorhinolaryngology Roxanne Lanza APRN, C.N.P. [address] [place] [phone] 04/28/2022 Appointment Radiation Oncology Ursula Aguirre M.D. [address] [place] [phone] documented as of this encounter Visit Diagnoses Not on filedocumented in this encounter
--- OUTSIDE RECORDS SUMMARY | 2022-04-07 09:40 | XMS_ITS | Encounter Summary ---
:1955 Author Organization [facility] Address [address] [place] [address]47 Care Team Providers Name Role Phone Unavailable Primary Care Provider Unavailable Reason for Referral Outpatient (Routine) - Closed Specialty Diagnoses / Procedures Referred By Contact Refer red To Contact Radiation Oncology Summer Pérez P.A.-C., [facility] M.S. [address] [place] [address] Referral ID Status Reason Start Date Expiration Date Visits Requ ested Visits Authorized [id number] Closed 05/03/2019 05/02/2020 1 1 Scheduling Instructions Coordinate with diet appt. Radiation Therapy (Routine) - Canceled Specialty Diagnoses / Procedures Referred By Contact Refer red To Contact Diagnoses Malignant Neoplasm Of Supraglottic (HCC) Ursula Aguirre M.D. [facility] Procedures Management Visit [address] [place] [phone] Referral ID Status Reason Start Date Expiration Date Visits V isits Requested Authorized [id number] Canceled 03/15/2019 03/14/2020 1 1 Reason for Visit Radiation Therapy (Routine) - Canceled Specialty Diagnoses / Procedures Referred By Contact Refer red To Contact Diagnoses Malignant Neoplasm Of Supraglottic (HCC) Ursula Aguirre M.D. [facility] Region Procedures Management Visit [address] [place] [address] Referral ID Status Reason Start Date Expiration Date Visits Rico iqbal Requested Authorized [id number] Canceled 03/15/2019 03/14/2020 1 1 Encounter Details Date Type Department Care Team Description 05/03/2019 Hospital Encounter Department of Ursula Aguirre Neoplasm Of Radiation Oncology Kimberley Bacon Supraglottic (HCC) in [place], [address] [place], [place] 1821 [facility] [address] [place], [place] [phone] (Work) [phone] Social History Tobacco Use Types Packs/Day Years [...] do you attend faith or Never 2018 baptism services? Do you [...] follow-up. We will have her see our hollow tile partition erector at the same time. Signed by: Ursula [...] Appointment Radiology Mark Eastman M.D., M.S. [address] [place] [phone] 04/26/2022 Office Visit Otorhinolaryngology Roxanne Lanza APRN, C.N.P. [address] [place] [phone] 04/28/2022 Appointment Radiation Oncology Ursula Aguirre M.D. [address] [place] [address] Scheduled Orders Name Type Priority Associated Diagnoses [...]
--- OUTSIDE RECORDS SUMMARY | 2022-04-07 09:40 | XMS_ITS | Encounter Summary ---
:1955 Author Organization [facility] Address [address] [place] [address] 11427 Care Team Providers Name Role Phone Unavailable Primary Care Provider Unavailable Reason for Visit Radiation Therapy (Routine) - Closed Specialty Diagnoses / Procedures Referred By Contact Refer red To Contact Diagnoses Malignant Neoplasm Of Supraglottic (HCC) Ursula Aguirre M.D. [facility] Procedures Prior Auth Rad Tx [place] IMRT COMPLEX [address] [place] [phone] Referral ID Status Reason Start Date Expiration Date Visits Requ ested Visits Authorized [id number] Closed 03/15/2019 03/14/2020 35 35 Encounter Details Date Type Department Care Team Description 05/02/2019 Hospital Encounter Department of Radiation Bud Aguirre I., [place]cology [place] [address] [facility] 1821 [place] [phone] Social History Tobacco Use Types Packs/Day Years [...] do you attend christianity or Never 2018 restoration services? Do you [...] Radiology Mark Eastman M.D., M.S. [address] [place] [address] [phone] 04/26/2022 Office Visit Otorhinolaryngology Roxanne Lanza APRN, C.N.P. [address] [place] [address] [phone] 04/28/2022 Appointment Radiation Oncology Ursula Aguirre M.D. [address] [place] [address] [phone] documented as of this encounter Visit Diagnoses Not on filedocumented in this encounter
--- OUTSIDE RECORDS SUMMARY | 2022-04-07 09:40 | XMS_ITS | Encounter Summary ---
:1955 Author Organization [facility] Address [address] [place] [address]64 Care Team Providers Name Role Phone Unavailable Primary Care Provider Unavailable Reason for Visit Radiation Therapy (Routine) - Closed Specialty Diagnoses / Procedures Referred By Contact Refer red To Contact Diagnoses Malignant Neoplasm Of Supraglottic (HCC) Ursula Aguirre M.D. [facility] Procedures Prior Auth Rad Tx [place] IMRT COMPLEX [address] [place] [phone] Referral ID Status Reason Start Date Expiration Date Visits Requ ested Visits Authorized [id number] Closed 03/15/2019 03/14/2020 35 35 Encounter Details Date Type Department Care Team Description 04/27/2019 Hospital Encounter Department of Radiation Bud Aguirre I., Oncology in [place] [address] [facility] 1821 [place] [address] [phone] Social History Tobacco Use Types Packs/Day Years [...] do you attend uatsdin or Never 2018 mosque services? Do you [...] Radiology Mark Eastman M.D., M.S. [address] [place] [phone] 04/26/2022 Office Visit Otorhinolaryngology Roxanne Lanza APRN, C.N.P. [address] [place] [address] [phone] 04/28/2022 Appointment Radiation Oncology Ursula Aguirre M.D. [address] [place] [address] [phone] documented as of this encounter Visit Diagnoses Not on filedocumented in this encounter
--- OUTSIDE RECORDS SUMMARY | 2022-04-07 09:40 | XMS_ITS | Encounter Summary ---
:1955 Author Organization [facility] Address [address] [place] [address] Care Team Providers Name Role Phone Unavailable Primary Care Provider Unavailable Reason for Referral Outpatient (Routine) - Canceled Specialty Diagnoses / Procedures Referred By Contact Refer red To Contact Radiation Oncology Diagnoses Malignant Neoplasm Of Supraglottic (HCC) Ursula Aguirre [facility] M.D. 200 [place] [address] Referral ID Status Reason Start Date Expiration Date Visits V isits Requested Authorized [id number] Canceled 03/15/2019 03/14/2020 1 1 Reason for Visit Outpatient (Routine) - Canceled Specialty Diagnoses / Procedures Referred By Contact Refer red To Contact Radiation Oncology Diagnoses Malignant Neoplasm Of Supraglottic (HCC) Ursula Aguirre [facility] M.D. 200 [place] [address] Referral ID Status Reason Start Date Expiration Date Visits V isits Requested Authorized [id number] Canceled 03/15/2019 03/14/2020 1 1 Encounter Details Date Type Department Care Team Description 04/30/2019 Hospital Encounter Department of Mary Aguirre M.D. [address] [place] [phone] Malignant Neoplasm Of Radiation Oncology Jannet Cross R.N. 200 [place] [address] Supraglottic (HCC) in [place], [place] [address] [place] [address] Social History Tobacco Use Types Packs/Day Years [...] do you attend rastafarian or Never 2018 evangelical services? Do you [...] Chew 81 mg every 0 tablet evening. amprice Aspirin diaper,brief,adult,disposab Bag: (36 each) 36 each [...] Radiology Mark Eastman M.D., M.S. [address] [place] [phone] 04/26/2022 Office Visit Otorhinolaryngology Roxanne Lanza APRN, C.N.P. [address] [place] [address] [phone] 04/28/2022 Appointment Radiation Oncology Ursula Aguirre M.D. [address] [place] [phone] Scheduled Referrals Name Type Priority Associated Diagnoses Order S chedule Radiation Oncology Outpatient Referral Routine Malignant Neopl asm Once for 1 nurse visit Of Supraglottic Occurrences (clinic) (HCC) starting 2018 until 9 documented as of this encounter Visit Diagnoses Diagnosis Malignant Neoplasm Of Supraglottic (HCC) documented in this encounter
--- OUTSIDE RECORDS SUMMARY | 2022-04-07 09:40 | XMS_ITS | Encounter Summary ---
:1955 Author Organization [facility] Address [address] [place] [address] Care Team Providers Name Role Phone Unavailable Primary Care Provider Unavailable Reason for Visit Radiation Therapy (Routine) - Closed Specialty Diagnoses / Procedures Referred By Contact Refer red To Contact Diagnoses Malignant Neoplasm Of Supraglottic (HCC) Ursula Aguirre M.D. [facility] Procedures Prior Auth Rad Tx [place] IMRT COMPLEX [address] [place] [phone] Referral ID Status Reason Start Date Expiration Date Visits Requ ested Visits Authorized [id number] Closed 03/15/2019 03/14/2020 35 35 Encounter Details Date Type Department Care Team Description 04/25/2019 Hospital Encounter Department of Radiation Bud Aguirre I., [place]cology [place] [address] [facility] 1821 [place] [phone] Social History Tobacco Use Types Packs/Day Years [...] do you attend mormonism or Never 2018 gnosticism services? Do you [...] Radiology Mark Eastman M.D., M.S. [address] [place] [phone] 04/26/2022 Office Visit Otorhinolaryngology Roxanne Lanza APRN, C.N.P. [address] [place] [phone] 04/28/2022 Appointment Radiation Oncology Ursula Aguirre M.D. [address] [place] [phone] documented as of this encounter Visit Diagnoses Not on filedocumented in this encounter
--- OUTSIDE RECORDS SUMMARY | 2022-04-07 09:40 | XMS_ITS | Encounter Summary ---
:1955 Author Organization [facility] Address [address] [place] [address] Care Team Providers Name Role Phone Unavailable Primary Care Provider Unavailable Reason for Visit Radiation Therapy (Routine) - Closed Specialty Diagnoses / Procedures Referred By Contact Refer red To Contact Diagnoses Malignant Neoplasm Of Supraglottic (HCC) Ursula Aguirre M.D. [facility] Procedures Prior Auth Rad Tx [place] IMRT COMPLEX [address] [place] [phone] Referral ID Status Reason Start Date Expiration Date Visits Requ ested Visits Authorized [id number] Closed 03/15/2019 03/14/2020 35 35 Encounter Details Date Type Department Care Team Description 05/02/2019 Hospital Encounter Department of Radiation Bud Aguirre I., [place]cology [place] 200 [address] [facility] 1821 [place] [phone] Social History Tobacco Use Types Packs/Day Years [...] do you attend congregational or Never 2018 jainism services? Do you [...] Radiology Mark Eastman M.D., M.S. [address] [place] [address] [phone] 04/26/2022 Office Visit Otorhinolaryngology Roxanne Lanza APRN, C.N.P. [address] [place] [address] [phone] 04/28/2022 Appointment Radiation Oncology Ursula Aguirre M.D. [address] [place] [address] [phone] documented as of this encounter Visit Diagnoses Not on filedocumented in this encounter
--- OUTSIDE RECORDS SUMMARY | 2022-04-07 09:40 | XMS_ITS | Encounter Summary ---
:1955 Author Organization [facility] Address [address] [place] [address] Care Team Providers Name Role Phone Unavailable Primary Care Provider Unavailable Encounter Details Date Type Department Care Team Description 05/02/2019 Clinical Communication Department of Radiation Kareem Pérez, Oncology in [place], PMassiel, M.S. [address] [place] [address] [phone] Social History Tobacco Use Types Packs/Day Years [...] do you attend advent or Never 2018 jehovah's witness services? Do [...] Radiology Mark Eastman M.D., M.S. [address] [place] [phone] 04/26/2022 Office Visit Otorhinolaryngology Roxanne Lanza, SERVICE TEAM LEADER, C.N.P. [address] [place] [phone] 04/28/2022 Appointment Radiation Oncology Ursula Aguirre M.D. [address] [place] [address] [phone] documented as of this encounter Visit Diagnoses Not on filedocumented in this encounter
--- OUTSIDE RECORDS SUMMARY | 2022-04-07 09:40 | XMS_ITS | Encounter Summary ---
:1955 Author Organization [facility] Address [address] [place] [address] Care Team Providers Name Role Phone Unavailable Primary Care Provider Unavailable Reason for Referral Radiation Therapy (Routine) - Canceled Specialty Diagnoses / Procedures Referred By Contact Refer red To Contact Diagnoses Malignant Neoplasm Of Supraglottic (HCC) Ursula Aguirre M.D. [facility] Procedures Management Visit [address] [place], [place] [phone] Referral ID Status Reason Start Date Expiration Date Visits V isits Requested Authorized [id number] Canceled 04/09/2019 04/08/2020 10 10 Reason for Visit Radiation Therapy (Routine) - Canceled Specialty Diagnoses / Procedures Referred By Contact Refer red To Contact Diagnoses Malignant Neoplasm Of Supraglottic (HCC) Ursula Aguirre M.D. [facility] Region Procedures Management Visit [address] [place] [address] Referral ID Status Reason Start Date Expiration Date Visits V isits Requested Authorized [id number] Canceled 04/09/2019 04/08/2020 10 10 Encounter Details Date Type Department Care Team Description 04/27/2019 Hospital Encounter Department of Chucky Menchaca Neoplasm Of Radiation Oncology Kimberley Crabtree Supraglottic (HCC) in [place] [address] [address] [place], [place] 1821 [facility] [address] [place], [place] [phone] (Work) [phone] Social History Tobacco Use Types Packs/Day Years [...] do you attend confucianism or Never 2018 moravian services? Do you [...] Chew 81 mg every 0 tablet evening. [employer] Aspirin diaper,brief,adult,disposab Bag: (36 each) 36 each [...] by mouth. She denies fevers or chills. [place] butter is being applied to the treatment [...] erythema. No definite cellulitis. Chucky Menchaca MD [facility] Radiation Therapy [place], [place] documented in this encounter Plan of Treatment Upcoming Encounters Date Type Specialty Care Team Description 04/22/2022 Clinical Admitting/Central Communication Scheduling 04/26/2022 Appointment Radiology Mark Eastman M.D., M.S. [address] [place] [phone] 04/26/2022 Office Visit Otorhinolaryngology Roxanne Lanza APRN, C.N.P. [address] [place] [phone] 04/28/2022 Appointment Radiation Oncology Ursula Aguirre M.D. [address] [place] [phone] Scheduled Orders Name Type Priority Associated Diagnoses Order S chedule Management Visit Radiation Oncology Routine Malignant Neoplasm Of Once for 1 Supraglottic (HCC) Occurrenc es starting 04/27/2019 unti l 04/27/2019 documented as of this encounter Visit Diagnoses Diagnosis Malignant Neoplasm Of Supraglottic (HCC) documented in this encounter
--- OUTSIDE RECORDS SUMMARY | 2022-04-07 09:40 | XMS_ITS | Encounter Summary ---
:1955 Author Organization [facility] Address [address] [place] [address] Care Team Providers Name Role Phone Unavailable Primary Care Provider Unavailable Encounter Details Date Type Department Care Team Description 04/26/2019 Orders Only Department of Radiation Summer Pérez P.A .-C., Oncology in [facility] [address] [facility] [address] [place] [phone] (Wo rk) Social History Tobacco Use Types [...] do you attend islam or Never 2018 islam services? Do you [...] Radiology Mark Eastman M.D., M.S. [address] [place] [phone] 04/26/2022 Office Visit Otorhinolaryngology Roxanne Lanza APRN, C.N.P. [address] [place] [phone] 04/28/2022 Appointment Radiation Oncology Ursula Aguirre M.D. [address] [place] [phone] documented as of this encounter Visit Diagnoses Not on filedocumented in this encounter
--- OUTSIDE RECORDS SUMMARY | 2022-04-07 09:40 | XMS_ITS | Encounter Summary ---
:1955 Author Organization [facility] Address [address] [place] [address] Care Team Providers Name Role Phone Unavailable Primary Care Provider Unavailable Reason for Referral Radiation Therapy (Routine) - Canceled Specialty Diagnoses / Procedures Referred By Contact Refer red To Contact Diagnoses Malignant Neoplasm Of Supraglottic (HCC) Ursula Aguirre M.D. [facility] Procedures Management Visit [address] [place] [address] [phone] Referral ID Status Reason Start Date Expiration Date Visits V isits Requested Authorized [id number] Canceled 03/15/2019 03/14/2020 1 1 Reason for Visit Radiation Therapy (Routine) - Canceled Specialty Diagnoses / Procedures Referred By Contact Refer red To Contact Diagnoses Malignant Neoplasm Of Supraglottic (HCC) Ursula Aguirre M.D. [facility] Procedures Management Visit [address] [place] [phone] Referral ID Status Reason Start Date Expiration Date Visits V isits Requested Authorized [id number] Canceled 03/15/2019 03/14/2020 1 1 Encounter Details Date Type Department Care Team Description 04/24/2019 Hospital Encounter Department of Peter Schultz Neoplasm Of Radiation Oncology Jose Serna M.D. Supraglottic (HCC) in [place], [address] [place], [place] 1821 [facility] [address] [place], [place] [phone] (Work) [phone] Social History Tobacco Use Types Packs/Day Years [...] do you attend restorationist or Never 2018 muslim services? Do you [...] Chew 81 mg every 0 tablet evening. CaroGen Aspirin diaper,brief,adult,disposab Bag: (36 each) 36 each [...] She denies tightening of the jaw area. [place] butter is being applied to the treatment [...] by: Jose Schultz M.D. 04/24/2019 4:46 PM [facility] [address] [place] [address] documented in this encounter Plan of Treatment Upcoming Encounters Date Type Specialty Care Team Description 04/22/2022 Clinical Admitting/Central Communication Scheduling 04/26/2022 Appointment Radiology Mark Eastman M.D., M.S. [address] [place] [address] 04/26/2022 Office Visit Otorhinolaryngology Roxanne Lanza APRN, C.N.P. [address] [place] [phone] 04/28/2022 Appointment Radiation Oncology Ursula Aguirre M.D. [address] [place] [phone] Scheduled Orders Name Type Priority Associated Diagnoses Order S chedule Management Visit Radiation Oncology Routine Malignant Neoplasm Of Once for 1 Supraglottic (HCC) Occurrenc es starting 04/24/2019 unti l 04/24/2019 documented as of this encounter Visit Diagnoses Diagnosis Malignant Neoplasm Of Supraglottic (HCC) documented in this encounter
--- OUTSIDE RECORDS SUMMARY | 2022-04-07 09:40 | XMS_ITS | Encounter Summary ---
:1955 Author Organization [facility] Address [address] [place] [address] Care Team Providers Name Role Phone Unavailable Primary Care Provider Unavailable Reason for Referral Outpatient (Routine) - Closed Specialty Diagnoses / Procedures Referred By Contact Refer red To Contact Nutrition Diagnoses Malignant Neoplasm Of Supraglottic (HCC) Summer Pérez P.A.-C., INDRA [facility] [address] [place] [phone] Referral ID Status Reason Start Date Expiration Date Visits Requ ested Visits Authorized [id number] Closed 03/29/2019 03/28/2020 1 1 Reason for Visit Outpatient (Routine) - Closed Specialty Diagnoses / Procedures Referred By Contact Refer red To Contact Nutrition Diagnoses Malignant Neoplasm Of Supraglottic (HCC) Summer [facility]rez P.A.-C., [facility] [address] [place] [phone] Referral ID Status Reason Start Date Expiration Date Visits Requ ested Visits Authorized [id number] Closed 03/29/2019 03/28/2020 1 1 Encounter Details Date Type Department Care Team Description 04/26/2019 Hospital Encounter Department of Summer Pérez P.A.-C., M.S. [address] [place] [phone] Malignant Neoplasm Of Radiation Oncology Ryanne Mcbride, JUANITO [address] [place] [address] Supraglottic (HCC) in [place], [place] [address] [place] [address] Social History Tobacco Use Types [...] do you attend scientologist or Never 2018 jewish services? 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 They delivered supplies 04/18/19. ?? Indication for [...] Radiology Mark Eastman M.D., M.S. [address] [place] [phone] 04/26/2022 Office Visit Otorhinolaryngology Roxanne Lanza APRN, C.N.P. [address] [place] [phone] 04/28/2022 Appointment Radiation Oncology Ursula Aguirre M.D. 200 [place] [address] Scheduled Referrals Name Type Priority Associated Diagnoses Order S chedule Nutrition - Outpatient Referral Routine Malignant Neoplasm On ce for 1 Medical nutrition Of Supraglottic Occurre nces therapy consult (HCC) starting 07/2019 (clinic) until 9 documented as of this encounter Visit Diagnoses Diagnosis Malignant Neoplasm Of Supraglottic (HCC) documented in this encounter
--- OUTSIDE RECORDS SUMMARY | 2022-04-07 09:40 | XMS_ITS | Encounter Summary ---
:1955 Author Organization [facility] Address [address] [place] [address] Care Team Providers Name Role Phone Unavailable Primary Care Provider Unavailable Reason for Visit Radiation Therapy (Routine) - Closed Specialty Diagnoses / Procedures Referred By Contact Refer red To Contact Diagnoses Malignant Neoplasm Of Supraglottic (HCC) Ursula Aguirre M.D. [facility] Procedures Prior Auth Rad Tx CT IMRT COMPLEX [address] [place] [phone] Referral ID Status Reason Start Date Expiration Date Visits Requ ested Visits Authorized [id number] Closed 03/15/2019 03/14/2020 35 35 Encounter Details Date Type Department Care Team Description 04/25/2019 Hospital Encounter Department of Radiation Bud Aguirre I., [place]cology [place] [address] [facility] [address] [place] [phone] Social History Tobacco Use Types Packs/Day Years [...] do you attend mormonism or Never 2018 alevism services? Do you [...] Radiology Mark Eastman M.D., M.S. [address] [place] [phone] 04/26/2022 Office Visit Otorhinolaryngology Roxanne Lanza APRN, C.N.P. [address] [place] [phone] 04/28/2022 Appointment Radiation Oncology Ursula Aguirre M.D. [address] [place] [phone] documented as of this encounter Visit Diagnoses Not on filedocumented in this encounter
--- OUTSIDE RECORDS SUMMARY | 2022-04-07 09:40 | XMS_ITS | Encounter Summary ---
:1955 Author Organization [facility] Address [address] [place] [address] Care Team Providers Name Role Phone Unavailable Primary Care Provider Unavailable Reason for Visit Radiation Therapy (Routine) - Closed Specialty Diagnoses / Procedures Referred By Contact Refer red To Contact Diagnoses Malignant Neoplasm Of Supraglottic (HCC) Ursula Aguirre M.D. [facility] Procedures Prior Auth Rad Tx [place] IMRT COMPLEX [address] [place] [phone] Referral ID Status Reason Start Date Expiration Date Visits Requ ested Visits Authorized [id number] Closed 03/15/2019 03/14/2020 35 35 Encounter Details Date Type Department Care Team Description 05/01/2019 Hospital Encounter Department of Radiation Bud Aguirre I., [place] [address] [facility] 18[address] [place] [phone] Social History Tobacco Use Types Packs/Day Years [...] do you attend restorationism or Never 2018 synagogue services? Do you [...] Radiology Mark Eastman M.D., M.S. [address] [place] [phone] 04/26/2022 Office Visit Otorhinolaryngology Roxanne Lanza APRN, C.N.P. [address] [place] [phone] 04/28/2022 Appointment Radiation Oncology Ursula Aguirre M.D. [address] [place] [phone] documented as of this encounter Visit Diagnoses Not on filedocumented in this encounter
--- OUTSIDE RECORDS SUMMARY | 2022-04-07 09:40 | XMS_ITS | Encounter Summary ---
:1955 Author Organization [facility] Address [address] [place] [address] Care Team Providers Name Role Phone Unavailable Primary Care Provider Unavailable Reason for Referral Outpatient (Routine) - Closed Specialty Diagnoses / Procedures Referred By Contact Refer red To Contact Nutrition Diagnoses Malignant Neoplasm Of Supraglottic (HCC) Summer Pérez P.A.-C., INDRA [facility] [address] [place] [phone] Referral ID Status Reason Start Date Expiration Date Visits Requ ested Visits Authorized [id number] Closed 03/29/2019 03/28/2020 1 1 Reason for Visit Outpatient (Routine) - Closed Specialty Diagnoses / Procedures Referred By Contact Refer red To Contact Nutrition Diagnoses Malignant Neoplasm Of Supraglottic (HCC) Summer Pérez P.A.-C., [facility] [address] [place] [phone] Referral ID Status Reason Start Date Expiration Date Visits Requ ested Visits Authorized [id number] Closed 03/29/2019 03/28/2020 1 1 Encounter Details Date Type Department Care Team Description 05/03/2019 Hospital Encounter Department of Summer Pérez P.A.-C., M.S. [address] [place] [phone] Malignant Neoplasm Of Radiation Oncology Ryanne Mcbride, JUANITO [address] [place] [address] Supraglottic (HCC) in [place], [place] 182 [place] [address] Social History Tobacco Use Types [...] do you attend cheondoism or Never 2018 samaritan services? Do you [...] Chew 81 mg every 0 tablet evening. 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 Food/Nutrient Related [...] that will provide needed supplies for home: ??[place]??. They delivered supplies??04/18/19. ?? Indication for Ongoing [...] 04/26/2022 Appointment Radiology Mark Eastman M.D., M.S. [address] [place] [phone] 04/26/2022 Office Visit Otorhinolaryngology Roxanne Lanza APRN, C.N.P. [address] [place] [address] 04/28/2022 Appointment Radiation Oncology Ursula Aguirre M.D. [address] [place] [phone] Scheduled Referrals Name Type Priority Associated Diagnoses Order S chedule Nutrition - Outpatient Referral Routine Malignant Neoplasm On ce for 1 Medical nutrition Of Supraglottic Occurre nces therapy consult (HCC) starting (clinic) until 9 documented as of this encounter Visit Diagnoses Diagnosis Malignant Neoplasm Of Supraglottic (HCC) documented in this encounter
--- OUTSIDE RECORDS SUMMARY | 2022-04-07 09:40 | XMS_ITS | Encounter Summary ---
:1955 Author Organization [facility] Address [address] [place] [address] Care Team Providers Name Role Phone Unavailable Primary Care Provider Unavailable Reason for Visit Radiation Therapy (Routine) - Closed Specialty Diagnoses / Procedures Referred By Contact Refer red To Contact Diagnoses Malignant Neoplasm Of Supraglottic (HCC) Ursula Aguirre M.D. [facility] Procedures Prior Auth Rad Tx [place] IMRT COMPLEX [address] [place] [phone] Referral ID Status Reason Start Date Expiration Date Visits Requ ested Visits Authorized [id number] Closed 03/15/2019 03/14/2020 35 35 Encounter Details Date Type Department Care Team Description 04/26/2019 Hospital Encounter Department of Radiation Bud Aguirre I., [place] [address] [facility] [address] [place] [phone] Social History Tobacco Use Types Packs/Day Years [...] you attend jehovah's witness or Never 2018 jew services? Do you [...] Radiology Mark Eastman M.D., M.S. [address] [place] [phone] 04/26/2022 Office Visit Otorhinolaryngology Roxanne Lanza APRN, C.N.P. [address] [place] [phone] 04/28/2022 Appointment Radiation Oncology Ursula Aguirre M.D. [address] [place] [phone] documented as of this encounter Visit Diagnoses Not on filedocumented in this encounter
--- OUTSIDE RECORDS SUMMARY | 2022-04-07 09:41 | XMS_ITS | Encounter Summary ---
:[address] [facility] Address [address] [place] [address] Care Team Providers Name Role Phone Unavailable Primary Care Provider Unavailable Reason for Visit Reason Onset Date Comments Feeding Tube 04/20/2019 Encounter Details Date Type Department Care Team Description 04/20/2019 Clinical Communication Division of Padma Vieira Feeding Tube Endocrinology in [place], AMAYA, C.N.P.[facility] [address] [place] [address] [place] [phone] Social History Tobacco Use Types Packs/Day Years [...] do you attend worship or Never 2018 rastafarian services? Do you [...] Radiology Mark Eastman M.D., M.S. [address] [place] [phone] 04/26/2022 Office Visit Otorhinolaryngology Roxanne Lanza, GROUP THERAPY COUNSELOR, C.N.P. [address] [place] [phone] 04/28/2022 Appointment Radiation Oncology Ursula Aguirre M.D. [address] [place] [phone] documented as of this encounter Visit Diagnoses Not on filedocumented in this encounter
--- OUTSIDE RECORDS SUMMARY | 2022-04-07 09:41 | XMS_ITS | Encounter Summary ---
:1955 Author Organization [facility] Address [address] [place] [address] Care Team Providers Name Role Phone Unavailable Primary Care Provider Unavailable Reason for Visit Outpatient (Routine) - Closed Specialty Diagnoses / Procedures Referred By Contact Refer red To Contact Endocrinology Diagnoses Malignant Neoplasm Of Supraglottic (HCC) Lara Castellanos, [facility] AMAYA, C.N.P. [address] [place] [phone] Referral ID Status Reason Start Date Expiration Date Visits Requ ested Visits Authorized [id number] Closed 04/13/2019 04/12/2020 1 1 Encounter Details Date Type Department Care Team Description 04/18/2019 Comprehensive Visit Division of Lara Castellanos APRN, C.N.P. [address] [place] [phone] Dysphagia (Primary Dx); Endocrinology in [place] Vieira APRN, C.N.P., M.S. [address] [place] [phone] Malignant Neoplasm Of Supraglottic (HCC) ; [place], [place] Home Enteral Nutrition [address] [place] [phone] Social History Tobacco Use Types Packs/Day Years [...] do you attend evangelical or Never 2018 bahai services? Do you [...] Radiology Mark Eastman M.D., M.S. [address] [place] [phone] 04/26/2022 Office Visit Otorhinolaryngology Roxanne Lanza APRN, C.NShitalPShital [address] [place] [phone] 04/28/2022 Appointment Radiation Oncology Ursula Aguirre M.D. [address] [place] [address] documented as of this encounter Visit Diagnoses Diagnosis Dysphagia - Primary Malignant Neoplasm Of Supraglottic (HCC) Home Enteral Nutrition documented in this encounter
--- OUTSIDE RECORDS SUMMARY | 2022-04-07 09:41 | XMS_ITS | Encounter Summary ---
:1955 Author Organization [facility] Address [address] [place] [address] Care Team Providers Name Role Phone Unavailable Primary Care Provider Unavailable Encounter Details Date Type Department Care Team Description 04/23/2019 Hospital Encounter Department of [facility] Laboratory Medicine Lara José APRN, Nutri tion in [facility] [address] [facility] [address] [place] [phone] [phone] Social History Tobacco Use Types Packs/Day Years [...] do you attend bahai or Never 2018 uatsdin services? Do you [...] Radiology Mark Eastman M.D., M.S. [address] [place] [phone] 04/26/2022 Office Visit Otorhinolaryngology Roxanne Lanza APRN, C.N.P. [address] [place] [phone] 04/28/2022 Appointment Radiation Oncology Ursula Aguirre M.D. [address] [place] [phone] documented as of this encounter Procedures Procedure [...] Organization Address City/State/ZIP Code Phon e Number [facility] [address] [place] [address] LAB Phosphorus Inorganic (04/23/2019 9:42 AM CDT) athologist Signature Phosphorus 3.2 2.5 - 4.5 04/23/2019 (Inorganic), S mg/dL 4:17 PM CDT Specimen Anatomical Collection Method Collection Time Receive d Time (Source) Location / / Volume Laterality Blood (Blood, 04/23/2019 9:42 AM 04/23/20 19 4:04 Venous) CDT PM CDT Lara Castellanos APRN, Estefanía.N.P. LAB BLOOD ADD-ON Performing Organization Address City/State/ZIP Code Phon e Number [facility] [address] [place] [address] [place] LAB Magnesium (04/23/2019 9:42 AM CDT) athologist Signature Magnesium, S 2.0 1.7 - 2.3 04/23/2019 mg/dL 1:58 PM CDT Specimen Anatomical Collection Method Collection Time Receive d Time (Source) Location / / Volume Laterality Blood (Blood, 04/23/2019 9:42 AM 04/23/20 19 1:12 Venous) CDT PM CDT Estefanía Patel APRN.N.P. LAB BLOOD ADD-ON Performing Organization Address City/State/ZIP Code Phon e Number [facility] [address] [place] [address] LAB documented in this encounter Visit Diagnoses Diagnosis Home Enteral Nutrition documented in this encounter
--- OUTSIDE RECORDS SUMMARY | 2022-04-07 09:41 | XMS_ITS | Encounter Summary ---
:1955 Author Organization [facility] Address [address] [place] [address] Care Team Providers Name Role Phone Unavailable Primary Care Provider Unavailable Reason for Referral Outpatient (Routine) - Canceled Specialty Diagnoses / Procedures Referred By Contact Refer red To Contact Radiation Oncology Diagnoses Malignant Neoplasm Of Supraglottic (HCC) Ursula Aguirre [facility] [place] [facility] M.D. 200 [place] [address] Referral ID Status Reason Start Date Expiration Date Visits V isits Requested Authorized [id number] Canceled 03/15/2019 03/14/2020 1 1 Reason for Visit Outpatient (Routine) - Canceled Specialty Diagnoses / Procedures Referred By Contact Refer red To Contact Radiation Oncology Diagnoses Malignant Neoplasm Of Supraglottic (HCC) Ursula Aguirre [facility] [place] [facility] M.D. 200 [place] [address] Referral ID Status Reason Start Date Expiration Date Visits V isits Requested Authorized [id number] Canceled 03/15/2019 03/14/2020 1 1 Encounter Details Date Type Department Care Team Description 04/23/2019 Hospital Encounter Department of Mary Aguirre M.D. [address] [place] [phone] Malignant Neoplasm Of Radiation Oncology Jannet Cross R.N. 200 [place] [address] Supraglottic (HCC) in [place], [place] [address] [place] [address] Social History Tobacco Use Types Packs/Day Years [...] do you attend jewish or Never 2018 yarsani services? Do you [...] Radiology Mark Eastman M.D., M.S. [address] [place] [phone] 04/26/2022 Office Visit Otorhinolaryngology Roxanne Lanza, METAL BUILDINGS ASSEMBLER, C.N.P. [address] [place] [phone] 04/28/2022 Appointment Radiation Oncology Ursula Aguirre M.D. [address] [place] [phone] Scheduled Referrals Name Type Priority Associated Diagnoses Order S chedule Radiation Oncology Outpatient Referral Routine Malignant Neopl asm Once for 1 nurse visit Of Supraglottic Occurrences (clinic) (HCC) starting 2018 until 9 documented as of this encounter Visit Diagnoses Diagnosis Malignant Neoplasm Of Supraglottic (HCC) documented in this encounter
--- OUTSIDE RECORDS SUMMARY | 2022-04-07 09:41 | XMS_ITS | Encounter Summary ---
:1955 Author Organization [facility] Address [address] [place] [address] Care Team Providers Name Role Phone Unavailable [...] do you attend anabaptist or Never 2018 samaritan services? Do you [...] minutes do you engage in exercise at [facility] 0 min 02/21/2019 level? Stress Answer [...] Radiology Mark Eastman M.D., M.S. [address] [place] [phone] 04/26/2022 Office Visit Otorhinolaryngology Roxanne Lanza APRN, C.N.P. [address] [place] [phone] 04/28/2022 Appointment Radiation Oncology Ursula Aguirre M.D. [address] [place] [phone] documented as of this encounter Procedures Procedure [...]
--- OUTSIDE RECORDS SUMMARY | 2022-04-07 09:41 | XMS_ITS | Encounter Summary ---
:1955 Author Organization [facility] Address [address] [place] [address] Care Team Providers Name Role Phone Unavailable Primary Care Provider Unavailable Reason for Referral Outpatient (Routine) - Closed Specialty Diagnoses / Procedures Referred By Contact Refer red To Contact Nutrition Diagnoses Malignant Neoplasm Of Supraglottic (HCC) Summer Pérez P.A.-C., [facility] [address] [place] [phone] Referral ID Status Reason Start Date Expiration Date Visits Requ ested Visits Authorized [id number] Closed 03/29/2019 03/28/2020 1 1 Reason for Visit Outpatient (Routine) - Closed Specialty Diagnoses / Procedures Referred By Contact Refer red To Contact Nutrition Diagnoses Malignant Neoplasm Of Supraglottic (HCC) Summer Pérez P.A.-C., [facility] [address] [place] [phone] Referral ID Status Reason Start Date Expiration Date Visits Requ ested Visits Authorized [id number] Closed 03/29/2019 03/28/2020 1 1 Encounter Details Date Type Department Care Team Description 04/19/2019 Hospital Encounter Department of Summer Pérez P.A.-C., M.S. [address] [place] [phone] Malignant Neoplasm Of Radiation Oncology Ryanne Mcbride, JUANITO [address] [place] [address] Supraglottic (HCC) in [place], [place] [address] [place] [address] Social History Tobacco Use Types [...] do you attend christian or Never 2018 spiritism services? Do you [...] Met with patient, her son and 2 arctxeiyq-rp-gga. Patient is hard of hearing and reads lips. For phone contact Merlin (son) states, his Darlin is the one to call, . ?? 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 Food/Nutrient Related [...] Nutren 1.5 given over 10 minutes in [place] before discharge, and another 1/2 carton at [...] that will provide needed supplies for home: [employer] . They delivered supplies 04/18/19. ?? Indication [...] Radiology Mark Eastman M.D., M.S. [address] [place] [address] 04/26/2022 Office Visit Otorhinolaryngology Roxanne Lanza, HISTOPATHOLOGY TECHNICIAN, C.N.P. [address] [place] [phone] 04/28/2022 Appointment Radiation Oncology Ursula Aguirre M.D. [address] [place] [address] Scheduled Referrals Name Type Priority Associated Diagnoses Order S chedule Nutrition - Outpatient Referral Routine Malignant Neoplasm On ce for 1 Medical nutrition Of Supraglottic Occurre nces therapy consult (HCC) starting 12/2018 (clinic) until 9 documented as of this encounter Visit Diagnoses Diagnosis Malignant Neoplasm Of Supraglottic (HCC) documented in this encounter
--- OUTSIDE RECORDS SUMMARY | 2022-04-07 09:41 | XMS_ITS | Encounter Summary ---
:1955 Author Organization [facility] Address [address] [place] [address] Care Team Providers Name Role Phone Unavailable Primary Care Provider Unavailable Encounter Details Date Type Department Care Team Description 04/20/2019 Orders Only Division of Estrada Castellanos [facility] Endocrinology in Lara José APRN, Nutritio n (Primary [place], [place] C.N.P. Dx) [address] [facility] [address] [place] [address] [place], [place] [phone] Social History Tobacco Use Types Packs/Day Years [...] do you attend faith or Never 2018 religion services? Do you [...] Radiology Mark Eastman M.D., M.S. [address] [place] [phone] 04/26/2022 Office Visit Otorhinolaryngology Roxanne Lanza, FIELD CROP II FARMWORKER, C.N.P. [address] [place] [phone] 04/28/2022 Appointment Radiation Oncology Ursula Aguirre M.D. [address] [place] [address], [place] [phone] documented as of this encounter Results Potassium [...] Organization Address City/State/ZIP Code Phon e Number [facility] [address] [place] [address] LAB Phosphorus Inorganic (04/23/2019 9:42 AM CDT) athologist Signature Phosphorus 3.2 2.5 - 4.5 04/23/2019 (Inorganic), S mg/dL 4:17 PM CDT Specimen Anatomical Collection Method Collection Time Receive d Time (Source) Location / / Volume Laterality Blood (Blood, 04/23/2019 9:42 AM 04/23/20 19 4:04 Venous) CDT PM CDT Lara Castellanos APRN, C.N.P. LAB BLOOD ADD-ON Performing Organization Address City/State/ZIP Code Phon e Number [facility] [address] [place] [address] [place] LAB Magnesium (04/23/2019 9:42 AM CDT) athologist Signature Magnesium, S 2.0 1.7 - 2.3 04/23/2019 mg/dL 1:58 PM CDT Specimen Anatomical Collection Method Collection Time Receive d Time (Source) Location / / Volume Laterality Blood (Blood, 04/23/2019 9:42 AM 04/23/20 19 1:12 Venous) CDT PM CDT Lara Castellanos APRN, C.N.P. LAB BLOOD ADD-ON Performing Organization Address City/State/ZIP Code Phon e Number [facility] [address] [place] [address] LAB documented in this encounter Visit Diagnoses Diagnosis Home Enteral Nutrition - Primary documented in this encounter
--- OUTSIDE RECORDS SUMMARY | 2022-04-07 09:41 | XMS_ITS | Encounter Summary ---
:1955 Author Organization [facility] Address [address] [place] [address] Care Team Providers Name Role Phone Unavailable Primary Care Provider Unavailable Reason for Referral Radiation Therapy (Routine) - Canceled Specialty Diagnoses / Procedures Referred By Contact Refer red To Contact Diagnoses Malignant Neoplasm Of Supraglottic (HCC) Ursula Aguirre M.D. [facility] Procedures Management Visit [address] [place] [address] [phone] Referral ID Status Reason Start Date Expiration Date Visits V isits Requested Authorized [id number] Canceled 04/09/2019 04/08/2020 10 10 Reason for Visit Radiation Therapy (Routine) - Canceled Specialty Diagnoses / Procedures Referred By Contact Refer red To Contact Diagnoses Malignant Neoplasm Of Supraglottic (HCC) Ursula Aguirre M.D. [facility] Region Procedures Management Visit [address] [place] [address] [phone] Referral ID Status Reason Start Date Expiration Date Visits V isits Requested Authorized [id number] Canceled 04/09/2019 04/08/2020 10 10 Encounter Details Date Type Department Care Team Description 04/23/2019 Hospital Encounter Department of Ursula Aguirre Neoplasm Of Radiation Oncology Kimberley Bacon Supraglottic (HCC) in [place], [address] [place], [place] 1821 [facility] [address] [place], [place] [phone] (Work) [phone] Social History Tobacco Use Types Packs/Day Years [...] do you attend buddhist or Never 2018 buddhism services? Do you [...] Radiology Mark Eastman M.D., M.S. [address] [place] [phone] 04/26/2022 Office Visit Otorhinolaryngology Roxanne Lanza, BIAS CUTTING MACHINE OPERATOR, C.N.P. [address] [place] [phone] 04/28/2022 Appointment Radiation Oncology Ursula Aguirre M.D. [address] [place] [phone] Scheduled Orders Name Type Priority Associated Diagnoses Order S chedule Management Visit Radiation Oncology Routine Malignant Neoplasm Of Once for 1 Supraglottic (HCC) Occurrenc es starting 04/23/2019 unti l 04/23/2019 documented as of this encounter Visit Diagnoses Diagnosis Malignant Neoplasm Of Supraglottic (HCC) documented in this encounter
--- OUTSIDE RECORDS SUMMARY | 2022-04-07 09:41 | XMS_ITS | Encounter Summary ---
:1955 Author Organization [facility] Address [address] [place] [address] Care Team Providers Name Role Phone Unavailable Primary Care Provider Unavailable Reason for Visit Reason Comments Outpatient Infusion thiamine Encounter Details Date Type Department Care Team Description 04/18/2019 Infusion Department of Infusion Lara Castellanos Malignant Neoplasm Of Therapy in [facility], PRODUCTION CELL LEADER, C .N.P. Supraglottic (HCC) [address] (Primary Dx) [address] [place] [phone] Social History Tobacco Use Types Packs/Day Years [...] do you attend catholic or Never 2018 hinduism services? Do you [...] Radiology Mark Eastman M.D., M.S. [address] [place] [address] [place] [phone] 04/26/2022 Office Visit Otorhinolaryngology Roxanne Lanza APRN, C.N.P. [address] [place] [phone] 04/28/2022 Appointment Radiation Oncology Ursula Aguirre M.D. [address] [place] [phone] documented as of this encounter Visit Diagnoses [...] daily x 3 days, 04/17-04/19. 04/17-04/18 in [facility], 04/19 in [facility]. documented in this encounter
--- OUTSIDE RECORDS SUMMARY | 2022-04-07 09:41 | XMS_ITS | Encounter Summary ---
:1955 Author Organization [facility] Address [address] [place] [address] Care Team Providers Name Role Phone Unavailable Primary Care Provider Unavailable Reason for Visit Radiation Therapy (Routine) - Closed Specialty Diagnoses / Procedures Referred By Contact Refer red To Contact Diagnoses Malignant Neoplasm Of Supraglottic (HCC) Ursula Aguirre M.D. [facility] Procedures Prior Auth Rad Tx [place] IMRT COMPLEX [address] [place] [phone] Referral ID Status Reason Start Date Expiration Date Visits Requ ested Visits Authorized [id number] Closed 03/15/2019 03/14/2020 35 35 Encounter Details Date Type Department Care Team Description 04/18/2019 Hospital Encounter Department of Radiation Bud Aguirre I., [place] [address] [facility] [address] [place] [phone] Social History Tobacco Use Types Packs/Day Years [...] do you attend episcopal or Never 2018 hindu services? Do you [...] Radiology Mark Eastman M.D., M.S. [address] [place] [phone] 04/26/2022 Office Visit Otorhinolaryngology Roxanne Lanza APRN, C.N.P. [address] [place] [phone] 04/28/2022 Appointment Radiation Oncology Ursula Aguirre M.D. [address] [place] [phone] documented as of this encounter Visit Diagnoses Not on filedocumented in this encounter
--- OUTSIDE RECORDS SUMMARY | 2022-04-07 09:41 | XMS_ITS | Encounter Summary ---
:1955 Author Organization [facility] Address [address] [place] [address] Care Team Providers Name Role Phone Unavailable Primary Care Provider Unavailable Encounter Details Date Type Department Care Team Description 04/17/2019 Documentation Division of Gastroenterology Lorenza [place], in [facility] guillaume Duff [address] [facility] [place] [phone] [place] [address] (Work) [phone] Social History Tobacco Use Types Packs/Day Years [...] you attend oriental orthodox or Never 2018 scientologist services? Do you [...] Narayan Department : DIVISION OF GASTROENTEROLOGY IN [place], [place] SUBJECTIVE Past Medical History: Diagnosis Date [...] week Gets together: Once a week Attends scientologist service: Never Active member of club or [...] on file OBJECTIVE Procedure Patient presents to [facility] 6 Patient being seen for: PEG (Solitario [...] Reading and Seeing Education: PEG/PEJ Wallet Card ([id number]) Supplies sent with patient: None T Fasteners located at 0900, 1000, and 1600. Skin disc kept slightly tighter than normal per Dr. Dodd. documented in this encounter Plan of Treatment Upcoming Encounters Date Type Specialty Care Team Description 04/22/2022 Clinical Admitting/Central Communication Scheduling 04/26/2022 Appointment Radiology Mark Eastman M.D., M.S. [address] [place] [phone] 04/26/2022 Office Visit Otorhinolaryngology Roxanne Lanza, COLOR CONTROL OPERATOR, C.N.P. [address] [place] [phone] 04/28/2022 Appointment Radiation Oncology Ursula Aguirre M.D. [address] [place] [phone] documented as of this encounter Visit Diagnoses Not on filedocumented in this encounter
--- OUTSIDE RECORDS SUMMARY | 2022-04-07 09:41 | XMS_ITS | Encounter Summary ---
:1955 Author Organization [facility] Address [address] [place] [address] Care Team Providers Name Role Phone Unavailable Primary Care Provider Unavailable Reason for Visit Radiation Therapy (Routine) - Closed Specialty Diagnoses / Procedures Referred By Contact Refer red To Contact Diagnoses Malignant Neoplasm Of Supraglottic (HCC) Ursula Aguirre M.D. [facility] Procedures Prior Auth Rad Tx [place] IMRT COMPLEX [address] [place] [phone] Referral ID Status Reason Start Date Expiration Date Visits Requ ested Visits Authorized [id number] Closed 03/15/2019 03/14/2020 35 35 Encounter Details Date Type Department Care Team Description 04/19/2019 Hospital Encounter Department of Radiation Bud Aguirre I., [place] [address] [facility] [address] [place] [phone] Social History Tobacco Use Types Packs/Day Years [...] Radiology Mark Eastman M.D., M.S. [address] [place] [phone] 04/26/2022 Office Visit Otorhinolaryngology Roxanne Lanza APRN, C.N.P. [address] [place] [phone] 04/28/2022 Appointment Radiation Oncology Ursula Aguirre M.D. [address] [place] [phone] documented as of this encounter Visit Diagnoses Not on filedocumented in this encounter
--- OUTSIDE RECORDS SUMMARY | 2022-04-07 09:41 | XMS_ITS | Encounter Summary ---
:1955 Author Organization [facility] Address [address] [place] [address] Care Team Providers Name Role Phone Unavailable Primary Care Provider Unavailable Reason for Visit Reason Comments Feeding Tube Encounter Details Date Type Department Care Team Description 04/18/2019 Clinical Support Division of Chapin Vieira APRN, C.N.P., M.S. [address] [place] [phone] Home Enteral Endocrinology in [facility] R.N. [address] [place] [phone] Nutrition [place], [place] [address] [place] [phone] Social History Tobacco Use Types Packs/Day Years [...] PEG tube Tube size: 20 Tube brand: auctionpoint Tube reference number: [id number] Connector type: Small [...] NA Special order tube: GI/IR supply chain manager notified? NA PLAN Were procedural instructions given? No Is there a procedure scheduled? None Is a return visit needed? As needed *Patient able to do site care and qkzdbhrg-wq-rvz Darlin assisted with rotation, as patient had trouble with that part. documented in this encounter Plan of Treatment Upcoming Encounters Date Type Specialty Care Team Description 04/22/2022 Clinical Admitting/Central Communication Scheduling 04/26/2022 Appointment Radiology Mark Eastman M.D., M.S. [address] [place] [phone] 04/26/2022 Office Visit Otorhinolaryngology Roxanne Lanza APRN, C.N.P. [address] [place] [phone] 04/28/2022 Appointment Radiation Oncology Ursula Aguirre M.D. [address] [place] [phone] documented as of this encounter Visit Diagnoses Diagnosis Home Enteral Nutrition documented in this encounter
--- OUTSIDE RECORDS SUMMARY | 2022-04-07 09:41 | XMS_ITS | Encounter Summary ---
:1955 Author Organization [facility] Address [address] [place] [address] Care Team Providers Name Role Phone Unavailable Primary Care Provider Unavailable Reason for Visit Radiation Therapy (Routine) - Closed Specialty Diagnoses / Procedures Referred By Contact Refer red To Contact Diagnoses Malignant Neoplasm Of Supraglottic (HCC) Ursula Aguirre M.D. [facility] Procedures Prior Auth Rad Tx [place] IMRT COMPLEX [address] [place] [phone] Referral ID Status Reason Start Date Expiration Date Visits Requ ested Visits Authorized [id number] Closed 03/15/2019 03/14/2020 35 35 Encounter Details Date Type Department Care Team Description 04/19/2019 Hospital Encounter Department of Radiation Bud Aguirre I., [place]cology [place] [address] [facility] [address] [place] [phone] Social History Tobacco Use Types Packs/Day Years [...] do you attend anabaptist or Never 2018 buddhist services? Do you [...] Radiology Mark Eastman M.D., M.S. [address] [place] [phone] 04/26/2022 Office Visit Otorhinolaryngology Roxanne Lanza APRN, C.N.P. [address] [place] [phone] 04/28/2022 Appointment Radiation Oncology Ursula Aguirre M.D. [address] [place] [phone] documented as of this encounter Visit Diagnoses Not on filedocumented in this encounter
--- OUTSIDE RECORDS SUMMARY | 2022-04-07 09:41 | XMS_ITS | Encounter Summary ---
:1955 Author Organization [facility] Address [address] [place] [address] Care Team Providers Name Role Phone Unavailable Primary Care Provider Unavailable Encounter Details Date Type Department Care Team Description 04/20/2019 Hospital Encounter Department of Peter Castellanos Neoplasm Of Laboratory Medicine Lara José APRN, Supra glottic (HCC) in [facility] [address] [facility] [address] [place] [phone] Social History Tobacco Use Types Packs/Day Years [...] do you attend catholic or Never 2018 adventism services? Do you [...] Radiology Mark Eastman M.D., M.S. [address] [place] [address] 04/26/2022 Office Visit Otorhinolaryngology Roxanne Lanza, STEEL PLATE CAULKER, C.N.P. [address] [place] [phone] 04/28/2022 Appointment Radiation Oncology Ursula Aguirre M.D. [address] [place] [address] documented as of this encounter Procedures Procedure [...] Organization Address City/State/ZIP Code Phon e Number [facility] [address] [place] [address] LAB Phosphorus Inorganic (04/20/2019 9:03 AM CDT) athologist Signature Phosphorus 3.3 2.5 - 4.5 04/20/2019 (Inorganic), S mg/dL 10:12 PM CDT Specimen Anatomical Collection Method Collection Time Receive d Time (Source) Location / / Volume Laterality Blood (Blood, 04/20/2019 9:03 AM 04/20/20 19 9:37 Venous) CDT PM CDT Lara Castellanos APRN, C.N.P. LAB BLOOD ADD-ON Performing Organization Address City/State/ZIP Code Phon e Number [facility] [address] [place] [address] [place] LAB Potassium (04/20/2019 9:03 AM CDT) athologist Signature Potassium, S 4.2 3.6 - 5.2 04/20/2019 mmol/L 10:19 AM CDT Specimen Anatomical Collection Method Collection Time Receive d Time (Source) Location / / Volume Laterality Blood (Blood, 04/20/2019 9:03 AM 04/20/20 19 9:11 Venous) CDT AM CDT Lara Castellanos APRN, C.N.P. LAB BLOOD ADD-ON Performing Organization Address City/State/ZIP Code Phon e Number [facility] [address] [place] [address] LAB documented in this encounter Visit Diagnoses Diagnosis Malignant Neoplasm Of Supraglottic (HCC) documented in this encounter
--- OUTSIDE RECORDS SUMMARY | 2022-04-07 09:41 | XMS_ITS | Encounter Summary ---
:1955 Author Organization [facility] Address [address] [place] [address] Care Team Providers Name Role Phone Unavailable Primary Care Provider Unavailable Encounter Details Date Type Department Care Team Description 04/18/2019 Orders Only Department of Emy Kuhn Malignan t Neoplasm Of Supraglottic (HCC) (Primary Dx); Nutrition in RDN, LD Gastrostomy Status (HCC); [place], [place] 200 [facility] Dysphagia Oropharyngeal Phase 200 [place] [phone] Social History Tobacco Use Types Packs/Day Years [...] do you attend pentecostal or Never 2018 methodist services? Do you [...] Radiology Mark Eastman M.D., M.S. [address] [place] [phone] 04/26/2022 Office Visit Otorhinolaryngology Roxanne Lanza APRN, C.N.P. [address] [place] [phone] 04/28/2022 Appointment Radiation Oncology Ursula Aguirre M.D. [address] [place] [phone] documented as of this encounter Visit Diagnoses Diagnosis Malignant Neoplasm Of Supraglottic (HCC) - Primary Gastrostomy Status (HCC) Dysphagia Oropharyngeal Phase documented in this encounter
--- OUTSIDE RECORDS SUMMARY | 2022-04-07 09:41 | XMS_ITS | Encounter Summary ---
:1955 Author Organization [facility] Address [address] [place] [address] Care Team Providers Name Role Phone Unavailable Primary Care Provider Unavailable Reason for Visit Radiation Therapy (Routine) - Closed Specialty Diagnoses / Procedures Referred By Contact Refer red To Contact Diagnoses Malignant Neoplasm Of Supraglottic (HCC) Ursula Aguirre M.D. [facility] Procedures Prior Auth Rad Tx [place] IMRT COMPLEX [address] [place] [phone] Referral ID Status Reason Start Date Expiration Date Visits Requ ested Visits Authorized [id number] Closed 03/15/2019 03/14/2020 35 35 Encounter Details Date Type Department Care Team Description 04/23/2019 Hospital Encounter Department of Radiation Bud Aguirre I., [place]cology in [place] [address] [facility] [address] [place] [phone] Social History Tobacco Use Types Packs/Day Years [...] do you attend religious or Never 2018 yazdanism services? Do you [...] Radiology Mark Eastman M.D., M.S. [address] [place] [phone] 04/26/2022 Office Visit Otorhinolaryngology Roxanne Lanza APRN, C.N.P. [address] [place] [phone] 04/28/2022 Appointment Radiation Oncology Ursula Aguirre M.D. [address] [place] [phone] documented as of this encounter Visit Diagnoses Not on filedocumented in this encounter
--- OUTSIDE RECORDS SUMMARY | 2022-04-07 09:41 | XMS_ITS | Encounter Summary ---
:1955 Author Organization [facility] Address [address] [place] [address] Care Team Providers Name Role Phone Unavailable Primary Care Provider Unavailable Reason for Visit Radiation Therapy (Routine) - Closed Specialty Diagnoses / Procedures Referred By Contact Refer red To Contact Diagnoses Malignant Neoplasm Of Supraglottic (HCC) Ursula Aguirre M.D. [facility] Procedures Prior Auth Rad Tx [place] IMRT COMPLEX [address] [place] [phone] Referral ID Status Reason Start Date Expiration Date Visits Requ ested Visits Authorized [id number] Closed 03/15/2019 03/14/2020 35 35 Encounter Details Date Type Department Care Team Description 04/20/2019 Hospital Encounter Department of Radiation Bud Aguirre I., Oncology in [place] [address] [facility] [address] [place] [phone] Social History Tobacco Use Types Packs/Day Years [...] do you attend hinduism or Never 2018 advent services? Do you [...] Radiology Mark Eastman M.D., M.S. [address] [place] [phone] 04/26/2022 Office Visit Otorhinolaryngology Roxanne Lanza APRN, C.N.P. [address] [place] [phone] 04/28/2022 Appointment Radiation Oncology Ursula Aguirre M.D. [address] [place] [phone] documented as of this encounter Visit Diagnoses Not on filedocumented in this encounter
--- OUTSIDE RECORDS SUMMARY | 2022-04-07 09:41 | XMS_ITS | Encounter Summary ---
:1955 Author Organization [facility] Address [address] [place] [address] Care Team Providers Name Role Phone Unavailable Primary Care Provider Unavailable Reason for Visit Reason Comments Outpatient Infusion Encounter Details Date Type Department Care Team Description 04/19/2019 Infusion Department of Infusion Lara Castellanos Malignant Neoplasm Of Therapy in [place], , SENIOR GEOTECHNICAL ENGINEER, C .N.P. Supraglottic (HCC) [address] (Primary Dx) [address] [place] [address] [phone] Social History Tobacco Use Types Packs/Day Years [...] do you attend scientology or Never 2018 taoism services? Do you [...] Radiology Mark Eastman M.D., M.S. [address] [place] [phone] 04/26/2022 Office Visit Otorhinolaryngology Roxanne Lanza APRN, C.N.P. [address] [place] [phone] 04/28/2022 Appointment Radiation Oncology Ursula Aguirre M.D. [address] [place] [phone] documented as of this encounter Procedures Procedure [...] C.N.P. LAB BLOOD ADD-ON Performing Organization Address City/[facility] Code Phon e Number [facility] - [address] [place] [phone] 05 [facility] Phosphorus Inorganic (04/19/2019 7:02 PM CDT) athologist Signature Phosphorus 3.5 2.5 - 4.5 04/19/2019 (Inorganic), S mg/dL 8:18 PM CDT Specimen Anatomical Collection Method Collection Time Receive d Time (Source) Location / / Volume Laterality Blood (Blood, 04/19/2019 7:02 PM 04/19/20 19 7:09 Venous) CDT PM CDT Lara Castellanos APRN, C.N.P. LAB BLOOD ADD-ON Performing Organization Address City/[facility] Code Phon e Number [facility] - [address] [place] [phone] 05 [facility] Potassium (04/19/2019 7:02 PM CDT) P athologist Signature Potassium, S 4.8 3.6 - 5.2 04/19/2019 mmol/L 8:18 PM CDT Specimen Anatomical Collection Method Collection Time Receive d Time (Source) Location / / Volume Laterality Blood (Blood, 04/19/2019 7:02 PM 04/19/20 7:09 Venous) CDT PM CDT Teresa Patel APRNNShitalPShital LAB BLOOD ADD-ON Performing Organization Address City/State/ZIP Code Phon e Number [facility] - [address] [place], [place] [address] [facility] documented in this encounter Visit [...] daily x 3 days, 04/17-04/19. 04/17-04/18 in [facility], 04/19 in [facility]. documented in this encounter
--- OUTSIDE RECORDS SUMMARY | 2022-04-07 09:41 | XMS_ITS | Encounter Summary ---
:1955 Author Organization [facility] Address [address] [place] [address] Care Team Providers Name Role Phone Unavailable Primary Care Provider Unavailable Reason for Referral Radiation Therapy (Routine) - Canceled Specialty Diagnoses / Procedures Referred By Contact Refer red To Contact Diagnoses Malignant Neoplasm Of Supraglottic (HCC) Ursula Aguirre M.D. [facility] Procedures Management Visit [address] [place] [address] [phone] Referral ID Status Reason Start Date Expiration Date Visits V isits Requested Authorized [id number] Canceled 04/09/2019 04/08/2020 10 10 Reason for Visit Radiation Therapy (Routine) - Canceled Specialty Diagnoses / Procedures Referred By Contact Refer red To Contact Diagnoses Malignant Neoplasm Of Supraglottic (HCC) Ursula Aguirre M.D. [facility] Region Procedures Management Visit [address] [place] [phone] Referral ID Status Reason Start Date Expiration Date Visits V isits Requested Authorized [id number] Canceled 04/09/2019 04/08/2020 10 10 Encounter Details Date Type Department Care Team Description 04/18/2019 Hospital Encounter Department of Ursula Aguirre Neoplasm Of Radiation Oncology Kimberley Bacon Supraglottic (HCC) in [place], [address] [place], [place] 1821 [facility] [phone] [place], [place] [phone] (Work) [phone] Social History Tobacco Use Types Packs/Day Years [...] do you attend restorationist or Never 2018 jewish services? Do you [...] Radiology Mark Eastman M.D., M.S. [address] [place] [phone] 04/26/2022 Office Visit Otorhinolaryngology Roxanne Lanza APRN, C.N.P. [address] [place] [phone] 04/28/2022 Appointment Radiation Oncology Ursula Aguirre M.D. [address] [place] [phone] Scheduled Orders Name Type Priority Associated Diagnoses Order S chedule Management Visit Radiation Oncology Routine Malignant Neoplasm Of Once for 1 Supraglottic (HCC) Occurrenc es starting 04/18/2019 unti l 04/18/2019 documented as of this encounter Visit Diagnoses Diagnosis Malignant Neoplasm Of Supraglottic (HCC) documented in this encounter
--- OUTSIDE RECORDS SUMMARY | 2022-04-07 09:41 | XMS_ITS | Encounter Summary ---
:1955 Author Organization [facility] Address [address] [place] [address] Care Team Providers Name Role Phone Unavailable Primary Care Provider Unavailable Reason for Visit Outpatient (Routine) - Closed Specialty Diagnoses / Procedures Referred By Contact Refer red To Contact Nutrition Diagnoses Home Enteral Nutrition Padma Vieira APRN, [facility] C.N.P., M.S. [address] [place] [phone] Referral ID Status Reason Start Date Expiration Date Visits Requ ested Visits Authorized [id number] Closed 04/11/2019 04/10/2020 1 1 Encounter Details Date Type Department Care Team Description 04/18/2019 Clinical Support Department of Chapin Vieira APRN, C.N.P., M.S. [address] [place] [phone] Home Enteral Nutrition in Emy Kuhn RDN, LD [address] [place] [phone] Nutrition [place], [place] [address] [place] [phone] Social History Tobacco Use Types Packs/Day Years [...] do you attend restorationism or Never 2018 latter day services? 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 They delivered supplies today. Indication for [...] Patient is followed in [facility]: follow-up plan is contact per protocol. Time spent with patient (minutes): 60 documented in this encounter Plan of Treatment Upcoming Encounters Date Type Specialty Care Team Description 04/22/2022 Clinical Admitting/Central Communication Scheduling 04/26/2022 Appointment Radiology Mark Eastman M.D., M.S. [address] [place] [phone] 04/26/2022 Office Visit Otorhinolaryngology Roxanne Lanza, LEASING PROFESSIONAL, C.N.P. [address] [place] [phone] 04/28/2022 Appointment Radiation Oncology Ursula Aguirre M.D. [address] [place] [phone] documented as of this encounter Visit Diagnoses Diagnosis Home Enteral Nutrition documented in this encounter
--- OUTSIDE RECORDS SUMMARY | 2022-04-07 09:42 | XMS_ITS | Encounter Summary ---
:1955 Author Organization [facility] Address [address] [place] [address] Care Team Providers Name Role Phone Unavailable Primary Care Provider Unavailable Reason for Visit Reason Comments Outpatient Infusion Thiamine Encounter Details Date Type Department Care Team Description 04/17/2019 Infusion Department of Infusion Lara Castellanos Malignant Neoplasm Of Therapy in [facility], DIRECTOR OF HEAD START, C .N.P. Supraglottic (HCC) [address] (Primary Dx) [address] [place] [phone] Social History Tobacco Use Types Packs/Day Years [...] do you attend islam or Never 2018 methodist services? Do you [...] Radiology Mark Eastman M.D., M.S. [address] [place] [address] [place] [phone] 04/26/2022 Office Visit Otorhinolaryngology Roxanne Lanza APRN, C.N.P. [address] [place] [phone] 04/28/2022 Appointment Radiation Oncology Ursula Aguirre M.D. [address] [place] [phone] documented as of this encounter Visit Diagnoses [...] daily x 3 days, 04/17-04/19. 04/17-04/18 in [facility], 04/[address] [facility]. documented in this encounter
--- OUTSIDE RECORDS SUMMARY | 2022-04-07 09:42 | XMS_ITS | Encounter Summary ---
:1955 Author Organization [facility] Address [address] [place] [address] Care Team Providers Name Role Phone Unavailable Primary Care Provider Unavailable Reason for Visit Radiation Therapy (Routine) - Closed Specialty Diagnoses / Procedures Referred By Contact Refer red To Contact Diagnoses Malignant Neoplasm Of Supraglottic (HCC) Ursula Aguirre M.D. [facility] Procedures Prior Auth Rad Tx DC IMRT COMPLEX [address] [place] [phone] Referral ID Status Reason Start Date Expiration Date Visits Requ ested Visits Authorized [id number] Closed 03/15/2019 03/14/2020 35 35 Encounter Details Date Type Department Care Team Description 04/13/2019 Hospital Encounter Department of Radiation Bud Aguirre I., [place] [address] [facility] [address] [place] [phone] Social History Tobacco Use Types Packs/Day Years [...] do you attend anabaptist or Never 2018 scientology services? Do you [...] Radiology Mark Eastman M.D., M.S. [address] [place] [phone] 04/26/2022 Office Visit Otorhinolaryngology Roxanne Lanza APRN, C.N.P. [address] [place] [phone] 04/28/2022 Appointment Radiation Oncology Ursula Aguirre M.D. [address] [place] [phone] documented as of this encounter Visit Diagnoses Not on filedocumented in this encounter
--- OUTSIDE RECORDS SUMMARY | 2022-04-07 09:42 | XMS_ITS | Encounter Summary ---
:1955 Author Organization [facility] Address [address] [place] [address] Care Team Providers Name Role Phone Unavailable Primary Care Provider Unavailable Reason for Referral Outpatient (Routine) - Closed Specialty Diagnoses / Procedures Referred By Contact Refer red To Contact Diagnoses Malignant Neoplasm Of Supraglottic (HCC) Summer Pérez P.A.-C., [facility] Procedures Percutaneous Endoscopic Gastrostomy M.S. [address] [place] [phone] Referral ID Status Reason Start Date Expiration Date Visits Requ ested Visits Authorized [id number] Closed 04/11/2019 04/10/2020 1 1 Reason for Visit Auth/Cert Specialty Diagnoses / Procedures Referred By Contact Refer red To Contact Diagnoses Malignant Neoplasm Of Supraglottic (HCC) Procedures EGD ? PERCUTANEOUS ENDOSCOPIC GASTROSTOMY/JEJUNOSTOMY Referral ID Status Reason Start Date Expiration Date Visits Requ ested Visits Authorized [id number] 1 1 Encounter Details Date Type Department Care Team Description 04/17/2019 Hospital Encounter Division of Summer Pérez Malignant Neoplasm Gastroenterology in [place] Frederick, Of Supra glottic [place], [place] M.S. (HCC) [address] [facility] [address] [place] [address] [place] [phone] Social History Tobacco Use Types Packs/Day Years [...] do you attend anabaptist or Never 2018 worship services? Do you belong to any clubs or No 02/21/2019 organizations such as anabaptist groups, unions, fraTinselvision or athletic groups, or school groups? How [...] Mark Eastman M.D., M.S. [address] [place] [phone] 04/26/2022 Office Visit Otorhinolaryngology Roxanne Lanza, SENIOR IT SPECIALIST, C.N.P. [address] [place] [phone] 04/28/2022 Appointment Radiation Oncology Ursula Aguirre M.D. [address] [place] [phone] documented as of this encounter [...] Address City/State/ZIP Code Phon e Number [facility] [address] [place] [address] Upper GI Endoscopy (04/17/2019 3:32 PM CDT) Specimen (Source) Anatomical Collection Method Collection Time Re ceived Time Location / / Volume Laterality 04/17/2019 3:32 PM CDT Impressions [facility] - 04/17/2019 4:58 PM CDT Post-op Diagnoses: [...] to the 2 week ? please call [phone] for inst ructions ? T-fasteners are removed [...] T-fasteners or T ? ??fastener site call [phone] Tuesday ? ??Tuesday ? am-4:30 pm or after hours, weeken ds, holidays call [facility] punch press operator helper ? [phone] ask them to page [phone] and wait for MD to answer. May [...] to the 2 week ? please call [phone] for inst ructions ? T-fasteners are removed [...] T-fasteners or T ? ??fastener site call [phone] Tuesday-Tuesday; ? am-4:30 pm or after hours, weeken ds, holidays call [facility] punch press operator helper ? [phone] ask them to page [phone] and wait for MD to answer. May [...] Organization Address City/State/ZIP Code Phon e Number [facility] documented in this encounter Visit Diagnoses [...] D) 1510 (Given - Provider: Anisa Woods, SENIOR IT SPECIALIST, RN MOBILE) 1,000 mg (rounded from 1,029 mg = [...]
--- OUTSIDE RECORDS SUMMARY | 2022-04-07 09:42 | XMS_ITS | Encounter Summary ---
:1955 Author Organization [facility] Address [address] [place] [address] Care Team Providers Name Role Phone Unavailable Primary Care Provider Unavailable Encounter Details Date Type Department Care Team Description 04/17/2019 Documentation Division of Sue Jackson, Internal Medicine in Pharm.D., R .Ph. [place], [place] [address] [place] [phone] Social History Tobacco Use Types Packs/Day [...] do you attend latter-day or Never 2018 restoration services? Do you [...] Radiology Mark Eastman M.D., M.S. [address] [place] [phone] 04/26/2022 Office Visit Otorhinolaryngology Roxanne Lanza, HOUSE SITTER, C.N.P. [address] [place] [phone] 04/28/2022 Appointment Radiation Oncology Ursula Aguirre M.D. [address] [place] [phone] documented as of this encounter Visit Diagnoses Not on filedocumented in this encounter
--- OUTSIDE RECORDS SUMMARY | 2022-04-07 09:42 | XMS_ITS | Encounter Summary ---
:1955 Author Organization [facility] Address [address] [place] [address] Care Team Providers Name Role Phone Unavailable Primary Care Provider Unavailable Reason for Visit Radiation Therapy (Routine) - Closed Specialty Diagnoses / Procedures Referred By Contact Refer red To Contact Diagnoses Malignant Neoplasm Of Supraglottic (HCC) Ursula Aguirre M.D. [facility] Procedures Prior Auth Rad Tx LA IMRT COMPLEX [address] [place] [address] [phone] Referral ID Status Reason Start Date Expiration Date Visits Requ ested Visits Authorized [id number] Closed 03/15/2019 03/14/2020 35 35 Encounter Details Date Type Department Care Team Description 04/12/2019 Hospital Encounter Department of Radiation Bud Aguirre I., Oncology in [place] [address] [facility] 1821 [place] [phone] Social History Tobacco Use Types Packs/Day Years [...] do you attend taoism or Never 2018 moravian services? Do you [...] Radiology Mark Eastman M.D., M.S. [address] [place] [phone] 04/26/2022 Office Visit Otorhinolaryngology Roxanne Lanza APRN, C.N.P. [address] [place] [address] [phone] 04/28/2022 Appointment Radiation Oncology Ursula Aguirre M.D. [address] [place] [phone] documented as of this encounter Visit Diagnoses Not on filedocumented in this encounter
--- OUTSIDE RECORDS SUMMARY | 2022-04-07 09:42 | XMS_ITS | Encounter Summary ---
:1955 Author Organization [facility] Address [address] [place] [address] Care Team Providers Name Role Phone Unavailable Primary Care Provider Unavailable Encounter Details Date Type Department Care Team Description 04/13/2019 Orders Only Department of Emy Kuhn Malignan t Neoplasm Of Supraglottic (HCC) (Primary Dx); Nutrition in RDN, LD Gastrostomy Percutaneous Endoscopic Stat us Post (HCC); [place], [place] 200 [facility] Dysphagia Oropharyngeal Phase 200 [place] [phone] Social History Tobacco Use Types Packs/Day Years [...] do you attend quaker or Never 2018 rastafari services? Do you [...] Radiology Mark Eastman M.D., M.S. [address] [place] [phone] 04/26/2022 Office Visit Otorhinolaryngology Roxanne Lanza APRN, C.N.P. [address] [place] [phone] 04/28/2022 Appointment Radiation Oncology Ursula Aguirre M.D. [address] [place] [phone] documented as of this encounter Visit Diagnoses Diagnosis Malignant Neoplasm Of Supraglottic (HCC) - Primary Gastrostomy Percutaneous Endoscopic Stat us Post (HCC) Dysphagia Oropharyngeal Phase documented in this encounter
--- OUTSIDE RECORDS SUMMARY | 2022-04-07 09:42 | XMS_ITS | Encounter Summary ---
:1955 Author Organization [facility] Address [address] [place] [address] Care Team Providers Name Role Phone Unavailable Primary Care Provider Unavailable Reason for Visit Auth/Cert Specialty Diagnoses / Procedures Referred By Contact Refer red To Contact Diagnoses Malignant Neoplasm Of Supraglottic (HCC) Procedures EGD ? PERCUTANEOUS ENDOSCOPIC GASTROSTOMY/JEJUNOSTOMY Referral ID Status Reason Start Date Expiration Date Visits Requ ested Visits Authorized [id number] 1 1 Encounter Details Date Type Department Care Team Description 04/17/2019 Hospital Encounter Department of Padma Vieira Enteral Radiology, Brenad Chaidez APRN C.NShitalPShital, Nutriti on [facility] in [facility], [address] [place], [place] [address] [place] [phone] [place], [place] [phone] (Work) [phone] Social History Tobacco Use Types Packs/Day Years [...] you attend roman catholic or Never 2018 oriental orthodox services? Do [...] to pay for the very basics like Orchestrate hat hard 02/21/2019 food, housing, medical care, [...] Radiology Mark Eastman M.D., M.S. [address] [place] [phone] 04/26/2022 Office Visit Otorhinolaryngology Roxanne Lanza, FISH NET MAKER, C.N.P. [address] [place] [phone] 04/28/2022 Appointment Radiation Oncology Ursula Aguirre M.D. [address] [place] [address] [phone] documented as of this encounter Procedures Procedure [...]
--- OUTSIDE RECORDS SUMMARY | 2022-04-07 09:42 | XMS_ITS | Encounter Summary ---
:1955 Author Organization [facility] Address [address] [place] [address] Care Team Providers Name Role Phone Unavailable Primary Care Provider Unavailable Reason for Referral Outpatient (Routine) - Closed Specialty Diagnoses / Procedures Referred By Contact Refer red To Contact Nutrition Diagnoses Malignant Neoplasm Of Supraglottic (HCC) Summer Pérez P.A.-C., [facility] [address] [place] [phone] Referral ID Status Reason Start Date Expiration Date Visits Requ ested Visits Authorized [id number] Closed 03/29/2019 03/28/2020 1 1 Reason for Visit Outpatient (Routine) - Closed Specialty Diagnoses / Procedures Referred By Contact Refer red To Contact Nutrition Diagnoses Malignant Neoplasm Of Supraglottic (HCC) Summer Pérez P.A.-C., [facility] [address] [place] [phone] Referral ID Status Reason Start Date Expiration Date Visits Requ ested Visits Authorized [id number] Closed 03/29/2019 03/28/2020 1 1 Encounter Details Date Type Department Care Team Description 04/12/2019 Hospital Encounter Department of Summer Pérez P.A.-C., M.S. [address] [place] [phone] Malignant Neoplasm Of Radiation Oncology Ryanne Mcbride, JUANITO [address] [place] [phone] Supraglottic (HCC) in [place], [place] [address] [place] [address] Social History Tobacco Use Types [...] do you attend jew or Never 2018 scientology services? 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 Nutrition Prescription/Recommendation 5236-4544??kcals, 88-105??grams protein, 9+??cups fluid ?? INTERVENTION Patient [...] again today. She has appointments scheduled in [place] tomorrow for tube feeding placement and initiation. [...] as ordered 4. Tube feeding initiation in [place]. FOLLOW UP PLAN: She??will follow up next week. RDN's contact information provided and??she??was encouraged to call with questions. ?? Time spent with patient (minutes):15 documented in this encounter Plan of Treatment Upcoming Encounters Date Type Specialty Care Team Description 04/22/2022 Clinical Admitting/Central Communication Scheduling 04/26/2022 Appointment Radiology Mark Eastman M.D., M.S. [address] [place] [phone] 04/26/2022 Office Visit Otorhinolaryngology Roxanne Lanza, TUGBOAT OPERATOR, C.N.P. [address] [place] [phone] 04/28/2022 Appointment Radiation Oncology Ursula Aguirre M.D. [address] [place] [phone] Scheduled Referrals Name Type Priority Associated Diagnoses Order S chedule Nutrition - Outpatient Referral Routine Malignant Neoplasm On ce for 1 Medical nutrition Of Supraglottic Occurre nces therapy consult (HCC) starting (clinic) until 9 documented as of this encounter Visit Diagnoses Diagnosis Malignant Neoplasm Of Supraglottic (HCC) documented in this encounter
--- OUTSIDE RECORDS SUMMARY | 2022-04-07 09:42 | XMS_ITS | Encounter Summary ---
:1955 Author Organization [facility] Address [address] [place] [address] Care Team Providers Name Role Phone Unavailable Primary Care Provider Unavailable Reason for Referral Outpatient (Routine) - Closed Specialty Diagnoses / Procedures Referred By Contact Refer red To Contact Endocrinology Diagnoses Malignant Neoplasm Of Supraglottic (HCC) Lara Castellanos [facility] AMAYA, C.N.P. [address] [place] [phone] Referral ID Status Reason Start Date Expiration Date Visits Requ ested Visits Authorized [id number] Closed 04/13/2019 04/12/2020 1 1 Scheduling Instructions With KITCHEN CLEANER on Tuesday Reason for Visit Outpatient (Routine) - Closed Specialty Diagnoses / Procedures Referred By Contact Refer red To Contact Endocrinology Diagnoses Malignant Neoplasm Of Supraglottic (HCC) Summer Pérez P.A.-C., [facility] M.S. 200 [place] [address] Referral ID Status Reason Start Date Expiration Date Visits Requ ested Visits Authorized [id number] Closed 04/11/2019 04/10/2020 1 1 Encounter Details Date Type Department Care Team Description 04/13/2019 Comprehensive Visit Division of Summer Pérez P.A.-C., M.S. [address] [place] [phone] Loss Weight (Primary Dx); Endocrinology in Lara CastellanosSEMAJN, C.N.P. [address] [place] [phone] Malignant Neoplasm Of Supraglottic (HCC) ; [place], [place] Odynophagia [address] [place] [phone] Social History Tobacco Use Types Packs/Day Years [...] do you attend mandaeism or Never 2018 confucianism services? Do you [...] sons. Because of her radiation treatment in [place] this morning, she missed her huc ob appointment and was late for this appointment, [...] lower extremity gross muscle groups and hand emergency department nurse strength ASSESSMENT / PLAN #1 Malignant Neoplasm [...] 5 containers daily. 5. Return visit with KITCHEN CLEANER 04/18. Total time spent 40 minutes with greater than 50% of that time spend in counseling and care coordination This note was constructed using Davia*Intell[employer] Direct speech recognition medical dictation system. All attempts have been made to review for accuracy however, some typographical errors may be present. documented in this encounter Plan of Treatment Upcoming Encounters Date Type Specialty Care Team Description 04/22/2022 Clinical Admitting/Central Communication Scheduling 04/26/2022 Appointment Radiology Mark Eastman M.D., M.S. [address] [place] [phone] 04/26/2022 Office Visit Otorhinolaryngology Roxanne Lanza APRN, C.N.P. [address] [place] [phone] 04/28/2022 Appointment Radiation Oncology Ursula Aguirre M.D. [address] [place] [address] Scheduled Referrals Name Type Priority Associated Diagnoses Order S chedule Endocrinology - Home Outpatient Routine Malignant Neoplasm E xpected: enteral nutrition Referral Of Supraglottic 019 consult (clinic) ([facility]) (Approximat e), Expires: 04/13/2022 documented as of [...] Organization Address City/State/ZIP Code Phon e Number [facility] [address] [place] [address] LAB Phosphorus Inorganic (04/20/2019 9:03 AM CDT) athologist Signature Phosphorus 3.3 2.5 - 4.5 04/20/2019 (Inorganic), S mg/dL 10:12 PM CDT Specimen Anatomical Collection Method Collection Time Receive d Time (Source) Location / / Volume Laterality Blood (Blood, 04/20/2019 9:03 AM 04/20/20 19 9:37 Venous) CDT PM CDT Lara Castellanos APRN, C.N.PShital LAB BLOOD ADD-ON Performing Organization Address City/State/ZIP Code Phon e Number [facility] [address] [place] [address] [place] LAB Potassium (04/20/2019 9:03 AM CDT) athologist Signature Potassium, S 4.2 3.6 - 5.2 04/20/2019 mmol/L 10:19 AM CDT Specimen Anatomical Collection Method Collection Time Receive d Time (Source) Location / / Volume Laterality Blood (Blood, 04/20/2019 9:03 AM 04/20/20 19 9:11 Venous) CDT AM CDT Teresa Patel APRNNDori LAB BLOOD ADD-ON Performing Organization Address City/State/ZIP Code Phon e Number [facility] [address] [place] [address] LAB Potassium (04/19/2019 7:02 PM CDT) athologist Signature Potassium, S 4.8 3.6 - 5.2 04/19/2019 mmol/L 8:18 PM CDT Specimen Anatomical Collection Method Collection Time Receive d Time (Source) Location / / Volume Laterality Blood (Blood, 04/19/2019 7:02 PM 04/19/20 19 7:09 Venous) CDT PM CDT Teresa Patel APRNN.P. LAB BLOOD ADD-ON Performing Organization Address City/State/ZIP Code Phon e Number [facility] - [address] [place], [place] [address] [facility] Phosphorus Inorganic (04/19/2019 7:02 PM CDT) [...] City/State/ZIP Code Phon e Number [facility] - [address] [place] [address] [facility] Magnesium (04/19/2019 7:02 PM CDT) P athologist Signature Magnesium, S 1.9 1.7 - 2.3 04/19/2019 mg/dL 8:18 PM CDT Specimen Anatomical Collection Method Collection Time Receive d Time (Source) Location / / Volume Laterality Blood (Blood, 04/19/2019 7:02 PM 04/19/20 7:09 Venous) CDT PM CDT Lara Castellanos APRN, C.N.P. LAB BLOOD ADD-ON Performing Organization Address City/[facility]/ZIP Code Phon e Number [facility] - [address] [place] [phone] [facility] Phosphorus Inorganic (04/17/2019 12:53 PM CDT) [...] City/State/ZIP Code Phon e Number [facility] - [address] [place] [address] [facility] Magnesium (04/17/2019 12:53 PM CDT) athologist Signature Magnesium, S 1.9 1.7 - 2.3 04/17/2019 mg/dL 2:55 PM CDT Specimen Anatomical Collection Method Collection Time Receive d Time (Source) Location / / Volume Laterality Blood (Blood, 04/17/2019 12:53 04/17/2019 1:07 Venous) PM CDT PM CDT Lara Castellanos APRN, C.N.P. LAB BLOOD ADD-ON Performing Organization Address City/[facility]/ZIP Code Phon e Number [facility] - [address] [place] [address] [facility] (ABNORMAL) Basic Metabolic Panel (04/17/2019 12:53 [...] 04/17/2019 Nitrogen), S mg/dL 2:55 PM CDT Creatinine 0.61 0.59 - 04/17/2019 1.04 mg/dL 2:55 [...] City/State/ZIP Code Phon e Number [facility] - [address] [place], [place] [address] [facility] documented in this encounter Visit Diagnoses Diagnosis Loss Weight - Primary Malignant Neoplasm Of Supraglottic (HCC) Odynophagia documented in this encounter
--- OUTSIDE RECORDS SUMMARY | 2022-04-07 09:42 | XMS_ITS | Encounter Summary ---
:1955 Author Organization [facility] Address [address] [place] [address] Care Team Providers Name Role Phone Unavailable Primary Care Provider Unavailable Reason for Visit Radiation Therapy (Routine) - Closed Specialty Diagnoses / Procedures Referred By Contact Refer red To Contact Diagnoses Malignant Neoplasm Of Supraglottic (HCC) Ursula Aguirre M.D. [facility] Procedures Prior Auth Rad Tx [place] IMRT COMPLEX [address] [place] [phone] Referral ID Status Reason Start Date Expiration Date Visits Requ ested Visits Authorized [id number] Closed 03/15/2019 03/14/2020 35 35 Encounter Details Date Type Department Care Team Description 04/17/2019 Hospital Encounter Department of Radiation Bud Aguirre I., [place] [address] [facility] [address] [place] [phone] Social History Tobacco Use Types Packs/Day Years [...] do you attend bahai or Never 2018 buddhism services? Do you [...] Radiology Mark Eastman M.D., M.S. [address] [place] [phone] 04/26/2022 Office Visit Otorhinolaryngology Roxanne Lanza APRN, C.N.P. [address] [place] [phone] 04/28/2022 Appointment Radiation Oncology Ursula Aguirre M.D. [address] [place] [phone] documented as of this encounter Visit Diagnoses Not on filedocumented in this encounter
--- OUTSIDE RECORDS SUMMARY | 2022-04-07 09:42 | XMS_ITS | Encounter Summary ---
:1955 Author Organization [facility] Address [address] [place] [address] Care Team Providers Name Role Phone Unavailable Primary Care Provider Unavailable Reason for Visit Radiation Therapy (Routine) - Closed Specialty Diagnoses / Procedures Referred By Contact Refer red To Contact Diagnoses Malignant Neoplasm Of Supraglottic (HCC) Ursula Aguirre M.D. [facility] Procedures Prior Auth Rad Tx [place] IMRT COMPLEX [address] [place] [address] [phone] Referral ID Status Reason Start Date Expiration Date Visits Requ ested Visits Authorized [id number] Closed 03/15/2019 03/14/2020 35 35 Encounter Details Date Type Department Care Team Description 04/11/2019 Hospital Encounter Department of Radiation Bud Aguirre I., [place] [address] [facility] [address] [place] [phone] Social History Tobacco Use Types Packs/Day Years [...] do you attend tenriism or Never 2018 gnosticist services? Do you [...] Radiology Mark Eastman M.D., M.S. [address] [place] [address] 04/26/2022 Office Visit Otorhinolaryngology Roxanne Lanza APRN, C.N.P. [address] [place] [phone] 04/28/2022 Appointment Radiation Oncology Ursula Aguirre M.D. [address] [place] [phone] documented as of this encounter Visit Diagnoses Not on filedocumented in this encounter
--- OUTSIDE RECORDS SUMMARY | 2022-04-07 09:42 | XMS_ITS | Encounter Summary ---
:1955 Author Organization [facility] Address [address] [place] [address] Care Team Providers Name Role Phone Unavailable Primary Care Provider Unavailable Reason for Referral Outpatient (Routine) - Closed Specialty Diagnoses / Procedures Referred By Contact Refer red To Contact Ursula Fletcher M.D. [facility] Region [address] [place] [phone] Referral ID Status Reason Start Date Expiration Date Visits Requ ested Visits Authorized [id number] Closed 03/15/2019 03/14/2020 1 1 Reason for Visit Outpatient (Routine) - Closed Specialty Diagnoses / Procedures Referred By Contact Refer red To Contact Ursula Fletcher M.D. [address] [phone] Referral ID Status Reason Start Date Expiration Date Visits Requ ested Visits Authorized [id number] Closed 03/15/2019 03/14/2020 1 1 Encounter Details Date Type Department Care Team Description 04/12/2019 Hospital Encounter Department of Mary Aguirre M.D. [address] [place] [phone] Malignant Neoplasm Of Radiation Oncology Ibeth Vanessa Supraglottic (HCC) in [place], [place] [address] [place] [phone] Social History Tobacco Use Types [...] do you attend latter-day or Never 2018 confucianist services? Do you [...] primary care provider on file. Primary Language: Croatian REASON FOR CONSULT Initial social work consult [...] Origin: Mrs. Narayan grew up in [place] [facility] [place] and lived there until 1 year ago. Marital Status / Family / Household Status: Household information: Number of persons in household: 3 Relationships of persons in household: Patient, her son and his . Type of housing: Private residence, belonging to her son and emaieciw-ja-ylc. Support Systems: Family Primary caregiver: Sage Narayan, her son, and Darlin Narayan, her vbhcsqtv-hp-oiy. We have received permission to contact them. Spirituality / Tenriism / Culture: No gnosticism on file Employment: Not working - disabled. 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 Abuse, Neglect, Maltreatment, Trauma: Current: None reported. Past: None reported. ENVIRONMENTAL SUPPORTS Current Living Situation: Mrs. Narayan lives with her son and awopatuu-gq-jth in their home in [place], [place]. However, during her radiation therapy she is staying in [place] with her son Rolando and his children, [...] help in managing it. FINANCES/INSURANCE Primary insurance: [employer]US HMO Secondary insurance: N/A ADVANCE DIRECTIVES Mrs. Narayan does not have a completed health care directive on file with [facility]. This was not discussed today. OBJECTIVE [...] with her son Sage, met with this licensed social worker today for an initial social work consult and psychosocial assessment. She was generous in sharing her overall life context and current experience with radiation therapy. She lived in [place] until 1 year ago, when she moved to [place] to be closer to her sons. She lives with one son in [place], but during the weeks that she is undergoing radiation therapy, she stays with her son in [place]. She has significant hearing impairment from a [...] Radiology Mark Eastman M.D., M.S. [address] [place] [phone] 04/26/2022 Office Visit Otorhinolaryngology Roxanne Lanza APRN, C.N.P. [address] [place] [phone] 04/28/2022 Appointment Radiation Oncology Ursula Aguirre M.D. [address] [place] [address] [phone] Scheduled Referrals Name Type Priority Associated Diagnoses Order S [facility] Social Work Outpatient Referral Routine Once for 1 office visit Occurrences sta rting (clinic) 04/12/2019 unti l 04/12/2019 documented as of this encounter Visit Diagnoses Diagnosis Malignant Neoplasm Of Supraglottic (HCC) documented in this encounter
--- OUTSIDE RECORDS SUMMARY | 2022-04-07 09:42 | XMS_ITS | Encounter Summary ---
:1955 Author Organization [facility] Address [address] [place] [address] Care Team Providers Name Role Phone Unavailable Primary Care Provider Unavailable Reason for Visit Reason Comments Appointment Encounter Details Date Type Department Care Team Description 04/13/2019 Clinical Support Division of Chapin Vieira APRN, C.N.P., M.S. [address] [place] [phone] Home Enteral [facility]. [address] [place] [phone] Nutrition [place], [place] [address] [place] [phone] Social History Tobacco Use Types Packs/Day Years [...] do you attend shinto or Never 2018 mosque services? Do you [...] scheduled? Date: 04/17, Time: 1400 and Location: [place] [address]. Tube education provided: GI: Both tube types, [...] Scheduled: Date 04/17 at 1240 Has the [facility] Nurse post procedure appointment been scheduled? Yes; Date 04/18 at 0800 Has the [facility] Dietitian post procedure appointment been scheduled? Yes; [...] Radiology Mark Eastman M.D., M.S. [address] [place] [phone] 04/26/2022 Office Visit Otorhinolaryngology Roxanne Lanza APRN, C.N.P. [address] [place] [phone] 04/28/2022 Appointment Radiation Oncology Ursula Aguirre M.D. [address] [place] [phone] documented as of this encounter Visit Diagnoses Diagnosis Home Enteral Nutrition documented in this encounter
--- OUTSIDE RECORDS SUMMARY | 2022-04-07 09:42 | XMS_ITS | Encounter Summary ---
:1955 Author Organization [facility] Address [address] [place] [address] Care Team Providers Name Role Phone Unavailable Primary Care Provider Unavailable Encounter Details Date Type Department Care Team Description 04/13/2019 Orders Only [facility] - Lin Benitez, [address] 1 A.P.N.P., R.N. [place] [phone] [place] [address] [place] [address] (Wo rk) Social History Tobacco [...] do you attend nondenominational or Never 2018 synagogue services? Do you [...] Radiology Mark Eastman M.D., M.S. [address] [place] [phone] 04/26/2022 Office Visit Otorhinolaryngology Roxanne Lanza APRN, C.N.P. [address] [place] [phone] 04/28/2022 Appointment Radiation Oncology Ursula Aguirre M.D. [address] [place] [phone] documented as of this encounter Visit Diagnoses Not on filedocumented in this encounter
--- OUTSIDE RECORDS SUMMARY | 2022-04-07 09:42 | XMS_ITS | Encounter Summary ---
:1955 Author Organization [facility] Address [address] [place] [address] Care Team Providers Name Role Phone Unavailable Primary Care Provider Unavailable Reason for Visit Outpatient (Routine) - Closed Specialty Diagnoses / Procedures Referred By Contact Refer red To Contact Nutrition Diagnoses Home Enteral Nutrition Padma Vieira APRN, [facility] C.N.P., M.S. [address] [place] [phone] Referral ID Status Reason Start Date Expiration Date Visits Requ ested Visits Authorized [id number] Closed 04/11/2019 04/10/2020 1 1 Encounter Details Date Type Department Care Team Description 04/13/2019 Clinical Support Department of Chapin Vieira APRN, C.N.P., M.S. [address] [place] [phone] Home Enteral Nutrition in [place]my Kuhn RDN, [place] [address] [place] [phone] Nutrition [place], [place] [address] [place] [address] [phone] Social History Tobacco Use Types Packs/Day Years [...] do you attend moravian or Never 2018 buddhism services? 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 Indication for [...] Patient is followed in [facility]: follow-up plan is to see for post feeding tube placement appointments and monitor and evaluate as needed. Time spent with patient (minutes): 45 documented in this encounter Plan of Treatment Upcoming Encounters Date Type Specialty Care Team Description 04/22/2022 Clinical Admitting/Central Communication Scheduling 04/26/2022 Appointment Radiology Mark Eastman M.D., M.S. [address] [place] [phone] 04/26/2022 Office Visit Otorhinolaryngology Roxanne Lanza APRN, C.N.P. [address] [place] [address] [phone] 04/28/2022 Appointment Radiation Oncology Ursula Aguirre M.D. [address] [place] [address] [phone] documented as of this encounter Visit Diagnoses Diagnosis Home Enteral Nutrition documented in this encounter
--- OUTSIDE RECORDS SUMMARY | 2022-04-07 09:42 | XMS_ITS | Encounter Summary ---
:1955 Author Organization [facility] Address [address] [place] [address] Care Team Providers Name Role Phone Unavailable Primary Care Provider Unavailable Reason for Visit Auth/Cert Specialty Diagnoses / Procedures Referred By Contact Refer red To Contact Diagnoses Malignant Neoplasm Of Supraglottic (HCC) Procedures EGD ? PERCUTANEOUS ENDOSCOPIC GASTROSTOMY/JEJUNOSTOMY Referral ID Status Reason Start Date Expiration Date Visits Requ ested Visits Authorized [id number] 1 1 Encounter Details Date Type Department Care Team Description 04/17/2019 Anesthesia Event Division of Gastroenterology Anisa Woods in [facility] guillaume Serna, HOSPITALITY MANAGER, VP PRODUCT, [address] [place], [place] [phone] [address] [facility] [phone] [place] [phone] Anesthesia Record Procedure Summary Procedure Name Responsible Anesthesia Start Anesthesia Stop Anesthesiologist Time Time EGD ? Anisa Woods APRN, 04/17/19 1558 04/17/19 1742 PERCUTANEOUS VP PRODUCT, [facility] END[facility]COP[facility] GASTROSTOMY/JEJUNOSTOM Y Events Date Time Event [...] h andoff to the receiving staff during [facility] we 1. Identified the patient [...] Kimberley Bruce, Dm Serna, (created via procedure HOSPITALITY MANAGERLEON A, MNA documentation); Mask Ventilation: Not attempted; [...] do you attend yazidi or Never 2018 yarsanism services? Do you [...] Room / Location: Division of Gastroenterology in [place], [place] Anesthesia Start: 1558 Anesthesia Stop: 174 [...] (HCC) [C32.1] Location: Division of Gastroenterology in [place], [place] Pertinent components of the patient's history [...] with patient /legal guardian or through an park interpreter.. Risks/Benefits/Alternatives of Blood transfusion discussed with patient [...] Radiology Mark Eastman M.D., M.S. [address] [place] [phone] 04/26/2022 Office Visit Otorhinolaryngology Roxanne Lanza APRN, C.N.P. [address] [place] [phone] 04/28/2022 Appointment Radiation Oncology Ursula Aguirre M.D. 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 Worsening dysphonia over past 2 [...]
--- OUTSIDE RECORDS SUMMARY | 2022-04-07 09:42 | XMS_ITS | Encounter Summary ---
:1955 Author Organization [facility] Address [address] [place] [address] Care Team Providers Name Role Phone Unavailable Primary Care Provider Unavailable Reason for Visit Radiation Therapy (Routine) - Closed Specialty Diagnoses / Procedures Referred By Contact Refer red To Contact Diagnoses Malignant Neoplasm Of Supraglottic (HCC) Ursula Aguirre M.D. [facility] Procedures Prior Auth Rad Tx [place] IMRT COMPLEX [address] [place] [address] [phone] Referral ID Status Reason Start Date Expiration Date Visits Requ ested Visits Authorized [id number] Closed 03/15/2019 03/14/2020 35 35 Encounter Details Date Type Department Care Team Description 04/11/2019 Hospital Encounter Department of Radiation Bud Aguirre I., [place] [address] [facility] [address] [place] [phone] Social History Tobacco Use Types Packs/Day Years [...] do you attend rastafari or Never 2018 rastafari services? Do you [...] Radiology Mark Eastman M.D., M.S. [address] [place] [address] [phone] 04/26/2022 Office Visit Otorhinolaryngology Roxanne Lanza APRN, C.N.P. [address] [place] [address] [phone] 04/28/2022 Appointment Radiation Oncology Ursula Aguirre M.D. [address] [place] [address] [phone] documented as of this encounter Visit Diagnoses Not on filedocumented in this encounter
--- OUTSIDE RECORDS SUMMARY | 2022-04-07 09:42 | XMS_ITS | Encounter Summary ---
:1955 Author Organization [facility] Address [address] [place] [address] Care Team Providers Name Role Phone Unavailable Primary Care Provider Unavailable Encounter Details Date Type Department Care Team Description 04/11/2019 Clinical Communication Department of Camille Orellana Radiation Oncology in [address] [place] [address] [place] [phone] Social History Tobacco Use Types [...] do you attend christianity or Never 2018 protestant services? Do you [...] covered by the patient's insurance Phone number: [phone] Is it okay to leave a voicemail on answering machine with test results? No Pharmacy (if medication related): [facility] [address] 150 [facility] [address] Ayla Orellana C.Ph.T. documented in this encounter Plan of Treatment Upcoming Encounters Date Type Specialty Care Team Description 04/22/2022 Clinical Admitting/Central Communication Scheduling 04/26/2022 Appointment Radiology Mark Eastman M.D., M.S. [address] [place] [phone] 04/26/2022 Office Visit Otorhinolaryngology Roxanne Lanza, GREEN CHAIN WORKER, C.N.P. [address] [place] [phone] 04/28/2022 Appointment Radiation Oncology Ursula Aguirre M.D. [address] [place] [phone] documented as of this encounter Visit Diagnoses Not on filedocumented in this encounter
--- OUTSIDE RECORDS SUMMARY | 2022-04-07 09:42 | XMS_ITS | Encounter Summary ---
:1955 Author Organization [facility] Address [address] [place] [address] Care Team Providers Name Role Phone Unavailable Primary Care Provider Unavailable Reason for Referral Outpatient (Routine) - Closed Specialty Diagnoses / Procedures Referred By Contact Refer red To Contact Nutrition Diagnoses Home Enteral Nutrition Padma Vieira APRN, [facility] C.N.P., M.S. [address] [place] [phone] Referral ID Status Reason Start Date Expiration Date Visits Requ ested Visits Authorized [id number] Closed 04/11/2019 04/10/2020 [address] Pre utpatient (Routine) - Closed Specialty Diagnoses / Procedures Referred By Contact Refer red To Contact Nutrition Diagnoses Home Enteral Nutrition [facility] C.[facility] M.S. [address] [place] [phone] Referral ID Status Reason Start Date Expiration Date Visits Requ ested Visits Authorized [id number] Closed 04/11/2019 04/10/2020 [address] Post Specialty Diagnoses / Procedures Referred By Contact Refer red To Contact [facility] [address] [place] [phone] Referral ID Status Reason Start Date Expiration Date Visits Requ ested Visits Authorized Scheduling Instructions SUSIE COBOS Post--30 min Specialty Diagnoses / Procedures Referred By Contact Refer red To Contact [facility] [address] [place] [phone] Referral ID Status Reason Start Date Expiration Date Visits Requ ested Visits Authorized Scheduling Instructions SUSIE COBOS Pre--60 min Encounter Details Date Type Department Care Team Description 04/11/2019 Orders Only Division of Endocrinology Chad Dc Enteral Nutrition in [facility] Ashley Mendez R.N. (Primary Dx) [address] [place] [address] [place] [phone] [place], [place] [phone] Social History Tobacco Use Types Packs/Day Years [...] do you attend worship or Never 2018 jehovah's witness services? Do [...] Radiology Mark Eastman M.D., M.S. [address] [place] [phone] 04/26/2022 Office Visit Otorhinolaryngology Roxanne Lanza, SEWING TEACHER, C.N.P. [address] [place] [phone] 04/28/2022 Appointment Radiation Oncology Ursula Aguirre M.D. [address] [place] [phone] Scheduled Referrals Name Type Priority Associated Diagnoses [...] Prothrombin Time (PT/INR) (04/17/2019 12:53 PM CDT) [facility] Method Time Signature Prothrombin 12.8 (H) 9.4 [...] Organization Address City/State/ZIP Code Phon e Number [facility] - [address] [place] [address] 05 [facility] documented in this encounter Visit Diagnoses Diagnosis Home Enteral Nutrition - Primary Home Enteral Nutrition documented in this encounter
--- OUTSIDE RECORDS SUMMARY | 2022-04-07 09:42 | XMS_ITS | Encounter Summary ---
:1955 Author Organization [facility] Address [address] [place] [address] Care Team Providers Name Role Phone Unavailable Primary Care Provider Unavailable Reason for Visit Reason Comments Scheduling Encounter Details Date Type Department Care Team Description 04/11/2019 Documentation Division of Endocrinology in Ashley Dc [place], [place] M, R.N. 200 [address] [facility] [address] [place] [phone] [place], [place] [phone] Social History Tobacco Use Types Packs/Day Years [...] CDT SUBJECTIVE Summer Pérez PA-C consulted the [facility] clinic about the plan of care for [...] procedure should be scheduled for: GI--[facility] 2 or GI--[facility] Scheduling needs include: Procedure time: Per [...] Radiology Mark Eastman M.D., M.S. [address] [place] [phone] 04/26/2022 Office Visit Otorhinolaryngology Roxanne Lanza APRN, C.N.P. [address] [place] [phone] 04/28/2022 Appointment Radiation Oncology Ursula Aguirre M.D. [address] [place] [phone] documented as of this encounter Visit Diagnoses Not on filedocumented in this encounter
--- OUTSIDE RECORDS SUMMARY | 2022-04-07 09:42 | XMS_ITS | Encounter Summary ---
:1955 Author Organization [facility] Address [address] [place] [address] Care Team Providers Name Role Phone Unavailable Primary Care Provider Unavailable Reason for Referral Outpatient (Routine) - Closed Specialty Diagnoses / Procedures Referred By Contact Refer red To Contact Diagnoses Malignant Neoplasm Of Supraglottic (HCC) Dehydration Jose Schultz M.D. [facility] [address] [place] [address] 5 [phone] Referral ID Status Reason Start Date Expiration Visits Visits Date Requested Authorized [id number] Closed Patient 04/11/2019 04/10/2020 1 1 Preference Medication Prior Authorization (Routine) - Authorized Specialty Diagnoses / Procedures Referred By Contact Refer red To Contact Jose Schultz M .D. [address] [place] [phone] Referral ID Status Reason Start Date Expiration Date Visits V isits Requested Authorized [id number] Authorized 01/10/2019 04/12/2020 Outpatient (Routine) - Closed Specialty Diagnoses / Procedures Referred By Contact Tyler agarwal To Contact Endocrinology Diagnoses Malignant Neoplasm Of Supraglottic (HCC) Summer Pérez P.A.-C., [facility] [address] [place] [phone] Referral ID Status Reason Start Date Expiration Date Visits Requ ested Visits Authorized [id number] Closed 04/11/2019 04/10/2020 1 1 Outpatient (Routine) - Closed Specialty Diagnoses / Procedures Referred By Contact Refer red To Contact Diagnoses Malignant Neoplasm Of Supraglottic (HCC) Summer Pérez P.A.-C., [facility] ion Procedures Percutaneous Endoscopic Gastrostomy M.S. [address] [place] [phone] Referral ID Status Reason Start Date Expiration Date Visits Requ ested Visits Authorized [id number] Closed 04/11/2019 04/10/2020 1 1 Radiation Therapy (Routine) - Canceled Specialty Diagnoses / Procedures Referred By Contact Refer red To Contact Diagnoses Malignant Neoplasm Of Supraglottic (HCC) Ursula Aguirre M.D. [facility] Procedures Management Visit [address] [place] [address] Referral ID Status Reason Start Date Expiration Date Visits V isits Requested Authorized [id number] Canceled 03/15/2019 03/14/2020 1 1 Reason for Visit Radiation Therapy (Routine) - Canceled Specialty Diagnoses / Procedures Referred By Contact Refer red To Contact Diagnoses Malignant Neoplasm Of Supraglottic (HCC) Ursula Aguirre M.D. [facility] Region Procedures Management Visit [address] [place] [phone] Referral ID Status Reason Start Date Expiration Date Visits V isits Requested Authorized [id number] Canceled 03/15/2019 03/14/2020 1 1 Encounter Details Date Type Department Care Team Description 04/11/2019 Hospital Encounter Department of Mary Aguirre M.D. 200 [place] [phone] Dehydration (Primary Dx); Radiation Oncology Jose Schultz M.D. 200 [place] [phone] Malignant Neoplasm Of Supraglottic (HCC) in [place], [place] [address] [place] [phone] Social History Tobacco Use Types [...] do you attend taoism or Never 2018 restorationism services? Do you [...] that patient have feeding tube placement in [place] as soon as possible and this has been ordered. Patient is orthostatic and 1 L of 0.9 NS has been ordered byron administered at [facility] today and after 1 L if patient is still orthostatic thenshe will receive a 2nd liter. Our care team has also placed an as needed daily IV fluid order starting tomorrow and going through this coming Tuesday. Over the weekend patient can receive IV fluids as needed at the [facility] Emergency Room and this has been [...] by: Jose Schultz M.D. 04/11/2019 5:13 PM [facility] [address] [place] [address] documented in this encounter Plan of Treatment Upcoming Encounters Date Type Specialty Care Team Description 04/22/2022 Clinical Admitting/Central Communication Scheduling 04/26/2022 Appointment Radiology Mark Eastman M.D., M.S. [address] [place] [address] 04/26/2022 Office Visit Otorhinolaryngology Roxanne Lanza APRN, C.N.P. [address] [place] [phone] 04/28/2022 Appointment Radiation Oncology Ursula Aguirre M.D. [address] [place] [phone] Scheduled Orders Name Type Priority Associated Diagnoses Order S chedule Management Visit Radiation Oncology Routine Malignant Neoplasm Of Once for 1 Supraglottic (HCC) Occurrenc es starting 04/11/2019 unti l 04/11/2019 Scheduled Referrals Name Type Priority Associated Diagnoses Order S chedule Endocrinology - Home Outpatient Routine Malignant Neoplasm E xpected: enteral nutrition Referral Of Supraglottic 019 consult (clinic) ([facility]) (Approximat e), Expires: 04/11/2022 External referral Outpatient Routine Malignant Neoplasm Orde red: ancillary (non-Rincon) Referral Of Supraglottic 03/16 ([facility]) Dehydration documented as of this encounter Visit Diagnoses Diagnosis Dehydration - Primary Malignant Neoplasm Of Supraglottic (HCC) documented in this encounter
--- OUTSIDE RECORDS SUMMARY | 2022-04-07 09:43 | XMS_ITS | Encounter Summary ---
:1955 Author Organization [facility] Address [address] [place] [address] Care Team Providers Name Role Phone Unavailable Primary Care Provider Unavailable Reason for Referral Outpatient (Routine) - Canceled Specialty Diagnoses / Procedures Referred By Contact Refer red To Contact Radiation Oncology Diagnoses Malignant Neoplasm Of Supraglottic (HCC) Ursula Aguirre [facility] [place] [facility] M.D. 200 [place] [phone] Referral ID Status Reason Start Date Expiration Date Visits V isits Requested Authorized [id number] Canceled 03/15/2019 03/14/2020 1 1 Reason for Visit Outpatient (Routine) - Canceled Specialty Diagnoses / Procedures Referred By Contact Refer red To Contact Radiation Oncology Diagnoses Malignant Neoplasm Of Supraglottic (HCC) Ursula Aguirre [facility] [place] [facility] M.D. 200 [place] [address] Referral ID Status Reason Start Date Expiration Date Visits V isits Requested Authorized [id number] Canceled 03/15/2019 03/14/2020 1 1 Encounter Details Date Type Department Care Team Description 04/06/2019 Hospital Encounter Department of Mary Aguirre M.D. [address] [place] [phone] Malignant Neoplasm Of Radiation Oncology Jannet Cross R.N. 200 [place] [address] Supraglottic (HCC) in [place], [place] [address] [place] [phone] Social History Tobacco Use Types Packs/Day Years [...] do you attend denominational or Never 2018 oriental orthodox services? Do [...] Radiology Mark Eastman M.D., M.S. [address] [place] [phone] 04/26/2022 Office Visit Otorhinolaryngology Roxanne Lanza APRN, C.N.P. [address] [place] [phone] 04/28/2022 Appointment Radiation Oncology Ursula Aguirre M.D. [address] [place] [phone] Scheduled Referrals Name Type Priority Associated Diagnoses Order S chedule Radiation Oncology Outpatient Referral Routine Malignant Neopl asm Once for 1 nurse visit Of Supraglottic Occurrences (clinic) (HCC) starting 2018 until 9 documented as of this encounter Visit Diagnoses Diagnosis Malignant Neoplasm Of Supraglottic (HCC) documented in this encounter
--- OUTSIDE RECORDS SUMMARY | 2022-04-07 09:43 | XMS_ITS | Encounter Summary ---
:1955 Author Organization [facility] Address [address] [place] [address] Care Team Providers Name Role Phone Unavailable Primary Care Provider Unavailable Encounter Details Date Type Department Care Team Description 04/09/2019 Orders Only Department of Jannet Cross, Malignant Neoplasm Of Radiation Oncology in R.N. Supraglottic (HCC) [facility] [address] [facility] (Primary Dx) [address] [place] [phone] Social History Tobacco Use Types Packs/Day Years [...] do you attend orthodoxy or Never 2018 gnosticism services? Do you [...] Radiology Mark Eastman M.D., M.S. [address] [place] [phone] 04/26/2022 Office Visit Otorhinolaryngology Roxanne Lanza APRN, C.N.P. [address] [place] [phone] 04/28/2022 Appointment Radiation Oncology Ursula Aguirre M.D. [address] [place] [phone] documented as of this encounter Visit Diagnoses Diagnosis Malignant Neoplasm Of Supraglottic (HCC) - Primary documented in this encounter
--- OUTSIDE RECORDS SUMMARY | 2022-04-07 09:43 | XMS_ITS | Encounter Summary ---
:1955 Author Organization [facility] Address [address] [place] [address] Care Team Providers Name Role Phone Unavailable Primary Care Provider Unavailable Reason for Visit Radiation Therapy (Routine) - Closed Specialty Diagnoses / Procedures Referred By Contact Refer red To Contact Diagnoses Malignant Neoplasm Of Supraglottic (HCC) Ursula Aguirre M.D. [facility] Procedures Prior Auth Rad Tx [place] IMRT COMPLEX [address] [place] [address] [phone] Referral ID Status Reason Start Date Expiration Date Visits Requ ested Visits Authorized [id number] Closed 03/15/2019 03/14/2020 35 35 Encounter Details Date Type Department Care Team Description 04/09/2019 Hospital Encounter Department of Radiation Bud Aguirre I., [place]cology [place] [address] [facility] 1821 [place] [phone] Social History Tobacco Use Types Packs/Day Years [...] do you attend yazidi or Never 2018 yazdanism services? Do you belong to any clubs or No 02/21/2019 organizations such as yazidi groups, unions, fraAssertID or athletic groups, or school groups? How [...] Radiology Mark Eastman M.D., M.S. [address] [place] [phone] 04/26/2022 Office Visit Otorhinolaryngology Roxanne Lanza APRN, C.N.P. [address] [place] [phone] 04/28/2022 Appointment Radiation Oncology Ursula Aguirre M.D. [address] [place] [phone] documented as of this encounter Visit Diagnoses Not on filedocumented in this encounter
--- OUTSIDE RECORDS SUMMARY | 2022-04-07 09:43 | XMS_ITS | Encounter Summary ---
:[address] [facility] Address [address] [place] [address] Care Team Providers Name Role Phone Unavailable Primary Care Provider Unavailable Reason for Visit Radiation Therapy (Routine) - Closed Specialty Diagnoses / Procedures Referred By Contact Refer red To Contact Diagnoses Malignant Neoplasm Of Supraglottic (HCC) Ursula Aguirre M.D. [facility] Procedures Prior Auth Rad Tx [place] IMRT COMPLEX [address] [place] [phone] Referral ID Status Reason Start Date Expiration Date Visits Requ ested Visits Authorized [id number] Closed 03/15/2019 03/14/2020 35 35 Encounter Details Date Type Department Care Team Description 04/04/2019 Hospital Encounter Department of Radiation Bud Aguirre I., [place] [address] [facility] 18[address] [place] [phone] Social History Tobacco Use Types Packs/Day Years [...] do you attend adventism or Never 2018 jainism services? Do you belong to any clubs or No 02/21/2019 organizations such as adventism groups, unions, [employer] or athletic groups, or school groups? How [...] Radiology Mark Eastman M.D., M.S. [address] [place] [phone] 04/26/2022 Office Visit Otorhinolaryngology Roxanne Lanza APRN, C.N.P. [address] [place] [phone] 04/28/2022 Appointment Radiation Oncology Ursula Aguirre M.D. [address] [place] [phone] documented as of this encounter Visit Diagnoses Not on filedocumented in this encounter
--- OUTSIDE RECORDS SUMMARY | 2022-04-07 09:43 | XMS_ITS | Encounter Summary ---
:1955 Author Organization [facility] Address [address] [place] [address] Care Team Providers Name Role Phone Unavailable Primary Care Provider Unavailable Reason for Referral Radiation Therapy (Routine) - Canceled Specialty Diagnoses / Procedures Referred By Contact Refer red To Contact Diagnoses Malignant Neoplasm Of Supraglottic (HCC) Ursula Aguirre M.D. [facility] Procedures Management Visit [address] [place] [address] [phone] Referral ID Status Reason Start Date Expiration Date Visits V isits Requested Authorized [id number] Canceled 03/15/2019 03/14/2020 1 1 Reason for Visit Radiation Therapy (Routine) - Canceled Specialty Diagnoses / Procedures Referred By Contact Refer red To Contact Diagnoses Malignant Neoplasm Of Supraglottic (HCC) Ursula Aguirre M.D. [facility] Procedures Management Visit [address] [place] [phone] Referral ID Status Reason Start Date Expiration Date Visits V isits Requested Authorized [id number] Canceled 03/15/2019 03/14/2020 1 1 Encounter Details Date Type Department Care Team Description 03/29/2019 Hospital Encounter Department of Peter Schultz Neoplasm Of Radiation Oncology Jose Serna M.D. Supraglottic (HCC) in [place], [address] [place], [place] [address] [facility] [address] [place], [place] [phone] (Work) [phone] Social History Tobacco Use Types Packs/Day Years [...] do you attend scientology or Never 2018 confucianist services? Do you [...] Supraglottic (HCC) SUPERVISED BY: Jose Schultz M.D. ([id number]) HISTORY OF PRESENT ILLNESS Ms. Obdulia Narayan [...] Radiology Mark Eastman M.D., M.S. [address] [place] [phone] 04/26/2022 Office Visit Otorhinolaryngology Roxanne Lanza APRN, C.N.P. [address] [place] [phone] 04/28/2022 Appointment Radiation Oncology Ursula Aguirre M.D. [address] [place] [phone] Scheduled Orders Name Type Priority Associated Diagnoses Order S chedule Management Visit Radiation Oncology Routine Malignant Neoplasm Of Once for 1 Supraglottic (HCC) Occurrenc es starting 03/29/2019 unti l 03/29/2019 documented as of this encounter Visit Diagnoses Diagnosis Malignant Neoplasm Of Supraglottic (HCC) documented in this encounter
--- OUTSIDE RECORDS SUMMARY | 2022-04-07 09:43 | XMS_ITS | Encounter Summary ---
:1955 Author Organization [facility] Address [address] [place] [address] Care Team Providers Name Role Phone Unavailable Primary Care Provider Unavailable Reason for Referral Specialty Diagnoses / Procedures Referred By Contact Refer red To Contact Ursula Aguirre M.D. [facility] [address] [place] [address] [phone] Referral ID Status Reason Start Date Expiration Date Visits Requ ested Visits Authorized Encounter Details Date Type Department Care Team Description 03/30/2019 Hospital Encounter Department of Mary Aguirre M.D. [address] [place] [phone] Malignant Neoplasm Of Radiation Oncology Silke Garcia C.C.RShitalCShital Supraglottic (HCC) in [place], [place] [address] [place] [phone] Social History Tobacco Use Types Packs/Day Years [...] Chew 81 mg every 0 tablet evening. 121nexus Aspirin fluticasone propionate Administer 1 spray 0 [...] Radiology Mark Eastman M.D., M.S. [address] [place] [phone] 04/26/2022 Office Visit Otorhinolaryngology Roxanne Lanza APRN, C.N.P. [address] [place] [phone] 04/28/2022 Appointment Radiation Oncology Ursula Aguirre M.D. [address] [place] [phone] Scheduled Referrals Name Type Priority Associated Diagnoses Order S chedule Radiation Oncology Outpatient Referral Routine Malignant Neopl asm Once for 1 - PRO education Of Supraglottic Occurrenc es visit (HCC) starting 2018 until 9 documented as of this encounter Visit Diagnoses Diagnosis Malignant Neoplasm Of Supraglottic (HCC) documented in this encounter
--- OUTSIDE RECORDS SUMMARY | 2022-04-07 09:43 | XMS_ITS | Encounter Summary ---
:1955 Author Organization [facility] Address [address] [place] [address] Care Team Providers Name Role Phone Unavailable Primary Care Provider Unavailable Reason for Visit Radiation Therapy (Routine) - Closed Specialty Diagnoses / Procedures Referred By Contact Refer red To Contact Diagnoses Malignant Neoplasm Of Supraglottic (HCC) Ursula Aguirre M.D. [facility] Procedures Prior Auth Rad Tx [place] IMRT COMPLEX [address] [place] [address] [phone] Referral ID Status Reason Start Date Expiration Date Visits Requ ested Visits Authorized [id number] Closed 03/15/2019 03/14/2020 35 35 Encounter Details Date Type Department Care Team Description 04/05/2019 Hospital Encounter Department of Radiation Bud Aguirre I., [place] [address] [facility] [address] [place] [phone] Social History Tobacco Use Types Packs/Day Years [...] do you attend taoism or Never 2018 rastafarian services? Do you belong to any clubs or No 02/21/2019 organizations such as taoism groups, unions, fraBomber[employer] or athletic groups, or school groups? How [...] Radiology Mark Eastman M.D., M.S. [address] [place] [phone] 04/26/2022 Office Visit Otorhinolaryngology Roxanne Lanza APRN, C.N.P. [address] [place] [phone] 04/28/2022 Appointment Radiation Oncology Ursula Aguirre M.D. [address] [place] [phone] documented as of this encounter Visit Diagnoses Not on filedocumented in this encounter
--- OUTSIDE RECORDS SUMMARY | 2022-04-07 09:43 | XMS_ITS | Encounter Summary ---
:1955 Author Organization [facility] Address [address] [place] [address] Care Team Providers Name Role Phone Unavailable Primary Care Provider Unavailable Reason for Visit Radiation Therapy (Routine) - Closed Specialty Diagnoses / Procedures Referred By Contact Refer red To Contact Diagnoses Malignant Neoplasm Of Supraglottic (HCC) Ursula Aguirre M.D. [facility] Procedures Prior Auth Rad Tx [place] IMRT COMPLEX [address] [place] [address] [phone] Referral ID Status Reason Start Date Expiration Date Visits Requ ested Visits Authorized [id number] Closed 03/15/2019 03/14/2020 35 35 Encounter Details Date Type Department Care Team Description 04/02/2019 Hospital Encounter Department of Radiation Bud Aguirre I., [place] [address] [facility] [address] [place] [address] [phone] Social History Tobacco Use Types Packs/Day Years [...] do you attend mosque or Never 2018 congregational services? Do you belong to any clubs or No 02/21/2019 organizations such as mosque groups, unions, fraVitaSensis or athletic groups, or school groups? How [...] Radiology Mark Eastman M.D., M.S. [address] [place] [phone] 04/26/2022 Office Visit Otorhinolaryngology Roxanne Lanza APRN, C.N.P. [address] [place] [phone] 04/28/2022 Appointment Radiation Oncology Ursula Aguirre M.D. [address] [place] [phone] documented as of this encounter Visit Diagnoses Not on filedocumented in this encounter
--- OUTSIDE RECORDS SUMMARY | 2022-04-07 09:43 | XMS_ITS | Encounter Summary ---
:1955 Author Organization [facility] Address [address] [place] [address]135 Care Team Providers Name Role Phone Unavailable Primary Care Provider Unavailable Reason for Visit Radiation Therapy (Routine) - Closed Specialty Diagnoses / Procedures Referred By Contact Refer red To Contact Diagnoses Malignant Neoplasm Of Supraglottic (HCC) Ursula Aguirre M.D. [facility] Procedures Prior Auth Rad Tx [place] IMRT COMPLEX [address] [place] [address] [phone] Referral ID Status Reason Start Date Expiration Date Visits Requ ested Visits Authorized [id number] Closed 03/15/2019 03/14/2020 35 35 Encounter Details Date Type Department Care Team Description 04/04/2019 Hospital Encounter Department of Radiation Bud Aguirre I., [place] 200 [address] [facility] 1821 [place] [address] [phone] Social History Tobacco Use Types Packs/Day Years [...] do you attend rastafari or Never 2018 alevism services? Do you belong to any clubs or No 02/21/2019 organizations such as rastafari groups, unions, fraCo-Work or athletic groups, or school groups? How [...] Radiology Mark Eastman M.D., M.S. [address] [place] [phone] 04/26/2022 Office Visit Otorhinolaryngology Roxanne Lanza APRN, C.N.P. [address] [place] [phone] 04/28/2022 Appointment Radiation Oncology Ursula Aguirre M.D. [address] [place] [phone] documented as of this encounter Visit Diagnoses Not on filedocumented in this encounter
--- OUTSIDE RECORDS SUMMARY | 2022-04-07 09:43 | XMS_ITS | Encounter Summary ---
:1955 Author Organization [facility] Address [address] [place] [address] Care Team Providers Name Role Phone Unavailable Primary Care Provider Unavailable Reason for Referral Outpatient (Routine) - Canceled Specialty Diagnoses / Procedures Referred By Contact Refer red To Contact Radiation Oncology Diagnoses Malignant Neoplasm Of Supraglottic (HCC) Ursula Aguirre [facility] [place] [facility] M.D. 200 [place] [address] Referral ID Status Reason Start Date Expiration Date Visits V isits Requested Authorized [id number] Canceled 03/15/2019 03/14/2020 1 1 Reason for Visit Outpatient (Routine) - Canceled Specialty Diagnoses / Procedures Referred By Contact Refer red To Contact Radiation Oncology Diagnoses Malignant Neoplasm Of Supraglottic (HCC) Ursula Aguirre [facility] [place] [facility] M.D. 200 [place] [address] Referral ID Status Reason Start Date Expiration Date Visits V isits Requested Authorized [id number] Canceled 03/15/2019 03/14/2020 1 1 Encounter Details Date Type Department Care Team Description 04/09/2019 Hospital Encounter Department of Mary Aguirre M.D. [address] [place] [phone] Malignant Neoplasm Of Radiation Oncology Jannet Cross R.N. 200 [place] [address] Supraglottic (HCC) in [place], [place] [address] [place] [address] Social History Tobacco Use Types Packs/Day Years [...] do you attend worship or Never 2018 sikhism services? Do you [...] Radiology Mark Eastman M.D., M.S. [address] [place] [phone] 04/26/2022 Office Visit Otorhinolaryngology Roxanne Lanza, INSULATION PROFESSIONAL, C.N.P. [address] [place] [phone] 04/28/2022 Appointment Radiation Oncology Ursula Aguirre M.D. [address] [place] [phone] Scheduled Referrals Name Type Priority Associated Diagnoses Order S chedule Radiation Oncology Outpatient Referral Routine Malignant Neopl asm Once for 1 nurse visit Of Supraglottic Occurrences (clinic) (HCC) starting 2018 until 9 documented as of this encounter Visit Diagnoses Diagnosis Malignant Neoplasm Of Supraglottic (HCC) documented in this encounter
--- OUTSIDE RECORDS SUMMARY | 2022-04-07 09:43 | XMS_ITS | Encounter Summary ---
:1955 Author Organization [facility] Address [address] [place] [address] Care Team Providers Name Role Phone Unavailable Primary Care Provider Unavailable Reason for Referral Radiation Therapy (Routine) - Canceled Specialty Diagnoses / Procedures Referred By Contact Refer red To Contact Diagnoses Malignant Neoplasm Of Supraglottic (HCC) Ursula Aguirre M.D. [facility] Procedures Management Visit [address] [place] [phone] Referral ID Status Reason Start Date Expiration Date Visits V isits Requested Authorized [id number] Canceled 03/15/2019 03/14/2020 1 1 Reason for Visit Radiation Therapy (Routine) - Canceled Specialty Diagnoses / Procedures Referred By Contact Refer red To Contact Diagnoses Malignant Neoplasm Of Supraglottic (HCC) Ursula Aguirre M.D. [facility] Procedures Management Visit [address] [place] [address] [phone] Referral ID Status Reason Start Date Expiration Date Visits V isits Requested Authorized [id number] Canceled 03/15/2019 03/14/2020 1 1 Encounter Details Date Type Department Care Team Description 04/04/2019 Hospital Encounter Department of Ursula Aguirre Neoplasm Of Radiation Oncology Kimberley Bacon Supraglottic (HCC) in [place], [address] [place], [place] [address] [facility] [address] [place], [place] [phone] (Work) [phone] Social History Tobacco Use Types Packs/Day Years [...] Ursula Aguirre M.D. HISTORY OF PRESENT ILLNESS Obduila Narayan is a 63-year-old female with supraglottic [...] Radiology Mark Eastman M.D., M.S. [address] [place] [phone] 04/26/2022 Office Visit Otorhinolaryngology Roxanne Lanza APRN, C.N.P. [address] [place] [phone] 04/28/2022 Appointment Radiation Oncology Ursula Aguirre M.D. [address] [place] [phone] Scheduled Orders Name Type Priority Associated Diagnoses Order S chedule Management Visit Radiation Oncology Routine Malignant Neoplasm Of Once for 1 Supraglottic (HCC) Occurrenc es starting 04/04/2019 unti l 04/04/2019 documented as of this encounter Visit Diagnoses Diagnosis Malignant Neoplasm Of Supraglottic (HCC) documented in this encounter
--- OUTSIDE RECORDS SUMMARY | 2022-04-07 09:43 | XMS_ITS | Encounter Summary ---
:1955 Author Organization [facility] Address [address] [place] [address] Care Team Providers Name Role Phone Unavailable Primary Care Provider Unavailable Reason for Visit Radiation Therapy (Routine) - Closed Specialty Diagnoses / Procedures Referred By Contact Refer red To Contact Diagnoses Malignant Neoplasm Of Supraglottic (HCC) Ursula Aguirre M.D. [facility] Procedures Prior Auth Rad Tx [place] IMRT COMPLEX [address] [place] [address] [phone] Referral ID Status Reason Start Date Expiration Date Visits Requ ested Visits Authorized [id number] Closed 03/15/2019 03/14/2020 35 35 Encounter Details Date Type Department Care Team Description 03/30/2019 Hospital Encounter Department of Radiation Bud Aguirre I., [place]cology [place] [address] [facility] 1821 [place] [phone] Social History Tobacco Use Types Packs/Day Years [...] do you attend adventism or Never 2018 sabianist services? Do you belong to any clubs or No 02/21/2019 organizations such as adventism groups, unions, fraGabstr or athletic groups, or school groups? How [...] Radiology Mark Eastman M.D., M.S. [address] [place] [phone] 04/26/2022 Office Visit Otorhinolaryngology Roxanne Lanza APRN, C.N.P. [address] [place] [phone] 04/28/2022 Appointment Radiation Oncology Ursula Aguirre M.D. [address] [place] [phone] documented as of this encounter Visit Diagnoses Not on filedocumented in this encounter
--- OUTSIDE RECORDS SUMMARY | 2022-04-07 09:43 | XMS_ITS | Encounter Summary ---
:1955 Author Organization [facility] Address [address] [place] [address] Care Team Providers Name Role Phone Unavailable Primary Care Provider Unavailable Reason for Visit Radiation Therapy (Routine) - Closed Specialty Diagnoses / Procedures Referred By Contact Refer red To Contact Diagnoses Malignant Neoplasm Of Supraglottic (HCC) Ursula Aguirre M.D. [facility] Procedures Prior Auth Rad Tx [place] IMRT COMPLEX [address] [place] [address] [phone] Referral ID Status Reason Start Date Expiration Date Visits Requ ested Visits Authorized [id number] Closed 03/15/2019 03/14/2020 35 35 Encounter Details Date Type Department Care Team Description 04/10/2019 Hospital Encounter Department of Radiation Bud Aguirre I., [place]cology [place] 200 [address] [facility] 1821 [place] [address] [phone] Social History Tobacco Use Types Packs/Day Years [...] do you attend scientologist or Never 2018 gnosticist services? Do you [...] Radiology Mark Eastman M.D., M.S. [address] [place] [address] 04/26/2022 Office Visit Otorhinolaryngology Roxanne Lanza APRN, C.N.P. [address] [place] [phone] 04/28/2022 Appointment Radiation Oncology Ursula Aguirre M.D. [address] [place] [phone] documented as of this encounter Visit Diagnoses Not on filedocumented in this encounter
--- OUTSIDE RECORDS SUMMARY | 2022-04-07 09:43 | XMS_ITS | Encounter Summary ---
:1955 Author Organization [facility] Address [address] [place] [address] Care Team Providers Name Role Phone Unavailable Primary Care Provider Unavailable Reason for Visit Radiation Therapy (Routine) - Closed Specialty Diagnoses / Procedures Referred By Contact Refer red To Contact Diagnoses Malignant Neoplasm Of Supraglottic (HCC) Ursula Aguirre M.D. [facility] Procedures Prior Auth Rad Tx [place] IMRT COMPLEX [address] [place] [address] [phone] Referral ID Status Reason Start Date Expiration Date Visits Requ ested Visits Authorized [id number] Closed 03/15/2019 03/14/2020 35 35 Encounter Details Date Type Department Care Team Description 04/06/2019 Hospital Encounter Department of Radiation Bud Aguirre I., [place]cology in [place] 200 [address] [facility] 1821 [place] [address] [phone] Social History Tobacco Use Types Packs/Day Years [...] do you attend religion or Never 2018 worship services? Do you belong to any clubs or No 02/21/2019 organizations such as religion groups, unions, fraPhonethics Mobile Media or athletic groups, or school groups? [...] Radiology Mark Eastman M.D., M.S. [address] [place] [phone] 04/26/2022 Office Visit Otorhinolaryngology Roxanne Lanza APRN, C.N.P. [address] [place] [phone] 04/28/2022 Appointment Radiation Oncology Ursula Aguirre M.D. [address] [place] [phone] documented as of this encounter Visit Diagnoses Not on filedocumented in this encounter
--- OUTSIDE RECORDS SUMMARY | 2022-04-07 09:43 | XMS_ITS | Encounter Summary ---
:1955 Author Organization [facility] Address [address] [place] [address] Care Team Providers Name Role Phone Unavailable Primary Care Provider Unavailable Reason for Referral Outpatient (Routine) - Closed Specialty Diagnoses / Procedures Referred By Contact Refer red To Contact Nutrition Diagnoses Malignant Neoplasm Of Supraglottic (HCC) Summer Pérez P.A.-C., [facility] [address] [place] [address] [phone] Referral ID Status Reason Start Date Expiration Date Visits Requ ested Visits Authorized [id number] Closed 03/29/2019 03/28/2020 1 1 Encounter Details Date Type Department Care Team Description 03/29/2019 Orders Only Department of Summer Pérez Malignant Joao plasm Of Radiation Oncology in [place], [place] .S. Supraglottic (HCC) [facility] [address] [place] [address] (Primary Dx) 1821 [place] [phone] Social History Tobacco Use Types Packs/Day Years [...] do you attend sikhism or Never 2018 denominational services? Do you [...] Radiology Mark Eastman M.D., M.S. [address] [place] [phone] 04/26/2022 Office Visit Otorhinolaryngology Roxanne Lanza APRN, C.N.P. [address] [place] [address] [phone] 04/28/2022 Appointment Radiation Oncology Ursula Aguirre M.D. [address] [place] [phone] Scheduled Referrals Name Type Priority Associated Diagnoses Order S chedule Nutrition - Outpatient Referral Routine Malignant Neoplasm 5 Occurrences Medical nutrition Of Supraglottic startin g 03/29/2019 therapy consult (HCC) until 2019 (clinic) documented as of this encounter Visit Diagnoses Diagnosis Malignant Neoplasm Of Supraglottic (HCC) - Primary documented in this encounter
--- OUTSIDE RECORDS SUMMARY | 2022-04-07 09:43 | XMS_ITS | Encounter Summary ---
:1955 Author Organization [facility] Address [address] [place] [address] Care Team Providers Name Role Phone Unavailable Primary Care Provider Unavailable Reason for Referral Outpatient (Routine) - Closed Specialty Diagnoses / Procedures Referred By Contact Refer red To Contact Nutrition Diagnoses Malignant Neoplasm Of Supraglottic (HCC) Summer Pérez P.A.-C., [facility] [address] [place] [phone] Referral ID Status Reason Start Date Expiration Date Visits Requ ested Visits Authorized [id number] Closed 03/29/2019 03/28/2020 1 1 Reason for Visit Outpatient (Routine) - Closed Specialty Diagnoses / Procedures Referred By Contact Refer red To Contact Nutrition Diagnoses Malignant Neoplasm Of Supraglottic (HCC) Summer Pérez P.A.-C., [facility] [address] [place] [phone] Referral ID Status Reason Start Date Expiration Date Visits Requ ested Visits Authorized [id number] Closed 03/29/2019 03/28/2020 1 1 Encounter Details Date Type Department Care Team Description 04/05/2019 Hospital Encounter Department of Summer Pérez P.A.-C., M.S. [address] [place] [phone] Malignant Neoplasm Of Radiation Oncology Ryanne Mcbride, JUANITO [address] [place] [address] Supraglottic (HCC) in [place], [place] 182 [place] [address] Social History Tobacco Use Types [...] do you attend mu-ism or Never 2018 restorationism services? 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 Nutrition Prescription/Recommendation 3127-0240 kcals, 88-105 grams protein, 9+ cups fluid [...] Radiology Mark Eastman M.D., M.S. [address] [place] [phone] 04/26/2022 Office Visit Otorhinolaryngology Roxanne Lanza APRN, C.N.P. [address] [place] [phone] 04/28/2022 Appointment Radiation Oncology Usrula Aguirre M.D. [address] [place] [phone] Scheduled Referrals Name Type Priority Associated Diagnoses Order S chedule Nutrition - Outpatient Referral Routine Malignant Neoplasm On ce for 1 Medical nutrition Of Supraglottic Occurre nces therapy consult (HCC) starting (clinic) until 9 documented as of this encounter Visit Diagnoses Diagnosis Malignant Neoplasm Of Supraglottic (HCC) documented in this encounter
--- OUTSIDE RECORDS SUMMARY | 2022-04-07 09:43 | XMS_ITS | Encounter Summary ---
:1955 Author Organization [facility] Address [address] [place] [address] Care Team Providers Name Role Phone Unavailable Primary Care Provider Unavailable Reason for Visit Radiation Therapy (Routine) - Closed Specialty Diagnoses / Procedures Referred By Contact Refer red To Contact Diagnoses Malignant Neoplasm Of Supraglottic (HCC) Ursula Aguirre M.D. [facility] Procedures Prior Auth Rad Tx [place] IMRT COMPLEX [address] [place] [address] [phone] Referral ID Status Reason Start Date Expiration Date Visits Requ ested Visits Authorized [id number] Closed 03/15/2019 03/14/2020 35 35 Encounter Details Date Type Department Care Team Description 04/06/2019 Hospital Encounter Department of Radiation Bud Aguirre I., Oncology [place] [address] [facility] 18[address] [place] [phone] Social History Tobacco Use Types Packs/Day Years [...] do you attend confucianist or Never 2018 islam services? Do you belong to any clubs or No 02/21/2019 organizations such as confucianist groups, unions, fraApplied NanoWorks or athletic groups, [...] Radiology Mark Eastman M.D., M.S. [address] [place] [phone] 04/26/2022 Office Visit Otorhinolaryngology Roxanne aLnza APRN, C.N.P. [address] [place] [phone] 04/28/2022 Appointment Radiation Oncology Ursula Aguirre M.D. [address] [place] [phone] documented as of this encounter Visit Diagnoses Not on filedocumented in this encounter
--- OUTSIDE RECORDS SUMMARY | 2022-04-07 09:43 | XMS_ITS | Encounter Summary ---
:1955 Author Organization [facility] Address [address] [place] [address] Care Team Providers Name Role Phone Unavailable Primary Care Provider Unavailable Reason for Referral Specialty Diagnoses / Procedures Referred By Contact Refer red To Contact Ursula Aguirre M.D. [facility] [address] [place] [phone] Referral ID Status Reason Start Date Expiration Date Visits Requ ested Visits Authorized Encounter Details Date Type Department Care Team Description 03/30/2019 Hospital Encounter Department of Mary Aguirre M.D. [address] [place] [phone] Malignant Neoplasm Of Radiation Oncology Jannet Cross R.N. [address] [place] [phone] Supraglottic (HCC) in [place], [place] 1821 [place] [phone] Social History Tobacco Use Types Packs/Day Years [...] do you attend moravian or Never 2018 taoism services? Do you [...] Radiology Mark Eastman M.D., M.S. [address] [place] [phone] 04/26/2022 Office Visit Otorhinolaryngology Roxanne Lanza, OPERATING SYSTEMS PROGRAMMER, C.N.P. [address] [place] [phone] 04/28/2022 Appointment Radiation Oncology Ursula Aguirre M.D. [address] [place] [phone] Scheduled Referrals Name Type Priority Associated Diagnoses Order S chedule Radiation Oncology Outpatient Referral Routine Malignant Neopl asm Once for 1 - Nurse education Of Supraglottic Occurre nces visit (clinic) (HCC) starting 03/15 until 9 documented as of this encounter Visit Diagnoses Diagnosis Malignant Neoplasm Of Supraglottic (HCC) documented in this encounter
--- OUTSIDE RECORDS SUMMARY | 2022-04-07 09:43 | XMS_ITS | Encounter Summary ---
:1955 Author Organization [facility] Address [address] [place] [address] 15[address] Care Team Providers Name Role Phone Unavailable Primary Care Provider Unavailable Reason for Referral Outpatient (Routine) - Closed Specialty Diagnoses / Procedures Referred By Contact Refer red To Contact Nutrition Diagnoses Malignant Neoplasm Of Supraglottic (HCC) Ursula Aguirre M.D. [address] [phone] Referral ID Status Reason Start Date Expiration Date Visits Requ ested Visits Authorized [id number] Closed 03/15/2019 03/14/2020 1 1 Reason for Visit Outpatient (Routine) - Closed Specialty Diagnoses / Procedures Referred By Contact Refer red To Contact Nutrition Diagnoses Malignant Neoplasm Of Supraglottic (HCC) Ursula Aguirre M.D. [facility] [address] [place] [address] [phone] Referral ID Status Reason Start Date Expiration Date Visits Requ ested Visits Authorized [id number] Closed 03/15/2019 03/14/2020 1 1 Encounter Details Date Type Department Care Team Description 03/29/2019 Hospital Encounter Department of Mary Aguirre M.D. [address] [place] [phone] Malignant Neoplasm Radiation Oncology Natasha Brandon, ALINEN [address] [place] [phone] Of Supraglottic in [place], ([facility]) [place] [address] [place] [phone] Social History Tobacco Use Types Packs/Day Years [...] do you attend voodoo or Never 2018 congregational services? Do you [...] Social and Family History She lives in [place], [place] with one of her sons and [id number]. She will live in [place] with a different son during the week (Tuesday thru Tuesday). She is . She has 4 sons, 10 grand children and 2 great grandchildren. 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 She is a current [...] 2 BLT sandwiches. She plans to have [employer] for supper. She drinks coffee and 7-8 [...] 87.6 kg Date: 03/29/19 Total Calorie Needs: 8276-6226 (HB basal + 20%) Estimated Protein Needs: [...] treatment Nutrition Diagnosis Reassessment: Ongoing Nutrition Prescription/Recommendation 1758-0209 kcals, 88-105 grams protein, 9+ cups fluid [...] Mark Eastman M.D., M.S. [address] [place] [phone] 04/26/2022 Office Visit Otorhinolaryngology Roxanne Lanza, ASSISTANT SALES DIRECTOR, C.N.P. [address] [place] [phone] 04/28/2022 Appointment Radiation Oncology Ursula Aguirre M.D. [address] [place] [phone] Scheduled Referrals Name Type Priority Associated Diagnoses Order S chedule Nutrition - Outpatient Referral Routine Malignant Neoplasm On ce for 1 Medical nutrition Of Supraglottic Occurre nces therapy consult (HCC) starting (clinic) until 9 documented as of this encounter Visit Diagnoses Diagnosis Malignant Neoplasm Of Supraglottic (HCC) documented in this encounter
--- OUTSIDE RECORDS SUMMARY | 2022-04-07 09:43 | XMS_ITS | Encounter Summary ---
:1955 Author Organization [facility] Address [address] [place] [address] Care Team Providers Name Role Phone Unavailable Primary Care Provider Unavailable Reason for Referral Radiation Therapy (Routine) - Canceled Specialty Diagnoses / Procedures Referred By Contact Refer red To Contact Diagnoses Malignant Neoplasm Of Supraglottic (HCC) Ursula Aguirre M.D. [facility] Procedures Management Visit [address] [place] [address] [phone] Referral ID Status Reason Start Date Expiration Date Visits V isits Requested Authorized [id number] Canceled 04/09/2019 04/08/2020 10 10 Reason for Visit Radiation Therapy (Routine) - Canceled Specialty Diagnoses / Procedures Referred By Contact Refer red To Contact Diagnoses Malignant Neoplasm Of Supraglottic (HCC) Ursula Aguirre M.D. [facility] Region Procedures Management Visit [address] [place] [address] [phone] Referral ID Status Reason Start Date Expiration Date Visits V isits Requested Authorized [id number] Canceled 04/09/2019 04/08/2020 10 10 Encounter Details Date Type Department Care Team Description 04/09/2019 Hospital Encounter Department of Ursula Aguirre Neoplasm Of Radiation Oncology Kimberley Bacon Supraglottic (HCC) in [place], [address] [place], [place] 18[address] [facility] [address] [place], [place] [phone] (Work) [phone] Social History Tobacco Use Types Packs/Day Years [...] do you attend pentecostal or Never 2018 amish services? Do you [...] Radiology Mark Eastman M.D., M.S. [address] [place] [phone] 04/26/2022 Office Visit Otorhinolaryngology Roxanne Lanza, STEVEDORE DOCK, C.N.P. [address] [place] [phone] 04/28/2022 Appointment Radiation Oncology Ursula Aguirre M.D. [address] [place] [phone] Scheduled Orders Name Type Priority Associated Diagnoses Order S chedule Management Visit Radiation Oncology Routine Malignant Neoplasm Of Once for 1 Supraglottic (HCC) Occurrenc es starting 04/09/2019 unti l 04/09/2019 documented as of this encounter Visit Diagnoses Diagnosis Malignant Neoplasm Of Supraglottic (HCC) documented in this encounter
--- OUTSIDE RECORDS SUMMARY | 2022-04-07 09:43 | XMS_ITS | Encounter Summary ---
:1955 Author Organization [facility] Address [address] [place] [address] Care Team Providers Name Role Phone Unavailable Primary Care Provider Unavailable Reason for Visit Radiation Therapy (Routine) - Closed Specialty Diagnoses / Procedures Referred By Contact Refer red To Contact Diagnoses Malignant Neoplasm Of Supraglottic (HCC) Ursula Aguirre M.D. [facility] Procedures Prior Auth Rad Tx [place] IMRT COMPLEX [address] [place] [address] [phone] Referral ID Status Reason Start Date Expiration Date Visits Requ ested Visits Authorized [id number] Closed 03/15/2019 03/14/2020 35 35 Encounter Details Date Type Department Care Team Description 04/03/2019 Hospital Encounter Department of Radiation Bud Aguirre I., Oncology [place] [address] [facility] [address] [place] [phone] Social History Tobacco Use Types Packs/Day Years [...] do you attend nondenominational or Never 2018 confucianism services? Do you belong to any clubs or No 02/21/2019 organizations such as nondenominational groups, unions, fraClear [employer] or athletic groups, or school groups? How [...] Radiology Mark Eastman M.D., M.S. [address] [place] [phone] 04/26/2022 Office Visit Otorhinolaryngology Roxanne Lanza APRN, C.N.P. [address] [place] [phone] 04/28/2022 Appointment Radiation Oncology Ursula Aguirre M.D. [address] [place] [phone] documented as of this encounter Visit Diagnoses Not on filedocumented in this encounter
--- OUTSIDE RECORDS SUMMARY | 2022-04-07 09:44 | XMS_ITS | Encounter Summary ---
:[address] [facility] Address [address] [place] [address] Care Team Providers Name Role Phone Unavailable Primary Care Provider Unavailable Reason for Referral Outpatient (Routine) - Closed Specialty Diagnoses / Procedures Referred By Contact Refer any To Contact Otorhinolaryngology Frank Arrieta M.D . 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 [address] [phone] Referral ID Status Reason Start Date Expiration Date Visits Requ ested Visits Authorized [id number] Closed 02/22/2019 02/22/2020 1 1 Encounter Details Date Type Department Care Team Description 02/22/2019 Orders Only Department of Frank Arrieta Malignant Joao plasm Otorhinolaryngology guanakito Shoemaker M.D. Of ad Face And [place], [place] Neck (HCC) (Primary [address] [place] [address]) [place] [phone] Social History Tobacco Use Types Packs/Day [...] do you attend jewish or Never 2018 mandaeism services? Do you belong to any clubs or No 02/21/2019 organizations such as jewish groups, unions, fraGlocal or athletic groups, or school groups? How [...] Radiology Mark Eastman M.D., M.S. [address] [place] [phone] 04/26/2022 Office Visit Otorhinolaryngology oRxanne Lanza APRN, C.N.P. [address] [place] [phone] 04/28/2022 Appointment Radiation Oncology Ursula Aguirre M.D. [address] [place] [phone] Scheduled Referrals Name Type Priority Associated Order [...]
--- OUTSIDE RECORDS SUMMARY | 2022-04-07 09:44 | XMS_ITS | Encounter Summary ---
:1955 Author Organization [facility] Address [address] [place] [address] Care Team Providers Name Role Phone Unavailable Primary Care Provider Unavailable Reason for Referral Radiation Therapy (Routine) - Closed Specialty Diagnoses / Procedures Referred By Contact Refer red To Contact Diagnoses Malignant Neoplasm Of Supraglottic (HCC) Ursula Aguirre M.D. [facility] Region Procedures Initial Rad Onc Treatment Planning CT Simulation [address] [place] [phone] Referral ID Status Reason Start Date Expiration Date Visits Requ ested Visits Authorized [id number] Closed 03/15/2019 03/14/2020 1 1 Specialty Diagnoses / Procedures Referred By Contact Refer red To Contact Ursula Aguirre M.D. [facility] [address] [place] [address] [phone] Referral ID Status Reason Start Date Expiration Date Visits Requ ested Visits Authorized Outpatient (Routine) - Closed Specialty Diagnoses / Procedures Referred By Contact Refer red To Contact Social Work Ursula Aguirre M.D. [facility] Region [address] [place] [address] [phone] Referral ID Status Reason Start Date Expiration Date Visits Requ ested Visits Authorized [id number] Closed 03/15/2019 03/14/2020 1 1 Outpatient (Routine) - Closed Specialty Diagnoses / Procedures Referred By Contact Refer red To Contact Nutrition Diagnoses Malignant Neoplasm Of Supraglottic (HCC) Ursula Aguirre M.D. [facility] Region [address] [place], [place] [phone] Referral ID Status Reason Start Date Expiration Date Visits Requ ested Visits Authorized [id number] Closed 03/15/2019 03/14/2020 1 1 Specialty Diagnoses / Procedures Referred By Contact Refer red To Contact Ursula Aguirre M.D. [facility] [address] [place], [place] [phone] Referral ID Status Reason Start Date Expiration Date Visits Requ ested Visits Authorized Radiation Therapy (Routine) - Closed Specialty Diagnoses / Procedures Referred By Contact Refer red To Contact Diagnoses Malignant Neoplasm Of Supraglottic (HCC) Ursula Aguirre M.D. [facility] Procedures Prior Auth Rad Tx ID IMRT COMPLEX [address] [place], [place] [phone] Referral ID Status Reason Start Date Expiration Date Visits Requ ested Visits Authorized [id number] Closed 03/15/2019 03/14/2020 35 35 Encounter Details Date Type Department Care Team Description 03/15/2019 Orders Only Department of Ursula Aguirre N eoplasm Of Radiation Oncology in [place] Bacon Supraglottic (HCC) [facility] [address] [facility] (Primary Dx) [address] [place] [phone] Social History Tobacco Use Types Packs/Day Years [...] do you attend mandaen or Never 2018 mu-ism services? Do you [...] Radiology Mark Eastman M.D., M.S. [address] [place] [phone] 04/26/2022 Office Visit Otorhinolaryngology Roxanne Lanza, SEED SERVICE ADVISOR, C.N.P. [address] [place] [phone] 04/28/2022 Appointment Radiation Oncology Ursula Aguirre M.D. [address] [place] [phone] Scheduled Orders Name Type Priority Associated Diagnoses Order S chedule Prior Auth Rad Radiation Oncology Routine Malignant Neoplasm O f Ordered: Tx Supraglottic (HCC) 9 Scheduled Referrals Name Type Priority Associated Diagnoses Order S chedule Radiation Oncology Outpatient Referral Routine Malignant Neopl asm Of Expected: - PRO education Supraglottic ([facility]) 2018 visit (Approximate), Expires: 03/15/2022 Nutrition - Medical Outpatient Referral Routine Malignant Neop lasm Of Expected: nutrition therapy Supraglottic ([facility]) 08/2018 consult (clinic) (Approximat e), Expires: 03/15/2020 Social Work office Outpatient Referral Routine Ex pected: visit (clinic) 03/15/2019 (Approximate), Expires: 03/15/2020 Radiation Oncology Outpatient Referral Routine Malignant Neopl asm Of Expected: - Nurse education Supraglottic ([facility]) 08/2018 visit (clinic) (Approximate) , Expires: 03/15/2020 [...] ?? Patient position: supine Arm/Hand position: holding Seed Packer Ring ?? Custom immobilization device: 5 point [...]
--- OUTSIDE RECORDS SUMMARY | 2022-04-07 09:44 | XMS_ITS | Encounter Summary ---
:1955 Author Organization [facility] Address [address] [place] [address] 8[address] Care Team Providers Name Role Phone Unavailable Primary Care Provider Unavailable Reason for Visit Radiation Therapy (Routine) - Closed Specialty Diagnoses / Procedures Referred By Contact Refer red To Contact Diagnoses Malignant Neoplasm Of Supraglottic (HCC) Ursula Aguirre M.D. [facility] Procedures Prior Auth Rad Tx [place] IMRT COMPLEX [address] [place] [address] [phone] Referral ID Status Reason Start Date Expiration Date Visits Requ ested Visits Authorized [id number] Closed 03/15/2019 03/14/2020 35 35 Encounter Details Date Type Department Care Team Description 03/26/2019 Hospital Encounter Department of Radiation Bud Aguirre I., [place]cology [place] [address] [facility] 18[address] [place] [phone] Social History Tobacco Use Types Packs/Day Years [...] do you attend mandaeism or Never 2018 orthodox services? Do you belong to any clubs or No 02/21/2019 organizations such as mandaeism groups, unions, fraPaybook or athletic groups, or school groups? How [...] Radiology Mark Eastman M.D., M.S. [address] [place] [address] 04/26/2022 Office Visit Otorhinolaryngology Roxanne Lanza, LINEN KEEPER, C.N.P. [address] [place] [address] 04/28/2022 Appointment Radiation Oncology Ursula Aguirre M.D. [address] [place] [address] documented as of this encounter Visit Diagnoses Not on filedocumented in this encounter
--- OUTSIDE RECORDS SUMMARY | 2022-04-07 09:44 | XMS_ITS | Encounter Summary ---
:1955 Author Organization [facility] Address [address] [place] [address] Care Team Providers Name Role Phone Unavailable Primary Care Provider Unavailable Reason for Referral Radiation Therapy (Routine) - Canceled Specialty Diagnoses / Procedures Referred By Contact Refer red To Contact Diagnoses Malignant Neoplasm Of Supraglottic (HCC) Ursula Aguirre M.D. [facility] Procedures Management Visit [address] [place] [address] [phone] Referral ID Status Reason Start Date Expiration Date Visits V isits Requested Authorized [id number] Canceled 03/15/2019 03/14/2020 1 1 Reason for Visit Radiation Therapy (Routine) - Canceled Specialty Diagnoses / Procedures Referred By Contact Refer red To Contact Diagnoses Malignant Neoplasm Of Supraglottic (HCC) Ursula Aguirre M.D. [facility] Procedures Management Visit [address] [place] [address] [phone] Referral ID Status Reason Start Date Expiration Date Visits V isits Requested Authorized [id number] Canceled 03/15/2019 03/14/2020 1 1 Encounter Details Date Type Department Care Team Description 03/28/2019 Hospital Encounter Department of Peter Schultz Neoplasm Of Radiation Oncology Jose Serna M.D. Supraglottic (HCC) in [place], [address] [place], [place] 1821 [facility] [address] [place], [place] [phone] (Work) [phone] Social History Tobacco Use Types Packs/Day Years [...] do you attend buddhist or Never 2018 hinduism services? Do you [...] Supraglottic (HCC) SUPERVISED BY: Jose Schultz M.D. (4-1944) HISTORY OF PRESENT ILLNESS Obdulia Narayan is [...] by: Jose Schultz M.D. 03/28/2019 5:27 PM [facility] [address] [place] [address] documented in this encounter Plan of Treatment Upcoming Encounters Date Type Specialty Care Team Description 04/22/2022 Clinical Admitting/Central Communication Scheduling 04/26/2022 Appointment Radiology Mark Eastman M.D., M.S. [address] [place] [phone] 04/26/2022 Office Visit Otorhinolaryngology Rxoanne Lanza, SMOOTH PLATER, C.N.P. [address] [place] [address] [phone] 04/28/2022 Appointment Radiation Oncology Ursula Aguirre M.D. [address] [place] [phone] Scheduled Orders Name Type Priority Associated Diagnoses Order S chedule Management Visit Radiation Oncology Routine Malignant Neoplasm Of Once for 1 Supraglottic (HCC) Occurrenc es starting 03/28/2019 unti l 03/28/2019 documented as of this encounter Visit Diagnoses Diagnosis Malignant Neoplasm Of Supraglottic (HCC) documented in this encounter
--- OUTSIDE RECORDS SUMMARY | 2022-04-07 09:44 | XMS_ITS | Encounter Summary ---
:1955 Author Organization [facility] Address [address] [place] [address] Care Team Providers Name Role Phone Unavailable [...] you attend roman catholic or Never 2018 buddhist services? Do you [...] Radiology Mark Eastman M.D., M.S. [address] [place] [phone] 04/26/2022 Office Visit Otorhinolaryngology Roxanne Lanza, COSMETIC CONSULTANT, C.N.P. [address] [place] [phone] 04/28/2022 Appointment Radiation Oncology Ursula Aguirre M.D. [address] [place] [phone] documented as of this encounter Procedures Procedure [...]
--- OUTSIDE RECORDS SUMMARY | 2022-04-07 09:44 | XMS_ITS | Encounter Summary ---
:1955 Author Organization [facility] Address [address] [place] [address] Care Team Providers Name Role Phone Unavailable Primary Care Provider Unavailable Reason for Visit Outpatient (Routine) - Closed Specialty Diagnoses / Procedures Referred By Contact Refer red To Contact Otorhinolaryngology Frank Arrieta M.D . [facility] 200 [place] [address] Referral ID Status Reason Start Date Expiration Date Visits Requ ested Visits Authorized [id number] Closed 02/22/2019 02/22/2020 1 1 Encounter Details Date Type Department Care Team Description 03/13/2019 Office Visit Department of Kasperbauer, Malignant Neop lasm Otorhinolaryngology in Hung Serna M.D. Of [place], [place] ([facility]) (Primary Dx) [address] [place] [phone] Social History Tobacco Use Types Packs/Day [...] do you attend yazidi or Never 2018 hoahaoism services? Do you [...] her final decision. CT CT Job ID: [id number] Frank Arrieta M.D. - 03/13/2019 2:45 PM [...] moist, no masses, lesions or mucopurulence noted. CRIMPER OPERATOR: No masses. Torus tubaris normal. Symmetric [...] Radiology Mark Eastman M.D., M.S. [address] [place] [phone] 04/26/2022 Office Visit Otorhinolaryngology Roxanne Lanza APRN, C.N.P. [address] [place] [phone] 04/28/2022 Appointment Radiation Oncology Ursula Aguirre M.D. [address] [place] [address] [phone] documented as of this encounter Visit Diagnoses Diagnosis Malignant Neoplasm Of Supraglottic (HCC) - Primary documented in this encounter
--- OUTSIDE RECORDS SUMMARY | 2022-04-07 09:44 | XMS_ITS | Encounter Summary ---
:1955 Author Organization [facility] Address [address] [place] [address] Care Team Providers Name Role Phone Unavailable Primary Care Provider Unavailable Encounter Details Date Type Department Care Team Description 03/15/2019 Clinical Communication Department of Radiation Francisca Tapia, Oncology in [place], [place], Ph. D. [place] [address], [address] [facility] [address] [place], [place] [address] [phone] Social History Tobacco Use Types Packs/Day Years [...] PM CDT I called patient and her [id number] Darlin answered the phone, she is authorized to discuss patient's care. I explained that I am calling to check on patient's decision about treatment. She said she had called our clinic yesterday afternoon to let us know patient has decided to undergo radiation treatment [facility]. I apologized to her that I hadn't been noticed about her phone call. I discussed with her that I will place the referral for patient to be seen in our [place] clinic. I also discussed with her about [...] for them to obtain patient's records from [place] to follow up on these. I told her that our [place] clinic will contact them with appointment schedules. She has no otherquestions. Addendum: Dr. Aguirre will see patient in [place], and recommended MRI and mammography be done in [place] with potential faster turn around of result. I talked with Darlin, she said patient's breastbiopsy was done earlier this year, [facility] biopsy [facility] report from September of 2018. We will obtain patient's prior mammography for review. We will order the MRI to evaluate the adrenal masses to be done in [place]. Darlin agrees with the plan and expressed appreciation of the coordination of care. documented in this encounter Plan of Treatment Upcoming Encounters Date Type Specialty Care Team Description 04/22/2022 Clinical Admitting/Central Communication Scheduling 04/26/2022 Appointment Radiology Mark Eastman M.D., M.S. [address] [place] [phone] 04/26/2022 Office Visit Otorhinolaryngology Roxanne Lanza APRN, C.N.P. [address] [place] [phone] 04/28/2022 Appointment Radiation Oncology Ursula Aguirre M.D. [address] [place] [phone] documented as of this encounter Visit Diagnoses Not on filedocumented in this encounter
--- OUTSIDE RECORDS SUMMARY | 2022-04-07 09:44 | XMS_ITS | Encounter Summary ---
:1955 Author Organization [facility] Address [address] [place] [address] Care Team Providers Name Role Phone Unavailable [...] do you attend yarsani or Never 2018 taoist services? Do you [...] Radiology Mark Eastman M.D., M.S. [address] [place] [phone] 04/26/2022 Office Visit Otorhinolaryngology Roxanne Lanza, GRIPS, C.N.P. [address] [place] [phone] 04/28/2022 Appointment Radiation Oncology Ursula Aguirre M.D. [address] [place] [address] [phone] documented as of this encounter Procedures Procedure [...]
--- OUTSIDE RECORDS SUMMARY | 2022-04-07 09:44 | XMS_ITS | Encounter Summary ---
:1955 Author Organization [facility] Address [address] [place] [address] Care Team Providers Name Role Phone Unavailable Primary Care Provider Unavailable Reason for Referral Outpatient (Routine) - Closed Specialty Diagnoses / Procedures Referred By Contact Refer red To Contact Diagnoses Malignant Neoplasm Of Supraglottic (HCC) Ursula Aguirre M.D. [facility] Procedures FL Swallow Function with Video and Speech or OT WA SWALLOWING STUDY W VIDEO HC SWALLOWING STUDY W VIDEO WA SWALLOWING STUDY W VIDEO [address] [place] [phone] Referral ID Status Reason Start Date Expiration Date Visits Requ ested Visits Authorized [id number] Closed 03/16/2019 03/15/2020 1 1 Reason for Visit Outpatient (Routine) - Closed Specialty Diagnoses / Procedures Referred By Contact Refer red To Contact Diagnoses Malignant Neoplasm Of Supraglottic (HCC) Ursula Aguirre M.D. [facility] Procedures FL Swallow Function with Video and Speech or OT WA SWALLOWING STUDY W VIDEO HC SWALLOWING STUDY W VIDEO [place] SWALLOWING STUDY W VIDEO [address] [place] [address] [phone] Referral ID Status Reason Start Date Expiration Date Visits Requ ested Visits Authorized [id number] Closed 03/16/2019 03/15/2020 1 1 Encounter Details Date Type Department Care Team Description 03/28/2019 Hospital Encounter Department of Mary Aguirre M.D. [address] [place] [phone] Malignant Neoplasm Of Radiology, [place] Fani Montalvo M.S., [facility]ER[facility] TECHNICIAN 200 [place] [address] Supraglottic (HCC) Building, in [place], [place] [address] [place] [phone] Social History Tobacco Use Types Packs/Day Years [...] Radiology Mark Eastman M.D., M.S. [address] [place] [phone] 04/26/2022 Office Visit Otorhinolaryngology Roxanne Lanza, CONFECTIONERY DROPS MACHINE OPERATOR, C.N.P. [address] [place] [phone] 04/28/2022 Appointment Radiation Oncology Ursula Aguirre M.D. [address] [place] [phone] documented as of this encounter Procedures Procedure [...]
--- OUTSIDE RECORDS SUMMARY | 2022-04-07 09:44 | XMS_ITS | Encounter Summary ---
:1955 Author Organization [facility] Address [address] [place] [address] Care Team Providers Name Role Phone Unavailable Primary Care Provider Unavailable Reason for Visit MRI/CAT/PET Scan (Routine) - Closed Specialty Diagnoses / Procedures Referred By Contact Refer red To Contact Radiology Diagnoses Aneurysm Abdominal Aortic Without Rupture (HCC) Francisca Tapia M.D., Ph.D. [facility] Procedures CT Abdomen Pelvis Angiogram with IV Contrast CT Abdomen Angiogram with IV Contrast WI CTA ABDOMEN WO/W CNTRST HC CTA ABDOMEN WO/W CNTRST WI CTA ABDOMEN WO/W CNTRST [address], [place] [address] 4 Referral ID Status Reason Start Date Expiration Date Visits Requ ested Visits Authorized [id number] Closed 03/19/2019 03/18/2020 1 1 Encounter Details Date Type Department Care Team Description 03/20/2019 Hospital Encounter Department of Francisca Tapia, Aneurysm Abdominal Radiology, Brenda Chu, Ph.D. Aortic Without Building, in [address] Rupture (HCC) [facility] [address] [place] [phone] Social History Tobacco Use Types Packs/Day Years [...] do you attend congregation or Never 2018 rastafarian services? Do you belong to any clubs or No 02/21/2019 organizations such as congregation groups, unions, fraAstro Ape or athletic groups, or school groups? How [...] Radiology Mark Eastman M.D., M.S. [address] [place] [phone] 04/26/2022 Office Visit Otorhinolaryngology Roxanne Lanza APRN, C.N.P. [address] [place] [phone] 04/28/2022 Appointment Radiation Oncology Ursula Aguirre M.D. [address] [place] [phone] documented as of this encounter Procedures Procedure [...]
--- OUTSIDE RECORDS SUMMARY | 2022-04-07 09:44 | XMS_ITS | Encounter Summary ---
:1955 Author Organization [facility] Address [address] [place] [address] Care Team Providers Name Role Phone Unavailable Primary Care Provider Unavailable Reason for Referral Outpatient (Routine) - Closed Specialty Diagnoses / Procedures Referred By Contact Refer red To Contact Radiation Oncology Diagnoses Malignant Neoplasm Of Supraglottic (HCC) Francisca Tapia M.D., INDRA mas Ph.D. [address] [place] [address], [address], [place] [address] Referral ID Status Reason Start Date Expiration Date Visits Requ ested Visits Authorized [id number] Closed 03/15/2019 03/14/2020 1 1 Scheduling Instructions Please schedule with Dr. Aguirre. Reason for Visit Outpatient (Routine) - Closed Specialty Diagnoses / Procedures Referred By Contact Refer red To Contact Radiation Oncology Diagnoses Malignant Neoplasm Of Supraglottic (HCC) Francisca Tapia M.D., INDRA mas Ph.D. [address] , [place] [address] [place], [place] [address] Referral ID Status Reason Start Date Expiration Date Visits Requ ested Visits Authorized [id number] Closed 03/15/2019 03/14/2020 1 1 Encounter Details Date Type Department Care Team Description 03/16/2019 Hospital Encounter Department of Ursula Aguirre Neoplasm Of Radiation Oncology Kimberley Bacon Supraglottic (HCC) in [place] [address] [address] [place], [place] 1821 [facility] [address] [place], [place] [phone] (Work) [phone] Social History Tobacco Use Types Packs/Day Years [...] do you attend rastafarian or Never 2018 mormon services? Do you [...] Ph.D. and Dr. Cecilio Love, Radiation Oncology, [place], [place] PRIMARY PROVIDER Dr. Swapna De La Fuente REASON FOR CONSULT 1. Malignant Neoplasm Of Supraglottic HISTORY OF PRESENT ILLNESS #1 Malignant Neoplasm Of Supraglottic Mrs. 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 Her oncologic history was [...] 2019: Appointment with Dr. Darryl Grayson???Rasta at [facility]. Physical examination with flexible laryngoscopy revealed a large fungating mass overlying the posterior left arytenoidthat appeared fairly extensive, extending over to the right arytenoid into the piriform sinus. Vocal cords move normally. Patient did have some shotty adenopathy on the left side. Ordered CT scan and then arrange referral to [facility]. 4. February 12, 2019: CT scan of [...] Hung Mabry and Dr. Frank Arrieta at [facility]. Physical examination revealed an exophytic mass of [...] will be referred to Radiation Oncology in [place]. 8. March 13, 2019: Follow-up appointment with Dr. Arrieta and Dr. Mabry who discussed treatment options including total laryngectomy versus radiation therapy. They were not able to offer partial laryngectomy given her lung disease and possible aspiration. 9. March 15, 2019: Phone call with Dr. Tapia with the patient's pfbjoeym-zq-wsc reported that the patient had decided to undergo radiation treatment in [place]. She will have a follow-up abdominal MRI at [place]. The patient will follow-up with her primary [...] ligation, 1984 SOCIAL HISTORY She lives in [place], [place] with one of her sons and ezzywtot-ib-ebt. She will live in [place] with a different son during the week (Tuesday thru Tuesday). She is . She has 4 sons, 10 grand children and 2 great grandchildren. 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 She is a current every [...] patient and her family (3 sons, 1 kwiwlggp-ll-wnh and one grand daughter). 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 We discussed obtaining a swallowing study in [place]. We will have her see our health care facilities inspector and social media marketing manager here in [place]. She is edentulous, so I will not [...] Aguirre M.D. 03/16/2019 11:50 AM Radiation Oncology [facility] [address] [place], [place] [phone] documented in this encounter Plan of Treatment Upcoming Encounters Date Type Specialty Care Team Description 04/22/2022 Clinical Admitting/Central Communication Scheduling 04/26/2022 Appointment Radiology Mark Eastman M.D., M.S. [address] [place] [phone] 04/26/2022 Office Visit Otorhinolaryngology Roxanne Lanza, RAILROAD FIRER/FIREMAN, C.N.P. [address] [place] [phone] 04/28/2022 Appointment Radiation Oncology Ursula Aguirre M.D. [address] [place] [phone] Scheduled Referrals Name Type Priority Associated Diagnoses Order S chedule Radiation Oncology Outpatient Referral Routine Malignant Neopl asm Once for 1 - Head / neck Of Supraglottic Occurrences consult (clinic) (HCC) starting until 9 documented as of this encounter Visit Diagnoses Diagnosis Malignant Neoplasm Of Supraglottic (HCC) documented in this encounter
--- OUTSIDE RECORDS SUMMARY | 2022-04-07 09:44 | XMS_ITS | Encounter Summary ---
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 Do you [...] Mabry and Dr. Arrieta of ENT and [facility], exam reported an exophytic supraglottic lesion involving [...] Ms. Narayan presented with her son and dttgcwrt-mr-ojq to discuss radiotherapy options for the newlydiagnosed [...] Narayan presented with her son and the cqvoftoz-ck-jth for radiotherapy consultation for the newly diagnosed [...] also discussed the option of treatment in [place] closer to home and one of her son lives. She is scheduled to see Dr. Mabry of ENT surgical option. Patient was given Dr. Love's card and was encouraged to to let us know her decision about treatment modality. If she decides to have definitive radiation treatment, we will refer her to our colleagues in [facility]. Associated attestation - Domingo Love M.D. - [...] offered her the possibility of treatment in [place] if she wishes definitve care and I [...] Radiology Mark Eastman M.D., M.S. [address] [place] [phone] 04/26/2022 Office Visit Otorhinolaryngology Roxanne Lanza, REAL ESTATE UNDERWRITER, C.N.P. [address] [place] [phone] 04/28/2022 Appointment Radiation Oncology Ursula Aguirre M.D. [address] [place] [address] Scheduled Referrals Name Type Priority Associated Order [...]
--- OUTSIDE RECORDS SUMMARY | 2022-04-07 09:44 | XMS_ITS | Encounter Summary ---
:1955 Author Organization [facility] Address [address] [place] [address] Care Team Providers Name Role Phone Unavailable Primary Care Provider Unavailable Reason for Referral Outpatient (Routine) - Closed Specialty Diagnoses / Procedures Referred By Contact Refer red To Contact Radiation Oncology Diagnoses Malignant Neoplasm Of Supraglottic (HCC) Francisca Tapia M.D., [facility] TASHA mas Ph.D. [address] , [facility] 101 [place], [place] [address] Referral ID Status Reason Start Date Expiration Date Visits Requ ested Visits Authorized [id number] Closed 03/15/2019 03/14/2020 1 1 Scheduling Instructions Please schedule with Dr. Aguirre. Encounter Details Date Type Department Care Team Description 03/15/2019 Orders Only Department of Francisca Tapia, Malignant Neop las Of Radiation Oncology in [place], Ph.D . Supraglottic (HCC) [place], [place] [address], (Primary Dx) [address] [facility] 101 [place], [place] [address] [phone] Social History Tobacco Use Types Packs/Day Years [...] do you attend yazidism or Never 2018 protestant services? Do you belong to any clubs or No 02/21/2019 organizations such as yazidism groups, unions, [employer] or athletic groups, or school groups? How [...] Radiology Mark Eastman M.D., M.S. [address] [place] [phone] 04/26/2022 Office Visit Otorhinolaryngology Roxanne Lanza APRN, C.N.P. [address] [place] [phone] 04/28/2022 Appointment Radiation Oncology Ursula Aguirre M.D. [address] [place] [phone] Scheduled Referrals Name Type Priority Associated Diagnoses Order S chedule Radiation Oncology Outpatient Referral Routine Malignant Neopl asm Of Expected: - Head / neck Supraglottic (HCC) 03/15/20 19 consult (clinic) (Approximat e), Expires: 03/15/2022 documented as of this encounter Visit Diagnoses Diagnosis Malignant Neoplasm Of Supraglottic (HCC) - Primary documented in this encounter
--- OUTSIDE RECORDS SUMMARY | 2022-04-07 09:44 | XMS_ITS | Encounter Summary ---
:1955 Author Organization [facility] Address [address] [place] [address] Care Team Providers Name Role Phone Unavailable Primary Care Provider Unavailable Reason for Visit Radiation Therapy (Routine) - Closed Specialty Diagnoses / Procedures Referred By Contact Refer red To Contact Diagnoses Malignant Neoplasm Of Supraglottic (HCC) Ursula Aguirre M.D. [facility] Procedures Prior Auth Rad Tx [place] IMRT COMPLEX [address] [place] [phone] Referral ID Status Reason Start Date Expiration Date Visits Requ ested Visits Authorized [id number] Closed 03/15/2019 03/14/2020 35 35 Encounter Details Date Type Department Care Team Description 03/29/2019 Hospital Encounter Department of Radiation Bud Aguirre I., Oncology in [place] [address] [facility] [address] [place] [phone] Social History Tobacco Use Types Packs/Day Years [...] 02/21/2019 organizations such as mosque groups, unions, fraTamoco or athletic groups, or school groups? How [...] Radiology Mark Eastman M.D., M.S. [address] [place] [phone] 04/26/2022 Office Visit Otorhinolaryngology Roxanne Lanza APRN, C.N.P. [address] [place] [phone] 04/28/2022 Appointment Radiation Oncology Ursula Aguirre M.D. [address] [place] [phone] documented as of this encounter Visit Diagnoses Not on filedocumented in this encounter
--- OUTSIDE RECORDS SUMMARY | 2022-04-07 09:44 | XMS_ITS | Encounter Summary ---
:1955 Author Organization [facility] Address [address] [place] [address] Care Team Providers Name Role Phone Unavailable Primary Care Provider Unavailable Reason for Visit Speech Pathology (Routine) - Closed Specialty Diagnoses / Procedures Referred By Contact Refer red To Contact Diagnoses Malignant Neoplasm Of Supraglottic (HCC) Ursula Aguirre M.D. [facility] Procedures GRAVITY FLOW IRRIGATOR Dysphagia evaluate and treat [address] [place] [phone] Referral ID Status Reason Start Date Expiration Date Visits Requ ested Visits Authorized [id number] Closed 03/16/2019 03/15/2020 1 1 Encounter Details Date Type Department Care Team Description 03/28/2019 Comprehensive Visit Department of Ayesha Aguirre M.D. [address] [place] [phone] Dysphagia Oropharyngeal Phase (Primary D x); [facility] CCC-GRAVITY FLOW IRRIGATOR [address] [place] [phone] Malignant Neoplasm Of Supraglottic (HCC) [place], [place] [address] [place] [phone] Social History Tobacco Use Types Packs/Day Years [...] do you attend hoahaoism or Never 2018 jehovah's witness services? Do [...] this encounter Consult Notes Fani Montalvo M.S., [facility]-GRAVITY FLOW IRRIGATOR - 03/28/2019 7:45 AM CDT Speech Pathology [...] Radiology Mark Eastman M.D., M.S. [address] [place] [phone] 04/26/2022 Office Visit Otorhinolaryngology Roxanne Lanza APRN, C.N.P. [address] [place] [phone] 04/28/2022 Appointment Radiation Oncology Ursula Aguirre M.D. [address] [place] [phone] documented as of this encounter Visit Diagnoses Diagnosis Dysphagia Oropharyngeal Phase - Primary Malignant Neoplasm Of Supraglottic (HCC) documented in this encounter
--- OUTSIDE RECORDS SUMMARY | 2022-04-07 09:44 | XMS_ITS | Encounter Summary ---
:1955 Author Organization [facility] Address [address] [place] [address] Care Team Providers Name Role Phone Unavailable Primary Care Provider Unavailable Reason for Visit Radiation Therapy (Routine) - Closed Specialty Diagnoses / Procedures Referred By Contact Refer red To Contact Diagnoses Malignant Neoplasm Of Supraglottic (HCC) Ursula Aguirre M.D. [facility] Procedures Prior Auth Rad Tx [place] IMRT COMPLEX [address] [place] [address] [phone] Referral ID Status Reason Start Date Expiration Date Visits Requ ested Visits Authorized [id number] Closed 03/15/2019 03/14/2020 35 35 Encounter Details Date Type Department Care Team Description 03/29/2019 Hospital Encounter Department of Radiation Bud Aguirre I., [place]cology [place] [address] [facility] [address] [place] [phone] Social History Tobacco Use Types Packs/Day Years [...] do you attend faith or Never 2018 oriental orthodox services? Do you belong to any clubs or No 02/21/2019 organizations such as faith groups, unions, fraMetroview Capital or athletic groups, or school groups? How [...] Radiology Mark Eastman M.D., M.S. [address] [place] [phone] 04/26/2022 Office Visit Otorhinolaryngology Roxanne Lanza APRN, C.N.P. [address] [place] [phone] 04/28/2022 Appointment Radiation Oncology Ursula Aguirre M.D. [address] [place] [phone] documented as of this encounter Visit Diagnoses Not on filedocumented in this encounter
--- OUTSIDE RECORDS SUMMARY | 2022-04-07 09:44 | XMS_ITS | Encounter Summary ---
:1955 Author Organization [facility] Address [address] [place] [address] Care Team Providers Name Role Phone Unavailable Primary Care Provider Unavailable Reason for Visit MRI/CAT/PET Scan (Routine) - Closed Specialty Diagnoses / Procedures Referred By Contact Refer red To Contact Radiology Diagnoses Mass Adrenal (HCC) Francisca Tapia M.D., Ph.D. [facility] Procedures MR Abdomen without IV Contrast MR Abdomen without and with IV Contrast DE MRI ABDOMEN WO/W CNTRST HC MRI ABDOMEN WO/W CNTRST DE MRI ABDOMEN WO CNTRST HC MRI ABDOMEN WO CNTRST [address] [place] [address] 4 Referral ID Status Reason Start Date Expiration Date Visits Requ ested Visits Authorized [id number] Closed 03/15/2019 03/14/2020 1 1 Encounter Details Date Type Department Care Team Description 03/16/2019 Hospital Encounter Department of Francisca Tapia, Mass Adr enal (HCC) Radiology, Brenda Chu, Ph.D. [facility], in [address] [place] [address] [place] [phone] Social History Tobacco Use Types Packs/Day Years [...] do you attend muslim or Never 2018 moravian services? Do you [...] Radiology Mark Eastman M.D., M.S. [address] [place] [phone] 04/26/2022 Office Visit Otorhinolaryngology Roxanne Lanza APRN, C.N.P. [address] [place] [phone] 04/28/2022 Appointment Radiation Oncology Ursula Aguirre M.D. [address] [place] [phone] documented as of this encounter Procedures Procedure [...] IV co ntrast from 02/21/2019. Procedure Note eHrminio Lyon M.D. - 03/19/2019 EXAM: MR ABDOMEN [...] Address City/State/ZIP Code Phon e Number POC [facility] [address] [place] [address] Creatinine, POCT (03/16/2019 2:47 PM CDT) athologist Signature eGFR-Black/Afri >90 >=60 03/16/2019 can [place], mL/min/BSA 2:53 PM CDT POCT Comment: ----ADDITIONAL [...] City/State/ZIP Code Phon e Number POC [facility] 200 [place], [place] [address] LABS documented in this encounter Visit Diagnoses Diagnosis Mass Adrenal (HCC) documented in this encounter
--- OUTSIDE RECORDS SUMMARY | 2022-04-07 09:44 | XMS_ITS | Encounter Summary ---
:1955 Author Organization [facility] Address [address] [place] [address] Care Team Providers Name Role Phone Unavailable Primary Care Provider Unavailable Reason for Visit Outpatient (Routine) - Closed Specialty Diagnoses / Procedures Referred By Contact Refer red To Contact Vascular Surgery Diagnoses Aneurysm Abdominal Aortic Without Rupture (HCC) Francisca Tapia M.D., [facility] Ph.D. [address] [place] [address] 101 [place], [place] [address] Referral ID Status Reason Start Date Expiration Date Visits Requ ested Visits Authorized [id number] Closed 03/19/2019 03/18/2020 1 1 Encounter Details Date Type Department Care Team Description 03/27/2019 Comprehensive Visit Division of Vascular [place], Aneurysm Abdominal and Endovascular Gael Cisneros M.D. Aortic Without Surgery in [address] [facility], Rupture (HCC ) [place], [place] [address] [facility] [place] [phone] Social History Tobacco Use Types Packs/Day Years [...] do you attend synagogue or Never 2018 anabaptist services? Do you [...] REFERRING PHYSICIAN: Francisca Tapia M.D., Ph.D. [address] [place] [phone] REASON FOR CONSULT: 5 cm infrarenal abdominal [...] Radiology Mark Eastman M.D., M.S. [address] [place] [phone] 04/26/2022 Office Visit Otorhinolaryngology Roxanne Lanza APRN, C.N.P. [address] [place] [phone] 04/28/2022 Appointment Radiation Oncology Ursula Aguirre M.D. [address] [place] [phone] documented as of this encounter Visit Diagnoses Diagnosis Aneurysm Abdominal Aortic Without Ruptur e (HCC) documented in this encounter
--- OUTSIDE RECORDS SUMMARY | 2022-04-07 09:44 | XMS_ITS | Encounter Summary ---
:1955 Author Organization [facility] Address [address] [place] [address] Care Team Providers Name Role Phone Unavailable Primary Care Provider Unavailable Reason for Referral Speech Pathology (Routine) - Closed Specialty Diagnoses / Procedures Referred By Contact Refer red To Contact Diagnoses Malignant Neoplasm Of Supraglottic (HCC) Ursula Aguirre M.D. [facility] Procedures SOLID WASTE COLLECTOR - Ongoing treatment [address] [place] [phone] Referral ID Status Reason Start Date Expiration Date Visits Requ ested Visits Authorized [id number] Closed 03/16/2019 03/15/2020 1 1 Outpatient (Routine) - Closed Specialty Diagnoses / Procedures Referred By Contact Refer red To Contact Diagnoses Malignant Neoplasm Of Supraglottic (HCC) Ursula Aguirre M.D. [facility] Procedures FL Swallow Function with Video and Speech or OT MS SWALLOWING STUDY W VIDEO HC SWALLOWING STUDY W VIDEO MS SWALLOWING STUDY W VIDEO [address] [place] [phone] Referral ID Status Reason Start Date Expiration Date Visits Requ ested Visits Authorized [id number] Closed 03/16/2019 03/15/2020 1 1 peech Pathology (Routine) - Closed Specialty Diagnoses / Procedures Referred By Contact Refer red To Contact Diagnoses Malignant Neoplasm Of Supraglottic (HCC) Ursula Aguirre M.D. [facility] Procedures SOLID WASTE COLLECTOR Dysphagia evaluate and treat [address] [place] [address] Referral ID Status Reason Start Date Expiration Date Visits Requ ested Visits Authorized [id number] Closed 03/16/2019 03/15/2020 1 1 Encounter Details Date Type Department Care Team Description 03/16/2019 Orders Only Department of Ursula Aguirre Malignant N eoplasm Of Radiation Oncology in [place] Bacon Supraglottic (HCC) [facility] [address] [facility] (Primary Dx) [address] [place] [phone] Social History Tobacco Use Types Packs/Day Years [...] Radiology Mark Eastman M.D., M.S. [address] [place] [phone] 04/26/2022 Office Visit Otorhinolaryngology Roxanne Lanza, ATOMIC SPECTROSCOPIST, C.N.P. [address] [place] [phone] 04/28/2022 Appointment Radiation Oncology Ursula Aguirre M.D. [address] [place] [address] [phone] documented as of this encounter Results FL [...]
--- OUTSIDE RECORDS SUMMARY | 2022-04-07 09:44 | XMS_ITS | Encounter Summary ---
:1955 Author Organization [facility] Address [address] [place] [address] Care Team Providers Name Role Phone Unavailable Primary Care Provider Unavailable Reason for Visit Radiation Therapy (Routine) - Closed Specialty Diagnoses / Procedures Referred By Contact Refer red To Contact Diagnoses Malignant Neoplasm Of Supraglottic (HCC) Ursula Aguirre M.D. [facility] Procedures Prior Auth Rad Tx MA IMRT COMPLEX [address] [place] [address] [phone] Referral ID Status Reason Start Date Expiration Date Visits Requ ested Visits Authorized [id number] Closed 03/15/2019 03/14/2020 35 35 Encounter Details Date Type Department Care Team Description 03/28/2019 Hospital Encounter Department of Radiation Bud Aguirre I., [place]cology [place] [address] [facility] [address] [place] [phone] Social History Tobacco Use Types Packs/Day Years [...] do you attend evangelical or Never 2018 yazidism services? Do you belong to any clubs or No 02/21/2019 organizations such as evangelical groups, unions, [employer] or athletic groups, or school groups? How [...] Radiology Mark Eastman M.D., M.S. [address] [place] [phone] 04/26/2022 Office Visit Otorhinolaryngology Roxanne Lanza APRN, C.N.P. [address] [place] [phone] 04/28/2022 Appointment Radiation Oncology Ursula Aguirre M.D. [address] [place] [phone] documented as of this encounter Visit Diagnoses Not on filedocumented in this encounter
--- OUTSIDE RECORDS SUMMARY | 2022-04-07 09:44 | XMS_ITS | Encounter Summary ---
:1955 Author Organization [facility] Address [address] [place] [address] Care Team Providers Name Role Phone Unavailable Primary Care Provider Unavailable Encounter Details Date Type Department Care Team Description 03/16/2019 Clinical Communication Department of Arlette, Radiation Oncology in [facility] [address] [place] [phone] Social History Tobacco Use Types Packs/Day Years [...] do you attend pentecostal or Never 2018 synagogue services? Do you [...] a CT of the abdomen performed in [place] this morning and asked if she would [...] need to reschedule the MRI? Phone number: [phone] Is it okay to leave a voicemail on answering machine with test results? Yes Pharmacy (if medication related): [facility] [address] [place] [address] 150 [facility] [address] Taylor Chong documented in this encounter Plan of Treatment Upcoming Encounters Date Type Specialty Care Team Description 04/22/2022 Clinical Admitting/Central Communication Scheduling 04/26/2022 Appointment Radiology Mark Eastman M.D., M.S. [address] [place] [phone] 04/26/2022 Office Visit Otorhinolaryngology Roxanne Lanza APRN, C.N.P. [address] [place] [address] [phone] 04/28/2022 Appointment Radiation Oncology Ursula Aguirre M.D. [address] [place] [address] [phone] documented as of this encounter Visit Diagnoses Not on filedocumented in this encounter
--- OUTSIDE RECORDS SUMMARY | 2022-04-07 09:44 | XMS_ITS | Encounter Summary ---
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 [address] [place] [address], [place] [address] Referral ID Status Reason Start Date Expiration Date Visits Requ ested Visits Authorized [id number] Closed 03/19/2019 03/18/2020 1 1 Encounter Details Date Type Department Care Team Description 03/19/2019 Orders Only Department of Radiation Francisca Tapia, [facility] Abdominal Oncology in [place], Ph. D. Aortic Without Rupture [place] [address] [place] [address], (HCC) (Primary Dx) [address] [place] [address] Social History Tobacco Use Types Packs/Day Years [...] do you attend pentecostalism or Never 2018 jehovah's witness services? Do [...] Radiology Mark Eastman M.D., M.S. [address] [place] [phone] 04/26/2022 Office Visit Otorhinolaryngology Roxanne Lanza APRN, C.N.P. [address] [place] [address] [phone] 04/28/2022 Appointment Radiation Oncology Ursula Aguirre M.D. [address] [place] [address] [phone] Scheduled Referrals Name Type Priority Associated Diagnoses Order S chedule Vascular Surgery - Outpatient Referral Routine Aneurysm Abdomi nal Expected: Aneurysm consult Aortic Without 9 (clinic) Rupture (HCC) (Approximate), Expires: 03/19/2022 documented as of this encounter Visit Diagnoses Diagnosis Aneurysm Abdominal Aortic Without Ruptur e (HCC) - Primary documented in this encounter
--- OUTSIDE RECORDS SUMMARY | 2022-04-07 09:44 | XMS_ITS | Encounter Summary ---
:1955 Author Organization [facility] [place] [facility] Address [address] [place] [address] Care Team Providers Name Role Phone Unavailable Primary Care Provider Unavailable Reason for Referral Radiation Therapy (Routine) - Closed Specialty Diagnoses / Procedures Referred By Contact Refer red To Contact Diagnoses Malignant Neoplasm Of Supraglottic (HCC) Ursula Aguirre M.D. [facility] Procedures Initial Rad Onc Treatment Planning CT Simulation [address] [place] [phone] Referral ID Status Reason Start Date Expiration Date Visits Requ ested Visits Authorized [id number] Closed 03/15/2019 03/14/2020 1 1 Reason for Visit Radiation Therapy (Routine) - Closed Specialty Diagnoses / Procedures Referred By Contact Refer red To Contact Diagnoses Malignant Neoplasm Of Supraglottic (HCC) Ursula [facility]irre M.D. [facility] Region Procedures Initial Rad Onc Treatment Planning CT Simulation [address] [place] [address] [phone] Referral ID Status Reason Start Date Expiration Date Visits Requ ested Visits Authorized [id number] Closed 03/15/2019 03/14/2020 1 1 Encounter Details Date Type Department Care Team Description 03/16/2019 Hospital Encounter Department of Ursula Aguirre Neoplasm Of Radiation Oncology [place] Bacon Supraglottic (HCC) in [place], [address] [place], [place] [address] [facility] [address] [place], [place] [phone] (Work) [phone] Social History Tobacco Use Types Packs/Day Years [...] do you attend taoist or Never 2018 islam services? Do you [...] DETAILS Patient position: supine Arm/Hand position: holding Ammonia Operator Ring Custom immobilization device: 5 point thermoplastic [...] Radiology Mark Eastman M.D., M.S. [address] [place] [phone] 04/26/2022 Office Visit Otorhinolaryngology Roxanne Lanza APRN, C.N.P. [address] [place] [address] [phone] 04/28/2022 Appointment Radiation Oncology Ursula Aguirre M.D. [address] [place] [phone] documented as of this encounter Procedures Procedure [...] ?? Patient position: supine Arm/Hand position: holding Ammonia Operator Ring ?? Custom immobilization device: 5 point [...]
--- OUTSIDE RECORDS SUMMARY | 2022-04-07 09:44 | XMS_ITS | Encounter Summary ---
:1955 Author Organization [facility] Address [address] [place] [address] Care Team Providers Name Role Phone Unavailable Primary Care Provider Unavailable Encounter Details Date Type Department Care Team Description 03/15/2019 Orders Only Department of Radiation Francisca Tapia, Mass Adrenal (HCC) Oncology in [place], [place], Ph. D. (Primary Dx) [place] [address], [address] [facility] [address] [place] [address] [phone] Social History Tobacco Use Types Packs/Day Years [...] do you attend hindu or Never 2018 protestant services? Do you [...] Radiology Mark Eastman M.D., M.S. [address] [place] [phone] 04/26/2022 Office Visit Otorhinolaryngology Roxanne Lanza APRN, C.N.P. [address] [place] [phone] 04/28/2022 Appointment Radiation Oncology Ursula Aguirre M.D. [address] [place] [phone] documented as of this encounter Visit Diagnoses Diagnosis Mass Adrenal (HCC) - Primary documented in this encounter
--- OUTSIDE RECORDS SUMMARY | 2022-04-07 09:44 | XMS_ITS | Encounter Summary ---
:1955 Author Organization [facility] Address [address] [place] [address] Care Team Providers Name Role Phone Unavailable Primary Care Provider Unavailable Encounter Details Date Type Department Care Team Description 03/19/2019 Clinical Communication Department of Myra Nelson Radiation Oncology in , R.N. [place], [place] [address] [facility] [address] [place] [phone] Social History Tobacco Use Types Packs/Day Years [...] do you attend mandaen or Never 2018 pentecostalism services? Do you [...] Radiology Mark Eastman M.D., M.S. [address] [place] [phone] 04/26/2022 Office Visit Otorhinolaryngology Roxanne Lanza APRN, C.N.P. [address] [place] [phone] 04/28/2022 Appointment Radiation Oncology Ursula Aguirre M.D. [address] [place] [phone] documented as of this encounter Visit Diagnoses Not on filedocumented in this encounter
--- OUTSIDE RECORDS SUMMARY | 2022-04-07 09:45 | XMS_ITS | Encounter Summary ---
:1955 Author Organization [facility] Address [address] [place] [address] Care Team Providers Name Role Phone Unavailable Primary Care Provider Unavailable Reason for Referral MRI/CAT/PET Scan (Routine) - Closed Specialty Diagnoses / Procedures Referred By Contact Refer red To Contact Radiology Diagnoses Laryngeal Disorder Hung Mabry M.D. [facility] Procedures CT Chest with IV Contrast [place] CT THORAX W CNTRST [facility] CT THORAX W CNTRST [place] CT THORAX W CNTRST 200 [place] [address] Referral ID Status Reason Start Date Expiration Date Visits Requ ested Visits Authorized [id number] Closed 02/21/2019 02/21/2020 1 1 Reason for Visit Outpatient (Routine) - Closed Specialty Diagnoses / Procedures Referred By Contact Refer red To Contact Otorhinolaryngology Diagnoses Laryngeal Disorder Darryl Marcos [place] Toño Chu [address] [place] [address] Referral ID Status Reason Start Date Expiration Date Visits Requ ested Visits Authorized [id number] Closed 02/09/2019 02/09/2020 1 1 Encounter Details Date Type Department Care Team Description 02/21/2019 Comprehensive Visit Department of Raghavendra Dhillon al Otorhinolaryngology in , Juanpablo Pulido [place], [place] Kimberley [address] [place] [phone] Social History Tobacco Use Types Packs/Day [...] do you attend christianity or Never 2018 mandaen services? Do you [...] new case. REFERRAL SOURCE Dr. Darryl Marcos [address] [place] [phone] REASON FOR CONSULT Probable squamous cell carcinoma [...] will also plan for a consultation at [facility]. Discussed with the patient and daughter likely diagnosis, the need for discontinuation of smoking, and need for further evaluation and treatment planning. CT CT Job ID: [id number]/alice TUNDET Frank Arrieta M.D. - 02/21/2019 8:00 AM CDT REF PROVIDER: Darryl Marcos M.D. [facility] [address] [place] [address] [place] [address] CHIEF COMPLAINT/PUPROSE OF VISIT: Laryngeal Mass HISTORY [...] week Gets together: Once a week Attends mandaen service: Never Active member of club or [...] is normal. OP: No masses or ulcers. Mccoy tonsilsare present and are 1+. Parotid/Neck: No masses appreciated. No palpable lymphadenopathy. Skin: No rashes or lesions. Nose: Patent, mucosa is moist. Severe left sided septal deviation STUDIO GRIP: No masses. Torus tubaris normal. Symmetric fossa [...] Radiology Mark Eastman M.D., M.S. [address] [place] [phone] 04/26/2022 Office Visit Otorhinolaryngology Roxanne Lanza, LIVE TRUCK OPERATOR, C.N.P. [address] [place] [phone] 04/28/2022 Appointment Radiation Oncology Ursula Aguirre M.D. [address] [place] [phone] documented as of this encounter Procedures Procedure Name Priority Date/Time Associated Diagnosis Comme nts SURGICAL PATHOLOGY, Routine 02/21/2019 9:19 AM Laryngeal Disor oriana Results for this [facility] CDT procedure are i n the results section. [place] PUNCH BX SKIN Routine 02/21/2019 8:00 AM [...] by CDT KMW. Report Nacho Pozo M.D. [id number] electronically I verify that I have examined all relevant slides/ma terials 10:50 AM signed by for the specimen(s) and rendered or confirmed the diagnosis. 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 ??Holdover to evaluate pe rmanent 10:50 AM Report sections. CDT Frozen section histologic interpretation performed by: Nacho Pozo M.D. [id number] Block Summary A Larynx biopsy 02/22/2019 A1 [...] City/State/ZIP Code Phon e Number [facility] - [address] [place], [place] [address] [facility] [place] PUNCH BX SKIN SINGLE LESION (02/21/2019 8:00 [...]
--- OUTSIDE RECORDS SUMMARY | 2022-04-07 09:45 | XMS_ITS | Encounter Summary ---
:1955 Author Organization [facility] Address [address] [place] [address] Care Team Providers Name Role Phone Unavailable Primary Care Provider Unavailable Reason for Referral MRI/CAT/PET Scan (Routine) - Closed Specialty Diagnoses / Procedures Referred By Contact Refer red To Contact Radiology Diagnoses Laryngeal Disorder Hung Mabry M.D. [facility] Procedures CT Chest with IV Contrast [place] CT THORAX W CNTRST HC CT THORAX W CNTRST [place] CT THORAX W CNTRST 200 [place] [address] Referral ID Status Reason Start Date Expiration Date Visits Requ ested Visits Authorized [id number] Closed 02/21/2019 02/21/2020 1 1 Reason for Visit MRI/CAT/PET Scan (Routine) - Closed Specialty Diagnoses / Procedures Referred By Contact Refer red To Contact Radiology Diagnoses Laryngeal Disorder Hung Mabry M.D. [facility] Procedures CT Chest with IV Contrast [place] CT THORAX W CNTRST [place] CT THORAX W CNTRST [place] CT THORAX W CNTRST 200 [place] [phone] Referral ID Status Reason Start Date Expiration Date Visits Requ ested Visits Authorized [id number] Closed 02/21/2019 02/21/2020 1 1 Encounter Details Date Type Department Care Team Description 02/21/2019 Hospital Encounter Department of Miguel A Mabry l Aiden RadiologyMalcom M.D. [facility], in [place], [place] [address] [place] [address] Social History Tobacco Use Types Packs/Day Years [...] do you attend methodist or Never 2018 yazidi services? Do you [...] Radiology Mark Eastman M.D., M.S. [address] [place] [phone] 04/26/2022 Office Visit Otorhinolaryngology Roxanne Lanza APRN, C.N.P. [address] [place] [phone] 04/28/2022 Appointment Radiation Oncology Ursula Aguirre M.D. [address] [place] [address] [phone] documented as of this encounter Procedures Procedure [...]
--- OUTSIDE RECORDS SUMMARY | 2022-04-07 09:45 | XMS_ITS | Encounter Summary ---
:1955 Author Organization [facility] Address [address] [place] [address] Care Team Providers Name Role Phone Unavailable Primary Care Provider Unavailable Reason for Referral Outpatient (Routine) - Closed Specialty Diagnoses / Procedures Referred By Contact Refer red To Contact Otorhinolaryngology Diagnoses Laryngeal Disorder Darryl Marcos [place] M.D. [address] [place] [address] Referral ID Status Reason Start Date Expiration Date Visits Requ ested Visits Authorized [id number] Closed 02/09/2019 02/09/2020 1 1 Encounter Details Date Type Department Care Team Description 02/09/2019 [facility] Irma Marcos [facility] Darryl Serna M.D. (Primary Dx) 1999 [facility] [address] [place] [address] [place], [place] [phone] Social History Tobacco Use Types Packs/Day Years [...] do you attend baptism or Never 2018 anabaptism services? Do you [...] Radiology Mark Eastman M.D., M.S. [address] [place] [phone] 04/26/2022 Office Visit Otorhinolaryngology Roxanne Lanza APRN, C.N.P. [address] [place] [address] 04/28/2022 Appointment Radiation Oncology Ursula Aguirre M.D. [address] [place] [phone] Scheduled Referrals Name Type Priority Associated Order [...]
--- NOTE | 2022-04-07 10:15 | CRLHL7_ITS ---
For Patients: As a result of the Century Cures Act, medical imaging exams and procedure reports are released immediately into your electronic medical record. You may view this report before your referring provider. If you have questions, please contact your health care provider. ULTRASOUND-GUIDED VACUUM-ASSISTED BREAST BIOPSY AND POST-BIOPSY DIGITAL MAMMOGRAM FOR BIOPSY MARKER PLACEMENT CLINICAL HISTORY: Indeterminate nodule. COMPARISON STUDIES: 04/05/2022. TECHNIQUE: Real-time ultrasound with image documentation was used for targeting the breast lesion. A vacuum-assisted biopsy system was used to obtain core tissue samples with a 10-gauge probe. Post-biopsy CC and ML digital mammograms were obtained to document position of the biopsy marker. CONSENT and TIME OUT: The procedure, risks, and alternatives were explained to the patient and a consent was signed. [place] Protocol was followed including pre-procedure verification that relevant information/documentation was available, reviewed and properly matched to the patient; consent accurate and complete; and equipment and supplies available. Time Out was conducted just prior to starting procedure to verify the four required elements: patient identity, correct side/site marked (if applicable), procedure, relevant images/results properly labeled and displayed (if applicable). PROCEDURE: The patient was positioned supine on the ultrasound table. The breast was prepped with ChloraPrep. 8 cc 1 percent lidocaine used for local anesthesia. Core samples were obtained. A sterile metal clip was placed percutaneously to samuel the lesion position within the breast. The specimens were placed in 10% formalin and sent to the Pathology Department. Pressure was held on the biopsy site until all bleeding subsided. The skin incision was closed with Steri-Strips. An ice pack was positioned over the biopsy site. The patient tolerated the procedure well. Post-biopsy instructions were reviewed with the patient, and a written copy was given to her. LATERALITY: LEFT. LESION: Hypoechoic structure 7 o`clock 3 cm from the nipple measuring 4 x 4 x 5 millimeters. SUSPICION FOR MALIGNANCY: Low. NUMBER OF SAMPLES: 5. BIOPSY CLIP SHAPE: Oval. PROXIMITY OF CLIP TO TARGET: Within the lesion. IMPRESSION: Ultrasound-guided breast biopsy. When the pathology report is available, an addendum to this report will be made. ACR not applicable A lay language report of this examination will be provided to the patient. Dictated by Dorian Lopez MD @ 04/07/2022 11:32:05 AM jj/Dictated by: Dorian Lopez MD @ 04/07/2022 11:32:00 AM (Electronically Signed) ----- ADDENDUM ----- IMPRESSION: Pathology consistent with fibro fatty breast tissue and arthritic fibrocystic change, this is concordant. No atypia or malignancy. Resume annual bilateral screening mammography. Dictated by Dorian Lopez MD @ Apr 07 2022 11:32AM (Electronic Signature)
--- NOTE | 2022-04-07 10:45 | CRLHL7_ITS ---
For Patients: As a result of the Cures Act, medical imaging exams and procedure reports are released immediately into your electronic medical record. You may view this report before your referring provider. If you have questions, please contact your health care provider. PLEASE SEE ULTRASOUND-GUIDED LEFT BIOPSY PERFORMED SAME DAY CRL:jose luis amaya/Dictated by: Dorian Lopez MD @ 04/07/2022 11:32:00 AM (Electronically Signed)
== END 2022-04-07 09:33 | disposition home or self-care (01) ==
PROVIDERS: PCP Internal Medicine; Visit Provider Internal Medicine
DX: R92.8 Other abnormal and inconclusive findings on diagnostic imaging of breast (principal)
CPT/HCPCS: 19083; 77065; 88305; A4648; A4649; G0279

== ENCOUNTER 2023-05-05 08:13 | Outpatient (CLI) | payer MEDICARE, BC, SELFPAY | END 2023-05-05 08:14 | disposition home or self-care (01) | PROVIDERS: PCP Internal Medicine; Visit Provider Internal Medicine | DX: E66.9 Obesity, unspecified (principal); I10 Essential (primary) hypertension; E11.9 Type 2 diabetes mellitus without complications; E03.9 Hypothyroidism, unspecified; E78.5 Hyperlipidemia, unspecified; F41.9 Anxiety disorder, unspecified | CPT/HCPCS: 80053; 80061; 82043; 82570; 84443 ==